=== PATIENT | male | born 1950 | race Caucasian/White ===

== ENCOUNTER 2023-06-22 09:53 | Outpatient (OUT) | payer MEDICARE, SELFPAY ==
[2023-06-22 11:32] LABS: Prostate Specific Antigen Dx 0.48 ng/mL (<=4.00)
== END 2023-06-22 09:54 | disposition home or self-care (01) ==
PROVIDERS: PCP Family Medicine; Visit Provider Urology
DX: N40.1 Benign prostatic hyperplasia with lower urinary tract symptoms (principal)
CPT/HCPCS: 36415; 84153

== ENCOUNTER 2023-10-08 15:16 | Outpatient (OUT) | payer MEDICARE, SELFPAY ==
--- NOTE | 2023-10-08 | XR_ITS ---
The [address] [address] Patient Name: KAVITA AUSTIN MRN: [id number] date: 1950 Sex: M Assigned Patient Location: [facility] Current Patient Location: Accession/Order Number: [id number] Exam Date: 10/08/2023 15:28 Report Date: 10/09/2023 01:13 At the request of: BARBIE CANSECO Procedure: XR foot LT min 3V PROCEDURE: XR foot LT min 3V HISTORY: LEFT FOOT PAIN COMPARISON: XR foot left 12/18/2022 FINDINGS: BONES:Mechanical fusion the first metatarsophalangeal joint via dorsal plate and screws. Prior fracture of proximal aspect of the plate has now shifted approximately 1 mm. Single screw within head of second metatarsal. Resection of head of second proximal phalanx. SOFT TISSUES:No visible soft tissue swelling. EFFUSION:None visible. OTHER: Negative. XR/XR foot LT min 3V IMPRESSION: 1. Minimal displacement of known surgical plate fracture. Electronically authenticated by: RAZ MATOS Date: 10/09/2023 01:13
--- OUTSIDE RECORDS SUMMARY | 2023-11-12 19:30 | XMS_ITS | CCD ---
Author Name Unknown Address [address] [place] [address] Organization [facility] Care Team Providers Care Yarn Washer Name Role Phone [facility]TH [place]AP[place] Primary Care Physician DO Miguel Astorga Attending Provider MD [place] Primary Care Provider [phone] Miguel Astorga Admitting Unavailable [place] Primary Care Unavailable Miguel Astorga Attending Unavailable Miriam Carpenter Attending Unavailable Miriam Carpenter Admitting Unavailable Naderelisa, North Primary Care Unavailable Miguel Astorga Attending Unavailable Miguel Astorga Admitting Unavailable MD Miriam Carpenter Attending Provider MODESTO ROCHE Attending Unavailable MODESTO ROCHE Admitting Unavailable BRAYDON, DR MARÍA Danielle Consulting Unavailable NADERELisa, DR NORTH Hines Primary Care Unavailable MODESTO ROCHE Consulting Unavailable SOLARES ., DR HURST Attending Unavailable SOLARES ., DR HURST Admitting Unavailable NADERER, DR NORTH Hines Primary Care Unavailable SOLARES ., DR HURST Consulting Unavailable BARBIE CANSECO Consulting Unavailable BARBIE CANSECO Attending Unavailable BARBIE CANSECO Admitting Unavailable NADERER, DR NORTH Hines Primary Care Unavailable NADERER, DR NORTH Hines Attending Unavailable NADERER, DR NORTH Hines Admitting Unavailable NADERER, DR NORTH Hines Primary Care Unavailable WEST, DR MARÍA Danielle Consulting Unavailable TAVARES, DR NORTH Hines Consulting Unavailable BARBIE CANSECO Attending Unavailable BARBIE CANSECO Admitting Unavailable NADERER, DR NORTH Hines Primary Care Unavailable MATTHIAS DE DIOS Attending Unavailable MARIA A .MATTHIAS Admitting Unavailable NADERELisa, DR NORTH Hines Primary Care Unavailable JOCELYN LOVE Consulting Unavailable MARIA A ., MATTHIAS Consulting Unavailable ASMITA CLARK Consulting Unavailable BARBIE CANSECO Attending Unavailable HIGHLANDER, BARBIE Chávez Admitting Unavailable NADERER, DR NORTH Hines Primary Care Unavailable WEST, DR MARÍA Danielle Consulting Unavailable HIGHLANDER, BARBIE Chávez Consulting Unavailable BLAKE ., LAW FAIR Consulting Unavailable MORMICHEL, LOUANN Consulting Unavailable MARC, WILMAR MULLINS Consulting Unava dav FLOOD, ROBBY Palmer Consulting Unavailable NADERER, DR NORTH Hines Primary Care Unavailable GRECHNY ., MORIS FISHER Consulting Unavailabl e REINECK, DR ESAU Mccauley Admitting Unavailabl e REINECK, DR ESAU Mccauley Attending Unavailabl e NADERER, DR NORTH Hines Consulting Unavailable NADERER, DR NORTH Hines Attending Unavailable NADERER, DR NORTH Hines Admitting Unavailable NADERER, DR NORTH Hines Primary Care Unavailable ZIEBER, DR RAZ Gonzalez Consulting Unavailable KALEY, MODESTO Attending Unavailable KALEY, MODESTO Admitting Unavailable NADERER, DR NORTH Hines Primary Care Unavailable KALEY, MODESTO Consulting Unavailable KALEY, MODESTO Admitting Unavailable NADERER, DR NORTH Hines Primary Care Unavailable KALEY, MODESTO Attending Unavailable WEST, DR MARÍA Danielle Consulting Unavailable KALEY, MODESTO Consulting Unavailable HIGHLANDER, BARBIE Chávez Attending Unavailable NADERER, DR NORTH Hines Primary Care Unavailable HIGHLANDER, BARBIE Chávez Admitting Unavailable WEST, DR MARÍA Danielle Consulting Unavailable HIGHLANDER, BARBIE Chávez Consulting Unavailable NADERER, DR NORTH Hines Primary Care Unavailable NADERER, DR NORTH Hines Consulting Unavailable NADERER, DR NORTH Hiens Attending Unavailable NADERER, DR NORTH Hines Admitting Unavailable KALEY, MODESTO Admitting Unavailable NADERER, DR NORTH Hines Primary Care Unavailable KALEY, MODESTO Attending Unavailable ZIEBER, DR RAZ Gonzalez Consulting Unavailable KALEY, MODESTO Consulting Unavailable KALEY, MODESTO Admitting Unavailable NADERER, DR NORTH Hines Primary Care Unavailable KALEY, MODESTO Attending Unavailable ZIEBER, DR RAZ Gonzalez Consulting Unavailable KALEY, MODESTO Consulting Unavailable Natali SOLARES Attending Unavailable ESEQUIEL, Natali Gonzalez Attending Unavailable BRENNAN, TIAGO Admitting Unavailable BRENNAN, TIAGO Attending Unavailable BARAZI, ANUPAM Attending Unavailable BRENNAN, TIAGO Attending Unavailable BARAZI, ANUPAM Attending Unavailable BARAZI, ANUPAM Attending Unavailable Allergies Allergy Classification Reported Allergen(s) Allergy Type Date of Onset Reaction(s) Facility (1 source) No Known Medication Allergies; Translations: [No Known Medication Allergies] Propensity to adverse reactions (disorder) [facility] Repository Medications Current Medications Medication Drug Class(es) Dates Sig (Normalized) Sig (Original) Aspirin (2 sources) Platelet Aggregation Inhibitor, Nonsteroidal Anti-inflammatory Drug Start: 10-28-2019 aspirin 325 mg, Refills(s) 0 Start Date: 10/28/19 Status: Ordered 24 hr dilTIAZem hydrochloride 180 mg extended release oral tablet (4 sources) Calcium Channel Neeta Start: 04-19-2022 take 180 mg by mouth once daily Diltiazem Hcl Active 180 MG PO Daily April 19, 2022 3:23pm Start: 10-28-2019 Diltiazem Dilt iazem Start Date: 10/28/19 Status: Ordered DilTIAZem (Eqv-Dilacor XR) 180 mg/24 hours oral capsule, extended release (1 source) Start: 06-24-2023 DilTIAZem (Eqv-Dilacor XR) 180 mg/24 hours oral capsule, extended release Refills(s) 0 Start Date: 06/24/23 Status: Ordered doxepin hydrochloride 50 mg oral capsule (5 sources) Tricyclic Antidepressant Start: 04-19-2022 take 50 mg by mouth once daily at bedtime Doxepin Active 50 MG PO Daily at bedtime April 19, 2022 3:23pm Start: 08-21-2021 doxepin 25 mg Cap Refills(s) 0 Start Date: 08/21/21 Status: Ordered [facility] (3 sources) Start: 04-19-2022 take 1 capsule by mo [facility] once daily [facility] Active 1 CAP PO Daily April 19, 2022 3:23pm Start: 04-19-2022 take 1 capsule by mouth once d aily [facility] Active 1 CAP PO Daily April 19, 2022 12:00am finasteride 5 mg oral tablet (5 sources) 5-alpha Reductase Inhibitor Start: 09-05-2022 take 1 tablet by mouth once daily finasteride 5 mg Tab 5 mg = 1 tab(s), Oral, Daily, # 90 tab(s), Refills(s) 3, Pharmacy: [facility], 189, cm, 05/07/22 14:58:00 EDT, Height/Length Dosing, 129, kg, 05/07/22 14:58:00 EDT, Weight Dosing Start Date: 09/05/22 Status: Ordered Start: 08-31-2021 End: 08-26-2022 take 5 mg by mouth once daily Finasteride Active 5 MG PO Daily April 19, 2022 12:00am potassium citrate 99 mg oral tablet (3 sources) Start: 04-19-2022 take 99 mg by mouth at bedtime Potassium Citrate Active 99 MG PO Bedtime April 19, 2022 3:23pm rOPINIRole 2 mg oral tablet (5 sources) Nonergot Dopamine Agonist Start: 04-19-2022 take 2 mg by mouth once daily at bedtime Ropinirole Active 2 MG PO Daily at bedtime April 19, 2022 3:23pm Start: 10-28-2019 ropinirole 1 m g, Oral, Refills(s) 0 Start Date: 10/28/19 Status: Ordered sildenafil 100 mg oral tablet (1 source) Phosphodiesterase 5 Inhibitor Start: 05-07-2022 take 1 tablet by mouth once daily Viagra 100 mg Tab 100 mg = 1 tab(s), Oral, Daily, Take 1 hour prior to sexual relations, # 30 tab(s), Refills(s) 2, [facility]: [facility], 189, cm, 05/07/22 14:58:00 EDT, Height/Length Dosing, 129, kg, 05/07/22 14:58:00 EDT, Weight Dosing Start Date: 05/07/22 Status: Ordered tadalafil 20 mg oral tablet (1 source) Phosphodiesterase 5 Inhibitor Start: 06-24-2023 take 1 tablet by mouth once daily Cialis 20 mg Tab 20 mg = 1 tab(s), Oral, Daily, # 39 tab(s), Refills(s) 2, Pharmacy: [id number], 189, cm, 05/07/22 14:58:00 EDT, Height/Length Dosing, 107, kg, 06/24/23 15:49:00 EDT, Weight Dosing Start Date: 06/24/23 Status: Ordered tamsulosin hydrochloride 0.4 mg oral capsule (5 sources) alpha-Adrenergic Neeta Start: 04-02-2023 take 1 capsule by mouth once daily Flomax 0.4 mg Cap 0.4 mg = 1 cap(s), Oral, Daily, # 90 cap(s), Refills(s) 3, Pharmacy: [facility], 189, cm, 05/07/22 14:58:00 EDT, Height/Length Dosing, 129, kg, 05/07/22 14:58:00 EDT, Weight Dosing Start Date: 04/02/23 Status: Ordered Start: 04-06-2022 take 0.4 mg by mouth once frank y Tamsulosin Active 0.4 MG PO Daily April 19, 2022 12:00am Problems Active Problems Problem Classification Problem Date Documented Date Episodic/Chronic Acquired foot deformities (7 sources) Hallux rigidus, left foot; Translations: [Other hammer toe(s) (acquired), left foot] Onset: 10-08-2022 Chronic Cardiac dysrhythmias (6 sources) Atrial fibrillation; Translations: [Paroxysmal atrial fibrillation] Onset: 12-10-2022 10-28-2019 Chronic Diabetes mellitus without complication (4 sources) Prediabetes; Translations: [PREDIABETES] Onset: 03-06-2023 Episodic Disorders of lipid metabolism (1 source) Hyperlipidemia, unspecified; Translations: [HYPERLIPIDEMIA UNSPECIFIED] Onset: 03-11-2023 Chronic Esophageal disorders (1 source) Gastro-esophageal reflux disease without esophagitis; Translations: [GERD WITHOUT ESOPHAGITIS] Onset: 12-10-2022 Chronic Heart valve disorders (1 source) Rheumatic disorders of both mitral and tricuspid valves; Translations: [RHEUMATIC D/O MITRAL TRICUSPID VALV] Onset: 03-17-2023 Chronic Hyperplasia of prostate (6 sources) Benign prostatic hypertrophy with outflow obstruction; Translations: [Benign prostatic hyperplasia with lower urinary tract symptoms] Onset: 05-03-2022 Chronic Inflammatory conditions of male genital organs (4 sources) Chronic prostatitis; Translations: [Chronic prostatitis] Onset: 05-07-2022 Chronic Inflammatory conditions of male genital organs (2 sources) Epididymitis 10-28-2019 Episodic Osteoarthritis (1 source) Unspecified osteoarthritis, unspecified site; Translations: [UNSPECIFIED OSTEOARTHRITIS UNS SITE] Onset: 12-10-2022 Chronic Other aftercare (1 source) Other half-way (current) drug therapy; Translations: [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 THERAPY] Onset: 03-11-2023 Episodic Other connective tissue disease (1 source) Presence of right artificial hip joint; Translations: [PRESENCE RIGHT ARTIFICIAL HIP JOINT] Onset: 12-10-2022 Chronic Other diseases of kidney and ureters (1 source) Urinary tract obstruction; Translations: [Other obstructive and reflux uropathy] Onset: 05-07-2022 Episodic Other diseases of veins and lymphatics (2 sources) Varicocele 10-28-2019 Episodic Other hereditary and degenerative nervous system conditions (1 source) Restless legs syndrome; Translations: [RESTLESS LEGS SYNDROME] Onset: 12-10-2022 Chronic Other male genital disorders (6 sources) Male erectile dysfunction, unspecified; Translations: [Erectile dysfunction] Onset: 04-27-2022 Chronic Other male genital disorders (2 sources) Impotence 10-30-2019 Chronic Other male genital disorders (2 sources) Impotence of organic origin 10-28-2019 Chronic Other male genital disorders (2 sources) Pain in testicle 10-30-2019 Episodic Other nutritional; endocrine; and metabolic disorders (1 source) Obesity, unspecified; Translations: [OBESITY UNSPECIFIED] Onset: 03-11-2023 Chronic Residual codes; unclassified (1 source) Obstructive sleep apnea (adult) (pediatric); Translations: [OBSTRUCTIVE SLEEP APNEA] Onset: 12-10-2022 Chronic Residual codes; unclassified (4 sources) Family history of malignant neoplasm of kidney; Translations: [Family history of malignant neoplasm of kidney] Onset: 05-07-2022 Episodic Residual codes; unclassified (2 sources) H/O: anticoagulant therapy 10-30-2019 Episodic Syncope (1 source) Syncope and collapse; Translations: [SYNCOPE AND COLLAPSE] Onset: 03-17-2023 Episodic Unclassified (1 source) Infection following a procedure, other surgical site, initial encounter; Translations: [Infection following a procedure, other surgical site, initial encounter] Onset: 03-18-2023 Unclassified (1 source) Z42.8 - Encounter for other plastic and reconstructive surgery following medical procedure or healed injury; Translations: [Z42.8 - Encounter for other plastic and reconstructive surgery following medical procedure or healed injury] Onset: 04-20-2022 Unclassified (1 source) Z01.812 - Encounter for preprocedural laboratory examination; Translations: [Z01.812 - Encounter for preprocedural laboratory examination] Onset: 04-19-2022 Unclassified (1 source) PERSONAL HISTORY OF COVID-19; Translations: [PERSONAL HISTORY OF COVID-19] Onset: 12-10-2022 Unclassified (4 sources) CONTACT W/AND (SUSP) EXPOS COVID-19; Translations: [CONTACT W/AND (SUSP) EXPOS COVID-19] Onset: 06-06-2022 Unclassified (2 sources) Other persistent atrial fibrillation; Translations: [Other persistent atrial fibrillation] Onset: 02-01-2023 Past or Other Problems Problem Classification Problem Date Documented Date Episodic/Chronic Complications of surgical procedures or medical care (4 sources) Pseudarthrosis after fusion or arthrodesis; Translations: [PSEUDARTHROSIS AFTER FUS/ARTHRODSIS] Onset: 12-20-2022 Episodic Conditions associated with dizziness or vertigo (6 sources) Dizziness and giddiness; Translations: [DIZZINESS AND GIDDINESS] Onset: 03-08-2023 Episodic E Codes: Cut/pierceb (1 source) Contact with workbench tool, initial encounter; Translations: [CONTACT W/WORKBENCH TOOL INIT ENC] Onset: 12-10-2022 Episodic Immunizations and screening for infectious disease (1 source) Encounter for immunization; Translations: [ENCOUNTER FOR IMMUNIZATION] Onset: 12-10-2022 Episodic Open wounds of extremities (4 sources) Laceration without foreign body of left thumb without damage to nail, initial encounter; Translations: [LAC NO FB LT THUMB NO DMG NAIL INIT] Onset: 12-06-2022 Episodic Other aftercare (1 source) [facility] (current) use of aspirin; Translations: [RETIREMENT CURRENT USE OF ASPIRIN] Onset: 12-10-2022 Episodic Other and unspecified benign neoplasm (1 source) Personal history of colonic polyps; Translations: [PERSONAL HISTORY OF COLONIC POLYPS] Onset: 12-10-2022 Episodic Other connective tissue disease (5 sources) Pain in left foot; Translations: [PAIN IN LEFT FOOT] Onset: 10-08-2022 Episodic Other connective tissue disease (4 sources) Pain in right foot; Translations: [PAIN IN RIGHT FOOT] Onset: 08-01-2022 Episodic Other connective tissue disease (1 source) Arthrodesis status; Translations: [ARTHRODESIS STATUS] Onset: 05-17-2022 Episodic Unclassified (1 source) CONTACT W/AND (SUSP) EXPOS COVID-19; Translations: [CONTACT W/AND (SUSP) EXPOS COVID-19] Onset: 06-04-2022 Results Test Name Value Interpretation Reference Range Facil ity Office Visiton 07-30-2023 Follow-up visit [id number] Hannah Manuel 1950 M Date Provider Department Center 07/30/2023 Vandana-ANUPAM [facility] Family History Problem Relation Age of Onset Other Mother Coronary artery disease Mother Other Father Family Status - Relation Status Age at Mother Father Level of Service:56474 GA OFFICE/OUTPATIENT ESTABLISHED LOW MDM 20-29 MIN Normal [facility] Lab Reportson 06-25-2023 Lab Reports [id number] D:127 Normal [facility] Ambulatory Visit Summaryon 0 06-24-2023 Ambulatory Visit Summary OSCAR MANUEL :1950 Visit Date:06/24/2023 Ambulatory Visit Instructions Your Diagnosis BPH with obstruction/lower urinary tract symptoms Chronic prostatitis Family history of kidney cancer Organic impotence Tests Performed Urnls Dip Stick Auto w/o Microscopy POC 16016 Your Care Team Attending Physician - ESEQUIEL RUSSELL, Natali Gonzalez Primary Care Physician - NORTH CHAPIN MD This Is Your Medications List finasteride (finasteride 5 mg Tab) tadalafil (Cialis 20 mg Tab) tamsulosin (Flomax 0.4 mg Cap) Contact prescribing physician if questions or concerns aspirin diltiazem (DilTIAZem (Eqv-Dilacor XR) 180 mg/24 hours oral capsule, extended release) doxepin (doxepin 25 mg Cap) ropinirole [Image Removed: STOP]Stop taking these medications sildenafil (Viagra 100 mg Tab) Procedures Performed Colonoscopy, Foot, Hip replacement, Removal of Basal Cell on Nose, Repair of inguinal hernia, Titanium Plate Left Arm, Tonsillectomy with adenoidectomy. What to do next Scheduled Follow-Up Appointments Saturday 3:00 PM EDT With: ESEQUIEL RUSSELL, Natali Gonzalez Where: [facility] Patient Educationon 06-24-20 23 Patient Education Urology Benign Prostatic Hyperplasia Benign prostatic hyperplasia (BPH) is an enlarged prostate gland that is caused by the normal aging process. The prostate may get bigger as a man gets older. The condition is not caused by cancer. The prostate is a walnut-sized gland that is involved in the production of semen. It is located in front of the rectum and below the bladder. The bladder stores urine. The urethra carries stored urine out of the body. An enlarged prostate can press on the urethra. This can make it harder to pass urine. The buildup of urine in the bladder can cause infection. Back pressure and infection may progress to bladder damage and kidney (renal) failure. What are the causes? This condition is part of the normal aging process. However, not all men develop problems from this condition. If the prostate enlarges away from the urethra, urine flow will not be blocked. If it enlarges toward the urethra and compresses it, there will be problems passing urine. What increases the risk? This condition is more likely to develop in men older than 50 years. What are the signs or symptoms? Symptoms of this condition include: ? Getting up often during the night to urinate. ? Needing to urinate frequently during the day. ? Difficulty starting urine flow. ? Decrease in size and strength of your urine stream. ? Leaking (dribbling) after urinating. ? Inability to pass urine. This needs immediate treatment. ? Inability to completely empty your bladder. ? Pain when you pass urine. This is more common if there is also an infection. ? Urinary tract infection (UTI). How is this diagnosed? This condition is diagnosed based on your medical history, a physical exam, and your symptoms. Tests will also be done, such as: ? A post-void bladder scan. This measures any amount of urine that may remain in your bladder after you finish urinating. ? A digital rectal exam. In a rectal exam, your health care provider checks your prostate by putting a lubricated, gloved finger into your rectum to feel the back of your prostate gland. This exam detects the size of your gland and any abnormal lumps or growths. ? An exam of your urine (urinalysis). ? A prostate specific antigen (PSA) screening. This is a blood test used to screen for prostate cancer. ? An ultrasound. This test uses sound waves to electronically produce a picture of your prostate gland. Your health care provider may refer you to a specialist in kidney and prostate diseases (urologist). How is this treated? Once symptoms begin, your health care provider will monitor your condition (active surveillance or watchful waiting). Treatment for this condition will depend on the severity of your condition. Treatment may include: ? Observation and yearly exams. This may be the only treatment needed if your condition and symptoms are mild. ? Medicines to relieve your symptoms, including: ? Medicines to shrink the prostate. ? Medicines to relax the muscle of the prostate. ? Surgery in severe cases. Surgery may include: ? Prostatectomy. In this procedure, the prostate tissue is removed completely through an open incision or with a laparoscope or robotics. ? Transurethral resection of the prostate (TURP). In this procedure, a tool is inserted through the opening at the tip of the penis (urethra). It is used to cut away tissue of the inner core of the prostate. The pieces are removed through the same opening of the penis. This removes the blockage. ? Transurethral incision (TUIP). In this procedure, small cuts are made in the prostate. This lessens the prostate's pressure on the urethra. ? Transurethral microwave thermotherapy (TUMT). This procedure uses microwaves to create heat. The heat destroys and removes a small amount of prostate tissue. ? Transurethral needle ablation (TUNA). This procedure uses radio frequencies to destroy and remove a small amount of prostate tissue. ? Interstitial laser coagulation (ILC). This procedure uses a laser to destroy and remove a small amount of prostate tissue. ? Transurethral electrovaporization (TUVP). This procedure uses electrodes to destroy and remove a small amount of prostate tissue. ? Prostatic urethral lift. This procedure inserts an implant to push the lobes of the prostate away from the urethra. Follow these instructions at home: ? Take [id number]-rbddsbd and prescription medicines only as told by your health care provider. ? Monitor your symptoms for any changes. Contact your health care provider with any changes. ? Avoid drinking large amounts of liquid before going to bed or out in public. ? Avoid or reduce how much caffeine or alcohol you drink. ? Give yourself time when you urinate. ? Keep all follow-up visits. This is important. Contact a health care provider if: ? You have unexplained back pain. ? Your symptoms do not get better with treatment. ? You develop side effects from the medicine (more content not included)... Normal [facility] Reminderson 06-24-2023 Reminders - From: Katheryn Fernandez To: ALEXANDRA Solares; Sent: 06/24/2023 16:41:34 EDT Show up: 05/24/2024 16:41:00 EDT Subject: PSA Reminder Message Please Remember to:_have pt get PSA (done at [facility]) prior to appt. Normal [facility] Urology Office/Clinic Noteon 06-24-2023 Urology Office/Clinic Note Chief Complaint 1yr HPI Staff 1yr PSA DX: Chronic Prostatitis, BPH, Family Hx of Kidney Cancer (father) & Organic Impotence. *Tamsulosin 0.4mg QD & Finasteride 5mg QD therapy. Viagra 100mg PRN at time of last encounter. PSA 06/22/23- 0.48 Denies pain/burning and visible blood in urine. Denies prostate infection since last encounter. OK with Viagra therapy. Has tried generic Cialis in past, thinks that worked better. Would like to try again. (Cialis 20mg PRN 10/30/19.... took until 08/21/21 when he was started on 4P injections-pt did not like injections. He did not use.) Denies all other concerns at this time. History of Present Illness Tests reviewed: reviewed UA, PSA I have reviewed the previous health record information and history for this patient from Dr. Solares. I have reviewed and verified the staff HPI to be accurate for this encounter. There have been no associated fever, chills, flank pain, or blood in the urine. Denies any urinary infections since last encounter. Review of Systems PHQ Score Initial Depression Screen Score: 0 ROS - Provider Constitutional: denies weight loss, denies hot flashes. Eyes: denies eye problems. Gastrointestinal: denies nausea, denies vomiting. Cardiovascular: denies chest pain or angina. Integumentary: no dryness Musculoskeletal: denies musculoskeletal symptoms. ENMT: denies otolaryngeal symptoms. Respiratory: no shortness of breath. Heme/Lymph: denies easy bleeding tendency, denies easy bruising tendency. Psychiatric: no confusion, no anxiety. Genitourinary: See HPI. Physical Exam General Appearance: alert, no distress, well nourished, well developed male. Genitourinary: normal scrotum, normal testes, normal urethra, normal epididymis, normal vas deferens/spermatic cord. Flank Pain: none. Bladder: nonpalpable. Prostate: normal prostate, estimated weight 40 gms, no hard nodule observed. Assessment/Plan 1. BPH with obstruction/lower urinary tract symptoms (N40.1: Benign prostatic hyperplasia with lower urinary tract symptoms) Pt is currently taking Tamsulosin 0.4mg QD and Finasteride 5mg QD. Denies any bothersome urinary complications at this time. UA today negative for blood and infection. Denies family hx of prostate ca. PSA 05/09/21 - 0.70 04/27/22 - 0.49 (Finasteride 0.98) 06/22/23 - 0.48 (Finasteride 0.96) Follow up in 1 year with PSA. 2. Chronic prostatitis (N41.1: Chronic prostatitis) Denies any recent infections. UA today negative for blood and infection. 3. Family history of kidney cancer (Z80.51: Family history of malignant neoplasm of kidney) Father 4. 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 Pt is currently wishes to take Cialis 20mg PRN. Refill sent to pharmacy. All questions/concerns were discussed. Pt to call the office if he encounters any issues prior. Pt acknowledges understanding. Follow-up With When Contact Information ESEQUIEL RUSSELL, Natali Gonzalez, URL [facility] [address], [place] [address]- [phone] Additional Instructions: 1 yr w/ PSA Patient Education Benign Prostatic Hyperplasia I, Katheryn Fernandez, personally scribed for Dr. Solares on 06/24/2023 16:39:21. . Documentation recorded by the scribe, Katheryn Fernandez, accurately reflects the services(s) I performed and decisions made by me. Authenticated by Dr. Solares on 06/24/2023 16:41:10. 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 Medications aspirin, 325 mg DilTIAZem (Eqv-Dilacor XR) 180 mg/24 hours oral capsule, extended release doxepin 25 mg Cap finasteride 5 mg Tab, 5 mg= 1 tab(s), Oral, Daily, 3 refills Flomax 0.4 mg Cap, 0.4 mg= 1 cap(s), Oral, Daily, 3 refills ropinirole, 1 mg, Oral Viagra 100 mg Tab, 100 mg= 1 tab(s), Oral, Daily, 2 refills Allergies No Known Medication Allergies Social History Alcohol - Low Risk, 10/28/2019 Tobacco Never (less than 100 in lifetime) Tobacco Use:. Never Smokeless Tobacco Use:. Household tobacco concerns: No., 06/24/2023 Family History Breast: Mother. Kidney Cancer: Father. Kidney stones: Negative: Mother, Father, Sister and Brother. Primary malignant neoplasm of female breast: Mother. Renal cancer: Father. Immunizations Vaccine Date Status Comments influenza virus vaccine, inactivated 09/02/2022 Recorded SARS-CoV-2 (COVID-19) mRNA BNT-16 (more content not included)... Normal [facility] Comment on above: Result Comment: Elec tronically Signed By: Natali SOLARES MD\.br\Date and Time Signed: 06/24/23 16:41 EDT\.br\Electronically Co-Signed By: Katheryn Fernandez\.br\Date and Time Co-Signed: 06/24/23 16:39 EDT Superficial Wound Cultureon 03-18-2023 Superficial Wound Culture ORGANISM: Methicillin Resis Staph Aureus (O:MRSA) Quantity of Growth Moderate Growth Aerobic DEXTER Charge (PCMIC38) SUSCEPTIBILITY ORGANISM: O:MRSA ANTIBIOTIC INTERPRETATION DEXTER Azithromycin R >4 Ceftaroline S <0.5 Ciprofloxacin R >2 Clindamycin R <0.25 Daptomycin S <0.5 Linezolid S 4 Oxacillin R >2 Penicillin R >2 Tetracycline S <4 Trimethoprim/Sulfamethoxazole S <0.5 Vancomycin S 1 S = SUSCEPTIBLE I = INTERMEDIATE R = RESISTANT BLANK = DATA NOT AVAILABLE, OR DRUG NOT ADVISABLE OR TESTED R* = RESISTANCE DUE TO EXTENDED SPECTRUM BETA-LACTAMASES ESBL = EXTENDED SPECTRUM BETA-LACTAMASE TFG = THYMIDINE-DEPENDENT STRAIN JULIANNA = BETA-LACTAMASE POSITIVE IB = INDUCIBLE BETA-LACTAMASE. APPEARS IN PLACE OF 'S' WITH SPECIES KNOWN TO POSSESS INDUCIBLE BETA-LACTAMASES. POTENTIALLY THEY MAY BECOME RESISTANT TO ALL B-LACTAM DRUGS. PERFORMED BY: [place] [address] PATHOLOGIST ASSISTANT ART DIRECTOR ISABELLA MCKEON M.D. [facility] Comment on above: Performed By: #### C USUP #### [address] ECHOCARDIO M/2D COMPLETEon 0 03-12-2023 ECHOCARDIO M/2D COMPLETE Patient: OSCAR PATEL Exam Date: 03/12/2023 : 1950 Gender:M Ordering : DR NORTH CHAPIN . Admission #: [id number] Family : TIAGO WILBURN MD Order #: [id number] CLICK HERE TO VIEW EXAM ECHOCARDIOGRAM REPORT PROCEDURE: CARDIO PULMONARY ECHOCARDIO M/2D COMP INDICATIONS: Dizziness with near syncope, atrial fibrillation COMPARISON: None. DESCRIPTION: COMPLETE ECHOCARDIOGRAM Real-time transthoracic echocardiography with 2D, M-mode, spectral and color flow Doppler performed. QUALITY: Technical quality was good. LEFT VENTRICLE: Normal chamber size. Proximal septal hypertrophy (sigmoid septum). Normal systolic function. LV EF: Normal left ventricular ejection fraction, (>55%). DIASTOLIC: Normal diastolic function. ATRIAL SEPTUM: LEFT ATRIUM: Moderate dilatation. RIGHT ATRIUM: Moderate dilatation. RIGHT VENTRICLE: Mild dilatation. Normal right ventricular systolic function. TRICUSPID VALVE: Normal mobility and thickness. No stenosis with mild regurgitation. No evidence of pulmonary hypertension. RVSP 28 mmHg MITRAL VALVE: Normal mobility and thickness. No evidence of mitral valve stenosis. There is no mitral annular calcification. Mild mitral regurgitation. AORTIC VALVE: Normal trileaflet appearance. Thickened aortic valve. Normal leaflet mobility. No evidence of aortic valve stenosis. No aortic regurgitation. AORTIC ROOT: Normal diameter and appearance. Aortic sinuses are dilated (4.0 cm) PULMONIC VALVE: Normal thickness and mobility. No stenosis. No regurgitation. PERICARDIUM: No evidence of pericardial effusion. IVC: Collapses with inspirations. IVC is normal in size. PLEURA: CONCLUSION: 1. Normal left ventricular systolic function. LVEF is 55 to 60%. 2. Mildly dilated right ventricle with normal systolic function. 3. Moderate biatrial dilatation. 4. Mild mitral and tricuspid regurgitation. 5. Normal diastolic function. 6. Normal right-sided pressures. 7. The aortic root is mildly dilated measuring 4.0 cm. Adult Echocardiography Procedure Report Left Ventricle LVEDD (3.7 - 5.6 cm): 4.68 cm LVESD (2.2 - 4.0 cm): 3.32 cm LVIVS thickness (0.6 - 1.2 cm): 1.69 cm LVPW thickness (0.5 - 1.0 cm): 0.99 cm e': 0.13 m/s E - e': 6.58 LVOT Max Gradient: 4.37 mm[Hg] Peak Velocity (LVOT): 1.05 m/s Mean Velocity (LVOT): 0.62 m/s LVOT Diameter 2.49 cm Left Ventricular Ejection Fraction: 55-60 % Left Atrium LA Volume Index (2D A2C): 100.46 ml, 100.46 ml Left Atrium Systolic Dimension: 5.00 cm Mitral Valve MV E to A Ratio: 1.19 Mitral Valve A-Wave Peak Velocity: 0.69 m/s Mitral Valve E-Wave Peak Velocity: 0.82 m/s Right Ventricle Aorta AO Root Diam: 3.98 cm Aortic Valve AoV Area (Peak Rikki): 4.30 cm2, 4.30 cm2 AoV Area (VTI): 5.39 cm2, 5.39 cm2 Peak Velocity(Antegrade Flow): 1.19 m/s Peak Gradient(Antegrade Flow): 5.64 mm[Hg] Mean Velocity(Antegrade Flow): 0.80 m/s Mean Gradient(Antegrade Flow): 2.97 mm[Hg] Velocity Time Integral: 23.20 cm Tricuspid Valve Peak Velocity (Regurgitant Flow): 2.52 m/s, 1.99 m/s, 2.36 m/s Peak Velocity: 0.57 m/s Pulmonic Valve Peak Velocity: 0.77 m/s, 0.76 m/s Peak Gradient: 2.35 mm[Hg], 2.29 mm[Hg] Right Atrium Right Atrium Systolic Pressure: 65.50 ml, 65.50 ml Dictated by: Dennys Solorio M.D. on 03/12/2023 at 18:38 Approved by: Dennys Solorio M.D. on 03/12/2023 at 18:41 Normal [facility] US CAROTID ART BILon -18-2 023 US CAROTID ART MOSIES EXAMINATION: US COOK TID ART MOISES HISTORY: Dizziness and giddiness COMPARISON: No relevant comparison available. TECHNIQUE: Duplex Doppler ultrasound analysis of carotid and vertebral arteries. . Bilateral carotid arterial duplex examination was performed using B-mode, color flow and spectral analysis. Carotid stenosis is reported according to validated velocity parameters, similar to NASCET criteria. FINDINGS: RIGHT CAROTID ARTERY Mild atherosclerotic plaque Subclavian: PSV: 127.9 cm/s cm/s EDV: 0.0 cm/s cm/s CCA: Prox: PSV: 177.5 cm/s cm/s EDV: 12.6 cm/s cm/s Mid: PSV: 100.0 cm/s cm/s EDV: 22.0 cm/s cm/s Distal: PSV: 80.5 cm/s cm/s EDV: 16.4 cm/s cm/s BULB: PSV: 79.2 cm/s cm/s EDV: 16.2 cm/s cm/s ICA: Prox: PSV: 69.4 cm/s cm/s EDV: 16.2 cm/s cm/s Mid: PSV: 55.5 cm/s cm/s EDV: 16.1 cm/s cm/s Distal: PSV: 51.6 cm/s cm/s EDV: 16.1 cm/s cm/s ECA: PSV: 144.7 cm/s cm/s EDV: 13.7 cm/s cm/s VERTEBRAL: PSV: 93.4 cm/s cm/s EDV: 14.4 cm/s cm/s ICA/CCA ratio: PSV: 1.0 EDV: 1.0 LEFT CAROTID ARTERY Mild atherosclerotic plaque Subclavian: PSV: 210.8 cm/s cm/s EDV: 0.0 cm/s CCA: Prox: PSV: 259.9 cm/s cm/s EDV: 34.6 cm/s Mid: PSV: 92.5 cm/s cm/s EDV: 11.7 cm/s Distal: PSV: 78.6 cm/s cm/s EDV: 17.3 cm/s BULB: PSV: 61.9 cm/s cm/s EDV: 14.5 cm/s ICA: Prox: PSV: 65.5 cm/s cm/s EDV: 16.7 cm/s Mid: PSV: 74.8 cm/s cm/s EDV: 21.4 cm/s Distal: PSV: 72.5 cm/s cm/s EDV: 28.3 cm/s ECA: PSV: 114.3 cm/s cm/s EDV: 12.1 cm/s VERTEBRAL: PSV: 36.5 cm/s cm/s EDV: 6.8 cm/s ICA/CCA ratio: PSV: 1.0 EDV: 1.2 IMPRESSION: 0-49% flow stenosis bilateral internal carotid arteries Spectral Doppler US Thresholds (Reference: Azeem EG, et al. Radiology 2000; 214:247-252) Stenosis (%) PSV (cm/sec) VICA/VCCA 0-49 <150 <2.5 50-69 150-225 2.5-4.0 >70 >225 >4.0 Electronically authenticated by: MARÍA BRYSON Date: 2023-03-12 15:01 Normal [facility] Telemedicine 03-08-2023 Telemedicine [id number] Hannah Manuel 1950 M Date Provider Department Center 03/08/2023 TIAGO MARTINEZ [facility] Family History Problem Relation Age of Onset Other Mother Coronary artery disease Mother Other Father Family Status - Relation Status Age at Mother Father Level of Service:54380 [place] PHYS/QHP TELEPHONE EVALUATION 21-30 MIN Normal [facility] CBC AUTO DIFFon 03-06-2023 BASO # 0.1 103/ul Normal 0.0-0.1 The [facility] ostal Comment on above: Performed By: #### C BC #### [facility] [address] [address] [address] Sanjuana Kasper Basophils/100 WBC (Bld) 0.9 % Normal 0.2-2.0 [facility] Comment on above: Performed By: #### C BC #### [facility] [address] [address] [address] Sanjuana Kasper EO # 0.3 103/ul Normal 0.0-0.7 [facility] Comment on above: Performed By: #### C BC #### [facility] [address] [place] [address] Dr. Sanjuana Kasper Eosinophils/100 WBC (Bld) 5.0 % Normal 0.9-7.0 [facility] Comment on above: Performed By: #### C BC #### [facility] [address] [address] [address] Sanjuana Kasper Erythrocyte distribution wid th (RBC) [Ratio] 13.5 % Normal 11.0-15.0 The [facility] Comment on above: Performed By: #### C BC #### [facility] [address] [address] [address] Sanjuana Kasper Hematocrit (Bld) [Volume fraction] 41.9 % Critically low 42.0-54.0 The [facility] Comment on above: Performed By: #### C BC #### [facility] [address] [place] [address] Dr. Sanjuana Kasper Hemoglobin (Bld) [Mass/Vol] 13.9 g/dL Critically low 14.0 -18.0 [facility] Comment on above: Performed By: #### C BC #### [facility] [address] [address] [address] Sanjuana Kasper IG # 0.02 10e3/ul Normal 0.00-0.03 [facility] Comment on above: Performed By: #### C BC #### [facility] [address] [place] [address] Dr. Sanjuana Kasper IG % 0.3 % Normal 0.0-0.5 [facility] Comment on above: Performed By: #### C BC #### [facility] [address] [place] [address] Dr. Sanjuana Kasper LYMPH # 1.4 103/ul Normal 1.2-3.8 [facility] Comment on above: Performed By: #### C BC #### [facility] [address] [place] [address] Dr. Sanjuana Kasper Lymphocytes/100 WBC (Bld) 23.8 % Normal 20.5-60.0 [facility] Comment on above: Performed By: #### C BC #### [facility] [address] [place] [address] Dr. Sanjuana Kasper MANUAL DIFF REQ NO Normal [facility] Comment on above: Performed By: #### C BC #### [facility] [address] [place] [address] Dr. Sanjuana Kasper MCH (RBC) [Entitic mass] 29.5 pg Normal 25.9-34.0 [facility] Comment on above: Performed By: #### C BC #### [facility] [address] [place] [address] Dr. Sanjuana Kasper MCHC (RBC) [Mass/Vol] 33.2 g/dL Normal 29.9-35.2 [facility] Comment on above: Performed By: #### C BC #### [facility] [address] [place] [address] Dr. Sanjuana Kasper MCV (RBC) [Entitic vol] 89.0 fL Normal 80.0-94.0 [facility] Comment on above: Performed By: #### C BC #### [facility] [address] [place] [address] Dr. Sanjuana Kasper MONO # 0.4 103/ul Normal 0.3-0.8 [facility] Comment on above: Performed By: #### C BC #### [facility] [address] [place] [address] Dr. Sanjuana Kasper Monocytes/100 WBC (Bld) 7.1 % Normal 1.7-12.0 [facility] Comment on above: Performed By: #### C BC #### [facility] [address] [place] [address] Dr. Sanjuana Kasper NEUT # 3.7 103/ul Normal 1.4-6.5 [facility]ital Comment on above: Performed By: #### C BC #### [facility] [address] [place] [address] Dr. Sanjuana Kasper Neutrophils/100 WBC (Bld) 62.9 % Normal 43.0-75.0 [facility] Comment on above: Performed By: #### C BC #### [facility] [address] [place] [address] Dr. Sanjuana Kasper Platelet mean volume (Bld) [ Entitic vol] 10.6 fL Normal 9.5-13.5 [facility] Comment on above: Performed By: #### C BC #### [facility] [address] [place] [address] Dr. Sanjuana Kasper PLT 259 103/ul Normal 150-450 [facility] Comment on above: Performed By: #### C BC #### [facility] [address] [place] [address] Dr. Sanjuana Kasper RBC 4.71 106/ul Normal 4.70-6.10 [facility] Comment on above: Performed By: #### C BC #### [facility] [address] [place] [address] Dr. Snajuana Kasper WBC 5.8 103/ul Normal 4.0-11.0 [facility] Comment on above: Performed By: #### C BC #### [facility] [address] [place] [address] Dr. Sanjuana Kasper GLYCOHEMOGLOBIN A1Con 2022 ADA RECOMMENDATION SEE BELOW Normal [facility] Comment on above: Result Comment: ADA RECOMMENDED LIMIT 4.0 - 6.0 ADA THERAPEUTIC TARGET < 7.0 ACTION SUGGESTED > 7.0 Performed By: #### A 1C #### [facility] [address] [address] [address] Sanjuana Kasper Glucose [Mass/Vol] 108 mg/dL Normal [facility] [place] Comment on above: Performed By: #### A 1C #### [facility] [address] [address] [address] Sanjuana Kasper HbA1c (Bld) [Mass fraction] 5.4 % Normal 4.5-6.2 [facility] Comment on above: Performed By: #### A 1C #### [facility] [address] [place] [address] Dr. Sanjuana Kasper LIPID PROFILEon 03-06-2023 CHOL-HDL RATIO NORM SEE BELOW Normal [facility] Comment on above: Result Comment: 3.3 - 4.4 LOW RISK 4.4 - 7.1 AVERAGE RISK 7.1 - 11.0 MODERATE RISK >11.0 HIGH RISK Performed By: #### T SH, LIPID, BMP, LIVER #### [facility] [address] [address] [address] Sanjuana Kasper Cholesterol [Mass/Vol] 192 mg/dL Normal <=200 Th [facility] Comment on above: Performed By: #### T SH, LIPID, BMP, LIVER #### [facility] [address] [place] [address] Dr. Sanjuana Kasper Cholesterol in HDL [Mass/Vol] 61 mg/dL Critically high 4 0-60 [facility] Comment on above: Performed By: #### T SH, LIPID, BMP, LIVER #### [facility] [address] [address] [address] Sanjuana Kasper Cholesterol in LDL [Mass/Vol] 122.2 mg/dL Normal [facility] Comment on above: Performed By: #### T SH, LIPID, BMP, LIVER #### [facility] [address] [address] [address] Sanjuana Kasper Cholesterol.total/Cholestero l in HDL [Mass ratio] 3.1 {ratio} Normal [facility] Comment on above: Performed By: #### T SH, LIPID, BMP, LIVER #### [facility] [address] [address] [address] Sanjuana Kasper HDL NORMAL > or = 60 mg/dl - LO W CARDIOVASCULAR RISK <40 mg/dl - HIGH CARDIOVASCULAR RISK Normal [facility] Comment on above: Performed By: #### T SH, LIPID, BMP, LIVER #### [facility] [address] [address] [address] Sanjuana Kasper LDL CALC NORMAL SEE BELOW Normal [facility] Comment on above: Result Comment: <100 mg/dl OPTIMAL 100 - 129 mg/dl NEAR OR ABOVE OPTIMAL 130 - 159 mg/dl BORDERLINE HIGH 160 - 189 mg/dl HIGH >190 mg/dl VERY HIGH Performed By: #### T SH, LIPID, BMP, LIVER #### [facility] [address] [address] [address] Sanjuana Kasper Triglyceride [Mass/Vol] 44 mg/dL Normal <=150 [facility] Comment on above: Performed By: #### T SH, LIPID, BMP, LIVER #### [facility] [address] [address] [address] Sanjuana Kasper VLDL CALC 8.8 mg/dL Normal [facility] Comment on above: Performed By: #### T SH, LIPID, BMP, LIVER #### [facility] [address] [address] [address] Sanjuana Kasper LIVER PROFILEon 03-06-2023 Albumin [Mass/Vol] 3.6 g/dL Normal 3.4-5.0 [facility] [place] Comment on above: Performed By: #### T SH, LIPID, BMP, LIVER ####[facility] [address] [address]Dr. Sanjuana Kasper Albumin/Globulin [Mass ratio] 1.0 {ratio} Normal [facility] Comment on above: Performed By: #### T SH, LIPID, BMP, LIVER ####[facility] [address] [address]Dr. Sanjuana Kasper ALP [Catalytic activity/Vol] 91 U/L Normal 46-116 [facility] Comment on above: Performed By: #### T SH, LIPID, BMP, LIVER ####[facility] [address] [address]Dr. Sanjuana Kasper ALT [Catalytic activity/Vol] 28 U/L Normal 16-63 [facility] Comment on above: Performed By: #### T SH, LIPID, BMP, LIVER ####[facility] [address] [address]Dr. Sanjuana Kasper AST [Catalytic activity/Vol] 16 U/L Normal 15-37 [facility] Comment on above: Performed By: #### T SH, LIPID, BMP, LIVER ####[facility] [address] [address]Dr. Sanjuana Kasper BILI, CONJUGATED 0.1 mg/dL Normal 0.0-0.2 [facility] Comment on above: Performed By: #### T SH, LIPID, BMP, LIVER ####[facility] [address] [address]Dr. Sanjuana Kasper Bilirubin [Mass/Vol] 0.4 mg/dL Normal 0.2-1.0 [facility] Comment on above: Performed By: #### T SH, LIPID, BMP, LIVER ####[facility] [address] [address]Dr. Sanjuana Kasper Globulin (S) [Mass/Vol] 3.6 g/dL Normal [facility] Comment on above: Performed By: #### T SH, LIPID, BMP, LIVER ####[facility] [address] [address]Dr. Sanjuana Kasper Protein [Mass/Vol] 7.2 g/dL Normal 6.4-8.2 [facility] [place] Comment on above: Performed By: #### T SH, LIPID, BMP, LIVER ####[facility] [address] [address]Dr. Sanjuana Kasper PROF CHEM 8 (BAS METB)on Anion gap [Moles/Vol] 12.2 mmol/L Normal [facility] Comment on above: Performed By: #### T SH, LIPID, BMP, LIVER ####[facility] [address] [address]Dr. Sanjuana Kasper Calcium [Mass/Vol] 9.1 mg/dL Normal 8.5-10.1 [facility] Comment on above: Performed By: #### T SH, LIPID, BMP, LIVER ####[facility] [address] [address]Dr. Carlalan Kasper Chloride [Moles/Vol] 106 mmol/L Normal 98-107 [facility] Comment on above: Performed By: #### T SH, LIPID, BMP, LIVER ####[facility] [address] [address]Dr. Sanjuana Kasper CO2 [Moles/Vol] 26.9 mmol/L Normal 21.0-32.0 The [facility] Comment on above: Performed By: #### T SH, LIPID, BMP, LIVER ####[facility] [address] [place], [place] [address]Dr. Carlalan Kasper Creatinine [Mass/Vol] 0.98 mg/dL Normal 0.70-1.30 [facility] Comment on above: Performed By: #### T SH, LIPID, BMP, LIVER ####[facility] [address] [place], [place] [address]Dr. Carlalan Kasper EGFR-AF TANZANIAN >60 Normal >=60 [facility] Comment on above: Performed By: #### T SH, LIPID, BMP, LIVER ####[facility] [address] [place], [place] [address]Dr. Carlalan Kasper EGFR-NON AF TANZANIAN >60 Normal >=60 [facility] Comment on above: Performed By: #### T SH, LIPID, BMP, LIVER ####[facility] [address] [place], [place] [address]Dr. Carlalan Kasper Glucose [Mass/Vol] 94 mg/dL Normal 74-106 [facility] Comment on above: Performed By: #### T SH, LIPID, BMP, LIVER ####[facility] [address] [place], [place] [address]Dr. Yilan Kasper Potassium [Moles/Vol] 4.1 mmol/L Normal 3.5-5.1 [facility] Comment on above: Performed By: #### T SH, LIPID, BMP, LIVER ####[facility] [address] [address]Dr. Sanjuana Kasper Sodium [Moles/Vol] 141 mmol/L Normal 136-145 [facility] [place] Comment on above: Performed By: #### T SH, LIPID, BMP, LIVER ####[facility] [address] [address]Dr. Sanjuana Kasper Urea nitrogen [Mass/Vol] 17.0 mg/dL Normal 7.0-18.0 [facility] Comment on above: Performed By: #### T SH, LIPID, BMP, LIVER ####[facility] [address] [address]Dr. Sanjuana Kasper Urea nitrogen/Creatinine [Mass ratio] 17.3 mg/mg Normal [facility] Comment on above: Performed By: #### T SH, LIPID, BMP, LIVER ####[facility] [address] [address]Dr. Sanjuana Ranjith TSHon 03-06-2023 TSH 1.951 uIU/mL Normal 0.358-3.740 [facility] Comment on above: Performed By: #### T SH, LIPID, BMP, LIVER #### [facility] [address] [place], [place] [address] Dr. Sanjuana Kasper Office Visiton 02-01-2023 Follow-up visit [id number] Hannah Manuel ingrid Hines 1950 M Date Provider Department Center 02/01/2023 Vandana-ANUPAM COOK [facility] Family History Problem Relation Age of Onset Other Mother Coronary artery disease Mother Other Father Family Status - Relation Status Age at Mother Father Level of Service:36109 [place] POSTOP FOLLOW UP VISIT RELATED TO ORIGINAL PX Reason for Visit and Comments: Wound Check [[id number]] Normal [facility] HPon 01-24-2023 [facility] Electrophysiology Consult Note Reason for visit: LOOP HPI: Oscar Manuel is a 72 y.o. year old with past medical history of paroxysmal A. fib with RVR obstructive sleep apnea here for 6-month follow-up. States he is feeling well and has denied any symptoms concerning of A. Fib and denies chest pain, shortness of breath, palpitations, lightheadedness, dizziness, fatigue. Continues to take Cardizem 180 mg and aspirin 325 mg. his [id number] is 1 for age, possibly 2 for masked hypertension masked by Cardizem which was only started for A. Fib. He does not want a blood thinner. This was discussed with him the option of a loop monitor which was offered previously. He states he is unsure what he wants to. Did discuss with him the risk of stroke from A. fib despite not having symptoms. It be difficult to assess if he went to A. fib and being asymptomatic. He had an event monitor in the past which showed PVCs with burden less than 1%. He had occasional atrial tachycardia which was nonsustained but no evidence of A. Fib. After the visit he later called and agreed to doing a loop monitor for A. fib surveillance which will be booked. Prilisa GROVES Mr. Manuel is a 71 y/o M with past medical history of atrial fibrillation that was diagnosed few years ago where he was admitted to [facility] with A. fib with rapid ventricular rate. He was started on Cardizem and converted on his own to sinus rhythm. Subsequent to that he hasn't had any significant episodes but occasionally has felt his heart rate being fast for a very short while. He is otherwise very active with no limitations. Does not endorse any chest pain or shortness of breath and recently had a foot surgery which has limited slightly. He had an Holter monitor placed recently for some palpitations which did not reveal any atrial fibrillation. He is only on aspirin and takes diltiazem which is prescribed by his PCP after initial diagnosis of A. fib. PMHx: PAF and CHERI. He denies any chest pain, SOB, KOENIG, palpitations, orthopnea, PND, lower extremity edema, dizziness/lightheadedness, syncope, issues with bleeding. ----- Holter monitor placed for 48 hours from 12/24/2021 to 12/10/2021 at [facility] was reviewed by me and shows PVC burden of less than 1% and PVC count of 6%. Occasional nonsustained atrial tachycardia few beats seen but no atrial fibrillation noted. No ventricular tachycardia noted EKG 10/17/2021 shows sinus rhythm with normal intervals Echocardiogram done at [place] on 09/06/2021 shows ejection fraction of 60% with no significant valvular issues ECHO 06/05/19 Global left ventricular systolic function is normal (Visually estimated EF 55%). No regional wall motion abnormality. Normal diastolic function. Normal right ventricular systolic function. The right ventricle is mildly enlarged. The left atrium is mildly enlarged. The right atrium is moderately enlarged. Doppler studies suggest normal right sided pressures. No significant valvular abnormalities Stress Echo Conclusions - 10/12/2016 - Assessment: no ischemia-induced wall motion abnormalities (negative stress echo test) - At rest, no wall motion abnormalities - With stress, no ischemia-induced wall motion abnormalities - At rest, normal global systolic LV-function (EF 60%) - With stress, hypercontractility of the left ventricle (EF 75%) - Assessment: normal LV function Stress ECG Conclusions - Overall interpretation: Normal ECG stress test - The Gomez Treadmill Score is + 8 - Low risk of cardiovascular event - Appropriate heart rate response - Normal resting BP - appropriate response - Stress termination reason: Dyspnea - Resting ECG: Normal - No ST depression during the stress test - Arrhythmias seen: ventricular premature beats - Functional capacity is normal (-20 - +19%) PMH: No past medical history on file. PSH: Past Surgical History: Procedure Laterality Date HERNIA REPAIR 03/25/2019 PARTIAL HIP ARTHROPLASTY 07/10/2017 TONSILLECTOMY WRIST SURGERY SH: Social Determinants of Health Tobacco Use: Low Risk Smoking Tobacco Use: Never Smokeless Tobacco Use: Never Passive Exposure: Not on file Alcohol Use: Not on file Financial Resource Strain: Not on file Food Insecurity: Not on file Transportation Needs: Not on file Physical Activity: Not on file Stress: Not on file Social Connections: Not on file Intimate Partner Violence: Not on file Depression: Not on file Housing Stability: Not on file Allergies: No Known Allergies Weight: @WEIGHT@ Visit Vitals BP 134/78 Pulse 59 Resp 18 SpO2 97% Smoking Status Never Meds: No current facility-administered medications on file prior to encounter. Current Outpatient Medications on File Prior to Encounter Medication Sig Dispense Refill aspirin 325 mg tablet in t (more content not included)... 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 TECHNIQUE: Multi-planar CT images were created without IV contrast. Dose reduction techniques were achieved by using automated exposure control and/or adjustment of mA and/or kV according to patient size and/or use of iterative reconstruction technique. FINDINGS: BONES: Mechanical fusion of the first metatarsophalangeal joint via dorsal plate and screws. Nondisplaced fracture line extending transversely through the dorsal plate through the distal screw hole of the proximal set of screw holes. SOFT TISSUES: Negative. No visible soft tissue swelling. EFFUSION: None visible. OTHER: Negative. IMPRESSION: 1. Fracture of the metallic plate securing the first metatarsophalangeal joint. Electronically authenticated by: RAZ MATOS Date: 2022-12-20 14:53 Normal [facility] Office Visiton 12-07-2022 Follow-up visit [id number] Hannah Manuel sharapedro A 1950 M Date Provider Department Center 12/07/2022 Vandana-ANUPAM COOK [facility] Family History Problem Relation Age of Onset Other Mother Coronary artery disease Mother Other Father Family Status - Relation Status Age at Mother Father Level of Service:89569 GA OFFICE/OUTPATIENT ESTABLISHED SF MDM 10-19 MIN Reason for Visit and Comments: Atrial Fibrillation [80] Normal [facility] POINT OF CARE GLUCOSEon 11-0 Glucose [Mass/Vol] 94 mg/dL Normal 74-106 [facility] Comment on above: Performed By: #### P OCGLUC #### [facility] [address] [place], [place] [address] Dr. Sanjuana Kasper XR FOOT LT 2Von 09-27-2022 XR FOOT LT 2V EXAM: XR FOOT LT 2V HISTORY: Pain COMPARISON: 08/01/2022 TECHNIQUE: 31 seconds of fluoroscopy. 9 images FINDINGS: Fluoroscopic images demonstrate fusion of the first metatarsal-phalangeal joint with a dorsal plate and screws. Likely osteotomy and placement of a single screw across the head of the second metatarsal IMPRESSION: First metatarsal-phalangeal joint fusion Electronically authenticated by: MARÍA BRYSON Date: 2022-09-27 18:28 Normal [facility] Covid-19 PCR (CVDTB)on 08-26 SARS-CoV-2 (COVID-19) RNA DAISY+probe Ql (Unsp spec) Not detected Normal NOT DETECTED [facility] Comment on above: Result Comment: This test is not yet approved or cleared by the [place] FDA. When there are no FDA-approved or cleared tests available, and other criteria are met, FDA can make tests available under an emergency access mechanism called an Emergency Use Authorization (EUA). The EUA for this test is supported by the Candor of Health and Human Service's (HHS's) declaration that circumstances exist to justify the emergency use of in vitro diagnostics for the detection and/or diagnosis of the virus that causes COVID-19. This EUA will remain in effect (meaning this test can be used) for the duration of the COVID-19 declaration justifying emergency of IVDs, unless it is terminated or revoked by FDA (after which the test may no longer be used). When diagnostic testing is negative, the possibility of a false negative should be considered in the context of a patient's recent exposures and the presence of clinical signs and symptoms consistent with SARS-CoV-2. Performed By: #### C VDTBH ####[facility] [address] [place], [place] [address]AmDr. Sanjuana Kasper PROF CHEM 8 (BAS METB)on Anion gap [Moles/Vol] 11.6 mmol/L Normal [facility] Comment on above: Performed By: #### B MP ####[facility] [address] [place] [id number]. Sanjuana Kasper Calcium [Mass/Vol] 8.6 mg/dL Normal 8.5-10.1 [facility] [place] Comment on above: Performed By: #### B MP ####[facility] [address] [place] [id number]. Sanjuana Kasper Chloride [Moles/Vol] 107 mmol/L Normal 98-107 [facility] Comment on above: Performed By: #### B MP ####[facility] [address] [place] [address]Dr. Sanjuana Kasper CO2 [Moles/Vol] 26.2 mmol/L Normal 21.0-32.0 [facility] Comment on above: Performed By: #### B MP ####[facility] [address] [place], [place] [address]Dr. Sanjuana Kasper Creatinine [Mass/Vol] 1.28 mg/dL Normal 0.70-1.30 [facility] Comment on above: Performed By: #### B MP ####[facility] [address] [place] [address]Dr. Sanjuana Kasper EGFR-AF TANZANIAN >60 Normal >=60 [facility] Comment on above: Performed By: #### B MP ####[facility] [address] [place] [address]Dr. Sanjuana Ranjith EGFR-NON AF TANZANIAN 56 mL/min/1.73m2 Critically low >=60 [facility] Comment on above: Performed By: #### B MP ####[facility] [address] [place] [address]Dr. Sanjuana Kasper Glucose [Mass/Vol] 121 mg/dL Critically high 74-106 [facility] Comment on above: Performed By: #### B MP ####[facility] [address] [place] [address]Dr. Sanjuana Kasper Potassium [Moles/Vol] 3.8 mmol/L Normal 3.5-5.1 [facility] Comment on above: Performed By: #### B MP ####[facility] [address] [place] [address]Dr. Sanjuana Kasper Sodium [Moles/Vol] 141 mmol/L Normal 136-145 [facility] [place] Comment on above: Performed By: #### B MP ####[facility] [address] [place] [address]Dr. Sanjuana Kasper Urea nitrogen [Mass/Vol] 24.0 mg/dL Critically high 7.0-18 .0 [facility] Comment on above: Performed By: #### B MP ####[facility] [address] [place], [place] [address]Dr. Sanjuana Kasper Urea nitrogen/Creatinine [Mass ratio] 18.8 mg/mg Normal [facility] Comment on above: Performed By: #### B MP ####[facility] [address] [place], [place] [address]Dr. Sanjuana Kasper PROTIMEon 09-21-2022 INR Coag (PPP) [Relative time] 1.05 {INR} Normal [facility] Comment on above: Performed By: #### P TT, PT ####[facility] [address] [place], [place] [address]Dr. Sanjuana Kasper INR GUIDELINES SEE BELOW Normal [facility] Comment on above: Result Comment: VERONICA RED INR: 2.0 - 3.0 CONDITIONS NOT LISTED BELOW 2.5 - 3.5 FOR PROSTHETIC HEART VALVE REPLACEMENT 2.5 - 3.5 RECURRENT THROMBOSIS Performed By: #### P TT, PT ####[facility] [address] [place], [place] [address]Dr. Sanjuana Kasper PT Coag (PPP) [Time] 11.3 s Normal 9.0-11.6 [facility] Comment on above: Performed By: #### P TT, PT ####[facility] [address] [place], [place] [address]Dr. Sanjuana Kasper PTTon 09-21-2022 aPTT Coag (Bld) [Time] 30.0 s Normal 22.3-36.2 [facility] Comment on above: Performed By: #### P TT, PT ####[facility] [address] [place], [place] [address]FzDr. Sanjuana Kasper XR FOOT MOISES MIN 3 VIEWSon XR FOOT MOISES MIN 3 VIEWS EXAMINATION: XR FOOT MOISES MIN 3 VIEWS HISTORY: Pain in both feet COMPARISON: No relevant comparison available. FINDINGS: RIGHT FINDINGS: BONES: Stable fusion first metatarsal-phalangeal joint. Single screw through the head of the second metatarsal. Resection head of the second proximal phalanx SOFT TISSUES: Negative. No visible soft tissue swelling. OTHER: Negative. LEFT FINDINGS: BONES: No acute fracture or dislocation. Moderate degenerative changes of the midfoot with joint space narrowing and marginal osteophyte formation SOFT TISSUES: Negative. No visible soft tissue swelling. OTHER: Negative. IMPRESSION: RIGHT CONCLUSION: Stable postsurgical changes LEFT CONCLUSION: Moderate midfoot degenerative change Electronically authenticated by: MARÍA BRYSON Date: 2022-08-01 17:51 Normal [facility] Covid-19 PCR (CVDTB)on 05-25 SARS-CoV-2 (COVID-19) RNA DAISY+probe Ql (Unsp spec) Not detected Normal NOT DETECTED [facility] Comment on above: Result Comment: This test is not yet approved or cleared by the [place] FDA. When there are no FDA-approved or cleared tests available, and other criteria are met, FDA can make tests available under an emergency access mechanism called an Emergency Use Authorization (EUA). The EUA for this test is supported by the [place] of Health and Human Service's (HHS's) declaration that circumstances exist to justify the emergency use of in vitro diagnostics for the detection and/or diagnosis of the virus that causes COVID-19. This EUA will remain in effect (meaning this test can be used) for the duration of the COVID-19 declaration justifying emergency of IVDs, unless it is terminated or revoked by FDA (after which the test may no longer be used). When diagnostic testing is negative, the possibility of a false negative should be considered in the context of a patient's recent exposures and the presence of clinical signs and symptoms consistent with SARS-CoV-2. Performed By: #### C VDTB #### [facility] [address] [place], [place] [address] Dr. Sanjuana Kasper Adam 04-20-2022 L Specimen: [id number] Received: 04/20/22 Status: LENIN Jameson Num: [id number] Spec Type: Surgical Subm Dr: Miguel Astorga DO Tissues: A Debridement-Skin/Other Than Skin (SCALP) Procedures: HE Stain, Gross/Micro L3 Patient Age/Sex Location Account Attending Physician Oscar Manuel 72/M [place] [id number] Miguel Astorga DO SPEC NUM: [id number] RECD: 04/20/22 STATUS: LENIN JAMESON NUM: [id number] DEMARCUS: 04/20/22- SUBM DR: Miguel Astorga DO ENTERED: 04/20/22 [facility] DR: SPEC TYPE: Surgical DEPT: S REC BY: [id number] ORDERED: HE Stain, Gross/Micro L3 ORDERED: HE Stain, Gross/Micro L3 Pathological Diagnosis Scalp wound, debridement: - Skin with ulcer, solar elastosis and chronic inflammation. Clinical Information Forehead wound Gross Description Received in formalin labeled with the patient's name, number and debridement of scalp wound is a unoriented slightly C-shaped skin fragment that is 3 x 2.5 cm and excised to a maximum depth of 0.7 cm. The skin fragment is predominately red and granular appearing with a thin rim of owusu unremarkable appearing skin. Muck Hauler sections are submitted in one cassette labeled A1. Type of Fixative: 10% Neutral Buffered Formalin (NORM/YJ) Microscopic Description One glass slide with H E stained material has been examined. The microscopic findings support the above pathologic diagnosis. Specimen: [id number] Received: 04/20/22 Status: LENIN Jameson Num: [id number] Spec Type: Surgical Subm Dr: Miguel Astorga DO Tissues: A Debridement-Skin/Other Than Skin (SCALP) Procedures: HE Stain, Gross/Micro L3 Patient: Oscar Manuel [id number] (Continued) Specimen: [id number] Received: 04/20/22 (Continued) Signed (signature on file) Favio Chong MD 04/24/222025 Specimen: Received: 04/20/22 Status: LENIN Jameson Num: [id number] Spec Type: Surgical Subm Dr: Miguel Astorga DO Tissues: A Debridement-Skin/Other Than Skin (SCALP) Procedures: HE Stain, Gross/Micro L3 Patient: Oscar Manuel [id number] (Continued) Specimen: Received: 04/20/22 (Continued) CPT Codes 22471 Specimen: [id number] Received: 04/20/22 Status: LENIN Jameson Num: [id number] Spec Type: Surgical Subm Dr: Miguel Astorga DO Tissues: A Debridement-Skin/Other Than Skin (SCALP) Procedures: NATALIA Mcdonald, Gross/Micro L3 Patient: Oscar Manuel [id number] (Continued) Signed (signature on file) Favio Chong MD 04/24/222025 [facility] Basic Metabolic Panelon 03-26 Calcium [Mass/Vol] 9.1 mg/dL Normal 8.2-10.2 [facility] Comment on above: Result Comment: PERF ORMED BY: [place] [address] PATHOLOGIST ASSISTANT ART DIRECTOR ISABELLA MCKEON M.D. Performed By: #### B MP, CBC #### [facility] [address] [place] [address] Chloride [Moles/Vol] 103 mmol/L Normal 95-114 [facility] Comment on above: Performed By: #### B MP, CBC #### [address] CO2 [Moles/Vol] 25.0 mmol/L Normal 22.0-30.0 [facility] Comment on above: Performed By: #### B MP, CBC #### [address] Creatinine [Mass/Vol] 1.13 mg/dL Normal 0.64-1.[address] [facility] Comment on above: Performed By: #### B MP, CBC #### [address] Estimated GFR ( Ariane > 60 [facility] Comment on above: Result Comment: GFR estimated reference range: According to KDOQI guidelines, <60 ml/min/1.73m2 is sufficient to diagnose a patient with chronic kidney disease. Performed By: #### B MP, CBC #### [address] Estimated GFR (Non- Am > 60 Normal [facility] Comment on above: Performed By: #### B MP, CBC #### [place] [address] [place] Glucose [Mass/Vol] 102 mg/dL High 70-100 [facility] Comment on above: Result Comment: [place] om Glucose Reference Range is dependent on time and content of last meal. Glucose of more than 200 mg/dL in a nonstressed, ambulatory subject supports the diagnosis of Diabetes Mellitus. ADA recommended reference range Performed By: #### B MP, CBC #### [facility] [address] Potassium [Moles/Vol] 4.2 mmol/L Normal 3.5-5.[address] [facility] Comment on above: Performed By: #### B MP, CBC #### [facility] [address] Sodium [Moles/Vol] 137 mmol/L Normal 136-146 [facility] Comment on above: Performed By: #### B MP, CBC #### [facility] [address] Urea nitrogen [Mass/Vol] 18 mg/dL Normal 9-23 [facility] Comment on above: Performed By: #### B MP, CBC #### [facility] [address] Basophils Auto (Bld) [#/Vol] Ordered By: Miguel Astorga on 04-19-2022 Basophils (Bld) [#/Vol] 0.1 10*3/uL 0.0-0.2 [facility] Basophils/100 WBC Auto (Bld) Ordered By: Miguel Astorga on 04-19-2022 Basophils/100 WBC (Bld) 0.9 % [facility] Blood hemoglobin measurement (mass/volume)Ordered By: Miguel Astorga on 04-19-2022 Hemoglobin (Bld) [Mass/Vol] 14.3 g/dL 13.0-17. 0 [facility] Blood leukocytes automated c ount (number/volume)Ordered By: Miguel Astorga on 04-19-2022 WBC (Bld) [#/Vol] 5.5 10*3/uL 4.5-11.0 [facility] COVID-19 FRMCon 04-19-2022 SARS-CoV-2 (COVID-19) RNA DAISY+probe Ql (Unsp spec) Negative Normal Negative [facility] Comment on above: Order Comment: Comme nt For surgery tomorrow Healthcare Worker?: N Result Comment: Testing for SARS-CoV-2 by RT-PCR This test was developed and its performance characteristics determined by [employer] ([employer]) and validated at the [facility]. This test has not been FDA cleared or approved. This test has been authorized by FDA under an Emergency Use Authorization (EUA). This test has been validated in accordance with the FDA's Guidance Document (Policy for Diagnostics Testing in Laboratories Certified to Perform High Complexity Testing under CLIA prior to Emergency Use Authorization for Coronavirus Disease-2019 during the Public Health Emergency) issued on February 25, 2020. This test is only authorized for the duration of time the declaration that circumstances exist justifying the authorization of the emergency use of in vitro diagnostic tests for detection of SARS-CoV-2 virus and/or diagnosis of COVID-19 infection under section 564(b)(1) of the Act, 21 U.S.C. 360bbb-3(b)(1), unless the authorization is terminated or revoked sooner. PERFORMED BY: [place] [address] PATHOLOGIST ASSISTANT ART DIRECTOR ISABELLA MCKEON M.D. Performed By: #### C OVID 19 [facility] #### [address] COVID-19 Positive/NegativeOr dered By: Miguel Astorga on 04-19-2022 SARS-CoV-2 (COVID-19) N gene DAISY+probe Ql (Resp) Negative Negative [facility] Comment on above: Testing for SARS-CoV -2 by RT-PCR This test was developed and its performance characteristics determined by [employer] and validated at the [facility]. This test has not been FDA cleared or approved. This test has been authorized by FDA under an Emergency Use Authorization (EUA). This test has been validated in accordance with the FDA's Guidance Document (Policy for Diagnostics Testing in Laboratories Certified to Perform High Complexity Testing under CLIA prior to Emergency Use Authorization for Coronavirus Disease-2019 during the Public Health Emergency) issued on February 25, 2020. This test is only authorized for the duration of time the declaration that circumstances exist justifying the authorization of the emergency use of in vitro diagnostic tests for detection of SARS-CoV-2 virus and/or diagnosis of COVID-19 infection under section 564(b)(1) of the Act, 21 U.S.C. 360bbb-3(b)(1), unless the authorization is terminated or revoked sooner. Complete Blood Count Auto Di ffon 04-19-2022 Basophils (Bld) [#/Vol] 0.1 10*3/uL Normal 0.0-0.2 [facility] Comment on above: Result Comment: PERF ORMED BY: [place] [address] PATHOLOGIST ASSISTANT ART DIRECTOR ISABELLA MCKEON M.D. Performed By: #### B MP, CBC #### [facility] [address] [place] [address] Basophils/100 WBC (Bld) 0.9 % Normal . [facility] Comment on above: Performed By: #### B MP, CBC #### [facility] [address] Eosinophils (Bld) [#/Vol] 0.2 10*3/uL Normal 0.0-0.45 [facility] Comment on above: Performed By: #### B MP, CBC #### [facility] [address] [place] [address] [place] Eosinophils/100 WBC (Bld) 3.9 % Normal . [facility] Comment on above: Performed By: #### B MP, CBC #### [facility] [address] [place] [address] Erythrocyte distribution wid th (RBC) [Ratio] 14.1 % Normal 12.0-14.8 [facility] Comment on above: Performed By: #### B MP, CBC #### [facility] [address] Hematocrit (Bld) [Volume fraction] 43.0 % Normal 38.8-50.0 [facility] Comment on above: Performed By: #### B MP, CBC #### [facility] [address] [place] [address] Hemoglobin (Bld) [Mass/Vol] 14.3 g/dL Normal 13.0-17. 0 [facility] Comment on above: Performed By: #### B MP, CBC #### [facility] [address] [place] [address] [place] Lymphocytes (Bld) [#/Vol] 1.4 10*3/uL Normal 1.00-4.8 [facility] Comment on above: Performed By: #### B MP, CBC #### [facility] [address] [place] [id number] [place] Lymphocytes/100 WBC (Bld) 25.7 % Normal . [facility] Comment on above: Performed By: #### B MP, CBC #### [facility] [address] MCH (RBC) [Entitic mass] 29.9 pg Normal 27.5-35.2 [facility] Comment on above: Performed By: #### B MP, CBC #### [facility] [address] MCV (RBC) [Entitic vol] 89.8 fL Normal 83.5-101 F [facility] Comment on above: Performed By: #### B MP, CBC #### [facility] [address] Mean Corpuscular HGB Conc 33.3 g/dL Normal 32.5-35.6 [facility] Comment on above: Performed By: #### B MP, CBC #### [facility] [address] [place] [address] [place] Monocytes (Bld) [#/Vol] 0.4 10*3/uL Normal 0.0-0.8 [facility] Comment on above: Performed By: #### B MP, CBC #### [facility] [address] [place] [id number] [place] Monocytes/100 WBC (Bld) 6.9 % Normal . F [facility] Comment on above: Performed By: #### B MP, CBC #### [facility] [address] [place] [address] [place] Neutrophils (Bld) [#/Vol] 3.5 10*3/uL Normal 1.8-7.7 [facility] Comment on above: Performed By: #### B MP, CBC #### [facility] [address] [place] [address] [place] Neutrophils/100 WBC (Bld) 62.6 % Normal . [facility] Comment on above: Performed By: #### B MP, CBC #### [facility] [address] [place] [address] [place] Nucleated RBC/100 WBC (Bld) [Ratio] 0.1 % Normal 0-0.5 [facility] Comment on above: Performed By: #### B MP, CBC #### [facility] [address] Platelet mean volume (Bld) [Entitic vol] 8.9 fL Normal 6.6-10.1 [facility] Comment on above: Performed By: #### B MP, CBC #### [facility] [address] [place] [address] [place] Platelets (Bld) [#/Vol] 260 10*3/uL Normal 150-450 [facility] Comment on above: Performed By: #### B MP, CBC #### [facility] [address] [place] [address] [place] RBC (Bld) [#/Vol] 4.79 10*6/uL Normal 3.90-5.60 [facility] Comment on above: Performed By: #### B MP, CBC #### [facility] [address] [place] [address] [place] WBC (Bld) [#/Vol] 5.5 10*3/uL Normal 4.5-11.0 [facility] Comment on above: Performed By: #### B MP, CBC #### [facility] [address] [place] [address] [place] Creatinine and Glomerular fi ltration rate.predicted panel (S/P/Bld)Ordered By: Miguel Astorga on 04-19-2022 Creatinine [Mass/Vol] 1.13 mg/dL 0.64-1.[address] [facility] ECG 12 lead ECGon 04-19-2022 ECG 12 lead ECG [facility] [place] [address] Electrocardiograph Report Signed Patient: Oscar Manuel MR#: [id number] : 1950 Acct:[id number] Age/Sex: 72 / M ADM Date: 04/19/22 Loc: PS Room: Type: [facility] Attending Dr: Miguel Astorga DO Ordering Provider: Miguel Astorga DO Date of Service: 04/19/22 ECG/ECG 12 lead ECG: OR 04/20/22 Copies to: Test Reason : Blood Pressure : / mmHG Vent. Rate : 066 BPM Atrial Rate : 066 BPM P-R Int : 136 ms QRS Dur : 094 ms QT Int : 410 ms P-R-T Axes : -57 021 042 degrees QTc Int : 429 ms Unusual P axis, possible ectopic atrial rhythm with premature atrial complexes Abnormal ECG No previous ECGs available Confirmed by SUZIE MCLEAN MD ([facility]) on 04/20/2022 3:16:43 PM Referred By: TAVARES ASTORGA Electronically Signed By:SUZIE MCLEAN MD Transcribed By: MUS Signed By Suzie Mclean MD 0 04/20/22 1516 Normal [facility] Eosinophils Auto (Bld) [#/Vo l]Ordered By: Miguel Astorga on 04-19-2022 Eosinophils (Bld) [#/Vol] 0.2 10*3/uL 0.0-0.45 [facility] Eosinophils/100 WBC Auto (Bl d)Ordered By: Miguel Astorga on 04-19-2022 Eosinophils/100 WBC (Bld) 3.9 % [facility] Erythrocyte distribution wid th Auto (RBC) [Ratio]Ordered By: Miguel Astorga on 04-19-2022 Erythrocyte distribution wid th (RBC) [Ratio] 14.1 % 12.0-14.8 [facility] Estimated glomerular filtrat ion rate (GFR) non- AmericanOrdered By: Miguel Astorga on 04-19-2022 GFR/1.73 sq M.predicted nick g non-blacks MDRD (S/P/Bld) [Vol rate/Area] > 60 mL/Min [facility] Hematocrit Auto (Bld) [Volum e fraction]Ordered By: Miguel Astorga on 04-19-2022 Hematocrit (Bld) [Volume fraction] 43.0 % 3 8.8-50.0 [facility] Laboratory - Hematology and Cell countsOrdered By: Miguel Astorga on 04-19-2022 Nucleated RBC/100 WBC (Bld) [Ratio] 0.1 % 0-0.5 [facility] Lymphocytes Auto (Bld) [#/Vo l]Ordered By: Miguel Astorga on 04-19-2022 Lymphocytes (Bld) [#/Vol] 1.4 10*3/uL 1.00-4.8 [facility] Lymphocytes/100 WBC Auto (Bl d)Ordered By: Miguel Astorga on 04-19-2022 Lymphocytes/100 WBC (Bld) 25.7 % [facility] MCH Auto (RBC) [Entitic mass ]Ordered By: Miguel Astorga on 04-19-2022 MCH (RBC) [Entitic mass] 29.9 pg 27.5-35.2 [facility] MCHC Auto (RBC) [Mass/Vol]Or dered By: Miguel Astorga on 04-19-2022 MCHC (RBC) [Mass/Vol] 33.3 g/dL 32.5-35.[address] [facility] MCV Auto (RBC) [Entitic vol] Ordered By: Miguel Astorga on 04-19-2022 MCV (RBC) [Entitic vol] 89.8 fL 83.5-101 F [facility] Monocytes Auto (Bld) [#/Vol] Ordered By: Miguel Astorga on 04-19-2022 Monocytes (Bld) [#/Vol] 0.4 10*3/uL 0.0-0.8 [facility] Monocytes/100 WBC Auto (Bld) Ordered By: Miguel Astorga on 04-19-2022 Monocytes/100 WBC (Bld) 6.9 % F [facility] Neutrophils Auto (Bld) [#/Vo l]Ordered By: Miguel Astorga on 04-19-2022 Neutrophils (Bld) [#/Vol] 3.5 10*3/uL 1.8-7.7 [facility] Neutrophils/100 WBC Auto (Bl d)Ordered By: Miguel Astorga on 04-19-2022 Neutrophils/100 WBC (Bld) 62.6 % [facility] No Panel InformationOrdered By: Miguel Astorga on 04-19-2022 Estimated GFR () > 60 mL/Min [facility] Comment on above: GFR estimated refere nce range: According to KDOQI guidelines, <60 ml/min/1.73m2 is sufficient to diagnose a patient with chronic kidney disease. Pharmacy Creatinine Clearance (Chem N/A [facility] Platelet mean volume Auto (B ld) [Entitic vol]Ordered By: Miguel Astorga on 04-19-2022 Platelet mean volume (Bld) [Entitic vol] 8.9 fL 6.6-10.1 [facility] Platelets Auto (Bld) [#/Vol] Ordered By: Miguel Astorga on 04-19-2022 Platelets (Bld) [#/Vol] 260 10*3/uL 150-450 [facility] RBC Auto (Bld) [#/Vol]Ordere d By: Miguel Astorga on 04-19-2022 RBC (Bld) [#/Vol] 4.79 10*6/uL 3.90-5.60 [facility] Serum or plasma calcium dieter urement (mass/volume)Ordered By: Miguel Astorga on 04-19-2022 Calcium [Mass/Vol] 9.1 mg/dL 8.2-10.2 [facility] Serum or plasma chloride shashank surement (moles/volume)Ordered By: Miguel Astorga on 04-19-2022 Chloride [Moles/Vol] 103 mmol/L 95-114 [facility] Serum or plasma glucose dieter urement (mass/volume)Ordered By: Miguel Astorga on 04-19-2022 Glucose [Mass/Vol] 102 mg/dL 70-100 [facility] Comment on above: ADA recommended refe rence range Random Glucose Reference Range is dependent on time and content of last meal. Glucose of more than 200 mg/dL in a nonstressed, ambulatory subject supports the diagnosis of Diabetes Mellitus. Serum or plasma potassium me asurement (moles/volume)Ordered By: Miguel Astorga on 04-19-2022 Potassium [Moles/Vol] 4.2 mmol/L 3.5-5.[address] [facility] Serum or plasma sodium measu rement (moles/volume)Ordered By: Miguel Astorga on 04-19-2022 Sodium [Moles/Vol] 137 mmol/L 136-146 [facility] Serum or plasma total carbon dioxide measurement (moles/volume)Ordered By: Miguel Astorga on 04-19-2022 CO2 [Moles/Vol] 25.0 mmol/L 22.0-30.0 [facility] Serum or plasma urea nitroge n measurement (mass/volume)Ordered By: Miguel Astorga on 04-19-2022 Urea nitrogen [Mass/Vol] 18 mg/dL 08-17 [facility] Vital Signs Date Time Vital Sign Value Performing Clinician Faci cheikh 06-24-2023 15:47-0400 Blood Pressure Location Natali SOLARES [facility] 06-24-2023 15:47-0400 Diastolic blood pressure 80 mm[Hg] Natali SOLARES [facility] 06-24-2023 15:47-0400 Heart rate 68 /min Natali SOLARES [facility] 06-24-2023 15:47-0400 Respiratory rate 16 /min Natali SOLARES [facility] 06-24-2023 15:47-0400 Systolic blood pressure 130 mm[Hg] Natali SOLARES [facility] 05-07-2022 14:57-0400 Blood Pressure Location Natali SOLARES [facility] 05-07-2022 14:57-0400 Diastolic blood pressure 81 mm[Hg] Natali SOLARES [facility] 05-07-2022 14:57-0400 Heart rate 72 /min Natali SOLARES [facility] 05-07-2022 14:57-0400 Respiratory rate 16 /min Natali SOLARES [facility] 05-07-2022 14:57-0400 Systolic blood pressure 149 mm[Hg] Natali SOLARES [facility] 04-20-2022 15:00-0400 Diastolic blood pressure 58 mm[Hg] DO Miguel Toribiocek Work Phone: [facility] 04-20-2022 15:00-0400 Heart rate 72 /min DO Miguel Malucek Work Phone: [facility] 04-20-2022 15:00-0400 Respiratory rate 16 /min DO Miguel Maluceshelby Work Phone: [facility] 04-20-2022 15:00-0400 SaO2% (BldA) [Mass fraction] 95 % DO Miguel Murcek Work Phone: [facility] 04-20-2022 15:00-0400 Systolic blood pressure 118 mm[Hg] DO Miguel Murcek Work Phone: [facility] 04-20-2022 13:09-0400 Body temperature 97.5 [degF] DO Miguel Murcek Work Phone: [facility] 04-20-2022 13:09-0400 Inhaled oxygen flow rate 6 L/min DO Miguel Murcek Work Phone: [facility] 04-20-2022 12:40-0400 Body height 187.96 cm DO Miguel Astorga Work Phone: [facility] 04-20-2022 12:40-0400 Body mass index (BMI) [Ratio] 30.9 kg/m2 DO Miguel Astorga Work Phone: [facility] 04-20-2022 12:40-0400 Body weight 109.4 kg DO Miguel Astorga Work Phone: [facility] Encounters Encounter Date Encounter Type Care Provider Facility Start: 06-29-2024 ambulatory Natali Zelaya ty: Maik Start: 07-30-2023 End: [facility]: 06-24-2023 End: 06-25-2023 ambulatory Natali SOLARES Facility:[facility] Start: 06-24-2023 End: 06-24-2023 Patient encounter procedure Natali SOLARES [facility] Start: 04-09-2023 End: 04-09-2023 ambulatory MATTHIAS SAHA . Facility:[facility] Start: 03-18-2023 End: 03-18-2023 ambulatory Miriam Carpenter Facility:[facility] Start: 03-18-2023 End: 03-18-2023 ambulatory MD Miriam Carpenter Work Phone: [facility] Work Phone: Start: 03-18-2023 End: 03-18-2023 Departed Referred MD Miriam Carpenter Work Phone: [facility] [place] Work Phone: Start: 03-12-2023 End: 03-13-[address] NORTH CHAPIN Facility:[facility] Start: [facility] Start: 03-06-2023 End: 04-13-[address] NORTH CHAPIN Facility:[facility] Start: 02-01-2023 End: 02-01-2023 ambulatory ANUPAM [facility] Start: 01-24-2023 End: 01-24-2023 ambulatory TIAGO WILBURN [facility] Start: 12-20-2022 End: 12-21-[address] RAZ MATOS Facility:[facility] Start: 12-18-2022 End: 12-19-2022 ambulatory MODESTO ROCHE Facility:[facility] Start: 12-07-2022 End: 12-07-2022 ambulatory ANUPAM [facility] Start: 12-06-2022 End: 12-06-[address] NORTH CHAPIN Facility:[facility] Start: 11-06-2022 End: 11-07-2022 ambulatory MODESTO ROCHE Facility:[facility] Start: 10-16-2022 End: 10-17-2022 ambulatory MODESTO ROCHE Facility:[facility] Start: 09-27-2022 End: 09-27-2022 ambulatory BARBIE CANSECO Facility:[facility] Start: 09-26-2022 Encounter for preprocedural cardiovascular examination [facility] Start: 09-26-2022 Encounter for preprocedural laboratory examination [facility] Start: 09-24-2022 ambulatory BARBIE CANSECO Faci lity:[facility] Start: 09-21-2022 End: 09-22-2022 ambulatory BARBIE CANSECO Facility:[facility] Start: 09-21-2022 End: 09-22-2022 Encounter for preprocedural cardiovascular examination BARBIE CANSECO Facility:[facility] Start: 08-01-2022 End: 08-02-2022 ambulatory BARBIE CANSECO Facility:[facility] Start: 06-04-2022 End: 06-05-[address] NORTH CHAPIN Facility:[facility] Start: 05-15-2022 End: 05-16-2022 ambulatory MODESTO ROCHE Facility:[facility] Start: 05-07-2022 End: 05-07-2022 Patient encounter procedure Natali SOLARES [facility] Start: 04-27-2022 End: 04-28-[address] NATALI SOLARES . Facility: Start: 04-20-2022 End: 04-20-2022 ambulatory Miguel Molinashelby Facility:[facility] Start: 04-20-2022 End: 04-20-2022 Admission to same day surgery center DO Miguel Astorga Work Phone: [facility] [place] Start: 04-19-2022 End: 04-19-2022 ambulatory North Chapin Facility:[facility] Start: 04-19-2022 End: 04-19-2022 Patient encounter procedure DO Miguel Astorga Work Phone: [facility] Procedures Date Procedure Procedure Detail Performing Clinician Start: 04-27-2022 PSA screening MODESTO ROCHE Comment on above: Performed By: #### P SAD ####[facility] [id number] [place], [place] [address]Dr. Sanjuana Kasper Start: 04-20-2022 OR Cheek Lesion Exc W/Flap Recon (Not Applicable) DO Miguel Astorga Work Phone: Colonoscopy Natali SOLARES ft (qualifier value) Natali SOLARES Prosthetic arthroplasty of the hip Natali SOLARES Removal of Basal Cell on Nose Natali SOLARES Repair of inguinal hernia Pa cielo SOLARES Titanium Plate Left Arm Cleor ugo SOLARES Tonsillectomy and adenoidectomy Natali SOLARES Plan of Treatment Date Care Activity Detail Author Start: 03-18-2023 Superficial Wound Culture Superficial Wound Culture [facility] SARS-CoV-2 (COVID-19 ) N gene [Presence] in Respiratory specimen by DAISY with probe detection [facility] Work Phone: Immunizations Immunization Date Immunization Notes Care Provider Amanda griffin 09-02-2022 influenza virus vacc ine, unspecified formulation Natali SOLARES [facility] 10-05-2021 SARS-CoV-2 (COVID-19 ) mRNA BNT-162b2 vax Natali SOLARES [facility] 08-14-2021 influenza virus vacc ine, unspecified formulation Natali SOLARES [facility] 08-14-2021 pneumococcal polysaccharide vaccine, 23 valent Natali SOLARES [facility] 03-22-2021 SARS-CoV-2 (COVID-19 ) mRNA BNT-162b2 vax Natali SOLARES [facility] Comment on above: Result Comment: erro r 03-22-2021 SARS-CoV-2 (COVID-19 ) mRNA-1273 vaccine Natali SOLARES [facility] 03-01-2021 SARS-CoV-2 (COVID-19 ) mRNA BNT-162b2 vax Natali SOLARES [facility] 02-23-2021 SARS-CoV-2 (COVID-19 ) mRNA BNT-162b2 vax Natali SOLARES [facility] Comment on above: Result Comment: erro r 08-05-2020 influenza virus vacc ine, unspecified formulation Natali SOLARES [facility] 08-05-2020 pneumococcal conjuga te vaccine, 13 valent Natali SOLARES [facility] 08-31-2019 influenza virus vacc ine, unspecified formulation [place] [facility] 07-08-2018 influenza virus vacc ine, unspecified formulation [place] [facility] 07-08-2018 zoster vaccine recombinant [place] [facility] 03-25-2018 zoster vaccine recombinant [place] [facility] 08-08-2017 influenza virus vacc ine, unspecified formulation [place] [facility] 07-26-2017 influenza virus vacc ine, unspecified formulation [place] [facility] 07-19-2016 influenza virus vacc ine, unspecified formulation [employer] [facility] 09-03-2015 influenza virus vacc ine, unspecified formulation [place] [facility] Payers Date Payer Category Payer Self-pay [id number] 1957 Private Health Insurance 101 [id number] 1950 Unknown [id number] 2..[id number] 3 1950 Unknown [id number] 2.840.1.497645.3.579.2.59 3 1950 Unknown [id number] 2.840.1.620886.3.579.2.59 3 1952 Unknown [id number] 2.16.840.1.297290.3.579.2.59 3 1952 Unknown [id number] 2.16.840.1.675578.3.579.2.59 3 1952 Unknown [id number] 2.16.840.1.113982.3.579.2.59 3 1952 Unknown [id number] 2.16.840.1.305434.3.579.2.59 3 1952 Unknown [id number] 2.16.840.1.001679.3.579.2.59 3 1952 Unknown [id number] 2.16.840.1.692266.3.579.2.59 3 1952 Unknown [id number] 2.16.840.1.686192.3.579.2.59 3 1952 Unknown [id number] 2.16.840.1.951147.3.579.2.59 3 1952 Unknown [id number] 2.16.840.1.270832.3.579.2.59 3 1952 Unknown [id number] 2.16.840.1.734608.3.579.2.59 3 1952 Unknown [id number] 2.16.840.1.356278.3.579.2.59 3 1952 Unknown [id number] 2.16.840.1.288012.3.579.2.59 3 1952 Unknown [id number] 2.16.840.1.386889.3.579.2.72 7 1950 Unknown [id number] 2.16.840.1.162705.3.579.2.72 7 Private Health Insurance [employer] Mc[employer] PFFS N on Pt [id number] Unknown [id number] Unknown [id number] 2.16.840.1.782997.3.579.2.53 1 Unknown [id number] 2.16.840.1.495929.3.579.2.53 1 Unknown [id number] 2.16.840.1.586857.3.579.2.53 1 Social History Date Type Detail Facility Start: 05-07-2022 End: 06-24-2023 Tobacco smoking status Never smoked tobacco (finding) [facility] Work Phone: Sex Assigned At Male [facility] Start: 1950 Sex Assigned At Male F [facility] Tobacco smoking status Never [facility] Goals Date Patient Goal Desired Activity /State Functional Status Date Assessment Result Facility 06-24-2023 Functional Status N/A [facility] 05-07-2022 Functional Status N/A [facility] Clinical Notes 05-07-2022 to 07-30-2023 Note Date & Type Note Facility 07-30-2023 Note Patient here for 6 m o follow up PAF and dizziness. He had labs, ECG, carotid US, and echo in February 2023. Says dizziness has subsided. He denies chest pain, SOB, and palpitations. Doing very well from cardiac standpoint. Review of Systems Cardiovascular: Positive for leg swelling. Musculoskeletal: Positive for arthritis. All other systems reviewed and are negative. [facility] 07-30-2023 Note [place] Electrophysiology Consult Note Reason for visit: Dizziness 07/30/23: Patient here for 6 month follow up Loop data review reveals some bradycardia in AM which does not sustain . He had some SVT events which he was asymptomatic for Denies CP, SOB, KOENIG 03/08/23 HPI: He underwent a LOOP monitor and on 02/11/2023 He felt lightheaded and dizzy suddently while he was in the chair. He states he has edmund noted his HR suddenly dropping to 40' and 50;s on other times and Sats in 90's. LOOP monitor check reveals tachycardia as below. Previously, he had an event monitor in the past which showed PVCs with burden less than 1%. He had occasional atrial tachycardia which was nonsustained but no evidence of A. Fib. Prior HPI: Oscar Manuel is a 73 y.o. year old with past medical history of atrial fibrillation that was diagnosed few years ago here he was admitted to [facility] with A. fib with rapid ventricular rate. He was started on Cardizem and converted on his own to sinus rhythm. Subsequent to that he hasn't had any significant episodes but occasionally has felt his heart rate being fast for a very short while. He is otherwise very active with no limitations. Does not endorse any chest pain or shortness of breath and recently had a foot surgery which has limited slightly. He had an Holter monitor placed recently for some palpitations which did not reveal any atrial fibrillation. He is only on aspirin and takes diltiazem which is prescribed by his PCP after initial diagnosis of A. fib. PMHx: PAF and CHERI. He denies any chest pain, SOB, KOENIG, palpitations, orthopnea, PND, lower extremity edema, dizziness/lightheadedness, syncope, issues with bleeding. ----- Holter monitor placed for 48 hours from 12/24/2021 to 12/10/2021 at [facility] was reviewed by me and shows PVC burden of less than 1% and PVC count of 6%. Occasional nonsustained atrial tachycardia few beats seen but no atrial fibrillation noted. No ventricular tachycardia noted EKG 10/17/2021 shows sinus rhythm with normal intervals Echocardiogram done at [place] on 09/06/2021 shows ejection fraction of 60% with no significant valvular issues ECHO 06/05/19 Global left ventricular systolic function is normal (Visually estimated EF 55%). No regional wall motion abnormality. Normal diastolic function. Normal right ventricular systolic function. The right ventricle is mildly enlarged. The left atrium is mildly enlarged. The right atrium is moderately enlarged. Doppler studies suggest normal right sided pressures. No significant valvular abnormalities Stress Echo Conclusions - 10/12/2016 - Assessment: no ischemia-induced wall motion abnormalities (negative stress echo test) - At rest, no wall motion abnormalities - With stress, no ischemia-induced wall motion abnormalities - At rest, normal global systolic LV-function (EF 60%) - With stress, hypercontractility of the left ventricle (EF 75%) - Assessment: normal LV function Stress ECG Conclusions - Overall interpretation: Normal ECG stress test - The Gomez Treadmill Score is + 8 - Low risk of cardiovascular event - Appropriate heart rate response - Normal resting BP - appropriate response - Stress termination reason: Dyspnea - Resting ECG: Normal - No ST depression during the stress test - Arrhythmias seen: ventricular premature beats - Functional capacity is normal (-20 - +19%) PMH: Past Medical History: Diagnosis Date Arrhythmia Atrial fibrillation (CMS/HCC) Right bundle branch block Sleep apnea Patient Active Problem List Diagnosis Paroxysmal atrial fibrillation (CMS/HCC) BPH (benign prostatic hyperplasia) 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 Family history of malignant neoplasm of kidney History of anticoagulant therapy Lumbosacral spondylosis without myelopathy Pain in testicle Restless leg syndrome Sleep apnea Varicocele Epididymitis Ischial bursitis of left side Primary osteoarthritis of left hip PSH: Past Surgical History: Procedure Laterality Date HERNIA REPAIR 03/25/2019 PARTIAL HIP ARTHROPLASTY 07/10/2017 TONSILLECTOMY WRIST SURGERY SH: Social Determinants of Health Tobacco Use: Low Risk (07/30/2023) Patient History Smoking Tobacco Use: Never Smokeless Tobacco Use: Never Passive Exposure: Not on file Alcohol Use: Not on file Financial Resource Strain: Not on file Food Insecurity: Not on file Transportation Needs: Not on file Physical Activity: Not on file Stress: Not on file Social Connections: Not on file Intimate Partner Violence: Not on file Depression: Not on file Housing Stability: Not on file Allergies: No Known Allergies Weight: 112kg Visit Vitals BP 135/80 (BP Location: Left arm, Patient Position: Sitting) Pulse 64 Ht 1.88 m (6' 2 ) Wt 112 kg (246 l (more content not included)... [facility] 07-31-2023 Hospital Discharge instructions Patient Education 06/24/2023 16:36:03 Benign Prostatic Hyperplasia Benign Prostatic Hyperplasia Benign prostatic hyperplasia (BPH) is an enlarged prostate gland that is caused by the normal aging process. The prostate may get bigger as a man gets older. The condition is not caused by cancer. The prostate is a walnut-sized gland that is involved in the production of semen. It is located in front of the rectum and below the bladder. The bladder stores urine. The urethra carries stored urine out of the body. An enlarged prostate can press on the urethra. This can make it harder to pass urine. The buildup of urine in the bladder can cause infection. Back pressure and infection may progress to bladder damage and kidney (renal) failure. What are the causes? This condition is part of the normal aging process. However, not all men develop problems from this condition. If the prostate enlarges away from the urethra, urine flow will not be blocked. If it enlarges toward the urethra and compresses it, there will be problems passing urine. What increases the risk? This condition is more likely to develop in men older than 50 years. What are the signs or symptoms? Symptoms of this condition include: Getting up often during the night to urinate. Needing to urinate frequently during the day. Difficulty starting urine flow. Decrease in size and strength of your urine stream. Leaking (dribbling) after urinating. Inability to pass urine. This needs immediate treatment. Inability to completely empty your bladder. Pain when you pass urine. This is more common if there is also an infection. Urinary tract infection (UTI). How is this diagnosed? This condition is diagnosed based on your medical history, a physical exam, and your symptoms. Tests will also be done, such as: A post-void bladder scan. This measures any amount of urine that may remain in your bladder after you finish urinating. A digital rectal exam. In a rectal exam, your health care provider checks your prostate by putting a lubricated, gloved finger into your rectum to feel the back of your prostate gland. This exam detects the size of your gland and any abnormal lumps or growths. An exam of your urine (urinalysis). A prostate specific antigen (PSA) screening. This is a blood test used to screen for prostate cancer. An ultrasound. This test uses sound waves to electronically produce a picture of your prostate gland. Your health care provider may refer you to a specialist in kidney and prostate diseases (urologist). How is this treated? Once symptoms begin, your health care provider will monitor your condition (active surveillance or watchful waiting). Treatment for this condition will depend on the severity of your condition. Treatment may include: Observation and yearly exams. This may be the only treatment needed if your condition and symptoms are mild. Medicines to relieve your symptoms, including: ?Medicines to shrink the prostate. ?Medicines to relax the muscle of the prostate. Surgery in severe cases. Surgery may include: ?Prostatectomy. In this procedure, the prostate tissue is removed completely through an open incision or with a laparoscope or robotics. ?Transurethral resection of the prostate (TURP). In this procedure, a tool is inserted through the opening at the tip of the penis (urethra). It is used to cut away tissue of the inner core of the prostate. The pieces are removed through the same opening of the penis. This removes the blockage. ?Transurethral incision (TUIP). In this procedure, small cuts are made in the prostate. This lessens the prostate's pressure on the urethra. ?Transurethral microwave thermotherapy (TUMT). This procedure uses microwaves to create heat. The heat destroys and removes a small amount of prostate tissue. ?Transurethral needle ablation (TUNA). This procedure uses radio frequencies to destroy and remove a small amount of prostate tissue. ?Interstitial laser coagulation (ILC). This procedure uses a laser to destroy and remove a small amount of prostate tissue. ?Transurethral electrovaporization (TUVP). This procedure uses electrodes to destroy and remove a small amount of prostate tissue. ?Prostatic urethral lift. This procedure inserts an implant to push the lobes of the prostate away from the urethra. Follow these instructions at home: Take [id number] and prescription medicines only as told by your health care provider. Monitor your symptoms for any changes. Contact your health care provider with any changes. Avoid drinking large amounts of liquid before going to bed or out in public. Avoid or reduce how much caffeine or alcohol you drink. Give yourself time when you urinate. Keep all follow-up visits. This is important. Contact a health care provider if: You have unexplained back pain. Your symptoms do not get better with treatment. You develop side effects from the medicine you are taking. Your urine becomes very dark or has a bad smell. Your lower abdomen becomes distended and you have trouble passing urine. Get help right away if: You have a fever or chills. You suddenly cannot urinate. You feel light-headed or very dizzy, or you faint. There are large amounts of blood or clots in your urine. Your urinary problems become hard to manage. You develop moderate to severe low back or flank pain. The flank is the side of your body between the ribs and the hip. These symptoms may be an emergency. Get help right away. Call 911. Do not wait to see if the symptoms will go away. Do not drive yourself to the hospital. Summary Benign prostatic hyperplasia (BPH) is an enlarged prostate that is caused by the normal aging process. It is not caused by cancer. An enlarged prostate can press on the urethra. This can make it hard to pass urine. This condition is more likely to develop in men older than 50 years. Get help right away if you suddenly cannot urinate. This information is not intended to replace advice given to you by your health care provider. Make sure you discuss any questions you have with your health care provider. Document Revised: 05/30/2022 Document Reviewed: 05/30/2022 [employer] Patient Education 2022 [employer]. Follow Up Care 05/07/2022 15:53:47 With:ESEQUIEL RUSSELL, Natali Gonzalez, URL Address: [facility] [address], [place] [id number]- [phone] When: Unknown Comments:1 yr w/ PSA [facility] 03-08-2023 Note Date of Telehealth V isit: 03/08/2023 The patient was notified that using 3rd republican telecommunication application (e.g., [employer]) is not HIPPA compliant and may carry some privacy risks. Yes The visit was conducted [id number] with the use of audio and video technology between patient and provider for a virtual visit. Verbal consent to provide and bill this service was obtained on 03/08/2023. No signature was obtained due to the COVID-19 pandemic. Patient Location: Patient Home I spent 28 minutes of total time on the day of the visit. This time was spent preparing for the visit, obtaining and reviewing any outside history/data, taking a history, performing an exam/evaluation, counseling and educating patient/family about the diagnosis and plan, performing medical decision making, referring to and communicating with other health care referrals, independently interpreting results and documenting in the EMR, and coordinating care. Please see the additional documentation in this note for specific details. [place] Electrophysiology Consult Note Reason for visit: Dizziness HPI: He underwent a LOOP monitor and on 02/11/2023 He felt lightheaded and dizzy suddently while he was in the chair. He states he has edmund noted his HR suddenly dropping to 40' and 50;s on other times and Sats in 90's. LOOP monitor check reveals tachycardia as below. Previously, he had an event monitor in the past which showed PVCs with burden less than 1%. He had occasional atrial tachycardia which was nonsustained but no evidence of A. Fib. Prior HPI: Oscar Manuel is a 72 y.o. year old with past medical history of atrial fibrillation that was diagnosed few years ago here he was admitted to [facility] with A. fib with rapid ventricular rate. He was started on Cardizem and converted on his own to sinus rhythm. Subsequent to that he hasn't had any significant episodes but occasionally has felt his heart rate being fast for a very short while. He is otherwise very active with no limitations. Does not endorse any chest pain or shortness of breath and recently had a foot surgery which has limited slightly. He had an Holter monitor placed recently for some palpitations which did not reveal any atrial fibrillation. He is only on aspirin and takes diltiazem which is prescribed by his PCP after initial diagnosis of A. fib. PMHx: PAF and CHERI. He denies any chest pain, SOB, KOENIG, palpitations, orthopnea, PND, lower extremity edema, dizziness/lightheadedness, syncope, issues with bleeding. ----- Holter monitor placed for 48 hours from 12/24/2021 to 12/10/2021 at [facility] was reviewed by me and shows PVC burden of less than 1% and PVC count of 6%. Occasional nonsustained atrial tachycardia few beats seen but no atrial fibrillation noted. No ventricular tachycardia noted EKG 10/17/2021 shows sinus rhythm with normal intervals Echocardiogram done at [facility] on 09/06/2021 shows ejection fraction of 60% with no significant valvular issues ECHO 06/05/19 Global left ventricular systolic function is normal (Visually estimated EF 55%). No regional wall motion abnormality. Normal diastolic function. Normal right ventricular systolic function. The right ventricle is mildly enlarged. The left atrium is mildly enlarged. The right atrium is moderately enlarged. Doppler studies suggest normal right sided pressures. No significant valvular abnormalities Stress Echo Conclusions - 10/12/2016 - Assessment: no ischemia-induced wall motion abnormalities (negative stress echo test) - At rest, no wall motion abnormalities - With stress, no ischemia-induced wall motion abnormalities - At rest, normal global systolic LV-function (EF 60%) - With stress, hypercontractility of the left ventricle (EF 75%) - Assessment: normal LV function Stress ECG Conclusions - Overall interpretation: Normal ECG stress test - The Gomez Treadmill Score is + 8 - Low risk of cardiovascular event - Appropriate heart rate response - Normal resting BP - appropriate response - Stress termination reason: Dyspnea - Resting ECG: Normal - No ST depression during the stress test - Arrhythmias seen: ventricular premature beats - Functional capacity is normal (-20 - +19%) PMH: Past Medical History: Diagnosis Date Arrhythmia Atrial fibrillation (CMS/HCC) Right bundle branch block Sleep apnea Patient Active Problem List Diagnosis Paroxysmal atrial fibrillation (CMS/HCC) BPH (benign prostatic hyperplasia) 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 [facility] 02-01-2023 Note Here for wound check s/p loop monitor insertion Denies aches chills fever States has been feeling well. Has had no concerns for drainage, bleeding, hematoma. Did have some bruising around the site. Upon palpation of wound, may have been a small hematoma. Patient instructed to watch for aches, chills, fever. Otherwise site appears to be healing well, no tenderness, drainage, erythema. Patient instructed to shower and not scrub site until it is fully healed. Instructed not to submerge in water until completely healed as well. Follow-up as scheduled or sooner if he has symptoms of aches, chills, fever, palpitations. [facility] 02-01-2023 Note Patient here for wou nd check s/p loop recorder insertion with Dr. Wilburn on 01/24/2023. [facility] 01-24-2023 Note LOOP IMPLANT PROCEDU RE NOTE DATE OF PROCEDURE: 01/24/2023 PERFORMING PHYSICIAN: Dr. Tiago Wilburn SCIENTIFIC ILLUSTRATOR: JOVITA INDICATIONS FOR PROCEDURE: 1. SVT/AF surveillance CONSENT: Patient LOCATION: EP lab PROCEDURAL SEDATION: None FLUOROSCOPY TIME: 0min PREPARATION: Preoperative antibiotics was administered. EBL:5cc SPECIMEN REMOVED: None PROCEDURES PERFORMED: 1. LOOP implant PROCEDURE NOTE: Patient was brought to the EP lab in the post absorptive state. A procedural pause was performed verifying the patient, the procedure. Sterile prep and drape were performed over the left precordium and anesthesia with 1% lidocaine was followed by a small incision was made in the 3rd intercostal space near the sternum on the left using the [employer] tool. The loop recorder was then injected subcutaneously and noted to have good sensing parameters. Technical details of the device as noted below. The skin was then closed with 3-0 absorbable monofilament suture and glue applied to hold the edges together. Tegaderm was applied to cover the wound. The patient appeared to tolerate the procedure well and was returned to the room in stable condition. No complications were immediately observed. Sensin.2mV. IMPRESSION: Successful placement of LOOP implant with excellent sensing parameters. COMPLICATIONS: None RECOMMENDATIONS: 1. Occlusive dressing to be changed after 7 days. 2. Do not wet the incision. Tiago Wilburn MD Cardiac Electrophysiology. [facility] 12-19-2022 Note - [id number]: 1 (a ge), possibly 2 for masked HTN, he has not trialed off cardizem -continue aspirin 325 -he called after visit and decided he would like to proceed with loop monitor implant for AF surveillance -continue cardizem 180 [facility] 12-19-2022 Note -continue with compliance for cp ap [facility] 12-18-2022 Note PROCEDURE: XR FOOT L T MIN 3 VIEWS COMPARISON: 11/06/2022 HISTORY: Pain in left foot FINDINGS: BONES:Stable fusion of the first metatarsal-phalangeal joint with a dorsal plate and screws. There is lucency identified through the proximal plate at the level of the first metatarsal head suggesting mechanical failure. Osteotomy and screw placement second metatarsal head. Resection head of the second proximal phalanx. Degenerative changes with joint space narrowing and marginal osteophyte formation most significant along the midfoot SOFT TISSUES:Negative. No visible soft tissue swelling. EFFUSION:None visible. OTHER: Negative. IMPRESSION: Fracture of the proximal fixation plate along the head of the first metatarsal Electronically authenticated by: MARÍA BRYSON Date: 2022-12-18 09:32 [facility] 12-07-2022 Note [place] Cardiology Consul t Note Reason for visit: 6-month follow-up for paroxysmal A. fib HPI: Oscar Manuel is a 72 y.o. year old with past medical history of paroxysmal A. fib with RVR obstructive sleep apnea here for 6-month follow-up. States he is feeling well and has denied any symptoms concerning of A. Fib and denies chest pain, shortness of breath, palpitations, lightheadedness, dizziness, fatigue. Continues to take Cardizem 180 mg and aspirin 325 mg. his [id number] is 1 for age, possibly 2 for masked hypertension masked by Cardizem which was only started for A. Fib. He does not start a blood thinner I did discuss with him the option of a loop monitor which was offered previously. He states he is unsure what he wants to. Did discuss with him the risk of stroke from A. fib despite not having symptoms. It be difficult to assess if he went to A. fib and being asymptomatic. He had an event monitor in the past which showed PVCs with burden less than 1%. He had occasional atrial tachycardia which was nonsustained but no evidence of A. Fib. After the visit he later called and agreed to doing a loop monitor for A. fib surveillance which will be booked. Review of Systems Constitutional: Negative for malaise/fatigue. Cardiovascular: Negative for chest pain, dyspnea on exertion, leg swelling, orthopnea and palpitations. Respiratory: Negative for shortness of breath. Neurological: Negative for dizziness, headaches, light-headedness and weakness. All other systems reviewed and are negative. --- Previous HPI per [place] FARFAN 06/27/2022: 72 yo male presents to clinic for f/u a fib with RVR. Denied chest pain, shortness of breath, orthopnea- with cpap, palpitations, lightheadedness, dizziness. Overall states he is feeling well. Previous note per Dr Wilburn Mr. Manuel is a 71 y/o M with past medical history of atrial fibrillation that was diagnosed few years ago where he was admitted to [facility] with A. fib with rapid ventricular rate. He was started on Cardizem and converted on his own to sinus rhythm. Subsequent to that he hasn't had any significant episodes but occasionally has felt his heart rate being fast for a very short while. He is otherwise very active with no limitations. Does not endorse any chest pain or shortness of breath and recently had a foot surgery which has limited slightly. He had an Holter monitor placed recently for some palpitations which did not reveal any atrial fibrillation. He is only on aspirin and takes diltiazem which is prescribed by his PCP after initial diagnosis of A. fib. PMHx: PAF and CHERI. He denies any chest pain, SOB, KOENIG, palpitations, orthopnea, PND, lower extremity edema, dizziness/lightheadedness, syncope, issues with bleeding. ----- Holter monitor placed for 48 hours from 12/24/2021 to 12/10/2021 at [facility] was reviewed by me and shows PVC burden of less than 1% and PVC count of 6%. Occasional nonsustained atrial tachycardia few beats seen but no atrial fibrillation noted. No ventricular tachycardia noted EKG 10/17/2021 shows sinus rhythm with normal intervals Echocardiogram done at [facility] on 09/06/2021 shows ejection fraction of 60% with no significant valvular issues ECHO 06/05/19 Global left ventricular systolic function is normal (Visually estimated EF 55%). No regional wall motion abnormality. Normal diastolic function. Normal right ventricular systolic function. The right ventricle is mildly enlarged. The left atrium is mildly enlarged. The right atrium is moderately enlarged. Doppler studies suggest normal right sided pressures. No significant valvular abnormalities Stress Echo Conclusions - 10/12/2016 - Assessment: no ischemia-induced wall motion abnormalities (negative stress echo test) - At rest, no wall motion abnormalities - With stress, no ischemia-induced wall motion abnormalities - At rest, normal global systolic LV-function (EF 60%) - With stress, hypercontractility of the left ventricle (EF 75%) - Assessment: normal LV function Stress ECG Conclusions - Overall interpretation: Normal ECG stress test - The Gomez Treadmill Score is + 8 - Low risk of cardiovascular event - Appropriate heart rate response - Normal resting BP - appropriate response - Stress termination reason: Dyspnea - Resting ECG: Normal - No ST depression during the stress test - Arrhythmias seen: ventricular premature beats - Functional capacity is normal (-20 - +19%) PMH: No past medical history on file. 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 [facility] 11-06-2022 Note PROCEDURE: XR FOOT L T MIN 3 VIEWS HISTORY: Pain in left foot COMPARISON: XR foot left 10/16/2022 FINDINGS: BONES:Mechanical fusion of the first metatarsophalangeal joint. Prior osteotomy and repair of head of second metatarsal. Resection of head of second proximal phalanx. No bone fracture or dislocation. SOFT TISSUES:Skin cynthia have been removed. Minimal soft tissue swelling. EFFUSION:None visible. OTHER: Negative. IMPRESSION: 1. Stable surgical changes without evidence of hardware failure or change in alignment. Electronically authenticated by: RAZ MATOS Date: 2022-11-06 15:27 [facility] 10-17-2022 Note PROCEDURE: XR FOOT L T MIN 3 VIEWS HISTORY: Pain in left foot COMPARISON: XR foot left 09/27/2022 FINDINGS: BONES:Mechanical fusion of the first metatarsophalangeal joint without is of hardware fracture or loosening. Single screw within head of second metatarsal. Resection of head of second proximal phalanx. SOFT TISSUES:Mild distal dorsal soft tissue swelling and skin cynthia. EFFUSION:None visible. OTHER: Negative. IMPRESSION: 1. Stable surgical changes without evidence of hardware failure or change in alignment. 2. Interval removal of cast material. Skin cynthia remain. Electronically authenticated by: RAZ MATOS Date: 2022-10-17 10:46 [facility] 09-27-2022 Note PROCEDURE: XR FOOT L T MIN 3 VIEWS COMPARISON: 08/01/2022 HISTORY: Pain FINDINGS: BONES:Fusion first metatarsal-phalangeal joint with a dorsal plate and multiple screws. No acute fracture, dislocation or mechanical failure. Resection head of the second proximal phalanx. Placement of a single screw head of the second metatarsal SOFT TISSUES:Dorsal soft tissue swelling and surgical skin cynthia EFFUSION:None visible. OTHER: Details obscured by a posterior splint IMPRESSION: First metatarsal-phalangeal joint fusion with postsurgical changes Electronically authenticated by: MARÍA BRYSON Date: 2022-09-27 18:29 [facility] 05-15-2022 Note PROCEDURE: XR FOOT R T MIN 3 VIEWS COMPARISON: 02/13/2022 HISTORY: Pain in right foot FINDINGS: BONES:Stable fusion the first metatarsal-phalangeal joint with a plate and multiple screws. Remote resection head of the second proximal phalanx. Remote osteotomy and fixation with a single screw head of the second metatarsal. Deformity of the fifth proximal phalanx suggests remote healed fracture. No new fracture, dislocation or mechanical failure SOFT TISSUES:Negative. No visible soft tissue swelling. EFFUSION:None visible. OTHER: Negative. IMPRESSION: Stable first metatarsal-phalangeal joint fusion Electronically authenticated by: MARÍA BRYSON Date: 2022-05-15 21:39 [facility] 05-07-2022 Hospital Discharge instructions Patient Education 05/07/2022 15:46:13 Calorie Counting for Weight Loss Calorie Counting for Weight Loss Calories are units of energy. Your body needs a certain amount of calories from food to keep you going throughout the day. When you eat more calories than your body needs, your body stores the extra calories as fat. When you eat fewer calories than your body needs, your body mayorga fat to get the energy it needs. Calorie counting means keeping track of how many calories you eat and drink each day. Calorie counting can be helpful if you need to lose weight. If you make sure to eat fewer calories than your body needs, you should lose weight. Ask your health care provider what a healthy weight is for you. For calorie counting to work, you will need to eat the right number of calories in a day in order to lose a healthy amount of weight per week. A dietitian can help you determine how many calories you need in a day and will give you suggestions on how to reach your calorie goal. A healthy amount of weight to lose per week is usually 1 2 lb (0.5 0.9 kg). This usually means that your daily calorie intake should be reduced by 500 750 calories. Eating 1,200 1,500 calories per day can help most women lose weight. Eating 1,500 1,800 calories per day can help most men lose weight. What is my plan? My goal is to have calories per day. If I have this many calories per day, I should lose around pounds per week. What do I need to know about calorie counting? In order to meet your daily calorie goal, you will need to: Find out how many calories are in each food you would like to eat. Try to do this before you eat. Decide how much of the food you plan to eat. Write down what you ate and how many calories it had. Doing this is called keeping a food log. To successfully lose weight, it is important to balance calorie counting with a healthy lifestyle that includes regular activity. Aim for 150 minutes of moderate exercise (such as walking) or 75 minutes of vigorous exercise (such as running) each week. Where do I find calorie information? The number of calories in a food can be found on a Nutrition Facts label. If a food does not have a Nutrition Facts label, try to look up the calories online or ask your dietitian for help. Remember that calories are listed per serving. If you choose to have more than one serving of a food, you will have to multiply the calories per serving by the amount of servings you plan to eat. For example, the label on a package of bread might say that a serving size is 1 slice and that there are 90 calories in a serving. If you eat 1 slice, you will have eaten 90 calories. If you eat 2 slices, you will have eaten 180 calories. How do I keep a food log? Immediately after each meal, record the following information in your food log: What you ate. Don't forget to include toppings, sauces, and other extras on the food. How much you ate. This can be measured in cups, ounces, or number of items. How many calories each food and drink had. The total number of calories in the meal. Keep your food log near you, such as in a small notebook in your pocket, or use a mobile chapis or website. Some programs will calculate calories for you and show you how many calories you have left for the day to meet your goal. What are some calorie counting tips? Use your calories on foods and drinks that will fill you up and not leave you hungry: ?Some examples of foods that fill you up are nuts and nut butters, vegetables, lean proteins, and high-fiber foods like whole grains. High-fiber foods are foods with more than 5 g fiber per serving. ?Drinks such as sodas, specialty coffee drinks, alcohol, and juices have a lot of calories, yet do not fill you up. Eat nutritious foods and avoid empty calories. Empty calories are calories you get from foods or beverages that do not have many vitamins or protein, such as candy, sweets, and soda. It is better to have a nutritious high-calorie food (such as an avocado) than a food with few nutrients (such as a bag of chips). Know how many calories are in the foods you eat most often. This will help you calculate calorie counts faster. Pay attention to calories in drinks. Low-calorie drinks include water and unsweetened drinks. Pay attention to nutrition labels for low fat or fat free foods. These foods sometimes have the same amount of calories or more calories than the full fat versions. They also often have added sugar, starch, or salt, to make up for flavor that was removed with the fat. Find a way of tracking calories that works for you. Get creative. Try different apps or programs if writing down calories does not work for you. What are some portion control tips? Know how many calories are in a serving. This will help you know how many servings of a certain food you can have. Use a measuring cup to measure serving sizes. You could also try weighing out portions on a kitchen scale. With time, you will be able to estimate serving sizes for some foods. Take some time to put servings of different foods on your favorite plates, bowls, and cups so you know what a serving looks like. Try not to eat straight from a bag or box. Doing this can lead to overeating. Put the amount you would like to eat in a cup or on a plate to make sure you are eating the right portion. Use smaller plates, glasses, and bowls to prevent overeating. Try not to multitask (for example, watch TV or use your computer) while eating. If it is time to eat, sit down at a table and enjoy your food. This will help you to know when you are full. It will also help you to be aware of what you are eating and how much you are eating. What are tips for following this plan? Reading food labels Check the calorie count compared to the serving size. The serving size may be smaller than what you are used to eating. Check the source of the calories. Make sure the food you are eating is high in vitamins and protein and low in saturated and trans fats. Shopping Read nutrition labels while you shop. This will help you make healthy decisions before you decide to purchase your food. Make a grocery list and stick to it. Cooking Try to cook your favorite foods in a healthier way. For example, try baking instead of frying. Use low-fat dairy products. Meal planning Use more fruits and vegetables. Half of your plate should be fruits and vegetables. Include lean proteins like poultry and fish. How do I count calories when eating out? Ask for smaller portion sizes. Consider sharing an entree and sides instead of getting your own entree. If you get your own entree, eat only half. Ask for a box at the beginning of your meal and put the rest of your entree in it so you are not tempted to eat it. If calories are listed on the menu, choose the lower calorie options. Choose dishes that include vegetables, fruits, whole grains, low-fat dairy products, and lean protein. Choose items that are boiled, broiled, grilled, or steamed. Stay away from items that are buttered, battered, fried, or served with cream sauce. Items labeled crispy are usually fried, unless stated otherwise. Choose water, low-fat milk, unsweetened iced tea, or other drinks without added sugar. If you want an alcoholic beverage, choose a lower calorie option such as a glass of wine or light beer. Ask for dressings, sauces, and syrups on the side. These are usually high in calories, so you should limit the amount you eat. If you want a salad, choose a garden salad and ask for grilled meats. Avoid extra toppings like lyons, cheese, or fried items. Ask for the dressing on the side, or ask for olive oil and vinegar or lemon to use as dressing. Estimate how many servings of a food you are given. For example, a serving of cooked rice is cup or about the size of half a baseball. Knowing serving sizes will help you be aware of how much food you are eating at restaurants. The list below tells you how big or small some common portion sizes are based on everyday objects: ?1 oz 4 stacked dice. ?3 oz 1 deck of cards. ?1 tsp 1 . ?1 Tbsp a ping-pong ball. ?2 Tbsp 1 ping-pong ball. ? cup baseball. ?1 cup 1 baseball. Summary Calorie counting means keeping track of how many calories you eat and drink each day. If you eat fewer calories than your body needs, you should lose weight. A healthy amount of weight to lose per week is usually 1 2 lb (0.5 0.9 kg). This usually means reducing your daily calorie intake by 500 750 calories. The number of calories in a food can be found on a Nutrition Facts label. If a food does not have a Nutrition Facts label, try to look up the calories online or ask your dietitian for help. Use your calories on foods and drinks that will fill you up, and not on foods and drinks that will leave you hungry. Use smaller plates, glasses, and bowls to prevent overeating. This information is not intended to replace advice given to you by your health care provider. Make sure you discuss any questions you have with your health care provider. Document Released: 11/11/2006 Document Revised: 07/31/2019 Document Reviewed: 10/11/2017 [employer] Patient Education 2020 [employer]. 05/07/2022 15:46:01 Benign Prostatic Hyperplasia Benign Prostatic Hyperplasia Benign prostatic hyperplasia (BPH) is an enlarged prostate gland that is caused by the normal aging process and not by cancer. The prostate is a walnut-sized gland that is involved in the production of semen. It is located in front of the rectum and below the bladder. The bladder stores urine and the urethra is the tube that carries the urine out of the body. The prostate may get bigger as a man gets older. An enlarged prostate can press on the urethra. This can make it harder to pass urine. The build-up of urine in the bladder can cause infection. Back pressure and infection may progress to bladder damage and kidney (renal) failure. What are the causes? This condition is part of a normal aging process. However, not all men develop problems from this condition. If the prostate enlarges away from the urethra, urine flow will not be blocked. If it enlarges toward the urethra and compresses it, there will be problems passing urine. What increases the risk? This condition is more likely to develop in men over the age of 50 years. What are the signs or symptoms? Symptoms of this condition include: Getting up often during the night to urinate. Needing to urinate frequently during the day. Difficulty starting urine flow. Decrease in size and strength of your urine stream. Leaking (dribbling) after urinating. Inability to pass urine. This needs immediate treatment. Inability to completely empty your bladder. Pain when you pass urine. This is more common if there is also an infection. Urinary tract infection (UTI). How is this diagnosed? This condition is diagnosed based on your medical history, a physical exam, and your symptoms. Tests will also be done, such as: A post-void bladder scan. This measures any amount of urine that may remain in your bladder after you finish urinating. A digital rectal exam. In a rectal exam, your health care provider checks your prostate by putting a lubricated, gloved finger into your rectum to feel the back of your prostate gland. This exam detects the size of your gland and any abnormal lumps or growths. An exam of your urine (urinalysis). A prostate specific antigen (PSA) screening. This is a blood test used to screen for prostate cancer. An ultrasound. This test uses sound waves to electronically produce a picture of your prostate gland. Your health care provider may refer you to a specialist in kidney and prostate diseases (urologist). How is this treated? Once symptoms begin, your health care provider will monitor your condition (active surveillance or watchful waiting). Treatment for this condition will depend on the severity of your condition. Treatment may include: Observation and yearly exams. This may be the only treatment needed if your condition and symptoms are mild. Medicines to relieve your symptoms, including: ?Medicines to shrink the prostate. ?Medicines to relax the muscle of the prostate. Surgery in severe cases. Surgery may include: ?Prostatectomy. In this procedure, the prostate tissue is removed completely through an open incision or with a laparoscope or robotics. ?Transurethral resection of the prostate (TURP). In this procedure, a tool is inserted through the opening at the tip of the penis (urethra). It is used to cut away tissue of the inner core of the prostate. The pieces are removed through the same opening of the penis. This removes the blockage. ?Transurethral incision (TUIP). In this procedure, small cuts are made in the prostate. This lessens the prostate's pressure on the urethra. ?Transurethral microwave thermotherapy (TUMT). This procedure uses microwaves to create heat. The heat destroys and removes a small amount of prostate tissue. ?Transurethral needle ablation (TUNA). This procedure uses radio frequencies to destroy and remove a small amount of prostate tissue. ?Interstitial laser coagulation (ILC). This procedure uses a laser to destroy and remove a small amount of prostate tissue. ?Transurethral electrovaporization (TUVP). This procedure uses electrodes to destroy and remove a small amount of prostate tissue. ?Prostatic urethral lift. This procedure inserts an implant to push the lobes of the prostate away from the urethra. Follow these instructions at home: Take [id number] and prescription medicines only as told by your health care provider. Monitor your symptoms for any changes. Contact your health care provider with any changes. Avoid drinking large amounts of liquid before going to bed or out in public. Avoid or reduce how much caffeine or alcohol you drink. Give yourself time when you urinate. Keep all follow-up visits as told by your health care provider. This is important. Contact a health care provider if: You have unexplained back pain. Your symptoms do not get better with treatment. You develop side effects from the medicine you are taking. Your urine becomes very dark or has a bad smell. Your lower abdomen becomes distended and you have trouble passing your urine. Get help right away if: You have a fever or chills. You suddenly cannot urinate. You feel lightheaded, or very dizzy, or you faint. There are large amounts of blood or clots in the urine. Your urinary problems become hard to manage. You develop moderate to severe low back or flank pain. The flank is the side of your body between the ribs and the hip. These symptoms may represent a serious problem that is an emergency. Do not wait to see if the symptoms will go away. Get medical help right away. Call your local emergency services (911 in the [place] Do not drive yourself to the hospital. Summary Benign prostatic hyperplasia (BPH) is an enlarged prostate that is caused by the normal aging process and not by cancer. An enlarged prostate can press on the urethra. This can make it hard to pass urine. This condition is part of a normal aging process and is more likely to develop in men over the age of 50 years. Get help right away if you suddenly cannot urinate. This information is not intended to replace advice given to you by your health care provider. Make sure you discuss any questions you have with your health care provider. Document Released: 11/11/2006 Document Revised: 10/06/2019 Document Reviewed: 12/16/2017 [employer] Patient Education 2020 [employer]. Follow Up Care 09/04/2021 16:41:31 With:Natali SOLARES MD, URL Address: [facility] [address] , [place] [address]- [phone] When:Within 1 Year(s) Comments:f/u in 1 year with PSA and NAIMA [facility] Evaluation + Plan note Future Appointments Appointment Date:05/13/2023 03:00:00 PM Scheduled Provider:Natali SOLRAES MD Location:[facility] Appointment Type:URO Office Visit Diagnostic Tests PendingPSA Total 6/13/22 [facility] Evaluation + Plan note Future Appointments Appointment Date:06/29/2024 03:00:00 PM Scheduled Provider:Natali SOLARES MD Location:[facility] Appointment Type:URO Office Visit Diagnostic Tests PendingPSA Total 06/24/23 [facility] Evaluation note No assessment inform ation available [facility] Work Phone: Hospital course Narrative No data available for this section [facility] Progress note No data available for this section [facility] Chief Complaint and Reason for Visit Chief Complaint Forehead Wound Chief Complaint Forehead Wound Forehead Wound Family History No Family History Records Found Relationship Condition Age at Onset Recorded Date/T carmelo sister Malignant neoplasm of skin Unknown Not Specified Heart disease Unknown Malignant neoplasm of breast Unknown father Malignant neoplasm of kidney Unknown Advance Directives No Advanced Directives Records Found Advance Directive Response Recorded Date/ Time Advance Directives No May 31 8:07am Summary Purpose Additional Source Comments Care Team (unrecognized sect ion and content) Team Status: Inactive Member Role Status Dates Miguel Astorga DO Attending Provider Active [place] MD Primary Care Provider Active Team Status: Active Member Role Status Dates [place] MD Primary Care Provider Active Team Status: Inactive Member Role Status Dates Miriam Carpenter MD Attending Provider Active Goals (unrecognized section and content) Goals may be documented in a n alternate section (unrecognized sect ion and content) No Status Records FoundNo Status Records FoundNo Status Records FoundNo Status Records Found INFORMATION SOURCE (unrecogn ized section and content) DATE CREATED AUTHOR 03/24/2023 [facility] DATE CREATED AUTHOR AUTHOR'S ORGANIZ ATION 04/10/2023 [facility] DATE CREATED AUTHOR AUTHOR'S ORGANIZ ATION 06/26/2023 [facility] DATE CREATED AUTHOR AUTHOR'S ORGANIZ ATION 08/12/2023 [facility] FOR RECORDS PERTAINING TO PATIENTS WHO ARE OR HAVE BEEN ENROLLED IN A CHEMICAL DEPENDENCY/SUBSTANCEABUSE PROGRAM, SOME INFORMATION MAY BE OMITTED. This clinical summary was aggregated from multiple sources. Caution should be exercised in using it in the provision of clinical care. This summary normalizes information from multiple sources, and as a consequence, information in this document may materially change the coding, format and clinical context of patient data. In addition, data may be omitted in some cases. CLINICAL DECISIONS SHOULD BE BASED ON THE PRIMARY CLINICAL RECORDS. [facility]. provides no warranty or guarantee of the accuracy or completeness of information in this document.
== END 2023-10-08 15:17 | disposition home or self-care (01) ==
LOC: RAD 15:16
PROVIDERS: PCP Family Medicine; Visit Provider Podiatrist Foot & Ankle Surgery
DX: S92.902D Unspecified fracture of left foot, subsequent encounter for fracture with routine healing (principal)
CPT/HCPCS: 73630

== ENCOUNTER 2023-10-11 14:30 | Outpatient (OUT) | payer MEDICARE, SELFPAY ==
--- NOTE | 2023-10-11 14:38 | CT_ITS ---
The [address] [address] Patient Name: KAVITA AUSTIN MRN: [id number] date: 1950 Sex: M Assigned Patient Location: CT Current Patient Location: CT Accession/Order Number: [id number] Exam Date: 10/11/2023 14:48 Report Date: 10/11/2023 15:25 At the request of: BARBIE CANSECO Procedure: CT foot LT wo con EXAMINATION: CT foot LT wo con HISTORY: Nonunion, Hardware Failure COMPARISON: 12/20/2022 TECHNIQUE: Multi-planar CT images were created without IV contrast. Dose reduction techniques were achieved by using automated exposure control and/or adjustment of mA and/or kV according to patient size and/or use of iterative reconstruction technique. FINDINGS: BONES: No acute fracture or dislocation. Moderate degenerative changes most significant in the midfoot. Dorsal fusion of the first metatarsal-phalangeal joint. No acute fracture or dislocation. Again demonstrated is a step off in the proximal dorsal plate consistent with a mechanical failure. 2 the screws protrude beyond the plantar margin of the first metatarsal and first proximal phalanx cortex. Incomplete bony bridging across the arthrodesis SOFT TISSUES: Negative. No visible soft tissue swelling. EFFUSION: None visible. OTHER: Negative. CT/CT foot LT wo con IMPRESSION: First metatarsal phalangeal joint fusion with incomplete bony bridging and stable mechanical failure of the dorsal plate Electronically authenticated by: MARÍA BRYSON Date: 10/11/2023 15:25
== END 2023-10-11 14:31 | disposition home or self-care (01) ==
LOC: CT 14:30
PROVIDERS: PCP Family Medicine; Visit Provider Podiatrist Foot & Ankle Surgery
DX: T84.89XA Other specified complication of internal orthopedic prosthetic devices, implants and grafts, initial encounter (principal); Z98.1 Arthrodesis status
CPT/HCPCS: 73700

== ENCOUNTER 2023-10-31 13:15 | Outpatient (OUT) | payer MEDICARE, SELFPAY ==
[2023-10-31 14:11] LABS: Basophils Absolute Auto 0.1 10^3/uL (0.0-0.1); Basophils Percent Auto 0.9 % (0.2-2.0); Eosinophils Absolute Auto 0.3 10^3/uL (0.0-0.7); Eosinophils Percent Auto 4.5 % (0.9-7.0); Hematocrit 43.3 % (42.0-54.0); Hemoglobin 14.2 g/dL (14.0-18.0); Immature Granulocytes Abs Auto 0.02 10^3/uL (0.00-0.03); Immature Granulocytes Pct Auto 0.3 % (0.0-0.5); Lymphocytes Absolute Auto 1.6 10^3/uL (1.2-3.8); Lymphocytes Percent Auto 23.3 % (20.5-60.0); Mean Corpuscular HGB Conc 32.8 g/dL (29.9-35.2); Mean Corpuscular Hemoglobin 29.8 pg (25.9-34.0); Mean Platelet Volume 11.1 fL (9.5-13.5); Monocytes Absolute Auto 0.4 10^3/uL (0.3-0.8); Monocytes Percent Auto 6.1 % (1.7-12.0); Neutrophils Absolute Auto 4.5 10^3/uL (1.4-6.5); Neutrophils Percent Auto 64.9 % (43.0-75.0); Platelet Count 243 10^3/uL (150-450); Red Blood Count 4.76 10^6/uL (4.70-6.10); Red Cell Distribution Width 13.2 % (11.0-15.0); White Blood Count 6.9 10^3/uL (4.0-11.0)
[2023-10-31 14:24] LABS: INR 1.04; Partial Thromboplastin Time 31.3 sec (22.3-36.2)
[2023-10-31 14:25] LABS: BUN Creatinine Ratio 17.9; Calcium 8.8 mg/dL (8.5-10.1); Carbon Dioxide 26.7 mmol/L (21.0-32.0); Chloride 106 mmol/L (98-107); Estimated GFR (African America >60 (>=60); Estimated GFR (Non-African Ame >60 (>=60); Glucose 107 mg/dL (74-106); Potassium 3.7 mmol/L (3.5-5.1); Sodium 142 mmol/L (136-145)
--- NOTE | 2023-10-31 14:30 | PM.PRESUREVA ---
History of Present Illness History of Present Illness Chief complaint: hallux rigidus left Narrative: Patient presents for preadmission testing. Please see HPI from Dr. Alcala dated 10/22/2023. Review of Systems ROS Narrative Please see ROS from Dr. Alcala dated 10/22/2023. [facility] Medical History (Updated 10/31/23 @ 14:17 by Dee Cisse NP) Degenerative disc disease Back pain ?M54.9 - Dorsalgia, unspecified (ICD-10) Obstructive sleep apnea ?G47.33 - Obstructive sleep apnea (adult) (pediatric) (ICD-10) Benign prostatic hyperplasia ?N40.0 - Benign prostatic hyperplasia without lower urinary tract symptoms (ICD-10) Abdominal hernia ?K46.9 - Unspecified abdominal hernia without obstruction or gangrene (ICD-10) Colon polyp ?K63.5 - Polyp of colon (ICD-10) Hammertoe ?M20.40 - Other hammer toe(s) (acquired), unspecified foot (ICD-10) Atrial fibrillation (10/01/16) ?I48.91 - Unspecified atrial fibrillation (ICD-10) COVID-19 ?U07.1 - COVID-19 (ICD-10) Hallux valgus ?M20.10 - Hallux valgus (acquired), unspecified foot (ICD-10) Pain due to internal orthopedic prosthetic device ?T84.84XA - Pain due to internal orthopedic prosthetic devices, implants and grafts, initial encounter (ICD-10) Pseudoarthrosis Hallux rigidus ?M20.20 - Hallux rigidus, unspecified foot (ICD-10) Status post placement of implantable loop recorder (~2022) ?Z95.818 - Presence of other cardiac implants and grafts (ICD-10) GERD (gastroesophageal reflux disease) ?K21.9 - Gastro-esophageal reflux disease without esophagitis (ICD-10) Surgical History (Updated 10/31/23 @ 14:17 by Dee Cisse NP) H/O removal of cyst ?Z98.890 - Other specified postprocedural states (ICD-10) H/O colonoscopy (~2005) ?Z98.890 - Other specified postprocedural states (ICD-10) S/P tonsillectomy and adenoidectomy ?Z90.89 - Acquired absence of other organs (ICD-10) H/O hand surgery (~2011) ?Z98.890 - Other specified postprocedural states (ICD-10) H/O wrist surgery (08/07/13) ?Z98.890 - Other specified postprocedural states (ICD-10) H/O radiofrequency ablation (RFA) of nerve of lumbar spine (~06/2016) ?Z98.890 - Other specified postprocedural states (ICD-10) H/O colonoscopy (~09/12/16) ?Z98.890 - Other specified postprocedural states (ICD-10) History of total hip replacement (~2016) ?Z96.649 - Presence of unspecified artificial hip joint (ICD-10) H/O umbilical hernia repair (~2017) ?Z98.890 - Other specified postprocedural states (ICD-10) ?Z87.19 - Personal history of other diseases of the digestive system (ICD-10) History of repair of inguinal hernia (~2017) ?Z98.890 - Other specified postprocedural states (ICD-10) ?Z87.19 - Personal history of other diseases of the digestive system (ICD-10) H/O foot surgery (10/30/21) ?Z98.890 - Other specified postprocedural states (ICD-10) H/O foot surgery (09/27/22) ?Z98.890 - Other specified postprocedural states (ICD-10) H/O colonoscopy (04/09/23) ?Z98.890 - Other specified postprocedural states (ICD-10) Family History (Updated 10/31/23 @ 13:51 by Dee Cisse NP) Other Family history of breast cancer Family history of diabetes mellitus Family history of kidney cancer Social History (Updated 10/31/23 @ 14:18 by Dee Cisse NP) Within the past year, how often did you have a drink containing alcohol: 2-4 times a month Smoking status: Never smoker Non-prescribed substance use: denies use 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 Highest level of school completed/degree received: Master's degree Meds Home Medications and Allergies Home Medications Medication Instructions Recorded Confirmed Type aspirin 325 mg capsule 325 mg PO DAILY 10/31/23 10/31/23 History cholecalciferol (vitamin D3) 125 125 mcg PO DAILY 10/31/23 10/31/23 History mcg (5,000 unit) capsule diltiazem HCl 180 mg 180 mg PO Q24H 10/31/23 10/31/23 History capsule,extended release 24 hr, controlled doxepin 50 mg capsule 50 mg PO QPM 10/31/23 10/31/23 History famotidine 20 mg tablet 20 mg PO DAILY 10/31/23 10/31/23 History finasteride 5 mg tablet 5 mg PO DAILY 10/31/23 10/31/23 History ropinirole 2 mg tablet 2 mg PO QPM 10/31/23 10/31/23 History tadalafil 20 mg tablet 20 mg PO DAILY PRN sexual activity 10/31/23 10/31/23 History tamsulosin 0.4 mg capsule 0.4 mg PO Q24H 10/31/23 10/31/23 History Allergies Allergy/AdvReac Type Severity Reaction Status Date / Time No Known Drug Allergies Allergy Verified 10/31/23 13:42 Exam Narrative Exam Narrative: Constitutional: Awake, alert, comfortable, well-appearing, nontoxic, interactive, vital signs as charted Head: Normocephalic, atraumatic Neck: Supple, normal appearance, normal range of motion, no meningeal signs, no lymphadenopathy Respiratory: No respiratory distress, breath sounds clear Cardiovascular: Regular rate and rhythm, strong and regular heart tones Psychiatric: Oriented ?3, normal affect Assessment and Plan Assessment and Plan (1) Pain due to internal orthopedic prosthetic device: (2) Pseudoarthrosis: (3) Hallux rigidus: Plan Left 1st metatarsal phalangeal joint fusion revision with excision of nonunion, bone graft as needed, removal of hardware, stress exam under fluoroscopy scheduled with Dr. Alcala 11/11/2023.
== END 2023-10-31 13:16 | disposition home or self-care (01) ==
LOC: PST 13:16
PROVIDERS: PCP Family Medicine; Visit Provider Podiatrist Foot & Ankle Surgery
DX: Z01.812 Encounter for preprocedural laboratory examination (principal); M20.21 Hallux rigidus, right foot; M96.0 Pseudarthrosis after fusion or arthrodesis
CPT/HCPCS: 80048; 85025; 85610; 85730; G0463

== ENCOUNTER 2023-11-11 09:03 | Day surgery (SDC) | payer MEDICARE, SELFPAY ==
[2023-10-31 14:00] VITALS: BP 131/73; PULSE 60; RESP 16; TEMP 36.3; O2SAT 95; BMI 31.4
[2023-11-11] VITALS (10 sets, daily range): BP systolic 130–154; BP diastolic 67–80; PULSE 59–70; RESP 12–23; TEMP 36.2; O2SAT 91–95; BMI 31.3
--- NOTE | 2023-11-11 | FL_ITS ---
[address] [address] Patient Name: KAVITA AUSTIN MRN: [id number] date: 1950 Sex: M Assigned Patient Location: [facility] Current Patient Location: Accession/Order Number: [id number] Exam Date: 11/11/2023 14:36 Report Date: 11/12/2023 08:21 At the request of: BARBIE CANSECO Procedure: FL fluoroscopy <1hr NON-READ EXAM: FL fluoroscopy <1hr NON-READ HISTORY: LEFT FOOT PAIN TECHNIQUE: FINDINGS: Please see Operative Report. Electronically authenticated by: RADIOLOGIST NO Date: 11/12/2023 08:21
[2023-11-11 09:16] LABS: Basophils Absolute Auto 0.1 10^3/uL (0.0-0.1); Basophils Percent Auto 0.9 % (0.2-2.0); Eosinophils Absolute Auto 0.4 10^3/uL (0.0-0.7); Eosinophils Percent Auto 5.5 % (0.9-7.0); Hematocrit 46.2 % (42.0-54.0); Immature Granulocytes Abs Auto 0.02 10^3/uL (0.00-0.03); Immature Granulocytes Pct Auto 0.3 % (0.0-0.5); Lymphocytes Absolute Auto 1.8 10^3/uL (1.2-3.8); Lymphocytes Percent Auto 27.7 % (20.5-60.0); Mean Corpuscular HGB Conc 32.5 g/dL (29.9-35.2); Mean Corpuscular Hemoglobin 29.8 pg (25.9-34.0); Mean Corpuscular Volume 91.8 fL (80.0-94.0); Mean Platelet Volume 10.8 fL (9.5-13.5); Monocytes Absolute Auto 0.5 10^3/uL (0.3-0.8); Monocytes Percent Auto 7.7 % (1.7-12.0); Neutrophils Absolute Auto 3.8 10^3/uL (1.4-6.5); Neutrophils Percent Auto 57.9 % (43.0-75.0); Platelet Count 258 10^3/uL (150-450); Red Blood Count 5.03 10^6/uL (4.70-6.10); Red Cell Distribution Width 13.4 % (11.0-15.0); White Blood Count 6.6 10^3/uL (4.0-11.0)
[2023-11-11 09:24] LABS: Glucometer 97 mg/dL (74-106)
[2023-11-11] MEDS: LACTATED RINGER'S SOLUTION 1,000 ML 50 ML IV ×2 (09:32→12:45)
[2023-11-11] MEDS: THROMBI-GEL SIZE 40 HEMOSTAT 1 EACH TOPICAL (12:52)
--- NOTE | 2023-11-11 14:04 | P.ORON_ITS ---
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 First metatarsal phalangeal joint fusion with excision of fibrous nonunion 2. Solen of distal tibial bone graft 3. Application of short leg splint 4. Intraoperative stress examination under intraoperative fluoroscopy *All procedures were performed on the LEFT foot INTRAOPERATIVE FINDINGS: dorsal plate was fractured proximal to the metatarsal phalangeal joint. Once the plate and interfrag screw was removed stress examination revealed motion and instability. Fibrous tissue noted within the joint without signs of infection. Bone quality is within normal limits given patient's age and gender. PROCEDURE IN DETAIL: Patient was identified in pre op and consent was reviewed. Correct side and site were identified and marked. Pre-op antibiotics were started. Patient was brought to OR suite and place on table in a supine position. General anesthesia was administered. A tourniquet was applied. Operative extremity was prepped and draped in usual sterile fashion. Formal time-out was performed and the foot/ankle were exsanguinated and tourniquet inflated. Incision created over dorsal aspect of the 1st MPJ. Bleeders coagulated. EHL protected throughout the procedure. the dorsal plate and screw construct was identified and removed with appropriate screwdriver and with the aid of osteotomes. Then a stab incision was placed over the medial aspect of the proximal phalanx and blunt dissection was performed down to bone and interfrag screw head. This 3.5 mm screw was removed with appropriate screwdriver. 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 The nonunion was excised with rongeurs, curettes and osteotomes. Then the joint was prepared for fusion by removing any nonviable tissue or bone from the proximal phalanx base and 1st metatarsal head. Then a 2.0 mm drill was used on each side of the joint. The site was irrigated. Distal Tibial Bone Graft: A 2 cm incision was created 2 cm proximal to the ankle joint and just medial to the tibialis anterior tendon. Combination sharp blunt dissection gained access to the distal tibial metaphysis and the periosteum was reflected carefully. An 8 mm bone harvester was drilled into the distal tibial metaphysis and 3 cc of cancellus autograft was obtained. Gelfoam was then packed into the harvest site and deep closure with absorbable suture was performed followed by closure with skin suture. Bone graft was mixed with 1cc of allograft (Sparc) and then packed into the fusion site. A guide wire was then used to pin the MPJ in a rectus position under fluoroscopic guidance from the medial aspect of the proximal phalanx and through the lateral cortex of the 1st metatarsal. Position was checked both on the table and under fluoroscopy. then a stab incision was placed on the lateral aspect of the great toe over the proximal phalanx. This wire was also drilled across the joint crossing the 1st screw. This wire was then taken through the skin proximally on the medial aspect of the forefoot. Fluoroscopy was used to confirm wire placement position and depth. Then 4.0 mm cannulated screws were placed accordingly over each wire. Compression was noted at the fusion site. A saw was used to contour the dorsal aspect of the 1st metatarsal and proximal phalanx to accommodate plate fixation. A 3.5 mm locking revision plate was place over the fusion site and temporarily fixed. Then photogrammetry airplane pilot holes were drilled for locking 3.5 mm screws which were measured and placed according to the manufactor's standard directions. Again position was checked under fluoroscopy as well as on the table. Temporary fixation was removed and additional screws were placed. The surgical site was irrigated with copious amounts of sterile saline. The incision was then closed in layers. The tourniquet was deflated and a prompt hyperemic response was noted. A dry sterile dressing consisting of Xeroform on the incisions followed by 4 x 4 gauze, ABDs, and Kerlix were applied. Multiple layers of cast padding were then applied to ensure all bony prominences were well-padded. A plaster posterior splint was then applied which was held in place by Delvis wraps. Capillary refill time to all digits was evaluated and had appropriate response. POSTOPERATIVE PLAN: Discharge home under family's care Post op instructions provided verbally and written prescription(s) were placed in chart NWB operative foot/ankle x1 wk Follow-up in 1 week Implants: Medline 3.5 mm 1st metatarsophalangeal joint revision fusion plate & 4.0 mm cannulated compression screws (x2) [employer] Sparc bone allograft 1cc Anesthesia: regional and General-LMA Surgeon: Alexis Alcala Rail Director: Rafi Evans Estimated blood loss (mL): 10 Condition: stable Disposition: PACU Preoperative Details Reason for procedure: patient is a 73-year-old male who underwent right 1st metatarsal phalangeal joint fusion on 10/30/21. patient was extremely happy with the outcome was having similar issues on his left foot so on 09/27/22 he underwent LEFT 1st metatarsal phalangeal joint fusion. unfortunately patient has had worsening pain and dysfunction since November 2022 at which time it was noted on x-ray that the dorsal plate had fractured. We discussed potential risks and b enefits of surgical intervention including revision however patient at the time was doing satisfactorily so he postponed surgery. however when he followed up last month he was having more pain which is affecting activities of daily living. X-rays and CT scan demonstrated nonunion. Given his symptoms patient wished to proceed with surgical intervention and he was educated all potential risks and benefits. All questions were answered to satisfaction. Cardiac clearance was obtained prior to surgery.
--- NOTE | 2023-11-11 14:26 | XR_ITS ---
The [address] [address] Patient Name: KAVITA AUSTIN MRN: [id number] date: 1950 Sex: M Assigned Patient Location: [facility] Current Patient Location: [facility] Accession/Order Number: [id number] Exam Date: 11/11/2023 15:05 Report Date: 11/12/2023 11:05 At the request of: LACEY CERRATO Procedure: XR foot LT min 3V EXAM: XR foot LT min 3V HISTORY: postop xr pacu COMPARISON: 10/08/2023 10/11/2023. TECHNIQUE: Routine views of the XR foot LT min 3V FINDINGS/ XR/XR foot LT min 3V IMPRESSION: 1. No acute fractures. Irregular transverse lucency across the base of the first metatarsal most likely artifact. 2. Unremarkable soft tissues. 3. Revision first MTP arthrodesis. Maintained alignment. No evidence for hardware complication. Electronically authenticated by: SALOME DOAN Date: 11/12/2023 11:05
[2023-11-11 14:43] LABS: Glucometer 98 mg/dL (74-106)
== END 2023-11-11 15:45 | disposition home or self-care (01) ==
PROVIDERS: Anesthesiology; PCP Family Medicine; Visit Provider Podiatrist Foot & Ankle Surgery
PROC: (CPT 20680; principal; 2023-11-11 10:15)
DX: M20.21 Hallux rigidus, right foot (principal); M96.0 Pseudarthrosis after fusion or arthrodesis; I10 Essential (primary) hypertension; Z79.01 Long term (current) use of anticoagulants; I48.91 Unspecified atrial fibrillation; T84.84XA Pain due to internal orthopedic prosthetic devices, implants and grafts, initial encounter; G47.33 Obstructive sleep apnea (adult) (pediatric); N40.0 Benign prostatic hyperplasia without lower urinary tract symptoms; Z86.010 Personal history of colon polyps; Z86.16 Personal history of COVID-19; Z95.818 Presence of other cardiac implants and grafts; Z79.82 Long term (current) use of aspirin; K21.9 Gastro-esophageal reflux disease without esophagitis; Z96.641 Presence of right artificial hip joint
CPT/HCPCS: 20680; 20900; 28322; 28750; 36415; 64445; 73630; 76000; 82948; 85025; 87070; 87205; 99999; C1713; J2704

== ENCOUNTER 2023-12-03 13:35 | Outpatient (OUT) | payer MEDICARE, SELFPAY ==
--- NOTE | 2023-12-03 | XR_ITS ---
The [address] [address] Patient Name: KAVITA AUSTIN MRN: [id number] date: 1950 Sex: M Assigned Patient Location: [facility] Current Patient Location: [facility] Accession/Order Number: [id number] Exam Date: 12/03/2023 13:00 Report Date: 12/03/2023 15:48 At the request of: BARBIE CANSECO Procedure: XR foot LT min 3V EXAM: XR foot LT min 3V HISTORY: LEFT FOOT PAIN COMPARISON: 11/11/2023 TECHNIQUE: 3 views of the left foot were obtained. FINDINGS: The circular cast has been removed. Again seen is evidence of prior surgery with fusion at the first metatarsophalangeal joint accompanied by hardware. There is some irregular narrowing of the joint space, without complete osseous fusion. A screw is again seen at the head of the second metatarsal bone. An osteotomy is seen involving the distal aspect of the proximal phalanx of the second digit. XR/XR foot LT min 3V IMPRESSION: No acute fracture or dislocation. There is been mild progression of the fusion at the first metatarsophalangeal joint. Postsurgical changes are otherwise stable, as described. Electronically authenticated by: BARBIE LONG Date: 12/03/2023 15:48
== END 2023-12-03 13:36 | disposition home or self-care (01) ==
LOC: RAD 13:35
PROVIDERS: PCP Family Medicine; Visit Provider Podiatrist Foot & Ankle Surgery
DX: M20.22 Hallux rigidus, left foot (principal)
CPT/HCPCS: 73630

== ENCOUNTER 2023-12-24 09:17 | Outpatient (OUT) | payer MEDICARE, SELFPAY ==
--- NOTE | 2023-12-24 | XR_ITS ---
The [address] [address] Patient Name: KAVITA AUSTIN MRN: [id number] date: 1950 Sex: M Assigned Patient Location: [facility] Current Patient Location: [facility] Accession/Order Number: [id number] Exam Date: 12/24/2023 09:26 Report Date: 12/24/2023 11:19 At the request of: BARBIE CANSECO Procedure: XR foot LT min 3V PROCEDURE: XR foot LT min 3V COMPARISON: 12/03/2023 HISTORY: LEFT FOOT PAIN FINDINGS: BONES:Stable dorsal fusion first metatarsal-phalangeal joint with a plate and screws. Remote osteotomy and screw placement at of the second metatarsal. Remote resection head of the second proximal phalanx. Stable degenerative change with joint space narrowing marginal osteophyte formation SOFT TISSUES:Negative. No visible soft tissue swelling. EFFUSION:None visible. OTHER: Negative. XR/XR foot LT min 3V IMPRESSION: Stable postsurgical changes Electronically authenticated by: MARÍA BRYSON Date: 12/24/2023 11:19
--- OUTSIDE RECORDS SUMMARY | 2023-12-24 09:20 | XMS_ITS | CCD ---
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 Name Role Phone [place] Primary Care Physician DO Miguel Astorga Attending Provider MD [place] Primary Care Provider Miguel Astorga Admitting Unavailable [place] Primary [...] Attending Unavailable ESEQUIEL, Natali Gonzalez Attending Unavailable BRENNANTIAGO Admitting Unavailable BRENNAN, TIAGO Attending Unavailable BARAZIANUPAM Attending Unavailable BRENNAN, TIAGO Attending Unavailable BARAZIANUPAM Attending Unavailable BRENNAN, TIAGO Attending Unavailable Allergies Allergy Classification Reported Allergen(s) Allergy Type Date of Onset Reaction(s) Facility (1 source) No Known Medication Allergies; Translations: [No Known Medication Allergies] Propensity to adverse reactions (disorder) [facility] Repository Medications Current Medications Medication Drug [...] Start: 04-19-2022 take 1 capsule by mo [facility] once daily [facility] Active 1 [...] Daily, # 90 tab(s), Refills(s) 3, Pharmacy: [facility], [...] tab(s), Refills(s) 2, Pharmacy: [facility] 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] Onset: 03-11-2023 Episodic Other [...] Onset: 12-06-2022 Episodic Other aftercare (1 source) retirement (current) use of aspirin; Translations: [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 CURRENT USE OF ASPIRIN] Onset: 12-10-2022 Episodic [...] Results Test Name Value Interpretation Reference Range Facility Office Visiton 12-03-2023 Follow-up visit [id number] Oscar Manuel 1950 M Date Provider Department Center 12/03/2023 Patrice-TIAGO WILBURN [facility] Family History Problem Relation Age of Onset Other Mother Coronary artery disease Mother Other Father Family Status - Relation Status Age at Mother Father Level of Service:51774 MD OFFICE/OUTPATIENT NEW HIGH MDM 60 MINUTES Normal [facility] Orders Onlyon 12-03-2023 Orders Only [id number] Oscar Manuel 1950 M Date Provider Department Center 12/03/2023 TRINITY DIAZ KATHARINA [facility] Family History Problem Relation Age of Onset Other Mother Coronary artery disease Mother Other Father Family Status - Relation Status Age at Mother Father Normal [facility] Office Visiton 07-30-2023 Follow-up visit [id number] Oscar Manuel 1950 M Date Provider Department Center 07/30/2023 ANUPAM ELDER KATHARINA [facility] Family History Problem Relation Age of Onset Other Mother Coronary artery disease Mother Other Father Family Status - Relation Status Age at Mother Father Level of Service:20193 MD OFFICE/OUTPATIENT ESTABLISHED LOW MDM 20-29 MIN Normal [facility] Lab Reportson 06-25-2023 Lab Reports [id number] Normal [facility] Ambulatory Visit Summaryon 0 06-24-2023 Ambulatory Visit Summary OSCAR MANUEL :1950 Visit Date:06/24/2023 Ambulatory Visit Instructions 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 Take [id number] and prescription medicines only as told by [...] the medicine (more content not included)... Normal [facility] Reminderson 06-24-2023 Reminders - From: Katheryn Fernandez To: ALEXANDRA Solares; Sent: 06/24/2023 16:41:34 EDT Show up: 05/24/2024 16:41:00 EDT Subject: PSA Reminder Message Please Remember to:_have pt get PSA (done at [facility]) prior to appt. 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 Normal [facility] Comment on above: Result Comment: Elec tronically Signed By: Natali SOLARES MD\.br\Date and Time Signed: 06/24/23 16:41 EDT\.br\Electronically Co-Signed By: Katheryn Fernandez\.br\Date and Time Co-Signed: 06/24/23 16:39 EDT Superficial Wound Cultureon 03-18-2023 Superficial Wound Culture ORGANISM: Methicillin Resis Staph Aureus (O:MRSA) Quantity of Growth Moderate Growth Aerobic DEXTER Charge (PCMIC38) --- SUSCEPTIBILITY -- ORGANISM: O:MRSA ANTIBIOTIC INTERPRETATION DEXTER Azithromycin R >4 Ceftaroline S <0.5 Ciprofloxacin R >2 Clindamycin R <0.25 Daptomycin S <0.5 Linezolid S 4 Oxacillin R >2 Penicillin R >2 Tetracycline S <4 Trimethoprim/Sulfameth oxazole S <0.5 Vancomycin S 1 S = [...] RESISTANT TO ALL B-LACTAM DRUGS. PERFORMED BY: [place] [address] PATHOLOGIST FIRE CONTROL TECHNICIAN ISABELLA MCKEON M.D. Normal [facility] Comment on above: Performed By: #### C USUP #### [address] ECHOCARDIO M/2D COMPLETEon 0 03-12-2023 ECHOCARDIO M/2D COMPLETE Patient: OSCAR MANUEL Exam Date: 03/12/2023 : 1950 Gender:M Ordering : DR [place] . Admission #: [id number] Family : TIAGO WILBURN MD Order #: [id number] CLICK HERE TO VIEW EXAM ECHOCARDIOGRAM REPORT [...] Solorio M.D. on 03/12/2023 at 18:41 Normal [facility] US CAROTID ART BILon 04-18-2 023 US CAROTID ART MOISES EXAMINATION: US CAROTID ART MOISES HISTORY: Dizziness and giddiness COMPARISON: [...] by: MARÍA BRYSON Date: 2023-03-12 15:01 Normal [facility] Telemedicineon 03-08-2023 Telemedicine [id number] Oscar Manuel 1950 Date Provider Department Center 03/08/2023 RaquelBRENNANTIAGO [facility] Family History Problem Relation Age of Onset Other Mother Coronary artery disease Mother Other Father Family Status - Relation Status Age at Mother Father Level of Service:05014 MD PHYS/QHP TELEPHONE EVALUATION 21-30 MIN Normal [facility] CBC AUTO DIFFon 03-06-2023 BASO # 0.1 103/ul Normal 0.0-0.1 [facility] Comment on above: Performed By: #### C BC #### [facility] [address] [place] [address] Dr. Sanjuana Kasper Basophils/100 WBC (Bld) 0.9 % Normal 0.2-2.0 [facility] Comment on above: Performed By: #### C BC #### [facility] [address] [place] [address] Dr. Sanjuana Kasper EO # 0.3 103/ul Normal 0.0-0.7 [facility] Comment on above: Performed By: #### C BC #### [facility] [address] [address] [address] Sanjuana Kasper Eosinophils/100 WBC (Bld) 5.0 % Normal 0.9-7.0 [facility] Comment on above: Performed By: #### C BC #### [facility] [address] [place] [address] Dr. Sanjuana Kasper Erythrocyte distribution width (RBC) [Ratio] 13.5 % Normal 11.0-15.0 [facility] Comment on above: Performed By: #### C BC #### [facility] [address] [place] [address] Dr. Sanjuana Kasper Hematocrit (Bld) [Volume fraction] 41.9 % Critically low 42.0-54.0 [facility] Comment on above: Performed By: #### C BC #### [facility] [address] [place] [address] Dr. Sanjuana Kasper Hemoglobin (Bld) [Mass/Vol] 13.9 g/dL Critically low 14.0-18.0 [facility] Comment on above: Performed By: #### C BC #### [facility] [address] [place] [address] Dr. Sanjuana Kasper IG # 0.02 10e3/ul Normal 0.00-0.03 [facility] Comment on above: Performed By: #### C BC #### [facility] [address] [place] [address] Dr. Sanjuana Kasper IG % 0.3 % Normal 0.0-0.5 [facility] Comment on above: Performed By: #### C BC #### [facility] [address] [place] [address] Dr. Sanjuana Kasper LYMPH # 1.4 103/ul Normal 1.2-3.8 [facility] Comment on above: Performed By: #### C BC #### [facility] [address] [place] [address] Dr. Sanjuana Kasper Lymphocytes/100 WBC (Bld) 23.8 % Normal 20.5-60.0 [facility] Comment on above: Performed By: #### C BC #### [facility] [address] [place] [address] Dr. Sanjuana Kasper MANUAL DIFF REQ NO Normal [facility] Comment on above: Performed By: #### C BC #### [facility] [address] [place] [address] Dr. Sanjuana Kasper MCH (RBC) [Entitic mass] 29.5 pg Normal 25.9-34.0 [facility] Comment on above: Performed By: #### C BC #### [facility] [address] [place] [address] Dr. Sanjuana Kasper MCHC (RBC) [Mass/Vol] 33.2 g/dL Normal 29.9-35.2 [facility] Comment on above: Performed By: #### C BC #### [facility] [address] [address] [address] Sanjuana Kasper MCV (RBC) [Entitic vol] 89.0 fL Normal 80.0-94.0 [facility] Comment on above: Performed By: #### C BC #### [facility] [address] [address] [address] Sanjuana Kasper MONO # 0.4 103/ul Normal 0.3-0.8 [facility] Comment on above: Performed By: #### C BC #### [facility] [address] [place] [address] Dr. Sanjuana Kasper Monocytes/100 WBC (Bld) 7.1 % Normal 1.7-12.0 [facility] Comment on above: Performed By: #### C BC #### [facility] [address] [place] [address] Dr. Sanjuana Kasper NEUT # 3.7 103/ul Normal 1.4-6.5 [facility] Comment on above: Performed By: #### C BC #### [facility] [address] [place] [address] Dr. Sanjuana Kasper Neutrophils/100 WBC (Bld) 62.9 % Normal 43.0-75.0 [facility] Comment on above: Performed By: #### C BC #### [facility] [address] [place] [address] Dr. Sanjuana Kasper Platelet mean volume (Bld) [Entitic vol] 10.6 fL Normal 9.5-13.5 [facility] Comment on above: Performed By: #### C BC #### [facility] [address] [place] [address] Dr. Sanjuana Kasper PLT 259 103/ul Normal 150-450 [facility] Comment on above: Performed By: #### C BC #### [facility] [address] [place] [address] Dr. Sanjuana Kasper RBC 4.71 106/ul Normal 4.70-6.10 [facility] Comment on above: Performed By: #### C BC #### [facility] [address] [address] [address] Sanjuana Kasper WBC 5.8 103/ul Normal 4.0-11.0 [facility] Comment on above: Performed By: #### C BC #### [facility] [address] [address] [address] Sanjuana Kasper GLYCOHEMOGLOBIN A1Con 2022 ADA RECOMMENDATION SEE BELOW Normal [facility] Comment on above: Result Comment: ADA RECOMMENDED LIMIT 4.0 - 6.0 ADA THERAPEUTIC TARGET < 7.0 ACTION SUGGESTED > 7.0 Performed By: #### A 1C #### [facility] [address] [place] [address] Dr. Sanjuana Kasper Glucose [Mass/Vol] 108 mg/dL Normal [facility] Comment on above: Performed By: #### A 1C #### [facility] [address] [place] [address] Dr. Sanjuana Kasper HbA1c (Bld) [Mass fraction] 5.4 % Normal 4.5-6.2 [facility] Comment on above: Performed By: #### A 1C #### [facility] [address] [place] [address] Dr. Sanjuana Kasper LIPID PROFILEon 03-06-2023 CHOL-HDL RATIO NORM SEE BELOW Normal [facility] Comment on above: Result Comment: 3.3 - 4.4 LOW RISK 4.4 - 7.1 AVERAGE RISK 7.1 - 11.0 MODERATE RISK >11.0 HIGH RISK Performed By: #### T SH, LIPID, BMP, LIVER #### [facility] [address] [address] [address] Sanjuana Kasper Cholesterol [Mass/Vol] 192 mg/dL Normal <=200 [facility] Comment on above: Performed By: #### T SH, LIPID, BMP, LIVER #### [facility] [address] [address] [address] Sanjuana Kasper Cholesterol in HDL [Mass/Vol] 61 mg/dL Critically high 40-60 [facility] Comment on above: Performed By: #### T SH, LIPID, BMP, LIVER #### [facility] [address] [address] [address] Sanjuana Kasper Cholesterol in LDL [Mass/Vol] 122.2 mg/dL Normal [facility] Comment on above: Performed By: #### T SH, LIPID, BMP, LIVER #### [facility] [address] [address] [address] Sanjuana Kasper Cholesterol.total/Chol esterol in HDL [Mass ratio] 3.1 {ratio} Normal [facility] Comment on above: Performed By: #### T SH, LIPID, BMP, LIVER #### [facility] [address] [address] [address] Sanjuana Kasper HDL NORMAL > or = 60 mg/dl - LO W CARDIOVASCULAR RISK <40 mg/dl - HIGH CARDIOVASCULAR RISK Normal [facility] Comment on above: Performed By: #### T SH, LIPID, BMP, LIVER #### [facility] [address] [address] [address] Sanjuana Kasper LDL CALC NORMAL SEE BELOW Normal [facility] Comment on above: Result Comment: <100 mg/dl OPTIMAL 100 - 129 mg/dl NEAR OR ABOVE OPTIMAL 130 - 159 mg/dl BORDERLINE HIGH 160 - 189 mg/dl HIGH >190 mg/dl VERY HIGH Performed By: #### T SH, LIPID, BMP, LIVER #### [facility] [address] [address] [address] Sanjuana Kasper Triglyceride [Mass/Vol] 44 mg/dL Normal <=150 [facility] Comment on above: Performed By: #### T SH, LIPID, BMP, LIVER #### [facility] [address] [address] [address] Sanjuana Kasper VLDL CALC 8.8 mg/dL Normal [facility] Comment on above: Performed By: #### T SH, LIPID, BMP, LIVER #### [facility] [address] [address] [address] Sanjuana Kasper LIVER PROFILEon 03-06-2023 Albumin [Mass/Vol] 3.6 g/dL Normal 3.4-5.0 [facility] Comment on above: Performed By: #### T SH, LIPID, BMP, LIVER ####[facility] [address] [address]Dr. Sanjuana Kasper Albumin/Globulin [Mass ratio] 1.0 {ratio} Normal [facility] Comment on above: Performed By: #### T SH, LIPID, BMP, LIVER ####[facility] [address] [address]Dr. Sanjuana Kasper ALP [Catalytic activity/Vol] 91 U/L Normal 46-116 [facility] Comment on above: Performed By: #### T SH, LIPID, BMP, LIVER ####[facility] [address] [place], [place] [address]Dr. Sanjuana Kasper ALT [Catalytic activity/Vol] 28 U/L Normal 16-63 [facility] Comment on above: Performed By: #### T SH, LIPID, BMP, LIVER ####[facility] [address] [place], [place] [address]Dr. Sanjuana Kasper AST [Catalytic activity/Vol] 16 U/L Normal 15-37 [facility] Comment on above: Performed By: #### T SH, LIPID, BMP, LIVER ####[facility] [address] [place], [place] [address]Dr. Sanjuana Kasper BILI, CONJUGATED 0.1 mg/dL Normal 0.0-0.2 [facility] Comment on above: Performed By: #### T SH, LIPID, BMP, LIVER ####[facility] [address] [place], [place] [address]Dr. Sanjuana Kasper Bilirubin [Mass/Vol] 0.4 mg/dL Normal 0.2-1.0 [facility] Comment on above: Performed By: #### T SH, LIPID, BMP, LIVER ####[facility] [address] [place], [place] [address]Dr. Sanjuana Kasper Globulin (S) [Mass/Vol] 3.6 g/dL Normal [facility] Comment on above: Performed By: #### T SH, LIPID, BMP, LIVER ####[facility] [address] [address]Dr. Sanjuana Kasper Protein [Mass/Vol] 7.2 g/dL Normal 6.4-8.2 [facility] Comment on above: Performed By: #### T SH, LIPID, BMP, LIVER ####[facility] [address] [address]Dr. Carlayazmin Kasper PROF CHEM 8 (BAS METB)on Anion gap [Moles/Vol] 12.2 mmol/L Normal [facility] Comment on above: Performed By: #### T SH, LIPID, BMP, LIVER ####[facility] [address] [address]Dr. Sanjuana Ranjith Calcium [Mass/Vol] 9.1 mg/dL Normal 8.5-10.1 [facility] Comment on above: Performed By: #### T SH, LIPID, BMP, LIVER ####[facility] [address] [address]Dr. Sanjuana Kasper Chloride [Moles/Vol] 106 mmol/L Normal 98-107 [facility] Comment on above: Performed By: #### T SH, LIPID, BMP, LIVER ####[facility] [address] [address]Dr. Sanjuana Ranjith CO2 [Moles/Vol] 26.9 mmol/L Normal 21.0-32.0 [facility] Comment on above: Performed By: #### T SH, LIPID, BMP, LIVER ####[facility] [address] [address]Dr. Sanjuana Kasper Creatinine [Mass/Vol] 0.98 mg/dL Normal 0.70-1.30 [facility] Comment on above: Performed By: #### T SH, LIPID, BMP, LIVER ####[facility] [address] [address]Dr. Sanjuana Ranjith EGFR-AF ANDORRAN >60 Normal >=60 [facility] Comment on above: Performed By: #### T SH, LIPID, BMP, LIVER ####[facility] [address] [address]Dr. Sanjuana Kasper EGFR-NON AF ANDORRAN >60 Normal >=60 [facility] Comment on above: Performed By: #### T SH, LIPID, BMP, LIVER ####[facility] [address] [id number] Sanjuana Kasper Glucose [Mass/Vol] 94 mg/dL Normal 74-106 [facility] Comment on above: Performed By: #### T SH, LIPID, BMP, LIVER ####[facility] [address] [address]Dr. Sanjuana Kasper Potassium [Moles/Vol] 4.1 mmol/L Normal 3.5-5.1 [facility] Comment on above: Performed By: #### T SH, LIPID, BMP, LIVER ####[facility] [address] [address]Dr. Sanjuana Kasper Sodium [Moles/Vol] 141 mmol/L Normal 136-145 [facility] Comment on above: Performed By: #### T SH, LIPID, BMP, LIVER ####[facility] [address] [id number] Sanjuana Kasper Urea nitrogen [Mass/Vol] 17.0 mg/dL Normal 7.0-18.0 [facility] Comment on above: Performed By: #### T SH, LIPID, BMP, LIVER ####[facility] [address] [address]Dr. Sanjuana Kasper Urea nitrogen/Creatinine [Mass ratio] 17.3 mg/mg Normal [facility] Comment on above: Performed By: #### T SH, LIPID, BMP, LIVER ####[facility] [address] [address]Dr. Sanjuana Kasper TSHon 03-06-2023 TSH 1.951 uIU/mL Normal 0.358-3.740 [facility] Comment on above: Performed By: #### T SH, LIPID, BMP, LIVER #### [facility] [address] [address] [address] Sanjuana Kasper Office Visiton 02-01-2023 Follow-up visit [id number] Oscar Manuel 1950 M Date Provider Department Center 02/01/2023 1596-ANUPAM COOK [facility] Family History Problem Relation Age of Onset Other Mother Coronary artery disease Mother Other Father Family Status - Relation Status Age at Mother Father Level of Service:08008 MD POSTOP FOLLOW UP VISIT RELATED TO ORIGINAL PX Reason for Visit and Comments: Wound Check [[id number]] Normal [facility] HPon 01-24-2023 [facility] Electrophysiology Consult Note Reason for visit: LOOP [...] 180 mg and aspirin 325 mg. his [id number] is 1 for age, possibly 2 for [...] A. fib surveillance which will be booked. Prir HPI Mr. Manuel is a 71 y/o M with past medical history of atrial fibrillation that was diagnosed few years ago where he was admitted to [facility] with A. fib with rapid ventricular rate. [...] KOENIG, palpitations, orthopnea, PND, lower extremity edema, dizziness/lightheadedn ess, syncope, issues with bleeding. ----- Holter monitor placed for 48 hours from 12/24/2021 to 12/10/2021 at [facility] was reviewed by me and shows PVC burden of less than 1% and PVC count of 6%. Occasional nonsustained atrial tachycardia few beats seen but no atrial fibrillation noted. No ventricular tachycardia noted EKG 10/17/2021 shows sinus rhythm with normal intervals Echocardiogram done at [facility] on 09/06/2021 shows ejection fraction of 60% [...] in t (more content not included)... Normal [facility] Orders Onlyon 01-24-2023 Orders Only [id number] Oscar Manuel 1950 Date Provider Department Center 01/24/2023 [facility] Family History Problem Relation Age of Onset Other Mother Coronary artery disease Mother Other Father Family Status - Relation Status Age at Mother Father Normal [facility] CT FOOT LT WO CONon 12-20-[address] FOOT LT WO CON EXAMINATION: CT [...] by: RAZ MATOS Date: 2022-12-20 14:53 Normal [facility] POINT OF CARE GLUCOSEon 11-0 Glucose [Mass/Vol] 94 mg/dL Normal 74-106 [facility] Comment on above: Performed By: #### P OCGLUC #### [facility] [address] [place], [place] [address] Dr. Sanjuana Kasper XR FOOT LT 2Von [...] by: MARÍA BRYSON Date: 2022-09-27 18:28 Normal [facility] Covid-19 PCR (CVDTB)on 08-26 SARS-CoV-2 (COVID-19) RNA DAISY+probe Ql (Unsp spec) Not detected Normal NOT DETECTED [facility] Comment on above: Result Comment: This test is not yet approved or cleared by the [place] FDA. When there are no FDA-approved or cleared tests available, and other criteria are met, FDA can make tests available under an emergency access mechanism called an Emergency Use Authorization (EUA). The EUA for this test is supported by the [place] of Health and Human Service's (HHS's) declaration [...] with SARS-CoV-2. Performed By: #### C VDTBH ####[facility] [address] [place], [place] [address]TqDr. Sanjuana Kasper PROF CHEM 8 (BAS METB)on Anion gap [Moles/Vol] 11.6 mmol/L Normal Th [facility] Comment on above: Performed By: #### B MP ####[facility] [address] [place] [address]Dr. Sanjuana Kasper Calcium [Mass/Vol] 8.6 mg/dL Normal 8.5-10.1 [facility] Comment on above: Performed By: #### B MP ####[facility] [address] [place] [address]Dr. Sanjuana Kasper Chloride [Moles/Vol] 107 mmol/L Normal 98-107 [facility] Comment on above: Performed By: #### B MP ####[facility] [address] [place] [address]Dr. Sanjuana Kasper CO2 [Moles/Vol] 26.2 mmol/L Normal 21.0-32.0 [facility] Comment on above: Performed By: #### B MP ####[facility] [address] [place], [place] [address]Dr. Sanjuana Kasper Creatinine [Mass/Vol] 1.28 mg/dL Normal 0.70-1.30 [facility] Comment on above: Performed By: #### B MP ####[facility] [address] [place], [place] [address]Dr. Sanjuana Kasper EGFR-AF ANDORRAN >60 Normal >=60 [facility] Comment on above: Performed By: #### B MP ####[facility] [address] [place] [address]Dr. Sanjuana Ranjith EGFR-NON AF ANDORRAN 56 mL/min/1.73m2 Critically low >=60 [facility] Comment on above: Performed By: #### B MP ####[facility] [address] [place] [address]Dr. Sanjuana Kasper Glucose [Mass/Vol] 121 mg/dL Critically high 74-106 [facility] Comment on above: Performed By: #### B MP ####[facility] [address] [place] [address]Dr. Carlayazmin Kasper Potassium [Moles/Vol] 3.8 mmol/L Normal 3.5-5.1 [facility] Comment on above: Performed By: #### B MP ####[facility] [address] [place] [address]Dr. Sanjuana Kasper Sodium [Moles/Vol] 141 mmol/L Normal 136-145 [facility] Comment on above: Performed By: #### B MP ####[facility] [address] [place] [address]Dr. Sanjuana Kasper Urea nitrogen [Mass/Vol] 24.0 mg/dL Critically high 7.0-18.0 [facility] Comment on above: Performed By: #### B MP ####[facility] [address] [place], [place] [address]Dr. Sanjuana Kasper Urea nitrogen/Creatinine [Mass ratio] 18.8 mg/mg Normal [facility] Comment on above: Performed By: #### B MP ####[facility] [address] [place], [place] [address]Dr. Sanjuana Kasper PROTIMEon 09-21-2022 INR Coag (PPP) [Relative time] 1.05 {INR} Normal [facility] Comment on above: Performed By: #### P TT, PT ####[facility] [address] [place], [place] [address]Dr. Sanjuana Kasper INR GUIDELINES SEE BELOW Normal [facility] Comment on above: Result Comment: VERONICA RED INR: 2.0 - 3.0 CONDITIONS NOT LISTED BELOW 2.5 - 3.5 FOR PROSTHETIC HEART VALVE REPLACEMENT 2.5 - 3.5 RECURRENT THROMBOSIS Performed By: #### P TT, PT ####[facility] [address] [place], [place] [address]Dr. Sanjuana Kasper PT Coag (PPP) [Time] 11.3 s Normal 9.0-11.6 [facility] Comment on above: Performed By: #### P TT, PT ####[facility] [address] [place], [place] [address]Dr. Sanjuana Kasper PTTon 09-21-2022 aPTT Coag (Bld) [Time] 30.0 s Normal 22.3-36.2 [facility] Comment on above: Performed By: #### P TT, PT ####[facility] [address] [place], [place] [address]DqYonatan Kasper XR FOOT MOISES MIN 3 VIEWSon [...] MARÍA BRYSON Date: 2022-08-01 17:51 Normal [facility]on 05-25 SARS-CoV-2 (COVID-19) RNA DAISY+probe Ql (Unsp spec) Not detected Normal NOT DETECTED [facility] Comment on above: Result Comment: This test is not yet approved or cleared by the [place] FDA. When there are no FDA-approved or cleared tests available, and other criteria are met, FDA can make tests available under an emergency access mechanism called an Emergency Use Authorization (EUA). The EUA for this test is supported by the [place] of Health and Human Service's (HHS's) declaration [...] SARS-CoV-2. Performed By: #### C VDTB #### [facility] [address] [id number] Sanjuana Medina 04-20-2022 L -- ---- Specimen: [id number] Received: 04/20/22 Status: LENIN Jameson Num: [id number] Spec Type: Surgical Subm Dr: Miguel Astorga DO Tissues: A Debridement-Skin/Other Than Skin (SCALP) Procedures: HE Stain, Gross/Micro L3 ---- Patient Age/Sex Location Account Attending Physician ---- Oscar Manuel 72/M [place] [id number] Miguel Astorga DO ---- SPEC NUM: [id number] RECD: 04/20/22 STATUS: LENIN RAMOS: [id number] DEMARCUS: 04/20/22- SUBM DR: Miguel Astorga DO ENTERED: 04/20/22 [facility] DR: SPEC TYPE: Surgical DEPT: S [facility] BY: [id number] ORDERED: HE Stain, Gross/Micro L3 ORDERED: HE [...] thin rim of owusu unremarkable appearing skin. Form Layer sections are submitted in one cassette labeled A1. Type of Fixative: 10% Neutral Buffered Formalin (NORM/ROHIT) Microscopic Description One glass slide with H E stained material has been examined. The microscopic findings support the above pathologic diagnosis. ---- Specimen: [id number] Received: 04/20/22 [facility] [place] Num: [id number] Spec Type: Surgical Subm Dr: Miguel Astorga DO Tissues: A Debridement-Skin/Other Than Skin (SCALP) Procedures: HE Stain, Gross/Micro L3 ---- Patient: TigistOscar A [id number] (Continued) ---- Specimen: [id number] Received: 04/20/22 (Continued) Signed (signature on file) Favio Chong MD 04/24/222025 ---- Specimen: [id number] Received: 04/20/22 Status: LENIN [place] Num: [id number] Spec Type: Surgical Subm Dr: Miguel Astorga DO Tissues: A Debridement-Skin/Other Than Skin (SCALP) Procedures: NATALIA Mcdonald, Gross/Micro L3 ---- Patient: Oscar Manuel [id number] (Continued) ---- Specimen: [id number] Received: 04/20/22 (Continued) CPT Codes 17019 ---- ---- Specimen: [id number] Received: 04/20/22 Status: LENIN Jameson Num: [id number] Spec Type: Surgical Subm Dr: Miguel Astorga DO Tissues: A Debridement-Skin/Other Than Skin (SCALP) Procedures: NATALIA Mcdonald, Gross/Micro L3 ---- Patient: Oscar Manuel [id number] (Continued) ---- Signed (signature on file) Favio Chong MD 04/24/222025 Normal [facility] Basic Metabolic Panelon 05-2 Calcium [Mass/Vol] 9.1 mg/dL Normal 8.2-10.[address] [facility] Comment on above: Result Comment: PERF ORMED BY: [place] [address] PATHOLOGIST FIRE CONTROL TECHNICIAN ISABELLA MCKEON M.D. Performed By: #### B MP, CBC #### [address] Chloride [Moles/Vol] 103 mmol/L Normal 95-114 [facility] Comment on above: Performed By: #### B MP, CBC #### [address] CO2 [Moles/Vol] 25.0 mmol/L Normal 22.0-30.0 [facility] Comment on above: Performed By: #### B MP, CBC #### [address] Creatinine [Mass/Vol] 1.13 mg/dL Normal 0.64-1.27 [facility] Comment on above: Performed By: #### B MP, CBC #### [address] Estimated GFR ( Ariane > 60 [facility] Comment on above: Result Comment: GFR estimated reference range: According to KDOQI guidelines, <60 ml/min/1.73m2 is sufficient to diagnose a patient with chronic kidney disease. Performed By: #### B MP, CBC #### [address] Estimated GFR (Non- Am > 60 [facility] Comment on above: Performed By: #### B MP, CBC #### [place] [address] [place] Glucose [Mass/Vol] 102 mg/dL High 70-[address] [facility] Comment on above: Result Comment: [place] Glucose Reference Range is dependent on time and content of last meal. Glucose of more than 200 mg/dL in a nonstressed, ambulatory subject supports the diagnosis of Diabetes Mellitus. ADA recommended reference range Performed By: #### B MP, CBC #### [facility] [address] Potassium [Moles/Vol] 4.2 mmol/L Normal 3.5-5.1 [facility] Comment on above: Performed By: #### B MP, CBC #### [facility] [address] Sodium [Moles/Vol] 137 mmol/L Normal 136-[address] [facility] Comment on above: Performed By: #### B MP, CBC #### [facility] [address] Urea nitrogen [Mass/Vol] 18 mg/dL Normal 9-23 [facility] Comment on above: Performed By: #### B MP, CBC #### [facility] [address] Basophils Auto (Bld) [#/Vol] Ordered By: Miguel Astorga on 04-19-2022 Basophils (Bld) [#/Vol] 0.1 10*3/uL 0.0-0.2 [facility] Basophils/100 WBC Auto (Bld) Ordered By: Miguel Astorga on 04-19-2022 Basophils/100 WBC (Bld) 0.9 % [facility] Blood hemoglobin measurement (mass/volume)Ordered By: Miguel Astorga on 04-19-2022 Hemoglobin (Bld) [Mass/Vol] 14.3 g/dL 13.0-17.0 [facility] Blood leukocytes automated c ount (number/volume)Ordered By: Miguel Astorga on 04-19-2022 WBC (Bld) [#/Vol] 5.5 10*3/uL 4.5-11.[address] [facility] COVID-19 FRMCon 04-19-2022 SARS-CoV-2 (COVID-19) RNA DAISY+probe Ql (Unsp spec) Negative Normal Negative [facility] Comment on above: Order Comment: Comme nt For surgery tomorrow Healthcare Worker?: N Result Comment: Testing for SARS-CoV-2 by RT-PCR This test was developed and its performance characteristics determined by [employer]) and validated at the [facility]. This test has not been FDA cleared [...] is terminated or revoked sooner. PERFORMED BY: [place] [address] PATHOLOGIST FIRE CONTROL TECHNICIAN ISABELLA MCKEON M.D. Performed By: #### C OVID 19 [facility] #### [address] COVID-19 Positive/NegativeOr dered By: Miguel Astorga on 04-19-2022 SARS-CoV-2 (COVID-19) N gene DAISY+probe Ql (Resp) Negative Negative [facility] Comment on above: Testing for SARS-CoV -2 by RT-PCR This test was developed and its performance characteristics determined by [employer]) and validated at the [facility]. This test has not been FDA cleared [...] Basophils (Bld) [#/Vol] 0.1 10*3/uL Normal 0.0-0.2 [facility] Comment on above: Result Comment: PERF ORMED BY: [place] [address] PATHOLOGIST FIRE CONTROL TECHNICIAN ISABELLA MCKEON M.D. Performed By: #### B MP, CBC #### [address] Basophils/100 WBC (Bld) 0.9 % Normal . [facility] Comment on above: Performed By: #### B MP, CBC #### [address] Eosinophils (Bld) [#/Vol] 0.2 10*3/uL Normal 0.0-0.45 [facility] Comment on above: Performed By: #### B MP, CBC #### [address] Eosinophils/100 WBC (Bld) 3.9 % Normal . [facility] Comment on above: Performed By: #### B MP, CBC #### [address] Erythrocyte distribution width (RBC) [Ratio] 14.1 % Normal 12.0-14.8 [facility] Comment on above: Performed By: #### B MP, CBC #### [address] Hematocrit (Bld) [Volume fraction] 43.0 % Normal 38.8-50.0 [facility] Comment on above: Performed By: #### B MP, CBC #### [address] Hemoglobin (Bld) [Mass/Vol] 14.3 g/dL Normal 13.0-17.0 [facility] Comment on above: Performed By: #### B MP, CBC #### [facility] [address] [place] [address] [place] Lymphocytes (Bld) [#/Vol] 1.4 10*3/uL Normal 1.00-4.8 [facility] Comment on above: Performed By: #### B MP, CBC #### [facility] [address] [place] [id number] [place] Lymphocytes/100 WBC (Bld) 25.7 % Normal . [facility] Comment on above: Performed By: #### B MP, CBC #### [facility] [address] [place] [address] [place] MCH (RBC) [Entitic mass] 29.9 pg Normal 27.5-35.2 [facility] Comment on above: Performed By: #### B MP, CBC #### [facility] [address] [place] [address] [place] MCV (RBC) [Entitic vol] 89.8 fL Normal 83.5-101 [facility] Comment on above: Performed By: #### B MP, CBC #### [facility] [address] [place] [address] [place] Mean Corpuscular HGB Conc 33.3 g/dL Normal 32.5-35.6 [facility] Comment on above: Performed By: #### B MP, CBC #### [facility] [address] [place] [address] [place] Monocytes (Bld) [#/Vol] 0.4 10*3/uL Normal 0.0-0.8 [facility] Comment on above: Performed By: #### B MP, CBC #### [facility] [address] [place] [address] [place] Monocytes/100 WBC (Bld) 6.9 % Normal . [facility] Comment on above: Performed By: #### B MP, CBC #### [facility] [address] [place] [address] [place] Neutrophils (Bld) [#/Vol] 3.5 10*3/uL Normal 1.8-7.7 [facility] Comment on above: Performed By: #### B MP, CBC #### [facility] [address] [place] [address] [place] Neutrophils/100 WBC (Bld) 62.6 % Normal . [facility] Comment on above: Performed By: #### B MP, CBC #### [facility] [address] [place] [address] [place] Nucleated RBC/100 WBC (Bld) [Ratio] 0.1 % Normal 0-0.5 [facility] Comment on above: Performed By: #### B MP, CBC #### [facility] [address] Platelet mean volume (Bld) [Entitic vol] 8.9 fL Normal 6.6-10.1 [facility] Comment on above: Performed By: #### B MP, CBC #### [facility] [address] [place] [address] [place] Platelets (Bld) [#/Vol] 260 10*3/uL Normal 150-450 [facility] Comment on above: Performed By: #### B MP, CBC #### [facility] [address] [place] [address] [place] RBC (Bld) [#/Vol] 4.79 10*6/uL Normal 3.90-5.60 [facility] Comment on above: Performed By: #### B MP, CBC #### [facility] [address] [place] [address] [place] WBC (Bld) [#/Vol] 5.5 10*3/uL Normal 4.5-11.[address] [facility] Comment on above: Performed By: #### B MP, CBC #### [place] [address] [place] Creatinine and Glomerular fi ltration rate.predicted panel (S/P/Bld)Ordered By: Miguel Astorga on 04-19-2022 Creatinine [Mass/Vol] 1.13 mg/dL 0.64-1.27 [facility] ECG 12 lead ECGon 04-19-2022 ECG 12 lead ECG [facility] [address] [place] [address] Electrocardiograph Report Signed Patient: Oscar Manuel MR#: [id number] : 1950 Acct:[id number] Age/Sex: 72 / M ADM Date: 04/19/22 Loc: PS Room: Type: [facility] Attending Dr: Miguel Astorga DO Ordering Provider: [...] ECGs available Confirmed by SUZIE MCLEAN MD ([facility]) on 04/20/2022 3:16:43 PM Referred By: TAVARES ASTORGA Electronically Signed By:SUZIE MCLEAN MD Transcribed By: MUS Signed By Suzie Mclean MD 0 04/20/22 1516 Normal [facility] Eosinophils Auto (Bld) [#/Vo l]Ordered By: Miguel Astorga on 04-19-2022 Eosinophils (Bld) [#/Vol] 0.2 10*3/uL 0.0-0.45 [facility] Eosinophils/100 WBC Auto (Bl d)Ordered By: Miguel Astorga on 04-19-2022 Eosinophils/100 WBC (Bld) 3.9 % [facility] Erythrocyte distribution wid th Auto (RBC) [Ratio]Ordered By: Miguel Astorga on 04-19-2022 Erythrocyte distribution width (RBC) [Ratio] 14.1 % 12.0-14.8 [facility] Estimated glomerular filtrat ion rate (GFR) non- AmericanOrdered By: Miguel Astorga on 04-19-2022 GFR/1.73 sq M.predicted among non-blacks MDRD (S/P/Bld) [Vol rate/Area] > 60 mL/Min [facility] Hematocrit Auto (Bld) [Volum e fraction]Ordered By: Miguel Astorga on 04-19-2022 Hematocrit (Bld) [Volume fraction] 43.0 % 38.8-50.0 [facility] Laboratory - Hematology and Cell countsOrdered By: Miguel Astorga on 04-19-2022 Nucleated RBC/100 WBC (Bld) [Ratio] 0.1 % 0-0.5 [facility] Lymphocytes Auto (Bld) [#/Vo l]Ordered By: Miguel Astorga on 04-19-2022 Lymphocytes (Bld) [#/Vol] 1.4 10*3/uL 1.00-4.8 [facility] Lymphocytes/100 WBC Auto (Bl d)Ordered By: Miguel Astorga on 04-19-2022 Lymphocytes/100 WBC (Bld) 25.7 % [facility] MCH Auto (RBC) [Entitic mass ]Ordered By: Miguel Astorga on 04-19-2022 MCH (RBC) [Entitic mass] 29.9 pg 27.5-35.2 [facility] MCHC Auto (RBC) [Mass/Vol]Or dered By: Miguel Astorga on 04-19-2022 MCHC (RBC) [Mass/Vol] 33.3 g/dL 32.5-35.6 [facility] MCV Auto (RBC) [Entitic vol] Ordered By: Miguel Astorga on 04-19-2022 MCV (RBC) [Entitic vol] 89.8 fL 83.5-101 [facility] Monocytes Auto (Bld) [#/Vol] Ordered By: Miguel Astorga on 04-19-2022 Monocytes (Bld) [#/Vol] 0.4 10*3/uL 0.0-0.8 [facility] Monocytes/100 WBC Auto (Bld) Ordered By: Miguel Astorga on 04-19-2022 Monocytes/100 WBC (Bld) 6.9 % [facility] Neutrophils Auto (Bld) [#/Vo l]Ordered By: Miguel Astorga on 04-19-2022 Neutrophils (Bld) [#/Vol] 3.5 10*3/uL 1.8-7.7 [facility] Neutrophils/100 WBC Auto (Bl d)Ordered By: Miguel Astorga on 04-19-2022 Neutrophils/100 WBC (Bld) 62.6 % [facility] No Panel InformationOrdered By: Miguel Astorga on 04-19-2022 Estimated GFR () > 60 mL/Min [facility] Comment on above: GFR estimated refere nce range: According to KDOQI guidelines, <60 ml/min/1.73m2 is sufficient to diagnose a patient with chronic kidney disease. Pharmacy Creatinine Clearance (Chem N/A [facility] Platelet mean volume Auto (B ld) [Entitic vol]Ordered By: Miguel Astorga on 04-19-2022 Platelet mean volume (Bld) [Entitic vol] 8.9 fL 6.6-10.1 [facility] Platelets Auto (Bld) [#/Vol] Ordered By: Miguel Astorga on 04-19-2022 Platelets (Bld) [#/Vol] 260 10*3/uL 150-450 [facility] RBC Auto (Bld) [#/Vol]Ordere d By: Miguel Astorga on 04-19-2022 RBC (Bld) [#/Vol] 4.79 10*6/uL 3.90-5.60 [facility] Serum or plasma calcium dieter urement (mass/volume)Ordered By: Miguel Astorga on 04-19-2022 Calcium [Mass/Vol] 9.1 mg/dL 8.2-10.[address] [facility] Serum or plasma chloride shashank surement (moles/volume)Ordered By: Miguel Astorga on 04-19-2022 Chloride [Moles/Vol] 103 mmol/L 95-114 [facility] Serum or plasma glucose dieter urement (mass/volume)Ordered By: Miguel Astorga on 04-19-2022 Glucose [Mass/Vol] 102 mg/dL 70-[address] [facility] Comment on above: ADA recommended refe rence range Random Glucose Reference Range is dependent on time and content of last meal. Glucose of more than 200 mg/dL in a nonstressed, ambulatory subject supports the diagnosis of Diabetes Mellitus. Serum or plasma potassium me asurement (moles/volume)Ordered By: Miguel Astorga on 04-19-2022 Potassium [Moles/Vol] 4.2 mmol/L 3.5-5.1 [facility] Serum or plasma sodium measu rement (moles/volume)Ordered By: Miguel Astorga on 04-19-2022 Sodium [Moles/Vol] 137 mmol/L 136-[address] [facility] Serum or plasma total carbon dioxide measurement (moles/volume)Ordered By: Miguel Astorga on 04-19-2022 CO2 [Moles/Vol] 25.0 mmol/L 22.0-30.0 [facility] Serum or plasma urea nitroge n measurement (mass/volume)Ordered By: Miguel Astorga on 04-19-2022 Urea nitrogen [Mass/Vol] 18 mg/dL 9- [facility] Vital Signs Date Time Vital Sign Value Performing Clinician Christopher salamanca 06-24-2023 15:47-0400 Blood Pressure Location Natali SOLARES [facility] 06-24-2023 15:47-0400 Diastolic blood pressure 80 mm[Hg] Natali SOLARES [facility] 06-24-2023 15:47-0400 Heart rate 68 /min Natali SOLARES [facility] 06-24-2023 15:47-0400 Respiratory rate 16 /min Natali SOLARES [facility] 06-24-2023 15:47-0400 Systolic blood pressure 130 mm[Hg] Natali SOLARES [facility] 05-07-2022 14:57-0400 Blood Pressure Location Natali SOLARES [facility] 05-07-2022 14:57-0400 Diastolic blood pressure 81 mm[Hg] Natali SOLARES [facility] 05-07-2022 14:57-0400 Heart rate 72 /min [facility] 05-07-2022 14:57-0400 Respiratory rate 16 /min [facility] 05-07-2022 14:57-0400 Systolic blood pressure 149 mm[Hg] Natali SOLARES [facility] 04-20-2022 15:00-0400 Diastolic blood pressure 58 mm[Hg] DO Miguel Murcek Work Phone: [facility] 04-20-2022 15:00-0400 Heart rate 72 /min DO Miguel Murcek Work Phone: [facility] 04-20-2022 15:00-0400 Respiratory rate 16 /min DO Miguel Murcek Work Phone: [facility] 04-20-2022 15:00-0400 SaO2% (BldA) [Mass fraction] 95 % DO Miguel Murcek Work Phone: [facility] 04-20-2022 15:00-0400 Systolic blood pressure 118 mm[Hg] DO Miguel Murcek Work Phone: [facility] 04-20-2022 13:09-0400 Body temperature 97.5 [degF] DO Miguel Murcek Work Phone: [facility] 04-20-2022 13:09-0400 Inhaled oxygen flow rate 6 L/min DO Miguel Murcek Work Phone: [facility] 04-20-2022 12:40-0400 Body height 187.96 cm DO Miguel Astorga Work Phone: [facility] 04-20-2022 12:40-0400 Body mass index (BMI) [Ratio] 30.9 kg/m2 DO Miguel Astorga Work Phone: [facility] 04-20-2022 12:40-0400 Body weight 109.4 kg DO Miguel Astorga Work Phone: [facility] Encounters Encounter Date Encounter Type Care Provider Facility Start: 06-29-2024 ambulatory Natali Hernandezi ty:[facility] Start: 12-03-2023 End: 12-03-2023 ambulatory [facility] Start: 07-30-2023 End: 07-30-2023 ambulatory ANUPAM [facility] Start: 06-24-2023 End: 06-25-2023 ambulatory Natali SOLARES Facility:[facility] Start: 06-24-2023 End: 06-24-2023 Patient encounter procedure Natali SOLARES [facility] Start: 04-09-2023 End: 04-09-2023 ambulatory MATTHIAS SAHA . Facility:[facility] Start: 03-18-2023 End: 03-18-2023 ambulatory Miriam Carpenter Facility:[facility] Start: 03-18-2023 End: 03-18-2023 ambulatory MD Miriam Carpenter Work Phone: [facility] Work Phone: Start: 03-18-2023 End: 03-18-2023 Departed Referred MD Miriam Carpenter Work Phone: [facility] [place] Work Phone: Start: 03-12-2023 End: 03-13-[address] NORTH CHAPIN Facility:[facility] Start: 03-08-2023 ambulatory [facility] Start: 03-06-2023 End: 03-07-[address] NORTH CHAPIN Facility:[facility] Start: 02-01-2023 End: 02-01-2023 ambulatory ANUPAM COOK [facility] Start: 01-24-2023 End: 01-24-2023 ambulatory TIAGO WILBURN [facility] Start: 12-20-2022 End: 12-21-[address] RAZ MATOS Facility:[facility] Start: 12-18-2022 End: 12-19-2022 ambulatory MODESTO ROCHE Facility:[facility] Start: 12-06-2022 End: 12-06-[address] NOTRH CHAPIN Facility:[facility] Start: 11-06-2022 End: 11-07-2022 ambulatory MODESTO ROCHE Facility:[facility] Start: 10-16-2022 End: 10-17-2022 ambulatory MODESTO ROCHE Facility:[facility] Start: 09-27-2022 End: 09-27-2022 ambulatory BARBIE CANSECO Facility:[facility] Start: 09-26-2022 Encounter for preprocedural cardiovascular examination [facility] Start: 09-26-2022 Encounter for preprocedural laboratory examination [facility] Start: 09-24-2022 ambulatory BARBIE CANSECO Faci [...] encounter procedure Natali SOLARES [facility] Start: 04-27-2022 End: 04-28-[address] NATALI SOLARES . Facility: Start: 04-20-2022 End: 04-20-2022 ambulatory Miguel Astorga Facility:[facility] Start: 04-20-2022 End: 04-20-2022 Admission to same day surgery center DO Miguel Astorga Work Phone: [facility] [place] Start: 04-19-2022 End: 04-19-2022 ambulatory [place] Facility:[facility] Start: 04-19-2022 End: 04-19-2022 Patient encounter procedure DO Miguel Malusophiashelby Work Phone: [facility] Procedures Date Procedure Procedure Detail Performing Clinician Start: 04-27-2022 PSA screening MODESTO ROCHE Comment on above: Performed By: #### P SAD ####[facility] [address] [place] [id number]. Sanjuana Kasper Start: 04-20-2022 OR Cheek Lesion Exc W/Flap Recon (Not Applicable) DO Miguel [place] Work Phone: Colonoscopy Natali SOLARES ft (qualifier value) Natali SOLARES Prosthetic arthropla sty of the hip Natali SOLARES Removal of Basal Agustina l on Nose Natali SOLARES Repair of inguinal hernia Pa cielo SOLARES Titanium Plate Left Arm Cleor ugo SOLARES Tonsillectomy and adenoidectomy Natali SOLARES Plan of Treatment Date Care Activity Detail Author Start: 03-18-2023 Superficial Wound Culture Superficial Wound Culture [facility] SARS-CoV-2 (COVID-19 ) N gene [Presence] in Respiratory specimen by DAISY with probe detection [facility] Work Phone: Immunizations Immunization Date Immunization Notes Care Provider Amanda griffin 09-02-2022 influenza virus vacc ine, unspecified formulation Natali SOLARES [facility] 10-05-2021 SARS-CoV-2 (COVID-19 ) mRNA BNT-162b2 vax Natali SOLARES [facility] 08-14-2021 influenza virus vacc ine, unspecified formulation Natali SOLARES [facility] 08-14-2021 pneumococcal polysaccharide vaccine, 23 valent Natali SOLARES [facility] 03-22-2021 SARS-CoV-2 (COVID-19 ) mRNA BNT-162b2 vax Natali SOLARES [facility] Comment on above: Result Comment: erro r 03-22-2021 SARS-CoV-2 (COVID-19 ) mRNA-1273 vaccine Natali SOLARES [facility] 03-01-2021 SARS-CoV-2 (COVID-19 ) mRNA BNT-162b2 vax Natali SOLARES [facility] 02-23-2021 SARS-CoV-2 (COVID-19 ) mRNA BNT-162b2 vax Natali SOLARES [facility] Comment on above: Result Comment: erro r 08-05-2020 influenza virus vacc ine, unspecified formulation Natali SOLARES [facility] 08-05-2020 pneumococcal conjuga te vaccine, 13 valent Natali SOLARES [facility] 08-31-2019 influenza virus vacc ine, unspecified formulation [employer] [facility] 07-08-2018 influenza virus vacc ine, unspecified formulation [employer] [facility] 07-08-2018 zoster vaccine recombinant [employer] [facility] 03-25-2018 zoster vaccine recombinant [employer] [facility] 08-08-2017 influenza virus vacc ine, unspecified formulation [employer] [facility] 07-26-2017 influenza virus vacc ine, unspecified formulation [employer] [facility] 07-19-2016 influenza virus vacc ine, unspecified formulation [employer] [facility] 09-03-2015 influenza virus vacc ine, unspecified formulation [employer] [facility] Payers Date Payer Category Payer Self-pay [id number] 1959 Private Health Insurance [facility] [id number] 1950 Unknown [id number] 2.16.840.1.651346.3.579.2.59 3 1950 Unknown [id number] 2.16.840.1.498537.3.579.2.59 3 1950 Unknown [id number] 2.16.840.1.482622.3.579.2.59 3 1952 Unknown [id number] 2.16.840.1.036478.3.579.2.59 3 1952 Unknown [id number] 2.16.840.1.713944.3.579.2.59 3 1952 Unknown [id number] 2.16.840.1.097362.3.579.2.59 3 1952 Unknown [id number] 2.16.840.1.784652.3.579.2.59 3 1952 Unknown [id number] 2.16.840.1.543146.3.579.2.59 3 1952 Unknown [id number] 2.16.840.1.806096.3.579.2.59 3 1952 Unknown [id number] 2.16.840.1.098840.3.579.2.59 3 1952 Unknown [id number] 2.16.840.1.623391.3.579.2.59 3 1952 Unknown [id number] 2.16.840.1.588961.3.579.2.59 3 1952 Unknown [id number] 2.16.840.1.931603.3.579.2.59 3 1952 Unknown [id number] 2.16.840.1.312705.3.579.2.59 3 1952 Unknown [id number] 2.16.840.1.720979.3.579.2.59 3 1950 Unknown [id number] 2.16.840.1.908517.3.579.2.72 7 1950 Unknown [id number] 2.16.840.1.777985.3.579.2.72 7 Private Health Insurance [employer] PFFS N on Pt [id number] Unknown [id number] Unknown [id number] 2.16.840.1.310162.3.579.2.53 1 Unknown [id number] 2.16.840.1.670825.3.579.2.53 1 Unknown [id number] 2.16.840.1.345187.3.579.2.53 1 Social History Date Type Detail Facility Start: 05-07-2022 End: 06-24-2023 Tobacco smoking status Never smoked tobacco (finding) [facility] Work Phone: Sex Assigned At Male [facility] Start: 1950 Sex Assigned At Male F [facility] Tobacco smoking status Never [facility] Goals Date Patient Goal Desired Activity /State Functional Status Date Assessment Result Facility 06-24-2023 Functional Status N/A [facility] 05-07-2022 Functional Status N/A [facility] Clinical Notes 05-07-2022 to 12-03-2023 Note Date & Type Note Facility 12-03-2023 Note Patient here for 4 m o follow up dizziness and PAF. Had labs last month. Says he recorded a few episodes of palpitations recently on his loop recorder. He denies chest pain, SOB, and lightheadedness/syncope. Had recent foot surgery so he's taking an extra aspirin daily for DVT prophylaxis per surgeon. Review of Systems Cardiovascular: Positive for palpitations. Musculoskeletal: Positive for arthritis and joint pain. All other systems reviewed and are negative. [facility] Consult Note Reason for visit: Dizziness/SVT 12/03/23 Loop data reviewed by me and shows episodes of tachycardia the last of which is noted on October 13, 2023. I also went over other events and specifically the 1 on August 16, 2023 he mentioned to me that he was markedly symptomatic. 07/30/23: Patient here for 6 month follow [...] years ago here he was admitted to [facility] with A. fib with rapid ventricular rate. [...] 48 hours from 12/24/2021 to 12/10/2021 at [facility] was reviewed by me and shows PVC burden of less than 1% and PVC count of 6%. Occasional nonsustained atrial tachycardia few beats seen but no atrial fibrillation noted. No ventricular tachycardia noted EKG 10/17/2021 shows sinus rhythm with normal intervals Echocardiogram done at [facility] on 09/06/2021 shows ejection fraction of 60% [...] Laterality Date HERNIA REPAIR 03/25/2019 PARTIAL HIP ART (more content not included)... [facility] 07-30-2023 Note Patient here for 6 m o follow up PAF and dizziness. He had labs, ECG, carotid US, and echo in February 2023. Says dizziness has subsided. He denies chest pain, SOB, and palpitations. Doing very well from cardiac standpoint. Review of Systems Cardiovascular: Positive for leg swelling. Musculoskeletal: Positive for arthritis. All other systems reviewed and are negative. [facility] 07-30-2023 Note [facility] Consult Note Reason for visit: Dizziness [...] evidence of A. Fib. Prior HPI: Oscar aMnuel is a 73 y.o. year old with past medical history of atrial fibrillation that was diagnosed few years ago here he was admitted to [facility] with A. fib with rapid ventricular rate. [...] 48 hours from 12/24/2021 to 12/10/2021 at [facility] was reviewed by me and shows PVC burden of less than 1% and PVC count of 6%. Occasional nonsustained atrial tachycardia few beats seen but no atrial fibrillation noted. No ventricular tachycardia noted EKG 10/17/2021 shows sinus rhythm with normal intervals Echocardiogram done at [facility] on 09/06/2021 shows ejection fraction of 60% [...] kg (246 l (more content not included)... [facility] 06-24-2023 Hospital Discharge instructions Patient Education 06/24/2023 16:36:03 [...] urethra. Follow these instructions at home: Take ypye-vxi-bvyfrmb and prescription medicines only as told by [...] provider. Document Revised: 05/30/2022 Document Reviewed: 05/30/2022 [employer] Patient Education 2022 [employer]. Follow Up Care 05/07/2022 15:53:47 With:ESEQUIEL RUSSELL, Natali Gonzalez, URL Address: [facility] [address] , [place] [address] [phone] When: Unknown Comments:1 yr w/ [facility] Note Date of Telehealth V isit: 03/08/2023 The patient was notified that using 3rd constitution party telecommunication application (e.g., [employer]) is not HIPPA compliant and may carry some privacy risks. Yes The visit was conducted [id number] with the use of audio and video [...] documentation in this note for specific details. [facility] Consult Note Reason for visit: Dizziness [...] years ago here he was admitted to [facility] with A. fib with rapid ventricular rate. [...] 48 hours from 12/24/2021 to 12/10/2021 at [facility] was reviewed by me and shows PVC burden of less than 1% and PVC count of 6%. Occasional nonsustained atrial tachycardia few beats seen but no atrial fibrillation noted. No ventricular tachycardia noted EKG 10/17/2021 shows sinus rhythm with normal intervals Echocardiogram done at [facility] on 09/06/2021 shows ejection fraction of 60% [...] Surgical History: Procedure Laterality Date HERNIA REPAIR 05 (more content not included)... [facility] 02-01-2023 Note Here for wound check [...] has symptoms of aches, chills, fever, palpitations. [facility] 02-01-2023 Note Patient here for wou nd check s/p loop recorder insertion with Dr. Wilburn on 01/24/2023. [facility] 01-24-2023 Note LOOP IMPLANT PROCEDU RE NOTE DATE OF PROCEDURE: 01/24/2023 PERFORMING PHYSICIAN: Dr. Tiago Wilburn STAFF THERAPIST: JOVITA INDICATIONS FOR PROCEDURE: 1. SVT/AF surveillance [...] the sternum on the left using the [employer] tool. The loop recorder was then injected [...] the incision. Tiago Wilburn MD Cardiac Electrophysiology. [facility] 12-18-2022 Note PROCEDURE: XR FOOT L [...] authenticated by: MARÍA BRYSON Date: 2022-12-18 09:32 [facility] 11-06-2022 Note PROCEDURE: XR FOOT L [...] authenticated by: RAZ MATOS Date: 2022-11-06 15:27 [facility] 10-17-2022 Note PROCEDURE: XR FOOT L [...] authenticated by: RAZ MATOS Date: 2022-10-17 10:46 [facility] 09-27-2022 Note PROCEDURE: XR FOOT L [...] authenticated by: MARÍA BRYSON Date: 2022-09-27 18:29 [facility] 05-15-2022 Note PROCEDURE: XR FOOT R [...] authenticated by: MARÍA BRYSON Date: 2022-05-15 21:39 [facility] 05-07-2022 Hospital Discharge instructions Patient Education [...] 11/11/2006 Document Revised: 07/31/2019 Document Reviewed: 10/11/2017 [employer] Patient Education 2020 [employer]. 05/07/2022 15:46:01 Benign Prostatic Hyperplasia Benign Prostatic [...] urethra. Follow these instructions at home: Take fmbt-jfe-aqzwbje and prescription medicines only as told by [...] 11/11/2006 Document Revised: 10/06/2019 Document Reviewed: 12/16/2017 [employer] Patient Education 2020 [employer]. Follow Up Care 09/04/2021 16:41:31 With:Natali SOLARES MD, URL Address: [facility] [address], [place] [address]- [phone] When:Within 1 Year(s) Comments:f/u in 1 year with PSA and NAIMA [facility] Evaluation + Plan note Future Appointments Appointment Date:05/13/2023 03:00:00 PM Scheduled Provider:Natali SOLARES MD Location:[facility] Appointment Type:URO Office Visit Diagnostic Tests PendingPSA Total 05/07/22 [facility] Evaluation + Plan note Future Appointments Appointment Date:06/29/2024 03:00:00 PM Scheduled Provider:Natali SOLARES MD Location:[facility] Appointment Type:URO Office Visit Diagnostic Tests PendingPSA Total 06/24/23 [facility] Evaluation note No assessment inform ation available [facility] Work Phone: Hospital course Narrative No data available for this section [facility] Progress note No data available for this section [facility] Chief Complaint and Reason for Visit [...] section and content) DATE CREATED AUTHOR 03/24/2023 [facility] DATE CREATED AUTHOR AUTHOR'S ORGANIZ ATION 04/10/2023 [facility] DATE CREATED AUTHOR AUTHOR'S ORGANIZ ATION 06/26/2023 [facility] DATE CREATED AUTHOR AUTHOR'S ORGANIZ ATION 12/21/2023 [facility] FOR RECORDS PERTAINING TO PATIENTS WHO [...] BE BASED ON THE PRIMARY CLINICAL RECORDS. [employer] provides no warranty or guarantee of the accuracy or completeness of information in this document.
== END 2023-12-24 09:18 | disposition home or self-care (01) ==
LOC: RAD 09:17
PROVIDERS: PCP Family Medicine; Visit Provider Podiatrist Foot & Ankle Surgery
DX: M79.672 Pain in left foot (principal)
CPT/HCPCS: 73630

== ENCOUNTER 2024-02-06 09:48 | Outpatient (OUT) | payer MEDICARE, SELFPAY ==
--- NOTE | 2024-02-06 | XR_ITS ---
The [address] [address] Patient Name: KAVITA AUSTIN MRN: [id number] date: 1950 Sex: M Assigned Patient Location: Current Patient Location: LAB Accession/Order Number: [id number] Exam Date: 02/06/2024 09:55 Report Date: 02/08/2024 08:46 At the request of: MODESTO ROCHE Procedure: XR foot LT min 3V PROCEDURE: XR foot LT min 3V HISTORY: LEFT FOOT PAIN COMPARISON: XR foot left 12/24/2023 FINDINGS: BONES:Mechanical fusion of the first metatarsophalangeal joint via dorsal plate and screws. Osteotomy and repair of second metatarsal head. Resection of head of second digit proximal phalanx. SOFT TISSUES:No visible soft tissue swelling. EFFUSION:None visible. OTHER: Negative. XR/XR foot LT min 3V IMPRESSION: 1. Stable surgical changes without evidence of hardware failure or change in alignment. 2. No acute bone abnormality. Electronically authenticated by: RAZ MATOS Date: 02/08/2024 08:46
== END 2024-02-06 09:49 | disposition home or self-care (01) ==
LOC: EC 09:48
PROVIDERS: PCP Family Medicine; Visit Provider Physician Assistant
DX: M20.21 Hallux rigidus, right foot (principal)
CPT/HCPCS: 73630

== ENCOUNTER 2024-02-06 10:24 | Outpatient (OUT) | payer MEDICARE, SELFPAY ==
--- OUTSIDE RECORDS SUMMARY | 2024-02-06 10:39 | XMS_ITS | CCD ---
Author Name Unknown Address [address] [place] [address] Organization [facility] Care Team Providers Care Grape Crusher Name Role Phone NORTH CHAPIN Primary Care Physician [phone] DO Miguel Astorga Attending Provider MD [place] Primary Care Provider [phone] Miguel Astorga Admitting Unavailable [place] Primary [...] HIGHLANDER, BARBIE Chávez Consulting Unavailable BLAKE ., LWA FAIR Consulting Unavailable MORMICHEL, LOUANN Consulting Unavailable [...] Unavailable ESEQUIEL, Natali Gonzalez Attending Unavailable BRENNAN, ROXANNE Attending Unavailable BRENNAN, ROXANNE Attending Unavailable WOODYAZElda, ANUPAM Attending Unavailable NADERER, NORTH Attending Unavailable Allergies Allergy Classification Reported Allergen(s) Allergy Type Date of Onset Reaction(s) Facility (1 source) No Known Medication Allergies; Translations: [No Known Medication Allergies] Propensity to adverse reactions (disorder) [facility] Repository Medications Current Medications Medication Drug [...] Start: 04-19-2022 take 1 capsule by mo ut once daily [facility] Active 1 CAP [...] tab(s), Refills(s) 2, [facility]: [facility], 189, cm, 05/07/22 14:58:00 EDT, Height/Length Dosing, 129, kg, 05/07/22 14:58:00 EDT, Weight Dosing Start Date: 05/07/22 Status: Ordered tadalafil 20 mg oral tablet (1 source) Phosphodiesterase 5 Inhibitor Start: 06-24-2023 take 1 tablet by mouth once daily Cialis 20 mg Tab 20 mg = 1 tab(s), Oral, Daily, # 39 tab(s), Refills(s) 2, [facility]: [id number], 189, cm, 05/07/22 14:58:00 EDT, Height/Length Dosing, 107, kg, 06/24/23 15:49:00 EDT, Weight Dosing Start Date: 06/24/23 Status: Ordered tamsulosin hydrochloride 0.4 mg oral capsule (5 sources) alpha-Adrenergic Neeta Start: 04-02-2023 take 1 capsule by mouth once daily Flomax 0.4 mg Cap 0.4 mg = 1 cap(s), Oral, Daily, # 90 cap(s), Refills(s) 3, [facility]acy: [facility], 189, cm, 05/07/22 14:58:00 EDT, [...] left foot] Onset: 10-08-2022 Chronic Cardiac dysrhythmias (4 sources) Atrial fibrillation; Translations: [Paroxysmal atrial fibrillation] [...] 12-10-2022 Chronic Other aftercare (1 source) Other prison (current) drug therapy; Translations: [OTH ASSISTED CURRENT DRUG THERAPY] Onset: 03-11-2023 Episodic Other connective tissue disease (1 source) Presence of right artificial hip joint; Translations: [PRESENCE RIGHT ARTIFICIAL HIP JOINT] Onset: 01-16-2023 Chronic Other diseases of kidney and ureters [...] [CONTACT W/AND (SUSP) EXPOS COVID-19] Onset: 06-06-2022 Past or Other Problems Problem Classification Problem [...] Onset: 12-06-2022 Episodic Other aftercare (1 source) shelter (current) use of aspirin; Translations: [ASSISTED CURRENT USE OF ASPIRIN] Onset: 12-10-2022 Episodic [...] Test Name Value Interpretation Reference Range Facility Orders Onlyon 02-04-2024 Orders Only [id number] Oscar Manuel 1950 M Date Provider Department Center 02/04/2024 Waldo-FADIA GILL [facility] Family History Problem Relation Age of Onset Other Mother Coronary artery disease Mother Other Father Family Status - Relation Status Age at Mother Father Normal [facility] Office Visiton 12-03-2023 Follow-up visit [id number] Oscar Manuel 1950 M Date Provider Department Center 12/03/2023 241-ROXANNE AMIN CARD [facility] Family History Problem Relation Age of Onset Other Mother Coronary artery disease Mother Other Father Family Status - Relation Status Age at Mother Father Level of Service:22120 ME OFFICE/OUTPATIENT NEW HIGH MDM 60 MINUTES Normal [facility] Orders Onlyon 12-03-2023 Orders Only [id number] Oscar Manuel 1950 Date Provider Department Center 12/03/2023 895-TRINITY DE [facility]E KATH[facility] [place] [facility] Family History Problem Relation Age of Onset Other Mother Coronary artery disease Mother Other Father Family Status - Relation Status Age at Mother Father Normal [facility] Office Visiton 07-30-2023 Follow-up visit [id number] Oscar Manuel 1950 Date Provider Department Center 07/30/2023 1596-ANUPAM COOK KATHARINA [place] [facility] Family History Problem Relation Age of Onset Other Mother Coronary artery disease Mother Other Father Family Status - Relation Status Age at Mother Father Level of Service:28331 ME OFFICE/OUTPATIENT ESTABLISHED LOW MDM 20-29 MIN Normal [facility] Lab Reportson 06-25-2023 Lab Reports [id number] 0CD:[id number] Normal [facility] Ambulatory Visit Summaryon 0 06-24-2023 Ambulatory Visit Summary OSCAR MNAUEL :1950 Visit Date:06/24/2023 Ambulatory Visit Instructions Your Diagnosis 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 Take ejki-rei-tkqrrxe and prescription medicines only as told by [...] the medicine (more content not included)... Normal [facility] Reminderson 06-24-2023 Reminders - From: Katheryn Fernandez To: ALEXANDRA Solares; Sent: 06/24/2023 16:41:34 EDT Show up: 05/24/2024 16:41:00 EDT Subject: PSA Reminder Message Please Remember to:_have pt get PSA (done at [facility]) prior to appt. Normal [facility] Urology Office/Clinic Noteon 06-24-2023 Urology Office/Clinic [...] URL [facility] [address], [place] [address] [phone] Additional Instructions: 1 yr w/ PSA Patient [...] Family history of kidney cancer Hx of prison use of blood thinners Impotence Organic impotence [...] mRNA BNT-16 (more content not included)... Normal [facility] Comment on above: Result Comment: Elec [...] RESISTANT TO ALL B-LACTAM DRUGS. PERFORMED BY: [place] [address] PATHOLOGIST SCREEN MAKER ISABELLA MCKEON M.D. [facility] Comment on above: Performed By: #### C USUP #### [address] ECHOCARDIO M/2D COMPLETEon 0 4-18-2023 ECHOCARDIO M/2D COMPLETE Patient: OSCAR MANUEL Exam Date: 03/12/2023 : 1950 Gender:M Ordering : DR NORTH CHAPIN . Admission #: [id number] Family : ROXANNE AMIN MD Order #: [id number] CLICK HERE TO VIEW EXAM ECHOCARDIOGRAM REPORT [...] Solorio M.D. on 03/12/2023 at 18:41 Normal [facility] US CAROTID ART BILon 18-2 023 US CAROTID ART MOISES EXAMINATION: US [...] by: MARÍA BRYSON Date: 2023-03-12 15:01 Normal [facility] Telemedicineon 03-08-2023 Telemedicine [id number] Oscar Manuel 1950 [place] Provider Department Center 03/08/2023 ROXANNE MARTINEZ [facility] Family History Problem Relation Age of Onset Other Mother Coronary artery disease Mother Other Father Family Status - Relation Status Age at Mother Father Level of Service:58607 ME PHYS/QHP TELEPHONE EVALUATION 21-30 MIN Normal [facility] CBC AUTO DIFFon 03-06-2023 BASO # 0.1 103/ul Normal 0.0-0.1 [facility] Comment on above: Performed By: #### C BC #### [facility] [address] [place] [address] Dr. Sanjuana Kasper Basophils/100 WBC (Bld) 0.9 % Normal 0.2-2.0 [facility] Comment on above: Performed By: #### C BC #### [facility] [address] [place] [address] Dr. Sanjuana Kasper EO # 0.3 103/ul Normal 0.0-0.7 [facility] Comment on above: Performed By: #### C BC #### [facility] [address] [place] [address] Dr. Sanjuana Kasper Eosinophils/100 WBC (Bld) 5.0 % Normal 0.9-7.0 [facility] Comment on above: Performed By: #### C BC #### [facility] [address] [place] [address] Dr. Sanjuana Kasper Erythrocyte distribution width (RBC) [Ratio] 13.5 % Normal 11.0-15.0 [facility] Comment on above: Performed By: #### C BC #### [facility] [address] [place] [address] Dr. Sanjuana Kasper Hematocrit (Bld) [Volume fraction] 41.9 % Critically low 42.0-54.0 [facility] Comment on above: Performed By: #### C BC #### [facility] [address] [place] [address] Dr. Sanjuana Kapser Hemoglobin (Bld) [Mass/Vol] 13.9 g/dL Critically low 14.0-18.0 [facility] Comment on above: Performed By: #### C BC #### [facility] [address] [place] [address] Dr. Sanjuana Kasper IG # 0.02 10e3/ul Normal 0.00-0.03 [facility] Comment on above: Performed By: #### C BC #### [facility] [address] [place] [address] Dr. Sanjuana Kasper IG % 0.3 % Normal 0.0-0.5 [facility] Comment on above: Performed By: #### C BC #### [facility] [address] [place] [address] Dr. Sanjuana Kasper LYMPH # 1.4 103/ul Normal 1.2-3.8 [facility] Comment on above: Performed By: #### C BC #### [facility] [address] [place] [address] Dr. Sanjuana Kasper Lymphocytes/100 WBC (Bld) 23.8 % Normal 20.5-60.0 [facility] Comment on above: Performed By: #### C BC #### [facility] [address] [place] [address] Dr. Sanjuana Kasper MANUAL DIFF REQ NO Normal [facility] Comment on above: Performed By: #### C BC #### [facility] [address] [place] [address] Dr. Sanjuana Kasper MCH (RBC) [Entitic mass] 29.5 pg Normal 25.9-34.0 [facility] Comment on above: Performed By: #### C BC #### [facility] [address] [address] [address] Sanjuana Kasper MCHC (RBC) [Mass/Vol] 33.2 g/dL Normal 29.9-35.2 [facility] Comment on above: Performed By: #### C BC #### [facility] [address] [address] [address] Sanjuana Kasper MCV (RBC) [Entitic vol] 89.0 fL Normal 80.0-94.0 [facility] Comment on above: Performed By: #### C BC #### [facility] [address] [place] [address] Dr. Sanjuana Kasper MONO # 0.4 103/ul Normal 0.3-0.8 [facility] Comment on above: Performed By: #### C BC #### [facility] [address] [place] [address] Dr. Sanjuana Kasper Monocytes/100 WBC (Bld) 7.1 % Normal 1.7-12.0 [facility] Comment on above: Performed By: #### C BC #### [facility] [address] [place] [address] Dr. Sanjuana Kasper NEUT # 3.7 103/ul Normal 1.4-6.5 [facility] Comment on above: Performed By: #### C BC #### [facility] [address] [place] [address] Dr. Sanjuana Kasper Neutrophils/100 WBC (Bld) 62.9 % Normal 43.0-75.0 [facility] Comment on above: Performed By: #### C BC #### [facility] [address] [address] [address] Sanjuana Kasper Platelet mean volume (Bld) [Entitic vol] 10.6 fL Normal 9.5-13.5 [facility] Comment on above: Performed By: #### C BC #### [facility] [address] [address] [address] Sanjuana Kasper PLT 259 103/ul Normal 150-450 [facility] Comment on above: Performed By: #### C BC #### [facility] [address] [place] [address] Dr. Sanjuana Kasper RBC 4.71 106/ul Normal 4.70-6.10 [facility] Comment on above: Performed By: #### C BC #### [facility] [address] [place] [address] Dr. Sanjuana Kasper WBC 5.8 103/ul Normal 4.0-11.0 [facility] Comment on above: Performed By: #### C BC #### [facility] [address] [place] [address] Dr. Sanjuana Kasper GLYCOHEMOGLOBIN A1Con 2022 ADA RECOMMENDATION SEE BELOW Normal [facility] Comment on above: Result Comment: ADA RECOMMENDED LIMIT 4.0 - 6.0 ADA THERAPEUTIC TARGET < 7.0 ACTION SUGGESTED > 7.0 Performed By: #### A 1C #### [facility] [address] [place] [address] Dr. Sanjuana Kasper Glucose [Mass/Vol] 108 mg/dL Normal [facility] Comment on above: Performed By: #### A 1C #### [facility] [address] [place] [address] Dr. Sanjuana Kasper HbA1c (Bld) [Mass fraction] 5.4 % Normal 4.5-6.2 [facility] Comment on above: Performed By: #### A 1C #### [facility] [address] [place] [address] Dr. Sanjuana Kasper LIPID PROFILEon 03-06-2023 CHOL-HDL RATIO NORM SEE BELOW Normal [facility] Comment on above: Result Comment: 3.3 - 4.4 LOW RISK 4.4 - 7.1 AVERAGE RISK 7.1 - 11.0 MODERATE RISK >11.0 HIGH RISK Performed By: #### T SH, LIPID, BMP, LIVER #### [facility] [address] [place] [address] Dr. Sanjuana Kasper Cholesterol [Mass/Vol] 192 mg/dL Normal <=200 [facility] Comment on above: Performed By: #### T SH, LIPID, BMP, LIVER #### [facility] [address] [address] [address] Sanjuana Kasper Cholesterol in HDL [Mass/Vol] 61 mg/dL Critically high 40-60 [facility] Comment on above: Performed By: #### T SH, LIPID, BMP, LIVER #### [facility] [address] [address] [address] Sanjuana Kasper Cholesterol in LDL [Mass/Vol] 122.2 mg/dL Normal [facility] Comment on above: Performed By: #### T SH, LIPID, BMP, LIVER #### [facility] [address] [address] [address] Sanjuana Kasper Cholesterol.total/Chol esterol in HDL [Mass ratio] 3.1 {ratio} Normal [facility] Comment on above: Performed By: #### T SH, LIPID, BMP, LIVER #### [facility] [address] [address] [address] Sanjuana Kasper HDL NORMAL > or = 60 mg/dl - LO W CARDIOVASCULAR RISK <40 mg/dl - HIGH CARDIOVASCULAR RISK Normal [facility] Comment on above: Performed By: #### T SH, LIPID, BMP, LIVER #### [facility] [address] [address] [address] Sanjuana Kasper LDL CALC NORMAL SEE BELOW Normal [facility] Comment on above: Result Comment: <100 mg/dl OPTIMAL 100 - 129 mg/dl NEAR OR ABOVE OPTIMAL 130 - 159 mg/dl BORDERLINE HIGH 160 - 189 mg/dl HIGH >190 mg/dl VERY HIGH Performed By: #### T SH, LIPID, BMP, LIVER #### [facility] [address] [place] [address] Dr. Sanjuana Kasper Triglyceride [Mass/Vol] 44 mg/dL Normal <=150 [facility] Comment on above: Performed By: #### T SH, LIPID, BMP, LIVER #### [facility] [address] [place] [address] Dr. Sanjuana Kasper VLDL CALC 8.8 mg/dL Normal [facility] Comment on above: Performed By: #### T SH, LIPID, BMP, LIVER #### [facility] [address] [place], [place] [address] Dr. Sanjuana Kasper LIVER PROFILEon 03-06-2023 Albumin [Mass/Vol] 3.6 g/dL Normal 3.4-5.[address] [facility] Comment on above: Performed By: #### T SH, LIPID, BMP, LIVER ####[facility] [address] [id number]. Sanjuana Kasper Albumin/Globulin [Mass ratio] 1.0 {ratio} Normal [facility] Comment on above: Performed By: #### T SH, LIPID, BMP, LIVER ####[facility] [address] [address]Dr. Sanjuana Kasper ALP [Catalytic activity/Vol] 91 U/L Normal 46-116 [facility] Comment on above: Performed By: #### T SH, LIPID, BMP, LIVER ####[facility] [address] [address]Dr. Sanjuana Kasper ALT [Catalytic activity/Vol] 28 U/L Normal 16-63 [facility] Comment on above: Performed By: #### T SH, LIPID, BMP, LIVER ####[facility] [address] [address]Dr. Sanjuana Kasper AST [Catalytic activity/Vol] 16 U/L Normal 15-37 [facility] Comment on above: Performed By: #### T SH, LIPID, BMP, LIVER ####[facility] [address] [id number]. Sanjuana Kasper BILI, CONJUGATED 0.1 mg/dL Normal 0.0-0.2 [facility] Comment on above: Performed By: #### T SH, LIPID, BMP, LIVER ####[facility] [address] [id number]. Sanjuana Kasper Bilirubin [Mass/Vol] 0.4 mg/dL Normal 0.2-1.0 [facility] Comment on above: Performed By: #### T SH, LIPID, BMP, LIVER ####[facility] [address] [address]Dr. Sanjuana Kasper Globulin (S) [Mass/Vol] 3.6 g/dL Normal [facility] Comment on above: Performed By: #### T SH, LIPID, BMP, LIVER ####[facility] [address] [address]Dr. Carlayazmin Kasper Protein [Mass/Vol] 7.2 g/dL Normal 6.4-8.[address] [facility] Comment on above: Performed By: #### T SH, LIPID, BMP, LIVER ####[facility] [address] [address]Dr. Carlayazmin Kasper PROF CHEM 8 (BAS METB)on Anion gap [Moles/Vol] 12.2 mmol/L Normal [facility] Comment on above: Performed By: #### T SH, LIPID, BMP, LIVER ####[facility] [address] [address]Dr. Carlayazmin Kasper Calcium [Mass/Vol] 9.1 mg/dL Normal 8.5-10.[address] [facility] Comment on above: Performed By: #### T SH, LIPID, BMP, LIVER ####[facility] [address] [address]Dr. Carlayazmin Kasper Chloride [Moles/Vol] 106 mmol/L Normal 98-107 [facility] Comment on above: Performed By: #### T SH, LIPID, BMP, LIVER ####[facility] [address] [address]Dr. Carlayazmin Kasper CO2 [Moles/Vol] 26.9 mmol/L Normal 21.0-32.0 [facility] Comment on above: Performed By: #### T SH, LIPID, BMP, LIVER ####[facility] [address] [address]Dr. Carlayazmin Kasper Creatinine [Mass/Vol] 0.98 mg/dL Normal 0.70-1.30 [facility] Comment on above: Performed By: #### T SH, LIPID, BMP, LIVER ####[facility] [address] [address]Dr. Sanjuana Kasper EGFR-AF RUSSIAN >60 Normal >=60 [facility] Comment on above: Performed By: #### T SH, LIPID, BMP, LIVER ####[facility] [address] [address]Dr. Sanjuana Kasper EGFR-NON AF RUSSIAN >60 Normal >=60 [facility] Comment on above: Performed By: #### T SH, LIPID, BMP, LIVER ####[facility] [address] [address]Dr. Sanjuana Kasper Glucose [Mass/Vol] 94 mg/dL Normal 74-[address] [facility] Comment on above: Performed By: #### T SH, LIPID, BMP, LIVER ####[facility] [address] [address]Dr. Sanjuana Kasper Potassium [Moles/Vol] 4.1 mmol/L Normal 3.5-5.1 [facility] Comment on above: Performed By: #### T SH, LIPID, BMP, LIVER ####[facility] [address] [address]Dr. Sanjuana Kasper Sodium [Moles/Vol] 141 mmol/L Normal 136-[address] [facility] Comment on above: Performed By: #### T SH, LIPID, BMP, LIVER ####[facility] [address] [address]Dr. Sanjuana Kasper Urea nitrogen [Mass/Vol] 17.0 mg/dL Normal 7.0-18.0 [facility] Comment on above: Performed By: #### T SH, LIPID, BMP, LIVER ####[facility] [address] [address]Dr. Sanjuana Kasper Urea nitrogen/Creatinine [Mass ratio] 17.3 mg/mg Normal [facility] Comment on above: Performed By: #### T SH, LIPID, BMP, LIVER ####[facility] [address] [address]Dr. Sanjuana Kasper TSHon 03-06-2023 TSH 1.951 uIU/mL Normal 0.358-3.740 [facility] Comment on above: Performed By: #### T SH, LIPID, BMP, LIVER #### [facility] [address] [place] [address] FOOT LT WO CONon 12-20-19 CT [...] by: RAZ MATOS Date: 2022-12-20 14:53 Normal [facility] POINT OF CARE GLUCOSEon 11-0 Glucose [Mass/Vol] 94 mg/dL Normal 74-[address] [facility] Comment on above: Performed By: #### P OCGLUC #### [facility] [address] [place] [address] Dr. Sanjuana Kasper XR FOOT LT 2Von [...] MARÍA BRYSON Date: 2022-09-27 18:28 Normal [facility] Cov[facility] PCR ([facility]on 08-26 SARS-CoV-2 (COVID-19) RNA DAISY+probe Ql (Unsp spec) Not detected Normal NOT DETECTED [facility] Comment on above: Result Comment: This test is not yet approved or cleared by the [place] FDA. When there are no FDA-approved or cleared tests available, and other criteria are met, FDA can make tests available under an emergency access mechanism called an Emergency Use Authorization (EUA). The EUA for this test is supported by the [place] of Health and Human Service's (HHS's) declaration [...] consistent with SARS-CoV-2. Performed By: #### C [facility] ####[facility] [address] [address]Dr. Sanjuana Kasper PROF CHEM 8 (BAS METB)on Anion gap [Moles/Vol] 11.6 mmol/L Normal [facility] Comment on above: Performed By: #### B MP ####[facility] [address] [place], [place] [address]Dr. Sanjuana Kasper Calcium [Mass/Vol] 8.6 mg/dL Normal 8.5-10.[address] [facility] Comment on above: Performed By: #### B MP ####[facility] [address] [place], [place] [address]Dr. Sanjuana Kasper Chloride [Moles/Vol] 107 mmol/L Normal 98-107 [facility] Comment on above: Performed By: #### B MP ####[facility] [address] [address]Dr. Sanjuana Kasper CO2 [Moles/Vol] 26.2 mmol/L Normal 21.0-32.0 [facility] Comment on above: Performed By: #### B MP ####[facility] [address] [place], [place] [address]Dr. Sanjuana Kasper Creatinine [Mass/Vol] 1.28 mg/dL Normal 0.70-1.30 [facility] Comment on above: Performed By: #### B MP ####[facility] [address] [address]Dr. Sanjuana Ranjith EGFR-AF RUSSIAN >60 Normal >=60 [facility] Comment on above: Performed By: #### B MP ####[facility] [address] [id number]. Carlayazmin Ranjith EGFR-NON AF RUSSIAN 56 mL/min/1.73m2 Critically low >=60 [facility] Comment on above: Performed By: #### B MP ####[facility] [address] [address]Dr. Sanjuana Kasper Glucose [Mass/Vol] 121 mg/dL Critically high 74-106 [facility] Comment on above: Performed By: #### B MP ####[facility] [address] [address]Dr. Sanjuana Kasper Potassium [Moles/Vol] 3.8 mmol/L Normal 3.5-5.1 [facility] Comment on above: Performed By: #### B MP ####[facility] [address] [place], [place] [address]Dr. Sanjuana Kasper Sodium [Moles/Vol] 141 mmol/L Normal 136-[address] [facility] Comment on above: Performed By: #### B MP ####[facility] [address] [address]Dr. Sanjuana Kasper Urea nitrogen [Mass/Vol] 24.0 mg/dL Critically high 7.0-18.0 [facility] Comment on above: Performed By: #### B MP ####[facility] [address] [address]Dr. Sanjuana Kasper Urea nitrogen/Creatinine [Mass ratio] 18.8 mg/mg Normal [facility] Comment on above: Performed By: #### B MP ####[facility] [address] [place], [place] [address]Dr. Sanjuana Kasper PROTIMEon 09-21-2022 INR Coag (PPP) [Relative time] 1.05 {INR} Normal [facility] Comment on above: Performed By: #### P TT, PT ####[facility] [address] [id number]. Sanjuana Kasper INR GUIDELINES SEE BELOW Normal [facility] Comment on above: Result Comment: VERONICA RED INR: 2.0 - 3.0 CONDITIONS NOT LISTED BELOW 2.5 - 3.5 FOR PROSTHETIC HEART VALVE REPLACEMENT 2.5 - 3.5 RECURRENT THROMBOSIS Performed By: #### P TT, PT ####[facility] [address] [address]Dr. Sanjuana Kasper PT Coag (PPP) [Time] 11.3 s Normal 9.0-11.6 [facility] Comment on above: Performed By: #### P TT, PT ####[facility] [id number] [address]Dr. Sanjuana Kasper PTTon 09-21-2022 aPTT Coag (Bld) [Time] 30.0 s Normal 22.3-36.2 [facility] Comment on above: Performed By: #### P TT, PT ####[facility] [id number] [address]Dr. Sanjuana Kasper XR FOOT MOISES MIN 3 [...] MARÍA BRYSON Date: 2022-08-01 17:51 Normal [facility] Covid-19 PCR (CVDTB)on 05-25 SARS-CoV-2 (COVID-19) RNA DAISY+probe Ql (Unsp spec) Not detected Normal NOT DETECTED [facility] Comment on above: Result Comment: This test is not yet approved or cleared by the [place] FDA. When there are no FDA-approved or cleared tests available, and other criteria are met, FDA can make tests available under an emergency access mechanism called an Emergency Use Authorization (EUA). The EUA for this test is supported by the [employer] of Health and Human Service's (HHS's) declaration [...] consistent with SARS-CoV-2. Performed By: #### C TB #### [facility] [address] [place] [address] Dr. Sanjuana Medina 04-20-2022 L -- ---- Specimen: [id number] Received: 04/20/22 Status: LENIN Jameson Num: [id number] Spec Type: Surgical Subm Dr: Miguel Astorga,DO Tissues: A Debridement-Skin/Other Than Skin (SCALP) Procedures: HE Stain, Gross/Micro L3 ---- Patient Age/Sex Location Account Attending Physician ---- TigistOscar A 72/M [place] [id number] Miguel Astorga,DO ---- SPEC NUM: [id number] RECD: 04/20/22 STATUS: LENIN JAMESON NUM: [id number] DEMARCUS: 04/20/22- SUBM DR: Miguel Astorga DO ENTERED: 04/20/22 [facility] DR: JUAN MANUEL TYPE: Surgical DEPT: S ORDERED: HE Stain, Gross/Micro L3 ORDERED: HE [...] thin rim of owusu unremarkable appearing skin. Oncology Consultant sections are submitted in one cassette labeled A1. Type of Fixative: 10% Neutral Buffered Formalin (NORM/ROHIT) Microscopic Description One glass slide with H E stained material has been examined. The microscopic findings support the above pathologic diagnosis. ---- Specimen: [id number] Received: 04/20/22 Status: LENIN Jameson Num: [id number] Spec Type: Surgical Subm Dr: Miguel Astorga DO Tissues: A Debridement-Skin/Other Than Skin (SCALP) Procedures: HE Stain, Gross/Micro L3 ---- Patient: Oscar Manuel [id number] (Continued) ---- Specimen: [id number] Received: 04/20/22 (Continued) Signed (signature on file) Favio Chong MD 04/24/222025 ---- Specimen: Received: 04/20/22 Status: LENIN Jameson Num: [id number] Spec Type: Surgical Subm Dr: Miguel Astorga DO Tissues: A Debridement-Skin/Other Than Skin (SCALP) Procedures: Cayetano Jean/Jeffery L3 ---- Patient: Oscar Manuel [id number] (Continued) ---- Specimen: [id number] Received: 04/20/22 (Continued) CPT Codes 28988 ---- ---- Specimen: [id number] Received: 04/20/22 Status: LENIN Jameson Num: [id number] Spec Type: Surgical Subm Dr: Miguel Astorga DO Tissues: A Debridement-Skin/Other Than Skin (SCALP) Procedures: Cayetano Jean/Micro L3 ---- Patient: Oscar Manuel Flora [id number] (Continued) ---- Signed (signature on file) Favio Chong MD 04/24/222025 Normal [facility] Basic Metabolic Panelon 05-2 Calcium [Mass/Vol] 9.1 mg/dL Normal 8.2-10.2 [facility] Comment on above: Result Comment: PERF ORMED BY: [place] [address] PATHOLOGIST SCREEN MAKER ISABELLA MCKEON M.D. Performed By: #### B MP, CBC #### [facility] [address] [place] [address] [place] Chloride [Moles/Vol] 103 mmol/L Normal 95-114 [facility] Comment on above: Performed By: #### B MP, CBC #### [facility] [address] [place] [address] [place] CO2 [Moles/Vol] 25.0 mmol/L Normal 22.0-30.[address] [facility] Comment on above: Performed By: #### B MP, CBC #### [facility] [address] [place] [address] [place] Creatinine [Mass/Vol] 1.13 mg/dL Normal 0.64-1.27 [facility] Comment on above: Performed By: #### B MP, CBC #### [place] [address] [place] Estimated GFR ( Ariane > 60 Normal [facility] Comment on above: Result Comment: GFR estimated reference range: According to KDOQI guidelines, <60 ml/min/1.73m2 is sufficient to diagnose a patient with chronic kidney disease. Performed By: #### B MP, CBC #### [place] [address] [place] Estimated GFR (Non- Am > 60 Normal [facility] Comment on above: Performed By: #### B MP, CBC #### [address] Glucose [Mass/Vol] 102 mg/dL High 70-100 [facility] Comment on above: Result Comment: [place] om Glucose Reference Range is dependent on time and content of last meal. Glucose of more than 200 mg/dL in a nonstressed, ambulatory subject supports the diagnosis of Diabetes Mellitus. ADA recommended reference range Performed By: #### B MP, CBC #### [address] Potassium [Moles/Vol] 4.2 mmol/L Normal 3.5-5.1 [facility] Comment on above: Performed By: #### B MP, CBC #### [place] [address] [place] Sodium [Moles/Vol] 137 mmol/L Normal 136-146 [facility] Comment on above: Performed By: #### B MP, CBC #### [address] Urea nitrogen [Mass/Vol] 18 mg/dL Normal 9-23 [facility] Comment on above: Performed By: #### B MP, CBC #### [place] [address] [place] Basophils Auto (Bld) [#/Vol] Ordered By: Miguel Astorga on 04-19-2022 Basophils (Bld) [#/Vol] 0.1 10*3/uL 0.0-0.2 [facility] Basophils/100 WBC Auto (Bld) Ordered By: Miguel Astorga on 04-19-2022 Basophils/100 WBC (Bld) 0.9 % [facility] Blood hemoglobin measurement (mass/volume)Ordered By: Miguel Astorga on 04-19-2022 Hemoglobin (Bld) [Mass/Vol] 14.3 g/dL 13.0-17.0 [facility] Blood leukocytes automated c ount (number/volume)Ordered By: Miguel Astorga on 04-19-2022 WBC (Bld) [#/Vol] 5.5 10*3/uL 4.5-11.0 [facility] SARS-CoV-2 (COVID-19) RNA DAISY+probe Ql (Unsp spec) Negative Normal Negative [facility] Comment on above: Order Comment: Comme nt For surgery tomorrow Healthcare Worker?: N Result Comment: Testing for SARS-CoV-2 by RT-PCR This test was developed and its performance characteristics determined by [employer]) and validated at the [facility]. This test has not been FDA cleared [...] is terminated or revoked sooner. PERFORMED BY: [address] [address] PATHOLOGIST SCREEN MAKER ISABELLA MCKEON M.D. Performed By: #### C OVID 19 [facility] #### [address] [place] [address] [place] COVID-19 Positive/NegativeOr dered By: Miguel Astorga on 04-19-2022 SARS-CoV-2 (COVID-19) N gene DAISY+probe Ql (Resp) Negative Negative [facility] Comment on above: Testing for SARS-CoV -2 by RT-PCR This test was developed and its performance characteristics determined by [employer] ([employer]) and validated at the [facility]. This test has not been FDA cleared [...] Basophils (Bld) [#/Vol] 0.1 10*3/uL Normal 0.0-0.2 [facility] Comment on above: Result Comment: PERF ORMED BY: [place] [address] PATHOLOGIST SCREEN MAKER ISABELLA MCKEON M.D. Performed By: #### B MP, CBC #### [facility] [address] [place] [address] Basophils/100 WBC (Bld) 0.9 % Normal . [facility] Comment on above: Performed By: #### B MP, CBC #### [facility] [address] [place] [address] Eosinophils (Bld) [#/Vol] 0.2 10*3/uL Normal 0.0-0.45 [facility] Comment on above: Performed By: #### B MP, CBC #### [facility] [address] Eosinophils/100 WBC (Bld) 3.9 % Normal . [facility] Comment on above: Performed By: #### B MP, CBC #### [facility] [address] Erythrocyte distribution width (RBC) [Ratio] 14.1 % Normal 12.0-14.8 [facility] Comment on above: Performed By: #### B MP, CBC #### [address] Hematocrit (Bld) [Volume fraction] 43.0 % Normal 38.8-50.0 [facility] Comment on above: Performed By: #### B MP, CBC #### [address] Hemoglobin (Bld) [Mass/Vol] 14.3 g/dL Normal 13.0-17.0 [facility] Comment on above: Performed By: #### B MP, CBC #### [address] Lymphocytes (Bld) [#/Vol] 1.4 10*3/uL Normal 1.00-4.8 [facility] Comment on above: Performed By: #### B MP, CBC #### [address] Lymphocytes/100 WBC (Bld) 25.7 % Normal . [facility] Comment on above: Performed By: #### B MP, CBC #### [address] MCH (RBC) [Entitic mass] 29.9 pg Normal 27.5-35.2 [facility] Comment on above: Performed By: #### B MP, CBC #### [address] MCV (RBC) [Entitic vol] 89.8 fL Normal 83.5-101 [facility] Comment on above: Performed By: #### B MP, CBC #### [address] [place] [address] [place] Mean Corpuscular HGB Conc 33.3 g/dL Normal 32.5-35.6 [facility] Comment on above: Performed By: #### B MP, CBC #### [facility] [address] [place] [address] [place] Monocytes (Bld) [#/Vol] 0.4 10*3/uL Normal 0.0-0.8 [facility] Comment on above: Performed By: #### B MP, CBC #### [place] [address] [place] Monocytes/100 WBC (Bld) 6.9 % Normal . [facility] Comment on above: Performed By: #### B MP, CBC #### [address] Neutrophils (Bld) [#/Vol] 3.5 10*3/uL Normal 1.8-7.7 [facility] Comment on above: Performed By: #### B MP, CBC #### [place] [address] [place] Neutrophils/100 WBC (Bld) 62.6 % Normal . [facility] Comment on above: Performed By: #### B MP, CBC #### [place] [address] [place] Nucleated RBC/100 WBC (Bld) [Ratio] 0.1 % Normal 0-0.5 [facility] Comment on above: Performed By: #### B MP, CBC #### [place] [address] [place] Platelet mean volume (Bld) [Entitic vol] 8.9 fL Normal 6.6-10.1 [facility] Comment on above: Performed By: #### B MP, CBC #### [place] [address] [place] Platelets (Bld) [#/Vol] 260 10*3/uL Normal 150-450 [facility] Comment on above: Performed By: #### B MP, CBC #### [address] [address] [place] RBC (Bld) [#/Vol] 4.79 10*6/uL Normal 3.90-5.60 [facility] Comment on above: Performed By: #### B MP, CBC #### [facility] [address] WBC (Bld) [#/Vol] 5.5 10*3/uL Normal 4.5-11.0 [facility] Comment on above: Performed By: #### B MP, CBC #### [facility] [address] Creatinine and Glomerular fi ltration rate.predicted panel (S/P/Bld)Ordered By: Miguel Astorga on 04-19-2022 Creatinine [Mass/Vol] 1.13 mg/dL 0.64-1.27 [facility] ECG 12 lead ECGon 04-19-2022 ECG 12 lead ECG [facility] [address] [place] [address] [place] [address] Electrocardiograph Report Signed Patient: Oscar Manuel MR#: [id number] : 1950 Acct:[id number] Age/Sex: 72 / M ADM Date: 04/19/22 Loc: Room: Type: [facility] Attending Dr: Miguel Astorga DO Ordering [...] ECGs available Confirmed by SUZIE MCLEAN MD ([id number]) on 04/20/2022 3:16:43 PM Referred By: TAVARES ASTORGA Electronically Signed By:SUZIE MCLEAN MD Transcribed By: MUS Signed By Suzie Mclean MD 0 04/20/22 1516 Normal [facility] Eosinophils Auto (Bld) [#/Vo l]Ordered By: Miguel Astorga on 04-19-2022 Eosinophils (Bld) [#/Vol] 0.2 10*3/uL 0.0-0.45 [facility] Eosinophils/100 WBC Auto (Bl d)Ordered By: Miguel Astorga on 04-19-2022 Eosinophils/100 WBC (Bld) 3.9 % [facility] Erythrocyte distribution wid th Auto (RBC) [Ratio]Ordered By: Miguel Astorga on 04-19-2022 Erythrocyte distribution width (RBC) [Ratio] 14.1 % 12.0-14.8 [facility] Estimated glomerular filtrat ion rate (GFR) non- AmericanOrdered By: Miguel Astorga on 04-19-2022 GFR/1.73 sq M.predicted among non-blacks MDRD (S/P/Bld) [Vol rate/Area] > 60 mL/Min [facility] Hematocrit Auto (Bld) [Volum e fraction]Ordered By: Miguel Astorga on 04-19-2022 Hematocrit (Bld) [Volume fraction] 43.0 % 38.8-50.0 [facility] Laboratory - Hematology and Cell countsOrdered By: Miguel Astorga on 04-19-2022 Nucleated RBC/100 WBC (Bld) [Ratio] 0.1 % 0-0.5 [facility] Lymphocytes Auto (Bld) [#/Vo l]Ordered By: Miguel Astorga on 04-19-2022 Lymphocytes (Bld) [#/Vol] 1.4 10*3/uL 1.00-4.8 [facility] Lymphocytes/100 WBC Auto (Bl d)Ordered By: Miguel Astorga on 04-19-2022 Lymphocytes/100 WBC (Bld) 25.7 % [facility] MCH Auto (RBC) [Entitic mass ]Ordered By: Miguel Astorga on 04-19-2022 MCH (RBC) [Entitic mass] 29.9 pg 27.5-35.2 [facility] MCHC Auto (RBC) [Mass/Vol]Or dered By: Miguel Astorga on 04-19-2022 MCHC (RBC) [Mass/Vol] 33.3 g/dL 32.5-35.6 [facility] MCV Auto (RBC) [Entitic vol] Ordered By: Miguel Astorga on 04-19-2022 MCV (RBC) [Entitic vol] 89.8 fL 83.5-101 [facility] Monocytes Auto (Bld) [#/Vol] Ordered By: Miguel Astorga on 04-19-2022 Monocytes (Bld) [#/Vol] 0.4 10*3/uL 0.0-0.8 [facility] Monocytes/100 WBC Auto (Bld) Ordered By: Miguel Astorga on 04-19-2022 Monocytes/100 WBC (Bld) 6.9 % [facility] Neutrophils Auto (Bld) [#/Vo l]Ordered By: Miguel Astorga on 04-19-2022 Neutrophils (Bld) [#/Vol] 3.5 10*3/uL 1.8-7.7 [facility] Neutrophils/100 WBC Auto (Bl d)Ordered By: Miguel Astorga on 04-19-2022 Neutrophils/100 WBC (Bld) 62.6 % [facility] No Panel InformationOrdered By: Miguel Astorga on 04-19-2022 Estimated GFR () > 60 mL/Min [facility] Comment on above: GFR estimated refere nce range: According to KDOQI guidelines, <60 ml/min/1.73m2 is sufficient to diagnose a patient with chronic kidney disease. Pharmacy Creatinine Clearance (Chem N/A [facility] Platelet mean volume Auto (B ld) [Entitic vol]Ordered By: Miguel Astorga on 04-19-2022 Platelet mean volume (Bld) [Entitic vol] 8.9 fL 6.6-10.1 [facility] Platelets Auto (Bld) [#/Vol] Ordered By: Miguel Astorga on 04-19-2022 Platelets (Bld) [#/Vol] 260 10*3/uL 150-450 [facility] RBC Auto (Bld) [#/Vol]Ordere d By: Miguel Astorga on 04-19-2022 RBC (Bld) [#/Vol] 4.79 10*6/uL 3.90-5.60 [facility] Serum or plasma calcium dieter urement (mass/volume)Ordered By: Miguel Astorga on 04-19-2022 Calcium [Mass/Vol] 9.1 mg/dL 8.2-10.2 [facility] Serum or plasma chloride shashank surement (moles/volume)Ordered By: Miguel Astorga on 04-19-2022 Chloride [Moles/Vol] 103 mmol/L 95-114 [facility] Serum or plasma glucose dieter urement (mass/volume)Ordered By: Miguel Astorga on 04-19-2022 Glucose [Mass/Vol] 102 mg/dL 70-100 [facility] Comment on above: ADA recommended refe rence range Random Glucose Reference Range is dependent on time and content of last meal. Glucose of more than 200 mg/dL in a nonstressed, ambulatory subject supports the diagnosis of Diabetes Mellitus. Serum or plasma potassium me asurement (moles/volume)Ordered By: Miguel Astorga on 04-19-2022 Potassium [Moles/Vol] 4.2 mmol/L 3.5-5.1 [facility] Serum or plasma sodium measu rement (moles/volume)Ordered By: Miguel Astorga on 04-19-2022 Sodium [Moles/Vol] 137 mmol/L 136-146 [facility] Serum or plasma total carbon dioxide measurement (moles/volume)Ordered By: Miguel Astorga on 04-19-2022 CO2 [Moles/Vol] 25.0 mmol/L 22.0-30.[address] [facility] Serum or plasma urea nitroge n measurement (mass/volume)Ordered By: Mgiuel Astorga on 04-19-2022 Urea nitrogen [Mass/Vol] 18 mg/dL 9-23 [facility] Vital Signs Date Time Vital Sign Value Performing Clinician Christopher salamanca 06-24-2023 15:47-0400 Blood Pressure Location Natali SOLARES [facility] 06-24-2023 15:47-0400 Diastolic blood pressure 80 mm[Hg] Natali SOLARES [facility] 06-24-2023 15:47-0400 Heart rate 68 /min Natali SOLARES [facility] 06-24-2023 15:47-0400 Respiratory rate 16 /min Natali SOLARES [facility] 06-24-2023 15:47-0400 Systolic blood pressure 130 mm[Hg] Natali SOLARES [facility] 05-07-2022 14:57-0400 Blood Pressure Location Natali SOLARES [facility] 05-07-2022 14:57-0400 Diastolic blood pressure 81 mm[Hg] Natali SOLARES [facility] 05-07-2022 14:57-0400 Heart rate 72 /min Natali SOLARES [facility] 05-07-2022 14:57-0400 Respiratory rate 16 /min Natali SOLARES [facility] 05-07-2022 14:57-0400 Systolic blood pressure 149 mm[Hg] Natali SOLARES [facility] 04-20-2022 15:00-0400 Diastolic blood pressure 58 mm[Hg] DO Miguel Murcek Work Phone: [facility] 04-20-2022 15:00-0400 Heart rate 72 /min DO Miguel Murcek Work Phone: [facility] 04-20-2022 15:00-0400 Respiratory rate 16 /min DO Miguel Toribioceshelby Work Phone: [facility] 04-20-2022 15:00-0400 SaO2% (BldA) [Mass fraction] 95 % DO Miguel Malucek Work Phone: [facility] 04-20-2022 15:00-0400 Systolic blood pressure 118 mm[Hg] DO Miguel Malucek Work Phone: [facility] 04-20-2022 13:09-0400 Body temperature 97.5 [degF] DO Miguel Toribioceshelby Work Phone: [facility] 04-20-2022 13:09-0400 Inhaled oxygen flow rate 6 L/min DO Miguel Toribioceshelby Work Phone: [facility] 04-20-2022 12:40-0400 Body height 187.96 cm DO Miguel Maluceshelby Work Phone: [facility] 04-20-2022 12:40-0400 Body mass index (BMI) [Ratio] 30.9 kg/m2 DO Miguel Toribioceshelby Work Phone: [facility] 04-20-2022 12:40-0400 Body weight 109.4 kg DO Miguel Toribioceshelby Work Phone: [facility] Encounters Encounter Date Encounter Type Care Provider Facility Start: 06-29-2024 ambulatory Natali Zelaya ty:ALEXANDRA Pleitez Start: 02-04-2024 End: 02-04-2024 ambulatory NORTH CHAPIN Not Available Start: 12-03-2023 End: 12-03-2023 ambulatory ROXANNE AMIN [facility] Start: 07-30-2023 End: [facility]: 06-24-2023 End: 06-25-2023 ambulatory Natali SOLARES Facility:ALEXANDRA Pleitez Start: 06-24-2023 End: 06-24-2023 Patient encounter procedure Natali Gonzalez SOLARES [facility] Start: 04-09-2023 End: 04-09-2023 ambulatory MATTHIAS SAHA Yonatan Facility:[facility] Start: 03-18-2023 End: 03-18-2023 ambulatory Miriam Carpenter Facility:[facility] Start: 03-18-2023 End: 03-18-2023 ambulatory MD Miriam Carpenter Work Phone: [facility] Work Phone: Start: 03-18-2023 End: 03-18-2023 Departed Referred MD Miriam Carpenter Work Phone: [facility] [place] Work Phone: Start: 03-12-2023 End: 03-13-[address] NORTH CHAPIN Facility:[facility] Start: 03-08-2023 ambulatory ROXANNE BRENNAN [facility] Start: 03-06-2023 End: 03-07-[address] NORTH CHAPIN Facility:[facility] Start: 12-20-2022 End: 12-21-[address] RAZ MATOS Facility:[facility] Start: 12-18-2022 End: 12-19-2022 ambulatory MODESTO ROCHE Facility:[facility] Start: 12-06-2022 End: 12-06-[address] NORTH CHAPIN Facility:[facility] Start: 11-06-2022 End: 11-07-2022 ambulatory MODESTO ROCHE Facility:[facility] Start: 10-16-2022 End: 10-17-2022 ambulatory MODESTO ROCHE Facility:[facility] Start: 09-27-2022 End: 09-27-2022 ambulatory BARBIE CANSECO Facility:[facility] Start: 09-26-2022 Encounter for preprocedural cardiovascular examination [facility] Start: 09-26-2022 Encounter for preprocedural laboratory examination [facility] Start: 09-24-2022 ambulatory BARBIE CANSECO [...] encounter procedure Natali SOLARES [facility] Start: 04-27-2022 End: 04-28-[address] NATALI SOLARES . Facility:[facility] Start: 04-20-2022 End: 04-20-2022 ambulatory Miguel Astorga Facility:[facility] Start: 04-20-2022 End: 04-20-2022 Admission to same day surgery center DO Miguel Astorga Work Phone: [facility] [place] Start: 04-19-2022 End: 04-19-2022 ambulatory [place] Facility:[facility] Start: 04-19-2022 End: 04-19-2022 Patient encounter procedure DO Miguel Astorga Work Phone: [facility] Procedures Date Procedure Procedure Detail Performing Clinician Start: 04-27-2022 PSA screening MODESTO ROCHE Comment on above: Performed By: #### P SAD ####[facility] [id number] [place], [place] [address]Dr. Sanjuana Kasper Start: 04-20-2022 OR Cheek Lesion Exc W/Flap Recon (Not Applicable) DO Miguel Astorga Work Phone: Colonoscopy Natali SOLARES ft (qualifier value) Natali SOLARES Prosthetic arthropla sty of the hip Natali SOLARES Removal of Basal Agustina l on Nose Natali SOLARES Repair of inguinal hernia Pa gunjanshelby SOLARES Titanium Plate Left Arm Cleor ugo SOLARES Tonsillectomy and adenoidectomy Natali SOLARES Plan of Treatment Date Care Activity Detail Author Start: 03-18-2023 Superficial Wound Culture Superficial Wound Culture [facility] SARS-CoV-2 (COVID-19 ) N gene [Presence] in Respiratory specimen by DAISY with probe detection [facility] Work Phone: Immunizations Immunization Date Immunization Notes Care Provider Amanda griffin 09-02-2022 influenza virus vacc ine, unspecified formulation Natali SOLARES [facility] 10-05-2021 SARS-CoV-2 (COVID-19 ) mRNA BNT-162b2 vax Natali SOLARES [facility] 08-14-2021 influenza virus vacc ine, unspecified formulation Natali SOLARES [facility] 08-14-2021 pneumococcal polysaccharide vaccine, 23 valent Natali SOLARES [facility] 03-22-2021 SARS-CoV-2 (COVID-19 ) mRNA BNT-162b2 vax Natali SOLARES [facility] Comment on above: Result Comment: caseyo r 03-22-2021 SARS-CoV-2 (COVID-19 ) mRNA-1273 vaccine Natali SOLARES [facility] 03-01-2021 SARS-CoV-2 (COVID-19 ) mRNA BNT-162b2 vax [employer] [facility] 02-23-2021 SARS-CoV-2 (COVID-19 ) mRNA BNT-162b2 vax Natali SOLARES [facility] Comment on above: Result Comment: erro r 08-05-2020 influenza virus vacc ine, unspecified formulation [employer] [facility] 08-05-2020 pneumococcal conjuga te vaccine, 13 valent [employer] [facility] 08-31-2019 influenza virus vacc ine, unspecified formulation [employer] [facility] 07-08-2018 influenza virus vacc ine, unspecified formulation [employer] [facility] 07-08-2018 zoster vaccine recombinant [employer] [facility] 03-25-2018 zoster vaccine recombinant [employer] [facility] 08-08-2017 influenza virus vacc ine, unspecified formulation [employer] [facility] 07-26-2017 influenza virus vacc ine, unspecified formulation [employer] [facility] 07-19-2016 influenza virus vacc ine, unspecified formulation [employer] [facility] 09-03-2015 influenza virus vacc ine, unspecified formulation [facility] Payers Date Payer Category Payer Self-pay [id number] 1959 Private Health Insurance 101 [id number] 1950 Unknown [id number] 2.16.840.1.933083.3.579.2.59 3 1952 Unknown [id number] 2.16.840.1.085012.3.579.2.59 3 1952 Unknown [id number] 2.16.840.1.616486.3.579.2.59 3 1952 Unknown [id number] 2.16.840.1.253511.3.579.2.59 3 1952 Unknown [id number] 2.16.840.1.133566.3.579.2.59 3 1952 Unknown [id number] 2.16.840.1.402358.3.579.2.59 3 1952 Unknown [id number] 2.16.840.1.546622.3.579.2.59 3 1952 Unknown [id number] 2.16.840.1.761268.3.579.2.59 3 1952 Unknown [id number] 2.16.840.1.311615.3.579.2.59 3 1952 Unknown [id number] 2.16.840.1.758726.3.579.2.59 3 1952 Unknown [id number] 2.16.840.1.919760.3.579.2.59 3 1952 Unknown [id number] 2.16.840.1.627545.3.579.2.59 3 1952 Unknown [id number] 2.16.840.1.464242.3.579.2.59 3 1952 Unknown [id number] 2.16.840.1.078284.3.579.2.59 3 1952 Unknown [id number] 2.16.840.1.771725.3.579.2.59 3 1952 Unknown [id number] 2.16.840.1.198760.3.579.2.72 7 1952 Unknown [id number] 2.16.840.1.248724.3.579.2.72 7 1952 Unknown [id number] 2.16.840.1.578380.3.579.2.12 59 Private Health Insurance [employer] Mcr PFFS N on Pt [id number] Unknown [id number] Unknown [id number] 2.16.840.1.382736.3.579.2.53 1 Unknown [id number] 2.16.840.1.334296.3.579.2.53 1 Unknown [id number] 2.16.840.1.471433.3.579.2.53 1 Social History Date Type Detail Facility Start: 05-07-2022 End: 06-24-2023 Tobacco smoking status Never smoked tobacco (finding) [facility] Work Phone: Sex Assigned At Male [facility] Start: 1950 Sex Assigned At Male [facility] Tobacco smoking status Never [facility] Goals Date Patient Goal Desired Activity /State Functional Status Date Assessment Result Facility 06-24-2023 Functional Status N/A [facility] 05-07-2022 Functional Status N/A [facility] Clinical Notes 05-07-2022 to 12-03-2023 Note Date [...] All other systems reviewed and are negative. [facility] Note Reason for visit: Dizziness/SVT [...] years ago here he was admitted to [facility] with A. fib with rapid ventricular [...] 48 hours from 12/24/2021 to 12/10/2021 at [facility] was reviewed by me and shows PVC burden of less than 1% and PVC count of 6%. Occasional nonsustained atrial tachycardia few beats seen but no atrial fibrillation noted. No ventricular tachycardia noted EKG 10/17/2021 shows sinus rhythm with normal intervals Echocardiogram done at [facility] on 09/06/2021 shows ejection fraction of 60% [...] PARTIAL HIP ART (more content not included)... [facility] 07-30-2023 Note [facility] Consult Note Reason for visit: Dizziness [...] years ago here he was admitted to [facility] with A. fib with rapid ventricular [...] 48 hours from 12/24/2021 to 12/10/2021 at [facility] was reviewed by me and shows PVC burden of less than 1% and PVC count of 6%. Occasional nonsustained atrial tachycardia few beats seen but no atrial fibrillation noted. No ventricular tachycardia noted EKG 10/17/2021 shows sinus rhythm with normal intervals Echocardiogram done at [facility] on 09/06/2021 shows ejection fraction of 60% [...] kg (246 l (more content not included)... [facility] 07-30-2023 Note Patient here for 6 m o follow up PAF and dizziness. He had labs, ECG, carotid US, and echo in February 2023. Says dizziness has subsided. He denies chest pain, SOB, and palpitations. Doing very well from cardiac standpoint. Review of Systems Cardiovascular: Positive for leg swelling. Musculoskeletal: Positive for arthritis. All other systems reviewed and are negative. [facility] 06-24-2023 Hospital Discharge instructions Patient Education [...] urethra. Follow these instructions at home: Take lkxp-mas-xuiffkz and prescription medicines only as told by [...] provider. Document Revised: 05/30/2022 Document Reviewed: 05/30/2022 [employer] Patient Education 2022 [employer]. Follow Up Care 05/07/2022 15:53:47 With:ESEQUIEL RUSSELL, Natail Gonzalez, URL Address: [facility] [address], [place] [address]- [phone] When: Unknown Comments:1 yr w/ PSA [facility] 03-08-2023 Note Date of Telehealth V isit: 03/08/2023 The patient was notified that using 3rd libertarian telecommunication application (e.g., [employer]) is not HIPPA compliant and may carry some privacy risks. Yes The visit was conducted [id number] with the use of audio and video technology Doxy[employer]me between patient and provider for a virtual [...] documentation in this note for specific details. [facility] Consult Note Reason for visit: Dizziness [...] years ago here he was admitted to [facility] with A. fib with rapid ventricular [...] 48 hours from 12/24/2021 to 12/10/2021 at [facility] was reviewed by me and shows PVC burden of less than 1% and PVC count of 6%. Occasional nonsustained atrial tachycardia few beats seen but no atrial fibrillation noted. No ventricular tachycardia noted EKG 10/17/2021 shows sinus rhythm with normal intervals Echocardiogram done at [facility] on 09/06/2021 shows ejection fraction of 60% [...] HERNIA REPAIR 05 (more content not included)... [facility] 12-18-2022 Note PROCEDURE: XR FOOT L [...] authenticated by: MARÍA BRYSON Date: 2022-12-18 09:32 [facility] 11-06-2022 Note PROCEDURE: XR FOOT L [...] authenticated by: RAZ MATOS Date: 2022-11-06 15:27 [facility] 10-17-2022 Note PROCEDURE: XR FOOT L T [...] authenticated by: RAZ MATOS Date: 2022-10-17 10:46 [facility] 09-27-2022 Note PROCEDURE: XR FOOT L T [...] authenticated by: MARÍA BRYSON Date: 2022-09-27 18:29 [facility] 05-15-2022 Note PROCEDURE: XR FOOT R T [...] authenticated by: MARÍA BRYSON Date: 2022-05-15 21:39 [facility] 05-07-2022 Hospital Discharge instructions Patient [...] 11/11/2006 Document Revised: 07/31/2019 Document Reviewed: 10/11/2017 [employer] Patient Education 2020 [employer]. 05/07/2022 15:46:01 Benign Prostatic Hyperplasia Benign Prostatic [...] urethra. Follow these instructions at home: Take mcdj-ksq-hfnktom and prescription medicines only as told by [...] 11/11/2006 Document Revised: 10/06/2019 Document Reviewed: 12/16/2017 [employer] Patient Education 2020 [employer] Follow Up Care 09/04/2021 16:41:31 With:ESEQUIEL RUSSELL, Natali Gonzalez, URL Address: [facility] [address] , [place] [address]- [phone] When:Within 1 Year(s) Comments:f/u in 1 year with PSA and NAIMA [facility] Evaluation + Plan note Future Appointments Appointment Date:05/13/2023 03:00:00 PM Scheduled Provider:Natali SOLARES MD Location:[facility] Appointment Type:URO Office Visit Diagnostic Tests PendingPSA Total 05/07/22 [facility] Evaluation + Plan note Future Appointments Appointment Date:06/29/2024 03:00:00 PM Scheduled Provider:Natali SOLARES MD Location:[facility] Appointment Type:URO Office Visit Diagnostic Tests PendingPSA Total 06/24/23 [facility] Evaluation note No assessment inform ation available [facility] Work Phone: Hospital course Narrative No data available for this section [facility] Progress note No data available for this section [facility] Chief Complaint and Reason for Visit Chief [...] Date/ Time Advance Directives No May 31 8 8:07am Summary Purpose Additional Source Comments Care [...] section and content) DATE CREATED AUTHOR 03/24/2023 [facility] DATE CREATED AUTHOR AUTHOR'S ORGANIZ ATION 04/10/2023 [facility] DATE CREATED AUTHOR AUTHOR'S ORGANIZ ATION 06/26/2023 [facility] DATE CREATED AUTHOR AUTHOR'S ORGANIZ ATION 02/05/2024 [facility] DATE CREATED AUTHOR AUTHOR'S ORGANIZ ATION 02/06/2024 [facility] EPIC FOR RECORDS PERTAINING TO PATIENTS WHO ARE [...] BE BASED ON THE PRIMARY CLINICAL RECORDS. [facility] [employer] [facility]. provides no warranty or guarantee of the accuracy or completeness of information in this document.
[2024-02-06 10:51] LABS: Basophils Percent Auto 0.8 % (0.2-2.0); Eosinophils Absolute Auto 0.3 10^3/uL (0.0-0.7); Eosinophils Percent Auto 5.2 % (0.9-7.0); Hematocrit 45.1 % (42.0-54.0); Hemoglobin 14.9 g/dL (14.0-18.0); Immature Granulocytes Abs Auto 0.01 10^3/uL (0.00-0.03); Immature Granulocytes Pct Auto 0.2 % (0.0-0.5); Lymphocytes Absolute Auto 1.4 10^3/uL (1.2-3.8); Lymphocytes Percent Auto 27.2 % (20.5-60.0); Mean Corpuscular Volume 90.7 fL (80.0-94.0); Mean Platelet Volume 11.2 fL (9.5-13.5); Monocytes Absolute Auto 0.5 10^3/uL (0.3-0.8); Monocytes Percent Auto 9.7 % (1.7-12.0); Neutrophils Percent Auto 56.9 % (43.0-75.0); Platelet Count 221 10^3/uL (150-450); Red Blood Count 4.97 10^6/uL (4.70-6.10); Red Cell Distribution Width 13.2 % (11.0-15.0); White Blood Count 5.2 10^3/uL (4.0-11.0)
[2024-02-06 11:32] LABS: Anion Gap 12.5; Calcium 8.8 mg/dL (8.5-10.1); Carbon Dioxide 25.5 mmol/L (21.0-32.0); Chloride 105 mmol/L (98-107); Estimated GFR (African America >60 (>=60); Estimated GFR (Non-African Ame >60 (>=60); Glucose 85 mg/dL (74-106); Sodium 139 mmol/L (136-145)
== END 2024-02-06 10:25 | disposition home or self-care (01) ==
LOC: LAB 10:25
PROVIDERS: PCP Family Medicine; Visit Provider Internal Medicine Cardiovascular Disease
DX: I47.10 Supraventricular tachycardia, unspecified (principal)
CPT/HCPCS: 36415; 80048; 85025

== ENCOUNTER 2024-03-03 08:32 | Outpatient (OUT) | payer MEDICARE, SELFPAY ==
--- NOTE | 2024-03-03 08:39 | MR_ITS ---
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 TECHNIQUE: Multi-planar, multi-sequence brain MRI was performed without IV contrast. FINDINGS: Brain volume: Normal. Sagittal midline structures: Normal. Ventricles: Normal. Acute ischemic changes: None. Hemorrhage: None. Masses/edema: None. Griffin-white: Negative. White matter: Normal. Vessels: Normal. Extra-axial: None. Calvarium/scalp: Negative. Skull base: Negative. Visualized sinuses/orbits: Negative. Visualized upper neck: Negative. MR/MR head/brain wo con IMPRESSION: 1. No evidence of acute ischemia or neurodegenerative disease Electronically authenticated by: ROSE OSUNA Date: 03/03/2024 13:02
== END 2024-03-03 08:33 | disposition home or self-care (01) ==
LOC: MRI 08:32
PROVIDERS: PCP Family Medicine; Visit Provider Family Medicine
DX: G45.4 Transient global amnesia (principal)
CPT/HCPCS: 70551

== ENCOUNTER 2024-03-26 12:10 | Outpatient (OUT) | payer MEDICARE, SELFPAY ==
[2024-03-26 12:33] LABS: Basophils Absolute Auto 0.1 10^3/uL (0.0-0.1); Basophils Percent Auto 0.9 % (0.2-2.0); Eosinophils Absolute Auto 0.2 10^3/uL (0.0-0.7); Eosinophils Percent Auto 3.4 % (0.9-7.0); Hematocrit 41.4 % (42.0-54.0); Hemoglobin 13.9 g/dL (14.0-18.0); Immature Granulocytes Abs Auto 0.01 10^3/uL (0.00-0.03); Immature Granulocytes Pct Auto 0.2 % (0.0-0.5); Lymphocytes Absolute Auto 1.6 10^3/uL (1.2-3.8); Lymphocytes Percent Auto 28.4 % (20.5-60.0); Mean Corpuscular HGB Conc 33.6 g/dL (29.9-35.2); Mean Corpuscular Hemoglobin 30.2 pg (25.9-34.0); Mean Corpuscular Volume 89.8 fL (80.0-94.0); Monocytes Absolute Auto 0.3 10^3/uL (0.3-0.8); Neutrophils Absolute Auto 3.4 10^3/uL (1.4-6.5); Neutrophils Percent Auto 61.1 % (43.0-75.0); Platelet Count 220 10^3/uL (150-450); Red Blood Count 4.61 10^6/uL (4.70-6.10); Red Cell Distribution Width 13.2 % (11.0-15.0); White Blood Count 5.6 10^3/uL (4.0-11.0)
[2024-03-26 12:49] LABS: Alanine Aminotransferase 25 U/L (16-63); Albumin Globulin Ratio 1.3; Albumin Level 3.8 g/dL (3.4-5.0); Alkaline Phosphatase 99 U/L (46-116); Anion Gap 10.6; Aspartate Amino Transferase 19 U/L (15-37); BUN Creatinine Ratio 17.9; Bilirubin Direct 0.1 mg/dL (0.0-0.2); Bilirubin Total 0.5 mg/dL (0.2-1.0); Calcium 9.1 mg/dL (8.5-10.1); Carbon Dioxide 27.1 mmol/L (21.0-32.0); Chloride 107 mmol/L (98-107); Chol HDL Ratio 2.9; Cholesterol 169 mg/dL (<=200); Estimated GFR (African America >60 (>=60); Estimated GFR (Non-African Ame >60 (>=60); Glucose 101 mg/dL (74-106); HDL Cholesterol 58 mg/dL (40-60); LDL Cholesterol Calculated 86.8 mg/dL; Potassium 3.7 mmol/L (3.5-5.1); Sodium 141 mmol/L (136-145); Total Protein 6.8 g/dL (6.4-8.2); Triglycerides 121 mg/dL (<=150); VLDL CHOLESTEROL 24.2 mg/dL
[2024-03-26 13:22] LABS: Estimated Average Glucose 108 mg/dL; Glycohemoglobin A1C 5.4 % (4.5-6.2)
[2024-03-26 14:09] LABS: Prostate Specific Antigen Scrn 1.02 ng/mL (<=4.00)
[2024-03-27 11:01] LABS: Thyroid Stimulating Hormone 1.878 uIU/mL (0.358-3.740)
== END 2024-03-26 12:11 | disposition home or self-care (01) ==
LOC: LAB 12:14
PROVIDERS: PCP Family Medicine; Visit Provider Family Medicine
DX: Z79.899 Other long term (current) drug therapy (principal); E78.5 Hyperlipidemia, unspecified; Z12.5 Encounter for screening for malignant neoplasm of prostate; E66.9 Obesity, unspecified; R73.03 Prediabetes
CPT/HCPCS: 36415; 80048; 80061; 80076; 83036; 84443; 85025; G0103

== ENCOUNTER 2024-05-06 13:52 | Outpatient (OUT) | payer MEDICARE, SELFPAY ==
--- NOTE | 2024-05-06 | XR_ITS ---
The [address] [address] Patient Name: KAVITA AUSTIN MRN: [id number] date: 1950 Sex: M Assigned Patient Location: Current Patient Location: Accession/Order Number: [id number] Exam Date: 05/06/2024 13:53 Report Date: 05/06/2024 15:49 At the request of: BARBIE CANSECO Procedure: XR foot LT min 3V PROCEDURE: XR foot LT min 3V COMPARISON: 02/06/2024 HISTORY: LEFT FOOT PAIN FINDINGS: BONES:Stable first metatarsal-phalangeal joint fusion with a dorsal plate and multiple screws. Remote osteotomy and screw placement at of the second metatarsal. Remote resection head of the second proximal phalanx. No acute fracture, dislocation or mechanical failure. Mild degenerative changes with marginal osteophyte from admission most significant in the midfoot SOFT TISSUES:Negative. No visible soft tissue swelling. EFFUSION:None visible. OTHER: Negative. XR/XR foot LT min 3V IMPRESSION: Stable postsurgical and degenerative changes Electronically authenticated by: MARÍA BRYSON Date: 05/06/2024 15:49
--- OUTSIDE RECORDS SUMMARY | 2024-05-06 14:10 | XMS_ITS ---
Patient Summarization (C-CDA 2.1 CCD) Created on: May 06, 2024 OSCAR MANUEL : 1950 Sex: Male Author Organization Sample organization Care Team Providers Care Silk Spotter Name Role Phone NORTH [place] Primary Care Physician DO Miguel Astorga Attending Provider MD [place] Primary Care Provider Miguel Astorga Admitting Unavailable Nadereely, North Primary Care Unavailable Miguel Astorga Attending Unavailable PetittSakina bravo Attending Unavailable Petmikel, Sakina Hines Admitting Unavailable Naderer, North Primary Care Unavailable Miguel Astorga Attending Unavailable Miguel Astorga Admitting Unavailable MD Sakina Rivas Attending Provider [phone] MODESTO ROCHE Attending Unavailable MODESTO ROCHE Admitting Unavailable WEST, DR MARÍA Danielle Consulting Unavailable NADERER, DR NORTH Hines Primary Care Unavailable MODESTO ROCHE Consulting Unavailable SOLARES ., DR HURST Attending Unavailable SOLARES ., DR HURST Admitting Unavailable NADERER, DR NORTH Hines Primary Care Unavailable SOLARES ., DR HURST Consulting Unavailable HIGHLBARBIE MONSON Consulting Unavailable HIGHLBARBIE MONSON Attending Unavailable BARBIE CANSECO Admitting Unavailable NADERER, DR NORTH Hines Primary Care Unavailable NADERER, DR NORTH Hines Attending Unavailable NADERER, DR NORTH Hines Admitting Unavailable NADERER, DR NORTH Hines Primary Care Unavailable WEST, DR MARÍA Danielle Consulting Unavailable NADERER, DR NORTH Hines Consulting Unavailable HIGHLANDER, BARBIE Chávez Attending Unavailable HIGHLERMIAS, BARBIE Chávez Admitting Unavailable NADERER, DR NORTH Hines Primary Care Unavailable MARIA A .MATTHIAS Attending Unavailable MARIA A .MATTHIAS Admitting Unavailable NADERER, DR NORTH Hines Primary Care Unavailable JOCELYN LOVE Consulting Unavailable MARIA A .MATTHIAS Consulting Unavailable ASMITA CLARK Consulting Unavailable HIGHLANDERBARBIE Attending Unavailable HIGHLBARBIE MONSON Admitting Unavailable NADERER, DR NORTH Hines Primary Care Unavailable WEST, DR MARÍA Danielle Consulting Unavailable HIGHLANDER, BARBIE Chávez Consulting Unavailable BLAKE ., LAW FAIR Consulting Unavailable MORGOS, LOUANN Consulting Unavailable MARC, WILMAR MULLINS Consulting [...] Gonzalez Consulting Unavailable KALEY, MODESTO Consulting Unavailable BRENNAN, TIAGO Referring Unavailable GRACIE, SOLEDAD Attending Unavailable BARAZI, ANUPAM Attending Unavailable BRENNAN, TIAGO Attending Unavailable BRENNAN, TIAGO Attending Unavailable BRENNAN, TIAGO Admitting Unavailable BRENNAN, TIAGO Referring Unavailable BRENNAN, TIAGO Referring Unavailable SOLARES, Natali Gonzalez Attending Unavailable SOLARES, Natali Gonzalez Attending Unavailable NADERER, NORTH Attending Unavailable PETITTI, SAKINA Hines Attending Unavailable NADERER, NORTH Attending Unavailable APLING, ANDREW Peterson Attending Unavailable APLING, ANDREW Peterson Referring Unavailable Allergies Allergy Classification Reported Allergen(s) Allergy Type Date of Onset Reaction(s) Facility (1 source) No Known Medication Allergies; Translations: [No Known Medication Allergies] Propensity to adverse reactions (disorder) [facility] Rep[facility] Encounters Encounter Date Encounter Type Care Provider Facility Start: 06-29-2024 ambulatory Natali SOLARES Facili ty:[facility] [place] Start: 03-30-2024 End: 03-31-2024 ambulatory ANDREW VERONICA Not Available Start: 03-24-2024 ambulatory [facility] Start: 03-17-2024 End: 03-17-2024 ambulatory SOLEDAD [facility] Start: 03-17-2024 End: 03-17-2024 ambulatory NORTH CHAPIN Not Available Start: 02-12-2024 ambulatory [facility] Start: 02-12-2024 End: 02-12-2024 ambulatory [facility] Start: 02-10-2024 End: 02-10-2024 ambulatory SAKINA RIVAS Not Available Start: 02-04-2024 End: 02-04-2024 ambulatory NORTH CHAPIN Not Available Start: 12-03-2023 End: 12-03-2023 ambulatory [facility] Start: 07-30-2023 End: 07-30-2023 ambulatory ANUPAM [facility] Start: 06-24-2023 End: 06-25-2023 ambulatory Natali SOLARES Facility:[facility] Start: 06-24-2023 End: 06-24-2023 Patient encounter procedure Natali SOLARES [facility] [place] Start: 04-09-2023 End: 04-09-2023 ambulatory MATTHIAS Tam Facility: Start: 03-18-2023 End: 03-18-2023 ambulatory Sakina A Petitti Facility:[facility] Start: 03-18-2023 End: 03-18-2023 ambulatory MD Sakina Rivas Work Phone: [facility] Work Phone: Start: 03-18-2023 End: 03-18-2023 Departed Referred MD Sakina Rivas Work Phone: [facility] [place] Work Phone: Start: 03-12-2023 End: 03-13-[address] NORTH CHAPIN Facility:[facility] Start: 03-06-2023 End: 03-07-[address] NORTH [...] Start: 09-26-2022 Encounter for preprocedural cardiovascular examination [facility] Start: 09-26-2022 Encounter for preprocedural laboratory examination [facility] Start: 09-24-2022 ambulatory BARBIE CANSECO Faci [...] encounter procedure Natali SOLARES [facility] Start: 04-27-2022 End: 04-28-[address] NATALI SOLARES . Facility: Start: 04-20-2022 End: 04-20-2022 ambulatory Miguel Gauri Facility:[facility] Start: 04-20-2022 End: 04-20-2022 Admission to same day surgery center DO Miguel Astorga Work Phone: [facility] [place] Start: 04-19-2022 End: 04-19-2022 ambulatory [place] Facility:[facility] Start: 04-19-2022 End: 04-19-2022 Patient encounter procedure DO Miguel Astorga Work Phone: [facility]Pre[facility]Surgical Testing Goals Date Patient Goal Desired Activity /State Immunizations Immunization Date Immunization Notes Care Provider Amanda griffin 09-02-2022 influenza virus vacc ine, unspecified formulation Natali SOLARES [facility] 10-05-2021 SARS-CoV-2 (COVID-19 ) mRNA BNT-162b2 vax Natali SOLARES [facility] 08-14-2021 influenza virus vacc ine, unspecified formulation Natali SOLARES [facility] 08-14-2021 pneumococcal polysaccharide vaccine, 23 valent Natail SOLARES [facility] 03-22-2021 SARS-CoV-2 (COVID-19 ) mRNA BNT-162b2 vax Natali SOLARES [facility] Comment on above: Result Comment: erro r 03-22-2021 SARS-CoV-2 (COVID-19 ) mRNA-1273 vaccine Natali SOLARES [facility] 03-01-2021 SARS-CoV-2 (COVID-19 ) mRNA BNT-162b2 vax Natali [employer] [facility] 02-23-2021 SARS-CoV-2 (COVID-19 ) mRNA BNT-162b2 vax Natali [employer] [facility] Comment on above: Result Comment: erro r 08-05-2020 influenza virus vacc ine, unspecified formulation [employer] [facility] 08-05-2020 pneumococcal conjuga te vaccine, [address] [employer] [facility] 08-31-2019 influenza virus vacc ine, unspecified formulation [employer] [facility] 07-08-2018 influenza virus vacc ine, unspecified formulation [employer] [facility] 07-08-2018 zoster vaccine recombinant [employer] [facility] 03-25-2018 zoster vaccine recombinant [employer] [facility] 08-08-2017 influenza virus vacc ine, unspecified formulation [employer] [facility] 07-26-2017 influenza virus vacc ine, unspecified formulation [employer] [facility] 07-19-2016 influenza virus vacc ine, unspecified formulation [employer] [facility] 09-03-2015 influenza virus vacc ine, unspecified formulation Natali SOLARES [facility] Medications Current Medications Medication Drug Class(es) Dates [...] Start: 04-19-2022 take 1 capsule by mo [facility] once daily [facility] Active 1 CAP [...] Daily, # 90 tab(s), Refills(s) 3, Pharmacy: [facility], 189, cm, 05/07/22 14:58:00 EDT, [...] tab(s), Refills(s) 2, [facility]: [facility], 189, cm, 05/07/22 14:58:00 EDT, Height/Length Dosing, 129, kg, 05/07/22 14:58:00 EDT, Weight Dosing Start Date: 05/07/22 Status: Ordered tadalafil 20 mg oral tablet (1 source) Phosphodiesterase 5 Inhibitor Start: 06-24-2023 take 1 tablet by mouth once daily Cialis 20 mg Tab 20 mg = 1 tab(s), Oral, Daily, # 39 tab(s), Refills(s) 2, [facility]acy: [id number], 189, cm, 05/07/22 14:58:00 EDT, Height/Length Dosing, [...] MG PO Daily April 19, 2022 12:00am Payers Date Payer Category Payer Self-pay [id number] 1959 Private Health Insurance [id number] 1950 Unknown [id number] 2.16.840.1.519506.3.579.2.59 3 1950 Unknown [id number] 2.16.840.1.913504.3.579.2.59 3 1950 Unknown [id number] 2.16.840.1.770815.3.579.2.59 3 1950 Unknown [id number] 2.16.840.1.000408.3.579.2.59 3 1950 Unknown [id number] 2.16.840.1.759087.3.579.2.59 3 1950 Unknown [id number] 2.16.840.1.300563.3.579.2.59 3 1950 Unknown [id number] 2.16.840.1.097225.3.579.2.59 3 1950 Unknown [id number] 2.16.840.1.294462.3.579.2.59 3 1950 Unknown [id number] 2.16.840.1.498226.3.579.2.59 3 1952 Unknown [id number] 2.16.840.1.973046.3.579.2.59 3 1950 Unknown [id number] 2.16.840.1.307247.3.579.2.59 3 1952 Unknown [id number] 2.16.840.1.752082.3.579.2.59 3 1950 Unknown [id number] 2.16.840.1.957926.3.579.2.59 3 1952 Unknown [id number] 2.16.840.1.899647.3.579.2.59 3 1952 Unknown [id number] 2.16.840.1.029249.3.579.2.59 3 1950 Unknown [id number] 2.16.840.1.868926.3.579.2.72 7 1952 Unknown [id number] 2.16.840.1.722689.3.579.2.72 7 1950 Unknown [id number] 2.16.840.1.178838.3.579.2.12 59 1952 Unknown [id number] 2.16.840.1.765927.3.579.2.12 59 1952 Unknown [id number] 2.16.840.1.497283.3.579.2.12 59 1952 Unknown [id number] 2.16.840.1.327402.3.579.2.12 59 1952 Unknown [id number] 2.16.840.1.168117.3.579.2.12 59 Private Health Insurance [employer] Mc[employer] PFFS N on Pt [id number] Unknown [id number] Unknown [id number] 2.16.840.1.072092.3.579.2.53 1 Unknown [id number] 2.16.840.1.759175.3.579.2.53 1 Unknown [id number] 2.16.840.1.528789.3.579.2.53 1 Plan of Treatment Date Care Activity Detail Author Start: 03-18-2023 Superficial Wound Culture Superficial Wound Culture [facility] SARS-CoV-2 (COVID-19 ) N gene [Presence] in Respiratory specimen by DAISY with probe detection [facility] Work Phone: Problems Active Problems Problem Classification Problem Date Documented Date Episodic/Chronic Acquired foot deformities (7 sources) Hallux rigidus, left foot; Translations: [Other hammer toe(s) (acquired), left foot] Onset: 10-08-2022 Chronic Cardiac dysrhythmias (4 sources) Atrial fibrillation; Translations: [Paroxysmal atrial fibrillation] Onset: 12-10-2022 10-28-2019 Chronic Cardiac dysrhythmias (2 sources) Palpitations; Translations: [Palpitations] Onset: 03-24-2024 Episodic Conditions associated with dizziness or vertigo (4 sources) Dizziness and giddiness; Translations: [DIZZINESS AND GIDDINESS] Onset: 03-12-2023 Episodic Diabetes mellitus without complication (4 sources) Prediabetes; [...] 12-10-2022 Chronic Other aftercare (1 source) 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; Translations: [OTH MCFP CURRENT DRUG THERAPY] Onset: 03-11-2023 Episodic Other [...] W/AND (SUSP) EXPOS COVID-19] Onset: 06-06-2022 Unclassified (1 source) Other supraventricular tachycardia; Translations: [Other supraventricular tachycardia] Onset: 03-17-2024 Unclassified (1 source) Supraventricular tachycardia, unspecified; Translations: [Supraventricular tachycardia, unspecified] Onset: 12-20-2023 Past or Other Problems Problem Classification Problem Date Documented Date Episodic/Chronic Complications of surgical procedures or medical care (4 sources) Pseudarthrosis after fusion or arthrodesis; Translations: [PSEUDARTHROSIS AFTER FUS/ARTHRODSIS] Onset: 12-20-2022 Episodic E Codes: Cut/pierceb (1 source) Contact [...] Onset: 12-06-2022 Episodic Other aftercare (1 source) group home (current) use of aspirin; Translations: [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 Sanjuana Kasper Start: 04-20-2022 OR Cheek Lesion Exc W/Flap Recon (Not Applicable) DO Miguel Astorga Work Phone: Colonoscopy Natali SOLARES ft (qualifier value) Natali SOLARES Prosthetic arthropla sty of the hip Natalitasha SOLARES Removal of Basal Agustina l on Nose Natalitasha SOLARES Repair of inguinal hernia Pa cielo SOLARES Titanium Plate Left Arm Cleor ugo ESEQUIEL Tonsillectomy and adenoidectomy Natalitasha SOLARES Results Test Name Value Interpretation Reference Range Facility Lab Reportson 03-30-2024 Lab Reports [id number] 0TIFF Normal [facility] Lab Reports [id number] 0TIFF Normal [facility] Lab Reports [id number]#1.0 0TIFF Normal [facility] Lab Reportson 03-27-2024 Lab Reports [id number] 0TIFF Normal [facility] Office Visiton 03-17-2024 Follow-up visit [id number] Oscar Manuel 1950 M Date Provider Department Center 03/17/2024 SOLEDAD TAVERAS CARD [facility] Family History Problem Relation Age of Onset Other Mother Coronary artery disease Mother Other Father Family Status - Relation Status Age at Mother Father Level of Service:99047 [place] OFFICE/OUTPATIENT ESTABLISHED LOW MDM 20 MIN Reason for Visit and Comments: Atrial Fibrillation [80] Normal [facility] HPon 02-12-2024 [facility] Electrophysiology Consult Note Reason for visit: Dizziness/SVT 02/12/24 Pt had numerous episodes and last did not register. He has come for EPS and ablation. 12/03/23 Loop data reviewed by me and [...] years ago here he was admitted to [facility] with A. fib with rapid ventricular [...] 48 hours from 12/24/2021 to 12/10/2021 at [facility] was reviewed by me and shows PVC burden of less than 1% and PVC count of 6%. Occasional nonsustained atrial tachycardia few beats seen but no atrial fibrillation noted. No ventricular tachycardia noted EKG 10/17/2021 shows sinus rhythm with normal intervals Echocardiogram done at [place] on 09/06/2021 shows ejection fraction of 60% [...] left side Primary osteoarthritis of left hip SVT (supraventricular tachycardia) PSH: Past Surgical History: Procedure Laterality Date HERNIA REPAIR 03/25/2019 PARTIAL HIP ARTHROPLASTY 07/10/2017 TONSILLECTOMY WRIST SURGERY SH: Social Determinants of Health Tobacco Use: Low Risk (07/30/2023) Patient History Smoking Tobacco Use: Never Smokeless Tobacco Use: Never Passive Exposure: Not on file Alcohol Use: Not on file Financial Resource Strain: Not on file Food Insecurity: Not on file Transpor (more content not included)... [facility] NURSNOTEon 02-12-2024 NURSNOTE RN educated pt on d/ c instructions. RN encouraged pt to voice any questions or concerns. Pt verbalizes no questions or concerns at this time. Pt was wheeled off of unit with all of belongings. [facility] Orders Onlyon 02-04-2024 Orders Only [id number] KalebOscar duarte 1950 M Date Provider Department Center 02/04/2024 Waldo-FADIA GILL [facility] Family History Problem Relation Age of Onset Other Mother Coronary artery disease Mother Other Father Family Status - Relation Status Age at Mother Father [facility] Office Visiton 12-03-2023 Follow-up visit [id number] Oscar Manuel 1950 M Date Provider Department Center 12/03/2023 241-TIAGO [facility] Family History Problem Relation Age of Onset Other Mother Coronary artery disease Mother Other Father Family Status - Relation Status Age at Mother Father Level of Service:87945 [place] OFFICE/OUTPATIENT NEW HIGH MDM 60 MINUTES Normal [facility] Orders Onlyon 12-03-2023 Orders Only [id number] Oscar Manuel 1950 M Date Provider Department Center 12/03/2023 Pamella-[facility] Family History Problem Relation Age of Onset Other Mother Coronary artery disease Mother Other Father Family Status - Relation Status Age at Mother Father Normal [facility] Office Visiton 07-30-2023 Follow-up visit [id number] Oscar Manuel 1950 M Date Provider Department Center 07/30/2023 Vandana-ANUPAM COOK [facility] Family History Problem Relation Age of Onset Other Mother Coronary artery disease Mother Other Father Family Status - Relation Status Age at Mother Father Level of Service:80715 [place] OFFICE/OUTPATIENT ESTABLISHED LOW MDM 20-29 MIN Normal [facility] Lab Reportson 06-25-2023 Lab Reports [id number] Normal [facility] Ambulatory Visit Summaryon 0 06-24-2023 Ambulatory Visit Summary OSCAR MANUEL :1950 Visit Date:06/24/2023 Ambulatory Visit Instructions Your Diagnosis 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 Take yaif-wqb-cplthbq and prescription medicines only as told by [...] the medicine (more content not included)... Normal [facility] Reminderson 06-24-2023 Reminders - From: Katheryn Fernandez To: ALEXANDRA Solares; Sent: 06/24/2023 16:41:34 EDT Show up: 05/24/2024 16:41:00 EDT Subject: PSA Reminder Message Please Remember to:_have pt get PSA (done at [facility]) prior to appt. Normal [facility] Urology Office/Clinic Noteon 06-24-2023 Urology Office/Clinic [...] Denies family hx of prostate ca. 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 Normal [facility] Comment on above: Result Comment: Elec tronically Signed By: ESEQUIEL RUSSELL, Natali Gonzalez\.randy\Date and Time Signed: 06/24/23 16:41 EDT\.br\Electronically Co-Signed [...] RESISTANT TO ALL B-LACTAM DRUGS. PERFORMED BY: [place] [id number] PATHOLOGIST BAFFLE INSTALLER ISABELLA MCKEON M.D. [facility] Comment on above: Performed By: #### C USUP #### [address] ECHOCARDIO M/2D COMPLETEon 0 03-12-2023 ECHOCARDIO M/2D COMPLETE Patient: OSCAR MANUEL Exam Date: 03/12/2023 : 1950 Gender:M Ordering : DR NORTH CHAPIN . Admission #: [id number] Family : TIAGO WILBURN MD Order #: [id number] CLICK HERE TO VIEW EXAM ECHOCARDIOGRAM REPORT [...] Solorio M.D. on 03/12/2023 at 18:41 Normal [facility] US CAROTID ART BILon 04-18-2 023 [...] MARÍA BRYSON Date: 2023-03-12 15:01 Normal [facility] CBC AUTO DIFFon 03-06-2023 BASO # 0.1 103/ul Normal 0.0-0.1 [facility] Comment on above: Performed By: #### C BC #### [facility] [address] [address] [address] Sanjuana Kasper Basophils/100 WBC (Bld) 0.9 % Normal 0.2-2.0 [facility] Comment on above: Performed By: #### C BC #### [facility] [address] [address] [address] Sanjuana Kasper EO # 0.3 103/ul Normal 0.0-0.7 [facility] Comment on above: Performed By: #### C BC #### [facility] [address] [address] [address] Sanjuana Kasper Eosinophils/100 WBC (Bld) 5.0 % Normal 0.9-7.0 [facility] Comment on above: Performed By: #### C BC #### [facility] [address] [address] [address] Sanjuana Kasper Erythrocyte distribution width (RBC) [Ratio] 13.5 % Normal 11.0-15.0 [facility] Comment on above: Performed By: #### C BC #### [facility] [address] [place] [address] Dr. Sanjuana Kasper Hematocrit (Bld) [Volume fraction] 41.9 % Critically low 42.0-54.0 [facility] Comment on above: Performed By: #### C BC #### [facility] [address] [address] [address] Sanjuana Kasper Hemoglobin (Bld) [Mass/Vol] 13.9 g/dL Critically low 14.0-18.0 [facility] Comment on above: Performed By: #### C BC #### [facility] [address] [address] [address] Sanjuana Kasper IG # 0.02 10e3/ul Normal 0.00-0.03 [facility] Comment on above: Performed By: #### C BC #### [facility] [address] [place] [address] Dr. Sanjuana Kasper IG % 0.3 % Normal 0.0-0.5 [facility] Comment on above: Performed By: #### C BC #### [facility] [address] [place] [address] Dr. Sanjuana Kasper LYMPH # 1.4 103/ul Normal 1.2-3.8 [facility] Comment on above: Performed By: #### C BC #### [facility] [address] [place] [address] Dr. Sanjuana Kasper Lymphocytes/100 WBC (Bld) 23.8 % Normal 20.5-60.0 [facility] Comment on above: Performed By: #### C BC #### [facility] [address] [place] [address] Dr. Sanjuana Kasper MANUAL DIFF REQ NO Normal [facility] Comment on above: Performed By: #### C BC #### [facility] [address] [place] [address] Dr. Sanjuana Kasper MCH (RBC) [Entitic mass] 29.5 pg Normal 25.9-34.0 [facility] Comment on above: Performed By: #### C BC #### [facility] [address] [place] [address] Dr. Snajuana Kasper MCHC (RBC) [Mass/Vol] 33.2 g/dL Normal 29.9-35.2 [facility] Comment on above: Performed By: #### C BC #### [facility] [address] [place] [address] Dr. Sanjuana Kasper MCV (RBC) [Entitic vol] 89.0 fL Normal 80.0-94.0 [facility] Comment on above: Performed By: #### C BC #### [facility] [address] [place] [address] Dr. Sanjuana Kasper MONO # 0.4 103/ul Normal 0.3-0.8 [facility] Comment on above: Performed By: #### C BC #### [facility] [address] [place] [address] Dr. Sanjuana Kasper Monocytes/100 WBC (Bld) 7.1 % Normal 1.7-12.0 [facility] Comment on above: Performed By: #### C BC #### [facility] [address] [place] [address] Dr. Sanjuana Kasper NEUT # 3.7 103/ul Normal 1.4-6.5 [facility] Comment on above: Performed By: #### C BC #### [facility] [address] [place] [address] Dr. Sanjuana Kasper Neutrophils/100 WBC (Bld) 62.9 % Normal 43.0-75.0 [facility] Comment on above: Performed By: #### C BC #### [facility] [address] [place] [address] Dr. Sanjuana Kasper Platelet mean volume (Bld) [Entitic vol] 10.6 fL Normal 9.5-13.5 [facility] Comment on above: Performed By: #### C BC #### [facility] [address] [place] [address] Dr. Sanjuana Kasper PLT 259 103/ul Normal 150-450 [facility] Comment on above: Performed By: #### C BC #### [facility] [address] [place] [address] Dr. Sanjuana Kasper RBC 4.71 106/ul Normal 4.70-6.10 [facility] Comment on above: Performed By: #### C BC #### [facility] [address] [place] [address] Dr. Sanjuana Kasper WBC 5.8 103/ul Normal 4.0-11.0 [facility] Comment on above: Performed By: #### C BC #### [facility] [address] [place] [address] Dr. Sanjuana Kasper GLYCOHEMOGLOBIN A1Con 2022 ADA RECOMMENDATION SEE BELOW Normal [facility] Comment on above: Result Comment: ADA RECOMMENDED LIMIT 4.0 - 6.0 ADA THERAPEUTIC TARGET < 7.0 ACTION SUGGESTED > 7.0 Performed By: #### A 1C #### [facility] [address] [address] [address] Sanjuana Kasper Glucose [Mass/Vol] 108 mg/dL Normal [facility] Comment on above: Performed By: #### A 1C #### [facility] [address] [address] [address] Sanjuana Kasper HbA1c (Bld) [Mass fraction] 5.4 % Normal 4.5-6.2 [facility] Comment on above: Performed By: #### A 1C #### [facility] [address] [place] [address] Dr. Sanjuana Kasper LIPID PROFILEon 03-06-2023 CHOL-HDL RATIO NORM SEE BELOW Normal [facility] Comment on above: Result Comment: 3.3 - 4.4 LOW RISK 4.4 - 7.1 AVERAGE RISK 7.1 - 11.0 MODERATE RISK >11.0 HIGH RISK Performed By: #### T SH, LIPID, BMP, LIVER #### [facility] [address] [place] [address] Dr. Sanjuana Kasper Cholesterol [Mass/Vol] 192 mg/dL Normal <=200 [facility] Comment on above: Performed By: #### T SH, LIPID, BMP, LIVER #### [facility] [address] [place] [address] Dr. Sanjuana Kasper Cholesterol in HDL [Mass/Vol] 61 mg/dL Critically high 40-60 [facility] Comment on above: Performed By: #### T SH, LIPID, BMP, LIVER #### [facility] [address] [place] [address] Dr. Sanjuana Kasper Cholesterol in LDL [Mass/Vol] 122.2 mg/dL Normal [facility] Comment on above: Performed By: #### T SH, LIPID, BMP, LIVER #### [facility] [address] [place] [address] Dr. Sanjuana Kasper Cholesterol.total/Chol esterol in HDL [Mass ratio] 3.1 {ratio} Normal [facility] Comment on above: Performed By: #### T SH, LIPID, BMP, LIVER #### [facility] [address] [place] [address] Dr. Sanjuana Kasper HDL NORMAL > or = 60 mg/dl - LO W CARDIOVASCULAR RISK <40 mg/dl - HIGH CARDIOVASCULAR RISK Normal [facility] Comment on above: Performed By: #### T SH, LIPID, BMP, LIVER #### [facility] [address] [address] [address] Sanjuana Kasper LDL CALC NORMAL SEE BELOW Normal [facility] Comment on above: Result Comment: <100 mg/dl OPTIMAL 100 - 129 mg/dl NEAR OR ABOVE OPTIMAL 130 - 159 mg/dl BORDERLINE HIGH 160 - 189 mg/dl HIGH >190 mg/dl VERY HIGH Performed By: #### T SH, LIPID, BMP, LIVER #### [facility] [address] [address] [address] Sanjuana Kasper Triglyceride [Mass/Vol] 44 mg/dL Normal <=150 [facility] Comment on above: Performed By: #### T SH, LIPID, BMP, LIVER #### [facility] [address] [address] [address] Sanjuana Kasper VLDL CALC 8.8 mg/dL Normal [facility] Comment on above: Performed By: #### T SH, LIPID, BMP, LIVER #### [facility] [address] [address] [address] Sanjuana Kasper LIVER PROFILEon 03-06-2023 Albumin [Mass/Vol] 3.6 g/dL Normal 3.4-5.0 [facility] Comment on above: Performed By: #### T SH, LIPID, BMP, LIVER ####[facility] [address] [address]Dr. Sanjuana Kasper Albumin/Globulin [Mass ratio] 1.0 {ratio} Normal [facility] Comment on above: Performed By: #### T SH, LIPID, BMP, LIVER ####[facility] [address] [id number]. Sanjuana Kasper ALP [Catalytic activity/Vol] 91 U/L Normal 46-116 [facility] Comment on above: Performed By: #### T SH, LIPID, BMP, LIVER ####[facility] [address] [address]Dr. Sanjuana Kasper ALT [Catalytic activity/Vol] 28 U/L Normal 16-63 [facility] Comment on above: Performed By: #### T SH, LIPID, BMP, LIVER ####[facility] [address] [address]Dr. Sanjuana Kasper AST [Catalytic activity/Vol] 16 U/L Normal 15-37 [facility] Comment on above: Performed By: #### T SH, LIPID, BMP, LIVER ####[facility] [address] [address]Dr. Sanjuana Kasper BILI, CONJUGATED 0.1 mg/dL Normal 0.0-0.2 [facility] Comment on above: Performed By: #### T SH, LIPID, BMP, LIVER ####[facility] [address] [address]Dr. Sanjuana Kasper Bilirubin [Mass/Vol] 0.4 mg/dL Normal 0.2-1.0 [facility] Comment on above: Performed By: #### T SH, LIPID, BMP, LIVER ####[facility] [address] [address]Dr. Sanjuana Kasper Globulin (S) [Mass/Vol] 3.6 g/dL Normal [facility] Comment on above: Performed By: #### T SH, LIPID, BMP, LIVER ####[facility] [address] [address]Dr. Sanjuana Kasper Protein [Mass/Vol] 7.2 g/dL Normal 6.4-8.2 [facility] Comment on above: Performed By: #### T SH, LIPID, BMP, LIVER ####[facility] [address] [address]Dr. Sanjuana Kasper PROF CHEM 8 (BAS METB)on Anion gap [Moles/Vol] 12.2 mmol/L Normal [facility] Comment on above: Performed By: #### T SH, LIPID, BMP, LIVER ####[facility] [address] [address]Dr. Sanjuana Kasper Calcium [Mass/Vol] 9.1 mg/dL Normal 8.5-10.1 [facility] Comment on above: Performed By: #### T SH, LIPID, BMP, LIVER ####[facility] [address] [address]Dr. Sanjuana Kasper Chloride [Moles/Vol] 106 mmol/L Normal 98-107 [facility] Comment on above: Performed By: #### T SH, LIPID, BMP, LIVER ####[facility] [address] [address]Dr. Sanjuana Kasper CO2 [Moles/Vol] 26.9 mmol/L Normal 21.0-32.0 [facility] Comment on above: Performed By: #### T SH, LIPID, BMP, LIVER ####[facility] [address] [address]Dr. Sanjuana Kasper Creatinine [Mass/Vol] 0.98 mg/dL Normal 0.70-1.30 [facility] Comment on above: Performed By: #### T SH, LIPID, BMP, LIVER ####[facility] [address] [address]Dr. Sanjuana Kasper EGFR-AF GUYANESE >60 Normal >=60 [facility] Comment on above: Performed By: #### T SH, LIPID, BMP, LIVER ####[facility] [address] [address]Dr. Sanjuana Kasper EGFR-NON AF GUYANESE >60 Normal >=60 [facility] Comment on above: Performed By: #### T SH, LIPID, BMP, LIVER ####[facility] [address] [address]Dr. Sanjuana Kasper Glucose [Mass/Vol] 94 mg/dL Normal 74-106 [facility] Comment on above: Performed By: #### T SH, LIPID, BMP, LIVER ####[facility] [address] [address]Dr. Sanjuana Kasper Potassium [Moles/Vol] 4.1 mmol/L Normal 3.5-5.1 [facility] Comment on above: Performed By: #### T SH, LIPID, BMP, LIVER ####[facility] [address] [place], [place] [address]Og. Sanjuana Kasper Sodium [Moles/Vol] 141 mmol/L Normal 136-145 [facility] Comment on above: Performed By: #### T SH, LIPID, BMP, LIVER ####[facility] [address] [place], [place] [address]Yn. Sanjuana Kasper Urea nitrogen [Mass/Vol] 17.0 mg/dL Normal 7.0-18.0 [facility] Comment on above: Performed By: #### T SH, LIPID, BMP, LIVER ####[facility] [address] [place], [place] [address]Ja. Sanjuana Kasper Urea nitrogen/Creatinine [Mass ratio] 17.3 mg/mg Normal [facility] Comment on above: Performed By: #### T SH, LIPID, BMP, LIVER ####[facility] [address] [place], [place] [address]Ug. Sanjuaan Kasper TSHon 03-06-2023 TSH 1.951 uIU/mL Normal 0.358-3.740 [facility] Comment on above: Performed By: #### T SH, LIPID, BMP, LIVER #### [facility] [address] [place], [place] [address] FOOT LT WO CONon 12-20-19 23 [...] RAZ MATOS Date: 2022-12-20 14:53 Normal [facility] POINT OF CARE GLUCOSEon 11-0 Glucose [Mass/Vol] 94 mg/dL Normal 74-106 [facility] Comment on above: Performed By: #### P OCGLUC #### [facility] [address] [place], [place] [address] Dr. Sanjuana Kasper XR FOOT LT 2Von [...] MARÍA BRYSON Date: 2022-09-27 18:28 Normal [facility] Covid-19 PCR (CVDTBH)on 08-26 SARS-CoV-2 (COVID-19) RNA DAISY+probe Ql (Unsp spec) Not detected Normal NOT DETECTED [facility] Comment on above: Result Comment: This test is not yet approved or cleared by the [place] FDA. When there are no FDA-approved or cleared tests available, and other criteria are met, FDA can make tests available under an emergency access mechanism called an Emergency Use Authorization (EUA). The EUA for this test is supported by the [place] of Health and Human Service's (HHS's) declaration [...] with SARS-CoV-2. Performed By: #### C VDTBH ####[facility] [address] [place], [place] [address]Dr. Sanjuana Kasper PROF CHEM 8 (BAS METB)on Anion gap [Moles/Vol] 11.6 mmol/L Normal [facility] Comment on above: Performed By: #### B MP ####[facility] [address] [address]Dr. Carlayazmin Ranjith Calcium [Mass/Vol] 8.6 mg/dL Normal 8.5-10.1 [facility] Comment on above: Performed By: #### B MP ####[facility] [address] [address]Dr. Sanjuana Kasper Chloride [Moles/Vol] 107 mmol/L Normal 98-107 [facility] Comment on above: Performed By: #### B MP ####[facility] [address] [place], [place] [address]Dr. Sanjuana Kasper CO2 [Moles/Vol] 26.2 mmol/L Normal 21.0-32.0 [facility] Comment on above: Performed By: #### B MP ####[facility] [address] [place], [place] [address]Dr. Sanjuana Kasper Creatinine [Mass/Vol] 1.28 mg/dL Normal 0.70-1.30 [facility] Comment on above: Performed By: #### B MP ####[facility] [address] [place], [place] [address]Dr. Sanjuana Kasper EGFR-AF GUYANESE >60 Normal >=60 [facility] Comment on above: Performed By: #### B MP ####[facility] [address] [place], [place] [address]Dr. Sanjuana Kasper EGFR-NON AF GUYANESE 56 mL/min/1.73m2 Critically low >=60 [facility] Comment on above: Performed By: #### B MP ####[facility] [address] [place], [place] [address]Dr. Sanjuana Kasper Glucose [Mass/Vol] 121 mg/dL Critically high 74-106 [facility] Comment on above: Performed By: #### B MP ####[facility] [address] [place], [place] [address]Dr. Sanjuana Kasper Potassium [Moles/Vol] 3.8 mmol/L Normal 3.5-5.1 [facility] Comment on above: Performed By: #### B MP ####[facility] [address] [place], [place] [address]Dr. Sanjuana Kasper Sodium [Moles/Vol] 141 mmol/L Normal 136-145 [facility] Comment on above: Performed By: #### B MP ####[facility] [address] [place], [place] [address]Dr. Sanjuana Kasper Urea nitrogen [Mass/Vol] 24.0 mg/dL Critically high 7.0-18.0 [facility] Comment on above: Performed By: #### B MP ####[facility] [address] [place], [place] [address]Dr. Sanjuana Kasper Urea nitrogen/Creatinine [Mass ratio] 18.8 mg/mg Normal [facility] Comment on above: Performed By: #### B MP ####[facility] [address] [place], [place] [address]Dr. Sanjuana Kasper PROTIMEon 09-21-2022 INR Coag (PPP) [Relative time] 1.05 {INR} Normal [facility] Comment on above: Performed By: #### P TT, PT ####[facility] [address] [place], [place] [address]Dr. Sanjuana Kasper INR GUIDELINES SEE BELOW Normal [place] Comment on above: Result Comment: VERONICA RED INR: 2.0 - 3.0 CONDITIONS NOT LISTED BELOW 2.5 - 3.5 FOR PROSTHETIC HEART VALVE REPLACEMENT 2.5 - 3.5 RECURRENT THROMBOSIS Performed By: #### P TT, PT ####[facility] [address] [place], [place] [address]Dr. Sanjuana Kasper PT Coag (PPP) [Time] 11.3 s Normal 9.0-11.6 [facility] Comment on above: Performed By: #### P TT, PT ####[facility] [address] [place], [place] [address]Dr. Sanjuana Kasper PTTon 09-21-2022 aPTT Coag (Bld) [Time] 30.0 s Normal 22.3-36.2 [facility] Comment on above: Performed By: #### P TT, PT ####[facility] [address] [place], [place] [address]MyYonatan Kasper XR FOOT MOISES MIN 3 VIEWSon [...] MARÍA BRYSON Date: 2022-08-01 17:51 Normal [facility] Covid-19 PCR (CVDTB)on 05-25 SARS-CoV-2 (COVID-19) RNA DAISY+probe Ql (Unsp spec) Not detected Normal NOT DETECTED [facility] Comment on above: Result Comment: This test is not yet approved or cleared by the [place] FDA. When there are no FDA-approved or cleared tests available, and other criteria are met, FDA can make tests available under an emergency access mechanism called an Emergency Use Authorization (EUA). The EUA for this test is supported by the [employer] of Health and Human Service's (HHS's) declaration [...] with SARS-CoV-2. Performed By: #### C VDTBH #### [facility] [address] [place] [address] Dr. Sanjuana Medina 04-20-2022 L -- ---- Specimen: [id number] Received: 04/20/22 Status: LENIN Gisell Num: [id number] Spec Type: Surgical Subm Dr: Miguel Astorga DO Tissues: A Debridement-Skin/Other Than Skin (SCALP) Procedures: HE Stain, Gross/Micro L3 ---- Patient Age/Sex Location Account Attending Physician ---- Oscar Manuel 72/M [place] [id number] Miguel Astorga DO ---- SPEC NUM: [id number] RECD: 04/20/22 STATUS: LENIN JAMESON NUM: [id number] DEMARCUS: 04/20/22- SUBM DR: Miguel Astorga DO ENTERED: 04/20/22 [facility] DR: SPEC TYPE: Surgical DEPT: S ORDERED: HE Stain, [...] thin rim of owusu unremarkable appearing skin. Hole Puncher Strap sections are submitted in one cassette labeled A1. Type of Fixative: 10% Neutral Buffered Formalin (NORM/ROHIT) Microscopic Description One glass slide with H E stained material has been examined. The microscopic findings support the above pathologic diagnosis. ---- Specimen: [id number] Received: 04/20/22 Status: LENIN Gisell Num: [id number] Spec Type: Surgical Subm Dr: Miguel Astorga DO Tissues: A Debridement-Skin/Other Than Skin (SCALP) Procedures: HE Stain, Gross/Micro L3 ---- Patient: Oscar Manuel [id number] (Continued) ---- Specimen: [id number] Received: 04/20/22 (Continued) Signed (signature on file) Favio Chong MD 04/24/222025 ---- Specimen: [id number] Received: 04/20/22 Status: LENIN Gisell Num: [id number] Spec Type: Surgical Subm Dr: Miguel Astorga DO Tissues: A Debridement-Skin/Other Than Skin (SCALP) Procedures: NATALIA Mcdonald, [place]/Micro L3 ---- Patient: Oscar Manuel [id number] (Continued) ---- Specimen: [id number] Received: 04/20/22 (Continued) CPT Codes 82385 ---- ---- Specimen: [id number] Received: 04/20/22 Status: LENIN Jameson Num: [id number] Spec Type: Surgical Subm Dr: Miguel Astorga DO Tissues: A Debridement-Skin/Other Than Skin (SCALP) Procedures: NATALIA Mcdonald, Gross/Micro L3 ---- Patient: Oscar Manuel [id number] (Continued) ---- Signed (signature on file) Favio Chong MD 04/24/222025 Normal [facility] Basic Metabolic Panelon 03-26 Calcium [Mass/Vol] 9.1 mg/dL Normal 8.2-10.2 [facility] Comment on above: Result Comment: PERF ORMED BY: [place] [id number] PATHOLOGIST [employer] INST[employer]ER ISABELLA MCKEON M.D. Performed By: #### B MP, CBC #### [facility] [address] Chloride [Moles/Vol] 103 mmol/L Normal 95-114 [facility] Comment on above: Performed By: #### B MP, CBC #### [address] CO2 [Moles/Vol] 25.0 mmol/L Normal 22.0-30.0 [facility] Comment on above: Performed By: #### B MP, CBC #### [address] Creatinine [Mass/Vol] 1.13 mg/dL Normal 0.64-1.27 [facility] Comment on above: Performed By: #### B MP, CBC #### [facility] [address] [place] [address] Estimated GFR ( Ariane > 60 [facility] Comment on above: Result Comment: GFR estimated reference range: According to KDOQI guidelines, <60 ml/min/1.73m2 is sufficient to diagnose a patient with chronic kidney disease. Performed By: #### B MP, CBC #### [facility] [address] [place] [address] [place] Estimated GFR (Non- Am > 60 [facility] Comment on above: Performed By: #### B MP, CBC #### [facility] [address] [place] [address] [place] Glucose [Mass/Vol] 102 mg/dL High 70-100 [facility] Comment on above: Result Comment: [place] Glucose Reference Range is dependent on time and content of last meal. Glucose of more than 200 mg/dL in a nonstressed, ambulatory subject supports the diagnosis of Diabetes Mellitus. ADA recommended reference range Performed By: #### B MP, CBC #### [facility] [address] Potassium [Moles/Vol] 4.2 mmol/L Normal 3.5-5.1 [facility] Comment on above: Performed By: #### B MP, CBC #### [facility] [address] Sodium [Moles/Vol] 137 mmol/L Normal 136-146 [facility] Comment on above: Performed By: #### B MP, CBC #### [facility] [address] Urea nitrogen [Mass/Vol] 18 mg/dL Normal 9-23 [facility] Comment on above: Performed By: #### B MP, CBC #### [facility] [address] Basophils Auto (Bld) [#/Vol] Ordered By: Miguel Astorga on 04-19-2022 Basophils (Bld) [#/Vol] 0.1 10*3/uL 0.0-0.2 [facility] Basophils/100 WBC Auto (Bld) Ordered By: Miguel Astorga on 04-19-2022 Basophils/100 WBC (Bld) 0.9 % [facility] Blood hemoglobin measurement (mass/volume)Ordered By: Miguel Astorga on 04-19-2022 Hemoglobin (Bld) [Mass/Vol] 14.3 g/dL 13.0-17.0 [facility] Blood leukocytes automated c ount (number/volume)Ordered By: Miguel Astorga on 04-19-2022 WBC (Bld) [#/Vol] 5.5 10*3/uL 4.5-11.0 [facility] COVID-19 FRMCon 04-19-2022 SARS-CoV-2 (COVID-19) RNA DAISY+probe Ql (Unsp spec) Negative Normal Negative [facility] Comment on above: Order Comment: Comme nt For surgery tomorrow Healthcare Worker?: N Result Comment: Testing for SARS-CoV-2 by RT-PCR This test was developed and its performance characteristics determined by [employer] ([place]) and validated at the [facility]. This test has not been FDA cleared [...] is terminated or revoked sooner. PERFORMED BY: [place] [id number] PATHOLOGIST [employer]FFLE INSTALLER ISABELLA MCKEON M.D. Performed By: #### C OVID 19 [facility] #### [address] COVID-19 Positive/NegativeOr dered By: Miguel Astorga on 04-19-2022 SARS-CoV-2 (COVID-19) N gene DAISY+probe Ql (Resp) Negative Negative [facility] Comment on above: Testing for SARS-CoV -2 by RT-PCR This test was developed and its performance characteristics determined by [employer] ([place]) and validated at the [facility]. This test has not been FDA cleared [...] Basophils (Bld) [#/Vol] 0.1 10*3/uL Normal 0.0-0.2 [facility] Comment on above: Result Comment: PERF ORMED BY: [place] [id number] PATHOLOGIST [employer]FFLE INSTALLER ISABELLA MCKEON M.D. Performed By: #### B MP, CBC #### [address] Basophils/100 WBC (Bld) 0.9 % Normal . [facility] Comment on above: Performed By: #### B MP, CBC #### [address] Eosinophils (Bld) [#/Vol] 0.2 10*3/uL Normal 0.0-0.45 [facility] Comment on above: Performed By: #### B MP, CBC #### [address] Eosinophils/100 WBC (Bld) 3.9 % Normal . [facility] Comment on above: Performed By: #### B MP, CBC #### [address] Erythrocyte distribution width (RBC) [Ratio] 14.1 % Normal 12.0-14.8 [facility] Comment on above: Performed By: #### B MP, CBC #### [address] Hematocrit (Bld) [Volume fraction] 43.0 % Normal 38.8-50.0 [facility] Comment on above: Performed By: #### B MP, CBC #### [address] Hemoglobin (Bld) [Mass/Vol] 14.3 g/dL Normal 13.0-17.0 [facility] Comment on above: Performed By: #### B MP, CBC #### [facility] [address] Lymphocytes (Bld) [#/Vol] 1.4 10*3/uL Normal 1.00-4.8 [facility] Comment on above: Performed By: #### B MP, CBC #### [facility] [address] Lymphocytes/100 WBC (Bld) 25.7 % Normal . [facility] Comment on above: Performed By: #### B MP, CBC #### [facility] [address] MCH (RBC) [Entitic mass] 29.9 pg Normal 27.5-35.2 [facility] Comment on above: Performed By: #### B MP, CBC #### [facility] [address] MCV (RBC) [Entitic vol] 89.8 fL Normal 83.5-101 [facility] Comment on above: Performed By: #### B MP, CBC #### [facility] [address] Mean Corpuscular HGB Conc 33.3 g/dL Normal 32.5-35.6 [facility] Comment on above: Performed By: #### B MP, CBC #### [facility] [address] [place] [address] [place] Monocytes (Bld) [#/Vol] 0.4 10*3/uL Normal 0.0-0.8 [facility] Comment on above: Performed By: #### B MP, CBC #### [facility] [address] [place] [address] [place] Monocytes/100 WBC (Bld) 6.9 % Normal . [facility] Comment on above: Performed By: #### B MP, CBC #### [facility] [address] Neutrophils (Bld) [#/Vol] 3.5 10*3/uL Normal 1.8-7.7 [facility] Comment on above: Performed By: #### B MP, CBC #### [facility] [address] [place] [address] [place] Neutrophils/100 WBC (Bld) 62.6 % Normal . [facility] Comment on above: Performed By: #### B MP, CBC #### [facility] [address] [place] [address] [place] Nucleated RBC/100 WBC (Bld) [Ratio] 0.1 % Normal 0-0.5 [facility] Comment on above: Performed By: #### B MP, CBC #### [facility] [address] Platelet mean volume (Bld) [Entitic vol] 8.9 fL Normal 6.6-10.1 [facility] Comment on above: Performed By: #### B MP, CBC #### [facility] [address] [place] [address] [place] Platelets (Bld) [#/Vol] 260 10*3/uL Normal 150-450 [facility] Comment on above: Performed By: #### B MP, CBC #### [facility] [address] [place] [address] [place] RBC (Bld) [#/Vol] 4.79 10*6/uL Normal 3.90-5.60 [facility] Comment on above: Performed By: #### B MP, CBC #### [facility] [address] [place] [address] [place] WBC (Bld) [#/Vol] 5.5 10*3/uL Normal 4.5-11.0 [facility] Comment on above: Performed By: #### B MP, CBC #### [facility] [address] [place] [address] [place] Creatinine and Glomerular fi ltration rate.predicted panel (S/P/Bld)Ordered By: Miguel Astorga on 04-19-2022 Creatinine [Mass/Vol] 1.13 mg/dL 0.64-1.27 [facility] ECG 12 lead ECGon 04-19-2022 ECG 12 lead ECG [facility] [address] Electrocardiograph Report Signed Patient: Oscar Manuel MR#: [id number] : 1950 Acct:[id number] Age/Sex: 72 / M ADM Date: 04/19/22 Loc: PS Room: Type: [facility] Attending Dr: Miguel Astorga DO [...] ECGs available Confirmed by SUZIE MCLEAN MD ([facility]) on 04/20/2022 3:16:43 PM Referred By: TAVARES ASTORGA Electronically Signed By:SUZIE MCLEAN MD Transcribed By: MUS Signed By Suzie Mclean MD 0 04/20/22 1516 Normal [facility] Eosinophils Auto (Bld) [#/Vo l]Ordered By: Miguel Astorga on 04-19-2022 Eosinophils (Bld) [#/Vol] 0.2 10*3/uL 0.0-0.45 [facility] Eosinophils/100 WBC Auto (Bl d)Ordered By: Miguel Astorga on 04-19-2022 Eosinophils/100 WBC (Bld) 3.9 % [facility] Erythrocyte distribution wid th Auto (RBC) [Ratio]Ordered By: Miguel Astorga on 04-19-2022 Erythrocyte distribution width (RBC) [Ratio] 14.1 % 12.0-14.8 [facility] Estimated glomerular filtrat ion rate (GFR) non- AmericanOrdered By: Miguel Astorga on 04-19-2022 GFR/1.73 sq M.predicted among non-blacks MDRD (S/P/Bld) [Vol rate/Area] > 60 mL/Min [facility] Hematocrit Auto (Bld) [Volum e fraction]Ordered By: Miguel Astorga on 04-19-2022 Hematocrit (Bld) [Volume fraction] 43.0 % 38.8-50.0 [facility] Laboratory - Hematology and Cell countsOrdered By: Miguel Astorga on 04-19-2022 Nucleated RBC/100 WBC (Bld) [Ratio] 0.1 % 0-0.5 [facility] Lymphocytes Auto (Bld) [#/Vo l]Ordered By: Miguel Astorga on 04-19-2022 Lymphocytes (Bld) [#/Vol] 1.4 10*3/uL 1.00-4.8 [facility] Lymphocytes/100 WBC Auto (Bl d)Ordered By: Miguel Astorga on 04-19-2022 Lymphocytes/100 WBC (Bld) 25.7 % [facility] MCH Auto (RBC) [Entitic mass ]Ordered By: Miguel Astorga on 04-19-2022 MCH (RBC) [Entitic mass] 29.9 pg 27.5-35.2 [facility] MCHC Auto (RBC) [Mass/Vol]Or dered By: Miguel Astorga on 04-19-2022 MCHC (RBC) [Mass/Vol] 33.3 g/dL 32.5-35.6 [facility] MCV Auto (RBC) [Entitic vol] Ordered By: Miguel Astorga on 04-19-2022 MCV (RBC) [Entitic vol] 89.8 fL 83.5-101 [facility] Monocytes Auto (Bld) [#/Vol] Ordered By: Miguel Astorga on 04-19-2022 Monocytes (Bld) [#/Vol] 0.4 10*3/uL 0.0-0.8 [facility] Monocytes/100 WBC Auto (Bld) Ordered By: Miguel Astorga on 04-19-2022 Monocytes/100 WBC (Bld) 6.9 % [facility] Neutrophils Auto (Bld) [#/Vo l]Ordered By: Miguel Astorga on 04-19-2022 Neutrophils (Bld) [#/Vol] 3.5 10*3/uL 1.8-7.7 [facility] Neutrophils/100 WBC Auto (Bl d)Ordered By: Miguel Astorga on 04-19-2022 Neutrophils/100 WBC (Bld) 62.6 % [facility] No Panel InformationOrdered By: Miguel Astorga on 04-19-2022 Estimated GFR () > 60 mL/Min [facility] Comment on above: GFR estimated refere nce range: According to KDOQI guidelines, <60 ml/min/1.73m2 is sufficient to diagnose a patient with chronic kidney disease. Pharmacy Creatinine Clearance (Chem N/A [facility] Platelet mean volume Auto (B ld) [Entitic vol]Ordered By: Miguel Astorga on 04-19-2022 Platelet mean volume (Bld) [Entitic vol] 8.9 fL 6.6-10.1 [facility] Platelets Auto (Bld) [#/Vol] Ordered By: Miguel Astorga on 04-19-2022 Platelets (Bld) [#/Vol] 260 10*3/uL 150-450 [facility] RBC Auto (Bld) [#/Vol]Ordere d By: Miguel Astorga on 04-19-2022 RBC (Bld) [#/Vol] 4.79 10*6/uL 3.90-5.60 [facility] Serum or plasma calcium dieter urement (mass/volume)Ordered By: Miguel Astorga on 04-19-2022 Calcium [Mass/Vol] 9.1 mg/dL 8.2-10.2 [facility] Serum or plasma chloride shashank surement (moles/volume)Ordered By: Miguel Astorga on 04-19-2022 Chloride [Moles/Vol] 103 mmol/L 95-114 [facility] Serum or plasma glucose dieter urement (mass/volume)Ordered By: Miguel Astorga on 04-19-2022 Glucose [Mass/Vol] 102 mg/dL 70-100 [facility] Comment on above: ADA recommended refe rence range Random Glucose Reference Range is dependent on time and content of last meal. Glucose of more than 200 mg/dL in a nonstressed, ambulatory subject supports the diagnosis of Diabetes Mellitus. Serum or plasma potassium me asurement (moles/volume)Ordered By: Miguel Astorga on 04-19-2022 Potassium [Moles/Vol] 4.2 mmol/L 3.5-5.1 [facility] Serum or plasma sodium measu rement (moles/volume)Ordered By: Miguel Astorga on 04-19-2022 Sodium [Moles/Vol] 137 mmol/L 136-146 [facility] Serum or plasma total carbon dioxide measurement (moles/volume)Ordered By: Miguel Astorga on 04-19-2022 CO2 [Moles/Vol] 25.0 mmol/L 22.0-30.0 [facility] Serum or plasma urea nitroge n measurement (mass/volume)Ordered By: iMguel Astorga on 04-19-2022 Urea nitrogen [Mass/Vol] 18 mg/dL 9- [facility] Social History Date Type Detail Facility Start: 05-07-2022 End: 06-24-2023 Tobacco smoking status Never smoked tobacco (finding) [facility] Work Phone: Start: 1950 Sex Assigned At Male [facility] Sex Assigned At Male [facility] Tobacco smoking status Never [facility] Vital Signs Date Time Vital Sign Value Performing Clinician Christopher salamanca 06-24-2023 15:47-0400 Blood Pressure Location Natali SOLARES [facility] 06-24-2023 15:47-0400 Diastolic blood pressure 80 mm[Hg] Natali SOLARES [facility] 06-24-2023 15:47-0400 Heart rate 68 /min Natali SOLARES [facility] 06-24-2023 15:47-0400 Respiratory rate 16 /min Natali SOLARES [facility] 06-24-2023 15:47-0400 Systolic blood pressure 130 mm[Hg] Natali SOLARES [facility] 05-07-2022 14:57-0400 Blood Pressure Location Natali SOLARES [facility] 05-07-2022 14:57-0400 Diastolic blood pressure 81 mm[Hg] Natali SOLARES [facility] 05-07-2022 14:57-0400 Heart rate 72 /min Natalitasha SOLARES [facility] 05-07-2022 14:57-0400 Respiratory rate 16 /min Natali SOLARES [facility] 05-07-2022 14:57-0400 Systolic blood pressure 149 mm[Hg] Natali SOLARES [facility] 04-20-2022 15:00-0400 Diastolic blood pressure 58 mm[Hg] DO Miguel Murcek Work Phone: [facility] 04-20-2022 15:00-0400 Heart rate 72 /min DO Miguel Murcek Work Phone: [facility] 04-20-2022 15:00-0400 Respiratory rate 16 /min DO Miguel Murcek Work Phone: [facility] 04-20-2022 15:00-0400 SaO2% (BldA) [Mass fraction] 95 % DO Miguel Murcek Work Phone: [facility] 05-27-2022 15:00-0400 Systolic blood pressure 118 mm[Hg] DO Miguel Astorga Work Phone: [facility] 04-20-2022 13:09-0400 Body temperature 97.5 [degF] DO Miguel Astorga Work Phone: [facility] 04-20-2022 13:09-0400 Inhaled oxygen flow rate 6 L/min DO Miguel Astorga Work Phone: [facility] 04-20-2022 12:40-0400 Body height 187.96 cm DO Miguel Astorga Work Phone: [facility] 04-20-2022 12:40-0400 Body mass index (BMI) [Ratio] 30.9 kg/m2 DO Miguel Astorga Work Phone: [facility] 04-20-2022 12:40-0400 Body weight 109.4 kg DO Miguel Astorga Work Phone: [facility] Functional Status Date Assessment Result Facility 06-24-2023 Functional Status N/A [facility] 05-07-2022 Functional Status N/A [facility] Clinical Notes 05-07-2022 to 03-17-2024 Note Date & Type Note Facility 03-17-2024 Note Patient here for fol low up EP study and ablation. He went into afib during procedure and was started on Xarelto. Denies chest pain, SOB, lightheadedness, and bleeding on Xarelto. Says his palpitations have subsided. Review of Systems Musculoskeletal: Positive for arthritis and joint pain. All other systems reviewed and are negative. [facility] 03-17-2024 Note Cardiovascular Medic ine [facility] SUBJECTIVE Chief Complaint Patient presents with Atrial Fibrillation Oscar Manuel is a 74 y.o. male here for follow-up after his recent EP study/ablation. HPI PMHx: AVNRT s/p ablation, a.fib s/p cardioversion 02/12/24, CHERI Patient here for follow up EP study and ablation. He went into afib during procedure and was started on Xarelto. Denies chest pain, SOB, lightheadedness, and bleeding on Xarelto. Says his palpitations have subsided. He has been doing well since his procedure. He inquired about how long he would need to continue anticoagulation. He notes he had an episode of global amnesia driving back from [place] in early January, - this was prior to his ablation. He was evaluated and was told no cause was found. Advised we continue Eliquis. Patient Active Problem List Diagnosis Paroxysmal atrial fibrillation (CMS/HCC) BPH (benign prostatic hyperplasia) 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 Family history of malignant neoplasm of kidney History of anticoagulant therapy Lumbosacral spondylosis without myelopathy Pain in testicle Restless leg syndrome Sleep apnea Varicocele Epididymitis Ischial bursitis of left side Primary osteoarthritis of left hip SVT (supraventricular tachycardia) (CMS/HCC) Past Medical History: Diagnosis Date Abnormal ECG Arrhythmia Atrial fibrillation (CMS/HCC) Right bundle branch block Sleep apnea Family History Problem Relation Name Age of Onset Other (maligant neoplastic disease) Mother Coronary artery disease Mother Other (malignant neoplastic disease) Father Social History Tobacco Use Smoking status: Never Smokeless tobacco: Never Substance Use Topics Alcohol use: Yes Comment: occasional No Known Allergies ROS Musculoskeletal: Positive for arthritis and joint pain. All other systems reviewed and are negative. OBJECTIVE Visit Vitals BP 126/74 (BP Location: Right arm, Patient Position: Sitting) Pulse 62 Ht 1.88 m (6' 2 ) Wt 112 kg (247 lb) SpO2 93% BMI 31.71 kg/m??? Smoking Status Never BSA 2.42 m??? Medications: Current Outpatient Medications: cholecalciferol (Vitamin D-3) 125 MCG (5000 UT) capsule, Take 125 mcg by mouth in the morning., Disp: , Rfl: dilTIAZem XR (Dilacor XR) 180 mg 24 hr capsule, TAKE 1 CAPSULE DAILY, Disp: 90 capsule, Rfl: 3 doxepin (SINEquan) 50 mg capsule, doxepin 50 mg capsule, Disp: , Rfl: famotidine (Pepcid) 20 mg tablet, Take 20 mg by mouth twice a day., Disp: , Rfl: ferrous sulfate 325 (65 Fe) MG tablet, Take 325 mg by mouth in the morning., Disp: , Rfl: finasteride (Proscar) 5 mg tablet, finasteride 5 mg tablet, Disp: , Rfl: rOPINIRole (Requip) 2 mg tablet, ropinirole 2 mg tablet, Disp: , Rfl: tadalafil (Cialis) 20 mg tablet, Take 20 mg by mouth., Disp: , Rfl: tamsulosin (Flomax) 0.4 mg 24 hr capsule, tamsulosin 0.4 mg capsule, Disp: , Rfl: rivaroxaban (Xarelto) 20 mg tablet, Take 1 tablet (20 mg) by mouth daily with evening meal. Take with food., Disp: 90 tablet, Rfl: 3 Physical Exam Constitutional: Appearance: Normal appearance. He is normal weight. HENT: Head: Normocephalic and atraumatic. Right Ear: External ear normal. Left Ear: External ear normal. Eyes: Extraocular Movements: Extraocular movements intact. Pupils: Pupils are equal, round, and reactive to light. Neck: Vascular: No carotid bruit. Cardiovascular: Rate and Rhythm: Normal rate and regular rhythm. Pulses: Normal pulses. Heart sounds: Normal heart sounds. Pulmonary: Effort: Pulmonary effort is normal. Breath sounds: Normal breath sounds. Abdominal: General: Bowel sounds are normal. Palpations: Abdomen is soft. Musculoskeletal: General: Normal range of motion. Cervical back: Neck supple. Right lower leg: No edema. Left lower leg: No edema. Skin: General: Skin is warm and dry. Neurological: General: No focal deficit present. Mental Status: He is alert and oriented to person, place, and time. Psychiatric: Mood and Affect: Mood normal. Behavior: Behavior normal. Thought Content: Thought content normal. Judgment: Judgment normal. Labs: Admission on 02/12/2024, Discharged on 02/12/2024 Component Date Value Ref Range Status Ventricular Rate 02/12/2024 61 BPM Final Atrial Rate 02/12/2024 61 BPM Final [place] Interval 02/12/2024 184 ms Final QRS DURATION 02/12/2024 102 ms Final QT Interval 02/12/2024 424 ms Final QTC CALCULATION(BAZETT) 02/12/2024 426 ms Final P [place] 02/12/2024 39 degrees Final R-Irvine 02/12/2024 -11 degrees Final T Wave [place] 02/12/2024 44 degrees Final Ventricular Rate 02/12/2024 55 BPM Final Atrial Rate 02/12/2024 55 BPM Final [place] Interval 02/12/2024 198 ms Final QRS DURATION 02/12/2024 104 ms Final QT Interval 02/12/2024 470 ms Final QTC CALCULATION(BAZETT) 02/12/2024 449 ms Final P [place] 02/12/2024 34 degrees Final R-Irvine (more content not included)... [facility] 02-12-2024 Note EP STUDY AND AVNRT A BLATION PROCEDURE NOTE DATE OF PROCEDURE: 02/12/2024 PERFORMING PHYSICIAN: Dr. Tiago Wilburn INDICATIONS FOR PROCEDURE: 1. SVT CONSENT: Patient LOCATION: EP Lab PROCEDURAL SEDATION: Versed and Fentanyl. Moderate sedation was administered by the sedation nurse under my supervision and noted in the anesthesia log. Intraprocedural face to face sedation time 112min. Monitoring: Cardiac telemetry, Blood pressure, continuous pulse oxymetry. FLUROSCOPY: 3.7min/ 65mGy EBL: 15cc SPECIMEN REMOVED: None PREPARATION: Preoperative antibiotics IV Ancef was administered. PROCEDURES PERFORMED: 1. Ultrasound guided vascular access for venous sheaths as documented below in procedure note. 2. Comprehensive EP study and catheter ablation for AVNRT. This includes right atrial recording and pacing, His bundle recording and right and left ventricular recording and pacing. 3. EP 3D mapping. 4. Coronary sinus recording and pacing to induce arrhythmia. 5. Induction of arrythmia with Isuprel and verification of ablation results. 6. CTI flutter ablation PROCEDURE NOTE: 88 y.o. year old with past medical history of LOOP that revealed multiple episodes of SVT. He has since come for an EP study and ablation. The risks, benefits and alternatives of the procedure were discussed with the patient and family who agreed to proceed. Please refer to my consult note for details of the discussion and of indications. Patient was brought to the EP lab in the post absorptive state. A procedural pause was performed verifying the patient, the procedure. The right and left groins were prepped and draped in the usual sterile fashion. Preoperative antibiotics IV Ancef was administered. Ultrasound was used to image the right and left femoral veins and it was noted to be patent and this was used for vessel entry as noted below. After infiltration with 1% lidocaine, 4 venous sheaths were placed in the right. 6000U Heparin bolus was given and bolus given subsequently to target ACT above 250. Details of catheters placed as follows. RFV: 6Fx2 CRD2 to His, Quad to RV, 8Fx 2 EZ steer to CS, Vizigo for Thermocool irrigated catheter. Once catheters were in position in RV, RA, CS, we decided to proceed with EP study. At baseline, AH and HV was 101ms and 41ms respectively. VEST was performed and VA conduction was noted with easily induced SVT with VEST. The tachycardia CL was 420ms with VA interval of 85ms. No evidence of retrograde accessory pathway confirmed with presence of retrograde RBBB. AEST was performed from proximal CS. AEST was performed from HRA as well as coronary sinus. AH jump was seen but no SVT induced. Isuprel was started at 5mcg/min and repeat EP study induced SVT with VA timing of 65ms. Ventricular overdrive pacing revealed a VAHV response. So at this time, I decided to pursue with ablation of slow pathway considering the diagnosis of an narrow complex tachycardia and presence of dual AV node physiology. Thermocool irrigated catheter was advanced over Vizigo sheath to target the inferior extension of the slow pathway. However patient would easily go into Afib which would organize into atrial flutter. Given this was sustained, I decided to perform CTI ablation. Catheter was placed on CTI and ablation performed from TV to the IVC aspect. Power was titrated to 40W with irrigation. During ablation, the tachycardia broke into sinus. I then noted that patient went repeatedly into Afib which would not terminate. DCCV was performed to sinus. However he would go into Afib easily. Ibutilide was given 1gm over 10min and 1mg Mg and Kcl 20Meq was given over 15-30min. I then proceeded to perform ablation of the slow pathway potential. Linear ablation was performed with 30W from TV aspect to close to CS os. DCCV was then performed and patient converted to SR. CS pacing revealed CTI block with timing of 164ms. I then decided to perform EP study and no AH jump was noted. I performed insurance lesions with presence of junctionals and sinus taking over. Repeat EP study showed no AH jump or tachycardia was noted and AERP was seen at 600/280ms. Isuprel was not restarted due to him going into Afib. EP study was performed during washout also and no tachycardia was seen. At this point, I believed we achieved the end point of successfully ablating the slow pathway. Post ablation intervals was normal. At this time, catheters were removed. Sheaths were removed and hemostasis was achieved when ACT was less than 180s after Protamine was given following a test dose. AHms 70, 65 (post) HVms 55, (post) VERPms 600/260, VA condunction+ AV Wenkebach ms 330ms AH jump ms 600/440 AVNERP ms AERP ms 600/280 POSTOPERATIVE DIAGNOSIS: 1. Status post successful ablation of slow-fast AVNRT. 2. No evidence of retrograde accessory pathway. 3. Atrial fibrillation organized into atrial flutter 4. S/p CTI flutter wit (more content not included)... 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 Use of blood products discussed with patient who. Additional Equipment Requests [facility] 12-03-2023 Note Patient here for 4 m [...] All other systems reviewed and are negative. [place] Electrophysiology Consult Note Reason for visit: Dizziness/SVT [...] years ago here he was admitted to [facility] with A. fib with rapid ventricular [...] 48 hours from 12/24/2021 to 12/10/2021 at [facility] was reviewed by me and shows PVC burden of less than 1% and PVC count of 6%. Occasional nonsustained atrial tachycardia few beats seen but no atrial fibrillation noted. No ventricular tachycardia noted EKG 10/17/2021 shows sinus rhythm with normal intervals Echocardiogram done at [facility] on 09/06/2021 shows ejection fraction of 60% [...] PARTIAL HIP ART (more content not included)... [facility] 07-30-2023 Note Patient here for 6 m o follow up PAF and dizziness. He had labs, ECG, carotid US, and echo in February 2023. Says dizziness has subsided. He denies chest pain, SOB, and palpitations. Doing very well from cardiac standpoint. Review of Systems Cardiovascular: Positive for leg swelling. Musculoskeletal: Positive for arthritis. All other systems reviewed and are negative. [facility] 07-30-2023 Note [place] Electrophysiology Consult Note [...] years ago here he was admitted to [facility] with A. fib with rapid ventricular [...] 48 hours from 12/24/2021 to 12/10/2021 at [facility] was reviewed by me and shows PVC burden of less than 1% and PVC count of 6%. Occasional nonsustained atrial tachycardia few beats seen but no atrial fibrillation noted. No ventricular tachycardia noted EKG 10/17/2021 shows sinus rhythm with normal intervals Echocardiogram done at [facility] on 09/06/2021 shows ejection fraction of 60% [...] kg (246 l (more content not included)... [facility] 06-24-2023 Hospital Discharge instructions Patient Education [...] urethra. Follow these instructions at home: Take [id number]-cvfvprb and prescription medicines only as told by [...] provider. Document Revised: 05/30/2022 Document Reviewed: 05/30/2022 [employer] Patient Education 2022 eMagin. Follow Up Care 05/07/2022 15:53:47 With:ESEQUIEL RUSSELL, Natali Gonzalez, URL Address: [facility] [address], [place] [address]- [phone] When: Unknown Comments:1 yr w/ PSA [facility] 12-18-2022 Note PROCEDURE: XR FOOT L [...] authenticated by: MARÍA BRYSON Date: 2022-12-18 09:32 [facility] 11-06-2022 Note PROCEDURE: XR FOOT L [...] authenticated by: RAZ MATOS Date: 2022-11-06 15:27 [facility] 10-17-2022 Note PROCEDURE: XR FOOT L [...] authenticated by: RAZ MATOS Date: 2022-10-17 10:46 [facility] 09-27-2022 Note PROCEDURE: XR FOOT L [...] authenticated by: MARÍA BRYSON Date: 2022-09-27 18:29 [facility] 05-15-2022 Note PROCEDURE: XR FOOT R [...] authenticated by: MARÍA BRYSON Date: 2022-05-15 21:39 [facility] 05-07-2022 Hospital Discharge instructions Patient Education [...] 11/11/2006 Document Revised: 07/31/2019 Document Reviewed: 10/11/2017 [employer] Patient Education 2020 eMagin. 05/07/2022 15:46:01 Benign Prostatic Hyperplasia Benign Prostatic [...] urethra. Follow these instructions at home: Take rxhr-hps-lyxicnv and prescription medicines only as told by [...] 11/11/2006 Document Revised: 10/06/2019 Document Reviewed: 12/16/2017 [employer] Patient Education 2020 [employer]Magin. Follow Up Care 09/04/2021 16:41:31 With:Natali SOALRES MD, URL Address: [facility] [address], [place] [address]- [phone] When:Within 1 Year(s) Comments:f/u in 1 year with PSA and [facility] Evaluation + Plan note Future Appointments Appointment Date:05/13/2023 03:00:00 PM Scheduled Provider:Natali SOLARES MD Location:[facility] Appointment Type:URO Office Visit Diagnostic Tests PendingPSA Total 05/07/22 [facility] Evaluation + Plan note Future Appointments Appointment Date:06/29/2024 03:00:00 PM Scheduled Provider:Natali SOLARES MD Location:[facility] Appointment Type:URO Office Visit Diagnostic Tests PendingPSA Total 06/24/23 [facility] Evaluation note No assessment inform ation available [facility] Work Phone: Hospital course Narrative No data available for this section [facility] Progress note No data available for this section [facility] Chief Complaint and Reason for Visit [...] Team Status: Inactive Member Role Status Dates Sakina Rivas MD Attending Provider Active Goals (unrecognized section and content) Goals may be documented in a n alternate section (unrecognized sect ion and content) No Status Records FoundNo Status Records FoundNo Status Records FoundNo Status Records FoundNo Status Records Found INFORMATION SOURCE (unrecogn ized section and content) DATE CREATED AUTHOR 03/24/2023 [facility] DATE CREATED AUTHOR AUTHOR'S ORGANIZ ATION 04/10/2023 [facility] DATE CREATED AUTHOR AUTHOR'S ORGANIZ ATION 03/25/2024 [facility] DATE CREATED AUTHOR AUTHOR'S ORGANIZ ATION 03/30/2024 [facility] DATE CREATED AUTHOR AUTHOR'S ORGANIZ ATION 04/05/2024 [facility] EPIC FOR RECORDS PERTAINING TO [...] BE BASED ON THE PRIMARY CLINICAL RECORDS. [employer] provides no warranty or guarantee of the accuracy or completeness of information in this document.
== END 2024-05-06 13:53 | disposition home or self-care (01) ==
LOC: EC 13:52
PROVIDERS: PCP Family Medicine; Visit Provider Podiatrist Foot & Ankle Surgery
DX: M20.22 Hallux rigidus, left foot (principal); Z98.890 Other specified postprocedural states
CPT/HCPCS: 73630

== ENCOUNTER 2024-12-18 12:50 | Outpatient (OUT) | payer MEDICARE, SELFPAY ==
--- NOTE | 2024-12-18 13:00 | MR_ITS ---
[address] [address] Patient Name: KAVITA AUSTIN MRN: [facility]:[id number] date: 1950 Sex: M Assigned Patient Location: MRI Current Patient Location: MRI Accession/Order Number: [id number] Exam Date: 12/18/2024 13:05 Report Date: 12/18/2024 17:01 At the request of: ANDREW Peterson APLALAN Procedure: MR knee LT wo con EXAM: MR knee LT wo con HISTORY: Internal Derangement Left Knee COMPARISON: None. TECHNIQUE: MRI images obtained with multiple sequences. MRI of the left knee without contrast. Sequences obtained by standard department protocol. FINDINGS: Anterior cruciate and posterior cruciate ligaments are intact. Medial collateral ligament and lateral supporting structures are intact. Medial meniscus is intact. Full-thickness chondral loss of the medial femoral condyle measuring 1.4 x 1.7 cm (8001/16). Complex tearing of the lateral meniscal body (8001/18). Lateral compartment articular cartilage is preserved. High-grade chondral loss of the patellar articular cartilage. Trochlear articular cartilage is preserved. Extensor mechanism is intact. Moderate popliteal cyst. Prepatellar subcutaneous soft tissue edema. No acute fractures. MR/MR knee LT wo con IMPRESSION: 1. Complex tearing of the lateral meniscal body (8001/18). 2. Full-thickness chondral loss of the medial femoral condyle measuring 1.4 x 1.7 cm (8001/16). 3. High-grade chondral loss of the patellar articular cartilage 4. Prepatellar subcutaneous soft tissue edema. 5. No acute fractures. Electronically authenticated by: AMBAR JACKSON Date: 12/18/2024 17:01
== END 2024-12-18 12:51 | disposition home or self-care (01) ==
LOC: MRI 12:50
PROVIDERS: PCP Family Medicine; Visit Provider Nurse Practitioner Family
DX: M23.92 Unspecified internal derangement of left knee (principal); S83.272A Complex tear of lateral meniscus, current injury, left knee, initial encounter; M25.462 Effusion, left knee
CPT/HCPCS: 73721

== ENCOUNTER 2025-03-08 17:59 | Emergency (ER) | payer MEDICARE, SELFPAY ==
[2025-03-08 18:09] VITALS: BP 139/74; PULSE 71; TEMP 36.9; O2SAT 96; BMI 30.3
--- NOTE | 2025-03-08 18:26 | PC.NURSE ---
Patient has laceration to left index finger while cutting vegetables pressure applied and patient arrived with home bandage saturated but bleeding now decreased. rn soaked finger in bacitracin while awaiting physician.
--- OUTSIDE RECORDS SUMMARY | 2025-03-08 18:27 | XMS_ITS | CCD ---
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 Role Phone [place] Primary Care Physician [phone] DO Miguel Astorga Attending Provider MD North [place]in Primary Care Provider [phone] Miguel Astorga Admitting Unavailable Nadereely, North Primary Care Unavailable Miguel Astorga Attending Unavailable Petittshelly, Sakina Hines Attending Unavailable Petmikel, Sakina Hines Admitting Unavailable Nadereely, North Primary Care Unavailable Miguel Astorga Attending Unavailable Miguel Astorga Admitting Unavailable MD Sakina Carpenter Attending Provider [phone] MODESTO ROCHE Attending Unavailable MODESTO ROCHE Admitting Unavailable WEST, DR MARÍA Danielle Consulting Unavailable NADERER, DR NORTH Hines Primary Care Unavailable MODESTO ROCHE Consulting Unavailable IRAHETA ., DR HURST Attending Unavailable IRAHETA ., DR HURST Admitting Unavailable NADERER, DR NORTH Hines Primary Care Unavailable IRAHETA ., DR HURST Consulting Unavailable HIGHLBARBIE MONSON Consulting Unavailable BARBIE CANSECO Attending Unavailable BARBIE CANSECO Admitting Unavailable NADERER, DR NORTH Hines Primary Care Unavailable NADERER, DR NORTH Hines Attending Unavailable NADERER, DR NORTH Hines Admitting Unavailable NADERER, DR NORTH Hines Primary Care Unavailable WEST, DR MARÍA Danielle Consulting Unavailable NADERER, DR NORTH Hines Consulting Unavailable HIGHLANDERBARBIE Attending Unavailable BARBIE CANSECO Admitting Unavailable NADERER, DR NORTH Hines Primary Care Unavailable MARIA A ., MATTHIAS Attending Unavailable TAMLYPierre ., MATTHIAS Admitting Unavailable NADERER, DR NORTH Hines Primary Care Unavailable JOCELYN LOVE Consulting Unavailable ANJALILYPierre ., MATTHIAS Consulting Unavailable ASMITA CLARK Consulting Unavailable HIGHLANDERBARBIE Attending Unavailable HIGHLBARBIE MONSON Admitting Unavailable NADERER, DR NORTH Hines Primary Care Unavailable WEST, DR MARÍA Danielle Consulting Unavailable HIGHLANDER, BARBIE Chávez Consulting Unavailable BLAKE ., LAW FAIR Consulting Unavailable MORGOS, LOUANN Consulting Unavailable MARC, UMAIR MULLINS Consulting Unava dav FLOOD, ROBBY Palmer [...] KALEY, MODESTO Attending Unavailable ZIEBER, DR RAZ Gonzaelz Consulting Unavailable KALEY, MODESTO Consulting Unavailable KALEY, MODESTO Admitting Unavailable NADERER, DR NORTH Hines Primary Care Unavailable KALEY, MODESTO Attending Unavailable ZIEBER, DR RAZ Gonzalez Consulting Unavailable KALEY, MODESTO Consulting Unavailable VERHOCECILIA WILSON Attending Unavailable NADERER, NORTH Referring Unavailable NADERER, NORTH Primary Care Unavailable CECILIA ANDERSON Attending Unavailable VERHOCECILIA WILSON Referring Unavailable NADERER, NORTH Primary Care Unavailable Natali IRAHETA Attending Unavailable Natali IRAHETA Attending Unavailable North Chapin MD Primary Care Provider North Chapin MD Unavailable North Chapin MD Primary Care Provider [phone] JR. MONTY, ENRRIQUE Sweeney Attending Unavaila BUD Mederos Attending Unavailable PETITTI, SAKINA Hines Attending Unavailable NADERERNORTH Attending Unavailable APLING, MARY LOU Peterson Attending Unavailable APLING, MARY LOU Peterson Referring Unavailable PETITTI, SAKINA Hines Attending Unavailable ROWE, YENNY Attending Unavailable VERHOFF, CECILIA Referring Unavailable MINNIE, FRANCO Attending Unavailable VERHOFF, CECILIA Referring Unavailable ROWE, YENNY Attending Unavailable VERHOFF, CECILIA Referring Unavailable MINNIE, FRANCO Attending Unavailable VERHOFF, CECILIA Referring Unavailable KELBLEY, NAOMI Attending Unavailable VERHOFF, CECILIA Referring Unavailable APLING, MARY LOU Peterson Attending Unavailable APLING, MARY LOU Peterson Referring Unavailable APLING, MARY LOU Peterson Attending Unavailable STEPARGENTINA, ENRRIQUE Sweeney Attending Unavailable TICOERENORTH Gonzalez Primary Care Unavailable STEPENRRIQUE ELAINE Admitting Unavailable STEPANIC, ENRRIQUE Sweeney Attending Unavailable NADERERNORTH Primary Care Unavailable STEPENRRIQUE ELAINE Admitting Unavailable BRENNAN, ROXANNE Referring Unavailable BRENNAN, ROXANNE Referring Unavailable GRACIESOLEDAD Attending Unavailable BRENNAN, ROXANNE Referring Unavailable BRENNAN, ROXANNE Referring Unavailable BRENNAN, ROXANNE Referring Unavailable BRENNAN, ROXANNE Referring Unavailable CYN, LOYD Referring Unavailable BRENNAN, ROXANNE Referring Unavailable BRENNAN, ROXANNE Attending Unavailable BRENNAN, ROXANNE Attending Unavailable CYN, LOYD Referring Unavailable BRENNAN, ROXANNE Referring Unavailable BRENNAN, ROXANNE Referring Unavailable CYN, LOYD Referring Unavailable BRENNAN, ROXANNE Referring Unavailable CYN, LOYD Referring Unavailable CYN, LOYD Referring Unavailable BRENNAN, ROXANNE Referring Unavailable CYN, LOYD Referring Unavailable CYN, LOYD Referring Unavailable BRENNAN, ROXANNE Referring Unavailable Allergies Allergy Classification Reported Allergen(s) Allergy Type Date of Onset Reaction(s) Facility (2 sources) No Known Medication Allergies; Translations: [No Known Medication Allergies] Propensity to adverse reactions (disorder) [facility] Repository Medications Current Medications Medication Drug Class(es) Dates Sig (Normalized) Sig (Original) 8 hr acetaminophen 650 mg extended release oral tablet (8 sources) take 1 tablet by mouth every eight hours as needed acetaminophen (Tylenol 8 Hour) 650 MG ER tablet Take 650 mg by mouth every 8 (eight) hours if needed Active acetaminophen 325 mg / HYDROcodone bitartrate 5 mg oral tablet (1 source) Opioid Agonist Start: 02-28-2025 End: 03-03-2025 take 1 tablet by mouth every six hours for pain HYDROcodone-acetami nophen ([place]) 5-325 MG tablet Indications: Internal derangement of left knee Take 1 tablet by mouth every 6 (six) hours if needed for severe pain for up to 3 days 12 tablet 02/28/2025 03/03/2025 Active Aspirin (4 sources) Platelet Aggregation Inhibitor, Nonsteroidal Anti-inflammatory Drug Start: 10-28-2019 aspirin 325 mg, Refills(s) 0 Start Date: 10/28/19 Status: Ordered take 1 tablet by mouth in the mo rning aspirin 325 mg tablet Take 1 tablet (325 mg total) by mouth in the morning. Active cholecalciferol 0.05 mg oral capsule (20 sources) Vitamin D Start: 11-03-2022 take 1 capsule by mouth in the morning RA Vitamin D-3 50 MCG (2000 UT) capsule Take 2,000 Units by mouth in the morning. 11/03/2022 Active chondroitin sulfates 400 mg / glucosamine sulfate 500 mg oral tablet (20 sources) take 1 tablet by mouth in the morning glucosamine-chondr oitin 500-400 MG tablet Take 1 tablet by mouth in the morning and 1 tablet in the evening. Active take 1 tablet by tarah th in the morning glucosamine-chondroitin 500-400 mg table t Take 1 tablet by mouth in the morning and 1 tablet before bedtime. Active ciprofloxacin 500 mg oral tablet (11 sources) Quinolone Antimicrobial Start: 10-12-2024 End: 11-11-2024 take 1 tablet by mouth every twelve hours Cipro 500 mg Tab 500 mg = 1 tab(s), Oral, q12hr, X 30 day(s), # 60 tab(s), Refills(s) 0, Pharmacy: [id number], 189, cm, 10/12/24 15:38:00 EST, Height/Length Dosing, 107, kg, 10/12/24 15:38:00 EST, Weight Dosing Start Date: 10/12/24 Stop Date: 11/11/24 Status: Ordered End: 12-24-2024 take 1 tablet by mouth every twelve hours ciprofloxacin (Cipro) 500 MG tablet Take 500 mg by mouth every 12 (twelve) hours 12/24/2024 Discontinued DAILY MULTI-VITAMIN ORAL (1 source) take 1 tablet by mouth once daily DAILY MULTI-VITAMIN ORAL Take 1 tablet by mouth daily. Active 24 hr dilTIAZem hydrochloride 240 mg extended release oral capsule (20 sources) Calcium Channel Neeta Start: dilTIAZem CD (Cartia XT) 240 MG 24 hr capsule 12/17/2024 Active Start: 04-19-2022 take 180 mg by mouth once frank y Diltiazem Hcl Active 180 MG PO Daily April 19, 2022 3:23pm Start: 10-28-2019 Diltiazem Dilt iazem Start Date: 10/28/19 Status: Ordered Start: 06-10-2018 End: 12-24-2024 Dilt-XR 180 MG 24 hr capsule 06/03/2024 Active DilTIAZem (Eqv-Dilacor XR) 180 mg/24 hours oral capsule, extended release (2 sources) Start: 06-24-2023 DilTIAZem (Eqv-Dilacor XR) 180 mg/24 hours oral capsule, extended release Refills(s) 0 Start Date: 06/24/23 Status: Ordered doxepin hydrochloride 50 mg oral capsule (20 sources) Tricyclic Antidepressant Start: 08-21-2021 doxepin 25 mg Cap Refills(s) 0 Start Date: 08/21/21 Status: Ordered Start: 08-23-2020 End: 12-26-2024 doxepin (SINEquan) 50 MG cap valdo Indications: Anxiety disorder, unspecified type TAKE 1 CAPSULE AT BEDTIME 90 capsule 3 12/07/2024 Active [facility] (3 sources) Start: 04-19-2022 take 1 capsule by [facility] once daily [facility] Active 1 CAP PO Daily April 19, 2022 3:23pm Start: 04-19-2022 take 1 capsule by mouth once d aily [facility] Active 1 CAP PO Daily April 19, 2022 12:00am famotidine 20 mg oral tablet (20 sources) Histamine-2 Receptor Antagonist take 1 tablet by mouth in the morning famotidine (Pepcid) 20 MG tablet Take 20 mg by mouth in the morning and 20 mg before bedtime. Active ferrous sulfate 325 mg oral tablet (20 sources) take 1 tablet by mouth at mealtime ferrous sulfate 325 (65 Fe) MG tablet Take 325 mg by mouth in the morning. Take with meals. Active finasteride 5 mg oral tablet (20 sources) 5-alpha Reductase Inhibitor Start: take 1 tablet by mouth in the morning finasteride (Proscar) 5 MG tablet Take 5 mg by mouth in the morning. 09/05/2022 Active Start: 06-17-2018 End: 08-26-2022 take 5 mg by mouth once daily Finasteride Active 5 MG PO Daily April 19, 2022 12:00am levoFLOXacin 750 mg oral tablet (1 source) Quinolone Antimicrobial Start: 02-22-2025 End: 03-01-2025 take 1 tablet by mouth once daily levoFLOXacin (Levaquin) 750 MG tablet Indications: Upper respiratory tract infection, unspecified type Take 1 tablet (750 mg) by mouth Daily for 7 days 7 tablet 02/22/2025 03/01/2025 Active lisinopril 5 mg oral tablet (7 sources) Angiotensin Converting Enzyme Inhibitor Start: 12-15-2024 End: 12-15-2025 lisinopril 5 MG tablet Take 5 mg by mouth 12/15/2024 12/15/2025 Active omeprazole 40 mg delayed release oral capsule (1 source) Proton Pump Inhibitor Start: 09-21-2020 take 1 capsule by mouth once daily in the morning omeprazole (PriLOSEC) 40 mg capsule take 1 capsule by mouth every morning PRIOR TO BREAKFAST 09/21/2020 Active potassium citrate 99 mg oral tablet (3 sources) Start: 04-19-2022 take 99 mg by mouth at bedtime Potassium Citrate Active 99 MG PO Bedtime April 19, 2022 3:23pm rivaroxaban 20 mg oral tablet (20 sources) Factor Xa Inhibitor Start: 10-12-2024 End: 12-24-2024 Xarelto 20 mg oral tablet 20 mg = 1 tab(s), Refills(s) 0 Start Date: 10/12/24 Status: Ordered take 1 tablet by mouth in the mo rning rivaroxaban (XARELTO) 20 mg tablet tablet Take 1 tablet (20 mg total) by mouth in the morning. Active rOPINIRole 2 mg oral tablet (20 sources) Nonergot Dopamine Agonist Start: 04-19-2022 End: 12-26-2024 rOPINIRole (Requip) 2 MG tablet Indications: Restless leg syndrome TAKE 1 TABLET AT BEDTIME 90 tablet 3 12/07/2024 Active Start: 10-28-2019 ropinirole 1 m g, Oral, Refills(s) 0 Start Date: 10/28/19 Status: Ordered sildenafil 100 mg oral tablet (1 source) Phosphodiesterase 5 Inhibitor Start: 05-07-2022 take 1 tablet by mouth once daily Viagra 100 mg Tab 100 mg = 1 tab(s), Oral, Daily, Take 1 hour prior to sexual relations, # 30 tab(s), Refills(s) 2, Pharmacy: [id number], 189, cm, 05/07/22 14:58:00 EDT, Height/Length Dosing, 129, kg, 05/07/22 14:58:00 EDT, Weight Dosing Start Date: 05/07/22 Status: Ordered tadalafil 20 mg oral tablet (2 sources) Phosphodiesterase 5 Inhibitor Start: 06-24-2023 take 1 tablet by mouth once daily Cialis 20 mg Tab 20 mg = 1 tab(s), Oral, Daily, # 39 tab(s), Refills(s) 2, Pharmacy: [facility] #[id number], 189, cm, 05/07/22 14:58:00 EDT, Height/Length Dosing, 107, kg, 06/24/23 15:49:00 EDT, Weight Dosing Start Date: 06/24/23 Status: Ordered tamsulosin hydrochloride 0.4 mg oral capsule (20 sources) alpha-Adrenergic Neeta Start: 04-06-2022 take 1 capsule by mouth once daily Flomax 0.4 mg Cap 0.4 mg = 1 cap(s), Oral, Daily, # 90 cap(s), Refills(s) 3, Pharmacy: [facility], 189, cm, 08/26/23 11:12:00 EDT, Height/Length Dosing, 107, kg, 06/24/23 15:49:00 EDT, Weight Dosing Start Date: 03/23/24 Status: Ordered take 1 capsule by [facility] every twenty-four hours in the morning tamsulosin (Flomax) 0.4 MG 24 hr capsule Take 0.4 mg by mouth in the morning. Active Completed/Discontinued Medications Medication Drug Class(es) Dates Sig (Normalized) Sig (Original) LORazepam 0.5 mg oral tablet (9 sources) Benzodiazepine Start: 5 End: 5 take 1 tablet by mouth every hour LORazepam (Ativan) 0.5 MG tablet Indications: Internal derangement of left knee Take 1 tablet (0.5 mg) by mouth See administration instructions for 1 dose take by mouth 1 hour prior to MRI 1 tablet 12/14/2024 12/24/2024 Discontinued 1 ml methylPREDNISolone acetate 40 mg/ml injection (4 sources) Corticosteroid Start: 4 End: 4 methylPREDNISolone acetate (DEPO-Medrol) injection 40 mg Start: 11-09-2024 End: 11-09-2024 40 mg, Intra-articular, Once PRN Procedure, Starting on Sat11/09/24 at 1153, For 1 dose Problems Active Problems Problem Classification Problem Date Documented Date Episodic/Chronic Acquired foot deformities (7 sources) Hallux rigidus, left foot; Translations: [Other hammer toe(s) (acquired), left foot] Onset: 10-08-2022 Chronic Anxiety disorders (20 sources) Claustrophobia; Translations: [Claustrophobia] Onset: 02-04-2024 02-04-2024 Chronic Disorders of lipid metabolism (20 sources) Hyperlipidemia, unspecified; Translations: [Dyslipidemia] Onset: 03-11-2023 02-04-2024 Chronic Esophageal disorders (20 sources) Gastro-esophageal reflux disease without esophagitis; Translations: [Gastroesophageal reflux disease without esophagitis] Onset: 12-10-2022 02-04-2024 Chronic Heart valve disorders (1 source) Rheumatic disorders of both mitral and tricuspid valves; Translations: [RHEUMATIC D/O MITRAL TRICUSPID VALV] Onset: 03-17-2023 Chronic Hyperplasia of prostate (20 sources) Benign prostatic hypertrophy with outflow obstruction; Translations: [Benign prostatic hyperplasia with lower urinary tract symptoms] Onset: 07-10-2017 Chronic Inflammatory conditions of male genital organs (6 sources) Chronic prostatitis; Translations: [Chronic prostatitis] Onset: 05-07-2022 Chronic Inflammatory conditions of male genital organs (4 sources) Epididymitis; Translations: [Epididymitis] Onset: 10-12-2024 10-28-2019 Episodic Joint disorders and dislocations; trauma-related (7 sources) Derangement of left knee; Translations: [Unspecified internal derangement of left knee] 11-30-2024 Chronic Joint disorders and dislocations; trauma-related (1 source) Other tear of lateral meniscus, current injury, left knee, initial encounter; Translations: [Other tear of lateral meniscus, current injury, left knee, initial encounter] Onset: 02-28-2025 Episodic Osteoarthritis (20 sources) Unspecified osteoarthritis, unspecified site; Translations: [Osteoarthritis of right hip joint] Onset: 04-04-2017 Resolved: 07-11-2017 02-04-2024 Chronic Other aftercare (1 source) Other superintendent container terminal (current) drug therapy; Translations: [OTH CASE BRIEFER CURRENT DRUG THERAPY] Onset: 03-11-2023 Episodic Other connective tissue disease (1 source) Presence of right artificial hip joint; Translations: [PRESENCE RIGHT ARTIFICIAL HIP JOINT] Onset: 12-10-2022 Chronic Other diseases of kidney and ureters (1 source) Urinary tract obstruction; Translations: [Other obstructive and reflux uropathy] Onset: 05-07-2022 Episodic Other diseases of veins and lymphatics (3 sources) Varicocele 10-28-2019 Episodic Other hereditary and degenerative nervous system conditions (1 source) Restless legs syndrome; Translations: [RESTLESS LEGS SYNDROME] Onset: 12-10-2022 Chronic Other hereditary and degenerative nervous system conditions (20 sources) Restless legs; Translations: [Restless legs syndrome] Onset: 07-10-2017 02-04-2024 Chronic Other male genital disorders (7 sources) Male erectile dysfunction, unspecified; Translations: [Erectile dysfunction] Onset: 04-27-2022 Chronic Other male genital disorders (3 sources) Impotence 10-30-2019 Chronic Other male genital disorders (3 sources) Impotence of organic origin 10-28-2019 Chronic Other male genital disorders (3 sources) Pain in testicle 10-30-2019 Episodic Other non-traumatic joint disorders (13 sources) Pain in left knee; Translations: [Pain in joint, lower leg] Onset: 10-07-2024 10-20-2024 Episodic Other non-traumatic joint disorders (1 source) Knee pain Onset: 10-07-2024 Episodic Other nutritional; endocrine; and metabolic disorders (1 source) Obesity, unspecified; Translations: [OBESITY UNSPECIFIED] Onset: 03-11-2023 Chronic Other nutritional; endocrine; and metabolic disorders (20 sources) Body mass index 30+ - obesity; Translations: [Obesity, unspecified] Onset: 03-17-2024 03-17-2024 Chronic Residual codes; unclassified (1 source) Obstructive sleep apnea (adult) (pediatric); Translations: [OBSTRUCTIVE SLEEP APNEA] Onset: 12-10-2022 Chronic Residual codes; unclassified (20 sources) Obstructive sleep apnea syndrome; Translations: [Obstructive sleep apnea (adult) (pediatric)] Onset: 02-04-2024 02-04-2024 Chronic Residual codes; unclassified (1 source) Sleep apnea; Translations: [Sleep apnea, unspecified] Onset: 07-10-2017 02-11-2023 Chronic Residual codes; unclassified (6 sources) Family history of malignant neoplasm of kidney; Translations: [Family history of malignant neoplasm of kidney] Onset: 05-07-2022 Episodic Residual codes; unclassified (3 sources) H/O: anticoagulant therapy 10-30-2019 Episodic Spondylosis; intervertebral disc disorders; other back problems (20 sources) Lumbar spondylosis; Translations: [Spondylosis without myelopathy or radiculopathy, lumbar region] Onset: 07-28-2020 02-04-2024 Chronic Syncope (1 source) Syncope and collapse; Translations: [...] EXPOS COVID-19] Onset: 06-06-2022 Unclassified (1 source) Left knee pain, unspecified chronicity 10-07-2024 Unclassified (1 source) Other supraventricular tachycardia; Translations: [Other supraventricular tachycardia] Onset: 03-17-2024 Unclassified (1 source) Supraventricular tachycardia, unspecified; Translations: [Supraventricular tachycardia, unspecified] Onset: 12-20-2023 Past or Other Problems Problem Classification Problem Date Documented Date Episodic/Chronic Cardiac dysrhythmias (20 sources) Atrial fibrillation; Translations: [Paroxysmal atrial fibrillation] Onset: 07-10-2017 Resolved: 12-24-2024 10-28-2019 Chronic Cardiac dysrhythmias (2 sources) Palpitations; Translations: [Palpitations] Onset: 05-13-2024 Episodic Complications of surgical procedures or medical care (4 sources) Pseudarthrosis after fusion or arthrodesis; Translations: [PSEUDARTHROSIS AFTER FUS/ARTHRODSIS] Onset: 12-20-2022 Episodic Conditions associated with dizziness or vertigo (20 sources) Dizziness and giddiness; Translations: [Postural dizziness] Onset: 03-12-2023 Resolved: 12-24-2024 Episodic Diabetes mellitus without complication (20 sources) Prediabetes; Translations: [Prediabetes] Onset: 03-06-2023 Episodic E Codes: Cut/pierceb (1 source) Contact with workbench tool, initial encounter; Translations: [CONTACT W/WORKBENCH TOOL INIT ENC] Onset: 12-10-2022 Episodic Immunizations and screening for infectious disease (1 source) Encounter for immunization; Translations: [ENCOUNTER FOR IMMUNIZATION] Onset: 12-10-2022 Episodic Neoplasms of unspecified nature or uncertain behavior (2 sources) Neoplastic disease; Translations: [Neoplasm of unspecified behavior of bone, soft tissue, and skin] 08-13-2024 Episodic Open wounds of extremities (4 sources) Laceration without foreign body of left thumb without damage to nail, initial encounter; Translations: [LAC NO FB LT THUMB NO DMG NAIL INIT] Onset: 12-06-2022 Episodic Other aftercare (1 source) superintendent container terminal (current) use of aspirin; Translations: [GROUP HOME CURRENT USE OF ASPIRIN] Onset: 12-10-2022 Episodic Other aftercare (20 sources) Long-term current use of drug therapy; Translations: [Other usp (current) drug therapy] Onset: 03-17-2024 03-17-2024 Episodic Other and unspecified benign neoplasm (1 source) Personal history of colonic polyps; Translations: [PERSONAL HISTORY OF COLONIC POLYPS] Onset: 12-10-2022 Episodic Other and unspecified benign neoplasm (2 sources) Melanocytic nevus of trunk; Translations: [Melanocytic nevi of trunk] 08-13-2024 Episodic Other and unspecified benign neoplasm (2 sources) Skin lesion; Translations: [Hemangioma of skin and subcutaneous tissue] 08-13-2024 Episodic Other connective tissue disease (5 sources) Pain in left foot; Translations: [PAIN IN LEFT FOOT] Onset: 10-08-2022 Episodic Other connective tissue disease (4 sources) Pain in right foot; Translations: [PAIN IN RIGHT FOOT] Onset: 08-01-2022 Episodic Other connective tissue disease (1 source) Arthrodesis status; Translations: [ARTHRODESIS STATUS] Onset: 05-17-2022 Episodic Other connective tissue disease (1 source) Ischial bursitis ; Translations: [Other bursitis of hip, left hip] Onset: 07-30-2023 07-30-2023 Episodic Other non-epithelial cancer of skin (2 sources) History of malignant basal cell neoplasm of skin; Translations: [Personal history of other malignant neoplasm of skin] 08-13-2024 Episodic Other screening for suspected conditions (not mental disorders or infectious disease) (20 sources) Patient encounter status; Translations: [Encounter for screening for malignant neoplasm of prostate] Onset: 03-17-2024 03-17-2024 Episodic Other skin disorders (2 sources) Seborrheic keratosis; Translations: [Other seborrheic keratosis] 08-13-2024 Episodic Other skin disorders (2 sources) Lentiginosis; Translations: [Other melanin hyperpigmentation] 08-13-2024 Episodic Other skin disorders (2 sources) Actinic keratosis; Translations: [Actinic keratosis] 08-13-2024 Episodic Residual codes; unclassified (20 sources) Insomnia; Translations: [Insomnia, unspecified] Onset: 02-04-2024 02-04-2024 Episodic Transient cerebral ischemia (20 sources) Transient global amnesia; Translations: [Transient global amnesia] Onset: 02-04-2024 Resolved: 12-24-2024 02-04-2024 Chronic Unclassified (1 source) CONTACT W/AND (SUSP) EXPOS COVID-19; Translations: [CONTACT W/AND (SUSP) EXPOS COVID-19] Onset: 06-04-2022 Unclassified (1 source) Other supraventricular tachycardia; Translations: [Other supraventricular tachycardia] Onset: 03-17-2024 Unclassified (1 source) Supraventricular tachycardia, unspecified; Translations: [Supraventricular tachycardia, unspecified] Onset: 03-17-2024 Results Test Name Value Interpretation Reference Range Facility Consent Formson 03-02-2025 Consent Forms [id number]#[id number] [facility] Outside Recordson 03-02-2025 Outside Records [id number]#[id number] [facility] Telemetry Stripson Telemetry Strips [id number]#[id number] [facility] Anesthesia Noteon 03-01-2025 Anesthesia Note Patient: OSCAR ESCOTO Age: 74 years Sex: MALE : 1950 Associated Diagnoses: None Author: Leroy Zuñiga DO Postoperative Information Post Operative Note: Post Anesthesia Care Unit. Anesthetic utilized: General. Physical Examination VSS. See nursing flowsheet for vital sign measurements. General: No acute distress. Respiratory: Respirations are non-labored. Cardiovascular: Stable hemodynamics.. Neurologic: Alert, Oriented. Review / Management Condition: Stable. Assessment Anesthetic outcome No anesthetic complications noted. Adequate pain relief. Patient either has a diagnosis of or is at risk of CHERI. Potential risks and mitigating factors were discussed with the patient who expresses understanding.. No Complaint of nausea and vomiting. Plan Transfer/ Discharge: Patient can be discharged from PACU when criteria met. Condition stable. [Electronically Signed on: 03/01/2025 12:38 EDT] Leroy Zuñiga DO [Verified on: 03/01/2025 12:38 EDT] Leroy Zuñiga DO [facility] Anesthesia Note Patient: OSCAR ESCOTO Age: 74 years Sex: MALE : 1950 Associated Diagnoses: None Author: Leroy Zuñiga DO Preoperative Information Anesthesiologist scheduled: Leroy Zuñiga DO Time of Last Intake: > 8 hours. Anesthesia history: Patient history: No prior anesthesia problems. Family history: No prior anesthesia problems. Re-evaluation prior to induction: Completed. Initial evaluation reviewed: SVT ablation 03/2024 without recurrence. Review of Systems Constitutional: No fever, No chills. Respiratory: No shortness of breath. Cardiovascular: No chest pain. Gastrointestinal: No heartburn. Neurologic: Alert and oriented X4. 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 Documented Medications Documented Cartia XT 240 mg/24 hours oral capsule, extended release: 240 mg = 1 cap(s), Oral, Daily Multivitamin: 1 tab(s), Oral, Daily, 0 Refill(s) doxepin 50 mg oral capsule: 50 mg = 1 cap(s), Oral, Once a day (at bedtime) eye promise restore: 1 cap(s), Oral, Daily, 0 Refill(s) famotidine 20 mg oral tablet: 20 mg = 1 tab(s), Oral, Daily finasteride 5 mg oral tablet: 5 mg = 1 tab(s), Oral, Daily glucosimine chondroitin: 1 tab(s), Oral, BID, 0 Refill(s) iron: 1 tab(s), Oral, Daily, 0 Refill(s) lisinopril 5 mg oral tablet: 5 mg = 1 tab(s), Oral, Daily rOPINIRole 2 mg oral tablet: 2 mg = 1 tab(s), Oral, Daily, 0 Refill(s) tamsulosin 0.4 mg oral capsule: 0.4 mg = 1 cap(s), Oral, Daily Problem list: All Problems Arrhythmia / SNOMED CT 6251023376 / Confirmed Hypertension / SNOMED CT 8750019827 / Confirmed Restless leg syndrome / SNOMED CT 27990435 / Confirmed Sleep apnea / SNOMED CT 635645406 / Confirmed, Active Problems (4) Arrhythmia Hypertension Restless leg syndrome Sleep apnea Histories Family History: Breast cancer Mother Bladder cancer Father Procedure history: Total hip replacement (314409025). Tonsillectomy and adenoidectomy ([id number]). Hernia (1767395004). Comments: 02/02/2025 13:25 EDT Cass Thao RN inguinal and umbilical Toe ([id number]). Comments: 02/02/2025 13:26 Cass Edwards RN big toes bilaterally fused Social History Electronic Cigarette/Vaping Assessment Electronic Cigarette Use: Never. Alcohol Assessment Use: Current. Beer, Wine, Liquor, 1-2 times per week Tobacco Assessment Never tobacco user Tobacco Use:. Substance Abuse Assessment Substance use: Never. . Social & Psychosocial Habits Alcohol 02/02/2025 Alcohol Use: Current Type: Beer, Liquor, Wine Frequency: 1-2 times per week Substance Use 02/02/2025 Substance use: Never Tobacco 02/02/2025 Smoking tobacco use: Never tobacco user Electronic Cigarette/Vaping 02/02/2025 Electronic Cigarette Use: Never . Physical Examination Airway: Mallampati classification: II (soft palate, fauces, uvula visible). Distance: Thyromental, Adequate. Temporomandibular joint mobility: Good. Mouth: Adequate opening, Teeth ( wnl ). Neck: Full range of motion. Respiratory: Lungs are clear to auscultation. Cardiovascular: Normal rate, Regular rhythm. Neurologic: Alert, Oriented, No focal deficits. Review / Management Results review: Lab results 02/02/2025 14:06 EDT WBC 6.9 x103/mcL RBC 4.71 x106/mcL Hgb 14.4 gm/dL Hct 42.0 % MCV 89 fL MCH 31 pg MCHC 34 gm/dL RDW 14.5 % Platelet 233 x103/mcL MPV 9.5 fL Auto Neut % 67 % Auto Lymph % 22 % Auto [place] % 7 % Auto Eos % 2.9 % Auto Baso % 0.7 % Neut Abs# 4.6 x103/mcL Lymph Abs# 1.5 x103/mcL [place] Abs# 0.5 x103/mcL Eos Abs# 0.2 x103/mcL Baso Abs# 0.0 x103/mcL Sodium Level 138.0 mmol/L Potassium Level 3.6 mmol/L Chloride Level 105 mmol/L CO2 24 mmol/L Anion Gap 12.6 mmol/L Glucose Level 103.0 mg/dL BUN 23 mg/dL Creatinine Level 1.23 mg/dL BUN/Creat Ratio 18.6 HI eGFR AA >60 mL/min/1.73m2 NA eGFR Non AA 58 mL/min/1.73m2 NA Calcium Level 9.3 mg/dL Osmolality 280 mOsm/L NA . Radiology results: ECHO, 2020 wnl. Leave Specialist: stress ekg 2016 wnl. ECG interpretation: Normal sinus rhythm. Plan [place] [employer]hesi[employer] (ASA) physical status classification: Class III. Anesthetic Preoperative Plan Anesthesia: General. . Anesthetic plan, risks, benefits, and alternatives discussed with the patient and/or family. Risks discussed. Patient verbalized understanding. Informed consent was given. Consent was signed by the patient. Anesthetic technique: General anesthesia. [Electronically Signed on: 03/01/2025 11:00 EDT] Leroy Zuñiga DO [Verified on: 03/01/2025 11:0 (more content not included)... Normal [facility] Inpatient Patient Summaryon 03-01-2025 Inpatient Patient Summary [place] [id number] Patient Discharge Instructions Name: OSCAR ESCOTO : 1950 Patient Address: [address] [place] [address] Primary Care Provider: Name: DARENNORTH Gonzalez After you are discharged if you find you have any questions, please, call [phone] ext [phone] to speak to a nurse. Discharge Diagnosis: Acute lateral meniscus tear of left knee Prescription Information: If you have been given a prescription for narcotics, seek immediate medical attention if you have any difficulty breathing or any sudden status changes such as confusion and sleepiness. If you or anyone you know is experiencing suicidal thoughts, mental health, alcohol and/or drug addiction problems; contact the [facility] 17/06 Crisis Hotline -Text 4HJDP to 037869. If you received any narcotics, sedation, or any other medication that causes drowsiness for the next 24 hours, unless otherwise directed: ? Do not drive a car. ? Do not operate machinery such as power tools, lawn mowers, drills, sewing machines, or stoves ? Avoid alcoholic beverages and drugs for allergies, nerves, or sleep ? Do not make important personal or business decisions or sign any legal documents [facility] would like to thank you for allowing us to assist you with your healthcare needs. The following includes patient education materials and information regarding your injury/illness. OSCAR ESCOTO has been given the following list of follow-up instructions, prescriptions, and patient education materials: Follow-up Instructions With: Address: When: Nneka Bhagat [address] [place] [id number] [facility] (1) 2025 10:00 AM Medications During the course of your visit, your medication list was updated with the most current information. The details of those changes are reflected below: Medications to Continue That Have Not Changed Other Medications dilTIAZem (Cartia XT 240 mg/24 hours oral capsule, extended release) 240 Milligram Oral (given by mouth) every day. doxepin (doxepin 50 mg oral capsule) 1 cap(s) Oral (given by mouth) once a day (at bedtime). famotidine (famotidine 20 mg oral tablet) 1 tab(s) Oral (given by mouth) every day. finasteride (finasteride 5 mg oral tablet) 1 tab(s) Oral (given by mouth) every day. lisinopril (lisinopril 5 mg oral tablet) 1 tab(s) Oral (given by mouth) every day. multivitamin, (Multivitamin) 1 tab(s) Oral (given by mouth) every day. rOPINIRole (rOPINIRole 2 mg oral tablet) 1 tab(s) Oral (given by mouth) every day. tamsulosin (tamsulosin 0.4 mg oral capsule) 1 cap(s) Oral (given by mouth) every day. Template Non-Formulary (eye promise restore) 1 cap(s) Oral (given by mouth) every day. Template Non-Formulary (glucosimine chondroitin) 1 tab(s) Oral (given by mouth) 2 times per day. Template Non-Formulary (iron) 1 tab(s) Oral (given by mouth) every day. It is important to always keep an active list of medications available so that you can share with other providers and manage your medications appropriately. As an additional courtesy, we are also providing you with your final active medications list that you can keep with you. dilTIAZem (Cartia XT 240 mg/24 hours oral capsule, extended release) 240 Milligram Oral (given by mouth) every day. doxepin (doxepin 50 mg oral capsule) 1 cap(s) Oral (given by mouth) once a day (at bedtime). famotidine (famotidine 20 mg oral tablet) 1 tab(s) Oral (given by mouth) every day. finasteride (finasteride 5 mg oral tablet) 1 tab(s) Oral (given by mouth) every day. lisinopril (lisinopril 5 mg oral tablet) 1 tab(s) Oral (given by mouth) every day. multivitamin, (Multivitamin) 1 tab(s) Oral (given by mouth) every day. rOPINIRole (rOPINIRole 2 mg oral tablet) 1 tab(s) Oral (given by mouth) every day. tamsulosin (tamsulosin 0.4 mg oral capsule) 1 cap(s) Oral (given by mouth) every day. Template Non-Formulary (eye promise restore) 1 cap(s) Oral (given by mouth) every day. Template Non-Formulary (glucosimine chondroitin) 1 tab(s) Oral (given by mouth) 2 times per day. Template Non-Formulary (iron) 1 tab(s) Oral (given by mouth) every day. Take only the medications listed above. Contact your doctor prior to taking any medications not on this list. Diet & Activity Patient Activity Level: As Tolerated Patient Diet: Regular Patient Activity Restrictions: Discontinue Alcohol Use, No driving, No heavy lifting, Stop Smoking Comment: Patient education materials, if any, will display below Arthroscopic Surgery Discharge Instructions 1.) Keep ice on your knee after surgery. You may use the ice bag provided to you by the hospital or one from home. The ice should be applied at least 3 times a day for 20 minute intervals. 2.) Keep your knee elevated above the level of you (more content not included)... Normal [facility] MAGR Intraoperative Recordon 03-01-2025 MAGR Intraoperative Record MAGR Intra-Op Record Summary Primary Physician: ENRRIQUE WALDROP DO Finalized Date/Time: 03/01/25 12:04:17 Pt. Name: OSCAR ESCOTO/Sex: 1950 MALE Med Rec #: [id number] Physician: ENRRIQUE WALDROP DO Financial #: [id number] Pt. Type: D Room/Bed: / Admit/Disch: 03/01/25 08:45:44 - Institution: Case Times MAGR Entry 1 Patient In Room Time 03/01/25 11:05:00 Out Room Time 03/01/25 11:57:00 Anesthesia Start Time 03/01/25 11:05:00 Stop Time 03/01/25 12:00:00 Surgery Start Time 03/01/25 11:31:00 Stop Time 03/01/25 11:49:00 Last Modified By: Rupinder Maxwell RN 03/01/25 12:03:54 Case Attendance MAGR Entry 1 Entry 2 Entry 3 Case Attendee ENRRIQUE WALDROP Christopher J DO Gump RN, Rupinder Role Performed Surgeon - Primary Anesthesiologist of Supervisory Historian Record Time In 03/01/25 11:05:00 03/01/25 11:05:00 03/01/25 11:05:00 Time Out 03/01/25 11:57:00 03/01/25 11:57:00 03/01/25 11:57:00 Procedure Arthroscopy Knee(Left) Arthroscopy Knee(Left) Arthroscopy Knee(Left) Last Modified By: Alissa LEOS, Rupinder Maxwell RN, Rupinder Maxwell RN, Rupinder 03/01/25 12:03:50 03/01/25 12:03:50 03/01/25 12:03:50 Entry 4 Entry 5 Case Attendee Felicitas Ramos CSFA HEALTH MANAGER Berny HEALTH MANAGER, Sarah GALLAGHER CSFA Role Performed Hematology Nurse Hematology Nurse Time In 03/01/25 11:05:00 03/01/25 11:05:00 Time Out 03/01/25 11:57:00 03/01/25 11:57:00 Procedure Arthroscopy Knee(Left) Arthroscopy Knee(Left) Last Modified By: Alissa LEOS, Rupinder Maxwell RN, Rupinder 03/01/25 12:03:50 03/01/25 12:03:50 General Comments: MELISSA-ARTHREX Surgical Procedures MAGR Pre-Care Text: A.20 Verifies operative procedure, surgical site, and laterality Im.150 Develops individualized plan of care Entry 1 Procedure Arthroscopy Knee Primary Procedure Yes Primary Surgeon ENRRIQUE WALDROP DO Modifiers Left Surgeon Comment LEFT KNEE ARTHROSOCPY - Start 03/01/25 11:31:00 LATERAL MENISCUS TEAR Stop 03/01/25 11:49:00 Anesthesia Type General Surgical Service Orthopedics Wound Class Clean Technique Details Closure Technique Primary Entire procedure No was performed via laparoscope or robotic assistance Last Modified By: Rupinder Maxwell RN 03/01/25 11:59:10 Post-Care Text: O.730 The patient's care is consistent with the individualized perioperative plan of care General Case Data MAGR Pre-Care Text: A.350.1 Classifies surgical wound Entry 1 Case Information OR MAGR OR 01 Case Level Level 4 Wound Class Clean Specialty Orthopedics ASA Class 3 Diagnosis Preop Diagnosis LEFT KNEE LATERAL Postop Same As Preop No MENISCUS TEAR Postop Diagnosis LEFT KNEE LATERAL MENISCUS TEAR-LATERAL MENISECETOMY, CHONDROPLASTY MEDIAL CHONDRAL Blunt or No Is the procedure No penetrating injury considered occured prior to Emergent/Urgent? the start of the procedure: Last Modified By: Rupinder Maxwell RN 03/01/25 11:40:42 Post-Care Text: O.760 Patient receives consistent and comparable care regardless of the setting Time Out MAGR Entry 1 Procedure(s) Arthroscopy Knee(Left) Time Out Checklist Verifications Team Introductions Yes Confirmed Identity, Yes Completed Procedure, Incision Site, and Consent(s) Presence of Yes Site Verification, Yes Necessary Site Marking, Site Procedural Marking Equipment, Devices, Alternative, and/or and Implants Site Marking Verified Exception in Accordance with Facility Policy Anesthesia Review Antibiotic Received Yes All Anesthesia Yes Within an Concerns Addressed Appropriate Time Interval Prior to Surgical Incision Surgeon Review Anticipated Blood Yes Expected Case Yes Loss Risk Addressed Duration Addressed Critical and Yes Non-Routine Steps to be Performed Addressed Nurse Review Equipment Yes Fire Risk Yes Checks/Concerns Assessment Addressed Completed and Interventions Performed Diagnostic and Yes Sterilization n/a Radiological Test Concerns Addressed Results Displayed are Appropriate and Labeled Other Concerns n/a Addressed Time Out Leroy Zuñiga Time Out Time 03/01/25 11:30:00 Participants DO, Alissa LEOS, Richard Bucio Regina CSFA HEALTH MANAGER, ENRRIQUE WALDROP DO, Berny HEALTH MANAGER, Sarah HEALTH MANAGER CSFA Last Modified By: Rupinder Maxwell RN 03/01/25 11:31:27 General Comments: MELISSA-ARTHREX Patient Positioning MAGR Pre-Care Text: A.280 Identifies baseline musculoskeletal status Im.40 Positions the patient Im.80 Applies safety devices Entry 1 Procedure Arthroscopy Knee(Left) Body Position Supine Left Arm Position Extended on padded arm Right Arm Position Extended on padded arm board board Left Leg Position Dangling Right Leg Position Dangling Press Points Checked Yes Outcome Met (O.80) Yes Last Modified By: Rupinder Maxwell RN 03/01/25 11:22:14 Post-Care Text: E.290 Evaluates musculoskeletal status O.80 Patient is free from signs and symptoms of injury related to positi (more content not included)... [facility] Summary Primary Physician: ENRRIQUE WALDROP DO Finalized Date/Time: 03/01/25 12:31:44 Pt. Name: OSCAR ESCOTO/Kenny: 1950 MALE Med Rec #: [id number] Physician: ENRRIQUE WALDROP DO Financial #: [id number] Pt. Type: D Room/Bed: / Admit/Disch: 03/01/25 08:45:44 - Institution: PACU Case Times MAGR Entry 1 In PACU I 03/01/25 12:00:00 Discharge from PACU 03/01/25 12:28:00 I Last Modified By: Hannah Abraham RN 03/01/25 12:31:42 Finalized By: Hannah Abraham RN Document Signatures Signed By: Hannah Abraham RN 03/01/25 12:31 [facility] MAGR Postoperative Recordon 03-01-2025 MAGR Postoperative Record MAGR Phase II Record Summary Primary Physician: ENRRIQUE WALDROP DO Finalized Date/Time: 03/01/25 13:26:19 Pt. Name: TIGIST OSCARYOUNG De La Cruz/Sex: 1950 MALE Med Rec #: [id number] Physician: ENRRIQUE WALDROP DO Financial #: [id number] Pt. Type: D Room/Bed: / Admit/Disch: 03/01/25 08:45:44 - Institution: Phase II Case Times MAGR Pre-Care Text: Patient is free from s/s of injury. Patient remains free from compromised physical state related to surgery or anesthesia. Patient comfort maintained. Patient/family verbalize understanding of discharge instructions. Entry 1 In PACU II 03/01/25 12:30:00 Discharge from PACU 03/01/25 13:19:00 II Last Modified By: Camden Jones RN 03/01/25 13:26:15 Post-Care Text: The patient remains free from s/s of injury. Patient's vital signs stable, circulation maintained, return to preop mental and physical status, opsite/dressing intact, minimal or absent nausea and vomiting, tolerates po intake. Patient verbalizes adequate pain control. Patient/family express understanding of discharge instructions. Finalized By: Camden Jones RN Document Signatures Signed By: Camden Jones RN 03/01/25 13:26 [facility] MAGR Preoperative Recordon 0 03-01-2025 MAGR Preoperative Record MAGR Pre-Op Record Summary Primary Physician: ENRRIQUE WALDROP DO Finalized Date/Time: 03/01/25 13:12:56 Pt. Name: OSCAR ESCOTO /Sex: 1950 MALE Med Rec #: [id number] Physician: ENRRIQUE WALDROP DO Financial #: [id number] Pt. Type: D Room/Bed: / Admit/Disch: 03/01/25 08:45:44 - Institution: Pre-Op Case Times MAGR Pre-Care Text: Patient will be optimally prepared for surgery. Patient is free from s/s of injury. Provide information to patient/family related to plan of care. Verify patient allergies. Confirm identity and verify consent before the operative or invasive procedure. Entry 1 Patient Arrival Time 03/01/25 08:57:00 Preop Departure 03/01/25 11:03:00 Last Modified By: Camden Jones RN 03/01/25 13:12:52 Post-Care Text: Patient is prepared mentally and physically and is ready for surgery. The patient remains free from s/s of injury. Patient/family express understanding of plan of care and participate in decisions affecting his or her perioperrative plan of care. Allergies documented appropriately. Patient identifiers and consent correct. General Comments: Pt arrives to [facility]. Pt denies SOB,cp,cough and flu like symptoms. Pt also denies pacemaker,defibrillato r. Pt does have sleep apnea. Pt is not a diabetic. Finalized By: Camden Jones RN Document Signatures Signed By: Camden Jones RN 03/01/25 13:12 Normal [facility] Patient Handouton 03-01-2025 Patient Handout Arthroscopic Surgery Discharge Instructions 1.) Keep ice on your knee after surgery. You may use the ice bag provided to you by the hospital or one from home. The ice should be applied at least 3 times a day for 20 minute intervals. 2.) Keep your knee elevated above the level of your hear. You may prop your leg up on pillows as long as the knee is higher than your heart. 3.) Move your knee. Please, do not be afraid to move the knee joint. It will be stiff and sore in the beginning, but this will slowly improve with healing time 4.) Wiggle your toes and exercise your ankle. These muscle pumps with help to take the swelling out of your knee and enhance circulation to the leg. Wiggle your toes and exercise your ankle for ten minutes every hour that you are awake. 5.) You may remove all bandages from your knee after 3 days. There may be some blood and drainage on the bandages, this is to be expected. You may clean the puncture sites with hydrogen peroxide and a cotton swab three times a day. Keep band aids over the puncture sites until scabbed over. 6.) If don't already have them, you will be issued a walker or crutches to aid in ambulation. These will allow you to move about without overloading your knee. The doctor would like you to: Add weight to your knee as tolerated with crutches Let the level of pain be your guide 7.) Do not immerse your knee under water until the puncture sites have completely healed. You may shower and pat the knee dry after you remove the bandages starting in 3 days. 8.) Keep your follow up appoinment. 9.) If you notice foul odor, excessive drainage, calf pain, shortness of breath or increased swelling or pain call the office or proceed to the nearest Hospital Emergency Room. 10.) Be kind to yourself and do your exercises. Get planety of rest. Healing takes time. 11.) If you have been supplied with a brace, keep it in place at all times. 12.) For the next 24 hours do not drink any alcoholic beverages, drive a motore vehicle, operate machinery or powertools, make important decisions or sign important papers. 13.) You may feel dizzy, lightheaded or sleepy following surgery. Make sure you have someone with you for the rest of today. Normal [facility] Progress Note - Nurserae Progress Note - Nurse Spoke with pt and informed him to be at hospital at 0845 and NPO after MN, he verbalizes understanding. [Electronically Signed on: 02/26/2025 09:54 EDT] Miranda Head RN [Verified on: 02/26/2025 09:54 EDT] Luke Headl RN [facility] Coding Summaryon 02-09-2025 Coding Summary HTMLBase 64 TirvadkzMQx5bPa+PGhlYW Q+JP6XASSaD88evDEnmW4o A5OJHKyFRzqxZHVCUFnWRf RwxdBjPM8yhJHqVXFc IC8+HZ2wKVHlBptqtXHec7 W2tHM6X98khd6yIDqyjYC0 CVRrOjTexzbgz4vzeQd1RA cuNmluOyBt UJCufU90XYG5pM70Oz01aS TmcPWwx4uspWr6FtVnNNYs UWG2kDtsSXskt8ZzUIGsG8 2reYRol6T1 TGGjyEpkzWVdAeDlpSS6wO 2cKVkgjophy2fsnxghUez5 nt06xWTht3G4sKW9X3Innc Q5QZFbtQHg SsjzjRQTfW3paqhka2idel tgQeDxEVYwSOs5KKq0ACEc xYbzCkIoTY56IGB1WMTopv CjE1BaRIWg bGrrQbA9i9R8Ov8TX9LQFk uqL4UDWQVLHIzraNU+PC90 mw60W3VuNqapGib6FDXpYD K8bSX8fA1n UCDaFTgpi9Q4oFO8A3Qpzn Hqng5nr5ecKSHgJRdhE64t yPMcm5A5APWphBE9TOXsyR eqNgTlzE86 Oyc+QVQgbCpvx9NnAjesb3 dqq6ffdTf4QrhvVNIqquBd aMprFZB0k6IqQh3yAGLrqI T9bZO0wW4e DqMqErG7OMkxT363NqUzpY SvAphoA72sC3RlwYE+PHRy Xwz4WYOayCmwCD8fU3ZaQM RpbmctbGVm nGzxBL9pGJJdwrrwDOVgjA 3aXCVlB6q1QsWvWaU5CLaq Q8RbILKtgtztTy15nO6xCt GcCuW5YSsf C6BpnnO4EODlgTOyTOtiSM F4R43wl0A4RDQzSTJhVTD2 bBY2uM4fbKeikukuoXJanE sgdmVydGlj TVbiHBqzY433HAIezQxrMc NvZGluZyBEYXRlOiAgMDMv MTgvMjAyNTwvdGQ+PHRkIH H1rSsvBVSs eTRlIHolPq7yvZljwWhtHQ 6cRHEkftbvMBKrbV5eGZHr bKXrgOrwPE4nXLYcgrvje1 85PoYeAXM1 VEXfkUJpS5NazL0qOrPpWN AoHMOiS8MdpOUiIXmzX059 INkuYmA3YTQorcDyL7EvWW FsaWduOiB0 i5Y9Gh0Wu3DqujyoU1IzeT IyOhKrJbyoJZa4M1BtSwli dHI+ZR17XQAgAJ74GHu1UQ F0lIjsITxr FOWaW5ApyR1bKhKmNSRcVO RkOyc+PHRhYmxlIHdpZHRo VOulEHNoImJjjNjoDN9aTb 9yZGVyLWNv pMtqkAFmPmRmo4brXJShGX dpFK0flHraO0KtfQW5DDCo d4o9Ms79O81tD4WzjXN+PG DkxPU9jXM9 qC5nVfHsTzY5PWwwE186Qq ZenBUrBqgzg1dkc2dwlBe8 NiS0PXUfxdFgzHmhDNM2e8 JuCl12P41p IHdpZHRoPSIxNSUiIHZhbG mfin6rmA2wKe2+PGNvbCB3 qLZ6kT5uIcRiWyZ1ATzzQ0 49InRvcCIv Jhxok1suf4fiwRy0PeEnAA PaqnOhzKwoCSV4w2SgFp42 T8PsgVryw1TeOzo4tn99zG Odz5A6fQC6 Y0MqRMSnfzxlaMYfdBxrGQ 9pHGBjvtkfFIFakH1pVONx I4o1PwVvKzF6EQfrW3Xjke F1PKSgtGXf VNZsmQGErS8yldilt0lwdr qpEpGgMENyRHh8QQn4VFLm nZnuByDcXMY2LoJ6NUO1rA JtcB0hhAvp vlgehC6aHes+FWD9kRRsuB CMDT0bSmpajRE+PHRkIHN0 vBnsGGokPEKxuY4cSXPpH9 o1HiCjBoG6 IEwzA5NisaG4ZEIcfAMfIN GqhECPqV5wqxaez3imhyir TnRvBIScSPi4PUt1NDNouG duOiBsZWZ0 LiZ3GTK7hAFvuY7zcAjlsk hclN1tIyb+QmlydGggRGF0 SBy5X8LbNio7WKBlzKfiYH 0ncGFkZGlu Mk9maLrnqPgxAK1pLSPfwp gxx368SbCtq8zmNCEyuXQw TLpxHSK6D96ka7A3DLJsZY XtPMP8sNP0 jY4kzPvhumxwoZGrxUbbhl HggHirPVvnRRxoV543SMKq zGuvBoEsMTe2Z3JzBwj0UJ ApiDhlJV4e uZEcTWyaHb2xzKdrcUluXL 4iBMUcfioyo433HjByf2ij HWTezEEoLEijZTW8X72gw4 F1XJAfFQYq CJB1bOG0sK8ofQbftmqahW VmdDsgdmVydGljYWwtYWxp B409LDZlvSrxWqVfmKe7F0 RuIjd9MGNq eIazSV7wsHYmSCofMq3piU rwqYdlYW4zVPFuimkiw813 EmXmv9pcUQTkaIHcHZnlDY K4D68zd3H7 EMRiHIYpODB0gDA5uI0ovR lnbjogbGVmdDsgdmVydGlj YUxfYXsxP679YFRguTfpFk BhdGllbnQg PPvcALl0C7SeXqsrdIW+PC 80OQAzUJ75tOFzeTPam6zf zBw7CxSnPMSpDHI3rQgvEE pzs3MzXOWz P03nzSIia6F0QRTryZvmqK PaOsYnxWA2rA3hHSsdptdd d9qbvrckTbsfn4diux43mV 02W74fYNsa ZHRoPSIzMCUiIHZhbGlnbj 2xmR9xSe9+QILvxRT9aES0 vX4kIFAgByL8TVrdV256Bq RvcCIvPjxj w0pth0buiWr3JdU7YZLiij XlsZauPJT0g3PwOk84J02u IHdpZHRoPSIyMCUiIHZhbG yxdv0dtC5p Ii8+VYDhpCD0jXB7pU7lWo ApKjK9XIygY909ZyWolIJm EoduF03fF9OwlIZ+PHRyPj v0KHHuqEqk QS8vwZKxWJqdYd3uFHW6Ki KtFuYxUZvgE4TbMRYukrpw bguvpNN2LKEyWKOzwP12Nh 9udDogMTBw mFXZuQ3kswoce5ajunqeWu MzOQNaMVj4OPv8CEFsuWkr SbLfARN3GxY8NMA4jUNpdT 1hbGlnbjog xG1jE8YcXTQfagxbEx07zE 6xEdTvHnY7ECqyMez+TUNN DFHNXZTdZPTJUB3OJMJYGJ xFTjwvdGQ+ FYObBOI7cKveENrlWKTwyL 5pDRAiB6p0JvRsRcC5MOmw T7NaCYBfjayxLa75yN0yFb FfSpV6DYhb R2FytxF7LIAczUDlEYkwAD B2B11ug3T7JYWiOWSyLDE9 ePC7sV9auWodxorfeZBgwZ sgdmVydGlj EDgkLOokC084RMWlrEidPw U0JqObTpA2PAT9V3SbPig9 ZAFiiLmhHL0agIGgVXlnQc 1yaWdodDog JW9sJWQfuenpHXTzoA6jOJ ZjzKOmlZtdCZ6aZBPwlbap b324BvYnQYT7MLGsaZUaD3 TwpN4vKmQd NZBxUCUqI4FnmFQkWXynR4 89KAdbDcB4UQWzkyTuA3Nb ZCOlgImqRvC9q9N1Ia06Co BZZWFyczwv dGQ+ZHBfHVO4cKzpNGpcLG RujI6hNBDqQ4s2GtZsJwQ6 GRohO3VeSAAbrazvUw35hH 8hShExRfV9 QTqnQ4VwebR9BJImfLVsIM hbKKD7W28em3W3BWMtXLLr LQL5xQC7hT3pqDktlekgwQ VmdDsgdmVy kZseQFbkHLxmA084BZNhfU wwVc4DCOQ3H6McHdp9HCAz eXihBP3aoYRrGWpwJe6omB fojLsvDP3k HLEizsuiEHDekK0dDPQjhW UbcFmsHZ0tKPGwvrshc717 JiTkDCE6WQIeiSKhZ7TjpU 9yOiAjMDAw TKCbZ8KdlHBjUTmfK312MC loYaZ0YFFhsxDlR9FuLDYf kQgzVjT7a8F3Xa3SQLtirR Q+ZJ59ce16 U1JeLjlwCdr1WPNmKOR1eX E3lD1wRRInXYsyj2H0pTL8 L4GjnnRpgw8yg8vqPTAvUX adH90cuZXe h5Z6ADSkbWN6VTReaRvzWf NxsL60Oci+KLCldYraj4Zx Iampi4zbc9amtEi8IlDaCN IgdmFsaWdu RIA1l6LzCn11H65jKYdtUV RxBZRcUIBeHBQdeXrhct5y oO0eVa0+SQTkmPA0sGU5zB 8aFjIkKzW5 JOfpV379HmWneUPrTofnh1 dcn0rvvMl3ZxXpOFJwlbYf jJbeDRY6g7FiNt00Q1MdaF jwb9MtRfq9 js86oSRvq3O3tKC9V2RgSI OdcryfyEAgaYueBL2wMJJn hxbvMAFsrW2dUTOjV4y2Bc BuQiY4OPjv H7QulkX3BZHtuXSuNGFfmP FRpX1zytqqc6iahhliUnTo YWKeERz5ENa7VRWoxPicMa YqQUI5DsO1 UVR2cZJxuK9shLkgjktkiK 9wOyc+CSf4q0fwtAPoDR0m mTH7IV13PC29dAKyy8R8sZ T6Z6WkFLOk sgahznwmbEA7PKHnLZChaE 16Am1frMhqYe8lTOAeWGD4 GCDhyBKdQ5EdbS5jWgKzFW KqVNCeH9Vn aWMbLVocD336XFqgNkC2CI QtalOwS0KdGNJepCztNjV9 g9B8Ih4RFN30NG34GA94zW Gpu1L5bFF5 Q7NyAUPbwiydsjxcdAY5QV JcUQBfyB20Mk9hcYzlAz8p XZDlKUC1DVDmvKYhV0OekI 9yOiAjMDAw YAEqB7WltIIxVElxE322QB tzJlT5YXTtpzKxG1PtGGKb lJufAfJ9s0K1Pf0PLn29UZ 36DE64cPLj e0R8wCZ9L0YfXKHergrqcb afjZZ6RRZhGLEweT96Lw4f bBqpMw3rVXQrIWY3BXDeyG LxV3LtwI1h PkAvTXIdRCWdF0GjkSBuXG jpC217OYdrBkR7TOIcviPo B7AwGJTofWbaAyF5r8D8Tx 0YUJjkxjb9 W0KvBqsdaNG+TU80ZEKeAU 04dZRspDPdj8mdiHk8OtWj XQUwTJS2xIxaEJmsr2RkZG PzQ50agULz c2U (more content not included)... [facility] Progress Note - Nurseon 01-23 Progress Note - Nurse Dr Ovalles reviews pt chart and no new orders were received. [Electronically Signed on: 02/04/2025 12:38 EDT] Miranda Head RN [Verified on: 02/04/2025 12:38 EDT] Miranda Head RN [facility] 36on 02-03-2025 36 Patient's says his BP is higher AFTER he takes lisinopril. They are leaving tomorrow to go to [place] for 2 weeks. I think they question the need for lisinopril if it's not helping his BP. He does not have a diagnosis of heart failure, OR hypertension. When he gets up in the AM and checks his BP, it's in the 114's. AFTER taking lisinopril his BP goes up to around 130. I told patient's if he'd like to stop lisinopril for 1-2 weeks and continue to keep track of his BP without, that was ok. [facility] 36 PER BRENNAN STAY ON 5 MG Normal [facility] .Auto Diff 1on 02-02-2025 Auto Charles Mix % 7 % Normal 1-12 [facility] Comment on above: Performed By: #### 7 [id number], [id number], [id number] ####[facility] (DEFAULT)[address] [place] [address] 07016 Baso Abs# 0.0 x10 Normal 0.0-0.2 [facility] Comment on above: Performed By: #### 7 [id number], [id number], [id number] ####[facility] (DEFAULT)[address] [place] [address] Basophils/100 WBC (Bld) 0.7 % Normal 0.2-2.0 [facility] Comment on above: Performed By: #### 7 [id number], [id number], [id number] ####[facility] (DEFAULT)[address] [place] [address] 27499 Eos Abs# 0.2 x10 Normal 0.0-0.4 [facility] Comment on above: Performed By: #### 7 [id number], [id number], [id number] ####[facility] (DEFAULT)[address] [place] [address] 37434 Eosinophils/100 WBC (Bld) 2.9 % Normal 0.9-4.0 [facility] Comment on above: Performed By: #### 7 [id number], [id number], [id number] ####[facility] (DEFAULT)[address] [place] [address] 60651 Lymph Abs# 1.5 x10 Normal 1.3-2.9 [facility] Comment on above: Performed By: #### 7 515694, [id number], [id number] ####[facility] (DEFAULT)[address] [place] [address] 36781 Lymphocytes/100 WBC (Bld) 22 % Normal 14-48 [facility] Comment on above: Performed By: #### 7 510585, [id number], [id number] ####[facility] (DEFAULT)[address] [place] [address] 33674 Charles Mix Abs# 0.5 x10 Normal 0.0-0.8 [facility] Comment on above: Performed By: #### 7 376015, [id number], [id number] ####[facility] (DEFAULT)[address] [place] [address] Neut Abs# 4.6 x10 Normal 1.5-9.2 [facility] Comment on above: Performed By: #### 7 257159, [id number], [id number] ####[facility] (DEFAULT)[address] [place] [address] Neutrophils/100 WBC (Bld) 67 % Normal 44-88 [facility] Comment on above: Performed By: #### 7 573280, [id number], [id number] ####[facility] (DEFAULT)[address] [place] [address] BMP Standardon 02-02-2025 eGFR Non AA 58 mL/min/1.73m2 Invalid Interpretation Code [facility] Comment on above: Performed By: #### 7 [id number], [id number], [id number] ####[facility] (DEFAULT)[address] [place] [address] eGFR AA >60 Invalid Interpretation Code [facility] Comment on above: Performed By: #### 7 000427, [id number], [id number] ####[facility] (DEFAULT)[address] [place] [address] 74289 Anion gap [Moles/Vol] 12.6 mmol/L Normal 5.0-19.0 [facility] Comment on above: Performed By: #### 7 309989, [id number], [id number] ####[facility] (DEFAULT)[address] [place] [address] Calcium [Mass/Vol] 9.3 mg/dL Normal 8.9-10.3 [facility] Comment on above: Performed By: #### 7 578567, [id number], [id number] ####[facility] (DEFAULT)[address] [place] [address] 14248 Chloride [Moles/Vol] 105 mmol/L Normal 101-111 [facility] Comment on above: Performed By: #### 7 532003, [id number], [id number] ####[facility] (DEFAULT)[address] [place] [address] 36092 CO2 [Moles/Vol] 24 mmol/L Normal 21-32 [facility] Comment on above: Performed By: #### 7 939538, [id number], [id number] ####[facility] (DEFAULT)[address] [place] [address] 95252 Creatinine [Mass/Vol] 1.23 mg/dL Normal 0.90-1.30 [facility] Comment on above: Performed By: #### 7 753085, [id number], [id number] ####[facility] (DEFAULT)[address] [place] [address] 94184 Glucose [Mass/Vol] 103.0 mg/dL Normal 74.0-118.0 [facility] Comment on above: Performed By: #### 7 772154, [id number], [id number] ####[facility] (DEFAULT)[address] [place] [address] 12931 Osmolality 280 mOsm/L Invalid Interpretation Code [facility] Comment on above: Performed By: #### 7 508096, [id number], [id number] ####[facility] (DEFAULT)[address] [place] [address] 36882 Potassium [Moles/Vol] 3.6 mmol/L Normal 3.6-5.1 [facility] Comment on above: Performed By: #### 7 727848, [id number], [id number] ####[facility] (DEFAULT)[address] [place] [address] 08213 Sodium [Moles/Vol] 138.0 mmol/L Normal 136.0-144.0 [facility] Comment on above: Performed By: #### 7 079249, [id number], [id number] ####[facility] (DEFAULT)[address] [place] [address] 37978 Urea nitrogen [Mass/Vol] 23 mg/dL Normal 8-26 [facility] Comment on above: Performed By: #### 7 213170, [id number], [id number] ####[facility] (DEFAULT)[address] [place] [address] Urea nitrogen/Creatinine [Mass ratio] 18.6 mg/mg High 4.6-16.2 [facility] Comment on above: Performed By: #### 7 932828, [id number], [id number] ####[facility] (DEFAULT)[address] [place] [address] CBC w/ Auto Diffon Erythrocyte distribution width (RBC) [Ratio] 14.5 % Normal 11.5-15.0 [facility] Comment on above: Performed By: #### 7 621209, [id number], [id number] ####[facility] (DEFAULT)[address] [place] [address] Hematocrit (Bld) [Volume fraction] 42.0 % Normal 34.8-51.9 [facility] Comment on above: Performed By: #### 7 287667, [id number], [id number] ####[facility] (DEFAULT)[address] [place] [address] Hemoglobin (Bld) [Mass/Vol] 14.4 g/dL Normal 11.8-17.7 [facility] Comment on above: Performed By: #### 7 314154, [id number], [id number] ####[facility] (DEFAULT)[address] [place] [address] Man Diff? Auto Invalid Interpretation Code [facility] Comment on above: Performed By: #### 7 121200, [id number], [id number] ####[facility] (DEFAULT)[address] [place] [address] 53809 MCH (RBC) [Entitic mass] 31 pg Normal 24-34 [facility] Comment on above: Performed By: #### 7 656819, [id number], [id number] ####[facility] (DEFAULT)[address] [place] [address] 68888 MCHC (RBC) [Mass/Vol] 34 g/dL Normal 26-37 [facility] Comment on above: Performed By: #### 7 571891, [id number], [id number] ####[facility] (DEFAULT)[address] [place] [address] 25393 MCV (RBC) [Entitic vol] 89 fL Normal 81-100 [facility] Comment on above: Performed By: #### 7 789634, [id number], [id number] ####[facility] (DEFAULT)[address] [place] [address] 05308 Platelet 233 x10 Normal 138-427 [facility] Comment on above: Performed By: #### 7 048612, [id number], [id number] ####[facility] (DEFAULT)[address] [place] [address] 43582 Platelet mean volume (Bld) [Entitic vol] 9.5 fL Normal 6.3-10.2 [facility] Comment on above: Performed By: #### 7 828687, [id number], [id number] ####[facility] (DEFAULT)[address] [place] [address] 16028 RBC 4.71 x10 Normal 3.70-5.30 [facility] Comment on above: Performed By: #### 7 656960, [id number], [id number] ####[facility] (DEFAULT)[address] [place] [address] 66046 WBC 6.9 x10 Normal 3.5-10.5 [facility] Comment on above: Performed By: #### 7 855929, [id number], [id number] ####[facility] (DEFAULT)[address] [place] [address] Telephoneon 02-02-2025 Telephone [id number] TigistOscar Flora 1950 M Date Provider Department Center 02/02/2025 TRINITY DIAZ Family History Problem Relation Age of Onset Other Mother Coronary artery disease Mother Other Father Family Status - Relation Status Age at Mother Father Normal [facility] 36on 12-24-2024 36 Patient called back to say his BP's are still running a little high. Sometimes around 144-148 systolic, but not often. I advised him to take another 5mg of lisinopril in the afternoon's if BP is elevated. Dr. Amin's note per [facility] says add lisinopril 5-10 . He verbalized understanding and will continue to keep an eye on his BP. Normal [facility] Telephoneon 12-11-2024 Telephone [id number] Oscar Escoto 1950 M Date Provider Department Center 12/11/2024 TRINITY DIAZ Family History Problem Relation Age of Onset Other Mother Coronary artery disease Mother Other Father Family Status - Relation Status Age at Mother Father Normal [facility] XR Knee - bilateral AP W sta ndingon 11-11-2024 Imaging Result: Standing AP shows no gross evidence of major arthritic process, overall anatomic alignment appeared to be well preserved. There was no acute bony process including but not limited to fracture and/or dislocation. Impression: no gross evidence of major arthritic process or structural damage bilateral knees [facility] XR Knee - bilateral AP W sta ndingOrdered By: Jr. Waldrop on 11-11-[address] [facility] Work Phone: Office Visiton 11-10-2024 Follow-up visit [id number] Oscar Escoto 1950 M [facility] Provider Department Center 11/10/2024 ROXANNE MARTINEZ Family History Problem Relation Age of Onset Other Mother Coronary artery disease Mother Other Father Family Status - Relation Status Age at Mother Father Level of Service:03053 [place] OFFICE/OUTPATIENT ESTABLISHED LOW MDM 20 MIN Normal [facility] No Panel Informationon 11-09 Mary Lou Diane NP 11/12/2024 9:12 AM L Inj/Asp: L knee on 11/09/2024 11:53 AM Indications: pain Details: 20 G needle, anterolateral approach Medications: 40 mg methylPREDNISolone acetate 40 MG/ML Outcome: tolerated well, no immediate complications UTILIZING ASEPTIC TECHNIQUE PT GIVEN INJECTION IN LEFT KNEE, NEUROVASC INTACT S/P INJ, TOLERATED WELL Procedure, treatment alternatives, risks and benefits explained, specific risks discussed. Consent was given by the patient. [facility] XR Knee - bilateral AP W sta ndingon 11-09-2024 Radiology Study observation (narrative) [facility] Ambulatory Visit Summaryon 1 12-12-2023 Ambulatory Visit Summary Ambulatory Visit Summary OSCAR ESCOTO :1950 Visit Date:10/12/2024 Ambulatory Visit Instructions Your Diagnosis BPH with obstruction/lower urinary tract symptoms Epididymitis Chronic prostatitis Family history of kidney cancer Organic impotence Your Care Team Attending Physician - Natali IRAHETA MD Primary Care Physician - NORTH CHAPIN MD This Is Your Medications List ciprofloxacin (Cipro 500 mg Tab) finasteride (finasteride 5 mg Tab) tadalafil (Cialis 20 mg Tab) tamsulosin (Flomax 0.4 mg Cap) Contact prescribing physician if questions or concerns aspirin diltiazem (DilTIAZem (Eqv-Dilacor XR) 180 mg/24 hours oral capsule, extended release) doxepin (doxepin 25 mg Cap) rivaroxaban (Xarelto 20 mg oral tablet) ropinirole Procedures Performed Colonoscopy, Foot, Hip replacement, Removal of Basal Cell on Nose, Repair of inguinal hernia, Titanium Plate Left Arm, Tonsillectomy with adenoidectomy. Discharge Vitals Temperature (Oral) 37 ???C Heart Rate (Peripheral) 60 Respiratory Rate 16 Blood Pressure 128/75 Height 189 cm Height 74 in Weight 107 kg Weight 235.894 lb BMI 29.95 What to do next Scheduled Follow-Up Appointments Saturday. 2024 1:15 PM EDT With: Natali IRAHETA MD Where: [facility] [address] [place] [address]- You Need to Schedule the Following Appointments Follow Up with Natali IRAHETA MD, URL When: Comments: 6 mos Where: [facility] [address], [place] [address]- [phone] Medications What How Much When Instructions New ciprofloxacin (Cipro 500 mg Tab) 1 Tablets By Mouth Every 12 hours Duration: 30 Days Pickup at [facility] 1426 Unchanged finasteride (finasteride 5 mg Tab) 1 Tablets By Mouth Every day Unchanged tadalafil (Cialis 20 mg Tab) 1 Tablets By Mouth Every day Unchanged tamsulosin (Flomax 0.4 mg Cap) 1 Capsules By Mouth Every day Unchanged aspirin 325 Milligram Contact prescribing physician if questions or concerns Unchanged diltiazem (DilTIAZem (Eqv-Dilacor XR) 180 mg/ 24 hours oral capsule, extended release) Contact prescribing physician if questions or concerns Unchanged doxepin (doxepin 25 mg Cap) Contact prescribing physician if questions or concerns Unchanged rivaroxaban (Xarelto 20 mg oral tablet) 1 Tablets Contact prescribing physician if questions or concerns Unchanged ropinirole 1 Milligram By Mouth Contact prescribing physician if questions or concerns Pharmacy Information [facility]29: [address] [place], [place] [id number] [phone] Allergies No Known Medication Allergies Problems Ongoing - Any problem that you are currently receiving treatment for. 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 Please share your experience with us by completing your survey. We appreciate your feedback and thank you for choosing us for your care. Education Materials Epididymitis Epididymitis is inflammation or swelling of the epididymis. This is caused by an infection. The epididymis is a cord-like structure that is located along the top and back part of the testicle. It collects and stores sperm from the testicle. This condition can also cause pain and swelling of the testicle and scrotum. Symptoms usually start suddenly (acute epididymitis). Sometimes epididymitis starts gradually and lasts for a while (chronic epididymitis). Chronic epididymitis may be harder to treat. What are the causes? In men ages 20???40, this condition is usually caused by a bacterial infection or a sexually transmitted infection (STI), such as gonorrhea or chlamydia. In men 40 and older, this condition is usually caused by bacteria from a urinary blockage or from abnormalities in the urinary system. These can result from: ??? Having a tube placed into the bladder (urinary catheter). ??? Having an enlarged or inflamed prostate gland. ??? Having recently had urinary tract surgery. ??? Having a problem with a backward flow of urine (retrograde). In men who have a condition that weakens the body's defense system (immune system), such as human immunodeficiency virus (HIV), this condition can be caused by: ??? Other bacteria, including tuberculosis and syphilis. ??? Viruses. ??? Fungi. Sometimes this condition occurs without infection. This may happen because of trauma or repetitive activities such as sports. What increases the risk? You are more likely to develop this condition if you have: ??? Unprotected sex with more than (more content not included)... Normal [facility] Urology Office/Clinic Noteon 10-12-2024 Urology Office/Clinic Note Urology Office/Clinic Note Chief Complaint 1yr PSA HPI Staff F/u with PSA. Last seen in office 06/24/23. Pt states he is also experiencing pain in his right testicle. Pain has been going on about a couple of months. Had this issue previously, but then it resolved. Now pain has returned. Dx: BPH with obstruction/LUTS, chronic prostatitis,family hx of kidney cancer (father) and organic impotence *finasteride 5mg, Flomax 0.4mg PSA: 05/09/21 - 0.70 04/27/22 - 0.49 06/02/23 - 0.48 03/26/24 - 1.02 Dysuria: denies Incomplete bladder emptying: denies Hematuria: denies Frequency: 3-5x per day Urgency: denies Nocturia: denies Stream: not strong, but good stream Leaking: denies Post void dripping: denies Wearing pads/ Depends: denies Urge incontinence: denies Stress incontinence: denies Incontinence without Sensory Awareness: denies Abdominal pain: denies Flank pain: denies Sexual complaints: denies History of Present Illness Tests reviewed: reviewed UA, PSA I have reviewed the previous health record information and history for this patient from Dr. Iraheta. I have reviewed and verified the staff HPI to be accurate for this encounter. Review of Systems PHQ Score Initial Depression Screen Score: 0 SCORE ROS - Provider Constitutional: denies weight loss, denies hot flashes. Eyes: denies eye problems. Gastrointestinal: denies nausea, denies vomiting. Cardiovascular: denies chest pain or angina. Integumentary: no dryness Musculoskeletal: denies musculoskeletal symptoms. ENMT: denies otolaryngeal symptoms. Respiratory: no shortness of breath. Heme/Lymph: denies easy bleeding tendency, denies easy bruising tendency. Psychiatric: no confusion, no anxiety. Genitourinary: See HPI. Physical Exam Vitals & Measurements T: 37 ???C(Oral) HR: 60(Peripheral) RR: 16 BP: 128/75 HT: 74 in HT: 189 cm WT: 107 kg WT: 235.894 lb BMI: 29.95 General Appearance: alert, no distress, well nourished, well developed male. Assessment/Plan 1. BPH with obstruction/lower urinary tract symptoms (N40.1: Benign prostatic hyperplasia with lower urinary tract symptoms) PSA 05/09/21 - 0.70 04/27/22 - 0.49 (Finasteride 0.98) 06/22/23 - 0.48 (Finasteride 0.96) 03/26/24 - 1.02 (Finasteride 2.04) No family hx of prostate ca. Taking Tamsulosin 0.4mg qd and Finasteride 5mg qd. Voiding q2-3hrs. Feels he empties. PSA has increased from prior. Discussed elevation is likely related to infection. Will continue to monitor level. -F/u in 6 mos w/ PSA -Cont Tamsulosin and Finasteride wo changes. Call for refills. 2. Epididymitis (N45.1: Epididymitis) UA today negative for blood and infection. Reports intermittent pain in his right testicle, ongoing for a few months. Not taking any pain medication for it. Takes antiinflammatories at baseline for other, unrelated pain. PE: R epididymitis. Recommended extended abx course. Advised pt to take with yogurt/probiotics daily to restore gut health. -Take Cipro 500mg bid x1 month. Rx sent to [facility]. Call if sxs do not improve after abx course. 3. Chronic prostatitis (N41.1: Chronic prostatitis) See #2. 4. Family history of kidney cancer (Z80.51: Family history of malignant neoplasm of kidney) Father. 5. 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 [1] Taking Cialis 20mg prn. Follow-up With When Contact Information ESEQUIEL RUSSELL, Natali Gonzalez, URL [facility] [address], [place] [address]- [phone] Additional Instructions: 6 mos w/ PSA Patient Education Epididymitis I, Katheryn Fernandez, personally scribed for Dr. Iraheta on 10/12/2024 16:13:25. . Documentation recorded by the scribe, Katheryn Fernandez, accurately reflects the services(s) I performed and decisions made by me. Authenticated by Dr. Iraheta on 10/12/2024 16:15:49. 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 Medications aspirin, 325 mg Cialis 20 mg Tab, 20 mg= 1 tab(s), Oral, Daily, 2 refills DilTIAZem (Eqv-Dilacor XR) 180 mg/24 hours oral capsule, extended release doxepin 25 mg Cap finasteride 5 mg Tab, 5 mg= 1 tab(s), Oral, Daily, 3 refills Flomax 0.4 mg Cap, 0.4 mg= 1 cap(s), Oral, Daily, 3 refills ropinirole, 1 mg, Oral Xarelto 20 mg oral tablet, 20 mg= 1 tab(s) Allergies No Known Medication Allergies Social History Alco (more content not included)... Normal [facility] Comment on above: Result Comment: Elec tronically Signed By: Natali IRAHETA MD\.br\Date and Time Signed: 10/12/24 16:15 EST\.br\Electronically Co-Signed By: Katheryn Fernandez.br\Date and Time Co-Signed: 10/12/24 16:14 EST XR KNEE LT 3 VWSon 4 XR KNEE LT 3 VWS XR KNEE LT 3 VWS XR KNEE LT 3 VWS Clinical history:Left knee pain, unspecified chronicity Comparison: None. Findings: Tricompartmental joint degenerative change. No joint effusion fracture or dislocation. Vascular calcifications are noted. Impression: Tricompartmental joint degenerative change. No acute process. Finalized by Ventura De Oliveira MD on 10/08/2024 1:54 PM Normal [facility] No Panel Informationon 08-13 Type of biopsy: tangential Informed consent: discussed and consent obtained Informed consent comment: The risks and benefits of the biopsy were discussed. Risks include but are not limited to bleeding, infection, scarring, pain, and nerve damage. An opportunity to ask questions prior to the procedure was permitted and all questions were answered. Patient was prepped and draped in usual sterile fashion: area cleansed with alcohol. Anesthesia: the lesion was anesthetized in a standard fashion Anesthetic: 1% lidocaine w/ epinephrine 1-100,000 buffered w/ 8.4% NaHCO3 Instrument used: DermaBlade Hemostasis achieved with: electrodesiccation Outcome: patient tolerated procedure well Outcome comment: The specimen was placed in a prelabeled formalin container to be sent for pathology Post-procedure details: sterile dressing applied and wound care instructions given Post-procedure details comment: Emphasized need to contact clinic for any signs of infection, uncontrollable bleeding, or complications. Dressing type: bandage Additional details: Photo taken Amount of lidocaine used: 1.0 cc [facility] Healthcare [facility] Healthcare Office Visiton 06-09-2024 Follow-up visit [id number] Oscar Escoto 1950 M Date Provider Department Center 06/09/2024 PatriceROXANNE AMIN [facility] Maik [facility] Family History Problem Relation Age of Onset Other Mother Coronary artery disease Mother Other Father Family Status - Relation Status Age at Mother Father Level of Service:55443 [place] OFFICE/OUTPATIENT ESTABLISHED LOW MDM 20 MIN Normal [facility] Lab Reportson 03-30-2024 Lab Reports [id number] Normal [facility] Lab Reports [id number] Normal [facility] Lab Reportson 03-29-2024 Lab Reports [id number] Normal [facility] Lab Reportson 03-27-2024 Lab Reports [id number] Normal [facility] Office Visiton 03-17-2024 Follow-up visit [id number] Oscar Escoto 1950 M Date Provider Department Center 03/17/2024 Frances-[facility] Family History Problem Relation Age of Onset Other Mother Coronary artery disease Mother Other Father Family Status - Relation Status Age at Mother Father Level of Service:62262 [place] OFFICE/OUTPATIENT ESTABLISHED LOW MDM 20 MIN Reason for Visit and Comments: Atrial Fibrillation [80] [facility] Superficial Wound Cultureon 03-18-2023 Superficial Wound Culture [...] RESISTANT TO ALL B-LACTAM DRUGS. PERFORMED BY: [place] [address] PATHOLOGIST PAINT SPECIALIST ISABELLA MCKEON M.D. [facility] Comment on above: Performed By: #### C USUP #### [address] ECHOCARDIO M/2D COMPLETEon 0 03-12-2023 ECHOCARDIO M/2D COMPLETE Patient: OSCAR ESCOTO Exam Date: 03/12/2023 : 1950 Gender:M Ordering : DR NOTRH CHAPIN . Admission #: [id number] Family : ROXANNE TREVIÑOCKO Order #: [id number] CLICK HERE TO VIEW EXAM ECHOCARDIOGRAM REPORT [...] Pressure: 65.50 ml, 65.50 ml Dictated by: Enrrique Solorio M.D. on 03/12/2023 at 18:38 Approved by: Enrrique Solorio M.D. on 03/12/2023 at 18:41 Normal [facility] US CAROTID ART BILon 04-18-2 023 [...] carotid arteries Spectral Doppler US Thresholds (Reference: Nneka EG, et al. Radiology 2000; 214:247-252) Stenosis (%) PSV (cm/sec) VICA/VCCA 0-49 <150 <2.5 50-69 150-225 2.5-4.0 >70 >225 >4.0 Electronically authenticated by: MARÍA BRYSON Date: 2023-03-12 15:01 Normal [facility] CBC AUTO DIFFon 03-06-2023 BASO # 0.1 103/ul Normal 0.0-0.1 [facility] Comment on above: Performed By: #### C BC #### [facility] Laboratory [address] [place] [address] Dr. Sanjuana Kasper Basophils/100 WBC (Bld) 0.9 % Normal 0.2-2.0 [facility] Comment on above: Performed By: #### C BC #### [facility] [address] [place] [address] Dr. Sanjuana Kasper EO # 0.3 103/ul Normal 0.0-0.7 [facility] Comment on above: Performed By: #### C BC #### [facility] [address] [place] [address] Dr. Sanjuana Kasper Eosinophils/100 WBC (Bld) 5.0 % Normal 0.9-7.0 [facility] Comment on above: Performed By: #### C BC #### [facility] [address] [place] [address] Dr. Sanjuana Kasper Erythrocyte distribution width (RBC) [Ratio] 13.5 % Normal 11.0-15.0 [facility] Comment on above: Performed By: #### C BC #### [facility] [address] [place] [address] Dr. Sanjuana Kasper Hematocrit (Bld) [Volume fraction] 41.9 % Critically low 42.0-54.0 [facility] Comment on above: Performed By: #### C BC #### [facility] [address] [place] [address] Dr. Sanjuana Kasper Hemoglobin (Bld) [Mass/Vol] 13.9 g/dL Critically low 14.0-18.0 [facility] Comment on above: Performed By: #### C BC #### [facility] [address] [place] [address] Dr. Sanjuana Kasper IG # 0.02 10e3/ul Normal 0.00-0.03 [facility] Comment on above: Performed By: #### C BC #### [facility] [address] [place] [address] Dr. Sanjuana Kasper IG % 0.3 % Normal 0.0-0.5 [facility] Comment on above: Performed By: #### C BC #### [facility] [address] [place] [address] Dr. Sanjuana Kasper LYMPH # 1.4 103/ul Normal 1.2-3.8 [facility] Comment on above: Performed By: #### C BC #### [facility] [address] [place] [address] Dr. Sanjuana Kasper Lymphocytes/100 WBC (Bld) 23.8 % Normal 20.5-60.0 [facility] Comment on above: Performed By: #### C BC #### [facility] [address] [place] [address] Dr. Sanjuana Kasper MANUAL DIFF REQ NO Normal [facility] Comment on above: Performed By: #### C BC #### [facility] [address] [place] [address] Dr. Sanjuana Kasper MCH (RBC) [Entitic mass] 29.5 pg Normal 25.9-34.0 [facility] Comment on above: Performed By: #### C BC #### [facility] [address] [place] [address] Dr. Sanjuana Kasper MCHC (RBC) [Mass/Vol] 33.2 g/dL Normal 29.9-35.2 [facility] Comment on above: Performed By: #### C BC #### [facility] [address] [address] [address] Sanjuana Kasper MCV (RBC) [Entitic vol] 89.0 fL Normal 80.0-94.0 [facility] Comment on above: Performed By: #### C BC #### [facility] [address] [place] [address] Dr. Sanjuana Kasper MONO # 0.4 103/ul Normal 0.3-0.8 [facility] Comment on above: Performed By: #### C BC #### [facility] [address] [place] [address] Dr. Sanjuana Kasper Monocytes/100 WBC (Bld) 7.1 % Normal 1.7-12.0 [facility] Comment on above: Performed By: #### C BC #### [facility] [address] [place] [address] Dr. Sanjuana Kasper NEUT # 3.7 103/ul Normal 1.4-6.5 [facility] Comment on above: Performed By: #### C BC #### [facility] [address] [place] [address] Dr. Sanjuana Kasper Neutrophils/100 WBC (Bld) 62.9 % Normal 43.0-75.0 [facility] Comment on above: Performed By: #### C BC #### [facility] [address] [place] [address] Dr. Sanjuana Kasper Platelet mean volume (Bld) [Entitic vol] 10.6 fL Normal 9.5-13.5 [facility] Comment on above: Performed By: #### C BC #### [facility] [address] [place] [address] Dr. Sanjuana Kasper PLT 259 103/ul Normal 150-450 [facility] Comment on above: Performed By: #### C BC #### [facility] [address] [place] [address] Dr. Sanjuana Kasper RBC 4.71 106/ul Normal 4.70-6.10 [facility] Comment on above: Performed By: #### C BC #### [facility] [address] [place] [address] Dr. Sanjuana Kasper WBC 5.8 103/ul Normal 4.0-11.0 [facility] Comment on above: Performed By: #### C BC #### [facility] [address] [address] [address] Sanjuana Kasper GLYCOHEMOGLOBIN A1Con 2022 ADA RECOMMENDATION SEE BELOW Normal The [facility] Comment on above: Result Comment: ADA RECOMMENDED LIMIT 4.0 - 6.0 ADA THERAPEUTIC TARGET < 7.0 ACTION SUGGESTED > 7.0 Performed By: #### A 1C #### [facility] [address] [address] [address] Sanjuana Kasper Glucose [Mass/Vol] 108 mg/dL Normal [facility] Comment on above: Performed By: #### A 1C #### [facility] [address] [place] [address] Dr. Sanjuana Kasper HbA1c (Bld) [Mass fraction] 5.4 % Normal 4.5-6.2 [facility] Comment on above: Performed By: #### A 1C #### [facility] [address] [place] [address] Dr. Sanjuana Kasper LIPID PROFILEon 03-06-2023 CHOL-HDL RATIO NORM SEE BELOW Normal [facility] Comment on above: Result Comment: 3.3 - 4.4 LOW RISK 4.4 - 7.1 AVERAGE RISK 7.1 - 11.0 MODERATE RISK >11.0 HIGH RISK Performed By: #### T SH, LIPID, BMP, LIVER #### [facility] [address] [address] [address] Sanjuana Kasper Cholesterol [Mass/Vol] 192 mg/dL Normal <=200 [facility] Comment on above: Performed By: #### T SH, LIPID, BMP, LIVER #### [facility] [address] [place] [address] Dr. Sanjuana Kasper Cholesterol in HDL [Mass/Vol] 61 mg/dL Critically high 40-60 [facility] Comment on above: Performed By: #### T SH, LIPID, BMP, LIVER #### [facility] [address] [place] [address] Dr. Sanjuana Kasper Cholesterol in LDL [Mass/Vol] 122.2 mg/dL Normal [facility] Comment on above: Performed By: #### T SH, LIPID, BMP, LIVER #### [facility] [address] [address] [address] Sanjuana Kasper Cholesterol.total/Cho lesterol in HDL [Mass ratio] 3.1 {ratio} Normal [facility] Comment on above: Performed By: #### T SH, LIPID, BMP, LIVER #### [facility] [address] [address] [address] Sanjuana Kasper HDL NORMAL > or = 60 mg/dl - LO W CARDIOVASCULAR RISK <40 mg/dl - HIGH CARDIOVASCULAR RISK Normal [facility] Comment on above: Performed By: #### T SH, LIPID, BMP, LIVER #### [facility] [address] [address] [address] Sanjuana Kasper LDL CALC NORMAL SEE BELOW Normal [facility] Comment on above: Result Comment: <100 mg/dl OPTIMAL 100 - 129 mg/dl NEAR OR ABOVE OPTIMAL 130 - 159 mg/dl BORDERLINE HIGH 160 - 189 mg/dl HIGH >190 mg/dl VERY HIGH Performed By: #### T SH, LIPID, BMP, LIVER #### [facility] [address] [address] [address] Sanjuana Kasper Triglyceride [Mass/Vol] 44 mg/dL Normal <=150 [facility] Comment on above: Performed By: #### T SH, LIPID, BMP, LIVER #### [facility] [address] [address] [address] Sanjuana Kasper VLDL CALC 8.8 mg/dL Normal [facility] Comment on above: Performed By: #### T SH, LIPID, BMP, LIVER #### [facility] [address] [address] [address] Sanjuana Kasper LIVER PROFILEon 03-06-2023 Albumin [Mass/Vol] 3.6 g/dL Normal 3.4-5.0 [facility] Comment on above: Performed By: #### T SH, LIPID, BMP, LIVER ####[facility] [address] [address]Dr. Sanjuana Kasper Albumin/Globulin [Mass ratio] 1.0 {ratio} Normal [facility] Comment on above: Performed By: #### T SH, LIPID, BMP, LIVER ####[facility] [address] [address]Dr. Sanjuana Kasepr ALP [Catalytic activity/Vol] 91 U/L Normal 46-116 [facility] Comment on above: Performed By: #### T SH, LIPID, BMP, LIVER ####[facility] [address] [address]Dr. Sanjuana Kasper ALT [Catalytic activity/Vol] 28 U/L Normal 16-63 [facility] Comment on above: Performed By: #### T SH, LIPID, BMP, LIVER ####[facility] [address] [address]Dr. Sanjuana Kasper AST [Catalytic activity/Vol] 16 U/L Normal 15-37 [facility] Comment on above: Performed By: #### T SH, LIPID, BMP, LIVER ####[facility] [address] [address]Dr. Sanjuana Kasper BILI, CONJUGATED 0.1 mg/dL Normal 0.0-0.2 [facility] Comment on above: Performed By: #### T SH, LIPID, BMP, LIVER ####[facility] [address] [address]Dr. Sanjuana Kasper Bilirubin [Mass/Vol] 0.4 mg/dL Normal 0.2-1.0 [facility] Comment on above: Performed By: #### T SH, LIPID, BMP, LIVER ####[facility] [address] [address]Dr. Sanjuana Kasper Globulin (S) [Mass/Vol] 3.6 g/dL Normal [facility] Comment on above: Performed By: #### T SH, LIPID, BMP, LIVER ####[facility] [address] [address]Dr. Sanjuana Kasper Protein [Mass/Vol] 7.2 g/dL Normal 6.4-8.2 [facility] Comment on above: Performed By: #### T SH, LIPID, BMP, LIVER ####[facility] [address] [address]Dr. Sanjuana Kasper PROF CHEM 8 (BAS METB)on Anion gap [Moles/Vol] 12.2 mmol/L Normal [facility] Comment on above: Performed By: #### T SH, LIPID, BMP, LIVER ####[facility] [address] [address]Dr. Sanjuana Kasper Calcium [Mass/Vol] 9.1 mg/dL Normal 8.5-10.1 [facility] Comment on above: Performed By: #### T SH, LIPID, BMP, LIVER ####[facility] [address] [place], [place] [address]Dr. Sanjuana Kasper Chloride [Moles/Vol] 106 mmol/L Normal 98-107 [facility] Comment on above: Performed By: #### T SH, LIPID, BMP, LIVER ####[facility] [address] [place], [place] [address]Dr. Sanjuana Kasper CO2 [Moles/Vol] 26.9 mmol/L Normal 21.0-32.0 [facility] Comment on above: Performed By: #### T SH, LIPID, BMP, LIVER ####[facility] [address] [place], [place] [address]Dr. Sanjuana Kasper Creatinine [Mass/Vol] 0.98 mg/dL Normal 0.70-1.30 [facility] Comment on above: Performed By: #### T SH, LIPID, BMP, LIVER ####[facility] [address] [address]Dr. Sanjuana Kasper EGFR-AF CITIZEN [place] >60 Normal >=60 [facility] Comment on above: Performed By: #### T SH, LIPID, BMP, LIVER ####[facility] [address] [place], [place] [address]Dr. Sanjuana Kasper EGFR-NON AF CITIZEN OF [place] >60 Normal >=60 [facility] Comment on above: Performed By: #### T SH, LIPID, BMP, LIVER ####[facility] [address] [place], [place] [address]Oz. Sanjuana Kasper Glucose [Mass/Vol] 94 mg/dL Normal 74-106 [facility] Comment on above: Performed By: #### T SH, LIPID, BMP, LIVER ####[facility] [address] [place], [place] [address]Tq. Sanjuana Kasper Potassium [Moles/Vol] 4.1 mmol/L Normal 3.5-5.1 [facility] Comment on above: Performed By: #### T SH, LIPID, BMP, LIVER ####[facility] [address] [id number]. Carlayazmin Kasper Sodium [Moles/Vol] 141 mmol/L Normal 136-145 [facility] Comment on above: Performed By: #### T SH, LIPID, BMP, LIVER ####[facility] [address] [id number]. Sanjuana Kasper Urea nitrogen [Mass/Vol] 17.0 mg/dL Normal 7.0-18.0 [facility] Comment on above: Performed By: #### T SH, LIPID, BMP, LIVER ####[facility] [address] [id number]. Sanjuana Kasper Urea nitrogen/Creatinine [Mass ratio] 17.3 mg/mg Normal [facility] Comment on above: Performed By: #### T SH, LIPID, BMP, LIVER ####[facility] [address] [id number]. Sanjuana Kasper TSHon 03-06-2023 TSH 1.951 uIU/mL Normal 0.358-3.740 [facility] Comment on above: Performed By: #### T SH, LIPID, BMP, LIVER #### [facility] [address] [place], [place] [address] FOOT LT WO [...] RAZ MATOS Date: 2022-12-20 14:53 Normal [facility] POINT OF CARE GLUCOSEon 11-0 Glucose [Mass/Vol] 94 mg/dL Normal 74-106 [facility] Comment on above: Performed By: #### P OCGLUC #### [facility] [address] [place] [address] Dr. Sanjuana Kasper XR FOOT LT 2Von [...] MARÍA BRYSON Date: 2022-09-27 18:28 Normal [facility]26 SARS-CoV-2 (COVID-19) RNA DAISY+probe Ql (Unsp spec) Not detected Normal NOT DETECTED [facility] Comment on above: Result Comment: This test is not yet approved or cleared by the [place] FDA. When there are no FDA-approved or cleared tests available, and other criteria are met, FDA can make tests available under an emergency access mechanism called an Emergency Use Authorization (EUA). The EUA for this test is supported by the Bleach Boiler Puller of Health and Human Service's (HHS's) declaration [...] with SARS-CoV-2. Performed By: #### C VDTB ####[facility] [address] [place], [place] [address]Dr. Sanjuana Kasper PROF CHEM 8 (BAS METB)on Anion gap [Moles/Vol] 11.6 mmol/L Normal [facility] Comment on above: Performed By: #### B MP ####[facility] [address] [place], [place] [address]Dr. Sanjuana Kasper Calcium [Mass/Vol] 8.6 mg/dL Normal 8.5-10.1 [facility] Comment on above: Performed By: #### B MP ####[facility] [address] [place], [place] [address]Dr. Sanjuana Kasper Chloride [Moles/Vol] 107 mmol/L Normal 98-107 [facility] Comment on above: Performed By: #### B MP ####[facility] [address] [place], [place] [address]Dr. Sanjuana Kasper CO2 [Moles/Vol] 26.2 mmol/L Normal 21.0-32.0 [facility] Comment on above: Performed By: #### B MP ####[facility] [address] [place], [place] [address]Dr. Sanjuana Kasper Creatinine [Mass/Vol] 1.28 mg/dL Normal 0.70-1.30 [facility] Comment on above: Performed By: #### B MP ####[facility] [address] [place], [place] [address]Dr. Sanjuana Kasper EGFR-AF CITIZEN OF [place] >60 Normal >=60 [facility] Comment on above: Performed By: #### B MP ####[facility] [address] [place], [place] [address]Dr. Sanjuana Kasper EGFR-NON AF CITIZEN OF [place] 56 mL/min/1.73m2 Critically low >=60 [facility] Comment on above: Performed By: #### B MP ####[facility] [address] [address]Dr. Sanjuana Kasper Glucose [Mass/Vol] 121 mg/dL Critically high 74-106 [facility] Comment on above: Performed By: #### B MP ####[facility] [address] [address]Dr. Sanjuana Kasper Potassium [Moles/Vol] 3.8 mmol/L Normal 3.5-5.1 [facility] Comment on above: Performed By: #### B MP ####[facility] [address] [address]Dr. Sanjuana Kasper Sodium [Moles/Vol] 141 mmol/L Normal 136-145 [facility] Comment on above: Performed By: #### B MP ####[facility] [address] [address]Dr. Sanjuana Kasper Urea nitrogen [Mass/Vol] 24.0 mg/dL Critically high 7.0-18.0 [facility] Comment on above: Performed By: #### B MP ####[facility] [address] [place], [place] [address]Dr. Sanjuana Kasper Urea nitrogen/Creatinine [Mass ratio] 18.8 mg/mg Normal [facility] Comment on above: Performed By: #### B MP ####[facility] [address] [address]Dr. Sanjuana Kasper PROTIMEon 09-21-2022 INR Coag (PPP) [Relative time] 1.05 {INR} Normal [facility] Comment on above: Performed By: #### P TT, PT ####[facility] [address] [place], [place] [address]Dr. Sanjuana Kasper INR GUIDELINES SEE BELOW Normal [facility] Comment on above: Result Comment: VERONICA RED INR: 2.0 - 3.0 CONDITIONS NOT LISTED BELOW 2.5 - 3.5 FOR PROSTHETIC HEART VALVE REPLACEMENT 2.5 - 3.5 RECURRENT THROMBOSIS Performed By: #### P TT, PT ####[facility] [address] [place], [place] [address]Oi. Sanjuana Kasper PT Coag (PPP) [Time] 11.3 s Normal 9.0-11.6 [facility] Comment on above: Performed By: #### P TT, PT ####[facility] [address] [place], [place] [address]Xo. Sanjuana Kasper PTTon 09-21-2022 aPTT Coag (Bld) [Time] 30.0 s Normal 22.3-36.2 [facility] Comment on above: Performed By: #### P TT, PT ####[facility] [address] [id number]. Sanjuana Kasper XR FOOT MOISES MIN 3 [...] MARÍA BRYSON Date: 2022-08-01 17:51 Normal [facility] Covid-19 PCR (CVDTBH)on 05-25 SARS-CoV-2 (COVID-19) RNA DAISY+probe Ql (Unsp spec) Not detected Normal NOT DETECTED [facility] Comment on above: Result Comment: This test is not yet approved or cleared by the [place] FDA. When there are no FDA-approved or cleared tests available, and other criteria are met, FDA can make tests available under an emergency access mechanism called an Emergency Use Authorization (EUA). The EUA for this test is supported by the Bleach Boiler Puller of Health and Human Service's (HHS's) declaration [...] SARS-CoV-2. Performed By: #### C VDTB #### [facility] [address] [place] [address] Dr. Sanjuana Medina 04-20-2022 L -- ---- Specimen: [id number] Received: 04/20/22 Status: LENIN Trejo Num: [id number] Spec Type: Surgical Subm Dr: Miguel Astorga DO Tissues: A Debridement-Skin/Other Than Skin (SCALP) Procedures: HE Stain, Gross/Micro L3 ---- Patient Age/Sex Location Account Attending Physician ---- Oscar Escoto 72/M [place] [id number] Miguel Astorga DO ---- SPEC NUM: [id number] RECD: 04/20/22 STATUS: LENIN TREJO NUM: [id number] DEMARCUS: 04/20/22- SUBM DR: Miguel Astorga DO ENTERED: 04/20/[address]: SPEC TYPE: Surgical DEPT: S ORDERED: [...] thin rim of owusu unremarkable appearing skin. Plant Safety Engineer sections are submitted in one cassette labeled A1. Type of Fixative: 10% Neutral Buffered Formalin (NORM/ROHIT) Microscopic Description One glass slide with H E stained material has been examined. The microscopic findings support the above pathologic diagnosis. ---- Specimen: [id number] Received: 04/20/22 Status: LENIN Trejo Num: [id number] Spec Type: Surgical Subm Dr: Miguel Astorga DO Tissues: A Debridement-Skin/Other Than Skin (SCALP) Procedures: HE Tamara, Cayetano/Jeffery L3 ---- Patient: Oscar Escoto [id number] (Continued) ---- Specimen: [id number] Received: 04/20/22 (Continued) Signed (signature on file) Favio Chong MD 04/24/222025 ---- Specimen: [id number] Received: 04/20/22 Status: LENIN Trejo Num: [id number] Spec Type: Surgical Subm Dr: Miguel Astorga DO Tissues: A Debridement-Skin/Other Than Skin (SCALP) Procedures: HE Stain, Gross/Micro L3 ---- Patient: TigistOscar Hines [id number] (Continued) ---- Specimen: Received: 04/20/22 (Continued) CPT Codes 40176 ---- ---- Specimen: Received: 04/20/22 Status: LENIN Trejo Num: [id number] Spec Type: Surgical Subm Dr: Miguel Astorga DO Tissues: A Debridement-Skin/Other Than Skin (SCALP) Procedures: NATALIA Stain, Gross/Micro L3 ---- Patient: Oscar Escoto [id number] (Continued) ---- Signed (signature on file) Favio Chong MD 04/24/222025 Normal [facility] Basic Metabolic Panelon 03-26 Calcium [Mass/Vol] 9.1 mg/dL Normal 8.2-10.2 [facility] Comment on above: Result Comment: PERF ORMED BY: [place] [address] PATHOLOGIST PAINT SPECIALIST ISABELLA MCKEON M.D. Performed By: #### B MP, CBC #### [facility] [address] [place] [address] Chloride [Moles/Vol] 103 mmol/L Normal 95-114 [facility] Comment on above: Performed By: #### B MP, CBC #### [facility] [address] [place] [address] CO2 [Moles/Vol] 25.0 mmol/L Normal 22.0-30.0 [facility] Comment on above: Performed By: #### B MP, CBC #### [facility] [address] [place] [address] [place] Creatinine [Mass/Vol] 1.13 mg/dL Normal 0.64-1.27 [facility] Comment on above: Performed By: #### B MP, CBC #### [facility] [address] Estimated GFR ( Ariane > 60 Normal [facility] Comment on above: Result Comment: GFR estimated reference range: According to KDOQI guidelines, <60 ml/min/1.73m2 is sufficient to diagnose a patient with chronic kidney disease. Performed By: #### B MP, CBC #### [address] Estimated GFR (Non- Am > 60 Normal [facility] Comment on above: Performed By: #### B MP, CBC #### [address] Glucose [Mass/Vol] 102 mg/dL High 70-100 [facility] Comment on above: Result Comment: [facility] Glucose Reference Range is dependent on time and content of last meal. Glucose of more than 200 mg/dL in a nonstressed, ambulatory subject supports the diagnosis of Diabetes Mellitus. ADA recommended reference range Performed By: #### B MP, CBC #### [address] Potassium [Moles/Vol] 4.2 mmol/L Normal 3.5-5.1 [facility] Comment on above: Performed By: #### B MP, CBC #### [address] Sodium [Moles/Vol] 137 mmol/L Normal 136-146 [facility] Comment on above: Performed By: #### B MP, CBC #### [address] Urea nitrogen [Mass/Vol] 18 mg/dL Normal 9-23 [facility] Comment on above: Performed By: #### B MP, CBC #### [place] [address] [place] Basophils Auto (Bld) [#/Vol] Ordered By: Miguel Astorga on 04-19-2022 Basophils (Bld) [#/Vol] 0.1 10*3/uL 0.0-0.2 [facility] Basophils/100 WBC Auto (Bld) Ordered By: Miguel Astorga on 04-19-2022 Basophils/100 WBC (Bld) 0.9 % [facility] Blood hemoglobin measurement (mass/volume)Ordered By: Miguel Astorga on 04-19-2022 Hemoglobin (Bld) [Mass/Vol] 14.3 g/dL 13.0-17.0 [facility] Blood leukocytes automated c ount (number/volume)Ordered By: Miguel Astorga on 04-19-2022 WBC (Bld) [#/Vol] 5.5 10*3/uL 4.5-11.0 [facility] COVID-19 FRon 04-19-2022 SARS-CoV-2 (COVID-19) RNA DAISY+probe Ql (Unsp spec) Negative Normal Negative [facility] Comment on above: Order Comment: Comme nt For surgery tomorrow Healthcare Worker?: N Result Comment: Testing for SARS-CoV-2 by RT-PCR This test was developed and its performance characteristics determined by [employer] and validated at the [facility]. This test has not been FDA cleared [...] is terminated or revoked sooner. PERFORMED BY: [place] [address] PATHOLOGIST PAINT SPECIALIST ISABELLA MCKEON M.D. Performed By: #### C OVID 19 [facility] #### [address] COVID-19 Positive/NegativeOr dered By: Miguel Astorga on 04-19-2022 SARS-CoV-2 (COVID-19) N gene DAISY+probe Ql (Resp) Negative Negative [facility] Comment on above: Testing for SARS-CoV -2 by RT-PCR This test was developed and its performance characteristics determined by [employer]) and validated at the [facility]. This test has not been FDA cleared [...] Basophils (Bld) [#/Vol] 0.1 10*3/uL Normal 0.0-0.2 [facility] Comment on above: Result Comment: PERF ORMED BY: [place] [address] PATHOLOGIST PAINT SPECIALIST ISABELLA MCKEON M.D. Performed By: #### B MP, CBC #### [address] Basophils/100 WBC (Bld) 0.9 % Normal . [facility] Comment on above: Performed By: #### B MP, CBC #### [place] [address] [place] Eosinophils (Bld) [#/Vol] 0.2 10*3/uL Normal 0.0-0.45 [facility] Comment on above: Performed By: #### B MP, CBC #### [address] Eosinophils/100 WBC (Bld) 3.9 % Normal . [facility] Comment on above: Performed By: #### B MP, CBC #### [address] Erythrocyte distribution width (RBC) [Ratio] 14.1 % Normal 12.0-14.8 [facility] Comment on above: Performed By: #### B MP, CBC #### [facility] [address] Hematocrit (Bld) [Volume fraction] 43.0 % Normal 38.8-50.0 [facility] Comment on above: Performed By: #### B MP, CBC #### [address] Hemoglobin (Bld) [Mass/Vol] 14.3 g/dL Normal 13.0-17.0 [facility] Comment on above: Performed By: #### B MP, CBC #### [address] Lymphocytes (Bld) [#/Vol] 1.4 10*3/uL Normal 1.00-4.8 [facility] Comment on above: Performed By: #### B MP, CBC #### [address] Lymphocytes/100 WBC (Bld) 25.7 % Normal . [facility] Comment on above: Performed By: #### B MP, CBC #### [address] MCH (RBC) [Entitic mass] 29.9 pg Normal 27.5-35.2 [facility] Comment on above: Performed By: #### B MP, CBC #### [address] MCV (RBC) [Entitic vol] 89.8 fL Normal 83.5-101 [facility] Comment on above: Performed By: #### B MP, CBC #### [address] Mean Corpuscular HGB Conc 33.3 g/dL Normal 32.5-35.6 [facility] Comment on above: Performed By: #### B MP, CBC #### [address] Monocytes (Bld) [#/Vol] 0.4 10*3/uL Normal 0.0-0.8 [facility] Comment on above: Performed By: #### B MP, CBC #### [facility] [address] [place] [address] [place] Monocytes/100 WBC (Bld) 6.9 % Normal . [facility] Comment on above: Performed By: #### B MP, CBC #### [facility] [address] [place] [address] [place] Neutrophils (Bld) [#/Vol] 3.5 10*3/uL Normal 1.8-7.7 [facility] Comment on above: Performed By: #### B MP, CBC #### [facility] [address] Neutrophils/100 WBC (Bld) 62.6 % Normal . [facility] Comment on above: Performed By: #### B MP, CBC #### [facility] [address] [place] [address] [place] Nucleated RBC/100 WBC (Bld) [Ratio] 0.1 % Normal 0-0.5 [facility] Comment on above: Performed By: #### B MP, CBC #### [facility] [address] [place] [address] [place] Platelet mean volume (Bld) [Entitic vol] 8.9 fL Normal 6.6-10.1 [facility] Comment on above: Performed By: #### B MP, CBC #### [facility] [address] [place] [address] [place] Platelets (Bld) [#/Vol] 260 10*3/uL Normal 150-450 [facility] Comment on above: Performed By: #### B MP, CBC #### [facility] [address] [place] [address] [place] RBC (Bld) [#/Vol] 4.79 10*6/uL Normal 3.90-5.60 [facility] Comment on above: Performed By: #### B MP, CBC #### [facility] [address] [place] [address] [place] WBC (Bld) [#/Vol] 5.5 10*3/uL Normal 4.5-11.0 [facility] Comment on above: Performed By: #### B MP, CBC #### [facility] [address] [place] [address] [place] Creatinine and Glomerular fi ltration rate.predicted panel (S/P/Bld)Ordered By: Miguel Astorga on 04-19-2022 Creatinine [Mass/Vol] 1.13 mg/dL 0.64-1.27 [facility] ECG 12 lead ECGon 04-19-2022 ECG 12 lead ECG [facility] [address] [place] [address] Electrocardiograph Report Signed Patient: Oscar Escoto MR#: [id number] : 1950 Acct:[id number] Age/Sex: 72 / M ADM Date: 04/19/22 Loc: Room: Type: [facility] Attending Dr: Miguel Astorga DO Ordering Provider: [...] No previous ECGs available Confirmed by SUZIE GARZA MD ([id number]) on 04/20/2022 3:16:43 PM Referred By: TAVARES ASTORGA Electronically Signed By:SUZIE GARZA MD Transcribed By: MUS Signed By Suzie Garza MD 0 04/20/22 1516 Normal [facility] Eosinophils Auto (Bld) [#/Vo l]Ordered By: Miguel Astorga on 04-19-2022 Eosinophils (Bld) [#/Vol] 0.2 10*3/uL 0.0-0.45 [facility] Eosinophils/100 WBC Auto (Bl d)Ordered By: Miguel Astorga on 04-19-2022 Eosinophils/100 WBC (Bld) 3.9 % [facility] Erythrocyte distribution wid th Auto (RBC) [Ratio]Ordered By: Miguel Astorga on 04-19-2022 Erythrocyte distribution width (RBC) [Ratio] 14.1 % 12.0-14.8 [facility] Estimated glomerular filtrat ion rate (GFR) non- AmericanOrdered By: Miguel Astorga on 04-19-2022 GFR/1.73 sq M.predicted among non-blacks MDRD (S/P/Bld) [Vol rate/Area] > 60 mL/Min [facility] Hematocrit Auto (Bld) [Volum e fraction]Ordered By: Miguel Astorga on 04-19-2022 Hematocrit (Bld) [Volume fraction] 43.0 % 38.8-50.0 [facility] Laboratory - Hematology and Cell countsOrdered By: Miguel Astorga on 04-19-2022 Nucleated RBC/100 WBC (Bld) [Ratio] 0.1 % 0-0.5 [facility] Lymphocytes Auto (Bld) [#/Vo l]Ordered By: Miguel Astorga on 04-19-2022 Lymphocytes (Bld) [#/Vol] 1.4 10*3/uL 1.00-4.8 [facility] Lymphocytes/100 WBC Auto (Bl d)Ordered By: Miguel Astorga on 04-19-2022 Lymphocytes/100 WBC (Bld) 25.7 % [facility] MCH Auto (RBC) [Entitic mass ]Ordered By: Miguel Astorga on 04-19-2022 MCH (RBC) [Entitic mass] 29.9 pg 27.5-35.2 [facility] MCHC Auto (RBC) [Mass/Vol]Or dered By: Miguel Astorga on 04-19-2022 MCHC (RBC) [Mass/Vol] 33.3 g/dL 32.5-35.6 [facility] MCV Auto (RBC) [Entitic vol] Ordered By: Miguel Astorga on 04-19-2022 MCV (RBC) [Entitic vol] 89.8 fL 83.5-101 [facility] Monocytes Auto (Bld) [#/Vol] Ordered By: Miguel Astorga on 04-19-2022 Monocytes (Bld) [#/Vol] 0.4 10*3/uL 0.0-0.8 [facility] Monocytes/100 WBC Auto (Bld) Ordered By: Miguel Astorga on 04-19-2022 Monocytes/100 WBC (Bld) 6.9 % [facility] Neutrophils Auto (Bld) [#/Vo l]Ordered By: Miguel Astorga on 04-19-2022 Neutrophils (Bld) [#/Vol] 3.5 10*3/uL 1.8-7.7 [facility] Neutrophils/100 WBC Auto (Bl d)Ordered By: Miguel Astorga on 04-19-2022 Neutrophils/100 WBC (Bld) 62.6 % [facility] No Panel InformationOrdered By: Miguel Astorga on 04-19-2022 Estimated GFR () > 60 mL/Min [facility] Comment on above: GFR estimated refere nce range: According to KDOQI guidelines, <60 ml/min/1.73m2 is sufficient to diagnose a patient with chronic kidney disease. Pharmacy Creatinine Clearance (Chem N/A [facility] Platelet mean volume Auto (B ld) [Entitic vol]Ordered By: Miguel Astorga on 04-19-2022 Platelet mean volume (Bld) [Entitic vol] 8.9 fL 6.6-10.1 [facility] Platelets Auto (Bld) [#/Vol] Ordered By: Miguel Astorga on 04-19-2022 Platelets (Bld) [#/Vol] 260 10*3/uL 150-450 [facility] RBC Auto (Bld) [#/Vol]Ordere d By: Miguel Astorga on 04-19-2022 RBC (Bld) [#/Vol] 4.79 10*6/uL 3.90-5.60 [facility] Serum or plasma calcium dieter urement (mass/volume)Ordered By: Miguel Astorga on 04-19-2022 Calcium [Mass/Vol] 9.1 mg/dL 8.2-10.2 [facility] Serum or plasma chloride shashank surement (moles/volume)Ordered By: Miguel Astorga on 04-19-2022 Chloride [Moles/Vol] 103 mmol/L 95-114 [facility] Serum or plasma glucose dieter urement (mass/volume)Ordered By: Miguel Astorga on 04-19-2022 Glucose [Mass/Vol] 102 mg/dL 70-100 [facility] Comment on above: ADA recommended refe rence range Random Glucose Reference Range is dependent on time and content of last meal. Glucose of more than 200 mg/dL in a nonstressed, ambulatory subject supports the diagnosis of Diabetes Mellitus. Serum or plasma potassium me asurement (moles/volume)Ordered By: Miguel Astorga on 04-19-2022 Potassium [Moles/Vol] 4.2 mmol/L 3.5-5.1 [facility] Serum or plasma sodium measu rement (moles/volume)Ordered By: Miguel Astorga on 04-19-2022 Sodium [Moles/Vol] 137 mmol/L 136-146 [facility] Serum or plasma total carbon dioxide measurement (moles/volume)Ordered By: Miguel Astorga on 04-19-2022 CO2 [Moles/Vol] 25.0 mmol/L 22.0-30.0 [facility] Serum or plasma urea nitroge n measurement (mass/volume)Ordered By: Miguel Astorga on 04-19-2022 Urea nitrogen [Mass/Vol] 18 mg/dL 9-23 [facility] Vital Signs Date Time Vital Sign Value Performing Clinician Facility 02-02-2025 15:24-0400 Body height 188 cm Bud SUBRAMANIAN Work Phone: [facility] 02-02-2025 15:24-0400 Body mass index (BMI) [Ratio] 31.97 kg/m2 Bud SUBRAMANIAN Work Phone: [facility] 02-02-2025 15:24-0400 Body weight 112.95 kg Bud SUBRAMANIAN Work Phone: [facility] 10-12-2024 15:33-0500 Blood Pressure Location Natali ESEQUIEL [facility] 10-12-2024 15:33-0500 Body temperature 98.6 [degF] Natali IRAHETA [facility] 10-12-2024 15:33-0500 Diastolic blood pressure 75 mm[Hg] Natali IRAHETA [facility] 10-12-2024 15:33-0500 Heart rate 60 /min Natali IRAHETA [facility] 10-12-2024 15:33-0500 Respiratory rate 16 /min Natali IRAHETA [facility] 10-12-2024 15:33-0500 Systolic blood pressure 128 mm[Hg] Natali IRAHETA [facility] 10-07-2024 13:39-0500 Body height 188 cm Cecilia Verhoff [facility]-C [facility] 10-07-2024 13:39-0500 Body mass index (BMI) [Ratio] 31.33 kg/m2 Cecilia Verhoff PA-C [facility] 10-07-2024 13:39-0500 Body weight 110.68 kg Cecilia Verhoff PA-C [facility] 10-07-2024 13:39-0500 Diastolic blood pressure 68 mm[Hg] Cecilia [facility]hoff [facility]-C [facility] 10-07-2024 13:39-0500 Heart rate 66 /min Cecilia Verhoff PA-C [facility] 10-07-2024 13:39-0500 SaO2% (BldA) [Mass fraction] 94 % Cecilia Verhoff PA-C [facility] 10-07-2024 13:39-0500 Systolic blood pressure 133 mm[Hg] Cecilia Manueltin NAVARRO Work Phone: [facility] [employer] [facility] 06-24-2023 15:47-0400 Blood Pressure Location Natali IRAHETA [facility] 06-24-2023 15:47-0400 Diastolic blood pressure 80 mm[Hg] Natali IRAHETA [facility] 06-24-2023 15:47-0400 Heart rate 68 /min Natali IRAHETA [facility] 06-24-2023 15:47-0400 Respiratory rate 16 /min Natali IRAHETA [facility] 06-24-2023 15:47-0400 Systolic blood pressure 130 mm[Hg] Natali IRAHETA [facility] 05-07-2022 14:57-0400 Blood Pressure Location Natali IRAHETA [facility] 05-07-2022 14:57-0400 Diastolic blood pressure 81 mm[Hg] Natali IRAHETA [facility] 05-07-2022 14:57-0400 Heart rate 72 /min Natali IRAHETA [facility] 05-07-2022 14:57-0400 Respiratory rate 16 /min Natali IRAHETA [facility] 05-07-2022 14:57-0400 Systolic blood pressure 149 mm[Hg] Natali IRAHETA [facility] Maik 04-20-2022 15:00-0400 Diastolic blood pressure 58 mm[Hg] DO Miguel Murcek Work Phone: [facility] 04-20-2022 15:00-0400 Heart rate 72 /min DO Miguel Murcek Work Phone: [facility] 04-20-2022 15:00-0400 Respiratory rate 16 /min DO Miguel Toribioceshelby Work Phone: [facility] 04-20-2022 15:00-0400 SaO2% (BldA) [Mass fraction] 95 % DO Miguel Malucek Work Phone: [facility] 04-20-2022 15:00-0400 Systolic blood pressure 118 mm[Hg] DO Miguel Maluceshelby Work Phone: [facility] 04-20-2022 13:09-0400 Body temperature 97.5 [degF] DO Miguel Maluceshelby Work Phone: [facility] 04-20-2022 13:09-0400 Inhaled oxygen flow rate 6 L/min DO Miguel Toribioceshelby Work Phone: [facility] 04-20-2022 12:40-0400 Body height 187.96 cm DO Miguel Toribioceshelby Work Phone: [facility] 04-20-2022 12:40-0400 Body mass index (BMI) [Ratio] 30.9 kg/m2 DO Miguel Murcek Work Phone: [facility] 04-20-2022 12:40-0400 Body weight 109.4 kg DO Miguel Maluceshelby Work Phone: [facility] Encounters Encounter Date Encounter Type Care Provider Facility Start: 04-12-2025 ambulatory Natali Zelaya ty:ALEXANDRA Pleitez Start: 03-04-[address] [facility] Start: 03-01-2025 End: 03-01-2025 ambulatory [facility] Facility:[facility] Start: 02-26-2025 End: 02-28-2025 Refill Nneka Bhagat VIBRATOR OPERATOR Work Phone: [facility] Comment on above: Internal derangement of left knee (Primary Dx) Start: 02-03-[address] [facility] Start: 02-02-2025 End: 02-02-2025 ambulatory BUD CUMMINS Not Available Start: 02-02-2025 End: 02-02-2025 Patient encounter procedure Bud Cummins PA Work Phone: [facility] Comment on above: Pre-op examination ( Primary Dx) Start: 02-02-2025 End: 02-02-2025 Preprocedural examination done Bud Cummins PA Work Phone: [facility] Work Phone: Start: 02-02-2025 End: 02-02-2025 Bamboo flowsheet Bud Cummins PA Work Phone: [facility] Start: 02-02-2025 End: 02-02-2025 Bamboo flowsheet Bud Cummins PA Work Phone: [facility] Start: 02-02-2025 End: 02-02-2025 ambulatory [facility] Facility:[facility] Start: 02-02-2025 Encounter for other preprocedural examination [facility] Start: 12-25-2024 End: 12-25-2024 Bamboo flowsheet [facility] Work Phone: [facility] Start: 12-25-2024 End: 12-25-2024 Bamboo flowsheet JrYonatan [facility] DO Work Phone: [facility] Start: 12-25-2024 End: 12-25-2024 Office outpatient visit 25 minutes [facility] DO Work Phone: [facility] Comment on above: Left knee pain, unsp ecified chronicity (Primary Dx); Internal derangement of left knee Start: 12-25-2024 End: 12-25-2024 ambulatory ENRRIQUE ZIMMERMAN Not Available Start: 12-18-[address] [facility] Start: 12-11-2024 End: 12-14-2024 Telephone encounter Mary Lou Diane VIBRATOR OPERATOR Work Phone: [facility] Comment on above: RX Start: 12-10-2024 End: 12-10-2024 Telephone encounter Mary Lou Diane VIBRATOR OPERATOR Work Phone: [facility] Comment on above: MRI Start: 12-05-2024 End: 12-07-2024 Refill [place] MD Work Phone: [facility] Comment on above: Anxiety disorder, un specified type; Restless leg syndrome Start: 11-30-2024 End: 11-30-2024 Bamboo flowsheet Mary Lou Peterson Apling VIBRATOR OPERATOR Work Phone: [facility] Start: 11-30-2024 End: 11-30-2024 Bamboo flowsheet Mary Lou Peterson Apling VIBRATOR OPERATOR Work Phone: [facility] Start: 11-30-2024 End: 11-30-2024 Office outpatient visit 15 minutes Mary Lou Deckering VIBRATOR OPERATOR Work Phone: [facility] Comment on above: Left knee pain, unsp ecified chronicity (Primary Dx); Arthritis of left knee; Internal derangement of left knee Start: 11-30-2024 End: 11-30-2024 ambulatory MARY LOU Peterson APLING Not Available Start: 11-13-[address] [facility] Start: 11-10-2024 End: 11-10-[address] [facility] Start: 11-09-2024 End: 11-09-2024 Bamboo flowsheet Mary Lou Peterson Apling VIBRATOR OPERATOR Work Phone: [facility] Start: 11-09-2024 End: 11-09-2024 Bamboo flowsheet Mary Lou Diane VIBRATOR OPERATOR Work Phone: [facility] Start: 11-09-2024 End: 11-09-2024 Office outpatient visit 25 minutes Mary Lou Diane VIBRATOR OPERATOR Work Phone: [facility] Comment on above: Left knee pain, unsp ecified chronicity (Primary Dx); Arthritis of left knee Start: 11-09-2024 End: 11-09-2024 ambulatory MARY LOU DIANE Not Available Start: 11-05-2024 End: 11-05-2024 Bamboo flowsheet Naomi Pack [employer]BUTION CLERK [facility] Start: 11-05-2024 End: 11-05-2024 Bamboo flowsheet Naomi Pack [employer] DISTRIBUTION CLERK [facility] Start: 11-05-2024 End: 11-05-2024 ambulatory Naomi Pack [employer] DISTRIBUTION CLERK [facility] Comment on above: Left knee pain, unsp ecified chronicity (Primary Dx) Start: 11-03-2024 End: 11-04-2024 ambulatory Franco Minnie [employer] DISTRIBUTION CLERK [facility] Comment on above: Left knee pain, unsp ecified chronicity (Primary Dx) Start: 11-03-2024 End: 11-03-2024 Bamboo flowsheet Franco Escobedo [employer] DISTRIBUTION CLERK [facility] Start: 11-03-2024 End: 11-03-2024 Bamboo flowsheet Franco Minnie [employer] DISTRIBUTION CLERK [facility] Start: 10-29-2024 End: 10-29-2024 Bamboo flowsheet Yenny Rowe PT [facility] Start: 10-29-2024 End: 10-29-2024 Bamboo flowsheet Yenny Rowe PT [facility] Start: 10-29-2024 End: 10-29-2024 ambulatory Yenny Rowe PT [facility] Comment on above: Left knee pain, unsp ecified chronicity (Primary Dx) Start: 10-28-[address] [facility] Start: 10-27-2024 End: 10-27-2024 ambulatory Franco Escobedo [employer] DISTRIBUTION CLERK [facility] Comment on above: Left knee pain, unsp ecified chronicity (Primary Dx) Start: 10-27-2024 End: 10-27-2024 Bamboo flowsheet Franco Escobedo [employer] DISTRIBUTION CLERK [facility] Start: 10-27-2024 End: 10-27-2024 Bamboo flowsheet Franco Escobedo [employer] DISTRIBUTION CLERK [facility] Start: 10-20-2024 End: 10-20-2024 ambulatory Yenny Rowe PT [facility] Comment on above: Left knee pain, unsp ecified chronicity (Primary Dx) Start: 10-20-2024 End: 10-20-2024 Bamboo flowsheet Yenny Rowe PT [facility] Start: 10-20-2024 End: 10-20-2024 Bamboo flowsheet Yenny Rowe PT [facility] Start: 10-14-[address] [facility] Start: 10-12-2024 End: 10-12-2024 ambulatory Natali IRAHETA Facility:[facility] Start: 10-12-2024 End: 10-12-2024 Patient encounter procedure Natali IRHAETA [facility] Start: 10-07-2024 End: 10-07-2024 ambulatory CECILIA N [facility] Start: 10-07-2024 End: 10-07-2024 Office outpatient visit 25 minutes Cecilia Anderson PA-C Work Phone: [facility] Comment on above: Left knee pain, unsp ecified chronicity (Primary Dx) Start: 10-07-2024 End: 10-07-2024 ambulatory [facility] Start: 09-07-[address] [facility] Start: 08-27-[address] [facility] Start: 08-25-[address] [facility] Start: 08-13-2024 End: 08-13-2024 Robyn Carpenter MD Work Phone: [facility] Start: 08-13-2024 End: 08-13-2024 Bamboo flowsheet Sakina Carpenter MD Work Phone: [facility] Start: 08-13-2024 End: 08-13-2024 Office outpatient visit 15 minutes Sakina Carpenter MD Work Phone: [facility] Comment on above: Seborrheic keratosis (Primary Dx); Lentigines; Melanocytic nevus of trunk; Angioma of skin; Actinic keratosis; History of basal cell carcinoma; Neoplasm of unspecified behavior of bone, soft tissue, and skin Start: 08-13-2024 End: 08-13-2024 ambulatory SAKINA CARPENTER Not Available Start: 07-24-[address] [facility] Start: 06-24-[address] [facility] Start: 06-11-[address] [facility] Start: 06-09-2024 End: 06-09-[address] [facility] Start: 05-15-[address] [facility] Start: 05-13-[address] [facility] Start: 03-30-2024 End: 03-30-2024 ambulatory MARY LOU DIANE Not Available Start: 03-24-[address] [facility] Start: 03-17-2024 End: 03-17-2024 ambulatory SOLEDAD [facility] Start: 03-17-2024 Patient encounter procedure Sakina Carpenter MD Work Phone: [facility] Start: 03-17-2024 End: 03-17-2024 ambulatory [facility] Not Available Start: 02-10-2024 End: 02-10-2024 ambulatory SAKINA CARPENTER Not Available Start: 06-24-2023 End: 06-24-2023 Patient encounter procedure Natali IRAHETA [facility] Start: 04-09-2023 End: 04-09-2023 ambulatory MATTHIAS MARIA A Yonatan Facility:[facility] Start: 03-18-2023 End: 03-18-2023 ambulatory Sakina Carpenter Facility:[facility] Start: 03-18-2023 End: 03-18-2023 ambulatory MD Sakina Carpenter Work Phone: [facility] Work Phone: Start: 03-18-2023 End: 03-18-2023 Departed Referred MD Sakina Carpenter Work Phone: [facility] Work Phone: Start: 03-12-2023 End: 03-13-2023 ambulatory [...] 09-26-2022 Encounter for preprocedural cardiovascular examination BARBIE CANSECO [facility] Start: 09-26-2022 Encounter for preprocedural laboratory examination BARBIE CANSECO [facility] Start: 09-24-2022 ambulatory BARBIE CANSECO Faci lity:[facility] Start: 09-21-2022 End: 09-22-2022 ambulatory BARBIE CANSECO Facility:[facility] Start: 09-21-2022 End: 09-22-2022 Encounter for preprocedural cardiovascular examination BARBIE CANSECO Facility:[facility] Start: 08-01-2022 End: 08-02-2022 ambulatory BARBIE CANSECO Facility:[facility] Start: 06-04-2022 End: 06-05-[address] [facility] CHAPIN Facility:[facility] Start: 05-15-2022 End: 05-16-2022 ambulatory MODESTO ROCHE Facility:[facility] Start: 05-07-2022 End: 05-07-2022 Patient encounter procedure Natali IRAHETA [facility] Start: 04-27-2022 End: 04-28-[address] NTAALI IRAHETA . Facility:[facility] Start: 04-20-2022 End: 04-20-2022 ambulatory Miguel Astorga Facility:[facility] Start: 04-20-2022 End: 04-20-2022 Admission to same day surgery center DO Miguel Astorga Work Phone: [facility] Start: 04-19-2022 End: 04-19-2022 ambulatory [place] Facility:[facility] Start: 04-19-2022 End: 04-19-2022 Patient encounter procedure DO Miguel Astorga Work Phone: [facility]-Pre-Surgical Testing Procedures Date Procedure Procedure Detail Performing Clinician Start: 11-09-2024 Arthrocentesis aspir &/inj major jt/bursa w/o us Mary Lou Diane VIBRATOR OPERATOR Work Phone: Start: 11-09-2024 Radiologic exam both knees standing anteropost Mary Lou Diane VIBRATOR OPERATOR Work Phone: Start: 08-13-2024 SKIN / NAIL BIOPSY Get Carpenter MD Work Phone: Start: 08-13-2024 CRYOTHERAPY SKIN LESION Sakina Carpenter MD Work Phone: Start: 04-09-2023 Colonoscopy Sakina watson MD Work Phone: Start: 04-27-2022 PSA screening MODESTO ROCHE Comment on above: Performed By: #### P SAD ####[facility] [address] [place], [place] [address]KwYonatan Kasper Start: 04-20-2022 OR Cheek Lesion Exc W/Flap Recon (Not Applicable) DO Miguel Astorga Work Phone: Colonoscopy Natali IRAHETA ft (qualifier value) Natali IRAHETA Prosthetic arthropla sty of the hip Natali IRAHETA Removal of Basal Agustina l on Nose Natali IRAHETA Repair of inguinal hernia Pa gunjanshelby IRAHETA Titanium Plate Left Arm Cleor ugo IRAHETA Tonsillectomy and adenoidectomy Natali IRAHETA Plan of Treatment Date Care Activity Detail Author Start: 04-09-2033 Screening for malignant neoplasm of colon [facility] Start: 12-06-2032 DTaP,Tdap and Td Vaccines (2 - Tdap) DTaP,Tdap and Td Vaccines (2 - Tdap) [facility] Start: 10-07-2025 Adult BMI Screening Adult BMI Screening [facility] Start: 10-07-2025 Tobacco Screening Tobacco Screening [facility] Start: 03-29-2025 End: 03-29-2025 Patient encounter procedure 03/29/2025 2:00 PM EDT [facility] [address] [place] [address] [place] MD [address] [place] [address] [facility]ET[facility] DARIUS Start: 03-23-2025 End: 03-23-2025 Patient encounter procedure 03/23/2025 1:00 PM EDT Office Visit [facility] [address] [place] [address] Sakina Carpenter MD [address] [place] [address] [facility] Start: 03-22-2025 End: 03-22-2025 Patient encounter procedure 03/22/2025 11:30 AM EDT Office Visit [facility] [address] [place] [address] [place] MD [address] [place] [address] [facility] Start: 03-17-2025 Medicare Annual Wellness (AWV) Medicare Annual Wellness (AWV) [facility] Start: 2025 End: 2025 Patient encounter procedure 2025 10:00 AM EDT Office Visit [facility] [address] [place] [phone] Nneka Bhagat, VIBRATOR OPERATOR [address] [place] [address] [facility] Start: 02-22-2025 End: 02-22-2025 Patient encounter procedure 02/22/2025 1:35 PM EDT Office Visit [facility] [address] [place] [address] Sakina Carpenter MD [address] [place], [place] [id number] [facility] Start: 02-11-2025 End: 02-11-2025 Patient encounter procedure 02/11/2025 1:05 PM EDT Office Visit [facility] [address] [place] [address] Sakina Carpenter MD [address] [place], [place] [phone] [facility] Start: 02-02-2025 End: 02-02-2025 Patient encounter procedure 02/02/2025 3:00 PM EDT Office Visit [facility] [address] [place] [phone] Bud Cummins, PA [address] [place] [address] [facility] Start: 12-25-2024 End: 12-25-2024 Patient encounter procedure [facility] Comment on above: Arrived Start: 12-09-2024 End: 12-09-2024 Patient encounter procedure 12/09/2024 1:30 PM EST Office Visit [facility] [address] [place] [phone] Cecilia Anderson, PAGeovannaC [address] [facility] 2nd [address] [place], [place] [id number] [facility] Start: 11-30-2024 End: 11-30-2025 MR Knee - left WO contrast MR knee left wo IV contrast Imaging Routine Internal derangement of left knee Expected: 11/30/2024 (Approximate), Expires: 11/30/2025 [facility] Work Phone: Comment on above: Expected: 11/30/2024 (Approximate), Expi res: 11/30/2025 Start: 11-30-2024 End: 11-30-2024 Patient encounter procedure [facility] Comment on above: Left knee pain, unspecified chronicity ( Primary Dx); Arthritis of left knee Start: 11-16-2024 End: 11-16-2024 ambulatory 11/16/2024 2:00 PM EST Treatment [facility] [address] [place] [address] Yenny Rowe, PT [facility] Start: 11-12-2024 End: 11-12-2024 ambulatory 11/12/2024 5:00 PM EST Treatment [facility] [address] [place] [address] Naomi Pack, CITY DISTRIBUTION CLERK [facility] Start: 11-09-2024 End: 11-09-2024 ambulatory 11/09/2024 4:00 PM EST Treatment [facility] [address] [facility] [address] [place] [address] Yenny Rowe, PT [facility] Start: 11-09-2024 End: 11-09-2024 Patient encounter procedure [facility] Comment on above: Left knee pain, unspecified chronicity ( Primary Dx); Arthritis of left knee Start: 11-05-2024 End: 11-05-2024 ambulatory [facility] Comment on above: Arrived Start: 11-03-2024 End: 11-03-2024 ambulatory [facility] Comment on above: Arrived Start: 10-29-2024 End: 10-29-2024 ambulatory [facility] Comment on above: Arrived Start: 10-27-2024 End: 10-27-2024 ambulatory [facility] Comment on above: Arrived Start: 08-13-2024 End: 08-13-2024 Patient encounter procedure 08/13/2024 9:45 AM EDT Office Visit [facility] [address] [place] [address] Sakina Carpenter MD [address] [place] [address] Arrived [facility] Comment on above: Arrived Start: 07-26-2024 COVID-19 Vaccine ( season) COVID-19 Vaccine ( season) [facility] Start: 07-26-2024 Influenza vaccination Influenza Vaccine (#1) [facility] Start: 03-18-2023 Superficial Wound Culture Superficial Wound Culture [facility] Start: 2017 Fall Risk Screening Fall Risk Screening [facility] Start: 1970 Adult BMI Follow Up Plan Adult BMI Follow Up Plan [facility] Start: 1964 Depression Screening Depression Screening [facility] Start: 1952 Screening for malignant neoplasm of colon [facility] Dermatopathology exam Dermatopat hology exam Pathology and Cytology Timed Neoplasm of unspecified behavior of bone, soft tissue, and skin Release Upon Ordering for 1 Occurrences starting 08/13/2024 [facility] Work Phone: Comment on above: Release Upon Ordering for 1 Occurrences starting 08/13/2024 SARS-CoV-2 (COVID-19 ) N gene [Presence] in Respiratory specimen by DAISY with probe detection [facility] Work Phone: End: 10-07-2025 XR Knee - left 3 Views X-ray knee left 3 views Imaging Routine Left knee pain, unspecified chronicity 1 Occurrences starting 10/07/2024 until 10/07/2025 [facility] Work Phone: Comment on above: 1 Occurrences starting 10/07/2024 until 10/07/2025 XR Knee - left 3 Views X-ray kne e left 3 views Imaging Routine Left knee pain, unspecified chronicity 10/07/2024 2:40 PM EST [facility] Immunizations Immunization Date Immunization Notes Care Provider [facility] 08-09-2024 influenza virus vacc ine, unspecified formulation Natali IRAHETA [facility] 08-22-2023 influenza virus vacc ine, unspecified formulation Sakina Carpenter MD Work Phone: [facility] 09-02-2022 influenza virus vacc ine, unspecified formulation Natali IRAHETA [facility] 10-05-2021 SARS-CoV-2 (COVID-19 ) mRNA BNT-162b2 vax Natali IRAHETA [facility] 08-14-2021 influenza virus vacc ine, unspecified formulation Natali IRAHETA [facility] 08-14-2021 pneumococcal polysaccharide vaccine, 23 valent Natali IRAHETA [facility] 03-22-2021 SARS-CoV-2 (COVID-19 ) mRNA BNT-162b2 vax Natali 9You [facility] Comment on above: Result Comment: erro r 03-22-2021 SARS-CoV-2 (COVID-19 ) mRNA-1273 vaccine Natali 9You [facility] 03-01-2021 SARS-CoV-2 (COVID-19 ) mRNA BNT-162b2 vax Natali 9You [facility] 02-23-2021 SARS-CoV-2 (COVID-19 ) mRNA BNT-162b2 vax [employer] [facility] Comment on above: Result Comment: casey r 08-05-2020 influenza virus vacc ine, unspecified formulation [employer] [facility] 08-05-2020 pneumococcal conjuga te vaccine, 13 valent [employer] [facility] 08-31-2019 influenza virus vacc ine, unspecified formulation [employer] [facility] 07-08-2018 influenza virus vacc ine, unspecified formulation [employer] [facility] 07-08-2018 zoster vaccine recombinant [employer] [facility] 03-25-2018 zoster vaccine recombinant [employer] [facility] 08-08-2017 influenza virus vacc ine, unspecified formulation Natali IRAHETA [facility] 07-26-2017 influenza virus vacc ine, unspecified formulation Natali IRAHETA [facility] 07-19-2016 influenza virus vacc ine, unspecified formulation Natali IRAHETA [facility] 09-03-2015 influenza virus vacc ine, unspecified formulation Natali IRAHETA [facility] Payers Date Payer Category Payer Medicaid AETNA MEDICARE A DVANTAGE [id number] 2022 Medicare AETNA MEDICARE A DVANTAGE AETNA MEDICARE REPLACEMENT [id number] 2022-Present [address] [place] [address] [id number] 2022 Self-pay [id number] 2021 Medicare HMO AETNA MEDICARE [id number] 1959 Private Health Insurance [id number] 1952 Unknown [id number] 2.16.840.1.725290.3.579.2. 593 1952 Unknown [id number] 2.16.840.1.095753.3.579.2. 593 1952 Unknown [id number] 2.16.840.1.483071.3.579.2. 593 1952 Unknown [id number] 2.16.840.1.670742.3.579.2. 593 1952 Unknown [id number] 2.16.840.1.429452.3.579.2. 593 1952 Unknown [id number] 2.16.840.1.072360.3.579.2. 593 1952 Unknown [id number] 2.16.840.1.045622.3.579.2. 593 1952 Unknown [id number] 2.16.840.1.267346.3.579.2. 593 1952 Unknown [id number] 2.16.840.1.895977.3.579.2. 593 1952 Unknown [id number] 2.16.840.1.150821.3.579.2. 593 1952 Unknown [id number] 2.16.840.1.443140.3.579.2. 593 1952 Unknown [id number] 2.16.840.1.712454.3.579.2. 593 1952 Unknown [id number] 2.16.840.1.349289.3.579.2. 593 1952 Unknown [id number] 2.16.840.1.099583.3.579.2. 593 1952 Unknown [id number] 2.16.840.1.209582.3.579.2. 593 1952 Unknown [id number] 2.16.840.1.653295.3.579.2. 1286 1952 Unknown [id number] 2.16.840.1.218200.3.579.2. 1286 1952 Unknown [id number] 2.16.840.1.556287.3.579.2. 727 1952 Unknown [id number] 2.16.840.1.186725.3.579.2. 727 1952 Unknown [id number] 2.16.840.1.961161.3.579.2. 1259 1952 Unknown [id number] 2.16.840.1.185821.3.579.2. 125 1952 Unknown [id number] 2.16.840.1.227993.3.579.2. 1259 1952 Unknown [id number] 2.16.840.1.164093.3.579.2. 1259 1952 Unknown [id number] 2.16.840.1.535031.3.579.2. 1259 1952 Unknown [id number] 2.16.840.1.768821.3.579.2. 1259 1952 Unknown [id number] 2.16.840.1.520697.3.579.2. 1259 1952 Unknown [id number] 2.16.840.1.915110.3.579.2. 1259 1952 Unknown [id number] 2.16.840.1.261671.3.579.2. 1258 1952 Unknown [id number] 2.16.840.1.525761.3.579.2. 9 1952 Unknown [id number] 2.16.840.1.926282.3.579.2. 1258 1952 Unknown [id number] 2.16.840.1.109224.3.579.2. 1258 1952 Unknown [id number] 2.16.840.1.586633.3.579.2. 1258 1952 Unknown [id number] 2.16.840.1.240845.3.579.2. 1258 1952 Unknown [id number] 2.16.840.1.313264.3.579.2. 1258 1952 Unknown [id number] 2.16.840.1.666359.3.579.2. 718 1952 Unknown [id number] 2.16.840.1.059218.3.579.2. 718 Private Health Insurance Aetna Mcr PFFS Non Pt [id number] Unknown [id number] Unknown [id number] 2.16.840.1.589294.3.579.2. 531 Unknown [id number] 2.16.840.1.106264.3.579.2. 531 Unknown [id number] 2.16.840.1.179719.3.579.2. 531 Social History Date Type Detail Facility Start: 05-07-2022 End: 08-12-2023 Tobacco smoking status Never smoked tobacco (finding) [facility] Work Phone: Start: 02-03-2024 End: 03-10-2024 Sex Assigned At Male [facility] Start: 1950 Sex Assigned At Male [facility] Tobacco smoking status Never [facility] Start: 01-29-2023 End: 08-12-2023 Tobacco use and exposure Smokeless tobacco non-user [facility] Start: 08-13-2024 End: 02-02-2025 Alcoholic beverage intake Ex-drinker (finding) [facility] Start: 02-03-2024 End: 03-10-2024 History of Social function [facility] Do you belong to any clubs or organizations such as zoroastrian groups, unions, fraternal or athletic groups, or school groups? Yes [facility] Are you now , , , , never or living with a partner? [facility] How often to you hav e a drink containing alcohol? 2-4 times a month [facility] How many standard dr inks containing alcohol do you have on a typical day? 1 or 2 [facility] How often do you hav e 6 or more drinks on 1 occasion? Never [facility] Do you feel stress - tense, restless, nervous, or anxious, or unable to sleep at night because your mind is troubled all the time - these days [OSQ] Not at all [facility] (I/We) worried wheth er (my/our) food would run out before (I/we) got money to buy more. Never true [facility] In the past 12 month s, was there a time when you were not able to pay the mortgage or rent on time? No [facility] Start: 08-27-2023 Alcohol Comment caffeine 1-2 cups per day [facility] Start: 1950 Sex assigned at Not on file [facility] Start: 10-07-2024 Alcoholic beverage intake Current drinker of alcohol (finding) [facility] Start: 06-30-2015 Sex Male (finding) [facility] Start: 10-11-2020 Gender identity Identifies as male gender (finding) [facility] Start: 10-11-2020 Sexual orientation Heterosexual (finding) [facility] Medical Equipment Procedure Code Equipment Code Equipment Origin al Text Equipment Identifier Dates Mesh Brd Perfix Plug Med Rpl [id number] Rpl [id number] - [id number] - [id number] Start: 09-23-2018 Mesh Brd Preshap e Hawkins 3x5 Rpl [id number] - [id number] - [id number]_[facility] Start: 09-23-2018 Comment on above: Description: 13.7 cm x 5.9 cm cut to fit defect Linr Actb 36mm F Ntrl E1 Clr - [id number] Start: 07-10-2017 Hd Fem 36mm Opt G7 Blx D Hip Rpl 650-1057 - [id number] Start: 07-10-2017 Slv Fem Opt +3mm Tpr Hip Blx D Rpl 650-1067 - [id number] Start: 07-10-2017 Stm Fem 125mm 13 3d 20 Hi Os - [id number] Start: 07-10-2017 Shell [id number] Start: 07-10-2017 Goals Date Patient Goal Desired Activity /State Personal health goal Comment on above: Formatting of this n ote might be different from the original. Evaluation of progress towards goal: Maximize work with PT at discharge to strengthen R hip Functional Status Date Assessment Result Facility 10-12-2024 Functional Status N/A [facility] 06-24-2023 Functional Status N/A [facility] 05-07-2022 Functional Status N/A [facility] Clinical Notes 05-07-2022 to 03-02-2025 Telephone Encounter - Nneka Bhagat NP - 02/26/2025 1:00 PM EDTTelephone Encounter - Nneka Bhagat NP - 02/26/2025 1:00 PM EDTMattMORIS Jeter - 02/02/2025 3:00 PM EDT Note Date & Type Note Facility 03-02-2025 Note [id number] Note [facility] Clinical Discharge Summary PERSON INFORMATION Name OSCAR ESCOTO Age 74 Years 1950 Sex MALE Language Congolese PCP [facility] Marital Status Phone Med Service Ambulatory Surgery Acct# Arrival 03/01/2025 08:45:44 Visit Reason SURGERY - LEFT KNEE ARTHROSOCPY - LATERAL MENISCUS TEAR Acuity LOS 066 02:01 Address: [address] [place] [address] Comment: PROVIDER INFORMATION VITALS INFORMATION Vital Sign Triage Latest Temp Oral Temp Temporal Temp Intravascular Temp Axillary Temp Rectal 02 Sat 98 % 95 % Respiratory Rate Peripheral Pulse Rate Apical Heart Rate Blood Pressure / 81 mmHg / 74 mmHg Comment: MEDICAL INFORMATION Allergy Info: No Known Medication Allergies Prescriptions Given: dilTIAZem (Cartia XT 240 mg/24 hours oral capsule, extended release) 240 Milligram Oral (given by mouth) every day. doxepin (doxepin 50 mg oral capsule) 1 cap(s) Oral (given by mouth) once a day (at bedtime). famotidine (famotidine 20 mg oral tablet) 1 tab(s) Oral (given by mouth) every day. finasteride (finasteride 5 mg oral tablet) 1 tab(s) Oral (given by mouth) every day. lisinopril (lisinopril 5 mg oral tablet) 1 tab(s) Oral (given by mouth) every day. multivitamin, (Multivitamin) 1 tab(s) Oral (given by mouth) every day. rOPINIRole (rOPINIRole 2 mg oral tablet) 1 tab(s) Oral (given by mouth) every day. tamsulosin (tamsulosin 0.4 mg oral capsule) 1 cap(s) Oral (given by mouth) every day. Template Non-Formulary (eye promise restore) 1 cap(s) Oral (given by mouth) every day. Template Non-Formulary (glucosimine chondroitin) 1 tab(s) Oral (given by mouth) 2 times per day. Template Non-Formulary (iron) 1 tab(s) Oral (given by mouth) every day. Medication List: Medications to Continue That Have Not Changed Other Medications dilTIAZem (Cartia XT 240 mg/24 hours oral capsule, extended release) 240 Milligram Oral (given by mouth) every day. doxepin (doxepin 50 mg oral capsule) 1 cap(s) Oral (given by mouth) once a day (at bedtime). famotidine (famotidine 20 mg oral tablet) 1 tab(s) Oral (given by mouth) every day. finasteride (finasteride 5 mg oral tablet) 1 tab(s) Oral (given by mouth) every day. lisinopril (lisinopril 5 mg oral tablet) 1 tab(s) Oral (given by mouth) every day. multivitamin, (Multivitamin) 1 tab(s) Oral (given by mouth) every day. rOPINIRole (rOPINIRole 2 mg oral tablet) 1 tab(s) Oral (given by mouth) every day. tamsulosin (tamsulosin 0.4 mg oral capsule) 1 cap(s) Oral (given by mouth) every day. Template Non-Formulary (eye promise restore) 1 cap(s) Oral (given by mouth) every day. Template Non-Formulary (glucosimine chondroitin) 1 tab(s) Oral (given by mouth) 2 times per day. Template Non-Formulary (iron) 1 tab(s) Oral (given by mouth) every day. Medications to Continue That Have Not Changed Other Medications dilTIAZem (Cartia XT 240 mg/24 hours oral capsule, extended release) 240 Milligram Oral (given by mouth) every day. doxepin (doxepin 50 mg oral capsule) 1 cap(s) Oral (given by mouth) once a day (at bedtime). famotidine (famotidine 20 mg oral tablet) 1 tab(s) Oral (given by mouth) every day. finasteride (finasteride 5 mg oral tablet) 1 tab(s) Oral (given by mouth) every day. lisinopril (lisinopril 5 mg oral tablet) 1 tab(s) Oral (given by mouth) every day. multivitamin, (Multivitamin) 1 tab(s) Oral (given by mouth) every day. rOPINIRole (rOPINIRole 2 mg oral tablet) 1 tab(s) Oral (given by mouth) every day. tamsulosin (tamsulosin 0.4 mg oral capsule) 1 cap(s) Oral (given by mouth) every day. Template Non-Formulary (eye promise restore) 1 cap(s) Oral (given by mouth) every day. Template Non-Formulary (glucosimine chondroitin) 1 tab(s) Oral (given by mouth) 2 times per day. Template Non-Formulary (iron) 1 tab(s) Oral (given by mouth) every day. Medications to Continue That Have Not Changed Other Medications dilTIAZem (Cartia XT 240 mg/24 hours oral capsule, extended release) 240 Milligram Oral (given by mouth) every day. doxepin (doxepin 50 mg oral capsule) 1 cap(s) Oral (given by mouth) once a day (at bedtime). famotidine (famotidine 20 mg oral tablet) 1 tab(s) Oral (given by mouth) every day. finasteride (finasteride 5 mg oral tablet) 1 tab(s) Oral (given by mouth) every day. lisinopril (lisinopril 5 mg oral tablet) 1 tab(s) Oral (given by mouth) every day. multivitamin, (Multivitamin) 1 tab(s) Oral (given by mouth) every day. rOPINIRole (rOPINIRole 2 mg oral tablet) 1 tab(s) Oral (given by mouth) every day. tamsulosin (tamsulosin 0.4 mg oral capsule) 1 cap(s) Oral (given by mouth) every day. Template Non-Formulary (eye promise restore) 1 cap(s) Oral (given by mouth) every day. Template Non-Formulary (glucosimine chondroitin) 1 tab(s) Oral (given by mouth) 2 times per day. Template Non-Formulary (iron) 1 tab(s) Oral (given by mouth) every day. Comme (more content not included)... [facility] 02-26-2025 Telephone encounter Note Post op pain rx. PDMP reviewed [facility] 02-26-2025 Miscellaneous Notes Post op pain rx. PDMP reviewed documented in this encounter [facility] 02-02-2025 History of Present illness Narrative Images from the original note were not included. GENERAL HISTORY AND PHYSICAL: NAME: Oscar Escoto : 1950 HISTORY OF PRESENT ILLNESS: Oscar Escoto is an 74 y.o. @ male. Here for surgery instructions H&P LT KNEE SCOPE 03/01/25 @ [facility] PAST MEDICAL HISTORY: Past Medical History: Diagnosis Date Actinic keratosis Atrial fibrillation (CMS/HCC) 09/2016 hospitalized Basal cell carcinoma 11/2014 right nose , MOHS Benign prostatic hyperplasia Cancer of skin, squamous cell Colon polyps Compound nevus with moderate atypia, right superior arm. excised (01/27/19) History of loop recorder Hoarseness CHERI (obstructive sleep apnea) RLS (restless legs syndrome) Squamous cell skin cancer PAST SURGICAL HISTORY: Past Surgical History: Procedure Laterality Date COLONOSCOPY W/ POLYPECTOMY FOOT SURGERY Left plantar fascia surgery HEEL SPUR EXCISION Right HERNIA REPAIR 2017 Dr. Watson MOUTH SURGERY front tooth implant ORIF WRIST FRACTURE Left 2012 Dr. Caldwell SKIN SURGERY 04/20/2022 reconstruction scalp wound with rotation flap TOE SURGERY Bilateral GREAT TOE FUSION TONSILLECTOMY TOTAL HIP ARTHROPLASTY Right 2016 SOCIAL HISTORY: Social History Occupational History Not on file Tobacco Use Smoking status: Never Smokeless tobacco: Never Substance and Sexual Activity Alcohol use: Not Currently Comment: caffeine 1-2 cups per day Drug use: Not on file Sexual activity: Not on file ALLERGIES: No Known Allergies MEDICATIONS: Current Outpatient Medications Medication Instructions acetaminophen (TYLENOL 8 HOUR) 650 mg, Every 8 hours PRN Dilt-XR 180 MG 24 hr capsule dilTIAZem CD (Cartia XT) 240 MG 24 hr capsule doxepin (SINEQUAN) 50 mg, Oral, Nightly famotidine (PEPCID) 20 mg, 2 times daily ferrous sulfate 325 mg, Daily with breakfast finasteride (PROSCAR) 5 mg, Daily glucosamine-chondroitin 500-400 MG tablet 1 tablet, 2 times daily lisinopril 5 mg RA Vitamin D-3 2,000 Units, Daily rOPINIRole (REQUIP) 2 mg, Oral, Nightly tamsulosin (FLOMAX) 0.4 mg, Daily REVIEW OF SYSTEMS: Review of Systems Constitutional: Negative for fatigue, fever and unexpected weight change. Eyes: Negative for redness and visual disturbance. Gastrointestinal: Negative for abdominal pain. Denies Indigestion Musculoskeletal: See note: Skin: Negative for color change and rash. Neurological: Negative for light-headedness and numbness. Vitals: Body mass index is 31.97 kg/m . PHYSICAL EXAM: Physical Exam Constitutional: General: He is not in acute distress. Appearance: Normal appearance. HENT: Head: Normocephalic and atraumatic. Right Ear: External ear normal. Left Ear: External ear normal. Nose: Nose normal. No rhinorrhea. Mouth/Throat: Mouth: Mucous membranes are moist. Pharynx: No posterior oropharyngeal erythema. Eyes: Extraocular Movements: Extraocular movements intact. Conjunctiva/sclera: Conjunctivae normal. Cardiovascular: Rate and Rhythm: Normal rate and regular rhythm. Pulses: Normal pulses. Heart sounds: No murmur heard. Comments: History of A-fib, regular today. Pulmonary: Effort: Pulmonary effort is normal. No respiratory distress. Breath sounds: Normal breath sounds. No wheezing or rhonchi. Abdominal: Palpations: Abdomen is soft. Tenderness: There is no abdominal tenderness. Musculoskeletal: Cervical back: Normal range of motion and neck supple. Lymphadenopathy: Cervical: No cervical adenopathy. Skin: General: Skin is warm and dry. Findings: No erythema or rash. Neurological: General: No focal deficit present. Mental Status: He is alert and oriented to person, place, and time. Psychiatric: Mood and Affect: Mood normal. Behavior: Behavior normal. No orders of the defined types were placed in this encounter. ASSESSMENT: ICD-10-CM 1. Pre-op examination Z01.818 PLAN: This patient presents for preadmission testing for upcoming surgery. Complete history with medical, surgery, and current allergy and medication list obtained. Consent for surgery signed and witnessed after verbal consent to perform surgery received. All questions answered and proposed surgery scheduled. KNEE SCOPE 03/01/25 @ [facility] 02/02/25 @ [address] [place] [address] PAT 02/02/25 @ [facility] Follow up for Post-Op 03/15/25 @ [address] [place] [address] NNEKA. documented in this encounter [facility] 12-25-2024 History of Present illness Narrative Images from the original note were not included. HISTORY OF PRESENT ILLNESS: EST PT Oscar Escoto is an 74 y.o. @ male. (EST PT-PREVIOUSLY SAW MARY LOU JEREMÍAS ON 11/30/24) RECHECK (L) KNEE PAIN; HERE FOR MRI RESULTS DONE ON 12/18/24 AT [facility]. XRAY B/L AP WB KNEES 11/09/24 IN [facility] XRAY (L) KNEE 10/07/24 [facility] MRI (L) KNEE 12/18/24 [facility] DEPO MEDROL INJ 11/09/24 - 50% IMPROVEMENT P.T (#5 VISITS 10/20/24- 11/05/24) [facility] KAIN PAIN MGMT 10/07/24 [facility] NO PRESNISONE/MDP PAIN IS MOSTLY MEDIAL KNEE. DESCRIBED ACHING AND STABBING. WORSE W/ WB AND MOVEMENT. DIFFICULTY GOING UP AND DOWN STAIRS. PAIN WAKES HIM AT NIGHT, PAIN IS WORSE AT NIGHT-TAKING TYL ARTHRITIS NEEDED. USING HEAT. + GIVING OUT SENSATION. + WEAKNESS- DENIES N/T- +SWELLING, WORSE THE DAY GOES ON. H/O INJURY: PT FELL IN JUNE 2024 (5 MONTHS). ALLERGIES: No Known Allergies HOME MEDICATIONS: Current Outpatient Medications Medication Instructions acetaminophen (TYLENOL 8 HOUR) 650 mg, Every 8 hours PRN Dilt-XR 180 MG 24 hr capsule dilTIAZem CD (Cartia XT) 240 MG 24 hr capsule doxepin (SINEQUAN) 50 mg, Oral, Nightly famotidine (PEPCID) 20 mg, 2 times daily ferrous sulfate 325 mg, Daily with breakfast finasteride (PROSCAR) 5 mg, Daily glucosamine-chondroitin 500-400 MG tablet 1 tablet, 2 times daily lisinopril 5 mg RA Vitamin D-3 2,000 Units, Daily rOPINIRole (REQUIP) 2 mg, Oral, Nightly tamsulosin (FLOMAX) 0.4 mg, Daily PHYSICAL EXAM: Knee Musculoskeletal Exam Gait Limp: left Inspection Left Erythema: none Effusion: mild Edema: none Ecchymosis: none Palpation Left Crepitus: patellofemoral Tenderness: present Lateral joint line: moderate Medial joint line: moderate Range of Motion Left Active extension: 0 Active flexion: 110 Passive flexion: 120 Strength Left Extension: 4/5. Flexion: 4/5. Instability Left Medial Jaden test: negative Lateral Jaden test: positive Vitals: There is no height or weight on file to calculate BMI. Tobacco Use: Low Risk (12/25/2024) Patient History Smoking Tobacco Use: Never Smokeless Tobacco Use: Never Passive Exposure: Not on file Alcohol Use: Not At Risk (02/03/2024) AUDIT-C Frequency of Alcohol Consumption: 2-4 times a month Average Number of Drinks: 1 or 2 Frequency of Binge Drinking: Never IMAGING: Procedures No orders of the defined types were placed in this encounter. ASSESSMENT: ICD-10-CM 1. Left knee pain, unspecified chronicity M25.562 2. Internal derangement of left knee M23.92 PLAN: We have discussed his symptoms, physical exam, x-rays, and MRI. We have recommended diagnostic and operative arthroscopy for lateral meniscus tear. He is in agreement with said treatment understanding the risks and benefits of multiple surgical options and nonsurgical treatments. We'll see him back to surgery. We have discussed both surgical and nonsurgical treatment options with the patient at length and the risks and benefits associated with both. The patient is requesting surgical intervention because they have not responded to outpatient treatment options including but not limited to rest ice, and home exercise program. Pain and decreased range of motion are affecting the patient's ability to sleep and activities of daily living and we have recommended surgical intervention. Questions answered in laymen terms at the bedside. The diagnosis, home exercise plan and any ongoing restrictions/ recommendations reviewed. If unable to be reached in office, I recommend evaluation at nearest Emergency Room if any symptoms worsened or new symptoms develop for requiring urgent evaluation. documented in this encounter [facility] 12-11-2024 Telephone encounter Note Patient called stating that [facility] in [place] did not receive the rx needed prior to MRI being done. Please advise. [facility] 12-11-2024 Miscellaneous Notes Patient called stating that [facility] in [place] did not receive the rx needed prior to MRI being done. Please advise. documented in this encounter [facility] 12-10-2024 Telephone encounter Note Faxed referral, MRI order, office notes and XR report to [facility]. [facility] 12-10-2024 Miscellaneous Notes Faxed referral, MRI order, office notes and XR report to [facility]. Patient called and left that he spoke with [facility]. They received authorization for his MRI. They have not received requested notes so they cannot schedule him until they receive the notes. Please advise. documented in this encounter [facility] 12-10-2024 Telephone encounter Note Patient called and left that he spoke with [facility]. They received authorization for his MRI. They have not received requested notes so they cannot schedule him until they receive the notes. Please advise. [facility] 11-30-2024 History of Present illness Narrative Images from the original note were not included. Subjective Patient ID: Oscar Escoto is a 74 y.o. male. LT knee 3 weeks s/p Depo medrol injection (11/09/24) with maybe 50% improvement The incident occurred in (Jun 2024). The injury mechanism was a fall. The quality of the pain is described as aching and stabbing. Pain scale: 1/10 sitting, 7/10 stairs. The pain is moderate. The pain has been Worsening since onset. The symptoms are aggravated by movement, weight bearing and palpation. He has tried heat, acetaminophen, rest and non-weight bearing (HEP) for the symptoms. The treatment provided mild relief. Pain is mostly medial knee. States his knee does give out and causes pain lateral knee, quick shooting pain. Taking TYL arthritis prn. Using heat. Finished PT. Sometimes wakes at HS. Difficulty going up and down stairs. Weakness. TX: Pain management 10/07/24, heat, TYL, rest, HEP, P.T. n[facility] kain, xrays LT knee 10/08/24 [facility], XR [facility] B/L WB AP 11/09/24, ice, voltaren, depo medrol injection 11/09/24 Objective Left Knee Exam Tests Jaden: Medial - positive Knee Musculoskeletal Exam Gait Limp: left Inspection Left Erythema: none Effusion: mild Edema: none Ecchymosis: none Palpation Left Crepitus: patellofemoral Tenderness: present Medial joint line: moderate Range of Motion Left Active extension: 0 Active flexion: 110 Strength Left Extension: 4/5. Flexion: 4/5. Instability Left Medial Jaden test: positive Assessment/Plan Encounter Diagnoses: ICD-10-CM 1. Left knee pain, unspecified chronicity M25.562 2. Arthritis of left knee M17.12 3. Pain of right thumb M79.644 4. Arthritis of carpometacarpal (CMC) joint of right thumb M18.11 discussion of due to failure of conservative treatment would recommend an MRI of the left knee without contrast, activities as tolerated, f/u s/p MRI to be done at [facility]. documented in this encounter [facility] 11-10-2024 Note [facility] Consult Note Reason for visit: Dizziness/SVT 11/10/24 Pt is doing well and tolerating DOAC. LOOP has been neg for any AF. 06/09/24 Patient here for 3 mo follow up PAF, AVNRT, SVT, and atrial flutter. He had routine labs w/ lipid profile in March 2024. He is doing very well. Denies chest pain, SOB, palpitations, lightheadedness/syncope, and bleeding on Xarelto. patient underwent EP study and ablation on 02/12/2024 and following that he had successful ablation of AVNRT. atrial fibrillation was also noted which organized into atrial flutter and flutter ablation was performed. there was easily inducible A-fib which was cardioverted with the help of ibutilide infusion. Since then he has done very well and no AF February 12, 2024 All episodes in EP lab. 12/03/23 Loop data reviewed by me and [...] evidence of A. Fib. Prior HPI: Oscar Escoto is a 74 y.o. year old with past medical history of atrial fibrillation that was diagnosed few years ago here he was admitted to [facility] with A. fib with rapid ventricular rate. [...] 48 hours from 12/24/2021 to 12/10/2021 at [facility] was reviewed by me and shows PVC burden of less than 1% and PVC count of 6%. Occasional nonsustained atrial tachycardia few beats seen but no atrial fibrillation noted. 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 [facility] 11-09-2024 History of Present illness Narrative Associated Order(s): L Inj/Asp: L knee Post-Procedure Diagnose(s): Arthritis of left knee Images from the original note were not included. 0Subjective Patient ID: Oscar Escoto is a 74 y.o. male. LT knee The incident occurred in (Jun 2024). The injury mechanism was a fall. The quality of the pain is described as aching and stabbing. Pain scale: 1/10 sitting, 7/10 stairs. The pain is moderate. The pain has been Worsening since onset. The symptoms are aggravated by movement, weight bearing and palpation. He has tried heat, acetaminophen, rest and non-weight bearing (HEP) for the symptoms. The treatment provided mild relief. He has been going to therapy in [facility] with improvement in strength but continues to have pain, has 3 more scheduled. Pain is pretty diffuse in knee. Can feel pain mostly anterior below patella and medial. Denies radiation. Taking TYL arthritis prn. Using ice prn. Was using voltaren, little relief. Admits swelling by end of day. Denies N/T. Admits popping/grinding. Admits giving out sensation with pivoting. Difficulty going up and down stairs. Weakness. Wakes pt at HS. Continues to play pickle ball. TX: Pain management 10/07/24, heat, TYL, rest, HEP, P.T. noms k[facility], xrays LT knee 10/08/24 [facility], XR [facility] B/L WB AP 11/09/24, ice, voltaren Objective Left Knee Exam Tests Jaden: Medial - positive Knee Musculoskeletal Exam Gait Limp: left Inspection Left Erythema: none Effusion: mild Edema: none Ecchymosis: none Inspection additional comments: +1 pitting edema in lower leg Palpation Left Crepitus: patellofemoral Tenderness: present Medial joint line: moderate Range of Motion Right Active extension: 0 Active flexion: 120 Left Active extension: 0 Active flexion: 110 Strength Left Extension: 4/5. Flexion: 4/5. Instability Left Medial Jaden test: positive L Inj/Asp: L knee on 11/09/2024 11:53 AM Indications: pain Details: 20 G needle, anterolateral approach Medications: 40 mg methylPREDNISolone acetate 40 MG/ML Outcome: tolerated well, no immediate complications UTILIZING ASEPTIC TECHNIQUE PT GIVEN INJECTION IN LEFT KNEE, NEUROVASC INTACT S/P INJ, TOLERATED WELL Procedure, treatment alternatives, risks and benefits explained, specific risks discussed. Consent was given by the patient. XR knees anteroposterior standing bilateral Imaging Result: Standing AP shows no gross evidence of major arthritic process, overall anatomic alignment appeared to be well preserved. There was no acute bony process including but not limited to fracture and/or dislocation. Impression: no gross evidence of major arthritic process or structural damage bilateral knees I reviewed the xrays of the left knee done on 10/08/24 at [facility] reveals tricompartmental arthritis, no fractures noted. I reviewed the pain management note from 10/08/24, ordered xrays and therapy. I reviewed the p.t note from physical therapy noms #5 11/05/24 strength has improved but continues to have pain. Assessment/Plan Encounter Diagnoses: ICD-10-CM 1. Left knee pain, unspecified chronicity M25.562 2. Arthritis of left knee M17.12 Discussion of options, pt notes he would like an injection, side effects of bleeding and infection discussed, would like to proceed with the injection, using aspectic technique 40 mg of depo medrol was injected into the left lateral knee, pt tolerated well, bandaid applied, may do activities as tolerated, f/u in 2 weeks. If not much improved would recommend an MRI and he understands this documented in this encounter [facility] 10-29-2024 History of Present illness Narrative Physical Therapy Treatment Visit Patient Name: Oscar Shepherd Today's Date: 10/29/2024 Encounter Diagnoses Name Primary? Left knee pain, unspecified chronicity Yes Visit number: 3 Timed Code Treatment Minutes: 39 minutes Total Treatment Time: 39 minutes Time In: 1354 Time Out: 1437 History: Pt states left knee has been bothering him for quite some time. Of recent, left knee pain is worsening. Pt states he plays pickle ball during week which is not a problem; however, stair, sit to stands, and walking greater distances are causing him pain. Pt states he wakes up with stiffness in left knee every morning. Xray showed tricompartmental joint degenerative disease. Precautions: right ELVIE, loop recorder, universal Subjective: Pt reports only min soreness following last session. States still having difficulty with stairs and sit to stands at home. Pain: 1-06/03 Objective: PT Evaluation (10/20/2024) Left KNEE AROM: 5 to 111 degrees in supine PROM: 3 to 118 degrees with pain noted at both end ranges; right knee flexion 133 degrees Joint play: limited mobility left tibial femoral joint MMT: left quad 4 to 4+/5; left hip abduction and ER 4/5 Palpation: Moderate tightness left medial and lateral collateral ligaments Special Test: Mild laxity left MCL Treatment: Education: HEP education with demonstration, Educated on Eval Findings and POC Manual Therapy: (minutes) Passive ROM, Joint mobilization, Soft Tissue Mobilization, Myofascial Release, Muscle Energy Technique, Neural Mobilization, Myofascial Cupping, Dry Needling, IASTM, and Scar mobilization as needed. Mobs to left knee at end range flexion to increase ROM and mobility. Therapeutic Exercise: (39 minutes) Strength, Endurance, Flexibility, ROM, HEP, Neural Mobilization, Power, and Core Stability as needed. Progressed ex to increase strength this date. Therapeutic Activity: Exercises to improve dynamic activities, functional tasks, functional mobility to return to prior activity level as needed. Neuromuscular re-education: Balance Training, Muscle Facilitation, Dynamic Stability, Core Stabilization, and Blood Flow Restriction Training (BFRT) as needed. Modalities: Heat, Ice, Electrical Stimulation, Ultrasound, Cervical Mechanical Traction, Lumbar Mechanical Traction, Iontophoresis, and Fluidotherapy as needed. Assessment: Pt has completed 3 PT sessions for left knee pain. Progressed exercises this date ensuring pain free. Pt able to achieve 127 degrees left knee flexion with self stretch. Will continue to progress as pt tolerates. Outcome Measure: Lower Extremity Functional Scale (LEFS): Rehab Diagnosis: left knee pain and weakness; difficulty walking Short Term Goal: To be met in 2 weeks Goal 1: Pt to be instructed in home exercise program. [employer] Goals: To be met in 10 weeks Goal 1: Pt to report independence and compliance with home program. Goal 2: Pt to achieve 130 degrees left knee flexion to assist with functional tasks such as squatting. Goal 3: Pt to be lacking no greater than 1 degree left knee extension to assist with proper gait. Goal 4: Pt to achieve 5/5 strength left knee flexion and extension to assist with functional mobility and ADL's. Goal 5: Pt to score no less than 50/80 on LEFS indicating improved QOL. Pt will benefit from skilled PT for 2x/week from 10/20/2024 to 12/29/2024 to address the above impairments. I hereby deem this POC medically necessary. Please sign below. Date: documented in this encounter [facility] 10-20-2024 History of Present illness Narrative Physical Therapy Evaluation Visit Patient Name: Oscar Shepherd Today's Date: 10/20/2024 Encounter Diagnoses Name Primary? Left knee pain, unspecified chronicity Yes Visit number: 1 Timed Code Treatment Minutes: 50 minutes Total Treatment Time: 50 minutes Time In: 1420 Time Out: 1515 History: Pt states left knee has been bothering him for quite some time. Of recent, left knee pain is worsening. Pt states he plays pickle ball during week which is not a problem; however, stair, sit to stands, and walking greater distances are causing him pain. Pt states he wakes up with stiffness in left knee every morning. Xray showed tricompartmental joint degenerative disease. Precautions: right ELVIE, loop recorder, universal Subjective: left knee, worse with activity Pain: 1-06/03 Objective: PT Evaluation (10/20/2024) Left KNEE AROM: 5 to 111 degrees in supine PROM: 3 to 118 degrees with pain noted at both end ranges; right knee flexion 133 degrees Joint play: limited mobility left tibial femoral joint MMT: left quad 4 to 4+/5; left hip abduction and ER 4/5 Palpation: Moderate tightness left medial and lateral collateral ligaments Special Test: Mild laxity left MCL Treatment: Education: HEP education with demonstration, Educated on Eval Findings and POC Manual Therapy: (13 minutes) Passive ROM, Joint mobilization, Soft Tissue Mobilization, Myofascial Release, Muscle Energy Technique, Neural Mobilization, Myofascial Cupping, Dry Needling, IASTM, and Scar mobilization as needed. Mobs to left knee at end range flexion to increase ROM and mobility. Therapeutic Exercise: (12 minutes) Strength, Endurance, Flexibility, ROM, HEP, Neural Mobilization, Power, and Core Stability as needed. Pt performed and instructed in home program this date; written instructions and pictures issued with good pt understanding. Therapeutic Activity: Exercises to improve dynamic activities, functional tasks, functional mobility to return to prior activity level as needed. Neuromuscular re-education: Balance Training, Muscle Facilitation, Dynamic Stability, Core Stabilization, and Blood Flow Restriction Training (BFRT) as needed. Modalities: Heat, Ice, Electrical Stimulation, Ultrasound, Cervical Mechanical Traction, Lumbar Mechanical Traction, Iontophoresis, and Fluidotherapy as needed. Assessment: Pt is 74 y/o male with complaints of left knee pain. Pt presents with limited ROM and mobility of left knee. Laxity noted left MCL. Limited strength left hip and knee noted. Left knee flexion improved to 125 degrees following manual therapy. Pt will benefit from further PT. Outcome Measure: Lower Extremity Functional Scale (LEFS): Rehab Diagnosis: left knee pain and weakness; difficulty walking Short Term Goal: To be met in 2 weeks Goal 1: Pt to be instructed in home exercise program. Longterm Goals: To be met in 10 weeks Goal 1: Pt to report independence and compliance with home program. Goal 2: Pt to achieve 130 degrees left knee flexion to assist with functional tasks such as squatting. Goal 3: Pt to be lacking no greater than 1 degree left knee extension to assist with proper gait. Goal 4: Pt to achieve 5/5 strength left knee flexion and extension to assist with functional mobility and ADL's. Goal 5: Pt to score no less than 50/80 on LEFS indicating improved QOL. Pt will benefit from skilled PT for 2x/week from 10/20/2024 to 12/29/2024 to address the above impairments. I hereby deem this POC medically necessary. Please sign below. Date: documented in this encounter [facility] 10-12-2024 Hospital Discharge instructions Patient Education 10/12/2024 16:12:18 Epididymitis Epididymitis Epididymitis is inflammation or swelling of the epididymis. This is caused by an infection. The epididymis is a cord-like structure that is located along the top and back part of the testicle. It collects and stores sperm from the testicle. This condition can also cause pain and swelling of the testicle and scrotum. Symptoms usually start suddenly (acute epididymitis). Sometimes epididymitis starts gradually and lasts for a while (chronic epididymitis). Chronic epididymitis may be harder to treat. What are the causes? In men ages 20 40, this condition is usually caused by a bacterial infection or a sexually transmitted infection (STI), such as gonorrhea or chlamydia. In men 40 and older, this condition is usually caused by bacteria from a urinary blockage or from abnormalities in the urinary system. These can result from: Having a tube placed into the bladder (urinary catheter). Having an enlarged or inflamed prostate gland. Having recently had urinary tract surgery. Having a problem with a backward flow of urine (retrograde). In men who have a condition that weakens the body's defense system (immune system), such as human immunodeficiency virus (HIV), this condition can be caused by: Other bacteria, including tuberculosis and syphilis. Viruses. Fungi. Sometimes this condition occurs without infection. This may happen because of trauma or repetitive activities such as sports. What increases the risk? You are more likely to develop this condition if you have: Unprotected sex with more than one partner. Anal sex. Had recent surgery. A urinary catheter. Urinary problems. A suppressed immune system. What are the signs or symptoms? This condition usually begins suddenly with chills, fever, and pain behind the scrotum and in the testicle. Other symptoms include: Swelling of the scrotum, testicle, or both. Pain when ejaculating or urinating. Pain in the back or abdomen. Nausea. Itching and discharge from the penis. A frequent need to pass urine. Redness, increased warmth, and tenderness of the scrotum. How is this diagnosed? Your health care provider can diagnose this condition based on your symptoms and medical history. Your health care provider will also do a physical exam to check your scrotum and testicle for swelling, pain, and redness. You may also have other tests, including: Testing of discharge from the penis. Testing your urine for infections, such as STIs. Ultrasound to check for blood flow and inflammation. Your health care provider may test you for other STIs, including HIV. How is this treated? Treatment for this condition depends on the cause. If your condition is caused by a bacterial infection, oral antibiotic medicine may be prescribed. If the bacterial infection has spread to your blood, you may need to receive IV antibiotics. For both bacterial and nonbacterial epididymitis, you may be treated with: Rest. Elevation of the scrotum. Pain medicines. Anti-inflammatory medicines. Surgery may be needed if: You have pus buildup in the scrotum (abscess). You have epididymitis that has not responded to other treatments. Follow these instructions at home: Medicines Take zkwz-[id number] and prescription medicines only as told by your health care provider. If you were prescribed an antibiotic medicine, take it as told by your health care provider. Do not stop taking the antibiotic even if your condition improves. Sexual activity If your epididymitis was caused by an STI, avoid sexual activity until your treatment is complete. Inform your sexual partner or partners if you test positive for an STI. They may need to be treated. Do not engage in sexual activity with your partner or partners until their treatment is completed. Managing pain and swelling If directed, raise (elevate) your scrotum and apply ice. To do this: ?Put ice in a plastic bag. ?Place a small towel or pillow between your legs. ?Rest your scrotum on the pillow or towel. ?Place another towel between your skin and the plastic bag. ?Leave the ice on for 20 minutes, 2 3 times a day. ?Remove the ice if your skin turns bright red. This is very important. If you cannot feel pain, heat, or cold, you have a greater risk of damage to the area. Keep your scrotum elevated and supported while resting. Ask your health care provider if you should wear a scrotal support, such as a jockstrap. Wear it as told by your health care provider. Try taking a sitz bath to help with discomfort. This is a warm water bath that is taken while you are sitting down. The water should come up to your hips and should cover your buttocks. Do this 3 4 times per day or as told by your health care provider. General instructions Drink enough fluid to keep your urine pale yellow. Return to your normal activities as told by your health care provider. Ask your health care provider what activities are safe for you. Keep all follow-up visits. This is important. Contact a health care provider if: You have a fever. Your pain medicine is not helping. Your pain is getting worse. Your symptoms do not improve within 3 days. Summary Epididymitis is inflammation or swelling of the epididymis. This is caused by an infection. This condition can also cause pain and swelling of the testicle and scrotum. Treatment for this condition depends on the cause. If your condition is caused by a bacterial infection, oral antibiotic medicine may be prescribed. Inform your sexual partner or partners if you test positive for an STI. They may need to be treated. Do not engage in sexual activity with your partner or partners until their treatment is completed. Contact a health care provider if your symptoms do not improve within 3 days. This information is not intended to replace advice given to you by your health care provider. Make sure you discuss any questions you have with your health care provider. Document Revised: 06/20/2022 Document Reviewed: 06/20/2022 [employer] Patient Education 2023 [employer]. Follow Up Care 06/24/2023 16:43:14 With:ESEQUIEL RUSSELL, Natali R, URL Address: [facility] [address] [place] [address]- [phone] When: Unknown Comments:6 mos [facility] Maik 10-12-2024 Note Patient Education Urology Epididymitis Epididymitis is inflammation or swelling of the epididymis. This is caused by an infection. The epididymis is a cord-like structure that is located along the top and back part of the testicle. It collects and stores sperm from the testicle. This condition can also cause pain and swelling of the testicle and scrotum. Symptoms usually start suddenly (acute epididymitis). Sometimes epididymitis starts gradually and lasts for a while (chronic epididymitis). Chronic epididymitis may be harder to treat. What are the causes? In men ages 20?40, this condition is usually caused by a bacterial infection or a sexually transmitted infection (STI), such as gonorrhea or chlamydia. In men 40 and older, this condition is usually caused by bacteria from a urinary blockage or from abnormalities in the urinary system. These can result from: ??? Having a tube placed into the bladder (urinary catheter). ??? Having an enlarged or inflamed prostate gland. ??? Having recently had urinary tract surgery. ??? Having a problem with a backward flow of urine (retrograde). In men who have a condition that weakens the body's defense system (immune system), such as human immunodeficiency virus (HIV), this condition can be caused by: ??? Other bacteria, including tuberculosis and syphilis. ??? Viruses. ??? Fungi. Sometimes this condition occurs without infection. This may happen because of trauma or repetitive activities such as sports. What increases the risk? You are more likely to develop this condition if you have: ??? Unprotected sex with more than one partner. ??? Anal sex. ??? Had recent surgery. ??? A urinary catheter. ??? Urinary problems. ??? A suppressed immune system. What are the signs or symptoms? This condition usually begins suddenly with chills, fever, and pain behind the scrotum and in the testicle. Other symptoms include: ??? Swelling of the scrotum, testicle, or both. ??? Pain when ejaculating or urinating. ??? Pain in the back or abdomen. ??? Nausea. ??? Itching and discharge from the penis. ??? A frequent need to pass urine. ??? Redness, increased warmth, and tenderness of the scrotum. How is this diagnosed? Your health care provider can diagnose this condition based on your symptoms and medical history. Your health care provider will also do a physical exam to check your scrotum and testicle for swelling, pain, and redness. You may also have other tests, including: ??? Testing of discharge from the penis. ??? Testing your urine for infections, such as STIs. ??? Ultrasound to check for blood flow and inflammation. Your health care provider may test you for other STIs, including HIV. How is this treated? Treatment for this condition depends on the cause. If your condition is caused by a bacterial infection, oral antibiotic medicine may be prescribed. If the bacterial infection has spread to your blood, you may need to receive IV antibiotics. For both bacterial and nonbacterial epididymitis, you may be treated with: ??? Rest. ??? Elevation of the scrotum. ??? Pain medicines. ??? Anti-inflammatory medicines. Surgery may be needed if: ??? You have pus buildup in the scrotum (abscess). ??? You have epididymitis that has not responded to other treatments. Follow these instructions at home: Medicines ??? Take mjnn-vgh-odaidml and prescription medicines only as told by your health care provider. ??? If you were prescribed an antibiotic medicine, take it as told by your health care provider. Do not stop taking the antibiotic even if your condition improves. Sexual activity ??? If your epididymitis was caused by an STI, avoid sexual activity until your treatment is complete. ??? Inform your sexual partner or partners if you test positive for an STI. They may need to be treated. Do not engage in sexual activity with your partner or partners until their treatment is completed. Managing pain and swelling ??? If directed, raise (elevate) your scrotum and apply ice. To do this: ? Put ice in a plastic bag. ? Place a small towel or pillow between your legs. ? Rest your scrotum on the pillow or towel. ? Place another towel between your skin and the plastic bag. ? Leave the ice on for 20 minutes, 2?3 times a day. ? Remove the ice if your skin turns bright red. This is very important. If you cannot feel pain, heat, or cold, you have a greater risk of damage to the area. ??? Keep your scrotum elevated and supported while resting. Ask your health care provider if you should wear a scrotal support, such as a jockstrap. Wear it as told by your health care provider. ??? Try taking a sitz bath to help with discomfort. This is a warm water bath that is taken while you are sitting down. The water should come up to your hips and should cover your buttocks. Do this 3?4 times per day or as told by your heal (more content not included)... [facility] 10-07-2024 History of Present illness Narrative [facility] [address] [place] [address] Patient: Oscar Escoto Sex: male : 1950 Age: 74 y.o. PCP: NORTH CHAPIN MD 10/07/2024 Oscar Escoto is here for a(n) follow up with new onset Lt Knee pain. Date of onset of pain: Jun 2024 , pain has lasted greater than 3 months. Chief Complaint Patient presents with Knee Pain HPI: Previous Right L 02/27 03/25 MBB with 100% relief for couple hours 02/08/23 Left hip with 90% relief continued. 03/12/23 Left ischial bursa injection (in office) with 75% relief reported left ischial bursa injection on 04/25/2023 with significant relief left Ischial bursa on 08/16/2023 with 80-90% relief until recently Knee Pain The incident occurred more than 1 week ago (Jun 2024). The injury mechanism was a fall. The pain is present in the left knee. The quality of the pain is described as aching and stabbing. Pain scale: 1/10 sitting, 7/10 stairs. The pain is moderate. The pain has been Worsening since onset. Pertinent negatives include no inability to bear weight, muscle weakness, numbness or tingling. He reports no foreign bodies present. The symptoms are aggravated by movement, weight bearing and palpation. He has tried heat, acetaminophen, rest and non-weight bearing (HEP) for the symptoms. The treatment provided mild relief. Hip Pain Incident onset: No incident. This is a chronic problem. The current episode started 2018. Incident location: No incident location. The problem occurs constantly while sitting. The problem has been gradually improving since onset. There was no injury mechanism. The pain is present in the left hip. The quality of the pain is described as aching. The pain is at a severity of 0/10. The patient is experiencing no pain. The pain has been Improving since onset. Pertinent negatives include no inability to bear weight, muscle weakness, numbness or tingling. He reports no foreign bodies present. The symptoms are aggravated by movement, palpation and weight bearing (riding motorcycle, prolong sitting). Treatments tried: ice and heat with moderate relief. Previous in office injections left hip with significant relief, unable to provide % relief. The treatment provided significant relief. Back Pain This is a chronic problem. The current episode started more than 1 year ago (2019). The problem occurs constantly. The problem is unchanged. The pain is present in the lumbar spine. The quality of the pain is described as aching. The pain does not radiate. The pain is at a severity of 3/10. The pain is mild. The pain is The same all the time. The symptoms are aggravated by sitting, standing, bending and lying down. Stiffness is present All day. Pertinent negatives include no bladder incontinence, bowel incontinence, chest pain, fever, leg pain, numbness, tingling or weakness. He has tried ice and heat (PT/HEP (@ 2021), heat with moderate relief; ) for the symptoms. The treatment provided significant relief. The effect of pain on patient's ADLS: Moderate Impairment. Past Medical History: Diagnosis Date Afib ([facility]) Back pain lumbar BPH (benign prostatic hyperplasia) Cancer ([facility]) multiple basal cell Chronic pain disorder Hip pain, chronic, left Inguinal hernia right Joint pain Low back pain Osteoarthritis Restless leg syndrome Sleep apnea instructed to bring CPAP to hospital Umbilical hernia Visual impairment glasses Past Surgical History: Procedure Laterality Date ADENOIDECTOMY COLONOSCOPY DENTAL SURGERY FOOT SURGERY 10/2021 right foot, 09/2022 left foot GANGLION CYST EXCISION from neck INJECTION BURSA LARGE JOINT: left hip Left 02/08/2023 Performed by Umair Decker MD at [facility] INJECTION BURSA LARGE JOINT: left ischial bursa Left 08/16/2023 Performed by Umair Decker MD at [facility] INJECTION LARGE JOINT BURSA Right 04/12/2017 Performed by Umair Decker MD at [facility] INJECTION MEDIAL BRANCH NERVE BLOCK: right [id number] Right 08/12/2020 Performed by Umair Decker MD at [facility] INSERTION LOOP RECORDER 01/24/2023 Dr Amin at [facility] JOINT REPLACEMENT right hip ORTHOPEDIC SURGERY Left 2012 wrist fixation RADIO FREQUENCY ABLATION: right [id number] Right 09/23/2020 Performed by Umair Decker MD at [facility] REPAIR HERNIA INGUINAL WITH MESH Right 09/23/2018 Performed by Ventura Watosn DO at [facility] REPAIR HERNIA UMBILICAL WITH MESH N/A 09/23/2018 Performed by Ventura Watson DO at [facility] REPLACEMENT TOTAL JOINT ANTERIOR SUPINE INTERMUSCULAR HIP Right 07/10/2017 Performed by Schuyler Ambrocio MD at [facility] TONSILLECTOMY WRIST SURGERY No Known Allergies Family History Problem Relation Age of Onset Cancer Mother Heart disease Mother Cancer Father Anesthesia problems Neg Hx Social History Socioeconomic History Marital status: Spouse name: Not on file Number of children: Not on file Years of education: Not on file Highest education level: Not on file Occupational History Not on file Tobacco Use Smoking status: Never Smokeless tobacco: Never Substance and Sexual Activity Alcohol use: Yes Comment: One drink per week Drug use: No Sexual activity: Defer Other Topics Concern Not on file Social History Narrative Not on file Social Drivers of Health Financial Resource Strain: Low Risk (02/03/2024) Received from [facility] beds at the [facility] Overall Financial Resource Strain (CARDIA) Difficulty of Paying Living Expenses: Not hard at all Food Insecurity: No Food Insecurity (10/07/2024) Hunger Screening Food Insecurity - Worry: Never True Food Insecurity - Inability: Never True Transportation Needs: No Transportation Needs (02/03/2024) Received from [facility] at [facility] PRAPARE - Transportation Lack of Transportation (Medical): No Lack of Transportation (Non-Medical): No Physical Activity: Sufficiently Active (02/03/2024) Received from [facility] at [facility] Exercise Vital Sign Days of Exercise per Week: 3 days Minutes of Exercise per Session: 60 min Stress: No Stress Concern Present (02/03/2024) Received from [facility] beds at the [facility] [place] of Occupational Health - Occupational Stress Questionnaire Feeling of Stress : Not at all Social Connections: Moderately Integrated (02/03/2024) Received from [facility] beds at the [facility] Social Connection and Isolation Panel [NHANES] Frequency of Communication with Friends and Family: Once a week Frequency of Social Gatherings with Friends and Family: Once a week Attends Sikh Services: More than 4 times per year Active Member of Clubs or Organizations: Yes Attends Club or Organization Meetings: More than 4 times per year Marital Status: Interpersonal Safety: Unknown (01/16/2024) [facility] [place] Safety & Environment Fear of Current or Ex-Partner: Not on file Emotionally Abused: Not on file Physically Abused: Not on file Sexually Abused: Not on file Physically or Sexually Abused: Not on file Housing Instability: Low Risk (02/03/2024) [facility] Housing Stability Vital Sign Unable to Pay for Housing in the Last Year: No Number of Places Lived in the Last Year: 1 Unstable Housing in the Last Year: No Review of Systems Constitutional: Negative for chills and fever. HENT: Negative. Eyes: Negative. Respiratory: Negative for cough and shortness of breath. Cardiovascular: Negative for chest pain. Gastrointestinal: Negative for bowel incontinence. Endocrine: Negative. Genitourinary: Negative. Negative for bladder incontinence. Musculoskeletal: Positive for back pain. Lt Knee, Lt Hip Skin: Negative. Allergic/Immunologic: Negative. Neurological: Negative for tingling, weakness and numbness. Hematological: Negative. Psychiatric/Behavioral: Negative. Vital Signs: BP 133/68 (BP Site: Right Arm) Pulse 66 Ht 188 cm (6' 2 ) Wt 110.7 kg (244 lb) SpO2 94% BMI 31.33 kg/m Physical Exam: GENERAL - Healthy patient that appears stated age. HEENT - Normocephalic / Atraumatic, Extraoccular movements intact, trachea midline, thyroid within normal limits. CV - pulse regular, Warm extremities with appropriate color of nailbeds. RESP - No obvious wheezing, No Shortness of Breath, No overexertion response to exam maneuvers. COORDINATION - remains intact. PSYCH - Alert and Oriented x4, Attentive and appropriate, constitutionally normal, displays normal mood and affect per situation, answered questions appropriately during examination, demonstrated appropriate attention during discussion, demonstrated appropriate cognitive reasoning and understanding of the medical condition by asking appropriate questions regarding the diagnosis and risks/benefits/alternatives of treatment modalities. No obvious deficits in memory, reasoning, or intellect. Distal Joint Exam - Lower Extremity: SKIN - No rashes or bruising in the area of the patient s pain. EXTREMITIES - Lower extremities are warm, with minimal edema and palpable pulses. Strength is 5/5 all muscle groups of the bilateral lower extremities. There is no obvious atrophy, fasciculations, or spasms. There are no notable sensory deficits in the overlying dermatomal distributions. Gait remains antalgic. Examination of the Left knee reveals tenderness to palpation over the superior, inferior, lateral, and medial aspect of the knee. Some swelling is noted without significant erythema. Pain is elicited with flexion and extension of the knee both actively and passively. Some grinding is noted with these motions. There is no notable ligamental laxity or instability and drawer test is negative. Assessment/Treatment Plan: Joao was seen today for knee pain. Diagnoses and all orders for this visit: Left knee pain, unspecified chronicity - X-ray knee left 3 views; Future - Ambulatory referral to Physical Therapy (Non-[facility]); Future OTC Voltaren gel With Regard to medication management, it is felt that the patient would benefit from the changes mentioned above. This should provide symptomatic pain relief as part of the comprehensive pain management strategy outlined. Risks, Benefits, Side effects, and possible interactions of these medications were reviewed and the medication agreement has been discussed, agreed upon, and signed. The patient understands compliance concerns and the requirement of pill counts and drug screens while taking medications prescribed by this clinic. Left Knee xray Imaging/Diagnostic Testing - It is felt that additional diagnostic testing is necessary to further evaluate the patients current pain pathology. For this reason, we will order additional imaging/diagnostic testing noted above. It is hopeful that this study will identify a significant pain generator that will be amenable to therapy. It is felt that this modality is necessary due to the severity and chronicity of symptoms and physical exam findings combined with the lack of recent imaging/diagnostic testing of the area. Physical/Aquatic Therapy - It is felt that the patient will benefit from a course of physical therapy focusing on the above mentioned diagnosis. We will recommend that the physical therapist fully evaluate and treat at their discretion considering the modalities that are most useful for the condition being treated. This may include modalities of comfort including moist heat, ultrasound, and TENS therapy. It may also utilize manual therapy and myofascial release for the myofascial component of the patient s pain. It will likely advance to modalities aimed at stabilizing and strengthing the target area while improving range of motion as well. We are also requesting that the physical therapist send notes that will keep our clinic updated to the patient s progress. Follow up 6 weeks The medications I have prescribed have been reviewed for medication interactions/contraindications and/or for upcoming procedures: continue current medication regimen without any changes. DISCUSSION: Treatment options discussed with patient and all questions answered to patient's satisfaction. Prescribed medication that requires intensive monitoring for toxicity We do not currently prescribe any controlled substance from this practice. Treatment plans discussed but not opted for at this time: Left knee injections. Patient would like to proceed with the current outlined treatment plan before moving forward with any other options. Chronic conditions not treated during this visit that affected my overall medical decision making: Anti-coagulation therapy OARRS: Reviewed. Scribe Statement: Scribed for and in the presence of CECILIA ANDERSON PA-C by Jaelyn Guevara CNA. Provider Statement: I, CECILIA ANDERSON PA-C, personally performed the services described in the documentation, as scribed by Jaelyn Guevara CNA in my presence, and it is both accurate and complete. Jaelyn Guevara CNA 10/07/24 1420 Cecilia Anderson PA-C 10/07/24 1437 documented in this encounter [facility] 08-13-2024 History of Present illness Narrative Images from the original note were not included. Skin Check Location: Patient requests a skin examination from the waist up Dermatologic history: history of Actinic Keratosis, history of Basal Cell Carcinoma - does not like Efudex cream Last visit: 6 months ago Established patient Lesions: Location: Neck, and right ear Duration: A while, figured I was coming in so I waited. Quality: Stings when perspiring Associated symptoms: Scaly spots Treatments: None All pertinent medical history, medications, and allergies were reviewed. General Exam: alert , oriented to person, place, and time , normal affect, well appearing A complete skin exam was offered, pt declined. Areas not examined despite medical recommendation: From the waist down Scalp, Examined Head, Face Examined Neck Examined Chest Examined Back Examined Abdomen Examined Right arm Examined Left arm Examined Hands Examined Digits,nails: Examined 1. Seborrheic keratosis Stuck on verrucous, owusu-brown papules and plaques. Patient was counseled regarding these benign growths. Removal is normally not necessary, but they may be removed if they are symptomatic or for cosmetic reasons. 2. Lentigines Scattered owusu macules in sun-exposed areas. The patient was informed that lentigines are benign pigmented lesions that occur on sun-exposed and sun-damaged skin. No treatment is necessary. Recommended regular use of broad spectrum sunscreen SPF 30 or higher 3. Melanocytic nevus of trunk Scattered benign appearing, regular brown to light brown melanocytic papules and macules with similar morphology Counseled regarding these benign growths. Rarely, a nevus can develop into malignant melanoma, so any changing nevi should be promptly re-evaluated. 4. Angioma of skin Trunk Scattered lopez-red papule(s). The patient was informed that angiomas are benign growths on the the skin. No treatment is necessary. 5. Actinic keratosis (20) Left Eyebrow, Left Malar Cheek, Left Nasal Sidewall, Left Parotid Area, Left Preauricular Area, Left Zygomatic Area, Mid Occipital Scalp, Mid Parietal Scalp (5), Right Anterior Neck, Right Mid [place], Right Parotid Area, Right Posterior Neck, Right Preauricular Area, Right Superior [place], Right Glynn, Right Temporal Scalp Erythematous scaly papules Patient was counseled regarding these sun-induced growths that can develop into squamous cell carcinoma if left untreated. Discussed treatment with cryotherapy. It was emphasized that any treated lesions that fail to resolve should be re-evaluated. Cryotherapy performed today; see procedure note Diagnosis: Actinic keratosis Indication: Precancerous Location: see skin exam Consent: Verbal consent was obtained and risks were discussed, including, but not limited to risks of scarring, darker or associate financial advisor pigmentary changes, recurrence, incomplete removal and infection. Method: Liquid nitrogen was used to treat the lesion(s) with two 5-10 second freeze-thaw cycles. Number of lesions treated: 20 Post-procedure instructions: Instructions were given orally and in writing. The office will be contacted if the lesion fails to resolve despite treatment, or if a side effect develops such as abnormal crusting, scabbing, redness or tenderness Cryotherapy, skin lesion - Left Eyebrow, Left Malar Cheek, Left Nasal Sidewall, Left Parotid Area, Left Preauricular Area, Left Zygomatic Area, Mid Occipital Scalp, Mid Parietal Scalp (5), Right Anterior Neck, Right Mid [place], Right Parotid Area, Right Posterior Neck, Right Preauricular Area, Right Superior [place], Right Glynn, Right Temporal Scalp 6. History of basal cell carcinoma No evidence of recurrence at BCC scar. The patient was counseled that scars from excisional sites of nonmelanoma skin cancers should be monitored closely for recurrence. The patient was instructed to contact the office for any new, changing, or symptomatic moles. The patient was also instructed to contact the office for any new lesions that develop within or around the previous surgery scar. 7. Neoplasm of unspecified behavior of bone, soft tissue, and skin Neck - Posterior Irregularly pigmented macule Lesion biopsy Type of biopsy: tangential Informed consent: discussed and consent obtained Informed consent comment: The risks and benefits of the biopsy were discussed. Risks include but are not limited to bleeding, infection, scarring, pain, and nerve damage. An opportunity to ask questions prior to the procedure was permitted and all questions were answered. Patient was prepped and draped in usual sterile fashion: area cleansed with alcohol. Anesthesia: the lesion was anesthetized in a standard fashion Anesthetic: 1% lidocaine w/ epinephrine 1-100,000 buffered w/ 8.4% NaHCO3 Instrument used: DermaBlade Hemostasis achieved with: electrodesiccation Outcome: patient tolerated procedure well Outcome comment: The specimen was placed in a prelabeled formalin container to be sent for pathology Post-procedure details: sterile dressing applied and wound care instructions given Post-procedure details comment: Emphasized need to contact clinic for any signs of infection, uncontrollable bleeding, or complications. Dressing type: bandage Additional details: Photo taken Amount of lidocaine used: 1.0 cc Specimen A - Dermatopathology exam Differential Diagnosis: lentigo vs melanoma Check Margins: No Size of lesion: 0.6 x 0.5 cm Next Visit: pending biopsy results, 6 months skin check documented in this encounter [facility] 06-09-2024 Note [facility] Consult Note Reason for visit: Dizziness/SVT Patient here for 3 mo follow up PAF, AVNRT, SVT, and atrial flutter. He had routine labs w/ lipid profile in March 2024. He is doing very well. Denies chest pain, SOB, palpitations, lightheadedness/syncope, and bleeding on Xarelto. patient underwent EP study and ablation on 02/12/2024 and following that he had successful ablation of AVNRT. atrial fibrillation was also noted which organized into atrial flutter and flutter ablation was performed. there was easily inducible A-fib which was cardioverted with the help of ibutilide infusion. Since then he has done very well and no AF February 12, 2024 All episodes in EP lab. 12/03/23 Loop data reviewed by me and [...] evidence of A. Fib. Prior HPI: Oscar Escoto is a 74 y.o. year old with past medical history of atrial fibrillation that was diagnosed few years ago here he was admitted to [facility] with A. fib with rapid ventricular rate. [...] 48 hours from 12/24/2021 to 12/10/2021 at [facility] was reviewed by me and shows PVC burden of less than 1% and PVC count of 6%. Occasional nonsustained atrial tachycardia few beats seen but no atrial fibrillation noted. 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 [facility] 03-17-2024 Note Patient here for fol low up EP study and ablation. He went into afib during procedure and was started on Xarelto. Denies chest pain, SOB, lightheadedness, and bleeding on Xarelto. Says his palpitations have subsided. Review of Systems Musculoskeletal: Positive for arthritis and joint pain. All other systems reviewed and are negative. [facility] 03-17-2024 Note Cardiovascular Medic [facility] SUBJECTIVE Chief Complaint Patient presents with Atrial Fibrillation Osacr Escoto is a 74 y.o. male here for [...] episode of global amnesia driving back from [place] in early January, - this was prior [...] Final Atrial Rate 02/12/2024 61 BPM Final NV Interval 02/12/2024 184 ms Final QRS DURATION 02/12/2024 102 ms Final QT Interval 02/12/2024 424 ms Final QTC CALCULATION(BAZETT) 02/12/2024 426 ms Final P Sully 02/12/2024 39 degrees Final R-Sully 02/12/2024 -11 degrees Final T Wave Sully 02/12/2024 44 degrees Final Ventricular Rate 02/12/2024 55 BPM Final Atrial Rate 02/12/2024 55 BPM Final NV Interval 02/12/2024 198 ms Final QRS DURATION 02/12/2024 104 ms Final QT Interval 02/12/2024 470 ms Final QTC CALCULATION(BAZETT) 02/12/2024 449 ms Final P Sully 02/12/2024 34 degrees Final R-Sully (more content not included)... [facility] 06-24-2023 Hospital Discharge instructions Patient Education [...] urethra. Follow these instructions at home: Take kvjq-gus-vbqgwja and prescription medicines only as told by [...] provider. Document Revised: 05/30/2022 Document Reviewed: 05/30/2022 [employer] Patient Education 2022 [employer]. Follow Up Care 05/07/2022 15:53:47 With:ESEQUIEL RUSSELL, Natali Gonzalez, URL Address: [facility] [address] [place] [address]- [phone] When: Unknown Comments:1 yr w/ PSA [facility] 12-18-2022 Note PROCEDURE: XR FOOT L T [...] authenticated by: MARÍA BRYSON Date: 2022-12-18 09:32 [facility] 11-06-2022 Note PROCEDURE: XR FOOT L [...] authenticated by: RAZ MATOS Date: 2022-11-06 15:27 [facility] 10-17-2022 Note PROCEDURE: XR FOOT L [...] authenticated by: RAZ MATOS Date: 2022-10-17 10:46 [facility] 09-27-2022 Note PROCEDURE: XR FOOT L [...] by: MARÍA BRYSON Date: 2022-09-27 18:29 [facility] 05-15-2022 Note PROCEDURE: XR FOOT R T [...] authenticated by: MARÍA BRYSON Date: 2022-05-15 21:39 [facility] 05-07-2022 Hospital Discharge instructions Patient Education [...] 11/11/2006 Document Revised: 07/31/2019 Document Reviewed: 10/11/2017 [employer] Patient Education 2020 [employer]. 05/07/2022 15:46:01 Benign Prostatic Hyperplasia Benign Prostatic [...] urethra. Follow these instructions at home: Take euej-qgu-gmdkqmv and prescription medicines only as told by [...] 11/11/2006 Document Revised: 10/06/2019 Document Reviewed: 12/16/2017 [employer] Patient Education 2020 [employer]. Follow Up Care 09/04/2021 16:41:31 With:Natali IRAHETA MD, URL Address: [facility] [address], [place] [address]- [phone] When:Within 1 Year(s) Comments:f/u in 1 year with PSA and NAIMA [facility] Evaluation + Plan note Future Appointments Appointment Date:05/13/2023 03:00:00 PM Scheduled Provider:Natali IRAHETA MD Location:[facility] Appointment Type:URO Office Visit Diagnostic Tests PendingPSA Total 05/07/22 [facility] Evaluation + Plan note Future Appointments Appointment Date:06/29/2024 03:00:00 PM Scheduled Provider:Natali IRAHETA MD Location:[facility] Appointment Type:URO Office Visit Diagnostic Tests PendingPSA Total 06/24/23 [facility] Evaluation + Plan note Future Appointments Appointment Date:04/12/2025 01:15:00 PM Scheduled Provider:Natali IRAHETA MD Location:[facility] Appointment Type:URO Office Visit Diagnostic Tests PendingPSA Total 10/12/24 [facility] Evaluation note No assessment inform ation available [facility] Work Phone: Evaluation note Diagnosis Transient global amnesia- Primary Claustrophobia (CMS/HCC) Other isolated or specific phobias Medicare annual wellness visit, subsequent- Primary Dyslipidemia (CMS/HCC) Other and unspecified hyperlipidemia Encounter for long-term (current) use of medications Encounter for long-term (current) use of other medications Prediabetes Other abnormal glucose Screening PSA (prostate specific antigen) Special screening for malignant neoplasm of prostate Obesity (BMI 30-39.9) Left knee pain, unspecified chronicity- Primary [facility] Diagnosis Transient global amnesia- Primary Claustrophobia (CMS/HCC) Other isolated or specific phobias Medicare annual wellness visit, subsequent- Primary Dyslipidemia (CMS/HCC) Other and unspecified hyperlipidemia Encounter for long-term (current) use of medications Encounter for long-term (current) use of other medications Prediabetes Other abnormal glucose Screening PSA (prostate specific antigen) Special screening for malignant neoplasm of prostate Obesity (BMI 30-39.9) Left knee pain, unspecified chronicity- Primary [facility]* Diagnosis Transient global amnesia- Primary Claustrophobia (CMS/HCC) Other isolated or specific phobias Medicare annual wellness visit, subsequent- Primary Dyslipidemia (CMS/HCC) Other and unspecified hyperlipidemia Encounter for long-term (current) use of medications Encounter for long-term (current) use of other medications Prediabetes Other abnormal glucose Screening PSA (prostate specific antigen) Special screening for malignant neoplasm of prostate Obesity (BMI 30-39.9) Left knee pain, unspecified chronicity- Primary [facility]* Diagnosis Transient global amnesia- Primary Claustrophobia (CMS/HCC) Other isolated or specific phobias Medicare annual wellness visit, subsequent- Primary Dyslipidemia (CMS/HCC) Other and unspecified hyperlipidemia Encounter for long-term (current) use of medications Encounter for long-term (current) use of other medications Prediabetes Other abnormal glucose Screening PSA (prostate specific antigen) Special screening for malignant neoplasm of prostate Obesity (BMI 30-39.9) Left knee pain, unspecified chronicity- Primary [facility]* Diagnosis Seborrheic keratosis- Primary Lentigines Melanocytic nevus of trunk Benign neoplasm of skin of trunk, except scrotum Angioma of skin Actinic keratosis History of basal cell carcinoma Personal history of other malignant neoplasm of skin Neoplasm of unspecified behavior of bone, soft tissue, and skin documented [facility]* Diagnosis Transient global amnesia- Primary Claustrophobia (CMS/HCC) Other isolated or specific phobias Medicare annual wellness visit, subsequent- Primary Dyslipidemia (CMS/HCC) Other and unspecified hyperlipidemia Encounter for long-term (current) use of medications Encounter for long-term (current) use of other medications Prediabetes Other abnormal glucose Screening PSA (prostate specific antigen) Special screening for malignant neoplasm of prostate Obesity (BMI 30-39.9) Left knee pain, unspecified chronicity- Primary Arthritis of left knee [facility]* Diagnosis Transient global amnesia- Primary Claustrophobia (CMS/HCC) Other isolated or specific phobias Medicare annual wellness visit, subsequent- Primary Dyslipidemia (CMS/HCC) Other and unspecified hyperlipidemia Encounter for long-term (current) use of medications Encounter for long-term (current) use of other medications Prediabetes Other abnormal glucose Screening PSA (prostate specific antigen) Special screening for malignant neoplasm of prostate Obesity (BMI 30-39.9) Left knee pain, unspecified chronicity- Primary Arthritis of left knee Internal derangement of left knee [facility]* Diagnosis Transient global amnesia- Primary Claustrophobia (CMS/HCC) Other isolated or specific phobias Medicare annual wellness visit, subsequent- Primary Dyslipidemia (CMS/HCC) Other and unspecified hyperlipidemia Encounter for long-term (current) use of medications Encounter for long-term (current) use of other medications Prediabetes Other abnormal glucose Screening PSA (prostate specific antigen) Special screening for malignant neoplasm of prostate Obesity (BMI 30-39.9) Anxiety disorder, unspecified type Restless leg syndrome Restless legs syndrome (RLS) documented in this encounter [facility]* Diagnosis Medicare annual wellness visit, subsequent- Primary Dyslipidemia (CMS/HCC) Other and unspecified hyperlipidemia Encounter for long-term (current) use of medications Encounter for long-term (current) use of other medications Prediabetes Other abnormal glucose Screening PSA (prostate specific antigen) Special screening for malignant neoplasm of prostate Obesity (BMI 30-39.9) Left knee pain, unspecified chronicity- Primary Internal derangement of left knee documented in this encounter [facility] note* Diagnosis Left knee pain, unspecified chronicity- Primary documented in this encounter [facility] Diagnosis Medicare annual wellness visit, subsequent- Primary Dyslipidemia (CMS/HCC) Other and unspecified hyperlipidemia Encounter for long-term (current) use of medications Encounter for long-term (current) use of other medications Prediabetes Other abnormal glucose Screening PSA (prostate specific antigen) Special screening for malignant neoplasm of prostate Obesity (BMI 30-39.9) Pre-op examination- Primary documented in this encounter [facility] note* Diagnosis Medicare annual wellness visit, subsequent- Primary Dyslipidemia (CMS/HCC) Other and unspecified hyperlipidemia Encounter for long-term (current) use of medications Encounter for long-term (current) use of other medications Prediabetes Other abnormal glucose Screening PSA (prostate specific antigen) Special screening for malignant neoplasm of prostate Obesity (BMI 30-39.9) Internal derangement of left knee- Primary documented in this encounter [facility] course Narrative No data available for this section [facility] InstructionsNot on filedocumented in this encounter [facility] No data available for this section [facility] reason for referral (narrative)* Clinic-Administered Medication (Routine) - Closed Specialty Diagnoses / Procedures Referred By Contac t Referred To Contact Orthopaedic Surgery Procedures L Inj/Asp: L knee Mary Lou Daine NP [address] [place] [address] Phone: tel: fax: Referral ID Status Reason Start Date Expiration Date Visits Re quested Visits Authorized [id number] Closed 11/09/2024 05/08/2025 1 1 [facility] - Outpatient (Routine) - Authorized Specialty Diagnoses / Procedures Referred By Contac t Referred To Contact Physical Therapy Diagnoses Pain in left knee Procedures NV PHYSICAL THERAPY EVALUATION LOW COMPLEX 20 MINS NV OFFICE/OUTPATIENT NEW HIGH Cecilia Sanchez MD [address] [place] [address] Phone: tel: fax: Yenny Rowe, EM Referral ID Status Reason Start Date Expiration Date V isits Requested Visits Authorized [id number] Authorized 10/20/2024 04/18/2025 99 99 [facility] HealthcareReason for visit Narrative* Rehabilitation - Outpatient (Routine) - Authorized Specialty Diagnoses / Procedures Referred By Contchristoph t Referred To Contact Physical Therapy Diagnoses Pain in left knee Procedures NV PHYSICAL THERAPY EVALUATION LOW COMPLEX 20 MINS NV OFFICE/OUTPATIENT NEW HIGH Cecilia Sanchez MD [address] [place] [address] Phone: tel: fax: Yenny Rowe, EM Referral ID Status Reason Start Date Expiration Date V isits Requested Visits Authorized [id number] Authorized 10/20/2024 11/24/2024 99 99 [facility] Healthcare Chief Complaint and Reason for Visit Chief [...] Status: Inactive Member Role Status Dates Sakina Carpneter MD Attending Provider Active 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 Relationship Specialty Start Date End Date North Chapin MD [address] [place] [address] PCP - General Family Medicine 02/04/24 North Chapin MD [address] [place] [address] PCP - [employer] 02/24/24 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 Relationship Specialty Start Date End Date North Chapin MD [address] [place] [address] PCP - General Family Medicine 02/04/24 North Chapin MD [address] [place] [address] PCP - [employer] 02/24/24 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 Relationship Specialty Start Date End Date North Chapin MD [address] [place] [address] PCP - General Family Medicine 02/04/24 North Chapin MD [address] [place] [address] PCP - [employer] 02/24/24 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 Relationship Specialty Start Date End Date North Chapin MD [address] [place] [address] PCP - General Family Medicine 02/04/24 North Chapin MD [address] [place] [address] PCP - [employer] 02/24/24 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 Relationship Specialty Start Date End Date North Chapin MD [address] [place] [address] PCP - General Family Medicine 02/04/24 North Chapin MD [address] [place] [address] PCP - [employer] 02/24/24 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 Relationship Specialty Start Date End Date North Chapin MD [address] [place] [address] PCP - General [facility] Medicine 02/04/24 North Chapin MD [address] [place] [address] PCP - [employer] 02/24/24 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 Relationship Specialty Start Date End Date North Chapin MD [address] [place] [address] PCP - [facility] 02/04/24 North Chapin MD [address] [place] [address] PCP - [employer] 02/24/24 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 Relationship Specialty Start Date End Date North Chapin MD [address] [place] [address] PCP - General Family Medicine 02/04/24 North Chapin MD [address] [place] [address] PCP - [employer] 02/24/24 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 Relationship Specialty Start Date End Date North Chapin MD [address] [place] [address] PCP - General Family Medicine 02/04/24 North Chapin MD [address] [place] [address] PCP - [employer] 02/24/24 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 Relationship Specialty Start Date End Date North Chapin MD [address] [place] [address] PCP - General Family Medicine 02/04/24 North Chapin MD [address] [place] [address] PCP - [employer] 02/24/24 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 Relationship Specialty Start Date End Date North Chapin MD [address] [place] [phone] PCP - General Family Medicine 02/04/24 North Chapin MD [address] [place] [phone] PCP - [employer] 02/24/24 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 Relationship Specialty Start Date End Date North Chapin MD [address] [place] [address] PCP - General Family Medicine 02/04/24 North Chapin MD [address] [place] [address] PCP - [employer] 02/24/24 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 Relationship Specialty Start Date End Date North Chapin MD [address] [place] [address] PCP - General Family Medicine 02/04/24 North Chapin MD [address] [place] [address] PCP - [employer] 02/24/24 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 Relationship Specialty Start Date End Date North Chapin MD [address] [place] [address] PCP - General Family Medicine 02/04/24 Nroth Chapin MD [address] [place] [address] PCP - [employer] 02/24/24 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 Relationship Specialty Start Date End Date North Chapin MD [address] [place] [address] PCP - General Family Medicine 02/04/24 North Chapin MD [address] [place] [address] PCP - [employer] 02/24/24 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 Relationship Specialty Start Date End Date North Chapin MD [address] [place] [phone] PCP - General Family Medicine 02/04/24 North Chapin MD [address] [place] [phone] PCP - t 02/24/24 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 Relationship Specialty Start Date End Date North Chapin MD [address] [place] [phone] PCP - General Family Medicine 02/04/24 North Chapin MD [address] [place] [phone] PCP - [facility] 02/24/24 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 Relationship Specialty Start Date End Date North Chapin MD [address] [place] [phone] PCP - General Family Medicine 10/07/24 Goals (unrecognized section and content) Goals may be documented in a n alternate section (unrecognized sect ion and content) No Status Records FoundNo Status Records FoundNo Status Records FoundNo Status Records FoundNo Status Records FoundNo Status Records FoundNo Status Records Found INFORMATION SOURCE (unrecogn ized section and content) DATE CREATED AUTHOR 03/24/2023 [facility] DATE CREATED AUTHOR AUTHOR'S ORGANIZ ATION 04/10/2023 [facility] DATE CREATED AUTHOR AUTHOR'S ORGANIZ ATION 10/09/2024 [facility] DATE CREATED AUTHOR AUTHOR'S ORGANIZ ATION 10/15/2024 [facility] DATE CREATED AUTHOR AUTHOR'S ORGANIZ ATION 02/08/2025 [facility] DATE CREATED AUTHOR AUTHOR'S ORGANIZ ATION 03/03/2025 [facility] DATE CREATED AUTHOR AUTHOR'S ORGANIZ ATION 03/06/2025 [facility] Reason for Visit (unrecogniz ed section and content) Reason Comments Pain Reason Comments Follow-up Reason Comments Med Refill Reason Onset Date Comments MRI 12/10/2024 Reason Onset Date Comments RX 12/11/2024 Reason Comments Follow-up Reason Comments Knee Pain Reason Comments Pre-op Exam FOR RECORDS PERTAINING TO PATIENTS WHO ARE [...] BE BASED ON THE PRIMARY CLINICAL RECORDS. [employer] [facility]. provides no warranty or guarantee of the accuracy or completeness of information in this document.
--- NOTE | 2025-03-08 19:20 | ED.WOUNDLAC1 ---
HPI - Wound/Laceration General Chief Complaint: Wound/Laceration Stated Complaint: Laceration Time Seen by Provider: 03/08/25 19:12 Source: patient Mode of arrival: ambulance History of Present Illness HPI narrative: laceration left index finger while making dinner. No FB. no numbness or weakness. Denies other injury Related Data Home Medications ?Medication ?Instructions ?Recorded ?Confirmed diltiazem HCl 180 mg 240 mg PO Q24H 10/31/23 03/08/25 capsule,extended release 24 hr, controlled doxepin 50 mg capsule 50 mg PO QPM 10/31/23 03/08/25 famotidine 20 mg tablet 20 mg PO DAILY 10/31/23 03/08/25 finasteride 5 mg tablet 5 mg PO DAILY 10/31/23 03/08/25 ropinirole 2 mg tablet 2 mg PO QPM 10/31/23 03/08/25 tamsulosin 0.4 mg capsule 0.4 mg PO Q24H 10/31/23 03/08/25 lisinopril 5 mg tablet 5 mg PO DAILY 03/08/25 03/08/25 Allergies Allergy/AdvReac Type Severity Reaction Status Date / Time No Known Drug Allergies Allergy Verified 03/08/25 18:16 Review of Systems ROS Status of ROS 10 or more systems reviewed and unremarkable except as noted in history and below [facility] Medical History (Updated 03/08/25 @ 20:01 by Soham Reyes MD) Degenerative disc disease Back pain ?M54.9 - Dorsalgia, unspecified (ICD-10) Obstructive sleep apnea ?G47.33 - Obstructive sleep apnea (adult) (pediatric) (ICD-10) Benign prostatic hyperplasia ?N40.0 - Benign prostatic hyperplasia without lower urinary tract symptoms (ICD-10) Abdominal hernia ?K46.9 - Unspecified abdominal hernia without obstruction or gangrene (ICD-10) Colon polyp ?K63.5 - Polyp of colon (ICD-10) Hammertoe ?M20.40 - Other hammer toe(s) (acquired), unspecified foot (ICD-10) Atrial fibrillation (10/01/16) ?I48.91 - Unspecified atrial fibrillation (ICD-10) COVID-19 ?U07.1 - COVID-19 (ICD-10) Hallux valgus ?M20.10 - Hallux valgus (acquired), unspecified foot (ICD-10) Pain due to internal orthopedic prosthetic device ?T84.84XA - Pain due to internal orthopedic prosthetic devices, implants and grafts, initial encounter (ICD-10) Pseudoarthrosis Hallux rigidus ?M20.20 - Hallux rigidus, unspecified foot (ICD-10) Status post placement of implantable loop recorder (~2022) ?Z95.818 - Presence of other cardiac implants and grafts (ICD-10) GERD (gastroesophageal reflux disease) ?K21.9 - Gastro-esophageal reflux disease without esophagitis (ICD-10) Surgical History (Updated 10/31/23 @ 14:17 by Dee Cisse NP) H/O removal of cyst ?Z98.890 - Other specified postprocedural states (ICD-10) H/O colonoscopy (~2005) ?Z98.890 - Other specified postprocedural states (ICD-10) S/P tonsillectomy and adenoidectomy ?Z90.89 - Acquired absence of other organs (ICD-10) H/O hand surgery (~2011) ?Z98.890 - Other specified postprocedural states (ICD-10) H/O wrist surgery (08/07/13) ?Z98.890 - Other specified postprocedural states (ICD-10) H/O radiofrequency ablation (RFA) of nerve of lumbar spine (~06/2016) ?Z98.890 - Other specified postprocedural states (ICD-10) H/O colonoscopy (~09/12/16) ?Z98.890 - Other specified postprocedural states (ICD-10) History of total hip replacement (~2016) ?Z96.649 - Presence of unspecified artificial hip joint (ICD-10) H/O umbilical hernia repair (~2017) ?Z98.890 - Other specified postprocedural states (ICD-10) ?Z87.19 - Personal history of other diseases of the digestive system (ICD-10) History of repair of inguinal hernia (~2017) ?Z98.890 - Other specified postprocedural states (ICD-10) ?Z87.19 - Personal history of other diseases of the digestive system (ICD-10) H/O foot surgery (10/30/21) ?Z98.890 - Other specified postprocedural states (ICD-10) H/O foot surgery (09/27/22) ?Z98.890 - Other specified postprocedural states (ICD-10) H/O colonoscopy (04/09/23) ?Z98.890 - Other specified postprocedural states (ICD-10) Family History (Updated 10/31/23 @ 13:51 by Dee Cisse NP) Other Family history of breast cancer Family history of diabetes mellitus Family history of kidney cancer Social History (Updated 10/31/23 @ 14:18 by Dee Cisse NP) Within the past year, how often did you have a drink containing alcohol: 2-4 times a month Smoking status: Never smoker Non-prescribed substance use: denies use 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 Highest level of school completed/degree received: Master's degree Exam Constitutional Vital Signs, click to edit/add: Last Vital Signs Temp 98.4 F 03/08/25 18:09 Pulse 71 03/08/25 18:09 Resp 16 03/08/25 18:09 BP 139/74 03/08/25 18:09 Pulse Ox 96 03/08/25 18:09 O2 Del Method Room Air 03/08/25 18:09 Common normals: no apparent distress, average body habitus, oriented x3, no limitations, healthy appearing, alert and well nourished [facility] Common normals: normocephalic and head/scalp atraumatic Respiratory Common normals: normal respiratory effort, no retractions, no use of accessory muscles and clear to auscultation bilaterally Cardio Common normals: regular rate and regular rhythm Extremity Other: lac volar fat pad left index finger Neuro Common normals: oriented x3, CN's II-XII intact bilaterally, moves all extremities, no focal motor deficits and no sensory deficits noted Psych Appearance: grossly normal Course Vital Signs Vital signs: Vital Signs Temperature 98.4 F 03/08/25 18:09 Pulse Rate 71 03/08/25 18:09 Respiratory Rate 16 03/08/25 18:09 Blood Pressure 139/74 03/08/25 18:09 Pulse Oximetry 96 03/08/25 18:09 Oxygen Delivery Method Room Air 03/08/25 18:09 Temperature 98.4 F 03/08/25 18:09 Pulse Rate 71 03/08/25 18:09 Respiratory Rate 16 03/08/25 18:09 Blood Pressure 139/74 03/08/25 18:09 Pulse Oximetry 96 03/08/25 18:09 Oxygen Delivery Method Room Air 03/08/25 18:09 MDM - Wound/Laceration MDM Narrative Medical decision making narrative: presents with minor lac left index finger. repaired without incident. Discharged to follow up with his PCP Discharge Plan Discharge Chief Complaint: Wound/Laceration Clinical Impression: Finger laceration Patient Disposition: Home, Self-Care Prescriptions / Home Meds: No Action lisinopril 5 mg tablet 5 mg PO DAILY diltiazem HCl 180 mg capsule,ext.rel 24h degradable 240 mg PO Q24H doxepin 50 mg capsule 50 mg PO QPM finasteride 5 mg tablet 5 mg PO DAILY ropinirole 2 mg tablet 2 mg PO QPM tamsulosin 0.4 mg capsule 0.4 mg PO Q24H famotidine 20 mg tablet 20 mg PO DAILY Print Language: [place] Instructions: Finger Laceration (ED) Additional Instructions: have wound rechecked in 2-3 days and stitches removed in 10 Referrals: North Gomes MD [Primary Care Provider] - 1 week Procedures ED Procedure Instructions Procedures Procedures: left index finger 1.8cm superficial lac. No obvious FB 1% lido as local. Cleaned with betadine and closed with #4 5.0 nylon stitche
[2025-03-08] MEDS: LIDOCAINE HCL 1% 100 MG/10 ML MDV INJ (20:09)
== END 2025-03-08 20:24 | disposition home or self-care (01) ==
PROVIDERS: Emergency Provider Internal Medicine; PCP Family Medicine
DX: S61.211A Laceration without foreign body of left index finger without damage to nail, initial encounter (principal); W26.0XXA Contact with knife, initial encounter; Z96.649 Presence of unspecified artificial hip joint
CPT/HCPCS: 12001; 99282

== ENCOUNTER 2025-04-03 08:29 | Outpatient (OUT) | payer MEDICARE, SELFPAY ==
--- OUTSIDE RECORDS SUMMARY | 2025-04-03 08:33 | XMS_ITS | CCD ---
Author Organization [facility] Care Team Providers Care Channel Marketing Program Manager Name Role Phone [place] Primary Care Physician [phone] DO Miguel Astorga Attending Provider [phone] MD [place] Primary Care Provider Miguel Astorga Admitting Unavailable Naderelisa, North Primary Care Unavailable Miguel Astorga Attending Unavailable Sakina Carpenter Attending Unavailable Petmikel, Sakina Hines Admitting Unavailable Naderelisa, North Primary Care Unavailable Miguel Astorga Attending Unavailable Miguel Astorga Admitting Unavailable MD Sakina Carpenter Attending Provider MODESTO ROCHE Attending Unavailable MODESTO ROCHE Admitting Unavailable WEST, DR MARÍA Danielle Consulting Unavailable NADERELisa, DR NORTH Hines Primary Care Unavailable MODESTO ROCHE Consulting Unavailable IRAHETA ., DR HURST Attending Unavailable IRAHETA ., DR HURST Admitting Unavailable NADERER, DR NORTH Hines Primary Care Unavailable IRAHETA ., DR HURST Consulting Unavailable BARBIE CANSECO [...] .MATTHIAS Consulting Unavailable ASMITA CLARK Consulting Unavailable BARBIE CANSECO Attending Unavailable BARBIE [...] Gonzalez Consulting Unavailable KALEY, MODESTO Attending Unavailable AKLEY, MODESTO Admitting Unavailable NADERER, DR NORTH Hines [...] DR MARÍA Danielle Consulting Unavailable HIGHLANDER, BARBIE Cáhvez Consulting Unavailable NADERER, DR NORTH Hines Primary [...] Gonzalez Consulting Unavailable KALEY, MODESTO Consulting Unavailable VERCECILIA HERNANDEZ Attending Unavailable NADERER, NORTH Referring Unavailable NADERER, NORTH Primary Care Unavailable CECILIA ANDERSON Attending Unavailable VERHOCECILIA WILSON Referring Unavailable NADERER, NORTH Primary Care Unavailable Natali IRAHETA Attending Unavailable Natali IRAHETA Attending Unavailable Tavares RUSSELL, North Primary Care Provider [phone] Tavares RUSSELL, North Unavailable North [place] MD Primary Care Provider [phone] ROXANNE AMIN Referring Unavailable BRENNAN, ROXANNE Referring Unavailable SOLEDAD BOWMAN Attending Unavailable BRENNAN, ROXANNE Referring Unavailable BRENNAN, [...] LOYD Referring Unavailable BRENNAN, ROXANNE Referring Unavailable JR. MONTY, ENRRIQUE Sweeney Attending Unavailivett CUMMINS, BUD Andrew Attending Unavailable PETITTI, SAKINA Hines Attending Unavailable NNEKA HERNANDEZ Attending Unavailable PETITTElda, SAKINA Hines Attending Unavailable TAVARES, NORTH Attending Unavailable ARNOL, YENNY Attending Unavailable VERHOFF, CECILIA Referring Unavailable MINNIE, FRANCO Attending Unavailable VERHOFF, CECILIA Referring Unavailable ROWE, YENNY Attending Unavailable VERHOFF, CECILIA Referring Unavailable MINNIE, FRANCO Attending Unavailable VERHOSTEVE, CECILIA Referring Unavailable NAOMI BELTRE Attending Unavailable LONNIEHOSTEVE, CECILIA Referring Unavailable APLINGMARY LOU Attending Unavailable APLING, MARY LOU Peterson Referring Unavailable APLING, MARY LOU Peterson Attending Unavailable [place] Primary Care Unavailable ENRRIQUE WALDROP Attending Unavailable ENRRIQUE WALDROP Admitting Unavailable STEPENRRIQUE ELAINE Attending Unavailable ENRRIQUE WALDROP Admitting Unavailable [place] Primary Care Unavailable Allergies Allergy Classification Reported Allergen(s) Allergy Type Date of Onset Reaction(s) Facility (2 sources) No Known Medication Allergies; Translations: [No Known Medication Allergies] Propensity to adverse reactions (disorder) [facility] Repository Medications Current Medications Medication Drug Class(es) Dates Sig (Normalized) Sig (Original) 8 hr acetaminophen 650 mg extended release oral tablet (17 sources) take 1 tablet by mouth every eight hours as needed acetaminophen (Tylenol 8 Hour) 650 MG ER tablet Take 650 mg by mouth every 8 (eight) hours if needed Active acetaminophen 325 mg / HYDROcodone bitartrate 5 mg oral tablet (1 source) Opioid Agonist Start: 02-28-2025 End: 03-03-2025 take 1 tablet by mouth every six hours for pain HYDROcodone-acetami nophen (Rincon) 5-325 MG tablet Indications: Internal derangement of [...] capsule (20 sources) Vitamin D Start: 11-03-2022 End: 03-24-2025 take 1 capsule by mouth in the morning RA Vitamin D-3 50 MCG (2000 UT) capsule Take 2,000 Units by mouth in the morning. 11/03/2022 03/24/2025 Discontinued chondroitin sulfates 400 mg / glucosamine sulfate 500 mg oral tablet (20 sources) take 1 tablet by mouth in the morning glucosamine-chondro itin 500-400 MG tablet Take 1 tablet by [...] day(s), # 60 tab(s), Refills(s) 0, Pharmacy: [id number], 189, cm, 10/12/24 15:38:00 EST, [...] Date: 10/28/19 Status: Ordered Start: 06-10-2018 End: 03-24-2025 Dilt-XR 180 MG 24 hr capsule 06/03/2024 03/24/2025 Discontinued DilTIAZem (Eqv-Dilacor XR) 180 mg/24 hours oral [...] Start: 04-19-2022 take 1 capsule by mo [facility] once daily [facility] Active 1 CAP [...] Inhibitor Start: take 1 tablet by mouth once daily finasteride (Proscar) 5 MG tablet Take 5 mg by mouth Daily 09/05/2022 Active Start: 06-17-2018 End: 08-26-2022 take [...] 03/01/2025 Active lisinopril 5 mg oral tablet (16 sources) Angiotensin Converting Enzyme Inhibitor Start: 12-15-2024 [...] relations, # 30 tab(s), Refills(s) 2, Pharmacy: [id number], 189, cm, 05/07/22 14:58:00 EDT, Height/Length Dosing, 129, kg, 05/07/22 14:58:00 EDT, Weight Dosing Start Date: 05/07/22 Status: Ordered tadalafil 20 mg oral tablet (2 sources) Phosphodiesterase 5 Inhibitor Start: 06-24-2023 take 1 tablet by mouth once daily Cialis 20 mg Tab 20 mg = 1 tab(s), Oral, Daily, # 39 tab(s), Refills(s) 2, Pharmacy: [id number], 189, cm, 05/07/22 14:58:00 EDT, Height/Length Dosing, 107, kg, 06/24/23 15:49:00 EDT, Weight Dosing Start Date: 06/24/23 Status: Ordered tamsulosin hydrochloride 0.4 mg oral capsule (20 sources) alpha-Adrenergic Neeta Start: 04-06-2022 take 1 capsule by mouth once daily Flomax 0.4 mg Cap 0.4 mg = 1 cap(s), Oral, Daily, # 90 cap(s), Refills(s) 3, Pharmacy: [facility], 189, cm, 08/26/23 11:12:00 EDT, Height/Length Dosing, 107, kg, 06/24/23 15:49:00 EDT, Weight Dosing Start Date: 03/23/24 Status: Ordered take 1 capsule by [facility] every twenty-four hours in the morning tamsulosin [...] Claustrophobia; Translations: [Claustrophobia] Onset: 02-04-2024 02-04-2024 Chronic Cardiac dysrhythmias (20 sources) Atrial fibrillation; Translations: [Paroxysmal atrial fibrillation] Onset: 07-10-2017 Resolved: 12-24-2024 10-28-2019 Chronic Diabetes mellitus without complication (20 sources) Prediabetes; Translations: [Prediabetes] Onset: 03-06-2023 Episodic Disorders of lipid metabolism (20 sources) Hyperlipidemia, [...] left knee, initial encounter] Onset: 02-28-2025 Episodic Neoplasms of unspecified nature or uncertain behavior (4 sources) Neoplastic disease; Translations: [Neoplasm of unspecified behavior of bone, soft tissue, and skin] 08-13-2024 Episodic Osteoarthritis (20 sources) Unspecified osteoarthritis, unspecified site; Translations: [Osteoarthritis of right hip joint] Onset: 04-04-2017 Resolved: 07-11-2017 02-04-2024 Chronic Other aftercare (1 source) Other alf (current) drug therapy; Translations: [OTH SKILLED NURSING CURRENT DRUG THERAPY] Onset: 03-11-2023 Episodic Other aftercare (20 sources) Long-term current use of drug therapy; Translations: [Other exterminator (current) drug therapy] Onset: 03-17-2024 03-17-2024 Episodic Other connective tissue disease (1 source) [...] sources) Pain in testicle 10-30-2019 Episodic Other non-epithelial cancer of skin (4 sources) History of malignant basal cell neoplasm of skin; Translations: [Personal history of other malignant neoplasm of skin] 08-13-2024 Episodic Other non-traumatic joint disorders (13 sources) [...] Translations: [Obesity, unspecified] Onset: 03-17-2024 03-17-2024 Chronic Other screening for suspected conditions (not mental disorders or infectious disease) (20 sources) Patient encounter status; Translations: [Encounter for screening for malignant neoplasm of prostate] Onset: 03-17-2024 03-17-2024 Episodic Other skin disorders (4 sources) Seborrheic keratosis; Translations: [Other seborrheic keratosis] 08-13-2024 Episodic Other skin disorders (4 sources) Lentiginosis; Translations: [Other melanin hyperpigmentation] 08-13-2024 Episodic Other skin disorders (4 sources) Actinic keratosis; Translations: [Actinic keratosis] 08-13-2024 Episodic Residual codes; unclassified (1 source) Obstructive sleep [...] (3 sources) H/O: anticoagulant therapy 10-30-2019 Episodic Residual codes; unclassified (2 sources) History of arthroscopy of knee joint; Translations: [Other specified postprocedural states] 2025 Episodic Spondylosis; intervertebral disc disorders; other back [...] Problem Date Documented Date Episodic/Chronic Cardiac dysrhythmias (2 sources) Palpitations; Translations: [Palpitations] Onset: 05-13-2024 Episodic Complications of surgical procedures or medical care (4 sources) Pseudarthrosis after fusion or arthrodesis; Translations: [PSEUDARTHROSIS AFTER FUS/ARTHRODSIS] Onset: 12-20-2022 Episodic Conditions associated with dizziness or vertigo (20 sources) Dizziness and giddiness; Translations: [Postural dizziness] Onset: 03-12-2023 Resolved: 12-24-2024 Episodic E Codes: Cut/pierceb (1 source) Contact with workbench tool, initial encounter; Translations: [CONTACT W/WORKBENCH TOOL INIT ENC] Onset: 12-10-2022 Episodic Immunizations and screening for infectious disease (1 source) Encounter for immunization; Translations: [ENCOUNTER FOR IMMUNIZATION] Onset: 12-10-2022 Episodic Mood disorders (2 sources) Mood disorders Onset: 03-29-2025 03-29-2025 Open wounds of extremities (4 sources) Laceration without foreign body of left thumb without damage to nail, initial encounter; Translations: [LAC NO FB LT THUMB NO DMG NAIL INIT] Onset: 12-06-2022 Episodic Other aftercare (1 source) penitentiary (current) use of aspirin; Translations: [SKILLED NURSING CURRENT USE OF ASPIRIN] Onset: 12-10-2022 Episodic [...] hip, left hip] Onset: 07-30-2023 07-30-2023 Episodic Residual codes; unclassified (20 sources) Insomnia; [...] Test Name Value Interpretation Reference Range Facility Coding Summaryon 03-30-2025 Coding Summary HTMLBase 64 IxjhrfwgGXq9vSf+PGhlYW Q+IT6TEEKaY16nfOCkeO7m G9CYVLuYXgpoGISTVXmNIt ZmviCoGM6ykBPyQQHd IC8+BJ0pSNOwTdstbEEnd8 C6wOI8B89zjb2wXIhsiUN0 MZFvOrHndoiky7ndeDa1KY cuNmluOyBt MDWiwB24EOX6hP90Fh00aQ BryKGrv9weoWq5DgDnBJUu NAV8nYrbTFkca2FrSCGlM6 4osJJnk2E0 FONcvIusbDDaBnWskXQ2kY 1dKVsycbbsa8zieazaCgs3 he73vCMxx9L7eBJ8L1Dopd L4ZAVizVAz NddqiCWRrI0tmdjgr5fpax yuGaDqANAoIIu2YUo3FQJa oRulNdQaNN97WWZ0JWJvhu LyZ4IpLZTv pSwbCdS6i4I1Vk1CK7OUTz cmR9DZVXXVRZuezNP+PC90 ps76R8UxQjlvWcz5KFKgOD P0vZK3gV1y ZCGxFQeat1E1sJP7O4Tiib Ejip2nm3zhJLRdRYyrS69q uMBdc7K5APOnsCV6MRXauF ptSnIehS36 Oyc+XLXzhDcaf9YuTjptl0 aym9opdAa3TofwJILzciMn aStfQWX7j7EaBu6dCYVcaY Q6kKO7pH3n OrEzPyT9LJawY680VjUvnG ToUlojA72oL6HsrUU+PHRy Cza1MVJvaKzkUP8qI5JgJL RpbmctbGVm hCwfIC0nVXOhprezOLQaiA 4uTIUbY2g8VvNwZsK3WMxx X0PyNQEjbaeyCg08nX8tGq ZbKkZ2VCjp Q9FalwN5HDBhzOJoNXpaGN H0U56vu1D5NSHbFJQcIVX0 fKZ6iE5yjWswrywxcZBteP sgdmVydGlj PYdfBVobZ135KDYdzXewFz NvZGluZyBEYXRlOiAgMDUv MDYvMjAyNTwvdGQ+PHRkIH H7cPugTHOx yRQfMVmpFf0akPqglChgRA 9uAOVwcznvMLOrpO2gUOPf dDRdaZhgIE2aIZWbsbcju2 82FtNlEPI7 ALRoqYSyG0UtoE2cUsBdML RaJYFeR5OnxZCmDHzjD660 ALfyYeT0UHMkzyPqH9NjDU FsaWduOiB0 q1B0Ry5Sr1NsklhgV2FcwR PnTlIlShnrHMy1B0ZtPnny dHI+HR23IUIgCT84TLd6XK M3mDtkOAko GHRmH3KyiI5hRvUsXFLpEV RkOyc+PHRhYmxlIHdpZHRo QEohFOJhCwPagZedDV9mUy 9yZGVyLWNv qVhhzQIwIfKqd4jbWGRwGA xiXY3aySkqR7PnwUK8LLDj s1u0Ez19T49bW5LzdED+PG VpvNA7wWB0 mU8lInDfQsN6LLoqC808Rc RbiPFaRawiq1ykt4etfVp6 NnX7TDBykkDtnJkoPZJ0b3 OjTu93F28r IHdpZHRoPSIxNSUiIHZhbG yuoi5gtJ6eDt2+PGNvbCB3 xPE0gW9oUrUaSmI3KDrhQ8 49InRvcCIv Rngil7fwn2velAl9JhPsCO YebnFopLqkSBN1h6FmWp18 A9WxxMuyq2ZaAhe7uf94iM Wnr9L6mPY7 H2RuALTpyfamcOBdtRwaQJ 3iSXLhiwxgDSHzgP3jAKIj Y4j2JeTcUjZ0GGtyN0Pcoj Y3NJEtvZLz NQThpZVLgV1ircbsr0cvzx feWdLeVPNvOSn9BEj3YVNm pMpoTlNrOKA6EjN2TII8hR YlpG9xaLzc jlxplK7uUlx+RII2yEFuuN ZUOP5nShjzqWY+PHRkIHN0 jEsoXIucYCXdeE3dQGXxE6 k6FwAyJpQ6 SAkkB4HccqM1HJHcySNzKP WbnZQIbB9seplhs1flqsgp YuObFYOjRUw6HZd3FNHuiH duOiBsZWZ0 MeZ2RPO4pHIpyP8voDrifi xikO4mMje+QmlydGggRGF0 JGf8L3TuNsc8XMFnrTwaLD 0ncGFkZGlu Zf4suLyntWwpLD8wPLUogh fnq669IyYpm1nnDHEdqBYh GXtuEIX5R57rq8Q6IBUmKD CwKJD3jZG5 dO8tuDhickbswIPnlBsgoz HtmLhcWNecYXuqL196WYBp dJlnQrXkALi6M0PwHdf2KA TmtAtmER5x lAHcEYqsGx0kcXiemSxmLT 2iAKGikbgue083NaSfu4mz EILkvZJlLNakOUS2R12ht7 G4VPIjGOLy CFL3fBB0dC3xyKamaboppS VmdDsgdmVydGljYWwtYWxp C197NLTeqXebCaAccVq5V6 WuFpd0NXNp hFdvQB1spUChRDdwPd9yyW fhxHkqZY4kZTMsqcxuq614 FwFns4ejKALztQUmNAkhHT C0Y02fs9R2 VBBtTEKtORH5jNM5tA0ohK lnbjogbGVmdDsgdmVydGlj SPmxZThwA668KDAgwPfaRf BhdGllbnQg FExdSSm8O2CxTihawXH+PC 49DZXmJS01kDGguRVxr4so lEk9XsNpKTDcMQR4hWakKP wtc1JuHDXo G16qrEIej9U3HTVjdZaupX NcOeAogCM8xU1cWVwmmsct n7navquwNcumu2jcru42oM 50N26jVFvd ZHRoPSIzMCUiIHZhbGlnbj 4hmM9bFb3+PXThxEI1kXX7 jQ6zBPLnOkP2CPzuP790Pw RvcCIvPjxj q0dqc8iejKm3DgM2IEAoxm LqkEpjPSE3y3ZaCb94L57e IHdpZHRoPSIyMCUiIHZhbG gasf5mmX3z Ii8+HOZxiMQ5nXW2sB2lWa PfTqG3MQgdC335JjZilXPi UzdxY92zL6AieTI+PHRyPj m2VWRheLzz CI5tnAQmIWwdEc5qKVB8Ds XeAeHvGFqzU6OvQJZaptdr jowkeKT8QZGpJLWwsT05Mg 9udDogMTBw bWDYwU0wqidvi8mhfgmiYf IbLLVqMMr7OEt2SVLdvDye XlNcIQT3RbZ3ONA3qWZblU 1hbGlnbjog mE1vP7BjSLNrnygcFe41vI 5aVyDlZvR1VEmoUta+TUNN FYSWKDXgBPTFCF7ITIBEBS xFTjwvdGQ+ VRAfYFB4mKjiXSktPNQejA 9sAQGiQ5k0LiJsXjH1EDqt G9UfTETlslvaRj68iA0nZh ObJnS7OQdg A0ApwaD5YCQmbLVgWKbgOK X5C99aj0L2SRIqXMDeKNQ7 sRW9zI3aeVymrjiyiYAibE sgdmVydGlj UFnyDSgjA906FPUztIhlMe M6XhAdRpT0JXA2U2FlOyk9 EIXmjWedFQ4jbXXpAVgmSd 1yaWdodDog CF9zBSFhulmlJPWviU0hYK MtjRZhfYilQO3nIGLowhrp q088QgMkQFE4RRVpgSJbU0 EviA5sOuPe KLNoQEKpG0YguAFlMUsyU9 97PXzxEsP0ZDTvghEtX7Te FCZznUqbLuF7h2H1Kz78Am BZZWFyczwv dGQ+OOEkHQE5nOejBEkeFR KgcW0mOXRfL3s5XjCkHlN5 DNcjI3BoPRQdcuozXn95lN 7bEkIqVeM3 UNlcE2GhyiR3NMAaaIBvHP hpNHF0K20at1G4TNXgWZKw YJB8yRP6yG7gnYcamsmvfT VmdDsgdmVy uAiiBGnpGVeaM167FPKiwF ujSt9PIIN4Z9XzNop0FAPw gBkoPV0wbBLsSRgmIx2drA mynWbmXE1d IVZxeifzCQCkyM2tIZZpuF YktZbeTA2nUDFxoqhme529 JbIwMJN6IPOdsJZsZ3YedV 9yOiAjMDAw SUXwM0TupBVzKAnyO621QC ctUuN9KKVxpvInX9OaAUYa aGseWzE6f7B4Qi6CGQfxL8 ArT2TzhHec dGQ+AH46ko72I8KiXovoTv u0TKKiBTP0sPM6kN9dNDYh FOswg9X5eZU2I6HahhDpmj 7as7gqKYWb NImnK77npTKqs0D3GQJhwA K0XFQajMkwScUsxC07Iou+ KAWlmPgxw3GaPlslm8fab4 eykEq5QqLj DVFspsDrkAxqIWX3c6HrRp 91Q70mYVdxFMQmQFRaISXs THAypKqkfz0szN3uOk8+PG WsaAT2oEG7 vT1pWhOeAnM2OGzxZ693Ng ZqkBVkItbmq3nlc2qofEe9 LtNfBHOhwjMdbTpnCVU7h3 LhTq61E6Ao gLvok3JrKwo0uu18sQOao7 B2rQU6S0AySMHsxuzepNSd vTwhYH0iRUFuwnavNZDryG 1qDFCfB8q2 CyHgTmF5HBrmE5FpcdA9NE QyrJYpVQOgaYLLeA5ffjlh r4buckauDoInGWStRNp7JC h5EEKwhXzk IuOtGKK4GqY9RPR8xMZltK 2zfLceglkpxN1xCzk+UGh5 n3kkjCMsYP2jqGZ0YP80KD 41lDSgf5N1 uVL3S3CqGMOmbbkhpyzgbP E6DYBeJBRogB93Vg8fnPve Ov8bCSQbDWR2QPEkxLTlB8 XxaI8xIlMu LDNlEUGbP4KxsIZiTMshG5 11TEtrGsT3HPAqoqZiC5Gs OKJfgQasJeJ6s6K7Xv9JUF 97QO62QX43 aIVmw2U5sUZ1G8LjXGQorv olzlhksKY2WIVtAOGtaI72 Cq2lrPayWc5uRYFxGIH0JC VpuPMkG9Ha zQ5rHnXjTWSgRWLyH9YbcF FnWHgtE322NCtxIaO8XGTg juGzW9VcVIMfoIfdHfQ7t2 U3Ut2TJv73 HY72NP91gFZhn4Q4hRT3R3 GbOSFvdeavwrsrpKT5ZZLl FTLzxG89Zv6ydQzrIw6ePS LmBVZ0NDOq sMXoS8PjbD8kXtWgONVxQW HkL6KknOQxTYbdI644MRfy SjX4SYSpqtQxH2JuDXIbrT jdTsO3a4M3 So9UCEulmst0X1FrPdovuA I+VR05ZJSrPQ22cICkjSWu p7gnhEw8PfFhYYSpNCI6aG ddYAqax9Ax ZXI (more content not included)... [facility] No Panel Informationon 03-24 Type of biopsy: tangential Informed consent: discussed [...] details: Photo taken Amount of lidocaine used: 1.5 cc [facility] [employer] Type of biopsy: tangential Informed consent: discussed [...] details: Photo taken Amount of lidocaine used: 1 cc [facility] [employer] Type of biopsy: tangential Informed consent: discussed [...] details: Photo taken Amount of lidocaine used: 3 cc [facility] Coding Summaryon 03-17-2025 Coding Summary HTMLBase 64 PbmgjimlEJl0iAw+PGhlYW Q+ZF1YTIJkW26wcPDelY0b O1UWGIaIQqgcFTJFLThOBt EqsrDtNA0jtQHuSTAs IC8+OF7rFRAtUmwktJWjy1 R8aRY1V43nsr9yJOvfuUH9 XCZuRiPtcnpxb6kbsQv7PV cuNmluOyBt DMLvqS83UFX4iD44Jo88bG GkyIAzd9uqcHm1TpVtIYGm YVI9eKqtUOrzv5VyQESfO4 2awTIvb5W6 TVUqmJhlmPZbHgOezVX8nT 7uKKttianuu8kueoadWsj9 gw32uWGjo6P5oRN7M5Zvay J7IINssDUk RoemgLLRpO3qhbwly3bmuc lgTzQjJENaEVp7FJo7ODVg kOimBnVwAS04EMA5QUNdns SdC5YzWVVd iGvpQrC2e0W3Lh3HO3VJTk grL1IFFDPQPOxgrNW+PC90 eo23P1DnOxdpIao4MAPtCZ K3lCG1aE5f BEPmDEfzi8R3tNG9V7Vhpq Bhcz4zu2cwDGGdASguZ09o cKZhv9F6IKXfoFE9NCTxaC hqKlYspN37 Oyc+RIAjvLnsk3QiSjwrv8 nov3zaeNq1FyyjHWEzscYq vCpgDDM5p3LcNw6aMSOqvT E5wNJ9jE1r DoJsLqV0BMnuP254ClNsbP BsRokzJ65nE6MjdWM+PHRy Sun1BPIviMcmOK5dE4NzAE RpbmctbGVm oVpbTE8hEFCnrhfxRLXaiX 3nEYOuH1m8WhIvGvW5WWne X9ClASJsssvsVn01aP7lFv CuPwQ2AEye L7RpfoI4SOOagHHhAYivLM C7R46oh6L7PLIoXWBsBNT2 fXA6sG4wjXztjldnyXDdrM sgdmVydGlj DEmdOSnvE526MLBqcTawSq NvZGluZyBEYXRlOiAgMDQv MjMvMjAyNTwvdGQ+PHRkIH R6iAcwLHRz lJXzDPgjKs3atFpcqZloWV 0vKRZxxyxuSPOphB6sYKXh hXKtaSssHP9bDTIoyozks2 11TwOcEVK6 PJAcsUUkH4UdfX8aCjEdTO OxAVToN4ScuAQmTXdfH535 NCybSdF6BUKcuuEtW1SeCN FsaWduOiB0 i9B5Sp1Da9OlhacqY1UwsP OpMvOaMkbzOSj6O1LpCpro dHI+KI40TYAdLJ20BSy8DB O1xZhrSUfk SFQpO7ZxeL6lXfMiOJUnYM RkOyc+PHRhYmxlIHdpZHRo QZclHZXfBxNpxGrgDU0bGt 9yZGVyLWNv tVcfkSIjFyVdx6dqCSPpSL olIO5ckWpxG8RxfDM1PNAq y0e3Vf90Q41aG2BbwUE+PG XydUL7cLK4 tF5cVdZoQhH3UPhcG837Rf QspWNpTfofk9and9fouNb3 YoC6ZQEnoxFzmFypLDT0s5 HuVd70L53s IHdpZHRoPSIxNSUiIHZhbG hbqp7iwQ9uNc9+PGNvbCB3 zZA3jC4lGiEkWcZ7KVlwP6 49InRvcCIv Zqgxr9vde0zwzJs5SgRyPR JnmaLxaMdkEOH0s1BaHj42 S9TkbTuen7FwTyo2qh67xU Umo4T0xFP2 Y5EbKBTbavfuqQJdvHrjBC 5mXDXbhvyeUWTbnX9wTGLf T3v9ThLmQfO4ZSikT7Lqgd H2RWHfsYAd NEKdjWOPsC3atotbz3gcwb rdAkGaUUJxIIa8AFi5XVNc wLviXsAbNOC1OmF3GNN1uP PijL1roBwm mqywlI6wLtm+AOH2tNAvfB WXYB9sAbhquKB+PHRkIHN0 sEdcNSpbWJPihA8kYECcL8 k3PwExUyJ4 LMknE8UhppX8NNRsnNQlQA AdcWZVsT9anmdiz5fclwzy JwMiRMZmQQy9MUe5IVBnlK duOiBsZWZ0 KmW1SRA1rGDrrH8agBohqp hfzJ3jNwv+QmlydGggRGF0 TJv8R6LlFsg0TTQsrOnoYU 0ncGFkZGlu Pn5ttHlbaSudZL9oROYzoe suk921VpFvd3mqPHUkdTKm OSitSHY1F48xw0O5AFHhCX QwGFJ8wFH1 tX7ryFfsyibrqGXvvOzbue EydDikMGbvJDwbY497TLJx lYgaPdItCSh4N6KkVqb7TV JmuAbzUA0s aWXzDXikSo2tnFwxoUcpWL 5kPXHnjkylc494HfKxv3ve YOIziOTcZEviTLL7D82qt2 O2JSPmKANo TLP4kBH4rU4ezFcjrsdshO VmdDsgdmVydGljYWwtYWxp D232XTXzdEieJbMczOe3L8 SuKpr8MDSx nZxoNG2ixNMgTMtlGw0inI abvEmgOV7tBQEtqglfx549 TgDhd4kbQVFuzLImPLutWZ Q4G38so5I4 FTCfNLBzPWC1lJV0fX1drB lnbjogbGVmdDsgdmVydGlj XVryPOkxL774QBFoiOctUx BhdGllbnQg SZdyMIo3E1BeOhbkhGK+PC 07ONNiLN63nPFjtWUyy9kw uLc9PkBgYHSyEDL5jTmkHR tnc6AnXMSc Q96roFTke5F6JLLxbFzjnL VvNdLhqZZ3iW0pHQyammjw x3wivrhqKugrh9hhwy28oW 29V14zBCzj ZHRoPSIzMCUiIHZhbGlnbj 6hqE5yAv9+LZVgmED0qRU4 kY9tPMNaCuB6TMmuM950De RvcCIvPjxj e9ogd0tkaAh1WaO5FVNbtp FtjMsoZIJ5o7GtSl31I31o IHdpZHRoPSIyMCUiIHZhbG kktk3apP6b Ii8+NMYgmMS8lKQ7hN7cWr ItQgR1PBurX499ZrOaxGQc SjrtC46qU7BheDE+PHRyPj w7ICWxkWuz BA4snNSnGRshAd7pCVU1Mt MjZuKdFIvhS0MxLMSwrigr dlawkCM7HLWsXKHeaA97Mx 9udDogMTBw yEQFsT1uqfhiw4qjpvpjBf KuBAPeBXl1CHv6KATgbPmc KsJgUSY9NhY9FVK6oLWymL 1hbGlnbjog vV7gQ7GzDLOwxjeeRi54uW 3tSsMhSxO6APxhYpe+TUNN KKOXQYNnMGVDSX9YDZFOOD xFTjwvdGQ+ UJCmRZS3xMtlHUnrINPxtO 8uYTJcA2e7EyKtZtX1KBjg P3LmKNDakruiSw15oN5hRa AzPtB7PPoh O2JhvuK8FJYmqBAzBRdgEO Z4M90ug8S7EUFsWLHpGYA1 fMY5lL5heCavxxhcwCDqbU sgdmVydGlj HIkrGOaqO427HRMqmNniRq Q6SlSdUbN4SIU2G0HvAte7 XKXvpBsaFS4exMSlTQqeHq 1yaWdodDog ZZ9dIFEbrrheUTPdpF4oDI VkjOBihFaeCS6uTIDupbgz j628PaOpDSG7YVYpiSKxC4 CwhG6yPyWs RQHvDJXzR8ZpvRRcSNvuV3 16ZAsdLjB2EHNtdjAdC9Bn SQIxgHsrMmU9s4O6Jc01Gn BZZWFyczwv dGQ+KRTcFPH6pXxyXOgzCD AfbB2dFQMiE4a1LpExGeD4 ZMqxG8AnXFUqskscMp97gD 9wQqJaXjF1 HCwyZ2FeryZ0MXLchIYwKO etWDH7U27wk8W2OEFcRJNj KTT8zXP5lC5phXveovzijZ VmdDsgdmVy kXrcHYppYRagE761OZIieE hjDu9ESVR6W6SdMuv5JQTs oDwjPB6jaOOzTDwwXy3twQ olkGzrVF6g OQRigxhlXBJcjA4xQXSawT YydDsmPT2fEQTbialvp699 OoTxHND5OLYcwWDvE5SofZ 9yOiAjMDAw IDWyI2VfsJObYIpgF166KD whZgT6XMTzwhGtQ0LtALQa rMgnNjH5y8P8Qb9EGVprJ5 QwR1WhxXve dGQ+KC15zi57T9KdXnsoYh p6JBJdPQU2kQQ7xU8lEPDe CKntw8Z3pBJ5X5HydsJhuq 6rv7scMATa XGziC02lmBXgc6M9OBSbyG Q9MSPkiTbeOpHwbQ51Yjz+ GFKidSjju4BtXzhmu2qbe5 igbYd0WtZd BVHmguJurSpwBZF7a3YlPl 64W52vXSleWTYrVWSxGZYb VXDpxOdmgd5vbV7rTd9+PG LtcAP0kKE9 lC4tPtZbSnB3SLauJ143Wl LhzIDgYtthi7evx3sgxVk4 XoIjHTKpgrWbiXaiYAK3p3 BvGd05L2Xf uGmdo4IrSyw6na55iKEnc5 E4nKT5U6EjHRBiidxjbMBb sDslSB2tIKVesjufUXZehO 7jQNRxG4g0 RwPsEfU1HJudK1RkdeA6YU DpcFUlQLFasWQWhP9otocw q6thwiqcWqSfMBFwYZd5FY g6LGKiqOvn WhZeVUT7DcC2USO9bWFakW 6kvSoucuqzkW7kXjk+UGh5 l0xikARkFK8cwNN9UG39OI 72pVCjs6D0 xXL3O4LzVVUafbzvfalzsQ N1NUVmZKZioD04Dn4dbLju Fy1pLQQaYXY5RCPdmKMsH5 EicD1jWnAc SCNfRTRkY4YxsLGbTPcfJ3 87JUukXcX5XMBobhKvP7Zn OFFoaCigZvN4j3J0Oc2IUW 80NZ81YU09 bMNhg5E5nSE1N5JbZVMztv zkdjlnrXT4TJDwQPHrpX17 Hg6mqMzfDp1dCKVyUYK5YV RhgKJjS8Up bC7pTwPfOGQyXRVqK0DiwT VqWIevV934VMhkVbO0MCOt kkJxX4VfVRZaaUdeQcZ5z8 H3Ek1JVu88 XG85MK46zWJsx7E0cKK3N3 OgJDOzmqiifeunkNM7ZWDt GQYafH99Xv6swFshLi5dSE CnITW2YJZr hKFuB9PvjU9fShBySFVbWL XgG4KruZAiGVhgA515GBfm AjI0LJVurvCjA6EmFBAekH heFhY0t2L3 Lv3NMOqwzfa2U9OeHetoaI I+EZ38MHBgQQ25yCLfrRAj y0kaaEv0UhNbQLFpSJH6jI wbITfto1Qr ZXI (more content not included)... [facility] Consent Formson 03-02-2025 Consent Forms [id number]#1.00 [facility] Outside Recordson 03-02-2025 Outside Records [id number]#1.00 [facility] Telemetry Stripson Telemetry Strips [id number]#[address].00 [facility] Anesthesia Noteon 03-01-2025 Anesthesia Note Patient: [...] on: 03/01/2025 12:38 EDT] Leroy Zuñiga DO [facility] Anesthesia Note Patient: OSCAR ESCOTO Age: 74 [...] = 50 mL, 100 mL/hr, IV Piggyback, Religious Education Director Documented Medications Documented Cartia XT 240 mg/24 [...] list: All Problems Arrhythmia / SNOMED CT 9966084511 / Confirmed Hypertension / SNOMED CT 0024327620 / Confirmed Restless leg syndrome / SNOMED CT 81929877 / Confirmed Sleep apnea / SNOMED CT 531297574 / Confirmed, Active Problems (4) Arrhythmia Hypertension Restless leg syndrome Sleep apnea Histories Family History: Breast cancer Mother Bladder cancer Father Procedure history: Total hip replacement (159990884). Tonsillectomy and adenoidectomy (121015560). Hernia (1059048562). Comments: 02/02/2025 13:25 EDT - Cass Bledsoe RN inguinal and umbilical Toe ([id number]). Comments: 02/02/2025 13:26 EDT - NavidrCass RN big toes bilaterally fused Social History [...] % Auto Lymph % 22 % Auto Bleckley % 7 % Auto Eos % 2.9 % Auto Baso % 0.7 % Neut Abs# 4.6 x103/mcL Lymph Abs# 1.5 x103/mcL Bleckley Abs# 0.5 x103/mcL Eos Abs# 0.2 x103/mcL [...] NA . Radiology results: ECHO, 2020 wnl. Shipping And Receiving: stress ekg 2015 wnl. ECG interpretation: Normal sinus rhythm. Plan [employer] [place] [employer] (ASA) physical status classification: [...] 03/01/2025 11:0 (more content not included)... Normal [facility] Inpatient Patient Summaryon 03-01-2025 [place] [address] Patient Discharge Instructions Name: OSCAR ESCOTO : 1950 Patient Address: [address] [place] [address] Primary Care Provider: Name: NORTH CHAPIN After you are discharged if you find you have any questions, please, call [phone] ext [phone] to speak to a nurse. Discharge Diagnosis: [...] alcohol and/or drug addiction problems; contact the [facility] 17/06 Crisis Hotline -Text 4HOWB di 104695. If you received any narcotics, sedation, or [...] business decisions or sign any legal documents [facility] would like to thank you for allowing us to assist you with your healthcare needs. The following includes patient education materials and information regarding your injury/illness. OSCAR ESCOTO has been given the following list of follow-up instructions, prescriptions, and patient education materials: Follow-up Instructions With: Address: When: Nneka Hernandez [address] [place] [phone] [place] [facility] 2025 10:00 AM Medications During the [...] of you (more content not included)... Normal [facility] MAGR Intraoperative Recordon 03-01-2025 MAGR Intraoperative Record MAGR Intra-Op Record Summary Primary Physician: ENRRIQUE WALDROP DO Finalized Date/Time: 03/01/25 12:04:17 Pt. Name: OSCAR ESCOTO/Sex: 1950 MALE Med Rec #: [id number] Physician: ENRRIQUE WALDROP DO Financial #: [id number] Pt. Type: D Room/Bed: / Admit/Disch: 03/01/25 08:45:44 - Institution: Case Times MAGR Entry 1 Patient In Room Time 03/01/25 11:05:00 Out Room Time 03/01/25 11:57:00 Anesthesia Start Time 03/01/25 11:05:00 Stop Time 03/01/25 12:00:00 Surgery Start Time 03/01/25 11:31:00 Stop Time 03/01/25 11:49:00 Last Modified By: Rupinder Mxawell RN 03/01/25 12:03:54 Case Attendance MAGR Entry 1 Entry 2 Entry 3 Case Attendee ENRRIQUE WALDROP Christopher J DO Gump RN, Rupinder Role Performed Surgeon - Primary Anesthesiologist of Casting Machine Service Operator Record Time In 03/01/25 11:05:00 03/01/25 11:05:00 03/01/25 11:05:00 Time Out 03/01/25 11:57:00 03/01/25 11:57:00 03/01/25 11:57:00 Procedure Arthroscopy Knee(Left) Arthroscopy Knee(Left) Arthroscopy Knee(Left) Last Modified By: Alissa LEOS, Rupinder Maxwell RN, uRpinder Mohan RN 03/01/25 12:03:50 03/01/25 12:03:50 03/01/25 12:03:50 Entry 4 Entry 5 Case Attendee Felicitas Ramos RETAIL SEASONAL SPECIALIST Berny RETAIL SEASONAL SPECIALIST, Sarah GALLAGHER CSFA Role Performed Bull Gang Worker Bull Gang Worker Time In 03/01/25 11:05:00 03/01/25 11:05:00 Time Out 03/01/25 11:57:00 03/01/25 11:57:00 Procedure Arthroscopy Knee(Left) Arthroscopy Knee(Left) Last Modified By: Rupinder Maxwell RN, RN, Leandra 03/01/25 12:03:50 03/01/25 12:03:50 General Comments: MELISSA-ARTHREX [...] Zuñiga Time Out Time 03/01/25 11:30:00 Participants , Alissa LEOS, Richard Bucio Regina CSFA RETAIL SEASONAL SPECIALIST, ENRRIQUE WALDROP DO, Berny RETAIL SEASONAL SPECIALIST, Sarah GALLAGHER CSFA Last Modified By: Rupinder Maxwell RN [...] to positi (more content not included)... [facility] Record Summary Primary Physician: ENRRIQUE WALDROP DO Finalized Date/Time: 03/01/25 12:31:44 Pt. Name: OSCAR ESCOTO/Sex: 1950 MALE Med Rec #: [id number] Physician: ENRRIQUE WALDROP DO Financial #: [id number] Pt. Type: D Room/Bed: / Admit/Disch: 03/01/25 08:45:44 - Institution: PACU Case Times MAGR Entry 1 In PACU I 03/01/25 12:00:00 Discharge from PACU 03/01/25 12:28:00 I Last Modified By: Hannah Abraham RN 03/01/25 12:31:42 Finalized By: Hannah Abraham RN Document Signatures Signed By: Hannah Abraham RN 03/01/25 12:31 [facility] MAGR Postoperative Recordon 03-01-2025 MAGR Postoperative Record MAGR Phase II Record Summary Primary Physician: ENRRIQUE WALDROP DO Finalized Date/Time: 03/01/25 13:26:19 Pt. Name: OSCAR ESCOTO/Sex: 1950 MALE Med Rec #: [id number] Physician: NERRIQUE WALDROP DO Financial #: [id number] Pt. Type: D Room/Bed: / Admit/Disch: 03/01/25 [...] Signed By: Camden Jones RN 03/01/25 13:26 [facility] MAGR Preoperative Recordon 0 03-01-2025 MAGR Preoperative Record MAGR Pre-Op Record Summary Primary Physician: ENRRIQUE WALDROP DO Finalized Date/Time: 03/01/25 13:12:56 Pt. Name: OSCAR ESCOTO/Sex: 1950 MALE Med Rec #: [id number] Physician: ENRRIQUE WALDROP DO Financial #: [id number] Pt. Type: D Room/Bed: / Admit/Disch: 03/01/25 [...] By: Camden Jones RN 03/01/25 13:12 Normal [facility] Patient Handouton 03-01-2025 Patient Handout Arthroscopic [...] with you for the rest of today. [facility] Progress Note - Nurseon Progress Note - Nurse Spoke with pt and informed him to be at hospital at 0845 and NPO after MN, he verbalizes understanding. [Electronically Signed on: 02/26/2025 09:54 EDT] Miranda Head RN [Verified on: 02/26/2025 09:54 EDT] Miranda Head RN [facility] Coding Summaryon 03-18-2025 Coding Summary HTMLBase 64 AsazdyauXCg8tXy+PGhlYW Q+UK6MBFWoU48njTRbiP1t I3NPYQiQWvdsIVSVOQfWSj UkosGfHY0kvJOrYQCm IC8+EQ1gBREyVewynSOof6 J8iUY5D45dmc2oIFjqrEB5 MZToPsFabfetv1uljYi4CI cuNmluOyBt IYFlmH05SXE0zO08Sp46yK AhyBZvg8nwtKz3MqUjBLYt HVB0qNyfHZljx9EsEEKuZ0 9hhZCec0Q1 DBDyjNcwmXOuWqRlwWO3uQ 8rRZkufkthi1cjrmyaCkt6 yj77wELjr1V9xTY8M3Eklu J6SKHxxVQa DhuhhZEXmV1yozzfk8akap siWmVySQEdYIh7BIc9LWIg qBrsEoLjNG73NZR9BIHzls LeF0PwJYUl aBrhBpP8d2U3Nl2WN1RASi pbP8FCEEMKTGzdqMX+PC90 hy23A0FgXywvUlm9DHRwWT O4cZB9lR9q YNQuJAgtf4M2lSY8M9Lmji Atyn4ee3kaRPYwMAwvB00a yGQps7R7SCMvmBQ4ADOwbE piQwSguO76 Oyc+ZIJdfQhgx9DvJxxlb5 xuq7oezUm5PrdoURToktWc aDyzJMT5a8GmAk8vRMQxvY C2gSY3pA6b JpXjHzJ7HYmwZ235CcVtpE XwGiwvA94rF6WhrST+PHRy Gbc3KERmsUtmCT3dC7PoFJ RpbmctbGVm gFdnTS1dQBMmegikHQQedC 1iKNNxW2j9WsHzYcR8ZXod G3PrKPDgdubaHp30qU3bKj YkEzE3YNva Z4GdnvL4MHYgfZGgPKlzZL Y9Q43kd5I7CSRqOWWwFMV9 kSL8jK0xuZrkrnhgcXVddZ sgdmVydGlj MOgyVDvrT492FBJebJrrCb NvZGluZyBEYXRlOiAgMDMv MTgvMjAyNTwvdGQ+PHRkIH J9jKjkBXFh zPJiXGaaTf4cvGekkBoiRZ 1zNYAhxwktYLRjdQ7tDDCj lNUzxFfbGL1nGMJdrzfnk8 99LzJwNBL8 DUEydUHkK6NdeS2lEzBqPX EvVZWqV7AezXVdPLzbP863 UOicOmF8EVByaxPfP5GnMW FsaWduOiB0 l0S4Va7Pr3JjdzvuL4ZvqV WzMkTpQjjeFAj8F5KtJsxu dHI+GZ61FJWjKY34JHe4PL U5uBagJRec XUKzQ4VnoR9qGdZgOKCdXQ RkOyc+PHRhYmxlIHdpZHRo SCaqKGHjJgUmzBgxBA7iDo 9yZGVyLWNv tQftiDYgTwOlv8tsMNRlCJ pgUT4rzIngA7UqnAT3QTEw g8l9Xb65Z13eX8UjaRN+PG EieVF8gGR7 vM9hRfPbBjS8FRmwG395Cr WxuNYyPaxuv0msm7sbwCt1 MwI9TBSkreMasGvaDXZ6g5 NsZg22R87p IHdpZHRoPSIxNSUiIHZhbG vjnr1rrT0iPz9+PGNvbCB3 bSO5vK5sKkMrQwS4ALzuI8 49InRvcCIv Cqzau5voy4togEa0NvNkRM FtcjZylYplGQC9m7IvWe98 P3KajFfst3LuYio6bx40iV Wvv2N8eAZ6 L9BwLIAbpiajiZWcmSnbOB 8uKFLdtzohOVZooU2jZROz B7v9YeSuQaA5LRswD9Gdjc V0HFTiwNEo YZYjlLNTeN8zwdkgt8vdid laQtRyNAXeQEz1ZJb6AOCn sDxyVsUhJUD9AjZ3OSE7qW DhoF9bmApu syrsbE6cPud+SCM0uIQtpX AHPT7bGavjrBW+PHRkIHN0 hNfaBBgyOJXxqZ2xYCWxY1 z0TyRtIeB7 SYeqM2NlocY9VYHpsKHlYE NnbQFLsH8uiwhqc6karzgg KrLoWJQuACm0OKd9SQBreO duOiBsZWZ0 XuT5JQM7eKQbjI9kjXmqxv eljP7hJhq+QmlydGggRGF0 PQl0Z0ItQax2TWIgoYkpMC 0ncGFkZGlu Zv1caAjujXfmWE1zVYNquc lnt083TuSde8mpPUUnaEJm VGzlKXR1T93ub5X5UNBbDB BaDNC8cXL3 rX8uoMcvbzhjdTWopQvijg QvkSpjNNjgWLnwQ739ZSPq gUkgBxBzAMo0R7HvJmd5VS YvfGqqMD3j wXGvDZfdEn5snBnajWgiLK 3oFXDdcohae996EiQpl0qc DWNazPWrWGvcAWQ9R24yn0 H8YKEaBKRp DIM8vTJ1dT3ujOsnnooabX VmdDsgdmVydGljYWwtYWxp Q126UPWawJxmDjJjzMq5D6 EuJvz4HPCa eVttEH8vgNLeAFxzJw0diW izoIxxJV0wTNIytcpvl027 DhJtc2zqXOGouJBaPZdlTU Q9T94qh7I1 DDDeXVQzFCZ7mCG6vK4atH lnbjogbGVmdDsgdmVydGlj SZabZLqfN474IHFeaBmqMk BhdGllbnQg GJabOEs7M6VoXtdlbRS+PC 96QPYoOI04dLQlmVJhj6tt vHc6VfFhUCPcJVT1tRfyXN zax4RdQOTp S44pkBXwz8Q4DJNztOwhjU MgAdQeaTA4qW8yMXjkxtcl x2bgwztyUimen2wakg82nI 94C35iMMbk ZHRoPSIzMCUiIHZhbGlnbj 3xiQ6eNg9+LUHefWM7zNU3 jM9hNXGzYuJ4IUmqH697Yk RvcCIvPjxj g8hgp5xfmFj0IlR5KZBzry PajHlrSGO6b7PiXa87E74k IHdpZHRoPSIyMCUiIHZhbG jlee4iqS5b Ii8+FXQlvCX6hHE0uE7fNn UoDkQ1ZVazJ144YsOwcMNr UywcY98wK4BhySL+PHRyPj a1TLTrmLar RS3ajWDmWIdiPn4hGAJ1Hh VcThFjWMafD7CpXDGqegnr loefaPB2HGOjUFTokP33Sr 9udDogMTBw xYEDvM2mmbguq4bsaxotYj EbEWTvOCk3JOi4NXXuqNmo WsOeLZD2KjL8LIF7dCKchJ 1hbGlnbjog rD5cM8XvJCQedeaiUi90xR 8fOwZkFuW7TSgbGia+TUNN YITTADQoRPLATQ6URSBOCI xFTjwvdGQ+ PYWpPPJ4lYctYQudLTMwwS 5pINRgN3d2DcWsRtQ6DJmd N4UzLQSelxttRh97bR5sFn DmMjM5EUyu G1PjfsL4QLThoYJlIGvoSD X7T01nf8J7WURdAATeBIA9 wAK8wR8irHqilmewbQVbtX sgdmVydGlj GNglYNwgT822VAKcfWqhGd B5OuWsOtR7LFJ1V5QsQpa4 NAZrtYrhBB6yoVZyPRpzRm 1yaWdodDog WE5yZYMsvjirKDLgbD5nDW ZhnAIspEhkYU5pCZKvnadm n639ZuHuVLP9STWwfGTrY1 UlsG2bWaEt AKQnGFToG7PzwKFhHTnbB4 86VJadHwE0OIXntcIbQ3Mz BJUyoFbbQwK1s6M8Nj20Gc BZZWFyczwv dGQ+RBGcDXR0vKdoTVsdLD FipK3kEBZfZ2f3JbCbWnO2 OBznC6BrKGWxwgipTg56kI 5eTqFbEyH7 WXmoT8BxosM3XFJfyQCmAA gvIAQ5F35sp8T1NNRwJWXy SKH5qHF9iE4fpUhurnwjiH VmdDsgdmVy qSwvWSsqXEkrZ459WAAunQ quNh8VZXF0X2LfPzs9GIIr bHyzKZ6waTHiZCysVn8otX xlgKwgTD0r JLVfrkcoRCRngM8rPXJdsF RvpAqbMH6wLEFwemmci066 ZeJpJQS3ZHWlcIWmP3HcgR 9yOiAjMDAw HKGcQ1YfpHGpQQwyW183IG azDeP2CLPpttZlD3EiRBHu mOisWmZ4k4A6Ys5DTLtftQ Q+DP10fa40 M0HtTrgzZen4TFKlNTY6pZ J6nQ7rBFYeJOpmw7K5wBA9 Q8OsoiVude5pw1diPQQwWW geZ46epCBg o5X6IRKckEO9CYBgqXxzQs RfhC08Iyy+WAGzcYnya4Ra Kyyjx2wuv6jhdDk9KwRfTT IgdmFsaWdu LWI0e0YgHz07X78kYUniAA YeHVNvLUMiGQLcdVezoc2j bR7yGd5+HPTimFY0bJI5lF 5mZfApSjL7 LLakJ021BwYstKEqVrwns4 qoj1enpMd2CaCcYXMjynUl zBdjGQT1i7NtLc94E3XhdR mqn9UbZjs3 yk57gSOin4O2nMU8W6TxZU AsardywPZcwBxgCY0lLSYd mfyuQVZigV6vUIHyP8u5Zr BbSyB1OEbm P1VbyfC3PBEtaSMeBGSynV AYwQ7bbzkhp5snarzdRaXw CJJdGEg0SNr8PVZaeAhjYp OtJRC7BdZ9 PVQ5bLYerL5mdFnvlgnnbH 9wOyc+TMp7s1wyrGIhWA7v zYG5OL14MJ03hGIso4Y5eC H2W7GuDMHw rzuvxkimfTS4RJMiRXIsyV 78Dg0blQliYz5wVMQoRRD0 AWJziHSaZ7JmiD9bHnOdDC XsRRMuX8Sz cXEbTLvdX841UAobWyD2BO HfieIzI7RnCFUzyGveYsM0 a3S6Gt0ZQS21HH18BU60dO Wxj7V4uWG1 Z9WvIQDrxfvrelgroBR8JQ FpQJSztW41Bq9cdBjwVc3p IVPvQFT4XUNsuWIyS1PvpU 9yOiAjMDAw QEUiC6SyuJTiLZhqY361AC flWzY9TTFkpmAwB5BgDFYt jJdhGgZ5u4C9Ia3YXi02VH 57PC68tXCg z3Y7qOT0E2PgPEMwtfvgaf jllEA2ILWiMPMueM20Gu0c oPhaKy1pHPUmTOM3ARYxjY LjN5TxqC7n IyWgJNOuUAGzJ9CuoLIyGA sxZ669JWhwDcS3PKIjqzPi H2FoSCZlnKfiHrI4m7E0Ak 5WAMpmbnk1 X8EjDcjnqCS+RL91ETXkAU 70nLClrIXdu7imeDk6UzHu PBFbKVP6dJzmERnbp3XuXT KpD04nhHOe c2U (more content not included)... [facility] Progress Note - Nurseon 01-23 Progress Note - Nurse Dr Ovalles reviews pt chart and no new orders were received. [Electronically Signed on: 02/04/2025 12:38 EDT] Miranda Haed RN [Verified on: 02/04/2025 12:38 EDT] Miranda Head RN [facility] 36on 02-03-2025 36 Patient's says his BP is higher AFTER he takes lisinopril. They are leaving tomorrow to go to [place] for 2 weeks. I think they question [...] of his BP without, that was ok. [facility] 36 PER BRENNAN STAY ON 5 MG [facility] .Auto Diff 02-02-2025 Auto Bleck[place] % 7 % Normal 12-06 [facility] Comment on above: Performed By: #### 7 [id number], [id number], [id number] ####[facility] (DEFAULT)[address] [place] [address] Baso Abs# 0.0 x10 Normal 0.0-0.2 [facility] Comment on above: Performed By: #### 7 [id number], [id number], [id number] ####[facility] (DEFAULT)[address] [place] [address] 20174 Basophils/100 WBC (Bld) 0.7 % Normal 0.2-2.0 [facility] Comment on above: Performed By: #### 7 [id number], [id number], [id number] ####[facility] (DEFAULT)[address] [place] [address] 15335 Eos Abs# 0.2 x10 Normal 0.0-0.4 [facility] Comment on above: Performed By: #### 7 [id number], [id number], [id number] ####[facility] (DEFAULT)[address] [place] [address] 97425 Eosinophils/100 WBC (Bld) 2.9 % Normal 0.9-4.0 [facility] Comment on above: Performed By: #### 7 [id number], [id number], [id number] ####[facility] (DEFAULT)[address] [place] [address] 26146 Lymph Abs# 1.5 x10 Normal 1.3-2.9 [facility] Comment on above: Performed By: #### 7 [id number], [id number], [id number] ####[facility] (DEFAULT)[address] [place] [address] 58551 Lymphocytes/100 WBC (Bld) 22 % Normal 14-48 [facility] Comment on above: Performed By: #### 7 [id number], [id number], [id number] ####[facility] (DEFAULT)[address] [place] [address] 47184 Bleckley Abs# 0.5 x10 Normal 0.0-0.8 [facility] Comment on above: Performed By: #### 7 [id number], [id number], [id number] ####[facility] (DEFAULT)[address] [place] [address] 11445 Neut Abs# 4.6 x10 Normal 1.5-9.2 [facility] Comment on above: Performed By: #### 7 [id number], [id number], [id number] ####[facility] (DEFAULT)[address] [place] [address] 90446 Neutrophils/100 WBC (Bld) 67 % Normal 44-88 [facility] Comment on above: Performed By: #### 7 797544, [id number], [id number] ####[facility] (DEFAULT)[address] [place] [address] 41181 BMP Standardon 02-02-2025 eGFR Non AA 58 mL/min/1.73m2 Invalid Interpretation Code [facility] Comment on above: Performed By: #### 7 [id number], [id number], [id number] ####[facility] (DEFAULT)[address] [place] [address] 04763 eGFR AA >60 Invalid Interpretation Code [facility] Comment on above: Performed By: #### 7 [id number], [id number], [id number] ####[facility] (DEFAULT)[address] [place] [address] 65463 Anion gap [Moles/Vol] 12.6 mmol/L Normal 5.0-19.0 [facility] Comment on above: Performed By: #### 7 208756, [id number], [id number] ####[facility] (DEFAULT)[address] [place] [address] 43334 Calcium [Mass/Vol] 9.3 mg/dL Normal 8.9-10.3 [facility] Comment on above: Performed By: #### 7 764488, [id number], [id number] ####[facility] (DEFAULT)[address] [place] [address] 65956 Chloride [Moles/Vol] 105 mmol/L Normal 101-111 [facility] Comment on above: Performed By: #### 7 514807, [id number], [id number] ####[facility] (DEFAULT)[address] [place] [address] 53598 CO2 [Moles/Vol] 24 mmol/L Normal 21-32 [facility] Comment on above: Performed By: #### 7 463150, [id number], [id number] ####[facility] (DEFAULT)[address] [place] [address] 17626 Creatinine [Mass/Vol] 1.23 mg/dL Normal 0.90-1.30 [facility] Comment on above: Performed By: #### 7 922755, [id number], [id number] ####[facility] (DEFAULT)[address] [place] [address] 80484 Glucose [Mass/Vol] 103.0 mg/dL Normal 74.0-118.0 [facility] Comment on above: Performed By: #### 7 046258, [id number], [id number] ####[facility] (DEFAULT)[address] [place] [address] 38259 Osmolality 280 mOsm/L Invalid Interpretation Code [facility] Comment on above: Performed By: #### 7 [id number], [id number], [id number] ####[facility] (DEFAULT)[address] [place] [address] 49231 Potassium [Moles/Vol] 3.6 mmol/L Normal 3.6-5.1 [facility] Comment on above: Performed By: #### 7 818177, [id number], [id number] ####[facility] (DEFAULT)[address] [place] [address] 60268 Sodium [Moles/Vol] 138.0 mmol/L Normal 136.0-144.0 [facility] Comment on above: Performed By: #### 7 260324, [id number], [id number] ####[facility] (DEFAULT)[address] [place] [address] 41541 Urea nitrogen [Mass/Vol] 23 mg/dL Normal 8-26 [facility] Comment on above: Performed By: #### 7 009538, [id number], [id number] ####[facility] (DEFAULT)[address] [place] [address] 71324 Urea nitrogen/Creatinine [Mass ratio] 18.6 mg/mg High 4.6-16.2 [facility] Comment on above: Performed By: #### 7 280820, [id number], [id number] ####[facility] (DEFAULT)[address] [place] [address] CBC w/ Auto Diffon Erythrocyte distribution width (RBC) [Ratio] 14.5 % Normal 11.5-15.0 [facility] Comment on above: Performed By: #### 7 249456, [id number], [id number] ####[facility] (DEFAULT)[address] [place] [address] Hematocrit (Bld) [Volume fraction] 42.0 % Normal 34.8-51.9 [facility] Comment on above: Performed By: #### 7 550359, [id number], [id number] ####[facility] (DEFAULT)[address] [place] [address] Hemoglobin (Bld) [Mass/Vol] 14.4 g/dL Normal 11.8-17.7 [facility] Comment on above: Performed By: #### 7 287261, [id number], [id number] ####[facility] (DEFAULT)[address] [place] [address] Man Diff? Auto Invalid Interpretation Code [facility] Comment on above: Performed By: #### 7 460004, [id number], [id number] ####[facility] (DEFAULT)[address] [place] [address] MCH (RBC) [Entitic mass] 31 pg Normal 24-34 [facility] Comment on above: Performed By: #### 7 184867, [id number], [id number] ####[facility] (DEFAULT)[address] [place] [address] MCHC (RBC) [Mass/Vol] 34 g/dL Normal 26-37 [facility] Comment on above: Performed By: #### 7 246626, [id number], [id number] ####[facility] (DEFAULT)[address] [place] [address] MCV (RBC) [Entitic vol] 89 fL Normal 81-100 [facility] Comment on above: Performed By: #### 7 523064, [id number], [id number] ####[facility] (DEFAULT)[address] [place] [address] Platelet 233 x10 Normal 138-427 [facility] Comment on above: Performed By: #### 7 885382, [id number], [id number] ####[facility] (DEFAULT)[address] [place] [address] Platelet mean volume (Bld) [Entitic vol] 9.5 fL Normal 6.3-10.2 [facility] Comment on above: Performed By: #### 7 441200, [id number], [id number] ####[facility] (DEFAULT)[address] [place] [address] RBC 4.71 x10 Normal 3.70-5.30 [facility] Comment on above: Performed By: #### 7 945587, [id number], [id number] ####[facility] (DEFAULT)[address] [place] [address] 86902 WBC 6.9 x10 Normal 3.5-10.5 [facility] Comment on above: Performed By: #### 7 045225, [id number], [id number] ####[facility] (DEFAULT)[address] [place] [address] Telephoneon 02-02-2025 Telephone [phone] TigistOscar 1950 M Date Provider Department Center 02/02/2025 [facility] D[facility] Family History Problem Relation Age of Onset Other Mother Coronary artery disease Mother Other Father Family Status - Relation Status Age at Mother Father Normal [facility] 36on 12-24-2024 36 Patient called back to say his BP's are still running a little high. Sometimes around 144-148 systolic, but not often. I advised him to take another 5mg of lisinopril in the afternoon's if BP is elevated. Dr. Amin's note per [facility] says add lisinopril 5-10 . He verbalized understanding and will continue to keep an eye on his BP. Normal [facility] Telephoneon 12-11-2024 Telephone [id number] TigistOscar 1950 M Date Provider Department Center 12/11/2024 TRINITY DIAZ KATHARINA [place] [facility] Family History Problem Relation Age of Onset Other Mother Coronary artery disease Mother Other Father Family Status - Relation Status Age at Mother Father Normal [facility] XR Knee - bilateral AP W sta ndingon 11-11-2024 Imaging Result: Standing AP shows no gross evidence of major arthritic process, overall anatomic alignment appeared to be well preserved. There was no acute bony process including but not limited to fracture and/or dislocation. Impression: no gross evidence of major arthritic process or structural damage bilateral knees [facility] XR Knee - bilateral AP W sta ndingOrdered By: Jr. Waldrop on 11-11-2024 [facility] Work Phone: Office Visiton 11-10-2024 Follow-up visit [id number] Oscar Escoto 1950 M Date Provider Department Center 11/10/2024 Patrice-ROXANNE AMIN KATHARINA [facility] Family History Problem Relation Age of Onset Other Mother Coronary artery disease Mother Other Father Family Status - Relation Status Age at Mother Father Level of Service:21523 [place] OFFICE/OUTPATIENT ESTABLISHED LOW MDM 20 MIN Normal [facility] No Panel Informationon 11-09 Mary Lou Diane [...] discussed. Consent was given by the patient. [facility] XR Knee - bilateral AP W sta ndingon 11-09-2024 Radiology Study observation (narrative) [facility] Ambulatory Visit Summaryon 1 12-12-2023 Ambulatory Visit [...] Natali IRAHETA MD Where: [facility] [address] [place] [address]- You Need to Schedule the Following Appointments Follow Up with Natali IRAHETA MD, URL When: Comments: 6 mos Where: [facility] [address], [place] [address]- [phone] Medications What How Much When Instructions New ciprofloxacin (Cipro 500 mg Tab) 1 Tablets By Mouth Every 12 hours Duration: 30 Days Pickup at [facility] Unchanged finasteride (finasteride 5 mg [...] physician if questions or concerns Pharmacy Information [facility]: [address] [place], [place] [id number] [phone] Allergies No Known Medication Allergies Problems Ongoing - Any problem that you are currently receiving treatment for. 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 Normal [facility] Comment on above: Result Comment: Elec tronically Signed By: Natali IRAHETA MD\.br\Date and Time Signed: 10/12/24 16:15 EST\.br\Electronically Co-Signed By: Katheryn Fernandez\.br\Date and Time Co-Signed: 10/12/24 16:14 EST XR [...] Oliveira MD on 10/08/2024 1:54 PM Normal [facility] No Panel Informationon 08-13 Type of biopsy: [...] taken Amount of lidocaine used: 1.0 cc [facility] Office Visiton 06-09-2024 Follow-up visit [id number] Oscar Escoto 1950 [facility] Provider Department Mobile 06/09/2024 ROXANNE MARTINEZ [facility] Family History Problem Relation Age of Onset Other Mother Coronary artery disease Mother Other Father Family Status - Relation Status Age at Mother Father Level of Service:49773 [place] OFFICE/OUTPATIENT ESTABLISHED LOW MDM 20 MIN Normal [facility] Lab Reportson 03-30-2024 Lab Reports [id number] 0TIFF Normal [facility] Lab Reports [id number] 0TIFF Normal [facility] Lab Reportson 03-29-2024 Lab Reports [id number] 0TIFF Normal [facility] Lab Reportson 03-27-2024 Lab Reports [id number] 0TIFF Normal [facility] Office Visiton 03-17-2024 Follow-up visit [id number] Oscar Escoto 1950 M Date Provider Department Center 03/17/2024 SOLEDAD TAVERAS [facility]INA [facility] [facility] Family History Problem Relation Age of Onset Other Mother Coronary artery disease Mother Other Father Family Status - Relation Status Age at Mother Father Level of Service:33651 [place] OFFICE/OUTPATIENT ESTABLISHED LOW MDM 20 MIN Reason for Visit and Comments: Atrial Fibrillation [80] Normal [facility] Superficial Wound Cultureon 03-18-2023 Superficial Wound Culture [...] RESISTANT TO ALL [employer] DRUGS. PERFORMED BY: [place] [address] PATHOLOGIST MEDICAL INSURANCE CLAIMS PROCESSOR ISABELLA MCKEON M.D. Normal [facility] Comment on above: Performed By: #### C USUP #### [address] ECHOCARDIO M/2D COMPLETEon 0 03-12-2023 ECHOCARDIO M/2D COMPLETE Patient: OSCAR ESCOTO Exam Date: 03/12/2023 : 1950 Gender:M Ordering : DR NORTH CHAPIN . Admission #: [id number] Family : ROXANNE AMIN MD Order #: [id number] CLICK HERE TO VIEW EXAM ECHOCARDIOGRAM REPORT [...] Solorio M.D. on 03/12/2023 at 18:41 Normal [facility] US CAROTID ART BILon 04-18-2 023 US [...] MARÍA BRYSON Date: 2023-03-12 15:01 Normal [facility] CBC AUTO DIFFon 03-06-2023 BASO # 0.1 103/ul Normal 0.0-0.1 [facility] Comment on above: Performed By: #### C BC #### [facility] [address] [place] [address] Dr. Sanjuana Kasper Basophils/100 WBC (Bld) 0.9 % Normal 0.2-2.0 [facility] Comment on above: Performed By: #### C BC #### [facility] [address] [place] [address] Dr. Sanjuana Kasper EO # 0.3 103/ul Normal 0.0-0.7 [facility] Comment on above: Performed By: #### C BC #### [facility] [address] [place] [address] Dr. Sanjuana Kasper Eosinophils/100 WBC (Bld) 5.0 % Normal 0.9-7.0 [facility] Comment on above: Performed By: #### C BC #### [facility] [address] [place] [address] Dr. Sanjuana Kasper Erythrocyte distribution width (RBC) [Ratio] 13.5 % Normal 11.0-15.0 [facility] Comment on above: Performed By: #### C BC #### [facility] [address] [place] [address] Dr. Sanjuana Kasper Hematocrit (Bld) [Volume fraction] 41.9 % Critically low 42.0-54.0 [facility] Comment on above: Performed By: #### C BC #### [facility] [address] [place] [address] Dr. Sanjuana Kasper Hemoglobin (Bld) [Mass/Vol] 13.9 g/dL Critically low 14.0-18.0 [facility] Comment on above: Performed By: #### C BC #### [facility] [address] [place] [address] Dr. Sanjuana Kasper IG # 0.02 10e3/ul Normal 0.00-0.03 [facility] Comment on above: Performed By: #### C BC #### [facility] [address] [place] [address] Dr. Sanjuana Kasper IG % 0.3 % Normal 0.0-0.5 [facility] Comment on above: Performed By: #### C BC #### [facility] [address] [place] [address] Dr. Sanjuana Kasper LYMPH # 1.4 103/ul Normal 1.2-3.8 [facility] Comment on above: Performed By: #### C BC #### [facility] [address] [place] [address] Dr. Sanjuana Kasper Lymphocytes/100 WBC (Bld) 23.8 % Normal 20.5-60.0 [facility] Comment on above: Performed By: #### C BC #### [facility] [address] [place] [address] Dr. Sanjuana Kasper MANUAL DIFF REQ NO Normal [facility] Comment on above: Performed By: #### C BC #### [facility] [address] [place] [address] Dr. Sanjuana Kasper MCH (RBC) [Entitic mass] 29.5 pg Normal 25.9-34.0 [facility] Comment on above: Performed By: #### C BC #### [facility] [address] [place] [address] Dr. Sanjuana Kasper MCHC (RBC) [Mass/Vol] 33.2 g/dL Normal 29.9-35.2 [facility] Comment on above: Performed By: #### C BC #### [facility] [address] [place] [address] Dr. Sanjuana Kasper MCV (RBC) [Entitic vol] 89.0 fL Normal 80.0-94.0 [facility] Comment on above: Performed By: #### C BC #### [facility] [address] [place] [address] Dr. Sanjuana Kasper MONO # 0.4 103/ul Normal 0.3-0.8 [facility] Comment on above: Performed By: #### C BC #### [facility] [address] [place] [address] Dr. Sanjuana Kasper Monocytes/100 WBC (Bld) 7.1 % Normal 1.7-12.0 [facility] Comment on above: Performed By: #### C BC #### [facility] [address] [place] [address] Dr. Sanjuana Kasper NEUT # 3.7 103/ul Normal 1.4-6.5 [facility] Comment on above: Performed By: #### C BC #### [facility] [address] [place] [address] Dr. Sanjuana Kasper Neutrophils/100 WBC (Bld) 62.9 % Normal 43.0-75.0 [facility] Comment on above: Performed By: #### C BC #### [facility] [address] [place] [address] Dr. Sanjuana Kasper Platelet mean volume (Bld) [Entitic vol] 10.6 fL Normal 9.5-13.5 [facility] Comment on above: Performed By: #### C BC #### [facility] [address] [place] [address] Dr. Sanjuana Kasper PLT 259 103/ul Normal 150-450 [facility] Comment on above: Performed By: #### C BC #### [facility] [address] [place] [address] Dr. Sanjuana Kasper RBC 4.71 106/ul Normal 4.70-6.10 [facility] Comment on above: Performed By: #### C BC #### [facility] [address] [place] [address] Dr. Sanjuana Kasper WBC 5.8 103/ul Normal 4.0-11.0 [facility] Comment on above: Performed By: #### C BC #### [facility] [address] [place] [address] Dr. Sanjuana Kasper GLYCOHEMOGLOBIN A1Con 2022 ADA RECOMMENDATION SEE BELOW Normal [facility] Comment on above: Result Comment: ADA RECOMMENDED LIMIT 4.0 - 6.0 ADA THERAPEUTIC TARGET < 7.0 ACTION SUGGESTED > 7.0 Performed By: #### A 1C #### [facility] [address] [place] [address] Dr. Sanjuana Kasper Glucose [Mass/Vol] 108 mg/dL Normal [facility] Comment on above: Performed By: #### A 1C #### [facility] [address] [address] [address] Sanjuana Kasper HbA1c (Bld) [Mass fraction] 5.4 % Normal 4.5-6.2 [facility] Comment on above: Performed By: #### A 1C #### [facility] [address] [place] [address] Dr. Sanjuana Kasper LIPID PROFILEon 03-06-2023 CHOL-HDL RATIO NORM SEE BELOW Normal [facility] Comment on above: Result Comment: 3.3 - 4.4 LOW RISK 4.4 - 7.1 AVERAGE RISK 7.1 - 11.0 MODERATE RISK >11.0 HIGH RISK Performed By: #### T SH, LIPID, BMP, LIVER #### [facility] [address] [place] [address] Dr. Sanjuana Kasper Cholesterol [Mass/Vol] 192 mg/dL Normal <=200 [facility] Comment on above: Performed By: #### T SH, LIPID, BMP, LIVER #### [facility] [address] [place] [address] Dr. Sanjuana Kasper Cholesterol in HDL [Mass/Vol] 61 mg/dL Critically high 40-60 [facility] Comment on above: Performed By: #### T SH, LIPID, BMP, LIVER #### [facility] [address] [place] [address] Dr. Sanjuana Kasper Cholesterol in LDL [Mass/Vol] 122.2 mg/dL Normal [facility] Comment on above: Performed By: #### T SH, LIPID, BMP, LIVER #### [facility] [address] [place] [address] Dr. Sanjuana Kasper Cholesterol.total/Cho lesterol in HDL [Mass ratio] 3.1 {ratio} Normal [facility] Comment on above: Performed By: #### T SH, LIPID, BMP, LIVER #### [facility] [address] [address] [address] Sanjuana Kasper HDL NORMAL > or = 60 mg/dl - LO W CARDIOVASCULAR RISK <40 mg/dl - HIGH CARDIOVASCULAR RISK Normal [facility] Comment on above: Performed By: #### T SH, LIPID, BMP, LIVER #### [facility] [address] [address] [address] Sanjuana Kasper LDL CALC NORMAL SEE BELOW Normal [facility] Comment on above: Result Comment: <100 mg/dl OPTIMAL 100 - 129 mg/dl NEAR OR ABOVE OPTIMAL 130 - 159 mg/dl BORDERLINE HIGH 160 - 189 mg/dl HIGH >190 mg/dl VERY HIGH Performed By: #### T SH, LIPID, BMP, LIVER #### [facility] [address] [address] [address] Sanjuana Kasper Triglyceride [Mass/Vol] 44 mg/dL Normal <=150 [facility] Comment on above: Performed By: #### T SH, LIPID, BMP, LIVER #### [facility] [address] [address] [address] Sanjuana Kasper VLDL CALC 8.8 mg/dL Normal [facility] Comment on above: Performed By: #### T SH, LIPID, BMP, LIVER #### [facility] [address] [address] [address] Sanjuana Kapser LIVER PROFILEon 03-06-2023 Albumin [Mass/Vol] 3.6 g/dL Normal 3.4-5.0 [facility] Comment on above: Performed By: #### T SH, LIPID, BMP, LIVER ####[facility] [address] [id number]. Sanjuana Kasper Albumin/Globulin [Mass ratio] 1.0 {ratio} Normal [facility] Comment on above: Performed By: #### T SH, LIPID, BMP, LIVER ####[facility] [address] [id number]. Sanjuana Kasper ALP [Catalytic activity/Vol] 91 U/L Normal 46-116 [facility] Comment on above: Performed By: #### T SH, LIPID, BMP, LIVER ####[facility] [address] [address]Dr. Carlayazmin Kasper ALT [Catalytic activity/Vol] 28 U/L Normal 16-63 [facility] Comment on above: Performed By: #### T SH, LIPID, BMP, LIVER ####[facility] [address] [address]Dr. Sanjuana Kasper AST [Catalytic activity/Vol] 16 U/L Normal 15-37 [facility] Comment on above: Performed By: #### T SH, LIPID, BMP, LIVER ####[facility] [address] [address]Dr. Sanjuana Kasper BILI, CONJUGATED 0.1 mg/dL Normal 0.0-0.2 [facility] Comment on above: Performed By: #### T SH, LIPID, BMP, LIVER ####[facility] [address] [place], [place] [address]Dr. Sanjuana Kasper Bilirubin [Mass/Vol] 0.4 mg/dL Normal 0.2-1.0 [facility] Comment on above: Performed By: #### T SH, LIPID, BMP, LIVER ####[facility] [address] [place], [place] [address]Dr. Sanjuana Kasper Globulin (S) [Mass/Vol] 3.6 g/dL Normal [facility] Comment on above: Performed By: #### T SH, LIPID, BMP, LIVER ####[facility] [address] [place], [place] [address]Dr. Sanjuana Kasper Protein [Mass/Vol] 7.2 g/dL Normal 6.4-8.2 [facility] Comment on above: Performed By: #### T SH, LIPID, BMP, LIVER ####[facility] [address] [address]Dr. Sanjuana Kasper PROF CHEM 8 (BAS METB)on Anion gap [Moles/Vol] 12.2 mmol/L Normal [facility] Comment on above: Performed By: #### T SH, LIPID, BMP, LIVER ####[facility] [address] [id number]. Sanjuana Kasper Calcium [Mass/Vol] 9.1 mg/dL Normal 8.5-10.1 [facility] Comment on above: Performed By: #### T SH, LIPID, BMP, LIVER ####[facility] [address] [address]Dr. Sanjuana Kasper Chloride [Moles/Vol] 106 mmol/L Normal 98-107 [facility] Comment on above: Performed By: #### T SH, LIPID, BMP, LIVER ####[facility] [address] [address]Dr. Sanjuana Kasper CO2 [Moles/Vol] 26.9 mmol/L Normal 21.0-32.0 [facility] Comment on above: Performed By: #### T SH, LIPID, BMP, LIVER ####[facility] [address] [place], [place] [address]Dr. Sanjuana Kasper Creatinine [Mass/Vol] 0.98 mg/dL Normal 0.70-1.30 [facility] Comment on above: Performed By: #### T SH, LIPID, BMP, LIVER ####[facility] [address] [place], [place] [address]Dr. Sanjuana Kasper EGFR-AF [place] >60 Normal >=60 [facility] Comment on above: Performed By: #### T SH, LIPID, BMP, LIVER ####[facility] [address] [address]Dr. Sanjuana Kasper EGFR-NON AF [place] >60 Normal >=60 [facility] Comment on above: Performed By: #### T SH, LIPID, BMP, LIVER ####[facility] [address] [address]Dr. Sanjuana Kasper Glucose [Mass/Vol] 94 mg/dL Normal 74-106 [facility] Comment on above: Performed By: #### T SH, LIPID, BMP, LIVER ####[facility] [address] [address]Dr. Sanjuana Kasper Potassium [Moles/Vol] 4.1 mmol/L Normal 3.5-5.1 [facility] Comment on above: Performed By: #### T SH, LIPID, BMP, LIVER ####[facility] [address] [place], [place] [address]Ot. Sanjuana Kasper Sodium [Moles/Vol] 141 mmol/L Normal 136-145 [facility] Comment on above: Performed By: #### T SH, LIPID, BMP, LIVER ####[facility] [address] [place], [place] [address]Jh. Sanjuana Kasper Urea nitrogen [Mass/Vol] 17.0 mg/dL Normal 7.0-18.0 [facility] Comment on above: Performed By: #### T SH, LIPID, BMP, LIVER ####[facility] [address] [id number]. Sanjuana Kasper Urea nitrogen/Creatinine [Mass ratio] 17.3 mg/mg Normal [facility] Comment on above: Performed By: #### T SH, LIPID, BMP, LIVER ####[facility] [address] [place], [place] [address]Qy. Sanjuana Kasper TSHon 03-06-2023 TSH 1.951 uIU/mL Normal 0.358-3.740 [facility] Comment on above: Performed By: #### T SH, LIPID, BMP, LIVER #### [facility] [address] [place], [place] [address] FOOT LT WO [...] RAZ MATOS Date: 2022-12-20 14:53 Normal [facility] POINT OF CARE GLUCOSEon 11-0 Glucose [Mass/Vol] 94 mg/dL Normal 74-106 [facility] Comment on above: Performed By: #### P OCGLUC #### [facility] [address] [address] [address] Sanjuana Kasper XR FOOT LT 2Von [...] MARÍA BRYSON Date: 2022-09-27 18:28 Normal [facility] Covid-19 PCR (CVDTB)on 08-26 SARS-CoV-2 (COVID-19) RNA DAISY+probe Ql (Unsp spec) Not detected Normal NOT DETECTED [facility] Comment on above: Result Comment: This test is not yet approved or cleared by the [place] FDA. When there are no FDA-approved or cleared tests available, and other criteria are met, FDA can make tests available under an emergency access mechanism called an Emergency Use Authorization (EUA). The EUA for this test is supported by the [place] of Health and Human Service's (HHS's) declaration [...] with SARS-CoV-2. Performed By: #### C VDTBH ####[facility] [address] [id number]. Carlayazmin Ranjith PROF CHEM 8 (BAS METB)on Anion gap [Moles/Vol] 11.6 mmol/L Normal [facility] Comment on above: Performed By: #### B MP ####[facility] [address] [address]Dr. Sanjuana Kasper Calcium [Mass/Vol] 8.6 mg/dL Normal 8.5-10.1 [facility] Comment on above: Performed By: #### B MP ####[facility] [address] [address]Dr. Sanjuana Kasper Chloride [Moles/Vol] 107 mmol/L Normal 98-107 [facility] Comment on above: Performed By: #### B MP ####[facility] [address] [place], [place] [address]Dr. Sanjuana Kasper CO2 [Moles/Vol] 26.2 mmol/L Normal 21.0-32.0 [facility] Comment on above: Performed By: #### B MP ####[facility] [address] [place], [place] [address]Dr. Sanjuana Kasper Creatinine [Mass/Vol] 1.28 mg/dL Normal 0.70-1.30 [facility] Comment on above: Performed By: #### B MP ####[facility] [address] [place], [place] [address]Dr. Sanjuana Kasper EGFR-AF [place] >60 Normal >=60 [facility] Comment on above: Performed By: #### B MP ####[facility] [address] [place], [place] [address]Dr. Sanjuana Kasper EGFR-NON AF [place] 56 mL/min/1.73m2 Critically low >=60 [facility] Comment on above: Performed By: #### B MP ####[facility] [address] [place], [place] [address]Dr. Sanjuana Kasper Glucose [Mass/Vol] 121 mg/dL Critically high 74-106 [facility] Comment on above: Performed By: #### B MP ####[facility] [address] [address]Dr. Sanjuana Kasper Potassium [Moles/Vol] 3.8 mmol/L Normal 3.5-5.1 [facility] Comment on above: Performed By: #### B MP ####[facility] [address] [address]Dr. Sanjuana Kasper Sodium [Moles/Vol] 141 mmol/L Normal 136-145 [facility] Comment on above: Performed By: #### B MP ####[facility] [address] [place], [place] [address]Dr. Sanjuana Kasper Urea nitrogen [Mass/Vol] 24.0 mg/dL Critically high 7.0-18.0 [facility] Comment on above: Performed By: #### B MP ####[facility] [address] [place], [place] [address]Dr. Sanjuana Kasper Urea nitrogen/Creatinine [Mass ratio] 18.8 mg/mg Normal [facility] Comment on above: Performed By: #### B MP ####[facility] [address] [place], [place] [address]Dr. Sanjuana Kasper PROTIMEon 09-21-2022 INR Coag (PPP) [Relative time] 1.05 {INR} Normal [facility] Comment on above: Performed By: #### P TT, PT ####[facility] [address] [place], [place] [address]Dr. Sanjuana Kasper INR GUIDELINES SEE BELOW Normal [facility] Comment on above: Result Comment: VERONICA RED INR: 2.0 - 3.0 CONDITIONS NOT LISTED BELOW 2.5 - 3.5 FOR PROSTHETIC HEART VALVE REPLACEMENT 2.5 - 3.5 RECURRENT THROMBOSIS Performed By: #### P TT, PT ####[facility] [address] [place], [place] [address]Dr. Sanjuana Kasper PT Coag (PPP) [Time] 11.3 s Normal 9.0-11.6 [facility] Comment on above: Performed By: #### P TT, PT ####[facility] [address] [place], [place] [address]Nk. Sanjuana Kasper PTTon 09-21-2022 aPTT Coag (Bld) [Time] 30.0 s Normal 22.3-36.2 [facility] Comment on above: Performed By: #### P TT, PT ####[facility] [address] [place], [place] [address]Hg. Sanjuana Kasper XR FOOT MOISES MIN 3 [...] MARÍA BRYSON Date: 2022-08-01 17:51 Normal [facility]on 05-25 SARS-CoV-2 (COVID-19) RNA DAISY+probe Ql (Unsp spec) Not detected Normal NOT DETECTED [facility] Comment on above: Result Comment: This test is not yet approved or cleared by the [place] FDA. When there are no FDA-approved or cleared tests available, and other criteria are met, FDA can make tests available under an emergency access mechanism called an Emergency Use Authorization (EUA). The EUA for this test is supported by the [place] of Health and Human Service's (HHS's) declaration [...] SARS-CoV-2. Performed By: #### C TB #### [facility] [address] [place] [address] Dr. Sanjuana Medina 04-20-2022 L -- ---- Specimen: [id number] Received: 04/20/22 Status: LENIN Trejo Num: [id number] Spec Type: Surgical Subm Dr: Miguel Astogra DO Tissues: A Debridement-Skin/Other Than Skin (SCALP) Procedures: HE Stain, Gross/Micro L3 ---- Patient Age/Sex Location Account Attending Physician ---- Oscar Escoto 72/M [place] [id number] Miguel Astorga DO ---- SPEC NUM: [id number] RECD: 04/20/22 STATUS: LENIN TREJO NUM: [id number] DEMARCUS: 04/20/22- SUBM DR: Miguel Astorga DO ENTERED: 04/20/[address] [facility] [address]: SPEC TYPE: Surgical DEPT: S ORDERED: [...] thin rim of owusu unremarkable appearing skin. Cover Machine Operator sections are submitted in one cassette labeled A1. Type of Fixative: 10% Neutral Buffered Formalin (NORM/ROHIT) Microscopic Description One glass slide with H E stained material has been examined. The microscopic findings support the above pathologic diagnosis. ---- Specimen: [id number] Received: 04/20/22 Status: LENIN Gisell Num: [id number] Spec Type: Surgical Subm Dr: Miguel Astorga DO Tissues: A Debridement-Skin/Other Than Skin (SCALP) Procedures: HE Stain, Gross/Micro L3 ---- Patient: TigistOscar Hines [id number] (Continued) ---- Specimen: [id number] Received: 04/20/22 (Continued) Signed (signature on file) Favio Chong MD 04/24/222025 ---- Specimen: [id number] Received: 04/20/22 Status: LENIN Trejo Num: [id number] Spec Type: Surgical Subm Dr: Miguel Astorga DO Tissues: A Debridement-Skin/Other Than Skin (SCALP) Procedures: HE Stain, Gross/Micro L3 ---- Patient: TigistOscar Hines [id number] (Continued) ---- Specimen: Received: 04/20/22 (Continued) CPT Codes 43490 ---- ---- Specimen: Received: 04/20/22 Status: LENIN Trejo Num: [id number] Spec Type: Surgical Subm Dr: Miguel Astorga DO Tissues: A Debridement-Skin/Other Than Skin (SCALP) Procedures: NATALIA Mcdonald, Gross/Micro L3 ---- Patient: Oscar Escoto [id number] (Continued) ---- Signed (signature on file) Favio Chong MD 04/24/222025 [facility] Basic Metabolic Panelon 03-26 Calcium [Mass/Vol] 9.1 mg/dL Normal 8.2-10.2 [facility] Comment on above: Result Comment: PERF ORMED BY: [place] [address] PATHOLOGIST MEDICAL INSURANCE CLAIMS PROCESSOR ISABELLA MCKEON M.D. Performed By: #### B MP, CBC #### [address] Chloride [Moles/Vol] 103 mmol/L Normal 95-114 [facility] [place] Comment on above: Performed By: #### B MP, CBC #### [address] CO2 [Moles/Vol] 25.0 mmol/L Normal 22.0-30.0 [facility] Comment on above: Performed By: #### B MP, CBC #### [address] Creatinine [Mass/Vol] 1.13 mg/dL Normal 0.64-1.27 [facility] Comment on above: Performed By: #### B MP, CBC #### [facility] [address] [place] [address] Estimated GFR ( Ariane > 60 [facility] Comment on above: Result Comment: GFR estimated reference range: According to KDOQI guidelines, <60 ml/min/1.73m2 is sufficient to diagnose a patient with chronic kidney disease. Performed By: #### B MP, CBC #### [place] [address] [place] Estimated GFR (Non- Am > 60 [facility] Comment on above: Performed By: #### B MP, CBC #### [place] [address] [place] Glucose [Mass/Vol] 102 mg/dL High 70-100 [facility] Comment on above: Result Comment: [place] Glucose Reference Range is dependent on time and content of last meal. Glucose of more than 200 mg/dL in a nonstressed, ambulatory subject supports the diagnosis of Diabetes Mellitus. ADA recommended reference range Performed By: #### B MP, CBC #### [facility] [address] [place] [address] [place] Potassium [Moles/Vol] 4.2 mmol/L Normal 3.5-5.1 [facility] Comment on above: Performed By: #### B MP, CBC #### [facility] [address] [place] [address] [place] Sodium [Moles/Vol] 137 mmol/L Normal 136-146 [facility] Comment on above: Performed By: #### B MP, CBC #### [facility] [address] [id number] [place] Urea nitrogen [Mass/Vol] 18 mg/dL Normal 9-23 [facility] Comment on above: Performed By: #### B MP, CBC #### [facility] [address] [id number] [place] Basophils Auto (Bld) [#/Vol] Ordered By: Miguel Astorga on 04-19-2022 Basophils (Bld) [#/Vol] 0.1 10*3/uL 0.0-0.2 [facility] Basophils/100 WBC Auto (Bld) Ordered By: Miguel Astorga on 04-19-2022 Basophils/100 WBC (Bld) 0.9 % [facility] Blood hemoglobin measurement (mass/volume)Ordered By: Miguel Astorga on 04-19-2022 Hemoglobin (Bld) [Mass/Vol] 14.3 g/dL 13.0-17.0 [facility] Blood leukocytes automated c ount (number/volume)Ordered By: Miguel Astorga on 04-19-2022 WBC (Bld) [#/Vol] 5.5 10*3/uL 4.5-11.0 [facility] COVID-19 FRMCon 04-19-2022 SARS-CoV-2 (COVID-19) RNA DAISY+probe Ql (Unsp spec) Negative Normal Negative [facility] [facility] Comment on above: Order Comment: Comme nt For surgery tomorrow Healthcare Worker?: N Result Comment: Testing for SARS-CoV-2 by RT-PCR This test was developed and its performance characteristics determined by [employer]) and validated at the [facility]. This test has not been [...] is terminated or revoked sooner. PERFORMED BY: [place] [address] PATHOLOGIST MEDICAL INSURANCE CLAIMS PROCESSOR ISABELLA MCKEON M.D. Performed By: #### C OVID 19 [facility] #### [address] COVID-19 Positive/NegativeOr dered By: Miguel Astorga on 04-19-2022 SARS-CoV-2 (COVID-19) N gene DAISY+probe Ql (Resp) Negative Negative [facility] Comment on above: Testing for SARS-CoV -2 by RT-PCR This test was developed and its performance characteristics determined by [employer] and validated at the [facility]. This test has not been [...] Basophils (Bld) [#/Vol] 0.1 10*3/uL Normal 0.0-0.2 [facility] Comment on above: Result Comment: PERF ORMED BY: [place] [address] PATHOLOGIST MEDICAL INSURANCE CLAIMS PROCESSOR ISABELLA MCKEON M.D. Performed By: #### B MP, CBC #### [address] Basophils/100 WBC (Bld) 0.9 % Normal . [facility] Comment on above: Performed By: #### B MP, CBC #### [address] Eosinophils (Bld) [#/Vol] 0.2 10*3/uL Normal 0.0-0.45 [facility] Comment on above: Performed By: #### B MP, CBC #### [address] Eosinophils/100 WBC (Bld) 3.9 % Normal . [facility] Comment on above: Performed By: #### B MP, CBC #### [address] Erythrocyte distribution width (RBC) [Ratio] 14.1 % Normal 12.0-14.8 [facility] Comment on above: Performed By: #### B MP, CBC #### [address] Hematocrit (Bld) [Volume fraction] 43.0 % Normal 38.8-50.0 [facility] Comment on above: Performed By: #### B MP, CBC #### [facility] [address] Hemoglobin (Bld) [Mass/Vol] 14.3 g/dL Normal 13.0-17.0 [facility] Comment on above: Performed By: #### B MP, CBC #### [facility] [address] Lymphocytes (Bld) [#/Vol] 1.4 10*3/uL Normal 1.00-4.8 [facility] Comment on above: Performed By: #### B MP, CBC #### [facility] [address] Lymphocytes/100 WBC (Bld) 25.7 % Normal . [facility] Comment on above: Performed By: #### B MP, CBC #### [facility] [address] MCH (RBC) [Entitic mass] 29.9 pg Normal 27.5-35.2 [facility] Comment on above: Performed By: #### B MP, CBC #### [facility] [address] MCV (RBC) [Entitic vol] 89.8 fL Normal 83.5-101 [facility] Comment on above: Performed By: #### B MP, CBC #### [facility] [address] Mean Corpuscular HGB Conc 33.3 g/dL Normal 32.5-35.6 [facility] Comment on above: Performed By: #### B MP, CBC #### [facility] [address] [place] [address] [place] Monocytes (Bld) [#/Vol] 0.4 10*3/uL Normal 0.0-0.8 [facility] Comment on above: Performed By: #### B MP, CBC #### [facility] [address] [place] [address] [place] Monocytes/100 WBC (Bld) 6.9 % Normal . [facility] Comment on above: Performed By: #### B MP, CBC #### [facility] [address] [place] [address] [place] Neutrophils (Bld) [#/Vol] 3.5 10*3/uL Normal 1.8-7.7 [facility] Comment on above: Performed By: #### B MP, CBC #### [facility] [address] [place] [address] [place] Neutrophils/100 WBC (Bld) 62.6 % Normal . [facility] Comment on above: Performed By: #### B MP, CBC #### [facility] [address] [place] [address] [place] Nucleated RBC/100 WBC (Bld) [Ratio] 0.1 % Normal 0-0.5 [facility] Comment on above: Performed By: #### B MP, CBC #### [facility] [address] Platelet mean volume (Bld) [Entitic vol] 8.9 fL Normal 6.6-10.1 [facility] Comment on above: Performed By: #### B MP, CBC #### [facility] [address] [place] [address] [place] Platelets (Bld) [#/Vol] 260 10*3/uL Normal 150-450 [facility] Comment on above: Performed By: #### B MP, CBC #### [facility] [address] [place] [address] [place] RBC (Bld) [#/Vol] 4.79 10*6/uL Normal 3.90-5.60 [facility] Comment on above: Performed By: #### B MP, CBC #### [facility] [address] [place] [address] [place] WBC (Bld) [#/Vol] 5.5 10*3/uL Normal 4.5-11.0 [facility] Comment on above: Performed By: #### B MP, CBC #### [facility] [address] [place] [address] [place] Creatinine and Glomerular fi ltration rate.predicted panel (S/P/Bld)Ordered By: Miguel Astorga on 04-19-2022 Creatinine [Mass/Vol] 1.13 mg/dL 0.64-1.27 Fir [facility] ECG 12 lead ECGon 04-19-2022 ECG 12 lead ECG [facility] Main [place] [id number] Electrocardiograph Report Signed Patient: Oscar Escoto MR#: [id number] : 1950 Acct:[id number] Age/Sex: 72 / M ADM Date: 04/19/22 Loc: Room: Type: [facility] Attending Dr: Miguel Astorga DO Ordering [...] Suzie Garza MD 0 04/20/22 1516 Normal [facility] Eosinophils Auto (Bld) [#/Vo l]Ordered By: Miguel Astorga on 04-19-2022 Eosinophils (Bld) [#/Vol] 0.2 10*3/uL 0.0-0.45 [facility] Eosinophils/100 WBC Auto (Bl d)Ordered By: Miguel Astorga on 04-19-2022 Eosinophils/100 WBC (Bld) 3.9 % [facility] Erythrocyte distribution wid th Auto (RBC) [Ratio]Ordered By: Miguel Astorga on 04-19-2022 Erythrocyte distribution width (RBC) [Ratio] 14.1 % 12.0-14.8 [facility] Estimated glomerular filtrat ion rate (GFR) non- AmericanOrdered By: Miguel Astorga on 04-19-2022 GFR/1.73 sq M.predicted among non-blacks MDRD (S/P/Bld) [Vol rate/Area] > 60 mL/Min [facility] Hematocrit Auto (Bld) [Volum e fraction]Ordered By: Miguel Astorga on 04-19-2022 Hematocrit (Bld) [Volume fraction] 43.0 % 38.8-50.0 [facility] Laboratory - Hematology and Cell countsOrdered By: Miguel Astorga on 04-19-2022 Nucleated RBC/100 WBC (Bld) [Ratio] 0.1 % 0-0.5 [facility] Lymphocytes Auto (Bld) [#/Vo l]Ordered By: Miguel Astorga on 04-19-2022 Lymphocytes (Bld) [#/Vol] 1.4 10*3/uL 1.00-4.8 [facility] Lymphocytes/100 WBC Auto (Bl d)Ordered By: Miguel Astorga on 04-19-2022 Lymphocytes/100 WBC (Bld) 25.7 % [facility] MCH Auto (RBC) [Entitic mass ]Ordered By: Miguel Astorga on 04-19-2022 MCH (RBC) [Entitic mass] 29.9 pg 27.5-35.2 [facility] MCHC Auto (RBC) [Mass/Vol]Or dered By: Miguel Astorga on 04-19-2022 MCHC (RBC) [Mass/Vol] 33.3 g/dL 32.5-35.6 [facility] MCV Auto (RBC) [Entitic vol] Ordered By: Miguel Astorga on 04-19-2022 MCV (RBC) [Entitic vol] 89.8 fL 83.5-101 [facility] Monocytes Auto (Bld) [#/Vol] Ordered By: Miguel Astorga on 04-19-2022 Monocytes (Bld) [#/Vol] 0.4 10*3/uL 0.0-0.8 [facility] Monocytes/100 WBC Auto (Bld) Ordered By: Miguel Astorga on 04-19-2022 Monocytes/100 WBC (Bld) 6.9 % [facility] Neutrophils Auto (Bld) [#/Vo l]Ordered By: Miguel Astorga on 04-19-2022 Neutrophils (Bld) [#/Vol] 3.5 10*3/uL 1.8-7.7 [facility] Neutrophils/100 WBC Auto (Bl d)Ordered By: Miguel Astorga on 04-19-2022 Neutrophils/100 WBC (Bld) 62.6 % [facility] No Panel InformationOrdered By: Miguel Astorga on 04-19-2022 Estimated GFR () > 60 mL/Min [facility] Comment on above: GFR estimated refere nce range: According to KDOQI guidelines, <60 ml/min/1.73m2 is sufficient to diagnose a patient with chronic kidney disease. Pharmacy Creatinine Clearance (Chem N/A [facility] Platelet mean volume Auto (B ld) [Entitic vol]Ordered By: Miguel Astorga on 04-19-2022 Platelet mean volume (Bld) [Entitic vol] 8.9 fL 6.6-10.1 [facility] Platelets Auto (Bld) [#/Vol] Ordered By: Miguel Astorga on 04-19-2022 Platelets (Bld) [#/Vol] 260 10*3/uL 150-450 [facility] RBC Auto (Bld) [#/Vol]Ordere d By: Miguel Atsorga on 04-19-2022 RBC (Bld) [#/Vol] 4.79 10*6/uL 3.90-5.60 [facility] Serum or plasma calcium dieter urement (mass/volume)Ordered By: Miguel Astorga on 04-19-2022 Calcium [Mass/Vol] 9.1 mg/dL 8.2-10.2 [facility] Serum or plasma chloride shashank surement (moles/volume)Ordered By: Miguel Astorga on 04-19-2022 Chloride [Moles/Vol] 103 mmol/L 95-114 [facility] Serum or plasma glucose dieter urement (mass/volume)Ordered By: Miguel Astorga on 04-19-2022 Glucose [Mass/Vol] 102 mg/dL 70-100 [facility] Comment on above: ADA recommended refe rence range Random Glucose Reference Range is dependent on time and content of last meal. Glucose of more than 200 mg/dL in a nonstressed, ambulatory subject supports the diagnosis of Diabetes Mellitus. Serum or plasma potassium me asurement (moles/volume)Ordered By: Miguel Astorga on 04-19-2022 Potassium [Moles/Vol] 4.2 mmol/L 3.5-5.1 [facility] Serum or plasma sodium measu rement (moles/volume)Ordered By: Miguel Astorga on 04-19-2022 Sodium [Moles/Vol] 137 mmol/L 136-146 [facility] Serum or plasma total carbon dioxide measurement (moles/volume)Ordered By: Miguel Astorga on 04-19-2022 CO2 [Moles/Vol] 25.0 mmol/L 22.0-30.0 [facility] Serum or plasma urea nitroge n measurement (mass/volume)Ordered By: Miguel Astorga on 04-19-2022 Urea nitrogen [Mass/Vol] 18 mg/dL 9-23 [facility] Vital Signs Date Time Vital Sign Value Performing Clinician Facility 03-29-2025 14:09040 Body height 188 cm North Chapin MD Work Phone: [facility] 03-29-2025 14:09040 Body mass index (BMI) [Ratio] 33.38 kg/m2 North Chapin MD Work Phone: [facility] 03-29-2025 14:090400 Body temperature 97.81 [degF] North Chapin MD Work Phone: [facility] 03-29-2025 14:090400 Body weight 117.94 kg North Chapin MD Work Phone: [facility] 03-29-2025 14:09-0400 Diastolic blood pressure 68 mm[Hg] North Chapin MD Work Phone: [facility] 03-29-2025 14:09-0400 Heart rate 64 /min North Chapin MD Work Phone: [facility] 03-29-2025 14:09-0400 Respiratory rate 18 /min North Chapin MD Work Phone: [facility] 03-29-2025 14:09-0400 SaO2% (BldA) [Mass fraction] 97 % North Chapin MD Work Phone: [facility] 03-29-2025 14:09-0400 Systolic blood pressure 142 mm[Hg] North Chapin MD Work Phone: [facility] 02-02-2025 15:24-0400 Body height 188 cm Bud SUBRAMANIAN Work Phone: [facility] 02-02-2025 15:24-0400 Body mass index (BMI) [Ratio] 31.97 kg/m2 Bud SUBRAMANIAN Work Phone: [facility] 02-02-2025 15:24-0400 Body weight 112.95 kg Bud SUBRAMANIAN Work Phone: [facility] 10-12-2024 15:33-0500 Blood Pressure Location Natali IRAHETA [facility] [place] 10-12-2024 15:33-0500 Body temperature 98.6 [degF] Natali IRAHETA [facility] [place] 10-12-2024 15:33-0500 Diastolic blood pressure 75 mm[Hg] Natali IRAHETA [facility] 10-12-2024 15:33-0500 Heart rate 60 /min Natali IRAHETA [facility] 10-12-2024 15:33-0500 Respiratory rate 16 /min Natali IRAHETA [facility] 10-12-2024 15:33-0500 Systolic blood pressure 128 mm[Hg] Natali IRAHETA [facility] 10-07-2024 13:39-0500 Body height 188 cm Cecilia Verhoff PA-C [facility] 10-07-2024 13:39-0500 Body mass index (BMI) [Ratio] 31.33 kg/m2 Cecilia Verhoff PA-C [facility] Phone[facility] 10-07-2024 13:39-0500 Body weight 110.68 kg Cecilia Verhoff PA-C Work Phone: [facility] [employer] [facility] 10-07-2024 13:39-0500 Diastolic blood pressure 68 mm[Hg] Cecilia Verhoff PA-C [facility] Phone[facility] 10-07-2024 13:39-0500 Heart rate 66 /min Cecilia Verhoff PA-C Work Phone: [facility] [employer] [facility] 10-07-2024 13:39-0500 SaO2% (BldA) [Mass fraction] 94 % Cecilia Verhoff PA-C Work Phone: [facility] [employer] [facility] 10-07-2024 13:39-0500 Systolic blood pressure 133 mm[Hg] Cecilia Verhoff PA-C Work Phone: [facility] 06-24-2023 15:47-0400 Blood Pressure Location Natali IRAHETA [facility] 06-24-2023 15:47-0400 Diastolic blood pressure 80 mm[Hg] Natali IRAHETA [facility] 06-24-2023 15:47-0400 Heart rate 68 /min Natali IRAHETA [facility] 06-24-2023 15:47-0400 Respiratory rate 16 /min Natali IRAHETA [facility] 06-24-2023 15:47-0400 Systolic blood pressure 130 mm[Hg] Natali IRAHETA [facility] 05-07-2022 14:57-0400 Blood Pressure Location Natali IRAHETA [facility] 05-07-2022 14:57-0400 Diastolic blood pressure 81 mm[Hg] Natali IRAHETA [facility] 05-07-2022 14:57-0400 Heart rate 72 /min Natalitasha IRAHETA [facility] 05-07-2022 14:57-0400 Respiratory rate 16 /min Natalitasha IRAHETA [facility] 05-07-2022 14:57-0400 Systolic blood pressure 149 mm[Hg] Natali IRAHETA [facility] 04-20-2022 15:00-0400 Diastolic blood pressure 58 mm[Hg] DO Miguel Murcek Work Phone: [facility] 04-20-2022 15:00-0400 Heart rate 72 /min DO Miguel Murcek Work Phone: [facility] 04-20-2022 15:00-0400 Respiratory rate 16 /min DO Miguel Murcek Work Phone: [facility] 04-20-2022 15:00-0400 SaO2% (BldA) [Mass fraction] 95 % DO Miguel Murcek Work Phone: [facility] 04-20-2022 15:00-0400 Systolic blood pressure 118 mm[Hg] DO Miguel Murcek Work Phone: [facility] 04-20-2022 13:09-0400 Body temperature 97.5 [degF] DO Miguel Astorga Work Phone: [facility] 04-20-2022 13:09-0400 Inhaled oxygen flow rate 6 L/min DO Miguel Astorag Work Phone: [facility] 04-20-2022 12:40-0400 Body height 187.96 cm DO Miguel Astorga Work Phone: [facility] 04-20-2022 12:40-0400 Body mass index (BMI) [Ratio] 30.9 kg/m2 DO Miguel Astorga Work Phone: [facility] 04-20-2022 12:40-0400 Body weight 109.4 kg DO Miguel Astorga Work Phone: [facility] Encounters Encounter Date Encounter Type Care Provider Facility Start: 04-12-2025 ambulatory Natali Zelaya ty:[facility] Start: 03-29-2025 End: 03-29-2025 Bamboo flowsheet North Chapin MD Work Phone: [facility] Start: 03-29-2025 End: 03-29-2025 Bamboo flowsheet North Chapin MD Work Phone: [facility] Start: 03-29-2025 End: 03-29-2025 Patient encounter procedure North Chapin MD Work Phone: [facility] Work Phone: Start: 03-29-2025 End: 03-29-2025 Postop follow up visit related to original px North Chapin MD Work Phone: [facility] Comment on above: Medicare annual well ness visit, subsequent (Primary Dx); Prediabetes; Dyslipidemia (CMS/HCC); Encounter for long-term (current) use of medications; Screening PSA (prostate specific antigen); Paroxysmal atrial fibrillation (CMS/HCC) Start: 03-29-2025 End: 03-29-2025 ambulatory NORTH CHAPIN Not Available Start: 03-24-2025 End: 03-24-2025 Bamboo flowsheet Sakina Carpenter MD Work Phone: [facility] Start: 03-24-2025 End: 03-24-2025 Bamboo flowsheet Sakina Carpenter MD Work Phone: [facility] Start: 03-24-2025 End: 03-24-2025 Office outpatient visit 15 minutes Sakina Carpenter MD Work Phone: [facility] Comment on above: Seborrheic keratosis (Primary Dx); Actinic keratosis; Neoplasm of unspecified behavior of bone, soft tissue, and skin; Lentigines; History of malignant neoplasm of skin Start: 03-24-2025 End: 03-24-2025 ambulatory SAKINA CARPENTER Not Available Start: 2025 End: 2025 Bamboo flowsheet Nneka Hernandez SEDIMENT REMEDIATION CONSULTANT Work Phone: [facility] Start: 2025 End: 2025 Bamboo flowsbest Hernandez SEDIMENT REMEDIATION CONSULTANT Work Phone: [facility] Start: 2025 End: 2025 Postop follow up visit related to original px Nneka Hernandez SEDIMENT REMEDIATION CONSULTANT Work Phone: [facility] Comment on above: Status post arthrosc opy of left knee (Primary Dx) Start: 2025 End: 2025 ambulatory NNEKA HERNANDEZ Not Available Start: 03-04-2025 ambulatory [facility] Start: 03-01-2025 End: 03-01-2025 ambulatory [facility] Facility:[facility] Start: 02-26-2025 End: 02-28-2025 Refill Nneka Hernandez SEDIMENT REMEDIATION CONSULTANT Work Phone: [facility] Comment on above: Internal derangement of left knee (Primary Dx) Start: 02-03-2025 ambulatory [facility] Start: 02-02-2025 End: 02-02-2025 ambulatory BUD CUMMINS Not Available Start: 02-02-2025 End: 02-02-2025 Patient encounter procedure Bud Cummins PA Work Phone: [facility] Comment on above: Pre-op examination ( Primary Dx) Start: 02-02-2025 End: 02-02-2025 Preprocedural examination done Bud Cummins PA Work Phone: [facility] Work Phone: Start: 02-02-2025 End: 02-02-2025 Bamboo flowsheet Bud Cummins PA Work Phone: [facility] Start: 02-02-2025 End: 02-02-2025 Bamboo flowsheet Bud Cummins PA Work Phone: [facility] Start: 02-02-2025 End: 02-02-2025 ambulatory NORTH CHAPIN Facility:[facility] Start: 02-02-2025 Encounter for other preprocedural examination [facility] Start: 12-25-2024 End: 12-25-2024 Robyn Waldrop DO Work Phone: [facility] Start: 12-25-2024 End: 12-25-2024 Robyn Waldrop DO Work Phone: [facility] Start: 12-25-2024 End: 12-25-2024 Office outpatient visit 25 minutes Jr. Enrrique Waldrop DO Work Phone: [facility] Comment on above: Left knee pain, unsp ecified chronicity (Primary Dx); Internal derangement of left knee Start: 12-25-2024 End: 12-25-2024 ambulatory ENRRIQUE ZIMMERMAN Not Available Start: 12-18-2024 ambulatory [facility] Start: 12-11-2024 End: 12-14-2024 Telephone encounter Mary Lou Diane NP Work Phone: [facility] Comment on above: RX Start: 12-10-2024 End: 12-10-2024 Telephone encounter Mary Lou Deckering SEDIMENT REMEDIATION CONSULTANT Work Phone: [facility] Comment on above: MRI Start: 12-05-2024 End: 12-07-2024 Refill North Chapin MD Work Phone: [facility] Comment on above: Anxiety disorder, un specified type; Restless leg syndrome Start: 11-30-2024 End: 11-30-2024 Bamboo flowsheet Mary Lou Peterson Apling SEDIMENT REMEDIATION CONSULTANT Work Phone: [facility] Start: 11-30-2024 End: 11-30-2024 Bamboo flowsheet Mary Lou Peterson Apling SEDIMENT REMEDIATION CONSULTANT Work Phone: [facility] Start: 11-30-2024 End: 11-30-2024 Office outpatient visit 15 minutes Mary Lou Diane SEDIMENT REMEDIATION CONSULTANT Work Phone: [facility] Comment on above: Left knee pain, unsp ecified chronicity (Primary Dx); Arthritis of left knee; Internal derangement of left knee Start: 11-30-2024 End: 11-30-2024 ambulatory MARY LOU DIANE Not Available Start: 11-13-2024 ambulatory [facility] Start: 11-10-2024 End: 11-10-2024 ambulatory [facility] Start: 11-09-2024 End: 11-09-2024 Bamboo flowsheet Mary Lou Deckering SEDIMENT REMEDIATION CONSULTANT Work Phone: [facility] Start: 11-09-2024 End: 11-09-2024 Bamboo flowsheet Mary Lou Peterson Apling SEDIMENT REMEDIATION CONSULTANT Work Phone: [facility] Start: 11-09-2024 End: 11-09-2024 Office outpatient visit 25 minutes Mary Lou Deckering SEDIMENT REMEDIATION CONSULTANT Work Phone: [facility] Comment on above: Left knee pain, unsp ecified chronicity (Primary Dx); Arthritis of left knee Start: 11-09-2024 End: 11-09-2024 ambulatory MARY LOU Peterson APLING Not Available Start: 11-05-2024 End: 11-05-2024 Bamboo flowsheet Naomi Beltre C ENGINEER [facility] Start: 11-05-2024 End: 11-05-2024 Bamboo flowsheet Naomi Beltre C ENGINEER [facility] Start: 11-05-2024 End: 11-05-2024 ambulatory Naomi Beltre C [facility] Comment on above: Left knee pain, unsp ecified chronicity (Primary Dx) Start: 11-03-2024 End: 11-04-2024 ambulatory Franco Minnie C [facility]INEER [facility] Comment on above: Left knee pain, unsp ecified chronicity (Primary Dx) Start: 11-03-2024 End: 11-03-2024 Bamboo flowsheet Franco Minnie C ENGINEER [facility] Start: 11-03-2024 End: 11-03-2024 Bamboo flowsheet Franco Minnie C ENGINEER [facility] Start: 10-29-2024 End: 10-29-2024 Bamboo flowsheet Yenny Rowe PT [facility] Start: 10-29-2024 End: 10-29-2024 Bamboo flowsheet Yenny Rowe PT [facility] Start: 10-29-2024 End: 10-29-2024 ambulatory Yenny Rowe PT [facility] Comment on above: Left knee pain, unsp ecified chronicity (Primary Dx) Start: 10-28-2024 ambulatory [facility] Start: 10-27-2024 End: 10-27-2024 ambulatory Franco Minnie C ENGINEER [facility] Comment on above: Left knee pain, unsp ecified chronicity (Primary Dx) Start: 10-27-2024 End: 10-27-2024 Bamboo flowsheet Franco Minnie C ENGINEER [facility] Start: 10-27-2024 End: 10-27-2024 Bamboo flowsheet Franco Minnie C ENGINEER [facility] Start: 10-20-2024 End: 10-20-2024 ambulatory Yenny Rowe PT [facility] Comment on above: Left knee pain, unsp ecified chronicity (Primary Dx) Start: 10-20-2024 End: 10-20-2024 Bamboo flowsheet Yenny Rowe PT [facility] Start: 10-20-2024 End: 10-20-2024 Bamboo flowsheet Yenny Rowe PT [facility] Start: 10-14-2024 ambulatory [facility] Start: 10-12-2024 End: 10-12-2024 ambulatory Natali IRAHETA Facility:[facility] Start: 10-12-2024 End: 10-12-2024 Patient encounter procedure Natali IRAHETA [facility] Start: 10-07-2024 End: 10-07-2024 ambulatory [facility] Start: 10-07-2024 End: 10-07-2024 Office outpatient visit 25 minutes [facility] RAMON Work Phone: [facility] Comment on above: Left knee pain, unsp ecified chronicity (Primary Dx) Start: 10-07-2024 End: 10-07-2024 ambulatory [facility] Start: 09-07-2024 ambulatory [facility] Start: 08-27-2024 ambulatory [facility] Start: 08-25-2024 ambulatory [facility] Start: 08-13-2024 End: 08-13-2024 Bamboo flowsheet Sakina Carpenter MD Work Phone: [facility] Start: 08-13-2024 End: 08-13-2024 Bamboo flowsbest Carpenter MD Work Phone: [facility] Start: 08-13-2024 End: 08-13-2024 Office outpatient visit 15 minutes Sakina Carpenter MD Work Phone: [facility] Comment on above: Seborrheic keratosis (Primary Dx); Lentigines; Melanocytic nevus of trunk; Angioma of skin; Actinic keratosis; History of basal cell carcinoma; Neoplasm of unspecified behavior of bone, soft tissue, and skin Start: 08-13-2024 End: 08-13-2024 ambulatory SAKINA CARPENTER Not Available Start: 07-24-2024 ambulatory [facility] Start: 06-24-2024 ambulatory [facility] Start: 06-11-2024 ambulatory [facility] Start: 06-09-2024 End: 06-09-2024 ambulatory [facility] Start: 05-15-2024 ambulatory [facility] Start: 05-13-2024 ambulatory [facility] Start: 03-24-2024 ambulatory [facility] Start: 03-17-2024 End: 03-17-2024 ambulatory [facility] Start: 03-17-2024 Patient encounter procedure Sakina Carpenter MD Work Phone: [facility] Start: 06-24-2023 End: 06-24-2023 Patient encounter procedure Natali IRAHETA [facility] Start: 04-09-2023 End: 04-09-2023 ambulatory MATTHIAS SAHA . Facility: Start: 03-18-2023 End: 03-18-2023 ambulatory Sakina Carpenter Facility:[facility] Start: 03-18-2023 End: 03-18-2023 ambulatory MD Sakina Carpenter Work Phone: [facility] Work Phone: Start: 03-18-2023 End: 03-18-2023 Departed Referred MD Sakina Carpenter Work Phone: [facility] [place] Work Phone: Start: 03-12-2023 End: 03-13-2023 ambulatory [...] Start: 09-26-2022 Encounter for preprocedural cardiovascular examination [facility] Kyler [facility] Start: 09-26-2022 Encounter for preprocedural laboratory examination [facility] K[facility] Start: 09-24-2022 ambulatory BARBIE CANSECO Faci [...] encounter procedure Natali IRAHETA [facility] Start: 04-27-2022 End: 06-04-[address] NATALI IRAHETA . Facility:[facility] Start: 04-20-2022 End: 04-20-2022 ambulatory Miguel Tracyshelby Facility:[facility] Start: 04-20-2022 End: 04-20-2022 Admission to same day surgery center DO Miguel Malusophiashelby Work Phone: [facility] [place] Start: 04-19-2022 End: 04-19-2022 ambulatory [place] Facility:[facility] Start: 04-19-2022 End: 04-19-2022 Patient encounter procedure DO Miguel Malusedrick Work Phone: [facility]-Pre-Surgical Testing Procedures Date Procedure Procedure Detail Performing Clinician Start: 03-24-2025 End: 03-24-2025 SKIN / NAIL BIOPSY Sakina Carpenter MD Work Phone: Start: 03-24-2025 CRYOTHERAPY SKIN LESION Sakina Carpenter MD Work Phone: Start: 11-09-2024 Arthrocentesis aspir &/inj major jt/bursa w/o us Mary Lou Diane SEDIMENT REMEDIATION CONSULTANT Work Phone: Start: 11-09-2024 Radiologic exam both knees standing anteropost Mary [place] Diane SEDIMENT REMEDIATION CONSULTANT Work Phone: Start: 08-13-2024 SKIN / NAIL BIOPSY Get Carpenter MD Work Phone: Start: 08-13-2024 CRYOTHERAPY SKIN LESION Sakina Carpenter MD Work Phone: Start: 04-09-2023 Colonoscopy Sakina watson MD Work Phone: Start: 04-27-2022 PSA screening [facility]HE Comment on above: Performed By: #### P SAD ####[place] [id number] [place] [id number] Kasper Start: 04-20-2022 OR Cheek Lesion Exc W/Flap Recon (Not Applicable) DO Miguel Astorga Work Phone: Colonoscopy Natali IRAHETA ft (qualifier value) Natali IRAHETA Prosthetic arthropla sty of the hip Natali IRAHETA Removal of Basal Agustina l on Nose Natali IRAHETA Repair of inguinal hernia Pa cielo IRAHETA Titanium Plate Left Arm Cleor ugo IRAHETA Tonsillectomy and adenoidectomy Natali IRAHETA Plan of Treatment Date Care Activity Detail Author Start: 04-09-2033 Screening for malignant neoplasm of colon [facility] Start: 12-06-2032 DTaP,Tdap and Td Vaccines (2 - Tdap) DTaP,Tdap and Td Vaccines (2 - Tdap) [facility] Start: 10-07-2025 Adult BMI Screening Adult BMI Screening [facility] Start: 10-07-2025 Tobacco Screening Tobacco Screening [facility] Start: 09-29-2025 End: 09-29-2025 Patient encounter procedure 09/29/2025 1:45 PM EST [facility] [address] [place] [address] [place] MD [address] [place] [address] [facility] Start: 09-28-2025 End: 09-28-2025 Patient encounter procedure 09/28/2025 3:05 PM EST Office Visit [facility] [address] [place] [address] Sakina Carpenter MD [address] [place] [address] [facility] Start: 04-12-2025 End: 04-12-2025 Patient encounter procedure 04/12/2025 3:15 PM EDT Office Visit [facility] [address] [place] [address] Nneka Hernandez, [employer]IM[employer] REMEDIATION CONSULTANT [address] [place] [address] [facility] Start: 03-29-2025 End: 03-29-2026 Basic metabolic 1998 panel - Serum or Plasma Basic metabolic panel Lab Routine Encounter for long-term (current) use of medications Expected: 03/29/2025 (Approximate), Expires: 03/29/2026 [facility] Comment on above: Expected: 03/29/2025 (Approximate), Expi res: 03/29/2026 Start: 03-29-2025 End: 03-29-2026 Hemoglobin A1c/Hemoglobin.total in Blood Hemoglobin A1c Lab Routine Prediabetes Expected: 03/29/2025 (Approximate), Expires: 03/29/2026 [facility] Work Phone: Comment on above: Expected: 03/29/2025 (Approximate), Expi res: 03/29/2026 Start: 03-29-2025 End: 03-29-2026 Lipid 1996 panel - Serum or Plasma Lipid panel Lab Routine Dyslipidemia (CMS/HCC) Expected: 03/29/2025 (Approximate), Expires: 03/29/2026 [facility] Comment on above: Expected: 03/29/2025 (Approximate), Expi res: 03/29/2026 Start: 03-29-2025 End: 03-29-2025 Patient encounter procedure [facility] Comment on above: Arrived Start: 03-24-2025 End: 03-24-2025 Patient encounter procedure 03/24/2025 1:00 PM EDT Office Visit [facility] [address] [place] [address] Sakina Carpenter MD [address] [place] [address] Arrived [facility] Comment on above: Arrived Start: 03-23-2025 End: 03-23-2025 Patient encounter procedure [facility] Start: 03-22-2025 End: 03-22-2025 Patient encounter procedure 03/22/2025 11:30 AM EDT Office Visit [facility] [address] [place] [address] [place] MD [address] [place] [address] [facility] Start: 03-17-2025 Medicare Annual Wellness (AWV) Medicare Annual Wellness (AWV) [facility] Start: 2025 End: 2025 Patient encounter procedure [facility] Comment on above: Arrived Start: 02-22-2025 End: 02-22-2025 Patient encounter procedure 02/22/2025 1:35 PM EDT Office Visit [facility] [address] [place] [phone] Sakina Carpenter MD [address] [place], [place] [id number] [facility] Start: 02-11-2025 End: 02-11-2025 Patient encounter procedure 02/11/2025 1:05 PM EDT Office Visit [facility] [address] [place] [phone] Sakina Carpenter MD [address] [place] [address] [facility] Start: 02-02-2025 End: 02-02-2025 Patient encounter procedure 02/02/2025 3:00 PM EDT Office Visit [facility] [address] [place] [address] Bud Cummins, PA [address] [place] [address] [facility] Start: 12-25-2024 End: 12-25-2024 Patient encounter procedure [facility] Comment on above: Arrived Start: 12-09-2024 End: 12-09-2024 Patient encounter procedure 12/09/2024 1:30 PM EST Office Visit [facility] [address] [place] [phone] Cecilia Anderson, RAMON [address] [place] [address] [facility] Start: 11-30-2024 End: 11-30-2025 [...] Treatment [facility] [address] [facility] [address] [place] [address] Yenny Rowe, PT [facility] Start: 11-12-2024 End: 11-12-2024 ambulatory 11/12/2024 5:00 PM EST Treatment [facility] [address] [facility] [address] [place] [address] Naomi Beltre, C ENGINEER [facility] Start: 11-09-2024 End: 11-09-2024 ambulatory 11/09/2024 4:00 PM EST Treatment [facility] [address] [place] [address] Yenny Rowe, PT [facility] Start: [...] DERM [address] [place] [phone] Sakina Carpenter MD [address] [place] [address] Arrived [facility] Comment on above: Arrived Start: 07-26-2024 COVID-19 Vaccine ( season) COVID-19 Vaccine ( season) [facility] Start: 07-26-2024 Influenza vaccination Influenza Vaccine (#1) [facility] Start: 03-18-2023 Superficial Wound Culture Superficial Wound Culture [facility] Start: 2017 Fall Risk Screening Fall Risk Screening [facility] Start: 1970 Adult BMI Follow Up Plan Adult BMI Follow Up Plan [facility] Start: 1964 Depression Screening Depression Screening [facility] Start: 1952 Medicare Annual Wellness (AWV) Medicare Annual Wellness (AWV) [facility] Start: 1950 Screening for malignant neoplasm of colon [facility] Dermatopathology exam Dermatopat hology exam Pathology and Cytology Timed Neoplasm of unspecified behavior of bone, soft tissue, and skin Release Upon Ordering for 1 Occurrences starting 08/13/2024 [facility] Work Phone: Comment on above: Release Upon Ordering for 1 Occurrences starting 08/13/2024 Dermatopathology exam Dermatopat hology exam Pathology and Cytology Timed Neoplasm of unspecified behavior of bone, soft tissue, and skin Release Upon Ordering for 1 Occurrences starting 03/24/2025 [facility] Work Phone: Comment on above: Release Upon Ordering for 1 Occurrences starting 03/24/2025 SARS-CoV-2 (COVID-19 ) N gene [Presence] in Respiratory specimen by DAISY with probe detection [facility] Work Phone: End: 10-07-2025 XR Knee - left 3 Views X-ray knee left 3 views Imaging Routine Left knee pain, unspecified chronicity 1 Occurrences starting 10/07/2024 until 10/07/2025 [facility] Work Phone: Comment on above: 1 Occurrences starting 10/07/2024 until 10/07/2025 XR Knee - left 3 Views X-ray kne e left 3 views Imaging Routine Left knee pain, unspecified chronicity 10/07/2024 2:40 PM EST [facility] [facility] Immunizations Immunization Date Immunization Notes Care Provider Fa [facility] 08-09-2024 influenza virus vacc ine, unspecified formulation Natali IRAHETA [facility] 08-22-2023 influenza virus vacc ine, unspecified formulation Sakina Carpenter MD Work Phone: [facility] 09-02-2022 influenza virus vacc ine, unspecified formulation Natali Volance [facility] 10-05-2021 SARS-CoV-2 (COVID-19 ) mRNA BNT-162b2 vax Natali Volance [facility] 08-14-2021 influenza virus vacc ine, unspecified formulation Natali Volance [facility] 08-14-2021 pneumococcal polysaccharide vaccine, 23 valent Natali IRAHETA [facility] 03-22-2021 SARS-CoV-2 (COVID-19 ) mRNA BNT-162b2 vax Natali Volance [facility] Comment on above: Result Comment: donna gonzalez 03-22-2021 SARS-CoV-2 (COVID-19 ) mRNA-1273 vaccine Natali IRAHETA [facility] 03-01-2021 SARS-CoV-2 (COVID-19 ) mRNA BNT-162b2 vax Natali IRAHETA [facility] 02-23-2021 SARS-CoV-2 (COVID-19 ) mRNA BNT-162b2 vax Natali IRAHETA [facility] Comment on above: Result Comment: donna gonzalez 08-05-2020 influenza virus vacc ine, unspecified formulation Natali Volance [facility] 08-05-2020 pneumococcal conjuga te vaccine, 13 valent Natali Volance [facility] 08-31-2019 influenza virus vacc ine, unspecified formulation [employer] [facility] 07-08-2018 influenza virus vacc ine, unspecified formulation Natali Volance [facility] 07-08-2018 zoster vaccine recombinant [employer] [facility] 03-25-2018 zoster vaccine recombinant [employer] [facility] 08-08-2017 influenza virus vacc ine, unspecified formulation [employer] [facility] 07-26-2017 influenza virus vacc ine, unspecified formulation Natalitasha IRAHETA [facility] 07-19-2016 influenza virus vacc ine, unspecified formulation Natali IRAHETA [facility] 09-03-2015 influenza virus vacc ine, unspecified formulation Natali IRAHETA [facility] Payers Date Payer Category Payer Medicaid AETNA MEDICARE A DVANTAGE [id number] 2022 Medicare AETNA MEDICARE A DVANTAGE AETNA MEDICARE REPLACEMENT [id number] 2022-Present [address] [place] [address] [id number] 2022 Self-pay [id number] 2021 Medicare HMO AETNA MEDICARE [id number] 1959 Private Health Insurance [id number] 1952 Unknown [id number] 2.16.840.1.745907.3.579.2. 593 1952 Unknown [id number] 2.16.840.1.237889.3.579.2. 593 1952 Unknown [id number] 2.16.840.1.911567.3.579.2. 593 1952 Unknown [id number] 2.16.840.1.675535.3.579.2. 593 1952 Unknown [id number] 2.16.840.1.751410.3.579.2. 593 1952 Unknown [id number] 2.16.840.1.688011.3.579.2. 593 1952 Unknown [id number] 2.16.840.1.976953.3.579.2. 593 1952 Unknown [id number] 2.16.840.1.530147.3.579.2. 593 1952 Unknown [id number] 2.16.840.1.046723.3.579.2. 593 1952 Unknown [id number] 2.16.840.1.694358.3.579.2. 593 1952 Unknown [id number] 2.16.840.1.498894.3.579.2. 593 1952 Unknown [id number] 2.16.840.1.055435.3.579.2. 593 1952 Unknown [id number] 2.16.840.1.090493.3.579.2. 593 1952 Unknown [id number] 2.16.840.1.770452.3.579.2. 593 1952 Unknown [id number] 2.16.840.1.258525.3.579.2. 593 1952 Unknown [id number] 2.16.840.1.398401.3.579.2. 1286 1952 Unknown [id number] 2.16.840.1.080718.3.579.2. 1286 1952 Unknown [id number] 2.16.840.1.756024.3.579.2. 727 1952 Unknown [id number] 2.16.840.1.605388.3.579.2. 727 1952 Unknown [id number] 2.16.840.1.314061.3.579.2. 125 1952 Unknown [id number] 2.16.840.1.460579.3.579.2. 125 1952 Unknown [id number] 2.16.840.1.609628.3.579.2. 125 1952 Unknown [id number] 2.16.840.1.836388.3.579.2. 125 1952 Unknown [id number] 2.16.840.1.642653.3.579.2. 1259 1952 Unknown [id number] 2.16.840.1.000706.3.579.2. 1259 1952 Unknown [id number] 2.16.840.1.834516.3.579.2. 125 1952 Unknown [id number] 2.16.840.1.535418.3.579.2. 125 1952 Unknown [id number] 2.16.840.1.114256.3.579.2. 125 1952 Unknown [id number] 2.16.840.1.948385.3.579.2. 1259 1952 Unknown [id number] 2.16.840.1.960150.3.579.2. 9 1952 Unknown [id number] 2.16.840.1.713535.3.579.2. 1259 1952 Unknown [id number] 2.16.840.1.453004.3.579.2. 1258 1952 Unknown [id number] 2.16.840.1.556221.3.579.2. 9 1952 Unknown [id number] 2.16.840.1.427906.3.579.2. 718 1952 Unknown [id number] 2.16.840.1.423754.3.579.2. 718 Private Health Insurance Aetna Mcr PFFS Non Pt [id number] Unknown [id number] Unknown [id number] 2.16.840.1.443884.3.579.2. 531 Unknown [id number] 2.16.840.1.701689.3.579.2. 531 Unknown [id number] 2.16.840.1.140226.3.579.2. 531 Social History Date Type Detail Facility Start: 05-07-2022 End: 08-12-2023 Tobacco smoking status Never smoked tobacco (finding) [facility] Work Phone: Start: 02-03-2024 End: 03-29-2025 Sex Assigned At Male [facility] Start: 1950 Sex Assigned At Male [facility] Tobacco smoking status Never [facility] Start: 01-29-2023 End: 08-12-2023 Tobacco use and exposure Smokeless tobacco non-user [facility] Start: 08-13-2024 End: 03-29-2025 Alcoholic beverage intake Ex-drinker (finding) [facility] Start: 02-03-2024 End: 03-29-2025 History of Social function [facility] Do you belong to any clubs or organizations such as yazidi groups, unions, fraternal or athletic groups, or [...] beverage intake Current drinker of alcohol (finding) [facility] Start: 06-30-2015 Sex Male (finding) [facility] Start: 10-11-2020 Gender identity Identifies as male gender (finding) [facility] Start: 10-11-2020 Sexual orientation Heterosexual (finding) [facility] Medical Equipment Procedure Code Equipment Code Equipment Origin al Text Equipment Identifier Dates Mesh Brd Perfix Plug Med Rpl 16422 Rpl [id number] - [id number] - [id number] Start: 09-23-2018 Mesh Brd Preshap e Hawkins 3x5 Rpl [id number] - [id number] Start: 09-23-2018 Comment on above: Description: 13.7 cm x 5.9 cm cut to fit defect Linr Actb 36mm F Ntrl E1 Clr - [id number] Start: 07-10-2017 Hd Fem 36mm Opt G7 Blx D Hip Rpl 650-1057 - [id number] Start: 07-10-2017 Slv Fem Opt +3mm Tpr Hip Blx D Rpl 650-1067 - [id number] Start: 07-10-2017 Stm Fem 125mm 13 3d 20 Hi Os - [id number] Start: 07-10-2017 Shell [id number] Start: 07-10-2017 Goals Date Patient Goal Desired Activity /State Personal health goal Comment on above: Formatting of this n ote might be different from the original. Evaluation of progress towards goal: Maximize work with PT at discharge to strengthen R hip Functional Status Date Assessment Result Facility 03-29-2025 Patient Health [facility] ionnaire 2 item (PHQ-2) [Reported] [facility] 10-12-2024 Functional Status N/A [facility] 06-24-2023 Functional Status N/A [facility] 05-07-2022 Functional Status N/A [facility] Clinical Notes 05-07-2022 to 03-29-2025 [place] MD - 03/29/2025 2:43 PM [place] MD - 03/29/2025 2:00 PM Jameson Carpenter MD - 03/24/2025 1:00 PM Jasbir Hernandez NP - 2025 10:00 AM EDT Note Date & Type Note Facility 03-29-2025 History of Present illness Narrative Associated Problem(s): Medicare annual wellness visit, subsequent Due for labs. Discussed proper diet and regular aerobic exercise. Need aerobic exercise 5-6 days a week for 30 minutes at a time. Smaller portions and limit total calories. Colonoscopy every 10 years. Tetanus every 10 years. Advised not to smoke. Images from the original note were not included. Subjective Patient ID: Oscar Escoto is a 75 y.o. male who presents for Medicare Annual Wellness Visit Subsequent (Wellness/Sleeping medication). Presents for medicare annual wellness visit. Patient feels well today. Weight up 12 pounds in the past year. Recent arthroscopic surgery on left knee and wasn't as active. Plans on returning to [facility] several days a week. Resumed walking dog when nice out. Tries to watch diet and eat healthy. Increased fruits and vegetables. Smaller portions and limits snacking. Tries to limit total daily calories. Due for labs. Review of Systems Constitutional: Negative for fatigue. Respiratory: Negative for cough, shortness of breath and wheezing. Cardiovascular: Negative for chest pain and palpitations. Gastrointestinal: Negative for abdominal pain, diarrhea, nausea and vomiting. Genitourinary: Negative for dysuria. Objective Physical Exam Constitutional: General: He is not in acute distress. Appearance: Normal appearance. HENT: Head: Normocephalic. Right Ear: Tympanic membrane and ear canal normal. Left Ear: Tympanic membrane and ear canal normal. Eyes: Extraocular Movements: Extraocular movements intact. Pupils: Pupils are equal, round, and reactive to light. Cardiovascular: Rate and Rhythm: Normal rate and regular rhythm. Heart sounds: No murmur heard. No friction rub. No gallop. Pulmonary: Breath sounds: Normal breath sounds. No wheezing, rhonchi or rales. Abdominal: General: Bowel sounds are normal. There is no distension. Palpations: Abdomen is soft. Tenderness: There is no abdominal tenderness. There is no guarding or rebound. Musculoskeletal: General: Normal range of motion. Left lower leg: No edema. Neurological: General: No focal deficit present. Mental Status: He is alert. Cranial Nerves: No cranial nerve deficit. Deep Tendon Reflexes: Reflexes normal. Assessment/Plan Problem List Items Addressed This Visit Dyslipidemia (CMS/[facility]) Relevant Orders Lipid panel Prediabetes Relevant Orders Hemoglobin A1c Medicare annual wellness visit, subsequent - Primary Due for labs. Discussed proper diet and regular aerobic exercise. Need aerobic exercise 5-6 days a week for 30 minutes at a time. Smaller portions and limit total calories. Colonoscopy every 10 years. Tetanus every 10 years. Advised not to smoke. Encounter for long-term (current) use of medications Relevant Orders Basic metabolic panel Screening PSA (prostate specific antigen) Other Visit Diagnoses Anxiety disorder, unspecified type documented in this encounter [facility] 03-24-2025 History of Present illness Narrative Images from the original note were not included. Skin Check Location: Patient requests a skin examination from the waist up, and left lower leg. Declines full body exam Dermatologic history: history of Actinic Keratosis, history of Basal Cell Carcinoma - does not like Efudex cream Last visit: 08/13/2024 Established patient Lesions: Location: Left calf Duration: Months Quality: Modifying factors: Non healing, recurrent Associated symptoms: Red crusted bump Treatments: None All pertinent medical history, medications, and allergies were reviewed. General Exam: alert, oriented to person, place, and time, normal affect, well appearing A complete skin exam was offered, pt declined. Areas not examined despite medical recommendation: From the waist down Scalp, Examined Head, Face Examined Neck Examined Chest Examined Back Examined Abdomen Examined Right arm Examined Left arm Examined Hands Examined Digits,nails: Examined Lower legs: Examined, kept shorts and shoes on Skin Exam 1. SEBORRHEIC KERATOSIS Generalized Stuck on verrucous, owusu-brown papules and plaques. Patient was counseled regarding these benign growths. Removal is normally not necessary, but they may be removed if they are symptomatic or for cosmetic reasons. 2. 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 Method: Liquid nitrogen was used to treat the lesion(s) with two 5-10 second freeze-thaw cycles. Number of lesions treated: 9 Post-procedure instructions: Instructions were given orally and in writing. The office will be contacted if the lesion fails to resolve despite treatment, or if a side effect develops such as abnormal crusting, scabbing, redness or tenderness Cryotherapy, skin lesion - Left Buccal Cheek, Left Evangelical, Right Buccal Cheek, Right Dorsal Hand (2), Right Posterior Mandible, Right Posterior Neck (2), Right Tragus 3. NEOPLASM OF UNSPECIFIED BEHAVIOR OF BONE, SOFT TISSUE, AND SKIN (3) Left Lower Leg - Posterior Erythematous, hyperkeratotic nodule Lesion biopsy Type of biopsy: tangential Informed [...] details: Photo taken Amount of lidocaine used: 3 cc Specimen A - Dermatopathology exam Differential Diagnosis: SCC Check Margins: No Size of lesion: 2.0 x 1.7 cm Right Forearm [place] scaly plaque Lesion biopsy Type of biopsy: tangential Informed [...] details: Photo taken Amount of lidocaine used: 1 cc Specimen B - Dermatopathology exam Differential Diagnosis: SCC vs BCC Check Margins: No Size of lesion: 2.3 x 2.0 cm Left sanders [place] papule Lesion biopsy Type of biopsy: tangential Informed [...] details: Photo taken Amount of lidocaine used: 1.5 cc Specimen C - Dermatopathology exam Differential Diagnosis: BCC vs DF Check Margins: No Size of lesion: 1.0 x 1.0 cm 4. LENTIGINES Generalized Scattered owusu macules in sun-exposed areas. The patient was informed that lentigines are benign pigmented lesions that occur on sun-exposed and sun-damaged skin. No treatment is necessary. Recommended regular use of broad spectrum sunscreen SPF 30 or higher 5. HISTORY OF MALIGNANT NEOPLASM OF SKIN Next Visit: pending biopsy results, 6 months-skin check documented in this encounter [facility] 2025 History of Present illness Narrative Images from the original note were not included. HISTORY OF PRESENT ILLNESS: POST OP PT Oscar Escoto is an 75 y.o. @ male. EST PT 1ST P/O LT KNEE SCOPE (2WKS) 03/01/25 @ [facility] - DOING WELL- NOTES SOME OCCASIONAL DISCOMFORT AT REST OR SLEEPING DEPENDING ON THE POSITION OF HIS KNEE- NO PAIN MEDS- PT IS PLEASED WITH OUTCOME- SUTURES REMOVED WITHOUT DIFFICULTY REVIEW OF SYSTEMS: General: Denies fever, fatigue or weight loss Lungs: Denies SOB Cardio: Denies chest pain GI: Denies indigestion or abdominal pain Neuro: Denies numbness or tingling, denies new onset paralysis Musculoskeletal: ( see note) PHYSICAL EXAM: Left Knee Exam Left knee exam is normal. Tenderness Left knee tenderness location: Compartments soft. Range of Motion The patient has normal left knee ROM. Extension: 0 Flexion: 120 (tightness on terminal flexion) Other Erythema: absent Scars: present (Portals well healing, sutures removed, no erythema, drainge or discharge, no dehisence) Sensation: normal Pulse: present Swelling: mild Effusion: effusion (consistent with surgery) present Comments: Operative lower extremity was noted to be neurovascularly intact. Patient was able to motor feet, toes and ankles in all anatomic planes bilaterally with 5 out of 5 strength. Operative knee's patellar tracking was optimal and quad/ham strength was 5 out of 5 to operative lower extremity. There was no varus valgus, anterior-posterior, or rotatory instability noted to the operative knee. Swelling was well controlled, patella was not ballotable and compartments were soft to the operative lower extremity. Dorsalis pedis and posterior tibial pulses were present and equal bilaterally. There was no evidence of infection or ascending lymphangitis to operative lower extremity. Sensation to light touch was intact to all dermatomes to bilateral lower extremities. Negative Homans and negative Surinder were noted bilaterally to lower extremities. Incision was healing without evidence of infection Physical Exam Results Procedures No orders of the defined types were placed in this encounter. ASSESSMENT: ICD-10-CM 1. Status post arthroscopy of left knee Z98.890 PLAN: Assessment & Plan 2 weeks s/p LT Knee Arthroscopy: Partial medial and lateral menisectomy with chondroplasty of femoral condyle and medial facet patella. I discussed surgery and reviewed surgical images. I recommend no deep squatting or pivoting with operative knee. Continue working on ROM. Follow up in 4 weeks for RCK. Questions answered in laymen terms at the bedside. The diagnosis, home exercise plan and any ongoing restrictions/ recommendations reviewed. If unable to be reached in office, I recommend evaluation at nearest Emergency Room if any symptoms worsened or new symptoms develop for requiring urgent evaluation. 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 documented in this encounter [facility] 03-08-2025 Note [id number] [facility] 03-01-2025 Note [facility] SURGERY Clinical Discharge Summary PERSON INFORMATION Name OSCAR ESCOTO Age 74 Years 1950 Sex MALE Language Citizen Of [place] PCP [place] Marital Status Phone Med Service Ambulatory Surgery Acct# Arrival 03/01/2025 08:45:44 Visit Reason SURGERY - LEFT KNEE ARTHROSOCPY - LATERAL MENISCUS TEAR Acuity LOS 066 02:01 Address: [address] [place] [address] Comment: PROVIDER INFORMATION VITALS INFORMATION Vital Sign [...] every day. Comme (more content not included)... [facility] 02-26-2025 Telephone encounter Note Post op pain rx. PDMP reviewed [facility] 02-26-2025 Miscellaneous Notes Post op pain rx. PDMP reviewed documented in this encounter [facility] 02-02-2025 History of Present illness Narrative Images from the original note were not included. GENERAL HISTORY AND PHYSICAL: NAME: Oscar Escoto : 1950 HISTORY OF PRESENT ILLNESS: Oscar Escoto is an 74 y.o. @ male. Here for surgery instructions H&P LT KNEE SCOPE 03/01/25 @ [facility] PAST MEDICAL HISTORY: Past Medical History: Diagnosis [...] TOE FUSION TONSILLECTOMY TOTAL HIP ARTHROPLASTY Right 2017 SOCIAL HISTORY: Social History Occupational History Not [...] All questions answered and proposed surgery scheduled. LT KNEE SCOPE 03/01/25 @ [facility] PAT 02/02/25 @ 3PM [facility] PAT 02/02/25 @ [facility] Follow up for Post-Op 03/15/25 @ [facility] BEN EARLY. documented in this encounter [facility] 12-25-2024 History of Present illness Narrative Images from the original note were not included. HISTORY OF PRESENT ILLNESS: EST PT Oscar Escoto is an 74 y.o. @ male. (EST PT-PREVIOUSLY SAW MARY LOU DIANE ON 11/30/24) RECHECK (L) KNEE PAIN; HERE FOR MRI RESULTS DONE ON 12/18/24 AT [facility]. XRAY B/L AP WB KNEES 11/09/24 IN [facility] XRAY (L) KNEE 10/07/24 [facility] MRI (L) KNEE 12/18/24 [facility] DEPO MEDROL INJ 11/09/24 - 50% IMPROVEMENT P.T (#5 VISITS 10/20/24- 11/05/24) [facility] KAIN PAIN MGMT 10/07/24 [facility] NO PRESNISONE/MDP [...] requiring urgent evaluation. documented in this encounter [facility] 12-11-2024 Telephone encounter Note Patient called stating that [facility] in [place] did not receive the rx needed prior to MRI being done. Please advise. [facility] 12-11-2024 Miscellaneous Notes Patient called stating that [facility] in [place] did not receive the rx needed prior to MRI being done. Please advise. documented in this encounter [facility] 12-10-2024 Telephone encounter Note Faxed referral, MRI order, office notes and XR report to [facility]. [facility] 12-10-2024 Miscellaneous Notes Faxed referral, MRI order, office notes and XR report to [facility]. Patient called and left that he spoke with [facility]. They received authorization for his MRI. They have not received requested notes so they cannot schedule him until they receive the notes. Please advise. documented in this encounter [facility] 12-10-2024 Telephone encounter Note Patient called and left vm that he spoke with [facility]. They received authorization for his MRI. They have not received requested notes so they cannot schedule him until they receive the notes. Please advise. [facility] 11-30-2024 History of Present illness Narrative Images [...] f/u s/p MRI to be done at [facility]. documented in this encounter [facility] 11-10-2024 Note [place] Electrophysiology Consult Note Reason for visit: Dizziness/SVT [...] years ago here he was admitted to [facility] with A. fib with rapid ventricular [...] 48 hours from 12/24/2021 to 12/10/2021 at [facility] was reviewed by me and shows PVC burden of less than 1% and PVC count of 6%. Occasional nonsustained atrial tachycardia few beats seen but no atrial fibrillation noted. No ventricular tachycardia noted EKG 10/17/2021 shows sinus rhythm with normal intervals Echocardiogram done at [facility] on 09/06/2021 shows ejection fraction of 60% [...] spondylosis without myel (more content not included)... [facility] 11-09-2024 History of Present illness Narrative Associated [...] He has been going to therapy in [facility] with improvement in strength but continues to [...] the left knee done on 10/08/24 at [facility] reveals tricompartmental arthritis, no fractures noted. I [...] he understands this documented in this encounter [facility] 10-29-2024 History of Present illness Narrative Physical [...] and sit to stands at home. Pain: 1-7/10 Objective: PT Evaluation (10/20/2024) Left KNEE AROM: [...] Outcome Measure: Lower Extremity Functional Scale (LEFS): 3180 Rehab Diagnosis: left knee pain and weakness; difficulty walking Short Term Goal: To be met in 2 weeks Goal 1: Pt to be instructed in home exercise program. 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 Date: documented in this encounter [facility] 10-20-2024 History of Present illness Narrative Physical [...] to be instructed in home exercise program. 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 Date: documented in this encounter [facility] 10-12-2024 Hospital Discharge instructions Patient Education 10/12/2024 [...] Follow these instructions at home: Medicines Take tctz-cfl-zijvqqk and prescription medicines only as told by [...] provider. Document Revised: 06/20/2022 Document Reviewed: 06/20/2022 [employer] Patient Education 2023 [employer] Follow Up Care 06/24/2023 16:43:14 With:ESEQUIEL RUSSELL, Natali Gonzalez, URL Address: [facility] [address] , [place] [address]- [phone] When: Unknown Comments:6 mos [facility] Maik 10-12-2024 Note Patient Education Urology Epididymitis [...] these instructions at home: Medicines ??? Take bsye-hsf-dpudsmg and prescription medicines only as told by [...] by your heal (more content not included)... [facility] 10-07-2024 History of Present illness Narrative [facility] [address] [place] [address] Patient: Oscar Escoto Sex: male : 1950 [...] Impairment. Past Medical History: Diagnosis Date Afib ([facility]) Back pain lumbar BPH (benign prostatic hyperplasia) Cancer ([facility]) multiple basal cell Chronic pain disorder Hip [...] 02/08/2023 Performed by Umair Decker MD at [facility] BURSA LARGE JOINT: left ischial bursa Left 08/16/2023 Performed by Umair Decker MD at [facility] INJECTION LARGE JOINT BURSA Right 04/12/2017 Performed by Umair Decker MD at [facility] MEDIAL BRANCH NERVE BLOCK: right [id number] 51mbb Right 08/12/2020 Performed by Umair Decker MD at [facility] INSERTION LOOP RECORDER 01/24/2023 Dr Amin at [facility] [place] JOINT REPLACEMENT right hip ORTHOPEDIC SURGERY Left 2013 wrist fixation RADIO FREQUENCY ABLATION: right [id number] Right 09/23/2020 Performed by Umair Decker MD at [facility] REPAIR HERNIA INGUINAL WITH MESH Right 09/23/2018 Performed by Ventura Watson DO at [facility] REPAIR HERNIA UMBILICAL WITH MESH N/A 09/23/2018 Performed by Ventura Watson DO at [facility] REPLACEMENT TOTAL JOINT ANTERIOR SUPINE INTERMUSCULAR HIP Right 07/10/2017 Performed by Schuyler Ambrocio MD at [facility] TONSILLECTOMY WRIST SURGERY No Known Allergies Family [...] Resource Strain: Low Risk (02/03/2024) Received from [facility] Overall Financial Resource Strain (CARDIA) Difficulty of Paying Living Expenses: Not hard at all Food Insecurity: No Food Insecurity (10/07/2024) Hunger Screening Food Insecurity - Worry: Never True Food Insecurity - Inability: Never True Transportation Needs: No Transportation Needs (02/03/2024) Received from [facility] PRAPARE - Transportation Lack of Transportation (Medical): No Lack of Transportation (Non-Medical): No Physical Activity: Sufficiently Active (02/03/2024) Received from [facility] Exercise Vital Sign Days of Exercise per Week: 3 days Minutes of Exercise per Session: 60 min Stress: No Stress Concern Present (02/03/2024) [facility] [employer] [facility] Occupational Health - Occupational Stress Questionnaire Feeling of Stress : Not at all Social Connections: Moderately Integrated (02/03/2024) Received from [facility] Social Connection and Isolation Panel [NHANES] Frequency of Communication with Friends and Family: Once a week Frequency of Social Gatherings with Friends and Family: Once a week Attends Spiritism Services: More than 4 times per year Active Member of Clubs or Organizations: Yes Attends Club or Organization Meetings: More than 4 times per year Marital Status: Interpersonal Safety: Unknown (01/16/2024) Received from [facility] [place] Safety & Environment Fear of Current or Ex-Partner: Not on file Emotionally Abused: Not on file Physically Abused: Not on file Sexually Abused: Not on file Physically or Sexually Abused: Not on file Housing Instability: Low Risk (02/03/2024) Received from [facility] Housing Stability Vital Sign Unable to Pay [...] PA-C 10/07/24 1437 documented in this encounter [facility] 08-13-2024 History of Present illness Narrative [...] Scalp (5), Right Anterior Neck, Right Mid [place], Right Parotid Area, Right Posterior Neck, Right Preauricular Area, Right Superior [place], Right Evangelical, Right Temporal Scalp Erythematous scaly papules Patient [...] limited to risks of scarring, 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 [...] Scalp (5), Right Anterior Neck, Right Mid [place], Right Parotid Area, Right Posterior Neck, Right Preauricular Area, Right Superior [place], Right Evangelical, Right Temporal Scalp 6. History of basal [...] months skin check documented in this encounter [facility] 06-09-2024 Note [facility] Electrophysiology Consult Note Reason [...] years ago here he was admitted to [facility] with A. fib with rapid ventricular [...] 48 hours from 12/24/2021 to 12/10/2021 at [facility] was reviewed by me and shows PVC burden of less than 1% and PVC count of 6%. Occasional nonsustained atrial tachycardia few beats seen but no atrial fibrillation noted. No ventricular tachycardia noted EKG 10/17/2021 shows sinus rhythm with normal intervals Echocardiogram done at [facility] on 09/06/2021 shows ejection fraction of 60% [...] apnea Varicocele Epididymitis (more content not included)... [facility] 03-17-2024 Note Patient here for fol low up EP study and ablation. He went into afib during procedure and was started on Xarelto. Denies chest pain, SOB, lightheadedness, and bleeding on Xarelto. Says his palpitations have subsided. Review of Systems Musculoskeletal: Positive for arthritis and joint pain. All other systems reviewed and are negative. [facility] 03-17-2024 Note Cardiovascular Medic [facility] SUBJECTIVE Chief Complaint Patient presents with Atrial Fibrillation Oscar Escoto is a 74 y.o. male here [...] episode of global amnesia driving back from [place] in early January, - this was prior [...] Final Atrial Rate 02/12/2024 61 BPM Final [place]Y Interval 02/12/2024 184 ms Final QRS DURATION 02/12/2024 102 ms Final QT Interval 02/12/2024 424 ms Final QTC CALCULATION(BAZETT) 02/12/2024 426 ms Final P Wyalusing 02/12/2024 39 degrees Final R-Wyalusing 02/12/2024 -11 degrees Final T Wave Wyalusing 02/12/2024 44 degrees Final Ventricular Rate 02/12/2024 55 BPM Final Atrial Rate 02/12/2024 55 BPM Final WY Interval 02/12/2024 198 ms Final QRS DURATION 02/12/2024 104 ms Final QT Interval 02/12/2024 470 ms Final QTC CALCULATION(BAZETT) 02/12/2024 449 ms Final P Wyalusing 02/12/2024 34 degrees Final R-Wyalusing (more content not included)... [facility] 06-24-2023 Hospital Discharge instructions Patient Education 06/24/2023 [...] urethra. Follow these instructions at home: Take osga-dbo-rdzwalh and prescription medicines only as told by [...] provider. Document Revised: 05/30/2022 Document Reviewed: 05/30/2022 [employer] Patient Education 2022 [employer]. Follow Up Care 05/07/2022 15:53:47 With:ESEQUIEL RUSSELL, Natali Gonzalez, URL Address: [facility] [address] , [place] [address] [phone] When: Unknown Comments:1 yr w/ PSA [facility] 12-18-2022 Note PROCEDURE: XR FOOT L [...] by: MARÍA BRYSON Date: 2022-12-18 09:32 [facility] 11-06-2022 Note PROCEDURE: XR FOOT L [...] authenticated by: RAZ MATOS Date: 2022-11-06 15:27 [facility] 10-17-2022 Note PROCEDURE: XR FOOT [...] by: RAZ MATOS Date: 2022-10-17 10:46 [facility] 09-27-2022 Note PROCEDURE: XR FOOT L [...] by: MARÍA BRYSON Date: 2022-09-27 18:29 [facility] 05-15-2022 Note PROCEDURE: XR FOOT R [...] authenticated by: MARÍA BRYSON Date: 2022-05-15 21:39 [facility] 05-07-2022 Hospital Discharge instructions Patient Education 05/07/2022 [...] 11/11/2006 Document Revised: 07/31/2019 Document Reviewed: 10/11/2017 [employer] Patient Education 2020 [employer] 05/07/2022 15:46:01 Benign Prostatic Hyperplasia Benign Prostatic [...] urethra. Follow these instructions at home: Take oogf-fye-nhlplku and prescription medicines only as told by [...] 11/11/2006 Document Revised: 10/06/2019 Document Reviewed: 12/16/2017 [employer] Patient Education 2020 [employer]. Follow Up Care 09/04/2021 16:41:31 With:ESEQUIEL RUSSELL, TEX Gonzalez Address: [facility] [address] , [place] [address]- [phone] When:Within 1 Year(s) Comments:f/u in 1 year with PSA and NAIMA [facility] Evaluation + Plan note Future Appointments Appointment Date:05/13/2023 03:00:00 PM Scheduled Provider:Natali IRAHETA MD Location:[facility] Appointment Type:URO Office Visit Diagnostic Tests PendingPSA Total 05/07/22 [facility] Evaluation + Plan note Future Appointments Appointment Date:06/29/2024 03:00:00 PM Scheduled Provider:Natali IRAHETA MD Location:[facility] Appointment Type:URO Office Visit Diagnostic Tests PendingPSA Total 06/24/23 [facility] Evaluation + Plan note Future Appointments Appointment Date:04/12/2025 01:15:00 PM Scheduled Provider:Natali IRAHETA MD Location:[facility] Appointment Type:URO Office Visit Diagnostic Tests PendingPSA Total 10/12/24 [facility] Evaluation note No assessment inform ation available [facility] Work Phone: Evaluation note Diagnosis Transient [...] legs syndrome (RLS) [facility] Diagnosis Medicare annual wellness visit, [...] in [facility]* Diagnosis Left knee pain, unspecified chronicity- Primary [facility] Diagnosis Medicare annual wellness visit, subsequent- Primary Dyslipidemia (CMS/HCC) Other and unspecified hyperlipidemia Encounter for long-term (current) use of medications Encounter for long-term (current) use of other medications Prediabetes Other abnormal glucose Screening PSA (prostate specific antigen) Special screening for malignant neoplasm of prostate Obesity (BMI 30-39.9) Pre-op examination- Primary [facility] Diagnosis Medicare annual wellness visit, subsequent- Primary Dyslipidemia (CMS/HCC) Other and unspecified hyperlipidemia Encounter for long-term (current) use of medications Encounter for long-term (current) use of other medications Prediabetes Other abnormal glucose Screening PSA (prostate specific antigen) Special screening for malignant neoplasm of prostate Obesity (BMI 30-39.9) Internal derangement of left knee- Primary [facility] Diagnosis Medicare annual wellness visit, subsequent- Primary Dyslipidemia (CMS/HCC) Other and unspecified hyperlipidemia Encounter for long-term (current) use of medications Encounter for long-term (current) use of other medications Prediabetes Other abnormal glucose Screening PSA (prostate specific antigen) Special screening for malignant neoplasm of prostate Obesity (BMI 30-39.9) Status post arthroscopy of left knee- Primary Other postprocedural status documented in this encounter [facility]* Diagnosis Medicare annual wellness visit, subsequent- Primary Dyslipidemia (CMS/HCC) Other and unspecified hyperlipidemia Encounter for long-term (current) use of medications Encounter for long-term (current) use of other medications Prediabetes Other abnormal glucose Screening PSA (prostate specific antigen) Special screening for malignant neoplasm of prostate Obesity (BMI 30-39.9) Seborrheic keratosis- Primary Actinic keratosis Neoplasm of unspecified behavior of bone, soft tissue, and skin Lentigines History of malignant neoplasm of skin Personal history of other malignant neoplasm of skin documented in this encounter [facility]* Diagnosis Medicare annual wellness visit, subsequent- Primary Dyslipidemia (CMS/HCC) Other and unspecified hyperlipidemia Encounter for long-term (current) use of medications Encounter for long-term (current) use of other medications Prediabetes Other abnormal glucose Screening PSA (prostate specific antigen) Special screening for malignant neoplasm of prostate Obesity (BMI 30-39.9) Medicare annual wellness visit, subsequent- Primary Prediabetes Other abnormal glucose Dyslipidemia (CMS/HCC) Other and unspecified hyperlipidemia Encounter for long-term (current) use of medications Encounter for long-term (current) use of other medications Screening PSA (prostate specific antigen) Special screening for malignant neoplasm of prostate Paroxysmal atrial fibrillation (CMS/HCC) Atrial fibrillation documented in this encounter [facility] Narrative No data available for this section [facility] InstructionsNot on filedocumented in this encounter [facility] [employer] note No data available for this section [facility] reason for referral (narrative)* Clinic-Administered Medication (Routine) - Closed Specialty Diagnoses / Procedures Referred By Contac t Referred To Contact Orthopaedic Surgery Procedures L Inj/Asp: L knee Mary Lou Diane, NAHEED [address] [address] Phone: tel: fax: Referral ID Status Reason Start Date Expiration Date Visits Re quested Visits Authorized [id number] Closed 11/09/2024 05/08/2025 1 1 [facility]* Rehabilitation - Outpatient (Routine) - Authorized Specialty Diagnoses / Procedures Referred By Contchristoph t Referred To Contact Physical Therapy Diagnoses Pain in left knee Procedures [place] PHYSICAL THERAPY EVALUATION LOW COMPLEX 20 MINS [place] OFFICE/OUTPATIENT NEW HIGH Cecilia Sanchez MD [address] [place] [address] Phone: tel: fax: Yenny Rowe PT Referral ID Status Reason Start Date Expiration Date V isits Requested Visits Authorized [id number] Authorized 10/20/2024 04/18/2025 99 99 [facility] HealthcareReason for visit Narrative* Rehabilitation - Outpatient (Routine) - Authorized Specialty Diagnoses / Procedures Referred By Contchristoph t Referred To Contact Physical Therapy Diagnoses Pain in left knee Procedures [place] PHYSICAL THERAPY EVALUATION LOW COMPLEX 20 MINS [place] OFFICE/OUTPATIENT NEW HIGH Cecilia Sanchez MD [address] [place] [address] Phone: tel: fax: Yenny Rowe, EM Referral ID Status Reason Start Date Expiration Date V isits Requested Visits Authorized [id number] Authorized 10/20/2024 11/24/2024 99 99 [facility] Chief Complaint and Reason for Visit [...] Status: Inactive Member Role Status Dates Sakina Carpenter MD Attending Provider Active Channel Marketing Program Manager Relationship Specialty Start Date End Date North Chapin MD [address] [place] [address] PCP - General Family Medicine 02/04/24 North Chapin MD [address] [place] [address] PCP - [employer] 02/24/24 Channel Marketing Program Manager Relationship Specialty Start Date End Date North Chapin MD [address] [place] [address] PCP - General Family Medicine 02/04/24 North Chapin MD [address] [place] [address] PCP - [employer] 02/24/24 Channel Marketing Program Manager Relationship Specialty Start Date End Date North Chapin MD [address] [place] [address] PCP - General Family Medicine 02/04/24 North Chapin MD [address] [place] [address] PCP - [employer] 02/24/24 Channel Marketing Program Manager Relationship Specialty Start Date End Date North Chapin MD [address] [place] [address] PCP - General Family Medicine 02/04/24 North Chapin MD [address] [place] [address] PCP - [employer] 02/24/24 Channel Marketing Program Manager Relationship Specialty Start Date End Date North Chapin MD [address] [place] [address] PCP - General Family Medicine 02/04/24 North Chapin MD [address] [place] [address] PCP - [employer] 02/24/24 Channel Marketing Program Manager Relationship Specialty Start Date End Date North Chapin MD [address] [place] [address] PCP - General Family Medicine 02/04/24 North Chapin MD [address] [place] [address] PCP - [employer] 02/24/24 Channel Marketing Program Manager Relationship Specialty Start Date End Date North Chapin MD [address] [place] [address] PCP - General Family Medicine 02/04/24 North Chapin MD [address] [place] [address] PCP - [employer] 02/24/24 Channel Marketing Program Manager Relationship Specialty Start Date End Date North Chapin MD [address] [place] [address] PCP - General Family Medicine 02/04/24 North Chapin MD [address] [place] [address] PCP - [employer] 02/24/24 Channel Marketing Program Manager Relationship Specialty Start Date End Date North Chapin MD [address] [place] [address] PCP - General Family Medicine 02/04/24 North Chapin MD [address] [place] [address] PCP - [employer] 02/24/24 Channel Marketing Program Manager Relationship Specialty Start Date End Date North Chapin MD [address] [place] [address] PCP - General Family Medicine 02/04/24 North Chapin MD [address] [place] [address] PCP - [employer] 02/24/24 Channel Marketing Program Manager Relationship Specialty Start Date End Date North Chapin MD [address] [place] [address] PCP - General Family Medicine 02/04/24 North Chapin MD [address] [place] [address] PCP - [employer] 02/24/24 Channel Marketing Program Manager Relationship Specialty Start Date End Date North Chapin MD [address] [place] [address] PCP - General Family Medicine 02/04/24 North Chapin MD [address] [place] [address] PCP - [employer] 02/24/24 Channel Marketing Program Manager Relationship Specialty Start Date End Date North Chapin MD [address] [place] [address] PCP - [facility] 02/04/24 North Chapin MD [address] [place] [address] PCP - [employer] 02/24/24 Channel Marketing Program Manager Relationship Specialty Start Date End Date North Chapin MD [address] [place] [address] PCP - General Family [facility] 02/04/24 North Chapin MD [address] [place] [address] PCP - [employer] 02/24/24 Channel Marketing Program Manager Relationship Specialty Start Date End Date North Chapin MD [address] [place] [address] PCP - [facility] 02/04/24 North Chapin MD [address] [place] [address] PCP - [employer] 02/24/24 Channel Marketing Program Manager Relationship Specialty Start Date End Date North Chapin MD [address] [place] [address] PCP - General Family Medicine 02/04/24 North Chapin MD [address] [place] [address] PCP - [employer] 02/24/24 Channel Marketing Program Manager Relationship Specialty Start Date End Date North Chapin MD [address] [place] [address] PCP - General Family Medicine 02/04/24 North Chapin MD [address] [place] [address] PCP - [employer] 02/24/24 Channel Marketing Program Manager Relationship Specialty Start Date End Date North Chapin MD [address] [place] [address] PCP - General Family Medicine 10/07/24 Channel Marketing Program Manager Relationship Specialty Start Date End Date North Chapin MD [address] [place] [address] PCP - General Family Medicine 02/04/24 North Chapin MD [address] [place] [address] PCP - [employer] 02/24/24 Channel Marketing Program Manager Relationship Specialty Start Date End Date North Chapin MD [address] [place] [address] PCP - General Family Medicine 02/04/24 North Chapin MD [address] [place] [address] PCP - [employer] 02/24/24 Channel Marketing Program Manager Relationship Specialty Start Date End Date North Chapin MD [address] [place] [address] PCP - General Family Medicine 02/04/24 North Chapin MD [address] [place] [address] PCP - [employer] 02/24/24 Goals (unrecognized section and content) Goals may be documented in a n alternate section (unrecognized sect ion and content) No Status Records FoundNo Status Records FoundNo Status Records FoundNo Status Records FoundNo Status Records FoundNo Status Records FoundNo Status Records Found INFORMATION SOURCE (unrecogn ized section and content) DATE CREATED AUTHOR 03/24/2023 [facility] DATE CREATED AUTHOR AUTHOR'S ORGANIZ ATION 04/10/2023 [facility] DATE CREATED AUTHOR AUTHOR'S ORGANIZ ATION 10/09/2024 [facility] DATE CREATED AUTHOR AUTHOR'S ORGANIZ ATION 10/15/2024 [facility] DATE CREATED AUTHOR AUTHOR'S ORGANIZ ATION 03/06/2025 [facility] DATE CREATED AUTHOR AUTHOR'S ORGANIZ ATION 04/01/2025 [facility] EPIC DATE CREATED AUTHOR AUTHOR'S ORGANIZ ATION 04/02/2025 [facility] Reason for Visit (unrecogniz ed section and content) Reason Comments Pain Reason Comments Follow-up Reason Comments Med Refill Reason Onset Date Comments MRI 12/10/2024 Reason Onset Date Comments RX 12/11/2024 Reason Comments Follow-up Reason Comments Knee Pain Reason Comments Pre-op Exam Reason Comments Pain Reason Comments Medicare Annual Wellness Visit Subsequen t WellnessSleeping medication FOR RECORDS PERTAINING TO PATIENTS WHO ARE [...] BE BASED ON THE PRIMARY CLINICAL RECORDS. [facility]. provides no warranty or guarantee of the accuracy or completeness of information in this document.
[2025-04-03 09:48] LABS: Prostate Specific Antigen Dx 0.39 ng/mL (<=4.00)
== END 2025-04-03 08:30 | disposition home or self-care (01) ==
PROVIDERS: PCP Family Medicine; Visit Provider Urology
DX: N40.1 Benign prostatic hyperplasia with lower urinary tract symptoms (principal)
CPT/HCPCS: 36415; 84153

== ENCOUNTER 2025-04-03 08:31 | Outpatient (OUT) | payer MEDICARE, SELFPAY ==
--- OUTSIDE RECORDS SUMMARY | 2025-04-03 08:34 | XMS_ITS | CCD ---
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 Name Role Phone [place] Primary Care Physician [phone] DO Miguel Astorga Attending Provider [phone] MD [place] Primary Care Provider Miguel [...] Unavailable Tavares RUSSELL, North Primary Care Provider Tavares RUSSELL, North Unavailable [place] MD Primary Care Provider [phone] ROXANNE AMIN Referring Unavailable BRENNAN, ROXANNE Referring Unavailable SOLEDAD BOWMAN Attending Unavailable BRENNAN, ROXANNE Referring Unavailable BRENNAN, ROXANNE Referring Unavailable BRENNAN, ROXANNE Referring Unavailable BRNENAN, ROXANNE Referring Unavailable CYN, LOYD Referring Unavailable [...] every six hours for pain HYDROcodone-acetami nophen ([place]) 5-325 MG tablet Indications: Internal derangement of [...] day(s), # 60 tab(s), Refills(s) 0, Pharmacy: [id number], 189, cm, 10/12/24 15:38:00 [...] End: 12-26-2024 doxepin (SINEquan) 50 MG cap valod Indications: Anxiety disorder, unspecified type TAKE 1 CAPSULE AT BEDTIME 90 capsule 3 12/07/2024 Active [facility] (3 sources) Start: 04-19-2022 take 1 capsule by mo [facility] once daily [facility] Active 1 CAP [...] relations, # 30 tab(s), Refills(s) 2, Pharmacy: [id number], 189, cm, 05/07/22 14:58:00 EDT, Height/Length Dosing, 129, kg, 05/07/22 14:58:00 EDT, Weight Dosing Start Date: 05/07/22 Status: Ordered tadalafil 20 mg oral tablet (2 sources) Phosphodiesterase 5 Inhibitor Start: 06-24-2023 take 1 tablet by mouth once daily Cialis 20 mg Tab 20 mg = 1 tab(s), Oral, Daily, # 39 tab(s), Refills(s) 2, Pharmacy: [id number], 189, cm, 05/07/22 14:58:00 EDT, Height/Length Dosing, 107, kg, 06/24/23 15:49:00 EDT, Weight Dosing Start Date: 06/24/23 Status: Ordered tamsulosin hydrochloride 0.4 mg oral capsule (20 sources) alpha-Adrenergic Neeta Start: 04-06-2022 take 1 capsule by mouth once daily Flomax 0.4 mg Cap 0.4 mg = 1 cap(s), Oral, Daily, # 90 cap(s), Refills(s) 3, Pharmacy: [facility], 189, cm, 08/26/23 11:12:00 EDT, Height/Length Dosing, 107, kg, 06/24/23 15:49:00 EDT, Weight Dosing Start Date: 03/23/24 Status: Ordered take 1 capsule by 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) drug therapy] Onset: 03-17-2024 03-17-2024 Episodic [...] Onset: 12-06-2022 Episodic Other aftercare (1 source) correction (current) use of aspirin; Translations: [SNF CURRENT USE OF ASPIRIN] Onset: 12-10-2022 Episodic [...] Coding Summaryon 03-30-2025 Coding Summary HTMLBase 64 KraatuhgUQs4vUe+PGhlYW Q+DN0KTTBhR23ntSQefR6z R1EOOUqBLoeoSQCTLFvLBs XxgyExRN5daZUgWMBu IC8+BL0iYJFfIbakgKEye5 M1vUN8E59xba5hIRmnnAC9 ONUwMuCndbfio0kxdTb7QX cuNmluOyBt RBTzlI75UEZ0bX32No36nW PybVFsk7zcuFy3ZtTbOQOy CEN1eOadZHmja8KwSNNmM1 9weQQji3O2 JUOpgNniyHVfXkNokMG1zM 0rJHvolwscw3xwniutZzd0 tt73yURkl8R8iAB9P7Fbfm K9AHNtyWNu KaffzYJEzV0tsafxi1uevl pmMjViUMYuXKi5QOf5GREf lFsrRhUrWE61DYD4LFTtmz IiV5DcHYVi eLbyJeZ3l8F9Wz1VO0KWMn wiU5QNXKAWLTumsIU+PC90 tx34F4ImPywcAcn4UBVaBK W8nAY4zC7c LYFsIWzie3N1aRN0M5Pipe Iqbo8be5uhIDOnUHbnN34d qSUxl3H2EFVzlIN9EUWuwV xmJqQcyS29 Oyc+KGCyuPofv4EbAbjag5 aqq8xmwFm7AtazRGVnczIp iQwbVQF8r1BaSk3iKLGidA X2rVD1xA6e WxGiLyU3PMjuA669HxVkjA HnFaqtU54kP5OocIS+PHRy Jzy8XNNalPokMY1eK0UcHS RpbmctbGVm oMlmUZ4jTXOplfpxBJUruO 8xFBZlY8p9DqExCcY4VQke U1BgOVAmioddXd25dV0lBa HlKeO7FLmi B8XslfU6MCVzsJEiEAelWG A2Z26uz3N3XORnAQTvYPV5 tSN1oB6luDqbvrpvbMRdcQ sgdmVydGlj OEdkNYynN748QDUuoNjyUd NvZGluZyBEYXRlOiAgMDUv MDYvMjAyNTwvdGQ+PHRkIH R3mAbaONDc bQUcVHsuLw4kkUxlbTuxUA 3hHTXjquxsYIVvrD0jIFUz nFVuyDfdGK8cKKDuvkmwo1 26UmOcLYZ7 JJLheZQeV8InlR7sHgHcMO PqDBWuQ7BilKIzIWzzU909 DFshUrC9WMLkivZiA3OeFV FsaWduOiB0 c4F4Ou9Vm1ZwumohA8NauY BvDtSlDlcbHCh9O5PcHgar dHI+RY81FRRwBR84QZr3JK G9rLhlRWra HAIcI1InhJ4zLdYuGQVcTI RkOyc+PHRhYmxlIHdpZHRo KUgyZHFkTzItjPpkOH8vUf 9yZGVyLWNv fKbyuYMeRxDkk7ykOQTgYK ksSY5dwYrtA2LkeQN3ICYg c0j6Fk42O90zZ7UuqGC+PG EkaLB6aEC0 uQ6vZnGwQbN3CKdsX290Cb FpoWPqKsubi5ntp0mprGx6 BdB0KWYwtbBnxDcqILO7c0 CsSc23I14h IHdpZHRoPSIxNSUiIHZhbG zeno1pqG5zVd8+PGNvbCB3 aHF3kH0nOkIjMzH9OXzaQ9 49InRvcCIv Veptp1jsf7nfvGh8FrJaYB TawkPcjDzrHDL4q1SiQj68 I2PdbQxti0ZiYle6eb64bH Wlf6T7bXE6 V2IlXJNbqnndeYAdkBwuMH 2zHLQgfqysFXKfiN5wWEHr F1v5TtLoAyJ5ZCgdJ3Yurp V3ASJwfAFp QHBvoDPLjU4osrgxc0wwge hhUkQqROHrCJf5ASa4EETs tZhiRmCoAVV5NzK1KBS5zD DgxR9jdCfj tmfjwL1aGzl+RLK1pKBegP DQAE8hGxiheMU+PHRkIHN0 nXtmYDjzQGNnkT8lKIVpH4 f0FfAaGxQ7 GJwoI0QwhkS6FCQeyXCiKF IjwNHQvJ3sbgdka6nsawri FwFvHMFwHTv5ZRm4DSLslW duOiBsZWZ0 HhA9DYW8cYGddV3oiWrnkg ockH9aNvt+QmlydGggRGF0 BYz1Y1SpGeb4ZLEeeFbzDT 0ncGFkZGlu Pz2gmPpjbThjTZ7fXEClfb ghh067QzOvk3sbTPFtvCMu FAxmDNM1Z23ne5Y5MYJiRX DwNXK1jYH1 tF8udDyamvgwvGMmwNoric FpaQvgSZdvSTcwI535EEKn gNjxAyGzSMg2H6JfBmm8YW IyuShrNV5n lHEwOUvzUz2tmKspgZdzAN 1dIDFcexqho002AyNss7se OYVrgMAuPKegDLB7W56vy5 A1TBCgDPDa SII6kGZ1oX4zvBeijsnraH VmdDsgdmVydGljYWwtYWxp B565CXBrkMooIvQpdVu0H5 ZnUle7CFRy rYzmTR1yjOXaOBpmQx6gdF thsLqfFW3lNZTdbrrqc942 WaRzl1hyFUZbeMTuJTkxTH B7E45rf9R5 JJZxEERjYIK2iAR0eE1vrN lnbjogbGVmdDsgdmVydGlj LTofPPoqL985PYLfxWjxMe BhdGllbnQg LTryTMy1L0VhIprmyWS+PC 14FBJcZQ05rSJihUDkz5kx kHi0HuZqFXFzVBJ3kAhaMN sjz9ViSYZp I20akSVnx6H6MGUihSthoI PfTbExyIX1jI8vUSsetcru m3poyxgyEhiau2qcgi52qD 62Q08mFLcx ZHRoPSIzMCUiIHZhbGlnbj 9svW3uWr6+KZOjtIG2oQF4 jA3hEZGgIhX8QGxtD239Ix RvcCIvPjxj t7bjb0mryPw1HdF9MKDklh HecMniOLR9h8IsLn24L63m IHdpZHRoPSIyMCUiIHZhbG ntqf3cdC9w Ii8+CKBnwPD9fCQ1lI9rZx BnDzV2VGjcC861TcQcuFUn ZnjtW90pS7PquDF+PHRyPj r5ROHyeOaa EW8hmJNnRSgtJn1xQAJ7Qo CvPaXbXMlcY2OoKLRxtamg biirqRT7ZGAdTJNfhZ65Rr 9udDogMTBw pIIVlY7ssxipa4weojpjHn GlJXGySWv5WPs5HPQozLyz PgGvBAN9LxG9RSQ6jHOjnV 1hbGlnbjog mN1lD7EjELTysuviNp53kX 4vCjPzBkX4FLijLkt+TUNN YKNJVNEtDKTTFA0DOWGHAY xFTjwvdGQ+ MYGeBCP5hXxmFHfrHFBmzU 2vQIVzC1l1LbYoZmV3YOto Z0RgAGAhsdfnXx05yR9sGv ZuAxT9DHxa C1CtnrB9BNDsnPJwAPptFL O0H93ug7Z5KCOsLBZvECL5 bXW7dG5inKvweblltGGufH sgdmVydGlj UVhmOWdmB401DNJnrXlaUv O4LgAlGeM8XLX8L6IxEqy1 QXEeeQruZC1pjYTpORrjLv 1yaWdodDog VO6rEEOzvjxrWBDemC4xIX KjkWGrbGseHR7qGFFyobzq w346MgZnQOZ5LQAjmBFnX6 LbrI7sBdIw PUPcUUDfU6XuuZJwFWogN3 79FCbuGbQ9QVMfggFdV4En ZVGddNifDfI4i9P0Bs59Qz BZZWFyczwv dGQ+IVNrMLV2wZehXQamOE ZsyH8zIRPgA9k2QjVzErJ2 BSruT3NwPMLzukvqXh22uB 1dYgHkByR2 BQoyE8LipjQ5EZDuuRAeFP abFKH2A03rw5F4XUHhVALs XBI0jPH7tX9noUohzgwcvG VmdDsgdmVy uTdfYHfoFCbqD674KYUcfY ezCb0ZBLE5V8TxQpa9QJGx jPpeZU3woYDuOGdxQq8ohK gycQnkTL4u STUmbenjVGSrdB3yFBOioU WjySohMQ4uCXJnkjbir549 AdTsRQJ3IMGzxBYsC0BgrW 9yOiAjMDAw FWOwW7XjyPVnVSsoB697MM vbEeK5MPSfkkNsG0UfSZSv yDvwYsT6a2G5Iw7OJNryY9 EjN0GeePwh dGQ+TT77si11S8IyTckuAd u3WALgMIS3uKN1xD1bJZRr WHcup2B0vKC2I5QzuwNdwf 5hy4pjFNIt ZAjhZ30ymMEum8D3VDNtjR U4ZXPbwCntAiHktP70Oxb+ FOUpuNclq0MeZdmdd8lar3 eoxCd9RtBx CIMwdpWpsFgyMIM2j7GzWr 36A49jZOxmUBZlAEVhWMHz JKThfItord4xeI4mLz3+PG WgdON7pYB0 wU5eTrNtOtP6VVblW341Zv EutBQoVleat7lsr4qsePx6 JuPvFPJzbyZbtKokVJJ9u4 OiDc89M8Wk rOkcc7FsZgq6pt97uOFfz7 A4aHS4S9UuRTGziccjxTYb xWuhYX8eYSTzvdosFUXaqQ 3gSLXxH7n3 VpArIrD8JMvbU5WmgmG0OP OjkATeQWJugIGWhE7xaaqw x9isieocRmCcRMYgKKg0GS x6QRQniWtk IrMoXPA6HqD7WSK0fVUfcZ 6cyAgxuhiyjS9fLha+UGh5 u7fvaJXrWN9ctTW3OJ85NG 08sYGkk9G6 xHH9K7OpCUSbhobaffihvD Y3OLUgCAPmhA79Wb2eiPqv Oq6wUCNiIWC3PUSchSBlT1 AobK9eDsMb UTYuBZCvF9EvvPFfULpmS8 89IUybOnV2SUSlxuRzG4Qj YNKcjGghFiI5l9K3Qa6XDK 96CV96VE07 ySNym6O7mVY8C6AoBUOeya gsxxbnnJQ0RTQkCSUipR58 Wm1udTozMn6uZNAxEHD4RM UwaHTvG6Wn jS9bOyUfSMEsRXGrW1CxqP LvYEvbD813RVvmPdT6NXPv lwLqH1KpWOSlrUbtIqE3g9 D6Vt3ASb72 QW57VY84hGMmp4K0yNZ6M9 IxEZMerdsbyoqvmUF1QCSd ZOGatP86Te1yhTpuEz2kBX JlEPC1OSCx yTGmF7CfeO6tHsEsACYpSW UrB4PmkEBnPLjgE764QLzl CuT6AHQbizTlI7FlNLYnrR tjGjA4o1K6 Df4CLTvhtqz7C6IfGdkovC I+XR07UNXcZS80bQJuaTYa k9uypWl2VrRhTSEiRTX4eI wmNGvfz5Ag ZXI (more content not included)... [facility] No Panel Informationon 03-24 Type of biopsy: [...] taken Amount of lidocaine used: 1.5 cc [facility] [employer] Type of biopsy: tangential Informed consent: discussed [...] taken Amount of lidocaine used: 1 cc [facility] [employer] Type of biopsy: tangential Informed consent: discussed [...] taken Amount of lidocaine used: 3 cc [facility] Coding Summaryon 03-17-2025 Coding Summary HTMLBase 64 NnncrcljCPa2aFc+PGhlYW Q+HL4KYPIjJ39ivSPpmY2e Z5DCZGcZIjwvCTXDBBxPZw QxkxNfWN9ozAKoFKQz IC8+JO7eLHYnRwgzqSIhf0 R9eOM4O44mnf6eSIjveZT2 PWXvAmNbndzrb0amzGa4US cuNmluOyBt OEHjeS82OPN1bD66Co39oW HlsDNdr3ijeYw0KyYkMCKi KTV5tDnjPMdcq0DyVSSoZ7 4vlVFdn7W6 QMAxmWjhlHXmMhApsUM2wQ 6wZMizsafop2jrmlksMjx9 xn37cPOtx1L7yBB7E7Bdlb X8XUTmhCRq BgyioNCIcW2wbzzwj4qxow bnSqGwWUYtGEi0DKi8TDOk lFceZeVjNR61NRC1YFFdey WtF7LqFXMb rEbkTyJ2z6N3Bp4IO3FVQm xwY3IMQDYWPRyvdWQ+PC90 vw45T3ZaMxoiGwd2LUAzBU U6oCR7jD3z VDWlCCrxl7T5uEG7L3Bxlc Jwwl8hf7zpZUGiISsfL06y tOYqm3X6IHOygPM3PXRbjP ueDfCkpA25 Oyc+VADmqMcsj0EjZacwv9 jvx0hrkXh7SpnzQFZfwbRn dScjFQT1q0VeYe0cGODktZ G0kCJ5iG2p KdYgRwY0PMumN836EyTqkA TbDiqfL61tD8SddNF+PHRy Ygq1ZWLdyHyzLC8kK2StDA RpbmctbGVm fSuvJA0xSJLprvlwEDRjoR 9eTMJlL5p7BlVbZzN9ISen Y4PjQAHfehbsXj07qH8yCn DwTcZ1ZQzc A0KzafA7MKBcgAHgPVmrFT N6O94fg0N0GSRrZUSyJHO8 sIC6gX6bvFmqghxriTDgxF sgdmVydGlj KItaQTebU480PSGugGxaHy NvZGluZyBEYXRlOiAgMDQv MjMvMjAyNTwvdGQ+PHRkIH N5vZsbKNNo qAFtCXeaTs1fnFplwKzuZQ 5sHVKyyhwnKVCnuV1tYDVb xZPruZvuMD2rPAMrzmklm7 61MaOpPZF3 ZVLxdKByD3DniC3xIeMpTD RuPNAoV2JmgJFvXLuvH184 HLpcTfT2OXAgkdOuB2UjBI FsaWduOiB0 a1J0Uf4Xd3NjkxnxE9OkmF LnEcXlDogsUSc1V0KpQedr dHI+LA33QMVhMY56RVo7GD H9oVnfTIbq OUZvG1UumU3kDrVfFPStDU RkOyc+PHRhYmxlIHdpZHRo HZuxVYUvTvQfaXnzKB3tZj 9yZGVyLWNv xOzwyEGaQaZyu1mxVUZoJT wpKH4pfCqaR5RskNM5TUAh i9k2Da37B40cW1EkyVD+PG YewGC1vIQ8 dZ9eJgLiAqI2BLlpC750Ly TxeLZcLyclq7rif1yyxZn9 QuM5TMHrwxNvzMgdGOM5g5 XqHy97Z81q IHdpZHRoPSIxNSUiIHZhbG futc8ztZ6zYs2+PGNvbCB3 mAU6xR4jJhNpSwL5MLtyE5 49InRvcCIv Zgfim3anc8aifIv5CtOwQI XxliJorPrjJKW0s9BnNs10 P8YqaPpza1UrXsa3yk12zW Dkq7A1sHY2 W1UaXKEnfwupaMAmqVmaYZ 5kIGEtcrwcRJPmqQ0kSZWb D0g5RvScLiV3IAivA0Hidt V1PIRccTFb RTMmjIJRrP2ogpbdf6velp lbZjUuWIIlLQh8OOx2XTWm yZycAbRtQSM5JzV7PDC4xT FakD9sxEih rpvvcA9tMmq+JLM7cFXcmJ WGPG6pWknwrXP+PHRkIHN0 rPrvRGcqQAXhuG8tEJUuG5 a2WiVyOcQ6 LOhyC8ByrcQ2PUTsmFHuBE IhpODCkP3svhbjb4fftcfw ZhRyFEGhZFg7IEh5RMJnjP duOiBsZWZ0 GhD3LYN6nEIeuG4sfFuavc qjkZ4dWjr+QmlydGggRGF0 VMb3L2VdSxp5STIanHguRA 0ncGFkZGlu Uj6wpYvyeLlaDE3bRNPbrv hac000IcRrm1mtNGNybFOi GDafZTB3B16mf8I0RHUpHD GnHGR4bWZ9 cJ2srMsyaqbgzZOoxAxsmf AbaYbgXTgzJPznM517KLCs mXxtCbXpFZk9U4UmNci2WH MsrJxrGF0g nGXfIGevCk9llOpmpEggRB 3aKEWzxznra181CnVmm4yb LTPlqHPlNLurMFC7E82iw8 Q2RSPrEBVm HQP7hSS3vT3ocVpaubbvhW VmdDsgdmVydGljYWwtYWxp O124TLCnoVyaZnQlvRo5U8 OaFgj0TXXe dFweIW6yuUHyOWloJh8tyT xxkAhvNJ1vIADscolel975 WoCva3anXJGjyZZcKFisCW T8S71ny6F3 ZDGkXIDdJQM8sMA8mG4hfK lnbjogbGVmdDsgdmVydGlj OTkwYRfuS004LDVofPqjDk BhdGllbnQg RAcnMMy9Y9FaWwqcxWM+PC 30KZCfYM61tJLsdWUrq6po pUj5LcObOSPsOBB6bZwbRN oif7GxHVYz C75txLPus7E6BAKnlLknaS QvFwPknBS3eC1cAOpnsqgr o0yogoggNpumf3tpbf91dL 07C57oFSsb ZHRoPSIzMCUiIHZhbGlnbj 1ftL5gSi3+AMYocII6lCE3 xU5rJUFaPhF0MJdjR424Um RvcCIvPjxj f8baz1lnyUn8ZdT4WPWktw AiyUmiHUW1l3WjBm78Y81p IHdpZHRoPSIyMCUiIHZhbG kiwt2cyL8y Ii8+ULNoqNV4cQI2hA7cQf FeRvS6NOriN217PjVnrXLv MulwO45cB8UevBX+PHRyPj f6CBCxeCzv FD4fvPVqJJhcKv5uJSO5Ca EtFwEmAPoyJ8XhAHWnwqls vzyvdNR6WGFkFTMumZ56Cr 9udDogMTBw hRIQyR8syccym8updahzYm VaLUFyLFx8NTz2GOXgsBik VoPcZKN4VnV8ETN4hHEnnJ 1hbGlnbjog bR9rT4IwRKIcpvjgEo77sI 2kLkXoTxW3LNweBnz+TUNN XOIFPLHqMFEFQK7NRFZRRJ xFTjwvdGQ+ YRWbGBA5xEnjOWjyZEMkfK 9zVWWyE6u0OiEoVkD9UPyy U9RsYBTcnqtsBn14pG5yWb SxWgL8KAdr H8RdkmT7VROwvCJqHMvePX A4C99nf7S6YZQmBSIoDYD7 mDS4zJ6myWwcttlxhCBocU sgdmVydGlj NZlrALxiJ193GJIasChlTi E6UtHsQpA4BOI2I9DjUyo0 DAItqXtmVJ1ieWSiCGvbCr 1yaWdodDog QW9hCCTwsattNFIfkM4aGE WtzCFqjJezSA9nCMSwspry r294FlKcNKD9TNNgeWKuK7 HdnL1hLpZd NMIuVNGcE4CiwDEfHBxpS7 56FCjdNyO2OVSbkhAqL1Hd TWVdoAsiMnL4a5B3Bs07Vf BZZWFyczwv dGQ+MNSrUCC3mHgoLKztSH VorC0wQGSsB9k3LmXcUeC6 FGnoY5LjWNWxsikmQg62qG 1rVxPwTwO1 IBdjF4YbmfH4TMPksPGoIR iyFKL4X25cl4A2PTGdZGRz CLI5wCU0wM5hfAepenrhfI VmdDsgdmVy bBvoNDwnSBreT856EYYisL klFr5DUWW2C8FgVmo2BDWr zBloJL1rwRLdGFbuPn7rmG rtjHdhTQ8g JVNrqmjbDEJvnL1zCYBdpY NnrMwbWN1bGFOhkqbqr292 UuVoXEE0YJHroTFgR9TsmO 9yOiAjMDAw WFMjZ8UmsWCfHKhaD677AT uyKrV9IUXbjyMbP7BfTZXd cHzmJxP0l7Q8Cm1BXVhqF1 FaQ9WrwOph dGQ+LA45vt87N9IxZpguIf t9TYKhPSE8fPV0lQ8dWRBd HZhgc5O5hBT5O3RsbsLyjl 6qz2ugFOVh XJjcY28ofQFla0D1MDNubE Z1YPXrrAkcWqBbbA50Gwy+ QEKinWuej0QyKzcsr6oia8 ddyVp9IuJi LVLztqHdzDxjZIC9x6YfOi 79E57bTQweGROiMCJiQQOc RESyeNpmvi5mmD4uBv0+PG EdsJJ1xPP7 lZ9sIsUbNmD3HEmpQ812En QswWMvZdmvj0vzy9eanSj1 JjNeQILxlhCzxVctNHH9z8 TsZq25Q8Tu bBttd3SwPwj8uw56iSSfy5 Z1xRE5Z3MwGEHgihcxbCNz iJeyBO0qFHInkaibKSYgbI 3cHTDsK5f4 KsYeSdC8IAbdJ1QuimV4QH NcdJRyUXVheNEAtQ5ertco h7vduquhZnWrIXCaWHj4CY m7YSGjnPzl CvDdLQT5DzR5PII9pUIhmE 0keRsiwrchxX9rCqd+UGh5 f3yhbCTcTY8hpDH1CB96ZD 13nGSoz6A3 kSQ3O3UnTAYochzlazvpuJ M4BXXfTRBriG99Ks5mmVtw Of8wVTCrNLW7ZIKcoWBkL9 ZbuY9oUaRf ZZVvBMXfB8RvtMRmGRqtV8 61ZShzHkA4MVLoaqDyO3In ZJXthEduOxY5m3X5Cr7OCI 55GP18HK03 bHNbj8F3fHI9G1ZiDAVlcu hyubawtOQ1YMGsYQEbyY28 Ds4qgLjfRk8mKHYoFBC7NW DgxBAjZ8Fn iC0tRfPoRNEuYGPgV6AbmZ DpOQhgD042PAocErT0UZNz avInT1WqAPSazYwkCpK0c3 U6Fw0JPz40 JY29SE92nSZqd7R9iPG7Q7 IsVDUhqzdhulidiPE9GHLa EOEugH33Vt5ulBzfWg8gFT EhYLY6LYWl tHTpS5JfnT5sJqYhWJCaDC XrR7QuqQYeBNvbV379LFua OzV9XUXpahUcA5MwLRYdmU jfFrJ0v4G8 Vt1WSUnwhdi9Y7YkJuxweF I+JC49EJFfPA57yCShjPUk k1pysRv5TxZlFHJpOGV5fV kbUBplq8Aw ZXI (more content not included)... [facility] Consent Formson 03-02-2025 Consent Forms [id number]#1.00 [facility] Outside Recordson 03-02-2025 Outside Records [id number]#[address]00 [facility] Telemetry Stripson Telemetry Strips [id number] [id number]#[address].00 [facility] Anesthesia Noteon 03-01-2025 Anesthesia Note Patient: [...] on: 03/01/2025 12:38 EDT] Leroy Zuñiga DO [facility] Anesthesia Note Patient: OSCAR ESCOTO Age: [...] = 50 mL, 100 mL/hr, IV Piggyback, Manager Women Documented Medications Documented Cartia XT 240 mg/24 [...] list: All Problems Arrhythmia / SNOMED CT 6629908903 / Confirmed Hypertension / SNOMED CT 1137146338 / Confirmed Restless leg syndrome / SNOMED CT 59486406 / Confirmed Sleep apnea / SNOMED CT 777901077 / Confirmed, Active Problems (4) Arrhythmia Hypertension Restless leg syndrome Sleep apnea Histories Family History: Breast cancer Mother Bladder cancer Father Procedure history: Total hip replacement (979611544). Tonsillectomy and adenoidectomy (747029211). Hernia (6754637113). Comments: 02/02/2025 13:25 EDT - Cass Bledsoe RN inguinal and umbilical Toe ([id number]). Comments: 02/02/2025 13:26 EDT - NavidrCass RN [...] % Auto Lymph % 22 % Auto [place] % 7 % Auto Eos % 2.9 % Auto Baso % 0.7 % Neut Abs# 4.6 x103/mcL Lymph Abs# 1.5 x103/mcL [place] Abs# 0.5 x103/mcL Eos Abs# 0.2 x103/mcL [...] NA . Radiology results: ECHO, 2020 wnl. Maintenance [place]: stress ekg 2015 wnl. ECG interpretation: Normal sinus rhythm. Plan [place] [employer] (ASA) physical status classification: [...] 03/01/2025 11:0 (more content not included)... Normal [facility] Inpatient Patient Summaryon 03-01-2025 [place] [address] Patient Discharge Instructions Name: OSCAR ESCOTO : 1950 Patient Address: [address] [place] [address] Primary Care Provider: Name: NORTH CHAPIN After you are discharged if you find you have any questions, please, call [phone] ext [phone] to speak to a nurse. Discharge Diagnosis: [...] alcohol and/or drug addiction problems; contact the [facility] 17/06 Crisis Hotline -Text 4HQNB nx [phone]. If you received any narcotics, sedation, or [...] business decisions or sign any legal documents [facility] would like to thank you for allowing us to assist you with your healthcare needs. The following includes patient education materials and information regarding your injury/illness. OSCAR ESCOTO has been given the following list of follow-up instructions, prescriptions, and patient education materials: Follow-up Instructions With: Address: When: Nneka Hernandez [address] [place] [id number] [facility] (1) 2025 10:00 AM Medications [...] of you (more content not included)... Normal [facility] MAGR Intraoperative Recordon 03-01-2025 MAGR Intraoperative Record MAGR Intra-Op Record Summary Primary Physician: ENRRIQUE WALDROP DO Finalized Date/Time: 03/01/25 12:04:17 Pt. Name: OSCAR ESCOTO/Sex: 1950 MALE Med Rec #: [id number] Physician: ENRRIQUE WALDROP DO Financial #: [id number] Pt. Type: D Room/Bed: / Admit/Disch: 03/01/25 [...] Role Performed Surgeon - Primary Anesthesiologist of Excavator Operator Record Time In 03/01/25 11:05:00 03/01/25 11:05:00 03/01/25 11:05:00 Time Out 03/01/25 11:57:00 03/01/25 11:57:00 03/01/25 11:57:00 Procedure Arthroscopy Knee(Left) Arthroscopy Knee(Left) Arthroscopy Knee(Left) Last Modified By: Alissa LEOS, Rupinder Maxwell RN, Rupinder Mohan RN 03/01/25 12:03:50 03/01/25 12:03:50 03/01/25 12:03:50 Entry 4 Entry 5 Case Attendee Felicitas Ramos SPREADING MACHINE OPERATOR Berny SPREADING MACHINE OPERATOR, Sarah GALLAGHER CSFA Role Performed Cutter Machine Tender Cutter Machine Tender Time In 03/01/25 11:05:00 03/01/25 11:05:00 Time [...] , Alissa LEOS, Richard Bucio Regina CSFA SPREADING MACHINE OPERATOR, ENRRIQUE WALDROP DO, Berny SPREADING MACHINE OPERATOR, Sarah GALLAGHER CSFA Last Modified By: Rupinder [...] to positi (more content not included)... [facility] Summary Primary Physician: ENRRIQUE WALDROP DO Finalized Date/Time: 03/01/25 12:31:44 Pt. Name: OSCAR ESCOTO/Sex: 1950 MALE Med Rec #: [id number] Physician: ENRRIQUE WALDROP DO Financial #: [id number] Pt. Type: D Room/Bed: / Admit/Disch: 03/01/25 08:45:44 - Institution: PACU Case Times MAGR Entry 1 In PACU I 03/01/25 12:00:00 Discharge from PACU 03/01/25 12:28:00 I Last Modified By: Hannah Abraham RN 03/01/25 12:31:42 Finalized By: Hannah Abraham RN Document Signatures Signed By: Hannah Abraham RN 03/01/25 12:31 [facility] MAGR Postoperative Recordon 03-01-2025 MAGR Postoperative Record MAGR Phase II Record Summary Primary Physician: ENRRIQUE WALDROP DO Finalized Date/Time: 03/01/25 13:26:19 Pt. Name: OSCAR ESCOTO/Sex: 1950 MALE Med Rec #: [id number] Physician: ENRRIQUE WALDROP DO Financial #: [id number] Pt. Type: D Room/Bed: / Admit/Disch: 03/01/25 [...] understanding of discharge instructions. Finalized By: Camden oJnes RN Document Signatures Signed By: Camden Jones RN 03/01/25 13:26 [facility] MAGR Preoperative Recordon 0 03-01-2025 MAGR Preoperative Record MAGR Pre-Op Record Summary Primary Physician: ENRRIQUE WALDROP DO Finalized Date/Time: 03/01/25 13:12:56 Pt. Name: OSCAR ESCOTO/Sex: 1950 MALE Med Rec #: [id number] Physician: ENRRIQUE WALDROP DO Financial #: [id number] Pt. Type: D Room/Bed: / Admit/Disch: 03/01/25 [...] By: Camden Jones RN 03/01/25 13:12 Normal [facility] Patient Handouton 03-01-2025 Patient Handout Arthroscopic [...] with you for the rest of today. [facility] Progress Note - Nurseon Progress Note - Nurse Spoke with pt and informed him to be at hospital at 0845 and NPO after MN, he verbalizes understanding. [Electronically Signed on: 02/26/2025 09:54 EDT] Miranda Head RN [Verified on: 02/26/2025 09:54 EDT] Miranda Head RN [facility] Coding Summaryon 03-18-2025 Coding Summary HTMLBase 64 TwbeblpuUTb6aCn+PGhlYW Q+BP1YHRSnA44avBBkaE6p C5CMQZyHRfldGARBZVuFDi CxeaFxDX0teQTjEZDa IC8+QL6tTEXjEsdvtOVki9 L7qMS0I07txx3gXNkthGB7 MDHbWwGdachtf7mfzBx8TY cuNmluOyBt WPEstA79NEL8xD73Ca33xZ UnyMGsb6bhmSe3KmWnBRBk HHV3gKldKMwrh4WmUMSbT9 4zlXSgh4Z4 JAAykSzdbIAcKjLxqGS1tX 6aJTdwtbraa3xlkciqIny8 sc02dHRoi4H4oMO8V7Zvod X6JPSsvAEz ChnbtSREgX7btlelx1gjkv viGlBlMLAmBNp2YCv3RZWy nUzyFzFoYF44PWM9LYXkli RiV5LhUNHe fCqyAaZ3b3A5Zl9EJ9UPMa adE7CMECIYMAiryZA+PC90 du93D3YtYdsaCkz5WLVbPF V5jAM9lG1d WBOlBDqlf1S5pVM4E3Ouyr Vsjl1ac3inNREzXOahY06a gMOhz4P1BTBosBZ2NUKceW xwZdZuvY90 Oyc+SHRhaDgvw5OuHehst8 neq9pokGn2HoimLJPvpjNs cKdeYPZ3w4YkUc9hLZJodO O2kPE8pO9r AuClElW7GJjvK076BzHjuE UsBusbQ33pA6PkxLT+PHRy Fno4EPYrqQliVP8rS7TzIH RpbmctbGVm zDsgBJ6rNUIifyfqPIZuqF 5rRKIiG4g8VkJsAoN2RRby D7ZaLPZzyshrPu25iB1wKl TmMgL5UYyc D7DlfwI6RMPncVIiXYmbXJ U8T36pv4J9BSEiORGeNLX7 lVT7gB8bgBvopsmppYVyjI sgdmVydGlj EBvtGOsmU652FPTrcAduUb NvZGluZyBEYXRlOiAgMDMv MTgvMjAyNTwvdGQ+PHRkIH H3wFgkWBUc vOBsCOcwUg5yoCgboQjlBO 8kAMAtjyauMXAhpR7jXBUl wHTeeGhxLE6uEELysoabo7 26JfSgVTB6 EXXheDJgJ7NmbS4yYgJuFK SrZQBrL5TvcQUpVVwdA182 XMoyKzZ7RXOorgIyA4FlLZ FsaWduOiB0 o8H1Br7Kn9FznvgtD1FihE ZqEtCfShccTMi6H1HgNnic dHI+BT48FPNeLO69AXt7CG U1nPoyFVui KZOmC5UppL3gMcKpFQQeXN RkOyc+PHRhYmxlIHdpZHRo LTvdMAAoWrHjoFmzHO0fPy 9yZGVyLWNv vCzmpJEfGzFpl5jdHZLpUK heVN2afZgmN8MqwUR1TIDj z2k4Ui89N97cR8ZxzOQ+PG CmqOQ3rXM7 gJ4tErGxRnA5CQafX597Kp NjtGPdPlvzk3tgi5fnaCk7 HmL4TAGlfzAldJcmCCB5s0 LrPz74O46y IHdpZHRoPSIxNSUiIHZhbG khhn4vbF6vPx3+PGNvbCB3 wPI0rV3yMnIpZcC1NLulP3 49InRvcCIv Zhxkc5yss5lmiNs7NzVtFT IuyrUjwGtmVMH5x9DiCx44 Y0TtdLmyp2CkAmc3wq32zO Mda4E8kPJ9 N8MvPUQdnwqtzKCzoPcbBI 7bOXAyqqlmUYNmrI8lKCFi I0a1HpCsIcT2JZfcI0Btzn W7VYNfgAUl KOMmtQCPkQ6xvnsrf5dfsr eyLhOaEAKjMMa0YCr6CKLa gIicQgAtSVA3KvG2JHF4fP WxzA8nmSnx mukqtY6dRme+MSM8dPAbyT YOHW9jJvjwdMS+PHRkIHN0 xDgiJSewMXVamM3qDTLrG6 g9FkMkRtV4 DVkaU7LgxzH7JXPdjTEtHZ DaaGIBsQ1swmnls8ldqaso EgTyILInXPn6CJb1VINqcZ duOiBsZWZ0 AvJ2MWV0uNCtxI2vaXdrld ejvR9cRzh+QmlydGggRGF0 SBy0X4ZzWae6SEQqkEdiRK 0ncGFkZGlu Ti9nkVlvvAqpVV6oATIeyq ieg420UwIiu5wbYFXrlZPr KXvxCTN2H01wd4S4NUGkGO ShPKQ7lJP1 rW8jpGikyerduKXcwTznlj RhzLwkXXqqSQfqD444KUMi wVnnPcSuSMz0B9XcYoh1BG QteFaoEA3o vSHoOYbvAl3ldKmpsIbsBB 9nVXAomkrcq486TcXzt7ry SLJzqLRmABzqSRB4B06uj7 T6BEZjMDAg OFK5bXG1bL5yvDcvrmhogK VmdDsgdmVydGljYWwtYWxp V920AKOsiTfcZnKplIo9J1 HfXgz7NESc tIxoDN4nxBTjZKzaHf8qlE gpwDloKF0hVOXhgstpx806 NbUys1tyLJEjvFHpTBhgGR G6C52iu7Q6 OKVcUCDzTCT6aWH2wR9kqU lnbjogbGVmdDsgdmVydGlj BBceEGifA113TORbrFfeQb BhdGllbnQg PVilLFh1S3JyEkagaIE+PC 61LUAoGJ25hDUieTNpp5np aCq7YwHwMXYcEFF0qBgeME rxz3UdXAMq P17jtYOwz1G5AEWohKsbkF QpDcTmxFZ3hB5wZWxruuvm w4aoudijGpewq9dyrg59zI 26W31mDJrd ZHRoPSIzMCUiIHZhbGlnbj 6oeD3pJc0+IGCsqNQ2gUA7 vP6qXFTyEpH6XSxfA444Su RvcCIvPjxj r9uyr2zlfLl0NtP5DCGcqt AfqKsyUGE3v2UgKh47U61j IHdpZHRoPSIyMCUiIHZhbG cyyn2vyZ6n Ii8+QGCztYK3cHT1iJ6oTw TmFoA7PKooV757IcEuaNMd BcvoM17xK7ZujZR+PHRyPj c4XYMtbHez DH2sxUOnSPwyVx4lRWS1Cm XeAuVzNRcnQ7GdZDKcztoz sgxbcLY4WDBlGMDcyX53Pv 9udDogMTBw jXUKkJ0mxbvzp1mturanCs HxXXXtZUt4ATv3MIAxaTge XcChAXM2NbP2XLX2xOPvmK 1hbGlnbjog sE6lY7PhZTIqexpkOj76kE 2dUiAnBwY9PVvvJzm+TUNN FJOPKXAsIPXIBS4ADTJLCQ xFTjwvdGQ+ DRVeKNE0nUqtBTooPECjvE 3dLIOqC8w7JcEbVoV0UGjv D6OfXDFexsgaZd43dC8cPu EeIrW4CJto J7YakxU0EFCkyOMmSNlaWA U8V27rr2H2NJOoDMFzRXQ9 lSY6wO6jyRuexlangJKolJ sgdmVydGlj ELwgUCjzF503YOPmhYqbEw Z5HaNpKsD4MBQ3O2CxFse7 ISQuaDseVU7jkEOhXBdcDm 1yaWdodDog DC7iSYPifsuxBCLruC7jXA QagUIiqFshGH9gIYZyxldd o152GnMkYGO2DGIreLJqZ2 XbkW3eJwJz CLUrPAHiM8IplEWcLVziC2 92RLxqFgE0OVXrilSqF5Mq JEYugFdtEcR0x4B8Yt62Bk BZZWFyczwv dGQ+QOFlFYH2oSmqKPlrGK SlkN7pIHOdK4e5OdVgJhL5 EAloC2ArEVJvcszgKp78lE 1cNpEsXjH1 JFqeC2ZpzrR3VVCbrOYsYV cjLPM2Z66ae9Z9YBMhHKOg YKA8sXH4bB5nwPnnvdhqzS VmdDsgdmVy oQtxZOsfYAdrH734HEQdnJ irRf7ABQD8J2BeIbp0LAOg gGnoTW9eeNQtXFgrZr3twW pckYlsFY7g HZZibvvuMYHapP7fENNxjL KnsUlxXU9tQLYcjnvzq497 QiYrTHD7JEBkzZEvR0ZyeT 9yOiAjMDAw SPHxV8WptDGvVLetR127DN buQbA9TOYhxpDwO6LrWQWa aUhaBpO3i2Z4Hn2KLFjmnO Q+HS56xk61 F1FrJrlvDil3VIIdQQK9dA M5xL3dBJYyHZysn8A2oWB6 O6XwpsYsel5ai7zfIKEqVK wgI17zyFQi i5B2FYGprDA4AYEabWygJs QkjE90Uxh+EIBhpItmz4Rz Rjkpr3wfn7qcoVs5TcHdAC IgdmFsaWdu OIQ3p8FiDm52V18yABhmHZ MvNGOhTDIzWVDxbTguoa0p zF8eOx5+ZMWcaOT7eSE7gK 7fVdUbXrX5 NTpmL195GuDsjXBzLxfxj9 jfg2mlrPd3EaLuZXMhjgMr kMisMQL2g0WkSa16U7FsrH pwr9ItBqx2 oc67lFKao6N0gAY7H3QhSX BemmvkwBYhnAkzUA1iYYFk cvvhYORxpT3sPTZmR7i4Rn ZoMgJ0VTpp V9CpgtQ7TSClvGUyYXLaoQ CHnE0eqsjcv7vhswjlEiMr ABHoQKg9AAu1UERimYkrIn UvTZS6MpO5 IMV0rFNzoI6atImfjtqyuB 9wOyc+VAo0f6izqIMdGF4j xXM6EK91AQ62zNSzb6U0dD R7Y4TgYZZu ghowsvryqGM0QGAyMWZmoV 72Pt4kxLdaQk7cSRVbGTD2 YMJcdEEiH9OeqA5wIeZnNY BzBCMbP8Vi mMEtAXscW391VAihFzR2PE BiovIqQ5UdIDXyqHzoZnR5 h5A5Op6RUJ29OJ29FF15yT Drv8K4sXX7 S8CqSQKbaknlfdcrnAQ9BK GjUEYwdL33Ls9pvZhdMw1l LWApXOX6GFWhhQFfI6LlhY 9yOiAjMDAw SIXlT2JjuWPxNDpyM821TV pwQkP3CKCtzhStI4KtINLv dTzgPoZ0k9I8Cc2WNw86XG 53SX63sXYs h1N2pHE1N6HaDKIwmlkagg riiJE3KZJrODJtrO24Tk7c nYvtDb7jVYEtWVS1GFYbxK MeA3KhpH1d PuKnOBLnGCBuE5MxdZAuVU ruJ992IXrcXyU5YRTnkhAs R5XwMAWalAoxHpC3c9I1Ok 7OANcttky4 N0YdSzjqzEW+BO03IOIwFC 79xGXxgAMwf2zprGn7HsTg LGUdGQR6hHrrPYtzj2PcIP XjH46zrWXo c2U (more content not included)... [facility] Progress Note - Nurseon 01-23 Progress Note - Nurse Dr Ovalles reviews pt chart and no new orders were received. [Electronically Signed on: 02/04/2025 12:38 EDT] Miranda Head RN [Verified on: 02/04/2025 12:38 EDT] Miranda Head RN [facility] 36on 02-03-2025 36 Patient's says his BP is higher AFTER he takes lisinopril. They are leaving tomorrow to go to [place] for 2 weeks. I think they question [...] of his BP without, that was ok. [facility] 36 PER BRENNAN STAY ON 5 MG [facility] .Auto Diff 02-02-2025 Auto [place] % 7 % Normal 12-06 [facility] Comment on above: Performed By: #### 7 [id number], [id number], [id number] ####[facility] (DEFAULT)[address] [place] [address] Baso Abs# 0.0 x10 Normal 0.0-0.2 [facility] Comment on above: Performed By: #### 7 058574, [id number], [id number] ####[facility] (DEFAULT)[address] [place] [address] 90903 Basophils/100 WBC (Bld) 0.7 % Normal 0.2-2.0 [facility] Comment on above: Performed By: #### 7 839060, [id number], [id number] ####[facility] (DEFAULT)[address] [place] [address] 27296 Eos Abs# 0.2 x10 Normal 0.0-0.4 [facility] Comment on above: Performed By: #### 7 966564, [id number], [id number] ####[facility] (DEFAULT)[address] [place] [address] 22493 Eosinophils/100 WBC (Bld) 2.9 % Normal 0.9-4.0 [facility] Comment on above: Performed By: #### 7 771959, [id number], [id number] ####[facility] (DEFAULT)[address] [place] [address] 80142 Lymph Abs# 1.5 x10 Normal 1.3-2.9 [facility] Comment on above: Performed By: #### 7 602460, [id number], [id number] ####[facility] (DEFAULT)[address] [place] [address] 41710 Lymphocytes/100 WBC (Bld) 22 % Normal 14-48 [facility] Comment on above: Performed By: #### 7 019260, [id number], [id number] ####[facility] (DEFAULT)[address] [place] [address] 60176 [place] Abs# 0.5 x10 Normal 0.0-0.8 [facility] Comment on above: Performed By: #### 7 136298, [id number], [id number] ####[facility] (DEFAULT)[address] [place] [address] 23588 Neut Abs# 4.6 x10 Normal 1.5-9.2 [facility] Comment on above: Performed By: #### 7 113526, [id number], [id number] ####[facility] (DEFAULT)[address] [place] [address] 14130 Neutrophils/100 WBC (Bld) 67 % Normal 44-88 [facility] Comment on above: Performed By: #### 7 613396, [id number], [id number] ####[facility] (DEFAULT)[address] [place] [address] 40279 BMP Standardon 02-02-2025 eGFR Non AA 58 mL/min/1.73m2 Invalid Interpretation Code [facility] Comment on above: Performed By: #### 7 507545, [id number], [id number] ####[facility] (DEFAULT)[address] [place] [address] 87306 eGFR AA >60 Invalid Interpretation Code [facility] Comment on above: Performed By: #### 7 987566, [id number], [id number] ####[facility] (DEFAULT)[address] [place] [address] 97276 Anion gap [Moles/Vol] 12.6 mmol/L Normal 5.0-19.0 [facility] Comment on above: Performed By: #### 7 390003, [id number], [id number] ####[facility] (DEFAULT)[address] [place] [address] 89393 Calcium [Mass/Vol] 9.3 mg/dL Normal 8.9-10.3 [facility] Comment on above: Performed By: #### 7 082306, [id number], [id number] ####[facility] (DEFAULT)[address] [place] [address] 86206 Chloride [Moles/Vol] 105 mmol/L Normal 101-111 [facility] Comment on above: Performed By: #### 7 232019, [id number], [id number] ####[facility] (DEFAULT)[address] [place] [address] 46836 CO2 [Moles/Vol] 24 mmol/L Normal 21-32 [facility] Comment on above: Performed By: #### 7 766724, [id number], [id number] ####[facility] (DEFAULT)[address] [place] [address] 18868 Creatinine [Mass/Vol] 1.23 mg/dL Normal 0.90-1.30 [facility] Comment on above: Performed By: #### 7 635457, 73533915, [id number] ####[facility] (DEFAULT)[address] [place] [address] 40563 Glucose [Mass/Vol] 103.0 mg/dL Normal 74.0-118.0 [facility] Comment on above: Performed By: #### 7 359348, [id number], [id number] ####[facility] (DEFAULT)[address] [place] [address] 37147 Osmolality 280 mOsm/L Invalid Interpretation Code [facility] Comment on above: Performed By: #### 7 768547, [id number], [id number] ####[facility] (DEFAULT)[address] [place] [address] 86379 Potassium [Moles/Vol] 3.6 mmol/L Normal 3.6-5.1 [facility] Comment on above: Performed By: #### 7 990970, 70694346, [id number] ####[facility] (DEFAULT)[address] [place] [address] 57786 Sodium [Moles/Vol] 138.0 mmol/L Normal 136.0-144.0 [facility] Comment on above: Performed By: #### 7 025660, [id number], [id number] ####[facility] (DEFAULT)[address] [place] [address] 14162 Urea nitrogen [Mass/Vol] 23 mg/dL Normal 8-26 [facility] Comment on above: Performed By: #### 7 702147, 88693673, [id number] ####[facility] (DEFAULT)[address] [place] [address] 16277 Urea nitrogen/Creatinine [Mass ratio] 18.6 mg/mg High 4.6-16.2 [facility] Comment on above: Performed By: #### 7 206900, [id number], [id number] ####[facility] (DEFAULT)[address] [place] [address] CBC w/ Auto Diffon Erythrocyte distribution width (RBC) [Ratio] 14.5 % Normal 11.5-15.0 [facility] Comment on above: Performed By: #### 7 880917, 00978129, [id number] ####[facility] (DEFAULT)[address] [place] [address] Hematocrit (Bld) [Volume fraction] 42.0 % Normal 34.8-51.9 [facility] Comment on above: Performed By: #### 7 916400, 95060164, [id number] ####[facility] (DEFAULT)[address] [place] [address] Hemoglobin (Bld) [Mass/Vol] 14.4 g/dL Normal 11.8-17.7 [facility] Comment on above: Performed By: #### 7 524716, [id number], [id number] ####[facility] (DEFAULT)[address] [place] [address] Man Diff? Auto Invalid Interpretation Code [facility] Comment on above: Performed By: #### 7 937134, [id number], [id number] ####[facility] (DEFAULT)[address] [place] [address] MCH (RBC) [Entitic mass] 31 pg Normal 24-34 [facility] Comment on above: Performed By: #### 7 500653, 64543761, [id number] ####[facility] (DEFAULT)[address] [place] [address] MCHC (RBC) [Mass/Vol] 34 g/dL Normal 26-37 [facility] Comment on above: Performed By: #### 7 293773, 16417947, [id number] ####[facility] (DEFAULT)[address] [place] [address] MCV (RBC) [Entitic vol] 89 fL Normal 81-100 [facility] Comment on above: Performed By: #### 7 673104, 14132666, [id number] ####[facility] (DEFAULT)[address] [place] [address] Platelet 233 x10 Normal 138-427 [facility] Comment on above: Performed By: #### 7 432873, [id number], [id number] ####[facility] (DEFAULT)[address] [place] [address] Platelet mean volume (Bld) [Entitic vol] 9.5 fL Normal 6.3-10.2 [facility] Comment on above: Performed By: #### 7 247710, 85639769, [id number] ####[facility] (DEFAULT)[address] [place] [address] RBC 4.71 x10 Normal 3.70-5.30 [facility] Comment on above: Performed By: #### 7 572912, [id number], [id number] ####[facility] (DEFAULT)[address] [place] [address] 91266 WBC 6.9 x10 Normal 3.5-10.5 [facility] Comment on above: Performed By: #### 7 165963, 66322228, [id number] ####[facility] (DEFAULT)[address] [place] [address] Telephoneon 02-02-2025 Telephone [id number] TigistOscar 1950 M Date Provider Department Center 02/02/2025 TRINITY DIAZ CARD [facility] Family History Problem Relation Age of Onset Other Mother Coronary artery disease Mother Other Father Family Status - Relation Status Age at Mother Father Normal [facility] 36on 12-24-2024 36 Patient called back [...] keep an eye on his BP. Normal [facility] Telephoneon 12-11-2024 Telephone [id number] TigistOscar 1950 M Date Provider Department Center 12/11/2024 TRINITY DIAZ KATHARINA [place] [facility] Family History Problem Relation Age of Onset Other Mother Coronary artery disease Mother Other Father Family Status - Relation Status Age at Mother Father Normal [facility] XR Knee - bilateral AP W sta ndingon 11-11-2024 Imaging Result: Standing AP shows no gross evidence of major arthritic process, overall anatomic alignment appeared to be well preserved. There was no acute bony process including but not limited to fracture and/or dislocation. Impression: no gross evidence of major arthritic process or structural damage bilateral knees [facility] XR Knee - bilateral AP W sta ndingOrdered By: Jr. Waldrop on 11-11-2024 [facility] Work Phone: Office Visiton 11-10-2024 Follow-up visit [id number] Oscar Escoto 1950 M Date Provider Department Center 11/10/2024 Patrice-ROXANNE AMIN KATHARINA Wu Family History Problem Relation Age of Onset Other Mother Coronary artery disease Mother Other Father Family Status - Relation Status Age at Mother Father Level of Service:90541 NM OFFICE/OUTPATIENT ESTABLISHED LOW MDM 20 MIN Normal [facility] No Panel Informationon 11-09 Mary Lou [...] discussed. Consent was given by the patient. [facility] XR Knee - bilateral AP W sta ndingon 11-09-2024 Radiology Study observation (narrative) [facility] Ambulatory Visit Summaryon 1 12-12-2023 Ambulatory Visit [...] Natali IRAHETA MD Where: [facility] [address] [place] [address]- You Need to Schedule the Following Appointments Follow Up with Natali IRAHETA MD, URL When: Comments: 6 mos Where: [facility] [address], [place] [address]- [phone] Medications What How Much When Instructions New ciprofloxacin (Cipro 500 mg Tab) 1 Tablets By Mouth Every 12 hours Duration: 30 Days Pickup at [facility] 1426 Unchanged finasteride (finasteride 5 [...] physician if questions or concerns Pharmacy Information [facility] 1429: [address] [place], [place] [id number] [phone] Allergies No Known Medication Allergies Problems Ongoing - Any problem that you are currently receiving treatment for. 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 Normal [facility] [...] Oliveira MD on 10/08/2024 1:54 PM Normal [facility] No Panel Informationon 08-13 Type of biopsy: [...] taken Amount of lidocaine used: 1.0 cc [facility] Office Visiton 06-09-2024 Follow-up visit [id number] Oscar Escoto 1950 [facility] Provider Department [place] 06/09/2024 ROXANNE MARTINEZ [facility] Family History Problem Relation Age of Onset Other Mother Coronary artery disease Mother Other Father Family Status - Relation Status Age at Mother Father Level of Service:59768 NM OFFICE/OUTPATIENT ESTABLISHED LOW MDM 20 MIN Normal [facility] Lab Reportson 03-30-2024 Lab Reports [id number]#1.0 0TIFF Normal [facility] Lab Reports [id number]#1.0 0TIFF Normal [facility] Lab Reportson 03-29-2024 Lab Reports [id number]#1.0 0TIFF Normal [facility] Lab Reportson 03-27-2024 Lab Reports [id number]#1.0 0TIFF Normal [facility] Office Visiton 03-17-2024 Follow-up visit [id number] Oscar Escoto 1950 M Date Provider Department Center 03/17/2024 SOLEDAD TAVERAS KATHARINA [place] [facility] Family History Problem Relation Age of Onset Other Mother Coronary artery disease Mother Other Father Family Status - Relation Status Age at Mother Father Level of Service:55568 NM OFFICE/OUTPATIENT ESTABLISHED LOW MDM 20 MIN Reason for Visit and Comments: Atrial Fibrillation [80] Normal [facility] Superficial Wound Cultureon 03-18-2023 Superficial Wound [...] RESISTANT TO ALL B-LACTAM DRUGS. PERFORMED BY: [place] [id number] PATHOLOGIST MANAGER SOCIAL RESPONSIBILITY ISABELLA MCKEON M.D. Normal [facility] Comment on above: Performed By: #### C USUP #### [address] ECHOCARDIO M/2D COMPLETEon 0 03-12-2023 ECHOCARDIO M/2D COMPLETE Patient: OSCAR ESCOTO Exam Date: 03/12/2023 : 1950 Gender:M Ordering : DR NORTH CHAPIN . Admission #: [id number] Family : ROXANNE AMIN MD Order #: [id number] CLICK HERE TO VIEW EXAM ECHOCARDIOGRAM REPORT [...] Solorio M.D. on 03/12/2023 at 18:41 Normal [facility] US CAROTID ART BILon 04-18-2 023 [...] MARÍA BRYSON Date: 2023-03-12 15:01 Normal [facility] CBC AUTO DIFFon 03-06-2023 BASO # 0.1 103/ul Normal 0.0-0.1 [facility] Comment on above: Performed By: #### C BC #### [facility] [address] [place] [address] Dr. Sanjuana Kasper Basophils/100 WBC (Bld) 0.9 % Normal 0.2-2.0 [facility] Comment on above: Performed By: #### C BC #### [facility] [address] [place] [address] Dr. Sanjuana Kasper EO # 0.3 103/ul Normal 0.0-0.7 [facility] Comment on above: Performed By: #### C BC #### [facility] [address] [place] [address] Dr. Sanjuana Kasper Eosinophils/100 WBC (Bld) 5.0 % Normal 0.9-7.0 [facility] Comment on above: Performed By: #### C BC #### [facility] [address] [place] [address] Dr. Sanjuana Kasper Erythrocyte distribution width (RBC) [Ratio] 13.5 % Normal 11.0-15.0 [facility] Comment on above: Performed By: #### C BC #### [facility] [address] [place] [address] Dr. Sanjuana Kasper Hematocrit (Bld) [Volume fraction] 41.9 % Critically low 42.0-54.0 [facility] Comment on above: Performed By: #### C BC #### [facility] [address] [place] [address] Dr. Sanjuana Kasper Hemoglobin (Bld) [Mass/Vol] 13.9 g/dL Critically low 14.0-18.0 [facility] Comment on above: Performed By: #### C BC #### [facility] [address] [place] [address] Dr. Snajuana Kasper IG # 0.02 10e3/ul Normal 0.00-0.03 [facility] Comment on above: Performed By: #### C BC #### [facility] [address] [place] [address] Dr. Sanjuana Kasper IG % 0.3 % Normal 0.0-0.5 [facility] Comment on above: Performed By: #### C BC #### [facility] [address] [place] [address] Dr. Sanjuana Kasper LYMPH # 1.4 103/ul Normal 1.2-3.8 [facility] Comment on above: Performed By: #### C BC #### [facility] [address] [place] [address] Dr. Sanjuana Kasper Lymphocytes/100 WBC (Bld) 23.8 % Normal 20.5-60.0 [facility] Comment on above: Performed By: #### C BC #### [facility] [address] [place] [address] Dr. Sanjuana Kasper MANUAL DIFF REQ NO Normal [facility] Comment on above: Performed By: #### C BC #### [facility] [address] [place] [address] Dr. Sanjuana Kasper MCH (RBC) [Entitic mass] 29.5 pg Normal 25.9-34.0 [facility] Comment on above: Performed By: #### C BC #### [facility] [address] [place] [address] Dr. Sanjuana Kasper MCHC (RBC) [Mass/Vol] 33.2 g/dL Normal 29.9-35.2 [facility] Comment on above: Performed By: #### C BC #### [facility] [address] [place] [address] Dr. Sanjuana Kasper MCV (RBC) [Entitic vol] 89.0 fL Normal 80.0-94.0 [facility] Comment on above: Performed By: #### C BC #### [facility] [address] [place] [address] Dr. Sanjuana Kasper MONO # 0.4 103/ul Normal 0.3-0.8 [facility] Comment on above: Performed By: #### C BC #### [facility] [address] [place] [address] Dr. Sanjuana Kasper Monocytes/100 WBC (Bld) 7.1 % Normal 1.7-12.0 [facility] Comment on above: Performed By: #### C BC #### [facility] [address] [place] [address] Dr. Sanjuana Kasper NEUT # 3.7 103/ul Normal 1.4-6.5 [facility] Comment on above: Performed By: #### C BC #### [facility] [address] [place] [address] Dr. Sanjuana Kasper Neutrophils/100 WBC (Bld) 62.9 % Normal 43.0-75.0 [facility] Comment on above: Performed By: #### C BC #### [facility] [address] [place] [address] Dr. Sanjuana Kasper Platelet mean volume (Bld) [Entitic vol] 10.6 fL Normal 9.5-13.5 [facility] Comment on above: Performed By: #### C BC #### [facility] [address] [place] [address] Dr. Sanjuana Kasper PLT 259 103/ul Normal 150-450 [facility] Comment on above: Performed By: #### C BC #### [facility] [address] [place] [address] Dr. Sanjuana Kasper RBC 4.71 106/ul Normal 4.70-6.10 [facility] Comment on above: Performed By: #### C BC #### [facility] [address] [place] [address] Dr. Sanjuana Kasper WBC 5.8 103/ul Normal 4.0-11.0 [facility] Comment on above: Performed By: #### C BC #### [facility] [address] [place] [address] Dr. Sanjuana Kasper GLYCOHEMOGLOBIN A1Con 2022 ADA RECOMMENDATION SEE BELOW Normal [facility] Comment on above: Result Comment: ADA RECOMMENDED LIMIT 4.0 - 6.0 ADA THERAPEUTIC TARGET < 7.0 ACTION SUGGESTED > 7.0 Performed By: #### A 1C #### [facility] [address] [place] [address] Dr. Sanjuana Kasper Glucose [Mass/Vol] 108 mg/dL Normal [facility] Comment on above: Performed By: #### A 1C #### [facility] [address] [address] [address] Sanjuana Kasper HbA1c (Bld) [Mass fraction] 5.4 % Normal 4.5-6.2 [facility] Comment on above: Performed By: #### A 1C #### [facility] [address] [place] [address] Dr. Sanjuana Kasper LIPID PROFILEon 03-06-2023 CHOL-HDL RATIO NORM SEE BELOW Normal [facility] Comment on above: Result Comment: 3.3 - 4.4 LOW RISK 4.4 - 7.1 AVERAGE RISK 7.1 - 11.0 MODERATE RISK >11.0 HIGH RISK Performed By: #### T SH, LIPID, BMP, LIVER #### [facility] [address] [place] [address] Dr. Sanjuana Kasper Cholesterol [Mass/Vol] 192 mg/dL Normal <=200 [facility] Comment on above: Performed By: #### T SH, LIPID, BMP, LIVER #### [facility] [address] [place] [address] Dr. Sanjuana Kasper Cholesterol in HDL [Mass/Vol] 61 mg/dL Critically high 40-60 [facility] Comment on above: Performed By: #### T SH, LIPID, BMP, LIVER #### [facility] [address] [place] [address] Dr. Sanjuana Kasper Cholesterol in LDL [Mass/Vol] 122.2 mg/dL Normal [facility] Comment on above: Performed By: #### T SH, LIPID, BMP, LIVER #### [facility] [address] [place] [address] Dr. Sanjuana Kasper Cholesterol.total/Cho lesterol in HDL [Mass ratio] 3.1 {ratio} Normal [facility] Comment on above: Performed By: #### T SH, LIPID, BMP, LIVER #### [facility] [address] [address] [address] Sanjuana Kasper HDL NORMAL > or = 60 mg/dl - LO W CARDIOVASCULAR RISK <40 mg/dl - HIGH CARDIOVASCULAR RISK Normal [facility] Comment on above: Performed By: #### T SH, LIPID, BMP, LIVER #### [facility] [address] [address] [address] Sanjuana Kasper LDL CALC NORMAL SEE BELOW Normal [facility] Comment on above: Result Comment: <100 mg/dl OPTIMAL 100 - 129 mg/dl NEAR OR ABOVE OPTIMAL 130 - 159 mg/dl BORDERLINE HIGH 160 - 189 mg/dl HIGH >190 mg/dl VERY HIGH Performed By: #### T SH, LIPID, BMP, LIVER #### [facility] [address] [address] [address] Sanjuana Kasper Triglyceride [Mass/Vol] 44 mg/dL Normal <=150 [facility] Comment on above: Performed By: #### T SH, LIPID, BMP, LIVER #### [facility] [address] [address] [address] Sanjuana Kasper VLDL CALC 8.8 mg/dL Normal [facility] Comment on above: Performed By: #### T SH, LIPID, BMP, LIVER #### [facility] [address] [address] [address] Sanjuana Kasper LIVER PROFILEon 03-06-2023 Albumin [Mass/Vol] 3.6 g/dL Normal 3.4-5.0 [facility] Comment on above: Performed By: #### T SH, LIPID, BMP, LIVER ####[facility] [address] [place] [id number]. Sanjuana Kasper Albumin/Globulin [Mass ratio] 1.0 {ratio} Normal [facility] Comment on above: Performed By: #### T SH, LIPID, BMP, LIVER ####[facility] Pdsbgs[address]rf[address] [place] [id number]. Sanjuana Kasper ALP [Catalytic activity/Vol] 91 U/L Normal 46-116 [facility] Comment on above: Performed By: #### T SH, LIPID, BMP, LIVER ####[facility] [address] [place] [address]Dr. Carlayazmin Kasper ALT [Catalytic activity/Vol] 28 U/L Normal 16-63 [facility] Comment on above: Performed By: #### T SH, LIPID, BMP, LIVER ####[facility] [address] [place] [address]Dr. Sanjuana Kasper AST [Catalytic activity/Vol] 16 U/L Normal 15-37 [facility] Comment on above: Performed By: #### T SH, LIPID, BMP, LIVER ####[facility] [address] [place] [address]Dr. Sanjuana Kasper BILI, CONJUGATED 0.1 mg/dL Normal 0.0-0.[address] [facility] Comment on above: Performed By: #### T SH, LIPID, BMP, LIVER ####[facility] [address] [place], [place] [address]Dr. Sanjuana Kasper Bilirubin [Mass/Vol] 0.4 mg/dL Normal 0.2-1.0 [facility] Comment on above: Performed By: #### T SH, LIPID, BMP, LIVER ####[facility] [address] [place], [place] [address]Dr. Sanjuana Kasper Globulin (S) [Mass/Vol] 3.6 g/dL Normal [facility] Comment on above: Performed By: #### T SH, LIPID, BMP, LIVER ####[facility] [address] [place], [place] [address]Dr. Sanjuana Kasper Protein [Mass/Vol] 7.2 g/dL Normal 6.4-8.2 [facility] Comment on above: Performed By: #### T SH, LIPID, BMP, LIVER ####[facility] [address] [place] [address]Dr. Sanjuana Kasper PROF CHEM 8 (BAS METB)on Anion gap [Moles/Vol] 12.2 mmol/L Normal [facility] Comment on above: Performed By: #### T SH, LIPID, BMP, LIVER ####[facility] [address] [place] [id number]. Sanjuana Kasper Calcium [Mass/Vol] 9.1 mg/dL Normal 8.5-10.1 [facility] Comment on above: Performed By: #### T SH, LIPID, BMP, LIVER ####[facility] [address] [place] [address]Dr. Sanjuana Kasper Chloride [Moles/Vol] 106 mmol/L Normal 98-107 [facility] Comment on above: Performed By: #### T SH, LIPID, BMP, LIVER ####[facility] Tr[address]reywe[address] [place] [address]Dr. Sanjuana Kasper CO2 [Moles/Vol] 26.9 mmol/L Normal 21.0-32.0 [facility] Comment on above: Performed By: #### T SH, LIPID, BMP, LIVER ####[facility] [address] [place], [place] [address]Dr. Sanjuana Kasper Creatinine [Mass/Vol] 0.98 mg/dL Normal 0.70-1.30 [facility] Comment on above: Performed By: #### T SH, LIPID, BMP, LIVER ####[facility] [address] [place], [place] [address]Dr. Sanjuana Kasper EGFR-AF LIBERIAN >60 Normal >=60 [facility] Comment on above: Performed By: #### T SH, LIPID, BMP, LIVER ####[facility] [address] [place] [address]Dr. Sanjuana Kasper EGFR-NON AF LIBERIAN >60 Normal >=60 [facility] Comment on above: Performed By: #### T SH, LIPID, BMP, LIVER ####[facility] [address] [place] [address]Dr. Sanjuana Kasper Glucose [Mass/Vol] 94 mg/dL Normal 74-106 [facility] Comment on above: Performed By: #### T SH, LIPID, BMP, LIVER ####[facility] [address] [place] [address]Dr. Sanjuana Kasper Potassium [Moles/Vol] 4.1 mmol/L Normal 3.5-5.1 [facility] Comment on above: Performed By: #### T SH, LIPID, BMP, LIVER ####[facility] [address] [place], [place] [address]Hf. Sanjuana Kasper Sodium [Moles/Vol] 141 mmol/L Normal 136-145 [facility] Comment on above: Performed By: #### T SH, LIPID, BMP, LIVER ####[facility] [address] [place], [place] [address]Qa. Sanjuana Kasper Urea nitrogen [Mass/Vol] 17.0 mg/dL Normal 7.0-18.0 [facility] Comment on above: Performed By: #### T SH, LIPID, BMP, LIVER ####[facility] [address]xc[address] [place] [phone]. Sanjuana Kasper Urea nitrogen/Creatinine [Mass ratio] 17.3 mg/mg Normal [facility] Comment on above: Performed By: #### T SH, LIPID, BMP, LIVER ####[facility] [address] [place], [place] [address]Wa. Sanjuana Kasper TSHon 03-06-2023 TSH 1.951 uIU/mL Normal 0.358-3.[address] [facility] Comment on above: Performed By: #### T SH, LIPID, BMP, LIVER #### [facility] [address] [place], [place] [address] FOOT LT WO [...] RAZ MATOS Date: 2022-12-20 14:53 Normal [facility] POINT OF CARE GLUCOSEon 11-0 Glucose [Mass/Vol] 94 mg/dL Normal 74-106 [facility] Comment on above: Performed By: #### P OCGLUC #### [facility] [address] [place] [address] [address] Sanjuana Kasper XR FOOT LT 2Von [...] MARÍA BRYSON Date: 2022-09-27 18:28 Normal [facility] Covid-19 PCR (CVDTB)on 08-26 SARS-CoV-2 (COVID-19) RNA DAISY+probe Ql (Unsp spec) Not detected Normal NOT DETECTED [facility] Comment on above: Result Comment: This test is not yet approved or cleared by the [place] FDA. When there are no FDA-approved or cleared tests available, and other criteria are met, FDA can make tests available under an emergency access mechanism called an Emergency Use Authorization (EUA). The EUA for this test is supported by the [place] of Health and Human Service's (HHS's) declaration [...] with SARS-CoV-2. Performed By: #### C VDTBH ####[facility] [address] [place] [id number]. Carlayazmin Ranjith PROF CHEM 8 (BAS METB)on Anion gap [Moles/Vol] 11.6 mmol/L Normal [facility] Comment on above: Performed By: #### B MP ####[facility] [address] [place] [address]Dr. Sanjuana Kasper Calcium [Mass/Vol] 8.6 mg/dL Normal 8.5-10.1 [facility] Comment on above: Performed By: #### B MP ####[facility] [address] [place] [address]Dr. Sanjuana Kasper Chloride [Moles/Vol] 107 mmol/L Normal 98-107 [facility] Comment on above: Performed By: #### B MP ####[facility] [address] [place], [place] [address]Dr. Sanjuana Kasper CO2 [Moles/Vol] 26.2 mmol/L Normal 21.0-32.[address] [facility] Comment on above: Performed By: #### B MP ####[facility] [address] [place], [place] [address]Dr. Sanjuana Kasper Creatinine [Mass/Vol] 1.28 mg/dL Normal 0.70-1.30 [facility] Comment on above: Performed By: #### B MP ####[facility] [address] [place], [place] [address]Dr. Sanjuana Kasper EGFR-AF LIBERIAN >60 Normal >=[address] [facility] Comment on above: Performed By: #### B MP ####[facility] [address] [place], [place] [address]Dr. Sanjuana Kasper EGFR-NON AF LIBERIAN 56 mL/min/1.73m2 Critically low >=60 [facility] Comment on above: Performed By: #### B MP ####[facility] [address] [place], [place] [address]Dr. Sanjuana Kasper Glucose [Mass/Vol] 121 mg/dL Critically high 74-106 [facility] Comment on above: Performed By: #### B MP ####[facility] [address] [place] [address]Dr. Sanjuana Kasper Potassium [Moles/Vol] 3.8 mmol/L Normal 3.5-5.1 [facility] Comment on above: Performed By: #### B MP ####[facility] [address] [place] [address]Dr. Sanjuana Kasper Sodium [Moles/Vol] 141 mmol/L Normal 136-145 [facility] Comment on above: Performed By: #### B MP ####[facility] [address] [place], [place] [address]Dr. Sanjuana Kasper Urea nitrogen [Mass/Vol] 24.0 mg/dL Critically high 7.0-18.0 [facility] Comment on above: Performed By: #### B MP ####[facility] [address] [place], [place] [address]Dr. Sanjuana Kasper Urea nitrogen/Creatinine [Mass ratio] 18.8 mg/mg Normal [facility] Comment on above: Performed By: #### B MP ####[facility] [address] [place], [place] [address]Dr. Sanjuana Kasper PROTIMEon 09-21-2022 INR Coag (PPP) [Relative time] 1.05 {INR} Normal [facility] Comment on above: Performed By: #### P TT, PT ####[facility] [address] [place], [place] [address]Dr. Sanjuana Kasper INR GUIDELINES SEE BELOW Normal [facility] Comment on above: Result Comment: VERONICA RED INR: 2.0 - 3.0 CONDITIONS NOT LISTED BELOW 2.5 - 3.5 FOR PROSTHETIC HEART VALVE REPLACEMENT 2.5 - 3.5 RECURRENT THROMBOSIS Performed By: #### P TT, PT ####[facility] [address] [place], [place] [address]Dr. Sanjuana Kasper PT Coag (PPP) [Time] 11.3 s Normal 9.0-11.6 [facility] Comment on above: Performed By: #### P TT, PT ####[facility] [address] [place], [place] [address]Hd. Sanjuana Kasper PTTon 09-21-2022 aPTT Coag (Bld) [Time] 30.0 s Normal 22.3-36.2 [facility] Comment on above: Performed By: #### P TT, PT ####[facility] [address] [place], [place] [address]Io. Sanjuana Kasper XR FOOT MOISES MIN 3 [...] MARÍA BRYSON Date: 2022-08-01 17:51 Normal [facility]25 SARS-CoV-2 (COVID-19) RNA DAISY+probe Ql (Unsp spec) Not detected Normal NOT DETECTED [facility] Comment on above: Result Comment: This test is not yet approved or cleared by the [place] FDA. When there are no FDA-approved or cleared tests available, and other criteria are met, FDA can make tests available under an emergency access mechanism called an Emergency Use Authorization (EUA). The EUA for this test is supported by the [employer] of Health and Human Service's (HHS's) [...] SARS-CoV-2. Performed By: #### C TB #### [facility] [address] [place] [address] Dr. Sanjuana Medina 04-20-2022 L -- ---- Specimen: [id number] Received: 04/20/22 Status: LENIN Trejo Num: [id number] Spec Type: Surgical Subm Dr: Miguel Astorga DO Tissues: A Debridement-Skin/Other Than Skin (SCALP) Procedures: HE Stain, Gross/Micro L3 ---- Patient Age/Sex Location Account Attending Physician ---- Oscar Escoto 72/M [place] [id number] Miguel Astorga DO ---- SPEC NUM: [id number] RECD: 04/20/22 STATUS: LENIN TREJO NUM: [id number] DEMARCUS: 04/20/22- SUBM DR: Miguel Astorga DO ENTERED: 04/20/[address] [facility] [address]: SPEC TYPE: Surgical DEPT: S ORDERED: [...] thin rim of owusu unremarkable appearing skin. Corporate Accounting Manager sections are submitted in one cassette labeled A1. Type of Fixative: 10% Neutral Buffered Formalin (NORM/ROHIT) Microscopic Description One glass slide with H E stained material has been examined. The microscopic findings support the above pathologic diagnosis. ---- Specimen: [id number] Received: 04/20/22 Status: LENIN Gisell Num: [id number] Spec Type: Surgical Subm Dr: Miguel Astorga DO Tissues: A Debridement-Skin/Other Than Skin (SCALP) Procedures: HE Stain, Gross/Micro L3 ---- Patient: TigistOscar Hines [id number] (Continued) ---- Specimen: [id number] Received: 04/20/22 (Continued) Signed (signature on file) Favio Chong MD 04/24/222025 ---- Specimen: [id number] Received: 04/20/22 Status: LENIN Trejo Num: [id number] Spec Type: Surgical Subm Dr: Miguel Astorga DO Tissues: A Debridement-Skin/Other Than Skin (SCALP) Procedures: HE Stain, Gross/Micro L3 ---- Patient: TigistOscar Hines [id number] (Continued) ---- Specimen: Received: 04/20/22 (Continued) CPT Codes 35498 ---- ---- Specimen: Received: 04/20/22 Status: LENIN Trejo Num: [id number] Spec Type: Surgical Subm Dr: Miguel Astorga DO Tissues: A Debridement-Skin/Other Than Skin (SCALP) Procedures: NATALIA Mcdonald, Gross/Micro L3 ---- Patient: Oscar Escoto [id number] (Continued) ---- Signed (signature on file) Favio Chong MD 04/24/222025 [facility] Basic Metabolic Panelon 03-26 Calcium [Mass/Vol] 9.1 mg/dL Normal 8.2-10.2 [facility] Comment on above: Result Comment: PERF ORMED BY: [place] [id number] PATHOLOGIST MANAGER SOCIAL RESPONSIBILITY ISABELLA MCKEON M.D. Performed By: #### B MP, CBC #### [address] Chloride [Moles/Vol] 103 mmol/L Normal 95-114 [facility] Comment on above: Performed By: #### B MP, CBC #### [address] CO2 [Moles/Vol] 25.0 mmol/L Normal 22.0-30.0 [facility] Comment on above: Performed By: #### B MP, CBC #### [address] Creatinine [Mass/Vol] 1.13 mg/dL Normal 0.64-1.27 [facility] Comment on above: Performed By: #### B MP, CBC #### [facility] [address] [place] [address] Estimated GFR ( Ariane > 60 [facility] Comment on above: Result Comment: GFR estimated reference range: According to KDOQI guidelines, <60 ml/min/1.73m2 is sufficient to diagnose a patient with chronic kidney disease. Performed By: #### B MP, CBC #### [place] [address] [place] Estimated GFR (Non- Am > 60 [facility] Comment on above: Performed By: #### B MP, CBC #### [place] [address] [place] Glucose [Mass/Vol] 102 mg/dL High 70-100 [facility] Comment on above: Result Comment: [place] Glucose Reference Range is dependent on time and content of last meal. Glucose of more than 200 mg/dL in a nonstressed, ambulatory subject supports the diagnosis of Diabetes Mellitus. ADA recommended reference range Performed By: #### B MP, CBC #### [facility] [address] [place] [address] [place] Potassium [Moles/Vol] 4.2 mmol/L Normal 3.5-5.1 [facility] Comment on above: Performed By: #### B MP, CBC #### [facility] [address] [place] [address] [place] Sodium [Moles/Vol] 137 mmol/L Normal 136-146 [facility] Comment on above: Performed By: #### B MP, CBC #### [facility] [address] [place] [id number] [place] Urea nitrogen [Mass/Vol] 18 mg/dL Normal 9-23 [facility] Comment on above: Performed By: #### B MP, CBC #### [facility] [address] [place] [id number] [place] Basophils Auto (Bld) [#/Vol] Ordered By: Miguel Astorga on 04-19-2022 Basophils (Bld) [#/Vol] 0.1 10*3/uL 0.0-0.2 [facility] Basophils/100 WBC Auto (Bld) Ordered By: Miguel Astorga on 04-19-2022 Basophils/100 WBC (Bld) 0.9 % [facility] Blood hemoglobin measurement (mass/volume)Ordered By: Miguel Astorga on 04-19-2022 Hemoglobin (Bld) [Mass/Vol] 14.3 g/dL 13.0-17.0 [facility] Blood leukocytes automated c ount (number/volume)Ordered By: Miguel Astorga on 04-19-2022 WBC (Bld) [#/Vol] 5.5 10*3/uL 4.5-11.0 [facility] COVID-19 FRMCon 04-19-2022 SARS-CoV-2 (COVID-19) RNA DAISY+probe Ql (Unsp spec) Negative Normal Negative [facility] Comment on above: Order Comment: Comme nt For surgery tomorrow Healthcare Worker?: N Result Comment: Testing for SARS-CoV-2 by RT-PCR This test was developed and its performance characteristics determined by [employer] ([employer]) and validated at the [facility]. This test has not been FDA cleared [...] is terminated or revoked sooner. PERFORMED BY: [place] [id number] PATHOLOGIST MANAGER SOCIAL RESPONSIBILITY ISABELLA MCKEON M.D. Performed By: #### C OVID 19 [facility] #### [address] COVID-19 Positive/NegativeOr dered By: Miguel Astorga on 04-19-2022 SARS-CoV-2 (COVID-19) N gene DAISY+probe Ql (Resp) Negative Negative [facility] Comment on above: Testing for SARS-CoV -2 by RT-PCR This test was developed and its performance characteristics determined by [employer] ([employer]) and validated at the [facility]. This test has not been FDA cleared [...] [#/Vol] 0.1 10*3/uL Normal 0.0-0.2 [facility] Comment on above: Result Comment: PERF ORMED BY: [place] [id number] PATHOLOGIST MANAGER SOCIAL RESPONSIBILITY ISABELLA MCKEON M.D. Performed By: #### B MP, CBC #### [address] Basophils/100 WBC (Bld) 0.9 % Normal . [facility] Comment on above: Performed By: #### B MP, CBC #### [address] Eosinophils (Bld) [#/Vol] 0.2 10*3/uL Normal 0.0-0.45 [facility] Comment on above: Performed By: #### B MP, CBC #### [address] Eosinophils/100 WBC (Bld) 3.9 % Normal . [facility] Comment on above: Performed By: #### B MP, CBC #### [address] Erythrocyte distribution width (RBC) [Ratio] 14.1 % Normal 12.0-14.8 [facility] Comment on above: Performed By: #### B MP, CBC #### [address] Hematocrit (Bld) [Volume fraction] 43.0 % Normal 38.8-50.0 [facility] Comment on above: Performed By: #### B MP, CBC #### [facility] [address] Hemoglobin (Bld) [Mass/Vol] 14.3 g/dL Normal 13.0-17.0 [facility] Comment on above: Performed By: #### B MP, CBC #### [facility] [address] Lymphocytes (Bld) [#/Vol] 1.4 10*3/uL Normal 1.00-4.8 [facility] Comment on above: Performed By: #### B MP, CBC #### [facility] [address] Lymphocytes/100 WBC (Bld) 25.7 % Normal . [facility] Comment on above: Performed By: #### B MP, CBC #### [facility] [address] MCH (RBC) [Entitic mass] 29.9 pg Normal 27.5-35.2 [facility] Comment on above: Performed By: #### B MP, CBC #### [facility] [address] MCV (RBC) [Entitic vol] 89.8 fL Normal 83.5-101 [facility] Comment on above: Performed By: #### B MP, CBC #### [facility] [address] Mean Corpuscular HGB Conc 33.3 g/dL Normal 32.5-35.6 [facility] Comment on above: Performed By: #### B MP, CBC #### [facility] [address] [place] [address] [place] Monocytes (Bld) [#/Vol] 0.4 10*3/uL Normal 0.0-0.8 [facility] Comment on above: Performed By: #### B MP, CBC #### [facility] [address] [place] [address] [place] Monocytes/100 WBC (Bld) 6.9 % Normal . [facility] Comment on above: Performed By: #### B MP, CBC #### [facility] [address] [place] [address] [place] Neutrophils (Bld) [#/Vol] 3.5 10*3/uL Normal 1.8-7.7 [facility] Comment on above: Performed By: #### B MP, CBC #### [facility] [address] [place] [address] [place] Neutrophils/100 WBC (Bld) 62.6 % Normal . [facility] Comment on above: Performed By: #### B MP, CBC #### [facility] [address] [place] [address] [place] Nucleated RBC/100 WBC (Bld) [Ratio] 0.1 % Normal 0-0.5 [facility] Comment on above: Performed By: #### B MP, CBC #### [facility] [address] Platelet mean volume (Bld) [Entitic vol] 8.9 fL Normal 6.6-10.1 [facility] Comment on above: Performed By: #### B MP, CBC #### [facility] [address] [place] [address] [place] Platelets (Bld) [#/Vol] 260 10*3/uL Normal 150-450 [facility] Comment on above: Performed By: #### B MP, CBC #### [facility] [address] [place] [address] [place] RBC (Bld) [#/Vol] 4.79 10*6/uL Normal 3.90-5.60 [facility] Comment on above: Performed By: #### B MP, CBC #### [facility] [address] [place] [address] [place] WBC (Bld) [#/Vol] 5.5 10*3/uL Normal 4.5-11.0 [facility] Comment on above: Performed By: #### B MP, CBC #### [facility] [address] [place] [address] [place] Creatinine and Glomerular fi ltration rate.predicted panel (S/P/Bld)Ordered By: Miguel Astorga on 04-19-2022 Creatinine [Mass/Vol] 1.13 mg/dL 0.64-1.27 [facility] ECG 12 lead ECGon 04-19-2022 ECG 12 lead ECG [facility] Main [place] [id number] Electrocardiograph Report Signed Patient: Oscar Escoto MR#: [id number] : 1950 Acct:[id number] Age/Sex: 72 / M ADM Date: 04/19/22 Loc: Room: Type: [facility] Attending Dr: Miguel Astorga DO Ordering Provider: [...] Suzie Garza MD 0 04/20/22 1516 Normal [facility] Eosinophils Auto (Bld) [#/Vo l]Ordered By: Miguel Astorga on 04-19-2022 Eosinophils (Bld) [#/Vol] 0.2 10*3/uL 0.0-0.45 [facility] Eosinophils/100 WBC Auto (Bl d)Ordered By: Miguel Astorga on 04-19-2022 Eosinophils/100 WBC (Bld) 3.9 % [facility] Erythrocyte distribution wid th Auto (RBC) [Ratio]Ordered By: Miguel Astorga on 04-19-2022 Erythrocyte distribution width (RBC) [Ratio] 14.1 % 12.0-14.8 [facility] Estimated glomerular filtrat ion rate (GFR) non- AmericanOrdered By: Miguel Astorga on 04-19-2022 GFR/1.73 sq M.predicted among non-blacks MDRD (S/P/Bld) [Vol rate/Area] > 60 mL/Min [facility] Hematocrit Auto (Bld) [Volum e fraction]Ordered By: Miguel Astorga on 04-19-2022 Hematocrit (Bld) [Volume fraction] 43.0 % 38.8-50.0 [facility] Laboratory - Hematology and Cell countsOrdered By: Miguel Astorga on 04-19-2022 Nucleated RBC/100 WBC (Bld) [Ratio] 0.1 % 0-0.5 [facility] Lymphocytes Auto (Bld) [#/Vo l]Ordered By: Miguel Astorga on 04-19-2022 Lymphocytes (Bld) [#/Vol] 1.4 10*3/uL 1.00-4.8 [facility] Lymphocytes/100 WBC Auto (Bl d)Ordered By: Miguel Astorga on 04-19-2022 Lymphocytes/100 WBC (Bld) 25.7 % [facility] MCH Auto (RBC) [Entitic mass ]Ordered By: Miguel Astorga on 04-19-2022 MCH (RBC) [Entitic mass] 29.9 pg 27.5-35.2 [facility] MCHC Auto (RBC) [Mass/Vol]Or dered By: Miguel Astorga on 04-19-2022 MCHC (RBC) [Mass/Vol] 33.3 g/dL 32.5-35.6 [facility] MCV Auto (RBC) [Entitic vol] Ordered By: Miguel Astorga on 04-19-2022 MCV (RBC) [Entitic vol] 89.8 fL 83.5-101 [facility] Monocytes Auto (Bld) [#/Vol] Ordered By: Miguel Astorga on 04-19-2022 Monocytes (Bld) [#/Vol] 0.4 10*3/uL 0.0-0.8 [facility] Monocytes/100 WBC Auto (Bld) Ordered By: Miguel Astorga on 04-19-2022 Monocytes/100 WBC (Bld) 6.9 % [facility] [facility] [place] Neutrophils Auto (Bld) [#/Vo l]Ordered By: Miguel Astorga on 04-19-2022 Neutrophils (Bld) [#/Vol] 3.5 10*3/uL 1.8-7.7 [facility] [place] Neutrophils/100 WBC Auto (Bl d)Ordered By: Miguel Astorga on 04-19-2022 Neutrophils/100 WBC (Bld) 62.6 % [facility] No Panel InformationOrdered By: Miguel Astorga on 04-19-2022 Estimated GFR () > 60 mL/Min [facility] Comment on above: GFR estimated refere nce range: According to KDOQI guidelines, <60 ml/min/1.73m2 is sufficient to diagnose a patient with chronic kidney disease. Pharmacy Creatinine Clearance (Chem N/A [facility] Platelet mean volume Auto (B ld) [Entitic vol]Ordered By: Miguel Astorga on 04-19-2022 Platelet mean volume (Bld) [Entitic vol] 8.9 fL 6.6-10.1 [facility] Platelets Auto (Bld) [#/Vol] Ordered By: Miguel Astorga on 04-19-2022 Platelets (Bld) [#/Vol] 260 10*3/uL 150-450 [facility] RBC Auto (Bld) [#/Vol]Ordere d By: Miguel Astorga on 04-19-2022 RBC (Bld) [#/Vol] 4.79 10*6/uL 3.90-5.60 [facility] Serum or plasma calcium dieter urement (mass/volume)Ordered By: Miguel Astorga on 04-19-2022 Calcium [Mass/Vol] 9.1 mg/dL 8.2-10.2 [facility] Serum or plasma chloride shashank surement (moles/volume)Ordered By: Miguel Astorga on 04-19-2022 Chloride [Moles/Vol] 103 mmol/L 95-114 [facility] Serum or plasma glucose dieter urement (mass/volume)Ordered By: Miguel Astorga on 04-19-2022 Glucose [Mass/Vol] 102 mg/dL 70-100 [facility] Comment on above: ADA recommended refe rence range Random Glucose Reference Range is dependent on time and content of last meal. Glucose of more than 200 mg/dL in a nonstressed, ambulatory subject supports the diagnosis of Diabetes Mellitus. Serum or plasma potassium me asurement (moles/volume)Ordered By: Miguel Astorga on 04-19-2022 Potassium [Moles/Vol] 4.2 mmol/L 3.5-5.1 [facility] Serum or plasma sodium measu rement (moles/volume)Ordered By: Miguel Astorga on 04-19-2022 Sodium [Moles/Vol] 137 mmol/L 136-146 [facility] Serum or plasma total carbon dioxide measurement (moles/volume)Ordered By: Miguel Astorga on 04-19-2022 CO2 [Moles/Vol] 25.0 mmol/L 22.0-30.0 [facility] Serum or plasma urea nitroge n measurement (mass/volume)Ordered By: Miguel Astorga on 04-19-2022 Urea nitrogen [Mass/Vol] 18 mg/dL 9-23 [facility] Vital Signs Date Time Vital Sign Value Performing Clinician Facility 03-29-2025 14:09040 Body height 188 cm North Chapin MD Work Phone: [facility] 03-29-2025 14:09040 Body mass index (BMI) [Ratio] 33.38 kg/m2 North Chapin MD Work Phone: [facility] 03-29-2025 14:090400 Body temperature 97.81 [degF] North Chapin MD Work Phone: [facility] 03-29-2025 14:090400 Body weight 117.94 kg North Chapin MD Work Phone: [facility] 03-29-2025 14:09-0400 Diastolic blood pressure 68 mm[Hg] North Chapin MD Work Phone: [facility] 03-29-2025 14:09-0400 Heart rate 64 /min North Chapin MD Work Phone: [facility] 03-29-2025 14:09-0400 Respiratory rate 18 /min North Chapin MD Work Phone: [facility] 03-29-2025 14:09-0400 SaO2% (BldA) [Mass fraction] 97 % North Chapin MD Work Phone: [facility] 03-29-2025 14:09-0400 Systolic blood pressure 142 mm[Hg] North Chapin MD Work Phone: [facility] 02-02-2025 15:24-0400 Body height 188 cm Bud SUBRAMANIAN Work Phone: [facility] 02-02-2025 15:24-0400 Body mass index (BMI) [Ratio] 31.97 kg/m2 Bud SUBRAMANIAN Work Phone: [facility] 02-02-2025 15:24-0400 Body weight 112.95 kg Bud SUBRAMANIAN Work Phone: [facility] 10-12-2024 15:33-0500 Blood Pressure Location Natali IRAHETA [facility] 10-12-2024 15:33-0500 Body temperature 98.6 [degF] Natali IRAHETA [facility] 10-12-2024 15:33-0500 Diastolic blood pressure 75 mm[Hg] Natali IRAHETA [facility] 10-12-2024 15:33-0500 Heart rate 60 /min Natali IRAHETA [facility] 10-12-2024 15:33-0500 Respiratory rate 16 /min Natali IRAHETA [facility] 10-12-2024 15:33-0500 Systolic blood pressure 128 mm[Hg] Natali IRAHETA [facility] 10-07-2024 13:39-0500 Body height 188 cm Cecilia Verhoff PA-C [facility] 10-07-2024 13:39-0500 Body mass index (BMI) [Ratio] 31.33 kg/m2 Cecilia Verhoff PA-C [facility] 10-07-2024 13:39-0500 Body weight 110.68 kg Cecilia Verhoff PA-C Work Phone: [facility] [employer] [facility] 10-07-2024 13:39-0500 Diastolic blood pressure 68 mm[Hg] Cecilia Verhoff PA-C [facility] 10-07-2024 13:39-0500 Heart rate 66 /min Cecilia Verhoff PA-C Work Phone: [facility] [employer] [facility] 10-07-2024 13:39-0500 SaO2% (BldA) [Mass fraction] 94 % Cecilia Verhoff PA-C Work Phone: [facility] [employer] [facility] 10-07-2024 13:39-0500 Systolic blood pressure 133 mm[Hg] Cecilia Verhoff PA-C Work Phone: [facility] 06-24-2023 15:47-0400 Blood Pressure Location Natali IRAHETA [facility] 06-24-2023 15:47-0400 Diastolic blood pressure 80 mm[Hg] Natali IRAHETA [facility] 06-24-2023 15:47-0400 Heart rate 68 /min Natali IRAHETA [facility] 06-24-2023 15:47-0400 Respiratory rate 16 /min Natali IRAHETA [facility] 06-24-2023 15:47-0400 Systolic blood pressure 130 mm[Hg] Natali IRAHETA [facility] 05-07-2022 14:57-0400 Blood Pressure Location Natali IRAHETA [facility] 05-07-2022 14:57-0400 Diastolic blood pressure 81 mm[Hg] Natali RIAHETA [facility] 05-07-2022 14:57-0400 Heart rate 72 /min Natalitasha IRAHETA [facility] 05-07-2022 14:57-0400 Respiratory rate 16 /min Natalitasha IRAHETA [facility] 05-07-2022 14:57-0400 Systolic blood pressure 149 mm[Hg] Natali IRAHETA [facility] 04-20-2022 15:00-0400 Diastolic blood pressure 58 mm[Hg] DO Miguel Murcek Work Phone: [facility] 04-20-2022 15:00-0400 Heart rate 72 /min DO Miguel Murcek Work Phone: [facility] 04-20-2022 15:00-0400 Respiratory rate 16 /min DO Miguel Murcek Work Phone: [facility] [place] 04-20-2022 15:00-0400 SaO2% (BldA) [Mass fraction] 95 % DO Miguel Murcek Work Phone: [facility] 04-20-2022 15:00-0400 Systolic blood pressure 118 mm[Hg] DO Miguel Murcek Work Phone: [facility] 04-20-2022 13:09-0400 Body temperature 97.5 [degF] DO Miguel Astorga Work Phone: [facility] 04-20-2022 13:09-0400 Inhaled oxygen flow rate 6 L/min DO Miguel Astorga Work Phone: [facility] 04-20-2022 12:40-0400 Body height 187.96 cm DO Miguel Astorga Work Phone: [facility] 04-20-2022 12:40-0400 Body mass index (BMI) [Ratio] 30.9 kg/m2 DO Miguel Astorga Work Phone: [facility] 04-20-2022 12:40-0400 Body weight 109.4 kg DO Miguel Astorga Work Phone: [facility] Encounters Encounter Date Encounter Type Care Provider Facility Start: 04-12-2025 ambulatory Natali Zelaya ty:[facility] Start: 03-29-2025 End: 03-29-2025 Bamboo flowsheet North Chapin MD Work Phone: [facility] Start: 03-29-2025 End: 03-29-2025 Bamboo flowsheet North Chapin MD Work Phone: [facility] Start: 03-29-2025 End: 03-29-2025 Patient encounter procedure North Chapin MD Work Phone: [facility] Work Phone: Start: 03-29-2025 End: 03-29-2025 Postop follow up visit related to original px North Chapin MD Work Phone: [facility] Comment on above: Medicare [...] Bamboo flowsheet Sakina Carpenter MD Work Phone: [facility] Start: 03-24-2025 End: 03-24-2025 Office outpatient visit 15 minutes Sakina Carpenter MD Work Phone: [facility] Comment on above: Seborrheic keratosis (Primary Dx); Actinic keratosis; Neoplasm of unspecified behavior of bone, soft tissue, and skin; Lentigines; History of malignant neoplasm of skin Start: 03-24-2025 End: 03-24-2025 ambulatory SAKINA CARPENTER Not Available Start: 2025 End: 2025 Bamboo flowsheet Nneka Hernandez VACUUM FURNACE OPERATOR Work Phone: [facility] Start: 2025 End: 2025 Bamboo flowsbest Hernandez VACUUM FURNACE OPERATOR Work Phone: [facility] Start: 2025 End: 2025 Postop follow up visit related to original px Nneka Hernandez VACUUM FURNACE OPERATOR Work Phone: [facility] Comment on above: Status post arthrosc opy of left knee (Primary Dx) Start: 2025 End: 2025 ambulatory NNEKA HERNANDEZ Not Available Start: 03-04-2025 ambulatory [facility] Start: 03-01-2025 End: 03-01-2025 ambulatory [facility] Facility:[facility] Start: 02-26-2025 End: 02-28-2025 Refill Nneka Hernandez VACUUM FURNACE OPERATOR Work Phone: [facility] Comment on above: Internal derangement of left knee (Primary Dx) Start: 02-03-2025 ambulatory [facility] Start: 02-02-2025 End: 02-02-2025 ambulatory BUD CUMMINS Not Available Start: 02-02-2025 End: 02-02-2025 Patient encounter procedure Bud Cummins PA Work Phone: [facility] Comment on above: Pre-op examination ( Primary Dx) Start: 02-02-2025 End: 02-02-2025 Preprocedural examination done Bud Cummins PA Work Phone: [facility] Work Phone: Start: 02-02-2025 End: 02-02-2025 Bamboo flowsheet Bud Cummins PA Work Phone: [facility] Start: 02-02-2025 End: 02-02-2025 Bamboo flowsheet Bud Cummins PA Work Phone: [facility] Start: 02-02-2025 End: 02-02-2025 ambulatory NORTH CHAPIN Facility:[facility] Start: 02-02-2025 Encounter for other preprocedural examination [facility] Start: 12-25-2024 End: 12-25-2024 Robyn Waldrop [...] ENRRIQUE ZIMMERMAN Not Available Start: 12-18-2024 ambulatory [facility] Start: 12-11-2024 End: 12-14-2024 Telephone encounter Mary Lou Diane NP Work Phone: [facility] Comment on above: RX Start: 12-10-2024 End: 12-10-2024 Telephone encounter Mary Lou Deckering VACUUM FURNACE OPERATOR Work Phone: [facility] Comment on above: MRI Start: 12-05-2024 End: 12-07-2024 Refill North Chapin MD Work Phone: [facility] Comment on above: Anxiety disorder, un specified type; Restless leg syndrome Start: 11-30-2024 End: 11-30-2024 Bamboo flowsheet Mary Lou Peterson Apling VACUUM FURNACE OPERATOR Work Phone: [facility] Start: 11-30-2024 End: 11-30-2024 Bamboo flowsheet Mary Lou Peterson Apling VACUUM FURNACE OPERATOR Work Phone: [facility] Start: 11-30-2024 End: 11-30-2024 Office outpatient visit 15 minutes Mary Lou Diane VACUUM FURNACE OPERATOR Work Phone: [facility] Comment on above: Left knee pain, unsp ecified chronicity (Primary Dx); Arthritis of left knee; Internal derangement of left knee Start: 11-30-2024 End: 11-30-2024 ambulatory MARY LOU DIANE Not Available Start: 11-13-2024 ambulatory [facility] Start: 11-10-2024 End: 11-10-2024 ambulatory [facility] Start: 11-09-2024 End: 11-09-2024 Bamboo flowsheet Mary Lou Deckering VACUUM FURNACE OPERATOR Work Phone: [facility] Start: 11-09-2024 End: 11-09-2024 Bamboo flowsheet Mary Lou Peterson Apling VACUUM FURNACE OPERATOR Work Phone: [facility] Start: 11-09-2024 End: 11-09-2024 Office outpatient visit 25 minutes Mary Lou Deckering VACUUM FURNACE OPERATOR Work Phone: [facility] Comment on above: Left knee pain, unsp ecified chronicity (Primary Dx); Arthritis of left knee Start: 11-09-2024 End: 11-09-2024 ambulatory MARY LOU Peterson APLING Not Available Start: 11-05-2024 End: 11-05-2024 Bamboo flowsheet Naomi Beltre CYBER INTEL PLANNER [facility] Start: 11-05-2024 End: 11-05-2024 Bamboo flowsheet Naomi Beltre CYBER INTEL PLANNER [facility] Start: 11-05-2024 End: 11-05-2024 ambulatory Naomi Beltre CYBER INTEL PLANNER [facility] Comment on above: Left knee pain, unsp ecified chronicity (Primary Dx) Start: 11-03-2024 End: 11-04-2024 ambulatory Franco Minnie CYBER INTEL PLANNER [facility] Comment on above: Left knee pain, unsp ecified chronicity (Primary Dx) Start: 11-03-2024 End: 11-03-2024 Bamboo flowsheet Franco Minnie CYBER INTEL PLANNER [facility] Start: 11-03-2024 End: 11-03-2024 Bamboo flowsheet Franco Minnie CYBER INTEL PLANNER [facility] Start: 10-29-2024 End: 10-29-2024 Bamboo flowsheet Yenny Rowe PT [facility] Start: 10-29-2024 End: 10-29-2024 Bamboo flowsheet Yenny Rowe PT [facility] Start: 10-29-2024 End: 10-29-2024 ambulatory Yenny Rowe PT [facility] Comment on above: Left knee pain, unsp ecified chronicity (Primary Dx) Start: 10-28-2024 ambulatory [facility] Start: 10-27-2024 End: 10-27-2024 ambulatory Franco Minnie CYBER INTEL PLANNER [facility] Comment on above: Left knee pain, unsp ecified chronicity (Primary Dx) Start: 10-27-2024 End: 10-27-2024 Bamboo flowsheet Franco Minnie CYBER INTEL PLANNER [facility] Start: 10-27-2024 End: 10-27-2024 Bamboo flowsheet Franco Minnie CYBER INTEL PLANNER [facility] Start: 10-20-2024 End: 10-20-2024 ambulatory Yenny Rowe PT [facility] Comment on above: Left knee pain, unsp ecified chronicity (Primary Dx) Start: 10-20-2024 End: 10-20-2024 Bamboo flowsheet Yenny Rowe PT [facility] Start: 10-20-2024 End: 10-20-2024 Bamboo flowsheet Yenny Rowe PT [facility] Start: 10-14-2024 ambulatory [facility] Start: 10-12-2024 End: 10-12-2024 ambulatory Natali IRAHETA Facility:[facility] Start: 10-12-2024 End: 10-12-2024 Patient encounter procedure Natali IRAHETA [facility] Start: 10-07-2024 End: 10-07-2024 ambulatory [facility] Start: 10-07-2024 End: 10-07-2024 Office outpatient visit 25 minutes [facility] RAMON Work Phone: [facility] Comment on above: Left knee pain, unsp ecified chronicity (Primary Dx) Start: 10-07-2024 End: 10-07-2024 ambulatory [facility] Start: 09-07-2024 ambulatory [facility] Start: 08-27-2024 ambulatory [facility] Start: 08-25-2024 ambulatory [facility] Start: 08-13-2024 End: 08-13-2024 Bamboo flowsheet Sakina [...] SAKINA CARPENTER Not Available Start: 07-24-2024 ambulatory [facility] Start: 06-24-2024 ambulatory [facility] Start: 06-11-2024 ambulatory [facility] Start: 06-09-2024 End: 06-09-2024 ambulatory [facility] Start: 05-15-2024 ambulatory [facility] Start: 05-13-2024 ambulatory [facility] Start: 03-24-2024 ambulatory [facility] Start: 03-17-2024 End: 03-17-2024 ambulatory [facility] Start: 03-17-2024 Patient encounter procedure Sakina Carpenter MD Work Phone: [facility] Start: 06-24-2023 End: 06-24-2023 Patient encounter procedure Natali IRAHETA [facility] Start: 04-09-2023 End: 04-09-2023 ambulatory MATTHIAS SAHA . Facility: Start: 03-18-2023 End: 03-18-2023 ambulatory Sakina Carpenter Facility:[facility] Start: 03-18-2023 End: 03-18-2023 ambulatory MD Sakina Carpenter Work Phone: [facility] Work Phone: Start: 03-18-2023 End: 03-18-2023 Departed Referred MD Sakina Carpenter Work Phone: [facility] [place] Work Phone: Start: 03-12-2023 End: 03-13-2023 ambulatory [...] Start: 09-26-2022 Encounter for preprocedural cardiovascular examination [facility] Start: 09-26-2022 Encounter for preprocedural laboratory examination [facility] Kyler [facility] Start: 09-24-2022 ambulatory BARBIE CANSECO Faci lity:[facility] [...] encounter procedure Natali IRAHETA [facility] Start: 04-27-2022 End: 06-04-[address] NATALI IRAHETA . Facility:[facility] Start: 04-20-2022 End: 04-20-2022 ambulatory Miguel Tracyshelby Facility:[facility] Start: 04-20-2022 End: 04-20-2022 Admission to same day surgery center DO Miguel Malusophiashelby Work Phone: [facility] [place] Start: 04-19-2022 End: 04-19-2022 ambulatory North Chapin Facility:[facility] Start: 04-19-2022 End: 04-19-2022 Patient encounter procedure DO Miguel Malusedrick Work Phone: [facility] Procedures Date Procedure Procedure Detail Performing Clinician Start: 03-24-2025 End: 03-24-2025 SKIN / NAIL BIOPSY Sakina Carpenter MD Work Phone: Start: 03-24-2025 CRYOTHERAPY SKIN LESION Sakina Carpenter MD Work Phone: Start: 11-09-2024 Arthrocentesis aspir &/inj major jt/bursa w/o us Mary Lou Diane VACUUM FURNACE OPERATOR Work Phone: Start: 11-09-2024 Radiologic exam both knees standing anteropost Mary Lou Diane VACUUM FURNACE OPERATOR Work Phone: Start: 08-13-2024 SKIN / NAIL BIOPSY Get Carpenter MD Work Phone: Start: 08-13-2024 CRYOTHERAPY SKIN LESION Sakina Carpenter MD Work Phone: Start: 04-09-2023 Colonoscopy Sakina watson MD Work Phone: Start: 04-27-2022 PSA screening [facility] Comment on above: Performed By: #### P SAD ####[place] [id number] [place] [id number] Kasper Start: 04-20-2022 OR Cheek Lesion Exc [...] 04-09-2033 Screening for malignant neoplasm of colon [facility] Start: 12-06-2032 DTaP,Tdap and Td Vaccines (2 - Tdap) DTaP,Tdap and Td Vaccines (2 - Tdap) [facility] Start: 10-07-2025 Adult BMI Screening Adult BMI Screening [facility] Start: 10-07-2025 Tobacco Screening Tobacco Screening [facility] Start: 09-29-2025 End: 09-29-2025 Patient encounter procedure 09/29/2025 1:45 PM EST [facility] [address] [place] [address] North Chapin MD [address] [place] [address] [facility] Start: 09-28-2025 End: 09-28-2025 Patient encounter procedure 09/28/2025 3:05 PM EST Office Visit [facility] [address] [place] [address] Sakina Carpenter MD [address] [place] [address] [facility] Start: 04-12-2025 End: 04-12-2025 Patient encounter procedure 04/12/2025 3:15 PM EDT Office Visit [facility] [address] [place] [address] Nneka Hernandez, VACUUM FURNACE OPERATOR [address] [place] [address] [facility] Start: 03-29-2025 End: 03-29-2026 Basic metabolic 1998 panel - Serum or Plasma Basic metabolic panel Lab Routine Encounter for long-term (current) use of medications Expected: 03/29/2025 (Approximate), Expires: 03/29/2026 [facility] Comment on above: Expected: 03/29/2025 (Approximate), Expi res: 03/29/2026 Start: 03-29-2025 End: 03-29-2026 Hemoglobin A1c/Hemoglobin.total in Blood Hemoglobin A1c Lab Routine Prediabetes Expected: 03/29/2025 (Approximate), Expires: 03/29/2026 [facility] Work Phone: Comment on above: Expected: 03/29/2025 (Approximate), Expi res: 03/29/2026 Start: 03-29-2025 End: 03-29-2026 Lipid 1996 panel - Serum or Plasma Lipid panel Lab Routine Dyslipidemia (CMS/HCC) Expected: 03/29/2025 (Approximate), Expires: 03/29/2026 [facility] Comment on above: Expected: 03/29/2025 (Approximate), Expi res: 03/29/2026 Start: 03-29-2025 End: 03-29-2025 Patient encounter procedure [facility] Comment on above: Arrived Start: 03-24-2025 End: 03-24-2025 Patient encounter procedure 03/24/2025 1:00 PM EDT Office Visit [facility] [address] [place] [address] Sakina Carpenter MD [address] [place] [address] Arrived [facility] Comment on above: Arrived Start: 03-23-2025 End: 03-23-2025 Patient encounter procedure [facility] Start: 03-22-2025 End: 03-22-2025 Patient encounter procedure 03/22/2025 11:30 AM EDT Office Visit [facility] [address] [place] [address] North Chapin MD [address] [place] [address] [facility] Start: 03-17-2025 Medicare Annual Wellness (AWV) Medicare Annual Wellness (AWV) [facility] Start: 2025 End: 2025 Patient encounter procedure [facility] Comment on above: Arrived Start: 02-22-2025 End: 02-22-2025 Patient encounter procedure 02/22/2025 1:35 PM EDT Office Visit [facility] [address] [place] [phone] Sakina Carpenter MD [address] [place], [place] [id number] [facility] Start: 02-11-2025 End: 02-11-2025 Patient encounter procedure 02/11/2025 1:05 PM EDT Office Visit [facility] [address] [place] [phone] Sakina Carpenter MD [address] [place] [address] [facility] Start: 02-02-2025 End: 02-02-2025 Patient encounter procedure 02/02/2025 3:00 PM EDT Office Visit [facility] [address] [place] [address] Bud Cummins, PA [address] [place] [address] [facility] Start: 12-25-2024 End: 12-25-2024 Patient encounter procedure [facility] Comment on above: Arrived Start: 12-09-2024 End: 12-09-2024 Patient encounter procedure 12/09/2024 1:30 PM EST Office Visit [facility] [address] [place] [phone] Cecilia Anderson, RAMON [address] [place] [address] [facility] Start: 11-30-2024 End: [...] Treatment [facility] [address] [facility] [address] [place] [address] Yenny Rowe, PT [facility] Start: 11-12-2024 End: 11-12-2024 ambulatory 11/12/2024 5:00 PM EST Treatment [facility] [address] [facility] [address] [place] [address] Naomi Beltre, CYBER INTEL PLANNER [facility] Start: 11-09-2024 End: 11-09-2024 ambulatory 11/09/2024 4:00 PM EST Treatment [facility] [address] [place] [address] Yenny Rowe, PT [facility] Start: [...] DERM [address] [place] [phone] Sakina Carpenter MD [address] [place] [address] Arrived [facility] Comment on above: Arrived Start: 07-26-2024 COVID-19 Vaccine ( season) COVID-19 Vaccine ( season) [facility] Start: 07-26-2024 Influenza vaccination Influenza Vaccine (#1) [facility] Start: 03-18-2023 Superficial Wound Culture Superficial Wound Culture [facility] Start: 2017 Fall Risk Screening Fall Risk Screening [facility] Start: 1970 Adult BMI Follow Up Plan Adult BMI Follow Up Plan [facility] Start: 1962 Depression Screening Depression Screening [facility] Start: 1950 Medicare Annual Wellness (AWV) Medicare Annual Wellness (AWV) [facility] Start: 1950 Screening for malignant neoplasm of colon [facility] Dermatopathology exam Dermatopat hology exam Pathology and Cytology Timed Neoplasm of unspecified behavior of bone, soft tissue, and skin Release Upon Ordering for 1 Occurrences starting 08/13/2024 [facility] Work Phone: Comment on above: Release Upon Ordering for 1 Occurrences starting 08/13/2024 Dermatopathology exam Dermatopat hology exam Pathology and Cytology Timed Neoplasm of unspecified behavior of bone, soft tissue, and skin Release Upon Ordering for 1 Occurrences starting 03/24/2025 [facility] Work Phone: Comment on above: Release Upon Ordering for 1 Occurrences starting 03/24/2025 SARS-CoV-2 (COVID-19 ) N gene [Presence] in Respiratory specimen by DAISY with probe detection [facility] Work Phone: End: 10-07-2025 XR Knee - left 3 Views X-ray knee left 3 views Imaging Routine Left knee pain, unspecified chronicity 1 Occurrences starting 10/07/2024 until 10/07/2025 [facility] Work Phone: Comment on above: 1 Occurrences starting 10/07/2024 until 10/07/2025 XR Knee - left 3 Views X-ray kne e left 3 views Imaging Routine Left knee pain, unspecified chronicity 10/07/2024 2:40 PM EST [facility] Immunizations Immunization Date Immunization Notes Care Provider [facility] 08-09-2024 influenza virus vacc ine, unspecified formulation Natali IRAHETA [facility] 08-22-2023 influenza virus vacc ine, unspecified formulation Sakina Carpenter MD Work Phone: [facility] 09-02-2022 influenza virus vacc ine, unspecified formulation Natali MynewMD [facility] 10-05-2021 SARS-CoV-2 (COVID-19 ) mRNA BNT-162b2 vax Natali MynewMD [facility] 08-14-2021 influenza virus vacc ine, unspecified formulation Natali MynewMD [facility] 08-14-2021 pneumococcal polysaccharide vaccine, 23 valent Natali IRAHETA [facility] 03-22-2021 SARS-CoV-2 (COVID-19 ) mRNA BNT-162b2 vax Natali MynewMD [facility] Comment on above: Result Comment: donna gonzalez 03-22-2021 SARS-CoV-2 (COVID-19 ) mRNA-1273 vaccine Natali IRAHETA [facility] 03-01-2021 SARS-CoV-2 (COVID-19 ) mRNA BNT-162b2 vax Natali IRAHETA [facility] 02-23-2021 SARS-CoV-2 (COVID-19 ) mRNA BNT-162b2 vax Natali IRAHETA [facility] Comment on above: Result Comment: donna gonzalez 08-05-2020 influenza virus vacc ine, unspecified formulation Natali MynewMD [facility] 08-05-2020 pneumococcal conjuga te vaccine, 13 valent Natali MynewMD [facility] 08-31-2019 influenza virus vacc ine, unspecified formulation Busap [facility] 07-08-2018 influenza virus vacc ine, unspecified formulation Natali MynewMD [facility] 07-08-2018 zoster vaccine recombinant Busap [facility] 03-25-2018 zoster vaccine recombinant Busap [facility] 08-08-2017 influenza virus vacc ine, unspecified formulation Busap [facility] 07-26-2017 influenza virus vacc ine, unspecified formulation Natalitasha IRAHETA [facility] 07-19-2016 influenza virus vacc ine, unspecified formulation Natali IRAHETA [facility] 09-03-2015 influenza virus vacc ine, unspecified formulation Natali IRAHETA [facility] Payers Date Payer Category Payer Medicaid AETNA MEDICARE A DVANTAGE [id number] 2022 Medicare AETNA MEDICARE A DVANTAGE AETNA MEDICARE REPLACEMENT [id number] 2022-Present [address] [place] [address] [id number] 2022 Self-pay [id number] 2021 Medicare HMO AETNA MEDICARE [id number] 1959 Private Health Insurance [id number] 1952 Unknown [id number] 2.16.840.1.778932.3.579.2. 593 1952 Unknown [id number] 2.16.840.1.481937.3.579.2. 593 1952 Unknown [id number] 2.16.840.1.069964.3.579.2. 593 1952 Unknown [id number] 2.16.840.1.520502.3.579.2. 593 1952 Unknown [id number] 2.16.840.1.226922.3.579.2. 593 1952 Unknown [id number] 2.16.840.1.457135.3.579.2. 593 1952 Unknown [id number] 2.16.840.1.321613.3.579.2. 593 1952 Unknown [id number] 2.16.840.1.090043.3.579.2. 593 1952 Unknown [id number] 2.16.840.1.112156.3.579.2. 593 1952 Unknown [id number] 2.16.840.1.678070.3.579.2. 593 1952 Unknown [id number] 2.16.840.1.419280.3.579.2. 593 1952 Unknown [id number] 2.16.840.1.879057.3.579.2. 593 1952 Unknown [id number] 2.16.840.1.088630.3.579.2. 593 1952 Unknown [id number] 2.16.840.1.040929.3.579.2. 593 1952 Unknown [id number] 2.16.840.1.188909.3.579.2. 593 1952 Unknown [id number] 2.16.840.1.131331.3.579.2. 1286 1952 Unknown [id number] 2.16.840.1.392231.3.579.2. 1286 1952 Unknown [id number] 2.16.840.1.993585.3.579.2. 727 1952 Unknown [id number] 2.16.840.1.459207.3.579.2. 727 1952 Unknown [id number] 2.16.840.1.164274.3.579.2. 125 1952 Unknown [id number] 2.16.840.1.297812.3.579.2. 125 1952 Unknown [id number] 2.16.840.1.220065.3.579.2. 125 1952 Unknown [id number] 2.16.840.1.952861.3.579.2. 125 1952 Unknown [id number] 2.16.840.1.655240.3.579.2. 1259 1952 Unknown [id number] 2.16.840.1.873883.3.579.2. 1259 1952 Unknown [id number] 2.16.840.1.779948.3.579.2. 125 1952 Unknown [id number] 2.16.840.1.689116.3.579.2. 125 1952 Unknown [id number] 2.16.840.1.902692.3.579.2. 125 1952 Unknown [id number] 2.16.840.1.953183.3.579.2. 1259 1952 Unknown [id number] 2.16.840.1.671038.3.579.2. 9 1952 Unknown [id number] 2.16.840.1.276542.3.579.2. 1259 1952 Unknown [id number] 2.16.840.1.990550.3.579.2. 1258 1952 Unknown [id number] 2.16.840.1.555180.3.579.2. 9 1952 Unknown [id number] 2.16.840.1.656169.3.579.2. 718 1952 Unknown [id number] 2.16.840.1.795466.3.579.2. 718 Private Health Insurance Aetna Mcr PFFS Non Pt [id number] Unknown [id number] Unknown [id number] 2.16.840.1.690237.3.579.2. 531 Unknown [id number] 2.16.840.1.839670.3.579.2. 531 Unknown [id number] 2.16.840.1.223829.3.579.2. 531 Social History Date Type Detail Facility Start: 05-07-2022 End: 08-12-2023 Tobacco smoking status Never smoked tobacco (finding) [facility] Work Phone: Start: 02-03-2024 End: 03-29-2025 Sex Assigned At Male [facility] Start: 1950 Sex Assigned At Male [facility] Tobacco smoking status Never [facility] Start: 01-29-2023 End: 08-12-2023 Tobacco use and exposure Smokeless tobacco non-user [facility] Start: 08-13-2024 End: 03-29-2025 Alcoholic beverage intake Ex-drinker (finding) [facility] Start: 02-03-2024 End: 03-29-2025 History of Social function [facility] Do you belong to any clubs or organizations such as yarsani groups, unions, fraternal or athletic groups, or [...] beverage intake Current drinker of alcohol (finding) [facility] Start: 06-30-2015 Sex Male (finding) [facility] Start: 10-11-2020 Gender identity Identifies as male gender (finding) [facility] Start: 10-11-2020 Sexual orientation Heterosexual (finding) [facility] Medical Equipment Procedure Code Equipment Code Equipment Origin al Text Equipment Identifier Dates Mesh Brd Perfix Plug Med Rpl 17176 Rpl [id number] - [id number] - [id number] Start: 09-23-2018 Mesh Brd Preshap e Hawkins 3x5 Rpl [id number] - [id number] - [id number] Start: 09-23-2018 Comment on above: Description: 13.7 cm x 5.9 cm cut to fit defect Linr Actb 36mm F Ntrl E1 Clr - [id number] Start: 07-10-2017 Hd Fem 36mm Opt G7 Blx D Hip Rpl 650-1057 - [id number] Start: 07-10-2017 Slv Fem Opt +3mm Tpr Hip Blx D Rpl 650-1067 - [id number] Start: 07-10-2017 Stm Fem 125mm 13 3d 20 Hi Os - [id number] Start: 07-10-2017 Shell [id number] Start: 07-10-2017 Goals Date Patient Goal Desired Activity /State Personal health goal Comment on above: Formatting of this n ote might be different from the original. Evaluation of progress towards goal: Maximize work with PT at discharge to strengthen R hip Functional Status Date Assessment Result Facility 03-29-2025 Patient Health Quest ionnaire 2 item (PHQ-2) [Reported] [facility] 10-12-2024 Functional Status N/A [facility] 06-24-2023 Functional Status N/A [facility] 05-07-2022 Functional Status N/A [facility] Clinical Notes 05-07-2022 to 03-29-2025 [place] [...] wasn't as active. Plans on returning to [facility] several days a week. Resumed walking [...] Problem List Items Addressed This Visit Dyslipidemia (CMS/[facility]) Relevant Orders Lipid panel Prediabetes Relevant Orders [...] disorder, unspecified type documented in this encounter [facility] 03-24-2025 History of Present illness Narrative Images [...] ACTINIC KERATOSIS (9) Left Buccal Cheek, Left Yazdanism, Right Buccal Cheek, Right Dorsal Hand (2), [...] limited to risks of scarring, darker or branch assistant pigmentary changes, recurrence, incomplete removal and infection. [...] skin lesion - Left Buccal Cheek, Left Yazdanism, Right Buccal Cheek, Right Dorsal Hand (2), [...] lesion: 2.0 x 1.7 cm Right Forearm [place] scaly plaque Lesion biopsy Type of biopsy: [...] lesion: 2.3 x 2.0 cm Left sanders [place] papule Lesion biopsy Type of biopsy: tangential [...] 6 months-skin check documented in this encounter [facility] 2025 History of Present illness Narrative Images [...] develop for requiring urgent evaluation. Nneka Hernandez [employer] documented in this encounter [facility] 03-08-2025 Note [id number] [facility] 03-01-2025 Note [facility] SURGERY Clinical Discharge Summary PERSON INFORMATION Name OSCAR ESCOTO Age 74 Years 1950 Sex MALE Language Uruguayan PCP [place] Marital Status Phone Med Service Ambulatory Surgery Acct# Arrival 03/01/2025 08:45:44 Visit Reason SURGERY - LEFT KNEE ARTHROSOCPY - LATERAL MENISCUS TEAR Acuity LOS 066 02:01 Address: [address] [place] [address] Comment: PROVIDER INFORMATION VITALS INFORMATION Vital Sign [...] every day. Comme (more content not included)... [facility] 02-26-2025 Telephone encounter Note Post op pain rx. PDMP reviewed [facility] 02-26-2025 Miscellaneous Notes Post op pain rx. PDMP reviewed documented in this encounter [facility] 02-02-2025 History of Present illness Narrative Images from the original note were not included. GENERAL HISTORY AND PHYSICAL: NAME: Oscar Escoto : 1950 HISTORY OF PRESENT ILLNESS: Oscar Escoto is an 74 y.o. @ male. Here for surgery instructions H&P LT KNEE SCOPE 03/01/25 @ [facility] PAST MEDICAL HISTORY: Past Medical History: [...] 03/01/25 @ [facility] PAT 02/02/25 @ 3PM [facility] PAT 02/02/25 @ [facility] Follow up for Post-Op 03/15/25 @ [facility]. documented in this encounter [facility] 12-25-2024 History of Present illness Narrative Images from the original note were not included. HISTORY OF PRESENT ILLNESS: EST PT Oscar Escoto is an 74 y.o. @ male. (EST PT-PREVIOUSLY SAW [facility] DIANE ON 11/30/24) RECHECK (L) KNEE PAIN; HERE FOR MRI RESULTS DONE ON 12/18/24 AT [facility]. XRAY B/L AP WB KNEES 11/09/24 IN [facility] XRAY (L) KNEE 10/07/24 [facility] MRI (L) KNEE 12/18/24 [facility] DEPO MEDROL INJ 11/09/24 - 50% IMPROVEMENT P.T (#5 VISITS 10/20/24- 11/05/24) [facility] KAIN PAIN MGMT 10/07/24 [facility] [...] requiring urgent evaluation. documented in this encounter [facility] 12-11-2024 Telephone encounter Note Patient called stating that [facility] in [place] did not receive the rx needed prior to MRI being done. Please advise. [facility] 12-11-2024 Miscellaneous Notes Patient called stating that [facility] in [place] did not receive the rx needed prior to MRI being done. Please advise. documented in this encounter [facility] 12-10-2024 Telephone encounter Note Faxed referral, MRI order, office notes and XR report to [facility]. [facility] 12-10-2024 Miscellaneous Notes Faxed referral, MRI order, office notes and XR report to [facility]. Patient called and left that he spoke with [facility]. They received authorization for his MRI. They have not received requested notes so they cannot schedule him until they receive the notes. Please advise. documented in this encounter [facility] 12-10-2024 Telephone encounter Note Patient called and left vm that he spoke with [facility]. They received authorization for his MRI. They have not received requested notes so they cannot schedule him until they receive the notes. Please advise. [facility] 11-30-2024 History of Present illness Narrative Images [...] f/u s/p MRI to be done at [facility]. documented in this encounter [facility] 11-10-2024 Note [place] Electrophysiology Consult Note Reason for visit: Dizziness/SVT [...] years ago here he was admitted to [facility] with A. fib with rapid ventricular [...] 48 hours from 12/24/2021 to 12/10/2021 at [facility] was reviewed by me and shows PVC burden of less than 1% and PVC count of 6%. Occasional nonsustained atrial tachycardia few beats seen but no atrial fibrillation noted. No ventricular tachycardia noted EKG 10/17/2021 shows sinus rhythm with normal intervals Echocardiogram done at [facility] on 09/06/2021 shows ejection fraction of 60% [...] spondylosis without myel (more content not included)... [facility] 11-09-2024 History of Present illness Narrative [...] He has been going to therapy in [facility] with improvement in strength but continues to [...] the left knee done on 10/08/24 at [facility] reveals tricompartmental arthritis, no fractures noted. [...] he understands this documented in this encounter [facility] 10-29-2024 History of Present illness Narrative Physical [...] to be instructed in home exercise program. [employer] Goals: To be met in 10 [...] sign below. Date: documented in this encounter [facility] 10-20-2024 History of Present illness Narrative Physical [...] to be instructed in home exercise program. [employer] Goals: To be met in 10 [...] sign below. Date: documented in this encounter [facility] 10-12-2024 Hospital Discharge instructions Patient Education 10/12/2024 [...] Follow these instructions at home: Medicines Take nkus-wam-tcjkzeu and prescription medicines only as told by [...] provider. Document Revised: 06/20/2022 Document Reviewed: 06/20/2022 [employer] Patient Education 2023 [employer] Follow Up Care 06/24/2023 16:43:14 With:ESEQUIEL RUSSELL, Natali Gonzalez, URL Address: [facility] [address] , [place] [address]- [phone] When: Unknown Comments:6 mos [facility] Maik 10-12-2024 Note Patient Education Urology [...] these instructions at home: Medicines ??? Take uvwc-jjp-qjjmovs and prescription medicines only as told by [...] by your heal (more content not included)... [facility] 10-07-2024 History of Present illness Narrative [facility] [address] [place] [address] Patient: Oscar Escoto Sex: male : 1950 [...] Impairment. Past Medical History: Diagnosis Date Afib ([facility]) Back pain lumbar BPH (benign prostatic hyperplasia) Cancer ([facility]) multiple basal cell Chronic pain disorder Hip [...] 02/08/2023 Performed by Umair Decker MD at [facility] INJE[facility] BURSA LARGE JOINT: left ischial bursa Left 08/16/2023 Performed by Umair Decker MD at [facility] INJECTION LARGE JOINT BURSA Right 04/12/2017 Performed by Umair Decker MD at [facility] MEDIAL BRANCH NERVE BLOCK: right [id number] [id number] Right 08/12/2020 Performed by Umair Decker MD at [facility] INSERTION LOOP RECORDER 01/24/2023 Dr Amin at [facility] JOINT REPLACEMENT right hip ORTHOPEDIC SURGERY Left 2013 wrist fixation RADIO FREQUENCY ABLATION: right [id number] Right 09/23/2020 Performed by Umair Decker MD at [facility] REPAIR HERNIA INGUINAL WITH MESH Right 09/23/2018 Performed by Ventura Watson DO at [facility] REPAIR HERNIA UMBILICAL WITH MESH N/A 09/23/2018 Performed by Ventura Watson DO at [facility] REPLACEMENT TOTAL JOINT ANTERIOR SUPINE INTERMUSCULAR HIP Right 07/10/2017 Performed by Schuyler Ambrocio MD at [facility] TONSILLECTOMY WRIST SURGERY No Known Allergies [...] Resource Strain: Low Risk (02/03/2024) Received from [facility] Overall Financial Resource Strain (CARDIA) Difficulty of Paying Living Expenses: Not hard at all Food Insecurity: No Food Insecurity (10/07/2024) Hunger Screening Food Insecurity - Worry: Never True Food Insecurity - Inability: Never True Transportation Needs: No Transportation Needs (02/03/2024) Received from [facility] PRAPARE - Transportation Lack of Transportation (Medical): No Lack of Transportation (Non-Medical): No Physical Activity: Sufficiently Active (02/03/2024) Received from [facility] Exercise Vital Sign Days of Exercise per Week: 3 days Minutes of Exercise per Session: 60 min Stress: No Stress Concern Present (02/03/2024) [facility] [place] of Occupational Health - Occupational Stress Questionnaire Feeling of Stress : Not at all Social Connections: Moderately Integrated (02/03/2024) Received from [facility] Social Connection and Isolation Panel [NHANES] Frequency of Communication with Friends and Family: Once a week Frequency of Social Gatherings with Friends and Family: Once a week Attends Advent Services: More than 4 times per year Active Member of Clubs or Organizations: Yes Attends Club or Organization Meetings: More than 4 times per year Marital Status: Interpersonal Safety: Unknown (01/16/2024) [facility] Fear of Current or Ex-Partner: Not on file Emotionally Abused: Not on file Physically Abused: Not on file Sexually Abused: Not on file Physically or Sexually Abused: Not on file Housing Instability: Low Risk (02/03/2024) Received from [facility] Housing Stability Vital Sign Unable to Pay [...] PA-C 10/07/24 1437 documented in this encounter [facility] 08-13-2024 History of Present illness Narrative Images [...] Scalp (5), Right Anterior Neck, Right [place], Right Parotid Area, Right Posterior Neck, Right Preauricular Area, Right [place], Right Yazdanism, Right Temporal Scalp Erythematous scaly papules Patient [...] limited to risks of scarring, darker or branch assistant pigmentary changes, recurrence, incomplete removal and infection. [...] Scalp (5), Right Anterior Neck, Right [place], Right Parotid Area, Right Posterior Neck, Right Preauricular Area, Right [place], Right Yazdanism, Right Temporal Scalp 6. History of basal [...] months skin check documented in this encounter [facility] 06-09-2024 Note [facility] Electrophysiology Consult Note Reason [...] years ago here he was admitted to [facility] with A. fib with rapid ventricular [...] 48 hours from 12/24/2021 to 12/10/2021 at [facility] was reviewed by me and shows PVC burden of less than 1% and PVC count of 6%. Occasional nonsustained atrial tachycardia few beats seen but no atrial fibrillation noted. No ventricular tachycardia noted EKG 10/17/2021 shows sinus rhythm with normal intervals Echocardiogram done at [facility] on 09/06/2021 shows ejection fraction of 60% [...] apnea Varicocele Epididymitis (more content not included)... [facility] 03-17-2024 Note Patient here for fol low up EP study and ablation. He went into afib during procedure and was started on Xarelto. Denies chest pain, SOB, lightheadedness, and bleeding on Xarelto. Says his palpitations have subsided. Review of Systems Musculoskeletal: Positive for arthritis and joint pain. All other systems reviewed and are negative. [facility] 03-17-2024 Note Cardiovascular Medic [facility] SUBJECTIVE Chief Complaint Patient [...] episode of global amnesia driving back from [place] in early January, - this was prior [...] Final Atrial Rate 02/12/2024 61 BPM Final NM Interval 02/12/2024 184 ms Final QRS DURATION 02/12/2024 102 ms Final QT Interval 02/12/2024 424 ms Final QTC CALCULATION(BAZETT) 02/12/2024 426 ms Final P [place] 02/12/2024 39 degrees Final R-[place] 02/12/2024 -11 degrees Final T Wave [place] 02/12/2024 44 degrees Final Ventricular Rate 02/12/2024 55 BPM Final Atrial Rate 02/12/2024 55 BPM Final NM Interval 02/12/2024 198 ms Final QRS DURATION 02/12/2024 104 ms Final QT Interval 02/12/2024 470 ms Final QTC CALCULATION(BAZETT) 02/12/2024 449 ms Final P [place] 02/12/2024 34 degrees Final R-[place] (more content not included)... [facility] 06-24-2023 Hospital Discharge instructions Patient [...] urethra. Follow these instructions at home: Take ijko-klw-orulorm and prescription medicines only as told by [...] provider. Document Revised: 05/30/2022 Document Reviewed: 05/30/2022 [employer] Patient Education 2022 [employer]. Follow Up Care 05/07/2022 15:53:47 With:ESEQUIEL RUSSELL, Natali Gonzalez, URL Address: [facility] [address] , [place] [address] [phone] When: Unknown Comments:3 yr w/ PSA [facility] 12-18-2022 Note PROCEDURE: XR FOOT L T [...] by: MARÍA BRYSON Date: 2022-12-18 09:32 [facility] 11-06-2022 Note PROCEDURE: XR FOOT L [...] authenticated by: RAZ MATOS Date: 2022-11-06 15:27 [facility] 10-17-2022 Note PROCEDURE: XR FOOT L [...] by: RAZ MATOS Date: 2022-10-17 10:46 [facility] 09-27-2022 Note PROCEDURE: XR FOOT L [...] by: MARÍA BRYSON Date: 2022-09-27 18:29 [facility] 05-15-2022 Note PROCEDURE: XR FOOT R [...] authenticated by: MARÍA BRYSON Date: 2022-05-15 21:39 [facility] 05-07-2022 Hospital Discharge instructions Patient Education [...] for grilled meats. Avoid extra toppings like ylons, cheese, or fried items. Ask for the [...] 11/11/2006 Document Revised: 07/31/2019 Document Reviewed: 10/11/2017 [employer] Patient Education 2020 [email or web address] 05/07/2022 15:46:01 Benign Prostatic Hyperplasia Benign Prostatic [...] urethra. Follow these instructions at home: Take qiyk-bwk-wfycflu and prescription medicines only as told by [...] 11/11/2006 Document Revised: 10/06/2019 Document Reviewed: 12/16/2017 [employer] Patient Education 2020 [employer]. Follow Up Care 09/04/2021 16:41:31 With:ESEQUIEL RUSSELL, TEX Gonzalez Address: [facility] [address] , [place] [address] [phone] When:Within 1 Year(s) Comments:f/u in 1 year with PSA and [facility]IM[facility] [facility] Evaluation + Plan note Future Appointments Appointment Date:05/13/2023 03:00:00 PM Scheduled Provider:Natali IRAHETA MD Location:[facility] Appointment Type:URO Office Visit Diagnostic Tests PendingPSA Total 05/07/22 [facility] Evaluation + Plan note Future Appointments Appointment Date:06/29/2024 03:00:00 PM Scheduled Provider:Natali IRAHETA MD Location:[facility] Appointment Type:URO Office Visit Diagnostic Tests PendingPSA Total 06/24/23 [facility] Evaluation + Plan note Future Appointments Appointment Date:04/12/2025 01:15:00 PM Scheduled Provider:Natali IRAHETA MD Location:[facility] Appointment Type:URO Office Visit Diagnostic Tests PendingPSA Total 10/12/24 [facility] Evaluation note No assessment inform ation available [facility] Work Phone: Evaluation note Diagnosis Transient global [...] unspecified chronicity- Primary documented in this encounter [facility] SystemEvaluation note* Diagnosis Medicare annual wellness visit, [...] Other postprocedural status documented in this encounter [facility] HealthcareEvaluation note* Diagnosis Medicare annual [...] neoplasm of skin documented in this encounter [facility] HealthcareEvaluation note* Diagnosis Medicare annual [...] (CMS/HCC) Atrial fibrillation documented in this encounter [facility] HealthcareHospital course Narrative No data available for this section [facility] InstructionsNot on filedocumented in this encounter [facility] [employer] SystemProgress note No data available for this section [facility] reason for referral (narrative)* Clinic-Administered Medication (Routine) - Closed Specialty Diagnoses / Procedures Referred By Contac t Referred To Contact Orthopaedic Surgery Procedures L Inj/Asp: L knee Mary Lou Diane, NAHEED [address] [address] Phone: tel: fax: Referral ID Status Reason Start Date Expiration Date Visits Re quested Visits Authorized [id number] Closed 11/09/2024 05/08/2025 1 1 [facility] HealthcareReason for visit Narrative* Rehabilitation - Outpatient (Routine) - Authorized Specialty Diagnoses / Procedures Referred By Contchristoph t Referred To Contact Physical Therapy Diagnoses Pain in left knee Procedures NM PHYSICAL THERAPY EVALUATION LOW COMPLEX 20 MINS NM OFFICE/OUTPATIENT NEW HIGH Cecilia Sanchez MD [address] [place] [address] Phone: tel: fax: Yenny Rowe PT Referral ID Status Reason Start Date Expiration Date V isits Requested Visits Authorized [id number] Authorized 10/20/2024 04/18/2025 99 99 [facility] HealthcareReason for visit Narrative* Rehabilitation - Outpatient (Routine) - Authorized Specialty Diagnoses / Procedures Referred By Contchristoph t Referred To Contact Physical Therapy Diagnoses Pain in left knee Procedures NM PHYSICAL THERAPY EVALUATION LOW COMPLEX 20 MINS NM OFFICE/OUTPATIENT NEW HIGH Cecilia Sanchez MD [address] [place] [address] Phone: tel: fax: Yenny Rowe, [place] Referral ID Status Reason Start Date Expiration Date V isits Requested Visits Authorized [id number] Authorized 10/20/2024 11/24/2024 99 99 [facility] Healthcare Chief Complaint and Reason for [...] Dates Sakina Carpenter MD Attending Provider Active General Lithographic Worker Relationship Specialty Start Date End Date North Chapin MD [address] [place] [address] PCP - General Family Medicine 02/04/24 North Chapin MD [address] [place] [address] PCP - [employer] 02/24/24 General Lithographic Worker Relationship Specialty Start Date End Date North Chapin MD [address] [place] [address] PCP - General Family Medicine 02/04/24 North Chapin MD [address] [place] [address] PCP - [employer] 02/24/24 General Lithographic Worker Relationship Specialty Start Date End Date North Chapin MD [address] [place] [address] PCP - General Family Medicine 02/04/24 North Chapin MD [address] [place] [address] PCP - [employer] 02/24/24 General Lithographic Worker Relationship Specialty Start Date End Date North Chapin MD [address] [place] [address] PCP - General Family Medicine 02/04/24 North Chapin MD [address] [place] [address] PCP - [employer] 02/24/24 General Lithographic Worker Relationship Specialty Start Date End Date North Chapin MD [address] [place] [address] PCP - General Family Medicine 02/04/24 North Chapin MD [address] [place] [address] PCP - [employer] 02/24/24 General Lithographic Worker Relationship Specialty Start Date End Date North Chapin MD [address] [place] [address] PCP - General Family Medicine 02/04/24 North Chapin MD [address] [place] [address] PCP - [employer] 02/24/24 General Lithographic Worker Relationship Specialty Start Date End Date North Chapin MD [address] [place] [address] PCP - General Family Medicine 02/04/24 North Chapin MD [address] [place] [address] PCP - [employer] 02/24/24 General Lithographic Worker Relationship Specialty Start Date End Date North Chapin MD [address] [place] [address] PCP - General Family Medicine 02/04/24 North Chapin MD [address] [place] [address] PCP - [employer] 02/24/24 General Lithographic Worker Relationship Specialty Start Date End Date North Chapin MD [address] [place] [address] PCP - General Family Medicine 02/04/24 North Chapin MD [address] [place] [address] PCP - [employer] 02/24/24 General Lithographic Worker Relationship Specialty Start Date End Date North Chapin MD [address] [place] [address] PCP - General Family Medicine 02/04/24 North Chapin MD [address] [place] [address] PCP - [employer] 02/24/24 General Lithographic Worker Relationship Specialty Start Date End Date North Chapin MD [address] [place] [address] PCP - General Family Medicine 02/04/24 North Chapin MD [address] [place] [address] PCP - [employer] 02/24/24 General Lithographic Worker Relationship Specialty Start Date End Date North Chapin MD [address] [place] [address] PCP - General Family Medicine 02/04/24 North Chapin MD [address] [place] [address] PCP - [employer] 02/24/24 General Lithographic Worker Relationship Specialty Start Date End Date North Chapin MD [address] [place] [address] PCP - [facility] 02/04/24 North Chapin MD [address] [place] [address] PCP - [employer] 02/24/24 General Lithographic Worker Relationship Specialty Start Date End Date North Chapin MD [address] [place] [address] PCP - General Family [facility] 02/04/24 North Chapin MD [address] [place] [address] PCP - [employer] 02/24/24 General Lithographic Worker Relationship Specialty Start Date End Date North Chapin MD [address] [place] [address] PCP - [facility] 02/04/24 North Chapin MD [address] [place] [address] PCP - [employer] 02/24/24 General Lithographic Worker Relationship Specialty Start Date End Date North Chapin MD [address] [place] [address] PCP - General Family Medicine 02/04/24 North Chapin MD [address] [place] [address] PCP - [employer] 02/24/24 General Lithographic Worker Relationship Specialty Start Date End Date North Chapin MD [address] [place] [address] PCP - General Family Medicine 02/04/24 North Chapin MD [address] [place] [address] PCP - [employer] 02/24/24 General Lithographic Worker Relationship Specialty Start Date End Date North Chapin MD [address] [place] [address] PCP - General Family Medicine 10/07/24 General Lithographic Worker Relationship Specialty Start Date End Date North Chapin MD [address] [place] [address] PCP - General Family Medicine 02/04/24 North Chapin MD [address] [place] [address] PCP - [employer] 02/24/24 General Lithographic Worker Relationship Specialty Start Date End Date North Chapin MD [address] [place] [address] PCP - General Family Medicine 02/04/24 North Chapin MD [address] [place] [address] PCP - [employer] 02/24/24 General Lithographic Worker Relationship Specialty Start Date End Date North Chapin MD [address] [place] [address] PCP - General Family Medicine 02/04/24 North Chapin MD [address] [place] [address] PCP - [employer] 02/24/24 Goals (unrecognized section and content) Goals may be documented in a n alternate section (unrecognized sect ion and content) No Status Records FoundNo Status Records FoundNo Status Records FoundNo Status Records FoundNo Status Records FoundNo Status Records FoundNo Status Records Found INFORMATION SOURCE (unrecogn ized section and content) DATE CREATED AUTHOR 03/24/2023 [facility] DATE CREATED AUTHOR AUTHOR'S ORGANIZ ATION 04/10/2023 [facility] DATE CREATED AUTHOR AUTHOR'S ORGANIZ ATION 10/09/2024 [facility] DATE CREATED AUTHOR AUTHOR'S ORGANIZ ATION 10/15/2024 [facility] DATE CREATED AUTHOR AUTHOR'S ORGANIZ ATION 03/06/2025 [facility] DATE CREATED AUTHOR AUTHOR'S ORGANIZ ATION 04/01/2025 [facility] EPIC DATE CREATED AUTHOR AUTHOR'S ORGANIZ ATION 04/02/2025 [facility] Reason for Visit (unrecogniz ed [...] BE BASED ON THE PRIMARY CLINICAL RECORDS. [facility] [employer] [facility]. provides no warranty or guarantee of the accuracy or completeness of information in this document.
[2025-04-03 09:02] LABS: Estimated Average Glucose 114 mg/dL; Glycohemoglobin A1C 5.6 % (4.5-6.2)
[2025-04-03 09:23] LABS: Anion Gap 13.5; BUN Creatinine Ratio 16.4; Calcium 9.1 mg/dL (8.5-10.1); Carbon Dioxide 26.6 mmol/L (21.0-32.0); Chloride 103 mmol/L (98-107); Chol HDL Ratio 2.9; Cholesterol 183 mg/dL (<=200); Estimated GFR (African America >60 (>=60 mL/min/1.73m^2); Estimated GFR (Non-African Ame >60 (>=60 mL/min/1.73m^2); Glucose 85 mg/dL (74-106); HDL Cholesterol 63 mg/dL (40-60); Potassium 4.1 mmol/L (3.5-5.1); Sodium 139 mmol/L (136-145); Triglycerides 43 mg/dL (<=150); VLDL CHOLESTEROL 8.6 mg/dL
== END 2025-04-03 08:32 | disposition home or self-care (01) ==
LOC: LAB 08:32
PROVIDERS: PCP Family Medicine; Visit Provider Family Medicine
DX: R73.03 Prediabetes (principal); Z79.899 Other long term (current) drug therapy; E78.5 Hyperlipidemia, unspecified; N40.1 Benign prostatic hyperplasia with lower urinary tract symptoms
CPT/HCPCS: 36415; 80048; 80061; 83036; 84153

== ENCOUNTER 2025-07-02 13:44 | Outpatient (OUT) | payer MEDICARE, SELFPAY ==
--- NOTE | 2025-07-02 | US_ITS ---
The [address] [address] Patient Name: KAVITA AUSTIN MRN: [id number] date: 1950 Sex: M Assigned Patient Location: [place] Current Patient Location: Accession/Order Number: [id number] Exam Date: 07/02/2025 14:51 Report Date: 07/02/2025 14:53 At the request of: JENNIFER CHAPIN MD Procedure: US scrotum Scrotal ultrasound Reason for exam: Right testicular pain for 6 months. Comparison: none Technique: Grayscale, color Doppler and spectral Doppler images of the scrotal contents were obtained. Findings: Right testicle measures 4.8 x 2.4 x 3.5 cm. No evidence of testicular mass or microlithiasis. Normal arterial and venous Doppler waveforms. 4 mm epididymal cyst.. Small hydrocele. Right-sided varicocele. Left testicle measures 4.8 x 2.3 x 3.3 cm. No evidence of significant mass or microlithiasis. Normal arterial and venous Doppler waveforms. Epididymal cyst measuring 8 mm. Small hydrocele. Left-sided varicocele. US/US scrotum Impression: No evidence of testicular mass, torsion, orchitis or epididymitis. Bilateral varicoceles. Small bilateral hydroceles. Impression dictated by: Tariq Lozada Jr., D.O. 07/02/2025 2:53 PM Dictation Location: [place] [address] Electronically authenticated by: [id number] Y Date: 07/02/2025 14:53
== END 2025-07-02 13:45 | disposition home or self-care (01) ==
LOC: US 13:44
PROVIDERS: PCP Family Medicine; Visit Provider Family Medicine
DX: R10.31 Right lower quadrant pain (principal); I86.1 Scrotal varices; N43.2 Other hydrocele; Z87.438 Personal history of other diseases of male genital organs
CPT/HCPCS: 76870

== ENCOUNTER 2025-07-24 10:24 | Outpatient (OUT) | payer MEDICARE, SELFPAY ==
--- OUTSIDE RECORDS SUMMARY | 2025-07-24 10:27 | XMS_ITS | CCD ---
Author Organization [facility] Care Team Providers Care Facility Security Officer Name Role Phone NORTH CHAPIN Primary Care Physician [phone] DO Miguel Astorga Attending Provider MD North Chapin Primary Care Provider Miguel Astorga Admitting Unavailable Nadkhoi, North Primary Care Unavailable Miguel Astorga Attending Unavailable Sakina Carpenter Attending Unavailable Pauline, Sakina Hines Admitting Unavailable Naderelisa, North Primary [...] Gonzalez Consulting Unavailable KALEY, MODESTO Consulting Unavailable CECILIA ANDERSON Attending Unavailable NADERENORTH Gonzalez Referring Unavailable NADERER, NORTH Primary Care Unavailable CECILIA ANDERSON Attending Unavailable VERHOCECILIA WILSON Referring Unavailable NADERELisa, NORTH Primary Care Unavailable Tavares RUSSELL, North Primary Care Provider [phone] North Chapin MD Unavailable North Chapin MD Primary Care Provider NORTH CHAPIN Primary Care Unavailable ENRRIQUE WALDROP Attending Unavailable STEPARGENTINA, ENRRIQUE Sweeney Admitting Unavailable STEPENRRIQUE ELAINE Attending Unavailable STEPARGENTINA, ENRRIQUE Sweeney Admitting Unavailable NADERERNORTH Primary Care Unavailable Natali IRAHETA Attending Unavailable ESEQUIEL, Natali Gonzalez Attending Unavailable Natali IRAHETA Attending Unavailable JR. MONTY, ENRRIQUE Sweeney Attending UnavailBUD Gonzalez Attending Unavailable HERNANDEZ, NNEKA Yeung Attending Unavailable PETITTI, SAKINA Hines Attending Unavailable NADERER, NORTH Attending Unavailable HERNANDEZ, NNEKA Yeung Attending Unavailable PETITTI, SAKINA Hines Attending Unavailable PETITTI, SAKINA A Attending Unavailable NADERER, NORTH Attending Unavailable PETITTI, SAKINA A Attending Unavailable ROWE, YENNY Attending Unavailable VERHOFF, CECILIA Referring Unavailable MINNIE, FRANCO Attending Unavailable VERHOFF, CECILIA Referring Unavailable ROWE, YENNY Attending Unavailable VERHOFF, CECILIA Referring Unavailable MINNIE, FRANCO Attending Unavailable VERHOFF, CECILIA Referring Unavailable KELBLEY, NAOMI Attending Unavailable VERHOFF, CECILIA Referring Unavailable APLING, MARY LOU Peterson Attending Unavailable APLING, MARY LOU Peterson Referring Unavailable APLING, MARY LOU Peterson Attending Unavailable RosereNorth gonzalez MD Primary Care Provider [phone] KAVYA GERMAIN Attending Unavailable NADERER, NORTH Referring Unavailable NADERER, NORTH Primary Care Unavailable NADERER, NORTH Referring Unavailable NADERER, NORTH Primary Care Unavailable BRENNANROXANNE Benavides Attending Unavailable BRENNAN, ROXANNE Referring Unavailable BRENNAN, ROXANNE Referring Unavailable BRENNAN, ROXANNE Referring Unavailable BRENNAN, ROXANNE Referring Unavailable BRENNAN, ROXANNE Referring Unavailable BRENNAN, ROXANNE Referring Unavailable CYN, LOYD Referring Unavailable BRENNAN, ROXANNE Referring Unavailable BRENNAN, ROXANNE Referring Unavailable CYN, LOYD Referring Unavailable CYN, LOYD Referring Unavailable BRENNAN, ROXANNE Referring Unavailable BRENNAN, ROXANNE Referring Unavailable BRENNAN, ROXANNE Referring Unavailable SHERWINWALKER Attending Unavailable Allergies Allergy Classification Reported Allergen(s) Allergy Type Date of Onset Reaction(s) Facility (2 sources) No Known Medication Allergies; Translations: [No Known Medication Allergies] Propensity to adverse reactions to drug (disorder) [facility] Repository Medications Current Medications Medication Drug Class(es) Dates Sig (Normalized) Sig (Original) 8 hr acetaminophen 650 mg extended release oral tablet (20 sources) take 1 tablet by mouth every eight hours as needed for pain acetaminophen (TYLENOL ARTHRITIS) 650 mg 8 hr tablet Take 1 tablet (650 mg total) by mouth every 8 (eight) hours as needed for pain. Active acetaminophen 325 mg / HYDROcodone bitartrate 5 mg oral tablet (1 source) Opioid Agonist Start: 02-28-2025 End: 03-03-2025 take 1 tablet by mouth every six hours for pain HYDROcodone-acetami nophen ([place]) 5-325 MG tablet Indications: Internal derangement of left knee Take 1 tablet by mouth every 6 (six) hours if needed for severe pain for up to 3 days 12 tablet 02/28/2025 03/03/2025 Active Aspirin (5 sources) Platelet Aggregation Inhibitor, Nonsteroidal Anti-inflammatory Drug Start: 10-28-2019 aspirin 325 mg, Refills(s) 0 Start Date: 10/28/19 Status: Ordered End: 07-10-2025 take 1 tablet by mouth in the morning aspirin 325 mg tablet Take 1 tablet (325 mg total) by mouth in the morning. 07/10/2025 Discontinued cholecalciferol 0.05 mg oral capsule (20 sources) Vitamin D Start: 11-03-2022 End: 03-24-2025 take 1 capsule by mouth in the morning RA Vitamin D-3 50 MCG (1999 UT) capsule Take 2,000 Units by mouth in the morning. 11/03/2022 03/24/2025 Discontinued chondroitin sulfates 400 mg / glucosamine hydrochloride 500 mg oral tablet (20 sources) take 1 tablet by mouth in the morning glucosamine-chondro itin 500-400 mg tablet Take 1 tablet by mouth in the morning and 1 tablet before bedtime. Active take 1 tablet by tarah th in the morning glucosamine-chondroitin 500-400 MG table t Take 1 tablet by mouth in the morning and 1 tablet in the evening. Active ciprofloxacin 500 mg oral tablet (11 sources) Quinolone Antimicrobial Start: 10-12-2024 End: 11-11-2024 take 1 tablet by mouth every twelve hours Cipro 500 mg Tab 500 mg = 1 tab(s), Oral, q12hr, X 30 day(s), # 60 tab(s), Refills(s) 0, Pharmacy: [id number], 189, cm, 10/12/24 15:38:00 EST, Height/Length Dosing, 107, kg, 10/12/24 15:38:00 EST, Weight Dosing Start Date: 10/12/24 Stop Date: 11/11/24 Status: Ordered End: 12-24-2024 take 1 tablet by mouth every twelve hours ciprofloxacin (Cipro) 500 MG tablet Take 500 mg by mouth every 12 (twelve) hours 12/24/2024 Discontinued DAILY MULTI-VITAMIN ORAL (2 sources) take 1 tablet by tarah th once daily in the morning DAILY MULTI-VITAMIN ORAL Take 1 tablet by mouth in the morning. Active take 1 tablet by mouth once frank y DAILY MULTI-VITAMIN ORAL Take 1 tablet by mouth daily. Active 24 hr dilTIAZem hydrochloride 240 mg extended release oral capsule (20 sources) Calcium Channel Neeta Start: 12-17-2024 dilTIAZem CD (Cartia XT) 240 MG 24 hr capsule 12/17/2024 Active Start: 04-19-2022 take 180 mg by mouth once frank y Diltiazem Hcl Active 180 MG PO Daily April 19, 2022 3:23pm Start: 10-28-2019 Diltiazem Dilt iazem Start Date: 10/28/19 Status: Ordered Start: 06-10-2018 End: 03-24-2025 take 1 capsule by mouth every twenty-four hours in the morning DILT-XR 180 mg 24 hr capsule Take 1 capsule (180 mg total) by mouth in the morning. 06/10/2018 Active DilTIAZem (Eqv-Dilacor XR) 180 mg/24 hours oral capsule, extended release (2 sources) Start: 06-24-2023 DilTIAZem (Eqv-Dilacor XR) 180 mg/24 hours oral capsule, extended release Refills(s) 0 Start Date: 06/24/23 Status: Ordered doxepin hydrochloride 50 mg oral capsule (20 sources) Tricyclic Antidepressant Start: 08-21-2021 doxepin 25 mg Cap Refills(s) 0 Start Date: 08/21/21 Status: Ordered Start: 08-23-2020 End: 12-26-2024 take 1 capsule by mouth once daily doxepin (SINEquan) 50 mg capsule Take 1 capsule (50 mg total) by mouth nightly. 08/23/2020 Active [facility] (3 sources) Start: 04-19-2022 take 1 capsule by mo uth once daily [facility] Active 1 CAP PO Daily April 19, 2022 3:23pm Start: 04-19-2022 take 1 capsule by mouth once d aily [facility] Active 1 CAP PO Daily April 19, 2022 12:00am famotidine 20 mg oral tablet (20 sources) Histamine-2 Receptor Antagonist take 1 tablet by mouth in the morning, then take 1 tablet by mouth at bedtime famotidine (PEPCID) 20 mg tablet Take 1 tablet (20 mg total) by mouth in the morning and 1 tablet (20 mg total) before bedtime. Active ferrous sulfate 325 mg oral tablet (20 sources) take 1 tablet by mouth in the morning ferrous sulfate 325 (65 FE) MG tablet Take 1 tablet (325 mg total) by mouth in the morning. Active finasteride 5 mg oral tablet (20 sources) 5-alpha Reductase Inhibitor Start: 06-17-20 End: 08-26-20 take 1 tablet by mouth once daily finasteride (Proscar) 5 MG tablet Take 5 mg by mouth Daily 09/05/2022 Active levoFLOXacin 750 mg oral tablet (1 source) Quinolone Antimicrobial Start: 02-23-20 End: 03-01-20 take 1 tablet by mouth once daily levoFLOXacin (Levaquin) 750 MG tablet Indications: Upper respiratory tract infection, unspecified type Take 1 tablet (750 mg) by mouth Daily for 7 days 7 tablet 02/22/2025 03/01/2025 Active lisinopril 10 mg oral tablet (20 sources) Angiotensin Converting Enzyme Inhibitor Start: 04-21-20 take 1 tablet by mouth once daily lisinopril 10 MG tablet Take 10 mg by mouth Daily as directed 04/21/2025 Active Start: 12-15-2024 End: 12-15-2025 lisinopril 5 MG tablet Take 5 mg by mouth 12/15/2024 06/30/2025 Discontinued potassium citrate 99 mg oral tablet (3 sources) Start: 04-19-2022 take 99 mg by mouth at bedtime Potassium Citrate Active 99 MG PO Bedtime April 19, 2022 3:23pm rivaroxaban 20 mg oral tablet (20 sources) Factor Xa Inhibitor Start: 04-21-2025 End: 04-21-2026 rivaroxaban (Xarelto) 20 MG tablet Take 20 mg by mouth 04/21/2025 04/21/2026 Active Start: 10-12-2024 End: 12-24-2024 Xarelto 20 mg oral tablet 20 mg = 1 tab(s), Refills(s) 0 Start Date: 10/12/24 Status: Ordered rOPINIRole 2 mg oral tablet (20 sources) [...] 30 tab(s), Refills(s) 2, [facility]: [id number], 189, cm, 05/07/22 14:58:00 EDT, Height/Length Dosing, 129, kg, 05/07/22 14:58:00 EDT, Weight Dosing Start Date: 05/07/22 Status: Ordered tadalafil 20 mg oral tablet (2 sources) Phosphodiesterase 5 Inhibitor Start: 06-24-2023 take 1 tablet by mouth once daily Cialis 20 mg Tab 20 mg = 1 tab(s), Oral, Daily, # 39 tab(s), Refills(s) 2, [facility]acy: [id number], 189, cm, 05/07/22 14:58:00 EDT, Height/Length Dosing, 107, kg, 06/24/23 15:49:00 EDT, Weight Dosing Start Date: 06/24/23 Status: Ordered tamsulosin hydrochloride 0.4 mg oral capsule (20 sources) alpha-Adrenergic Neeta Start: 04-06-2022 take 1 capsule by mouth once daily Flomax 0.4 mg Cap 0.4 mg = 1 cap(s), Oral, Daily, # 90 cap(s), Refills(s) 3, Pharmacy: [facility], 189, cm, 08/26/23 11:12:00 EDT, Height/Length Dosing, 107, kg, 06/24/23 15:49:00 EDT, Weight Dosing Start Date: 03/23/24 Status: Ordered take 1 capsule by [facility] every twenty-four hours in the morning tamsulosin (Flomax) 0.4 MG 24 hr capsule Take 0.4 mg by mouth in the morning. Active Completed/Discontinued Medications Medication Drug Class(es) Dates Sig (Normalized) Sig (Original) LORazepam 0.5 mg oral tablet (9 sources) Benzodiazepine Start: 5 End: take 1 tablet by mouth every hour LORazepam (Ativan) 0.5 MG tablet Indications: Internal derangement of left knee Take 1 tablet (0.5 mg) by mouth See administration instructions for 1 dose take by mouth 1 hour prior to MRI 1 tablet 12/14/2024 12/24/2024 Discontinued 1 ml methylPREDNISolone acetate 40 mg/ml injection (4 sources) Corticosteroid Start: 4 End: methylPREDNISolone acetate (DEPO-Medrol) injection 40 mg Start: 11-09-2024 End: 11-09-2024 40 mg, Intra-articular, Once PRN Procedure, Starting on 11/09/24 at 1153, For 1 dose omeprazole 40 mg delayed release oral capsule (2 sources) Proton Pump Inhibitor Start: 09-21-2020 End: 07-14-2025 take 1 capsule by mouth once daily in the morning omeprazole (PriLOSEC) 40 mg capsule take 1 capsule by mouth every morning PRIOR TO BREAKFAST 09/21/2020 07/14/2025 Discontinued (Therapy completed) Problems Active Problems Problem Classification Problem Date Documented Date Episodic/Chronic Abdominal hernia (1 source) Hernia of abdominal cavity Onset: 07-14-2025 Episodic Abdominal pain (5 sources) Right inguinal pain; Translations: [Right lower quadrant pain] Onset: 06-30-2025 06-30-2025 Episodic Acquired foot deformities (7 sources) Hallux rigidus, left foot; Translations: [Other hammer toe(s) (acquired), left foot] Onset: 10-08-2022 Chronic Anxiety disorders (20 sources) Claustrophobia; Translations: [Claustrophobia] Onset: 02-04-2024 02-04-2024 Chronic Cardiac dysrhythmias (20 sources) Atrial fibrillation; Translations: [Paroxysmal atrial fibrillation] Onset: 07-10-2017 Resolved: 12-24-2024 10-28-2019 Chronic Disorders of lipid metabolism (20 sources) Hyperlipidemia, unspecified; Translations: [Dyslipidemia] Onset: 03-11-2023 02-04-2024 Chronic Esophageal disorders (20 sources) Gastro-esophageal reflux disease without esophagitis; Translations: [Gastroesophageal reflux disease without esophagitis] Onset: 12-10-2022 02-04-2024 Chronic Essential hypertension (2 sources) Essential (primary) hypertension; Translations: [Essential (primary) hypertension] Onset: 04-21-2025 Chronic Heart valve disorders (1 source) Rheumatic disorders of both mitral and tricuspid valves; Translations: [RHEUMATIC D/O MITRAL TRICUSPID VALV] Onset: 03-17-2023 Chronic Hyperplasia of prostate (20 sources) Benign prostatic hypertrophy with outflow obstruction; Translations: [Benign prostatic hyperplasia with lower urinary tract symptoms] Onset: 07-10-2017 Chronic Inflammatory conditions of male genital organs (8 sources) Chronic prostatitis; Translations: [Chronic prostatitis] Onset: 05-07-2022 Chronic Inflammatory conditions of male genital organs (7 sources) Epididymitis; Translations: [Epididymitis] Onset: 10-12-2024 10-28-2019 [...] 02-04-2024 Chronic Other aftercare (1 source) Other [place] (current) drug therapy; Translations: [OTH RESIDENTIAL CURRENT DRUG THERAPY] Onset: 03-11-2023 Episodic Other circulatory disease (2 sources) Presence of other cardiac implants and grafts; Translations: [Presence of other cardiac implants and grafts] Onset: 04-21-2025 Chronic Other circulatory disease (2 sources) Personal history of other diseases of the circulatory system; Translations: [Personal history of other diseases of the circulatory system] Onset: 04-21-2025 Episodic Other connective tissue disease (1 source) Presence of right artificial hip joint; Translations: [PRESENCE RIGHT ARTIFICIAL HIP JOINT] Onset: 12-10-2022 Chronic Other diseases of kidney and ureters (1 source) Urinary tract obstruction; Translations: [Other obstructive and reflux uropathy] Onset: 05-07-2022 Episodic Other diseases of veins and lymphatics (4 sources) Varicocele 10-28-2019 Episodic Other hereditary and degenerative nervous system conditions (1 source) Restless legs syndrome; Translations: [RESTLESS LEGS SYNDROME] Onset: 12-10-2022 Chronic Other hereditary and degenerative nervous system conditions (20 sources) Restless legs; Translations: [Restless legs syndrome] Onset: 07-10-2017 02-04-2024 Chronic Other male genital disorders (8 sources) Male erectile dysfunction, unspecified; Translations: [Erectile dysfunction] Onset: 04-27-2022 Chronic Other male genital disorders (4 sources) Impotence 10-30-2019 Chronic Other male genital disorders (4 sources) Impotence of organic origin 10-28-2019 Chronic Other male genital disorders (4 sources) Pain in testicle 10-30-2019 Episodic Other male genital disorders (5 sources) H/O: male genital disorder; Translations: [Personal history of other diseases of male genital organs] Onset: 06-30-2025 06-30-2025 Episodic Other non-epithelial cancer of skin (8 sources) History of malignant basal cell neoplasm [...] [Obesity, unspecified] Onset: 03-17-2024 03-17-2024 Chronic Other skin disorders (4 sources) Seborrheic keratosis; [...] Onset: 02-04-2024 02-04-2024 Chronic Residual codes; unclassified (2 sources) Sleep apnea; Translations: [Sleep apnea, unspecified] Onset: 07-10-2017 02-11-2023 Chronic Residual codes; unclassified (8 sources) Family history of malignant neoplasm of kidney; Translations: [Family history of malignant neoplasm of kidney] Onset: 05-07-2022 Episodic Residual codes; unclassified (4 sources) H/O: anticoagulant therapy 10-30-2019 Episodic Residual codes; unclassified (4 sources) History of arthroscopy of knee joint; Translations: [Other specified postprocedural states] 2025 Episodic Residual codes; unclassified (1 source) Pain, unspecified; Translations: [Pain, unspecified] Onset: 07-15-2025 Episodic Residual codes; unclassified (2 sources) Other specified postprocedural states; Translations: [Other specified postprocedural states] Onset: 04-21-2025 Episodic Spondylosis; intervertebral disc disorders; other back [...] pain, unspecified chronicity 10-07-2024 Unclassified (1 source) Supraventricular tachycardia, unspecified; Translations: [Supraventricular tachycardia, unspecified] Onset: 12-20-2023 Past or Other Problems Problem Classification Problem Date Documented Date Episodic/Chronic Cardiac dysrhythmias (2 sources) Palpitations; Translations: [Palpitations] Onset: 12-18-2024 Episodic Complications of surgical procedures or medical [...] FOR IMMUNIZATION] Onset: 12-10-2022 Episodic Mood disorders (14 sources) Mood disorders Onset: 03-29-2025 03-29-2025 Open wounds of extremities (4 sources) Laceration without foreign body of left thumb without damage to nail, initial encounter; Translations: [LAC NO FB LT THUMB NO DMG NAIL INIT] Onset: 12-06-2022 Episodic Other aftercare (1 source) intermediate (current) use of aspirin; Translations: [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 CURRENT USE OF ASPIRIN] Onset: 12-10-2022 Episodic Other aftercare (20 sources) Long-term current use of drug therapy; Translations: [Other roasterman (current) drug therapy] Onset: 03-17-2024 03-17-2024 Episodic [...] Onset: 05-17-2022 Episodic Other connective tissue disease (2 sources) Ischial bursitis ; Translations: [Other bursitis of hip, left hip] Onset: 07-30-2023 07-30-2023 Episodic Other screening for suspected conditions (not mental disorders or infectious disease) (20 sources) Patient encounter status; Translations: [Encounter for screening for malignant neoplasm of prostate] Onset: 03-17-2024 03-17-2024 Episodic Residual codes; unclassified (20 sources) Insomnia; Translations: [Insomnia, unspecified] Onset: 02-04-2024 02-04-2024 Episodic Transient cerebral ischemia (20 sources) Transient global amnesia; Translations: [Transient global amnesia] Onset: 02-04-2024 Resolved: 12-24-2024 02-04-2024 Chronic Unclassified (1 source) CONTACT W/AND (SUSP) EXPOS COVID-19; Translations: [CONTACT W/AND (SUSP) EXPOS COVID-19] Onset: 06-04-2022 Unclassified (1 source) Supraventricular tachycardia, unspecified; Translations: [Supraventricular tachycardia, unspecified] Onset: 04-21-2025 Results Test Name Value Interpretation Reference Range Facility Orders Onlyon 07-12-2025 Orders Only [id number] Oscar Escoto 1950 M Date Provider Department Center 07/12/2025 Orquidea-PERRI HEARN Kamran [facility] C[facility] Family History Problem Relation Age of Onset Other Mother Coronary artery disease Mother Other Father Family Status - Relation Status Age at Mother Father Normal [facility] [place] [address] Ultrasound Report Signed Patient: OSCAR ESCOTO MR#: [id number] : 1950 Acct:[id number] Age/Sex: 75 / M ADM Date: 07/02/25 Loc: US Attending Dr: North Chapin M.D. Ordering Physician: North Chapin M.D. Date of Service: 07/02/25 Procedure(s): US scrotum Accession Number(s): [id number] cc: North Chapin M.D. [address] [address] Patient Name: OSCAR ESCOTO MRN: [id number] date: 1950 Sex: M Assigned Patient Location: US Current Patient Location: US Accession/Order Number: [id number] Exam Date: 07/02/2025 14:51 Report Date: 07/02/2025 14:53 At the request of: NORTH CHAPIN MD Procedure: US scrotum Scrotal ultrasound Reason for exam: Right testicular pain for 6 months. Comparison: none Technique: Grayscale, color Doppler and spectral Doppler images of the scrotal contents were obtained. Findings: Right testicle measures 4.8 x 2.4 x 3.5 cm. No evidence of testicular mass or microlithiasis. Normal arterial and venous Doppler waveforms. 4 mm epididymal cyst.. Small hydrocele. Right-sided varicocele. Left testicle measures 4.8 x 2.3 x 3.3 cm. No evidence of significant mass or microlithiasis. Normal arterial and venous Doppler waveforms. Epididymal cyst measuring 8 mm. Small hydrocele. Left-sided varicocele. US/US scrotum Impression: No evidence of testicular mass, torsion, orchitis or epididymitis. Bilateral varicoceles. Small bilateral hydroceles. Impression dictated by: Tariq Lozada Jr., D.O. 07/02/2025 2:53 PM Dictation Location: [place] [address] Electronically authenticated by: [id number] Y Date: 07/02/2025 14:53 Dictated By: Tariq Lozada M.D. Signed By: 07/02/25 1455 DD/ 1453 TD/TT: Development Coordinator: [facility] Radiology, Radiologist, - 07/02/2025 [place] [address] Ultrasound Report Signed Patient: OSCAR ESCOTO MR#: [id number] : 1950 Acct:[id number] Age/Sex: 75 / M ADM Date: 07/02/25 Loc: US Attending Dr: North Chapin M.D. Ordering Physician: North Chapin M.D. Date of Service: 07/02/25 Procedure(s): US scrotum Accession Number(s): [id number] cc: North Chapin M.D. [place] [id number] Patient Name: OSCAR ESCOTO MRN: [facility]:[id number] date: 1950 Sex: M Assigned Patient Location: US Current Patient Location: US Accession/Order Number: [id number] Exam Date: 07/02/2025 14:51 Report Date: 07/02/2025 14:53 At the request of: NORTH CHAPIN MD Procedure: US scrotum Scrotal ultrasound Reason for exam: Right testicular pain for 6 months. Comparison: none Technique: Grayscale, color Doppler and spectral Doppler images of the scrotal contents were obtained. Findings: Right testicle measures 4.8 x 2.4 x 3.5 cm. No evidence of testicular mass or microlithiasis. Normal arterial and venous Doppler waveforms. 4 mm epididymal cyst.. Small hydrocele. Right-sided varicocele. Left testicle measures 4.8 x 2.3 x 3.3 cm. No evidence of significant mass or microlithiasis. Normal arterial and venous Doppler waveforms. Epididymal cyst measuring 8 mm. Small hydrocele. Left-sided varicocele. US/US scrotum Impression: No evidence of testicular mass, torsion, orchitis or epididymitis. Bilateral varicoceles. Small bilateral hydroceles. Impression dictated by: Tariq Lozada Jr., D.O. 07/02/2025 2:53 PM Dictation Location: [place] [address] Electronically authenticated by: [id number] Y Date: 07/02/2025 14:53 Dictated By: Tariq Lozada M.D. Signed By: 07/02/25 1455 DD/ 1453 TD/TT: Development Coordinator: [facility] Radiology Study observation (narrative) [facility] US Scrotum and testicleOrder ed By: Radiologist Radiology on 07-02-2025 [facility] Work Phone: Destr of lesionon 05-12-2025 Complexity: simple Destruction method: electrodesiccation and curettage Informed consent: discussed and consent obtained Informed consent comment: The risks of the procedure were discussed, including, but not limited to risks of scarring, darker or almond pan finisher pigmentary changes, recurrence, infection, and incomplete removal Timeout: patient name, date of , surgical site, and procedure verified Timeout comment: Patient and provider identified site. Site was marked. Photo was taken and shown to patient, patient verified this is the correct site. Procedure prep: Patient was prepped and draped in usual sterile fashion Prep type: Chlorhexidine Anesthesia: the lesion was anesthetized in a standard fashion Anesthetic: 1% lidocaine w/ epinephrine 1-100,000 buffered w/ 8.4% NaHCO3 Curettage performed in three different directions: Yes Electrodesiccation performed over the curetted area: Yes Curettage cycles: 3 Lesion length (cm): 1 Lesion width (cm): 1 Margin per side (cm): 0 Final wound size (cm): 1 Hemostasis achieved with: electrodesiccation Outcome: patient tolerated procedure well with no complications Post-procedure details: wound care instructions given Post-procedure details comment: Post-procedure instructions were given verbally and in writing. The office will be contacted if the lesion fails to resolve despite treatment, or if a side effect develops such as abnormal crusting, scabbing, reddness, discharge, or tenderness. Additional details: Amount of lidocaine used: 2.0 cc Previous accession number: [id number] [facility] Tagg[employer] Complexity: simple Destruction method: electrodesiccation and curettage Informed consent: discussed and consent obtained Informed consent comment: The risks of the procedure were discussed, including, but not limited to risks of scarring, darker or almond pan finisher pigmentary changes, recurrence, infection, and incomplete removal Timeout: patient name, date of , surgical site, and procedure verified Timeout comment: Patient and provider identified site. Site was marked. Photo was taken and shown to patient, patient verified this is the correct site. Procedure prep: Patient was prepped and draped in usual sterile fashion Prep type: Chlorhexidine Anesthesia: the lesion was anesthetized in a standard fashion Anesthetic: 1% lidocaine w/ epinephrine 1-100,000 buffered w/ 8.4% NaHCO3 Curettage performed in three different directions: Yes Electrodesiccation performed over the curetted area: Yes Curettage cycles: 3 Lesion length (cm): 2.3 Lesion width (cm): 2 Margin per side (cm): 0 Final wound size (cm): 2.3 Hemostasis achieved with: electrodesiccation Outcome: patient tolerated procedure well with no complications Post-procedure details: wound care instructions given Post-procedure details comment: Post-procedure instructions were given verbally and in writing. The office will be contacted if the lesion fails to resolve despite treatment, or if a side effect develops such as abnormal crusting, scabbing, reddness, discharge, or tenderness. Additional details: Amount of lidocaine used: 2.0 cc Previous accession number: [id number] [facility] No Panel Informationon 04-30 Lesion length (cm): 2 Lesion width (cm): 1.7 Margin per side (cm): 0.2 Total excision diameter (cm): 2.4 Informed consent: discussed and consent obtained Informed consent comment: Risks and possible complications were discussed as noted on the consent form. The consent form was signed prior to the procedure. Timeout: patient name, date of , surgical site, and procedure verified Timeout comment: Patient and provider identified site. Site was marked. Photo was taken and shown to patient, patient verified this is the correct site. Procedure prep: Patient was prepped and draped in usual sterile fashion Prep type: Chlorhexidine Anesthesia: the lesion was anesthetized in a standard fashion Anesthesia comment: The local anesthetic was injected to create a field block at the site of the procedure. Anesthetic: 1% lidocaine w/ epinephrine 1-100,000 buffered w/ 8.4% NaHCO3 Instrument used comment: Dermablade Hemostasis achieved with: aluminum chloride and electrodesiccation Outcome: patient tolerated procedure well with no complications Post-procedure details: sterile dressing applied Dressing type: bandage Additional details: Amount of lidocaine used: 4.0 ml [facility] No Panel InformationOrdered By: Naomi Hernandez on 04-30-2025 [facility] Healthcare Office Visiton 04-21-2025 Follow-up visit [id number] Oscar Escoto 1950 [facility] Provider Department Center 04/21/2025 [id number], ADAM KATHARINA Wu Family History Problem Relation Age of Onset Other Mother Coronary artery disease Mother Other Father Family Status - Relation Status Age at Mother Father Level of Service:27204 [place] OFFICE/OUTPATIENT ESTABLISHED MOD MDM 30 MIN Normal [facility] Orders Onlyon 04-15-2025 Orders Only [id number] Oscar Escoto 1950 [facility] Provider Department Center 04/15/2025 [id number], HISTORICAL KATHARINA Wu Family History Problem Relation Age of Onset Other Mother Coronary artery disease Mother Other Father Family Status - Relation Status Age at Mother Father Normal [facility] Ambulatory Visit Summaryon 0 04-05-2025 Ambulatory Visit Summary Ambulatory Visit Summary OSCAR ESCOTO :1950 Visit Date:04/05/2025 Ambulatory Visit Instructions Your Diagnosis BPH with obstruction/lower urinary tract symptoms Epididymitis Chronic prostatitis Family history of kidney cancer Organic impotence Your Care Team Attending Physician - Natali IRAHETA MD Primary Care Physician - NORTH CHAPIN MD This Is Your Medications List doxycycline (doxycycline hyclate 100 mg Tab) Contact prescribing physician if questions or concerns diltiazem (DilTIAZem (Eqv-Cardizem CD) 240 mg/24 hours oral capsule, extended release) doxepin (doxepin 50 mg Cap) finasteride (finasteride 5 mg Tab) lisinopril (lisinopril 5 mg Tab) ropinirole (ropinirole 2 mg Tab) tamsulosin (tamsulosin 0.4 mg Cap) Procedures Performed Arthroscopy of knee (03/01/2025), Colonoscopy, Foot, Hip replacement, Removal of Basal Cell on Nose, Repair of inguinal hernia, Titanium Plate Left Arm, Tonsillectomy with adenoidectomy. Discharge Vitals Temperature (Temporal Artery) 37 ???C Heart Rate (Peripheral) 66 Respiratory Rate 19 Blood Pressure 128/68 Height 189 cm Height 74 in Weight 115.3 kg Weight 254.193 lb BMI 32.28 What to do next You Need to Schedule the Following Appointments Follow Up with ESEQUIEL RUSSELL, Natali Gonzalez, [place] When: Comments: sched orchiectomy in September Where: [facility] [address] , [place] [phone] Medications What How Much When Why Instructions New doxycycline (doxycycline hyclate 100 mg Tab) 1 Tablets By Mouth 2 times a day Epididymitis Chronic prostatitis Duration: 14 Days Pickup at [facility] Unchanged diltiazem (DilTIAZem (Eqv-Cardizem CD) 240 mg/ 24 hours oral capsule, extended release) 1 Capsules Contact prescribing physician if questions or concerns Unchanged doxepin (doxepin 50 mg Cap) 1 Capsules Contact prescribing physician if questions or concerns Unchanged finasteride (finasteride 5 mg Tab) 1 Tablets Contact prescribing physician if questions or concerns Unchanged lisinopril (lisinopril 5 mg Tab) 1 Tablets Contact prescribing physician if questions or concerns Unchanged ropinirole (ropinirole 2 mg Tab) 1 Tablets Contact prescribing physician if questions or concerns Unchanged tamsulosin (tamsulosin 0.4 mg Cap) 1 Capsules Contact prescribing physician if questions or concerns Pharmacy Information [facility]: [address] [place], [place] [id number] [phone] Allergies No Known Medication Allergies Problems Ongoing - Any problem that you are currently receiving treatment for. 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 Epididymitis Family history of kidney cancer Hx of roasterman use of blood thinners Impotence Organic impotence Pain in right testicle Varicocele Patient Survey You may receive a survey via text or e-mail asking about your office visit. Please share your experience with us by completing your survey. We appreciate your feedback and thank you for choosing us for your care. Education Materials Orchiectomy An orchiectomy is the removal of one or both testicles. It is most often done to treat cancer of the testicles. Less commonly, it may be done in men with prostate cancer, or to prevent cancer in men whose testicles did not develop normally. An orchiectomy may also be needed when an injury to a testicle cannot be repaired. The testicles can be replaced with artificial testicles (prostheses). Tell a health care provider about: ??? Any allergies you have. ??? All medicines you are taking, including vitamins, herbs, eye drops, creams, and wtzx-lqt-weohlmd medicines. ??? Any problems you or family members have had with anesthetic medicines. ??? Any bleeding disorders you have. ??? Any surgeries you have had. ??? Any medical conditions you have. What are the risks? Generally, this is a safe procedure. However, problems may occur, including: ??? Infection. ??? Bleeding inside the sac that holds the testicles (scrotum). This is called a scrotal hematoma. ??? Pain. ??? Damage to nearby organs or structures, such as the nerves. ??? Discharge from the surgical site. ??? Allergic reactions to medicines. ??? Inability to produce sperm (infertility), if both testicles are removed. ??? Hot flashes, if both testicles are removed. What happens before the procedure? When to stop eating and drinking ??? Follow instructions from your health care provider about what you may eat and drink before your procedure. These may include: ? 8 hours before your procedure ? Stop eating most foods. Do not eat meat, fried foods, or fatty foods. ? Eat only light foods, such as toast or crackers. ? All liquids are okay except energy drinks and alcohol. ? 6 hours before yo (more content not included)... Normal [facility] Urology Office/Clinic Noteon 04-05-2025 Urology Office/Clinic Note Urology Office/Clinic Note Chief Complaint 6 month f/u with PSA HPI Staff 6 month f/u with PSA Dx: BPH with urinary obstruction/LUTS, epididymitis, chronic prostatitis, family hx of kidney cancer and organic impotence PSA done 04/03/25 - 0.39 Cialis 20mg PRN, Tamsulosin qd and Finasteride 5mg qd Denies urinary complaints but states that he is having right sided scrotal pain that returned about a month ago. Denies any swelling to the area. At last OV he was treated for epididymitis with 1 month of Cipro. He stated that he was doing really well and then the pain started again. History of Present Illness Tests reviewed: reviewed UA, PSA I have reviewed the previous health record information and history for this patient from Dr. Iraheta. I have reviewed and verified the staff HPI to be accurate for this encounter. Review of Systems ROS - Provider Constitutional: denies weight loss, [...] Physical Exam Vitals & Measurements T: 37 ???C(Temporal Artery) HR: 66(Peripheral) RR: 19 BP: 128/68 HT: 189 cm HT: 74 in WT: 115.3 kg WT: 254.193 lb BMI: 32.28 General Appearance: alert, no distress, well nourished, well developed male. Assessment/Plan 1. BPH with obstruction/lower urinary tract symptoms (N40.1: Benign prostatic hyperplasia with lower urinary tract symptoms) PSA 05/09/21 - 0.70 04/27/22 - 0.49 (Finasteride 0.98) 06/22/23 - 0.48 (Finasteride 0.96) 03/26/24 - 1.02 (Finasteride 2.04) 04/03/25 - 0.39 (Finasteride 0.78) No family hx of prostate ca. IPSS 5. Taking Tamsulosin 0.4mg qd and Finasteride 5mg qd. Not voicing any urinary habit complaints. PSA has decreased from prior. Will cont to monitor. 2. Epididymitis (N45.1: Epididymitis) Ongoing since last year. Tx'd w/ Cipro 500mg bid x1 month at prior OV. Sxs seemed to resolved after abx course. Notices R epididymal pain after physical activity. Discussed possible need to orchiectomy given chronic pain/discomfort. Pt denies concerns for fertility. Discussed risks/benefits/procedu ral details of orchiectomy. Pt does not wish to proceed with the procedure at this time given busy schedule. Recommended another abx course for now. -Take doxycycline 100mg bid x2 wks. Rx sent to [facility]. Avoid sun exposure. Take with probiotics/yogurt daily. -Consider R orchiectomy in September. Risks and Benefits were discussed with the patient. These include bleeding, infection, pain, and need for additional procedures. Pre-op consent reviewed with and obtained from patient. Order General anesthesia. 3. Chronic prostatitis (N41.1: Chronic prostatitis) See [...] [facility] [address], [place] [phone] Additional Instructions: sched orchiectomy in September Patient Education Orchiectomy I, Katheryn Fernandez, personally scribed for Dr. Iraheta on 04/05/2025 13:20:08. . Documentation recorded by the scribe, Katheryn Fernandez, accurately reflects the services(s) I performed and decisions made by me. Authenticated by Dr. Iraheta on 04/05/2025 13:21:22. Problem List/Past Medical History Ongoing 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 Epididymitis Family history of kidney cancer Hx of roasterman use of blood thinners Impotence Organic impotence Pain in right testicle Varicocele Historical No qualifying data Procedure/Surgical History Arthroscopy of knee (03/01/2025), Colonoscopy, Foot, Hip replacement, Removal of Basal Cell on Nose, Repair of inguinal hernia, Titanium Plate Left Arm, Tonsillectomy with adenoidectomy. Medications DilTIAZem (Eqv-Cardizem CD) 240 mg/24 hours oral capsule, extended release, 240 mg= 1 cap(s) doxepin 50 mg Cap, 50 mg= 1 cap(s) finasteride 5 mg Tab, 5 mg= 1 tab(s) lisinopril 5 mg Tab, 5 mg= 1 tab(s) ropinirole 2 mg Tab, 2 mg= 1 tab(s) tamsulosin 0.4 mg Cap, 0.4 mg= 1 cap(s) Allergies No Known Medication Allergies Social History Alcohol - Low Risk, 10/28/2019 Never., 10/12/2024 Substance Abuse Never., 10/07/2024 Tobacco Never (less than 100 in lifetime) Tobacco Use:. Never Smokeless Tobacco (more content not included)... Normal [facility] Comment on above: Result Comment: Elec tronically Signed By: Natali IRAHETA MD\.br\Date and Time Signed: 04/05/25 13:21 EDT\.br\Electronically Co-Signed By: Katheryn Fernandez.br\Date and Time Co-Signed: 04/05/25 13:20 EDT MLR HEMOGLOBIN A1Con 025 Glucose [Mass/Vol] 114 mg/dL [facility] Healthcare HbA1c (Bld) [Mass fraction] 5.6 % 4.5 - 6.2 % [facility] Comment on above: ADA RECOMMENDED LIMI T 4.0 - 6.0 ADA THERAPEUTIC TARGET < 7.0 ACTION SUGGESTED > 7.0 [facility] Coding Summaryon 03-30-2025 Coding Summary HTMLBase 64 WmfzumfsDAu8mFx+PGhlYW Q+AK0TATVyK42joRDvwW6f J4UGNDrPHpxcUTOYISxBMe JtbpGeQU5tpLKfPENa IC8+PK9cPOYpEogztCNin6 E1vEJ7B23qoo2fCHxsuWQ3 TVVnUxKueirep9lofWd9PR cuNmluOyBt SXJhbQ51JYH0rT16Lf71bR BdyTHgi0fthMc2IcLaWOXo OQH8jHofOSpjr4TmGCQdA0 4gjWGng5E6 IIRshGaakIWnLkKtyLY5xD 2oBOnijvrps7swssjxWyf2 kd95nEYts4T6pRZ5V8Nazx R5DIJiiQCx UdpokJVCsP8acoaxv4ajqf yhEqKfVKPuAVl4OUi7HHXe uEoeGxLlER65TKV1SAZzvp WrK6RmOROq eGokQpY9l2M2Ay7FE3HFGy jtL3WQTWARQNmapCX+PC90 ic27P3KxDfkvDyz3GNIiEV H6yYU5hT3l VWPzUJurb7Z9qVQ4D4Bhxd Syxx1ay2mvNDVvDXhfK33s oPVtd3K3PJPxnCU3WMSevA teZsMqbQ55 Oyc+IFQfxUato9HtHgvhc4 sbc0sakFt8ZjyfFYNxbaGp uVfeHMZ8s3VeQm8uUBAkaC L8uGR9rX4b YqGpBhB8JYvbJ654NrQkfR UwPahbP54xX2TsrRB+PHRy Rfl7UDFehDotMI5nE4MfVN RpbmctbGVm aVunNU1oJWYbwybsOFOxbL 8hWHBvE7q4EjBvRqI0GAum W8QiZOJugxksRp22kW8qXj QtRhV0DGbp I9PicbA2EBLxyWRkVEerLP J7P54io5D1UDXaRBNfXNZ9 uBN9zG7xoTjfdkdjdYSpcC sgdmVydGlj BEqrBZafD757EAWiaMnjUn NvZGluZyBEYXRlOiAgMDUv MDYvMjAyNTwvdGQ+PHRkIH F6lKnhQCBc iLTcVCzgBv5mePytpPjpCE 6kXOCltabmDVCrnW1yMPFi tFCcnGauHG0wPSBpyxjrx9 83UrRpYVL4 GWGbjHLwG4NtfW9eOsLkPF LcTYFyB7VcaXTjLXqqJ721 NYbsKuG0SMJbcdAdD2XfSU FsaWduOiB0 t4O7Bp8Lt0BqfwdiX6IyzS MqFtReZzyyADa6Q1FbHzgo dHI+HK59DWIkUS00KMq0SB L2yVywPVlc EFUoH2HpfQ4cXpYwMCDaDO RkOyc+PHRhYmxlIHdpZHRo WFznUOWeVjDybLhvVH7gDo 9yZGVyLWNv pKnywKHnZuMws6czKBPvPI soGW4psZfuG0RrjWR1KPWw o8z5Vh27T21wD7UisVY+PG ZpvUU0gZD0 sM4qPcRuLdC8NSomV387Qn NfdFLsFwiax1hxd5lneQa7 CaL5AAJgjaOrnZbvNXA1u8 ZeOf81U50r IHdpZHRoPSIxNSUiIHZhbG xdmi9lbI0uMw4+PGNvbCB3 mUP1tK4sHiEkRgG1ZYprK6 49InRvcCIv Xfyco9axm8jqeXa3XaZnGG YvnxSrcOfjPEQ4n4OzJc34 F5QjtRvdl2BjEkr2rs73nP Jxw9D7iGI3 Q2CqGMJhtmuctJRsrXqdLG 0qJIUfqfryBOZryZ2mLAWl V3h0SmIeCuO8AVvxM9Cznk O1HZSuyQOc OWBrjRGVtR0ljfihf3cjgd ozVzTmGTWsAOb3NHg7RLXr qYznFhBkRLY8JbS4RFC1vI AwnF8spHvv ptopzS0mTfr+LKX9aUSsnN GHWE9oQfmdbGO+PHRkIHN0 gQiuECcrOXNntD1lJICkM3 h1QfAlUlN2 HMnaE0VaolS7WASuuBCwZW CuxRFKdD9vmabbl0pvtkeg XqOoHLZpHNm6XZd9OXLkmV duOiBsZWZ0 NxG1RXR7pUEoiX4mpHsywp wgkV1uRnw+QmlydGggRGF0 LGr9N4IvOyv8LLMtdUfsNB 0ncGFkZGlu Yf9rlLpmiAezSH9qRHBduu xft998KgCfa5rkYOEohTVw OLzjWRE7Q96xf7S6ZFYtEI NgIDW2fGV1 qP1ugQzetbxrdSTlgQlyub UazLtaQFpyGWheX430EYYn sJzkJaNkGQm9H3HtIbk0LZ RsgCxjHB4j eBCbVSmbWf9btNsucSqkHM 1cDLYxrxluq670ClWde2bj FSOkeWKpOGqtZBA3K05tg9 Q9KTIhPOGo XKT0wHI6gC5woOvljojeeS VmdDsgdmVydGljYWwtYWxp M291EBEtqJdrVbMoxZw5L3 CuPfj0DSFc qZrgGV7paTFyPCnyIn8ntX yysUliIF8eFXWlrdbkc845 LpNjz8djDLZvfWWdESyjOE E5M26mg0C2 GOFhOBHrHQA4oSP1bL3noS lnbjogbGVmdDsgdmVydGlj OYqxZAhqP411HXMbbXloCd BhdGllbnQg DRmvRCu2R6SzJmhufMI+PC 32JJGjFY35uKHpoYIyd1hv jNd8EaGlTWAtVTG9jGyfVO ozy4ZvCBSm A59wfAXoa1M5FCAbzWybsV RjBqPmjSK9qT2mMLgpnguh f1llxhmzKyqto2xaej72vM 56D00mZOdx ZHRoPSIzMCUiIHZhbGlnbj 8cjR4sFw0+EGHreLU7sZR5 wA8oGGGdReY8YKziM898Bi RvcCIvPjxj b0xcx8gzvEn0RtO9CVFogi LzvSzeXAP6p2TjNe56A10d IHdpZHRoPSIyMCUiIHZhbG oclg5tcO0j Ii8+XSGnmVF1bKN1tP0bZv TxZtI3UWawQ801YsLjeSUv HxakV86fT6KjcDR+PHRyPj w0VWIcdYoc MJ3mtENaUPqzUg3rFOT2Ir PcVsGmGEwjK3KeSOQierps rswhmYO1TBFzVPPodG94Np 9udDogMTBw qNAXkV4kvzwfs9ptmirxWb ZuZQSzOMv1LFk5HCWylSno ZhBkFZP2VrP6PRT6wCSpyB 1hbGlnbjog mD2kM6TnISRbawntFb96rG 3jBjLzNbW4IBwlWmr+TUNN ZJJYZOTyFSIKZW2CGWABMU xFTjwvdGQ+ VMOdWNY7yIinWUeqWNIbdO 1tUICfJ7p5LjFxDvW1HIod R1BcEJDvcawrGw87hB0wMp OrSmE9OMqo J6LblmO2PJOemPRbCLurPK K8R63cm8U7MJZhACStGHU7 dAX4lK8hyAqizfztfUHunA sgdmVydGlj FYjbWEaqU071PBOgsJeyLn F3StNjLdZ6DJY5D3EsNcj9 YOYftAmdKL6mbWStLQnjMq 1yaWdodDog OQ4mHHDquribTYJtrA5gJC QngSMjxHshES3iSEQewxfr l378LjVdJDZ7SMBlcKQiK4 WjsY3fGkXa LJFmUTQsA5TelGHdXAkxR3 87SYxwKgZ0ASKyouHfB1Me IYTbgIjtJpF2b9O0Lt31Dn BZZWFyczwv dGQ+ZPVsYHF6jFeaIGtlZJ IbtL5qMPQaI6h0VyAvWkA2 GRanS7PjNCOmhikaJw53qK 4jCwWnNvY5 LBfeJ4UpkcL1WNOxjQQtFT hyGNV6K97zc9H3XKBkPLZo POM9vOY8yM2kkTemlkkatC VmdDsgdmVy tUriPOnlWLiuU114EPAfbK seFh4QBTE6O4MkHpk7QPEs jDcmZQ6xhZAzMHquUf5hvN qijGrjST6a SIWwgsysGJSmeW1jIGPyfG BgsSygTC7rTOLsrdpnq815 NwLgPIQ1BJImlFRiC9QoxP 9yOiAjMDAw CGKlG4DgqBVgJCjoG949OF joTlH0WXYhtxPfR2JhIFIg aYrjWnO9t7J3Zg5TFPkhG3 DjT9VlmOkr dGQ+OV03ij90J5ObAduhYp o9EJQyHKD8vWE5nX7mCHSy XEcon5Q9uBE0W3YazsOngb 8dt7djMOGu XWldJ47rmBNil2Z9KMIgsL R2PTKxxPymNyNslU08Ffi+ TKTedCdky5BrOwiyl7jck9 kcyEc5YnUk VNOtpzJctTnnAEB3b1IuHn 17X76kUGpfOUZoQPLeGCNn KGZyjNpait8ddW8eWy5+PG UiiMS3yDJ6 pD8aUkMoAlW7JCghZ628Di LbeVKcQaubf0wdc4jzuEp7 RrLoCTPooyRtlSqmEJL7o4 GtIr07B2Az zSadu8YlXni4jk82mYMrp4 G1dTQ8G5YhEQGgejwdzLTk gBftHD0zAJMlvdlaKGItyF 4rBWLaV6b4 NhQgObQ9ADogO8EmddB0GY MjxWKeTBFoqRRReJ0pitmy k0sjvtvhZkScBKBcSLe9IZ b3XTFblVpr JrQkZTO7EtT1GQV9sYJtbR 6xlXbbbbnuqK8nTmu+UGh5 k2mczZIoLY1tiFF3FX58PZ 18tPBwb8Y0 uJG2B3OfMJJjvykvxnhkbD J6QGEaKNIwrV75Jk0qzNhq Zw9sCDVwKRX1VFWmlOYaC1 QviB8tYlOw VQCqYBJzE2CgfWVvNKkjE0 75IBkwSzM9AXYkdpOfE6Vo SJHqeVwqXiR9s6R4Ss4IKI 65YN21YC80 aJAio5J6yZL4J4HqKIZffh ilogrdfEJ1LTKqJEEggM98 Th0mlBfvUv8dMMRtJHY8YH WibVSzA9Mi bW1lSbBmFRQcPZTvC6AhmP NcCIuuJ164JKymIgS8FTJw thZtW0FcTXKwoTziFmB4j0 P7Di4HQd63 HV21YA08cKLer7G1fVO6J7 XhPTOihihhjowsfHW5KVZt QTRjjZ82Tm4bgIryFp3iPJ IiODM3VBUt sJUwS8GrtL7fTrUySPOyWR GkQ3XwnXIdATnhV454QWfq CdN5XLHqejKgY8NmANYjyH fiKqP7i7D7 Gw3EHBllsyt8U5HuPbrgtI I+LL38FNSjQL55bZOklGXh u0fjtGm4ExOlVZOmOPR0zF dwYDgjy6Un ZXI (more content not included)... [facility] No Panel Informationon 03-24 Type of [...] taken Amount of lidocaine used: 1.5 cc [facility] Type of biopsy: tangential Informed consent: discussed [...] taken Amount of lidocaine used: 1 cc [facility] Type of biopsy: tangential Informed consent: discussed [...] Coding Summaryon 03-17-2025 Coding Summary HTMLBase 64 UrtlsrguPZd8dSy+PGhlYW Q+VG9LOPPxY87njAPfkJ0t E8ICOXyWDdfsXCUMWFeNRe XnwaYxQL5vqQBcGNNk IC8+NU2mPFJfGipujZZck2 B9iMH9V07fdg7gFScoxYX5 ZNZvGqJholivq7yubCt5ES cuNmluOyBt TSTvuE23PWR6mF45Sg60rX GweZLal1tqoOv1CvZgJHFl HIV9lPulSKgip3OiGFFdJ9 2ftHLgw5Z5 PRQgdDwguCZmLsAypMN5bR 4gYDtkkjjuh9melrbeEeb0 xc97pOKlv2F0tPL0V1Hsac Y2GASmzRSl EarvwNABvW6qwupdv4hmtf ryKwEwCECyRUd1FBh3GOSl kNenMoYaFW01FGX7SODdlo BbS0SyRIDn rTepRcB3w4Q2Ln7DV7WFCc wrL8GADGBEKAoxzZC+PC90 iw52Q6ZjMfztHic3WYSdRE L2eWU5nQ5b CQJbBXymz0W0mHM4J3Miry Hxgi6er7ioDZDqOEkwG77e iIKaz4B8ZOLksWU0QCVkvQ tjBeGdlG20 Oyc+BBMrrTpyu0LaDtcci5 cmq9lgoPr0CenaGSMphzMy rEcyIFJ5w8CzMr7eFETiwB V8nVK2cA6e RsZbWoM0SMwiO807BdPxtC SyQvseD74lT1CltZI+PHRy Sbg9XNSgcUwrEJ2dB2OsTO RpbmctbGVm oVwhPX8sDVZpmigzLSFkjC 7tEJNqM8h5QxNnVqR0AOss D9KgAURmtbarVt05lD5hMh XsYeP7BWdk E6JsedY3AEWraVSlNDxhUY Q7U16ue5O1DOJhQYRwIKK8 kSE8vF2ivIbedihocECthI sgdmVydGlj RMcfIYewF090AJSxiLjxGx NvZGluZyBEYXRlOiAgMDQv MjMvMjAyNTwvdGQ+PHRkIH U6uNyyUGCb lXKhJRwcOt6lcLiygPmtRK 2nNCFhfiuvODJbeY2nNNUh iJVtyYlnXV4vUCEwffboz5 62EhNrLQJ9 SRTuhHPpA1JcrO0vNnEfSS CyASGmG8MbfKGpOYugN903 PSxjNaU7BNNujwStN7PwNG FsaWduOiB0 n7M4Ld8Md9LxdbfkT7FwhA KwTnZtNlfhHTk4Y3CoLllw dHI+FQ15DESjEX47WBc2QV Z1wZxyVDtc WAQvV9RddW6pSkOiZWMiMV RkOyc+PHRhYmxlIHdpZHRo VAxyJRZpIyIrmGdoVC5hVj 9yZGVyLWNv ySryfEShHdJca4rjYLSfWF uxAN3fzWkgT2SknCI0HMLd k0j3Tc13C24kV4DwaIG+PG AdyQW5iSB4 aK6tOiNlNfP5JHxyW407Il IoeTStWqlkz4bft0gfmFs6 ZuD0EBQkzgEnlBfaJIH8g2 TkXr66K07a IHdpZHRoPSIxNSUiIHZhbG jgnz9arJ2sWu6+PGNvbCB3 gSQ3uL8aBfQyQsL2AXneX9 49InRvcCIv Fbnex4fnn8iqcYi4CqLeEY KpteHmqWcdHMJ6v5GgWm21 G9DfsQxns4InMgw1py77sG Xhg1L4oLY6 L7KpEEJeqwhriTNhqNmmUM 4rHENndurvEECeiF8pAEHn G4t4EzPqGlD6QRrmR4Kigu H2SFPiiBIc VHMkhRKLoW7kgvbyb2aoqz bzGkLoJNHtSGg9YMq0GLIq fArrWjDgRRI8OeM9ARG0tQ VehC6tgZkk eqptrJ0uYxx+IFU6fISbsO ZILT8iMvdtqVQ+PHRkIHN0 dPctINznOOCtvQ4fEMZsE7 v4WyJwRfX5 JQnvB9TnahD8PYRgjQEiTF SevEGHyT4tgqydn7jjuncg XzLzYZRaNGz5YMq1SJAmjS duOiBsZWZ0 XuL1RUY5xODauS4pjDkagf ezyX2kSwu+QmlydGggRGF0 SBg1Z6IfSgc2JALwdQipDO 0ncGFkZGlu Hc7okYeihIlxSY5jAHSxts stp718PrXsp5rnOVQgqCFn TRxfMMJ2W64eb4G8SYYoVA YvHIG8gWM7 hJ9nvRqosinlnTFtkXytqg AgzBdsOFdkFOrfW718NJUe oSvtSyNrSFy9S2OjGmu1IT VsoJlmXW6f uNUhYMzbCk1uiAhleFsvOH 5eFSYgcjxom925DiJuc7hf CKPeeVFwMKcxEXW4L11ck5 O6FFIfKXXz SSS8bKZ3aE9dfZeubxhonX VmdDsgdmVydGljYWwtYWxp O975CXDquZhrMlRktOa7Y5 PnFik6BRWo mDwsGM9afRTjQZcrRj2gyX chxViyJG5xCDRrpxpzc838 SmDkt4yzSMKejJLjKUcwKX E0L03ts3M2 UOPlINLnYYP2pQA6yH7oeA lnbjogbGVmdDsgdmVydGlj IBglVThfI592BOZxdYkeDj BhdGllbnQg XMtrUKx1S8IyUvvsgWF+PC 57XMSgQV96jYOxnSTwc6eg cCg8UmBaBHSvKYL0jHmxIK mdt4BrAEMz A46mxWAhe0M4MVQxoAfopR WyZcEegJD7aK9nUAqewasf x3ejvtodWtoul6fcdg92sF 04T36vXAnz ZHRoPSIzMCUiIHZhbGlnbj 6zlY0qEn9+GPVngDN9bMU7 aQ2vHASnNzP9AWneO695Di RvcCIvPjxj f1bpr0nwvGo7KkR5IGQxmy GxuYngUMJ6e7OtYs94V30i IHdpZHRoPSIyMCUiIHZhbG btvq1lxB6v Ii8+SXRqoZQ2kOU6lA5jFb BiOeU8HIicC030BxSwpMIo QheiM58pY0NulGN+PHRyPj n0MOLnsRgg BX6mzLQtTKzzDb2pTAX1Bf AdZsUgPPfkB2WlXJGjygkk dxucqXT8GQAeMUFmbL24Km 9udDogMTBw sJWAzH9kckwar9ntkuyyVc QkMHKaNUl6TDq4BPSznJkb OhDuIDO8RcV7PQM5kNMhvO 1hbGlnbjog pQ4yA4XjOROgxlzcJb29vQ 1eRiWgVrY9ZEwtIho+TUNN SFUPUBPtLDTAHF2COSKXZG xFTjwvdGQ+ CIYcSEH8uYrbBBbaJYFsbZ 2yXEXgG5v9WzJqDaD8DTvp R8XpJPVubkgtBp62zX8rVs CtKlR3GJmp O5XcunW0GKUdnITrFXowXZ K7C27oc7W1DFYxSRCjZER1 tQA0fH7wnPiyimsneJZqrB sgdmVydGlj JZsoGIblT121JYGbpEhiMg C5ZhUbJrR0VGF4E9UeGvs4 JCQlkVqdYT8qvAIxQKypLw 1yaWdodDog YP4mJZJxgzdiZTXvdB5tSF TfsUJmnQujNE3nWZZrarru v615MrJeMAR0USGejJQnA4 ZzsA8qVoNi IXNdEWJvO7SljLDaLOcfR9 20SZqqSxU2DKAmowBgF3Jx LTQziWkoEtE6w3P3Rl67Ug BZZWFyczwv dGQ+POLaZDC0xXcqDOomBJ WixX6xOUFhJ6s8UyPzWlT7 UPbkY1QeZCUlsiskCm80xG 7tAfPvJwI5 AVusK9OrlzE2VXAwkVTlDV qpPZF9T86qb0P9RJRxRLJb GLP7fPO1aM0zuIfbexpkeA VmdDsgdmVy jSdgZUhjIIkyG644MXRxqZ ryBd7NDPD2L9KnAuj7AJXy tMqaWS6bvEYaSDizMt6liY evaBbjHR6g QANvijpzDVPmjV2nPDLhzI SpoIjcAG4lJCNettnex854 FhTiBXO7HAXunVOsA6OteL 9yOiAjMDAw QBAeL6TmoOGgBEajY643PF gpEkS5SRAnloKcF5VcNOUi sJwbQbV8y2A7Dw1CAIsfH3 AoN9CzjNcc dGQ+YA10ee34Z8ZtYsqqDd o6IUIxIWX6iCE7pQ2vMPMf XKcmq0Q7iUJ0J4KpmaRkyt 7rp3lyQKMh TEmgL30jxYWvn8S1YLLtaZ J4KZBybVteDnIjyT90Abf+ DWDfgOdfp5FvWqqbv4xbk3 agzJy2MbKp CFToqcVoaVsbUKM6v9PuSn 19G63bDWagDHYzZKAjZJZc IMFwmMybga5cpL8jTj6+PG YezBL5oSG4 aM3vXgAdQkD7DNphJ404Up OeqYIkQwkfa3yah4jfuJy4 AvVpOWIgdhZdbFsmZCK8y0 KbAy51L4Ar uVuab8WcAor1hd77xQMzy8 P5wWI3F5KvUWXoeyxpwAKt wItoRT3vAWUzdockBFGryL 3mFKDlK0w6 KbItMfD2CSadZ0WdznV5SV QufBUxAYJhtJIHlI7ahunk u4kgoiggJvNhCIVbWXd6QL c2CJBwzEet KzZgOKO8WqA8PWV5fSVwsC 9elXpaqsofpL0jEia+UGh5 n2jfaPTgJL2ydBU0PS09AZ 91wDHre5U0 yIA2V5YgOZNztvwopqaaiW X9QCLoKUZxeH32Vo0edGzq Tz1dFQWxONK5MDBqrXMhS8 BpcE9uEmJc YPWaNIKgY7OgsCNcNKmmY0 03KJgjXxO1DLFohnAbW9Rf JROyrKbyIcB0g7T4Gt8CND 58QD45OK13 aDQnu7F1nGJ0O0HcQSHsvw zmnwqsmRU3HHNqFBBejM13 Ar9szYofOs6eUDNiVOL0CI GbwMIgM3Xw dI1lTtTwLZMyYPSqL2NqnA KmCKnbT121PMbhWyW5USFl gtQzU6KdACAhuGfiZcV4t7 N3Qh5JDu85 SX91KF60tIJqh4U7sAO0D8 MiCSVwqqosauzurIJ1BNFd YJJlmP43Gt2vrJkwSk8zHU MuDCN2LJSo hYStD6JfgN4sQwMaLZFdLT GbL2SkkFTiSQjfG150IBrr JcB6LEItxhZoL4RhXSQbkU beOvD9e4G0 Ct3QXLuwuav3S2OpDacliT I+ZN85NHUbQP71sLXbaYJo w8jpxBn0EqLnRFEuUGY5rT qpTJikf7Yo ZXI (more content not included)... [facility] Consent Formson 03-02-2025 Consent Forms [id number]#1.00 [facility] Outside Recordson 03-02-2025 Outside Records [id number]#1.00 [facility] Telemetry Stripson Telemetry Strips [id number]#1.00 [facility] Anesthesia Noteon 03-01-2025 Anesthesia Note Patient: [...] on: 03/01/2025 12:38 EDT] Leroy Zuñiga DO [facility] Anesthesia Note Patient: OSCAR ESCOTO Age: [...] = 50 mL, 100 mL/hr, 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 Tonsillectomy and adenoidectomy (837394044). Hernia (4259152356). Comments: 02/02/2025 13:25 Cass Edwards RN inguinal and umbilical Toe ([id number]). Comments: 02/02/2025 13:26 Cass Edwards RN big [...] % Auto Lymph % 22 % Auto [place] % 7 % Auto Eos % 2.9 % Auto Baso % 0.7 % Neut Abs# 4.6 x103/mcL Lymph Abs# 1.5 x103/mcL [place] Abs# 0.5 x103/mcL Eos Abs# 0.2 x103/mcL [...] NA . Radiology results: ECHO, 2020 wnl. Motor Route Carrier: stress ekg 2016 wnl. ECG interpretation: Normal sinus rhythm. Plan [place] [employer] (ASA) physical status classification: [...] 03/01/2025 11:0 (more content not included)... Normal [facility] Inpatient Patient Summaryon 03-01-2025 [place] [address] Patient Discharge Instructions Name: OSCAR ESCOTO : 1950 Patient Address: [address] [place] [address] Primary Care Provider: Name: NORTH CHAPIN After you are discharged if you find you have any questions, please, call [phone] ext [phone] to speak to a nurse. Discharge Diagnosis: [...] alcohol and/or drug addiction problems; contact the [facility] 17/06 Crisis Hotline -Text 4HCWL ra [phone]. If you received any narcotics, sedation, or [...] business decisions or sign any legal documents [facility] would like to thank you for allowing us to assist you with your healthcare needs. The following includes patient education materials and information regarding your injury/illness. OSCAR ESCOTO has been given the following list of follow-up instructions, prescriptions, and patient education materials: Follow-up Instructions With: Address: When: [place] [address] [facility] (1) 2025 10:00 AM Medications During the [...] of you (more content not included)... Normal [facility] MAGR Intraoperative Recordon 03-01-2025 MAGR Intraoperative Record MAGR Intra-Op Record Summary Primary Physician: ENRRIQUE WALDROP DO Finalized Date/Time: 03/01/25 12:04:17 Pt. Name: OSCAR ESCOTO/Sex: 1950 MALE Med Rec #: [id number] Physician: ENRRIQUE WALDROP DO Financial #: [id number] Pt. Type: D Room/Bed: / Admit/Disch: 03/01/25 08:45:44 - Institution: Case Times MAGR Entry 1 Patient In Room Time 03/01/25 11:05:00 Out Room Time 03/01/25 11:57:00 Anesthesia Start Time 03/01/25 11:05:00 Stop Time 03/01/25 12:00:00 Surgery Start Time 03/01/25 11:31:00 Stop Time 03/01/25 11:49:00 Last Modified By: Alissa RN, Rupinder 03/01/25 12:03:54 Case Attendance MAGR Entry 1 Entry 2 Entry 3 Case Attendee ENRRIQUE WALDROP Christopher J DO Gump RN, Rupinder Role Performed Surgeon - Primary Anesthesiologist of Hha Record Time In 03/01/25 11:05:00 03/01/25 11:05:00 03/01/25 11:05:00 Time Out 03/01/25 11:57:00 03/01/25 11:57:00 03/01/25 11:57:00 Procedure Arthroscopy Knee(Left) Arthroscopy Knee(Left) Arthroscopy Knee(Left) Last Modified By: Alissa RN, Rupinder Maxwell RN, Rupinder Maxwell RN, Rupinder 03/01/25 12:03:50 03/01/25 12:03:50 03/01/25 12:03:50 Entry 4 Entry 5 Case Attendee Felicitas Ramos CABLE ASSEMBLER Berny CABLE ASSEMBLER, Sarah CABLE ASSEMBLER CSFA Role Performed Enrollment Services Vice President Enrollment Services Vice President Time In 03/01/25 11:05:00 03/01/25 11:05:00 Time Out 03/01/25 11:57:00 03/01/25 11:57:00 Procedure Arthroscopy Knee(Left) Arthroscopy Knee(Left) Last Modified By: Alissa RN, Rupinder Maxwell RN, Rupinder 03/01/25 12:03:50 [...] Zuñiga Time Out Time 03/01/25 11:30:00 Participants Alissa MACHADO RN, Richard Bucio Regina CSFA CABLE ASSEMBLER, ENRRIQUE WALDROP DO, Wilkins CST, Sarah GALLAGHER CSFA Last Modified By: Rupinder [...] related to positi (more content not included)... [facility] MAGR PACU Recordon MAGR PACU Record MAGR PACU Record Summary Primary Physician: ENRRIQUE WALDROP DO Finalized Date/Time: 03/01/25 12:31:44 Pt. Name: OSCAR ESCOTO/Sex: 1950 MALE Med Rec #: [id number] Physician: ENRRIQUE WALDROP DO Financial #: [id number] Pt. Type: D Room/Bed: / Admit/Disch: 03/01/25 08:45:44 - Institution: PACU Case Times MAGR Entry 1 In PACU I 03/01/25 12:00:00 Discharge from PACU 03/01/25 12:28:00 I Last Modified By: Hannah Abraham RN 03/01/25 12:31:42 Finalized By: Hannah Abraham RN Document Signatures Signed By: Hannah Abraham RN 03/01/25 [facility]31 [facility] MAGR Postoperative Record MAGR Phase II Record Summary Primary Physician: ENRRIQUE WALDROP DO Finalized Date/Time: 03/01/25 13:26:19 Pt. Name: OSCAR ESCOTO/Sex: 1950 MALE Med Rec #: [id number] Physician: ENRRIQUE WALDROP DO Financial #: [id number] Pt. Type: D Room/Bed: / Admit/Disch: 03/01/25 [...] Signed By: Camden Jones RN 03/01/25 13:26 [facility] Preoperative Recordon 0 03-01-2025 [facility] Preoperative Record [facility] Pre-Op Record Summary Primary Physician: ENRRIQUE WALDROP DO Finalized Date/Time: 03/01/25 13:12:56 Pt. Name: TIGISTOSCAR /Sex: 1950 MALE Med Rec #: [id number] Physician: ENRRIQUE WALDROP DO Financial #: [id number] Pt. Type: D Room/Bed: / Admit/Disch: 03/01/25 [...] By: Camden Jones RN 03/01/25 13:12 Normal [facility] Patient Handouton 03-01-2025 Patient Handout Arthroscopic [...] with you for the rest of today. [facility] Progress Note - Nurseon -0 Progress Note - Nurse Spoke with pt and informed him to be at hospital at 0845 and NPO after MN, he verbalizes understanding. [Electronically Signed on: 02/26/2025 09:54 EDT] Miranda Head RN [Verified on: 02/26/2025 09:54 EDT] Miranda Head RN [facility] Coding Summaryon 02-09-2025 Coding Summary HTMLBase 64 YtlphrsfGOk4nEl+PGhlYW Q+SA8MYQSxF92xnJUfqN5q W8EXVLnMHlbkKLKYOEaYEb NarwVxVH9jpLHvBDOt IC8+YP6bQVYdCxwkmMJgy7 I1kOM7E47dlo1kVKvdsIR7 VYQqLxBtbjzve1pjoIq6JW cuNmluOyBt HEXxnR30XOR6zP70Lr93kJ RzhMMhz2wpxEf9PxUhEWQp YMQ1sXybYKkyj0YwCLTaB7 2mqINpu5N2 HKIwmKrxmZXcXbKaeDL5mP 3iEJnxrdcfe8xulqkbWde5 ih32iKBnm2T0cNN4G4Dowl Z1BOIixYYx LwdcxTJLkW4crqhhg2avcv heTrSoALGqYVk3VAr1BHZx jMzeWvHwRV84RIW7ENRgyk AkF7JqYYSy rBnyAqF8o7K2Sl8GM4WJBh vnG1MVFRAQSOcwqYR+PC90 bk69Y6LcTbavJue8YMWbSP U5bGX6qB1x JBFnTIwwr9J9iDP1T2Vouf Osjz0gw3edAJGpDVorW07o fQHxp6G6EVXjlKE2DGNimD ygCkTdbZ48 Oyc+DMTysEgcl4ZaMsiaz0 hzq4exiTp2ZzdzAWPvzwGe kGxfFJQ1v0HrGd9qCXDhyE Y7pDO2qE1d IfDlBjX8FLvmN045BxSfcD UmAbswM29aN6XiaOJ+PHRy Gwh1ZZWckWhfUB0fM0VaIS RpbmctbGVm aDdfBQ7tNQCunpenVDSzqQ 6jFDVeW4t7OcHiXpU0IMvw G0QgTANxgoieGp90dM9sJy QqKlU8OTth V2JfkkN4EYInsXWaXGzyYW J7M37pq6H4MDWaCVPfMRN3 gTV6fB9dwXndtalqqXZmiD sgdmVydGlj SFmgSRzoN103LMLnqMffOz NvZGluZyBEYXRlOiAgMDMv MTgvMjAyNTwvdGQ+PHRkIH V9jXojMFRa zSPvFFunQt7paWhycYhrZM 1fNLDrmtniRSMjkM7uDLDd fZVllFzoSC9sTZUpolkov2 69VdGfOEZ9 NHCwqGXzX1CpjC4sTwBkOB ZhQLQoN1JnqNIeFTwyV619 DJkdHuV3VWOmhcBdE3BsJJ FsaWduOiB0 d6G9Uj1Aq5QoweylH2HwtS TxCdHkBccnESi1B2NrZotl dHI+LW65NXXgBN17JEw5UZ W8lYpfFSlk ZVLoM1LlgY4oVjEzLWHhPO RkOyc+PHRhYmxlIHdpZHRo BFezYZEtZbSrbTyaMM9oKl 9yZGVyLWNv iNupfYGtFhNqs2naVBAnWV quWW2blLqdM8RetZD4ZBAf x9f2Fq45Z89jR5OdrSX+PG NgzNU8iOA6 tQ9qVlCjWzD2BTmxA064Tc VwxEHiKwwfb3zls1hdzUn3 GgY7KLOzkpDutXuaHIB0p6 JoOd42C53v IHdpZHRoPSIxNSUiIHZhbG wexz0miX2iNn7+PGNvbCB3 wOJ4pT9zJoLuZcW1OScdT0 49InRvcCIv Lkzbo7cnt1xjeDt5YzOsCT TghvUszKapMTC8m3DePg46 A0WihPwne6VbQet5iv33gN Eoz9J6yGX8 M4LzOLMrvvujbTPfmYltKM 7cHLIjcpyiHAMasW5hBLIq J0q6JvOfAuT0ZIknZ9Ocwc N7WADvnTQm VZUrtQRPdJ9hmmppf0lfwa cjOuDjDFDvDOr8AJu6IUHl wZjuUmNzKEJ6LtH3NYC3mW PkiY3gpRrm hnufjM1sMfo+BJN9mPGjaI VVBV6eXgfmbYC+PHRkIHN0 wNbaFKqzZNBduG1sUUVeW4 r3LqNfBpB7 ACkgL4HojfF7EPUjzARxBG ZsyOWFsW6ycvrzb8qnrwjl SgUmEWZgJYe6VSf3GSQjuI duOiBsZWZ0 VtA0JIG0yFAkdR6hrWxqjn xugF1eUdj+QmlydGggRGF0 FUy3G1WhGfz1NETlaCcgVJ 0ncGFkZGlu Kf6meEvmwSglFE1yDKNjdd mpb676GeQcq6nnUOZoqMSu PDlzXOW4U67ve1M8IQRdYZ OqVOL9qSC7 bE9xuDlauetdgFXrtDndnr HtmVcdZTyuBGyvX664PBSt nYkoNnNxPJb3J2HbVfg4AM XmqIuvSX6f jPXmKIicVd3qcPrvmLgpHB 2wIWSrsnkpf832PaYqn4zl AZIjpOUiDFgyXER4J39kt5 Q0BESdZBMl CZE8kUR8dY6vyOlbaxkrgU VmdDsgdmVydGljYWwtYWxp G793SUKsiNzdCgKlcTr7D6 IuDge7KQRa aCyeKJ3cuACqWXcdIh0tlL mhwAomCO6qYAZsajjdm141 LpIok5trEGHfzAQeFAriGU K9V92ig2Q6 HSGxZHHuMWN6kXV3rF1fmR lnbjogbGVmdDsgdmVydGlj VOzuKLglO950PGRlhNyzNy BhdGllbnQg NGqiSXz9Z6TnRkhskQA+PC 13RBQmPA56fRBbeGAjm6hh iKw8KnYsLNFwIWK5uHajDT ust6QmEKAg K36jpMYzu0X4XKXydXywbF RdLgPcbNY7mW2fZQffzhjn y4hyhqynYguch9elsf44zK 18Q12uAAab ZHRoPSIzMCUiIHZhbGlnbj 3zwU6aUn8+EOQnpQQ2mSS8 jX9qFFPrQbQ3EKewQ650Uc RvcCIvPjxj e4kmw8rnlJv9UsN5DFBthy HzeFvoUCV2a4BiHu70B41d IHdpZHRoPSIyMCUiIHZhbG zkjg6aeT8m Ii8+GECmwFH2gTP2zD6tYf EmKpL1YScmZ718JfZiyOLx AvdyP77zX3AbxBM+PHRyPj q2JAStlPyu XS0nlAMhQCtxRv1hAMX9Fp EaIvBbIZxkK3YkFMLgbnnh kmrgpJU8IYTqPEEqpW52Yk 9udDogMTBw bXDLvJ7knxtps6faztweLs SyVRFmFJw6IEj4KUTpvIda KlVbJMT2RkZ2KSN1rTRdtN 1hbGlnbjog eO3cV1ErPEFfttohFz00pH 0tSaLiPdT7BZacRpt+TUNN JOUHPKMhRRAPUV8TDMEDWU xFTjwvdGQ+ SYSyRMQ6oPkxEVrxKYLrqF 1mEMBkJ6u6JiPwCzO9HCnb R5EdVCExuvajYe01uQ1aNx WpKoL7MOvv J7BaoeU5PAKkbEMeJSaeWC J5F31gh1Q4XNOjSKClYPF2 xSW0iK2zuCfpjwqreBFgyG sgdmVydGlj QNxcBPcjO172YLEjyRgwCo Z7EdXcOeT5UJW5H4VlTre8 ORBrtAqwSX6zfDYdPEmyMp 1yaWdodDog VE9mKFWnnibzNYWebX1hLU DyzWXfvFjmQB1zUNDzyywx r893QcXhXAV8PYMjiZNuX2 CknO4fTvPv DVYrORPqD9EpfUMuZEbwI7 49TEebAwN0DRBusfQzQ3Kx UHUwsQqrRxD6u1E2Bs69Nj BZZWFyczwv dGQ+XSXbJWR3wLywLApuIY PpuB6dLKIfG4x3TyPtPyL7 WYzxN5GbDHFdnzmoSo73hE 5zVoBmKuP1 MPmjT0FpsaL3IAIsqKPuEA knWZZ2F21lx6Q9BSBtQLIk PRA2lGW8iI8ovQdbqlepnH VmdDsgdmVy pRnrIKeyVIqwU141RVYmbH cxAs4ZOAL9U1EeMkl6HMAu fMqyDR9uvTFrFGovOw9lfA ixzIweBX9u FVCizgmvFNMjrN6sFBEkzB IqcXdaUN6qSKOlubwod611 CmVxQRW1EEXqvJSeV9ShjA 9yOiAjMDAw JOStC2IpfSNaCMkzK938ML coRwY7DAMlfvWgP7NuNULg bYziPpK0p9T5Uv0ABQhnwM Q+ST01gv66 D4IsPyfuPvm5LIPiGGO0jK V5iK8zFEFlKDees9K7cLJ2 T0FadgHkyk5le2zfGDQsMV ueN39lxZLr k1K0NFDpxSM7XVPcpUdxKi HbaA39Xih+KTMdtRuem5Iz Zdniv1bnm8nvcHa3GwTxVE IgdmFsaWdu GJM5i2CeRo41L05tHIksUP QuHEXbAFYdHGCabYgbvj5v nO5iRm0+VTCzsDM1uNP4tD 2wFoJdWjI9 VVasN963IsSyrRAaXsmsw0 lyk6fykQc0CcKaHOQicwAz lVunZHO1d1ZrQz00T5ThfE ren9ZiWwb5 rq15lHEpo0D3vPV6C1KpHO EmqcxrfMTodDdiCX8eAZVz ojrnRTSvhC5pRGTeD6b1Rr QxYkP0UUlz R1HqpqL0ULNcpERnZKCyvU NApH0qfnevv0gkwhnkDvCs RZRsEFu6PQm1KBVqqIbgOo BzBCU3CqB5 XKL5xOBzoV3zsOqhyzfrtM 9wOyc+DLi1n1iiaPNbWZ2p jEZ2GG65KC41hZWxx2F8lR G1C0CpFAUn ccvbsgodlYR7EKUcEHXnaL 05Gk4qxIdzNs9iTFLgKAL9 JDGuoGLcJ6AiiH0oHqDzUO OxROToX5Wc aNFkRXfxM416UZqrWpW0IF BzyyIhK9ArMKPeyWvfGyP2 n2Q5Tc5ETO82PS83SC62eK Poh6K0wEP4 V9SqOFZbxgalaufprGD2MQ AiDLQhpE87Pj4xdYkbTj9i YYUqBEE1CEZueBNyD3YppF 9yOiAjMDAw PWHgA2JomOJtZEotY258EW ykEwE7WPIgipLeP4UhSYIx nLnpEsI2i2X9Vo1EAs60WI 95LJ73cEZq s8U9gNA1N3TgDKEovqbigb rcaBB8OLFqPUPxqY38Fw8s oWgzKd3sQZFlMDW6YTWwtR BfC3XhvH6j RcCbCCSuROXkZ5BppZXeRM xxJ414TPmtYyX1YHWlvzFw C3BoCNMzeDvdIeG6z2O9Zq 9KDZcybbs2 K5HwDjqrzVL+WJ58GYZkUU 96aHWeoTQcx5xbuOk3DdGv YNUcXKT4nUbyXPyzx8XcLL EbR95vsTJc c2U (more content not included)... [facility] Progress Note - Nurseon - Progress Note - Nurse Dr Ovalles reviews pt chart and no new orders were received. [Electronically Signed on: 02/04/2025 12:38 EDT] Miranda Head RN [Verified on: 02/04/2025 12:38 EDT] Miranda Head RN [facility] 36on 02-03-2025 36 Patient's says his BP is higher AFTER he takes lisinopril. They are leaving tomorrow to go to [place] for 2 weeks. I think they question [...] of his BP without, that was ok. [facility] 36 PER [place]ENNAN STAY ON [address] [facility] .Auto Diff on 02-02-2025 Auto [place] % 7 % Normal -12 [facility] Comment on above: Performed By: #### 7 [id number], [id number], [id number] ####[facility] (DEFAULT)[address] [place] [address] 89947 Baso Abs# 0.0 x10 Normal 0.0-0.2 [facility] Comment on above: Performed By: #### 7 [id number], [id number], [id number] ####[facility] (DEFAULT)[address] [place] [address] 29849 Basophils/100 WBC (Bld) 0.7 % Normal 0.2-2.0 [facility] Comment on above: Performed By: #### 7 [id number], [id number], [id number] ####[facility] (DEFAULT)[address] [place] [address] 26966 Eos Abs# 0.2 x10 Normal 0.0-0.4 [facility] Comment on above: Performed By: #### 7 [id number], [id number], [id number] ####[facility] (DEFAULT)[address] [place] [address] 18431 Eosinophils/100 WBC (Bld) 2.9 % Normal 0.9-4.0 [facility] Comment on above: Performed By: #### 7 874477, [id number], [id number] ####[facility] (DEFAULT)[address] [place] [address] 84789 Lymph Abs# 1.5 x10 Normal 1.3-2.9 [facility] Comment on above: Performed By: #### 7 411760, [id number], [id number] ####[facility] (DEFAULT)[address] [place] [address] 07769 Lymphocytes/100 WBC (Bld) 22 % Normal 14-48 [facility] Comment on above: Performed By: #### 7 743017, [id number], [id number] ####[facility] (DEFAULT)[address] [place] [address] [place] Abs# 0.5 x10 Normal 0.0-0.8 [facility] Comment on above: Performed By: #### 7 794524, [id number], [id number] ####[facility] (DEFAULT)[address] [place] [address] Neut Abs# 4.6 x10 Normal 1.5-9.2 [facility] Comment on above: Performed By: #### 7 250718, [id number], [id number] ####[facility] (DEFAULT)[address] [place] [address] 78104 Neutrophils/100 WBC (Bld) 67 % Normal 44-88 [facility] Comment on above: Performed By: #### 7 255001, [id number], [id number] ####[facility] (DEFAULT)[address] [place] [address] 11527 BMP Standardon 02-02-2025 eGFR Non AA 58 mL/min/1.73m2 Invalid Interpretation Code [facility] Comment on above: Performed By: #### 7 498936, [id number], [id number] ####[facility] (DEFAULT)[address] [place] [address] eGFR AA >60 Invalid Interpretation Code [facility] Comment on above: Performed By: #### 7 594399, [id number], [id number] ####[facility] (DEFAULT)[address] [place] [address] 29907 Anion gap [Moles/Vol] 12.6 mmol/L Normal 5.0-19.0 [facility] Comment on above: Performed By: #### 7 038490, [id number], [id number] ####[facility] (DEFAULT)[address] [place] [address] 67608 Calcium [Mass/Vol] 9.3 mg/dL Normal 8.9-10.3 [facility] Comment on above: Performed By: #### 7 028298, [id number], [id number] ####[facility] (DEFAULT)[address] [place] [address] 68536 Chloride [Moles/Vol] 105 mmol/L Normal 101-111 [facility] Comment on above: Performed By: #### 7 663637, [id number], [id number] ####[facility] (DEFAULT)[address] [place] [address] 81394 CO2 [Moles/Vol] 24 mmol/L Normal 21-32 [facility] Comment on above: Performed By: #### 7 786162, [id number], [id number] ####[facility] (DEFAULT)[address] [place] [address] 23967 Creatinine [Mass/Vol] 1.23 mg/dL Normal 0.90-1.30 [facility] Comment on above: Performed By: #### 7 292424, [id number], [id number] ####[facility] (DEFAULT)[address] [place] [address] 10747 Glucose [Mass/Vol] 103.0 mg/dL Normal 74.0-118.0 [facility] Comment on above: Performed By: #### 7 352715, [id number], [id number] ####[facility] (DEFAULT)[address] [place] [address] 21599 Osmolality 280 mOsm/L Invalid Interpretation Code [facility] Comment on above: Performed By: #### 7 658601, [id number], [id number] ####[facility] (DEFAULT)[address] [place] [address] 23941 Potassium [Moles/Vol] 3.6 mmol/L Normal 3.6-5.1 [facility] Comment on above: Performed By: #### 7 047033, 53880285, [id number] ####[facility] (DEFAULT)[address] [place] [address] 88601 Sodium [Moles/Vol] 138.0 mmol/L Normal 136.0-144.0 [facility] Comment on above: Performed By: #### 7 460607, 71462562, [id number] ####[facility] (DEFAULT)[address] [place] [address] 73856 Urea nitrogen [Mass/Vol] 23 mg/dL Normal 8-26 [facility] Comment on above: Performed By: #### 7 075470, 02657543, [id number] ####[facility] (DEFAULT)[address] [place] [address] 48451 Urea nitrogen/Creatinine [Mass ratio] 18.6 mg/mg High 4.6-16.2 [facility] Comment on above: Performed By: #### 7 695872, 33585796, [id number] ####[facility] (DEFAULT)[address] [place] [address] 00895 CBC w/ Auto Diffon Erythrocyte distribution width (RBC) [Ratio] 14.5 % Normal 11.5-15.0 [facility] Comment on above: Performed By: #### 7 450420, 77227106, [id number] ####[facility] (DEFAULT)[address] [place] [address] 73675 Hematocrit (Bld) [Volume fraction] 42.0 % Normal 34.8-51.9 [facility] Comment on above: Performed By: #### 7 455237, 62640613, [id number] ####[facility] (DEFAULT)[address] [place] [address] 42297 Hemoglobin (Bld) [Mass/Vol] 14.4 g/dL Normal 11.8-17.7 [facility] Comment on above: Performed By: #### 7 960507, [id number], [id number] ####[facility] (DEFAULT)[address] [place] [address] 04971 Man Diff? Auto Invalid Interpretation Code [facility] Comment on above: Performed By: #### 7 318736, [id number], [id number] ####[facility] (DEFAULT)[address] [place] [address] 23272 MCH (RBC) [Entitic mass] 31 pg Normal 24-34 [facility] Comment on above: Performed By: #### 7 016550, [id number], [id number] ####[facility] (DEFAULT)[address] [place] [address] 68325 MCHC (RBC) [Mass/Vol] 34 g/dL Normal 26-37 [facility] Comment on above: Performed By: #### 7 688761, [id number], [id number] ####[facility] (DEFAULT)[address] [place] [address] 81829 MCV (RBC) [Entitic vol] 89 fL Normal 81-100 [facility] Comment on above: Performed By: #### 7 187101, [id number], [id number] ####[facility] (DEFAULT)[address] [place] [address] 40489 Platelet 233 x10 Normal 138-427 [facility] Comment on above: Performed By: #### 7 [id number], [id number], [id number] ####[facility] (DEFAULT)[address] [place] [address] 96177 Platelet mean volume (Bld) [Entitic vol] 9.5 fL Normal 6.3-10.2 [facility] Comment on above: Performed By: #### 7 [id number], [id number], [id number] ####[facility] (DEFAULT)[address] [place] [address] 99498 RBC 4.71 x10 Normal 3.70-5.30 [facility] Comment on above: Performed By: #### 7 [id number], [id number], [id number] ####[facility] (DEFAULT)[address] [place] [address] 62139 WBC 6.9 x10 Normal 3.5-10.5 [facility] Comment on above: Performed By: #### 7 [id number], [id number], [id number] ####[facility] (DEFAULT)[address] [place] [address] Telephoneon 02-02-2025 Telephone [phone] Oscar Escoto 1950 M [facility] Provider Department Center 02/02/2025 TRINITY DIAZ Family History Problem Relation Age of Onset Other Mother Coronary artery disease Mother Other Father Family Status - Relation Status Age at Mother Father Normal [facility] 36on 12-24-2024 38 Patient called back to say his BP's are still running a little high. Sometimes around 144-148 systolic, but not often. I advised him to take another 5mg of lisinopril in the afternoon's if BP is elevated. Dr. Amin's note per [facility] says add lisinopril 5-10 . He verbalized understanding and will continue to keep an eye on his BP. Normal [facility] Telephoneon 12-11-2024 Telephone [phone] Oscar Escoto 1950 [facility] Provider Department Center 12/11/2024 TRINITY DIAZ Family History Problem Relation Age of Onset Other Mother Coronary artery disease Mother Other Father Family Status - Relation Status Age at Mother Father Normal [facility] XR Knee - bilateral AP W sta ndingon 11-11-2024 Imaging Result: Standing AP shows no gross evidence of major arthritic process, overall anatomic alignment appeared to be well preserved. There was no acute bony process including but not limited to fracture and/or dislocation. Impression: no gross evidence of major arthritic process or structural damage bilateral knees [facility] XR Knee - bilateral AP W sta ndingOrdered By: Jr. Waldrop on 11-11-2024 [facility] Work Phone: Office Visiton 11-10-2024 Follow-up visit [id number] Oscar Escoto 1950 [facility] Provider Department Center 11/10/2024 ROXANNE MARTINEZ Family History Problem Relation Age of Onset Other Mother Coronary artery disease Mother Other Father Family Status - Relation Status Age at Mother Father Level of Service:90930 [place] OFFICE/OUTPATIENT ESTABLISHED LOW MDM 20 MIN Normal [facility] No Panel Informationon 11-09 Mary Lou Diane [...] was given by the patient. [facility] XR Knee - bilateral AP W sta ndingon 11-09-2024 Radiology Study observation (narrative) [facility] Ambulatory Visit Summaryon 1 12-12-2023 Ambulatory Visit [...] Natali IRAHETA MD Where: [facility] [place] [address] [place] [address]- You Need to Schedule the Following Appointments Follow Up with Natali IRAHETA MD, URL When: Comments: 6 mos Where: [facility] [address], [place] [address]- [phone] Medications What How Much When Instructions New ciprofloxacin (Cipro 500 mg Tab) 1 Tablets By Mouth Every 12 hours Duration: 30 Days Pickup at [facility] Unchanged finasteride (finasteride 5 mg Tab) 1 [...] physician if questions or concerns Pharmacy Information [facility]: [address] [place], [place] [id number] [phone] Allergies No Known Medication Allergies Problems Ongoing - Any problem that you are currently receiving treatment for. 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 Normal [facility] Urology Office/Clinic Noteon 10-12-2024 Urology Office/Clinic Note [...] [facility] [address], [place] [address] [id number] Additional Instructions: 6 mos w/ PSA Patient [...] Family history of kidney cancer Hx of [place] use of blood thinners Impotence Organic impotence [...] History Alco (more content not included)... Normal [facility] Comment on above: Result Comment: Elec tronically [...] degenerative change. No acute process. Finalized by Kavya De Oliveira MD on 10/08/2024 1:54 PM Normal [facility] No Panel Informationon 08-13 Type of biopsy: [...] taken Amount of lidocaine used: 1.0 cc [facility] Superficial Wound Cultureon 03-18-2023 Superficial [...] RESISTANT TO ALL B-LACTAM DRUGS. PERFORMED BY: [place] [address] [employer] ISABELLA MCKEON M.D. [facility] Comment on above: Performed By: #### C USUP #### [address] ECHOCARDIO M/2D COMPLETEon 0 03-12-2023 ECHOCARDIO M/2D COMPLETE Patient: OSCAR ESCOTO Exam Date: 03/12/2023 : 1950 Gender:M Ordering : DR NORTH CHAPIN . Admission #: [id number] Family : ROXANNE AMIN MD Order #: [id number] CLICK HERE TO VIEW EXAM ECHOCARDIOGRAM REPORT [...] Solorio M.D. on 03/12/2023 at 18:41 Normal [facility] US CAROTID ART BILon 04-18-2 023 [...] MARÍA BRYSON Date: 2023-03-12 15:01 Normal [facility] CBC AUTO DIFFon 03-06-2023 BASO # 0.1 103/ul Normal 0.0-0.1 [facility] Comment on above: Performed By: #### C BC #### [facility] [address] [place] [address] Dr. Sanjuana Kasper Basophils/100 WBC (Bld) 0.9 % Normal 0.2-2.0 [facility] Comment on above: Performed By: #### C BC #### [facility] [address] [place] [address] Dr. Sanjuana Kasper EO # 0.3 103/ul Normal 0.0-0.7 [facility] Comment on above: Performed By: #### C BC #### [facility] [address] [place] [address] Dr. Sanjuana Kasper Eosinophils/100 WBC (Bld) 5.0 % Normal 0.9-7.0 [facility] Comment on above: Performed By: #### C BC #### [facility] [address] [place] [address] Dr. Sanjuana Kasper Erythrocyte distribution width (RBC) [Ratio] 13.5 % Normal 11.0-15.0 [facility] Comment on above: Performed By: #### C BC #### [facility] [address] [place] [address] Dr. Sanjuana Kasper Hematocrit (Bld) [Volume fraction] 41.9 % Critically low 42.0-54.0 [facility] Comment on above: Performed By: #### C BC #### [facility] [address] [place] [address] Dr. Sanjuana Kasper Hemoglobin (Bld) [Mass/Vol] 13.9 g/dL Critically low 14.0-18.0 [facility] Comment on above: Performed By: #### C BC #### [facility] [address] [place] [address] Dr. Sanjuana Kasper IG # 0.02 10e3/ul Normal 0.00-0.03 [facility] Comment on above: Performed By: #### C BC #### [facility] [address] [place] [address] Dr. Sanjuana Kasper IG % 0.3 % Normal 0.0-0.5 [facility] Comment on above: Performed By: #### C BC #### [facility] [address] [place] [address] Dr. Sanjuana Kasper LYMPH # 1.4 103/ul Normal 1.2-3.8 [facility] Comment on above: Performed By: #### C BC #### [facility] [address] [place] [address] Dr. Sanjuana Kasper Lymphocytes/100 WBC (Bld) 23.8 % Normal 20.5-60.0 [facility] Comment on above: Performed By: #### C BC #### [facility] [address] [place] [address] Dr. Sanjuana Kasper MANUAL DIFF REQ NO Normal [facility] Comment on above: Performed By: #### C BC #### [facility] [address] [place] [address] Dr. Sanjuana Kasper MCH (RBC) [Entitic mass] 29.5 pg Normal 25.9-34.0 [facility] Comment on above: Performed By: #### C BC #### [facility] [address] [place] [address] Dr. Sanjuana Kasper MCHC (RBC) [Mass/Vol] 33.2 g/dL Normal 29.9-35.2 [facility] Comment on above: Performed By: #### C BC #### [facility] [address] [place] [address] Dr. Sanjuana Kasper MCV (RBC) [Entitic vol] 89.0 fL Normal 80.0-94.0 [facility] Comment on above: Performed By: #### C BC #### [facility] [address] [place] [address] Dr. Sanjuana Kasper MONO # 0.4 103/ul Normal 0.3-0.8 [facility] Comment on above: Performed By: #### C BC #### [facility] [address] [place] [address] Dr. Sanjuana Kasper Monocytes/100 WBC (Bld) 7.1 % Normal 1.7-12.0 [facility] Comment on above: Performed By: #### C BC #### [facility] [address] [place] [address] Dr. Sanjuana Kasper NEUT # 3.7 103/ul Normal 1.4-6.5 [facility] Comment on above: Performed By: #### C BC #### [facility] [address] [place] [address] Dr. Sanjuana Kasper Neutrophils/100 WBC (Bld) 62.9 % Normal 43.0-75.0 [facility] Comment on above: Performed By: #### C BC #### [facility] [address] [place] [address] Dr. Sanjuana Kasper Platelet mean volume (Bld) [Entitic vol] 10.6 fL Normal 9.5-13.5 [facility] Comment on above: Performed By: #### C BC #### [facility] [address] [place] [address] Dr. Sanjuana Kasper PLT 259 103/ul Normal 150-450 [facility] Comment on above: Performed By: #### C BC #### [facility] [address] [place] [address] Dr. Sanjuana Kasper RBC 4.71 106/ul Normal 4.70-6.10 [facility] Comment on above: Performed By: #### C BC #### [facility] [address] [place] [address] Dr. Sanjuana Kasper WBC 5.8 103/ul Normal 4.0-11.0 [facility] Comment on above: Performed By: #### C BC #### [facility] [address] [place] [address] Dr. Sanjuana Kasper GLYCOHEMOGLOBIN A1Con 2022 ADA RECOMMENDATION SEE BELOW Normal [facility] Comment on above: Result Comment: ADA RECOMMENDED LIMIT 4.0 - 6.0 ADA THERAPEUTIC TARGET < 7.0 ACTION SUGGESTED > 7.0 Performed By: #### A 1C #### [facility] [address] [place] [address] Dr. Sanjuana Kasper Glucose [Mass/Vol] 108 mg/dL Normal [facility] Comment on above: Performed By: #### A 1C #### [facility] [address] [place] [address] Dr. Sanjuana Kasper HbA1c (Bld) [Mass fraction] 5.4 % Normal 4.5-6.2 [facility] Comment on above: Performed By: #### A 1C #### [facility] [address] [address] [address] Sanjuana Kasper LIPID PROFILEon 03-06-2023 CHOL-HDL RATIO NORM SEE BELOW Normal [facility] Comment on above: Result Comment: 3.3 - 4.4 LOW RISK 4.4 - 7.1 AVERAGE RISK 7.1 - 11.0 MODERATE RISK >11.0 HIGH RISK Performed By: #### T SH, LIPID, BMP, LIVER #### [facility] [address] [address] [address] Sanjuana Kasper Cholesterol [Mass/Vol] 192 mg/dL Normal <=200 [facility] Comment on above: Performed By: #### T SH, LIPID, BMP, LIVER #### [facility] [address] [address] [address] Sanjuana Kasper Cholesterol in HDL [Mass/Vol] 61 mg/dL Critically high 40-60 [facility] Comment on above: Performed By: #### T SH, LIPID, BMP, LIVER #### [facility] [address] [address] [address] Sanjuana Kasper Cholesterol in LDL [Mass/Vol] 122.2 mg/dL Normal [facility] Comment on above: Performed By: #### T SH, LIPID, BMP, LIVER #### [facility] [address] [address] [address] Sanjuana Kasper Cholesterol.total/Cho lesterol in HDL [Mass ratio] 3.1 {ratio} Normal [facility] Comment on above: Performed By: #### T SH, LIPID, BMP, LIVER #### [facility] [address] [address] [address] Sanjuana Kasper HDL NORMAL > or = 60 mg/dl - LO W CARDIOVASCULAR RISK <40 mg/dl - HIGH CARDIOVASCULAR RISK Normal [facility] Comment on above: Performed By: #### T SH, LIPID, BMP, LIVER #### [facility] [address] [place] [address] Dr. Sanjuana Kasper LDL CALC NORMAL SEE BELOW Normal [facility] Comment on above: Result Comment: <100 mg/dl OPTIMAL 100 - 129 mg/dl NEAR OR ABOVE OPTIMAL 130 - 159 mg/dl BORDERLINE HIGH 160 - 189 mg/dl HIGH >190 mg/dl VERY HIGH Performed By: #### T SH, LIPID, BMP, LIVER #### [facility] [address] [address] [address] Sanjuana Kasper Triglyceride [Mass/Vol] 44 mg/dL Normal <=150 [facility] Comment on above: Performed By: #### T SH, LIPID, BMP, LIVER #### [facility] [address] [address] [address] Sanjuana Kasper VLDL CALC 8.8 mg/dL Normal [facility] Comment on above: Performed By: #### T SH, LIPID, BMP, LIVER #### [facility] [address] [address] [address] Sanjuana Kasper LIVER PROFILEon 03-06-2023 Albumin [Mass/Vol] 3.6 g/dL Normal 3.4-5.0 [facility] Comment on above: Performed By: #### T SH, LIPID, BMP, LIVER ####[facility] [address] [address]Dr. Sanjuana Kasper Albumin/Globulin [Mass ratio] 1.0 {ratio} Normal [facility] Comment on above: Performed By: #### T SH, LIPID, BMP, LIVER ####[facility] [address] [address]Dr. Sanjuana Kasper ALP [Catalytic activity/Vol] 91 U/L Normal 46-116 [facility] Comment on above: Performed By: #### T SH, LIPID, BMP, LIVER ####[facility] [address] [id number] Kasper ALT [Catalytic activity/Vol] 28 U/L Normal 16-63 [facility] Comment on above: Performed By: #### T SH, LIPID, BMP, LIVER ####[facility] [address] [id number] Kasper AST [Catalytic activity/Vol] 16 U/L Normal 15-37 [facility] Comment on above: Performed By: #### T SH, LIPID, BMP, LIVER ####[facility] [address] [address]Dr. Sanjuana Ranjith BILI, CONJUGATED 0.1 mg/dL Normal 0.0-0.2 [facility] Comment on above: Performed By: #### T SH, LIPID, BMP, LIVER ####[facility] [address] [address]Dr. Carlayazmin Kasper Bilirubin [Mass/Vol] 0.4 mg/dL Normal 0.2-1.0 [facility] Comment on above: Performed By: #### T SH, LIPID, BMP, LIVER ####[facility] [address] [address]Dr. Sanjuana Kasper Globulin (S) [Mass/Vol] 3.6 g/dL Normal [facility] Comment on above: Performed By: #### T SH, LIPID, BMP, LIVER ####[facility] [address] [address]Dr. Sanjuana Kasper Protein [Mass/Vol] 7.2 g/dL Normal 6.4-8.2 [facility] Comment on above: Performed By: #### T SH, LIPID, BMP, LIVER ####[facility] [address] [address]Dr. Sanjuana Kasper PROF CHEM 8 (BAS METB)on Anion gap [Moles/Vol] 12.2 mmol/L Normal [facility] Comment on above: Performed By: #### T SH, LIPID, BMP, LIVER ####[facility] [address] [address]Dr. Sanjuana Kasper Calcium [Mass/Vol] 9.1 mg/dL Normal 8.5-10.1 [facility] Comment on above: Performed By: #### T SH, LIPID, BMP, LIVER ####[facility] [address] [address]Dr. Sanjuana Kasper Chloride [Moles/Vol] 106 mmol/L Normal 98-107 [facility] Comment on above: Performed By: #### T SH, LIPID, BMP, LIVER ####[facility] [address] [address]Dr. Sanjuana Kasper CO2 [Moles/Vol] 26.9 mmol/L Normal 21.0-32.0 [facility] Comment on above: Performed By: #### T SH, LIPID, BMP, LIVER ####[facility] [address] [address]Dr. Sanjuana Kasper Creatinine [Mass/Vol] 0.98 mg/dL Normal 0.70-1.30 [facility] Comment on above: Performed By: #### T SH, LIPID, BMP, LIVER ####[facility] [address] [address]Dr. Sanjuana Kasper EGFR-AF CYMRAES >60 Normal >=60 [facility] Comment on above: Performed By: #### T SH, LIPID, BMP, LIVER ####[facility] [address] [place], [place] [address]Dr. Sanjuana Kasper EGFR-NON AF CYMRAES >60 Normal >=60 [facility] Comment on above: Performed By: #### T SH, LIPID, BMP, LIVER ####[facility] [address] [place], [place] [address]Dr. Sanjuana Kasper Glucose [Mass/Vol] 94 mg/dL Normal 74-106 [facility] Comment on above: Performed By: #### T SH, LIPID, BMP, LIVER ####[facility] [address] [address]Dr. Sanjuana Kasper Potassium [Moles/Vol] 4.1 mmol/L Normal 3.5-5.1 [facility] Comment on above: Performed By: #### T SH, LIPID, BMP, LIVER ####[facility] [address] [address]Dr. Sanjuana Kasper Sodium [Moles/Vol] 141 mmol/L Normal 136-145 [facility] Comment on above: Performed By: #### T SH, LIPID, BMP, LIVER ####[facility] [address] [place], [place] [address]Md. Sanjuana Kasper Urea nitrogen [Mass/Vol] 17.0 mg/dL Normal 7.0-18.0 [facility] Comment on above: Performed By: #### T SH, LIPID, BMP, LIVER ####[facility] [address] [place], [place] [address]Wq. Sanjuana Kasper Urea nitrogen/Creatinine [Mass ratio] 17.3 mg/mg Normal [facility] Comment on above: Performed By: #### T SH, LIPID, BMP, LIVER ####[facility] [address] [place], [place] [address]Ow. Sanjuana Kasper TSHon 03-06-2023 TSH 1.951 uIU/mL Normal 0.358-3.740 [facility] Comment on above: Performed By: #### T SH, LIPID, BMP, LIVER #### [facility] [address] [address] [address] FOOT LT WO [...] RAZ MATOS Date: 2022-12-20 14:53 Normal [facility] POINT OF CARE GLUCOSEon 11-0 Glucose [Mass/Vol] 94 mg/dL Normal 74-106 [facility] Comment on above: Performed By: #### P OCGLUC #### [facility] [address] [address] [address] Sanjuana Kasper XR FOOT LT 2Von [...] MARÍA BRYSON Date: 2022-09-27 18:28 Normal [facility] Covid-19 PCR (CVDTBH)on 08-26 SARS-CoV-2 (COVID-19) RNA DAISY+probe Ql (Unsp spec) Not detected Normal NOT DETECTED [facility] Comment on above: Result Comment: This test is not yet approved or cleared by the [place] FDA. When there are no FDA-approved or cleared tests available, and other criteria are met, FDA can make tests available under an emergency access mechanism called an Emergency Use Authorization (EUA). The EUA for this test is supported by the Composite Engineer of Health and Human Service's (HHS's) declaration [...] with SARS-CoV-2. Performed By: #### C VDTBH ####[facility] [address] [place], [place] [address]UsYonatan Kasper PROF CHEM 8 (BAS METB)on Anion gap [Moles/Vol] 11.6 mmol/L Normal [facility] Comment on above: Performed By: #### B MP ####[facility] [address] [place], [place] [address]YrYonatan Kasper Calcium [Mass/Vol] 8.6 mg/dL Normal 8.5-10.1 [facility] Comment on above: Performed By: #### B MP ####[facility] [address] [address]Dr. Sanjuana Kasper Chloride [Moles/Vol] 107 mmol/L Normal 98-107 [facility] Comment on above: Performed By: #### B MP ####[facility] [address] [address]Dr. Sanjuana Kasper CO2 [Moles/Vol] 26.2 mmol/L Normal 21.0-32.0 [facility] Comment on above: Performed By: #### B MP ####[facility] [address] [address]Dr. Sanjuana Kasper Creatinine [Mass/Vol] 1.28 mg/dL Normal 0.70-1.30 [facility] Comment on above: Performed By: #### B MP ####[facility] [address] [place], [place] [address]Dr. Sanjuana Kasper EGFR-AF CYMRAES >60 Normal >=60 [facility] Comment on above: Performed By: #### B MP ####[facility] [address] [place], [place] [address]Dr. Sanjuana Kasper EGFR-NON AF CYMRAES 56 mL/min/1.73m2 Critically low >=60 [facility] Comment on above: Performed By: #### B MP ####[facility] [address] [address]Dr. Sanjuana Kasper Glucose [Mass/Vol] 121 mg/dL Critically high 74-106 [facility] Comment on above: Performed By: #### B MP ####[facility] [address] [id number]. Sanjuana Kasper Potassium [Moles/Vol] 3.8 mmol/L Normal 3.5-5.1 [facility] Comment on above: Performed By: #### B MP ####[facility] [address] [address]Dr. Sanjuana Kasper Sodium [Moles/Vol] 141 mmol/L Normal 136-145 [facility] [place] [facility] Comment on above: Performed By: #### B MP ####[facility] [address] [address]Dr. Sanjuana Kasper Urea nitrogen [Mass/Vol] 24.0 mg/dL Critically high 7.0-18.0 [facility] Comment on above: Performed By: #### B MP ####[facility] [address] [place], [place] [address]Dr. Sanjuana Kasper Urea nitrogen/Creatinine [Mass ratio] 18.8 mg/mg Normal [facility] Comment on above: Performed By: #### B MP ####[facility] [address] [place], [place] [address]Dr. Sanjuana Kasper PROTIMEon 09-21-2022 INR Coag (PPP) [Relative time] 1.05 {INR} Normal [facility] Comment on above: Performed By: #### P TT, PT ####[facility] [address] [place], [place] [address]Dr. Sanjuana Kasper INR GUIDELINES SEE BELOW Normal [facility] Comment on above: Result Comment: VERONICA RED INR: 2.0 - 3.0 CONDITIONS NOT LISTED BELOW 2.5 - 3.5 FOR PROSTHETIC HEART VALVE REPLACEMENT 2.5 - 3.5 RECURRENT THROMBOSIS Performed By: #### P TT, PT ####[facility] [address] [place], [place] [address]Dr. Sanjuana Kasper PT Coag (PPP) [Time] 11.3 s Normal 9.0-11.6 [facility] Comment on above: Performed By: #### P TT, PT ####[facility] [address] [place], [place] [address]Dr. Sanjuana Kasper PTTon 09-21-2022 aPTT Coag (Bld) [Time] 30.0 s Normal 22.3-36.2 [facility] Comment on above: Performed By: #### P TT, PT ####[facility] [address] [place], [place] [address]Dr. Sanjuana Ksaper XR FOOT MOISES MIN 3 VIEWSon XR [...] MARÍA BRYSON Date: 2022-08-01 17:51 Normal [facility] Covid-19 PCR ([facility])on 05-25 SARS-CoV-2 (COVID-19) RNA DAISY+probe Ql (Unsp spec) Not detected Normal NOT DETECTED [facility] Comment on above: Result Comment: This test is not yet approved or cleared by the [place] FDA. When there are no FDA-approved or cleared tests available, and other criteria are met, FDA can make tests available under an emergency access mechanism called an Emergency Use Authorization (EUA). The EUA for this test is supported by the Composite Engineer of Health and Human Service's (HHS's) declaration [...] consistent with SARS-CoV-2. Performed By: #### [facility] #### [facility] [address] [place] [address] Dr. Sanjuana Medina 04-20-2022 L -- ---- Specimen: [id number] Received: 04/20/22 Status: LENIN Maya Num: [id number] Spec Type: Surgical Subm Dr: Miguel Astorga DO Tissues: A Debridement-Skin/Other Than Skin (SCALP) Procedures: HE Stain, Gross/Micro L3 ---- Patient Age/Sex Location Account Attending Physician ---- Oscar Escoto 72/M [place] [id number] Miguel Astorga DO ---- SPEC NUM: [id number] RECD: 04/20/22 STATUS: LENIN MAYA NUM: [id number] DEMARCUS: 04/20/22- SUBM DR: Miguel Astorga DO ENTERED: 04/20/22 ALEC GRANDE: SPEC TYPE: Surgical DEPT: S ORDERED: HE [...] thin rim of owusu unremarkable appearing skin. [employer] sections are submitted in one cassette labeled A1. Type of Fixative: 10% Neutral Buffered Formalin (NORM/ROHIT) Microscopic Description One glass slide with H E stained material has been examined. The microscopic findings support the above pathologic diagnosis. ---- Specimen: [id number] Received: 04/20/22 Status: LENIN Starkeyraghav Num: [id number] Spec Type: Surgical Subm Dr: Miguel Astorga DO Tissues: A Debridement-Skin/Other Than Skin (SCALP) Procedures: HE Stain, Gross/Micro L3 ---- Patient: TigistOscar [id number] (Continued) ---- Specimen: Received: 04/20/22 (Continued) Signed (signature on file) Favio Chong MD 04/24/222025 ---- Specimen: Received: 04/20/22 Status: LENIN Starkeyraghav Num: [id number] Spec Type: Surgical Subm Dr: Miguel Astorga DO Tissues: A Debridement-Skin/Other Than Skin (SCALP) Procedures: HE Stain, Gross/Micro L3 ---- Patient: Oscar Escoto [id number] (Continued) ---- Specimen: Received: 04/20/22 (Continued) CPT Codes 31388 ---- ---- Specimen: [id number] Received: 04/20/22 Status: LENIN Maya Num: [id number] Spec Type: Surgical Subm Dr: Miguel Astorga DO Tissues: A Debridement-Skin/Other Than Skin (SCALP) Procedures: HE Stain, Gross/Micro L3 ---- Patient: Oscar Escoto [id number] (Continued) ---- Signed (signature on file) Favio Chong MD 04/24/222025 [facility] Basic Metabolic Panelon 03-26 Calcium [Mass/Vol] 9.1 mg/dL Normal 8.2-10.2 [facility] Comment on above: Result Comment: PERF ORMED BY: [place] [address] PATHOLOGIST AIRCRAFT INSTRUMENT ENGINEER ISABELLA MCKEON M.D. Performed By: #### B MP, CBC #### [address] Chloride [Moles/Vol] 103 mmol/L Normal 95-114 [facility] Comment on above: Performed By: #### B MP, CBC #### [address] CO2 [Moles/Vol] 25.0 mmol/L Normal 22.0-30.0 [facility] Comment on above: Performed By: #### B MP, CBC #### [address] Creatinine [Mass/Vol] 1.13 mg/dL Normal 0.64-1.27 [facility] Comment on above: Performed By: #### B MP, CBC #### [address] Estimated GFR ( Ariane > 60 [facility] Comment on above: Result Comment: GFR estimated reference range: According to KDOQI guidelines, <60 ml/min/1.73m2 is sufficient to diagnose a patient with chronic kidney disease. Performed By: #### B MP, CBC #### [address] Estimated GFR (Non- Am > 60 [facility] Comment on above: Performed By: #### B MP, CBC #### [address] Glucose [Mass/Vol] 102 mg/dL High 70-100 [facility] Comment on above: Result Comment: Rosalia Glucose Reference Range is dependent on time and content of last meal. Glucose of more than 200 mg/dL in a nonstressed, ambulatory subject supports the diagnosis of Diabetes Mellitus. ADA recommended reference range Performed By: #### B MP, CBC #### [address] Potassium [Moles/Vol] 4.2 mmol/L Normal 3.5-5.1 [facility] Comment on above: Performed By: #### B MP, CBC #### [facility] [address] Sodium [Moles/Vol] 137 mmol/L Normal 136-146 [facility] Comment on above: Performed By: #### B MP, CBC #### [facility] [address] Urea nitrogen [Mass/Vol] 18 mg/dL Normal 9-[address] [facility] Comment on above: Performed By: #### B MP, CBC #### [facility] [address] Basophils Auto (Bld) [#/Vol] Ordered By: Miguel Astorga on 04-19-2022 Basophils (Bld) [#/Vol] 0.1 10*3/uL 0.0-0.[address] [facility] Basophils/100 WBC Auto (Bld) Ordered By: Miguel Astorga on 04-19-2022 Basophils/100 WBC (Bld) 0.9 % [facility] Blood hemoglobin measurement (mass/volume)Ordered By: Miguel Astorga on 04-19-2022 Hemoglobin (Bld) [Mass/Vol] 14.3 g/dL 13.0-17.[address] [facility] Blood leukocytes automated c ount (number/volume)Ordered By: Miguel Astorga on 04-19-2022 WBC (Bld) [#/Vol] 5.5 10*3/uL 4.5-11.0 [facility] COVID-19 FRMCon 04-19-2022 SARS-CoV-2 (COVID-19) RNA DAISY+probe Ql (Unsp spec) Negative Normal Negative [facility] Comment on above: Order Comment: Comme nt For surgery tomorrow Healthcare Worker?: N Result Comment: Testing for SARS-CoV-2 by RT-PCR This test was developed and its performance characteristics determined by [employer] ([employer]) and validated at the [facility]. This test has not been [...] is terminated or revoked sooner. PERFORMED BY: [place] [address] PATHOLOGIST AIRCRAFT INSTRUMENT ENGINEER ISABELLA MCKEON M.D. Performed By: #### C OVID 19 [facility] [place] [facility] #### [address] COVID-19 Positive/NegativeOr dered By: Miguel Astorga on 04-19-2022 SARS-CoV-2 (COVID-19) N gene DAISY+probe Ql (Resp) Negative Negative [facility] Comment on above: Testing for SARS-CoV -2 by RT-PCR This test was developed and its performance characteristics determined by [employer] ([employer]) and validated at the [facility]. This test has not been [...] [#/Vol] 0.1 10*3/uL Normal 0.0-0.[address] [facility] Comment on above: Result Comment: PERF ORMED BY: [place] [address] PATHOLOGIST AIRCRAFT INSTRUMENT ENGINEER ISABELLA MCKEON M.D. Performed By: #### B MP, CBC #### [address] Basophils/100 WBC (Bld) 0.9 % Normal . [facility] Comment on above: Performed By: #### B MP, CBC #### [place] [address] [place] Eosinophils (Bld) [#/Vol] 0.2 10*3/uL Normal 0.0-0.[address] [facility] Comment on above: Performed By: #### B MP, CBC #### [address] Eosinophils/100 WBC (Bld) 3.9 % Normal . [facility] Comment on above: Performed By: #### B MP, CBC #### [address] Erythrocyte distribution width (RBC) [Ratio] 14.1 % Normal 12.0-14.[address] [facility] Comment on above: Performed By: #### B MP, CBC #### [address] Hematocrit (Bld) [Volume fraction] 43.0 % Normal 38.8-50.[address] [facility] Comment on above: Performed By: #### B MP, CBC #### [place] [address] [place] Hemoglobin (Bld) [Mass/Vol] 14.3 g/dL Normal 13.0-17.[address] [facility] Comment on above: Performed By: #### B MP, CBC #### [address] Lymphocytes (Bld) [#/Vol] 1.4 10*3/uL Normal 1.00-4.[address] [facility] Comment on above: Performed By: #### B MP, CBC #### [facility] [address] [place] [address] [place] Lymphocytes/100 WBC (Bld) 25.7 % Normal . [facility] Comment on above: Performed By: #### B MP, CBC #### [facility] [address] MCH (RBC) [Entitic mass] 29.9 pg Normal 27.5-35.[address] [facility] Comment on above: Performed By: #### B MP, CBC #### [facility] [address] MCV (RBC) [Entitic vol] 89.8 fL Normal 83.5-[address] [facility] Comment on above: Performed By: #### B MP, CBC #### [address] Mean Corpuscular HGB Conc 33.3 g/dL Normal 32.5-35.[address] [facility] Comment on above: Performed By: #### B MP, CBC #### [facility] [address] [place] [address] [place] Monocytes (Bld) [#/Vol] 0.4 10*3/uL Normal 0.0-0.[address] [facility] Comment on above: Performed By: #### B MP, CBC #### [place] [address] [place] Monocytes/100 WBC (Bld) 6.9 % Normal . [facility] Comment on above: Performed By: #### B MP, CBC #### [facility] [address] [place] [address] [place] Neutrophils (Bld) [#/Vol] 3.5 10*3/uL Normal 1.8-7.[address] [facility] Comment on above: Performed By: #### B MP, CBC #### [facility] [address] Neutrophils/100 WBC (Bld) 62.6 % Normal . [facility] Comment on above: Performed By: #### B MP, CBC #### [facility] [address] Nucleated RBC/100 WBC (Bld) [Ratio] 0.1 % Normal 0-0.[address] [facility] Comment on above: Performed By: #### B MP, CBC #### [facility] [address] Platelet mean volume (Bld) [Entitic vol] 8.9 fL Normal 6.6-10.[address] [facility] Comment on above: Performed By: #### B MP, CBC #### [facility] [address] Platelets (Bld) [#/Vol] 260 10*3/uL Normal 150-[address] [facility] Comment on above: Performed By: #### B MP, CBC #### [address] RBC (Bld) [#/Vol] 4.79 10*6/uL Normal 3.90-5.60 [facility] Comment on above: Performed By: #### B MP, CBC #### [facility] [address] WBC (Bld) [#/Vol] 5.5 10*3/uL Normal 4.5-11.0 [facility] Comment on above: Performed By: #### B MP, CBC #### [address] Creatinine and Glomerular fi ltration rate.predicted panel (S/P/Bld)Ordered By: Miguel Astorga on 04-19-2022 Creatinine [Mass/Vol] 1.13 mg/dL 0.64-1.27 [facility] ECG 12 lead ECGon 04-19-2022 ECG 12 lead ECG [facility] [place] [address] [place] [address] Electrocardiograph Report Signed Patient: Oscar Escoto MR#: [id number] : 1950 Acct:[id number] Age/Sex: 72 / M ADM Date: 04/19/22 Loc: PS Room: Type: DEP CLI Attending Dr: Miguel Astorga DO Ordering Provider: [...] Suzie Garza MD 0 04/20/[address] [facility] Eosinophils Auto (Bld) [#/Vo l]Ordered By: Miguel Astorga on 04-19-2022 Eosinophils (Bld) [#/Vol] 0.2 10*3/uL 0.0-0.[address] [facility] Eosinophils/100 WBC Auto (Bl d)Ordered By: Miguel Astorga on 04-19-2022 Eosinophils/100 WBC (Bld) 3.9 % [facility] Erythrocyte distribution wid th Auto (RBC) [Ratio]Ordered By: Miguel Astorga on 04-19-2022 Erythrocyte distribution width (RBC) [Ratio] 14.1 % 12.0-14.[address] [facility] Estimated glomerular filtrat ion rate (GFR) non- AmericanOrdered By: Miguel Astorga on 04-19-2022 GFR/1.73 sq M.predicted among non-blacks MDRD (S/P/Bld) [Vol rate/Area] > 60 mL/Min [facility] Hematocrit Auto (Bld) [Volum e fraction]Ordered By: Miguel Astorga on 04-19-2022 Hematocrit (Bld) [Volume fraction] 43.0 % 38.8-50.[address] [facility] Laboratory - Hematology and Cell countsOrdered By: Miguel Astorga on 04-19-2022 Nucleated RBC/100 WBC (Bld) [Ratio] 0.1 % 0-0.[address] [facility] Lymphocytes Auto (Bld) [#/Vo l]Ordered By: Miguel Astorga on 04-19-2022 Lymphocytes (Bld) [#/Vol] 1.4 10*3/uL 1.00-4.[address] [facility] Lymphocytes/100 WBC Auto (Bl d)Ordered By: Miguel Astorga on 04-19-2022 Lymphocytes/100 WBC (Bld) 25.7 % [facility] MCH Auto (RBC) [Entitic mass ]Ordered By: Miguel Astorga on 04-19-2022 MCH (RBC) [Entitic mass] 29.9 pg 27.5-35.[address] [facility] MCHC Auto (RBC) [Mass/Vol]Or dered By: Miguel Astorga on 04-19-2022 MCHC (RBC) [Mass/Vol] 33.3 g/dL 32.5-35.6 [facility] MCV Auto (RBC) [Entitic vol] Ordered By: Miguel Astorga on 04-19-2022 MCV (RBC) [Entitic vol] 89.8 fL 83.5-[address] [facility] Monocytes Auto (Bld) [#/Vol] Ordered By: Miguel Astorga on 04-19-2022 Monocytes (Bld) [#/Vol] 0.4 10*3/uL 0.0-0.[address] [facility] Monocytes/100 WBC Auto (Bld) Ordered By: Miguel Astorga on 04-19-2022 Monocytes/100 WBC (Bld) 6.9 % [facility] Neutrophils Auto (Bld) [#/Vo l]Ordered By: Miguel Astorga on 04-19-2022 Neutrophils (Bld) [#/Vol] 3.5 10*3/uL 1.8-7.[address] [facility] Neutrophils/100 WBC Auto (Bl d)Ordered By: Miguel Astorga on 04-19-2022 Neutrophils/100 WBC (Bld) 62.6 % [facility] No Panel InformationOrdered By: Miguel Astorga on 04-19-2022 Estimated GFR () > 60 mL/Min [facility] Comment on above: GFR estimated refere nce range: According to KDOQI guidelines, <60 ml/min/1.73m2 is sufficient to diagnose a patient with chronic kidney disease. Pharmacy Creatinine Clearance (Chem N/A [facility] Platelet mean volume Auto (B ld) [Entitic vol]Ordered By: Miguel Astorga on 04-19-2022 Platelet mean volume (Bld) [Entitic vol] 8.9 fL 6.6-10.[address] [facility] Platelets Auto (Bld) [#/Vol] Ordered By: Miguel Astorga on 04-19-2022 Platelets (Bld) [#/Vol] 260 10*3/uL 150-[address] [facility] RBC Auto (Bld) [#/Vol]Ordere d By: Miguel Astorga on 04-19-2022 RBC (Bld) [#/Vol] 4.79 10*6/uL 3.90-5.60 [facility] Serum or plasma calcium dieter urement (mass/volume)Ordered By: Miguel Astorga on 04-19-2022 Calcium [Mass/Vol] 9.1 mg/dL 8.2-10.2 [facility] Serum or plasma chloride shashank surement (moles/volume)Ordered By: Miguel Astorga on 04-19-2022 Chloride [Moles/Vol] 103 mmol/L 95-114 [facility] Serum or plasma glucose dieter urement (mass/volume)Ordered By: Miguel Astorga on 04-19-2022 Glucose [Mass/Vol] 102 mg/dL 70-100 [facility] Comment on above: ADA recommended refe rence range Random Glucose Reference Range is dependent on time and content of last meal. Glucose of more than 200 mg/dL in a nonstressed, ambulatory subject supports the diagnosis of Diabetes Mellitus. Serum or plasma potassium me asurement (moles/volume)Ordered By: Miguel Astorga on 04-19-2022 Potassium [Moles/Vol] 4.2 mmol/L 3.5-5.1 [facility] Serum or plasma sodium measu rement (moles/volume)Ordered By: Miguel Astorga on 04-19-2022 Sodium [Moles/Vol] 137 mmol/L 136-146 [facility] Serum or plasma total carbon dioxide measurement (moles/volume)Ordered By: Miguel Astorga on 04-19-2022 CO2 [Moles/Vol] 25.0 mmol/L 22.0-30.0 [facility] Serum or plasma urea nitroge n measurement (mass/volume)Ordered By: Miguel Astorga on 04-19-2022 Urea nitrogen [Mass/Vol] 18 mg/dL 9- [facility] Vital Signs Date Time Vital Sign Value Performing Clinician Facility 07-14-2025 10:16-0400 Body height 188 cm Kavya Germain DO Work Phone: [facility] 07-14-2025 10:16-0400 Body mass index (BMI) [Ratio] 31.33 kg/m2 Kavya Germain DO Work Phone: [facility] 07-14-2025 10:16-0400 Body weight 110.68 kg Kavya Germain DO Work Phone: [facility] 06-30-2025 07:57-0400 Body height 188 cm North Chapin MD Work Phone: [facility] 06-30-2025 07:57-0400 Body mass index (BMI) [Ratio] 31.97 kg/m2 oNrth Chapin MD Work Phone: [facility] 06-30-2025 07:57-0400 Body temperature 97.5 [degF] North Chapin MD Work Phone: [facility] 06-30-2025 07:57-0400 Body weight 112.95 kg North Chapin MD Work Phone: [facility] 06-30-2025 07:57-0400 Diastolic blood pressure 62 mm[Hg] North Chapin MD Work Phone: [facility] 06-30-2025 07:57-0400 Heart rate 68 /min North Chapin MD Work Phone: [facility] 06-30-2025 07:57-0400 Respiratory rate 20 /min North Chapin MD Work Phone: [facility] 06-30-2025 07:57-0400 SaO2% (BldA) [Mass fraction] 95 % North Chapin MD Work Phone: [facility] 06-30-2025 07:57-0400 Systolic blood pressure 148 mm[Hg] North Chapin MD Work Phone: [facility] 04-05-2025 12:41-0400 Blood Pressure Location Natali IRAHETA [facility] 04-05-2025 12:41-0400 Body temperature 98.6 [degF] Natali IRAHETA [facility] 04-05-2025 12:41-0400 Diastolic blood pressure 68 mm[Hg] Natali IRAHETA [facility] 04-05-2025 12:41-0400 Heart rate 66 /min Natalitasha IRAHETA [facility] 04-05-2025 12:41-0400 Respiratory rate 19 /min Natali IRAHETA [facility] 04-05-2025 12:41-0400 Systolic blood pressure 128 mm[Hg] Natali IRAHETA [facility] 03-29-2025 14:09-0400 Body height 188 cm North Chapin MD Work Phone: [facility] 03-29-2025 14:09-0400 Body mass index (BMI) [Ratio] 33.38 kg/m2 North Chapin MD Work Phone: [facility] 03-29-2025 14:09-0400 Body temperature 97.81 [degF] North Chapin MD Work Phone: [facility] 03-29-2025 14:09-0400 Body weight 117.94 kg North Chapin MD Work Phone: [facility] 03-29-2025 14:09-0400 Diastolic blood pressure 68 mm[Hg] North Chapin MD Work Phone: [facility] 03-29-2025 14:09-0400 Heart rate 64 /min North Chapin MD Work Phone: [facility] 03-29-2025 14:09-0400 Respiratory rate 18 /min North Chapin MD Work Phone: [facility] 03-29-2025 14:09-0400 SaO2% (BldA) [Mass fraction] 97 % North Chapin MD Work Phone: [facility] 03-29-2025 14:09-0400 Systolic blood pressure 142 mm[Hg] North Chapin MD Work Phone: [facility] 02-02-2025 15:24-0400 Body height 188 cm Bud SUBRAMANIAN Work Phone: [facility] 02-02-2025 15:24-0400 Body mass index (BMI) [Ratio] 31.97 kg/m2 Bud SUBRAMANIAN Work Phone: [facility] 02-02-2025 15:24-0400 Body weight 112.95 kg Bud SUBRAMANIAN Work Phone: [facility] 10-12-2024 15:33-0500 Blood Pressure Location Natali IRAHETA [facility] 10-12-2024 15:33-0500 Body temperature 98.6 [degF] Natali IRAHETA [facility] 10-12-2024 15:33-0500 Diastolic blood pressure 75 mm[Hg] Natali IRAHETA [facility] 10-12-2024 15:33-0500 Heart rate 60 /min Natali IRAHETA [facility] 10-12-2024 15:33-0500 Respiratory rate 16 /min Natali IRAHETA [facility] 10-12-2024 15:33-0500 Systolic blood pressure 128 mm[Hg] Natali IRAHETA [facility] 10-07-2024 13:39-0500 Body height 188 cm Cecilia Verhoff PA-C Work Phone: [facility] [employer] [facility] 10-07-2024 13:39-0500 Body mass index (BMI) [Ratio] 31.33 kg/m2 Cecilia Verhoff PA-C Work Phone: [facility] [employer] [facility] 10-07-2024 13:39-0500 Body weight 110.68 kg Cecilia Verhoff PA-C Work Phone: [facility] [facility] 10-07-2024 13:39-0500 Diastolic blood pressure 68 mm[Hg] Cecilia Verhoff PA-C Work Phone: [facility] [employer] [facility] 10-07-2024 13:39-0500 Heart rate 66 /min Cecilia Verhoff PA-C Work Phone: [facility] [employer] [facility] 10-07-2024 13:39-0500 SaO2% (BldA) [Mass fraction] 94 % Cecilia Verhoff PA-C Work Phone: [facility] 10-07-2024 13:39-0500 Systolic blood pressure 133 mm[Hg] Cecilia Verhoff PA-C Work Phone: [facility] [employer] [facility] 06-24-2023 15:47-0400 Blood Pressure Location Natali IRAHETA [facility] 06-24-2023 15:47-0400 Diastolic blood pressure 80 mm[Hg] Natali IRAHETA [facility] 06-24-2023 15:47-0400 Heart rate 68 /min Natali IRAHETA [facility] 06-24-2023 15:47-0400 Respiratory rate 16 /min Natali IRAHETA [facility] 06-24-2023 15:47-0400 Systolic blood pressure 130 mm[Hg] Natali IRAHETA [facility] 05-07-2022 14:57-0400 Blood Pressure Location Natali IRAHETA [facility] 05-07-2022 14:57-0400 Diastolic blood pressure 81 mm[Hg] Natali IRAHETA [facility] 05-07-2022 14:57-0400 Heart rate 72 /min Natali IRAHETA [facility] 05-07-2022 14:57-0400 Respiratory rate 16 /min Natali IRAHETA [facility] 05-07-2022 14:57-0400 Systolic blood pressure 149 mm[Hg] Natali IRAHETA [facility] 04-20-2022 15:00-0400 Diastolic blood pressure 58 mm[Hg] DO Miguel Astorga Work Phone: [facility] 04-20-2022 15:00-0400 Heart rate 72 /min DO Miguel Toribioceshelby Work Phone: [facility] 04-20-2022 15:00-0400 Respiratory rate 16 /min DO Miguel Toribioceshelby Work Phone: [facility] 04-20-2022 15:00-0400 SaO2% (BldA) [Mass fraction] 95 % DO Miguel Toribioceshelby Work Phone: [facility] 04-20-2022 15:00-0400 Systolic blood pressure 118 mm[Hg] DO Miguel Toribioceshelby Work Phone: [facility] 04-20-2022 13:09-0400 Body temperature 97.5 [degF] DO Miguel Toribioceshelby Work Phone: [facility] 04-20-2022 13:09-0400 Inhaled oxygen flow rate 6 L/min DO Miguel Astorga Work Phone: [facility] 04-20-2022 12:40-0400 Body height 187.96 cm DO Miguel Astorga Work Phone: [facility] 04-20-2022 12:40-0400 Body mass index (BMI) [Ratio] 30.9 kg/m2 DO Miguel Astorga Work Phone: [facility] 04-20-2022 12:40-0400 Body weight 109.4 kg DO Miguel Astorga Work Phone: [facility] Encounters Encounter Date Encounter Type Care Provider Facility Start: 10-25-2025 ambulatory Natali Zelaya ty:[facility] Start: 07-15-2025 ambulatory [facility] Start: 07-15-2025 ambulatory [facility] Start: 07-14-2025 End: 07-14-2025 Office outpatient new 20 minutes Kavya Germain DO Work Phone: [facility] Comment on above: Chronic epididymitis (Primary Dx) Start: 07-14-2025 End: 07-14-2025 [facility] Start: 07-02-2025 End: 07-02-2025 Clinisync Result Encounter North Chapin MD Work Phone: [facility] External Department Unsolicited Start: 07-02-2025 End: 07-02-2025 Clinisync Result Encounter North Chapin MD Work Phone: [facility] External Department Unsolicited Start: 06-30-2025 End: 06-30-2025 Bamboo flowsheet North Chapin MD Work Phone: [facility] Start: 06-30-2025 End: 06-30-2025 Bamboo flowsheet North Chapin MD Work Phone: [facility] Start: 06-30-2025 End: 06-30-2025 ambulatory NORTH CHAPIN Not Available Start: 06-30-2025 End: 06-30-2025 Office outpatient visit 15 minutes North Chapin MD Work Phone: [facility] Comment on above: Inguinal pain, right (Primary Dx); H/O epididymitis Start: 06-23-2025 ambulatory LOYD ADDISON [facility] Start: 05-17-2025 ambulatory ROXANNE [facility] Start: 05-12-2025 End: 05-12-2025 Patient encounter procedure Sakina Carpenter MD Work Phone: [facility] Comment on above: Basal cell carcinoma (BCC) of right forearm (Primary Dx); Basal cell carcinoma of skin of left lower limb, including hip Start: 05-12-2025 End: 05-12-2025 ambulatory SAKINA CARPENTER Not Available Start: 04-30-2025 End: 04-30-2025 Damianboo flowsbest Carpenter MD Work Phone: [facility] Start: 04-30-2025 End: 04-30-2025 Bamboo flowsbest Carpenter MD Work Phone: [facility] Start: 04-30-2025 End: 04-30-2025 Patient encounter procedure Sakina Carpenter MD Work Phone: [facility] Comment on above: Basal cell carcinoma of skin of left lower limb, including hip (Primary Dx) Start: 04-30-2025 End: 04-30-2025 ambulatory SAKINA CARPENTER Not Available Start: 04-21-2025 End: 04-21-2025 ambulatory WALKER SHERWIN [facility] Start: 04-12-2025 End: 04-12-2025 Postop follow up visit related to original px Nneka Hernandez STAFF TRAINER Work Phone: [facility] Comment on above: Status post arthrosc opy of left knee (Primary Dx) Start: 04-12-2025 End: 04-12-2025 ambulatory NNEKA HERNANDEZ Not Available Start: 04-12-2025 End: 04-12-2025 Bamboo flowsheet Nneka Hernandez NP Work Phone: [facility] Start: 04-12-2025 End: 04-12-2025 Bamboo flowsheet Nneka Hernandez STAFF TRAINER Work Phone: [facility] Start: 04-12-2025 [facility] Start: 04-05-2025 End: 04-05-2025 ambulatory Natali IRAHETA Facility:[facility] Start: 04-05-2025 End: 04-05-2025 Patient encounter procedure Natali IRAHETA [facility] Start: 04-03-2025 End: 04-03-2025 Clinisync Result Encounter North Chapin MD Work Phone: [facility] External Department Unsolicited Start: 04-03-2025 End: 04-03-2025 Clinisync Result Encounter North Chapin MD Work Phone: [facility] External Department Unsolicited Start: 03-29-2025 End: 03-29-2025 Bamboo flowsheet North Chapin MD Work Phone: [facility] Start: 03-29-2025 End: 03-29-2025 Bamboo flowsheet North Chapin MD Work Phone: [facility] Start: 03-29-2025 End: 03-29-2025 Patient encounter procedure North Chapin MD Work Phone: [facility] Healthcare Work Phone: Start: 03-29-2025 End: 03-29-2025 Postop follow up visit related to original px North Chapin MD Work Phone: [facility] Comment on above: Medicare annual well ness visit, subsequent (Primary Dx); Prediabetes; Dyslipidemia ([facility]/HCC); Encounter for long-term (current) use of medications; Screening PSA (prostate specific antigen); Paroxysmal atrial fibrillation ([facility]/HCC) Start: 03-29-2025 End: 03-29-2025 ambulatory NORTH CHAPIN Not Available Start: 03-24-2025 End: 03-24-2025 Bamboo flowsheet Sakina Carpenter MD Work Phone: [facility] Start: 03-24-2025 End: 03-24-2025 Bamboo flowsheet Sakina Carpenter MD Work Phone: [facility] Start: 03-24-2025 End: 03-24-2025 Office outpatient visit 15 minutes Sakina Carpenter MD Work Phone: [facility] Comment on above: Seborrheic keratosis (Primary Dx); Actinic keratosis; Neoplasm of unspecified behavior of bone, soft tissue, and skin; Lentigines; History of malignant neoplasm of skin Start: 03-24-2025 End: 03-24-2025 ambulatory SAKINA CARPENTER Not Available Start: 2025 End: 2025 Bamboo flowsheet Nneka Hernandez NP Work Phone: [facility] Start: 2025 End: 2025 Bamboo flowsheet Nneka Hernandez STAFF TRAINER Work Phone: [facility] Start: 2025 End: 2025 Postop follow up visit related to original px Nneka Hernandez STAFF TRAINER Work Phone: [facility] Comment on above: Status post arthrosc opy of left knee (Primary Dx) Start: 2025 End: 2025 ambulatory NNEKA HERNANDEZ Not Available Start: 03-04-2025 ambulatory [facility] Start: 03-01-2025 End: 03-01-2025 ambulatory [facility] Facility:[facility] Start: 02-26-2025 End: 02-28-2025 Refill Nneka Hernandez STAFF TRAINER Work Phone: [facility] Comment on above: Internal derangement of left knee (Primary Dx) Start: 02-03-2025 ambulatory [facility] Start: 02-02-2025 End: 02-02-2025 ambulatory BUD CUMMINS Not Available Start: 02-02-2025 End: 02-02-2025 Patient encounter procedure Bud SUBRAMANIAN Work Phone: [facility] Comment on above: Pre-op examination ( Primary Dx) Start: 02-02-2025 End: 02-02-2025 Preprocedural examination done Bud SUBRAMANIAN Work Phone: [facility] Healthcare Work Phone: Start: 02-02-2025 End: 02-02-2025 Bamboo flowsheet Bud SUBRAMANIAN Work Phone: [facility] Start: 02-02-2025 End: 02-02-2025 Bamboo flowsheet Bud Cummins PA Work Phone: [facility] Start: 02-02-2025 End: 02-02-2025 ambulatory NORTH CHAPIN Facility:[facility] Start: 02-02-2025 Encounter for other preprocedural examination [facility] Start: 12-25-2024 End: 12-25-2024 Bamboo flowsheet JrYonatan Waldrop DO Work Phone: [facility] Start: 12-25-2024 End: 12-25-2024 Bamboo flowsheet JrYonatan Waldrop DO Work Phone: [facility] Start: 12-25-2024 End: 12-25-2024 Office outpatient visit 25 minutes JrYonatan Sweeney [facility] DO Work Phone: [facility] Comment on above: Left knee pain, unsp ecified chronicity (Primary Dx); Internal derangement of left knee Start: 12-25-2024 End: 12-25-2024 ambulatory ENRRIQUE ZIMMERMAN Not Available Start: 12-18-2024 ambulatory [facility] Start: 12-11-2024 End: 12-14-2024 Telephone encounter Mary Lou Diane STAFF TRAINER Work Phone: [facility] Comment on above: RX Start: 12-10-2024 End: 12-10-2024 Telephone encounter Mary Lou Diane STAFF TRAINER Work Phone: [facility] Comment on above: MRI Start: 12-05-2024 End: 12-07-2024 Refill North Chapin MD Work Phone: [facility] Comment on above: Anxiety disorder, un specified type; Restless leg syndrome Start: 11-30-2024 End: 11-30-2024 Bamboo flowsheet Mary Lou Deckering STAFF TRAINER Work Phone: [facility] Start: 11-30-2024 End: 11-30-2024 Bamboo flowsheet Mary Lou Peterson Apling STAFF TRAINER Work Phone: [facility] Start: 11-30-2024 End: 11-30-2024 Office outpatient visit 15 minutes Mary Lou Diane STAFF TRAINER Work Phone: [facility] Comment on above: Left knee pain, unsp ecified chronicity (Primary Dx); Arthritis of left knee; Internal derangement of left knee Start: 11-30-2024 End: 11-30-2024 ambulatory MARY LOU Peterson APLALAN Not Available Start: 11-13-2024 ambulatory [facility] Start: 11-10-2024 End: 11-10-2024 ambulatory [facility] Start: 11-09-2024 End: 11-09-2024 Bamboo flowsheet Mary Lou Diane STAFF TRAINER Work Phone: [facility] Start: 11-09-2024 End: 11-09-2024 Bamboo flowsheet Mary Lou Peterson Aplalan STAFF TRAINER Work Phone: [facility] Start: 11-09-2024 End: 11-09-2024 Office outpatient visit 25 minutes Mary Lou Peterson Jeronimoalan STAFF TRAINER Work Phone: [facility] Comment on above: Left knee pain, unsp ecified chronicity (Primary Dx); Arthritis of left knee Start: 11-09-2024 End: 11-09-2024 ambulatory MARY LOU Peterson APLING Not Available Start: 11-05-2024 End: 11-05-2024 Bamboo flowsheet Naomi Pack DIPPER OPERATOR [facility] Start: 11-05-2024 End: 11-05-2024 Bamboo flowsheet Naomi Daltony DIPPER OPERATOR [facility] Start: 11-05-2024 End: 11-05-2024 ambulatory Naomi Pack DIPPER OPERATOR [facility] Comment on above: Left knee pain, unsp ecified chronicity (Primary Dx) Start: 11-03-2024 End: 11-04-2024 ambulatory Franco Escobedo DIPPER OPERATOR [facility] Comment on above: Left knee pain, unsp ecified chronicity (Primary Dx) Start: 11-03-2024 End: 11-03-2024 Bamboo flowsheet Franco Minnie DIPPER OPERATOR [facility] Start: 11-03-2024 End: 11-03-2024 Bamboo flowsheet Franco Minnie DIPPER OPERATOR [facility] Start: 10-29-2024 End: 10-29-2024 Bamboo flowsheet Yenny Rowe PT [facility] Start: 10-29-2024 End: 10-29-2024 Bamboo flowsheet Yenny Rowe PT [facility] Start: 10-29-2024 End: 10-29-2024 ambulatory Yenny Rowe PT [facility] Comment on above: Left knee pain, unsp ecified chronicity (Primary Dx) Start: 10-28-2024 ambulatory [facility] Start: 10-27-2024 End: 10-27-2024 ambulatory Franco Escobedo DIPPER OPERATOR [facility] Comment on above: Left knee pain, unsp ecified chronicity (Primary Dx) Start: 10-27-2024 End: 10-27-2024 Bamboo flowsheet Franco Escobedo DIPPER OPERATOR [facility] Start: 10-27-2024 End: 10-27-2024 Bamboo flowsheet Franco Escobedo DIPPER OPERATOR [facility] Start: 10-20-2024 End: 10-20-2024 ambulatory Yenny Rowe PT [facility] Comment on above: Left knee pain, unsp ecified chronicity (Primary Dx) Start: 10-20-2024 End: 10-20-2024 Bamboo flowsheet Yenny Rowe PT [facility] Start: 10-20-2024 End: 10-20-2024 Bamboo flowsheet Yenny Rowe PT [facility] Start: 10-14-2024 ambulatory [facility] Start: 10-12-2024 End: 10-12-2024 ambulatory Natali IRAHETA Facility:[facility] Start: 10-12-2024 End: 10-12-2024 Patient encounter procedure Natali IRAHETA [facility] Start: 10-07-2024 End: 10-07-2024 ambulatory CECILIA ANDERSON [facility] Start: 10-07-2024 End: 10-07-2024 Office outpatient visit 25 minutes Cecilia Anderson PA-C Work Phone: [facility] Comment on above: Left knee pain, unsp ecified chronicity (Primary Dx) Start: 10-07-2024 End: 10-07-2024 ambulatory CECILIA Pierre ANDERSON [facility] Start: 09-07-2024 ambulatory [facility] Start: 08-27-2024 ambulatory [facility] Start: 08-25-2024 ambulatory [facility] Start: 08-13-2024 End: 08-13-2024 Bamshahana Carpenter MD Work Phone: [facility] Start: 08-13-2024 End: 08-13[facility] Work Phone: [facility] Start: 08-13-2024 End: 08-13-2024 Office outpatient visit 15 minutes Sakina Carpenter MD Work Phone: [facility] Comment on above: Seborrheic keratosis (Primary Dx); Lentigines; Melanocytic nevus of trunk; Angioma of skin; Actinic keratosis; History of basal cell carcinoma; Neoplasm of unspecified behavior of bone, soft tissue, and skin Start: 08-13-2024 End: 08-13-2024 ambulatory SAKINA CARPENTER Not Available Start: 07-24-2024 ambulatory [facility] Start: 03-17-2024 Patient encounter procedure Sakina Carpenter MD Work Phone: [facility] Start: 06-24-2023 End: 06-24-2023 Patient encounter procedure Natali IRAHETA [facility] Start: 04-09-2023 End: 04-09-2023 ambulatory MATTHIAS SAHA . Facility: Start: 03-18-2023 End: 03-18-2023 ambulatory Sakina Carpenter Facility:[facility] Start: 03-18-2023 End: 03-18-2023 ambulatory MD Sakina Carpenter Work Phone: [facility] Work Phone: Start: 03-18-2023 End: 03-18-2023 Departed Referred MD Sakina Carpenter Work Phone: [facility] [place] Work Phone: Start: 03-12-2023 End: 03-13-[address] NORTH CHAPIN Facility:[facility] Start: 03-06-2023 End: 03-07-[address] NORTH CHAPIN Facility:[facility] Start: 12-20-2022 End: 12-21-[address] RAZ MATOS Facility:[facility] Start: 12-18-2022 End: 12-19-2022 ambulatory MODESTO ROCHE Facility:[facility] Start: 12-06-2022 End: 12-06-[address] NORHT CHAPIN Facility:[facility] Start: 11-06-2022 End: 11-07-2022 ambulatory MODESTO ROCHE Facility:[facility] Start: 10-16-2022 End: 10-17-2022 ambulatory MODESTOARTURO ROCHE Facility:[facility] Start: 09-27-2022 End: 09-27-2022 ambulatory BARBIE CANSECO Facility:[facility] Start: 09-26-2022 Encounter for preprocedural cardiovascular examination BARBIE CANSECO [facility] Start: 09-26-2022 Encounter for preprocedural laboratory examination [facility] Kyler CANSECO [facility] Start: 09-24-2022 ambulatory BARBIE CANSECO Faci [...] encounter procedure Natali IRAHETA [facility] Start: 04-27-2022 End: 04-28-[address] NATALI IRAHETA . Facility: Start: 04-20-2022 End: 04-20-2022 ambulatory Miguel Astorga Facility:[facility] Start: 04-20-2022 End: 04-20-2022 Admission to same day surgery center DO Miguel Astorga Work Phone: [facility] [place] Start: 04-19-2022 End: 04-19-2022 ambulatory [place] Chapin Facility:[facility] Start: 04-19-2022 End: 04-19-2022 Patient encounter procedure DO Miguel Astorga Work Phone: [facility] Procedures Date Procedure Procedure Detail Performing Clinician Start: 07-02-2025 Us scrotum & contents M ezequiel Chapin MD Work Phone: Start: 05-12-2025 End: 05-12-2025 DESTRUCTION OF LESION Sakina Carpenter MD Work Phone: Start: 04-30-2025 SKIN EXCISION Sakina barragan MD Work Phone: Start: 04-03-2025 MLR HEMOGLOBIN A1C [place] Chapin MD Work Phone: Start: 03-24-2025 End: 03-24-2025 SKIN / NAIL BIOPSY Sakina Carpenter MD Work Phone: Start: 03-24-2025 CRYOTHERAPY SKIN LESION Sakina Carpenter MD Work Phone: Start: 03-01-2025 Arthroscopy of knee Cleo IRAHETA Start: 11-09-2024 Arthrocentesis aspir &/inj major jt/bursa w/o us Mary Lou Diane NP Work Phone: Start: 11-09-2024 Radiologic exam both knees standing anteropost Mary Lou Diane NP Work Phone: Start: 08-13-2024 SKIN / NAIL BIOPSY Get Carpenter MD Work Phone: Start: 08-13-2024 CRYOTHERAPY SKIN LESION Sakina Carpenter MD Work Phone: Start: 04-09-2023 Colonoscopy Sakina watson MD Work Phone: Start: 04-27-2022 PSA screening MODESTO KALEY Comment on above: Performed By: #### P SAD ####[facility] [id number] [place] [address]DrYonatan Kasper Start: 04-20-2022 OR Cheek Lesion Exc W/Flap Recon (Not Applicable) DO Miguel Astorga Work Phone: Colonoscopy Natalitasha IRAHETA ft (qualifier value) Natalitasha IRAHETA Prosthetic arthropla sty of the hip Natali IRAHETA Removal of Basal Agustina l on Nose Natali IRAHETA Repair of inguinal hernia Pa cielo IRAHETA Titanium Plate Left Arm Cleor ugo IRAHETA Tonsillectomy and adenoidectomy Natalitasha IRAHETA Plan of Treatment Date Care Activity Detail Author Start: 04-09-2033 Screening for malignant neoplasm of colon [facility] Start: 12-06-2032 DTaP,Tdap and Td Vaccines (2 - Tdap) DTaP,Tdap and Td Vaccines (2 - Tdap) [facility] Start: 07-14-2026 Adult BMI Screening Adult BMI Screening [facility] Start: 07-14-2026 Tobacco Screening Tobacco Screening [facility] Start: 03-29-2026 Medicare Annual Wellness (AWV) Medicare Annual Wellness (AWV) [facility] Start: 10-07-2025 Adult BMI Screening Adult BMI Screening [facility] Start: 10-07-2025 Tobacco Screening Tobacco Screening [facility] Start: 09-29-2025 End: 09-29-2025 Patient encounter procedure 09/29/2025 1:45 PM EST Office Visit [facility] [address] [place] [address] North Chapin MD [address] [place] [address] [facility] Start: 09-28-2025 End: 09-28-2025 Patient encounter procedure [facility] Start: 07-26-2025 Influenza vaccination [facility] Start: 06-30-2025 End: 06-30-2026 US Scrotum and testicle US scrotum Imaging Routine Inguinal pain, right H/O epididymitis Expected: 06/30/2025, Expires: 06/30/2026 [facility] Work Phone: Comment on above: Expected: 06/30/2025, Expires: Start: 05-12-2025 End: 05-12-2025 Patient encounter procedure 05/12/2025 1:20 PM EDT Procedure Visit [facility] [address] [place] [address] Sakina Carpenter MD [address] [place] [address] [facility] Start: 04-30-2025 End: 04-30-2025 Patient encounter procedure 04/30/2025 10:20 AM EDT Office Visit [facility] [address] [place] [address] Sakina Carpenter MD [address] [place] [address] Arrived [facility] Comment on above: Arrived Start: 04-28-2025 End: 04-28-2025 Patient encounter procedure 04/28/2025 4:00 PM EDT Office Visit [facility] [address] [place] [address] Sakina Carpenter MD [address] [place] [address] [facility] Start: 04-12-2025 End: 04-12-2025 Patient encounter procedure [facility] Comment on above: Arrived Start: 03-29-2025 End: 03-29-2026 Basic metabolic 1998 panel - Serum or Plasma Basic metabolic panel Lab Routine Encounter for long-term (current) use of medications Expected: 03/29/2025 (Approximate), Expires: 03/29/2026 [facility] Comment on above: Expected: 03/29/2025 (Approximate), Expi res: 03/29/2026 Start: 03-29-2025 End: 03-29-2026 Hemoglobin A1c/Hemoglobin.total in Blood Hemoglobin A1c Lab Routine Prediabetes Expected: 03/29/2025 (Approximate), Expires: 03/29/2026 [facility] Work Phone: Comment on above: Expected: 03/29/2025 (Approximate), Expi res: 03/29/2026 Start: 03-29-2025 End: 03-29-2026 Lipid 1996 panel - Serum or Plasma Lipid panel Lab Routine Dyslipidemia ([facility]) Expected: 03/29/2025 (Approximate), Expires: 03/29/2026 [facility] Comment on above: Expected: 03/29/2025 (Approximate), Expi res: 03/29/2026 Start: 03-29-2025 End: 03-29-2025 Patient encounter procedure [facility] Comment on above: Arrived Start: 03-24-2025 End: 03-24-2025 Patient encounter procedure 03/24/2025 1:00 PM EDT Office Visit [facility] [address] [place] [address] Sakina Carpenter MD [address] [place] [address] Arrived [facility] Comment on above: Arrived Start: 03-23-2025 End: 03-23-2025 Patient encounter procedure [facility] Start: 03-22-2025 End: 03-22-2025 Patient encounter procedure 03/22/2025 11:30 AM EDT Office Visit [facility] [address] [place] [address] North Chapin MD [address] [place] [address] [facility] Start: 03-17-2025 Medicare Annual Wellness (AWV) Medicare Annual Wellness (AWV) [facility] Start: 2025 End: 2025 Patient encounter procedure [facility] Comment on above: Arrived Start: 02-22-2025 End: 02-22-2025 Patient encounter procedure 02/22/2025 1:35 PM EDT Office Visit [facility] [address] [place] [phone] Sakina Carpenter MD [address] [place] [address] [facility] Start: 02-11-2025 End: 02-11-2025 Patient encounter procedure 02/11/2025 1:05 PM EDT Office Visit [facility] [address] [place] [address] Sakina Carpenter MD [address] [place], [place] [id number] [facility] Start: 02-02-2025 End: 02-02-2025 Patient encounter procedure 02/02/2025 3:00 PM EDT Office Visit [facility] [address] [place] [id number] Bud Cummins, MORIS [address] [facility] [address] [place] [address] [facility] Start: 12-25-2024 End: 12-25-2024 Patient encounter procedure [facility] Comment on above: Arrived Start: 12-09-2024 End: 12-09-2024 Patient encounter procedure 12/09/2024 1:30 PM EST Office Visit [facility] [address] [place] [id number] Cecilia Anderson PA-C [address] [place] [address] [facility] Start: 11-30-2024 [...] Treatment [facility] [address] [facility] [address] [place] [address] Yenny Rowe, PT [facility] Start: 11-12-2024 End: 11-12-2024 ambulatory 11/12/2024 5:00 PM EST Treatment [facility] [address] [place] [address] Naomi Pack, DIPPER OPERATOR [facility] Start: 11-09-2024 End: 11-09-2024 ambulatory 11/09/2024 4:00 PM EST Treatment [facility] [address] [place] [address] Yenny Rowe, PT [facility] Start: [...] DERM [address] [place] [address] Sakina Carpenter MD [address] [place] [address] Arrived [facility] Comment on above: Arrived Start: 07-26-2024 COVID-19 Vaccine ( season) COVID-19 Vaccine ( season) [facility] Start: 07-26-2024 COVID-19 Vaccine ( season) COVID-19 Vaccine ( season) [facility] Start: 07-26-2024 Influenza vaccination Influenza Vaccine (#1) [facility] Start: 03-18-2023 Superficial Wound Culture Superficial Wound Culture [facility] Start: 2017 Fall Risk Screening Fall Risk Screening [facility] Start: 1970 Adult BMI Follow Up Plan Adult BMI Follow Up Plan [facility] Start: 1964 Depression Screening Depression Screening [facility] Start: 1952 Medicare Annual Wellness (AWV) Medicare Annual Wellness (AWV) [facility] Start: 1952 Screening for malignant neoplasm of colon [facility] Dermatopathology exam Dermatopat hology exam Pathology and Cytology Timed Neoplasm of unspecified behavior of bone, soft tissue, and skin Release Upon Ordering for 1 Occurrences starting 08/13/2024 [employer] Work Phone: Comment on above: Release Upon Ordering for 1 Occurrences starting 08/13/2024 Dermatopathology exam Dermatopat hology exam Pathology and Cytology Timed Neoplasm of unspecified behavior of bone, soft tissue, and skin Release Upon Ordering for 1 Occurrences starting 03/24/2025 [employer] Work Phone: Comment on above: Release Upon Ordering for 1 Occurrences starting 03/24/2025 Dermatopathology exam Dermatopat hology exam Pathology and Cytology Timed Basal cell carcinoma of skin of left lower limb, including hip Release Upon Ordering for 1 Occurrences starting 04/30/2025 [employer] Work Phone: Comment on above: Release Upon Ordering for 1 Occurrences starting 04/30/2025 SARS-CoV-2 (COVID-19 ) N gene [Presence] in Respiratory specimen by DAISY with probe detection [facility] Work Phone: End: 10-07-2025 XR Knee - left 3 Views X-ray knee left 3 views Imaging Routine Left knee pain, unspecified chronicity 1 Occurrences starting 10/07/2024 until 10/07/2025 [employer] Work Phone: Comment on above: 1 Occurrences starting 10/07/2024 until 10/07/2025 XR Knee - left 3 Views X-ray kne e left 3 views Imaging Routine Left knee pain, unspecified chronicity 10/07/2024 2:40 PM EST [employer] [facility] Immunizations Immunization Date Immunization Notes Care Provider Fa elias 08-09-2024 influenza virus vacc ine, unspecified formulation Natali IRAHETA [facility] 08-22-2023 influenza virus vacc ine, unspecified formulation Sakina Carpenter MD Work Phone: [facility] 09-02-2022 influenza virus vacc ine, unspecified formulation Natali IRAHETA [facility] 10-05-2021 SARS-CoV-2 (COVID-19 ) mRNA BNT-162b2 vax Natali IRAHETA [facility] 08-14-2021 influenza virus vacc ine, unspecified formulation Natali IRAHETA [facility] 08-14-2021 pneumococcal polysaccharide vaccine, 23 valent Natali IRAHETA [facility] 03-22-2021 SARS-CoV-2 (COVID-19 ) mRNA BNT-162b2 vax Natali IRAHETA [facility] Comment on above: Result Comment: erro r 03-22-2021 SARS-CoV-2 (COVID-19 ) mRNA-1273 vaccine Natali IRAHETA [facility] 03-01-2021 SARS-CoV-2 (COVID-19 ) mRNA BNT-162b2 vax Natali IRAHETA [facility] 02-23-2021 SARS-CoV-2 (COVID-19 ) mRNA BNT-162b2 vax Natali IRAHETA [facility] Comment on above: Result Comment: erro r 08-05-2020 influenza virus vacc ine, unspecified formulation Natali IRAHETA [facility] 08-05-2020 pneumococcal conjuga te vaccine, 13 valent Natali IRAHETA [facility] 08-31-2019 influenza virus vacc ine, unspecified formulation Natali IRAHETA [facility] 07-08-2018 influenza virus vacc ine, unspecified formulation Natali IRAHETA [facility] 07-08-2018 zoster vaccine recombinant Natali IRAHETA [facility] 03-25-2018 zoster vaccine recombinant Natalitasha IRAHETA [facility] 08-08-2017 influenza virus vacc ine, unspecified formulation Natali IRAHETA [facility] 07-26-2017 influenza virus vacc ine, unspecified formulation Natali IRAHETA [facility] 07-19-2016 influenza virus vacc ine, unspecified formulation Natali IRAHETA [facility] 09-03-2015 influenza virus vacc ine, unspecified formulation Natali IRAHETA [facility] Payers Date Payer Category Payer Medicaid [employer]NA MEDICARE A DVANTAGE [id number] 2022 Medicare AETNA MEDICARE A DVANTAGE AETNA MEDICARE REPLACEMENT [id number] 2022-Present [address] [place] [address] [id number] 2022 Self-pay [id number] 2021 Medicare HMO [employer] MEDICARE ember [id number] 2019 Private Health Insurance [id number] 2017 Private Health Insurance [id number] 2015 Unknown [id number] Private Health Insurance [id number] 1952 Unknown [id number] 2.840.1.650057.3.579.2. 593 1952 Unknown [id number] 2.16.840.1.477526.3.579.2. 593 1952 Unknown [id number] 2.16.840.1.658149.3.579.2. 593 1952 Unknown [id number] 2.16.840.1.181313.3.579.2. 593 1952 Unknown [id number] 2.16.840.1.969628.3.579.2. 593 1952 Unknown [id number] 2.16.840.1.936131.3.579.2. 593 1952 Unknown [id number] 2.16.840.1.154820.3.579.2. 593 1952 Unknown [id number] 2.16.840.1.775623.3.579.2. 593 1952 Unknown [id number] 2.16.840.1.600966.3.579.2. 593 1952 Unknown [id number] 2.16.840.1.493976.3.579.2. 593 1952 Unknown [id number] 2.16.840.1.868558.3.579.2. 593 1952 Unknown [id number] 2.16.840.1.803218.3.579.2. 593 1952 Unknown [id number] 2.16.840.1.186241.3.579.2. 593 1952 Unknown [id number] 2.16.840.1.992186.3.579.2. 593 1952 Unknown [id number] 2.16.840.1.357259.3.579.2. 593 1952 Unknown [id number] 2.16.840.1.770596.3.579.2. 1286 1952 Unknown [id number] 2.16.840.1.981078.3.579.2. 1286 1952 Unknown [id number] 2.16.840.1.745574.3.579.2. 718 1952 Unknown [id number] 2.16.840.1.309216.3.579.2. 718 1952 Unknown [id number] 2.16.840.1.914348.3.579.2. 727 1952 Unknown [id number] 2.16.840.1.987361.3.579.2. 727 1952 Unknown [id number] 2.16.840.1.073515.3.579.2. 727 1952 Unknown [id number] 2.16.840.1.710700.3.579.2. 1258 1952 Unknown [id number] 2.16.840.1.407258.3.579.2. 1258 1952 Unknown [id number] 2.16.840.1.945666.3.579.2. 1258 1952 Unknown [id number] 2.16.840.1.017891.3.579.2. 1258 1952 Unknown [id number] 2.16.840.1.409234.3.579.2. 1258 1952 Unknown [id number] 2.16.840.1.553492.3.579.2. 1258 1952 Unknown [id number] 2.16.840.1.562520.3.579.2. 1258 1952 Unknown [id number] 2.16.840.1.665104.3.579.2. 1258 1952 Unknown [id number] 2.16.840.1.870081.3.579.2. 1258 1952 Unknown [id number] 2.16.840.1.571371.3.579.2. 1258 1952 Unknown [id number] 2.16.840.1.969775.3.579.2. 1258 1952 Unknown [id number] 2.16.840.1.191878.3.579.2. 1258 1952 Unknown [id number] 2.16.840.1.558453.3.579.2. 1258 1952 Unknown [id number] 2.16.840.1.728116.3.579.2. 1258 1952 Unknown [id number] 2.16.840.1.829475.3.579.2. 1259 1952 Unknown [id number] 2.16.840.1.133183.3.579.2. 1259 1952 Unknown [id number] 2.16.840.1.844304.3.579.2. 1259 1952 Unknown [id number] 2.16.840.1.947168.3.579.2. 1259 1952 Unknown [id number] 2.16.840.1.670613.3.579.2. 1286 1952 Unknown [id number] 2.16.840.1.644369.3.579.2. 1286 Unknown [id number] Unknown [id number] 2.16.840.1.667089.3.579.2. 531 Unknown [id number] 2.16.840.1.324649.3.579.2. 531 Unknown [id number] 2.16.840.1.733312.3.579.2. 531 Social History Date Type Detail Facility Start: 05-07-2022 End: 01-29-2023 Tobacco smoking status Never smoked tobacco (finding) [facility] Work Phone: Start: 01-05-2021 End: 02-03-2024 Sex Assigned At Male [facility] Start: 1950 Sex Assigned At Male [facility] Tobacco smoking status Never [facility] Start: 01-29-2023 End: 08-12-2023 Tobacco use and exposure Smokeless tobacco non-user [facility] Start: 08-13-2024 End: 06-30-2025 Alcoholic beverage intake [facility] (finding) [facility] Start: 01-05-2021 End: 02-03-2024 History of Social function [facility] Do you belong to any clubs or organizations such as rastafarian groups, unions, fraternal or athletic groups, or [...] Not on file [facility] Start: 10-07-2024 End: 07-14-2025 Alcoholic beverage intake Current drinker of alcohol (finding) [facility] Start: 06-30-2015 End: 06-05-2019 Sex Male (finding) [facility] Start: 10-11-2020 Gender identity Identifies as male gender (finding) [facility] Start: 10-11-2020 Sexual orientation Heterosexual (finding) [facility] Sexual Orientation [facility] Medical Equipment Procedure Code Equipment Code Equipment Origin al Text Equipment Identifier Dates Mesh Brd Perfix Plug Med Rpl 82552 Rpl [id number] - [id number] - [id number] Start: 09-23-2018 Mesh Brd Preshap e Hawkins 3x5 Rpl [id number] - [id number] Start: 09-23-2018 Comment on above: Description: 13.7 cm x 5.9 cm cut to fit defect Linr Actb 36mm F Ntrl E1 Clr - [id number] Start: 07-10-2017 Hd Fem 36mm Opt G7 Blx D Hip Rpl 650-1057 - [id number] Start: 07-10-2017 Slv Fem Opt +3mm Tpr Hip Blx D Rpl 650-1067 - [id number] Start: 07-10-2017 Stm Fem 125mm 13 3d 20 Hi Os - [id number] Start: 07-10-2017 Shell [id number] Start: 07-10-2017 Goals Date Patient Goal Desired Activity /State Personal health goal Comment on above: Formatting of this n ote might be different from the original. Evaluation of progress towards goal: Maximize work with PT at discharge to strengthen R hip Functional Status Date Assessment Result Facility 04-05-2025 Functional Status N/A [facility] 03-29-2025 Patient Health Quest ionnaire 2 item (PHQ-2) [Reported] [facility] 10-12-2024 Functional Status N/A [facility] 06-24-2023 Functional Status N/A [facility] 05-07-2022 Functional Status N/A [facility] Clinical Notes 05-07-2022 to 07-14-2025 Kavya Germain DO - 07/14/2025 10:15 AM Sharon Chapin MD - 06/30/2025 8:37 AM Sharon Chapin MD - 06/30/2025 7:45 AM Jameson Carpenter MD - 05/12/2025 1:20 PM EDT Note Date & Type Note Facility 07-14-2025 History of Present illness Narrative Images from the original note were not included. [facility] [address] [facility] [facility] [id number] CONSULT NOTE CHIEF COMPLAINT Chief Complaint Patient presents with Hernia RECURRENT RIGHT SIDE INGUINAL HERNIA, REFERRED BY DR TAVARES Altman Tigist is a 75 y.o. male who presents with pain in his right testicle. He has been treated on several occasions over the last several years greater than 2-3 years for chronic epididymitis by Dr. Iraheta. His urologist Dr. Iraheta wants to remove his right testicle due to the recurrent symptoms. The pain comes and goes. He had a previous right inguinal hernia repair with mesh performed by me in 2018 and has had no problems since that time. Denies any bulges in the right groin. He did not have not an ultrasound performed at [facility] on 07/02/2025 which demonstrated no evidence of testicular mass torsion orchitis or epididymitis. There were bilateral varicoceles and small bilateral hydroceles. 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 He also plays pickleball 3 times a week in [place]. He wears an athletic supporter which helps with his discomfort. He does not wear it all the time. He wanted another opinion. MEDICATION Current Outpatient Medications: acetaminophen (TYLENOL ARTHRITIS) 650 mg 8 hr tablet, Take 1 tablet (650 mg total) by mouth every 8 (eight) hours as needed for pain., Disp: , Rfl: DAILY MULTI-VITAMIN ORAL, Take 1 tablet by mouth in the morning., Disp: , Rfl: DILT-XR 180 mg 24 hr capsule, Take 1 capsule (180 mg total) by mouth in the morning., Disp: , Rfl: doxepin (SINEquan) 50 mg capsule, Take 1 capsule (50 mg total) by mouth nightly., Disp: , Rfl: famotidine (PEPCID) 20 mg tablet, Take 1 tablet (20 mg total) by mouth in the morning and 1 tablet (20 mg total) before bedtime., Disp: , Rfl: ferrous sulfate 325 (65 FE) MG tablet, Take 1 tablet (325 mg total) by mouth in the morning., Disp: , Rfl: finasteride (PROSCAR) 5 mg tablet, , Disp: , Rfl: glucosamine-chondroitin 500-400 mg tablet, Take 1 tablet by mouth in the morning and 1 tablet before bedtime., Disp: , Rfl: lisinopriL (PRINIVIL,ZESTRIL) 10 mg tablet, Take 1 tablet (10 mg total) by mouth in the morning., Disp: , Rfl: rivaroxaban (XARELTO) 20 mg tablet tablet, Take 1 tablet (20 mg total) by mouth in the morning., Disp: , Rfl: rOPINIRole (REQUIP) 2 mg tablet, Take 1 tablet (2 mg total) by mouth nightly., Disp: , Rfl: tamsulosin (FLOMAX) 0.4 mg capsule,extended release 24hr, Take 1 capsule (0.4 mg total) by mouth nightly., Disp: , Rfl: ALLERGY No Known Allergies MEDICAL HISTORY Past Medical History: Diagnosis Date Afib (CMS-HCC) Back pain lumbar BPH (benign prostatic hyperplasia) Cancer (CMS-HCC) multiple basal cell Chronic pain disorder Hip pain, chronic, left Inguinal hernia right Joint pain Low back pain Osteoarthritis Restless leg syndrome Sleep apnea instructed to bring CPAP to hospital Umbilical hernia Varicella 8 years old Visual impairment glasses SURGICAL HISTORY Past Surgical History: Procedure Laterality Date ADENOIDECTOMY COLONOSCOPY DENTAL SURGERY FOOT SURGERY 10/2021 right foot, 09/2022 left foot FRACTURE SURGERY 2012 broken lft wrist GANGLION CYST EXCISION from neck INGUINAL HERNIA REPAIR INJECTION BURSA LARGE JOINT: left hip Left 02/08/2023 Performed by Umair Decker MD at [facility] INJECTION BURSA LARGE JOINT: left ischial bursa Left 08/16/2023 Performed by Umair Decker MD at [facility] INJECTION LARGE JOINT BURSA Right 04/12/2017 Performed by Umair Decker MD at [facility] INJECTION MEDIAL BRANCH NERVE BLOCK: right [id number] Right 08/12/2020 Performed by Umair Decker MD at [facility] INSERTION LOOP RECORDER 01/24/2023 Dr Amin at [facility] JOINT REPLACEMENT right hip ORTHOPEDIC SURGERY Left 2012 wrist fixation RADIO FREQUENCY ABLATION: right [id number] Right 09/23/2020 Performed by Umair Decker MD at [facility] REPAIR HERNIA INGUINAL WITH MESH Right 09/23/2018 Performed by Kavya Germain DO at [facility] REPAIR HERNIA UMBILICAL WITH MESH N/A 09/23/2018 Performed by Kavya Germain DO at [facility] REPLACEMENT TOTAL JOINT ANTERIOR SUPINE INTERMUSCULAR HIP Right 07/10/2017 Performed by Schuyler Ambrocio MD at [facility] SKIN BIOPSY several, see owner spa director yearly TONSILLECTOMY UMBILICAL HERNIA REPAIR 2017 brought it to the attention of PCP VASECTOMY 30 years ago WRIST SURGERY SOCIAL HISTORY Social History Socioeconomic History Marital status: Spouse name: Not on file Number of children: Not on file Years of education: Not on file Highest education level: Not on file Occupational History Not on file Tobacco Use Smoking status: Never Smokeless tobacco: Never Vaping Use Vaping status: Never Used Substance and Sexual Activity Alcohol use: Yes Comment: One drink per week Drug use: No Sexual activity: Defer Other Topics Concern Not on file Social History Narrative Not on file Social Drivers of Health Financial Resource Strain: Low Risk (02/03/2024) Received from [facility] Overall Financial Resource Strain (CARDIA) Difficulty of Paying Living Expenses: Not hard at all Food Insecurity: No Food Insecurity (10/07/2024) Hunger Screening Food Insecurity - Worry: Never True Food Insecurity - Inability: Never True Transportation Needs: No Transportation Needs (02/03/2024) Received from [facility] PRAPARE - Transportation Lack of Transportation (Medical): No Lack of Transportation (Non-Medical): No Physical Activity: Sufficiently Active (02/03/2024) Received from [facility] Exercise Vital Sign Days of Exercise per Week: 3 days Minutes of Exercise per Session: 60 min Stress: No Stress Concern Present (02/03/2024) Received from [facility] [place] of Occupational Health - Occupational Stress Questionnaire Feeling of Stress : Not at all Social Connections: Moderately Integrated (02/03/2024) Received from [facility] Social Connection and Isolation Panel [NHANES] Frequency of Communication with Friends and Family: Once a week Frequency of Social Gatherings with Friends and Family: Once a week Attends Rastafari Services: More than 4 times per year Active Member of Clubs or Organizations: Yes Attends Club or Organization Meetings: More than 4 times per year Marital Status: Interpersonal Safety: Unknown (01/16/2024) Received from [facility] Safety [facility] Environment Fear of Current or Ex-Partner: Not on file Emotionally Abused: Not on file Physically Abused: Not on file Sexually Abused: Not on file Physically or Sexually Abused: Not on file Housing Instability: Low Risk (02/03/2024) Received from [facility] Housing Stability Vital Sign Unable to Pay for Housing in the Last Year: No Number of Places Lived in the Last Year: 1 Unstable Housing in the Last Year: No FAMILY HISTORY Family History Problem Relation Age of Onset Cancer Mother Heart disease Mother Arthritis Mother Asthma Mother Breast cancer Mother Cancer Father Anesthesia problems Neg Hx REVIEW OF SYSTEMS: Constitutional: Denies fevers, denies recent illnesses. Rest review of 10 systems negative except as above. PHYSICAL EXAM Constitutional: He is oriented to person, place, and time. Vital signs are normal. He appears well-developed and well-nourished. Abdomen soft nontender with no groin hernias noted. Incision in the right groin clean dry and intact without evidence of recurrence. : Testicles descended bilaterally with the right 1 slightly larger than the left 1 and slight tenderness to the epididymis on the right side on palpation. Musculoskeletal: Normal range of motion. Lymphadenopathy: Right: No inguinal and no supraclavicular adenopathy present. Left: No inguinal and no supraclavicular adenopathy present. Neurological: He is alert and oriented to person, place, and time. Skin: Skin is warm, dry and intact. Psychiatric: He has a normal mood and affect. His speech is normal and behavior is normal. Cognition and memory are normal. IMPRESSION Chronic epididymitis ASSESSMENT & PLAN I discussed with the patient that orchiectomy was in order for chronic epididymitis especially over a 2-3 year which has not resolved with multiple treatment regimens. I did recommend trying to wear the athletic supporter 24 hours a day in the meantime. He wishes to wait until September for surgery due to his busy life. He has no evidence of a recurrent right inguinal hernia. Proceed with scheduled surgery for orchiectomy by Dr. Iraheta as recommended in September. He may follow up with me p.r.n.. Evaluation included: Preparing to see the patient (e.g., review of tests) Obtaining and/or reviewing separately obtained history Performing a medically appropriate examination and/or evaluation Counseling and educating the patient/family/caregiver Referring and communicating with other health healthcare corporate account director - Kavya Germain DO 07/14/25 10:35 AM This note was created with the assistance of a speech recognition program. While intending to generate a timely document that accurately reflects the content of the visit, no guarantee can be provided that every grammatical or spelling mistake has been or will be identified or corrected. Thank you for your understanding. documented in this encounter [facility] 06-30-2025 History of Present illness Narrative Associated Problem(s): Inguinal pain, right Pain for months and recurrent epididymitis. Concerned of hernia and check US. If normal but still discomfort recommend exam by general surgeon to assess for hernia. Images from the original note were not included. Subjective Patient ID: Oscar Escoto is a 75 y.o. male who presents for Follow-up (Possible hernia). C/o right inguinal pain for several months to years. History of recurrent epididymitis and several flares. Following with urology and discussed right orchectomy to help relieve pain. Continues to have pain in groin and worse with activity. Notice if active such as playing pickleball or if does a lot of lifting very sore and uncomfortable next day. History of right inguinal hernia repair in 2017 and concerned of recurrent hernia. No bulging in inguinal region but discomfort. Scheduled for orchectomy in September but wants to make sure not another cause of pain. Started wearing an athletic support during activity and seems to help with discomfort. Review of Systems Constitutional: Negative for fatigue. [...] tenderness. There is no guarding or rebound. Genitourinary: Comments: Mild tenderness in right inguinal canal, no mass or hernia palpable on exam. Musculoskeletal: Left lower leg: No edema. Neurological: Mental Status: He is alert. Assessment/Plan Problem List Items Addressed This Visit Inguinal pain, right - Primary Pain for months and recurrent epididymitis. Concerned of hernia and check US. If normal but still discomfort recommend exam by general surgeon to assess for hernia. Relevant Orders US scrotum H/O epididymitis Relevant Orders US scrotum documented in this encounter [facility] 05-12-2025 History of Present illness Narrative Images from the original note were not included. Subjective Oscar Escoto is a 75 y.o. male who presents for the following: Follow-up. Location: right forearm Date of biopsy: 03/24/2025 Diagnosis: Superficial basal cell carcinoma Location: left sanders Date of biopsy: 03/24/2025 Diagnosis: Nodular basal cell carcinoma All pertinent medical history, medications, and allergies were reviewed. General Exam: alert, oriented to person, place, and time, normal affect, well appearing Unaccompanied A focused exam completed based on patient reported problems, see below: Skin Exam 1. BASAL CELL CARCINOMA (BCC) OF RIGHT FOREARM Right Forearm Erythematous macule at biopsy site Destr of lesion Complexity: simple Destruction method: electrodesiccation and curettage Informed consent: discussed and consent obtained Informed consent comment: The risks of the procedure were discussed, including, but not limited to risks of scarring, darker or almond pan finisher pigmentary changes, recurrence, infection, and incomplete removal Timeout: patient name, date of , surgical site, and procedure verified Timeout comment: Patient and provider identified site. Site was marked. Photo was taken and shown to patient, patient verified this is the correct site. Procedure prep: Patient was prepped and draped in usual sterile fashion Prep type: Chlorhexidine Anesthesia: the lesion was anesthetized in a standard fashion Anesthetic: 1% lidocaine w/ epinephrine 1-100,000 buffered w/ 8.4% NaHCO3 Curettage performed in three different directions: Yes Electrodesiccation performed over the curetted area: Yes Curettage cycles: 3 Lesion length (cm): 2.3 Lesion width (cm): 2 Margin per side (cm): 0 Final wound size (cm): 2.3 Hemostasis achieved with: electrodesiccation Outcome: patient tolerated procedure well with no complications Post-procedure details: wound care instructions given Post-procedure details comment: Post-procedure instructions were given verbally and in writing. The office will be contacted if the lesion fails to resolve despite treatment, or if a side effect develops such as abnormal crusting, scabbing, reddness, discharge, or tenderness. Additional details: Amount of lidocaine used: 2.0 cc Previous accession number: [id number] Patient instructed to notify office of any signs of recurrence prior to next scheduled visit. 2. BASAL CELL CARCINOMA OF SKIN OF LEFT LOWER LIMB, INCLUDING HIP left sanders Erythematous macule at biopsied site. Destr of lesion Complexity: simple Destruction method: electrodesiccation and curettage Informed consent: discussed and consent obtained Informed consent comment: The risks of the procedure were discussed, including, but not limited to risks of scarring, darker or almond pan finisher pigmentary changes, recurrence, infection, and incomplete removal Timeout: patient name, date of , surgical site, and procedure verified Timeout comment: Patient and provider identified site. Site was marked. Photo was taken and shown to patient, patient verified this is the correct site. Procedure prep: Patient was prepped and draped in usual sterile fashion Prep type: Chlorhexidine Anesthesia: the lesion was anesthetized in a standard fashion Anesthetic: 1% lidocaine w/ epinephrine 1-100,000 buffered w/ 8.4% NaHCO3 Curettage performed in three different directions: Yes Electrodesiccation performed over the curetted area: Yes Curettage cycles: 3 Lesion length (cm): 1 Lesion width (cm): 1 Margin per side (cm): 0 Final wound size (cm): 1 Hemostasis achieved with: electrodesiccation Outcome: patient tolerated procedure well with no complications Post-procedure details: wound care instructions given Post-procedure details comment: Post-procedure instructions were given verbally and in writing. The office will be contacted if the lesion fails to resolve despite treatment, or if a side effect develops such as abnormal crusting, scabbing, reddness, discharge, or tenderness. Additional details: Amount of lidocaine used: 2.0 cc Previous accession number: [id number] Patient instructed to notify office of any signs of recurrence prior to next scheduled visit. Next Visit: as scheduled documented in this encounter [facility] 04-30-2025 History of Present illness Narrative Images from the original note were not included. Saucerization Excision Diagnosis: BCC Location: Left lower leg posterior Procedure performed: Shave biopsy Date of procedure: 03/24/25 All pertinent medical history, medications, and allergies were reviewed. General Exam: alert, oriented to person, place, and time, normal affect, well appearing Unaccompanied A focused exam completed based on patient reported problems, see below: Skin Exam 1. BASAL CELL CARCINOMA OF SKIN OF LEFT LOWER LIMB, INCLUDING HIP Left Lower Leg - Posterior Erythematous macule at biopsy site. Skin excision Lesion length (cm): 2 Lesion width (cm): 1.7 Margin per side (cm): 0.2 Total excision diameter (cm): 2.4 Informed consent: discussed and consent obtained Informed consent comment: Risks and possible complications were discussed as noted on the consent form. The consent form was signed prior to the procedure. Timeout: patient name, date of , surgical site, and procedure verified Timeout comment: Patient and provider identified site. Site was marked. Photo was taken and shown to patient, patient verified this is the correct site. Procedure prep: Patient was prepped and draped in usual sterile fashion Prep type: Chlorhexidine Anesthesia: the lesion was anesthetized in a standard fashion Anesthesia comment: The local anesthetic was injected to create a field block at the site of the procedure. Anesthetic: 1% lidocaine w/ epinephrine 1-100,000 buffered w/ 8.4% NaHCO3 Instrument used comment: Dermablade Hemostasis achieved with: aluminum chloride and electrodesiccation Outcome: patient tolerated procedure well with no complications Post-procedure details: sterile dressing applied Dressing type: bandage Additional details: Amount of lidocaine used: 4.0 ml Specimen A - Dermatopathology exam Diagnosis: BCC Check Margins: Yes Previous accession number: [id number] Next Visit: Has follow up scheduled documented in this encounter [facility] 04-21-2025 Note SUBJECTIVE Reason for Visit: Oscar Escoto is a 75 y.o. year old male patient being seen for 6-month follow-up visit. HPI: Oscar Escoto is a 75 y.o. year old male with significant medical history of atrial fibrillation that was diagnosed few years ago here he was admitted to [facility] with A. fib with rapid [...] PCP after initial diagnosis of A. fib. 04/21/2025 office visit: Patient seen evaluated in the office today, accompanied by his . He reports doing well overall. He denies chest pain, shortness of breath, palpitations, lightheadedness or dizziness, or lower extremity edema. Pulses are very regular on manual pulse palpation. His most recent remote device check revealed A-fib burden 2% per loop recorder, episodes noted March 17 and ranging from 1 to [address] will place him back on Xarelto. 11/10/2024 office visit (Dr. Amin): Pt is doing well and tolerating DOAC. [...] has done very well and no AF 07/30/23: Patient here for 6 month follow [...] LOOP monitor check reveals tachycardia as below. Past Medical History: Diagnosis Date Abnormal ECG Arrhythmia Atrial fibrillation (CMS/HCC) Right bundle branch block Sleep apnea Past Surgical History: Procedure Laterality Date HERNIA REPAIR 03/25/2019 PARTIAL HIP ARTHROPLASTY 07/10/2017 TONSILLECTOMY WRIST SURGERY Patient Active Problem List Diagnosis Paroxysmal atrial fibrillation (CMS/HCC) BPH (benign prostatic hyperplasia) 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 Family history of malignant neoplasm of kidney History of anticoagulant therapy Lumbosacral spondylosis without myelopathy Pain in testicle Restless leg syndrome Sleep apnea Varicocele Epididymitis Ischial bursitis of left side Primary osteoarthritis of left hip SVT (supraventricular tachycardia) Claustrophobia Dyslipidemia Gastroesophageal reflux disease without esophagitis Insomnia, unspecified Medicare annual wellness visit, subsequent Obesity (BMI 30-39.9) Postural dizziness with near syncope Prediabetes Spondylosis of lumbar region without myelopathy or radiculopathy Transient global amnesia Encounter for long-term (current) use of medications Arrhythmia History of colonic polyps Hypertension Pain due to internal orthopedic prosthetic devices, implants and grafts, initial encounter Pain in left foot Pseudarthrosis after fusion or arthrodesis family history includes Coronary artery disease in his mother; maligant neoplastic disease in his mother; malignant neoplastic disease in his father. Social History Tobacco Use Smoking status: Never Smokeless tobacco: Never Substance Use Topics Alcohol use: Yes Comment: occasional OBJECTIVE Visit Vitals Smoking Status Never Physical Exam Constitutional: General Appearance: well-developed, appears stated age. Level of Distress: no acute distress. Neck: Jugular Veins: normal jugular venous pressure. Lungs: Auscultation: no rales or rhonchi and normal breath sounds. Cardiovascular: Rate And Rhythm: regular Heart Sounds: normal S1 and s2; Systolic Murmur: not heard. Diastolic Murmur: not heard. Extremities: no edema Peripheral Pulses: Pulses: full and equal in all extremities except if noted. Abdomen: Inspection and Palpation: non distended or tender and soft. Musculoskeletal: Inspection: no join (more content not included)... [facility] 04-12-2025 History of Present illness Narrative Images from the original note were not included. HISTORY OF PRESENT ILLNESS: POST OP PT Oscar Escoto is an 75 y.o. @ male. EST PT S/P LT KNEE SCOPE (6WKS) 03/01/25 @ [facility] - DOING WELL- OCCASIONAL TWINGE OF PAIN MEDIAL KNEE- PT WAS ABLE TO PLAY PICKLE BALL THIS MORNING- DENIES INSTABILITY- DENIES SWELLING- GOOD ROM- NO PAIN MEDS REVIEW OF SYSTEMS: General: Denies fever, fatigue [...] 0 Flexion: 120 (tightness on terminal flexion) Tests Varus: negative Valgus: negative Other Erythema: absent Scars: present (Portal scars well healed) Sensation: normal Pulse: present Swelling: mild Effusion: no effusion present Comments: Operative lower extremity was noted [...] left knee Z98.890 PLAN: Assessment & Plan Patient is doing well with little pain and full ROM. He states he is back to normal activity with no issues. He will call if symptoms worsen but may do activity as tolerated. Questions answered in laymen terms at the bedside. The diagnosis, home exercise plan and any ongoing restrictions/ recommendations reviewed. If unable to be reached in office, I recommend evaluation at nearest Emergency Room if any symptoms worsened or new symptoms develop for requiring urgent evaluation. documented in this encounter [facility] 04-05-2025 Hospital Discharge instructions Patient Education 04/05/2025 13:16:02 Orchiectomy Orchiectomy An orchiectomy is the removal of one or both testicles. It is most often done to treat cancer of the testicles. Less commonly, it may be done in men with prostate cancer, or to prevent cancer in men whose testicles did not develop normally. An orchiectomy may also be needed when an injury to a testicle cannot be repaired. The testicles can be replaced with artificial testicles (prostheses). Tell a health care provider about: Any allergies you have. All medicines you are taking, including vitamins, herbs, eye drops, creams, and nmbb-ytu-fkxdzpb medicines. Any problems you or family members have had with anesthetic medicines. Any bleeding disorders you have. Any surgeries you have had. Any medical conditions you have. What are the risks? Generally, this is a safe procedure. However, problems may occur, including: Infection. Bleeding inside the sac that holds the testicles (scrotum). This is called a scrotal hematoma. Pain. Damage to nearby organs or structures, such as the nerves. Discharge from the surgical site. Allergic reactions to medicines. Inability to produce sperm (infertility), if both testicles are removed. Hot flashes, if both testicles are removed. What happens before the procedure? When to stop eating and drinking Follow instructions from your health care provider about what you may eat and drink before your procedure. These may include: ?8 hours before your procedure ?Stop eating most foods. Do not eat meat, fried foods, or fatty foods. ?Eat only light foods, such as toast or crackers. ?All liquids are okay except energy drinks and alcohol. ?6 hours before your procedure ?Stop eating. ?Drink only clear liquids, such as water, clear fruit juice, black coffee, plain tea, and sports drinks. ?Do not drink energy drinks or alcohol. ?2 hours before the procedure ?Stop drinking all liquids. ?You may be allowed to take medicines with small sips of water. Medicines Ask your health care provider about: Changing or stopping your regular medicines. This is especially important if you are taking diabetes medicines or blood thinners. Taking medicines such as aspirin and ibuprofen. These medicines can thin your blood. Do not take these medicines unless your health care provider tells you to take them. Taking woaf-tcr-lpbbxib medicines, vitamins, herbs, and supplements. General instructions You may need to collect your sperm in a sperm bank because this procedure can affect your ability to produce sperm (fertility). Ask your health care provider if this is necessary. Do not use any products that contain nicotine or tobacco for at least 4 weeks before the procedure. These products include cigarettes, chewing tobacco, and vaping devices, such as e-cigarettes. If you need help quitting, ask your health care provider. Plan to have someone take you home from the hospital or clinic. Surgery safety Ask your health care provider: ?How your surgery site will be marked. ?What steps will be taken to help prevent infection. These steps may include: ?Removing hair at the surgery site. ?Washing skin with a germ-killing soap. ?Taking antibiotic medicine. What happens during the procedure? An IV will be inserted into one of your veins. You will be given one or more of the following: ?A medicine to help you relax (sedative). ?A medicine to numb the area (local anesthetic). ?A medicine to make you fall asleep (general anesthetic). This procedure may involve removal of one or both testicles. The steps for the procedure will depend on the reason for the procedure. ?If your procedure is for treatment of testicular cancer: ?An incision will be made in the groin. ?The testicle and the spermatic cord will be removed through the groin incision. ?A prosthetic filled with saline may be inserted to fill the space in the scrotum where the testicle was removed. ?If your procedure is for treatment of prostate cancer: ?An incision will be made in the scrotum. ?The testicle will be removed through the incision in the scrotum. ?A prosthetic filled with saline may be inserted to fill the space in the scrotum where the testicle was removed. ?After the removal, the incision will be closed with stitches (sutures), skin glue, or adhesive strips. ?A sterile bandage (dressing) will be applied to the incision site. The procedure may vary among health care providers and hospitals. What happens after the procedure? Your blood pressure, heart rate, breathing rate, and blood oxygen level will be monitored until you leave the hospital or clinic. You will be allowed to go home once you are awake, stable, taking fluids well, and have no other problems. You may have scrotal support. If the scrotal support irritates your incision site, you may remove the support. You will have a sterile dressing. You will be instructed when to remove the dressing and when you can shower. If you were given a sedative during the procedure, it can affect you for several hours. Do not drive or operate machinery until your health care provider says that it is safe. Summary Orchiectomy is a surgical procedure to remove one or both testicles. It is most often done to treat cancer of the testicles. Tell your health care provider about any other medical conditions that you have and the medicines that you take to treat those conditions. Follow instructions from your health care provider about what to eat and drink before the procedure. One or both testicles will be removed. A prosthesis filled with saline may be inserted to fill the space in the scrotum where the testicle was removed. You will be monitored closely after the procedure. Plan to have someone take you home from the hospital or clinic. This information is not intended to replace advice given to you by your health care provider. Make sure you discuss any questions you have with your health care provider. Document Revised: 05/11/2022 Document Reviewed: 05/11/2022 [employer] Patient Education 2023 [employer]. Follow Up Care 10/12/2024 16:19:37 With:ESEQUIEL RUSSELL, Natali Gonzalez, URL Address: [facility] [address] , [place] [address]- [phone] When: Unknown Comments:sched orchiectomy in September [facility] [place] 04-05-2025 Note Patient Education Oncology Orchiectomy An orchiectomy is the removal of one or both testicles. It is most often done to treat cancer of the testicles. Less commonly, it may be done in men with prostate cancer, or to prevent cancer in men whose testicles did not develop normally. An orchiectomy may also be needed when an injury to a testicle cannot be repaired. The testicles can be replaced with artificial testicles (prostheses). Tell a health care provider about: ??? Any allergies you have. ??? All medicines you are taking, including vitamins, herbs, eye drops, creams, and lxbn-cjs-ssmctwm medicines. ??? Any problems you or family members have had with anesthetic medicines. ??? Any bleeding disorders you have. ??? Any surgeries you have had. ??? Any medical conditions you have. What are the risks? Generally, this is a safe procedure. However, problems may occur, including: ??? Infection. ??? Bleeding inside the sac that holds the testicles (scrotum). This is called a scrotal hematoma. ??? Pain. ??? Damage to nearby organs or structures, such as the nerves. ??? Discharge from the surgical site. ??? Allergic reactions to medicines. ??? Inability to produce sperm (infertility), if both testicles are removed. ??? Hot flashes, if both testicles are removed. What happens before the procedure? When to stop eating and drinking ??? Follow instructions from your health care provider about what you may eat and drink before your procedure. These may include: ? 8 hours before your procedure ? Stop eating most foods. Do not eat meat, fried foods, or fatty foods. ? Eat only light foods, such as toast or crackers. ? All liquids are okay except energy drinks and alcohol. ? 6 hours before your procedure ? Stop eating. ? Drink only clear liquids, such as water, clear fruit juice, black coffee, plain tea, and sports drinks. ? Do not drink energy drinks or alcohol. ? 2 hours before the procedure ? Stop drinking all liquids. ? You may be allowed to take medicines with small sips of water. Medicines Ask your health care provider about: ??? Changing or stopping your regular medicines. This is especially important if you are taking diabetes medicines or blood thinners. ??? Taking medicines such as aspirin and ibuprofen. These medicines can thin your blood. Do not take these medicines unless your health care provider tells you to take them. ??? Taking izsn-tyy-knggajf medicines, vitamins, herbs, and supplements. General instructions ??? You may need to collect your sperm in a sperm bank because this procedure can affect your ability to produce sperm (fertility). Ask your health care provider if this is necessary. ??? Do not use any products that contain nicotine or tobacco for at least 4 weeks before the procedure. These products include cigarettes, chewing tobacco, and vaping devices, such as e-cigarettes. If you need help quitting, ask your health care provider. ??? Plan to have someone take you home from the hospital or clinic. Surgery safety ??? Ask your health care provider: ? How your surgery site will be marked. ? What steps will be taken to help prevent infection. These steps may include: ? Removing hair at the surgery site. ? Washing skin with a germ-killing soap. ? Taking antibiotic medicine. What happens during the procedure? An IV will be inserted into one of your veins. ??? You will be given one or more of the following: ? A medicine to help you relax (sedative). ? A medicine to numb the area (local anesthetic). ? A medicine to make you fall asleep (general anesthetic). ??? This procedure may involve removal of one or both testicles. The steps for the procedure will depend on the reason for the procedure. ? If your procedure is for treatment of testicular cancer: ? An incision will be made in the groin. ? The testicle and the spermatic cord will be removed through the groin incision. ? A prosthetic filled with saline may be inserted to fill the space in the scrotum where the testicle was removed. ? If your procedure is for treatment of prostate cancer: ? An incision will be made in the scrotum. ? The testicle will be removed through the incision in the scrotum. ? A prosthetic filled with saline may be inserted to fill the space in the scrotum where the testicle was removed. ? After the removal, the incision will be closed with stitches (sutures), skin glue, or adhesive strips. ? A sterile bandage (dressing) will be applied to the incision site. The procedure may vary among health care providers and hospitals. What happens after the procedure? Your blood pressure, heart rate, breathing rate, and blood oxygen level will be monitored until you leave the hospital or clinic. ??? You will be allowed to go home once you are awake, stable, taking fluids well, and have no other problems. ??? You may have (more content not included)... [facility] 03-29-2025 History of Present illness Narrative Associated [...] wasn't as active. Plans on returning to [facility] several days a week. Resumed walking dog [...] Problem List Items Addressed This Visit Dyslipidemia (CMS/HCC) Relevant Orders Lipid panel Prediabetes Relevant Orders [...] disorder, unspecified type documented in this encounter [facility] 03-24-2025 History of Present illness Narrative Images [...] ACTINIC KERATOSIS (9) Left Buccal Cheek, Left Jehovah'S Witness, Right Buccal Cheek, Right Dorsal Hand (2), [...] limited to risks of scarring, darker or almond pan finisher pigmentary changes, recurrence, incomplete removal and infection. [...] skin lesion - Left Buccal Cheek, Left Jehovah'S Witness, Right Buccal Cheek, Right Dorsal Hand (2), [...] lesion: 2.0 x 1.7 cm Right Forearm [place] scaly plaque Lesion biopsy Type of biopsy: [...] lesion: 2.3 x 2.0 cm Left sanders [place] papule Lesion biopsy Type of biopsy: tangential [...] 6 months-skin check documented in this encounter [facility] 2025 History of Present illness Narrative Images from the original note were not included. HISTORY OF PRESENT ILLNESS: POST OP PT Oscar Escoto is an 75 y.o. @ male. EST PT 1ST P/O LT KNEE SCOPE (2WKS) 03/01/25 @ [facility] - DOING WELL- NOTES SOME OCCASIONAL DISCOMFORT [...] develop for requiring urgent evaluation. Nneka Hernandez CLAY PUDDLER-COAL GASIFICATION TECHNICIAN documented in this encounter [facility] 03-08-2025 Note [id number] [facility] 03-01-2025 Note [facility] SURGERY Clinical Discharge Summary PERSON INFORMATION Name OSCAR ESCOTO Age 74 Years 1950 Sex MALE Language Upper Sorbian PCP [facility] Marital Status Phone Med Service Ambulatory Surgery N [id number] Acct# Arrival 03/01/2025 08:45:44 Visit Reason SURGERY - LEFT KNEE ARTHROSOCPY - LATERAL MENISCUS TEAR Acuity LOS 066 02:01 Address: [address] [place] [address] Comment: PROVIDER INFORMATION VITALS INFORMATION Vital Sign [...] every day. Comme (more content not included)... [facility] 02-26-2025 Telephone encounter Note Post op pain rx. PDMP reviewed [facility] 02-26-2025 Miscellaneous Notes Post op pain rx. PDMP reviewed documented in this encounter [facility] 02-02-2025 History of Present illness Narrative Images from the original note were not included. GENERAL HISTORY AND PHYSICAL: NAME: Oscar Escoto : 1950 HISTORY OF PRESENT ILLNESS: Oscar Escoto is an 74 y.o. @ male. Here for surgery instructions H&P LT KNEE SCOPE 03/01/25 @ [facility] PAST MEDICAL HISTORY: Past Medical History: Diagnosis [...] SPUR EXCISION Right HERNIA REPAIR 2017 Dr. Germain MOUTH SURGERY front tooth implant ORIF WRIST [...] proposed surgery scheduled. KNEE SCOPE 03/01/25 @ [facility] 02/02/25 @ [address] [place] [address] 02/02/25 @ [facility] Follow up for Post-Op 03/15/25 @ [address] [place] [address]. documented in this encounter [facility] 12-25-2024 History of Present illness Narrative Images from the original note were not included. HISTORY OF PRESENT ILLNESS: EST PT Oscar Escoto is an 74 y.o. @ male. (EST PT-PREVIOUSLY SAW [facility] ON 11/30/24) RECHECK (L) KNEE PAIN; HERE FOR MRI RESULTS DONE ON 12/18/24 AT [facility]. XRAY B/L AP WB KNEES 11/09/24 IN [facility] XRAY (L) KNEE 10/07/24 [facility] MRI (L) KNEE 12/18/24 [facility] DEPO MEDROL INJ 11/09/24 - 50% IMPROVEMENT P.T (#5 VISITS 10/20/24- 11/05/24) NOM KAIN PAIN MGMT 10/07/24 [facility] NO PRESNISONE/MDP [...] requiring urgent evaluation. documented in this encounter [facility] 12-11-2024 Telephone encounter Note Patient called stating that [facility] in [place] did not receive the rx needed prior to MRI being done. Please advise. [facility] 12-11-2024 Miscellaneous Notes Patient called stating that [facility] in [place] did not receive the rx needed prior to MRI being done. Please advise. documented in this encounter [facility] 12-10-2024 Telephone encounter Note Faxed referral, MRI order, office notes and XR report to [facility]. [facility] 12-10-2024 Miscellaneous Notes Faxed referral, MRI order, office notes and XR report to [facility]. Patient called and left that he spoke with [facility]. They received authorization for his MRI. They have not received requested notes so they cannot schedule him until they receive the notes. Please advise. documented in this encounter [facility] 12-10-2024 Telephone encounter Note Patient called and left vm that he spoke with [facility]. They received authorization for his MRI. They have not received requested notes so they cannot schedule him until they receive the notes. Please advise. [facility] 11-30-2024 History of Present illness Narrative Images [...] f/u s/p MRI to be done at [facility]. documented in this encounter [facility] 11-10-2024 Note [facility] Consult Note Reason [...] years ago here he was admitted to [facility] with A. fib with rapid [...] 48 hours from 12/24/2021 to 12/10/2021 at [facility] was reviewed by me and shows PVC burden of less than 1% and PVC count of 6%. Occasional nonsustained atrial tachycardia few beats seen but no atrial fibrillation noted. No ventricular tachycardia noted EKG 10/17/2021 shows sinus rhythm with normal intervals Echocardiogram done at [place] on 09/06/2021 shows ejection fraction of 60% [...] spondylosis without myel (more content not included)... [facility] 11-[facility] History of Present illness Narrative Associated [...] been going to therapy in [facility] with improvement in strength but continues [...] Wakes pt at HS. Continues to play [employer] ball. [place]: Pain management 10/07/24, heat, TYL, [...] the left knee done on 10/08/24 at [facility] reveals tricompartmental arthritis, no fractures noted. [...] he understands this documented in this encounter [facility] 10-29-2024 History of Present illness Narrative Physical [...] to be instructed in home exercise program. Records Management Specialist Goals: To be met in 10 weeks [...] sign below. Date: documented in this encounter [facility] 10-20-2024 History of Present illness Narrative Physical [...] to be instructed in home exercise program. Records Management Specialist Goals: To be met in 10 weeks [...] sign below. Date: documented in this encounter [facility] 10-12-2024 Hospital Discharge instructions Patient Education 10/12/2024 [...] Follow these instructions at home: Medicines Take wdya-muf-rpjygss and prescription medicines only as told by [...] provider. Document Revised: 06/20/2022 Document Reviewed: 06/20/2022 [employer] Patient Education 2023 Devtap. Follow Up Care 06/24/2023 16:43:14 With:ESEQUIEL RUSSELL, Natali Gonzalez, URL Address: [facility] [address], [place] [address] [phone] When: Unknown Comments:6 mos [facility]24 Note Patient Education Urology Epididymitis Epididymitis [...] these instructions at home: Medicines ??? Take azlr-osv-rgeqhjn and prescription medicines only as told by [...] by your heal (more content not included)... [facility] 10-07-2024 History of Present illness Narrative [facility] [address] [place] [address] Patient: Oscar Escoto Sex: male : 1950 Age: 74 y.o. PCP: [facility] MD 10/07/2024 Oscra Escoto is here for a(n) follow up [...] Impairment. Past Medical History: Diagnosis Date Afib ([facility]) Back pain lumbar BPH (benign prostatic hyperplasia) Cancer ([facility]) multiple basal cell Chronic pain disorder Hip [...] 02/08/2023 Performed by Umair Decker MD at [facility] INJECTION BURSA LARGE JOINT: left ischial bursa Left 08/16/2023 Performed by Umair Decker MD at [facility] LARGE JOINT BURSA Right 04/12/2017 Performed by Umair Decker MD at [facility] MEDIAL BRANCH NERVE BLOCK: right [id number] 51mbb Right 08/12/2020 Performed by Umair Decker MD at [facility] INSERTION LOOP RECORDER 01/24/2023 Dr Amin at [facility] JOINT REPLACEMENT right hip ORTHOPEDIC SURGERY Left 2012 wrist fixation RADIO FREQUENCY ABLATION: right [id number] Right 09/23/2020 Performed by Umair Decker MD at [facility] REPAIR HERNIA INGUINAL WITH MESH Right 09/23/2018 Performed by Kavya Germain DO at [facility] REPAIR HERNIA UMBILICAL WITH MESH N/A 09/23/2018 Performed by Kavya Germain DO at [facility] REPLACEMENT TOTAL JOINT ANTERIOR SUPINE INTERMUSCULAR HIP Right 07/10/2017 Performed by Schuyler Ambrocio MD at [facility] TONSILLECTOMY WRIST SURGERY No Known Allergies Family [...] Resource Strain: Low Risk (02/03/2024) Received from [facility], [facility] Overall Financial Resource Strain (CARDIA) Difficulty of Paying Living Expenses: Not hard at all Food Insecurity: No Food Insecurity (10/07/2024) Hunger Screening Food Insecurity - Worry: Never True Food Insecurity - Inability: Never True Transportation Needs: No Transportation Needs (02/03/2024) Received from [facility] PRAPARE - Transportation Lack of Transportation (Medical): No Lack of Transportation (Non-Medical): No Physical Activity: Sufficiently Active (02/03/2024) Received from [facility] Exercise Vital Sign Days of Exercise per Week: 3 days Minutes of Exercise per Session: 60 min Stress: No Stress Concern Present (02/03/2024) Received from [facility] [place] of Occupational Health - Occupational Stress Questionnaire Feeling of Stress : Not at all Social Connections: Moderately Integrated (02/03/2024) Received from [facility] Social Connection and Isolation Panel [NHANES] Frequency of Communication with Friends and Family: Once a week Frequency of Social Gatherings with Friends and Family: Once a week Attends Rastafari Services: More than 4 times per year Active Member of Clubs or Organizations: Yes Attends Club or Organization Meetings: More than 4 times per year Marital Status: Interpersonal Safety: Unknown (01/16/2024) [facility] [place] Safety & Environment Fear of Current or Ex-Partner: Not on file Emotionally Abused: Not on file Physically Abused: Not on file Sexually Abused: Not on file Physically or Sexually Abused: Not on file Housing Instability: Low Risk (02/03/2024) Received from [facility] Housing Stability Vital Sign Unable to Pay [...] PA-C by Jaelyn Guevara CNA. Provider Statement: ICECILIA PA-C, personally performed the services described in the documentation, as scribed by Jaelyn Guevara CNA in my presence, and it is both accurate and complete. Jaelyn Guevara CNA 10/07/24 1420 Cecilia Anderson PA-C 10/07/24 [id number] documented in this encounter [facility] 08-13-2024 History of Present illness Narrative Images [...] Scalp (5), Right Anterior Neck, Right [place], Right Parotid Area, Right Posterior Neck, Right Preauricular Area, Right [place], Right Jehovah'S Witness, Right Temporal Scalp Erythematous scaly papules Patient [...] limited to risks of scarring, darker or almond pan finisher pigmentary changes, recurrence, incomplete removal and infection. [...] Scalp (5), Right Anterior Neck, Right [place], Right Parotid Area, Right Posterior Neck, Right Preauricular Area, Right [place], Right [employer], Right Temporal Scalp 6. History of basal [...] months skin check documented in this encounter [facility] 06-24-2023 Hospital Discharge instructions Patient Education [...] urethra. Follow these instructions at home: Take dgpd-ghl-ykplunc and prescription medicines only as told by [...] provider. Document Revised: 05/30/2022 Document Reviewed: 05/30/2022 [employer] Patient Education 2022 [employer]. Follow Up Care 05/07/2022 15:53:47 With:ESEQUIEL RUSSELL, Natali Gonzalez, URL Address: [facility] [address], [place] [address]- [phone] When: Unknown Comments:1 yr w/ PSA [facility] 12-18-2022 Note PROCEDURE: XR FOOT L [...] authenticated by: MARÍA BRYSON Date: 2022-12-18 09:32 [facility] 11-06-2022 Note PROCEDURE: XR FOOT L [...] authenticated by: RAZ MATOS Date: 2022-11-06 15:27 [facility] 10-17-2022 Note PROCEDURE: XR FOOT L [...] authenticated by: RAZ MATOS Date: 2022-10-17 10:46 [facility] 09-27-2022 Note PROCEDURE: XR FOOT L [...] authenticated by: MARÍA BRYSON Date: 2022-09-27 18:29 [facility] 05-15-2022 Note PROCEDURE: XR FOOT R [...] authenticated by: MARÍA BRYSON Date: 2022-05-15 21:39 [facility] 05-07-2022 Hospital Discharge instructions Patient Education [...] 11/11/2006 Document Revised: 07/31/2019 Document Reviewed: 10/11/2017 [employer] Patient Education 2020 [employer]. 05/07/2022 15:46:01 Benign Prostatic Hyperplasia Benign Prostatic [...] urethra. Follow these instructions at home: Take tauh-rom-xnqzzcc and prescription medicines only as told by [...] 11/11/2006 Document Revised: 10/06/2019 Document Reviewed: 12/16/2017 [employer] Patient Education 2020 [employer]. Follow Up Care 09/04/2021 16:41:31 With:Natali IRAHETA MD, URL Address: [facility] [address], [place] [address]- [phone] When:Within 1 Year(s) Comments:f/u in 1 year with PSA and NAIMA [facility] Evaluation + Plan note Future Appointments Appointment Date:05/13/2023 03:00:00 PM Scheduled Provider:Natali IRAHETA MD Location:[facility] Appointment Type:URO Office Visit Diagnostic Tests PendingPSA Total 05/07/22 [facility] Evaluation + Plan note Future Appointments Appointment Date:06/29/2024 03:00:00 PM Scheduled Provider:Natali IRAHETA MD Location:[facility] Appointment Type:URO Office Visit Diagnostic Tests PendingPSA Total 06/24/23 [facility] Evaluation + Plan note Future Appointments Appointment Date:04/12/2025 01:15:00 PM Scheduled Provider:Natali IRAHETA MD Location:[facility] Appointment Type:URO Office Visit Diagnostic Tests PendingPSA Total 10/12/24 [facility] Evaluation + Plan note Future Appointments Appointment Date:10/25/2025 10:15:00 AM Scheduled Provider:Natali IRAHETA MD Location:[facility] Appointment Type:URO [facility] No assessment inform ation available [facility] Work Phone: Evaluation note Diagnosis [...] unspecified chronicity- Primary [facility] Medicare annual wellness [...] Other postprocedural status [facility] [...] neoplasm of skin [facility] [...] (CMS/HCC) Atrial fibrillation documented [facility] [...] prostate Paroxysmal atrial fibrillation (CMS/HCC) Atrial fibrillation Status post arthroscopy of left knee- Primary Other postprocedural status documented in [facility] [...] prostate Paroxysmal atrial fibrillation (CMS/HCC) Atrial fibrillation Basal cell carcinoma of skin of left lower limb, including hip- Primary documented in this encounter [facility]* Diagnosis Medicare annual wellness visit, subsequent- Primary Dyslipidemia Other and unspecified hyperlipidemia Encounter for long-term (current) use of medications Encounter for long-term (current) use of other medications Prediabetes Other abnormal glucose Screening PSA (prostate specific antigen) Special screening for malignant neoplasm of prostate Obesity (BMI 30-39.9) Medicare annual wellness visit, subsequent- Primary Prediabetes Other abnormal glucose Dyslipidemia Other and unspecified hyperlipidemia Encounter for long-term (current) use of medications Encounter for long-term (current) use of other medications Screening PSA (prostate specific antigen) Special screening for malignant neoplasm of prostate Paroxysmal atrial fibrillation (HCC) Atrial fibrillation Basal cell carcinoma (BCC) of right forearm- Primary Basal cell carcinoma of skin of left lower limb, including hip documented in this encounter [facility] HealthcareEvaluation note* Diagnosis Medicare annual wellness visit, subsequent- Primary Dyslipidemia Other and unspecified hyperlipidemia Encounter for long-term (current) use of medications Encounter for long-term (current) use of other medications Prediabetes Other abnormal glucose Screening PSA (prostate specific antigen) Special screening for malignant neoplasm of prostate Obesity (BMI 30-39.9) Medicare annual wellness visit, subsequent- Primary Prediabetes Other abnormal glucose Dyslipidemia Other and unspecified hyperlipidemia Encounter for long-term (current) use of medications Encounter for long-term (current) use of other medications Screening PSA (prostate specific antigen) Special screening for malignant neoplasm of prostate Paroxysmal atrial fibrillation (HCC) Atrial fibrillation Inguinal pain, right- Primary H/O epididymitis documented in this encounter [facility] HealthcareEvaluation note* Diagnosis Chronic epididymitis- Primary [facility] Narrative No data available for this section [facility] InstructionsNot on filedocumented in this encounter [facility] filedocumented in this encounter [facility] note No data available for this section [facility] reason for referral (narrative)* Clinic-Administered Medication (Routine) - Closed Specialty Diagnoses / Procedures Referred By Contac t Referred To Contact Orthopaedic Surgery Procedures L Inj/Asp: L knee Mary Lou Diane, NAHEED [address] [place] [address] Phone: tel: fax: Referral ID Status Reason Start Date Expiration Date Visits Re quested Visits Authorized [id number] Closed 11/09/2024 05/08/2025 1 1 [facility] - Outpatient (Routine) - Authorized Specialty Diagnoses / Procedures Referred By Contac t Referred To Contact Physical Therapy Diagnoses Pain in left knee Procedures [place] PHYSICAL THERAPY EVALUATION LOW COMPLEX 20 MINS [place] OFFICE/OUTPATIENT NEW HIGH Cecilia Sanchez MD [address] [place] [address] Phone: tel: fax: Yenny Rowe PT Referral ID Status Reason Start Date Expiration Date V isits Requested Visits Authorized [id number] Authorized 10/20/2024 04/18/2025 99 99 [facility] HealthcareReason for visit Narrative* Rehabilitation - Outpatient (Routine) - Authorized Specialty Diagnoses / Procedures Referred By Contac t Referred To Contact Physical Therapy Diagnoses Pain in left knee Procedures [place] PHYSICAL THERAPY EVALUATION LOW COMPLEX 20 MINS [place] OFFICE/OUTPATIENT NEW HIGH Cecilia Sanchez MD [address] [place] [address] Phone: tel: fax: Yenny Rowe PT Referral ID Status Reason Start Date Expiration Date V isits Requested Visits Authorized [id number] Authorized 10/20/2024 11/24/[address] [facility] Healthcare Chief Complaint and Reason for [...] Dates Sakina Carpenter MD Attending Provider Active Facility Security Officer Relationship Specialty Start Date End Date North Chapin MD [address] [place] [address] PCP - General Family Medicine 02/04/24 North Chapin MD [address] [place] [address] PCP - [employer] 02/24/24 Facility Security Officer Relationship Specialty Start Date End Date North Chapin MD [address] [place] [address] PCP - General Family Medicine 02/04/24 North Chapin MD [address] [place] [address] PCP - [employer] 02/24/24 Facility Security Officer Relationship Specialty Start Date End Date North Chapin MD [address] [place] [address] PCP - General Family Medicine 02/04/24 North Chapin MD [address] [place] [address] PCP - [employer] 02/24/24 Facility Security Officer Relationship Specialty Start Date End Date North Chapin MD [address] [place] [address] PCP - General Family Medicine 02/04/24 North Chapin MD [address] [place] [address] PCP - [employer] 02/24/24 Facility Security Officer Relationship Specialty Start Date End Date North Chapin MD [address] [place] [address] PCP - General Family Medicine 02/04/24 North Chapin MD [address] [place] [address] PCP - [employer] 02/24/24 Facility Security Officer Relationship Specialty Start Date End Date North Chapin MD [address] [place] [address] PCP - General Family Medicine 02/04/24 North Chapin MD [address] [place] [address] PCP - [employer] 02/24/24 Facility Security Officer Relationship Specialty Start Date End Date North Chapin MD [address] [place] [address] PCP - General Family Medicine 02/04/24 North Chapin MD [address] [place] [address] PCP - [employer] 02/24/24 Facility Security Officer Relationship Specialty Start Date End Date North Chapin MD [address] [place] [address] PCP - General Family Medicine 02/04/24 North Chapin MD [address] [place] [address] PCP - [employer] 02/24/24 Facility Security Officer Relationship Specialty Start Date End Date North Chapin MD [address] [place] [address] PCP - General Family Medicine 02/04/24 North Chapin MD [address] [place] [address] PCP - [employer] 02/24/24 Facility Security Officer Relationship Specialty Start Date End Date North Chapin MD [address] [place] [address] PCP - General Family Medicine 02/04/24 North Chapin MD [address] [place] [address] PCP - [employer] 02/24/24 Facility Security Officer Relationship Specialty Start Date End Date North Chapin MD [address] [place] [address] PCP - General Family Medicine 02/04/24 North Chapin MD [address] [place] [address] PCP - [employer] 02/24/24 Facility Security Officer Relationship Specialty Start Date End Date North Chapin MD [address] [place] [address] PCP - General Family Medicine 02/04/24 North Chapin MD [address] [place] [address] PCP - [employer] 02/24/24 Facility Security Officer Relationship Specialty Start Date End Date North Chapin MD [address] [place] [address] PCP - General Family Medicine 02/04/24 North Chapin MD [address] [place] [address] PCP - [employer] 02/24/24 Facility Security Officer Relationship Specialty Start Date End Date North Chapin MD [address] [place] [address] PCP - General Family Medicine 02/04/24 North Chapin MD [address] [place] [address] PCP - [employer] 02/24/24 Facility Security Officer Relationship Specialty Start Date End Date North Chapin MD [address] [place] [address] PCP - General Family Medicine 02/04/24 North Chapin MD [address] [place] [address] PCP - [employer] 02/24/24 Facility Security Officer Relationship Specialty Start Date End Date North Chapin MD [address] [place] [address] PCP - General Family Medicine 02/04/24 North Chapin MD [address] [place] [address] PCP - [employer] 02/24/24 Facility Security Officer Relationship Specialty Start Date End Date North Chapin MD [address] [place] [address] PCP - General Family Medicine 02/04/24 North Chapin MD [address] [place] [address] PCP - [employer] 02/24/24 Facility Security Officer Relationship Specialty Start Date End Date North Chapin MD [address] [place] [address] PCP - General Family Medicine 10/07/24 Facility Security Officer Relationship Specialty Start Date End Date North Chapin MD [address] [place] [address] PCP - General Family Medicine 02/04/24 North Chapin MD [address] [place] [address] PCP - [employer] 02/24/24 Facility Security Officer Relationship Specialty Start Date End Date North Chapin MD [address] [place] [address] PCP - [facility] 02/04/24 North Chapin MD [address] [place] [address] PCP [facility] 02/24/24 Facility Security Officer Relationship Specialty Start Date End Date North Chapin MD [address] [place] [address] [facility] 02/04/24 North Chapin MD [address] [place] [address] PCP [facility] 02/24/24 Facility Security Officer Relationship Specialty Start Date End Date North Chapin MD [address] [place] [address] PCP [facility] 02/04/24 North Chapin MD [address] [place] [address] [facility] 02/24/24 Facility Security Officer Relationship Specialty Start Date End Date North Chapin MD PCP [facility] 10/07/24 Goals (unrecognized section and content) Goals may be documented in a n alternate section (unrecognized sect ion and content) No Status Records FoundNo Status Records FoundNo Status Records FoundNo Status Records FoundNo Status Records FoundNo Status Records FoundNo Status Records FoundNo Status Records Found INFORMATION SOURCE (unrecogn ized section and content) DATE CREATED AUTHOR 03/24/2023 [facility] DATE CREATED AUTHOR AUTHOR'S ORGANIZ ATION 04/10/2023 [facility] DATE CREATED AUTHOR AUTHOR'S ORGANIZ ATION 10/09/2024 [facility] DATE CREATED AUTHOR AUTHOR'S ORGANIZ ATION 04/02/2025 [facility] DATE CREATED AUTHOR AUTHOR'S ORGANIZ ATION 04/06/2025 [facility] DATE CREATED AUTHOR AUTHOR'S ORGANIZ ATION 07/02/2025 [facility] DATE CREATED AUTHOR AUTHOR'S ORGANIZ ATION 07/16/2025 [facility] DATE CREATED AUTHOR AUTHOR'S ORGANIZ ATION 07/17/2025 [facility] Reason for Visit (unrecogniz ed section and content) Reason Comments Pain Reason Comments Follow-up Reason Comments Med Refill Reason Onset Date Comments MRI 12/10/2024 Reason Onset Date Comments RX 12/11/2024 Reason Comments Follow-up Reason Comments Knee Pain Reason Comments Pre-op Exam Reason Comments Pain Reason Comments Medicare Annual Wellness Visit Subsequ t WellnessSleeping medication Reason Comments Saucerization excision Reason Comments Follow-up Possible hernia Reason Comments Hernia RECURRENT RIGHT SIDE INGUINAL HERNIA, REFERRED BY DR CHAPIN Specialty Diagnoses / Procedures Referred By Kaitlynn yeung Referred To Contact General Surgery Diagnoses Inguinal pain, right History of inguinal hernia Procedures [place] OFFICE OUTPATIENT VISIT 60-74 MINS HIGH MDM [id number] (SNOMED CT) - AMB REFERRAL TO GENERAL SURGERY North Chapin MD [address] [place] [address] Phone: tel: fax: Kavya Germain DO [facility] [place] [address] Phone: tel: fax: Referral ID Status Reason Start Date Expiration Date Visits Re quested Visits Authorized [id number] Closed 07/06/2025 01/02/2026 1 1 FOR RECORDS PERTAINING TO PATIENTS WHO ARE [...] ON THE PRIMARY CLINICAL RECORDS. [facility]. provides no warranty or guarantee of the accuracy or completeness of information in this document.
[2025-07-24 11:20] LABS: Anion Gap 13.2; Blood Urea Nitrogen 16.0 mg/dL (7.0-18.0); Calcium 9.0 mg/dL (8.5-10.1); Carbon Dioxide 27.7 mmol/L (21.0-32.0); Chloride 107 mmol/L (98-107); Estimated GFR (African America >60 (>=60 mL/min/1.73m^2); Estimated GFR (Non-African Ame >60 (>=60 mL/min/1.73m^2); Glucose 98 mg/dL (74-106); Potassium 3.9 mmol/L (3.5-5.1); Sodium 144 mmol/L (136-145)
== END 2025-07-24 10:25 | disposition home or self-care (01) ==
LOC: LAB 10:25
PROVIDERS: PCP Family Medicine
DX: I10 Essential (primary) hypertension (principal)
CPT/HCPCS: 36415; 80048

== ENCOUNTER 2025-08-03 09:18 | Outpatient (OUT) | payer MEDICARE, SELFPAY ==
--- OUTSIDE RECORDS SUMMARY | 2025-07-27 14:15 | XMS_ITS | Encounter Summary ---
Author Organization [facility] Address [address] [place] [address] Care Team Providers Care Whiting Can Worker Name Role Phone North Gomes MD Primary Care Provider [phone] Encounter Details Date Type Department Care Team (Late st Contact Info) Description 07/27/2025 2:15 PM EDT Office Visit [facility] [address] [place] [address] Tiago Wilburn MD [address] [place] [phone] Abnormal EKG (Primary Dx); Pre-op evaluation Social History Tobacco Use Types Packs/Day Years Used Date Smoking Tobacco: Never Smokeless Tobacco: Never Alcohol Use Standard Drinks/Week Comments Yes 0 (1 standard drink = 0.6 oz pur e alcohol) occasional [place] Safety & Environment Answer Date Rec orded Fear of Current or Ex-Partner Not on file Emotionally Abused Not on file 01/16/2024 Physically Abused Not on file 01/16/2024 Sexually Abused Not on file 01/16/2024 Physically or Sexually Abused Not on file Comments Unknown Sex and Gender Information Value Date Recorded Sex Assigned at Choose not to disclose 10:59 PM EDT Legal Sex Male 11:50 PM EDT Gender Identity Choose not to disclose 10:59 PM EDT Sexual Orientation Choose not to disclose 2024 10:59 PM EDT documented as of this encounter Last Filed Vital Signs Vital Sign Reading Time Taken Comments Blood Pressure 106/66 07/27/2025 2:24 PM EDT Pulse 69 07/27/2025 2:24 PM EDT Temperature - - Respiratory Rate - - Oxygen Saturation 93% 07/27/2025 2:24 PM EDT Inhaled Oxygen Concentration - - Weight 114 kg (251 lb) 07/27/2025 2:24 PM EDT Height 188 cm (6' 2 ) 07/27/2025 2:24 PM EDT Body Mass Index 32.23 07/27/2025 2:24 PM EDT documented in this encounter Progress Notes * Tiago Wilburn MD - 07/27/2025 2:15 PM EDT Images from the original note were not included. [place] Electrophysiology Consult Note Reason for visit: Dizziness/SVT 07/27/25 Patient is here today for A-Fib management per Mike Bangura CNP. Patient states he feels pretty good. Patient denies chest pain, palpitations/racing heart, dizziness/lightheaded, SOB, KOENIG. Patient states complaints at this. Review of his loop data shows that he had episodes of A-fib that occurred in January 2025 as well as in February and then again in June 28 and July 27. He scheduled to have orchiectomy for chronic epididymitis and has not had any recent stress test done Review of Systems Constitutional: Negative. 11/10/24 Pt is doing well and tolerating [...] Fib. Prior HPI: Oscar Manuel is a 75 y.o. year old with past medical history of atrial fibrillationthat was diagnosed few years ago here he was admitted to [facility] with A. fib with rapid ventricular rate. He was started on Cardizem and converted on his own to sinus rhythm. Subsequent to that he hasn't had any significant episodes but occasionally has felt his heart rate being fast for a very short while. He is otherwise very active with no limitations. Does not endorse any chest painor shortness of breath and recently had a foot surgery which has limited slightly. He had an Holtermonitor placed recently for some palpitations which did [...] 48 hours from 12/24/2021 to 12/10/2021 at [facility] was reviewed byme and shows PVC burden of less than 1% and PVC count of 6%. Occasional nonsustained atrial tachycardia few beats seen but no atrial fibrillation noted. No ventricular tachycardia noted EKG 10/17/2021 shows sinus rhythm with normal intervals Echocardiogram done at [facility] on 09/06/2021 shows ejection fraction of 60% [...] left foot Pseudarthrosis after fusion or arthrodesis PSH: Past Surgical History: Procedure Laterality Date HERNIA REPAIR 03/25/2019 PARTIAL HIP ARTHROPLASTY 07/10/2017 TONSILLECTOMY WRIST SURGERY SH: Social Drivers of Health Tobacco Use: Low Risk (07/27/2025) Patient History Smoking Tobacco Use: Never Smokeless Tobacco Use: Never Passive Exposure: Not on file Alcohol Use: Not At Risk (02/03/2024) Received from [facility] AUDIT-C Frequency of Alcohol Consumption: 2-4 times a month Average Number of Drinks: 1 or 2 Frequency of Binge Drinking: Never Financial Resource Strain: Low Risk (02/03/2024) Received from [facility] Overall Financial Resource Strain (CARDIA) Difficulty of Paying Living Expenses: Not hard at all Food Insecurity: No Food Insecurity (10/07/2024) Received from [facility] Hunger Screening Within the past 12 months we worried whether our food would run out before we got money to buy more.: Never True Within the past 12 months the food we bought just didn't last and we didn't have money to get more.: Never True Transportation Needs: No Transportation Needs (02/03/2024) Received from [facility] PRAPARE - Transportation Lack of Transportation (Medical): No Lack of Transportation (Non-Medical): No Physical Activity: Sufficiently Active (02/03/2024) Received from [facility] Exercise Vital Sign Days of Exercise per Week: 3 days Minutes of Exercise per Session: 60 min Stress: No Stress Concern Present (02/03/2024) Received from [facility] [place] of Occupational Health - Occupational Stress Questionnaire Feeling of Stress : Not at all Social Connections: Moderately Integrated (02/03/2024) Received from [facility] Social Connection and Isolation Panel [NHANES] Frequency of Communication with Friends and Family: Once a week Frequency of Social Gatherings with Friends and Family: Once a week Attends Latter Day Services: More than 4 times per year Active Member of Clubs or Organizations: Yes Attends Club or Organization Meetings: More than 4 times per year Marital Status: Intimate Partner Violence: Unknown (01/16/2024) [place] Safety & Environment Fear of Current or Ex-Partner: Not on file Emotionally Abused: Not on file Physically Abused: Not on file Sexually Abused: Not on file Physically or Sexually Abused: Not on file Depression: Not at risk (03/29/2025) Received from [facility] PHQ-2 Patient Health Questionnaire-2 Score: 0 Housing Stability: Low Risk (02/03/2024) Received from [facility] Housing Stability Vital Sign Unable to Pay for Housing in the Last Year: No Number of Places Lived in the Last Year: 1 Unstable Housing in the Last Year: No Utilities: Not on file Health Literacy: Not on file Allergies: No Known Allergies Weight: 114kg Visit Vitals BP 95/55 (BP Location: Right arm, Patient Position: Sitting) Pulse 62 Ht 1.88 m (6' 2 ) Wt 114 kg (251 lb) SpO2 94% BMI 32.23 kg/m?? Smoking Status Never BSA 2.44 m?? Meds: Current Outpatient Medications on File Prior to Visit Medication Sig Dispense Refill dilTIAZem CD (Cardizem CD) 240 mg 24 hr capsule Take 1 capsule (240 mg) by mouth once daily as directed. 90 capsule 3 doxepin (SINEquan) 50 mg capsule doxepin 50 mg capsule famotidine (Pepcid) 20 mg tablet Take 20 mg by mouth twice a day. ferrous sulfate 325 (65 Fe) MG tablet Take 325 mg by mouth in the morning. finasteride (Proscar) 5 mg tablet finasteride 5 mg tablet lisinopril 10 mg tablet Take 1 tablet (10 mg) by mouth once daily as directed. 90 tablet 3 rivaroxaban (Xarelto) 20 mg tablet Take 1 tablet (20 mg) by mouth daily with evening meal. Take with food. 90 tablet 3 rOPINIRole (Requip) 2 mg tablet ropinirole 2 mg tablet tamsulosin (Flomax) 0.4 mg 24 hr capsule tamsulosin 0.4 mg capsule cholecalciferol (Vitamin D-3) 125 MCG (5000 UT) capsule Take 125 mcg by mouth in the morning. (Patient not taking: Reported on 07/27/2025) No current facility-administered medications on file prior to visit. Review of Systems Musculoskeletal: Positive for arthritis, back pain and joint pain. Physical Exam: Constitutional General Appearance: well-nourished, well-developed, appears stated age Level of Distress: comfortable Psychiatric Mental Status: alert, normal affect Orientation: oriented to time, place, and person Insight: good judgement Eyes Lids and Conjunctivae: non-injected, no xanthelasma ENMT Ears: no lesions on external ear Nose: no lesions on external nose Oropharynx: no cyanosis, no pallor Neck Neck: supple, trachea midline Carotid Arteries: bilateral normal upstroke, no bruits Jugular Veins: normal jugular venous pressure Thyroid: not enlarged Lungs Respiratory Effort: unlabored Chest Exam: normal curvature, no thoracic deformity Auscultation: clear, no wheezing, no rales, no rhonchi Cardiovascular Rate And Rhythm: regular Heart Sounds: normal S1, normal s2, no gallop Systolic Murmur: not heard Diastolic Murmur: not heard Extremities: no cyanosis, no edema, no peripheral signs of emboli Peripheral Pulses Radial Pulse: normal Abdomen Inspection and Palpation: soft, non distended, no bruit, non tender Musculoskeletal Inspection: no joint swelling Neurologic Gait: normal gait Skin Inspection and Palpation: warm and dry Nails: no clubbing Labs: @LABRESULTS@ No results found for: CHOLESTEROL TOTAL , HDL , LDL CALC , LDL DIRECT , TRIGLYCERIDES , TSH , T3 TOTAL , T4 TOTAL , THYROID PEROXIDASE AB , BNP EKG: EKG this visit is SR. In media tab. Echo: 05/2019 Conclusions Global left ventricular systolic function is normal (Visually estimated EF 55%). No regional wall motion abnormality. Normal diastolic function. Normal right ventricular systolic function. The right ventricle is mildly enlarged. The left atrium is mildly enlarged. The right atrium is moderately enlarged. Doppler studies suggest normal right sided pressures. No significant valvular abnormalities Stress test: Stress Echo Conclusions - 10/12/2016 - Assessment: [...] Functional capacity is normal (-20 - +19%) Coronary angiogram: @CATH@ Diagnostic Imaging: No images are attached to the encounter. Assessment and Plan: Early persistent atrial fibrillation (CMS/HCC) - [id number]: 1 (age), Ct OAC Loop reveals multiple episodes of atrial fibrillation. Will plan on A-fib ablation at the earliest.Until then he will be placed on antiarrhythmic drug and will proceed with a stress test to rule outCAD suspect he can be started on flecainide. 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 Sleep apnea -continue with compliance for cpap. patient has lost weight 1?? Medical Necessity Diagnosis: Atrial Fibrillation persistent Symptoms: Document palpitations, Failed Therapy: Pt prefers not to be on AAD Comorbidities:ypertension, 2?? Pre-Procedural Evaluation Diagnostics: 12-lead ECG documenting AF episodes Ambulatory monitoring Loop data TTE 2019 Labs/Imaging: CBC, BMP, INR (if on warfarin) TSH if clinically indicated Recent renal function Risk Assessment: CHADS? or HUDSON?DS?-VASc score2 HAS-BLED score1 Prior Ablation: AVNRT/Flutter ablation Tiago Wilburn MD Cardiac Electrophysiology [facility] documented in this encounter Plan of Treatment Scheduled Orders Name Type Priority Associated Diagnoses Orde r Schedule Treadmill Stress Myocardial Perfusion Imaging Cardiac Services Routine Abnormal EKG Pre-op evaluation Expected: 07/27/2025 (Approximate), Expires: 07/27/2027 documented as of this encounter Visit Diagnoses Diagnosis Abnormal EKG- Primary Nonspecific abnormal electrocardiogram (ECG) (EKG) Pre-op evaluation documented in this encounter Care Teams Whiting Can Worker Relationship Specialty Start Date End Date North Gomes MD [address] [place] [address] PCP - General 1/11/23 documented as of this encounter
--- NOTE | 2025-08-03 | NM_ITS ---
Patient Name: KAVITA AUSTIN MR#: [id number] : 1950 Exam Date: 08/03/2025 Ordering Doctor: ROXANNE AMIN RADIOLOGY REPORT PROCEDURE: NM ALEX PERF SPECT REST STR COMPARISON: None. INDICATIONS: ABNORMAL EKG, PRE-OP EVALUATION TECHNIQUE: Exam Description: Stress/Rest two day protocol gated SPECT Rest Imagin.9 mCi Tc-99m Cardiolite IV on 08/03/2025 Stress Imaging 31.1 mCi Tc-99m Cardiolite IV on 08/03/2025 Exercise Protocol: 0.4 mg Lexiscan given IV Heart Rate (bpm): Rest: 51 Max: 126 PMHR: 85 Blood Pressure: Rest: 108/66 Max: 162/70 Exercise Time: Minutes: 8 Seconds: 32 Stage Reached: Stage: 3 Mets 10.1 Symptoms: Rest and peak stress ECG findings were pending, and the exercise portion of the study was pending per attending physician [facility]. For more details, please see separate cardiac stress test report. FINDINGS: QUALITY OF STUDY: Good PERFUSION DEFECT: LOCATION: N/A SIZE: N/A SEVERITY: N/A TYPE: N/A WALL MOTION: Normal wall motion LV SIZE: 125 mL. TID / TCD: 0.9 LVEF: Calculated EF 71%. SUMMARY: Myocardial perfusion imaging study is normal CONCLUSION: 1. Myocardial perfusion is normal with soft tissue attenuation 2. Global left ventricular systolic function is normal; EF 71% 3. No significant transient ischemic dilatation Dictated by: Brayan Mcmahon M.D. on 08/03/2025 at 14:49 Approved by: Brayan Mcmahon M.D. on 08/03/2025 at 14:50
--- OUTSIDE RECORDS SUMMARY | 2025-08-03 09:24 | XMS_ITS | Encounter Summary ---
Author Organization [facility] Address [address] [place] [address] Care Team Providers Care Gas Adjuster Name Role Phone North Gomes MD Primary Care Provider [phone] North Gomes MD Unavailable Encounter Details Date Type Department Care Team (Latest Contact Info) Description 03/29/2025 Results Follow-Up [facility] [address] [place] [address] Miriam Carpenter MD [address] [facility] [address] [place] [address] Dermatopathology exam Social History Tobacco Use Types Packs/Day Years Used Date Smoking Tobacco: Never Smokeless Tobacco: Never Alcohol Use Standard Drinks/Week Comments Not Currently 0 (1 standard drink = 0.6 oz pur e alcohol) caffeine 1-2 cups per day Social Connection and Isolat ion Panel [NHANES] Answer Date Recorded In a typical week, how many times do you talk on the phone with family, friends, or neighbors? Once a week 02/03/2024 How often do you get togethe r with friends or relatives? Once a week 02/03/2024 How often do you attend chur ch or anabaptism services? More than 4 times per year 02/03/2024 Do you belong to any clubs o r organizations such as hindu groups, unions, fraternal or athletic groups, or school groups? Yes 02/03/2024 How often do you attend meet ings of the clubs or organizations you belong to? More than 4 times per year 02/03/2024 Are you , , di vorced, , never , or living with a partner? 02/03/2024 AUDIT-C Answer Date Recorded Q1: How often do you have a drink containing alc ohol? 2-4 times a month 02/03/2024 Q2: How many drinks containi ng alcohol do you have on a typical day when you are drinking? 1 or 2 02/03/2024 Q3: How often do you have si x or more drinks on one occasion? Never 02/03/2024 Overall Financial Resource Strain (CARDIA) Answe r Date Recorded How hard is it for you to pa y for the very basics like food, housing, medical care, and heating? Not hard at all 02/03/2024 PHQ-2 Answer Date Recorded Patient Health Questionnaire-2 Score 0 03/29/2025 [facility] - Occupational Stress Questionnaire Answer Date Recorded Do you feel stress - tense, restless, nervous, or anxious, or unable to sleep at night because your mind is troubled all the time - these days? Not at all 02/03/2024 Exercise Vital Sign Answer Date Recorde d On average, how many days pe r week do you engage in moderate to strenuous exercise (like a brisk walk)? 3 days 02/03/2024 On average, how many minutes do you engage in exercise at this level? 60 min 02/03/2024 Hunger Vital Sign Answer Date Recorded Within the past 12 months, y ou worried that your food would run out before you got the money to buy more. Never true 02/03/20 24 Within the past 12 months, t he food you bought just didn't last and you didn't have money to get more. Never true 02/03/2024 PRAPARE - Transportation Answer Date Re corded In the past 12 months, has l ack of transportation kept you from medical appointments or from getting medications? No 01/23 In the past 12 months, has l ack of transportation kept you from meetings, work, or from getting things needed for daily living? No 02/03/2024 Housing Stability Vital Sign Answer Julio e Recorded In the last 12 months, was t here a time when you were not able to pay the mortgage or rent on time? No 02/03/2024 In the last 12 months, how many places have you lived? 1 02/03/2024 In the last 12 months, was t here a time when you did not have a steady place to sleep or slept in a fdc (including now)? No 02/03/2024 Sex and Gender Information Value Date Recorded Sex Assigned at Not on file Legal Sex Male 7:14 PM EDT Gender Identity Not on file Sexual Orientation Not on file documented as of this encounter Functional Status * Over the past 2 weeks, how often have you been bothered by any of the following problems? Question Answer Date of Assessment Author Little interest or pleasure in doing things Not at all 03/29/2025 2:00 PM Abiola Walker MA Feeling down, depressed, or hopeless Not at all 03/29/2025 2:00 PM SANTIAGOT Abiola Cummins MA Patient Health Questionnaire -2 Score 0 03/29/2025 2:00 PM SANTIAGOT Abiola Cummins MA * Question Answer Date of Assessment Author Trouble falling or staying asleep, or sleeping too much Several days 03/29/2025 2:00 PM Patel Walker MA Feeling tired or having telma le energy Several days 03/29/2025 2:00 PM Abiola Walker MA Poor appetite or overeating Several days 03/29/2025 2: 00 PM Abiola Walker MA Feeling bad about yourself - or that you are a failure or have let yourself or your family down Not at all 03/29/2025 2:00 PM Abiola Walker MA Trouble concentrating on things, such as reading the newspaper or watching television Not at all 03/29/2025 2:00 PM Abiola Walker MA Moving or speaking so slowly that other people could have noticed? Or the opposite - being so fidgety or restless that you have been moving around a lot more than usual. Not at all 03/29/2025 2:00 PM Abiola Walker MA Thoughts that you would be better off or hurting yourself in some way Not at all 03/29/2025 2:00 PM Abiola Walker M A Patient Health Questionnaire -9 Score 3 03/29/2025 2:00 PM EDT Abiola Cummins MA documented as of this encounter Plan of Treatment Upcoming Encounters Date Type Department Care Team (Late st Contact Info) Description 09/28/2025 3:05 PM EST Office Visit [facility] [address] [place] [address] Miriam Carpenter MD [address] [place] [address] documented as of this encounter Visit Diagnoses Not on filedocumented in this encounter Additional Health Concerns Assessment Noted Time PHQ-9 Depression Total Score: 3 03/29/20 25 2:00 PM EDT documented as of this encounter Care Teams Gas Adjuster Relationship Specialty Start Date End Date North Gomes MD PCP - General Family Medicine 02/04/24 North Gomes MD [address] [place] [address] PCP - Aetghislaine 02/24/24 documented as of this encounter
--- OUTSIDE RECORDS SUMMARY | 2025-08-03 09:24 | XMS_ITS | Encounter Summary ---
Author Organization [facility] Address [address] [facility] [place] [address] Care Team Providers Care Guard Chief Name Role Phone North Gomes MD Primary Care Provider [phone] North Gomes MD Unavailable Reason for Referral * Consultation (Routine) - Closed Specialty Diagnoses / Procedures Referred By Kaitlynn yeung Referred To Contact General Surgery Diagnoses Inguinal pain, right History of inguinal hernia Procedures DE OFFICE/OUTPATIENT [facility] 60 MINUTES North Gomes MD Phone: tel: fax: Ventura Watson DO [address] [place] [id number] Phone: tel: fax: Referral ID Status Reason Start Date Expiration Date V isits Requested Visits Authorized [id number] Closed Specialty Services Required 07/06/2025 01/02/2026 1 1 Encounter Details Date Type Department Care Team (Late st Contact Info) Description 07/05/2025 Results Follow-Up [facility] [address] [place] [address] North Gomes MD [address] [place] [address] US scrotum Social History Tobacco Use Types Packs/Day Years [...] 02/03/2024 How often do you attend chur or shinto services? More than 4 times per year 02/03/2024 Do you belong to any clubs o r organizations such as spiritism groups, unions, fraternal or athletic groups, or [...] Recorded Patient Health Questionnaire-2 Score 0 03/29/2025 [facility] Occupat ional Health - Occupational Stress [...] place to sleep or slept in a [place] (including now)? No 02/03/2024 Sex and Gender Information Value Date Recorded Sex Assigned at Not on file Legal Sex Male 7:14 PM EDT Gender Identity Not on file Sexual Orientation Not on file documented as of this encounter Miscellaneous Notes * Telephone Encounter - North Gomes MD - 07/06/2025 4:47 PM EDT Referral in chart. documented in this encounter Plan of Treatment Upcoming Encounters Date Type Department Care Team (Late st Contact Info) Description 09/28/2025 3:05 PM EST Office Visit [facility] [address] [place] [address] Miriam Carpenter MD [address] [place] [address] Scheduled Referrals Name Type Priority Associated Diagnoses Order Schedule Ambulatory referral to General Surgery Outpatient Referral Routine Inguinal pain, right History of inguinal hernia Expected: 07/06/2025 (Approximate), Expires: 01/06/2026 documented as of this encounter Visit Diagnoses Diagnosis Inguinal pain, right- Primary History of inguinal hernia documented in this encounter Additional Health Concerns Assessment Noted Time PHQ-9 Depression Total Score: 3 03/29/20 25 2:00 PM EDT documented as of this encounter Care Teams Guard Chief Relationship Specialty Start Date End Date North Gomes MD PCP - General Family Medicine 02/04/24 North Gomes MD [address] [place] [address] PCP - Aetghislaine 02/24/24 documented as of this encounter
--- OUTSIDE RECORDS SUMMARY | 2025-08-03 09:24 | XMS_ITS | Encounter Summary ---
Author Organization [facility] Address [address] [facility] [address] [address] Care Team Providers Care Stringer Machine Tender Name Role Phone North Gomes MD Primary Care Provider [phone] North Gomes MD Unavailable Encounter Details Date Type Department Care Team (Late st Contact Info) Description 2025 Abstract [facility] [address] [place] [address] North Gomes MD [address] [place] [address] Social History Tobacco Use Types Packs/Day Years [...] often do you attend chur ch or synagogue services? More than 4 times per year [...] and heating? Not hard at all 02/03/2024 [facility] of Occupat ional Health - Occupational Stress [...] place to sleep or slept in a nursing home (including now)? No 02/03/2024 Sex and Gender Information Value Date Recorded Sex Assigned at Not on file Legal Sex Male 7:14 PM EDT Gender Identity Not on file Sexual Orientation Not on file documented as of this encounter Plan of Treatment Upcoming Encounters Date Type Department Care Team (Late st Contact Info) Description 09/28/2025 3:05 PM EST [facility] Visit [facility] [address] [place] [address] Miriam Carpenter MD [address] [place] [address] documented as of this encounter Visit Diagnoses Not on filedocumented in this encounter Care Teams Stringer Machine Tender Relationship Specialty Start Date End Date North Gomes MD PCP - General Family Medicine 02/04/24 North Gomes MD [address] [place] [address] PCP - [employer] 02/24/24 documented as of this encounter
--- OUTSIDE RECORDS SUMMARY | 2025-08-03 09:24 | XMS_ITS | Encounter Summary ---
Author Organization [facility] Address [address] [facility] [place] [address] Care Team Providers Care Customer Professional Name Role Phone North Gomes MD Primary Care Provider [phone] North Gomes MD Unavailable Encounter Details Date Type Department Care Team (Late st Contact Info) Description 04/05/2025 Results Follow-Up [facility] [address] [place] [address] North Gomes MD [address] [place] [address] MLR HEMOGLOBIN A1C, ALL BASIC METABOLIC PANEL, ALL LIPID PROFILE (FASTING) Social History Tobacco Use Types Packs/Day Years [...] week 02/03/2024 How often do you attend [facility] or sikhism services? More than 4 times per year 02/03/2024 Do you belong to any clubs o r organizations such as jew groups, unions, fraternal or athletic groups, or [...] Recorded Patient Health Questionnaire-2 Score 0 03/29/2025 [facility] - Occupational Stress Questionnaire Answer Date Recorded [...] place to sleep or slept in a halfway (including now)? No 02/03/2024 Sex and Gender Information Value Date Recorded Sex Assigned at Not on file Legal Sex Male 7:14 PM EDT Gender Identity Not on file Sexual Orientation Not on file documented as of this encounter Plan of Treatment Upcoming Encounters Date Type Department Care Team (Late st Contact Info) Description 09/28/2025 3:05 PM EST Office Visit [facility] [address] [place] [address] Miriam Carpenter MD [address] [place] [address] documented as of this encounter Visit Diagnoses Not on filedocumented in this encounter Additional Health Concerns Assessment Noted Time PHQ-9 Depression Total Score: 3 03/29/20 25 2:00 PM EDT documented as of this encounter Care Teams Customer Professional Relationship Specialty Start Date End Date North Gomes MD PCP - General Family Medicine 02/04/24 North Gomes MD [address] [place] [address] PCP - [employer] 02/24/24 documented as of this encounter
--- OUTSIDE RECORDS SUMMARY | 2025-08-03 09:24 | XMS_ITS | Clinical Summary ---
Author Organization [facility] Address [address] [place] [address] Phone Care Team Providers Care Automotive Machinist Name Role Phone Unavailable Primary Care Provider Unavailabl e Social History Tobacco Use Types Packs/Day Years Used Date Smoking Tobacco: Never Assessed Sex and Gender Information Value Date Recorded Sex Assigned at Not on file Legal Sex Male 1:10 PM EST Gender Identity Not on file Sexual Orientation Not on file Plan of Treatment Not on file
--- OUTSIDE RECORDS SUMMARY | 2025-08-03 09:24 | XMS_ITS | Encounter Summary ---
Author Organization [facility] Address [address] [facility] [place] [address] Care Team Providers Care Wardrobe Mistress Name Role Phone North Gomes MD Primary Care Provider [phone] North Gomes MD Unavailable Encounter Details Date Type Department Care Team (Late st Contact Info) Description 07/06/2025 Orders Only [facility] [address] [place] [address] North Gomes MD [address] [place] [address] Social History Tobacco Use Types Packs/Day Years [...] often do you attend chur ch or church services? More than 4 times per year 02/03/2024 Do you belong to any clubs o r organizations such as mormon groups, unions, fraternal or athletic groups, or [...] Recorded Patient Health Questionnaire-2 Score 0 03/29/2025 [facility] - Occupational [...] place to sleep or slept in a detention (including now)? No 02/03/2024 Sex and Gender [...] Dermatology [address] [place] [address] Miriam Carpenter MD [address] [place] [address] documented as of this encounter Visit Diagnoses Not on filedocumented in this encounter Additional Health Concerns Assessment Noted Time PHQ-9 Depression Total Score: 3 03/29/20 25 2:00 PM EDT documented as of this encounter Care Teams Wardrobe Mistress Relationship Specialty Start Date End Date North Gomes MD PCP - General Family Medicine 02/04/24 North Gomes MD [address] [place] [address] PCP - [employer] 02/24/24 documented as of this encounter
--- OUTSIDE RECORDS SUMMARY | 2025-08-03 09:24 | XMS_ITS | Clinical Summary ---
Author Organization [facility] Address [address] [facility] [place] [address] Care Team Providers Care General Expeditor Name Role Phone North Chapin MD Primary Care Provider [phone] North Chapin MD Unavailable Allergies No known active allergies Medications famotidine (Pepcid) 20 MG tablet Take 20 mg by mouth in the morning and 20 mg before bedtime. Active finasteride (Proscar) 5 MG tablet Take 5 mg by mouth Daily 2 Active glucosamine-jose droitin 500-400 MG tablet Take 1 tablet by mouth in the morning and 1 tablet in the evening. Active tamsulosin (Flomax) 0.4 MG 24 hr capsule Take 0.4 mg by mouth Daily Active ferrous sulfate 325 (65 Fe) MG tablet Take 325 mg by mouth in the morning. Take with meals. Active doxepin (SINEquan) 50 MG capsuleIndicatio ns:Anxiety disorder, unspecified type TAKE 1 CAPSULE AT BEDTIME 90 capsule 3 5 Active rOPINIRole (Requip) 2 MG tabletIndication s:Restless leg syndrome TAKE 1 TABLET AT BEDTIME 90 tablet 3 5 Active dilTIAZem CD (Cartia XT) 240 MG 24 hr capsule 5 Active acetaminophen (Tylenol 8 Hour) 650 MG ER tablet Take 650 mg by mouth every 8 (eight) hours if needed Active rivaroxaban (Xarelto) 20 MG tablet Take 20 mg by mouth 5 04/21/20 26 Active lisinopril 10 MG tablet Take 10 mg by mouth Daily as directed Active Active Problems Problem Noted Date Diagnosed Date Inguinal pain, right 06/30/2025 Assessment & Plan (06/30/2025 8:37 AM EDT): Pain for months and recurrent epididymitis. Concerned of hernia and check US. If normal but still discomfort recommend exam by general surgeon to assess for hernia. H/O epididymitis 06/30/2025 Medicare annual wellness visit, subsequent 03/17 Assessment & Plan (03/29/2025 2:43 PM EDT): Due for labs. Discussed proper diet and regular aerobic exercise. Need aerobic exercise 5-6 days a week for 30 minutes at a time. Smaller portions and limit total calories. Colonoscopy every 10 years. Tetanus every 10 years. Advised not to smoke. Assessment & Plan (03/17/2024 2:51 PM EDT): Due for labs. Discussed proper diet and regular aerobic exercise. Need aerobic exercise 5-6 days a week for 30 minutes at a time. Smaller portions and limit total calories. Colonoscopy every 10 years. Tetanus every 10 years. Advised not to smoke. Discussed daily Aspirin therapy. Encounter for long-term (current) use of medicat ions 03/17/2024 Screening PSA (prostate specific antigen) 2023 Obesity (BMI 30-39.9) 03/17/2024 BPH without urinary obstruction 02/04/2024 Dyslipidemia 02/04/2024 Gastroesophageal reflux disease without esophagi tis 02/04/2024 Insomnia, unspecified 02/04/2024 Obstructive sleep apnea 02/04/2024 Prediabetes 02/04/2024 Primary osteoarthritis of right hip 02/04/2024 Restless legs 02/04/2024 Spondylosis of lumbar region without myelopathy or radiculopathy 02/04/2024 Claustrophobia 02/04/2024 Resolved Problems Problem Noted Date Diagnosed Date Resolved Date Postural dizziness with near syncope 02/04/2024 12/24/2024 SVT (supraventricular tachycardia) 02/04/2024 12/24/2024 Transient global amnesia 02/04/2024 Assessment & Plan (02/04/2024 4:10 PM EDT): Recent episode and resolved. 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 Check MRI to assess for CVA. If CVA will need to start statin and refer to neurology. Continue aspirin. Encounters Date Type Department Care Team Description 07/06/2025 Orders Only [facility] [address] [place] [address] North Chapin MD 07/05/2025 Results Follow-Up [facility] [address] [place] [address] North Chapin MD US scrotum 07/02/2025 Clinisync Result Encounter [facility] External Department Unsolicited North Chapin MD 06/30/2025 7:45 AM EDT Office Visit [facility] [address] [place] [address] North Chapin MD Inguinal pain, right (Primary Dx); H/O epididymitis 06/30/2025 Bamboo flowsheet [facility] [address] [place] [address] North Chapin MD 05/12/2025 1:20 PM EDT Procedure Visit [facility] [address] [place] [address] Miriam Carpenter MD Basal cell carcinoma (BCC) of right forearm (Primary Dx); Basal cell carcinoma of skin of left lower limb, including hip 05/12/2025 Travel 05/05/2025 Results Follow-Up [facility] [address] [place] [address] Miriam Carpenter MD Dermatopathology exam from Last 3 Months Family History Medical History Relation Name Comments Kidney cancer Father Breast cancer Mother Heart disease Mother Skin cancer Sister Melanoma Neg Hx Relation Name Status Comments Father Mother Sister Social History Tobacco Use Types Packs/Day Years Used Date Smoking Tobacco: Never Smokeless Tobacco: Never Tobacco Cessation:Counseling Given: Not Answered Alcohol Use Standard Drinks/Week Comments Not Currently [...] often do you attend chur ch or evangelical services? More than 4 times per year 02/03/2024 Do you belong to any clubs o r organizations such as roman catholic groups, unions, fraternal or athletic groups, or [...] Recorded Patient Health Questionnaire-2 Score 0 03/29/2025 [facility] - [...] place to sleep or slept in a mcc (including now)? No 02/03/2024 Sex and Gender Information Value Date Recorded Sex Assigned at Not on file Legal Sex Male 7:14 PM EDT Gender Identity Not on file Sexual Orientation Not on file Last Filed Vital Signs Vital Sign Reading Time Taken Comments Blood Pressure 148/62 06/30/2025 7:57 AM EDT Pulse 68 06/30/2025 7:57 AM EDT Temperature 36.4 C (97.5 F) 06/30/2025 7:57 AM EDT Respiratory Rate 20 06/30/2025 7:57 AM EDT Oxygen Saturation 95% 06/30/2025 7:57 AM EDT Inhaled Oxygen Concentration - - Weight 113 kg (249 lb) 06/30/2025 7:57 AM EDT Height 188 cm (6' 2 ) 06/30/2025 7:57 AM EDT Body Mass Index 31.97 06/30/2025 7:57 AM EDT Plan of Treatment Upcoming Encounters Date Type Department Care Team (Late st Contact Info) Description 09/28/2025 3:05 PM EST Office Visit [facility] [address] [place] [address] Miriam Carpenter MD [address] [place] [address] Health Maintenance Due Date Last Done Comments CT Colonography 1950 FIT-DNA 1950 FIT 1950 FOBT 1950 Sigmoidoscopy 1950 Influenza Vaccine (#1) 2025 4, 08/22/2023, 09/02/2022, Additional history exists Medicare Annual Wellness (AWV) 03/29/2026 03/29/2025 Colonoscopy 04/09/2033 04/09/2023, 04/09/2023 Colorectal Cancer Screening 04/09/2033 Pneumococcal Vaccine: 65+ Years Completed 1, 08/05/2020 Procedures Procedure Name Priority Date/Time Associated Diagnosis Comments US SCROTUM 07/02/2025 2:53 PM EDT DESTRUCTION OF LESION Routine 05/12/2025 1:03 PM EDT Basal cell carcinoma of skin of left lower limb, including hip DESTRUCTION OF LESION Routine 05/12/2025 1:02 PM EDT Basal cell carcinoma (BCC) of right forearm from Last 3 Months Results * US scrotum (07/02/2025 2:53 PM EDT) Anatomical Region Laterality Modality Body Ultrasound 07/02/2025 2:53 PM EDT Narrative 07/02/2025 2:55 PM EDT The [address] [address] Ultrasound Report Signed Patient: KAVITA AUSTIN MR#: [id number] : 1950 Acct:[id number] Age/Sex: 75 / M ADM Date: 07/02/25 Loc: US Attending Dr: North Chapin M.D. Ordering Physician: North Chapin M.D. Date of Service: 07/02/25 Procedure(s): US scrotum Accession Number(s): [id number] cc: North Chapin M.D. The [place] [id number] Patient Name: KAVITA AUSTIN MRN: [id number] date: 1950 Sex: M Assigned Patient Location: US Current Patient Location: US Accession/Order Number: [id number] Exam Date: 07/02/2025 14:51 Report Date: 07/02/2025 [...] Jr., D.O. 07/02/2025 2:53 PM Dictation Location: [place] [address] Electronically authenticated by: [id number] Y Date: 07/02/2025 14:53 Dictated By: Tariq Lozada M.D. Signed By: 07/02/25 1455 DD/ 145 TD/TT: Auto Machinist: Procedure Note Radiology, Radiologist, MD - 07/02/[address] [address] Ultrasound Report Signed Patient: KAVITA AUSTIN AMR#: [id number] : 1950cct:[id number] Age/Sex: 75 / MADM Date: 07/02/25 Loc: US Attending Dr: North Chapin M.D. Ordering Physician: North Chapin M.D. Date of Service: 07/02/25 Procedure(s): US scrotum Accession Number(s): [id number] cc: North Chapin M.D. [place] [address] Patient Name: KAVITA AUSTIN MRN: [facility]:[id number] date: 1950 Sex: M Assigned Patient Location: US Current Patient Location: US Accession/Order Number: [id number] Exam Date: 07/02/2025 14:51 Report Date: 07/02/2025 14:53 At the request of: NORTH CHAPIN MD Procedure: US scrotum Scrotal ultrasound Reason for exam: Right testicular pain for 6 months. Comparison: none Technique: Grayscale, color Doppler and spectral Doppler images of thescrotal contents were obtained. Findings: Right testicle measures 4.8 x 2.4 x 3.5 cm. No evidence of testicularmass or microlithiasis. Normal arterial and venous Doppler waveforms. 4 mm epididymal cyst.. Small hydrocele. Right-sided varicocele. Left testicle measures 4.8 x 2.3 x 3.3 cm. No evidence of significantmass or microlithiasis. Normal arterial and venous Doppler waveforms. Epididymal cyst measuring 8 mm. Small hydrocele. Left-sided varicocele. US/US scrotum Impression: No evidence of testicular mass, torsion, orchitis or epididymitis. Bilateral varicoceles. Small bilateral hydroceles. Impression dictated by: Tariq Lozada Jr., D.O. 07/02/2025 2:53 PM Dictation Location: [place] [address] Electronically authenticated by: [id number] Y Date: 4:53 Dictated By: Tariq Lozada M.D. Signed By:07/02/25 1455 DD/ 1453 TD/TT: Auto Machinist: North Chapin MD IMG US PROCEDURES Final Result * Destr of lesion (05/12/2025 1:03 PM EDT) Narrative Jatinder BATSHEVA Bermudez - 05/12/2025 1:03 PM EDT Complexity: simple Destruction method: electrodesiccation and curettage Informed consent: discussed and consent obtained Informed consent comment: The risks of the procedure were discussed, including, but not limited to risks of scarring, darker or meter and service line inspector pigmentary changes, recurrence, infection, and incomplete removal [...] lidocaine used: 2.0 cc Previous accession number: [id number] Miriam Carpenter MD DERM PROCEDURE ORDERABLES [facility] al Result * Destr of lesion (05/12/2025 1:02 PM EDT) Narrative Lara Tobias LPN - 05/12/2025 1:02 PM EDT Complexity: simple Destruction method: electrodesiccation and curettage Informed consent: discussed and consent obtained Informed consent comment: The risks of the procedure were discussed, including, but not limited to risks of scarring, darker or meter and service line inspector pigmentary changes, recurrence, infection, and incomplete removal [...] lidocaine used: 2.0 cc Previous accession number: [id number] us Miriam Carpenter MD DERM PROCEDURE ORDERABLES Fin al Result from Last 3 Months Insurance [employer] MEDICARE ADVANTAGE Care Teams General Expeditor Relationship Specialty Start Date End Date North Chapin MD PCP - General Family Medicine 02/04/24 North Chapin MD [address] [place] [address] [facility] - Aetghislaine 02/24/24
--- OUTSIDE RECORDS SUMMARY | 2025-08-03 09:25 | XMS_ITS | Clinical Summary ---
Author Organization [facility] Address [id number] [address] [place] [address] Care Team Providers Care Industrial Custodian Name Role Phone North Gomes MD Primary Care Provider [phone] Allergies No known active allergies Medications glucosamine-ch ondroitin 500-400 mg tablet Take 1 tablet by mouth in the morning and 1 tablet before bedtime. Active tamsulosin (FLOMAX) 0.4 mg capsule,extend ed release 24hr Take 1 capsule (0.4 mg total) by mouth nightly. Active rOPINIRole (REQUIP) 2 mg tablet Take 1 tablet (2 mg total) by mouth nightly. Active DAILY MULTI-VITAMIN ORAL Take 1 tablet by mouth in the morning. Active finasteride (PROSCAR) 5 mg tablet 06/17/20 18 Active DILT-XR 180 mg 24 hr capsule Take 1 capsule (180 mg total) by mouth in the morning. 06/10/20 18 Active doxepin (SINEquan) 50 mg capsule Take 1 capsule (50 mg total) by mouth nightly. 08/23/20 20 Active famotidine (PEPCID) 20 mg tablet Take 1 tablet (20 mg total) by mouth in the morning and 1 tablet (20 mg total) before bedtime. Active rivaroxaban (XARELTO) 20 mg tablet tablet Take 1 tablet (20 mg total) by mouth in the morning. Active acetaminophen (TYLENOL ARTHRITIS) 650 mg 8 hr tablet Take 1 tablet (650 mg total) by mouth every 8 (eight) hours as needed for pain. Active ferrous sulfate 325 (65 FE) MG tablet Take 1 tablet (325 mg total) by mouth in the morning. Active lisinopriL (PRINIVIL,ZEST RIL) 10 mg tablet Take 1 tablet (10 mg total) by mouth in the morning. Active aspirin 325 mg tablet Take 1 tablet (325 mg total) by mouth in the morning. 025 Discontinued omeprazole (PriLOSEC) 40 mg capsule take 1 capsule by mouth every morning PRIOR TO BREAKFAST 09/21/20 025 Discontinued(Th erapy completed) Active Problems Problem Noted Date Diagnosed Date Ischial bursitis of left side 07/30/2023 Primary osteoarthritis of left hip 01/29/2023 Overview (01/29/2023): Added automatically from request for surgery [id number] Lumbosacral spondylosis without myelopathy 07/28 Overview (07/28/2020): Added automatically from request for surgery [id number] Afib 07/10/2017 BPH (benign prostatic hyperplasia) 07/10/2017 Restless leg syndrome 07/10/2017 Sleep apnea 07/10/2017 Overview (07/10/2017): instructed to bring CPAP to hospital Degenerative joint disease of pelvic region 03/25 Resolved Problems Problem Noted Date Diagnosed Date Resolved Date Primary osteoarthritis of right hip 04/23/2017 07/11/2017 Encounters Date Type Department Care Team Description 07/14/2025 10:15 AM EDT Office Visit [facility] [address] [place] [address] Ventura Watson DO Chronic epididymitis (Primary Dx) 07/14/2025 Travel 07/02/2025 1:50 PM EDT Ancillary Procedure [facility] [employer] [address] [place] [address] Pain from Last 3 Months Family History Medical History Relation Name Comments Cancer Father Arthritis Mother Shanell Asthma Mother Shanell Breast cancer Mother Shanell Cancer Mother Shanell Heart disease Mother Shanell Anesthesia problems Neg Hx Relation Name Status Comments Father Mother Shanell Alive Social History Tobacco Use Types Packs/Day Years Used Date Smoking Tobacco: Never Smokeless Tobacco: Never Tobacco Cessation:Counseling Given: Not Answered Alcohol Use Standard Drinks/Week Comments Yes 0 (1 standard drink = 0.6 oz pur e alcohol) One drink per week Childcare Answer Date Recorded Childcare Unknown 05/06/2019 Employment Answer Date Recorded Employment Unknown 05/06/2019 Hunger Screening Answer Date Recorded Within the past 12 months we worried whether our food would run out before we got money to buy more. Never True 10/07/2024 Within the past 12 months th e food we bought just didn't last and we didn't have money to get more. Never True 10/07/2024 Purpose - Life Answer Date Recorded Purpose and direction in life Unknown Sex and Gender Information Value Date Recorded Sex Assigned at Male 10/11/2020 1:17 PM EST Legal Sex Male 11:47 AM EDT Gender Identity Male 10/11/2020 1:17 PM EST Sexual Orientation Straight 10/11/2020 1: 17 PM EST Last Filed Vital Signs Vital Sign Reading Time Taken Comments Blood Pressure 133/68 10/07/2024 1:39 PM EST Pulse 66 10/07/2024 1:39 PM EST Temperature 35.8 C (96.4 F) 08/16/2023 8:18 AM EDT Respiratory Rate 20 08/27/2023 9:01 AM EDT Oxygen Saturation 94% 10/07/2024 1:39 PM EST Inhaled Oxygen Concentration - - Weight 110.7 kg (244 lb) 07/14/2025 10:16 AM EDT Height 188 cm (6' 2 ) 07/14/2025 10:16 AM EDT Body Mass Index 31.33 07/14/2025 10:16 AM EDT Plan of Treatment Health Maintenance Due Date Last Done Comments Colonoscopy 1950 Depression Screening 1964 Adult BMI Follow Up Plan 1970 Fall Risk Screening 2017 COVID-19 Vaccine (2023- 5 season) 2024 10/05/2021, 03/22/2021, 03/01/2021 Influenza Vaccine 07/26/2025 08/09/2024, , 09/02/2022, Additional history exists Adult BMI Screening 07/14/2026 07/14/2025 Tobacco Screening 07/14/2026 07/14/2025 DTaP,Tdap and Td Vaccines (2 - Tdap) 12/06/2032 12/06/2022 Zoster (Shingles) Vaccine Completed 07/08/2018, 11/2017 Goals Goal Patient Goal Type Associated Problems Recent Progress Patient-Stated? Author Improve mobility General Yes Poly Burgos, RN Note: Evaluation of progress towards goal: Maximize work with PT at discharge to strengthen R hip Medical Devices Implanted Type Area Technical Marketing Consultant Device Identifier Shelf Expiration Date Model / Serial / Lot Mesh Brd Perfix Plug Med Rpl 72043 Rpl [id number] - [id number] - [id number] Implanted:Qt y: 1 on 09/23/2018 by Ventura Watson DO at [facility] Mesh N/A: Groin DAVOL 12/24/2019 [id number] / [id number] / [id number] Mesh Brd Preshape Hawkins 3x5 Rpl [id number] - [id number] - [id number] Implanted:Qt y: 1 on 09/23/2018 by Ventura Watson DO at [facility] Mesh N/A: Umbilical DAVOL 03/24/2021 [id number] / [id number] / [id number] Description:13.7 cm x 5.9 cm cut to fit defect Linr Actb 36mm F Ntrl E1 Clr - [id number] Implanted:Qt y: 1 on 07/10/2017 by Schuyler Ambrocio MD at [facility] Orthopedic Implant Right: Hip Biomet 04/27/2022 [id number] / / [id number] Hd Fem 36mm Opt G7 Blx D Hip Rpl 650-5103 - [id number] Implanted:Qt y: 1 on 07/10/2017 by Schuyler Ambrocio MD at [facility] Orthopedic Implant Right: Hip Biomet 12/20/2026 [id number] / / [id number] Slv Fem Opt +3mm Tpr Hip Blx D Rpl 650-5646 - [id number] Implanted:Qt y: 1 on 07/10/2017 by Schuyler Ambrocio MD at [facility] Orthopedic Implant Right: Hip Biomet 05/02/2027 [id number] / / [id number] Stm Fem 125mm 133d 20 Hi Os - [id number] Implanted:Qt y: 1 on 07/10/2017 by Schuyler Ambrocio MD at [facility] Orthopedic Implant Right: Hip Biomet 12/03/2026 [id number] / / [id number] Loop Recorder Shell Implanted:Qt y: 1 on 07/10/2017 by Schuyler Ambrocio MD at [facility] Right: Hip 01/02/2027 [id number] / / [id number] Explanted Type Area Technical Marketing Consultant Device Identifier Shelf Expiration Date Model / Serial / Lot [facility] Fem 119mm 133d 17 Hi Os - [id number] Implanted:Qty : 1 Explanted:Qty : 1 on 07/10/2017 at [facility] Orthopedic Implant Right: Hip Biomet 08/16/2026 [id number] / / [id number] Procedures Procedure Name Priority Date/Time Associated Diagnosis Comments US SCROTUM Routine 07/02/2025 1:50 PM EDT Pain from Last 3 Months Results * Ultrasound scrotum (07/02/2025 1:50 PM EDT) us Scanning Provider External IMG US ORDERABLES Fin al Result from Last 3 Months Insurance [employer] MEDICARE Care Teams Industrial Custodian Relationship Specialty Start Date End Date North Gomes MD PCP - General Family Medicine 10/07/24
--- OUTSIDE RECORDS SUMMARY | 2025-08-03 09:25 | XMS_ITS | Encounter Summary ---
Author Organization [facility] Address [address] [place] [address] Care Team Providers Care Hairspring Inspector Name Role Phone North Gomes MD Primary Care Provider [phone] Encounter Details Date Type Department Care Team (Late st Contact Info) Description 03/20/2025 Orders Only [facility] Cardiology Clinic [address] [place] [address] Tiago Wilburn MD [address] [place] [address] Social History Tobacco Use Types Packs/Day Years [...] PM EDT documented as of this encounter Plan of Treatment Not on file documented as of this encounter Procedures Procedure Name Priority Date/Time Associated Diagnosis Comments CARDIAC DEVICE CHECK - REMOTE ALERT - LOOP RECORDER (ILR) Routine 03/20/2025 12:00 AM EDT documented in this encounter Results * Cardiac device check - Remote alert loop recorder (ILR) (03/20/2025 12:00 AM EDT) Anatomical Region Laterality Modality Other 03/20/2025 Tiago Wilburn MD CV IMPLANTABLE CARDIAC DEVICE MT OCEDURES Final Result documented in this encounter Visit Diagnoses Not on filedocumented in this encounter Care Teams Hairspring Inspector Relationship Specialty Start Date End Date North Gomes MD [address] [place] [address] PCP - General 12/05/22 documented as of this encounter
--- OUTSIDE RECORDS SUMMARY | 2025-08-03 09:25 | XMS_ITS | Encounter Summary ---
Author Organization [facility] Address [address] [place] [address] Care Team Providers Care Roof Bolter Helper Name Role Phone North Gomes MD Primary Care Provider [phone] North Gomes MD Primary Care Provider [phone] North Gomes MD Unavailable Encounter Details Date Type Department Care Team (Late st Contact Info) Description 11/12/2023 Clinisync Result Encounter [facility] External Department Unsolicited Provider, Generic External Data Social History Tobacco Use Types Packs/Day Years Used Date Smoking Tobacco: Never Smokeless Tobacco: Never Alcohol Use Standard Drinks/Week Comments Not Currently 0 (1 standard drink = 0.6 oz pur e alcohol) caffeine 1-2 cups per day Sex and Gender Information Value Date Recorded Sex Assigned at Not on file Legal Sex Male 7:14 PM EDT Gender Identity Not on file Sexual Orientation Not on file documented as of this encounter Plan of Treatment Upcoming Encounters Date Type Department Care Team (Late st Contact Info) Description 09/28/2025 3:05 PM EST Office Visit [facility] [address] [facility] [address] [place] [address] Miriam Carpenter MD [address] [facility] [address] [place] [address] documented as of this encounter Procedures Procedure Name Priority Date/Time Associated Diagnosis Comments XR FOOT LT MIN 3V 11/12/2023 11: 05 AM EST documented in this encounter Results * XR FOOT LT MIN 3V (11/12/2023 11:05 AM EST) Anatomical Region Laterality Modality Other 11/12/2023 11:0 5 AM EST Narrative 11/12/2023 11:08 [place] [address] XRay Report Signed Patient: KAVITA AUSTIN MR#: [id number] : 1950 Acct:[id number] Age/Sex: 73 / M ADM Date: 11/11/23 Loc: SURGOUT Attending Dr: Alexis Alcala D.P.M. Ordering Physician: Rafi Evans D.P.M. Date of Service: 11/11/23 Procedure(s): XR foot LT min 3V Accession Number(s): [id number] cc: Rafi Evans D.P.M.; North Gomes M.D. The [place] [address] Patient Name: KAVITA AUSTIN MRN: [id number] date: 1950 Sex: M Assigned Patient Location: [facility] Current Patient Location: [facility] Accession/Order Number: [id number] Exam Date: 11/11/2023 15:05 Report Date: 11/12/2023 11:05 At the request of: ARFI EVANS Procedure: XR foot LT min 3V EXAM: XR foot LT min 3V HISTORY: postop xr pacu COMPARISON: 10/08/2023 10/11/2023. TECHNIQUE: Routine views of the XR foot LT min 3V FINDINGS/ XR/XR foot LT min 3V IMPRESSION: 1. No acute fractures. Irregular transverse lucency across the base of the first metatarsal most likely artifact. 2. Unremarkable soft tissues. 3. Revision first MTP arthrodesis. Maintained alignment. No evidence for hardware complication. Electronically authenticated by: SALOME ESPINOSA Date: 11/12/2023 11:05 Dictated By: Salome Espinosa Signed By: 11/12/23 1108 DD/ 04 TD/TT: Loan Workout Officer: Procedure Note Radiology, Radiologist, MD - 11/12/2023 The [place] [id number] XRay Report Signed Patient: KAVITA AUSTIN AMR#: [id number] : 1950cct:[id number] Age/Sex: 73 / MADM Date: 11/11/23 Loc: SURGOUT Attending Dr: Alexis Alcala D.P.M. Ordering Physician: Rafi Evans D.P.M. Date of Service: 11/11/23 Procedure(s): XR foot LT min 3V Accession Number(s): [id number] cc: Rafi Evans D.P.M.; North Gomes M.D. The [address] [address] Patient Name: KAVITA AUSTIN MRN: [facility]:[id number] date: 1950 Sex: M Assigned Patient Location: [facility] Current Patient Location: [facility] Accession/Order Number: [id number] Exam Date: 11/11/2023 15:05 Report Date: 11/12/2023 11:05 At the request of: RAFI EVANS Procedure: XR foot LT min 3V EXAM: XR foot LT min 3V HISTORY: postop xr pacu COMPARISON: 10/08/2023 10/11/2023. TECHNIQUE: Routine views of the XR foot LT min 3V FINDINGS/ XR/XR foot LT min 3V IMPRESSION: 1. No acute fractures. Irregular transverse lucency across the base of the first metatarsal most likely artifact. 2. Unremarkable soft tissues. 3. Revision first MTP arthrodesis. Maintained alignment. No evidence for hardware complication. Electronically authenticated by: SALOME ESPINOSA Date: 11/12/2023 11:05 Dictated By: Salome Espinosa Signed By:11/12/231107 DD/ 04 TD/TT: Loan Workout Officer: us Generic External Data Provider [facility] Final Result documented in this encounter Visit Diagnoses Not on filedocumented in this encounter Care Teams Roof Bolter Helper Relationship Specialty Start Date End Date North Gomes MD PCP - General Family Medicine 08/25/23 02/03/24 North Gomes MD PCP - General Family Medicine 02/04/24 North Gomes MD [address] [place] [address] PCP - [employer] 02/24/24 documented as of this encounter
--- OUTSIDE RECORDS SUMMARY | 2025-08-03 09:25 | XMS_ITS | Encounter Summary ---
Author Organization [facility] Address [address] [place] [address] Care Team Providers Care Lab Clerk Name Role Phone North Gomes MD Primary Care Provider [phone] Reason for Visit * Reason Comments Med Change Request Encounter Details Date Type Department Care Team (Late st Contact Info) Description 03/05/2024 Refill [facility] [address] [place] [address] Tiago Wilburn MD [address] [place] [address] SVT (supraventricular tachycardia) Social History Tobacco Use Types Packs/Day Years [...] on file documented as of this encounter Visit Diagnoses Diagnosis SVT (supraventricular tachycardia) Other specified cardiac dysrhythmias documented in this encounter Care Teams Lab Clerk Relationship Specialty Start Date End Date North Gomes MD [address] [place] [address] PCP - General 12/05/22 documented as of this encounter
--- OUTSIDE RECORDS SUMMARY | 2025-08-03 09:25 | XMS_ITS | Encounter Summary ---
Author Organization [facility] Address [address] [place] [address] Care Team Providers Care Varnish Supervisor Name Role Phone North Gomes MD Primary Care Provider [phone] North Gomes MD Primary Care Provider [phone] North Gomes MD Unavailable Encounter Details Date [...] Office Visit [facility] [address] [facility] [address] [place] [address] Miriam Carpenter MD [address] [facility] [address] [place] [address] documented as of this encounter Procedures Procedure Name Priority Date/Time Associated Diagnosis Comments FLUOROSCOPY UP TO 1 HOUR 11/12/2023 8:21 AM EST documented in this encounter Results * FLUOROSCOPY UP TO 1 HOUR (11/12/2023 8:21 AM EST) Anatomical Region Laterality Modality Radiographic Giulia ging 11/12/2023 8:21 AM EST Narrative 11/12/2023 8:24 [place] [address] Fluoroscopy Report Signed Patient: KAVITA AUSTIN MR#: [id number] : 1950 Acct:[id number] Age/Sex: 73 / M ADM Date: 11/11/23 Loc: SURGOUT Attending Dr: Barbie Alcala D.P.M. Ordering Physician: Barbie Alcala D.P.M. Date of Service: 11/11/23 Procedure(s): FL fluoroscopy <1hr NON-READ Accession Number(s): [id number] cc: Barbie Alcala D.P.M.; North Gomes M.D. The [place] [address] Patient Name: KAVITA AUSTIN MRN: [id number] date: 1950 Sex: M Assigned Patient Location: [facility] Current Patient Location: Accession/Order Number: [id number] Exam Date: 11/11/2023 14:36 Report Date: 11/12/2023 08:21 At the request of: BARBIE ALCALA Procedure: FL fluoroscopy <1hr NON-READ EXAM: FL fluoroscopy <1hr NON-READ HISTORY: LEFT FOOT PAIN TECHNIQUE: FINDINGS: Please see Operative Report. Electronically authenticated by: LUIS PEREZ Date: 11/12/2023 08:21 Dictated By: Luis Perez Signed By: 11/12/23823 DD/ 0 TD/TT: Edge Inker Heels: Procedure Note Radiology, MD Luis - 11/12/2023 The [place] [id number] Fluoroscopy Report Signed Patient: KAVITA AUSTIN AMR#: [id number] : 1950cct:[id number] Age/Sex: 73 / MADM Date: 11/11/23 Loc: SURGOUT Attending Dr: Barbie Alcala D.P.M. Ordering Physician: Barbie Alcala D.P.M. Date of Service: 11/11/23 Procedure(s): FL fluoroscopy <1hr NON-READ Accession Number(s): [id number] cc: Barbie Alcala D.P.M.; North Gomes M.D. [place] [id number] Patient Name: KAVITA AUSTIN MRN: [id number] date: 1950 Sex: M Assigned Patient [facility] Current Patient Location: Accession/Order Number: [id number] Exam Date: 11/11/2023 14:36 Report Date: 11/12/2023 08:21 At the request of: BARBIE ALCALA Procedure: FL fluoroscopy <1hr NON-READ EXAM: FL fluoroscopy <1hr NON-READ HISTORY: LEFT FOOT PAIN TECHNIQUE: FINDINGS: Please see Operative Report. Electronically authenticated by: RADIOLOGIST ANA Date: 11/12/2023 08:21 Dictated By: AnaRadiologist Signed By:11/12/23823 DD/ 0 TD/TT: Edge Inker Heels: us Generic External Data Provider IMG XR PROCEDURES Final Result documented in this encounter Visit Diagnoses Not on filedocumented in this encounter Care Teams Varnish Supervisor Relationship Specialty Start Date End Date North Gomes MD PCP - General Family Medicine 08/25/23 02/03/24 North Gomes MD PCP - General Family Medicine 02/04/24 North Gomes MD [address] [place] [address] PCP - [employer] 02/24/24 documented as of this encounter
--- OUTSIDE RECORDS SUMMARY | 2025-08-03 09:25 | XMS_ITS | Encounter Summary ---
Author Organization [facility] Address [address] [facility] [place] [address] Care Team Providers Care Oracle Soa Consultant Name Role Phone North Gomes MD Primary Care Provider [phone] North Gomes MD Unavailable Encounter Details Date Type Department Care Team (Late st Contact Info) Description 02/08/2024 Clinisync Result Encounter [facility] External Department Unsolicited [...] often do you attend chur ch or zoroastrianism services? More than 4 times per year 02/03/2024 Do you belong to any clubs o r organizations such as advent groups, unions, fraternal or athletic groups, or [...] and heating? Not hard at all 02/03/2024 [facility] of Occupat ional Health - Occupational Stress [...] place to sleep or slept in a half-way (including now)? No 02/03/2024 Sex and Gender [...] Dermatology [address] [place] [address] Miriam Carpenter MD [address] [place] [address] documented as of this encounter Procedures Procedure Name Priority Date/Time Associated Diagnosis Comments XR FOOT LT MIN 3V 02/08/2024 8:4 6 AM EDT documented in this encounter Results * XR FOOT LT MIN 3V (02/08/2024 8:46 AM EDT) Anatomical Region Laterality Modality Other 02/08/2024 8:46 AM EDT Narrative 02/08/2024 8:49 AM EDT [address] [address] XRay Report Signed Patient: KAVITA AUSTIN MR#: [id number] : 1950 Acct:[id number] Age/Sex: 73 / M ADM Date: 02/06/24 Loc: EC Attending Dr: Modesto Roche Ordering Physician: Modesto Roche Date of Service: 02/06/24 Procedure(s): XR foot LT min 3V Accession Number(s): [id number] cc: Modesto Roche; North Gomes M.D. The [address] [address] Patient Name: KAVITA AUSTIN MRN: [id number] date: 1950 Sex: M Assigned Patient Location: EC Current Patient Location: LAB Accession/Order Number: [id number] Exam Date: 02/06/2024 09:55 Report Date: 02/08/2024 08:46 At the request of: MODESTO ROCHE Procedure: XR foot LT min 3V PROCEDURE: XR foot LT min 3V HISTORY: LEFT FOOT PAIN COMPARISON: XR foot left 12/24/2023 FINDINGS: BONES:Mechanical fusion of the first metatarsophalangeal joint via dorsal plate and screws. Osteotomy and repair of second metatarsal head. Resection of head of second digit proximal phalanx. SOFT TISSUES:No visible soft tissue swelling. EFFUSION:None visible. OTHER: Negative. XR/XR foot LT min 3V IMPRESSION: 1. Stable surgical changes without evidence of hardware failure or change in alignment. 2. No acute bone abnormality. Electronically authenticated by: LEONARD TOLEDO Date: 02/08/2024 08:46 Dictated By: Leonard Toledo M.D. Signed By: 02/08/2449 DD/ TD/TT: Airport Tower Controller: Procedure Note Radiology, Radiologist, - 02/08/2024 [place] [address] XRay Report Signed Patient: KAVITA AUSTIN AMR#: [id number] : 1950cct:[id number] Age/Sex: 73 / MADM Date: 02/06/24 Loc: EC Attending Dr: Modesto Roche Ordering Physician: Modesto Roche Date of Service: 02/06/24 Procedure(s): XR foot LT min 3V Accession Number(s): [id number] cc: Modesto Roche; North Gomes M.D. The [place] [id number] Patient Name: KAVITA AUSTIN MRN: [id number] date: 1950 Sex: M Assigned Patient Location: Current Patient Location: LAB Accession/Order Number: [id number] Exam Date: 02/06/2024 09:55 Report Date: 02/08/2024 08:46 At the request of: MODESTO ROCHE Procedure: XR foot LT min 3V PROCEDURE: XR foot LT min 3V HISTORY: LEFT FOOT PAIN COMPARISON: XR foot left 12/24/2023 FINDINGS: BONES:Mechanical fusion of the first metatarsophalangeal joint via dorsal plate and screws. Osteotomy and repair of second metatarsal head. Resection ofhead of second digit proximal phalanx. SOFT TISSUES:No visible soft tissue swelling. EFFUSION:None visible. OTHER: Negative. XR/XR foot LT min 3V IMPRESSION: 1. Stable surgical changes without evidence of hardware failure or changein alignment. 2. No acute bone abnormality. Electronically authenticated by: LEONARD TOLEDO Date: 02/08/2024 08:46 Dictated By: Leonard Toledo M.D. Signed By:02/08/2449 DD/ TD/TT: Airport Tower Controller: us Generic External Data Provider [facility] Final Result documented in this encounter Visit Diagnoses Not on filedocumented in this encounter Care Teams Oracle Soa Consultant Relationship Specialty Start Date End Date North Gomes MD PCP - General Family Medicine 02/04/24 North Gomes MD [address] [place] [address] PCP - [employer] 02/24/24 documented as of this encounter
--- OUTSIDE RECORDS SUMMARY | 2025-08-03 09:25 | XMS_ITS | Encounter Summary ---
Author Organization [facility] Address [address] [place] [address] Care Team Providers Care Team Physician Name Role Phone North Gomes MD Primary Care Provider [phone] Encounter Details Date Type Department Care Team (Late st Contact Info) Description 06/02/2025 Orders Only [facility] Cardiology Clinic [address] [place] [address] Carmencita Tse MD [address] [place] [address] Social History Tobacco Use Types [...] Diagnosis Comments CARDIAC DEVICE CHECK - REMOTE - LOOP RECORDER (ILR) Routine 06/02/2025 12:00 AM EDT documented in this encounter Results * Cardiac device check - Remote loop recorder (ILR) (06/02/2025 12:00 AM EDT) Anatomical Region Laterality Modality Other 06/02/2025 Carmencita Tse MD CV IMPLANTABLE CARDIAC DEVICE PROCEDURES Final Result documented in this encounter Visit Diagnoses Not on filedocumented in this encounter Care Teams Team Physician Relationship Specialty Start Date End Date North Gomes MD [address] [place] [address] PCP - General 12/05/22 documented as of this encounter
--- OUTSIDE RECORDS SUMMARY | 2025-08-03 09:25 | XMS_ITS | Encounter Summary ---
Author Organization [facility] Address [address] [facility] [place] [address] Care Team Providers Care Textiles Printer Name Role Phone Jennifer Chapin MD Primary Care Provider [phone] Jennifer Chapin MD Unavailable Encounter Details Date Type Department Care Team (Late st Contact Info) Description 03/03/2024 Clinisync Result Encounter [facility] External Department Unsolicited Jennifer Chapin MD [address] [place] [address] Social History Tobacco Use Types Packs/Day Years [...] often do you attend chur ch or caodaism services? More than 4 times per year 02/03/2024 Do you belong to any clubs o r organizations such as restorationism groups, unions, fraternal or athletic groups, or [...] and heating? Not hard at all 02/03/2024 [facility] of Occupat ional Health - Occupational Stress [...] place to sleep or slept in a prison (including now)? No 02/03/2024 Sex and Gender [...] Dermatology [address] [place] [address] Miriam Carpenter MD [address] [place] [address] documented as of this encounter Procedures Procedure Name Priority Date/Time Associated Diagnosis Comments MR HEAD/BRAIN WO CON 03/03/2024 1:02 PM EDT documented in this encounter Results * MR HEAD/BRAIN WO CON (03/03/2024 1:02 PM EDT) Anatomical Region Laterality Modality Other 03/03/2024 1:02 PM EDT Narrative 03/03/2024 1:05 PM EDT [address] [address] Magnetic Resonance Report Signed Patient: KAVITA AUSTIN MR#: [id number] : 1950 Acct:[id number] Age/Sex: 73 / M ADM Date: 03/03/24 Loc: MRI Attending Dr: Jennifer Chapin M.D. Ordering Physician: Jennifer Chapin M.D. Date of Service: 03/03/24 Procedure(s): MR head/brain wo con Accession Number(s): [id number] cc: Jennifer Chapin M.D. 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 TECHNIQUE: Multi-planar, multi-sequence brain MRI was performed without IV contrast. FINDINGS: Brain volume: Normal. Sagittal midline structures: Normal. Ventricles: Normal. Acute ischemic changes: None. Hemorrhage: None. Masses/edema: None. Griffin-white: Negative. White matter: Normal. Vessels: Normal. Extra-axial: None. Calvarium/scalp: Negative. Skull base: Negative. Visualized sinuses/orbits: Negative. Visualized upper neck: Negative. MR/MR head/brain wo con IMPRESSION: 1. No evidence of acute ischemia or neurodegenerative disease Electronically authenticated by: TARIQ NOYOLA Date: 03/03/2024 13:02 Dictated By: Tariq Noyola M.D. Signed By: 03/03/24 1305 DD/ 1302 TD/TT: Dot Net Developer: Procedure Note Radiology, Radiologist, MD - 03/03/2024 [place] [address] Magnetic Resonance Report Signed Patient: KAVITA AUSTIN AMR#: [id number] : 1950cct:[id number] Age/Sex: 73 / MADM Date: 03/03/24 Loc: MRI Attending Dr: Jennifer Chapin M.D. Ordering Physician: Jennifer Chapin M.D. Date of Service: 03/03/24 Procedure(s): MR head/brain wo con Accession Number(s): [id number] cc: Jennifer Chapin M.D. 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 TECHNIQUE: Multi-planar, multi-sequence brain MRI was performed without IV contrast. FINDINGS: Brain volume: Normal. Sagittal midline structures: Normal. Ventricles: Normal. Acute ischemic changes: None. Hemorrhage: None. Masses/edema: None. Griffin-white: Negative. White matter: Normal. Vessels: Normal. Extra-axial: None. Calvarium/scalp: Negative. Skull base: Negative. Visualized sinuses/orbits: Negative. Visualized upper neck: Negative. MR/MR head/brain wo con IMPRESSION: 1. No evidence of acute ischemia or neurodegenerative disease Electronically authenticated by: TARIQ NOYOLA Date: 03/03/2024 13:02 Dictated By: Tariq Noyloa M.D. Signed By:03/03/24 1305 DD/ 1302 TD/TT: Dot Net Developer: Jennifer Chapin MD [facility] Final Result documented in this encounter Visit Diagnoses Not on filedocumented in this encounter Care Teams Textiles Printer Relationship Specialty Start Date End Date Jennifer Chapin MD PCP - General Family Medicine 02/04/24 Jennifer Chapin MD [address] [place] [address] PCP - [employer] 02/24/24 documented as of this encounter
--- OUTSIDE RECORDS SUMMARY | 2025-08-03 09:25 | XMS_ITS | Clinical Summary ---
Author Organization [facility] Address [address] [place], [place] [address] Care Team Providers Care Atm Manager Name Role Phone Unavailable Primary Care Provider Unavailabl e Social History Tobacco Use Types Packs/Day Years Used Date Smoking Tobacco: Never Assessed Sex and Gender Information Value Date Recorded Sex Assigned at Not on file Legal Sex Male 9:48 AM EST Gender Identity Not on file Sexual Orientation Not on file Plan of Treatment Not on file [facility]
--- OUTSIDE RECORDS SUMMARY | 2025-08-03 09:25 | XMS_ITS | Encounter Summary ---
Author Organization [facility] Address [address] [place] [address] Care Team Providers Care Director Cost Name Role Phone North Gomes MD Primary Care Provider [phone] Encounter Details Date Type Department Care Team (Late st Contact Info) Description 05/01/2025 Orders Only [facility] Cardiology Clinic [address] [place] [address] Tiago iWlburn MD [address] [place] [address] Social History Tobacco Use Types [...] - REMOTE - LOOP RECORDER (ILR) Routine 05/01/2025 12:00 AM EDT documented in this encounter Results * Cardiac device check - Remote loop recorder (ILR) (05/01/2025 12:00 AM EDT) Anatomical Region Laterality Modality Other 05/01/2025 us Tiago Wilburn MD CV IMPLANTABLE CARDIAC DEVICE DE OCEDURES Final Result documented in this encounter Visit Diagnoses Not on filedocumented in this encounter Care Teams Director Cost Relationship Specialty Start Date End Date North Gomes MD [address] [place] [address] PCP - General 12/05/22 documented as of this encounter
--- OUTSIDE RECORDS SUMMARY | 2025-08-03 09:25 | XMS_ITS | Encounter Summary ---
Author Organization [facility] Address [address] [place] [address] Care Team Providers Care Automatic Thread Winder Name Role Phone North Gomes MD Primary Care Provider [phone] North Gomes MD Primary Care Provider [phone] North Gomes MD Unavailable Encounter Details Date Type Department Care Team (Late st Contact Info) Description 12/24/2023 Clinisync Result Encounter [facility] External Department Unsolicited [...] Office Visit [facility] [address] [facility] [address] [place] [address] Miriam Carpenter MD [address] [facility] [address] [place] [address] documented as of this encounter Procedures Procedure Name Priority Date/Time Associated Diagnosis Comments XR FOOT LT MIN 3V 12/24/2023 11: 19 AM EST documented in this encounter Results * XR FOOT LT MIN 3V (12/24/2023 11:19 AM EST) Anatomical Region Laterality Modality Other 12/24/2023 11:1 9 AM EST Narrative 12/24/2023 11:22 AM [place] [address] XRay Report Signed Patient: KAVITA AUSTIN MR#: [id number] : 1950 Acct:[id number] Age/Sex: 73 / M ADM Date: 12/24/23 Loc: RAD Attending Dr: Barbie Alcala D.P.M. Ordering Physician: Barbie Alcala D.P.M. Date of Service: 12/24/23 Procedure(s): XR foot LT min 3V Accession Number(s): [id number] cc: Barbie Alcala D.P.M.; North Gomes M.D. [place] [address] Patient Name: KAVITA AUSTIN MRN: [id number] date: 1950 Sex: M Assigned Patient Location: [facility] Current Patient Location: [facility] Accession/Order Number: [id number] Exam Date: 12/24/2023 09:26 Report Date: 12/24/2023 11:19 At the request of: BARBIE ALCALA Procedure: XR foot LT min 3V PROCEDURE: XR foot LT min 3V COMPARISON: 12/03/2023 HISTORY: LEFT FOOT PAIN FINDINGS: BONES:Stable dorsal fusion first metatarsal-phalangeal joint with a plate and screws. Remote osteotomy and screw placement at of the second metatarsal. Remote resection head of the second proximal phalanx. Stable degenerative change with joint space narrowing marginal osteophyte formation SOFT TISSUES:Negative. No visible soft tissue swelling. EFFUSION:None visible. OTHER: Negative. XR/XR foot LT min 3V IMPRESSION: Stable postsurgical changes Electronically authenticated by: MARÍA BRYSON Date: 12/24/2023 11:19 Dictated By: María Bryson M.D. Signed By: 12/24/23 1122 DD/DT: [id number] TD/TT: Marina Dry Dock Manager: Procedure Note Radiology, Radiologist, - 01/29/2024 The [place] [id number] XRay Report Signed Patient: KAVITA AUSTIN AMR#: [id number] : 1950cct:[id number] Age/Sex: 73 / MADM Date: 12/24/23 Loc: RAD Attending Dr: Barbie Alcala D.P.M. Ordering Physician: Barbie Alcala D.P.M. Date of Service: 12/24/23 Procedure(s): XR foot LT min 3V Accession Number(s): [id number] cc: Barbie Alcala D.P.M.; North Gomes M.D. The [place] [id number] Patient Name: KAVITA AUSTIN MRN: [id number] date: 1950 Sex: M Assigned Patient Location: [facility] Current Patient Location: [facility] Accession/Order Number: [id number] Exam Date: 12/24/2023 09:26 Report Date: 12/24/2023 11:19 At the request of: BARBIE ALCALA Procedure: XR foot LT min 3V PROCEDURE: XR foot LT min 3V COMPARISON: 12/03/2023 HISTORY: LEFT FOOT PAIN FINDINGS: BONES:Stable dorsal fusion first metatarsal-phalangeal joint with a plateand screws. Remote osteotomy and screw placement at of the second metatarsal. Remote resection head of the second proximal phalanx. Stable degenerative change with joint space narrowing marginal osteophyte formation SOFT TISSUES:Negative. No visible soft tissue swelling. EFFUSION:None visible. OTHER: Negative. XR/XR foot LT min 3V IMPRESSION: Stable postsurgical changes Electronically authenticated by: MARÍA BRYSON Date: 12/24/2023 11:19 Dictated By: María Bryson M.D. Signed By:12/24/23 1122 DD/ 18 TD/TT: Marina Dry Dock Manager: Generic External Data Provider [facility] Final Result documented in this encounter Visit Diagnoses Not on filedocumented in this encounter Care Teams Automatic Thread Winder Relationship Specialty Start Date End Date North Gomes MD PCP - General Family Medicine 08/25/23 02/03/24 North Gomes MD PCP - General Family Medicine 02/04/24 North Gomes MD [address] [place] [address] PCP - Aetghislaine 02/24/24 documented as of this encounter
--- OUTSIDE RECORDS SUMMARY | 2025-08-03 09:25 | XMS_ITS | Encounter Summary ---
Author Organization [facility] Address [address] [place] [address] Care Team Providers Care Dictating Machine Transcriber Name Role Phone North Gomes MD Primary Care Provider [phone] Encounter Details Date Type Department Care Team (Late st Contact Info) Description 07/27/2025 Orders Only [facility] [address] [place] [address] Tiago Wilburn MD [address] [place] [address] Social History Tobacco Use Types [...] - REMOTE - LOOP RECORDER (ILR) Routine 07/27/2025 12:00 AM EDT documented in this encounter Results * Cardiac device check - Remote loop recorder (ILR) (07/27/2025 12:00 AM EDT) Anatomical Region Laterality Modality Other 07/27/2025 us Tiago Wilburn MD CV IMPLANTABLE CARDIAC DEVICE FL OCEDURES Final Result documented in this encounter Visit Diagnoses Not on filedocumented in this encounter Care Teams Dictating Machine Transcriber Relationship Specialty Start Date End Date North Gomes MD [address] [place] [address] PCP - General 12/05/22 documented as of this encounter
--- OUTSIDE RECORDS SUMMARY | 2025-08-03 09:25 | XMS_ITS | Encounter Summary ---
Author Organization [facility] Address [address] [facility] [place] [address] Care Team Providers Care Toby Maker Name Role Phone North Gomes MD Primary Care Provider [phone] North Gomes MD Unavailable Encounter Details Date Type Department Care Team (Late st Contact Info) Description 05/06/2024 Clinisync Result Encounter [facility] External Department Unsolicited [...] any clubs o r organizations such as yarsani groups, unions, fraternal [...] and heating? Not hard at all 02/03/2024 [facility] ional [facility] - Occupational Stress [...] place to sleep or slept in a senior care (including now)? No 02/03/2024 Sex and Gender Information Value Date Recorded Sex Assigned at Not on file Legal Sex Male 7:14 PM EDT Gender Identity Not on file Sexual Orientation Not on file documented as of this encounter Plan of Treatment Upcoming Encounters Date Type Department Care Team (Late st Contact Info) Description 09/28/2025 3:05 PM EST Office Visit [facility] [address] [place] [phone] Miriam Carpenter MD [address] [place] [address] documented as of this encounter Procedures Procedure Name Priority Date/Time Associated Diagnosis Comments XR FOOT LT MIN 3V 05/06/2024 3:4 9 PM EDT documented in this encounter Results * XR FOOT LT MIN 3V (05/06/2024 3:49 PM EDT) Anatomical Region Laterality Modality Other 05/06/2024 3:49 PM EDT Narrative 05/06/2024 3:52 PM EDT The [address] [address] XRay Report Signed Patient: KAVITA AUSTIN MR#: [id number] : 1950 Acct:[id number] Age/Sex: 74 / M ADM Date: 05/06/24 Loc: EC Attending Dr: Barbie Alcala D.P.M. Ordering Physician: Barbie Alcala D.P.M. Date of Service: 05/06/24 Procedure(s): XR foot LT min 3V Accession Number(s): [id number] cc: Barbie Alcala D.P.M.; North Gomes M.D. The [address] [address] Patient Name: KAVITA AUSTIN MRN: [id number] date: 1950 Sex: M Assigned Patient Location: EC Current Patient Location: EC Accession/Order Number: [id number] Exam Date: 05/06/2024 13:53 Report Date: 05/06/2024 15:49 At the request of: BARBIE ALCALA Procedure: XR foot LT min 3V PROCEDURE: XR foot LT min 3V COMPARISON: 02/06/2024 HISTORY: LEFT FOOT PAIN FINDINGS: BONES:Stable first metatarsal-phalangeal joint fusion with a dorsal plate and multiple screws. Remote osteotomy and screw placement at of the second metatarsal. Remote resection head of the second proximal phalanx. No acute fracture, dislocation or mechanical failure. Mild degenerative changes with marginal osteophyte from admission most significant in the midfoot SOFT TISSUES:Negative. No visible soft tissue swelling. EFFUSION:None visible. OTHER: Negative. XR/XR foot LT min 3V IMPRESSION: Stable postsurgical and degenerative changes Electronically authenticated by: MARÍA BRYSON Date: 05/06/2024 15:49 Dictated By: María Bryson M.D. Signed By: 05/06/24 1552 DD/ 1549 TD/TT: Desktop Operator: Procedure Note Radiology, Radiologist, MD - 05/06/2024 [place] [address] XRay Report Signed Patient: KAVITA AUSTIN AMR#: [id number] : 1950cct:[id number] Age/Sex: 74 / MADM Date: 05/06/24 Loc: EC Attending Dr: Barbie Alcala D.P.M. Ordering Physician: Barbie Alcala D.P.M. Date of Service: 05/06/24 Procedure(s): XR foot LT min 3V Accession Number(s): [id number] cc: Barbie Alcala D.P.M.; North Gomes M.D. The [place] [address] Patient Name: KAVITA AUSTIN MRN: [id number] date: 1950 Sex: M Assigned Patient Location: EC Current Patient Location: Accession/Order Number: [id number] Exam Date: 05/06/2024 13:53 Report Date: 05/06/2024 15:49 At the request of: BARBIE ALCALA Procedure: XR foot LT min 3V PROCEDURE: XR foot LT min 3V COMPARISON: 02/06/2024 HISTORY: LEFT FOOT PAIN FINDINGS: BONES:Stable first metatarsal-phalangeal joint fusion with a dorsal plateand multiple screws. Remote osteotomy and screw placement at of the second metatarsal. Remote resection head of the second proximal phalanx. No acute fracture, dislocation or mechanical failure. Mild degenerative changeswith marginal osteophyte from admission most significant in the midfoot SOFT TISSUES:Negative. No visible soft tissue swelling. EFFUSION:None visible. OTHER: Negative. XR/XR foot LT min 3V IMPRESSION: Stable postsurgical and degenerative changes Electronically authenticated by: MARÍA BRYSON Date: 05/06/2024 15:49 Dictated By: María Bryson M.D. Signed By:05/06/24 1552 DD/ 1549 TD/TT: Desktop Operator: us Generic External Data Provider [facility] Final Result documented in this encounter Visit Diagnoses Not on filedocumented in this encounter Care Teams Toby Maker Relationship Specialty Start Date End Date North Gomes MD PCP - General Family Medicine 02/04/24 North Gomes MD [address] [place] [address] PCP - [employer] 02/24/24 documented as of this encounter
--- OUTSIDE RECORDS SUMMARY | 2025-08-03 09:25 | XMS_ITS | Encounter Summary ---
Author Organization [facility] Address [address] [place] [address] Care Team Providers Care Tipple Greaser Name Role Phone North Gomes MD Primary Care Provider [phone] North Gomes MD Primary Care Provider [phone] North Gomes MD Unavailable Encounter Details Date Type Department Care Team (Late st Contact Info) Description 08/12/2023 Abstract [facility] [address] [facility] [address] [place] [address] Miriam Carpenter MD [address] [facility] [address] [place] [address] Social History Tobacco Use Types Packs/Day Years [...] Office Visit [facility] [address] [facility] [address] [facility] [address] [facility] [address] [place] [address] Miriam Carpenter MD [address] [facility] [address] [place] [address] documented as of this encounter Visit Diagnoses Not on filedocumented in this encounter Care Teams Tipple Greaser Relationship Specialty Start Date End Date North Gomes MD PCP - General Family Medicine 08/25/23 02/03/24 North Gomes MD PCP - General Family Medicine 02/04/24 North Gomes MD [address] [place] [address] PCP - Aetghislaine 02/24/24 documented as of this encounter
--- OUTSIDE RECORDS SUMMARY | 2025-08-03 09:25 | XMS_ITS | Encounter Summary ---
Author Organization [facility] Address [address] [place] [address] Care Team Providers Care Transplanter Orchid Name Role Phone North Gomes MD Primary Care Provider [phone] North Gomes MD Primary Care Provider [phone] North Gomes MD Unavailable Encounter Details Date Type Department Care Team (Late st Contact Info) Description 12/03/2023 Clinisync Result Encounter [facility] External Department Unsolicited [...] Office Visit [facility] [address] [facility] [address] [place] [address] Miriam Carpenter MD [address] [facility] [address] [place] [address] documented as of this encounter Procedures Procedure Name Priority Date/Time Associated Diagnosis Comments XR FOOT LT MIN 3V 12/03/2023 3:4 8 PM EST documented in this encounter Results * XR FOOT LT MIN 3V (12/03/2023 3:48 PM EST) Anatomical Region Laterality Modality Other 12/03/2023 3:4 8 PM EST Narrative 12/03/2023 3:51 [place] [address] XRay Report Signed Patient: KAVITA AUSTIN MR#: [id number] : 1950 Acct:[id number] Age/Sex: 73 / M ADM Date: 12/03/23 Loc: RAD Attending Dr: Barbie Alcala D.P.M. Ordering Physician: Barbie Alcala D.P.M. Date of Service: 12/03/23 Procedure(s): XR foot LT min 3V Accession Number(s): [id number] cc: Barbie Alcala D.P.M.; North Gomes M.D. [place] [address] Patient Name: KAVITA AUSTIN MRN: [id number] date: 1950 Sex: M Assigned Patient Location: [facility] Current Patient Location: [facility] Accession/Order Number: [id number] Exam Date: 12/03/2023 13:00 Report Date: 12/03/2023 15:48 At the request of: BARBIE ALCALA Procedure: XR foot LT min 3V EXAM: XR foot LT min 3V HISTORY: LEFT FOOT PAIN COMPARISON: 11/11/2023 TECHNIQUE: 3 views of the left foot were obtained. FINDINGS: The circular cast has been removed. Again seen is evidence of prior surgery with fusion at the first metatarsophalangeal joint accompanied by hardware. There is some irregular narrowing of the joint space, without complete osseous fusion. A screw is again seen at the head of the second metatarsal bone. An osteotomy is seen involving the distal aspect of the proximal phalanx of the second digit. XR/XR foot LT min 3V IMPRESSION: No acute fracture or dislocation. There is been mild progression of the fusion at the first metatarsophalangeal joint. Postsurgical changes are otherwise stable, as described. Electronically authenticated by: BARBIE HICKEY Date: 12/03/2023 15:48 Dictated By: Barbie Hickey M.D. Signed By: 12/03/23 1551 DD/ 1548 TD/TT: Other Sales Support Worker: Procedure Note Radiology, Radiologist, - 01/29/2024 [place] [address] XRay Report Signed Patient: KAVITA AUSTIN AMR#: [id number] : 1950cct:[id number] Age/Sex: 73 / MADM Date: 12/03/23 Loc: RAD Attending Dr: Babrie Alcala D.P.M. Ordering Physician: Barbie Alcala D.P.M. Date of Service: 12/03/23 Procedure(s): XR foot LT min 3V Accession Number(s): [id number] cc: Barbie Alcala D.P.M.; North Gomes M.D. The [place] [address] Patient Name: KAVITA AUSTIN MRN: [id number] date: 1950 Sex: M Assigned Patient Location: [facility] Current Patient Location: [facility] Accession/Order Number: [id number] Exam Date: 12/03/2023 13:00 Report Date: 12/03/2023 15:48 At the request of: BARBIE ALCALA Procedure: XR foot LT min 3V EXAM: XR foot LT min 3V HISTORY: LEFT FOOT PAIN COMPARISON: 11/11/2023 TECHNIQUE: 3 views of the left foot were obtained. FINDINGS: The circular cast has been removed. Again seen is evidence ofprior surgery with fusion at the first metatarsophalangeal joint accompanied by hardware. There is some irregular narrowing of the joint space, without complete osseous fusion. A screw is again seen at the head of the second metatarsal bone. An osteotomy is seen involving the distal aspect of the proximal phalanx of the second digit. XR/XR foot LT min 3V IMPRESSION: No acute fracture or dislocation. There is been mild progression of thefusion at the first metatarsophalangeal joint. Postsurgical changes are otherwise stable, as described. Electronically authenticated by: BARBIE HICKEY Date: 12/03/2023 15:48 Dictated By: Barbie Hickey M.D. Signed By:12/03/23 1551 DD/ 1548 TD/TT: Other Sales Support Worker: us Generic External Data Provider [facility] Final Result documented in this encounter Visit Diagnoses Not on filedocumented in this encounter Care Teams Transplanter Orchid Relationship Specialty Start Date End Date North Gomes MD PCP - General Family Medicine 08/25/23 02/03/24 North Gomes MD PCP - General Family Medicine 02/04/24 North Gomes MD [address] [place] [address] PCP - [employer] 02/24/24 documented as of this encounter
--- OUTSIDE RECORDS SUMMARY | 2025-08-03 09:25 | XMS_ITS | Encounter Summary ---
Author Organization [facility] Address [address] [facility] [place] [address] Care Team Providers Care Principal Secretary Name Role Phone North Gomes MD Primary Care Provider [phone] North Gomes MD Unavailable Encounter Details Date Type Department Care Team (Late st Contact Info) Description 12/18/2024 Clinisync Result Encounter [facility] External Department Unsolicited [...] often do you attend chur ch or sabianist services? More than 4 times per year 02/03/2024 Do you belong to any clubs o r organizations such as restorationist groups, unions, fraternal or athletic groups, or [...] and heating? Not hard at all 02/03/2024 [facility] Occupat ional Health - [...] place to sleep or slept in a correction (including now)? No 02/03/2024 Sex and Gender [...] Dermatology [address] [place] [address] Miriam Carpenter MD [address] [place] [address] documented as of this encounter Procedures Procedure Name Priority Date/Time Associated Diagnosis Comments MR KNEE LT WO CON 12/18/2024 5:0 1 PM EST documented in this encounter Results * MR KNEE LT WO CON (12/18/2024 5:01 PM EST) Anatomical Region Laterality Modality Other 12/18/2024 5:01 PM EST Narrative 12/18/2024 5:03 [place] [address] Magnetic Resonance Report Signed Patient: KAVITA AUSTIN MR#: [id number] : 1950 Acct:[id number] Age/Sex: 74 / M ADM Date: 12/18/24 Loc: MRI Attending Dr: ANDREW VERONICA BLACKSMITH APPRENTICE Ordering Physician: ANDREW VERONICA NP Date of Service: 12/18/24 Procedure(s): knee LT wo con Accession Number(s): [id number] cc: ANDREW VERONICA BLACKSMITH APPRENTICE; North Gomes M.D. The [address] [address] Patient Name: KAVITA AUSTIN MRN: [id number] date: 1950 Sex: M Assigned Patient Location: MRI Current Patient Location: MRI Accession/Order Number: [id number] Exam Date: 12/18/2024 13:05 Report Date: 12/18/2024 17:01 At the request of: ANDREW B APLING Procedure: MR knee LT wo con EXAM: MR knee LT wo con HISTORY: Internal Derangement Left Knee COMPARISON: None. TECHNIQUE: MRI images obtained with multiple sequences. MRI of the left knee without contrast. Sequences obtained by standard department protocol. FINDINGS: Anterior cruciate and posterior cruciate ligaments are intact. Medial collateral ligament and lateral supporting structures are intact. Medial meniscus is intact. Full-thickness chondral loss of the medial femoral condyle measuring 1.4 x 1.7 cm (8001/16). Complex tearing of the lateral meniscal body (8001/18). Lateral compartment articular cartilage is preserved. High-grade chondral loss of the patellar articular cartilage. Trochlear articular cartilage is preserved. Extensor mechanism is intact. Moderate popliteal cyst. Prepatellar subcutaneous soft tissue edema. No acute fractures. MR/MR knee LT wo con IMPRESSION: 1. Complex tearing of the lateral meniscal body (8001/18). 2. Full-thickness chondral loss of the medial femoral condyle measuring 1.4 x 1.7 cm (8001/16). 3. High-grade chondral loss of the patellar articular cartilage 4. Prepatellar subcutaneous soft tissue edema. 5. No acute fractures. Electronically authenticated by: BRADLEY HASSAN Date: 12/18/2024 17:01 Dictated By: Bradley Hassan M.D. Signed By: 12/18/241702 DD/ 00 TD/TT: Concrete Products Dispatcher: Procedure Note Radiology, Radiologist, MD - 12/18/2024 [place] [address] Magnetic Resonance Report Signed Patient: KAVITA AUSTIN [facility]#: [id number] : 1950cct:[id number] Age/Sex: 74 / MADM Date: 12/18/24 Loc: MRI Attending Dr: ANDREW VERONICA NP Ordering Physician: ANDREW VERONICA NP Date of Service: 12/18/24 Procedure(s): MR knee LT wo con Accession Number(s): [id number] cc: ANDREW VERONICA BLACKSMITH APPRENTICE; North Gomes M.D. The [place] [id number] Patient Name: KAVITA AUSTIN MRN: [id number] date: 1950 Sex: M Assigned Patient Location: MRI Current Patient Location: MRI Accession/Order Number: [id number] Exam Date: 12/18/2024 13:05 Report Date: 12/18/2024 17:01 At the request of: ANDREW Peterson APLALAN Procedure: MR knee LT wo con EXAM: MR knee LT wo con HISTORY: Internal Derangement Left Knee COMPARISON: None. TECHNIQUE: MRI images obtained with multiple sequences. MRI of the leftknee without contrast. Sequences obtained by standard department protocol. FINDINGS: Anterior cruciate and posterior cruciate ligaments are intact. Medial collateral ligament and lateral supporting structures are intact. Medial meniscus is intact. Full-thickness chondral loss of the medialfemoral condyle measuring 1.4 x 1.7 cm (8001/16). Complex tearing of the lateral meniscal body (8001/18). Lateralcompartment articular cartilage is preserved. High-grade chondral loss of the patellar articular cartilage. Trochlear articular cartilage is preserved. Extensor mechanism is intact. Moderate popliteal cyst. Prepatellar subcutaneous soft tissue edema. No acute fractures. MR/MR knee LT wo con IMPRESSION: 1. Complex tearing of the lateral meniscal body (8001/18). 2. Full-thickness chondral loss of the medial femoral condyle measuring1.4 x 1.7 cm (8001/16). 3. High-grade chondral loss of the patellar articular cartilage 4. Prepatellar subcutaneous soft tissue edema. 5. No acute fractures. Electronically authenticated by: BRADLEY HASSAN Date: 12/18/2024 17:01 Dictated By: Bradley Hassan M.D. Signed By:12/18/241702 DD/ 00 TD/TT: Concrete Products Dispatcher: Generic External Data Provider [facility] Final Result documented in this encounter Visit Diagnoses Not on filedocumented in this encounter Care Teams Principal Secretary Relationship Specialty Start Date End Date North Gomes MD PCP - General Family Medicine 02/04/24 North Gomes MD [address] [place] [address] PCP - Aetghislaine 02/24/24 documented as of this encounter
--- OUTSIDE RECORDS SUMMARY | 2025-08-03 09:25 | XMS_ITS | Clinical Summary ---
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 3 Active famotidine (Pepcid) 20 mg tablet Take 20 mg by mouth twice a day. Active ferrous sulfate 325 (65 Fe) MG tablet Take 325 mg by mouth in the morning. Active dilTIAZem CD (Cardizem CD) 240 mg 24 hr capsuleIndicatio ns:Essential hypertension Take 1 capsule (240 mg) by mouth once daily as directed. 90 capsule 3 5 01/29/20 26 Active lisinopril 10 mg tabletIndication s:Essential hypertension Take 1 tablet (10 mg) by mouth once daily as directed. 90 tablet 3 5 04/21/20 26 Active rivaroxaban (Xarelto) 20 mg tabletIndication s:Paroxysmal atrial fibrillation (CMS/HCC),SVT (supraventricula r tachycardia) Take 1 tablet (20 mg) by mouth daily with evening meal. Take with food. 90 tablet 3 5 04/21/20 26 Active Active Problems Problem Noted Date Diagnosed Date Arrhythmia 04/21/2025 History of colonic polyps 04/21/2025 Hypertension 04/21/2025 Pain due to internal orthope dic prosthetic devices, implants and grafts, initial encounter 04/21/2025 Pain in left foot 04/21/2025 Pseudarthrosis after fusion or arthrodesis 04/21 Medicare annual wellness visit, subsequent 03/17 Overview (06/09/2024): Last Assessment & Plan: Due for labs. Discussed proper diet and regular aerobic exercise. Need aerobic exercise 5-6 days a week for 30 minutes at a time. Smaller portions and limit total calories. Colonoscopy every 10 years. Tetanus every 10 years. Advised not to smoke. Discussed daily Aspirin therapy. Obesity (BMI 30-39.9) 03/17/2024 Encounter for long-term (current) use of medicat ions 03/17/2024 Claustrophobia 02/04/2024 Dyslipidemia 02/04/2024 Gastroesophageal reflux disease without esophagi tis 02/04/2024 Insomnia, unspecified 02/04/2024 Postural dizziness with near syncope 02/04/2024 Prediabetes 02/04/2024 Spondylosis of lumbar region without myelopathy or radiculopathy 02/04/2024 Transient global amnesia 02/04/2024 Overview (06/09/2024): Last Assessment & Plan: Recent episode and resolved. 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 Check MRI to assess for CVA. If CVA will need to start statin and refer to neurology. Continue aspirin. SVT (supraventricular tachycardia) 12/03/2023 Epididymitis 07/30/2023 07/30/2023 Ischial bursitis of left side 07/30/2023 Primary osteoarthritis of left hip 01/29/2023 07/30/2023 Overview (07/30/2023): Added automatically from request for surgery [id number] Chronic prostatitis 12/05/2022 Family history of malignant neoplasm of kidney 0 12/05/2022 History of anticoagulant therapy 12/05/2022 Pain in testicle 12/05/2022 Varicocele 12/05/2022 Lumbosacral spondylosis without myelopathy 07/28 Overview (12/05/2022): Added automatically from request for surgery [id number] Paroxysmal atrial fibrillation 07/10/2017 Assessment & Plan (12/19/2022 3:57 PM EST): - [id number]: 1 (age), possibly 2 for masked HTN, he has not trialed off cardizem -continue aspirin 325 -he called after visit and decided he would like to proceed with loop monitor implant for AF surveillance -continue cardizem 180 BPH (benign prostatic hyperplasia) 07/10/2017 Restless leg syndrome 07/10/2017 Degenerative joint disease of pelvic region 03/25 Sleep apnea 10/09/2016 Overview (12/05/2022): instructed to bring CPAP to hospital Assessment & Plan (12/19/2022 3:56 PM EST): -continue with compliance for cpap Encounters Date Type Department Care Team Description 08/02/2025 12:40 PM EDT Ancillary Procedure [facility] [address] [place] [id number] Awareness of heartbeats 07/27/2025 2:15 PM EDT Office Visit [place] [address] [place] [address] Tiago Wilburn MD Abnormal EKG (Primary Dx); Pre-op evaluation 07/27/2025 Orders Only [facility] [address] [place] [phone] Tiago Wilburn MD 07/27/2025 Orders Only [facility] [address] [place] [phone] ProviderIsh MD 07/12/2025 Orders Only [facility] [address] [place] [address] Carmencita Tse MD 07/02/2025 3:55 PM EDT Ancillary Procedure [facility] [address] [place] [address] Awareness of heartbeats 06/02/2025 Orders Only [facility] [address] [phone] Carmencita Tse MD 06/01/2025 3:10 AM EDT Ancillary Procedure [facility] [address] [place] [phone] Awareness of heartbeats 05/04/2025 6:20 PM EDT Ancillary Procedure [facility] [address] [place] [phone] Awareness of heartbeats from Last 3 Months Immunizations Immunization Administration Dates Next Due Influenza, Seasonal, Quadriv alent, Adjuvanted 09/02/2022,08/14/2021 Influenza, injectable, quadr ivalent, preservative free 08/05/2020,07/08/2018,08/08/2017,07/19,09/03/2015 Influenza, seasonal, injectable 07/26/2017 Influenza, trivalent, adjuvanted 08/31/2019 Moderna SARS-CoV-2 Vaccination 03/22/2021 Pneumococcal Conjugate PCV 13 08/05/2020 Pneumococcal Polysaccharide PPV23 08/14/2021 Zoster, Recombinant 07/08/2018,03/25/2018 Family History Medical History Relation Name Comments malignant neoplastic disease Father Coronary artery disease Mother maligant neoplastic disease Mother Relation Name Status Comments Father Mother Social History Tobacco Use Types Packs/Day Years [...] not to disclose 2024 10:59 PM EDT Last Filed Vital Signs Vital Sign Reading Time Taken Comments Blood Pressure 106/66 07/27/2025 2:24 PM EDT Pulse 69 07/27/2025 2:24 PM EDT Temperature - - Respiratory Rate 15 02/12/2024 6:10 PM EDT Oxygen Saturation 93% 07/27/2025 2:24 PM EDT Inhaled Oxygen Concentration - - Weight 114 kg (251 lb) 07/27/2025 2:24 PM EDT Height 188 cm (6' 2 ) 07/27/2025 2:24 PM EDT Body Mass Index 32.23 07/27/2025 2:24 PM EDT Plan of Treatment Health Maintenance Due Date Last Done Comments CT Colonography 1952 Colonoscopy 1952 Colorectal Cancer Screening 1952 FIT-DNA 1952 FIT 1952 FOBT 1950 Medicare Annual Wellness (AWV) 1950 Sigmoidoscopy 1952 Depression Screening 1964 Adult Tetanus 1974 Mammogram 1992 Fall Risk Screening 2017 COVID-19 Vaccine ( season) 2025 10/05/2021, 03/22/2021, 03/22/2021, Additional history exists Influenza Vaccine (#1) 2025 , 08/22/2023, 09/02/2022, Additional history exists Diabetes: Hemoglobin A1C 04/03/2026 04/03/2025 Zoster Vaccines Completed 07/08/2018, 03/25/2018 Pneumococcal Vaccine: 50+ Years Completed 08/14/2021, 08/05/2020 HIB Vaccines Aged Out No longer eligi ble based on patient's age to complete this topic HPV Vaccines Aged Out No longer eligi ble based on patient's age to complete this topic IPV Vaccines Aged Out No longer eligi ble based on patient's age to complete this topic Meningococcal B Vaccine Aged Out No l onger eligible based on patient's age to complete this topic Meningococcal Vaccine Aged Out No alcides mckayla eligible based on patient's age to complete this topic Rotavirus Vaccines Aged Out No longer eligible based on patient's age to complete this topic Medical Devices Implanted Type Area Adult Psychiatrist Device Identifier Shelf Expiration Date Model / Serial / Lot Monitor,Ardena c,Mobile,Luxdx - [id number] - [id number] Implanted:Qty: 1 on 01/24/2023 by Tiago Wilburn MD at [facility] Implantable Loop Recorder [employer] [id number] / [id number] / Procedures Procedure Name Priority Date/Time Associated Diagnosis Comments CARDIAC DEVICE CHECK CHECK - REMOTE Routine 08/02/2025 9:20 AM EDT Awareness of heartbeats BASIC METABOLIC PANEL Routine 07/27/2025 8:30 AM EDT CARDIAC DEVICE CHECK - REMOTE - LOOP RECORDER (ILR) Routine 07/27/2025 12:00 AM EDT CARDIAC DEVICE CHECK CHECK - REMOTE Routine 07/15/2025 9:08 AM EDT Awareness of heartbeats CARDIAC DEVICE CHECK - REMOTE - LOOP RECORDER (ILR) Routine 07/12/2025 12:00 AM EDT CARDIAC DEVICE CHECK CHECK - REMOTE Routine 06/23/2025 5:49 PM EDT Awareness of heartbeats CARDIAC DEVICE CHECK - REMOTE - LOOP RECORDER (ILR) Routine 06/02/2025 12:00 AM EDT CARDIAC DEVICE CHECK CHECK - REMOTE Routine 05/17/2025 12:48 PM EDT Awareness of heartbeats HEMOGLOBIN A1C Routine 04/03/2025 4:56 PM EDT from Last 3 Months or Most Recently Relevant to Health Maintenance Results * CARDIAC DEVICE CHECK - REMOTE - LOOP RECORDER (ILR) (08/02/2025 9:20 AM EDT) Only the most recent of4 resultswithin the time period is included. Tiago Wilburn MD CV IMPLANTABLE CARDIAC DEVICE CA OCEDURES Final Result CPACS * Basic metabolic panel (07/27/2025 8:30 AM EDT) Blood Venous blood specimen / Unknown Historical Provider LAB BLOOD ORDERABLES Halie l Result * Cardiac device check - Remote loop recorder (ILR) (07/27/2025 12:00 AM EDT) Only the most recent of3 resultswithin the time period is included. Anatomical Region Laterality Modality Other 07/27/2025 Tiago Wilburn MD CV IMPLANTABLE CARDIAC DEVICE CA OCEDURES Final Result * Hemoglobin A1c (04/03/2025 4:56 PM EDT) Blood Venous blood specimen / Unknown Result [facility] Historical Provider LAB BLOOD ORDERABLES Halie l Result from Last 3 Months or Most Recently Relevant to Health Maintenance Insurance [employer] MED[employer]ARE [employer]VANTAGE Care Teams Buffer Operator Relationship Specialty Start Date End Date North Gomes MD [address] [place] [address] PCP - General 12/05/22
--- OUTSIDE RECORDS SUMMARY | 2025-08-03 09:26 | XMS_ITS | CCD ---
Author Organization [facility] Care Team Providers Care Radio Producer Name Role Phone NORTH CHAP[place] Primary Care Physician DO Miguel Astorga Attending Provider [phone] MD North Chapin Primary Care Provider Miguel [...] Consulting Unavailable KALEY, MODESTO Consulting Unavailable CECILIA ANEDRSON Attending Unavailable NADERENORTH Gonzalez Referring Unavailable NADERER, NORTH Primary Care Unavailable CECILIA ANDERSON Attending Unavailable VERHOCECILIA WILSON Referring Unavailable NADERELisa, NORTH Primary Care Unavailable North Chapin MD Primary Care Provider [phone] North Chapin MD Unavailable North Chapin MD Primary Care Provider NORTH CHAPIN Primary Care Unavailable ENRRIQUE WALDROP Attending Unavailable STEPARGENTINA, ENRRIQUE Sweeney Admitting Unavailable STEPARGENTINA, ENRRIQUE Sweeney Attending Unavailable STEPARGENTINA, ENRRIQUE Sweeney Admitting Unavailable [...] Unavailable APLING, MARY LOU Peterson Attending Unavailable Naderer North RUSSELL Primary Care Provider [phone] KAVYA GERMAIN Attending Unavailable NADERER, NORTH Referring Unavailable NADERER, NORTH Primary Care Unavailable NADERER, NORTH Referring Unavailable NADERER, NORTH Primary Care Unavailable BRENNAN, ROXANNE Referring Unavailable BRENNAN, ROXANNE Referring Unavailable CYN, LOYD Referring Unavailable BRENNAN, ROXANNE Referring Unavailable BRENNAN, ROXANNE Referring Unavailable CYN, LOYD Referring Unavailable CYN, LOYD Referring Unavailable BRENNAN, ROXANNE Referring Unavailable BRENNAN, ROXANNE Referring Unavailable BRENNAN, ROXANNE Referring Unavailable SHERWINMIKE Attending Unavailable BRENNAN, ROXANNE Attending Unavailable BRENNAN, ROXANNE Attending Unavailable BRENNAN, ROXANNE Referring Unavailable BRENNAN, ROXANNE Referring Unavailable BRENNAN, ROXANNE Referring Unavailable BRENNAN, ROXANNE Referring Unavailable Allergies Allergy Classification Reported Allergen(s) Allergy Type Date of Onset Reaction(s) Facility (2 sources) No Known Medication Allergies; Translations: [No Known Medication Allergies] Propensity to adverse reactions to drug (disorder) [facility] Medications Current Medications Medication Drug Class(es) [...] every six hours for pain HYDROcodone-acetami nophen (Baxter) 5-325 MG tablet Indications: Internal derangement of [...] day(s), # 60 tab(s), Refills(s) 0, Pharmacy: [facility], 189, cm, 10/12/24 [...] 30 tab(s), Refills(s) 2, [facility]: [facility], 189, cm, 05/07/22 14:58:00 EDT, Height/Length Dosing, 129, kg, 05/07/22 14:58:00 EDT, Weight Dosing Start Date: 05/07/22 Status: Ordered tadalafil 20 mg oral tablet (2 sources) Phosphodiesterase 5 Inhibitor Start: 06-24-2023 take 1 tablet by mouth once daily Cialis 20 mg Tab 20 mg = 1 tab(s), Oral, Daily, # 39 tab(s), Refills(s) 2, [facility]acy: [id number], 189, cm, 05/07/22 14:58:00 EDT, Height/Length Dosing, 107, kg, 06/24/23 15:49:00 EDT, Weight Dosing Start Date: 06/24/23 Status: Ordered tamsulosin hydrochloride 0.4 mg oral capsule (20 sources) alpha-Adrenergic Neeta Start: 04-06-2022 take 1 capsule by mouth once daily Flomax 0.4 mg Cap 0.4 mg = 1 cap(s), Oral, Daily, # 90 cap(s), Refills(s) 3, Pharmacy: [facility], 189, cm, 08/26/23 11:12:00 EDT, Height/Length Dosing, 107, kg, 06/24/23 15:49:00 EDT, Weight Dosing Start Date: 03/23/24 Status: Ordered take 1 capsule by [facility] every twenty-four hours in the morning tamsulosin [...] 02-04-2024 Chronic Other aftercare (1 source) Other half-way (current) drug therapy; Translations: [[employer]ER CURRENT DRUG THERAPY] Onset: 03-11-2023 Episodic Other circulatory disease (2 sources) Presence of other cardiac implants and grafts; Translations: [Presence of other cardiac implants and grafts] Onset: 04-21-2025 Chronic Other connective tissue disease (1 source) Presence [...] unspecified; Translations: [Pain, unspecified] Onset: 07-15-2025 Episodic Spondylosis; intervertebral disc disorders; other back [...] dysrhythmias (2 sources) Palpitations; Translations: [Palpitations] Onset: 04-12-2025 Episodic Complications of surgical procedures or medical [...] Onset: 12-06-2022 Episodic Other aftercare (1 source) 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; Translations: [USP CURRENT USE OF ASPIRIN] Onset: 12-10-2022 Episodic Other aftercare (20 sources) Long-term current use of drug therapy; Translations: [Other half-way (current) drug therapy] Onset: 03-17-2024 03-17-2024 Episodic [...] skin and subcutaneous tissue] 08-13-2024 Episodic Other circulatory disease (2 sources) Personal history of other diseases of the circulatory system; Translations: [Personal history of other diseases of the circulatory system] Onset: 04-21-2025 Episodic Other connective tissue disease (5 sources) [...] Translations: [Insomnia, unspecified] Onset: 02-04-2024 02-04-2024 Episodic Residual codes; unclassified (2 sources) Other specified postprocedural states; Translations: [Other specified postprocedural states] Onset: 04-21-2025 Episodic Transient cerebral ischemia (20 sources) Transient global amnesia; Translations: [Transient global amnesia] Onset: 02-04-2024 Resolved: 12-24-2024 02-04-2024 Chronic Unclassified (1 source) CONTACT W/AND (SUSP) EXPOS COVID-19; Translations: [CONTACT W/AND (SUSP) EXPOS COVID-19] Onset: 06-04-2022 Unclassified (1 source) Supraventricular tachycardia, unspecified; Translations: [Supraventricular tachycardia, unspecified] Onset: 04-21-2025 Results Test Name Value Interpretation Reference Range Facility Office Visiton 07-27-2025 Follow-up visit [id number] Oscar Escoto 1950 M Date Provider Department Center 07/27/2025 ROXANNE MARTINEZ CARD [facility] Family History Problem Relation Age of Onset Other Mother Coronary artery disease Mother Other Father Family Status - Relation Status Age at Mother Father Level of Service:98383 [place] OFFICE/OUTPATIENT ESTABLISHED LOW MDM 20 MIN Normal [facility] Orders Onlyon 07-27-2025 Orders Only [id number] Oscar Escoto 1950 M Date Provider Department Center 07/27/2025 [id number], [facility] CARD [facility] Family History Problem Relation Age of Onset Other Mother Coronary artery disease Mother Other Father Family Status - Relation Status Age at Mother Father Normal [facility] Orders Only [id number] Oscar Escoto 1950 M Date Provider Department Center 07/27/2025 ROXANNE MARTINEZ C CARD [facility] Family History Problem Relation Age of Onset Other Mother Coronary artery disease Mother Other Father Family Status - Relation Status Age at Mother Father Normal [facility] Orders Onlyon 07-12-2025 Orders Only [id number] Oscar Escoto 1950 M Date Provider Department Center 07/12/2025 Orquidea-PERRI HEARN HVC CARD [facility] Family History Problem Relation Age of Onset Other Mother Coronary artery disease Mother Other Father Family Status - Relation Status Age at Mother Father Normal [facility] US Scrotum and testicleon [facility] [address] [place] [address] Ultrasound Report Signed Patient: OSCAR ESCOTO MR#: [id number] : 1950 Acct:[id number] Age/Sex: 75 / M ADM Date: 07/02/25 Loc: US Attending Dr: North Chapin M.D. Ordering Physician: North Chapin M.D. Date of Service: 07/02/25 Procedure(s): US scrotum Accession Number(s): [id number] cc: North Chapin M.D. [place] [address] Patient Name: OSCAR ESCOTO MRN: [facility]:[id number] date: 1950 Sex: M Assigned Patient Location: US Current Patient Location: US Accession/Order Number: [id number] Exam Date: 07/02/2025 14:51 Report Date: 07/02/2025 [...] Jr., D.O. 07/02/2025 2:53 PM Dictation Location: [place] [address] Electronically authenticated by: [id number] Y Date: 07/02/2025 14:53 Dictated By: Tariq Lozada M.D. Signed By: 07/02/25 1455 DD/ 145 TD/TT: Structures Engineer: [facility] Radiology, Radiologist, - 07/02/[address] [address] Ultrasound Report Signed Patient: OSCAR ESCOTO MR#: [id number] : 1950 Acct:[id number] Age/Sex: 75 / M ADM Date: 07/02/25 Loc: US Attending Dr: North Chapin M.D. Ordering Physician: North Chapin M.D. Date of Service: 07/02/25 Procedure(s): US scrotum Accession Number(s): [id number] cc: North Chapin M.D. The [address] [address] Patient Name: OSCAR ESCOTO MRN: [facility]:[id number] date: 1950 Sex: M Assigned Patient Location: US Current Patient Location: US Accession/Order Number: [id number] Exam Date: 07/02/2025 14:51 Report Date: 07/02/2025 [...] Jr., D.O. 07/02/2025 2:53 PM Dictation Location: [place] [address] Electronically authenticated by: [id number] Y Date: 07/02/2025 14:53 Dictated By: Tariq Lozada M.D. Signed By: 07/02/25 1455 DD/ 1453 TD/TT: Structures Engineer: [facility] Radiology Study observation (narrative) [facility] US Scrotum and testicleOrder ed By: Radiologist Radiology on 07-02-2025 [facility] Work Phone: Destr of lesionon 05-12-2025 Complexity: simple Destruction method: electrodesiccation and curettage Informed consent: discussed and consent obtained Informed consent comment: The risks of the procedure were discussed, including, but not limited to risks of scarring, darker or medical records director pigmentary changes, recurrence, infection, and incomplete removal [...] lidocaine used: 2.0 cc Previous accession number: [id number] [facility] Complexity: simple Destruction method: electrodesiccation and curettage Informed consent: discussed and consent obtained Informed consent comment: The risks of the procedure were discussed, including, but not limited to risks of scarring, darker or medical records director pigmentary changes, recurrence, infection, and incomplete removal [...] lidocaine used: 2.0 cc Previous accession number: [id number] [facility] [employer] [facility] [employer] No Panel Informationon 04-30 Lesion length (cm): [...] details: Amount of lidocaine used: 4.0 ml [facility] No Panel InformationOrdered By: Naomi Hernandez on 04-30-2025 [facility] Healthcare Office Visiton 04-21-2025 Follow-up visit [id number] Oscar Escoto 1950 M Date Provider Department Center 04/21/2025 [id number], ADAM KATHARINA Wu Family History Problem Relation Age of Onset Other Mother Coronary artery disease Mother Other Father Family Status - Relation Status Age at Mother Father Level of Service:17468 [place] OFFICE/OUTPATIENT ESTABLISHED MOD MDM 30 MIN Normal [facility] Orders Onlyon 04-15-2025 Orders Only [id number] Oscar Escoto 1950 M Date Provider Department Center 04/15/2025 [id number], HISTORICAL BUD Wu Family History Problem Relation Age of Onset Other Mother Coronary artery disease Mother Other Father Family Status - Relation Status Age at Mother Father Normal [facility] Ambulatory Visit Summaryon 0 04-05-2025 Ambulatory Visit Summary Ambulatory Visit Summary OSCAR ESCOTO :1950 Visit Date:04/05/2025 Ambulatory Visit Instructions Your Diagnosis BPH with obstruction/lower urinary tract symptoms Epididymitis Chronic prostatitis Family history of kidney cancer Organic impotence Your Care Team Attending Physician - ESEQUIEL [...] Following Appointments Follow Up with ESEQUIEL RUSSELL, TEX Gonzalez When: Comments: sched orchiectomy in September Where: [facility] [address], [place] [address]- [phone] Medications What How Much When Why Instructions New doxycycline (doxycycline hyclate 100 mg Tab) 1 Tablets By Mouth 2 times a day Epididymitis Chronic prostatitis Duration: 14 Days Pickup at [facility] Unchanged diltiazem (DilTIAZem (Eqv-Cardizem CD) 240 mg/ [...] physician if questions or concerns Pharmacy Information [facility]: [address] [place], [place] [id number] [phone] Allergies No Known Medication Allergies Problems Ongoing - Any problem that you are currently receiving treatment for. 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 Epididymitis Family history of kidney cancer Hx of half-way use of blood thinners Impotence Organic impotence [...] including vitamins, herbs, eye drops, creams, and fbdq-fby-jbulupd medicines. ??? Any problems you or family [...] before yo (more content not included)... Normal [facility] Urology Office/Clinic Noteon 04-05-2025 Urology Office/Clinic Note [...] 100mg bid x2 wks. Rx sent to [facility]. Avoid sun exposure. Take with probiotics/yogurt daily. [...] [facility] [address], [place] [address] [phone] Additional Instructions: sched orchiectomy in September Patient [...] Family history of kidney cancer Hx of half-way use of blood thinners Impotence Organic impotence [...] Smokeless Tobacco (more content not included)... Normal [facility] Comment on above: Result Comment: Elec tronically Signed By: Natali IRAHETA MD\.br\Date and Time Signed: 04/05/25 13:21 EDT\.br\Electronically Co-Signed By: Katheryn Fernandez\.br\Date and Time Co-Signed: 04/05/25 13:20 EDT [facility] HEMOGLOBIN A1Con 025 Glucose [Mass/Vol] 114 mg/dL [facility] HbA1c (Bld) [Mass fraction] 5.6 % 4.5 - 6.2 % [facility] Comment on above: ADA RECOMMENDED LIMI T 4.0 - 6.0 ADA THERAPEUTIC TARGET < 7.0 ACTION SUGGESTED > 7.0 [facility] Coding Summaryon 03-30-2025 Coding Summary HTMLBase 64 QvghxhzgLPm3mZe+PGhlYW Q+ZV5DHJLbR30ipFNykW8d Q0LRDXoTYkfcMNMUGWqQFo HjyiHbSC1wcIUbMMMq IC8+PK2oQIEaHccyrAQhp4 B9cPO9D47tdo7uABbosIC6 CCRpYgMtotfwu0dzkRz7PT cuNmluOyBt EXGdsG12RYP2uY37Pb30pH QyaTNnp6ssbNq8QrXjFQNm FXN5tOtzCWhri9ApENLuH3 9qdGSje3A7 YFGbfYxxoALaCuTuiMV5rC 9xEJqwoqfiz1puzfwvDwy8 ks18iFJzt3U7zNS0M3Nzuc O9DSIeqGWq RfbeeKLToL1lmjqoo0dwoy xdWpYvKOQkKSz4JIa6IFZw hLovJhIrIE78KUE0FGYxma BtW2NfWPDs xUouFwP7k2C4Yw4CT6WDMg qkT8CQBSRQQHlfvVO+PC90 xc64P6DyRatoInk4BUCaUX J2pMJ3bS6y EXIwAXown1Y7hCI5C8Vikw Ssta9rm5qjVBUgDFtuY44d nQLhx3T4TYGiaTC5HSZonE bqDnYdwJ13 Oyc+JBAxmFeel7SfQknkm2 lrh7ujuAc1LsrjOHMfdwWs iFoqRLQ9y5WlHf3sZMUexT R3fPY2gS1c OgSnPaY4MEveB250HfSmpG CpGtibI78hD8IurGQ+PHRy Sut5MLZbjEmdXB1aZ1MkGQ RpbmctbGVm gLrnIA9mBNBtdncfFMEcrR 7yDKMyC0p1LePgYiJ7QAmx C1SdHUCyypvjLo75dH6qNu IoGuI7XSch W8JendO8DGIegIVxSTycSD E6A41zr4B3MUMiGHIuJRG9 dES6yT8fgIqiatbzlQLvvE sgdmVydGlj GOueRZsjJ032PCOzyBlkRb NvZGluZyBEYXRlOiAgMDUv MDYvMjAyNTwvdGQ+PHRkIH X0wFkbQTMx nDMxSKtaCp7mwQidwOjaOY 9bMFOhisozTEZpzX4aSCEa oVGwrNmjKF6bWNWpvmspj3 06KxCiEAI4 DKEcqSFbL6JrzP5cOcYjEU BcRUBhD6FrzFGlQIyfV076 XGwuVcH6LJXataJgM8ZfZL FsaWduOiB0 a8U0Vr7Fy4TnnelnA9CcvL GxScIrOpbqEKs0W0CgZmdt dHI+LR83RURaFF41EUo1XU G7rZtgNYof XUCsD1PcoN3hAkFnLREkZT RkOyc+PHRhYmxlIHdpZHRo UPuiTJYyZwKolIcxXG6xHl 9yZGVyLWNv aUocbTVtBzBfy3bfAUUvHF ivPU1cbWjbU7ZisZH7OBTm s2f6Io71R61xJ9QnsTM+PG JnoRT7nRR8 wQ6oLaVtUcE9HVllN298Bw YstXBiZhlza7yct0dbnFb4 YjM2LFKoljPbtUeoDTL1m4 UtPc78U66h IHdpZHRoPSIxNSUiIHZhbG ckbt2fjV1tKi4+PGNvbCB3 dHO8nR8nMpJnFbA4ROysD2 49InRvcCIv Bljxn3cxj5vshDw8GsRlYN UssxXgdHmaESL9n4KyNn52 D0NquLtqw1WwQyl0im11oX Dxw2N1mKY1 B3WbNXGtvdiykWLsnDfcQJ 1oDEJbmbkmBADsgU6tWZEo B6r6FdHsScD0VHliV2Omtu H2ZHGxtERn HWUnnGAKdY3vvxjqq9ozgr afGrOgCPQrUSf6DIz6ETMn iJyeCeCoTHQ4HlQ2NTG9iJ KrrV6iwHmh phpqaG1aFey+KIF0aFWvnJ KPHC7dVsnkgGE+PHRkIHN0 eDsuWPdkEOSmkS4jUNHvK7 b2JdUtOxD5 WYeyQ2QbrvC7CFJojUTvEH IirGJZwA9tdyjef0ylfsen WxEiLAVhYJr7SIn2NPBwrY duOiBsZWZ0 GsB8KMO5mJFzxS5evEvnnu xixB5dDiy+QmlydGggRGF0 GYy8K0DmZlo3OPPscEqmLA 0ncGFkZGlu Af2hpQvpyEoxAO7iNOBqku plt013AwHfm8frCEQdyNGa ZXefBRC8Y39bd5X7UMGeUZ MaGNH0vLR9 qY5zsNnucywazIHnjMtgbw SbjWabCHvdDBcfV043EBIg pCuhFfJhAHl0P8AyNuj2SM WpcCgmJM5x vVMtMEnbVt9grOahpEtqTB 8fBVQfszgpw899ZgIkd6hp XSUkoXVxMWgzJPH6N48ne9 N9PFGiXVBz EOD8wRA6nL6hxJhfjabjkQ VmdDsgdmVydGljYWwtYWxp T115XMVmvAmxKoNzfLa9J1 FkFsz1ZWFp lJuoOF5gyXIaKGizNe5rhO soaEdaEZ4eFZXkfqrhi144 DkGbv1ieUOBkhJAbMAfyIF L9W82ok7N0 TCQgKAXjADG3mBZ3vR4toF lnbjogbGVmdDsgdmVydGlj ZBthBMunH707IPHvkEekId BhdGllbnQg WYuuQRu4V9HhFufbeEK+PC 14JOBuSM72fSHwiWQym7uu tBk8GbArUBYlVTK6kQroJJ ixs7CcFLQz N33hlYFxy4A7KPVukGcsxW KeYjPobRU4uZ3mWNvlwmbk p1cqvphkNvfcz5mzxi23oL 65E93gYRzr ZHRoPSIzMCUiIHZhbGlnbj 6bpN8yZl1+TCGznWZ5sHJ9 kQ3hSLQhAvX5RIlhO454Nl RvcCIvPjxj b1tbg6byxCj1NxM4IPWiaa WfsSmlOBQ2k9ZeYl54E68c IHdpZHRoPSIyMCUiIHZhbG dfmg9rfG7k Ii8+LPEtoUF4mAM4eU4uGl FxSaT9AFtvQ826IzHcfHSn RingG35iX7MjfVF+PHRyPj m2ZLHejJsj TA6lpOXxLQovUa0aRQY8Sd RhCtOiZFydH1SoJRFqorgl oeparVM2ZSRqHWMieH15Va 9udDogMTBw lOWGgD1rqibtg1uyzomhZf NeQLGwLYi0FWv1JGOxiTih JoXcSSF7DfA9MWG9hSTxuO 1hbGlnbjog eN4zH8DlIUFolzyzJx90kU 5fRqNlIdR6TXfxFvj+TUNN DWHWKREcPEILFB5LNMXFKA xFTjwvdGQ+ IDVlKKJ3uGonEFwvMJTqdO 2dCRMqL8w9LxUqSmQ5UCpw B8GkWDSuqflgNf24hN6gYz GkDtZ9WZix L8VcmmS9IWCesRAwUFdtPN Y1O42uo9J6RBGlHKXvSGL6 vEY0iJ8igCnpqewybBAyzZ sgdmVydGlj SUuxONbyB910OSHnxMmvKm M9QrNxQlX7DNE8E2PmNfn2 OMRpkJmqWV8fqYLwMGsvOk 1yaWdodDog HZ7eKHQpajslQVYtvS1uSC UmmAEdkTdpJL2qOLVjlshr w057WdCaIYL5XXKvyWHhE3 LgrQ6aQkCl GNFuTNLxI9BhnODbARfjQ2 89RHpkUeD3VZWqxbTaC5Sd JCCvqUnuMfL7a5P3Jn26Bq BZZWFyczwv dGQ+LLHnDNU9aXkxESyfFM HiiX8lMJUbH2r3ZsFcSzM3 HPoeV3SuAJWszkhdNq69hR 2jEbOdDuE1 RWpyB2NerrA4PAWllHNnUU liMFH7B66pf0Z1VTAtTFNh ESD7zLS0bO4thQyscriixX VmdDsgdmVy tDyhIXvhUCsnK815SKFgfM rqHt1KMCV4H2ZeKyh2YIKd wBteVN9trFHiSDdpUm4eaY yudCmmSQ0e UFVtiixrDEZpgB6xTBRirD EsjWekMG5qZMIkyadbx014 IjXeEDM9VRCqgZHfE6MzuE 9yOiAjMDAw DWEkJ2YaeNEkSNvmS073HQ jzLlY3ATTpbmBlC5KkKKXd zNwhYhD4j7L8Ey5SSYuhV9 WwW5IseRok dGQ+EG09vj74L9NzCktiNd a3JICzFAV6wTT2lW9yAVZe KUsoh4F7aMO4I8SqulNnoo 9pg5deTNLp ULslM92ggWZne8D5AFOccK K9FZZnyEhtDwHszQ06Oda+ LQMplIhnu9NfSifey5cos9 tdqBq5FhMh XEIomwPeoOjfJIO7d3NnDh 11S23fXMhxUPIpRYPiFZTk HYSwbKvlwg4zrM6rDb4+PG VuzVH7cIP5 jA8sMxKeEyB7KCrhG505Gb GfvRYrTgish5azc0iuzLt2 XtSrQHJfzgRunRttFHN9e3 KcBg41S6Ea jWcvd1LfEqf8iu48eKKqu9 L8zEC9U4FnXYOlstrprWGx cBhdOB3lOVBllerpYMHxlF 7xTOUhV9b3 HoJwMjD1CUlbN5AfcjB3FG GslDFbSITahSPWsY9roedy w1nyqpruEgKmUWReDBn6AU i3RKMffHiq VrDySXQ6OzL5YAV6nSIvbB 1zlCjmaybuoA1kUns+UGh5 h8iswVEsJT4xaTX9PK18WN 86uNKsd6S8 vRG0X4CfVVPacuypkaqqrK N7SCJyLELzoD99Ce4ggEbf Bu8cDKVqZYL9EEEtoZRbR1 MohF4wYmYs DLLhTBVsJ2WltIKiHPfmW7 86FQkkCeC8BGYrsuXuI3Qq ILLwpKbyUpK3z6Y6Zy1FCF 58LV42AX90 yOJun5H2vZO3C8CrRNObly gemchscEG8XYIuJSRqjH19 Dc1muRwuKi0ySYPuBCZ8AG OojXSuC2Dg qE2mCjCiZBTjGIIeN1YeyJ MgBMufL276MCjyRyK6RWEc odPhH1FeOUOsgJpzQcZ4d7 C8Wj3YQy69 XN19CO15fBUpd6T4vMZ4X1 GjPCMkwhnpggnfxBT7OOXq NVJnmU62Pq3baPlzAy0mLV UpQPV7YWIt lFNbJ2WrwT6mGxMrGVXuJY SiR4NguDIeRMlvJ434DCqz TwC8PTGmtfXxE8ByUKGsbY icJcA7r1C7 Ga0WPHclpms4X4DoAamhpK I+YE93OTGtXR48jVUkyALv z6hpmYa3BwJzZIMcRER6eA oeQDhxv9Gi ZXI (more content not included)... [facility] Panel Informationon 03-24 Type of biopsy: tangential [...] taken Amount of lidocaine used: 1.5 cc [facility] [employer] [facility] [employer] Type of biopsy: tangential Informed consent: discussed [...] taken Amount of lidocaine used: 1 cc [facility] [employer] [facility] [employer] Type of biopsy: tangential Informed consent: discussed [...] taken Amount of lidocaine used: 3 cc [facility] [employer] [facility] Coding Summaryon 03-17-2025 Coding Summary HTMLBase 64 YjjkqfzhVDn9zAe+PGhlYW Q+DL9PMMOiM93txMCepK7z D7CPTGhOUnubSBWEJWdENy VwgkApZP6pkXOxJOVy IC8+KH6ySTVnJjpqdJBnl8 G7dMY0K62sqe6hJUuboPJ4 OZIgSmGyyxjlw6ycqCb3HV cuNmluOyBt GFZntZ38AOQ4tK85Cm84zK QbySNtt8dghFs0AzSdHBTs ZEN2fFrnFZwgb9WzFNIoK1 1rgCFjz8L2 PFXchGmcqHDsAmCoyQE0dW 1dXHrfsrwqs5hamyrkExu7 ni52xMNvu0J6vKW4D8Uywa V2QOMfeUGd UdfwvTYYiB4gzhduh4ghla lmEfUsZMSoNSr0KSx1HXMc fOooIzAuOY93LRD9BDUmxr VeN9IiZIVg jXoeNsK8o8B8Ki7SJ0SBLv wbU7JQZXCMXLjqfTT+PC90 ds96S8ZdCmopPhv6SVKqSB N9jOV7bH1a COBzXOpki6W2rJG5H7Opxy Uqhg8ec5ovYDBuZFnaD13a gFGvi0Z3DSWywBA5UAUvfI nyWeYjfB40 Oyc+NPRtnNgcm4HeFdkob1 sjo8zatWc1EeozRDFqxbDs cLjgGOV4c7GoMx9eNGEyvA C8jHT8iJ9d CqYqAjV3SLdiT493BqQiyH CbQkfuZ75kQ4GenOH+PHRy Zuu8GAOpjCqrSX2oT5LqZC RpbmctbGVm gKpaBI9fBJLsyagaVVFdjL 0vBCGmL8l7YoTfWqD6MCzb I7VhWIDwjrkrNh49hY4pIe WjTiF1VJde R7BlupE1TSLpzLDvBPgfCA C9V49vz9P2JJFoUJVqOST3 nNH0vP7gzKxcbmsanKLcdU sgdmVydGlj SHvxNJppG692BUXfxOhfEa NvZGluZyBEYXRlOiAgMDQv MjMvMjAyNTwvdGQ+PHRkIH D8qBnwPWNt uKDcJAbnGy8utTrhgEnvNL 2fDJJjnnpsGVLzgY2wBSGg mHFssXeaPN5rWHVswtdsm8 80LhYkMAK0 XTUmbOWzL2QotA3oZoKyLG ShAKUwL6OnwMMcNBhcL171 YInpCtM0XINtduGxV4ElAD FsaWduOiB0 g4V3Ro9Il4SdivvvZ7ScdK EkTsTcXbvwBUa7O5QzGbcf dHI+BC09GRTbGG85KNe3HH C5hYliEXix BMKbF4OjtT4uOrOpLSRlMX RkOyc+PHRhYmxlIHdpZHRo PTygAXHgCwGolUntLK8qEl 9yZGVyLWNv jNripJMmFtHjz4crAQXuDB xiSW0aeOvwV3HkeZR7YDCw l5c9Ea65Z00hD0PnqHK+PG VoeAN8wBP9 yM2dPxPzUbD7THyqP752Tx AxwJJdYbrws9wko9irwKf7 AmA1IGZjwsSujSqxPTP1i0 XaDi51K50j IHdpZHRoPSIxNSUiIHZhbG felj1okF2qYv4+PGNvbCB3 lVW0lV6iWwDdRgK9MXueG6 49InRvcCIv Opxzs6zxo4jsyIh9ZyQtBA QqruYypFxgOJE1o0VcWa81 X0OwwPwfv7SgNvp6im43tB Lsk3V8bOH0 N4TvNZXrjboyiEFkiXowNR 0gOHIhgiuhICMmnM8jBMTn X9a8DgSiBgO6NVkrE5Gvjk Q5XRGbbOIb AFRprLMPmF2dxligm1uwks tbWhKfXPMqZDo2OQq5ZIKe wBkrLxOkVKE8BxR1DNY5yL QcjS2tqOzw pqfneZ9kAgf+LLU2hDKxjJ PORD3pDuaijFS+PHRkIHN0 wQaxPOvtJLFxsP6tVQQiS1 c6EhAyHdQ7 GFewU4QouiN8YFPdyBYwSK GsyMRRnQ3natsrz5xmpfnc UfKaWNTvPWh3NXp2HYWumN duOiBsZWZ0 RlV9JCL0hAOvcE6egZrmsn vphG9pIpv+QmlydGggRGF0 UDt7V8DtQwu0GGWbxTxwSQ 0ncGFkZGlu Lg4euUkztFpzTJ1wSHCelk ccy248AkAui6veJOBzpFGn YPijQFK0I75og2M2MVJuNI ObRVZ4vJW5 tB0mxBswaunsvBAydCtgtg ZgfOiyJBfhAXigG463EFHa oZngGeIyQYb7F2NzKdt1MI ZaiQiyYM4a dXMtFBtjHo5nnTnmcGddLT 1zROXnhzuld775AuTpe4pm PPBjxUAhARexJPO1F09ge9 A9NSGlDIGd SWW3gPB4mH0zmYffndldtD VmdDsgdmVydGljYWwtYWxp T633VQXriUdwKnDyaRy2N3 DvSzm4BAMo hQwfEF0xtVRjJReiLx7uwH iocGbeJO6jUNQswwtyr144 SpKkm0ebIIBggPTwVIedYF F5N82qq0M1 OCDlHLUvHLD8bBN9sR3leE lnbjogbGVmdDsgdmVydGlj NMcsHGppU428HDQuvWzgHg BhdGllbnQg OKseBNq4W2BgUpfmpXY+PC 87FDSeEV27zGNfzFSds6vw wCg4QoCoKPRwZRV3xHiaUS gro8NuYNUf E92mfFJbl7D3VAGklCgieV ZfUjCzcLE8cU7mVCoklitw b9plwvsjJwvyj3ipmj89qI 17H34nIPmn ZHRoPSIzMCUiIHZhbGlnbj 3izK3qMv8+VCZeqRT8iCY9 yI9oKBXlBvT9MMesV651Da RvcCIvPjxj k6lzy8hoyHs0FmQ5TNOfvw QxtQmvLXO8r8LmUm52G01f IHdpZHRoPSIyMCUiIHZhbG celi5ajJ0c Ii8+NAAqqHU7pST2xW7qBr KrUbS1KVtgQ098IqUudRRh QophZ08pJ2UnsJA+PHRyPj o2PWClbPob BE5ajVKjTCoqMc9jZJA0Iu ZcKtObAVszI8XuBNKiqedk lgbunUK0EYCxVKStrH67Gn 9udDogMTBw tUNJbE5xbiiqy3xxhseeIi XlFPWuRGk7OTj3TCNrlSkt BpXpOEV5BgR2TUO8ePKxcF 1hbGlnbjog tX9uA9GvDVVsdojcOr34uO 7jIvJeHlS1CHypWlz+TUNN ULHJVDDiJLSQFD0AQQKJWD xFTjwvdGQ+ NNJmDJJ9dOfbUSdgLWBpiH 7bKDZmF2p4FoVkLeX0CGkh P5MuOYQglabfIn24mF4dGi XlRhQ3LFiw D0SvccG3KVYxsSQrVVdiVY C8X20tb9C0AFAaGSJnRBA8 yZF5kP5kpOuvthyzoJFpnG sgdmVydGlj ECkxFYhqC598JGZypGfuCi D9YdSiFnF0XLE2I7BeAgx2 VEPdwUhmNR9ygVQpIIaeTi 1yaWdodDog SF9zOMFlaefkPHCuzJ9xJY RseODpvUwbOJ4eVWTnlvid h421AsYfTJP3OMYeqOOqK6 CioH0lUnVm MXFcPCKzR1VozJXrMMmtP0 53TBhlZhO6TPMgquMsN8Mu AJEkbLjdJgS1t5J3Na34Fk BZZWFyczwv dGQ+ZVIyIKB6tBzmEQhmRI PtcS2aCTSzS8k4TmDkHaW8 FRfzA9NgBLFuwgawXr96rD 2rBiBeIqF1 VPslY3AqeqL3GFCcjLUiML hgHGQ7L43ks2D9CBAjNNYs CUO1vCF0lN7szKritkthzV VmdDsgdmVy kWeuVHyxMPuqI950UBXrnT duLs4QOHG4D5ZrAtp3IYTx eFvyLE2uyUQvSQfpFv0gxS sysTksAE6l CEUwjdjfDRKyaL8aAKTyyN YlqWviVW1rRCXrsdmvd391 QvYsVHR0FTHamWShD5NtrV 9yOiAjMDAw GPEyT5QnwMTwCRbfB590SX gsZwM1ZJGyobWrT8HhQAWn qMhcKlX2s2B5Ce5ASRxaS2 HrH9MgoDlo dGQ+XY09tw34L6SkLawzVu k6BENbIYN0zJV2xZ6dPNOy GYqnr9S9gWM1G8NdewCftv 7xx9ihKHYy XTnsG64meXJsf1X0DMIbqQ F9UDBwzSoiVcDzyO09Kxf+ KLZcxXjzo2NzMkcdc8ezy1 hvnBw3TcVy AIThruVveBrrHNN9k8KbHf 27U02kTEisIZMyURUnVPZk OTPgrChzsc1pmX0fCw1+PG BerSC6kJL3 sS0xUcMkMpV3APatS247Lk IrzNWpHeivt5cks3aktYk9 EvEtXZOjdmFxxHeyNRZ6y1 MuDy97E3Lm lUprt4FnNpk9dx62xYIeq5 N0uKN2L7SpMMJigixnzFSm qJulQD1bOTPdrgowBDFovZ 9rJMToQ4w4 TjYaBvE3TDyfK5QbvbG2WQ JrfPNzEGCjpDNQaJ6nyxaj e0zmshzkWsQaWWIhLFw9XE v7LZRwzEcz VxXsNGT3RfK4DXU9iLDmyO 7cgQwywpyoiM6fMir+UGh5 f1ajlECdIF6zqIF4RG10XW 08pREwn0E0 gPE1D5PbFJUoglqftbrenD U6BWRcCHQjuO06Ul8weLuk Ud3iJLRwLTI7LPAalTJnV7 CqzK2nDbBk CFWfTWGnY7LyrEGrKFqlT7 22GVbpJoY1IKLflgMbK8Bl RGKtgTxkCkB6b9Z2Mt4YKG 69VD53AT72 fKWke8I9uMS2G8NqFNRgjb bhalzrnDA9AAGpLUEptK85 Um4ssXpmXi7qTLDsPZZ5HZ JvvFDeA0Cr oX6oXaUmFJCaHFHtP3YwsF VtKZixU953HTnlOjG1PTMd kjYgA0OkKSXnaKfnKiO7h7 I4Xd6KYt72 PG06WB20kBYzv6X4oNU6S3 TjNQYzxvzkqegyzZB7EXHa KOLlbY05Zc9qqJwhZj5jNH OzZEV3AMUk kEPzU9VjdP1dErPcARNqOP JmJ1HftBSkLLhzW470XOuj IsN8OTTtrzTcE1GiSFTerS dyRvD5f0A9 Ue0OLYdiznq0X6VvWuqfsP I+LC27TLChUD97pOUnlFDp e5pcxXf9CaIkYPLhEXR1gD hyAQusw1Cb ZXI (more content not included)... [facility] Consent Formson 03-02-2025 Consent Forms [id number]#1.00 [facility] Outside Recordson 03-02-2025 Outside Records [id number]#1.00 [facility] Telemetry Stripson Telemetry Strips [id number]#1.00 [facility] Anesthesia Noteon 03-01-2025 Anesthesia Note Patient: [...] on: 03/01/2025 12:38 EDT] Leroy Zuñiga DO [facility] Anesthesia Note Patient: OSCAR ESCOTO Age: [...] = 50 mL, 100 mL/hr, IV Piggyback, Lehr Loader Documented Medications Documented Cartia XT 240 mg/24 [...] list: All Problems Arrhythmia / SNOMED CT 5150375439 / Confirmed Hypertension / SNOMED CT 7129565490 / Confirmed Restless leg syndrome / SNOMED CT 93334611 / Confirmed Sleep apnea / SNOMED CT 219362006 / Confirmed, Active Problems (4) Arrhythmia Hypertension Restless leg syndrome Sleep apnea Histories Family History: Breast cancer Mother Bladder cancer Father Procedure history: Total hip replacement (026763461). Tonsillectomy and adenoidectomy (048061557). Hernia (2118935335). Comments: 02/02/2025 13:25 EDT - Cass Bledsoe RN inguinal and umbilical Toe ([id number]). Comments: 02/02/2025 13:26 EDT - Cass Bledsoe RN big toes bilaterally fused Social History [...] % Auto Lymph % 22 % Auto [place] % 7 % Auto Eos % 2.9 % Auto Baso % 0.7 % Neut Abs# 4.6 x103/mcL Lymph Abs# 1.5 x103/mcL [place] Abs# 0.5 x103/mcL Eos Abs# 0.2 x103/mcL [...] NA . Radiology results: ECHO, 2020 wnl. Automation Test Developer: stress ekg 2015 wnl. ECG interpretation: Normal sinus rhythm. Plan [employer] Anesthesiologists (ASA) physical status classification: [...] 03/01/2025 11:0 (more content not included)... Normal [facility] Inpatient Patient Summaryon 03-01-2025 Inpatient Patient Summary [place] [id number] Patient Discharge Instructions Name: OSCAR ESCOTO : 1950 Patient Address: [address] [place] [address] Primary Care Provider: Name: NORTH CHAPIN After you are discharged if you find you have any questions, please, call [phone] ext [phone] to speak to a nurse. [...] alcohol and/or drug addiction problems; contact the [facility] 17/06 Crisis Hotline -Text 4HPPF to 576056. If you received any narcotics, sedation, or [...] business decisions or sign any legal documents [facility] would like to thank you for allowing us to assist you with your healthcare needs. The following includes patient education materials and information regarding your injury/illness. OSCAR ESCOTO has been given the following list of follow-up instructions, prescriptions, and patient education materials: Follow-up Instructions With: Address: When: Nneka Hernandez [address] [place] [phone] Business (1) 2025 10:00 AM Medications During the [...] of you (more content not included)... Normal [facility] MAGR Intraoperative Recordon 03-01-2025 MAGR Intraoperative Record MAGR Intra-Op Record Summary Primary Physician: ENRRIQUE WALDROP DO Finalized Date/Time: 03/01/25 12:04:17 Pt. Name: KALEB OSCARYOUNG ALTMAN /Sex: 1950 MALE Med Rec #: [id number] Physician: ENRRIQUE WALDROP DO Financial #: [id number] Pt. Type: D Room/Bed: / Admit/Disch: 03/01/25 [...] ENRRIQUE WALDROP Christopher J DO Gump RN, Leandra Role Performed Surgeon - Primary Anesthesiologist of Political Cartoonist Record Time In 03/01/25 11:05:00 03/01/25 11:05:00 03/01/25 11:05:00 Time Out 03/01/25 11:57:00 03/01/25 11:57:00 03/01/25 11:57:00 Procedure Arthroscopy Knee(Left) Arthroscopy Knee(Left) Arthroscopy Knee(Left) Last Modified By: Alissa RN, Rupinder Maxwell RN, Rupinder Mohan RN 03/01/25 12:03:50 03/01/25 12:03:50 03/01/25 12:03:50 Entry 4 Entry 5 Case Attendee Felicitas RamosA SOLAR CONSULTANT Berny SOLAR CONSULTANT, Sarah SOLAR CONSULTANT CSFA Role Performed Rotary Surface Grinder Rotary Surface Grinder Time In 03/01/25 11:05:00 03/01/25 11:05:00 Time [...] , Alissa LEOS, Richard Bucio Regina CSFA SOLAR CONSULTANT, ENRRIQUE WALDROP DO, Berny SOLAR CONSULTANT, Sarah GALLAGHER CSFA Last Modified By: Rupinder [...] to positi (more content not included)... [facility] PACU Record [facility] Record Summary Primary Physician: ENRRIQUE WALDROP DO Finalized Date/Time: 03/01/25 12:31:44 Pt. Name: OSCAR ESCOTO/Sex: 1950 MALE Med Rec #: [id number] Physician: ENRRIQUE WALDROP DO Financial #: [id number] Pt. Type: D Room/Bed: / Admit/Disch: 03/01/25 08:45:44 - Institution: PACU Case Times MAGR Entry 1 In PACU I 03/01/25 12:00:00 Discharge from PACU 03/01/25 12:28:00 I Last Modified By: Hannah Abraham RN 03/01/25 12:31:42 Finalized By: Hannah Abraham RN Document Signatures Signed By: Hannah Abraham RN 03/01/25 12:31 [facility] MAGR Postoperative Recordon 03-01-2025 MAGR Postoperative Record MAGR Phase II Record Summary Primary Physician: ENRRIQUE WALDROP DO Finalized Date/Time: 03/01/25 13:26:19 Pt. Name: OSCAR ESCOTO/Sex: 1950 MALE Med Rec #: [id number] Physician: ENRRIQUE WALDROP DO Financial #: [id number] Pt. Type: D Room/Bed: / Admit/Disch: 03/01/25 [...] Signed By: Camden Jones RN 03/01/25 13:26 [facility] MAGR Preoperative Recordon 0 03-01-2025 MAGR Preoperative Record MAGR Pre-Op Record Summary Primary Physician: ENRRIQUE WALDROP DO Finalized Date/Time: 03/01/25 13:12:56 Pt. Name: OSCAR ESCOTO /Sex: 1950 MALE Med Rec #: [id number] Physician: ENRRIQUE WALDROP DO Financial #: [id number] Pt. Type: D Room/Bed: / Admit/Disch: 03/01/25 [...] By: Camden Jones RN 03/01/25 13:12 Normal [facility] Patient Handouton 03-01-2025 Patient Handout Arthroscopic Surgery [...] you for the rest of today. Normal [facility] Progress Note - Nurseon Progress Note - Nurse Spoke with pt and informed him to be at hospital at 0845 and NPO after MN, he verbalizes understanding. [Electronically Signed on: 02/26/2025 09:54 EDT] Miranda Head RN [Verified on: 02/26/2025 09:54 EDT] Tamaub, Sidsel [facility] Coding Summaryon 02-09-2025 Coding Summary HTMLBase 64 DxwlngvqFXj1aSc+PGhlYW Q+VK2CLTOuB88bcHKyyJ6a E5AIWDqBBxmsGFOMZVqFOq CyucGdME4mcVQqHCIp IC8+AR2xLWTaVteldSBrz0 P9vGK6L36zuf8yHEqtjYR1 JEDsBmCttaenb2ceaIe1KJ cuNmluOyBt PYYotJ25OZT2iJ48My87gV ZijNDeb9nwnJw9KlHvXLNx FQZ7hCgkJSgwo4GpSIBxH3 2pqBPhw2F2 DLVmgDhbfNGbNkVhmMJ6uV 2kJCcvpnewq0qpxccpYkg7 nc00gTMsz4K6uNV5D9Ygti V5MWAgeLKw HdakrFPWlN2qveqqu4zfsb nvPdBcXLLrAIj1SBr0QIBu tJefMjWyWQ60NFU2BITdup NcQ0VmCIEi fCjqFjC5c6H4Zv0SU8CIDt icY1WRBLCOHVscmJK+PC90 xm24G8KeXavqSmj6CVHwJQ Y9kNM2yU6x PAFcRRtcm5K7lSB2V1Hzry Epzc6hj9icJXCbPKrsR39u aZOwe7R7TPMpgUR7FGUiaK uhIrEibD15 Oyc+MYDgxNclw2FlRupvz1 bwr2prcCc2MyutCBVpqiPo zKxiAXV9p2GlJt9gPOMihR H1rHR6pH0j FoZiQyB4GPcvT183OxKnsG DoVkuiC05yI5TpaWV+PHRy Tns6XBFekZbwOE8vR5BqED RpbmctbGVm pBxgHE0gPIBmoqcvIPGwkH 6pABQuG2t3YzOyOyG0XGcf K8ReWAXxtltjAj11sW8gPl VuGeW6KXxt U4HjdvV9XAZauCUaIPfmEH H5A43xk1F8LRUnHRLkLVK4 rSX6lO8szHxkmfhicFQjjP sgdmVydGlj XPqcGNxfY220WVAhhMboRv NvZGluZyBEYXRlOiAgMDMv MTgvMjAyNTwvdGQ+PHRkIH L9wLdoCSEq oEMeECfeDu9mvImxeWdbKU 5cMCZnsjmiELUriS0eBPJb jIMbaZstVI6cUHSgglcux1 02RrKjPAE8 JEQysCNuK7BdlS2fAzGiFN CmFAKjQ6BusAWbYEccF635 PDdmPxH4TSJkuhExO7DhFM FsaWduOiB0 q8U4Lz3Hw7MtctnoW8MleW SlDcNxWtspYFf6S7BjHxot dHI+OC06RAShXE60ISq0RU L8qOxgPHty LHBzW0ZadJ7rBnWvMSXhNA RkOyc+PHRhYmxlIHdpZHRo TSyyXBSfVmTxgGiwKK9nYv 9yZGVyLWNv eGavaAXdIqWmx4dqVXUwQY brNK4ijWtzB9BpqJX5FQAq s9e8Wq52W36dR0UwmKL+PG OdfDT9vMP2 oI8eGjCxAsH2FPksG216Tw MmbOIjWdtnj9hgk0pjxOy9 SoG8DIPjxwYqyVfhDNP7x2 JyWa76D26q IHdpZHRoPSIxNSUiIHZhbG nkvl7ryR1rOp5+PGNvbCB3 iZO1jZ5oUaAsEtO7GAdlU1 49InRvcCIv Njsiv0oit0nxpHl7GcFzRZ RrgtMjmKidKQF2y5VvCc57 L6MbfNztq5NyRvk0bv99aO Zcy6D9sBC9 G7RgLTYmeknidWCkoAmcBJ 3dDGRwqqenUNHsaK7gXQVt B9k6NoQdBvY4KCxvM5Gjrr Q6UBJwpYKj XPEhrDKJxC3rpisgi7pcpx efLbXoHCUzJVf5DHz1YILu nConNaGwNYN1YoC4PBJ8hP OpvB3tiEko qmvdsZ0mHor+ISI2mQOmoQ FYHC8yRcxtkJU+PHRkIHN0 gSwzLBufNPRtkV8hYLJgM4 x7VkArHdH2 FYrwH1UkecJ2PKTcjPKaKJ WvaRVJkG1jemxxe6ijccqx OiBkDWIfVSe9RWn6HFKmeO duOiBsZWZ0 RfF1KIE0nNRvdI7lcLckys wfcF4mZzm+QmlydGggRGF0 MWl8M2KcNoc8RSHecAvvTY 0ncGFkZGlu Uw5gfXluaEseGR8uLFDwlh gjx599AjKty5fkGHUkpZQg AWcfOFM8L02yd3F3QFLuBS XvVKK4nYG6 wJ0tqZulkeoypMQonNsihf KstScxVArjCIesV928MIPr jSifScNzNJi4C3QbXhr4UE HfwMdrNT9a pLZjZIbwTu9lyKexjAbtSC 4jMMLornszu189VoAdc6vw EXFyfTWkIDllXHK3Y08bp8 M8AFJwNIOd SLV3rYU6nL3kwJzmapgvpN VmdDsgdmVydGljYWwtYWxp F145CCWqfOieZaJayEp6F0 IeWuj7QQQa gCivSV1rvVTxWKuhOw6ztD ghfStwPO7pYTRlwerem086 XdZxc5pgHHRvqNZhOFkkVO S0C19eh1V7 VEVyQXCsNJV4sIK2kG7tcF lnbjogbGVmdDsgdmVydGlj SZctFQihU971NZKaaMhgHp BhdGllbnQg BTjsBZh9B2HmTpgivQM+PC 95HNWbXX15mDTdyFYsg3sw nRk3VfHzWSJeEXZ4iKmiHX gdw3KkEENn M96qzWFzc6E2HRUdhRoswT BaPpEftNE9tD4jDHvljrtd l9ttfumuCdccm9bjsw43iA 05E16iYBfz ZHRoPSIzMCUiIHZhbGlnbj 0pvO9uPa0+BMMbiAI4qAZ8 zC3yLWOeOzQ3KNiyJ446Sw RvcCIvPjxj t8isv2hquDz7ZjZ0IXTfnv RdhAiqCJK0s2HiEw82E78n IHdpZHRoPSIyMCUiIHZhbG asma0uhR3e Ii8+AUFptNP8sYE8rQ7jNw KvGnG1RQkgG176RuHlsIRd TfxdK72tD3AihOL+PHRyPj p9HKLjwEic RY2nmKWsFXmrVi0kQCX1Ca MzGnEyUSsxP6KwXQQarffk njehdUB5GLByIBKsqI00Ao 9udDogMTBw tQAQcT8zchpar1olsdqqOg SpJAWpAXu3UAe9SBDfhEen MbFwVTN6EpO1HZR7iCGkeS 1hbGlnbjog xG9eZ8MjMRFwbrfxBh42uM 0aKqCsGuX8RAwqUzx+TUNN YNCEKKHsVURRHU4YWCSVIK xFTjwvdGQ+ PJKsWPT9vNqqYImhOPMhzR 0oFUUxK1q1YhBmHiF6LNzs Y7KiCRTfuifhYb73mB5vGo CnNrD7YFac H3ErtlL0GQZuwTWmRYdzAP R5R62pe7H5BZGrJNQtMFR6 oIM9vL9ckMjdrukqoXIoyN sgdmVydGlj GCseHPboW599FIDxaEzvXm S4NcMxLgV2OGB3E3WeKvz3 HTCmlNasZW5jkWXfOSxySu 1yaWdodDog AL7kNCEdhkzdHNGbwV6mAJ LvmBPyfOqvQE6eIYWoaxmh y116SdHtXNX2UTVtsVGxK1 YavE1oCrOy VEAdECAxV8NbaRLsERoiE7 20IFmyBeT4XLZgjjQgN3Aq RDCxdVogQkJ3o9P4Xd20Gw BZZWFyczwv dGQ+SSTbDAE0nIfcSJqhGZ KsbA3uLTGtO1y4PjQxEgN6 HEvjY3PzYQOdgmamNj22pN 4bSeOdDlN3 ZVijO4TzodK8KLLncRRvSE sqUFQ6U56ic8S9LHOqTRAc PGY6mGH3hP0biMatknfjkI VmdDsgdmVy kZnoVMtqKAmdP148FNJgwJ twUw7KTKB1I5VjIwi5LPUc iIbnWG9ajCDzXKhiNf5qvU qrtMnjDQ2o PSYnynooBCPruW3oDOIufJ XhdXkoAA0nIXEnhmvuq588 HjExXBP4VIRnzVDiZ1KkrM 9yOiAjMDAw LTDbG7CvyPTxJBduW166RY rnAtA3ZVUjpsHaB1YuFCMg iJeeQyZ3g6U4Ml8SVImmwG Q+VJ73im10 N3UeHmojGqy8VYJbYCV2wZ L9lR9aHXKfAPsho0O6vUR2 P5LrvfHpdh8xj6abILHoRW quN03fmXWn b0L4QXTmpZA8OLFdhCilKa QlkR82Pub+TKKevNaek7Ao Lfune9jyc8aigVb9StDwOH IgdmFsaWdu RIE8q0GcCy00M86oLUzbWV OgIMSbFIYrGIDykRhrdt2d fR3xAu1+WDBaoBL1xLX1sZ 3pSoXvEeH3 DUlfN985DnSmpMJfApxqw7 oxt5ioeIh1BqRnJJItahIk xFbaIGQ5u1BrBx82D3DhvK rkw2FsQuv7 ly36mOFws0O2tHG7H8EbYH LzrtbhpWJxkZjvGH4qTTDf igycCQOprQ4pXAWcU6f1Hh PfXfP3QUxf T9RxtdF8VAPyoQXeSVEucS RTkD0rkxemp4hbehyzLhMy RNWbOMi9AYy6KVSijTusGa RsFKF1KkB0 QJK7lXVcnF1tjNrrwmykjE 9wOyc+MXt8d2owmMVyVF5c bTG5PX79VI18vDOrl0B4iI X7L8OeWDPb ysycpezatIX8TKWcZWIxpR 30Xx4mxBifEi8dXLIvECZ9 SNVlqAHfQ3AvpO1iEfQqWJ QlTVEqG5Ej vHYcHSjdM626TRjyDnQ5VB XyqsKvS0AjWOOzqGgdImB0 t0W5Gw6IJC44PM67DR12cW Xdu8E6xJT2 R7WlRORhdtptdzdnxRA1VR PtSLLxhD74Ob5tqAxcBb6w YYJuXJW7HJXnhTVhA0SaaZ 9yOiAjMDAw XWXxR1JntYVwWNnpV492JP pzGlG5WHXkljKmK6JoUIZe eOeuJsB8f9H6Ag8ZRy36OJ 31LY86yAWx j4X8iKK9I8OaHRVfgumccn qijAR9VRAxPLKrgU01Vv7l yCqvEw7nBWZyMRU3OAEpbT IdG9KhfK9z DzLoYPEySFZoM6XzzDXxVF owQ095CLwmBcX5KEDogiTr M2KcHMYycCvsWxI0o9V9Iz 9DETaqfum8 D4IyZipbaED+SW29HLKbWF 68zDMzuJXrm4odqYe3DmHr BAWbAJN7uUedFVswg1SjJB YlU19kcSAl c2U (more content not included)... [facility] Progress Note - Nurserae 01-23 Progress Note - Nurse Dr Ovalles reviews pt chart and no new orders were received. [Electronically Signed on: 02/04/2025 12:38 EDT] Miranda Head RN [Verified on: 02/04/2025 12:38 EDT] Miranda Head RN [facility] 3602-03-2025 36 Patient's says his BP is higher AFTER he takes lisinopril. They are leaving tomorrow to go to [place] for 2 weeks. I think they question [...] of his BP without, that was ok. [facility] 36 PER BRENNAN STAY ON 5 MG [facility] .Auto Diff 02-02-2025 Auto [place] % 7 % Normal 12-06 [facility] Comment on above: Performed By: #### 7 [id number], [id number], [id number] ####[facility] (DEFAULT)[address] [place] [address] 55949 Baso Abs# 0.0 x10 Normal 0.0-0.2 [facility] Comment on above: Performed By: #### 7 021251, [id number], [id number] ####[facility] (DEFAULT)[address] [place] [address] 84926 Basophils/100 WBC (Bld) 0.7 % Normal 0.2-2.0 [facility] Comment on above: Performed By: #### 7 356116, [id number], [id number] ####[facility] (DEFAULT)[address] [place] [address] 59786 Eos Abs# 0.2 x10 Normal 0.0-0.4 [facility] Comment on above: Performed By: #### 7 266053, [id number], [id number] ####[facility] (DEFAULT)[address] [place] [address] 54086 Eosinophils/100 WBC (Bld) 2.9 % Normal 0.9-4.0 [facility] Comment on above: Performed By: #### 7 336977, [id number], [id number] ####[facility] (DEFAULT)[address] [place] [address] 06476 Lymph Abs# 1.5 x10 Normal 1.3-2.9 [facility] Comment on above: Performed By: #### 7 684169, [id number], [id number] ####[facility] (DEFAULT)[address] [place] [address] 02373 Lymphocytes/100 WBC (Bld) 22 % Normal 14-48 [facility] Comment on above: Performed By: #### 7 080974, [id number], [id number] ####[facility] (DEFAULT)[address] [place] [address] 13128 [place] Abs# 0.5 x10 Normal 0.0-0.8 [facility] Comment on above: Performed By: #### 7 459555, [id number], [id number] ####[facility] (DEFAULT)[address] [place] [address] 06193 Neut Abs# 4.6 x10 Normal 1.5-9.2 [facility] Comment on above: Performed By: #### 7 311304, [id number], [id number] ####[facility] (DEFAULT)[address] [place] [address] 00396 Neutrophils/100 WBC (Bld) 67 % Normal 44-88 [facility] Comment on above: Performed By: #### 7 452513, 45279420, [id number] ####[facility] (DEFAULT)[address] [place] [address] 99613 BMP Standardon 02-02-2025 eGFR Non AA 58 mL/min/1.73m2 Invalid Interpretation Code [facility] Comment on above: Performed By: #### 7 909148, [id number], [id number] ####[facility] (DEFAULT)[address] [place] [address] 91517 eGFR AA >60 Invalid Interpretation Code [facility] Comment on above: Performed By: #### 7 301425, [id number], [id number] ####[facility] (DEFAULT)[address] [place] [address] 18082 Anion gap [Moles/Vol] 12.6 mmol/L Normal 5.0-19.0 [facility] Comment on above: Performed By: #### 7 875988, [id number], [id number] ####[facility] (DEFAULT)[address] [place] [address] 36794 Calcium [Mass/Vol] 9.3 mg/dL Normal 8.9-10.[address] [facility] Comment on above: Performed By: #### 7 717607, [id number], [id number] ####[facility] (DEFAULT)[address] [place] [address] 08354 Chloride [Moles/Vol] 105 mmol/L Normal 101-111 [facility] Comment on above: Performed By: #### 7 687804, 87125010, [id number] ####[facility] (DEFAULT)[address] [place] [address] CO2 [Moles/Vol] 24 mmol/L Normal 21-32 [facility] Comment on above: Performed By: #### 7 550633, 43804917, [id number] ####[facility] (DEFAULT)[address] [place] [address] 52057 Creatinine [Mass/Vol] 1.23 mg/dL Normal 0.90-1.30 [facility] Comment on above: Performed By: #### 7 980225, 18094666, [id number] ####[facility] (DEFAULT)[address] [place] [address] 93545 Glucose [Mass/Vol] 103.0 mg/dL Normal 74.0-118.0 [facility] Comment on above: Performed By: #### 7 259875, 10392428, [id number] ####[facility] (DEFAULT)[address] [place] [address] 75563 Osmolality 280 mOsm/L Invalid Interpretation Code [facility] Comment on above: Performed By: #### 7 576368, 17007629, [id number] ####[facility] (DEFAULT)[address] [place] [address] 84002 Potassium [Moles/Vol] 3.6 mmol/L Normal 3.6-5.1 [facility] Comment on above: Performed By: #### 7 769955, 36569814, [id number] ####[facility] (DEFAULT)[address] [place] [address] 35184 Sodium [Moles/Vol] 138.0 mmol/L Normal 136.0-144.0 [facility] Comment on above: Performed By: #### 7 952036, 25765020, [id number] ####[facility] (DEFAULT)[address] [place] [address] 01394 Urea nitrogen [Mass/Vol] 23 mg/dL Normal 8-26 [facility] Comment on above: Performed By: #### 7 807500, 17499064, [id number] ####[facility] (DEFAULT)[address] [place] [address] 74459 Urea nitrogen/Creatinine [Mass ratio] 18.6 mg/mg High 4.6-16.2 [facility] Comment on above: Performed By: #### 7 248964, [id number], [id number] ####[facility] (DEFAULT)[address] [place] [address] CBC w/ Auto Diffon Erythrocyte distribution width (RBC) [Ratio] 14.5 % Normal 11.5-15.0 [facility] Comment on above: Performed By: #### 7 042767, [id number], [id number] ####[facility] (DEFAULT)[address] [place] [address] Hematocrit (Bld) [Volume fraction] 42.0 % Normal 34.8-51.9 [facility] Comment on above: Performed By: #### 7 273822, 91471701, [id number] ####[facility] (DEFAULT)[address] [place] [address] Hemoglobin (Bld) [Mass/Vol] 14.4 g/dL Normal 11.8-17.7 [facility] Comment on above: Performed By: #### 7 071354, 85420388, [id number] ####[facility] (DEFAULT)[address] [place] [address] Man Diff? Auto Invalid Interpretation Code [facility] Comment on above: Performed By: #### 7 193569, 07948375, [id number] ####[facility] (DEFAULT)[address] [place] [address] MCH (RBC) [Entitic mass] 31 pg Normal 24-34 [facility] Comment on above: Performed By: #### 7 785421, 95733712, [id number] ####[facility] (DEFAULT)[address] [place] [address] 78031 MCHC (RBC) [Mass/Vol] 34 g/dL Normal 26-37 [facility] Comment on above: Performed By: #### 7 [id number], [id number], [id number] ####[facility] (DEFAULT)[address] [place] [address] MCV (RBC) [Entitic vol] 89 fL Normal 81-100 [facility] Comment on above: Performed By: #### 7 [id number], [id number], [id number] ####[facility] (DEFAULT)[address] [place] [address] Platelet 233 x10 Normal 138-427 [facility] Comment on above: Performed By: #### 7 [id number], [id number], [id number] ####[facility] (DEFAULT)[address] [place] [address] 26597 Platelet mean volume (Bld) [Entitic vol] 9.5 fL Normal 6.3-10.2 [facility] Comment on above: Performed By: #### 7 [id number], [id number], [id number] ####[facility] (DEFAULT)[address] [place] [address] 06668 RBC 4.71 x10 Normal 3.70-5.30 [facility] Comment on above: Performed By: #### 7 [id number], [id number], [id number] ####[facility] (DEFAULT)[address] [place] [address]121 WBC 6.9 x10 Normal 3.5-10.5 [facility] Comment on above: Performed By: #### 7 [id number], [id number], [id number] ####[facility] (DEFAULT)[address] [place] [address] Telephoneon 02-02-2025 Telephone [id number] KalebOscar 1950 M Date Provider Department Center 02/02/2025 [facility] DIA[facility] Family History Problem Relation Age of Onset Other Mother Coronary artery disease Mother Other Father Family Status - Relation Status Age at Mother Father Normal [facility] 36on 12-24-2024 38 Patient called [...] keep an eye on his BP. Normal [facility] Telephoneon 12-11-2024 Telephone [id number] Kaleb,Oscar Hines 1950 M Date Provider Department Center 12/11/2024 TRINITY DIAZ KATHARINA Wu Family History Problem Relation Age of Onset Other Mother Coronary artery disease Mother Other Father Family Status - Relation Status Age at Mother Father Normal [facility] XR Knee - bilateral AP W sta ndingon 11-11-2024 Imaging Result: Standing AP shows no gross evidence of major arthritic process, overall anatomic alignment appeared to be well preserved. There was no acute bony process including but not limited to fracture and/or dislocation. Impression: no gross evidence of major arthritic process or structural damage bilateral knees [facility] XR Knee - bilateral AP W sta ndingOrdered By: Jr. Waldrop on 11-11-2024 [facility] Healthcare Work Phone: Office Visiton 11-10-2024 Follow-up visit [id number] Oscar Escoto 1950 M Date Provider Department Center 11/10/2024 ROXANNE MARTINEZ KATHARINA Wu Family History Problem Relation Age of Onset Other Mother Coronary artery disease Mother Other Father Family Status - Relation Status Age at Mother Father Level of Service:[address]76 [place] OFFICE/OUTPATIENT ESTABLISHED LOW MDM 20 MIN Normal [facility] No Panel Informationon 11-09 Mary [...] discussed. Consent was given by the patient. [facility] XR Knee - bilateral AP W sta ndingon 11-09-2024 Radiology Study observation (narrative) [facility] Ambulatory Visit Summaryon 1 12-12-2023 Ambulatory [...] Natali IRAHETA MD Where: [facility] [address] [place] [address]- You Need to Schedule the Following Appointments Follow Up with Natali IRAHETA MD, URL When: Comments: 6 mos Where: [facility] [address], [place] [address]- [phone] Medications What How Much When Instructions New ciprofloxacin (Cipro 500 mg Tab) 1 Tablets By Mouth Every 12 hours Duration: 30 Days Pickup at [facility] Unchanged finasteride (finasteride 5 mg Tab) 1 [...] physician if questions or concerns Pharmacy Information [facility]: [address] [place], [place] [id number] [phone] Allergies No Known Medication Allergies Problems Ongoing - Any problem that you are currently receiving treatment for. 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 Epididymitis Family history of kidney cancer Hx of half-way use of blood thinners Impotence Organic impotence [...] than (more content not included)... Normal [facility] Urology Office/Clinic Noteon 10-12-2024 Urology Office/Clinic [...] Natali Gonzalez, URL [facility] [address] , [place] [address]- [phone] Additional Instructions: 6 mos w/ PSA Patient Education Epididymitis I, Katheryn Fernandez, personally scribed for Dr. Iraheta on 10/12/2024 16:13:25. . Documentation recorded by the Katheryn del cid, accurately reflects the services(s) I performed and decisions made by me. Authenticated by Dr. Iraheta on 10/12/2024 16:15:49. Problem List/Past Medical History Ongoing 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 Epididymitis Family history of kidney cancer Hx of half-way use of blood thinners Impotence Organic impotence [...] History Alco (more content not included)... Normal [facility] Comment on above: Result Comment: Elec tronically [...] PM Normal [facility] No Panel Informationon 08-13 Type of biopsy: [...] taken Amount of lidocaine used: 1.0 cc [facility] Superficial Wound Cultureon 03-18-2023 Superficial Wound [...] RESISTANT TO ALL B-LACTAM DRUGS. PERFORMED BY: [place] [id number] PATHOLOGIST DATABASE REPORTING CONSULTANT ISABELLA MCKEON M.D. Normal [facility] Comment on above: Performed By: #### C USUP #### [place] [id number] [facility] ECHOCARDIO M/2D COMPLETEon 0 03-12-2023 ECHOCARDIO M/2D COMPLETE Patient: OSCAR ESCOTO Exam Date: 03/12/2023 : 1950 Gender:M Ordering : DR NORTH CHAPIN . Admission #: [id number] Family : ROXANNE AMIN MD Order #: [id number] CLICK HERE TO VIEW EXAM ECHOCARDIOGRAM REPORT [...] Solorio M.D. on 03/12/2023 at 18:41 Normal [facility] US CAROTID ART [...] MARÍA BRYSON Date: 2023-03-12 15:01 Normal [facility] CBC AUTO DIFFon 03-06-2023 BASO # 0.1 103/ul Normal 0.0-0.1 [facility] Comment on above: Performed By: #### C BC #### [facility] [address] [place] [address] Dr. Sanjuana Kasper Basophils/100 WBC (Bld) 0.9 % Normal 0.2-2.0 [facility] Comment on above: Performed By: #### C BC #### [facility] [address] [place] [address] Dr. Sanjuana Kasper EO # 0.3 103/ul Normal 0.0-0.7 [facility] Comment on above: Performed By: #### C BC #### [facility] [address] [place] [address] Dr. Sanjuana Kasper Eosinophils/100 WBC (Bld) 5.0 % Normal 0.9-7.0 [facility] Comment on above: Performed By: #### C BC #### [facility] [address] [place] [address] Dr. Sanjuana Kasper Erythrocyte distribution width (RBC) [Ratio] 13.5 % Normal 11.0-15.0 [facility] Comment on above: Performed By: #### C BC #### [facility] [address] [place] [address] Dr. Sanjuana Kasper Hematocrit (Bld) [Volume fraction] 41.9 % Critically low 42.0-54.0 [facility] Comment on above: Performed By: #### C BC #### [facility] [address] [place] [address] Dr. Sanjuana Kasper Hemoglobin (Bld) [Mass/Vol] 13.9 g/dL Critically low 14.0-18.0 [facility] Comment on above: Performed By: #### C BC #### [facility] [address] [place] [address] Dr. Sanjuana Kasper IG # 0.02 10e3/ul Normal 0.00-0.03 [facility] Comment on above: Performed By: #### C BC #### [facility] [address] [place] [address] Dr. Sanjuana Kasper IG % 0.3 % Normal 0.0-0.5 [facility] Comment on above: Performed By: #### C BC #### [facility] [address] [place] [address] Dr. Sanjuana Kasper LYMPH # 1.4 103/ul Normal 1.2-3.8 [facility] Comment on above: Performed By: #### C BC #### [facility] [address] [place] [address] Dr. Sanjuana Kasper Lymphocytes/100 WBC (Bld) 23.8 % Normal 20.5-60.0 [facility] Comment on above: Performed By: #### C BC #### [facility] [address] [place] [address] Dr. Sanjuana Kasper MANUAL DIFF REQ NO Normal [facility] Comment on above: Performed By: #### C BC #### [facility] [address] [place] [address] Dr. Sanjuana Kasper MCH (RBC) [Entitic mass] 29.5 pg Normal 25.9-34.0 [facility] Comment on above: Performed By: #### C BC #### [facility] [address] [address] [address] Sanjuana Kasper MCHC (RBC) [Mass/Vol] 33.2 g/dL Normal 29.9-35.2 [facility] Comment on above: Performed By: #### C BC #### [facility] [address] [address] [address] Sanjuana Kasper MCV (RBC) [Entitic vol] 89.0 fL Normal 80.0-94.0 [facility] Comment on above: Performed By: #### C BC #### [facility] [address] [address] [address] Sanjuana Kasper MONO # 0.4 103/ul Normal 0.3-0.8 [facility] Comment on above: Performed By: #### C BC #### [facility] [address] [place] [address] Dr. Sanjuana Kasper Monocytes/100 WBC (Bld) 7.1 % Normal 1.7-12.0 [facility] Comment on above: Performed By: #### C BC #### [facility] [address] [place] [address] Dr. Sanjuana Kasper NEUT # 3.7 103/ul Normal 1.4-6.5 [facility] Comment on above: Performed By: #### C BC #### [facility] [address] [place] [address] Dr. Sanjuana Kasper Neutrophils/100 WBC (Bld) 62.9 % Normal 43.0-75.0 [facility] Comment on above: Performed By: #### C BC #### [facility] [address] [place] [address] Dr. Sanjuana Kasper Platelet mean volume (Bld) [Entitic vol] 10.6 fL Normal 9.5-13.5 [facility] Comment on above: Performed By: #### C BC #### [facility] [address] [place] [address] Dr. Sanjuana Kasper PLT 259 103/ul Normal 150-450 [facility] Comment on above: Performed By: #### C BC #### [facility] [address] [address] [address] Sanjuana Kasper RBC 4.71 106/ul Normal 4.70-6.10 [facility] Comment on above: Performed By: #### C BC #### [facility] [address] [place] [address] Dr. Sanjuana Kasper WBC 5.8 103/ul Normal 4.0-11.0 [facility] Comment on above: Performed By: #### C BC #### [facility] [address] [place] [address] Dr. Sanjuana Kasper GLYCOHEMOGLOBIN A1Con 2022 ADA RECOMMENDATION SEE BELOW Normal [facility] Comment on above: Result Comment: ADA RECOMMENDED LIMIT 4.0 - 6.0 ADA THERAPEUTIC TARGET < 7.0 ACTION SUGGESTED > 7.0 Performed By: #### A 1C #### [facility] [address] [place] [address] Dr. Sanjuana Kasper Glucose [Mass/Vol] 108 mg/dL Normal [facility] Comment on above: Performed By: #### A 1C #### [facility] [address] [place] [address] Dr. Sanjuana Kasper HbA1c (Bld) [Mass fraction] 5.4 % Normal 4.5-6.2 [facility] Comment on above: Performed By: #### A 1C #### [facility] [address] [place] [address] Dr. Sanjuana Kasper LIPID PROFILEon 03-06-2023 CHOL-HDL RATIO NORM SEE BELOW Normal [facility] Comment on above: Result Comment: 3.3 - 4.4 LOW RISK 4.4 - 7.1 AVERAGE RISK 7.1 - 11.0 MODERATE RISK >11.0 HIGH RISK Performed By: #### T SH, LIPID, BMP, LIVER #### [facility] [address] [place] [address] Dr. Sanjuana Kasper Cholesterol [Mass/Vol] 192 mg/dL Normal <=200 [facility] Comment on above: Performed By: #### T SH, LIPID, BMP, LIVER #### [facility] [address] [place] [address] Dr. Sanjuana Kasper Cholesterol in HDL [Mass/Vol] 61 mg/dL Critically high 40-60 [facility] Comment on above: Performed By: #### T SH, LIPID, BMP, LIVER #### [facility] [address] [address] [address] Sanjuana Kasper Cholesterol in LDL [Mass/Vol] 122.2 mg/dL Normal [facility] Comment on above: Performed By: #### T SH, LIPID, BMP, LIVER #### [facility] [address] [address] [address] Sanjuana Kasper Cholesterol.total/Cho lesterol in HDL [Mass ratio] 3.1 {ratio} Normal [facility] Comment on above: Performed By: #### T SH, LIPID, BMP, LIVER #### [facility] [address] [address] [address] Sanjuana Kasper HDL NORMAL > or = 60 mg/dl - LO W CARDIOVASCULAR RISK <40 mg/dl - HIGH CARDIOVASCULAR RISK Normal [facility] Comment on above: Performed By: #### T SH, LIPID, BMP, LIVER #### [facility] [address] [address] [address] Sanjuana Kasper LDL CALC NORMAL SEE BELOW Normal [facility] Comment on above: Result Comment: <100 mg/dl OPTIMAL 100 - 129 mg/dl NEAR OR ABOVE OPTIMAL 130 - 159 mg/dl BORDERLINE HIGH 160 - 189 mg/dl HIGH >190 mg/dl VERY HIGH Performed By: #### T SH, LIPID, BMP, LIVER #### [facility] [address] [address] [address] Sanjuana Kasper Triglyceride [Mass/Vol] 44 mg/dL Normal <=150 [facility] Comment on above: Performed By: #### T SH, LIPID, BMP, LIVER #### [facility] [address] [address] [address] Sanjuana Kasper VLDL CALC 8.8 mg/dL Normal [facility] Comment on above: Performed By: #### T SH, LIPID, BMP, LIVER #### [facility] [address] [address] [address] Sanjuana Kasper LIVER PROFILEon 03-06-2023 Albumin [Mass/Vol] 3.6 g/dL Normal 3.4-5.0 [facility] Comment on above: Performed By: #### T SH, LIPID, BMP, LIVER ####[facility] [address] [place] [address]Dr. Sanjuana Kasper Albumin/Globulin [Mass ratio] 1.0 {ratio} Normal [facility] Comment on above: Performed By: #### T SH, LIPID, BMP, LIVER ####[facility] [address] [place] [address]Dr. Sanjuana Kasper ALP [Catalytic activity/Vol] 91 U/L Normal 46-116 [facility] Comment on above: Performed By: #### T SH, LIPID, BMP, LIVER ####[facility] [address] [place] [address]Dr. Sanjuana Kasper ALT [Catalytic activity/Vol] 28 U/L Normal 16-63 [facility] Comment on above: Performed By: #### T SH, LIPID, BMP, LIVER ####[facility] [address] [place], [place] [address]Dr. Sanjuana Kasper AST [Catalytic activity/Vol] 16 U/L Normal 15-37 [facility] Comment on above: Performed By: #### T SH, LIPID, BMP, LIVER ####[facility] [address] [place] [address]Dr. Sanjuana Kasper BILI, CONJUGATED 0.1 mg/dL Normal 0.0-0.2 [facility] Comment on above: Performed By: #### T SH, LIPID, BMP, LIVER ####[facility] [address] [place] [address]Dr. Sanjuana Kasper Bilirubin [Mass/Vol] 0.4 mg/dL Normal 0.2-1.0 [facility] Comment on above: Performed By: #### T SH, LIPID, BMP, LIVER ####[facility] [address] [place] [address]Dr. Sanjuana Kasper Globulin (S) [Mass/Vol] 3.6 g/dL Normal [facility] Comment on above: Performed By: #### T SH, LIPID, BMP, LIVER ####[facility] [address] [place] [address]Dr. Sanjuana Kasper Protein [Mass/Vol] 7.2 g/dL Normal 6.4-8.2 [facility] Comment on above: Performed By: #### T SH, LIPID, BMP, LIVER ####[facility] [address] [place] [address]Dr. Sanjuana Kasper PROF CHEM 8 (BAS METB)on Anion gap [Moles/Vol] 12.2 mmol/L Normal [place] Comment on above: Performed By: #### T SH, LIPID, BMP, LIVER ####[facility] [address] [place], [place] [address]Dr. Sanjuana Kasper Calcium [Mass/Vol] 9.1 mg/dL Normal 8.5-10.1 [facility] Comment on above: Performed By: #### T SH, LIPID, BMP, LIVER ####[facility] [address] [place] [address]Dr. Sanjuana Kasper Chloride [Moles/Vol] 106 mmol/L Normal 98-107 [facility] Comment on above: Performed By: #### T SH, LIPID, BMP, LIVER ####[facility] [address] [place] [address]Dr. Sanjuana Kasper CO2 [Moles/Vol] 26.9 mmol/L Normal 21.0-32.0 [facility] Comment on above: Performed By: #### T SH, LIPID, BMP, LIVER ####[facility] [address] [place] [address]Dr. Sanjuana Kasper Creatinine [Mass/Vol] 0.98 mg/dL Normal 0.70-1.30 [facility] Comment on above: Performed By: #### T SH, LIPID, BMP, LIVER ####[facility] [address] [place] [address]Dr. Sanjuana Kasper EGFR-AF [place]CAIR[place] ISLANDER >60 Normal >=60 [facility] Comment on above: Performed By: #### T SH, LIPID, BMP, LIVER ####[facility] [address] [place] [id number]. Sanjuana Kasper EGFR-NON AF [place] ISLANDER >60 Normal >=60 [facility] Comment on above: Performed By: #### T SH, LIPID, BMP, LIVER ####[facility] [address] [place], [place] [address]Qa. Sanjuana Kasper Glucose [Mass/Vol] 94 mg/dL Normal 74-106 [facility] Comment on above: Performed By: #### T SH, LIPID, BMP, LIVER ####[facility] [address] [place] [phone]. Sanjuana Kasper Potassium [Moles/Vol] 4.1 mmol/L Normal 3.5-5.1 [facility] Comment on above: Performed By: #### T SH, LIPID, BMP, LIVER ####[facility] [address] [place] [phone]. Sanjuana Kasper Sodium [Moles/Vol] 141 mmol/L Normal 136-145 [facility] Comment on above: Performed By: #### T SH, LIPID, BMP, LIVER ####[facility] [address] [place] [phone]. Sanjuana Kasper Urea nitrogen [Mass/Vol] 17.0 mg/dL Normal 7.0-18.0 [facility] Comment on above: Performed By: #### T SH, LIPID, BMP, LIVER ####[facility] [address] [place] [phone]. Sanjuana Kasper Urea nitrogen/Creatinine [Mass ratio] 17.3 mg/mg Normal [facility] Comment on above: Performed By: #### T SH, LIPID, BMP, LIVER ####[facility] [address] [place] [id number] Kasper TSHon 03-06-2023 TSH 1.951 uIU/mL Normal 0.358-3.740 [facility] Comment on above: Performed By: #### T SH, LIPID, BMP, LIVER #### [facility] [address] [address] [address] FOOT LT WO [...] RAZ MATOS Date: 2022-12-20 14:53 Normal [facility] POINT OF CARE GLUCOSEon 11-0 Glucose [Mass/Vol] 94 mg/dL Normal 74-106 [facility] Comment on above: Performed By: #### P OCGLUC #### [facility] [address] [place] [address] Dr. Sanjuana Kasper XR FOOT LT 2Von [...] MARÍA BRYSON Date: 2022-09-27 18:28 Normal [facility] Covid-19 PCR (CVDTBH)on 08-26 SARS-CoV-2 (COVID-19) RNA DAISY+probe Ql (Unsp spec) Not detected Normal NOT DETECTED [facility] Comment on above: Result Comment: This test is not yet approved or cleared by the [place] FDA. When there are no FDA-approved or cleared tests available, and other criteria are met, FDA can make tests available under an emergency access mechanism called an Emergency Use Authorization (EUA). The EUA for this test is supported by the [place] of Health and Human Service's (HHS's) declaration [...] with SARS-CoV-2. Performed By: #### C VDTB ####[facility] [address] [place], [place] [address]Dr. Sanjuana Kasper PROF CHEM 8 (BAS METB)on Anion gap [Moles/Vol] 11.6 mmol/L Normal [place] Comment on above: Performed By: #### B MP ####[facility] [address] [place], [place] [address]Dr. Sanjuana Kasper Calcium [Mass/Vol] 8.6 mg/dL Normal 8.5-10.1 [facility] Comment on above: Performed By: #### B MP ####[facility] [address] [place], [place] [address]Dr. Sanjuana Kasper Chloride [Moles/Vol] 107 mmol/L Normal 98-107 [facility] Comment on above: Performed By: #### B MP ####[facility] [address] [place], [place] [address]Dr. Sanjuana Kasper CO2 [Moles/Vol] 26.2 mmol/L Normal 21.0-32.0 [facility] Comment on above: Performed By: #### B MP ####[facility] [address] [place], [place] [address]Dr. Sanjuana Kasper Creatinine [Mass/Vol] 1.28 mg/dL Normal 0.70-1.30 [facility] Comment on above: Performed By: #### B MP ####[facility] [address] [place] [id number]. Sanjuana Kasper EGFR-AF [place]ER >60 Normal >=60 [facility] Comment on above: Performed By: #### B MP ####[facility] [address] [place] [address]Dr. Sanjuana Kasper EGFR-NON AF [place]ER 56 mL/min/1.73m2 Critically low >=60 [facility] Comment on above: Performed By: #### B MP ####[facility] [address] [place] [address]Dr. Sanjuana Kasper Glucose [Mass/Vol] 121 mg/dL Critically high 74-106 [facility] Comment on above: Performed By: #### B MP ####[facility] [address] [place], [place] [address]Dr. Sanjuana Kasper Potassium [Moles/Vol] 3.8 mmol/L Normal 3.5-5.1 [facility] Comment on above: Performed By: #### B MP ####[facility] [address] [place], [place] [address]Dr. Sanjuana Kasper Sodium [Moles/Vol] 141 mmol/L Normal 136-145 [facility] Comment on above: Performed By: #### B MP ####[facility] [address] [place], [place] [address]Dr. Sanjuana Kasper Urea nitrogen [Mass/Vol] 24.0 mg/dL Critically high 7.0-18.0 [facility] Comment on above: Performed By: #### B MP ####[facility] [address] [place], [place] [address]Dr. Sanjuana Kasper Urea nitrogen/Creatinine [Mass ratio] 18.8 mg/mg Normal [facility] Comment on above: Performed By: #### B MP ####[facility] [address] [place], [place] [address]Dr. Sanjuana Kasper PROTIMEon 09-21-2022 INR Coag (PPP) [Relative time] 1.05 {INR} Normal [facility] Comment on above: Performed By: #### P TT, PT ####[facility] [address] [place] [address]Dr. Sanjuana Kasper INR GUIDELINES SEE BELOW Normal [facility] Comment on above: Result Comment: VERONICA RED INR: 2.0 - 3.0 CONDITIONS NOT LISTED BELOW 2.5 - 3.5 FOR PROSTHETIC HEART VALVE REPLACEMENT 2.5 - 3.5 RECURRENT THROMBOSIS Performed By: #### P TT, PT ####[facility] [address] [place] [address]Dr. Sanjuana Kasper PT Coag (PPP) [Time] 11.3 s Normal 9.0-11.6 [facility] Comment on above: Performed By: #### P TT, PT ####[facility] [address] [place] [address]Dr. Sanjuana Kasper PTTon 09-21-2022 aPTT Coag (Bld) [Time] 30.0 s Normal 22.3-36.2 [facility] Comment on above: Performed By: #### P TT, PT ####[facility] [address] [place], [place] [address]Dr. Sanjuana Kasper XR FOOT MOISES MIN 3 [...] MARÍA BRYSON Date: 2022-08-01 17:51 Normal [facility] Covid-19 PCR (CVDTB)on 05-25 SARS-CoV-2 (COVID-19) RNA DAISY+probe Ql (Unsp spec) Not detected Normal NOT DETECTED [facility] Comment on above: Result Comment: This test is not yet approved or cleared by the [place] FDA. When there are no FDA-approved or cleared tests available, and other criteria are met, FDA can make tests available under an emergency access mechanism called an Emergency Use Authorization (EUA). The EUA for this test is supported by the [place] of Health and Human Service's (HHS's) declaration [...] SARS-CoV-2. Performed By: #### C VDTB #### [facility] [address] [place] [address] Dr. Sanjuana Medina 04-20-2022 L -- ---- Specimen: [id number] Received: 04/20/22 Status: LENIN Jameson Num: [id number] Spec Type: Surgical Subm Dr: Miguel Astorga,DO Tissues: A Debridement-Skin/Other Than Skin (SCALP) Procedures: HE Stain, Gross/Micro L3 ---- Patient Age/Sex Location Account Attending Physician ---- Oscar Escoto 72/M [place] [id number] Miguel Astorga DO ---- SPEC NUM: [id number] RECD: 04/20/22 STATUS: LENIN MAYA NUM: [id number] DEMARCUS: 04/20/22- SUBM DR: Miguel Astorga DO ENTERED: 04/20/22 [facility] DR: JUAN MANUEL TYPE: Surgical DEPT: S [...] thin rim of owusu unremarkable appearing skin. Human Factors Engineer sections are submitted in one cassette labeled A1. Type of Fixative: 10% Neutral Buffered Formalin (NORM/ROHIT) Microscopic Description One glass slide with H E stained material has been examined. The microscopic findings support the above pathologic diagnosis. ---- Specimen: Received: 04/20/22 Status: SENTHILRoyal Jameson Num: [id number] Spec Type: Surgical Subm Dr: Miguel Astorga DO Tissues: A Debridement-Skin/Other Than Skin (SCALP) Procedures: HE Stain, Gross/Micro L3 ---- Patient: Oscar Escoto [id number] (Continued) ---- Specimen: Received: 04/20/22 (Continued) Signed (signature on file) Favio Chong MD 04/24/222025 ---- Specimen: Received: 04/20/22 Status: LENIN Jameson Num: [id number] Spec Type: Surgical Subm Dr: Miguel Astorga DO Tissues: A Debridement-Skin/Other Than Skin (SCALP) Procedures: HE Stain, Gross/Micro L3 ---- Patient: Oscar Escoto [id number] (Continued) ---- Specimen: [id number] Received: 04/20/22 (Continued) CPT Codes 32949 ---- ---- Specimen: [id number] Received: 04/20/22 Status: LENIN Jameson Num: [id number] Spec Type: Surgical Subm Dr: Miguel Astorga DO Tissues: A Debridement-Skin/Other Than Skin (SCALP) Procedures: HE Tamara, Gross/Micro L3 ---- Patient: Oscar Escoto [id number] (Continued) ---- Signed (signature on file) Favio Chong MD 04/24/222025 Normal [facility] Basic Metabolic Panelon 05 Calcium [Mass/Vol] 9.1 mg/dL Normal 8.2-10.2 [facility] Comment on above: Result Comment: PERF ORMED BY: [place] [address] PATHOLOGIST DATABASE REPORTING CONSULTANT ISABELLA MCKEON M.D. Performed By: #### B MP, CBC #### [facility] [address] [place] [address] [place] Chloride [Moles/Vol] 103 mmol/L Normal 95-114 [facility] Comment on above: Performed By: #### B MP, CBC #### [facility] [address] [place] [address] [place] CO2 [Moles/Vol] 25.0 mmol/L Normal 22.0-30.0 [facility] Comment on above: Performed By: #### B MP, CBC #### [facility] [address] [place] [address] [place] Creatinine [Mass/Vol] 1.13 mg/dL Normal 0.64-1.27 [facility] Comment on above: Performed By: #### B MP, CBC #### [facility] [address] [place] [address] [place] Estimated GFR ( Ariane > 60 Normal [facility] Comment on above: Result Comment: GFR estimated reference range: According to KDOQI guidelines, <60 ml/min/1.73m2 is sufficient to diagnose a patient with chronic kidney disease. Performed By: #### B MP, CBC #### [address] Estimated GFR (Non- Am > 60 Normal [facility] Comment on above: Performed By: #### B MP, CBC #### [address] Glucose [Mass/Vol] 102 mg/dL High 70-100 [facility] Comment on above: Result Comment: [place] om Glucose Reference Range is dependent on time and content of last meal. Glucose of more than 200 mg/dL in a nonstressed, ambulatory subject supports the diagnosis of Diabetes Mellitus. ADA recommended reference range Performed By: #### B MP, CBC #### [address] Potassium [Moles/Vol] 4.2 mmol/L Normal 3.5-5.1 [facility] Comment on above: Performed By: #### B MP, CBC #### [address] Sodium [Moles/Vol] 137 mmol/L Normal 136-146 [facility] Comment on above: Performed By: #### B MP, CBC #### [address] Urea nitrogen [Mass/Vol] 18 mg/dL Normal 9-23 [facility] Comment on above: Performed By: #### B MP, CBC #### [place] [address] [place] Basophils Auto (Bld) [#/Vol] Ordered By: Miguel Astorga on 04-19-2022 Basophils (Bld) [#/Vol] 0.1 10*3/uL 0.0-0.2 [facility] [facility] Basophils/100 WBC Auto (Bld) Ordered By: Miguel Astorga on 04-19-2022 Basophils/100 WBC (Bld) 0.9 % [facility] Blood hemoglobin measurement (mass/volume)Ordered By: Miguel Astorga on 04-19-2022 Hemoglobin (Bld) [Mass/Vol] 14.3 g/dL 13.0-17.0 [facility] Blood leukocytes automated c ount (number/volume)Ordered By: Miguel Astorga on 04-19-2022 WBC (Bld) [#/Vol] 5.5 10*3/uL 4.5-11.0 [facility] COVID-19 [facility] [place] SARS-CoV-2 (COVID-19) RNA DAISY+probe Ql (Unsp spec) Negative Normal Negative [facility] Comment on above: Order Comment: Comme nt For surgery tomorrow Healthcare Worker?: N Result Comment: Testing for SARS-CoV-2 by RT-PCR This test was developed and its performance characteristics determined by [employer] ([facility] and validated at the [facility]. This test has not been [...] is terminated or revoked sooner. PERFORMED BY: [address] [place] [address] PATHOLOGIST DATABASE REPORTING CONSULTANT ISABELLA MCKEON M.D. Performed By: #### C OVID 19 [facility] [place] #### [address] COVID-19 Positive/NegativeOr dered By: Miguel Astorga on 04-19-2022 SARS-CoV-2 (COVID-19) N gene DAISY+probe Ql (Resp) Negative Negative [facility] Comment on above: Testing for SARS-CoV -2 by RT-PCR This test was developed and its performance characteristics determined by [employer] ([facility] and validated at the [facility]. This test has not been [...] [#/Vol] 0.1 10*3/uL Normal 0.0-0.2 [facility] Comment on above: Result Comment: PERF ORMED BY: [place] [address] PATHOLOGIST DATABASE REPORTING CONSULTANT ISABELLA MCKEON M.D. Performed By: #### B MP, CBC #### [address] Basophils/100 WBC (Bld) 0.9 % Normal . [facility] Comment on above: Performed By: #### B MP, CBC #### [facility] [address] [place] [address] Eosinophils (Bld) [#/Vol] 0.2 10*3/uL Normal 0.0-0.45 [facility] Comment on above: Performed By: #### B MP, CBC #### [place] [address] [place] Eosinophils/100 WBC (Bld) 3.9 % Normal . [facility] Comment on above: Performed By: #### B MP, CBC #### [address] Erythrocyte distribution width (RBC) [Ratio] 14.1 % Normal 12.0-14.8 [facility] Comment on above: Performed By: #### B MP, CBC #### [address] Hematocrit (Bld) [Volume fraction] 43.0 % Normal 38.8-50.0 [facility] Comment on above: Performed By: #### B MP, CBC #### [address] Hemoglobin (Bld) [Mass/Vol] 14.3 g/dL Normal 13.0-17.0 [facility] Comment on above: Performed By: #### B MP, CBC #### [address] Lymphocytes (Bld) [#/Vol] 1.4 10*3/uL Normal 1.00-4.8 [facility] Comment on above: Performed By: #### B MP, CBC #### [address] Lymphocytes/100 WBC (Bld) 25.7 % Normal . [facility] Comment on above: Performed By: #### B MP, CBC #### [address] MCH (RBC) [Entitic mass] 29.9 pg Normal 27.5-35.2 [facility] Comment on above: Performed By: #### B MP, CBC #### [address] MCV (RBC) [Entitic vol] 89.8 fL Normal 83.5-101 [facility] Comment on above: Performed By: #### B MP, CBC #### [address] Mean Corpuscular HGB Conc 33.3 g/dL Normal 32.5-35.6 [facility] Comment on above: Performed By: #### B MP, CBC #### [facility] [address] [place] [address] [place] Monocytes (Bld) [#/Vol] 0.4 10*3/uL Normal 0.0-0.8 [facility] Comment on above: Performed By: #### B MP, CBC #### [facility] [address] [place] [address] [place] Monocytes/100 WBC (Bld) 6.9 % Normal . [facility] Comment on above: Performed By: #### B MP, CBC #### [facility] [address] Neutrophils (Bld) [#/Vol] 3.5 10*3/uL Normal 1.8-7.7 [facility] Comment on above: Performed By: #### B MP, CBC #### [place] [address] [place] Neutrophils/100 WBC (Bld) 62.6 % Normal . [facility] Comment on above: Performed By: #### B MP, CBC #### [facility] [address] [place] [address] [place] Nucleated RBC/100 WBC (Bld) [Ratio] 0.1 % Normal 0-0.5 [facility] Comment on above: Performed By: #### B MP, CBC #### [facility] [address] [place] [address] [place] Platelet mean volume (Bld) [Entitic vol] 8.9 fL Normal 6.6-10.1 [facility] Comment on above: Performed By: #### B MP, CBC #### [facility] [address] [place] [address] [place] Platelets (Bld) [#/Vol] 260 10*3/uL Normal 150-450 [facility] Comment on above: Performed By: #### B MP, CBC #### [facility] [address] [place] [address] [place] RBC (Bld) [#/Vol] 4.79 10*6/uL Normal 3.90-5.60 [facility] Comment on above: Performed By: #### B MP, CBC #### [facility] [address] WBC (Bld) [#/Vol] 5.5 10*3/uL Normal 4.5-11.0 [facility] Comment on above: Performed By: #### B MP, CBC #### [facility] [address] Creatinine and Glomerular fi ltration rate.predicted panel (S/P/Bld)Ordered By: Miguel Astorga on 04-19-2022 Creatinine [Mass/Vol] 1.13 mg/dL 0.64-1.27 [facility] ECG 12 lead ECGon 04-19-2022 ECG 12 lead ECG [facility] [place] [address] [place] [address] Electrocardiograph Report Signed Patient: Oscar Escoto MR#: [id number] : 1950 Acct:[id number] Age/Sex: 72 / M ADM Date: 04/19/22 Loc: Room: Type: [facility] Attending Dr: Miguel Astorga DO Ordering Provider: [...] Suzie Garza MD 0 04/20/22 1516 Normal [facility] Eosinophils Auto (Bld) [#/Vo l]Ordered By: Miguel Astorga on 04-19-2022 Eosinophils (Bld) [#/Vol] 0.2 10*3/uL 0.0-0.45 [facility] Eosinophils/100 WBC Auto (Bl d)Ordered By: Miguel Astorga on 04-19-2022 Eosinophils/100 WBC (Bld) 3.9 % [facility] Erythrocyte distribution wid th Auto (RBC) [Ratio]Ordered By: Miguel Astorga on 04-19-2022 Erythrocyte distribution width (RBC) [Ratio] 14.1 % 12.0-14.8 [facility] Estimated glomerular filtrat ion rate (GFR) non- AmericanOrdered By: Miguel Astorga on 04-19-2022 GFR/1.73 sq M.predicted among non-blacks MDRD (S/P/Bld) [Vol rate/Area] > 60 mL/Min [facility] Hematocrit Auto (Bld) [Volum e fraction]Ordered By: Miguel Astorga on 04-19-2022 Hematocrit (Bld) [Volume fraction] 43.0 % 38.8-50.0 [facility] Laboratory - Hematology and Cell countsOrdered By: Miguel Astorga on 04-19-2022 Nucleated RBC/100 WBC (Bld) [Ratio] 0.1 % 0-0.5 [facility] Lymphocytes Auto (Bld) [#/Vo l]Ordered By: Miguel Astorga on 04-19-2022 Lymphocytes (Bld) [#/Vol] 1.4 10*3/uL 1.00-4.8 [facility] Lymphocytes/100 WBC Auto (Bl d)Ordered By: Miguel Astorga on 04-19-2022 Lymphocytes/100 WBC (Bld) 25.7 % [facility] MCH Auto (RBC) [Entitic mass ]Ordered By: Miguel Astorga on 04-19-2022 MCH (RBC) [Entitic mass] 29.9 pg 27.5-35.2 [facility] MCHC Auto (RBC) [Mass/Vol]Or dered By: Miguel Astorga on 04-19-2022 MCHC (RBC) [Mass/Vol] 33.3 g/dL 32.5-35.6 [facility] MCV Auto (RBC) [Entitic vol] Ordered By: Miguel Astorga on 04-19-2022 MCV (RBC) [Entitic vol] 89.8 fL 83.5-101 [facility] Monocytes Auto (Bld) [#/Vol] Ordered By: Miguel Astorga on 04-19-2022 Monocytes (Bld) [#/Vol] 0.4 10*3/uL 0.0-0.8 [facility] Monocytes/100 WBC Auto (Bld) Ordered By: Miguel Astorga on 04-19-2022 Monocytes/100 WBC (Bld) 6.9 % [facility] Neutrophils Auto (Bld) [#/Vo l]Ordered By: Miguel Astorga on 04-19-2022 Neutrophils (Bld) [#/Vol] 3.5 10*3/uL 1.8-7.7 [facility] Neutrophils/100 WBC Auto (Bl d)Ordered By: Miguel Astorga on 04-19-2022 Neutrophils/100 WBC (Bld) 62.6 % [facility] No Panel InformationOrdered By: Miguel Astorga on 04-19-2022 Estimated GFR () > 60 mL/Min [facility] Comment on above: GFR estimated refere nce range: According to KDOQI guidelines, <60 ml/min/1.73m2 is sufficient to diagnose a patient with chronic kidney disease. Pharmacy Creatinine Clearance (Chem N/A [facility] Platelet mean volume Auto (B ld) [Entitic vol]Ordered By: Miguel Astorga on 04-19-2022 Platelet mean volume (Bld) [Entitic vol] 8.9 fL 6.6-10.1 [facility] Platelets Auto (Bld) [#/Vol] Ordered By: Miguel Astorga on 04-19-2022 Platelets (Bld) [#/Vol] 260 10*3/uL 150-450 [facility] RBC Auto (Bld) [#/Vol]Ordere d By: Miguel Astorga on 04-19-2022 RBC (Bld) [#/Vol] 4.79 10*6/uL 3.90-5.60 [facility] Serum or plasma calcium dieter urement (mass/volume)Ordered By: Miguel Astorga on 04-19-2022 Calcium [Mass/Vol] 9.1 mg/dL 8.2-10.2 [facility] Serum or plasma chloride shashank surement (moles/volume)Ordered By: Miguel Astorga on 04-19-2022 Chloride [Moles/Vol] 103 mmol/L 95-114 [facility] Serum or plasma glucose dieter urement (mass/volume)Ordered By: Miguel Astorga on 04-19-2022 Glucose [Mass/Vol] 102 mg/dL 70-100 [facility] Comment on above: ADA recommended refe rence range Random Glucose Reference Range is dependent on time and content of last meal. Glucose of more than 200 mg/dL in a nonstressed, ambulatory subject supports the diagnosis of Diabetes Mellitus. Serum or plasma potassium me asurement (moles/volume)Ordered By: Miguel Astorga on 04-19-2022 Potassium [Moles/Vol] 4.2 mmol/L 3.5-5.1 [facility] Serum or plasma sodium measu rement (moles/volume)Ordered By: Miguel Astorga on 04-19-2022 Sodium [Moles/Vol] 137 mmol/L 136-146 [facility] Serum or plasma total carbon dioxide measurement (moles/volume)Ordered By: Miguel Astorga on 04-19-2022 CO2 [Moles/Vol] 25.0 mmol/L 22.0-30.0 [facility] Serum or plasma urea nitroge n measurement (mass/volume)Ordered By: Miguel Astorga on 04-19-2022 Urea nitrogen [Mass/Vol] 18 mg/dL 9-23 [facility] Vital Signs Date Time Vital Sign Value Performing Clinician Facility 07-14-2025 10: Body height 188 cm Kavya Germain DO Work Phone: [facility] 07-14-2025 10:[id number] Body mass index (BMI) [Ratio] 31.33 kg/m2 Kavya Germain DO Work Phone: [facility] [place] [facility] 07-14-2025 10:16-0400 Body weight 110.68 kg Kavya Germain Work Phone: [facility] 06-30-2025 07:57-0400 Body height 188 cm North Chapin MD Work Phone: [facility] 06-30-2025 07:57-0400 Body mass index (BMI) [Ratio] 31.97 kg/m2 North Chapin MD Work Phone: [facility] 06-30-2025 07:57-0400 Body temperature 97.5 [degF] North Chapin MD Work Phone: [facility] 06-30-2025 07:57-0400 Body weight 112.95 kg North Chapin MD Work Phone: [facility] 06-30-2025 07:57-0400 Diastolic blood pressure 62 mm[Hg] North Chapin MD Work Phone: [facility] 06-30-2025 07:57-0400 Heart rate 68 /min North Chapin MD Work Phone: [facility] 06-30-2025 07:57-0400 Respiratory rate 20 /min North Chapin MD Work Phone: [facility] 06-30-2025 07:57-0400 SaO2% (BldA) [Mass fraction] 95 % North Chapin MD Work Phone: [facility] 06-30-2025 07:57-0400 Systolic blood pressure 148 mm[Hg] North Chapin MD Work Phone: [facility] 04-05-2025 12:41-0400 Blood Pressure Location Natali IRAHETA [facility] 04-05-2025 12:41-0400 Body temperature 98.6 [degF] Natali IRAHETA [facility] 04-05-2025 12:41-0400 Diastolic blood pressure 68 mm[Hg] Natali IRAHETA [facility] 04-05-2025 12:41-0400 Heart rate 66 /min Natali IRAHETA [facility] 04-05-2025 12:41-0400 Respiratory rate 19 /min Natali IRAHETA [facility] 04-05-2025 12:41-0400 Systolic blood pressure 128 mm[Hg] Natali IRAHETA [facility] 03-29-2025 14:09-0400 Body height 188 cm North Chapin MD Work Phone: [facility] 03-29-2025 14:09-0400 Body mass index (BMI) [Ratio] 33.38 kg/m2 North Chapin MD Work Phone: [facility] 03-29-2025 14:09-0400 Body temperature 97.81 [degF] North Chapin MD Work Phone: [facility] 03-29-2025 14:09-0400 Body weight 117.94 kg North Chapin MD Work Phone: [facility] 03-29-2025 14:09-0400 Diastolic blood pressure 68 mm[Hg] North Chapin MD Work Phone: [facility] 03-29-2025 14:09-0400 Heart rate 64 /min North Chapin MD Work Phone: [facility] 03-29-2025 14:09-0400 Respiratory rate 18 /min North Chapin MD Work Phone: [facility] 03-29-2025 14:09-0400 SaO2% (BldA) [Mass fraction] 97 % North Chapin MD Work Phone: [facility] 03-29-2025 14:09-0400 Systolic blood pressure 142 mm[Hg] North Chapin MD Work Phone: [facility] 02-02-2025 15:24-0400 Body height 188 cm Bud SUBRAMANIAN Work Phone: [facility] 02-02-2025 15:24-0400 Body mass index (BMI) [Ratio] 31.97 kg/m2 Bud SUBRAMANIAN Work Phone: [facility] 02-02-2025 15:24-0400 Body weight 112.95 kg Bud SUBRAMANIAN Work Phone: [facility] 10-12-2024 15:33-0500 Blood Pressure Location Natalitasha IRAHETA [facility] 10-12-2024 15:33-0500 Body temperature 98.6 [degF] Natali IRAHETA [facility] 10-12-2024 15:33-0500 Diastolic blood pressure 75 mm[Hg] Natali IRAHETA [facility] 10-12-2024 15:33-0500 Heart rate 60 /min Natali IRAHETA [facility] 10-12-2024 15:33-0500 Respiratory rate 16 /min Natali IRAHETA [facility] 10-12-2024 15:33-0500 Systolic blood pressure 128 mm[Hg] Natali IRAHETA [facility] 10-07-2024 13:39-0500 Body height 188 cm Cecilia Anderson PA-C Work Phone: [facility] 10-07-2024 13:39-0500 Body mass index (BMI) [Ratio] 31.33 kg/m2 Cecilia Anderson PA-C Work Phone: [facility] 10-07-2024 13:39-0500 Body weight 110.68 kg Cecilia Verhoff PA-C Work Phone: [facility] [place] [facility] 10-07-2024 13:39-0500 Diastolic blood pressure 68 mm[Hg] Cecilia Verhoff PA-C Work Phone: [facility] [place] [facility] 10-07-2024 13:39-0500 Heart rate 66 /min Cecilia Verhoff PA-C Work Phone: [facility] 10-07-2024 13:39-0500 SaO2% (BldA) [Mass fraction] 94 % Cecilia Verhoff PA-C Work Phone: [facility] 10-07-2024 13:39-0500 Systolic blood pressure 133 mm[Hg] Cecilia Verhoff PA-C Work Phone: [facility] 06-24-2023 15:47-0400 Blood Pressure Location Natali IRAHETA [facility] 06-24-2023 15:47-0400 Diastolic blood pressure 80 mm[Hg] Natali IRAHETA [facility] 06-24-2023 15:47-0400 Heart rate 68 /min Natali IRAHETA [facility] 06-24-2023 15:47-0400 Respiratory rate 16 /min Natali IRAHETA [facility] 06-24-2023 15:47-0400 Systolic blood pressure 130 mm[Hg] Natali IRAHETA [facility] 05-07-2022 14:57-0400 Blood Pressure Location Natali IRAHETA [facility] 05-07-2022 14:57-0400 Diastolic blood pressure 81 mm[Hg] [facility] 05-07-2022 14:57-0400 Heart rate 72 /min Natalitasha [facility] 05-07-2022 14:57-0400 Respiratory rate 16 /min Natali IRAHETA [facility] 05-07-2022 14:57-0400 Systolic blood pressure 149 mm[Hg] [facility] 04-20-2022 15:00-0400 Diastolic blood pressure 58 mm[Hg] DO Miguel Murcek Work Phone: [facility] 04-20-2022 15:00-0400 Heart rate 72 /min DO Miguel Murcek Work Phone: [facility] 04-20-2022 15:00-0400 Respiratory rate 16 /min DO Miguel Malucek Work Phone: [facility] 04-20-2022 15:00-0400 SaO2% (BldA) [Mass fraction] 95 % DO Miguel Murcek Work Phone: [facility] 04-20-2022 15:00-0400 Systolic blood pressure 118 mm[Hg] DO Miguel Murcek Work Phone: [facility] 04-20-2022 13:09-0400 Body temperature 97.5 [degF] DO Miguel Murcek Work Phone: [facility] 04-20-2022 13:09-0400 Inhaled oxygen flow rate 6 L/min DO Miguel Murcek Work Phone: [facility] 04-20-2022 12:40-0400 Body height 187.96 cm DO Miguel Astorga Work Phone: [facility] 04-20-2022 12:40-0400 Body mass index (BMI) [Ratio] 30.9 kg/m2 DO Miguel Astorga Work Phone: [facility] 04-20-2022 12:40-0400 Body weight 109.4 kg DO Miguel Astorga Work Phone: [facility] Encounters Encounter Date Encounter Type Care Provider Facility Start: 10-25-2025 ambulatory Natali Zelaya ty:ALEXANDRA Pleitez Start: 08-02-2025 ambulatory [facility] Start: 07-27-2025 End: 07-27-2025 ambulatory [facility] Start: 07-27-2025 End: 07-27-2025 Encounter for other preprocedural examination [facility] Start: 07-15-2025 ambulatory [facility] Start: 07-15-2025 ambulatory [facility] Start: 07-14-2025 End: 07-14-2025 Office outpatient new 20 minutes Kavya Germain DO Work Phone: [facility] Comment on above: Chronic epididymitis (Primary Dx) Start: 07-14-2025 End: 07-14-2025 ambulatory [facility] Start: 07-02-2025 End: 07-02-2025 Clinisync [...] Dx); H/O epididymitis Start: 06-23-2025 ambulatory [facility] Start: 05-17-2025 ambulatory ROXANNE [facility] Start: 05-12-2025 End: 05-12-2025 Patient encounter procedure Sakina Carpenter MD Work Phone: [facility] Comment on above: Basal cell carcinoma (BCC) of right forearm (Primary Dx); Basal cell carcinoma of skin of left lower limb, including hip Start: 05-12-2025 End: 05-12-2025 ambulatory SAKINA A PETITTI Not Available Start: 04-30-2025 End: 04-30-2025 Robyn Carpenter MD Work Phone: [facility] Start: 04-30-2025 End: 04-30-2025 Robyn Carpenter MD Work Phone: [facility] Start: 04-30-2025 End: 04-30-2025 Patient encounter procedure Sakina Carpenter MD Work Phone: [facility] Comment on above: Basal cell carcinoma of skin of left lower limb, including hip (Primary Dx) Start: 04-30-2025 End: 04-30-2025 ambulatory SAKINA A PETITTI Not Available Start: 04-21-2025 End: 04-21-2025 ambulatory MIKE COURTNEY [facility] Start: 04-12-2025 End: 04-12-2025 Postop follow up visit related to original px Nneka T Hernandez [employer]CH[employer]ICIAN Work Phone: [facility] Comment on above: Status post arthrosc opy of left knee (Primary Dx) Start: 04-12-2025 End: 04-12-2025 ambulatory NNEKA HERNANDEZ Not Available Start: 04-12-2025 End: 04-12-2025 Bamboo flowsheet Nneka Hernandez [employer]BI[employer] HOME TECHNICIAN Work Phone: [facility] Start: 04-12-2025 End: 04-12-2025 Bamboo flowsheet Nneka Hernandez MOBILE HOME TECHNICIAN Work Phone: [facility] Start: 04-12-2025 ambulatory ROXANNE BRENNAN [facility] Start: 04-05-2025 End: 04-05-2025 ambulatory Natali IRAHETA Facility:[facility] Start: 04-05-2025 End: 04-05-2025 Patient encounter procedure Natali IRAHETA [facility] Start: 04-03-2025 End: 04-03-2025 Clinisync Result Encounter North Chapin MD Work Phone: [facility] Unsolicited Start: 04-03-2025 End: 04-03-2025 Clinisync Result Encounter North Chapin MD Work Phone: [facility] Unsolicited Start: 03-29-2025 End: 03-29-2025 Bamboo flowsheet North Chapin MD Work Phone: [facility] Start: 03-29-2025 End: 03-29-2025 Bamboo flowsheet North Chapin MD Work Phone: [facility] Start: 03-29-2025 End: 03-29-2025 Patient encounter procedure North Chapin MD Work Phone: [facility] Work Phone: Start: 03-29-2025 End: 03-29-2025 Postop follow up visit related to original px North Chapin MD Work Phone: [facility] Comment on above: Medicare annual well ness visit, subsequent (Primary Dx); Prediabetes; Dyslipidemia (CMS/HCC); Encounter for long-term (current) use of medications; Screening PSA (prostate specific antigen); Paroxysmal atrial fibrillation (CMS/HCC) Start: 03-29-2025 End: 03-29-2025 ambulatory [facility] Not Available Start: 03-24-2025 End: 03-24-2025 Bamboo flowsheet Sakina Carpenter MD Work Phone: [facility] Start: 03-24-2025 End: 03-24-2025 Bamboo flowsheet Sakina Carpenter MD Work Phone: [facility] Start: 03-24-2025 End: 03-24-2025 Office outpatient visit 15 minutes Sakina Carpenter MD Work Phone: [facility] Comment on above: Seborrheic keratosis (Primary Dx); Actinic keratosis; Neoplasm of unspecified behavior of bone, soft tissue, and skin; Lentigines; History of malignant neoplasm of skin Start: 03-24-2025 End: 03-24-2025 ambulatory SAKINA CARPENTER Not Available Start: 2025 End: 2025 Bamboo flowsheet Nneka Hernandez NP Work Phone: [facility] Start: 2025 End: 2025 Bamboo flowsheet Nneka Hernandez MOBILE HOME TECHNICIAN Work Phone: [facility] Start: 2025 End: 2025 Postop follow up visit related to original px Nneka Hernandez MOBILE HOME TECHNICIAN Work Phone: [facility] Comment on above: Status post arthrosc opy of left knee (Primary Dx) Start: 2025 End: 2025 ambulatory NNEKA HERNANDEZ Not Available Start: 03-04-2025 ambulatory [facility] Start: 03-01-2025 End: 03-01-2025 ambulatory ENRRIQUE WALDROP Facility:[facility] Start: 02-26-2025 End: 02-28-2025 Refill Nneka Hernandez NP Work Phone: [facility] Comment on above: Internal derangement of left knee (Primary Dx) Start: 02-03-2025 ambulatory ROXANNE [facility] Start: 02-02-2025 End: 02-02-2025 ambulatory BUD CUMMINS Not Available Start: 02-02-2025 End: 02-02-2025 Patient encounter procedure Bud Cummins PA Work Phone: [facility] Comment on above: Pre-op examination ( Primary Dx) Start: 02-02-2025 End: 02-02-2025 Preprocedural examination done Bud SUBRAMANIAN Work Phone: [facility] Work Phone: Start: 02-02-2025 End: 02-02-2025 Bamboo flowsheet Bud SUBRAMANIAN Work Phone: [facility] Start: 02-02-2025 End: 02-02-2025 Bamboo flowsheet Bud Cummins PA Work Phone: [facility] Start: 02-02-2025 End: 02-02-2025 ambulatory NORTH CHAPIN Facility:[facility] Start: 02-02-2025 Encounter for other preprocedural examination [facility] Start: 12-25-2024 End: 12-25-2024 Bamboo flowsbest Waldrpo DO Work Phone: [facility] Start: 12-25-2024 End: 12-25-2024 Bamboo flowsbest [facility] DO Work Phone: [facility] Start: 12-25-2024 End: 12-25-2024 Office outpatient visit 25 minutes Jr. Enrrique Waldrop DO Work Phone: [facility] Comment on above: Left knee pain, unsp ecified chronicity (Primary Dx); Internal derangement of left knee Start: 12-25-2024 End: 12-25-2024 ambulatory ENRRIQUE ZIMMERMAN Not Available Start: 12-18-2024 ambulatory [facility] Start: 12-11-2024 End: 12-14-2024 Telephone encounter Mary Lou Diane MOBILE HOME TECHNICIAN Work Phone: [facility] Comment on above: RX Start: 12-10-2024 End: 12-10-2024 Telephone encounter Mary Lou Deckering MOBILE HOME TECHNICIAN Work Phone: [facility] Comment on above: MRI Start: 12-05-2024 End: 12-07-2024 Refill [place] MD Work Phone: [facility] Comment on above: Anxiety disorder, un specified type; Restless leg syndrome Start: 11-30-2024 End: 11-30-2024 Bamboo flowsheet Mary Lou Peterson Apling MOBILE HOME TECHNICIAN Work Phone: [facility] Start: 11-30-2024 End: 11-30-2024 Bamboo flowsheet Mary Lou Kritsen Apling MOBILE HOME TECHNICIAN Work Phone: [facility] Start: 11-30-2024 End: 11-30-2024 Office outpatient visit 15 minutes Mary Lou Deckering MOBILE HOME TECHNICIAN Work Phone: [facility] Comment on above: Left knee pain, unsp ecified chronicity (Primary Dx); Arthritis of left knee; Internal derangement of left knee Start: 11-30-2024 End: 11-30-2024 ambulatory MARY LOU Kristen APLING Not Available Start: 11-13-2024 ambulatory [facility] Start: 11-10-2024 End: 11-10-2024 ambulatory [facility] Start: 11-09-2024 End: 11-09-2024 Bamboo flowsheet Mary Lou Peterson Apling MOBILE HOME TECHNICIAN Work Phone: [facility] Start: 11-09-2024 End: 11-09-2024 Bamboo flowsheet Mary Lou Peterson Roxi MOBILE HOME TECHNICIAN Work Phone: [facility] Start: 11-09-2024 End: 11-09-2024 Office outpatient visit 25 minutes Mary Lou Peterson Roxi MOBILE HOME TECHNICIAN Work Phone: [facility] Comment on above: Left knee pain, unsp ecified chronicity (Primary Dx); Arthritis of left knee Start: 11-09-2024 End: 11-09-2024 ambulatory MARY LOU Peterson WHITLEYALAN Not Available Start: 11-05-2024 End: 11-05-2024 Bamboo flowsheet Naomi Pack FIELD OPERATIONS FARM MANAGER [facility] Start: 11-05-2024 End: 11-05-2024 Bamboo flowsheet Naomi Pack FIELD OPERATIONS FARM MANAGER [facility] Start: 11-05-2024 End: 11-05-2024 ambulatory Naomi Pack FIELD OPERATIONS FARM MANAGER [facility] Comment on above: Left knee pain, unsp ecified chronicity (Primary Dx) Start: 11-03-2024 End: 11-04-2024 ambulatory Franco Minnie FIELD OPERATIONS FARM MANAGER [facility] Comment on above: Left knee pain, unsp ecified chronicity (Primary Dx) Start: 11-03-2024 End: 11-03-2024 Bamboo flowsheet Franco Minnie FIELD OPERATIONS FARM MANAGER [facility] Start: 11-03-2024 End: 11-03-2024 Bamboo flowsheet Franco Minnie FIELD OPERATIONS FARM MANAGER [facility] Start: 10-29-2024 End: 10-29-2024 Bamboo flowsheet Yenny Rowe PT [facility] Start: 10-29-2024 End: 10-29-2024 Bamboo flowsheet Yenny Rowe PT [facility] Start: 10-29-2024 End: 10-29-2024 ambulatory Yenny Rowe PT [facility] Comment on above: Left knee pain, unsp ecified chronicity (Primary Dx) Start: 10-28-2024 ambulatory [facility] Start: 10-27-2024 End: 10-27-2024 ambulatory Franco Escobedo FIELD OPERATIONS FARM MANAGER [facility] Comment on above: Left knee pain, unsp ecified chronicity (Primary Dx) Start: 10-27-2024 End: 10-27-2024 Bamboo flowsheet Franco Escobedo FIELD OPERATIONS FARM MANAGER [facility] Start: 10-27-2024 End: 10-27-2024 Bamboo flowsheet Franco Escobedo FIELD OPERATIONS FARM MANAGER [facility] Start: 10-20-2024 End: 10-20-2024 ambulatory Yenny Rowe PT [facility] Comment on above: Left knee pain, unsp ecified chronicity (Primary Dx) Start: 10-20-2024 End: 10-20-2024 Bamboo flowsheet Yenny Rowe PT [facility] Start: 10-20-2024 End: 10-20-2024 Bamboo flowsheet Yennyconnie Rowe PT [facility] Start: 10-14-2024 ambulatory [facility] Start: 10-12-2024 End: 10-12-2024 ambulatory Natali IRAHETA Facility:[facility] Start: 10-12-2024 End: 10-12-2024 Patient encounter procedure Natali IRAHETA [facility] Start: 10-07-2024 End: 10-07-[address] [facility] Pierre [facility] Start: 10-07-2024 End: 10-07-2024 Office outpatient visit 25 minutes Cecilia Anderson PA-C Work Phone: [facility] Comment on above: Left knee pain, unsp ecified chronicity (Primary Dx) Start: 10-07-2024 End: 10-07-[address] [facility] Start: 09-07-2024 ambulatory [facility] Start: 08-27-2024 ambulatory [facility] Start: 08-25-2024 ambulatory [facility] Start: 08-13-2024 End: 08-13-2024 Bamboo flowsheet Sakina Carpenter MD Work Phone: [facility] Start: 08-13-2024 End: 08-13-2024 Bamboo flowsheet Sakina Carpenter MD Work Phone: [facility] Start: 08-13-2024 End: 08-13-2024 Office outpatient visit 15 minutes Sakina Carpenter MD Work Phone: [facility] Comment on above: Seborrheic keratosis (Primary Dx); Lentigines; Melanocytic nevus of trunk; Angioma of skin; Actinic keratosis; History of basal cell carcinoma; Neoplasm of unspecified behavior of bone, soft tissue, and skin Start: 08-13-2024 End: 08-13-2024 ambulatory SAKINA CARPENTER Not Available Start: 03-17-2024 Patient encounter procedure Sakina Carpenter MD Work Phone: [facility] Start: 06-24-2023 End: 06-24-2023 Patient encounter procedure Natali IRAHETA [facility] Start: 04-09-2023 End: 04-09-2023 ambulatory MATTHIAS SAHA . Facility:[facility] Start: 03-18-2023 End: 03-18-2023 ambulatory Sakina Carpenter Facility:[facility] Start: 03-18-2023 End: 03-18-2023 ambulatory MD Sakina Carpenter Work Phone: [facility] Work Phone: Start: 03-18-2023 End: 03-18-2023 Departed Referred MD Sakina Carpenter Work Phone: [facility] [place] Work Phone: Start: 03-12-2023 End: 03-13-2023 ambulatory [...] Start: 09-26-2022 Encounter for preprocedural cardiovascular examination [facility] Kyler [facility] Start: 09-26-2022 Encounter for preprocedural laboratory examination [facility] Start: 09-24-2022 ambulatory BARBIE CANSECO Faci lity:[facility]1 Start: 09-21-2022 End: 09-22-2022 ambulatory BARBIE Chávez [facility] Facility:[facility] Start: 09-21-2022 End: 09-22-2022 Encounter for preprocedural cardiovascular examination BARBIE Chávez [facility] Facility:[facility] Start: 08-01-2022 End: 08-02-2022 ambulatory BARBIE Kyler [facility] Start: 06-04-2022 End: 06-05-[address] NORTH CHAPIN Facility:[facility] Start: 05-15-2022 End: 05-16-2022 ambulatory MOEDSTO ROCHE Facility:[facility] Start: 05-07-2022 End: 05-07-2022 Patient encounter procedure Natali IRAHETA [facility] Start: 04-27-2022 End: 04-28-[address] NATALI IRAHETA . Facility:[facility] Start: 04-20-2022 End: 04-20-2022 ambulatory Miguel Astorga Facility:[facility] Start: 04-20-2022 End: 04-20-2022 Admission to same day surgery center DO Miguel Astorga Work Phone: [facility] [place] Start: 04-19-2022 End: 04-19-2022 ambulatory [place] Facility:[facility] Start: 04-19-2022 End: 04-19-2022 Patient encounter procedure DO Miguel Astorga Work Phone: [facility] Procedures Date Procedure Procedure Detail [...] Work Phone: Start: 03-01-2025 Arthroscopy of knee Pat tasha IRAHETA Start: 11-09-2024 Arthrocentesis aspir &/inj major jt/bursa w/o us Mary Lou Diane MOBILE HOME TECHNICIAN Work Phone: Start: 11-09-2024 Radiologic exam both knees standing anteropost Mary Lou Diane MOBILE HOME TECHNICIAN Work Phone: Start: 08-13-2024 SKIN / NAIL BIOPSY Get Carpenter MD Work Phone: Start: 08-13-2024 CRYOTHERAPY SKIN LESION Sakina Carpenter MD Work Phone: Start: 04-09-2023 Colonoscopy Sakina watson MD Work Phone: Start: 04-27-2022 PSA screening MODESTO ROCHE Comment on above: Performed By: #### P SAD ####[place] [id number] Kasper Start: 04-20-2022 OR Cheek Lesion Exc [...] 04-09-2033 Screening for malignant neoplasm of colon [facility] Start: 12-06-2032 DTaP,Tdap and Td Vaccines (2 - Tdap) DTaP,Tdap and Td Vaccines (2 - Tdap) [facility] Start: 07-14-2026 Adult BMI Screening Adult BMI Screening [facility] Start: 07-14-2026 Tobacco Screening Tobacco Screening [facility] Start: 03-29-2026 Medicare Annual Wellness (AWV) Medicare Annual Wellness (AWV) [facility] Start: 10-07-2025 Adult BMI Screening Adult BMI Screening [facility] Start: 10-07-2025 Tobacco Screening Tobacco Screening [facility] Start: 09-29-2025 End: 09-29-2025 Patient encounter procedure 09/29/2025 1:45 PM EST Office Visit [facility] [address] [place] [phone] [place] MD [address] [place] [address] [facility] Start: 09-28-2025 End: 09-28-2025 Patient encounter procedure [facility] Start: 07-26-2025 Influenza vaccination [facility] Start: 06-30-2025 End: 06-30-2026 US Scrotum and testicle US scrotum Imaging Routine Inguinal pain, right H/O epididymitis Expected: 06/30/2025, Expires: 06/30/2026 [facility] Work Phone: Comment on above: Expected: 06/30/2025, Expires: Start: 05-12-2025 End: 05-12-2025 Patient encounter procedure 05/12/2025 1:20 PM EDT Procedure Visit [facility] [address] [place] [phone] Sakina Carpenter MD [address] [place] [address] [facility] Start: 04-30-2025 End: 04-30-2025 Patient encounter procedure 04/30/2025 10:20 AM EDT Office Visit [facility] [address] [place] [address] Sakina Carpenter MD [address] [place] [address] Arrived [facility] Comment on above: Arrived Start: 04-28-2025 End: 04-28-2025 Patient encounter procedure 04/28/2025 4:00 PM EDT Office Visit [facility] [address] [place] [phone] Sakina Carpenter MD [address] [place] [address] [facility] Start: 04-12-2025 End: 04-12-2025 [facility] Comment on above: Arrived Start: 03-29-2025 End: 03-29-2026 Basic metabolic 1998 panel - Serum or Plasma Basic metabolic panel Lab Routine Encounter for long-term (current) use of medications Expected: 03/29/2025 (Approximate), Expires: 03/29/2026 [facility] [...] Dyslipidemia (CMS/HCC) Expected: 03/29/2025 (Approximate), Expires: 03/29/2026 [facility] Comment on above: Expected: 03/29/2025 (Approximate), Expi res: 03/29/2026 Start: 03-29-2025 End: 03-29-2025 Patient encounter procedure [facility] Comment on above: Arrived Start: 03-24-2025 End: 03-24-2025 Patient encounter procedure 03/24/2025 1:00 PM EDT Office Visit [facility] [address] [place] [phone] Sakina Carpenter MD [address] [place] [address] Arrived [facility] Comment on above: Arrived Start: 03-23-2025 End: 03-23-2025 Patient encounter procedure [facility] Start: 03-22-2025 End: 03-22-2025 Patient encounter procedure 03/22/2025 11:30 AM EDT Office Visit [facility] [address] [place] [phone] [place] MD [address] [place] [phone] [facility] Start: 03-17-2025 Medicare Annual Wellness (AWV) Medicare Annual Wellness (AWV) [facility] Start: 2025 End: 2025 Patient encounter procedure [facility] Comment on above: Arrived Start: 02-22-2025 End: 02-22-2025 Patient encounter procedure 02/22/2025 1:35 PM EDT Office Visit [facility] [address] [place] [phone] Sakina Carpenter MD [address] [place], [place] [id number] [facility] Start: 02-11-2025 End: 02-11-2025 Patient encounter procedure 02/11/2025 1:05 PM EDT Office Visit [facility] [address] [place] [address] Sakina Carpenter MD [address] [place], [place] [phone] [facility] Start: 02-02-2025 End: 02-02-2025 Patient encounter procedure 02/02/2025 3:00 PM EDT Office Visit [facility] [address] [place] [phone] Bud Cummins PA [address] [facility] [address] [place] [address] [facility] Start: 12-25-2024 End: 12-25-2024 Patient encounter procedure [facility] Comment on above: Arrived Start: 12-09-2024 End: 12-09-2024 Patient encounter procedure 12/09/2024 1:30 PM EST Office Visit [facility] [address] [place] [phone] Cecilia Anderson PA-C [address] [place] [address] [facility] Start: 11-30-2024 [...] PT [address] [place] [address] Yenny Rowe, PT [facility] Start: 11-12-2024 End: 11-12-2024 ambulatory 11/12/2024 5:00 PM EST Treatment [facility] [address] [place] [address] Naomi Pack, FIELD OPERATIONS FARM MANAGER [facility] Start: 11-09-2024 End: 11-09-2024 ambulatory 11/09/2024 4:00 PM EST Treatment [facility] [address] [place] [address] Yenny Rowe, PT [facility] Start: [...] 08/13/2024 9:45 AM EDT Office Visit [facility] [address] [place] [address] Sakina Carpenter MD [address] [place] [address] Arrived [facility] Comment on above: Arrived Start: 07-26-2024 COVID-19 Vaccine ( season) COVID-19 Vaccine () [facility] Start: 07-26-2024 COVID-19 Vaccine () COVID-19 Vaccine () [facility] Start: 07-26-2024 Influenza vaccination Influenza Vaccine (#1) [facility] Start: 03-18-2023 Superficial Wound Culture Superficial Wound Culture [facility] Start: 2017 Fall Risk Screening Fall Risk Screening [facility] Start: 1970 Adult BMI Follow Up Plan Adult BMI Follow Up Plan [facility] Start: 1964 Depression Screening Depression Screening [facility] Start: 1952 Medicare Annual Wellness (AWV) Medicare Annual Wellness (AWV) [facility] Start: 1950 Screening for malignant neoplasm of colon [facility] Dermatopathology exam Dermatopat hology exam Pathology and Cytology Timed Neoplasm of unspecified behavior of bone, soft tissue, and skin Release Upon Ordering for 1 Occurrences starting 08/13/2024 [facility] Work Phone: Comment on above: Release Upon Ordering for 1 Occurrences starting 08/13/2024 Dermatopathology exam Dermatopat hology exam Pathology and Cytology Timed Neoplasm of unspecified behavior of bone, soft tissue, and skin Release Upon Ordering for 1 Occurrences starting 03/24/2025 [facility] Work Phone: Comment on above: Release Upon Ordering for 1 Occurrences starting 03/24/2025 Dermatopathology exam Dermatopat hology exam Pathology and Cytology Timed Basal cell carcinoma of skin of left lower limb, including hip Release Upon Ordering for 1 Occurrences starting 04/30/2025 [facility] Work Phone: Comment on above: Release Upon Ordering for 1 Occurrences starting 04/30/2025 SARS-CoV-2 (COVID-19 ) N gene [Presence] in Respiratory specimen by DAISY with probe detection [facility] Work Phone: End: 10-07-2025 XR Knee [...] pain, unspecified chronicity 10/07/2024 2:40 PM EST [employer] Immunizations Immunization Date Immunization Notes Care Provider Amanda griffin 08-09-2024 influenza virus vacc ine, unspecified formulation Natali IRAHETA [facility] 08-22-2023 influenza virus vacc ine, unspecified formulation Sakina Carpenter MD Work Phone: [facility] 09-02-2022 influenza virus vacc ine, unspecified formulation Natali [employer] [facility] 10-05-2021 SARS-CoV-2 (COVID-19 ) mRNA BNT-162b2 vax Natali IRAHETA [facility] 08-14-2021 influenza virus vacc ine, unspecified formulation Natali IRAHETA [facility] 08-14-2021 pneumococcal polysaccharide vaccine, 23 valent Natali IRAHETA [facility] 03-22-2021 SARS-CoV-2 (COVID-19 ) mRNA BNT-162b2 vax Natali IRAHETA [facility] Comment on above: Result Comment: donna r 03-22-2021 SARS-CoV-2 (COVID-19 ) mRNA-1273 vaccine Natali IRAHETA [facility] 03-01-2021 SARS-CoV-2 (COVID-19 ) mRNA BNT-162b2 vax Natali IRAHETA [facility] 02-23-2021 SARS-CoV-2 (COVID-19 ) mRNA BNT-162b2 vax Natali IRAHETA [facility] Comment on above: Result Comment: donna gonzalez 08-05-2020 influenza virus vacc ine, unspecified formulation [employer] [facility] 08-05-2020 pneumococcal conjuga te vaccine, 13 valent Natali [employer] [facility] 08-31-2019 influenza virus vacc ine, unspecified formulation [employer] [facility] 07-08-2018 influenza virus vacc ine, unspecified formulation [employer] [facility] 07-08-2018 zoster vaccine recombinant [employer] [facility] 03-25-2018 zoster vaccine recombinant [employer] [facility] 08-08-2017 influenza virus vacc ine, unspecified formulation [employer] [facility] 07-26-2017 influenza virus vacc ine, unspecified formulation Natali IRAHETA [facility] 07-19-2016 influenza virus vacc ine, unspecified formulation Natali IRAHETA [facility] 09-03-2015 influenza virus vacc ine, unspecified formulation Natali IRAHETA [facility] Payers Date Payer Category Payer Medicaid [employer]NA MEDICARE A DVANTAGE [id number] 2022 Medicare AETNA MEDICARE A DVANTAGE AETNA MEDICARE REPLACEMENT [id number] 2022-Present [address] [place] [address] [id number] 2022 Self-pay [id number] 2021 Medicare HMO [employer] MEDICARE [id number] 2019 Private Health Insurance [id number] 2017 Private Health Insurance [id number] 2015 Unknown [id number] Private Health Insurance [id number] 1952 Unknown [id number] 2.16.840.1.167302.3.579.2. 593 1952 Unknown [id number] 2.16.840.1.082144.3.579.2. 593 1952 Unknown [id number] 2.16.840.1.894962.3.579.2. 593 1952 Unknown [id number] 2.16.840.1.743125.3.579.2. 593 1952 Unknown [id number] 2.16.840.1.687365.3.579.2. 593 1952 Unknown [id number] 2.16.840.1.935745.3.579.2. 593 1952 Unknown [id number] 2.16.840.1.333047.3.579.2. 593 1952 Unknown [id number] 2.16.840.1.158546.3.579.2. 593 1952 Unknown [id number] 2.16.840.1.277008.3.579.2. 593 1952 Unknown [id number] 2.16.840.1.080143.3.579.2. 593 1952 Unknown [id number] 2.16.840.1.416588.3.579.2. 593 1952 Unknown [id number] 2.16.840.1.862846.3.579.2. 593 1952 Unknown [id number] 2.16.840.1.903103.3.579.2. 593 1952 Unknown [id number] 2.16.840.1.898630.3.579.2. 593 1952 Unknown [id number] 2.16.840.1.325922.3.579.2. 593 1952 Unknown [id number] 2.16.840.1.401058.3.579.2. 1286 1952 Unknown [id number] 2..840.1.251644.3.579.2. 1286 1952 Unknown [id number] 2.840.1.583897.3.579.2. 718 1952 Unknown [id number] 2..840.1.465421.3.579.2. 718 1952 Unknown [id number] 2.16.840.1.284280.3.579.2. 727 1952 Unknown [id number] 2.840.1.257942.3.579.2. 727 1952 Unknown [id number] 2.840.1.388750.3.579.2. 727 1952 Unknown [id number] 2.16.840.1.451056.3.579.2. 1259 1952 Unknown [id number] 2.16.840.1.909018.3.579.2. 1259 1952 Unknown [id number] 2.16.840.1.352746.3.579.2. 1259 1952 Unknown [id number] 2.16.840.1.416057.3.579.2. 1259 1952 Unknown [id number] 2.16.840.1.371268.3.579.2. 125 1952 Unknown [id number] 2.16.840.1.763777.3.579.2. 1258 1952 Unknown [id number] 2.16.840.1.522243.3.579.2. 1258 1952 Unknown [id number] 2.16.840.1.737970.3.579.2. 1258 1952 Unknown [id number] 2.16.840.1.748680.3.579.2. 1258 1952 Unknown [id number] 2.16.840.1.903805.3.579.2. 1258 1952 Unknown [id number] 2.16.840.1.212507.3.579.2. 1258 1952 Unknown [id number] 2.16.840.1.017251.3.579.2. 1258 1952 Unknown [id number] 2.16.840.1.603732.3.579.2. 1258 1952 Unknown [id number] 2.16.840.1.031829.3.579.2. 1258 1952 Unknown [id number] 2.16.840.1.276510.3.579.2. 1258 1952 Unknown [id number] 2.16.840.1.099407.3.579.2. 1258 1952 Unknown [id number] 2.16.840.1.030805.3.579.2. 1258 1952 Unknown [id number] 2.16.840.1.838719.3.579.2. 1258 1952 Unknown [id number] 2.16.840.1.903829.3.579.2. 1286 1952 Unknown [id number] 2.16.840.1.037386.3.579.2. 1286 Unknown [id number] Unknown [id number] 2.16.840.1.431486.3.579.2. 531 Unknown [id number] 2.16.840.1.451454.3.579.2. 531 Unknown [id number] 2.16.840.1.891621.3.579.2. 531 Social History Date Type Detail Facility Start: 05-07-2022 End: 01-29-2023 Tobacco smoking status Never smoked tobacco (finding) [facility] Work Phone: Start: 01-05-2021 End: 02-03-2024 Sex Assigned At Male [facility] Start: 1950 Sex Assigned At Male [facility] Tobacco smoking status Never [facility] Start: 01-29-2023 End: 08-12-2023 Tobacco use and exposure Smokeless tobacco non-user [facility] Start: 08-13-2024 End: 06-30-2025 Alcoholic beverage intake Ex-drinker (finding) [facility] Start: 01-05-2021 End: 02-03-2024 History of Social function [facility] Do you belong to any clubs or organizations such as islam groups, unions, fraternal or athletic groups, or [...] Not at all [facility] (I/We) worried sally er (my/our) food would run out before (I/we) got money to buy more. Never true [facility] In the past 12 month s, was there a time when you were not able to pay the mortgage or rent on time? No [facility] Start: 08-27-2023 Alcohol Comment caffeine 1-2 cups per day [facility] Start: 1950 Sex assigned at Not on file [facility] Start: 10-07-2024 End: 07-14-2025 Alcoholic beverage intake Current drinker of alcohol (finding) [facility] Start: 06-30-2015 End: 06-05-2019 Sex Male (finding) [facility] Start: 10-11-2020 Gender identity Identifies as male gender (finding) [facility] Start: 10-11-2020 Sexual orientation Heterosexual (finding) [facility] Sexual Orientation [facility] Medical Equipment Procedure Code Equipment Code Equipment Origin al Text Equipment Identifier Dates Mesh Brd Perfix Plug Med Rpl [id number] Rpl [id number] - [id number] - [id number][facility] Start: 09-23-2018 Mesh Brd Preshap e Hawkins 3x5 Rpl [id number] - [id number] - [id number][facility] Start: 09-23-2018 Comment on above: Description: 13.7 cm x 5.9 cm cut to fit defect Linr Actb 36mm F Ntrl E1 Clr - [id number][facility] Start: 07-10-2017 Hd Fem 36mm Opt G7 Blx D Hip Rpl [id number] - [id number] Start: 07-10-2017 Slv Fem Opt +3mm Tpr Hip Blx D Rpl [id number] - [id number] 62663[facility] Start: 07-10-2017 Stm Fem 125mm 13 3d 20 Hi Os - [id number] Start: 07-10-2017 Shell 62657[facility] Start: 07-10-2017 Goals Date Patient Goal Desired Activity /State Personal health goal Comment on above: Formatting of this n ote might be different from the original. Evaluation of progress towards goal: Maximize work with PT at discharge to strengthen R hip Functional Status Date Assessment Result Facility 04-05-2025 Functional Status N/A [facility] 03-29-2025 Patient Health Quest ionnaire 2 item (PHQ-2) [Reported] [facility] 10-12-2024 Functional Status N/A [facility] 06-24-2023 Functional Status N/A [facility] 05-07-2022 Functional Status N/A [facility] Clinical Notes 05-07-2022 to 07-27-2025 Kavya Germain DO - 07/14/2025 10:15 AM Sharon Chapin MD - 06/30/2025 8:37 AM Sharon Chapin MD - 06/30/2025 7:45 AM Jameson Carpenter MD - 05/12/2025 1:20 PM EDT Note Date & Type Note Facility 07-27-2025 Note [facility] Consult Note Reason for visit: Dizziness/SVT 07/27/25 Patient is here today for A-Fib management per Mike Courtney CNP. Patient states he feels pretty good. [...] Fib. Prior HPI: Oscar Escoto is a 75 y.o. year old with past medical history of atrial fibrillation that was diagnosed few years ago here he was admitted to [facility] with A. fib with rapid ventricular [...] 48 hours from 12/24/2021 to 12/10/2021 at [facility] was reviewed by me and shows PVC burden of less than 1% and PVC count of 6%. Occasional nonsustained atrial tachycardia few beats seen but no atrial fibrillation noted. No ventricular tachycardia noted EKG 10/17/2021 shows sinus rhythm with normal intervals Echocardiogram done at [place] on 09/06/2021 shows ejection fraction of 60% [...] ST depression during the stress test - Arrhyth (more content not included)... [facility] 07-14-2025 History of Present illness Narrative Images from the original note were not included. [facility] [id number] CONSULT NOTE CHIEF COMPLAINT Chief Complaint Patient presents with Hernia RECURRENT RIGHT SIDE INGUINAL HERNIA, REFERRED BY DR TAVARES Altman Kaleb is a 75 y.o. male who presents [...] not have not an ultrasound performed at [facility] on 07/02/2025 which demonstrated no evidence of testicular mass torsion orchitis or epididymitis. There were bilateral varicoceles and small bilateral hydroceles. 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 boxes and bags [...] 02/08/2023 Performed by Umair Decker MD at [facility] INJECTION BURSA LARGE JOINT: left ischial bursa Left 08/16/2023 Performed by Umair Decker MD at [facility] INJECTION LARGE JOINT BURSA Right 04/12/2017 Performed by Umair Decker MD at [facility] INJECTION MEDIAL BRANCH NERVE BLOCK: right [id number] 51mbb Right 08/12/2020 Performed by Umair Decker MD at [facility] INSERTION LOOP RECORDER 01/24/2023 Dr Amin at [facility] JOINT REPLACEMENT right hip ORTHOPEDIC SURGERY Left 2012 wrist fixation RADIO FREQUENCY ABLATION: right [id number] Right 09/23/2020 Performed by Umair Decker MD at [facility] REPAIR HERNIA INGUINAL WITH MESH Right 09/23/2018 Performed by Kavya Germain DO at [facility] REPAIR HERNIA UMBILICAL WITH MESH N/A 09/23/2018 Performed by Kavya Germain DO at [facility] REPLACEMENT TOTAL JOINT ANTERIOR SUPINE INTERMUSCULAR HIP Right 07/10/2017 Performed by Schuyler Ambrocio MD at [facility] SKIN BIOPSY several, see child nutrition assistant yearly TONSILLECTOMY UMBILICAL HERNIA REPAIR 2017 brought [...] Strain: Low Risk (02/03/2024) Received from [facility] Overall Financial Resource Strain (CARDIA) Difficulty of Paying Living Expenses: Not hard at all Food Insecurity: No Food Insecurity (10/07/2024) Hunger Screening Food Insecurity - Worry: Never True Food Insecurity - Inability: Never True Transportation Needs: No Transportation Needs (02/03/2024) Received from [facility] PRAPARE - Transportation Lack of Transportation (Medical): No Lack of Transportation (Non-Medical): No Physical Activity: Sufficiently Active (02/03/2024) Received from [facility] Exercise Vital Sign Days of Exercise per Week: 3 days Minutes of Exercise per Session: 60 min Stress: No Stress Concern Present (02/03/2024) Received from [facility] [employer] - Occupational Stress Questionnaire Feeling of Stress : Not at all Social Connections: Moderately Integrated (02/03/2024) Received from [facility] Social Connection and Isolation Panel [NHANES] Frequency of Communication with Friends and Family: Once a week Frequency of Social Gatherings with Friends and Family: Once a week Attends Alevism Services: More than 4 times per year Active Member of Clubs or Organizations: Yes Attends Club or Organization Meetings: More than 4 times per year Marital Status: Interpersonal Safety: Unknown (01/16/2024) Received from [facility] [place] Safety & Environment Fear of Current or Ex-Partner: Not on file Emotionally Abused: Not on file Physically Abused: Not on file Sexually Abused: Not on file Physically or Sexually Abused: Not on file Housing Instability: Low Risk (02/03/2024) Received from [facility] Housing Stability Vital Sign Unable to [...] patient/family/caregiver Referring and communicating with other health director of managed care - Kavya Germain DO 07/14/25 10:35 AM This note was created with the assistance of a speech recognition program. While intending to generate a timely document that accurately reflects the content of the visit, no guarantee can be provided that every grammatical or spelling mistake has been or will be identified or corrected. Thank you for your understanding. documented in this encounter [email or web address] [email or web address] 06-30-2025 History of Present illness Narrative Associated [...] Orders US scrotum documented in this encounter [facility] 05-12-2025 History of Present illness Narrative [...] limited to risks of scarring, darker or medical records director pigmentary changes, recurrence, infection, and incomplete removal [...] lidocaine used: 2.0 cc Previous accession number: [id number] Patient instructed to notify office of any [...] limited to risks of scarring, darker or medical records director pigmentary changes, recurrence, infection, and incomplete removal [...] lidocaine used: 2.0 cc Previous accession number: [id number] Patient instructed to notify office of any signs of recurrence prior to next scheduled visit. Next Visit: as scheduled documented in this encounter [facility] 04-30-2025 History of Present illness Narrative [...] BCC Check Margins: Yes Previous accession number: [id number] Next Visit: Has follow up scheduled documented in this encounter [facility] 04-21-2025 Note SUBJECTIVE Reason for Visit: Oscar Escoto is a 75 y.o. year old male patient being seen for 6-month follow-up visit. HPI: Oscar Escoto is a 75 y.o. year old male with significant medical history of atrial fibrillation that was diagnosed few years ago here he was admitted to [facility] with A. fib with rapid ventricular [...] Inspection: no join (more content not included)... [facility] 04-12-2025 History of Present illness Narrative Images [...] requiring urgent evaluation. documented in this encounter [facility] 04-05-2025 Hospital Discharge instructions Patient Education [...] including vitamins, herbs, eye drops, creams, and bwiu-til-vaavqmr medicines. Any problems you or family members [...] provider tells you to take them. Taking uxdg-pqo-avhfryq medicines, vitamins, herbs, and supplements. General instructions [...] provider. Document Revised: 05/11/2022 Document Reviewed: 05/11/2022 Foruforever Patient Education 2023 [employer]. Follow Up Care 10/12/2024 16:19:37 With:ESEQUIEL RUSSELL, Natali Gonzalez, URL Address: [facility] [address], [place] [address]- [phone] When: Unknown Comments:sched orchiectomy in September [facility] [place] 04-05-2025 Note Patient Education Oncology Orchiectomy An [...] including vitamins, herbs, eye drops, creams, and gjcw-lpm-vdbazhx medicines. ??? Any problems you or family [...] tells you to take them. ??? Taking geni-cax-ikzihwy medicines, vitamins, herbs, and supplements. General instructions [...] You may have (more content not included)... [facility] 03-29-2025 History of Present illness Narrative Associated [...] wasn't as active. Plans on returning to [facility] several days a week. Resumed walking [...] disorder, unspecified type documented in this encounter [facility] 03-24-2025 History of Present illness Narrative [...] ACTINIC KERATOSIS (9) Left Buccal Cheek, Left Confucianism, Right Buccal Cheek, Right Dorsal Hand (2), [...] limited to risks of scarring, darker or medical records director pigmentary changes, recurrence, incomplete removal and infection. [...] skin lesion - Left Buccal Cheek, Left Confucianism, Right Buccal Cheek, Right Dorsal Hand (2), [...] lesion: 2.0 x 1.7 cm Right Forearm Irving scaly plaque Lesion biopsy Type of biopsy: [...] lesion: 2.3 x 2.0 cm Left sanders Irving papule Lesion biopsy Type of biopsy: tangential [...] 6 months-skin check documented in this encounter [facility] 2025 History of Present illness Narrative [...] develop for requiring urgent evaluation. 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 documented in this encounter [facility] 03-08-2025 Note [id number] [facility] 03-01-2025 Note [facility] SURGERY Clinical Discharge Summary PERSON INFORMATION Name OSCAR ESCOTO Age 74 Years 1950 Sex MALE Language Paraguayan PCP [place] Marital Status Phone Med Service Ambulatory Surgery N [id number] Acct# Arrival 03/01/2025 08:45:44 Visit Reason SURGERY - LEFT KNEE ARTHROSOCPY - LATERAL MENISCUS TEAR [facility] 066 02:01 Address: [address] [place] [address] Comment: PROVIDER INFORMATION VITALS INFORMATION Vital Sign [...] every day. Comme (more content not included)... [facility] 02-26-2025 Telephone encounter Note Post op pain rx. PDMP reviewed [facility] 02-26-2025 Miscellaneous Notes Post op pain rx. PDMP reviewed documented in this encounter [facility] 02-02-2025 History of Present illness Narrative [...] surgery scheduled. KNEE SCOPE 03/01/[address] [facility] 02/02/25 @ [address] [place] [address] 02/02/25 @ [facility] Follow up for Post-Op 03/15/25 @ [address] [place] [address]. documented in this encounter [facility] 12-25-2024 History of Present illness Narrative Images from the original note were not included. HISTORY OF PRESENT ILLNESS: EST PT Oscar Escoto is an 74 y.o. @ male. (EST PT-PREVIOUSLY SAW MARY LOU DIANE ON 11/30/24) RECHECK (L) KNEE PAIN; HERE FOR MRI RESULTS DONE ON 12/18/24 AT [facility]. XRAY B/L AP WB KNEES 11/09/24 IN [facility] XRAY (L) KNEE 10/07/24 [facility] MRI (L) KNEE 12/18/24 [facility] DEPO MEDROL INJ 11/09/24 - 50% IMPROVEMENT [...] requiring urgent evaluation. documented in this encounter [facility] 12-11-2024 Telephone encounter Note Patient called stating that [facility] in [place] did not receive the rx needed prior to MRI being done. Please advise. [facility] 12-11-2024 Miscellaneous Notes Patient called stating that [facility] in [place] did not receive the rx needed prior to MRI being done. Please advise. documented in this encounter [facility] 12-10-2024 Telephone encounter Note Faxed referral, MRI order, office notes and XR report to [facility]. [facility] 12-10-2024 Miscellaneous Notes Faxed referral, MRI order, office notes and XR report to [facility]. Patient called and left that he spoke with [facility]. They received authorization for his MRI. They have not received requested notes so they cannot schedule him until they receive the notes. Please advise. documented in this encounter [facility] 12-10-2024 Telephone encounter Note Patient called and left that he spoke with [facility]. They received authorization for his MRI. They have not received requested notes so they cannot schedule him until they receive the notes. Please advise. [facility] 11-30-2024 History of Present illness Narrative [...] f/u s/p MRI to be done at [facility]. documented in this encounter [facility] 11-10-2024 Note [facility] Note [...] years ago here he was admitted to [facility] with A. fib with rapid ventricular [...] 48 hours from 12/24/2021 to 12/10/2021 at [facility] was reviewed by me and shows PVC burden of less than 1% and PVC count of 6%. Occasional nonsustained atrial tachycardia few beats seen but no atrial fibrillation noted. No ventricular tachycardia noted EKG 10/17/2021 shows sinus rhythm with normal intervals Echocardiogram done at [place] on 09/06/2021 shows ejection fraction of 60% [...] spondylosis without myel (more content not included)... [facility] 11-09-2024 History of Present illness [...] been going to therapy in [facility] with improvement in strength but continues [...] Wakes pt at HS. 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 [place]: Pain management 10/07/24, heat, TYL, [...] the left knee done on 10/08/24 at [facility] reveals tricompartmental arthritis, no fractures noted. I [...] he understands this documented in this encounter [facility] 10-29-2024 History of Present illness Narrative [...] and sit to stands at home. Pain: 1-710 Objective: PT Evaluation (10/20/2024) Left KNEE AROM: [...] to be instructed in home exercise program. Quality Rep Goals: To be met in 10 weeks [...] sign below. Date: documented in this encounter [facility] 10-20-2024 History of Present illness Narrative [...] Outcome Measure: Lower Extremity Functional Scale (LEFS): 31/80 Rehab Diagnosis: left knee pain and weakness; difficulty walking Short Term Goal: To be met in 2 weeks Goal 1: Pt to be instructed in home exercise program. Quality Rep Goals: To be met in 10 weeks [...] sign below. Date: documented in this encounter [facility] 10-12-2024 Hospital Discharge instructions Patient Education [...] Follow these instructions at home: Medicines Take wgua-hmv-fqntsog and prescription medicines only as told by [...] provider. Document Revised: 06/20/2022 Document Reviewed: 06/20/2022 Foruforever Patient Education 2023 [employer]. Follow Up Care 06/24/2023 16:43:14 With:ESEQUIEL RUSSELL, Natali Gonzalez, URL Address: [facility] [address], [place] [address] [phone] When: Unknown Comments:6 mos [facility] 10-12-2024 Note Patient Education Urology Epididymitis Epididymitis [...] these instructions at home: Medicines ??? Take rkrr-uop-ygatdhk and prescription medicines only as told by [...] by your heal (more content not included)... [facility] 10-07-2024 History of Present illness Narrative [facility] [address] [place] [address] Patient: Oscar Escoto Sex: male : 1950 [...] Impairment. Past Medical History: Diagnosis Date Afib ([facility]) Back pain lumbar BPH (benign prostatic hyperplasia) Cancer ([facility]) multiple basal cell Chronic pain disorder [...] 02/08/2023 Performed by Umair Decker MD at [facility] INJECTION BURSA LARGE JOINT: left ischial bursa Left 08/16/2023 Performed by Umair Decker MD at [facility] LARGE JOINT BURSA Right 04/12/2017 Performed by Umair Decker MD at [facility] MEDIAL BRANCH NERVE BLOCK: right L34 45 51mbb Right 08/12/2020 Performed by Umair Decker MD at [facility] INSERTION LOOP RECORDER 01/24/2023 Dr Amin at [facility] JOINT REPLACEMENT right hip ORTHOPEDIC SURGERY Left 2013 wrist fixation RADIO FREQUENCY ABLATION: right [id number] Right 09/23/2020 Performed by Umair Decker MD at [facility] REPAIR HERNIA INGUINAL WITH MESH Right 09/23/2018 Performed by Kavya Germain DO at [facility] REPAIR HERNIA UMBILICAL WITH MESH N/A 09/23/2018 Performed by Kavya Germain DO at [facility] REPLACEMENT TOTAL JOINT ANTERIOR SUPINE INTERMUSCULAR HIP Right 07/10/2017 Performed by Schuyler Ambrocio MD at [facility] TONSILLECTOMY WRIST SURGERY No Known Allergies Family [...] Strain: Low Risk (02/03/2024) Received from [facility], [facility] Overall Financial Resource Strain (CARDIA) Difficulty of Paying Living Expenses: Not hard at all Food Insecurity: No Food Insecurity (10/07/2024) Hunger Screening Food Insecurity - Worry: Never True Food Insecurity - Inability: Never True Transportation Needs: No Transportation Needs (02/03/2024) Received from [facility] PRAPARE - Transportation Lack of Transportation (Medical): No Lack of Transportation (Non-Medical): No Physical Activity: Sufficiently Active (02/03/2024) Received from [facility] Exercise Vital Sign Days of Exercise per Week: 3 days Minutes of Exercise per Session: 60 min Stress: No Stress Concern Present (02/03/2024) Received from [facility] [employer] - Occupational Stress Questionnaire Feeling of Stress : Not at all Social Connections: Moderately Integrated (02/03/2024) Received from [facility] Social Connection and Isolation Panel [NHANES] Frequency of Communication with Friends and Family: Once a week Frequency of Social Gatherings with Friends and Family: Once a week Attends Alevism Services: More than 4 times per year Active Member of Clubs or Organizations: Yes Attends Club or Organization Meetings: More than 4 times per year Marital Status: Interpersonal Safety: Unknown (01/16/2024) Received from [facility] [place] Safety & Environment Fear of Current or Ex-Partner: Not on file Emotionally Abused: Not on file Physically Abused: Not on file Sexually Abused: Not on file Physically or Sexually Abused: Not on file Housing Instability: Low Risk (02/03/2024) Received from [facility] Housing Stability Vital Sign Unable to Pay [...] CNA 10/07/24 1420 Cecilia Anderson PA-C 10/07/24 [id number] documented in this encounter [facility] 08-13-2024 History of Present illness Narrative Images [...] Scalp (5), Right Anterior Neck, Right Mid Malone, Right Parotid Area, Right Posterior Neck, Right Preauricular Area, Right Superior Malone, Right Confucianism, Right Temporal Scalp Erythematous scaly papules Patient [...] limited to risks of scarring, darker or medical records director pigmentary changes, recurrence, incomplete removal and infection. [...] Scalp (5), Right Anterior Neck, Right Mid Malone, Right Parotid Area, Right Posterior Neck, Right Preauricular Area, Right Superior Malone, Right Confucianism, Right Temporal Scalp 6. History of basal [...] months skin check documented in this encounter [facility] 06-24-2023 Hospital Discharge instructions Patient Education [...] urethra. Follow these instructions at home: Take lxns-ldd-apsdhed and prescription medicines only as told by [...] provider. Document Revised: 05/30/2022 Document Reviewed: 05/30/2022 Foruforever Patient Education 2022 [employer]. Follow Up Care 05/07/2022 15:53:47 With:ESEQUIEL RUSSELL, Natali Gonzalez, URL Address: [facility] [address] , [place] [address]- [phone] When: Unknown Comments:1 yr w/ PSA [facility] 12-18-2022 Note PROCEDURE: XR FOOT L [...] authenticated by: MARÍA BRYSON Date: 2022-12-18 09:32 [facility] 11-06-2022 Note PROCEDURE: XR FOOT L T [...] authenticated by: RAZ MATOS Date: 2022-11-06 15:27 [facility] 10-17-2022 Note PROCEDURE: XR FOOT L T [...] authenticated by: RAZ MATOS Date: 2022-10-17 10:46 [facility] 09-27-2022 Note PROCEDURE: XR FOOT L T [...] fusion with postsurgical changes Electronically authenticated by: MRAÍA BRYSON Date: 2022-09-27 18:29 [facility] 05-15-2022 Note PROCEDURE: XR FOOT R T [...] by: MARÍA BRYSON Date: 2022-05-15 21:39 [facility] 05-07-2022 Hospital Discharge instructions Patient Education [...] 11/11/2006 Document Revised: 07/31/2019 Document Reviewed: 10/11/2017 Foruforever Patient Education 2020 [employer]. 05/07/2022 15:46:01 Benign Prostatic Hyperplasia Benign Prostatic [...] urethra. Follow these instructions at home: Take wgwl-iny-wiaxhck and prescription medicines only as told by [...] 11/11/2006 Document Revised: 10/06/2019 Document Reviewed: 12/16/2017 Foruforever Patient Education 2020 [employer]el[employer]. Follow Up Care 09/04/2021 16:41:31 With:Natali IRAHETA MD, URL Address: [facility] [address], [place] [address] [phone] When:Within 1 Year(s) Comments:f/u in 1 year with PSA and [facility] Evaluation + Plan note Future Appointments Appointment Date:05/13/2023 03:00:00 PM Scheduled Provider:Natali IRAHETA MD Location:[facility] Appointment Type:URO Office Visit Diagnostic Tests PendingPSA Total 05/07/22 [facility] Evaluation + Plan note Future Appointments Appointment Date:06/29/2024 03:00:00 PM Scheduled Provider:Natali IRAHETA MD Location:[facility] Appointment Type:URO Office Visit Diagnostic Tests PendingPSA Total 06/24/23 [facility] Evaluation + Plan note Future Appointments Appointment Date:04/12/2025 01:15:00 PM Scheduled Provider:[facility] Office Visit Diagnostic Tests PendingPSA Total 10/12/24 [facility] Evaluation + Plan note Future Appointments Appointment Date:10/25/2025 10:15:00 AM Scheduled Provider:Natali IRAHETA MD Location:[facility] Appointment Type:URO Office Visit [facility] [facility] Evaluation note No assessment inform ation available [facility] Work Phone: Evaluation note Diagnosis Transient [...] unspecified chronicity- Primary documented in this encounter [facility]* Diagnosis Medicare annual wellness visit, [...] including hip- Primary documented in this encounter [facility] HealthcareEvaluation note* Diagnosis Medicare annual wellness visit, [...] limb, including hip documented in this encounter [facility] HealthcareEvaluation note* Diagnosis Medicare annual wellness visit, [...] Primary H/O epididymitis documented in this encounter [facility] HealthcareEvaluation note* Diagnosis Chronic epididymitis- Primary [facility] Narrative No data available for this section [facility] InstructionsNot on filedocumented in this encounter [facility] System[facility]ructionsNot on filedocumented in this encounter [facility] No data available for this section [facility] reason for referral (narrative)* Clinic-Administered Medication (Routine) - Closed Specialty Diagnoses / Procedures Referred By Contac t Referred To Contact Orthopaedic Surgery Procedures L Inj/Asp: L knee Mary Lou Diane, NAHEED [address] [place] [address] Phone: tel: fax: Referral ID Status Reason Start Date Expiration Date Visits Re quested Visits Authorized [id number] Closed 11/09/2024 05/08/2025 1 1 [facility] N[facility]* Rehabilitation - Outpatient (Routine) - Authorized Specialty Diagnoses / Procedures Referred By Contac t Referred To Contact Physical Therapy Diagnoses Pain in left knee Procedures [place] PHYSICAL THERAPY EVALUATION LOW COMPLEX 20 MINS [place] OFFICE/OUTPATIENT NEW HIGH Cecilia Sanchez MD [address] [place] [address] Phone: tel: fax: Yenny Rowe PT Referral ID Status Reason Start Date Expiration Date V isits Requested Visits Authorized [id number] Authorized 10/20/2024 04/18/2025 99 99 [facility] HealthcareReason for visit Narrative* Rehabilitation - Outpatient (Routine) - Authorized Specialty Diagnoses / Procedures Referred By Contac t Referred To Contact Physical Therapy Diagnoses Pain in left knee Procedures [place] PHYSICAL THERAPY EVALUATION LOW COMPLEX 20 MINS [place] OFFICE/OUTPATIENT NEW HIGH Cecilia Sanchez MD [address] [place] [address] Phone: tel: fax: Yenny Rowe PT Referral ID Status Reason Start Date Expiration Date V isits Requested Visits Authorized [id number] Authorized 10/20/2024 11/24/2024 99 99 [facility] Chief Complaint and Reason for [...] Dates Sakina Carpenter MD Attending Provider Active Radio Producer Relationship Specialty Start Date End Date North Chapin MD [address] [place] [phone] PCP - General Family Medicine 02/04/24 North Chapin MD [address] [place] [address] PCP - [employer] 02/24/24 Radio Producer Relationship Specialty Start Date End Date North Chapin MD [address] [place] [address] PCP - General Family Medicine 02/04/24 North Chapin MD [address] [place] [address] PCP - [employer] 02/24/24 Radio Producer Relationship Specialty Start Date End Date North Chapin MD [address] [place] [address] PCP - General Family Medicine 02/04/24 North Chapin MD [address] [place] [address] PCP - [employer] 02/24/24 Radio Producer Relationship Specialty Start Date End Date North Chapin MD [address] [place] [address] PCP - General Family Medicine 02/04/24 North Chapin MD [address] [place] [address] PCP - [employer] 02/24/24 Radio Producer Relationship Specialty Start Date End Date North Chapin MD [address] [place] [address] PCP - General Family Medicine 02/04/24 North Chapin MD [address] [place] [address] PCP - [employer] 02/24/24 Radio Producer Relationship Specialty Start Date End Date North Chapin MD [address] [place] [address] PCP - General Family Medicine 02/04/24 North Chapin MD [address] [place] [address] PCP - [employer] 02/24/24 Radio Producer Relationship Specialty Start Date End Date North Chapin MD [address] [place] [address] PCP - General Family Medicine 02/04/24 North Chapin MD [address] [place] [address] PCP - [employer] 02/24/24 Radio Producer Relationship Specialty Start Date End Date North Chapin MD [address] [place] [address] PCP - General Family Medicine 02/04/24 North Chapin MD [address] [place] [address] PCP - [employer] 02/24/24 Radio Producer Relationship Specialty Start Date End Date North Chapin MD [address] [place] [address] PCP - General Family Medicine 02/04/24 North Chapin MD [address] [place] [address] PCP - [employer] 02/24/24 Radio Producer Relationship Specialty Start Date End Date North Chapin MD [address] [place] [address] PCP - General Family Medicine 02/04/24 North Chapin MD [address] [place] [address] PCP - [employer] 02/24/24 Radio Producer Relationship Specialty Start Date End Date North Chapin MD [address] [place] [address] PCP - General Family Medicine 02/04/24 North Chapin MD [address] [place] [address] PCP - [employer] 02/24/24 Radio Producer Relationship Specialty Start Date End Date North Chapin MD [address] [place] [address] PCP - General Family Medicine 02/04/24 North Chapin MD [address] [place] [address] PCP - [employer] 02/24/24 Radio Producer Relationship Specialty Start Date End Date North Chapin MD [address] [place] [address] PCP - General Family Medicine 02/04/24 North Chapin MD [address] [place] [address] PCP - [employer] 02/24/24 Radio Producer Relationship Specialty Start Date End Date North Chapin MD [address] [place] [address] PCP - General Family Medicine 02/04/24 North Chapin MD [address] [place] [address] PCP - [employer] 02/24/24 Radio Producer Relationship Specialty Start Date End Date North Chapin MD [address] [place] [address] PCP - General Family Medicine 02/04/24 North Chapin MD [address] [place] [address] PCP - [employer] 02/24/24 Radio Producer Relationship Specialty Start Date End Date North Chapin MD [address] [place] [address] PCP - General Family Medicine 02/04/24 North Chapin MD [address] [place] [address] PCP - [employer] 02/24/24 Radio Producer Relationship Specialty Start Date End Date North Chapin MD [address] [place] [address] PCP - General Family Medicine 02/04/24 North Chapin MD [address] [place] [address] PCP - [employer] 02/24/24 Radio Producer Relationship Specialty Start Date End Date North Chapin MD [address] [place] [address] PCP - General Family Medicine 10/07/24 Radio Producer Relationship Specialty Start Date End Date North Chapin MD [address] [place] [address] PCP - General Family Medicine 02/04/24 North Chapin MD [address] [place] [address] PCP - [employer] 02/24/24 Radio Producer Relationship Specialty Start Date End Date North Chapin MD [address] [place] [address] PCP - [facility] 02/04/24 North Chapin MD [address] [place] [address] PCP [facility] 02/24/24 Radio Producer Relationship Specialty Start Date End Date North Chapin MD [address] [place] [address] PCP [facility] 02/04/24 North Chapin MD [address] [place] [address] PCP [facility] 02/24/24 Radio Producer Relationship Specialty Start Date End Date North Chapin MD [address] [place] [address] PCP [facility] 02/04/24 North Chapin MD [address] [place] [address] [facility] 02/24/24 Radio Producer Relationship Specialty Start Date End Date North Chapin MD PCP [facility] Medicine 10/07/24 Goals (unrecognized section and content) Goals may be documented in a n alternate section (unrecognized sect ion and content) No Status Records FoundNo Status Records FoundNo Status Records FoundNo Status Records FoundNo Status Records FoundNo Status Records FoundNo Status Records FoundNo Status Records Found INFORMATION SOURCE (unrecogn ized section and content) DATE CREATED AUTHOR 03/24/2023 [facility] DATE CREATED AUTHOR AUTHOR'S ORGANIZ ATION 04/10/2023 [facility] DATE CREATED AUTHOR AUTHOR'S ORGANIZ ATION 10/09/2024 [facility] DATE CREATED AUTHOR AUTHOR'S ORGANIZ ATION 04/02/2025 [facility] DATE CREATED AUTHOR AUTHOR'S ORGANIZ ATION 04/06/2025 [facility] DATE CREATED AUTHOR AUTHOR'S ORGANIZ ATION 07/02/2025 [facility] DATE CREATED AUTHOR AUTHOR'S ORGANIZ ATION 07/16/2025 [facility] DATE CREATED AUTHOR AUTHOR'S ORGANIZ ATION 08/03/2025 [facility] Reason for Visit (unrecogniz ed section and [...] pain, right History of inguinal hernia Procedures [place] OFFICE OUTPATIENT VISIT 60-74 MINS HIGH MDM [id number] (SNOMED CT) - AMB REFERRAL TO GENERAL SURGERY North Chapin MD [address] [place] [address] Phone: tel: fax: Kavya Germain, [address] [place] [phone] Phone: tel: fax: Referral ID Status Reason Start Date Expiration Date Visits Re quested Visits Authorized [id number] Closed 07/06/2025 01/02/2026 1 1 FOR RECORDS [...] ON THE PRIMARY CLINICAL RECORDS. [facility] [employer] [facility]. provides no warranty or guarantee of the accuracy or completeness of information in this document.
--- NOTE | 2025-08-03 11:16 | PC.NURSE ---
Nursing Note Cardiac Stress Test Reviewed: Medication, allergies and patient history reviewed. Stress Test: [x ] Patient tolerated stress test well. [ ] Patient unable to tolerate walking on treadmill. Switched to Lexiscan stress test. [x ] No chest pain noted per patient [ ] Chest pain that resolved prior to leaving stress lab. [ ] No dyspnea noted. [x ] Dyspnea that resolved prior to leaving stress lab. [x ] Patient left stress lab asymptomatic and hemodynamically stable. [ ] Patient taken to the Emergency Room due to non-resolving symptoms following stress test. [ x] Patient achieved target heart rate. [ ] Patient unable to achieve target heart rate. [ ] Aminophylline administered as reversal agent to Lexiscan (Regadenoson). [ ] Nitro administered. Nursing Comments:Pt had Cardiolite test done. No chest pain and minimal SOB noted. Pt ambulated to cafeteria for breakfast prior to second set of images.
--- NOTE | 2025-08-03 13:47 | PM.STRESS ---
Stress Test Stress Test Allergies Allergy/AdvReac Type Severity Reaction Status Date / Time No Known Drug Allergies Allergy Verified 03/08/25 18:16 Requesting physician: Tiago Wilburn Procedure: Treadmill exercise cardiolyte stress test General Information: Reason for Stress Test: [Pre-procedure; ablation, abnormal ECG] Cardiac History and Risk Factors: [HTN, AF] Resting 12 - Lead Electrocardiogram: Sinus bradycardia Otherwise normal ECG Stress Test: Protocol: [Treadmill; Vance Protocol. The patient exercised for 8:32 minutes, reaching stage 3 of the Vance Protocol and achieving 10.10 METs. The test was terminated due to achievement of target heart rate and fatigue. Resting HR was 51 bpm with a peak HR of 126 bpm which is 85% of MPHR. Resting BP is 108/66 with a maximum of 162/70] Exercise Capacity: [Functional capacity: high] Blood Pressure Response: [Appropriate] Rhythm: [Sinus with PVCs and couplets] ST - Response: [No significant ST T wave changes; non specific upsloping ST depressions] Patient Response: [No chest pain] Interpretation: 1. No ischemic ST-T wave changes on treadmill stress test. 2. Premature ventricular complexes and couplets seen. 3. Appropriate BP and HR response to exercise. 4. Gomez Treadmill Score +8.3. Estimated 1-Year Mortality: 0.3-0.9 %. Risk Category: Low Risk. Angiography: Usually not indicated. 5. Nuclear images to be read, interpreted and reported seperately.
== END 2025-08-03 09:19 | disposition home or self-care (01) ==
LOC: NM 09:18
PROVIDERS: PCP Family Medicine; Visit Provider Internal Medicine Cardiovascular Disease
DX: Z01.818 Encounter for other preprocedural examination (principal); R94.31 Abnormal electrocardiogram [ECG] [EKG]
CPT/HCPCS: 78452; 93017; A9500

== ENCOUNTER 2025-09-06 17:16 | Emergency (ER) | payer MEDICARE, SELFPAY ==
[2025-09-06 17:22] VITALS: BP 124/48; PULSE 74; TEMP 37.6; O2SAT 97; BMI 31.5
--- OUTSIDE RECORDS SUMMARY | 2025-09-06 17:27 | XMS_ITS | CCD ---
Author Organization [facility] Care Team Providers Care Manager Music Name Role Phone NORTH CHAPIN Primary Care Physician [phone] DO Miguel Astorga Attending Provider [phone] MD North Chapin Primary Care Provider Miguel [...] Unavailable Tavares RUSSELL, North Primary Care Provider North Chapin MD Unavailable North Chapin MD Primary Care Provider NORTH CHAPIN Primary Care Unavailable ENRRIQUE WALDROP Attending Unavailable STEPANIC, ENRRIQUE Sweeney Admitting Unavailable STEPANIC, ENRRIQUE Sweeney Attending Unavailable STEPARGENTINA, ENRRIQUE Sweeney Admitting Unavailable NADERER, NORTH Hines Primary Care Unavailable JR. MONTY, ENRRIQUE Sweeney Attending UnavailBUD Gonzalez Attending Unavailable HERNANDEZ, NNEKA Paige Attending Unavailable PETITTI, SAKINA Hines Attending Unavailable NADERER, NORTH Attending Unavailable HERNANDEZ, NNEKA Paige Attending Unavailable PETITTI, SAKINA A Attending Unavailable PETITTI, SAKINA A Attending Unavailable [...] APLING, MARY LOU Peterson Attending Unavailable Naderer , North Primary Care Provider KAVYA GERMAIN Attending Unavailable NADERER, NORTH Referring [...] ROXANNE Referring Unavailable BRENNAN, ROXANNE Referring Unavailable IRAHETANatali Attending Unavailable ESEQUIEL, Natali Gonzalez Attending Unavailable Natali IRAHETA Attending Unavailable Natali IRAHETA Attending Unavailable AMERICA AMBROCIO Referring Unavailable NADERER, NORTH Primary Care Unavailable AMERICA AMBROCIO Attending Unavailable NADERER, NORTH Referring Unavailable NADERER, NORTH Primary Care Unavailable Allergies Allergy Classification Reported Allergen(s) Allergy Type Date of Onset Reaction(s) Facility (2 sources) No Known Medication Allergies; Translations: [No Known Medication Allergies] Propensity to adverse reactions to drug (disorder) [facility] Repository Medications Current Medications Medication Drug [...] every six hours for pain HYDROcodone-acetami nophen ([place]) 5-325 MG tablet Indications: Internal derangement of [...] day(s), # 60 tab(s), Refills(s) 0, Pharmacy: [facility], 189, cm, 10/12/24 15:38:00 EST, Height/Length Dosing, 107, kg, 10/12/24 15:38:00 EST, Weight Dosing Start Date: 10/12/24 Stop Date: 11/11/24 Status: Ordered End: 12-24-2024 take 1 tablet by mouth every twelve hours ciprofloxacin (Cipro) 500 MG tablet Take 500 mg by mouth every 12 (twelve) hours 12/24/2024 Discontinued DAILY MULTI-VITAMIN ORAL (4 sources) take 1 tablet by tarah th [...] Date: 10/28/19 Status: Ordered Start: 06-10-2018 End: 09-01-2025 take 1 capsule by mouth every twenty-four hours in the morning DILT-XR 180 mg 24 hr capsule Take 1 capsule (180 mg total) by mouth in the morning. 06/10/2018 09/01/2025 Discontinued DilTIAZem (Eqv-Dilacor XR) 180 mg/24 hours oral capsule, extended release (2 sources) Start: 06-24-2023 DilTIAZem (Eqv-Dilacor XR) 180 mg/24 hours oral capsule, extended release Refills(s) 0 Start Date: 06/24/23 Status: Ordered dilTIAZem HCL in NaCl,iso-osm 100 mg/100 mL (1 mg/mL) solution (1 source) dilTIAZem HCL in NaCl,iso-osm 100 mg/100 mL (1 mg/mL) solution dilTIAZem HCl Active doxepin hydrochloride 50 mg oral capsule (20 [...] (20 sources) 5-alpha Reductase Inhibitor Start: 06-17-20 18 End: 08-26-20 finasteride (PROSCAR) 5 mg tablet 06/17/2018 Active flecainide acetate 100 mg oral tablet (1 source) Antiarrhythmic take 1 tablet by mouth in the morning, then take 1 tablet by mouth at bedtime flecainide (TAMBOCOR) 100 mg tablet Take 1 tablet (100 mg total) by mouth in the morning and 1 tablet (100 mg total) before bedtime. Active levoFLOXacin 750 mg oral tablet (1 [...] relations, # 30 tab(s), Refills(s) 2, Pharmacy: [address], 189, cm, 05/07/22 14:58:00 EDT, Height/Length Dosing, 129, kg, 05/07/22 14:58:00 EDT, Weight Dosing Start Date: 05/07/22 Status: Ordered tadalafil 20 mg oral tablet (2 sources) Phosphodiesterase 5 Inhibitor Start: 06-24-2023 take 1 tablet by mouth once daily Cialis 20 mg Tab 20 mg = 1 tab(s), Oral, Daily, # 39 tab(s), Refills(s) 2, Pharmacy: [facility][id number], 189, cm, 05/07/22 14:58:00 EDT, Height/Length Dosing, 107, kg, 06/24/23 15:49:00 EDT, Weight Dosing Start Date: 06/24/23 Status: Ordered tamsulosin hydrochloride 0.4 mg oral capsule (20 sources) alpha-Adrenergic Neeta Start: 04-06-2022 take 1 capsule by mouth once daily Flomax 0.4 mg Cap 0.4 mg = 1 cap(s), Oral, Daily, # 90 cap(s), Refills(s) 3, Pharmacy: [facility], 189, cm, 08/26/23 11:12:00 EDT, Height/Length Dosing, 107, kg, 06/24/23 15:49:00 EDT, Weight Dosing Start Date: 03/23/24 Status: Ordered take 1 capsule by [facility] every twenty-four hours in the morning [...] 02-04-2024 Chronic Other aftercare (1 source) Other fci (current) drug therapy; Translations: [OTH 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 CURRENT DRUG THERAPY] Onset: 03-11-2023 Episodic Other circulatory disease (2 sources) Presence of other cardiac implants and grafts; Translations: [Presence of other cardiac implants and grafts] Onset: 04-21-2025 Chronic Other connective tissue disease (2 sources) Presence of right artificial hip joint; Translations: [PRESENCE RIGHT ARTIFICIAL HIP JOINT] Onset: 12-10-2022 Chronic Other connective tissue disease (2 sources) History of total hip arthroplasty; Translations: [Presence of right artificial hip joint] Onset: 09-01-2025 09-01-2025 Chronic Other diseases of kidney and ureters [...] source) Knee pain Onset: 10-07-2024 Episodic Other non-traumatic joint disorders (1 source) Hip pain; Translations: [Pain in left hip] 08-16-2025 Episodic Other non-traumatic joint disorders (1 source) Pain in left hip; Translations: [Pain in left hip] Onset: 09-01-2025 Episodic Other nutritional; endocrine; and metabolic disorders [...] Onset: 02-04-2024 02-04-2024 Chronic Residual codes; unclassified (4 sources) Sleep apnea; Translations: [Sleep apnea, unspecified] [...] unspecified] Onset: 07-15-2025 Episodic Residual codes; unclassified (1 source) Pain Onset: 09-01-2025 Episodic Spondylosis; intervertebral disc disorders; other back [...] source) intermediate (current) use of aspirin; Translations: [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 CURRENT USE OF ASPIRIN] Onset: 12-10-2022 Episodic Other aftercare (20 sources) Long-term current use of drug therapy; Translations: [Other fci (current) drug therapy] Onset: 03-17-2024 03-17-2024 Episodic [...] Onset: 05-17-2022 Episodic Other connective tissue disease (4 sources) Ischial bursitis ; Translations: [Other bursitis [...] Test Name Value Interpretation Reference Range Facility XR HIP LT 2-3 VIEWS W OR WO PELVISon 09-01-2025 XR HIP LT 2-3 VIEWS W OR WO PELVIS XR HIP LT 2-3 VIEWS W OR WO PELVIS XR HIP LT 2-3 VIEWS W OR WO PELVIS Left hip pain Findings: There is grossly no fracture or destructive lesion. Impression: * No acute findings. Severe arthritis left hip bone on bone which appear slightly worse than June 21, 2022 * Right hip prosthesis shows no acute findings within limitations of frontal view only. * Consider MRI if you suspect occult process. Finalized by Eddie Meeks MD on 09/01/2025 1:27 PM [facility] 36on 08-05-2025 36 S/p stress test resu lt from 08/03/2025. Dr. Amin is starting patient on flecainide 100mg bid. Patient informed of normal stress test and will start flecainide. RX sent. [facility] Orders Onlyon 08-03-2025 Orders Only [id number] Oscar Escoto 1950 M Date Provider Department Center 08/03/2025 [id number], HISTORICAL CARD [facility] Family History Problem Relation Age of Onset Other Mother Coronary artery disease Mother Other Father Family Status - Relation Status Age at Mother Father [facility] Office Visiton 07-27-2025 Follow-up visit [id number] Oscar Escoto 1950 M Date Provider Department Center 07/27/2025 ROXANNE MARTINEZ CARD [facility] Family History Problem Relation Age of Onset Other Mother Coronary artery disease Mother Other Father Family Status - Relation Status Age at Mother Father Level of Service:72746 [place] OFFICE/OUTPATIENT ESTABLISHED LOW MDM 20 MIN [facility] Orders Onlyon 07-27-2025 Orders Only [id number] Oscar Escoto 1950 M Date Provider Department Center 07/27/2025 ROXANNE MARTINEZ HVC CARD [facility] Family History Problem Relation Age of Onset Other Mother Coronary artery disease Mother Other Father Family Status - Relation Status Age at Mother Father Normal [facility] Orders Only [id number] Oscar Escoto 1950 M Date Provider Department Center 07/27/2025 [id number], HISTORICAL CARD [facility] Family History Problem Relation Age of Onset Other Mother Coronary artery disease Mother Other Father Family Status - Relation Status Age at Mother Father [facility] Orders Onlyon 07-12-2025 Orders Only [id number] Oscar Escoto 1950 M Date Provider Department Center 07/12/2025 PERRI CAMPO HVC CARD [facility] Family History Problem Relation Age of Onset Other Mother Coronary artery disease Mother Other Father Family Status - Relation Status Age at Mother Father Normal [facility] US Scrotum and testicleon [address] [address] Ultrasound Report Signed Patient: OSCAR ESCOTO MR#: [id number] : 1950 Acct:[id number] Age/Sex: 75 / M ADM Date: 07/02/25 Loc: US Attending Dr: North Chapin M.D. Ordering Physician: North Chapin M.D. Date of Service: 07/02/25 Procedure(s): US scrotum Accession Number(s): [id number] cc: North Chapin M.D. [place] [address] Patient Name: OSCAR ESCOTO MRN: [id number] date: 1950 Sex: M Assigned Patient Location: US Current Patient Location: US Accession/Order Number: [id number] Exam Date: 07/02/2025 14:51 Report Date: 07/02/2025 [...] hydroceles. Impression dictated by: Tariq Lozada Jr., DYonatanOYonatan 07/02/2025 2:53 PM Dictation Location: [place] [address] Electronically authenticated by: [id number] Y Date: 07/02/2025 14:53 Dictated By: Tariq Lozada M.D. Signed By: 07/02/25 1455 DD/ 1453 TD/TT: Director Global Development: [facility] Radiology, Radiologist, MD - 07/02/2025 [place] [address] Ultrasound Report Signed Patient: OSCAR ESCOTO MR#: [id number] : 1950 Acct:[id number] Age/Sex: 75 / M ADM Date: 07/02/25 Loc: US Attending Dr: North Chapin M.D. Ordering Physician: North Chapin M.D. Date of Service: 07/02/25 Procedure(s): US scrotum Accession Number(s): [id number] cc: North Chapin M.D. [place] [address] Patient Name: OSCAR ESCOTO MRN: [facility]:[id number] date: 1950 Sex: M Assigned Patient Location: Current Patient Location: Accession/Order Number: [id number] Exam Date: 07/02/2025 14:51 Report Date: 07/02/2025 14:53 At the request of: NORTH CHAPNI MD Procedure: US scrotum Scrotal ultrasound Reason [...] Jr., D.O. 07/02/2025 2:53 PM Dictation Location: [place] [address] Electronically authenticated by: [id number] Y Date: 07/02/2025 14:53 Dictated By: Tariq Lozada M.D. Signed By: 07/02/255 DD/ 52 TD/TT: Director Global Development: [facility] Radiology Study observation (narrative) [facility] US Scrotum and testicleOrder ed By: Radiologist Radiology on 07-02-2025 [facility] Work Phone: Destr of lesionon 05-12-2025 Complexity: simple Destruction method: electrodesiccation and curettage Informed consent: discussed and consent obtained Informed consent comment: The risks of the procedure were discussed, including, but not limited to risks of scarring, darker or ems driver pigmentary changes, recurrence, infection, and incomplete removal [...] lidocaine used: 2.0 cc Previous accession number: [id number] [facility] Complexity: simple Destruction method: electrodesiccation and curettage Informed consent: discussed and consent obtained Informed consent comment: The risks of the procedure were discussed, including, but not limited to risks of scarring, darker or ems driver pigmentary changes, recurrence, infection, and incomplete removal [...] lidocaine used: 2.0 cc Previous accession number: [id number] [facility] No Panel Informationon 04-30 Lesion length (cm): [...] details: Amount of lidocaine used: 4.0 ml [facility] No Panel InformationOrdered By: Naomi Hernandez on 04-30-2025 [facility] Healthcare Office Visiton 04-21-2025 Follow-up visit [id number] Oscar Escoto 1950 M [facility] Provider Department Center 04/21/2025 [id number], ADAM KATHARINA [facility] Family History Problem Relation Age of Onset Other Mother Coronary artery disease Mother Other Father Family Status - Relation Status Age at Mother Father Level of Service:39483 [place] OFFICE/OUTPATIENT ESTABLISHED MOD MDM 30 MIN Normal [facility] Orders Onlyon 04-15-2025 Orders Only [id number] Oscar Escoto 1950 [facility] Provider Department Center 04/15/2025 [id number], HISTORICAL KATHARINA [facility] Family History Problem Relation Age of Onset Other Mother Coronary artery disease Mother Other Father Family Status - Relation Status Age at Mother Father Normal [facility] Ambulatory Visit Summaryon 0 04-05-2025 Ambulatory Visit Summary Ambulatory Visit Summary GEOVANNA OSCAR Hines :1950 Visit Date:04/05/2025 Ambulatory Visit Instructions Your [...] [facility] [address], [place] [address] [id number] Medications What How Much When Why Instructions New doxycycline (doxycycline hyclate 100 mg Tab) 1 Tablets By Mouth 2 times a day Epididymitis Chronic prostatitis Duration: 14 Days Pickup at [facility] Unchanged diltiazem (DilTIAZem (Eqv-Cardizem CD) [...] physician if questions or concerns Pharmacy Information [facility]: [address] [place], [place] [id number] [phone] Allergies No Known Medication Allergies Problems Ongoing - Any problem that you are currently receiving treatment for. 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 Epididymitis Family history of kidney cancer Hx of fci use of blood thinners Impotence Organic impotence [...] including vitamins, herbs, eye drops, creams, and mqxq-adu-mjcyrzq medicines. ??? Any problems you or family [...] yo (more content not included)... Normal [facility] Urology Office/Clinic Noteon 04-05-2025 Urology Office/Clinic Note [...] 100mg bid x2 wks. Rx sent to [facility]. Avoid sun exposure. Take with probiotics/yogurt daily. [...] [facility] [address], [place] [phone] Additional Instructions: sched orchiectomy in September Patient Education Orchiectomy I, Katheryn Fernandez, personally scribed for Dr. Iraheta on 04/05/2025 13:20:08. . Documentation recorded by the scribeKatheryn, accurately reflects the services(s) I performed and decisions made by me. Authenticated by Dr. Iraheta on 04/05/2025 13:21:22. 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 Normal [facility] Comment on above: Result Comment: Elec tronically Signed By: Natali IRAHETA MD\.br\Date and Time Signed: 04/05/25 13:21 EDT\.br\Electronically Co-Signed By: Katheryn Fernandez\.br\Date and Time Co-Signed: 04/05/25 13:20 EDT MLR HEMOGLOBIN A1Con 025 Glucose [Mass/Vol] 114 mg/dL [facility] Healthcare HbA1c (Bld) [Mass fraction] 5.6 % 4.5 - 6.2 % [facility] Comment on above: ADA RECOMMENDED LIMI T 4.0 - 6.0 ADA THERAPEUTIC TARGET < 7.0 ACTION SUGGESTED > 7.0 [facility] Coding Summaryon 03-30-2025 Coding Summary HTMLBase 64 ZgiqzqqgOPz6vFc+PGhlYW Q+EH9ZWFMnN18ruWPwzQ9y A9RCHEiJYrllPBXMHExLTp MqjjPtVI1ssIVpQTQx IC8+RF5mKGJkZzadoKAjz1 B5ePG5D60nrq6xLSdexKX2 EJFiAtXajjxve6fwxVl8SO cuNmluOyBt LKCzjH04ANX3tJ97Kt39sA LpnYMbf6ekaTc7XeFaUBYw LXU8uTkbNHpyr6WtCRXfT4 8oqIKzq7E1 IEUygMrysSKuJwNmoOR0dK 8qEYmvxaszf5rbceezSsa5 dk23eDBgt2M3lLP2J2Lzvt F6XEZtmMQx HzxxtCPTeP6uiqvkd5sfyi wvFiNwJEFmCBh8ELa6OEZi mUdbJbCtVV93RWC1OHLnsp XtW2PzXQOp vFcbJvR1g8N8Do4BG4YNNy nyL1PAJWUNEPuzwHR+PC90 pb56R7IsQypnMnr8EXUhNM K4fTR0wW3q SKPsENgme6L9aRE7B3Zlkm Bfog3od9ryIIUuRFkkN09b wWFes3J1ZWYmpUB2AAGktK ydXmOmsF64 Oyc+CVYtsAuxd1VvVkxxj0 uif0cxsLv1QjjfPPVdvhDo pZqcMOD0q2EjCa4fPTPaaA C6eAN7gQ2t BrPmJxC7VCinC684GpYuxY DdSzodC99lV0LdvJX+PHRy Bph4ZLMreHpsCG3hZ0MfZN RpbmctbGVm nXfnNF3kKEHlvhzfKRFjbQ 7bNSJxZ9m8TwAzGyA8TKpc E3IhCIQwdbvjXg85uI7pLz UpVfC4FAeo S7EmsgU4TYKpyRSxWOlxCM R8R14mx2R5JFCxGHHuCYY8 qWI0yO7grBioouahkBEpvC sgdmVydGlj ZTfuRVpmI398NAXpmUfjMn NvZGluZyBEYXRlOiAgMDUv MDYvMjAyNTwvdGQ+PHRkIH C7dWonOPJq hCAlLCpyRg0gzXcnxHlqCD 4bQLCwjuddGLTlgW1rYTQs tNZjxSuqSY1mSSZejcxsb4 16CkHtKHI9 OWTqmPLvX2HcmT9wMeGcBF TnCUIhV6UcoFCiRHzyN739 XKokVaM0HTGcskYiO6EwNE FsaWduOiB0 l8J3Dp0Jt1EhotlwM0DwyO AzJhFlYxkiGIa4U7XrCmgw dHI+IW31TVMwPZ15YCk5EO N6cAjjJNnb ODKcH0BpeP8rTaFxHQOxDX RkOyc+PHRhYmxlIHdpZHRo XQquCTLiTgFuwTbeLF2sLv 9yZGVyLWNv jMzzrRMdPlEue0xpECHdRS mbNJ8ynKliO9JevBV1ZBNf n1x7Xv11X17uD2AiqNA+PG XytDO3yNO2 vI9jOqRkGpN1UGciL514Jf GqpJPeHtbhm4iep5ynwOb7 EvL0QSIcidNbmEueVUS6g5 XoDe10I35y IHdpZHRoPSIxNSUiIHZhbG ggmr0fpO9pBh4+PGNvbCB3 qEE0hN4mYiCbUrE4AUavI8 49InRvcCIv Lqruu7kvt9fazFh0VlNsLC QhhwSwlSlnYEN8d8EhPb63 R2YrzJgfz1DrDdg8km24bZ Pnf5L1kOC3 W2BkXHDuqrmghHNuiKynLL 2vTHQfpdmzRJPbdP1wVBAt Y5k5QmAtAyK7PJycI1Mhzn A6YXMyiNQr FZPpjABQqH8pkqsfo6rpjl yoJmGkDUDbAZc4OYq4FWEs oPmuEzHfYUI1CrR2ASZ6iS CyaT6erJfs njpmaH5aKmi+RAK4gSZpfD JEMJ7gNazhuIA+PHRkIHN0 vEarYKmhRWPpfU3gTTOrJ5 w7WfZlSwJ7 KRxyE2TlwqJ8DANxhNDfGC SbxIMXzW5fplqoh9jlesqb SaZlUGRwZSo9IVf6EIYovU duOiBsZWZ0 VaA0RNP7gSRitC0jeJnrbg umqU4kGxd+QmlydGggRGF0 KBk0K6XhXoy4JIZctNleDS 0ncGFkZGlu Bn5ygVzlpHriRY5xGIAull fdx767MfOte8wdTXQtgYBd PYrwJQH8H77gv8J5QARyLO LwSXU3jVM3 xA4egTmlgdnidIUpxAvzqu AszKraREkgBZxrU971JDMf pFzhPaNzUUs1V6ChQnp7IV BoeMysTN5v oLIaQKakWe5isBsqdTagWQ 4rWCPzulnnq664PgXng0fy EPLovAMqRSypCHZ5I49di6 J3JMPrWBKt UBK1tOD0fZ5doFzgrpjonO VmdDsgdmVydGljYWwtYWxp S360MMLvgYufKxUoyCa5L4 WhBhy9DADv jKyrJY8zsVLqKEatMc8mcC btgXgeEV1gQNIlgatcb542 CaIkx6kjTJFsgDRmRCsbGR U4C39ug7K5 ONErIGOtKNA6dOW1tY9umN lnbjogbGVmdDsgdmVydGlj GMxoJSnrY456OXSgkAyfEu BhdGllbnQg NBwqRWj4K7HnGedmsHF+PC 30YLAhCJ63vVXpeIDzc3ss nZr9KnBvVKXeQXB6zXtlGM frx7UeVGUu W99twOOzw3X8MUPgbZvnvL HeRfNyjSS5pI8aMUivfjsq p6zkpsglQgfig8cjwl89uK 58Q55rIWzq ZHRoPSIzMCUiIHZhbGlnbj 1qnA1xMs6+EQMwcNQ4yAW1 tU4iWPGmVeU3UDqlX965Xj RvcCIvPjxj u3iry4kyhNf0NzQ1NHPxml MqaJceMHI1r5CaSa83Z54c IHdpZHRoPSIyMCUiIHZhbG hfid4dzI3f Ii8+ZXCpeMX8xYA8iW5cSh EjMfB8TVvuK772KtRsdLEm TvjoE24jG5WlmWR+PHRyPj g0ANEobYut ZO8hkLXvOWmzZi9hUIP5Fv TuZrGmOFgzV3JcEBTniudl spxuoYC2SIDqGQVakX39Uc 9udDogMTBw qOCDoJ3gfihtt3tegcdgWn IzGDIwOKq0YXv1MCZryLwy QoKrWPJ9EbS7AQN9jDMsxT 1hbGlnbjog yC3jE9WzUJFhazplPs90gW 1tFqGbAkJ3RMhuIuv+TUNN VBTSJTTwEBIAIH7CPAJWSL xFTjwvdGQ+ IJWkYIO1hWrjSYaoQGBomX 4bXQFyM7k6HaHxVbT0WBzb G3AmAQWsqwtaKk54yC1nVi GaEbQ5HIws H6VxznH4VHGqoQUqJShlFG H9W46an8F5MKPiVHXrXBP6 uAW9jP1dvZdrhlehvROfbH sgdmVydGlj STfjUQyxA684MVJrhRpqKf K7SxKaMzQ0KXV2G3MlSlv2 FMDnaPerVX4vlYTpORlvEk 1yaWdodDog LB2uMKFwlvzuZWPwuD7dEW NmiMAlcDhzZP9oSCDfaqzm b425YqVbRDQ1LWHloNDaI0 OlkJ5qQhUs NNIoGNMyB0ZwtTGeHSimD1 76KWpgAwU0SVYivgWhI9Hc OVHkqGhgWwK4x7D8Pw04Qj BZZWFyczwv dGQ+XVJdFMO6yVjcUOfjYJ UdwY9rQZXtD6e4DgFjXvD6 YPwmB1FfLEHccpyvKr97mQ 3zKhTzLtT8 PHsdA2VyuiE0NWQgoKBgYN pkFVO2J76vx4E9RAGyXAWl FZJ8rIJ8rB3jcOrvcisigM VmdDsgdmVy eBeaLGbpPHlnN379MCTquQ wpPl1TLEE2Y8XsEoh6JIFe wJncFH5ekINpVRypCr2jcO pauCecWN2p KQQmtzypFFJenI7wKSTwmK BnhPbfSN2uRUOlpzgfi337 ScQuIHF7AXAydDHaA6MyrL 9yOiAjMDAw WKBzA5SqoHIjESmaX924DU cmLnI3AURhnkXtP1NlJLMy nTssRcL2i9O6Po7HZNydG4 QoF9DznXcs dGQ+XF85ia71D3FcOglqFf o3QOKyMGL6xYX7hC3kHWEd YLinm5B0pNL2D5FeosMwui 4gh6ykOHQh OAoqK79ezYIip2G0UFShbB B0CFNngIrzNpKlqK43Esc+ YELfgIsjh9BrSouig0cbk8 bquPm0BhOi FRWafdBzxTcwTZA9h1LoWi 02B52tFAoxCUUaREOwVMPn IVFpaSgoqc8rgW1bEc2+PG KqeXU1sEX4 zT7bCjQsRaS2DGhzW840Ir UssEKrNviit0kqq1osePs0 SqZtXXJgznOulSlbRDM9v2 ItOr61J0Yb qEikd2ShPbx5dp56eDHcj8 H8nGH1K9ZbSTGrvlvkyENu rEkpBO5yMYFcvxyzDIRlmG 6tSZWyY6b9 AaXqGuN5VJkfQ8HtiwS7RQ BhfGEjARLwiRNCqK2dryyf j8lneqdoZnYmJCReTRz4JO e7WZWxaTdl TnYiWGJ2HwQ0OCI6lDVqtU 6oxPkvhblnuY9yLyn+UGh5 o4sqwJKwGE8cnKZ4OW62HR 62nICxv0F8 mHA8I9CuVFJcnrqsfmxwyA C3FQKoQRLllA30Ge2uuVrj Tx6vOOWzKQN0LZNmjSIvZ3 XwwE6fRoNd RECqAAZaG3NmqOUqELkfI1 03LLslItK9TUDctbKuW3Ko BEXwqLbkOqW9g6E6Ug3FZP 48ZK75LU70 hGKjf3M9zNW2O4UbVRHson egcdefvKW9HWEmNFXahB21 Kt9wjWxaAu1eRZToJNX4AX LcrZFmJ2Vm aL7uSbRnBJUeGJWuR1JgeL KhTRuyI206HNbkXbB4XZQi laKyO1WwIBIbcJgvEfI9y5 I6Si0IYt44 EL92LA45jXPmw2X6gBT3X0 SwVUZolucdmboaoKS6QMTk WPEsyV78Se6bgMsaYi0fBI BnSIT1CKPb gGAuM6ShhN8iZtSgBZSmFK ZvP2KaxKZyXDazW222ILji MbC9QDBlbyWkH6HzGFXqlA oiMoR4p7W6 Dq6JJUmikyd0O4KzJilfaG I+MB91FOEyIP91jNWriZNq u8oorYq8KjYqNZCqWQG2dQ csZQahz3Ie ZXI (more content not included)... [facility] No Panel Informationon 03-24 Type of biopsy: [...] taken Amount of lidocaine used: 1.5 cc [employer] Type of biopsy: tangential Informed consent: discussed [...] taken Amount of lidocaine used: 1 cc [facility] [employer] [facility] [employer] Type of biopsy: tangential Informed consent: discussed [...] taken Amount of lidocaine used: 3 cc [facility] named [facility] Coding Summaryon 03-17-2025 Coding Summary HTMLBase 64 HbuzjbxlTKq0nQx+PGhlYW Q+XB2ZNHZpP15diHLwoU0f G7PIFRkXIayyQGVOCFzREp PyzsTqMI9daYKqXRIc IC8+PJ5xDPXpTzctdJGvj9 F6tQC9X00lna9cYHqhuEX8 JCVaMwTmlksdc3tjgSr7SA cuNmluOyBt PEThzV04BRY4rU75Yj36iG VpoOYfz4dakHz8MhImBFFu MVY4uEgxPZncg4WxCWYoC4 4nwOVto5Z9 GQLzqLopkDVnWpSsdHA9lE 4bRTyqhlfie6ftwjssKuk0 uy99iSRzn3E2tHG0N0Aiie G7DNNwcMXy OygczRILhR2uljyms0dhvf epEfGiGRFxHDh8WYl1JZYe kIsxGyDiTI20EUX5CEVhsn DtR8RjVHTo oFohUqB7j6Q2Kn3XV6UWRl skK7SPSLWEHPfgrNT+PC90 mp25G6KuDstbHua8CREwYK F3jPJ5xL3l QEMzGLgbc8K7hTS1G2Rptq Geso1wa1eiKAQvXOgsX37b gLVqg6J1CFSaxNZ9PCZhyU jmZhOvmL16 Oyc+CHGtmMwxi7KuYhigw2 sya5szvSb4GavoDRJaygEy yVogUIF1d5SeHc9iDHDwaR R7wKL9pA0f BuLyDfX1CCmpD748JrDwvG SvTenaB09jW7HzfXV+PHRy Utx8TISqgMtvGC8rY8UoJU RpbmctbGVm uCreIV0wTDPkqhpbIGFghV 8fSHMwQ7d5GzElHvW6WTsl E5MuHNVozuwmOi21nK0lAs YiLsN0YWkv W6PekaK2XZXivTQoFNxcZE I5V88fb9N9XZRlAWVmEOE6 jNH9sW5obWmiiedrdFDzaK sgdmVydGlj LRzsMPapP263KZJwvVhsPe NvZGluZyBEYXRlOiAgMDQv MjMvMjAyNTwvdGQ+PHRkIH I6rDemKDKm mEVwFSeuKw2soFlxyLhcPW 1rOPFuuubjTVSbiY6eYSZh vBGkbMwbGK2jNLEsnpjop9 80EtRaYKV2 CRDidEXuL4ZgnW8rPwQvAB QyFJGtB3UflKAaQDbnE108 MUetSeA2VHZwliXlQ5ClSO FsaWduOiB0 r2L2Xw5Iu5WspfoeF7JvlP EoLtQmDgyaMDe3U1LhKgad dHI+VD19UIJdNT74QRe8TU B5rNzkRNru PMXlC7LxzI9xBkGyKXWwKA RkOyc+PHRhYmxlIHdpZHRo NDmoHTSxSuRptJbkTO1cYn 9yZGVyLWNv gUgovFJzCtMrx3foHRMwQW viBH3loNlpW5QahGI0JKBh e9e8Uk27X25sO5WajHQ+PG UwwHI7wSR9 mT6dGmZyAdG1RKylC136Um BuoUDqUqmvd4lun5djcXi6 LjP1WCQwtzYzrMxbYBV9x7 KsAs71H21k IHdpZHRoPSIxNSUiIHZhbG uwyc9jmG8sDm4+PGNvbCB3 nPN8iL1rClJbFeS4KUqpY2 49InRvcCIv Yrqgg2ibe0wbxLk4JmAsPN WwqfCfjZohNHI6r6UkYd22 X0MrfRngy6RqAcw0uz31oU Xbn4I4zZI3 R9ItZKXukbqhtYQmqWwbVA 2kGQKttgorZTXauD4hABJh W2c6ZjMmCtY8WPkjV5Ezsq A0ECUbtSEb DPFymMNZvC3hxcobn7pmhe rlBsHiJJXkJUl6AGg9LGUz kRdlTfEgHRA3YsE3RLD5iL CniU9zsBlz zhyvmR7dPto+JAP8nGStqJ CMWK5jHvyzlBZ+PHRkIHN0 dOgvRDlhUFWtwN5aNLOgO0 r6XyPrTxN8 TMixW2BjtoM8LKViiJTxFV DqgTHVtV8odsank2fryiin MkMqIIRyBFq8NBj3IQEnbW duOiBsZWZ0 ErB1PLO9jMBruT5hkFoows gxiW5hRow+QmlydGggRGF0 MDu6H3EqEzz0LTJzwPxuDB 0ncGFkZGlu Og5afEivaBklBC9dZXGjff kpu784YgBam1nnZHWivOKz MJvlEUE2P79ql8K0XAVdSM ElQPV4vRH7 jM7qeOpnbnzfoLLyzEsoqf DtcLehXLkyFKtoW834WDVa nQnkPiRuDFm0U8KlAar8LR TquDegRD7k gHXeBBuzQp3jzBoeuTqmSP 1nWNXmzpdey003ZbUfp1vj IPPcnJSjSGetCGK4G61wa4 Y4YYQqMFGd LQJ0kWX3aR2kgKlmocdvdJ VmdDsgdmVydGljYWwtYWxp G195UBMhoNunMuBabQo9E3 RwGzx2GXQk uDxzWL0rwJJdYPmyHj6ieB sunNmrGF6uMWZujoaco209 MhNix0pnJSQwqXRvTDsdAU L0V09dt2G2 ZKSnYJYkAGT3wRP7lG8fdN lnbjogbGVmdDsgdmVydGlj FBkgZGzrO837GRCwwKmnAf BhdGllbnQg RIinUMb9S6TtRebfoXD+PC 71FPGrIX21zCGlwIHdb1ou kJx0JpKySHJmRMN8uZtbMA wdd4IkMGAr G81lzKBzg8N0DONpfYbomE RoVmOogOO6oN3yTPtywurz p2scwldrJgehk6mcqu18bD 98N93kVMbq ZHRoPSIzMCUiIHZhbGlnbj 2hoN4gQe0+GIXtsQU6gKY0 gD4iYUSnEnE0XSwoY957Yd RvcCIvPjxj x5kzc3hheJs6DqF6DABjco OnqHqaXQC9u3KqMv37H64r IHdpZHRoPSIyMCUiIHZhbG uokt8huR4h Ii8+SFBtzGY7uPP6fZ9sXy FrJkC4YUflZ963GkIusPBi SknaI33bH2TetTU+PHRyPj m1QLPjtArt VF3vjCDkCTfqMe7tKBQ7Jj QcFlRjCCgxH7PrKTXjvkkz qfukzHM5MYFvZMDzbX38Jl 9udDogMTBw fHRXpD3pkebgv1ytnmxpTv DoKTEbHHo0ICe4GAMgkOii JzWwUPO8YhH4FPO5nPQqqM 1hbGlnbjog sN7sD1RjPRGcgmslEp82lJ 9uCoHbHhR4DEdsTcn+TUNN XNMPHYHhVRLAHO3NBKEVAT xFTjwvdGQ+ DHOqBOF6zPbuJGcuWCCnaD 9zMWRbF5l5RxPaVrX5ZVmz P2YjNMRoxoacWg36eZ3aRw SsVoZ3JNtw F8GiiiL6ACQajDKtPCnmFB H7H34yc7A9XMYbJBAxXVN3 nNP5lH5ptYqifvfolLFpxY sgdmVydGlj RUqjJPzoC409VVLliObwEj Z1HrBoSdW9MIK0W8WxZfx2 OENxcSiuWB3daCIsSLpsTb 1yaWdodDog IC6rQWBticakXLRoxX8rQY PskUKutVycXX1zSCWsfczl f462QvGwTDT9MQVcfAOaY3 JjrC2qUaYj VRTeEFAsT8ObuSAbPIdtJ3 76ICgnNbB6JIIeokPaV7Iq AMJhdRvdZdJ4k9Y4Qz84Wa BZZWFyczwv dGQ+MXUfBII5wTqwMGguMJ EprN7aARHpF4q4VsUrFiM2 FJtfA3WnIFNevvogAa54tF 7uKzVaQdU1 ACvjS3GcqxZ1AKHefAUsEW mvQML1E37qd8O2GTCoWXHu TUT7eNH3vP7uoPomftvthU VmdDsgdmVy lJcoMGjiRFaiS755OZOkpZ zvCo0IZGS3V4ZvAqu5JZQm bWomNV6tgQKmFDdnSo1nqL mfiHbpOW8l HNLgjrqtKYCglF1tTACjgI HqvEdkVS1aOPJbhrtrd263 XsQaJVY1UTFrbZPuM6LzxM 9yOiAjMDAw ZXErD0BunVVrCXjuZ283MV rnHwT6ZPEjelEgC9ChMLHc pXfqQmA0d8L5Lw4LRJcnZ7 PgM5CmuVkh dGQ+VF25sl70G7GwEzfzNi z6LZPfKHG5eGT7fH7aHUJw SMbzn6F3vKD5A8AqvwNfgl 5vr0phNBPt UBgqK71cdLZgo7V3KXJboK L0WZWndKkvViTuaO97Pml+ UTXlnLunf6MqFurpa0ipf1 naaMu3UmPw YAFtfxBhgUasHHM2z9IfLp 59C79zBZppDMUfMNQoRBUl CIRuhVmslw8rbW0gKa1+PG KgxQY9mHG5 yD8jKeQkJlL5LUnjS721Xc JnnYMzQwzwp3for2vjdWi2 KwCqQLTkwcUdqBdoEBO7i9 AgMb35R2Wa aGgdh5OvNrz9cz48nCOaz2 Q9eCC8W5GzCLTqlljrhRMe aVzfNU1rZLIygekoFQLsfC 4qNIFfG5y9 GzJbLzB4MYdqP5VlamG4BV OzzQDsOAWzmMEQiJ7amqpz t2xopzbzTmYsTXTgDMd1UE h4LGRbaFiz BkHrCFA0XkV7GRG7pSJhnN 5uhQylyipkmW2hVux+UGh5 q1ldjSPnUU1umVJ8KE13JG 56xTRla2R9 bHE7X7EvUZHhfkriudfvoC S4DLPmHKDlkM22Fo0gxMju Xu0pWOMiMJD6RYUyeZQiE8 SjnF2gSfXo YNLuMXOkX8TjlMUkACekX7 24RPprVoP0PQFjdoHrN2Bg BDHwvKdkRdQ7h3P8Xo3MAY 28SQ93CL13 iLEey4J3cXW4Y3ZhTNTjud vjoewgkDG5IWBcTBThkM77 Tn7ctFyzRs8eGZRiHYR2NE QhzZTnJ0Dv hT2eCkYmCZXqSVQbJ3AjwV HlEOadZ280AHpvVuG0JBEz tjNoL4OqWETawLasPfR8c0 Z9Hf7JNl29 ME20EU34zRJne8W9xBQ8G8 NcZBVanuvamcsyiKQ5HNWv OOMqaX16Cr1whQjdWs3iCA LwLCB4XPDc cBHuQ4AlkF2uPnHoHGEwHA DmU7MjqAMqOCucJ375NDek QgL2DRLeumBsN0LkDOXbhD lkGvB4a5M6 Ht2KKYwaziq6S5GoHibzkA I+MF87YDBlXW39yVAglQEi m1bbqFp5VrUcNQGvSOB6aT joKGdlp3Vt ZXI (more content not included)... [facility] Consent Formson 03-02-2025 Consent Forms [id number]#1.00 [facility] Outside Recordson 03-02-2025 Outside Records [id number]#1.00 [facility] Telemetry Stripson Telemetry Strips [id number]#1.00 [facility] Anesthesia Noteon 03-01-2025 Anesthesia Note Patient: OSCAR [...] on: 03/01/2025 12:38 EDT] Leroy Zuñiga DO [facility] Anesthesia Note Patient: OSCAR ESCOTO Age: 74 [...] = 50 mL, 100 mL/hr, IV Piggyback, Piece Jobber Documented Medications Documented Cartia XT 240 mg/24 [...] list: All Problems Arrhythmia / SNOMED CT 2155102911 / Confirmed Hypertension / SNOMED CT 2456116780 / Confirmed Restless leg syndrome / SNOMED CT 38529565 / Confirmed Sleep apnea / SNOMED CT 548360275 / Confirmed, Active Problems (4) Arrhythmia Hypertension Restless leg syndrome Sleep apnea Histories Family History: Breast cancer Mother Bladder cancer Father Procedure history: Total hip replacement (420923710). Tonsillectomy and adenoidectomy (916778215). Hernia (6474973238). Comments: 02/02/2025 13:25 Cass Edwards RN inguinal and umbilical Toe ([id number]). Comments: 02/02/2025 13:26 Cass Edwards RN big [...] % Auto Lymph % 22 % Auto Brule % 7 % Auto Eos % 2.9 % Auto Baso % 0.7 % Neut Abs# 4.6 x103/mcL Lymph Abs# 1.5 x103/mcL Brule Abs# 0.5 x103/mcL Eos Abs# 0.2 x103/mcL [...] NA . Radiology results: ECHO, 2020 wnl. Nurseryperson: stress ekg 2016 wnl. ECG interpretation: Normal sinus rhythm. Plan [place] [employer]esthesi[employer] (ASA) physical status classification: [...] 03/01/2025 11:0 (more content not included)... Normal [facility] Inpatient Patient Summaryon 03-01-2025 Inpatient Patient Summary [address] [id number] Patient Discharge Instructions Name: OSCAR ESCOTO : 1950 Patient Address: [address] [place] [address] Primary Care Provider: Name: NORTH CHAPIN After you are discharged if you find you have any questions, please, call [phone] ext [phone] to speak to a nurse. Discharge Diagnosis: [...] alcohol and/or drug addiction problems; contact the [facility] 17/06 Crisis Hotline -text 4HKOA lx [id number]. If you received any narcotics, sedation, or [...] business decisions or sign any legal documents [facility] would like to thank you for allowing us to assist you with your healthcare needs. The following includes patient education materials and information regarding your injury/illness. OSCAR ESCOTO has been given the following list of follow-up instructions, prescriptions, and patient education materials: Follow-up Instructions With: Address: When: Nneka Hernandez [address] [place] [phone] Business (1) 2025 10:00 AM Medications [...] of you (more content not included)... Normal [facility] MAGR Intraoperative Recordon 03-01-2025 MAGR Intraoperative Record MAGR Intra-Op Record Summary Primary Physician: ENRRIQUE WALDROP DO Finalized Date/Time: 03/01/25 12:04:17 Pt. Name: OSCAR ESCOTO/Sex: 1950 MALE Med Rec #: [id number] Physician: ENRRIQUE WALDROP DO Financial #: [id number] Pt. Type: D Room/Bed: / Admit/Disch: 03/01/25 [...] Role Performed Surgeon - Primary Anesthesiologist of Marine Engineering Consultant Record Time In 03/01/25 11:05:00 03/01/25 11:05:00 03/01/25 11:05:00 Time Out 03/01/25 11:57:00 03/01/25 11:57:00 03/01/25 11:57:00 Procedure Arthroscopy Knee(Left) Arthroscopy Knee(Left) Arthroscopy Knee(Left) Last Modified By: Alissa LEOS, Rupinder Maxwell RN, Rupinder Mohan RN 03/01/25 12:03:50 03/01/25 12:03:50 03/01/25 12:03:50 Entry 4 Entry 5 Case Attendee Felicitas Ramos MAINSPRING FORMER Berny MAINSPRING FORMER, Sarah GALLAGHER CSFA Role Performed Ecd Ecd Time In 03/01/25 11:05:00 03/01/25 11:05:00 Time [...] Alissa MACHADO RN, Richard Bucio Regina CSFA MAINSPRING FORMER, ENRRIQUE WALDROP DO, Berny MAINSPRING FORMER, Sarah GALLAGHER CSFA Last Modified By: Rupinder [...] to positi (more content not included)... [facility] PACU Record [facility] PACU Record Summary Primary Physician: ENRRIQUE WALDROP DO Finalized Date/Time: 03/01/25 12:31:44 Pt. Name: BLAIRE ESCOTOYOUNG Zeng./Sex: 1950 MALE Med Rec #: [id number] Physician: ENRRIQUE WALDROP DO Financial #: [id number] Pt. Type: D Room/Bed: / Admit/Disch: 03/01/25 08:45:44 - Institution: PACU Case Times MAGR Entry 1 In PACU I 03/01/25 12:00:00 Discharge from PACU 03/01/25 12:28:00 I Last Modified By: Hannah Abraham RN 03/01/25 12:31:42 Finalized By: Hannah Abraham RN Document Signatures Signed By: Hannah Abraham RN 03/01/25 12:31 [facility] MAGR Postoperative Recordon 03-01-2025 MAGR Postoperative Record MAGR Phase II Record Summary Primary Physician: ENRRIQUE WALDROP DO Finalized Date/Time: 03/01/25 13:26:19 Pt. Name: OSCAR ESCOTO AGAPITO De La Cruz/Sex: 1950 MALE Med Rec #: [id number] Physician: ENRRIQUE WALDROP DO Financial #: [id number] Pt. Type: D Room/Bed: / Admit/Disch: 03/01/25 [...] Camden Jones RN 03/01/25 13:26 [facility] MAGR Preoperative Recordon 0 03-01-2025 MAGR Preoperative Record MAGR Pre-Op Record Summary Primary Physician: ENRRIQUE WALDROP DO Finalized Date/Time: 03/01/25 13:12:56 Pt. Name: OSCAR ESCOTO /Sex: 1950 MALE Med Rec #: [id number] Physician: ENRRIQUE WALDROP DO Financial #: [id number] Pt. Type: D Room/Bed: / Admit/Disch: 03/01/25 [...] Signed By: Camden Jones RN 03/01/25 13:12 [facility] Patient Handouton 03-01-2025 Patient Handout Arthroscopic Surgery [...] drive a motore vehicle, operate machinery or powerPublicate, make important decisions or sign important papers. 13.) You may feel dizzy, lightheaded or sleepy following surgery. Make sure you have someone with you for the rest of today. [facility] Progress Note - Nurserae Progress Note - Nurse Spoke with pt and informed him to be at hospital at 0845 and NPO after MN, he verbalizes understanding. [Electronically Signed on: 02/26/2025 09:54 EDT] Adilene, Sidsel RN [Verified on: 02/26/2025 09:54 EDT] Halib, Sidsel RN [facility] Coding Summaryon 02-09-2025 Coding Summary HTMLBase 64 QldvamztCVr2mMq+PGhlYW Q+ZY2OYQHaZ65nfAMsmB7e Y8USEHrFEmtsVAMUVWlWDi BgnvWaDX0khEZbJNMl IC8+PV4iQQNoAkgkzRTub3 E4dIH6I46bii2dLRfzfLV9 YZFiApKkhdwkl9mrhKd8YW cuNmluOyBt AFFhgJ65CSF1uM40Tt26pP WndAYaa1zqsHx0SqJgOTNe EXH8wFraEEzjz9ThXQNxG5 8kwNFjf2C9 GVCusMbkvIQsFbVoeOM5gI 1uMTnokeboi3abptkqJba0 od60bTRzt5L1rQK6U3Zjbb T9HZNvjYDa ThwinESKzO2yetqpb9uels wvFyTrRXAiOXf8OSx9FRIq xMdaCaNbMS93IWW3KHKthc HoE5NiGWOr uQinSmP6n9H2Vk9BF3RUGr zvU6TWWFOPKUlkdHK+PC90 vx63V6YsIjmcSyb6IPIiHO N4rPJ1rJ4n QEZyWSphv5C5mFQ1S4Exfk Pydf9dm1ppYDTgBFhiK88g ySJsb3V2QTOtsLM3APXwxU clKzRbhU39 Oyc+GFPyfWidq7DtGfrgg1 lol5uwuXz4SfdiRFJfiaUd xZbeIVT5r1CyRj2lHUEtyA L6lPN9jV7n NfNyCtY2DGkgV754OmJsvN KnHkzsQ29tK5MjoBG+PHRy Kxw3FAFozBrtNO5iF4OlNN RpbmctbGVm nLmvJF1yGSKlgsylFWQzzJ 4mFQCdY0p1IgWyPxF8ZGcj B4UgMLYngylkVy89tK8jQi CuUfV5JPbx Q2XoynM6TZHukGBhDHixWD E5T35vu7L8OISuSEZmGLH2 zXG7kX5gaJpwbhrwbPZyhP sgdmVydGlj BQnpJWqjG161MOWlvYiqGu NvZGluZyBEYXRlOiAgMDMv MTgvMjAyNTwvdGQ+PHRkIH F0kDodZRQj rVRmTOpdUd2qdOcaeLbaWO 3sQRCwtqhfMLLdxP5qGEJt cNElfYgsTC2dQOUocbxro9 92MyStUXK4 EUCqhTFqU4AqeH5uAfJrOX NrNMVrI4JzcHFwUSoqL398 FPtmDbS0RVBcqoZoU0XnFR FsaWduOiB0 b7H7Lu5Fj7WjneyoH5XccY SuGsPdOttcKMp1M5KwAolf dHI+TN57HPOgQT19PXy4BW W5xAivLGfl SMMaP7BnvB7cAqDrKYAcSI RkOyc+PHRhYmxlIHdpZHRo GSlnLXOoAlEodUniTQ8eZe 9yZGVyLWNv wOfeaRVwXrIxc0cmWEMbKJ bmMS4mlHheP0BqmXP0LOZt v2a7Ai19Q80mD5ZneEE+PG MfiJL1iNG8 sZ1dKtYqLgG2LLzwJ702Ji VpbQBaRmvna8fiz2ohiDv2 UzN1XIQrltNaeHzgYJX1u2 GrAd12L21e IHdpZHRoPSIxNSUiIHZhbG ncdw6diJ7rJz0+PGNvbCB3 sOC0xK1dWkWcYtI0ADsiI3 49InRvcCIv Xxlbf3pbe1pslSi2ChWwYA BcanIfjRdhRTX6z2OoCa96 C9MnkUxiy1DgCvy5hh42wL Uzs8W9wAV9 W9OeDGKlswuswLRxlDzmAZ 0oXCYwqbcoMDZooF9lNKYi C4x2NsZjClV0ZPntK0Eipq Z9CUQhbDXu VYPezYJWiQ0rutnpu8rkyd jxQqMkKKVhQPm9GBg5OXVx bGeyJgSeYMT7VyU3DZK0iN MfmA1gqBfd tbtdsD5qQfi+IBP9qVZveV RXRV5kPemazDU+PHRkIHN0 yXdeMMhcTLQiwH1zVSBmO6 q2ClWsLbT5 DYgjT7EbxdS9VIYqyPYuVL PnzDGZqL8bxhxmj0hdulgz AnDlTZLwAWz4UNr1ULWgsN duOiBsZWZ0 IpX1SLY4pWQotO8nbWkhae oyaF7nCyg+QmlydGggRGF0 MZe2W0OsEqq2DRVmuHwmFG 0ncGFkZGlu Tq3qgEsobXpiNR5tUEKftv ynz486WoPjh6mqQGRemTLt JFwsZLP0W05lq1D4RSHqRZ OxYSE9sRZ4 xA6ecNwolnthbNPkaWdmpc NriRsvTUeoZAsjB979PWXl rMmpSuNsSCh1C8BbFsf2RA IwsNcvZP7k rENpEPwvAb1huUfdhMkkEN 2aAXTdmasdt970AmSvr0qv PZNufRRyMLdwJAI5B32ej7 K3EPPfRZXw IHS2zIG2wA7waMqfwnrbfI VmdDsgdmVydGljYWwtYWxp B286XTEjbPiyAzLndQi1J8 EbScj3JZVb oWzrHN0usZKfLEylRo3uvC atnWzvRC4mXXFwythix530 ChYlo4rtTXEehCJgABxhXP E0M91hn7N5 HONgZURqQQS7sVQ2eI9arB lnbjogbGVmdDsgdmVydGlj XSvpCVogL467YAKanZasVq BhdGllbnQg VDzwYJp3S5MdVqkjiJT+PC 94LHCrVA86pKYztBXjt3kd oPi3OwTyTYClQBV0tGuiEV akm4UmJZGy Y02gdXFuq0E3EYSvrPiwwU QiDdJmnZA5rT4yTPpjouvx r2faliaoGnowd4xfqz03eZ 39H35oWYax ZHRoPSIzMCUiIHZhbGlnbj 6yuR4qUt6+KORimGJ3sXN4 yC5jRKEnOgU5LPdeN798Lm RvcCIvPjxj e4wnz8lbaZc2QwU6HVQikn WqwNswNIQ4r2NoHc58O32r IHdpZHRoPSIyMCUiIHZhbG ltry4agK1g Ii8+WVDbbJO6lYU0mO4vGu ZlQwW9JMetB650QyGfhFGh LaifP31xC0YndSW+PHRyPj h7UJPptBlm QD7dcXIyVPzbPw3hWYD8Vt MxRqBdZRdaJ8BqTSSksjxq vpqgvBM1HXSlDPTrmO36Yr 9udDogMTBw qGLTjP3kohnis6ueqktuSm WiMQYxLLh7ZIm4FDAklGzo TnBpMNW0BzL3BTI4tAObtS 1hbGlnbjog cL6fH3HjPAKidkbyAf79lD 4nYnSeOxO8MZxtJfb+TUNN BKJUFDJdDATHEN8GHJWMMU xFTjwvdGQ+ ZFYtOAN4mTfnEKvxOHDvuX 8iKVVwR3x7BaVrSiB2KRou L2HqXPPtwedyXv02dB4xQo GsYhV2KEik E4ZrraV4KJJkwUTjSMwyDY D3F35rj0M6UDNhZYDjTTP1 lSO4bV2rnGtyeiapnXCqnJ sgdmVydGlj JSfoVVefL327RVWctZjgJu F8EnMfWdN3NYN2G4PgUne4 OJThzNotYM2stIFoYVzzIq 1yaWdodDog TU5pJYMktjgnJSBfkZ8cNB MxkUXimBouYQ0aOZXcxnrx y157BfVcSDX1LQZsjDPaT5 ZeaB8vUxQw UHXjFRVjH6IooALoHUdvD0 92GQiqBmA3PBEljjSbS3Bi YMYsuRobXtS3a2U5Ci01Jl BZZWFyczwv dGQ+QFPnOFJ0rLgdPPpiCX FozI9tQYXsI1r6FgYnCtS6 UUytF6RbTDFjfudtLu87fT 5yYsWlYgZ7 NZekN3WjvzQ0MXLiaLFeOP gdHCC2W14hk8S0UPMiLYHa SVM8fRF7oS0tvAdfqszdoO VmdDsgdmVy bDreANmjPMmjH464OTEluT bkPl4LZJG6O7VvUus7TEQd lXcnSR7ffUXdVUdgKv2suW lpiHhoDE0p KKJepuajUKSkqB2vGIZwnX IywTeeEE6dYJGddxnna941 LfLoUBD4SIWmuCIhF0RnbG 9yOiAjMDAw VAUoG2NmwRGcLJrtZ139GG vcQdK9GREcqvRsB3JgQDBz rQnsSlE2c3Q5Sb3BULfzvX Q+RQ03oi57 Z0RbBgksQca4RZYcFWK0nP A3jC6qZEUtUGvmh9U5qZM7 Y7ZsecCplg2nn2xyABPaYY mcC78upHTo u5B0AMWzdJZ8FZVsnXtyVc LsoF91Ngm+KHPywOrnt5Wq Hlpfl4ozk2zdaWb4TpLxLV IgdmFsaWdu YYQ3q2TmEv62H91nDNlzPR ZsAVCrRUHjOGFhdZrwen9z wG0cPu8+FYTmhAT2mAO0vI 5iZwNdFlH7 QZxhL666DkIgsRJxNcgym3 rjm5vmuOn5TsLiHFVjmxYy eYjsIPX8d3TpOh01O1FnwQ wuh6NbAqy9 uj87sUQvk7L3eKA9P6MyNF HpdeogaRCybMrfOU0cGTDk nwnvADLrjJ4aSFMhQ9i1Qf VoRiQ0TOuv V9FjsjX6KMNjcZEwRGBvxI FWmI0notwig3xuqjioFfUl ZTGoPFp2KWf7DNRyjKpwRl WdHNZ4TfB6 BWS2eCWwsZ5zvUmbclrljU 9wOyc+HHe4r8pqhSRyZX8c bUI0VG87NB72cTQrm0L6hR I9N2FiOBOx ikepngwtsYJ8UTKxEHCqlB 07Vd1nuJmaSk6rYUNkTXF0 NLBfaKCyS0InwJ1qQoRbUM JwIUUfY1Mc hGLaAKxhJ522XPgoZjS0BT IqbkZcN7RkBCTybCaxYfL3 z7U6Ga9JUY38CT29MS16cF Kam0P8gRG8 P2RoBDRcwroprmglfIC9UC EtMBYllU47Xb3wiKdpNk2f DEYcGKP6NVRfiEZeP2BajT 9yOiAjMDAw QQFnE5MliOUsWJegD685HY llGhG0DMGmudJmX2ZjTNQx wNdcXmZ0x5O9Qi6SLd18CL 92UA84iUQo k7B1vST6R7IlXPAmgzismz xixER5QVBtETQmvP14Pl5z bTjyBm6aXAGmWRH6ZGJzjB JgH0RkpP2b YrQjOBUvIOSxX1TwmIBlAL mnP392BSukBoT9HIVhkiDp J2XyRDZkbJjsSwO6c8Z9Si 7XOCbytab0 X9GuLnaytLH+HC88QSWcPA 61rPQpkMPvb5fvzWk2ToRx SXMuGUQ0pDmwJDgco7HqTE QqH31onUXb c2U (more content not included)... [facility] Progress Note - Nurserae 01-23 Progress Note - Nurse Dr Ovalles reviews pt chart and no new orders were received. [Electronically Signed on: 02/04/2025 12:38 EDT] Miranda Head RN [Verified on: 02/04/2025 12:38 EDT] Miranda Head RN [facility] 36on 02-03-2025 36 Patient's says his BP is higher AFTER he takes lisinopril. They are leaving tomorrow to go to [place] for 2 weeks. I think they question [...] of his BP without, that was ok. Normal [facility] 36 PER BRENNAN STAY ON 5 MG Normal [facility] .Auto Diff 1on 02-02-2025 Auto Brule % 7 % Normal 1-12 [facility] Comment on above: Performed By: #### 7 [id number], [id number], [id number] ####[facility] (DEFAULT)[address] [place] [address] Baso Abs# 0.0 x10 Normal 0.0-0.2 [facility] Comment on above: Performed By: #### 7 [id number], [id number] ####[facility] (DEFAULT)[address] [place] [address] 81163 Basophils/100 WBC (Bld) 0.7 % Normal 0.2-2.0 [facility] Comment on above: Performed By: #### 7 [id number], [id number], [id number] ####[facility] (DEFAULT)[address] [place] [address]1202 Eos Abs# 0.2 x10 Normal 0.0-0.4 [facility] Comment on above: Performed By: #### 7 [id number], [id number], [id number] ####[facility] (DEFAULT)[address] [place] [address] 38818 Eosinophils/100 WBC (Bld) 2.9 % Normal 0.9-4.0 [facility] Comment on above: Performed By: #### 7 [id number], [id number], [id number] ####[facility] (DEFAULT)[address] [place] [address] 53398 Lymph Abs# 1.5 x10 Normal 1.3-2.9 [facility] Comment on above: Performed By: #### 7 [id number], [id number], [id number] ####[facility] (DEFAULT)[address] [place] [address] 94918 Lymphocytes/100 WBC (Bld) 22 % Normal 14-48 [facility] Comment on above: Performed By: #### 7 [id number], [id number], [id number] ####[facility] (DEFAULT)[address] [place] [address] Brule Abs# 0.5 x10 Normal 0.0-0.8 [facility] Comment on above: Performed By: #### 7 [id number], [id number], [id number] ####[facility] (DEFAULT)[address] [place] [address] Neut Abs# 4.6 x10 Normal 1.5-9.2 [facility] Comment on above: Performed By: #### 7 [id number], [id number], [id number] ####[facility] (DEFAULT)[address] [place] [address] Neutrophils/100 WBC (Bld) 67 % Normal 44-88 [facility] Comment on above: Performed By: #### 7 [id number], [id number], [id number] ####[facility] (DEFAULT)[address] [place] [address] BMP Standardon 02-02-2025 eGFR Non AA 58 mL/min/1.73m2 Invalid Interpretation Code [facility] Comment on above: Performed By: #### 7 [id number], [id number], [id number] ####[facility] (DEFAULT)[address] [place] [address] eGFR AA >60 Invalid Interpretation Code [facility] Comment on above: Performed By: #### 7 [id number], [id number], [id number] ####[facility] (DEFAULT)[address] [place] [address] Anion gap [Moles/Vol] 12.6 mmol/L Normal 5.0-19.0 [facility] Comment on above: Performed By: #### 7 [id number], [id number], [id number] ####[facility] (DEFAULT)[address] [place] [address] Calcium [Mass/Vol] 9.3 mg/dL Normal 8.9-10.3 [facility] Comment on above: Performed By: #### 7 [id number], [id number], [id number] ####[facility] (DEFAULT)[address] [place] [address] Chloride [Moles/Vol] 105 mmol/L Normal 101-111 [facility] Comment on above: Performed By: #### 7 [id number], [id number], [id number] ####[facility] (DEFAULT)[address] [place] [address] CO2 [Moles/Vol] 24 mmol/L Normal 21-32 [facility] Comment on above: Performed By: #### 7 [id number], [id number], [id number] ####[facility] (DEFAULT)[address] [place] [address]20 Creatinine [Mass/Vol] 1.23 mg/dL Normal 0.90-1.30 [facility] Comment on above: Performed By: #### 7 [id number], [id number], [id number] ####[facility] (DEFAULT)[address] [place] [address] 92566 Glucose [Mass/Vol] 103.0 mg/dL Normal 74.0-118.0 [facility] Comment on above: Performed By: #### 7 [id number], [id number], [id number] ####[facility] (DEFAULT)[address] [place] [address]123 Osmolality 280 mOsm/L Invalid Interpretation Code [facility] Comment on above: Performed By: #### 7 [id number], [id number], [id number] ####[facility] (DEFAULT)[address] [place] [address]394 Potassium [Moles/Vol] 3.6 mmol/L Normal 3.6-5.1 [facility] Comment on above: Performed By: #### 7 [id number], [id number], [id number] ####[facility] (DEFAULT)[address] [place] [address] Sodium [Moles/Vol] 138.0 mmol/L Normal 136.0-144.0 [facility] Comment on above: Performed By: #### 7 [id number], [id number], [id number] ####[facility] (DEFAULT)[address] [place] [address]130 Urea nitrogen [Mass/Vol] 23 mg/dL Normal 8-26 [facility] Comment on above: Performed By: #### 7 [id number], [id number], [id number] ####[facility] (DEFAULT)[address] [place] [address] Urea nitrogen/Creatinine [Mass ratio] 18.6 mg/mg High 4.6-16.2 [facility] Comment on above: Performed By: #### 7 [id number], [id number], [id number] ####[facility] (DEFAULT)[address] [place] [address] CBC w/ Auto Diffon Erythrocyte distribution width (RBC) [Ratio] 14.5 % Normal 11.5-15.0 [facility] Comment on above: Performed By: #### 7 [id number], [id number], [id number] ####[facility] (DEFAULT)[address] [place] [address] Hematocrit (Bld) [Volume fraction] 42.0 % Normal 34.8-51.9 [facility] Comment on above: Performed By: #### 7 123683, [id number], [id number] ####[facility] (DEFAULT)[address] [place] [address] Hemoglobin (Bld) [Mass/Vol] 14.4 g/dL Normal 11.8-17.7 [facility] Comment on above: Performed By: #### 7 707136, [id number], [id number] ####[facility] (DEFAULT)[address] [place] [address] Man Diff? Auto Invalid Interpretation Code [facility] Comment on above: Performed By: #### 7 [id number], [id number], [id number] ####[facility] (DEFAULT)[address] [place] [address] MCH (RBC) [Entitic mass] 31 pg Normal 24-34 [facility] Comment on above: Performed By: #### 7 [id number], [id number], [id number] ####[facility] (DEFAULT)[address] [place] [address] MCHC (RBC) [Mass/Vol] 34 g/dL Normal 26-37 [facility] Comment on above: Performed By: #### 7 579841, [id number], [id number] ####[facility] (DEFAULT)[address] [place] [address] 88275 MCV (RBC) [Entitic vol] 89 fL Normal 81-100 [facility] Comment on above: Performed By: #### 7 527944, [id number], [id number] ####[facility] (DEFAULT)[address] [place] [address] 632[address] Platelet 233 x10 Normal 138-427 [facility] Comment on above: Performed By: #### 7 [id number], [id number], [id number] ####[facility] (DEFAULT)[address] [place] [address] 12953 Platelet mean volume (Bld) [Entitic vol] 9.5 fL Normal 6.3-10.2 [facility] Comment on above: Performed By: #### 7 [id number], [id number], [id number] ####[facility] (DEFAULT)[address] [place] [address] 57523 RBC 4.71 x10 Normal 3.70-5.30 [facility] Comment on above: Performed By: #### 7 077494, [id number], [id number] ####[facility] (DEFAULT)[address] [place] [address] 92662 WBC 6.9 x10 Normal 3.5-10.5 [facility] Comment on above: Performed By: #### 7 969387, [id number], [id number] ####[facility] (DEFAULT)[address] [place] [address] 15673 Telephoneon 02-02-2025 Telephone [id number] Oscar Escoto 1950 M Date Provider Department Center 02/02/2025 [facility] Family History Problem Relation Age of Onset Other Mother Coronary artery disease Mother Other Father Family Status - Relation Status Age at Mother Father Normal [facility] 36on 12-24-2024 38 Patient called [...] keep an eye on his BP. Normal [facility] Telephoneon 12-11-2024 Telephone [phone] Oscar Escoto 1950 M [facility] Provider Department Center 12/11/2024 TRINITY DIAZ KATHARINA Wu Family History Problem Relation Age of Onset Other Mother Coronary artery disease Mother Other Father Family Status - Relation Status Age at Mother Father Normal [facility] XR Knee - bilateral AP W sta ndingon 11-11-2024 Imaging Result: Standing AP shows no gross evidence of major arthritic process, overall anatomic alignment appeared to be well preserved. There was no acute bony process including but not limited to fracture and/or dislocation. Impression: no gross evidence of major arthritic process or structural damage bilateral knees [facility] XR Knee - bilateral AP W sta ndingOrdered By: Jr. Waldrop on 11-11-2024 [facility] Work Phone: Office Visiton 11-10-2024 Follow-up visit [id number] Oscar Escoto 1950 M Date Provider Department Center 11/10/2024 Patrice-ROXANNE AMIN Family History Problem Relation Age of Onset Other Mother Coronary artery disease Mother Other Father Family Status - Relation Status Age at Mother Father Level of Service:30780 [place] OFFICE/OUTPATIENT ESTABLISHED LOW MDM 20 MIN Normal [facility] No Panel Informationon 11-09 Mary [...] discussed. Consent was given by the patient. [facility] XR Knee - bilateral AP W sta ndingon 11-09-2024 Radiology Study observation (narrative) [facility] Ambulatory Visit Summaryon 1 12-12-2023 Ambulatory [...] Natali IRAHETA MD Where: [facility] [address] [place] [address]- You Need to Schedule the Following Appointments Follow Up with Natali IRAHETA MD, URL When: Comments: 6 mos Where: [facility] [address], [place] [address]- [phone] Medications What How Much When Instructions New ciprofloxacin (Cipro 500 mg Tab) 1 Tablets By Mouth Every 12 hours Duration: 30 Days Pickup at [facility] Unchanged finasteride (finasteride 5 mg [...] physician if questions or concerns Pharmacy Information [facility]: [address] [place], [place] [id number] [phone] Allergies No Known Medication Allergies Problems Ongoing - Any problem that you are currently receiving treatment for. 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 Normal [facility] Office/Clinic Noteon 10-12-2024 Urology Office/Clinic [...] 20mg prn. 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 Normal [facility] Comment on above: Result Comment: Elec [...] De Oliveira MD on 10/08/2024 1:54 PM [facility] No Panel Informationon 08-13 Type of biopsy: [...] taken Amount of lidocaine used: 1.0 cc Formerly named [facility] Superficial Wound Cultureon 03-18-2023 Superficial Wound [...] RESISTANT TO ALL B-LACTAM DRUGS. PERFORMED BY: [place] [address] PATHOLOGIST ELECTRICAL INSTRUMENT MAKER ISABELLA MCKEON M.D. Normal [facility] Comment on above: Performed By: #### C USUP #### [address] ECHOCARDIO M/2D COMPLETEon 0 03-12-2023 ECHOCARDIO M/2D COMPLETE Patient: OSCAR ESCOTO Exam Date: 03/12/2023 : 1950 Gender:M Ordering : DR NORTH CHAPIN . Admission #: [id number] Family : ROXANNE AMIN MD Order #: [id number] CLICK HERE TO VIEW EXAM ECHOCARDIOGRAM REPORT [...] Solorio M.D. on 03/12/2023 at 18:41 Normal [facility] US CAROTID ART BILon 03-12-2 023 US CAROTID ART MOISES EXAMINATION: US [...] MARÍA BRYSON Date: 2023-03-12 15:01 Normal [facility] CBC AUTO DIFFon 03-06-2023 BASO # 0.1 103/ul Normal 0.0-0.1 [facility] Comment on above: Performed By: #### C BC #### [facility] [address] [place] [address] Dr. Sanjuana Kasper Basophils/100 WBC (Bld) 0.9 % Normal 0.2-2.0 [facility] Comment on above: Performed By: #### C BC #### [facility] [address] [place] [address] Dr. Sanjuana Kasper EO # 0.3 103/ul Normal 0.0-0.7 [facility] Comment on above: Performed By: #### C BC #### [facility] [address] [place] [address] Dr. Sanjuana Kasper Eosinophils/100 WBC (Bld) 5.0 % Normal 0.9-7.0 [facility] Comment on above: Performed By: #### C BC #### [facility] [address] [place] [address] Dr. Sanjuana Kasper Erythrocyte distribution width (RBC) [Ratio] 13.5 % Normal 11.0-15.0 [facility] Comment on above: Performed By: #### C BC #### [facility] [address] [place] [address] Dr. Sanjuana Kasper Hematocrit (Bld) [Volume fraction] 41.9 % Critically low 42.0-54.0 [facility] Comment on above: Performed By: #### C BC #### [facility] [address] [place] [address] Dr. Sanjuana Kasper Hemoglobin (Bld) [Mass/Vol] 13.9 g/dL Critically low 14.0-18.0 [facility] Comment on above: Performed By: #### C BC #### [facility] [address] [place] [address] Dr. Sanjuana Kasper IG # 0.02 10e3/ul Normal 0.00-0.03 [facility] Comment on above: Performed By: #### C BC #### [facility] [address] [place] [address] Dr. Sanjuana Kasper IG % 0.3 % Normal 0.0-0.5 [facility] Comment on above: Performed By: #### C BC #### [facility] [address] [place] [address] Dr. Sanjuana Kasper LYMPH # 1.4 103/ul Normal 1.2-3.8 [facility] Comment on above: Performed By: #### C BC #### [facility] [address] [place] [address] Dr. Sanjuana Kasper Lymphocytes/100 WBC (Bld) 23.8 % Normal 20.5-60.0 [facility] Comment on above: Performed By: #### C BC #### [facility] [address] [place] [address] Dr. Sanjuana Kasper MANUAL DIFF REQ NO Normal [facility] Comment on above: Performed By: #### C BC #### [facility] [address] [address] [address] Sanjuana Kasper MCH (RBC) [Entitic mass] 29.5 pg Normal 25.9-34.0 [facility] Comment on above: Performed By: #### C BC #### [facility] [address] [address] [address] Sanjuana Kasper MCHC (RBC) [Mass/Vol] 33.2 g/dL Normal 29.9-35.2 [facility] Comment on above: Performed By: #### C BC #### [facility] [address] [place] [address] Dr. Sanjuana Kasper MCV (RBC) [Entitic vol] 89.0 fL Normal 80.0-94.0 [facility] Comment on above: Performed By: #### C BC #### [facility] [address] [place] [address] Dr. Sanjuana Kasper MONO # 0.4 103/ul Normal 0.3-0.8 [facility] Comment on above: Performed By: #### C BC #### [facility] [address] [place] [address] Dr. Sanjuana Kasper Monocytes/100 WBC (Bld) 7.1 % Normal 1.7-12.0 [facility] Comment on above: Performed By: #### C BC #### [facility] [address] [place] [address] Dr. Sanjuana Kasper NEUT # 3.7 103/ul Normal 1.4-6.5 [facility] Comment on above: Performed By: #### C BC #### [facility] [address] [place] [address] Dr. Sanjuana Kasper Neutrophils/100 WBC (Bld) 62.9 % Normal 43.0-75.0 [facility] Comment on above: Performed By: #### C BC #### [facility] [address] [place] [address] Dr. Sanjuana Kasper Platelet mean volume (Bld) [Entitic vol] 10.6 fL Normal 9.5-13.5 [facility] Comment on above: Performed By: #### C BC #### [facility] [address] [address] [address] Sanjuana Kasper PLT 259 103/ul Normal 150-450 [facility] Comment on above: Performed By: #### C BC #### [facility] [address] [place] [address] Dr. Sanjuana Kasper RBC 4.71 106/ul Normal 4.70-6.10 [facility] Comment on above: Performed By: #### C BC #### [facility] [address] [address] [address] Sanjuana Kasper WBC 5.8 103/ul Normal 4.0-11.0 [facility] Comment on above: Performed By: #### C BC #### [facility] [address] [place] [address] Dr. Sanjuana Kasper GLYCOHEMOGLOBIN A1Con 2022 ADA RECOMMENDATION SEE BELOW Normal [facility] Comment on above: Result Comment: ADA RECOMMENDED LIMIT 4.0 - 6.0 ADA THERAPEUTIC TARGET < 7.0 ACTION SUGGESTED > 7.0 Performed By: #### A 1C #### [facility] [address] [place] [address] Dr. Sanjuana Kasper Glucose [Mass/Vol] 108 mg/dL Normal [facility] Comment on above: Performed By: #### A 1C #### [facility] [address] [place] [address] Dr. Sanjuana Kasper HbA1c (Bld) [Mass fraction] 5.4 % Normal 4.5-6.2 [facility] Comment on above: Performed By: #### A 1C #### [facility] [address] [place] [address] Dr. Sanjuana Kasper LIPID PROFILEon 03-06-2023 CHOL-HDL RATIO NORM SEE BELOW Normal [facility] Comment on above: Result Comment: 3.3 - 4.4 LOW RISK 4.4 - 7.1 AVERAGE RISK 7.1 - 11.0 MODERATE RISK >11.0 HIGH RISK Performed By: #### T SH, LIPID, BMP, LIVER #### [facility] [address] [address] [address] Sanjuana Kasper Cholesterol [Mass/Vol] 192 mg/dL Normal <=200 [facility] Comment on above: Performed By: #### T SH, LIPID, BMP, LIVER #### [facility] [address] [address] [address] Sanjuana Kasper Cholesterol in HDL [Mass/Vol] 61 mg/dL Critically high 40-60 [facility] Comment on above: Performed By: #### T SH, LIPID, BMP, LIVER #### [facility] [address] [address] [address] Sanjuana Kasper Cholesterol in LDL [Mass/Vol] 122.2 mg/dL Normal [facility] Comment on above: Performed By: #### T SH, LIPID, BMP, LIVER #### [facility] [address] [address] [address] Sanjuana Kasper Cholesterol.total/Cho lesterol in HDL [Mass ratio] 3.1 {ratio} Normal [facility] Comment on above: Performed By: #### T SH, LIPID, BMP, LIVER #### [facility] [address] [address] [address] Sanjuana Kasper HDL NORMAL > or = 60 mg/dl - LO W CARDIOVASCULAR RISK <40 mg/dl - HIGH CARDIOVASCULAR RISK Normal [facility] Comment on above: Performed By: #### T SH, LIPID, BMP, LIVER #### [facility] [address] [address] [address] Sanjuana Kasper LDL CALC NORMAL SEE BELOW Normal [facility] Comment on above: Result Comment: <100 mg/dl OPTIMAL 100 - 129 mg/dl NEAR OR ABOVE OPTIMAL 130 - 159 mg/dl BORDERLINE HIGH 160 - 189 mg/dl HIGH >190 mg/dl VERY HIGH Performed By: #### T SH, LIPID, BMP, LIVER #### [facility] [address] [address] [address] Sanjuana Kasper Triglyceride [Mass/Vol] 44 mg/dL Normal <=150 [facility] Comment on above: Performed By: #### T SH, LIPID, BMP, LIVER #### [facility] [address] [address] [address] Sanjuana Kasper VLDL CALC 8.8 mg/dL Normal [facility] Comment on above: Performed By: #### T SH, LIPID, BMP, LIVER #### [facility] [address] [address] [address] Sanjuana Kasper LIVER PROFILEon 03-06-2023 Albumin [Mass/Vol] 3.6 g/dL Normal 3.4-5.0 [facility] Comment on above: Performed By: #### T SH, LIPID, BMP, LIVER ####[facility] [address] [address]Dr. Sanjuana Kasper Albumin/Globulin [Mass ratio] 1.0 {ratio} Normal [facility] Comment on above: Performed By: #### T SH, LIPID, BMP, LIVER ####[facility] [address] [address]Dr. Sanjuana Kasper ALP [Catalytic activity/Vol] 91 U/L Normal 46-116 [facility] Comment on above: Performed By: #### T SH, LIPID, BMP, LIVER ####[facility] [address] [address]Dr. Sanjuana Kasper ALT [Catalytic activity/Vol] 28 U/L Normal 16-63 [facility] Comment on above: Performed By: #### T SH, LIPID, BMP, LIVER ####[facility] [address] [id number]. Sanjuana Kasper AST [Catalytic activity/Vol] 16 U/L Normal 15-37 [facility] Comment on above: Performed By: #### T SH, LIPID, BMP, LIVER ####[facility] [address] [address]Dr. Sanjuana Kasper BILI, CONJUGATED 0.1 mg/dL Normal 0.0-0.2 [facility] Comment on above: Performed By: #### T SH, LIPID, BMP, LIVER ####[facility] [address] [address]DrYonatan Kasper Bilirubin [Mass/Vol] 0.4 mg/dL Normal 0.2-1.0 [facility] Comment on above: Performed By: #### T SH, LIPID, BMP, LIVER ####[facility] [address] [address]Dr. Sanjuana Kasper Globulin (S) [Mass/Vol] 3.6 g/dL Normal [facility] Comment on above: Performed By: #### T SH, LIPID, BMP, LIVER ####[facility] [address] [address]Dr. Sanjuana Kasper Protein [Mass/Vol] 7.2 g/dL Normal 6.4-8.2 [facility] Comment on above: Performed By: #### T SH, LIPID, BMP, LIVER ####[facility] [address] [place], [place] [address]Dr. Sanjuana Kasper PROF CHEM 8 (BAS METB)on Anion gap [Moles/Vol] 12.2 mmol/L Normal [facility] Comment on above: Performed By: #### T SH, LIPID, BMP, LIVER ####[facility] [address] [place], [place] [address]Dr. Sanjuana Kasper Calcium [Mass/Vol] 9.1 mg/dL Normal 8.5-10.1 [facility] Comment on above: Performed By: #### T SH, LIPID, BMP, LIVER ####[facility] [address] [place], [place] [address]Dr. Sanjuana Kasper Chloride [Moles/Vol] 106 mmol/L Normal 98-107 [facility] Comment on above: Performed By: #### T SH, LIPID, BMP, LIVER ####[facility] [address] [address]Dr. Sanjuana Kasper CO2 [Moles/Vol] 26.9 mmol/L Normal 21.0-32.0 [facility] Comment on above: Performed By: #### T SH, LIPID, BMP, LIVER ####[facility] [address] [address]Dr. Sanjuana Kasper Creatinine [Mass/Vol] 0.98 mg/dL Normal 0.70-1.30 [facility] Comment on above: Performed By: #### T SH, LIPID, BMP, LIVER ####[facility] [address] [address]Dr. Carlalan Kasper EGFR-AF [place] >60 Normal >=60 [facility] Comment on above: Performed By: #### T SH, LIPID, BMP, LIVER ####[facility] [address] [address]Dr. Carlalan Kasper EGFR-NON AF [place] >60 Normal >=60 [facility] Comment on above: Performed By: #### T SH, LIPID, BMP, LIVER ####[facility] [address] [address]Dr. Sanjuana Kasper Glucose [Mass/Vol] 94 mg/dL Normal 74-106 [facility] Comment on above: Performed By: #### T SH, LIPID, BMP, LIVER ####[facility] [address] [address]Dr. Sanjuana Kasper Potassium [Moles/Vol] 4.1 mmol/L Normal 3.5-5.1 [facility] Comment on above: Performed By: #### T SH, LIPID, BMP, LIVER ####[facility] [address] [place], [place] [address]Dr. Sanjuana Kasper Sodium [Moles/Vol] 141 mmol/L Normal 136-145 [facility] Comment on above: Performed By: #### T SH, LIPID, BMP, LIVER ####[facility] [address] [address]Dr. Sanjuana Kasper Urea nitrogen [Mass/Vol] 17.0 mg/dL Normal 7.0-18.0 [facility] Comment on above: Performed By: #### T SH, LIPID, BMP, LIVER ####[facility] [address] [address]Dr. Sanjuana Kasper Urea nitrogen/Creatinine [Mass ratio] 17.3 mg/mg Normal [facility] Comment on above: Performed By: #### T SH, LIPID, BMP, LIVER ####[facility] [address] [address]Dr. Sanjuana Kasper TSHon 03-06-2023 TSH 1.951 uIU/mL Normal 0.358-3.740 [facility] Comment on above: Performed By: #### T SH, LIPID, BMP, LIVER #### [facility] [address] [place], [place] [id number] Dr. Sanjuana Kasper CT FOOT LT WO [...] RAZ MATOS Date: 2022-12-20 14:53 Normal [facility] POINT OF CARE GLUCOSEon 11-0 Glucose [Mass/Vol] 94 mg/dL Normal 74-106 [facility] Comment on above: Performed By: #### P OCGLUC #### [facility] [address] [place] [address] Dr. Sanjuana Kasper XR FOOT LT 2Von [...] MARÍA BRYSON Date: 2022-09-27 18:28 Normal [facility]26 SARS-CoV-2 (COVID-19) RNA DAISY+probe Ql (Unsp spec) Not detected Normal NOT DETECTED [facility] Comment on above: Result Comment: This test is not yet approved or cleared by the [place] FDA. When there are no FDA-approved or cleared tests available, and other criteria are met, FDA can make tests available under an emergency access mechanism called an Emergency Use Authorization (EUA). The EUA for this test is supported by the [place] of Health and Human Service's (HHS's) declaration [...] with SARS-CoV-2. Performed By: #### C VDTB ####[facility] [address] [place], [place] [address]Dr. Sanjuana Kasper PROF CHEM 8 (BAS METB)on Anion gap [Moles/Vol] 11.6 mmol/L Normal [facility] Comment on above: Performed By: #### B MP ####[facility] [address] [place], [place] [address]Dr. Sanjuana Kasper Calcium [Mass/Vol] 8.6 mg/dL Normal 8.5-10.1 [facility] Comment on above: Performed By: #### B MP ####[facility] [address] [address]Dr. Sanjuana Kasper Chloride [Moles/Vol] 107 mmol/L Normal 98-107 [facility] Comment on above: Performed By: #### B MP ####[facility] [address] [place], [place] [address]Dr. Sanjuana Kasper CO2 [Moles/Vol] 26.2 mmol/L Normal 21.0-32.0 [facility] Comment on above: Performed By: #### B MP ####[facility] [address] [address]Dr. Sanjuana Kasper Creatinine [Mass/Vol] 1.28 mg/dL Normal 0.70-1.30 [facility] Comment on above: Performed By: #### B MP ####[facility] [address] [address]Dr. Sanjuana Kasper EGFR-AF [place] >60 Normal >=60 [facility] Comment on above: Performed By: #### B MP ####[facility] [address] [address]Dr. Sanjuana Kasper EGFR-NON AF [place] 56 mL/min/1.73m2 Critically low >=60 [facility] Comment on above: Performed By: #### B MP ####[facility] [address] [address]Dr. Sanjuana Kasper Glucose [Mass/Vol] 121 mg/dL Critically high 74-106 [facility] Comment on above: Performed By: #### B MP ####[facility] [address] [address]Dr. Sanjuana Kasper Potassium [Moles/Vol] 3.8 mmol/L Normal 3.5-5.1 [facility] Comment on above: Performed By: #### B MP ####[facility] [address] [address]Dr. Carlayazmin Ranjith Sodium [Moles/Vol] 141 mmol/L Normal 136-145 [facility] Comment on above: Performed By: #### B MP ####[facility] [address] [address]Dr. Sanjuana Kasper Urea nitrogen [Mass/Vol] 24.0 mg/dL Critically high 7.0-18.0 [facility] Comment on above: Performed By: #### B MP ####[facility] [address] [address]Dr. Carlayazmin Ranjith Urea nitrogen/Creatinine [Mass ratio] 18.8 mg/mg Normal [facility] Comment on above: Performed By: #### B MP ####[facility] [address] [address]Dr. Sanjuana Kasper PROTIMEon 09-21-2022 INR Coag (PPP) [Relative time] 1.05 {INR} Normal [facility] Comment on above: Performed By: #### P TT, PT ####[facility] [address] [address]Dr. Sanjuana Kasper INR GUIDELINES SEE BELOW Normal [facility] Comment on above: Result Comment: VERONICA RED INR: 2.0 - 3.0 CONDITIONS NOT LISTED BELOW 2.5 - 3.5 FOR PROSTHETIC HEART VALVE REPLACEMENT 2.5 - 3.5 RECURRENT THROMBOSIS Performed By: #### P TT, PT ####[facility] [address] [place], [place] [address]Dr. Sanjuana Kasper PT Coag (PPP) [Time] 11.3 s Normal 9.0-11.6 [facility] Comment on above: Performed By: #### P TT, PT ####[facility] [address] [place], [place] [address]Dr. Sanjuana Kasper PTTon 09-21-2022 aPTT Coag (Bld) [Time] 30.0 s Normal 22.3-36.2 [facility] Comment on above: Performed By: #### P TT, PT ####[facility] [address] [place], [place] [address]Dr. Sanjuana Kasper XR FOOT MOISES MIN 3 [...] MARÍA BRYSON Date: 2022-08-01 17:51 Normal [facility] Covid-19 PCR (CVDTB)on 05-25 SARS-CoV-2 (COVID-19) RNA DAISY+probe Ql (Unsp spec) Not detected Normal NOT DETECTED [facility] Comment on above: Result Comment: This test is not yet approved or cleared by the [place] FDA. When there are no FDA-approved or cleared tests available, and other criteria are met, FDA can make tests available under an emergency access mechanism called an Emergency Use Authorization (EUA). The EUA for this test is supported by the [place] of Health and Human Service's (HHS's) declaration [...] consistent with SARS-CoV-2. Performed By: #### C [facility] #### [facility] [address] [place] [address] Dr. Sanjuana Medina 04-20-2022 L -- ---- Specimen: [id number] Received: 04/20/22 Status: LENIN Trejo Num: [id number] Spec Type: Surgical Subm Dr: Miguel Astorga DO Tissues: A Debridement-Skin/Other Than Skin (SCALP) Procedures: HE Stain, Gross/Micro L3 ---- Patient Age/Sex Location Account Attending Physician ---- Oscar Escoto 72/M CT [id number] Miguel Astorga DO ---- SPEC NUM: [id number] RECD: 04/20/22 STATUS: LENIN TREJO NUM: [id number] DEMARCUS: 04/20/22- DR: Miguel Astorga DO ENTERED: 04/20/[address] [facility] [address]: JUAN MANUEL TYPE: Surgical DEPT: [...] thin rim of owusu unremarkable appearing skin. Applications Support Lead sections are submitted in one cassette labeled A1. Type of Fixative: 10% Neutral Buffered Formalin (NORM/ROHIT) Microscopic Description One glass slide with H E stained material has been examined. The microscopic findings support the above pathologic diagnosis. ---- Specimen: [id number] Received: 04/20/22 Status: LENIN Trejo Num: [id number] Spec Type: Surgical Subm Dr: Miguel Astorga DO Tissues: A Debridement-Skin/Other Than Skin (SCALP) Procedures: HE Stain, Gross/Micro L3 ---- Patient: Oscar Escoto [id number] (Continued) ---- Specimen: [id number] Received: 04/20/22 (Continued) Signed (signature on file) Favio Chong MD 04/24/222025 ---- Specimen: Received: 04/20/22 Status: LENIN Trejo Num: [id number] Spec Type: Surgical Subm Dr: Miguel Astorga DO Tissues: A Debridement-Skin/Other Than Skin (SCALP) Procedures: HE Stain, Gross/Micro L3 ---- Patient: Oscar Escoto [id number] (Continued) ---- Specimen: Received: 04/20/22 (Continued) CPT Codes 92950 ---- ---- Specimen: Received: 04/20/22 Status: LENIN Trejo Num: [id number] Spec Type: Surgical Subm Dr: Miguel Astorga DO Tissues: A Debridement-Skin/Other Than Skin (SCALP) Procedures: HE Stain, Gross/Micro L3 ---- Patient: Oscar Escoto [id number] (Continued) ---- Signed (signature on file) Favio Chong MD 04/24/222025 Normal [facility] Basic Metabolic Panelon 05-2 Calcium [Mass/Vol] 9.1 mg/dL Normal 8.2-10.2 [facility] Comment on above: Result Comment: PERF ORMED BY: [facility] [address] [facility] [place] [address] PATHOLOGIST ELECTRICAL INSTRUMENT MAKER ISABELLA MCKEON M.D. Performed By: #### B MP, CBC #### [facility] [address] [place] [address] [place] Chloride [Moles/Vol] 103 mmol/L Normal 95-114 [facility] Comment on above: Performed By: #### B MP, CBC #### [facility] [address] [place] [address] [place] CO2 [Moles/Vol] 25.0 mmol/L Normal 22.0-30.[address] [facility] Comment on above: Performed By: #### B MP, CBC #### [facility] [address] [place] [address] [place] Creatinine [Mass/Vol] 1.13 mg/dL Normal 0.64-1.27 [facility] Comment on above: Performed By: #### B MP, CBC #### [facility] [address] [place] [address] [place] Estimated GFR ( Ariane > 60 Normal [facility] Comment on above: Result Comment: GFR estimated reference range: According to KDOQI guidelines, <60 ml/min/1.73m2 is sufficient to diagnose a patient with chronic kidney disease. Performed By: #### B MP, CBC #### [facility] [address] Estimated GFR (Non- Am > 60 Normal [facility] Comment on above: Performed By: #### B MP, CBC #### [facility] [address] [place] [address] [place] Glucose [Mass/Vol] 102 mg/dL High 70-100 [facility] Comment on above: Result Comment: [place] om Glucose Reference Range is dependent on time and content of last meal. Glucose of more than 200 mg/dL in a nonstressed, ambulatory subject supports the diagnosis of Diabetes Mellitus. ADA recommended reference range Performed By: #### B MP, CBC #### [facility] [address] [place] [id number] [place] Potassium [Moles/Vol] 4.2 mmol/L Normal 3.5-5.1 [facility] Comment on above: Performed By: #### B MP, CBC #### [facility] [address] [place] [id number] [place] Sodium [Moles/Vol] 137 mmol/L Normal 136-146 [facility] Comment on above: Performed By: #### B MP, CBC #### [facility] [address] [place] [id number] [place] Urea nitrogen [Mass/Vol] 18 mg/dL Normal 9-23 [facility] Comment on above: Performed By: #### B MP, CBC #### [facility] [address] [place] [address] [facility] Basophils Auto (Bld) [#/Vol] Ordered By: Miguel Astorga on 04-19-2022 Basophils (Bld) [#/Vol] 0.1 10*3/uL 0.0-0.2 [facility] Basophils/100 WBC Auto (Bld) Ordered By: Miguel Astorga on 04-19-2022 Basophils/100 WBC (Bld) 0.9 % [facility] Blood hemoglobin measurement (mass/volume)Ordered By: Miguel Astorga on 04-19-2022 Hemoglobin (Bld) [Mass/Vol] 14.3 g/dL 13.0-17.0 [facility] Blood leukocytes automated c ount (number/volume)Ordered By: Miguel Astorga on 04-19-2022 WBC (Bld) [#/Vol] 5.5 10*3/uL 4.5-11.0 [facility] COVID-19 FRMCon 04-19-2022 SARS-CoV-2 (COVID-19) RNA DAISY+probe Ql (Unsp spec) Negative Normal Negative [facility] Comment on above: Order Comment: Comme nt For surgery tomorrow Healthcare Worker?: N Result Comment: Testing for SARS-CoV-2 by RT-PCR This test was developed and its performance characteristics determined by [employer] ([employer]) and validated at the [facility]. This test has not been FDA cleared [...] is terminated or revoked sooner. PERFORMED BY: [place] [address] PATHOLOGIST ELECTRICAL INSTRUMENT MAKER ISABELLA MCKEON M.D. Performed By: #### C OVID 19 [facility] #### [address] COVID-19 Positive/NegativeOr dered By: Miguel Astorga on 04-19-2022 SARS-CoV-2 (COVID-19) N gene DAISY+probe Ql (Resp) Negative Negative [facility] Comment on above: Testing for SARS-CoV -2 by RT-PCR This test was developed and its performance characteristics determined by [employer] ([employer]) and validated at the [facility]. This test has not been FDA cleared [...] Basophils (Bld) [#/Vol] 0.1 10*3/uL Normal 0.0-0.2 [facility] Comment on above: Result Comment: PERF ORMED BY: [facility] [address] [place] [address] PATHOLOGIST ELECTRICAL INSTRUMENT MAKER ISABELLA MCKEON M.D. Performed By: #### B MP, CBC #### [address] Basophils/100 WBC (Bld) 0.9 % Normal . [facility] Comment on above: Performed By: #### B MP, CBC #### [facility] [address] [place] [address] [place] Eosinophils (Bld) [#/Vol] 0.2 10*3/uL Normal 0.0-0.45 [facility] Comment on above: Performed By: #### B MP, CBC #### [facility] [address] Eosinophils/100 WBC (Bld) 3.9 % Normal . [facility] Comment on above: Performed By: #### B MP, CBC #### [address] Erythrocyte distribution width (RBC) [Ratio] 14.1 % Normal 12.0-14.8 [facility] Comment on above: Performed By: #### B MP, CBC #### [address] Hematocrit (Bld) [Volume fraction] 43.0 % Normal 38.8-50.0 [facility] Comment on above: Performed By: #### B MP, CBC #### [address] Hemoglobin (Bld) [Mass/Vol] 14.3 g/dL Normal 13.0-17.0 [facility] Comment on above: Performed By: #### B MP, CBC #### [address] Lymphocytes (Bld) [#/Vol] 1.4 10*3/uL Normal 1.00-4.8 [facility] Comment on above: Performed By: #### B MP, CBC #### [place] [address] [place] Lymphocytes/100 WBC (Bld) 25.7 % Normal . [facility] Comment on above: Performed By: #### B MP, CBC #### [address] MCH (RBC) [Entitic mass] 29.9 pg Normal 27.5-35.2 [facility] Comment on above: Performed By: #### B MP, CBC #### [address] [place] [address] [place] MCV (RBC) [Entitic vol] 89.8 fL Normal 83.5-101 [facility] Comment on above: Performed By: #### B MP, CBC #### [facility] [address] Mean Corpuscular HGB Conc 33.3 g/dL Normal 32.5-35.6 [facility] Comment on above: Performed By: #### B MP, CBC #### [facility] [address] Monocytes (Bld) [#/Vol] 0.4 10*3/uL Normal 0.0-0.8 [facility] Comment on above: Performed By: #### B MP, CBC #### [address] Monocytes/100 WBC (Bld) 6.9 % Normal . [facility] Comment on above: Performed By: #### B MP, CBC #### [address] Neutrophils (Bld) [#/Vol] 3.5 10*3/uL Normal 1.8-7.7 [facility] Comment on above: Performed By: #### B MP, CBC #### [address] Neutrophils/100 WBC (Bld) 62.6 % Normal . [facility] Comment on above: Performed By: #### B MP, CBC #### [place] [address] [place] Nucleated RBC/100 WBC (Bld) [Ratio] 0.1 % Normal 0-0.5 [facility] Comment on above: Performed By: #### B MP, CBC #### [address] Platelet mean volume (Bld) [Entitic vol] 8.9 fL Normal 6.6-10.1 [facility] Comment on above: Performed By: #### B MP, CBC #### [place] [id number] [place] Platelets (Bld) [#/Vol] 260 10*3/uL Normal 150-450 [facility] Comment on above: Performed By: #### B MP, CBC #### [facility] [address] RBC (Bld) [#/Vol] 4.79 10*6/uL Normal 3.90-5.60 [facility] Comment on above: Performed By: #### B MP, CBC #### [facility] [address] WBC (Bld) [#/Vol] 5.5 10*3/uL Normal 4.5-11.0 [facility] Comment on above: Performed By: #### B MP, CBC #### [address] Creatinine and Glomerular fi ltration rate.predicted panel (S/P/Bld)Ordered By: Miguel Astorga on 04-19-2022 Creatinine [Mass/Vol] 1.13 mg/dL 0.64-1.27 [facility] ECG 12 lead ECGon 04-19-2022 ECG 12 lead ECG [facility] Main [place] [address] [place] [address] Electrocardiograph Report Signed Patient: Oscar Escoto MR#: [id number] : 1950 Acct:[id number] Age/Sex: 72 / M ADM Date: 04/19/22 Loc: Room: Type: [facility] Attending Dr: Miguel Astorga DO Ordering [...] Suzie Garza MD 0 04/20/22 1516 Normal [facility] Eosinophils Auto (Bld) [#/Vo l]Ordered By: Miguel Astorga on 04-19-2022 Eosinophils (Bld) [#/Vol] 0.2 10*3/uL 0.0-0.45 [facility] Eosinophils/100 WBC Auto (Bl d)Ordered By: Miguel Astorga on 04-19-2022 Eosinophils/100 WBC (Bld) 3.9 % [facility] Erythrocyte distribution wid th Auto (RBC) [Ratio]Ordered By: Miguel Astorga on 04-19-2022 Erythrocyte distribution width (RBC) [Ratio] 14.1 % 12.0-14.8 [facility] Estimated glomerular filtrat ion rate (GFR) non- AmericanOrdered By: Miguel Astorga on 04-19-2022 GFR/1.73 sq M.predicted among non-blacks MDRD (S/P/Bld) [Vol rate/Area] > 60 mL/Min [facility] Hematocrit Auto (Bld) [Volum e fraction]Ordered By: Miguel Astorga on 04-19-2022 Hematocrit (Bld) [Volume fraction] 43.0 % 38.8-50.0 [facility] Laboratory - Hematology and Cell countsOrdered By: Miguel Astorga on 04-19-2022 Nucleated RBC/100 WBC (Bld) [Ratio] 0.1 % 0-0.5 [facility] Lymphocytes Auto (Bld) [#/Vo l]Ordered By: Miguel Astorga on 04-19-2022 Lymphocytes (Bld) [#/Vol] 1.4 10*3/uL 1.00-4.8 [facility] Lymphocytes/100 WBC Auto (Bl d)Ordered By: Miguel Astorga on 04-19-2022 Lymphocytes/100 WBC (Bld) 25.7 % [facility] MCH Auto (RBC) [Entitic mass ]Ordered By: Miguel Astorga on 04-19-2022 MCH (RBC) [Entitic mass] 29.9 pg 27.5-35.2 [facility] MCHC Auto (RBC) [Mass/Vol]Or dered By: Miguel Asotrga on 04-19-2022 MCHC (RBC) [Mass/Vol] 33.3 g/dL 32.5-35.6 [facility] MCV Auto (RBC) [Entitic vol] Ordered By: Miguel Astorga on 04-19-2022 MCV (RBC) [Entitic vol] 89.8 fL 83.5-101 [facility] Monocytes Auto (Bld) [#/Vol] Ordered By: Miguel Astorga on 04-19-2022 Monocytes (Bld) [#/Vol] 0.4 10*3/uL 0.0-0.8 [facility] Monocytes/100 WBC Auto (Bld) Ordered By: Miguel Astorga on 04-19-2022 Monocytes/100 WBC (Bld) 6.9 % [facility] Neutrophils Auto (Bld) [#/Vo l]Ordered By: Miguel Astorga on 04-19-2022 Neutrophils (Bld) [#/Vol] 3.5 10*3/uL 1.8-7.7 [facility] Neutrophils/100 WBC Auto (Bl d)Ordered By: Miguel Astorga on 04-19-2022 Neutrophils/100 WBC (Bld) 62.6 % [facility] No Panel InformationOrdered By: Miguel Astorga on 04-19-2022 Estimated GFR () > 60 mL/Min [facility] Comment on above: GFR estimated refere nce range: According to KDOQI guidelines, <60 ml/min/1.73m2 is sufficient to diagnose a patient with chronic kidney disease. Pharmacy Creatinine Clearance (Chem N/A [facility] Platelet mean volume Auto (B ld) [Entitic vol]Ordered By: Miguel Astorga on 04-19-2022 Platelet mean volume (Bld) [Entitic vol] 8.9 fL 6.6-10.1 [facility] Platelets Auto (Bld) [#/Vol] Ordered By: Miguel Astorga on 04-19-2022 Platelets (Bld) [#/Vol] 260 10*3/uL 150-450 [facility] RBC Auto (Bld) [#/Vol]Ordere d By: Miguel Astorga on 04-19-2022 RBC (Bld) [#/Vol] 4.79 10*6/uL 3.90-5.60 [facility] Serum or plasma calcium dieter urement (mass/volume)Ordered By: Miguel Astorga on 04-19-2022 Calcium [Mass/Vol] 9.1 mg/dL 8.2-10.2 [facility] Serum or plasma chloride shashank surement (moles/volume)Ordered By: Miguel Astorga on 04-19-2022 Chloride [Moles/Vol] 103 mmol/L 95-114 [facility] Serum or plasma glucose dieter urement (mass/volume)Ordered By: Miguel Astorga on 04-19-2022 Glucose [Mass/Vol] 102 mg/dL 70-100 [facility] Comment on above: ADA recommended refe rence range Random Glucose Reference Range is dependent on time and content of last meal. Glucose of more than 200 mg/dL in a nonstressed, ambulatory subject supports the diagnosis of Diabetes Mellitus. Serum or plasma potassium me asurement (moles/volume)Ordered By: Miguel Astorga on 04-19-2022 Potassium [Moles/Vol] 4.2 mmol/L 3.5-5.1 [facility] Serum or plasma sodium measu rement (moles/volume)Ordered By: Miguel Astorga on 04-19-2022 Sodium [Moles/Vol] 137 mmol/L 136-146 [facility] Serum or plasma total carbon dioxide measurement (moles/volume)Ordered By: Miguel Astorga on 04-19-2022 CO2 [Moles/Vol] 25.0 mmol/L 22.0-30.[address] [facility] Serum or plasma urea nitroge n measurement (mass/volume)Ordered By: Miguel Astorga on 04-19-2022 Urea nitrogen [Mass/Vol] 18 mg/dL 9-23 [facility] Vital Signs Date Time Vital Sign Value Performing Clinician Facility 09-01-2025 09:43-0400 Body height 188 cm America Ambrocio MD Work Phone: [facility] 09-01-2025 09:43-0400 Body mass index (BMI) [Ratio] 32.12 kg/m2 America Ambrocio MD Work Phone: [facility] 09-01-2025 09:43-0400 Body weight 113.49 kg America Ambrocio MD Work Phone: [facility] 07-14-2025 10:16-0400 Body height 188 cm Kavya Germain DO Work Phone: [facility] 07-14-2025 10:16-0400 Body mass index (BMI) [Ratio] 31.33 kg/m2 Kavya Germain DO Work Phone: [facility] 07-14-2025 10:16-0400 Body weight 110.68 kg Kavya Germain DO Work Phone: [facility] 06-30-2025 07:57-0400 Body height 188 cm North Chapin MD Work Phone: [facility] 06-30-2025 07:57-0400 Body mass index (BMI) [Ratio] 31.97 kg/m2 North Chapin MD Work Phone: [facility] 06-30-2025 07:57-0400 Body temperature 97.5 [degF] North Chapin MD Work Phone: [facility] 06-30-2025 07:57-0400 Body weight 112.95 kg North Chapin MD Work Phone: [facility] 06-30-2025 07:57-0400 Diastolic blood pressure 62 mm[Hg] North Chapin MD Work Phone: [facility] 06-30-2025 07:57-0400 Heart rate 68 /min North Chapin MD Work Phone: [facility] 06-30-2025 07:57-0400 Respiratory rate 20 /min North Chapin MD Work Phone: [facility] 06-30-2025 07:57-0400 SaO2% (BldA) [Mass fraction] 95 % North Chapin MD Work Phone: [facility] 06-30-2025 07:57-0400 Systolic blood pressure 148 mm[Hg] North Chapin MD Work Phone: [facility] 04-05-2025 12:41-0400 Blood Pressure Location Natali IRAHETA [facility] 04-05-2025 12:41-0400 Body temperature 98.6 [degF] Natali IRAHETA [facility] 04-05-2025 12:41-0400 Diastolic blood pressure 68 mm[Hg] Natali IRAHETA [facility] 04-05-2025 12:41-0400 Heart rate 66 /min Natali IRAHETA [facility] 04-05-2025 12:41-0400 Respiratory rate 19 /min Natali IRAHETA [facility] 04-05-2025 12:41-0400 Systolic blood pressure 128 mm[Hg] Natali IRAHETA [facility] 03-29-2025 14:09-0400 Body height 188 cm North Chapin MD Work Phone: [facility] 03-29-2025 14:09-0400 Body mass index (BMI) [Ratio] 33.38 kg/m2 North Chapin MD Work Phone: [facility] 03-29-2025 14:09-0400 Body temperature 97.81 [degF] North Chapin MD Work Phone: [facility] 03-29-2025 14:09-0400 Body weight 117.94 kg North Chapin MD Work Phone: [facility] 03-29-2025 14:09-0400 Diastolic blood pressure 68 mm[Hg] North Chapin MD Work Phone: [facility] 03-29-2025 14:09-0400 Heart rate 64 /min North Chapin MD Work Phone: [facility] 03-29-2025 14:09-0400 Respiratory rate 18 /min North Chapin MD Work Phone: [facility] 03-29-2025 14:09-0400 SaO2% (BldA) [Mass fraction] 97 % North Chapin MD Work Phone: [facility] 03-29-2025 14:09-0400 Systolic blood pressure 142 mm[Hg] North Chapin MD Work Phone: [facility] 02-02-2025 15:24-0400 Body height 188 cm Bud SUBRAMANIAN Work Phone: [facility] 02-02-2025 15:24-0400 Body mass index (BMI) [Ratio] 31.97 kg/m2 Bud SUBRAMANIAN Work Phone: [facility] 02-02-2025 15:24-0400 Body weight 112.95 kg Bud SUBRAMANIAN Work Phone: [facility] 10-12-2024 15:33-0500 Blood Pressure Location Natali IRAHETA [facility] 10-12-2024 15:33-0500 Body temperature 98.6 [degF] Natali IRAHETA [facility] 10-12-2024 15:33-0500 Diastolic blood pressure 75 mm[Hg] Natali IRAHETA [facility] 10-12-2024 15:33-0500 Heart rate 60 /min Natali IRAHETA [facility] 10-12-2024 15:33-0500 Respiratory rate 16 /min Natali IRAHETA [facility] 10-12-2024 15:33-0500 Systolic blood pressure 128 mm[Hg] Natali IRAHETA [facility] 10-07-2024 13:39-0500 Body height 188 cm Cecilia Verhoff PA-C Work Phone: [facility] [employer] [facility] 10-07-2024 13:39-0500 Body mass index (BMI) [Ratio] 31.33 kg/m2 Cecilia Verhoff PA-C Work Phone: [facility] [employer] [facility] 10-07-2024 13:39-0500 Body weight 110.68 kg Cecilia Verhoff PA-C Work Phone: [facility] [employer] [facility] 10-07-2024 13:39-0500 Diastolic blood pressure 68 mm[Hg] Cecilia Verhoff PA-C [facility] 10-07-2024 13:39-0500 Heart rate 66 /min Cecilia Verhoff [facility]-C [facility] 10-07-2024 13:39-0500 SaO2% (BldA) [Mass fraction] 94 % Cecilia Verhoff PA-C Work Phone: [facility] [employer] [facility] 10-07-2024 13:39-0500 Systolic blood pressure 133 mm[Hg] Cecilia Verhoff PA-C [facility] Phone[facility] 06-24-2023 15:47-0400 Blood Pressure Location Natali IRAHETA [facility] 06-24-2023 15:47-0400 Diastolic blood pressure 80 mm[Hg] Natali IRAHETA [facility] 06-24-2023 15:47-0400 Heart rate 68 /min Natali IRAHETA [facility] 06-24-2023 15:47-0400 Respiratory rate 16 /min Natali IRAHETA [facility] 06-24-2023 15:47-0400 Systolic blood pressure 130 mm[Hg] Natali IRAHETA [facility] 05-07-2022 14:57-0400 Blood Pressure Location Natali IRAHETA [facility] 05-07-2022 14:57-0400 Diastolic blood pressure 81 mm[Hg] Natali IRAHETA [facility] 05-07-2022 14:57-0400 Heart rate 72 /min Natali IRAHETA [facility] 05-07-2022 14:57-0400 Respiratory rate 16 /min Natali IRAHETA [facility] 05-07-2022 14:57-0400 Systolic blood pressure 149 mm[Hg] Natali IRAHETA [facility] 04-20-2022 15:00-0400 Diastolic blood pressure 58 mm[Hg] DO Miguel Murcek Work Phone: [facility] 04-20-2022 15:00-0400 Heart rate 72 /min DO Miguel Murcek Work Phone: [facility] 04-20-2022 15:00-0400 Respiratory rate 16 /min DO Miguel Astorga Work Phone: [facility] 04-20-2022 15:00-0400 SaO2% (BldA) [Mass fraction] 95 % DO Miguel Astorga Work Phone: [facility] 04-20-2022 15:00-0400 Systolic blood pressure 118 mm[Hg] DO iMguel Astorga Work Phone: [facility] 04-20-2022 13:09-0400 Body temperature 97.5 [degF] DO Miguel Astorga Work Phone: [facility] 04-20-2022 13:09-0400 Inhaled oxygen flow rate 6 L/min DO Miguel Astorga Work Phone: [facility] 04-20-2022 12:40-0400 Body height 187.96 cm DO Miguel Astorga Work Phone: [facility] 04-20-2022 12:40-0400 Body mass index (BMI) [Ratio] 30.9 kg/m2 DO Miguel Astorga Work Phone: [facility] 04-20-2022 12:40-0400 Body weight 109.4 kg DO Miguel Astorga Work Phone: [facility] Encounters Encounter Date Encounter Type Care Provider Facility Start: 10-25-2025 ambulatory Natali Zelaya ty:[facility] Start: 09-30-2025 ambulatory Natali Hernandezi ty:[id number] Start: 09-01-2025 End: 09-01-2025 Office outpatient new 30 minutes America Ambrocio MD Work Phone: [facility] Comment on above: Primary osteoarthrit is of left hip (Primary Dx); Status post total hip replacement, right Start: 09-01-2025 End: 09-01-2025 ambulatory AMERICA AMBROCIO [facility] Start: 08-16-2025 End: 08-16-2025 Orders Only Jennifer Gasca [facility] Comment on above: Left hip pain (Prima ry Dx) Start: 08-02-2025 ambulatory [facility] Start: 07-27-2025 End: 07-27-2025 ambulatory [facility] Start: 07-27-2025 End: 07-27-2025 Encounter for other preprocedural examination [facility] Start: 07-15-2025 ambulatory [facility] Start: 07-15-2025 ambulatory [facility] Start: 07-14-2025 End: 07-14-2025 Office outpatient new 20 minutes Kavya Germain DO Work Phone: [facility] Comment on above: Chronic epididymitis (Primary Dx) Start: 07-14-2025 End: 07-14-[facility] Start: 07-02-2025 End: 07-02-2025 Clinisync [...] H/O epididymitis Start: 06-23-2025 ambulatory LOYD ADDISON [facility] Start: 05-17-2025 ambulatory ROXANNE BRENNAN [facility] Start: 05-12-2025 End: 05-12-2025 Patient encounter procedure Sakina Carpenter MD Work Phone: [facility] Comment on above: Basal cell carcinoma (BCC) of right forearm (Primary Dx); Basal cell carcinoma of skin of left lower limb, including hip Start: 05-12-2025 End: 05-12-2025 ambulatory SAKINA A PETITTI Not Available Start: 04-30-2025 End: 04-30-2025 Bamboo flowsbest Carpenter MD Work Phone: [facility] Start: 04-30-2025 End: 04-30-2025 Bamboo flowsbest Carpenter MD Work Phone: [facility] Start: 04-30-2025 End: 04-30-2025 Patient encounter procedure Sakina Carpenter MD Work Phone: [facility] Comment on above: Basal cell carcinoma of skin of left lower limb, including hip (Primary Dx) Start: 04-30-2025 End: 04-30-2025 ambulatory SAKINA A PETITTI Not Available Start: 04-21-2025 End: 04-21-2025 ambulatory MIKE SHERWIN [facility] Start: 04-12-2025 End: 04-12-2025 Postop follow up visit related to original px Nneka Hernandez PROPULSION GENERATOR REPAIRER Work Phone: [facility] Comment on above: Status post arthrosc opy of left knee (Primary Dx) Start: 04-12-2025 End: 04-12-2025 ambulatory NNEKA HERNANDEZ Not Available Start: 04-12-2025 End: 04-12-2025 Bamboo flowsheet Nneka Hernandez PROPULSION GENERATOR REPAIRER Work Phone: [facility] Start: 04-12-2025 End: 04-12-2025 Bamboo flowsbest Hernandez PROPULSION GENERATOR REPAIRER Work Phone: [facility] Start: 04-12-2025 ambulatory ROXANNE AMIN [facility] Start: 04-05-2025 End: 04-05-2025 ambulatory Natali IRAHETA Facility:[facility] Start: 04-05-2025 End: 04-05-2025 Patient encounter procedure Natali IRAHETA [facility] Start: 04-03-2025 End: 04-03-2025 Clinisync Result [...] original px North Chapin MD Work Phone: [facility] Comment on above: Medicare annual well [...] [facility] DERM Start: 03-24-2025 End: 03-24-2025 Office outpatient visit 15 minutes Sakina Carpenter MD Work Phone: [facility] DER[facility] Comment on above: Seborrheic keratosis (Primary Dx); Actinic keratosis; Neoplasm of unspecified behavior of bone, soft tissue, and skin; Lentigines; History of malignant neoplasm of skin Start: 03-24-2025 End: 03-24-2025 ambulatory SAKINA CARPENTER Not Available Start: 2025 End: 2025 Bamboo flowsheet Nneka Hernandez PROPULSION GENERATOR REPAIRER Work Phone: [facility] Start: 2025 End: 2025 Bamboo flowsheet Nneka Hernandez PROPULSION GENERATOR REPAIRER Work Phone: [facility] Start: 2025 End: 2025 Postop follow up visit related to original px Nneka Hernandez PROPULSION GENERATOR REPAIRER Work Phone: [facility] Comment on above: Status post arthrosc opy of left knee (Primary Dx) Start: 2025 End: 2025 ambulatory NNEKA HERNANDEZ Not Available Start: 03-04-2025 ambulatory [facility] Start: 03-01-2025 End: 03-01-2025 ambulatory [facility] Facility:[facility] Start: 02-26-2025 End: 02-28-2025 Refill Nneka Hernandez PROPULSION GENERATOR REPAIRER Work Phone: [facility] Comment on above: Internal derangement of left knee (Primary Dx) Start: 02-03-2025 ambulatory [facility] Start: 02-02-2025 End: 02-02-2025 ambulatory BUD CUMMINS Not Available Start: 02-02-2025 End: 02-02-2025 Patient encounter procedure Bud SUBRAMANIAN Work Phone: [facility] Comment on above: Pre-op examination ( Primary Dx) Start: 02-02-2025 End: 02-02-2025 Preprocedural examination done Bud SUBRAMANIAN Work Phone: [facility] Work Phone: Start: 02-02-2025 End: 02-02-2025 Bamboo flowsheet Bud Cummins PA Work Phone: [facility] Start: 02-02-2025 End: 02-02-2025 Bamboo flowsheet Bud Cummins PA Work Phone: [facility] Start: 02-02-2025 End: 02-02-2025 ambulatory [place] Facility:[facility] Start: 02-02-2025 Encounter for other preprocedural examination ENRRIQUE WALDROP [facility] Start: 12-25-2024 End: 12-25-2024 Bambogregorio flowsheet Jr. Enrrique Waldrop DO Work Phone: [facility] Start: 12-25-2024 End: 12-25-[address] [address] JrYonatan Waldrop DO Work Phone: [facility] Start: 12-25-2024 End: 12-25-2024 Office outpatient visit 25 minutes Jr. Enrrique Waldrop DO Work Phone: [facility] Comment on above: Left knee pain, unsp ecified chronicity (Primary Dx); Internal derangement of left knee Start: 12-25-2024 End: 12-25-2024 ambulatory ENRRIQUE ZIMMERMAN Not Available Start: 12-18-2024 ambulatory [facility] Start: 12-11-2024 End: 12-14-2024 Telephone encounter Mary Lou Diane NP Work Phone: [facility] Comment on above: RX Start: 12-10-2024 End: 12-10-2024 Telephone encounter Mary Lou B Apling PROPULSION GENERATOR REPAIRER Work Phone: [facility] Comment on above: MRI Start: 12-05-2024 End: 12-07-2024 Rose Chapin MD Work Phone: [facility] Comment on above: Anxiety disorder, un specified type; Restless leg syndrome Start: 11-30-2024 End: 11-30-2024 Bamboo flowsheet Mary Lou Peterson Jeronimoing PROPULSION GENERATOR REPAIRER Work Phone: [facility] Start: 11-30-2024 End: 11-30-2024 Bamboo flowsheet Mary Lou Peterson Apling PROPULSION GENERATOR REPAIRER Work Phone: [facility] Start: 11-30-2024 End: 11-30-2024 Office outpatient visit 15 minutes Mary Lou Diane PROPULSION GENERATOR REPAIRER Work Phone: [facility] Comment on above: Left knee pain, unsp ecified chronicity (Primary Dx); Arthritis of left knee; Internal derangement of left knee Start: 11-30-2024 End: 11-30-2024 ambulatory MARY LOU Peterson APLING Not Available Start: 11-13-2024 ambulatory [facility] Start: 11-10-2024 End: 11-10-2024 ambulatory [facility] Start: 11-09-2024 End: 11-09-2024 Bamboo flowsheet Mary Lou Deckering PROPULSION GENERATOR REPAIRER Work Phone: [facility] Start: 11-09-2024 End: 11-09-2024 Bamboo flowsheet Mary Lou Peterson Apling PROPULSION GENERATOR REPAIRER Work Phone: [facility] Start: 11-09-2024 End: 11-09-2024 Office outpatient visit 25 minutes Mary Lou Deckering PROPULSION GENERATOR REPAIRER Work Phone: [facility] Comment on above: Left knee pain, unsp ecified chronicity (Primary Dx); Arthritis of left knee Start: 11-09-2024 End: 11-09-2024 ambulatory MARY LOU Peterson APLING Not Available Start: 11-05-2024 End: 11-05-2024 Bamboo flowsheet Naomi Pack COMMERCIAL ENERGY RATER [facility] Start: 11-05-2024 End: 11-05-2024 Bamboo flowsheet Naomi Pack COMMERCIAL ENERGY RATER [facility] Start: 11-05-2024 End: 11-05-2024 ambulatory Naomi Pack COMMERCIAL ENERGY RATER [facility] Comment on above: Left knee pain, unsp ecified chronicity (Primary Dx) Start: 11-03-2024 End: 11-04-2024 ambulatory Franco Escobedo COMMERCIAL ENERGY RATER [facility] Comment on above: Left knee pain, unsp ecified chronicity (Primary Dx) Start: 11-03-2024 End: 11-03-2024 Bamboo flowsheet Franco Escobedo COMMERCIAL ENERGY RATER [facility] Start: 11-03-2024 End: 11-03-2024 Bamboo flowsheet Franco Escobedo COMMERCIAL ENERGY RATER [facility] Start: 10-29-2024 End: 10-29-2024 Bamboo flowsheet Yenny Rowe PT [facility] Start: 10-29-2024 End: 10-29-2024 Bamboo flowsheet Yenny Rowe PT [facility] Start: 10-29-2024 End: 10-29-2024 ambulatory Yenny Rowe PT [facility] Comment on above: Left knee pain, unsp ecified chronicity (Primary Dx) Start: 10-28-2024 ambulatory [facility] Start: 10-27-2024 End: 10-27-2024 ambulatory Franco Escobedo COMMERCIAL ENERGY RATER [facility] Comment on above: Left knee pain, unsp ecified chronicity (Primary Dx) Start: 10-27-2024 End: 10-27-2024 Bamboo flowsheet Franco Escobedo COMMERCIAL ENERGY RATER [facility] Start: 10-27-2024 End: 10-27-2024 Bamboo flowsheet Franco Escobedo COMMERCIAL ENERGY RATER [facility] Start: 10-20-2024 End: 10-20-2024 ambulatory Yenny Rowe PT [facility] Comment on above: Left knee pain, unsp ecified chronicity (Primary Dx) Start: 10-20-2024 End: 10-20-2024 Bamboo flowsheet Yenny Rowe PT [facility] Start: 10-20-2024 End: 10-20-2024 Bamboo flowsheet Yenny Rowe PT [facility] Start: 10-14-2024 ambulatory ROXANNE [facility] Start: 10-12-2024 End: 10-12-2024 ambulatory Natali IRAHETA Facility:[facility] Start: 10-12-2024 End: 10-12-2024 Patient encounter procedure Natali Gonzalez IRAHETA [facility] Start: 10-07-2024 End: 10-07-2024 ambulatory [facility] Start: 10-07-2024 End: 10-07-2024 Office outpatient visit [facility] Work Phone: [facility] Comment on above: Left knee pain, unsp ecified chronicity (Primary Dx) Start: 10-07-2024 End: 10-07-2024 ambulatory [facility] Start: 09-07-2024 ambulatory [facility] Start: 08-27-[address] [facility] Start: 08-25-[address] [facility] Start: 08-13-2024 End: 08-13-2024 Bamboo flowsbest Carpenter [...] encounter procedure Sakina Carpenter MD Work Phone: [facility] Start: 06-24-2023 End: 06-24-2023 Patient encounter procedure Natali IRAHETA [facility] Start: 04-09-2023 End: 04-09-2023 ambulatory MATTHIAS Tam Facility:[facility] Start: 03-18-2023 End: 03-18-2023 ambulatory Sakina Carpenter Facility:[facility] Start: 03-18-2023 End: 03-18-2023 ambulatory MD Sakina Carpenter Work Phone: [facility] Work Phone: Start: 03-18-2023 End: 03-18-2023 Departed Referred MD Sakina Carpenter Work Phone: [facility] [place] Work Phone: Start: 03-12-2023 End: 03-13-2023 ambulatory [...] Encounter for preprocedural cardiovascular examination BARBIE CANSECO [facility] Start: 09-26-2022 Encounter for preprocedural laboratory examination [facility] Start: 09-24-2022 ambulatory BARBIE CANSECO Faci [...] encounter procedure Natali IRAHETA [facility] Start: 04-27-2022 End: 04-28-[address] NATALI IRAHETA . Facility:[facility] Start: 04-20-2022 End: 04-20-2022 ambulatory Miguel Astorga Facility:[facility] Start: 04-20-2022 End: 04-20-2022 Admission to same day surgery center DO Miguel Astorga Work Phone: [facility] [place] Start: 04-19-2022 End: 04-19-2022 ambulatory [place] Facility:[facility] Start: 04-19-2022 End: 04-19-2022 Patient encounter procedure DO Miguel Astorga Work Phone: [facility]Surgical Testing Procedures Date Procedure Procedure [...] Phone: Start: 03-01-2025 Arthroscopy of knee Cleo cordova IRAHETA Start: 11-09-2024 Arthrocentesis aspir &/inj major jt/bursa w/o us Mary Lou Diane PROPULSION GENERATOR REPAIRER Work Phone: Start: 11-09-2024 Radiologic exam both knees standing anteropost Mary Lou Diane PROPULSION GENERATOR REPAIRER Work Phone: Start: 08-13-2024 SKIN / NAIL BIOPSY Get Carpenter MD Work Phone: Start: 08-13-2024 CRYOTHERAPY SKIN LESION Sakina Carpenter MD Work Phone: Start: 04-09-2023 Colonoscopy Sakina watson MD Work Phone: Start: 04-27-2022 PSA screening MODSETO ROCHE Comment on above: Performed By: #### P SAD ####[place] [address]DrYonatan Kasper Start: 04-20-2022 OR Cheek Lesion Exc W/Flap Recon (Not Applicable) DO Miguel Astorga Work Phone: Colonoscopy Natalitasha IRAHETA ft (qualifier value) Natalitasha IRAHETA Prosthetic arthropla sty of the hip Natali IRAHETA Removal of Basal Agustina l on Nose Natali IRAHETA Repair of inguinal hernia Moris IRAHETA Titanium Plate Left Arm Yfn IRAHETA Tonsillectomy and adenoidectomy Natali IRAHETA Plan of Treatment Date Care Activity Detail Author Start: 04-09-2033 Screening for malignant neoplasm of colon [facility] Start: 12-06-2032 DTaP,Tdap and Td Vaccines (2 - Tdap) DTaP,Tdap and Td Vaccines (2 - Tdap) [facility] Start: 09-01-2026 Adult BMI Screening Adult BMI Screening [facility] Start: 07-14-2026 Adult BMI Screening Adult BMI Screening [facility] Start: 07-14-2026 Tobacco Screening Tobacco Screening [facility] Start: 03-29-2026 Medicare Annual Wellness (AWV) Medicare Annual Wellness (AWV) [facility] Start: 12-06-2025 End: 12-06-2025 Patient encounter procedure 12/06/2025 9:00 AM EST Office Visit [facility] [address] [place] [address] America Ambrocio MD [address] [place] [address], [address] [place] [address] [facility] Start: 10-07-2025 Adult BMI Screening Adult BMI Screening [facility] Start: 10-07-2025 Tobacco Screening Tobacco Screening [facility] Start: 09-29-2025 End: 09-29-2025 Patient encounter procedure 09/29/2025 1:45 PM EST Office Visit [facility] [address] [place] [phone] [place] MD [address] [place] [phone] [facility] Start: 09-28-2025 End: 09-28-2025 Patient encounter procedure [facility] Start: 09-23-2025 End: 09-23-2025 Patient encounter procedure 09/23/2025 2:45 PM EDT Procedure visit [facility] [address] [place] [phone] Tavares Eng PA [address] [place] [address] [facility] Start: 09-01-2025 End: 09-01-2025 Patient encounter procedure 09/01/2025 10:00 AM EDT Office Visit [facility] [address] [place] [phone] America Ambrocio MD [address], [address] [place] [address] [facility] Start: 08-16-2025 End: 08-16-2026 XR Pelvis and Hip - left 2 Views X-ray hip left 2-3 views with or without pelvis Imaging Routine Left hip pain Expected: 08/16/2025, Expires: 08/16/2026 [facility] Work Phone: Comment on above: Expected: 08/16/2025, Expires: Start: 07-26-2025 COVID-19 Vaccine ( season) COVID-19 Vaccine ( season) [facility] Start: 07-26-2025 Influenza vaccination [facility] Start: 06-30-2025 End: 06-30-2026 US Scrotum and testicle US scrotum Imaging Routine Inguinal pain, right H/O epididymitis Expected: 06/30/2025, Expires: 06/30/2026 [facility] Work Phone: Comment on above: Expected: 06/30/2025, Expires: Start: 05-12-2025 End: 05-12-2025 Patient encounter procedure 05/12/2025 1:20 PM EDT Procedure Visit [facility] [address] [place] [phone] Sakina Carpenter MD [address] [place] [address] [facility] Start: 04-30-2025 End: 04-30-2025 Patient encounter procedure 04/30/2025 10:20 AM EDT Office Visit [facility] [address] [place] [phone] Sakina Carpenter MD [address] [place] [address] Arrived [facility] Comment on above: Arrived Start: 04-28-2025 End: 04-28-2025 Patient encounter procedure 04/28/2025 4:00 PM EDT Office Visit [facility] [address] [place] [phone] Sakina Carpenter MD [address] [place] [address] [facility] Start: 04-12-2025 End: 04-12-2025 Patient encounter procedure [facility] Comment on above: Arrived Start: 03-29-2025 End: 03-29-2026 Basic metabolic 1998 panel - Serum or Plasma Basic metabolic panel Lab Routine Encounter for long-term (current) use of medications Expected: 03/29/2025 (Approximate), Expires: 03/29/2026 [facility] Comment on above: Expected: 03/29/2025 (Approximate), Expi res: 03/29/2026 Start: 03-29-2025 End: 03-29-2026 Hemoglobin A1c/Hemoglobin.total in Blood Hemoglobin A1c Lab Routine Prediabetes Expected: 03/29/2025 (Approximate), Expires: 03/29/2026 [facility] Work Phone: Comment on above: Expected: 03/29/2025 (Approximate), Expi res: 03/29/2026 Start: 03-29-2025 End: 03-29-2026 Lipid 1996 panel - Serum or Plasma Lipid panel Lab Routine Dyslipidemia ([facility]) Expected: 03/29/2025 (Approximate), Expires: 03/29/2026 [facility] [...] MD [address] [place], [place] [phone] Arrived [facility] Comment on above: Arrived Start: 03-23-2025 End: 03-23-2025 Patient encounter procedure [facility] Start: 03-22-2025 End: 03-22-2025 Patient encounter procedure 03/22/2025 11:30 AM EDT Office Visit [facility] [address] [place] [address] [place] MD [address] [place] [address] [facility] Start: 03-17-2025 Medicare Annual Wellness (AWV) Medicare Annual Wellness (AWV) [facility] Start: 2025 End: 2025 Patient encounter procedure [facility] Comment on above: Arrived Start: 02-22-2025 End: 02-22-2025 Patient encounter procedure 02/22/2025 1:35 PM EDT Office Visit [facility] [address] [place] [phone] Sakina Carpenter MD [address] [place] [address] [facility] Start: 02-11-2025 End: 02-11-2025 Patient encounter procedure 02/11/2025 1:05 PM EDT Office Visit [facility] [address] [place] [address] Sakina Carpenter MD [address] [place] [address] [facility] Start: 02-02-2025 End: 02-02-2025 Patient encounter procedure 02/02/2025 3:00 PM EDT Office Visit [facility] [address] [place] [phone] Bud Cummins PA [address] [place] [address] [facility] Start: 12-25-2024 End: 12-25-2024 Patient encounter procedure [facility] Comment on above: Arrived Start: 12-09-2024 End: 12-09-2024 Patient encounter procedure 12/09/2024 1:30 PM EST Office Visit [facility] [address] [place] [phone] Cecilia Anderson, PAGeovannaC [address] [place], [place] [phone] [facility] Start: 11-30-2024 End: 11-30-2025 MR Knee - left WO contrast MR knee left wo IV contrast Imaging Routine Internal derangement of left knee Expected: 11/30/2024 (Approximate), Expires: 11/30/2025 [facility] Work Phone: Comment on above: Expected: 11/30/2024 (Approximate), Expi res: 11/30/2025 Start: 11-30-2024 End: 11-30-2024 Patient encounter procedure [facility] Comment on above: Left knee pain, unspecified chronicity ( Primary Dx); Arthritis of left knee Start: 11-16-2024 End: 11-16-2024 ambulatory 11/16/2024 2:00 PM EST Treatment [facility] [address] [facility] [address] [place] [address] Yenny Rowe, PT [facility] Start: 11-12-2024 End: 11-12-2024 ambulatory 11/12/2024 5:00 PM EST Treatment [facility] [address] [facility] [address] [place] [address] KrystleNaomi shen, COMMERCIAL ENERGY RATER [facility] Start: 11-09-2024 End: 11-09-2024 ambulatory 11/09/2024 4:00 PM EST Treatment [facility] [address] [facility] [address] [place] [address] Yenny Rowe, PT [facility] Start: [...] [address] [place] [address] Sakina Carpenter MD [address] [place] [address] Arrived [facility] Comment on above: Arrived Start: 07-26-2024 COVID-19 Vaccine (4 - 2024-25 season) COVID-19 Vaccine ( season) [facility] Start: 07-26-2024 COVID-19 Vaccine ( season) COVID-19 Vaccine ( season) [facility] Start: 07-26-2024 Influenza vaccination Influenza Vaccine (#1) [facility] Start: 03-18-2023 Superficial Wound Culture Superficial Wound Culture [facility] Start: 2017 Fall Risk Screening Fall Risk Screening [facility] Start: 1970 Adult BMI Follow Up Plan Adult BMI Follow Up Plan [facility] Start: 1964 Depression Screening Depression Screening [facility] Start: 1952 Medicare Annual Wellness (AWV) Medicare Annual Wellness (AWV) [facility] Start: 1952 Screening for malignant neoplasm of colon [facility] Dermatopathology exam Dermatopat hology exam Pathology and Cytology Timed Neoplasm of unspecified behavior of bone, soft tissue, and skin Release Upon Ordering for 1 Occurrences starting 08/13/2024 [facility] [employer] Work Phone: Comment on above: Release Upon Ordering for 1 Occurrences starting 08/13/2024 Dermatopathology exam Dermatopat hology exam Pathology and Cytology Timed Neoplasm of unspecified behavior of bone, soft tissue, and skin Release Upon Ordering for 1 Occurrences starting 03/24/2025 [facility] Work Phone: Comment on above: Release Upon Ordering for 1 Occurrences starting 03/24/2025 Dermatopathology exam Dermatopat hology exam Pathology and Cytology Timed Basal cell carcinoma of skin of left lower limb, including hip Release Upon Ordering for 1 Occurrences starting 04/30/2025 [facility] [employer] Work Phone: Comment on above: Release Upon Ordering for 1 Occurrences starting 04/30/2025 SARS-CoV-2 (COVID-19 ) N gene [Presence] in Respiratory specimen by DAISY with probe detection [facility] Work Phone: End: 10-07-2025 XR Knee - left 3 Views X-ray knee left 3 views Imaging Routine Left knee pain, unspecified chronicity 1 Occurrences starting 10/07/2024 until 10/07/2025 [facility] Work Phone: Comment on above: 1 Occurrences starting 10/07/2024 until 10/07/2025 XR Knee - left 3 Views X-ray kne e left 3 views Imaging Routine Left knee pain, unspecified chronicity 10/07/2024 2:40 PM EST [facility] Immunizations Immunization Date Immunization Notes Care Provider [facility] 08-09-2024 influenza virus vacc ine, unspecified formulation Natali IRAHETA [facility] 08-22-2023 influenza virus vacc ine, unspecified formulation Sakina Carpenter MD Work Phone: [facility] 09-02-2022 influenza virus vacc ine, unspecified formulation Natali IRAHETA [facility] 10-05-2021 SARS-CoV-2 (COVID-19 ) mRNA BNT-162b2 vax Natali IRAHETA [facility] 08-14-2021 influenza virus vacc ine, unspecified formulation Natali IRAHETA [facility] 08-14-2021 pneumococcal polysaccharide vaccine, 23 valent Natali IRAHETA [facility] 03-22-2021 SARS-CoV-2 (COVID-19 ) mRNA BNT-162b2 vax Natali IRAHETA [facility] Comment on above: Result Comment: erro r 03-22-2021 SARS-CoV-2 (COVID-19 ) mRNA-1273 vaccine Natali IRAHETA [facility] 03-01-2021 SARS-CoV-2 (COVID-19 ) mRNA BNT-162b2 vax Natali IRAHETA [facility] 02-23-2021 SARS-CoV-2 (COVID-19 ) mRNA BNT-162b2 vax [employer] [facility] Comment on above: Result Comment: erro r 08-05-2020 influenza virus vacc ine, unspecified formulation [employer] [facility] 08-05-2020 pneumococcal conjuga te vaccine, 13 valent [employer] [facility] 08-31-2019 influenza virus vacc ine, unspecified formulation [employer] [facility] 07-08-2018 influenza virus vacc ine, unspecified formulation [employer] [facility] 07-08-2018 zoster vaccine recombinant [employer] [facility] 03-25-2018 zoster vaccine recombinant [employer] [facility] 08-08-2017 influenza virus vacc ine, unspecified formulation [employer] [facility] 07-26-2017 influenza virus vacc ine, unspecified formulation [employer] [facility] 07-19-2016 influenza virus vacc ine, unspecified formulation [employer] [facility] 09-03-2015 influenza virus vacc ine, unspecified formulation [employer] [facility] Payers Date Payer Category Payer Medicaid [employer] MEDICARE A DVANTAGE [id number] 2022 Medicare AETNA MEDICARE A DVANTAGE AETNA MEDICARE REPLACEMENT [id number] 2022-Present [id number] [place] [phone] [id number] 2022 Self-pay [id number] 2021 Medicare HMO [employer] MEDICARE [id number] 2019 Private Health Insurance [id number] 2017 Private Health Insurance [id number] 2015 Unknown [id number] 1959 Private Health Insurance [id number] 1952 Unknown [id number]. 593 1952 Unknown [id number] [id number]. 593 1952 Unknown [id number] [id number]. 593 1952 Unknown [id number] [id number]. 593 1952 Unknown [id number] [id number]. 593 1952 Unknown [id number] [id number]. 593 1952 Unknown [id number] [id number]. 593 1952 Unknown [id number] [id number]. 593 1952 Unknown [id number] [id number]. 593 1950 Unknown [id number] 2.16.840.1.915093.3.579.2. 593 1950 Unknown [id number] 2.16.840.1.441245.3.579.2. 593 1950 Unknown [id number] 2.16.840.1.778298.3.579.2. 593 1950 Unknown [id number] 2.16.840.1.982495.3.579.2. 593 1950 Unknown [id number] 2.16.840.1.853874.3.579.2. 593 1950 Unknown [id number] 2.16.840.1.413673.3.579.2. 593 1950 Unknown [id number] 2.16.840.1.859066.3.579.2. 1286 1950 Unknown [id number] 2.16.840.1.994988.3.579.2. 1286 1952 Unknown [id number] 2.16.840.1.383883.3.579.2. 718 1952 Unknown [id number] 2.16.840.1.238238.3.579.2. 718 1952 Unknown [id number] 2.16.840.1.479190.3.579.2. 1259 1952 Unknown [id number] 2.16.840.1.618215.3.579.2. 125 1952 Unknown [id number] 2.16.840.1.533312.3.579.2. 125 1952 Unknown [id number] 2.16.840.1.952529.3.579.2. 1259 1952 Unknown [id number] 2.16.840.1.473574.3.579.2. 125 1952 Unknown [id number] 2.16.840.1.966481.3.579.2. 1259 1952 Unknown [id number] 2.16.840.1.982874.3.579.2. 125 1952 Unknown [id number] 2.16.840.1.325240.3.579.2. 1259 1952 Unknown [id number] 2.16.840.1.634116.3.579.2. 125 1952 Unknown [id number] 2.16.840.1.141523.3.579.2. 1259 1952 Unknown [id number] 2.16.840.1.325469.3.579.2. 125 1952 Unknown [id number] 2.16.840.1.255224.3.579.2. 1259 1952 Unknown [id number] 2.16.840.1.050046.3.579.2. 125 1952 Unknown [id number] 2.16.840.1.385142.3.579.2. 125 1952 Unknown [id number] 2.16.840.1.858316.3.579.2. 125 1952 Unknown [id number] 2.16.840.1.889674.3.579.2. 125 1952 Unknown [id number] 2.16.840.1.103124.3.579.2. 1258 1952 Unknown [id number] 2.16.840.1.066631.3.579.2. 1258 1952 Unknown [id number] 2.16.840.1.991781.3.579.2. 1286 1952 Unknown [id number] 2.16.840.1.936842.3.579.2. 1286 1952 Unknown [id number] 2.16.840.1.164620.3.579.2. 727 1952 Unknown [id number] 2.16.840.1.168696.3.579.2. 727 1952 Unknown [id number] 2.16.840.1.909152.3.579.2. 72 1952 Unknown [id number] 2.16.840.1.178619.3.579.2. 1286 1952 Unknown [id number] 2.16.840.1.660787.3.579.2. 1286 Unknown [id number] Unknown [id number] 2.16.840.1.489705.3.579.2. 531 Unknown [id number] 2.16.840.1.748975.3.579.2. 531 Unknown [id number] 2.16.840.1.214809.3.579.2. 531 Social History Date Type Detail Facility Start: 05-07-2022 End: 01-29-2023 Tobacco smoking status Never smoked tobacco (finding) [facility] Work Phone: Start: 01-05-2021 End: 02-03-2024 Sex Assigned At Male [facility] Start: 1950 Sex Assigned At Male [facility] Tobacco smoking status Never [facility] Start: 01-29-2023 End: 08-12-2023 Tobacco use and exposure Smokeless tobacco non-user [facility] Start: 08-13-2024 End: 06-30-2025 Alcoholic beverage intake Ex-drinker (finding) [facility] Start: 01-05-2021 End: 02-03-2024 History of Social function [facility] Do you belong to any clubs or organizations such as episcopal groups, unions, fraternal or athletic groups, or [...] Alcohol Comment caffeine 1-2 cups per day [facility] Start: 1950 Sex assigned at Not on file [facility] Start: 10-07-2024 End: 09-01-2025 Alcoholic beverage intake Current drinker of alcohol (finding) [facility] Start: 06-30-2015 End: 06-05-2019 Sex Male (finding) [facility] Start: 10-11-2020 Gender identity Identifies as male gender (finding) [facility] Start: 10-11-2020 Sexual orientation Heterosexual (finding) [facility] Sexual Orientation [facility] Medical Equipment Procedure Code Equipment Code Equipment Origin al Text Equipment Identifier Dates Mesh Brd Perfix Plug Med Rpl [id number] Rpl [id number] - [id number] - [id number] Start: 09-23-2018 Mesh Brd Preshap e Hawkins 3x5 Rpl [id number] - [id number] - [id number]_[facility] Start: 09-23-2018 Comment on above: Description: 13.7 cm x 5.9 cm cut to fit defect Linr Actb 36mm F Ntrl E1 Clr - [id number]_[facility] Start: 07-10-2017 Hd Fem 36mm Opt G7 Blx D Hip Rpl [id number] - [id number] Start: 07-10-2017 Slv Fem Opt +3mm Tpr Hip Blx D Rpl 650-1067 - [id number] Start: 07-10-2017 Stm Fem 125mm 13 3d 20 Hi Os - [id number] Start: 07-10-2017 Shell [id number]_[facility] Start: 07-10-2017 Goals Date Patient Goal Desired Activity /State Personal health goal Comment on above: Formatting of this n ote might be different from the original. Evaluation of progress towards goal: Maximize work with PT at discharge to strengthen R hip Functional Status Date Assessment Result Facility 04-05-2025 Functional Status N/A [facility] 03-29-2025 Patient Health Quest ionnaire 2 item (PHQ-2) [Reported] [facility] 10-12-2024 Functional Status N/A [facility] 06-24-2023 Functional Status N/A [facility] 05-07-2022 Functional Status N/A [facility] Clinical Notes 05-07-2022 to 09-01-2025 America Ambrocio MD - 09/01/2025 10:00 AM Sebas Germain DO - 07/14/2025 10:15 AM Sharon Chapin MD - 06/30/2025 8:37 AM Sharon Chapin MD - 06/30/2025 7:45 AM EDT Note Date & Type Note Facility 09-01-2025 History of Present illness Narrative Subjective Patient ID: Oscar Escoto is a 75 y.o. male. Chief Complaint: LT hip pain HPI The patient presents new to the clinic. reports that the pain has been ongoing for about a year states that the pain is located in LT hip. notes pain with stairs, walking and all daily activities. His sleeping is affected by his pain. Injury history- none Past treatment has included rest, restricted activity other complaints at this time- Patient has A-fib. He is to have an ablation near the end of the year. RT THR 8 years ago Social History Occupational History Not on file Tobacco Use Smoking status: Never Smokeless tobacco: Never Vaping Use Vaping status: Never Used Substance and Sexual Activity Alcohol use: Yes Comment: One drink per week Drug use: No Sexual activity: Defer Past Medical History: Diagnosis Date Afib ([facility]) Back pain lumbar BPH (benign prostatic hyperplasia) Cancer ([facility]) multiple basal cell Chronic pain disorder Hip pain, chronic, left Inguinal hernia right Joint pain Low back pain Osteoarthritis Restless leg syndrome Sleep apnea instructed to bring CPAP to hospital Umbilical hernia Varicella 8 years old Visual impairment glasses There were no vitals filed for this visit. Review of Systems Constitutional: Positive for activity change. Negative for fever. HENT: Negative for dental problem and sore throat. Respiratory: Negative for cough, chest tightness, shortness of breath and wheezing. Cardiovascular: Negative for chest pain, palpitations and leg swelling. Gastrointestinal: Negative for abdominal pain, constipation, diarrhea, nausea and vomiting. Genitourinary: Negative for difficulty urinating, frequency, hematuria and urgency. Skin: Negative for rash. Allergic/Immunologic: Negative for environmental allergies and food allergies. Neurological: Negative for dizziness, seizures, syncope, speech difficulty, light-headedness and headaches. Hematological: Does not bruise/bleed easily. Psychiatric/Behavioral: Negative for behavioral problems and sleep disturbance. The patient is not nervous/anxious. Objective Right Hip Exam Tenderness The patient is experiencing no tenderness. Range of Motion Abduction: 40 Extension: 0 Flexion: 90 External rotation: 40 Internal rotation: 20 Muscle Strength The patient has normal right hip strength. Left Hip Exam Tenderness The patient is experiencing no tenderness. Range of Motion Abduction: 50 Extension: 0 Flexion: 80 External rotation: 50 Left hip internal rotation: -10. Muscle Strength The patient has normal left hip strength. Physical Exam Vitals and nursing note reviewed. Constitutional: Appearance: He is well-developed. HENT: Head: Normocephalic and atraumatic. Right Ear: External ear normal. Left Ear: External ear normal. Nose: Nose normal. Eyes: Conjunctiva/sclera: Conjunctivae normal. Cardiovascular: Rate and Rhythm: Normal rate and regular rhythm. Pulses: Intact distal pulses. Pulmonary: Effort: Pulmonary effort is normal. Musculoskeletal: Cervical back: Normal range of motion and neck supple. Skin: General: Skin is warm and dry. Neurological: Mental Status: He is alert and oriented to person, place, and time. Psychiatric: Behavior: Behavior normal. Thought Content: Thought content normal. Judgment: Judgment normal. Assessment 1. Primary osteoarthritis of left hip 2. Status post total hip replacement, right Plan Primary problem addressed: Osteoarthritis right hip with mild to moderate exacerbation or progression of disease Secondary problems addressed as complicating factors to treatment of primary problem: heart disease. Pt has A-fib. Data reviewed: previous X-rays Tests ordered: X-rays show moderate to severe arthritis of the left hip with near complete loss of the joint space superior laterally marginal osteophytes. Right total hip is well aligned no lucencies wear or lysis Discussion of treatment options(conservative management of disease vs. surgery): minor surgery(joint aspiration/injection) Level of Morbidity & Mortality with treatment choice: Moderate-minor surgery(joint aspiration/injection) with risk discussion RTO for injection with [facility]. RTO [address] Cristóbal Escobar Statement: Scribed for and in the presence of America Ambrocio MD by Milagros Rondon. Provider Statement: I, America Ambrocio MD personally performed the services described in the documentation, as scribed by Milagros Rondon in my presence, and it is both accurate and complete. nehemias Triplett 09/01/25 10:10 AM America Ambrocio MD 09/01/25 [id number] documented in this encounter [facility] [employer] 07-27-2025 Note [facility] Consult Note Reason [...] no evidence of A. Fib. Prior HPI: Osacr Escoto is a 75 y.o. year old with past medical history of atrial fibrillation that was diagnosed few years ago here he was admitted to [facility] with A. fib with rapid [...] 48 hours from 12/24/2021 to 12/10/2021 at [facility] was reviewed by me and shows PVC burden of less than 1% and PVC count of 6%. Occasional nonsustained atrial tachycardia few beats seen but no atrial fibrillation noted. No ventricular tachycardia noted EKG 10/17/2021 shows sinus rhythm with normal intervals Echocardiogram done at [place] on 09/06/2021 shows ejection fraction of 60% [...] test - Arrhyth (more content not included)... [facility] 07-14-2025 History of Present illness Narrative Images from the original note were not included. [facility] [address] [id number] CONSULT NOTE CHIEF COMPLAINT Chief Complaint Patient presents with Hernia RECURRENT RIGHT SIDE INGUINAL HERNIA, REFERRED BY DR TAVARES Moore Agapito Escoto is a 75 y.o. male who [...] not have not an ultrasound performed at [facility] on 07/02/2025 which demonstrated no evidence of testicular mass torsion orchitis or epididymitis. There were bilateral varicoceles and small bilateral hydroceles. 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 He also plays pickleball 3 times a week in [employer] He wears an athletic supporter which helps [...] right foot, 09/2022 left foot FRACTURE SURGERY 2013 broken lft wrist GANGLION CYST EXCISION from neck INGUINAL HERNIA REPAIR INJECTION BURSA LARGE JOINT: left hip Left 02/08/2023 Performed by Umair Decker MD at [facility] INJECTION BURSA LARGE JOINT: left ischial bursa Left 08/16/2023 Performed by Umair Decker MD at [facility] INJECTION LARGE JOINT BURSA Right 04/12/2017 Performed by Umair Decker MD at [facility] INJECTION MEDIAL BRANCH NERVE BLOCK: right [id number] Right 08/12/2020 Performed by Umair Decker MD at [facility] INSERTION LOOP RECORDER 01/24/2023 Dr Amin at [facility] JOINT REPLACEMENT right hip ORTHOPEDIC SURGERY Left 2012 wrist fixation RADIO FREQUENCY ABLATION: right [id number] Right 09/23/2020 Performed by Umair Decker MD at [facility] REPAIR HERNIA INGUINAL WITH MESH Right 09/23/2018 Performed by Kavya Germain DO at [facility] REPAIR HERNIA UMBILICAL WITH MESH N/A 09/23/2018 Performed by Kavya Germain DO at [facility] REPLACEMENT TOTAL JOINT ANTERIOR SUPINE INTERMUSCULAR HIP Right 07/10/2017 Performed by America Ambrocio MD at [facility] SKIN BIOPSY several, see warp tier yearly TONSILLECTOMY UMBILICAL HERNIA REPAIR 2017 brought [...] Resource Strain: Low Risk (02/03/2024) Received from [facility] Overall Financial Resource Strain (CARDIA) Difficulty of Paying Living Expenses: Not hard at all Food Insecurity: No Food Insecurity (10/07/2024) Hunger Screening Food Insecurity - Worry: Never True Food Insecurity - Inability: Never True Transportation Needs: No Transportation Needs (02/03/2024) Received from [facility] PRAPARE - Transportation Lack of Transportation (Medical): No Lack of Transportation (Non-Medical): No Physical Activity: Sufficiently Active (02/03/2024) Received from [facility] Exercise Vital Sign Days of Exercise per Week: 3 days Minutes of Exercise per Session: 60 min Stress: No Stress Concern Present (02/03/2024) Received from [facility] [place] [place] [facility] [employer] - Occupational Stress Questionnaire Feeling of Stress : Not at all Social Connections: Moderately Integrated (02/03/2024) Received from [facility] Social Connection and Isolation Panel [NHANES] Frequency of Communication with Friends and Family: Once a week Frequency of Social Gatherings with Friends and Family: Once a week Attends Religion Services: More than 4 times per year Active Member of Clubs or Organizations: Yes Attends Club or Organization Meetings: More than 4 times per year Marital Status: Interpersonal Safety: Unknown (01/16/2024) Received from [facility] [place] Safety & Environment Fear of Current or Ex-Partner: Not on file Emotionally Abused: Not on file Physically Abused: Not on file Sexually Abused: Not on file Physically or Sexually Abused: Not on file Housing Instability: Low Risk (02/03/2024) Received from [facility] Housing Stability Vital Sign Unable to [...] Referring and communicating with other health healthcare consulting manager - Kavya Germain DO 07/14/25 10:35 AM This note was created with the assistance of a speech recognition program. While intending to generate a timely document that accurately reflects the content of the visit, no guarantee can be provided that every grammatical or spelling mistake has been or will be identified or corrected. Thank you for your understanding. [facility] History of Present illness Narrative Associated [...] History of right inguinal hernia repair in 2018 and concerned of recurrent hernia. No bulging [...] Orders US scrotum documented in this encounter [facility] 05-12-2025 History of Present illness Narrative [...] limited to risks of scarring, darker or ems driver pigmentary changes, recurrence, infection, and incomplete removal [...] lidocaine used: 2.0 cc Previous accession number: [id number] Patient instructed to notify office of any [...] limited to risks of scarring, darker or ems driver pigmentary changes, recurrence, infection, and incomplete removal [...] lidocaine used: 2.0 cc Previous accession number: [id number] Patient instructed to notify office of any signs of recurrence prior to next scheduled visit. Next Visit: as scheduled documented in this encounter [facility] 04-30-2025 History of Present illness Narrative [...] BCC Check Margins: Yes Previous accession number: [id number] Next Visit: Has follow up scheduled documented in this encounter [facility] 04-21-2025 Note SUBJECTIVE Reason for Visit: Oscar Escoto is a 75 y.o. year old male patient being seen for 6-month follow-up visit. HPI: Oscar Escoto is a 75 y.o. year old male with significant medical history of atrial fibrillation that was diagnosed few years ago here he was admitted to [facility] with A. fib with rapid [...] Inspection: no join (more content not included)... [facility] 04-12-2025 History of Present illness Narrative Images [...] requiring urgent evaluation. documented in this encounter [facility] 04-05-2025 Hospital Discharge instructions Patient Education [...] including vitamins, herbs, eye drops, creams, and cpch-kht-wqpitij medicines. Any problems you or family members [...] provider tells you to take them. Taking ucck-mqr-kdoboyi medicines, vitamins, herbs, and supplements. General instructions [...] provider. Document Revised: 05/11/2022 Document Reviewed: 05/11/2022 [employer] Patient Education 2023 [employer]. Follow Up Care 10/12/2024 16:19:37 With:ESEQUIEL RUSSELL, Natali Gonzalez, URL Address: [facility] [address] [place] [address]- [phone] When: Unknown Comments:sched orchiectomy in September [facility] 04-05-2025 Note Patient Education Oncology Orchiectomy An [...] including vitamins, herbs, eye drops, creams, and gqwn-yxg-ehtueht medicines. ??? Any problems you or family [...] tells you to take them. ??? Taking rfer-ziq-bfrigcg medicines, vitamins, herbs, and supplements. General instructions [...] You may have (more content not included)... [facility] 03-29-2025 History of Present illness Narrative Associated [...] wasn't as active. Plans on returning to [facility] several days a week. Resumed walking [...] disorder, unspecified type documented in this encounter [facility] 03-24-2025 History of Present illness Narrative [...] limited to risks of scarring, darker or ems driver pigmentary changes, recurrence, incomplete removal and infection. [...] lesion: 2.0 x 1.7 cm Right Forearm Jovista scaly plaque Lesion biopsy Type of biopsy: [...] lesion: 2.3 x 2.0 cm Left sanders Jovista papule Lesion biopsy Type of biopsy: tangential [...] 6 months-skin check documented in this encounter [facility] 2025 History of Present illness Narrative [...] develop for requiring urgent evaluation. 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 SURGERY Clinical Discharge Summary PERSON INFORMATION Name OSCAR ESCOTO Age 74 Years 1950 Sex MALE Language Marshallese PCP [place] Marital Status Phone Med Service Ambulatory Surgery Acct# Arrival 03/01/2025 08:45:44 Visit Reason SURGERY - LEFT KNEE ARTHROSOCPY - LATERAL MENISCUS TEAR Acuity LOS 066 02:01 Address: [address] [place] [address] Comment: PROVIDER INFORMATION VITALS INFORMATION Vital Sign [...] every day. Comme (more content not included)... [facility] 02-26-2025 Telephone encounter Note Post op pain rx. PDMP reviewed [facility] 02-26-2025 Miscellaneous Notes Post op pain rx. PDMP reviewed documented in this encounter [facility] 02-02-2025 History of Present illness Narrative Images from the original note were not included. GENERAL HISTORY AND PHYSICAL: NAME: Oscar Escoto : 1950 HISTORY OF PRESENT ILLNESS: Oscar Escoto is an 74 y.o. @ male. Here for surgery instructions H&P LT KNEE SCOPE 03/01/25 @ [facility] PAST MEDICAL HISTORY: Past Medical History: [...] surgery HEEL SPUR EXCISION Right HERNIA REPAIR 2018 Dr. Germain MOUTH SURGERY front tooth implant [...] surgery scheduled. KNEE SCOPE 03/01/25 @ [facility] 02/02/25 @ [address] [place] [address] 02/02/25 @ [facility] Follow up for Post-Op 03/15/25 @ [address] [place] [address]. documented in this encounter [facility] 12-25-2024 History of Present illness Narrative Images from the original note were not included. HISTORY OF PRESENT ILLNESS: EST PT Oscar Escoto is an 74 y.o. @ male. (EST PT-PREVIOUSLY SAW MARY LOU DIANE ON 11/30/24) RECHECK (L) KNEE PAIN; HERE FOR MRI RESULTS DONE ON 12/18/24 AT [facility]. XRAY B/L AP WB KNEES 11/09/24 IN [facility] XRAY (L) KNEE 10/07/24 [facility] MRI (L) KNEE 12/18/24 [facility] DEPO MEDROL INJ 11/09/24 - 50% IMPROVEMENT P.T (#5 VISITS 10/20/24- 11/05/24[facility] 10/07/24 [facility] NO PRESNISONE/MDP PAIN [...] requiring urgent evaluation. documented in this encounter [facility] 12-11-2024 Telephone encounter Note Patient called stating that [facility] in [place] did not receive the rx needed prior to MRI being done. Please advise. [facility] 12-11-2024 Miscellaneous Notes Patient called stating that [facility] in [place] did not receive the rx needed prior to MRI being done. Please advise. documented in this encounter [facility] 12-10-2024 Telephone encounter Note Faxed referral, MRI order, office notes and XR report to [facility]. [facility] 12-10-2024 Miscellaneous Notes Faxed referral, MRI order, office notes and XR report to [facility]. Patient called and left vm that he spoke with [facility]. They received authorization for his MRI. They have not received requested notes so they cannot schedule him until they receive the notes. Please advise. documented in this encounter [facility] 12-10-2024 Telephone encounter Note Patient called and left vm that he spoke with [facility]. They received authorization for his MRI. They have not received requested notes so they cannot schedule him until they receive the notes. Please advise. [facility] 11-30-2024 History of Present illness Narrative [...] 10/07/24, heat, TYL, rest, HEP, P.T. [facility] gabrielle, xrays LT knee 10/08/24 [facility], XR [facility] [...] f/u s/p MRI to be done at [facility]. documented in this encounter [facility] 11-10-2024 Note [facility] Consult Note [...] years ago here he was admitted to [facility] with A. fib with rapid [...] 48 hours from 12/24/2021 to 12/10/2021 at [facility] was reviewed by me and shows PVC burden of less than 1% and PVC count of 6%. Occasional nonsustained atrial tachycardia few beats seen but no atrial fibrillation noted. No ventricular tachycardia noted EKG 10/17/2021 shows sinus rhythm with normal intervals Echocardiogram done at [place] on 09/06/2021 shows ejection fraction of 60% [...] spondylosis without myel (more content not included)... [facility] 11-09-2024 History of Present illness [...] going to therapy in [facility] with improvement in strength but continues to [...] 10/07/24, heat, TYL, rest, HEP, P.T. noms gabrielle, xrays LT knee 10/08/24 [facility], XR [facility] B/L WB AP 11/09/24, ice, peter Objective Left Knee Exam Tests Jaden: Medial [...] the left knee done on 10/08/24 at [facility] reveals tricompartmental arthritis, no fractures noted. [...] he understands this documented in this encounter [facility] [facility] 10[facility] History of Present illness Narrative [...] and sit to stands at home. Pain: 1-10 Objective: PT Evaluation (10/20/2024) Left KNEE AROM: [...] to be instructed in home exercise program. 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 Date: documented in this encounter [facility] 10-20-2024 History of Present illness Narrative [...] sign below. Date: documented in this encounter [facility] 10-12-2024 Hospital Discharge instructions Patient Education [...] Follow these instructions at home: Medicines Take gtvn-hap-dlrkcfh and prescription medicines only as told by [...] provider. Document Revised: 06/20/2022 Document Reviewed: 06/20/2022 [employer] Patient Education 2023 [employer]. Follow Up Care 06/24/2023 16:43:14 With:ESEQUIEL RUSSELL, Natali R, URL Address: [facility] [address] [place] [address] [phone] When: Unknown Comments:6 mos [facility] [place] 10-12-2024 Note Patient Education Urology Epididymitis [...] these instructions at home: Medicines ??? Take exon-ahp-wipfmyp and prescription medicines only as told by [...] by your heal (more content not included)... [facility] 10-07-2024 History of Present illness Narrative [facility] [address] [place] [address] Patient: Oscar Escoto Sex: male : 1950 [...] Impairment. Past Medical History: Diagnosis Date Afib ([facility]) Back pain lumbar BPH (benign prostatic hyperplasia) Cancer ([facility]) multiple basal cell Chronic pain disorder [...] 02/08/2023 Performed by Umair Decker MD at [facility] INJECTION BURSA LARGE JOINT: left ischial bursa Left 08/16/2023 Performed by Umair Decker MD at [facility] INJECTION LARGE JOINT BURSA Right 04/12/2017 Performed by Umair Decker MD at [facility] INJECTION MEDIAL BRANCH NERVE BLOCK: right [id number] 51mbb Right 08/12/2020 Performed by Umair Decker MD at [facility] INSERTION LOOP RECORDER 01/24/2023 Dr Amin at [facility] JOINT REPLACEMENT right hip ORTHOPEDIC SURGERY Left 2012 wrist fixation RADIO FREQUENCY ABLATION: right [id number] Right 09/23/2020 Performed by Umair Decker MD at [facility] REPAIR HERNIA INGUINAL WITH MESH Right 09/23/2018 Performed by Kavya Germain DO at [facility] REPAIR HERNIA UMBILICAL WITH MESH N/A 09/23/2018 Performed by Kavya Germain DO at [facility] REPLACEMENT TOTAL JOINT ANTERIOR SUPINE INTERMUSCULAR HIP Right 07/10/2017 Performed by America Ambrocio MD at [facility] & [...] Resource Strain: Low Risk (02/03/2024) Received from [facility] Overall Financial Resource Strain (CARDIA) Difficulty of Paying Living Expenses: Not hard at all Food Insecurity: No Food Insecurity (10/07/2024) Hunger Screening Food Insecurity - Worry: Never True Food Insecurity - Inability: Never True Transportation Needs: No Transportation Needs (02/03/2024) Received from [facility] PRAPARE - Transportation Lack of Transportation (Medical): No Lack of Transportation (Non-Medical): No Physical Activity: Sufficiently Active (02/03/2024) Received from [facility] Exercise Vital Sign Days of Exercise per Week: 3 days Minutes of Exercise per Session: 60 min Stress: No Stress Concern Present (02/03/2024) Received from [facility] [place] [place] [employer] - Occupational Stress Questionnaire Feeling of Stress : Not at all Social Connections: Moderately Integrated (02/03/2024) Received from [facility] Social Connection and Isolation Panel [NHANES] Frequency of Communication with Friends and Family: Once a week Frequency of Social Gatherings with Friends and Family: Once a week Attends Religion Services: More than 4 times per year Active Member of Clubs or Organizations: Yes Attends Club or Organization Meetings: More than 4 times per year Marital Status: Interpersonal Safety: Unknown (01/16/2024) Received from [facility] [place] Safety & Environment Fear of Current or Ex-Partner: Not on file Emotionally Abused: Not on file Physically Abused: Not on file Sexually Abused: Not on file Physically or Sexually Abused: Not on file Housing Instability: Low Risk (02/03/2024) Received from [facility] Housing Stability Vital Sign Unable [...] and drawer test is negative. Assessment/Treatment Plan: Blaire was seen today for knee pain. Diagnoses [...] PA-C 10/07/24 1437 documented in this encounter [facility] 08-13-2024 History of Present illness Narrative Images [...] Scalp (5), Right Anterior Neck, Right Mid [place], Right Parotid Area, Right Posterior Neck, Right Preauricular Area, Right Superior [place], Right Evangelical, Right Temporal Scalp Erythematous scaly [...] limited to risks of scarring, darker or ems driver pigmentary changes, recurrence, incomplete removal and infection. [...] Scalp (5), Right Anterior Neck, Right Mid [place], Right Parotid Area, Right Posterior Neck, Right Preauricular Area, Right Superior [place], Right Evangelical, Right Temporal Scalp 6. History [...] months skin check documented in this encounter [facility] 06-24-2023 Hospital Discharge instructions Patient [...] urethra. Follow these instructions at home: Take bjkm-osm-zfsbgmx and prescription medicines only as told by [...] provider. Document Revised: 05/30/2022 Document Reviewed: 05/30/2022 [employer] Patient Education 2022 [employer]. Follow Up Care 05/07/2022 15:53:47 With:ESEQUIEL RUSSELL, Natali Gonzalez, URL Address: [facility] [address] [place] [address] [phone] When: Unknown Comments:1 yr w/ PSA [facility] 12-18-2022 Note PROCEDURE: XR FOOT L [...] by: MARÍA BRYSON Date: 2022-12-18 09:32 [facility] 11-06-2022 Note PROCEDURE: XR FOOT [...] by: RAZ MATOS Date: 2022-11-06 15:27 [facility] 10-17-2022 Note PROCEDURE: XR FOOT L [...] by: RAZ MATOS Date: 2022-10-17 10:46 [facility] 09-27-2022 Note PROCEDURE: XR FOOT [...] authenticated by: MARÍA BRYSON Date: 2022-09-27 18:29 [facility] 05-15-2022 Note PROCEDURE: XR FOOT R [...] authenticated by: MARÍA BRYSON Date: 2022-05-15 21:39 [facility] 05-07-2022 Hospital Discharge instructions Patient Education [...] 11/11/2006 Document Revised: 07/31/2019 Document Reviewed: 10/11/2017 [employer] Patient Education 2020 [employer]. 05/07/2022 15:46:01 Benign Prostatic Hyperplasia Benign Prostatic [...] urethra. Follow these instructions at home: Take pcqf-tyl-aeyfdwu and prescription medicines only as told by [...] 11/11/2006 Document Revised: 10/06/2019 Document Reviewed: 12/16/2017 [employer] Patient Education 2020 [employer]. Follow Up Care 09/04/2021 16:41:31 With:Natali IRAHETA MD, URL Address: [facility] [address] [place] [address]- [phone] When:Within 1 Year(s) Comments:f/u in 1 year with PSA and NAIMA [facility] Evaluation + Plan note Future Appointments Appointment Date:05/13/2023 03:00:00 PM Scheduled Provider:Natali IRAHETA MD Location:[facility] Appointment Type:URO Office Visit Diagnostic Tests PendingPSA Total 05/07/22 [facility] Evaluation + Plan note Future Appointments Appointment Date:06/29/2024 03:00:00 PM Scheduled Provider:[facility]O Office Visit Diagnostic Tests PendingPSA Total 06/24/23 [facility] Evaluation + Plan note Future Appointments Appointment Date:04/12/2025 01:15:00 PM Scheduled Provider:Natali IRAHETA MD Location:[facility] Appointment Type:URO Office Visit Diagnostic Tests PendingPSA Total 10/12/24 [facility] Evaluation + Plan note Future Appointments Appointment Date:10/25/2025 10:15:00 AM Scheduled Provider:Natali IRAHETA MD Location:[facility] Appointment Type:URO Office Visit [facility] Evaluation note Diagnosis [...] unspecified chronicity- Primary [facility] Medicare annual wellness [...] including hip- Primary [facility] [...] limb, including hip documented in this encounter [facility]* Diagnosis Medicare annual wellness [...] Primary H/O epididymitis documented in this encounter [facility] Healthcare[facility] note* Diagnosis Chronic epididymitis- Primary [facility] Diagnosis Left hip pain- Primary Pain in joint, pelvic region and thigh [facility] Diagnosis Primary osteoarthritis of left hip- Primary Status post total hip replacement, right [facility] Narrative No data available for this section [facility] InstructionsNot on filedocumented in this encounter [facility] on filedocumented in this encounter [facility] filedocumented in this encounter [facility] filedocumented in this encounter [facility] No data available for this section [facility] reason for referral (narrative)* Clinic-Administered Medication (Routine) - Closed Specialty Diagnoses / Procedures Referred By Contac t Referred To Contact Orthopaedic Surgery Procedures L Inj/Asp: L knee Mary Lou Diane, NAHEED [address] [address] Phone: tel: fax: Referral ID Status Reason Start Date Expiration Date Visits Re quested Visits Authorized [id number] Closed 11/09/2024 05/08/2025 1 1 [facility] - Outpatient (Routine) - Authorized Specialty Diagnoses / Procedures Referred By Contac t Referred To Contact Physical Therapy Diagnoses Pain in left knee Procedures [place] PHYSICAL THERAPY EVALUATION LOW COMPLEX 20 MINS [place] OFFICE/OUTPATIENT NEW HIGH Cecilia Sanchez MD [address] [place] [address] Phone: tel: fax: Yenny Rowe PT Referral ID Status Reason Start Date Expiration Date V isits Requested Visits Authorized [id number] Authorized 10/20/2024 04/18/2025 99 99 [facility] HealthcareReason for visit Narrative* Rehabilitation - Outpatient (Routine) - Authorized Specialty Diagnoses / Procedures Referred By Contac t Referred To Contact Physical Therapy Diagnoses Pain in left knee Procedures [place] PHYSICAL THERAPY EVALUATION LOW COMPLEX 20 MINS [place] OFFICE/OUTPATIENT NEW HIGH Cecilia Sanchez MD [address] [place] [address] Phone: tel: fax: Yenny Rowe PT Referral ID Status Reason Start Date Expiration Date V isits Requested Visits Authorized [id number] Authorized 10/20/2024 11/24/2024 99 99 [facility] Healthcare Chief Complaint and Reason for [...] Dates Sakina Carpenter MD Attending Provider Active Manager Music Relationship Specialty Start Date End Date North Chapin MD [address] [place] [address] PCP - General Family Medicine 02/04/24 North Chapin MD [address] [place] [address] PCP - [employer] 02/24/24 Manager Music Relationship Specialty Start Date End Date North Chapin MD [address] [place] [address] PCP - General Family Medicine 02/04/24 North Chapin MD [address] [place] [address] PCP - [employer] 02/24/24 Manager Music Relationship Specialty Start Date End Date North Chapin MD [address] [place] [address] PCP - General Family Medicine 02/04/24 North Chapin MD [address] [place] [address] PCP - [employer] 02/24/24 Manager Music Relationship Specialty Start Date End Date Norht Chapin MD [address] [place] [address] PCP - General Family Medicine 02/04/24 North Chapin MD [address] [place] [address] PCP - [employer] 02/24/24 Manager Music Relationship Specialty Start Date End Date North Chapin MD [address] [place] [address] PCP - General Family Medicine 02/04/24 North Chapin MD [address] [place] [address] PCP - [employer] 02/24/24 Manager Music Relationship Specialty Start Date End Date North Chapin MD [address] [place] [address] PCP - General Family Medicine 02/04/24 North Chapin MD [address] [place] [address] PCP - [employer] 02/24/24 Manager Music Relationship Specialty Start Date End Date North Chapin MD [address] [place] [address] PCP - General Family Medicine 02/04/24 North Chapin MD [address] [place] [address] PCP - [employer] 02/24/24 Manager Music Relationship Specialty Start Date End Date North Chaipn MD [address] [place] [address] PCP - General Family Medicine 02/04/24 North Chapin MD [address] [place] [address] PCP - [employer] 02/24/24 Manager Music Relationship Specialty Start Date End Date North Chapin MD [address] [place] [address] PCP - General Family Medicine 02/04/24 North Chapin MD [address] [place] [address] PCP - [employer] 02/24/24 Manager Music Relationship Specialty Start Date End Date North Chapin MD [address] [place] [address] PCP - General Family Medicine 02/04/24 North Chapin MD [address] [place] [address] PCP - [employer] 02/24/24 Manager Music Relationship Specialty Start Date End Date North Chapin MD [address] [place] [address] PCP - General Family Medicine 02/04/24 North Chapin MD [address] [place] [address] PCP - [employer] 02/24/24 Manager Music Relationship Specialty Start Date End Date North Chapin MD [address] [place] [address] PCP - General Family Medicine 02/04/24 North Chapin MD [address] [place] [address] PCP - [employer] 02/24/24 Manager Music Relationship Specialty Start Date End Date North Chapin MD [address] [place] [address] PCP - General Family Medicine 02/04/24 North Chapin MD [address] [place] [address] PCP - [employer] 02/24/24 Manager Music Relationship Specialty Start Date End Date North Chapin MD [address] [place] [address] PCP - General Family Medicine 02/04/24 North Chapin MD [address] [place] [address] PCP - [employer] 02/24/24 Manager Music Relationship Specialty Start Date End Date North Chapin MD [address] [place] [address] PCP - General Family Medicine 02/04/24 North Chapin MD [address] [place] [address] PCP - [employer] 02/24/24 Manager Music Relationship Specialty Start Date End Date North Chapin MD [address] [place] [address] PCP - General Family Medicine 02/04/24 North Chapin MD [address] [place] [address] PCP - [employer] 02/24/24 Manager Music Relationship Specialty Start Date End Date North Chapin MD [address] [place] [address] PCP - General Family Medicine 02/04/24 North Chapin MD [address] [place] [address] PCP - [employer] 02/24/24 Manager Music Relationship Specialty Start Date End Date North Chapin MD [address] [place] [address] PCP - General Family Medicine 10/07/24 Manager Music Relationship Specialty Start Date End Date North Chapin MD [address] [place] [address] PCP - General Family Medicine 02/04/24 North Chapin MD [address] [place] [address] PCP - [employer] 02/24/24 Manager Music Relationship Specialty Start Date End Date North Chapin MD [address] [place] [address] PCP - General Family Medicine 02/04/24 North Chapin MD [address] [place] [address] PCP - [employer] 02/24/24 Manager Music Relationship Specialty Start Date End Date North Chapin MD [address] [place] [address] PCP - General Family Medicine 02/04/24 North Chapin MD [address] [place] [address] PCP - [employer] 02/24/24 Manager Music Relationship Specialty Start Date End Date North Chapin MD [address] [place] [address] PCP - General Family Medicine 02/04/24 North Chapin MD [address] [place] [address] PCP - [employer] 02/24/24 Manager Music Relationship Specialty Start Date End Date North Chapin MD PCP - General Family Medicine 10/07/24 Manager Music Relationship Specialty Start Date End Date North Chapin MD PCP - General Family Medicine 10/07/24 Manager Music Relationship Specialty Start Date End Date North Chapin MD PCP - General Family Medicine 10/07/24 Goals [...] section and content) DATE CREATED AUTHOR 03/24/2023 [facility] DATE CREATED AUTHOR AUTHOR'S ORGANIZ ATION 04/10/2023 [facility] DATE CREATED AUTHOR AUTHOR'S ORGANIZ ATION 10/09/2024 [facility] DATE CREATED AUTHOR AUTHOR'S ORGANIZ ATION 04/02/2025 [facility] DATE CREATED AUTHOR AUTHOR'S ORGANIZ ATION 07/02/2025 [facility] DATE CREATED AUTHOR AUTHOR'S ORGANIZ ATION 07/16/2025 [facility] DATE CREATED AUTHOR AUTHOR'S ORGANIZ ATION 08/08/2025 [facility] DATE CREATED AUTHOR AUTHOR'S ORGANIZ ATION 08/17/2025 [facility] DATE CREATED AUTHOR AUTHOR'S ORGANIZ ATION 09/03/2025 [facility] Reason for Visit (unrecogniz ed section and content) Reason Comments Pain Reason Comments Follow-up Reason Comments Med Refill Reason Onset Date Comments MRI 12/10/2024 Reason Onset Date Comments RX 12/11/2024 Reason Comments Follow-up Reason Comments Knee Pain Reason Comments Pre-op Exam Reason Comments Pain Reason Comments Medicare Annual Wellness Visit Subsequen t WellnessSleeping medication Reason Comments Saucerization excision Reason Comments Follow-up Possible hernia Reason Comments Hernia RECURRENT RIGHT SIDE INGUINAL HERNIA, REFERRED BY DR CHAPIN Specialty Diagnoses / Procedures Referred By Kaitlynn t Referred To Contact General Surgery Diagnoses Inguinal pain, right History of inguinal hernia Procedures [place] OFFICE OUTPATIENT VISIT 60-74 MINS HIGH [facility] [id number] (SNOMED CT) - AMB REFERRAL TO GENERAL SURGERY North Chapin MD [address] [place] [address] Phone: tel: fax: Kavya Germain, [address] [place] [address] Phone: tel: fax: Referral ID Status Reason Start Date Expiration Date Visits Re quested Visits Authorized [id number] Closed 07/06/2025 01/02/2026 1 1 Reason Comments 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 [employer] [facility]. provides no warranty or guarantee of the accuracy or completeness of information in this document.
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
[2025-09-06] MEDS: LIDOCAINE HCL 1% 100 MG/10 ML MDV INJ (17:48)
[2025-09-06] MEDS: CEPHALEXIN 500 MG CAPSULE PO (18:50)
--- NOTE | 2025-09-06 18:51 | PC.NURSE ---
knee immobilizer applied to left knee, pt tolerated well
== END 2025-09-06 18:51 | disposition home or self-care (01) ==
PROVIDERS: Emergency Provider Emergency Medicine; PCP Family Medicine
DX: S81.012A Laceration without foreign body, left knee, initial encounter (principal); W54.8XXA Other contact with dog, initial encounter
CPT/HCPCS: 99283

== ENCOUNTER 2025-09-20 12:46 | Outpatient (OUT) | payer MEDICARE, SELFPAY ==
--- OUTSIDE RECORDS SUMMARY | 2025-09-17 20:30 | XMS_ITS | Continuity of Care Document ---
Author Organization [facility] Address [address] [place] [address] Phone Care Team Providers Care Manager Advertising Name Role Phone North Gomes MD Primary Care Provider Isamar Dominguez APRN Attending Provider Care Teams Visit Care Team Team Status: Inactive Member Role/Relationship Status Dates North Gomes MD Primary Care Provider Active S tart: September 17, 2025 End: September 17, 2025Briseida Dos Santostending ProviderActiveStart: September 17, 2025 End: September 17, 2025 Patient Care Team Team Status: Inactive Member Role/Relationship Status Dates Isamar Dominguez APRN Attending Provider Active Start: September 17, 2025 End: September 17, 2025 Chief Complaint and Reason for Visit Chief Complaint Admit Date Wound posterior left knee September 17, 2025 2:36pm Reason for Visit Admit Date Encounter for wound care September 17 2:36pm Reason for Referral Type Reason(s) Provider Provider Contact Information P rovider Address Start Date Cellulitis of left knee Delayed wound zhekatlP94.116 - Cellulitis of left lower limb,T14.8XXD - Other injury of unspecified body region, subsequent encounterDetermined by PatientOct2024 Allergies, Adverse Reactions, Alerts Allergen Type Severity Reaction Last Updated Verified Status No Known Allergies Allergy Unknown September 17, 2025 2:41pmYesActive Social History Smoking Status Status Start Date End Date Date of Observa tion Never smoked tobacco (finding) April 20, 2022 12:40pm Observation Status Observation Response Date of Response Legal Sex Male (finding) Sex Assigned At BirthMaleAprde 1949 Family History Relationship Condition Age at Onset Recorded Date/T carmelo sister Malignant neoplasm of skin Unknown motherHeart diseaseUnknownMalignant neoplasm of breastUnknownfatherMalignant neoplasm of kidneyUnknown Problems Active Problems Problem Diagnosis/Recorded Date Onset Date Stat us Delayed wound healing September 17, 2025 3:13pm Unknow n Active Cellulitis of knee, left September 17, 2025 3:13pm Unk nown Active Medications Medication Status Dose Units Route Directions Qty Days Refills S tart Date Stop Date End Date Reason(s) Instructions Adherence Doxepin 50 mg capsule Active 50 MG PO Daily at b edtime April 19, 2022 12:00amUnknownTamsulosin 0.4 mg capsuleActive0.4MGPODailyMay 2021 12:00amBPHUnknownRopinirole 2 mg oooljdLukfmw5CWOAHmjhf at bedtimeMay 2021 12:00amRLSUnknownDiltiazem Hcl 180 mg capsule,ext.rel 24h degradable Bylkeb325ZTAMChjupSwr 2021 12:00amA-fibUnknownFinasteride 5 mg tablet Pnyjaz5RLAZIaicsOos 2021 12:00amBPHUnknownPotassium Citrate 99 mg Capsule Dpqmgi20FXMAJarimnwOul 2021 12:00amUnknownEye Promise 1 nsuXfttav1OERPZ DailyMay 2021 12:00ameye healthUnknownDiltiazem Hcl 240 mg capsule,extended release 24hrActiveMGPOOctober 2024 12:00amUnknown Lisinopril 10 mg tabletActiveMGPOOctober 2024 12:00amUnknownFlecainide 100 mg tabletActiveMGPOOctober 2024 12:00amUnknownRivaroxaban (Xarelto) 20 mg tabletActiveMGPOOctober 2024 12:00amUnknownClindamycin Hcl 300 mg capsule ActiveMGPOOctober 2024 12:00amUnknown Procedures Procedure Date Performed Status Aerobic Culture September 17, 2025 active Anaerobic Culture September 17, 2025 active Gram Stain September 17, 2025 active Vital Signs Vital Reading Result Reference Range Collection Date/Time Height 74 [in_i] September 17, 2025 2:71nsArgwkx229.74 [facility] 2:52pmBody Jjwrdkjyrlh25.5 [degF]97.6-99.0Formerly [facility] 2024 2:52pmHeart Rate56 /kfo88-994 September 17, 2025 2:52pmRespiratory rate18 /ren38-80Aehfcmc 2024 2:52pm Oxygen saturation by Pulse utbavpjd00 %95-100[facility] 2024 2:52pmBP Tmfpklkt443 mm[Hg]100-140[facility] 2024 2:52pmBP Sxtqhxarv18 mm[Hg]60-100 September 17, 2025 2:52pmBMI (Body Mass Index)33.0 kg/a4Itptnzm 2024 2:52pm Advance Directives Advance Directive Response Recorded Date/ Time Advance Directives No May 31 8:07am Insurance Providers Guarantor Oscar Hines [facility] Address [address] [place] [id number] Info.Home Phone: Coverage Status Update:2025 Payer Group Member ID Coverage Type Subscriber Relationship to Subscriber Effective Date Expiration Date MMO MMO Id: [id number] [facility] PFFS Retired Id: [id number] A [facility] Id: [id number] [address] [place] [phone] Home Phone: Email: [email or web address] [facility] PFFS Non Pt [id number] A [facility] Id: [id number] [address] [place] [phone] Home Phone: Email: [email or web address] Encounters Encounter Location(s) Arrival/Admit Date Discharge/Departure Date Discharge/Departure Disposition Provider(s) Departed Physician/ Provider Office Visit -[facility] [place] September 17, 2025 2:36pm September 17, 2025 3:33pm Discharged to home care or self care (routine discharge) Isamar avery APRN Departed Referred -[facility] September 17, 2025 7:10pm September 17, 2025 7:11pm Discharged to home care or self care (routine discharge) Isamar avery APRN Recent Diagnosis Onset Date Admit Date Encounter for wound care Unknown September 17, 2025 2:36pm Assessments Diagnosis Onset Date Resolution Status Admit Date Encounter for wound care noneactiveOctober 2024 2:36pm Plan of Treatment Author Isamar Dominguez [facility]Auth[facility] 20[facility] 5:01pm75 year old male here for referral consult to wound care. Pt injured posterior left knee on dog's spiked collar 09/06 and was seen in ER for 9 stitches and Keflex. states he developed some seeping and smelly odor from the wound while on vacation in [place] and went to ER for assessment and suture removal. was instructed to pack the wound and keep it covered, pt was then placed on clindamycin. Pt and are concerned that the area is not closing or healing well and pt is scheduled to have testicle removed d/t chronic epididymitis and he is concerned this wound could affect his surgical schedule. After removing the dressing, an area of packing was found to be embedded in wound. I used multiple attempts to soak the wound dressing off with sterile water to avoid causing further skin trauma. The area was measured and I obtained a culture of some of the gavin secretion coming from the wound. Based on the 's pictures from the wound over time, I do not believe that the infection is worse today than a few days ago and the wound and surrounding tissue are healing and not showing signs of infection. No change to atb, continue to take as prescribed. I did instruct the that I do not believe packing is necessary, no tunnelling is observed. Wound care referral made and has copy of referral. Area covered by adaptic dressing and Coban. I gave several adaptic dressings to use for home dressing change. F/u with wound care and pcp for further evaluation and treatment. Future Tests Future scheduled test information is unavailable Pending Tests Test Name Ordered Date Scheduled Date Aerobic Culture September 17, 2025 7:10pm Anaerobic CultureOctober 2024 7:10pmGram StainOctober 2024 7:10pm Future Visits Future appointment information is unavailable Future Procedures Procedure Name Ordered Date Scheduled Date Wound Culture (Deep) September 17, 2025 7:07pm O ctober 2024 7:10pm Future Medications Future medication information is unavailable Patient Instructions Patient instructions are unavailable
--- OUTSIDE RECORDS SUMMARY | 2025-09-20 12:49 | XMS_ITS | Clinical Summary ---
Author Organization [facility] Address [address] [place] [address] Phone Care Team Providers Care Diet Aide Name Role Phone Unavailable Primary Care Provider Unavailabl e Social History Tobacco UseTypesPacks/DayYears UsedDateSmoking Tobacco: Never AssessedSex and Gender InformationValueDate RecordedSex Assigned at BirthNot on fileLegal Sex Male10/19/2022 1:10 PM ESTGender IdentityNot on fileSexual OrientationNot on file Plan of Treatment Not on file
--- OUTSIDE RECORDS SUMMARY | 2025-09-20 12:51 | XMS_ITS | Encounter Summary ---
Author Organization [facility] Address [address] [place] [address] Care Team Providers Care Inspector Metal Can Name Role Phone North Gomes MD Primary Care Provider [phone] Encounter Details DateTypeDepartmentCare Team (Latest Contact Info)Udfpmdvjprf85/09/2025Orders Only [facility] [address] [place] [address] Carmencita Tse MD [address] [place] [address] Social History Tobacco UseTypesPacks/DayYears UsedDateSmoking Tobacco: NeverSmokeless Tobacco: NeverAlcohol UseStandard Drinks/WeekCommentsYes0 (1 standard drink = 0.6 oz pure alcohol)occasionalUT Safety & EnvironmentAnswerDate RecordedFear of Current or Ex-PartnerNot on file01/16/2024Emotionally AbusedNot on file01/16/2024hysically AbusedNot on file01/16/2024Sexually AbusedNot on file01/16/2024hysically or Sexually AbusedNot on file01/16/2024CommentsUnknownSex and Gender InformationValueDate RecordedSex Assigned at BirthChoose not to disclose 06/23/2025 10:59 PM EDTLegal AggVavx2705/23/2022 11:50 PM EDTGender IdentityChoose not to llporsjy43/30/2025 10:59 PM EDTSexual OrientationChoose not to disclose 06/23/2025 10:59 PM EDTdocumented as of this encounter Plan of Treatment DateTypeDepartmentCare Team (Latest Contact Info)Ujyjgabbeio53/02/2025 2:00 PM ESTOffice Visit [facility] [address] [place] [address] Tiago Wilburn MD [address] [place] [phone] documented as of this encounter Procedures Procedure NamePriorityDate/TimeAssociated DiagnosisCommentsCARDIAC DEVICE CHECK - REMOTE - LOOP RECORDER (ILR)Kzzohcn6709/02/2025 12:00 AM EDTdocumented in this encounter Results * Cardiac device check - Remote loop recorder (ILR) (09/02/2025 12:00 AM EDT) Anatomical RegionLateralityModalityOtherSpecimen (Source)Anatomical Location / LateralityCollection Method / VolumeCollection TimeReceived Time09/02/2025 Narrative Authorizing ProviderResult TypeResult StatusSabay Tse MDC IMPLANTABLE CARDIAC DEVICE PROCEDURESFinal Result documented in this encounter Visit Diagnoses Not on filedocumented in this encounter Care Teams Team MemberRelationshipSpecialtyStart DateEnd Date North Gomes MD [address] [place] [address] PCP - General12/05/22documented as of this encounter
--- OUTSIDE RECORDS SUMMARY | 2025-09-20 12:51 | XMS_ITS | Clinical Summary ---
Author Organization [facility] Address [address] [place] [address] Care Team Providers Care Fruit [employer] Agent Name Role Phone Unavailable Primary Care Provider Unavailabl e Social History Tobacco UseTypesPacks/DayYears UsedDateSmoking Tobacco: Never AssessedSex and Gender InformationValueDate RecordedSex Assigned at BirthNot on fileLegal Sex Male10/26/2012 9:48 AM ESTGender IdentityNot on fileSexual OrientationNot on file Plan of Treatment Not on file Insurance
--- OUTSIDE RECORDS SUMMARY | 2025-09-20 12:51 | XMS_ITS | Patient Health Record ---
Author Organization [facility] in [place] Address [address] [place] [address] Care Team Providers Care Promotions Assistant Sales Marketing Name Role Phone North Gomes MD Primary Care Provider Unavailab le Allergies No Known Allergies Reason For Referral No Information Medications Medication SIG (Take, Route, Frequency, Duration) Notes Start Date End Date Status Alendronate Sodium 70 MG Oral; Duration: 84 Days ActivedilTIAZem HClActiveFinasteride 5 MG1 tablet Orally Once a dayActiveDoxepin HCl 50 MG1 capsule Orally Once a dayActiveTamsulosin HCl 0.4 MG1 tablet Orally Once a dayActiverOPINIRole HCl 2 MG1 capsule Orally Once a dayActiveVitamin D3 125 MCG (5000 UT)1 capsule Orally Once a day; Duration: 90 days10/10/2023ctive Xarelto 20 MG1 tablet with food Orally Once a dayActive Social History Tobacco Use: Social History Observation Description Date Details (start date - stop date) Never Smoker NA - NA Tobacco Use/Smoking Question Answer Notes Patient is a nonsmoker Problems Problem Type SNOMED Code ICD Code Onset Dates Problem Status W/U Status Risk Notes Problem Acquired hallux rigidus (8266717) Hallux rigidus, right foot (M20.21) ActiveconfirmedProblemAcquired hallux rigidus (6756308)Hallux rigidus, left foot (M20.22)ActiveconfirmedProblemPseudarthrosis after fusion or arthrodesis (741968212)Pseudarthrosis after fusion or arthrodesis (M96.0)Activeconfirmed ProblemPain associated with internal prosthetic device (disorder) (556960718) Pain due to internal orthopedic prosthetic devices, implants and grafts, initial encounter (T84.84XA)ActiveconfirmedProblemHistory of polyp of colon (situation) (974697739)History of colon polyps (Z86.010)ActiveconfirmedProblemPain in left foot (239916855306256)Left foot pain (M79.672)Activeconfirmed Plan Of Treatment No Information Insurance Providers Payer Name Payer Address Payer Phone Subscriber Number Group Number Insured Name Patient Relationship to Insured Coverage Start Date Coverage End Date [employer] MED[employer]ARE [address] [place], [place] [id number] Marianela Manuelelf - patient is the insured Medical (General) History Medical History History ICD Code Change in bowel habit R19.4 Benign prostatic hyperplasia without uri nary obstruction N40.0 Other hammer toe(s) (acquired), unspecif ied foot M20.40 Hernia, umbilical K42.9 Acid reflux K21.9 Atrial fibrillation I48.91 joint replacement Surgical History Surgery Date(Month/Year) 1st mpj, correction of hammer toes, tend on lengthening left 09/27/22 adenoidectomy tonsillectomytotal hip replacement rightinguinal herina repair aznhy0sl MPJ fusion, hammertoes zfcdj7378dkub 1st MPJ fusion with excision of fibrous okrkjexk23/18/2023Hospitalization History Reason Date(Month/Year) hip replacement 2017 atrial fib 2016
--- OUTSIDE RECORDS SUMMARY | 2025-09-20 12:52 | XMS_ITS | Clinical Summary ---
Author Organization [facility] Address [address] [place] [address] Care Team Providers Care Genetics Nurse Name Role Phone North Gomes MD Primary Care Provider [phone] Allergies No known active allergies Medications MedicationSigDispense QuantityRefillsLast FilledStart DateEnd DateStatus doxepin (SINEquan) 50 mg capsule doxepin 50 mg capsuleActive finasteride (Proscar) 5 mg tablet finasteride 5 mg cjnhpd8306/17/2018Active rOPINIRole (Requip) 2 mg tablet ropinirole 2 mg tabletActive tamsulosin (Flomax) 0.4 mg 24 hr capsule tamsulosin 0.4 mg ymycjun2704/06/2022ctive cholecalciferol (Vitamin D-3) 125 MCG (5000 UT) capsule Take 125 mcg by mouth in the morning.11/07/2023ctive famotidine (Pepcid) 20 mg tablet Take 20 mg by mouth twice a day.Active ferrous sulfate 325 (65 Fe) MG tablet Take 325 mg by mouth in the morning.Active dilTIAZem CD (Cardizem CD) 240 mg 24 hr capsule Indications:Essential hypertensionTake 1 capsule (240 mg) by mouth once daily as directed. 90 capsule /ctive lisinopril 10 mg tablet Indications:Essential hypertensionTake 1 tablet (10 mg) by mouth once daily as directed. 90 tablet //ctive rivaroxaban (Xarelto) 20 mg tablet Indications:Paroxysmal atrial fibrillation (CMS/HCC),SVT (supraventricular tachycardia)Take 1 tablet (20 mg) by mouth daily with evening meal. Take with food. 90 tablet 505/6Active flecainide (Tambocor) 100 mg tablet Indications:Paroxysmal atrial fibrillation (CMS/HCC)Take 1 tablet (100 mg) by mouth two times daily. 60 tablet 5Active Active Problems ProblemNoted DateDiagnosed RcjkVkkreatzcx17/28/2025History of colonic polyps 04/21/20252542Twgitcqmbtnz64/28/2025Pain due to internal orthopedic prosthetic devices, implants and grafts, initial kuxjttbgh13/28/2025Pain in left foot 04/21/2025Pseudarthrosis after fusion or dtpaobmvoam26/28/2025Medicare annual wellness visit, bliwdpdutc09/23/2024 Overview (06/09/2024): Last Assessment & Plan: Due for labs. Discussed proper diet and regular aerobic exercise. Need aerobic exercise 5-6 days a week for 30 minutes at a time. Smaller portions and limit total calories. Colonoscopy every 10 years. Tetanus every 10 years. Advised not to smoke. Discussed daily Aspirin therapy. Obesity (BMI 30-39.9)03/17/2024Encounter for long-term (current) use of /23/8877Srayadevclfcgx31/12/1691Jbqoqgvzxksf04/12/2024 Gastroesophageal reflux disease without qxdswmwkyet20/12/2024Insomnia, rbmdwoywgxf34/12/2024ostural dizziness with near lxodvbt0202/04/2024rediabetes 02/04/2024Spondylosis of lumbar region without myelopathy or radiculopathy 02/04/2024Transient global rrtxwov6002/04/2024 Overview (06/09/2024): Last Assessment & Plan: Recent episode and resolved. 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 Check MRI to assess for CVA. If CVA will need to start statin and refer to neurology. Continue aspirin. SVT (supraventricular tachycardia)12/03/20237107Nopnvaqjhzkw98 Ischial bursitis of left side/rimary osteoarthritis of left hip/03/2023 Overview (07/30/2023): Added automatically from request for surgery [id number] Chronic tsxwdhkyyrx81/11/2023Family history of malignant neoplasm of kidney 12/05/2022History of anticoagulant mdjfiji8812/05/2022ain in vyajokxt47/11/2023 Fqgnunhxuw78/11/2023Lumbosacral spondylosis without zndpeluqjj45/03/2020 Overview (12/05/2022): Added automatically from request for surgery [id number] Paroxysmal atrial owuuobvlzzhk74/16/2017 Assessment & Plan (12/19/2022 3:57 PM EST): - YAE2IX0-NQYk: 1 (age), possibly 2 for masked HTN, he has not trialed off cardizem -continue aspirin 325 -he called after visit and decided he would like to proceed with loop monitor implant for AF surveillance -continue cardizem 180 BPH (benign prostatic hyperplasia)07/10/2017Restless leg gsygfymy24/16/2017 Degenerative joint disease of pelvic mcwock4404/04/2017Sleep apnea10/09/2016 Overview (12/05/2022): instructed to bring CPAP to hospital Assessment & Plan (12/19/2022 3:56 PM EST): -continue with compliance for cpap Encounters DateTypeDepartmentCare RdidFsldzrolars46/09/2025 9:35 AM EDTAncillary Procedure [facility] [address] [place] [phone] Awareness of gnrggjaasc29/09/2025Orders Only [facility] [address] [place] [phone] Carmencita Tse MD 08/06/2025Refill [facility] [address] [place] [facility] [place] [address] Gaye Pizano MA Paroxysmal atrial fibrillation (CMS/HCC)08/05/2025Telephone [facility] [address] [place] [facility] [address] Sveta Paris MA 08/03/2025Orders Only [facility] [address] [place] [address] ProviderIsh MD 08/02/2025 12:40 PM EDTAncillary Procedure [facility] [address] [place] [phone] Awareness of ehnpenbbbw00/02/2025 2:15 PM EDTOffice Visit [facility] [address] [place] [address] Tiago Wilburn MD Abnormal EKG (Primary Dx); Pre-op ewzvxzfghg35/02/2025Orders Only [facility] [address] [place] [phone] Tiago Wilburn MD 07/27/2025Orders Only [facility] [address] [place] [address] Provider, MD Ish 07/12/2025Orders Only [facility] [address] [place] [phone] Carmencita Tse MD 07/02/2025 3:55 PM EDTAncillary Procedure [facility] [address] [place] [phone] Awareness of heartbeatsfrom Last 3 Months Immunizations ImmunizationAdministration DatesNext DueInfluenza, Seasonal, Quadrivalent, Bcfoddfexb90/09/2022,08/14/2021Influenza, injectable, quadrivalent, preservative free08/05/2020,07/08/2018,08/08/2017,07/19/2016,09/03/2015Influenza, seasonal, pfvvnzihsa18/01/2017Influenza, trivalent, yexyyrhnyo35/07/2019Moderna SARS-CoV-2 Slnzncqygqg38/28/2021Pneumococcal Conjugate PCV 13008/05/2020Pneumococcal Polysaccharide TNZ314008/14/2021Zoster, Xunupljtpds33/14/2018,03/25/2018 Family History Medical HistoryRelationNameCommentsmalignant neoplastic diseaseFatherCoronary artery diseaseMothermaligant neoplastic diseaseMotherRelationNameStatusComments FatherDeceasedMotherDeceased Social History Tobacco UseTypesPacks/DayYears UsedDateSmoking Tobacco: NeverSmokeless Tobacco: Never Tobacco Cessation:Counseling Given: Not Answered Alcohol UseStandard Drinks/WeekCommentsYes0 (1 standard drink = 0.6 oz pure alcohol)occasionalUT Safety & EnvironmentAnswerDate RecordedFear of Current or Ex-PartnerNot on file01/16/2024Emotionally AbusedNot on file01/16/2024hysically AbusedNot on file01/16/2024Sexually AbusedNot on file01/16/2024hysically or Sexually AbusedNot on file01/16/2024CommentsUnknownSex and Gender InformationValueDate RecordedSex Assigned at BirthChoose not to disclose 06/23/2025 10:59 PM EDTLegal GqiMecu7105/23/2022 11:50 PM EDTGender IdentityChoose not to jlkwuojm53/30/2025 10:59 PM EDTSexual OrientationChoose not to disclose 06/23/2025 10:59 PM EDT Last Filed Vital Signs Vital SignReadingTime TakenCommentsBlood Dlzuvqco342/6609 2:24 PM EDT Fbcrd600907/27/2025 2:24 PM EDTTemperature--Respiratory Vghc1048 6:10 PM EDTOxygen Ifvuzbxuqi92%07/27/2025 2:24 PM EDTInhaled Oxygen Concentration-- Bvnwwy366 kg (251 lb)07/27/2025 2:24 PM XFTHnwefe823 cm (6' 2 )07/27/2025 2:24 PM EDTBody Mass Index32.23007/27/2025 2:24 PM EDT Plan of Treatment DateTypeDepartmentCare Team (Latest Contact Info)Cobjhdumowx03/02/2025 2:00 PM ESTOffice Visit [facility] [address] [place] [address] Tiago Wilburn MD [address] [place] [address] Health MaintenanceDue DateLast DoneCommentsCT Ecdfnolxjzlf1952Colonoscopy 2Colorectal Cancer Jwiplvtuh1952FIT-DNA1952FIT1950 FOBT1952Medicare Annual Wellness (AWV)03/15/19529288Plvtbkswaymri1952 Depression Nzatnrxrz95/21/1964Adult Umkgbya6303/15/19741846Ucznvyvhd25/21/1992Fall Risk Zwxdagwnm43/21/2017COVID-19 Vaccine ( season)2025 10/05/2021, 03/22/2021, 03/22/2021, Additional history existsDiabetes: Hemoglobin A1C605/08/2025Zoster BtnegcckBhfgwcmjz72/14/2018, 03/25/2018 Pneumococcal Vaccine: 50+ YojrhLghsqdzhd57/20/2021, 08/05/2020Influenza Vaccine Suebfrcnk26/03/2025, 08/09/2024, 08/22/2023, Additional history existsHIB VaccinesAged OutNo longer eligible based on patient's age to complete this topic HPV VaccinesAged OutNo longer eligible based on patient's age to complete this topicIPV VaccinesAged OutNo longer eligible based on patient's age to complete this topicMeningococcal B VaccineAged OutNo longer eligible based on patient's age to complete this topicMeningococcal VaccineAged OutNo longer eligible based on patient's age to complete this topicRotavirus VaccinesAged OutNo longer eligible based on patient's age to complete this topic Medical Devices ImplantedTypeAreaManufacturerDevice IdentifierShelf Expiration DateModel / Serial / LotMonitor,Cardiac,Mobile,Luxdx - [id number] - [id number] Implanted:Qty: 1 on 01/24/2023 by [facility]burn [facility]Implant[facility] Loop RecorderBoston [id number] / [id number] / Procedures Procedure NamePriorityDate/TimeAssociated DiagnosisCommentsCARDIAC DEVICE CHECK CHECK - ZBWILFLempfje99/14/2025 1:39 PM EDT Awareness of heartbeats CARDIAC DEVICE CHECK - REMOTE - LOOP RECORDER (ILR)Ewykfmt9709/02/2025 12:00 AM EDTTREADMILL STRESS MYOCARDIAL PERFUSION LXSZHUIGwhudpu41/09/2025 3:16 PM EDT CARDIAC DEVICE CHECK CHECK - JEOMYMVuybyew02/08/2025 9:20 AM EDT Awareness of heartbeats BASIC METABOLIC CPEWXCfmtqnb38/02/2025 8:30 AM EDTCARDIAC DEVICE CHECK - REMOTE - LOOP RECORDER (ILR)Afptvga4507/27/2025 12:00 AM EDTCARDIAC DEVICE CHECK CHECK - TLOGHAXfruucp71/21/2025 9:08 AM EDT Awareness of heartbeats CARDIAC DEVICE CHECK - REMOTE - LOOP RECORDER (ILR)Mnepaif8407/12/2025 12:00 AM EDTCARDIAC DEVICE CHECK CHECK - PALXDNCbqhtrh74/30/2025 5:49 PM EDT Awareness of heartbeats HEMOGLOBIN G1XBuxklhp66/10/2025 4:56 PM EDTfrom Last 3 Months or Most Recently Relevant to Health Maintenance Results * CARDIAC DEVICE CHECK - REMOTE - LOOP RECORDER (ILR) (09/07/2025 1:39 PM EDT) Only the most recent of4 resultswithin the time period is included. Specimen (Source)Anatomical Location / LateralityCollection Method / Volume Collection TimeReceived Time Narrative Authorizing ProviderResult TypeResult StatusBlair Michael [facility] IMPLANTABLE CARDIAC DEVICE PROCEDURESFinal ResultPerforming OrganizationAddressCity/State/ZIP Code Phone Number CPACS * Cardiac device check - Remote loop recorder (ILR) (09/02/2025 12:00 AM EDT) Only the most recent of3 resultswithin the time period is included. Anatomical RegionLateralityModalityOtherSpecimen (Source)Anatomical Location / LateralityCollection Method / VolumeCollection TimeReceived Time09/02/2025 Narrative Authorizing ProviderResult TypeResult StatusCarmencita Tse [facility] IMPLANTABLE CARDIAC DEVICE PROCEDURESFinal Result * Treadmill Stress Myocardial Perfusion Imaging (08/03/2025 3:16 PM EDT) Anatomical RegionLateralityModalityOther Narrative Authorizing ProviderResult TypeResult StatusHistorical Provider [facility] STRESS PROCEDURESFinal Result * Basic metabolic panel (07/27/2025 8:30 AM EDT)Specimen (Source)Anatomical Location / LateralityCollection Method / VolumeCollection TimeReceived Time BloodVenous blood specimen / Unknown Narrative Authorizing ProviderResult TypeResult StatusHistorical Provider LAB BLOOD ORDERABLESFinal Result * Hemoglobin A1c (04/03/2025 4:56 PM EDT)Specimen (Source)Anatomical Location / LateralityCollection Method / VolumeCollection TimeReceived TimeBloodVenous blood specimen / Unknown Narrative Authorizing ProviderResult TypeResult StatusHistorical Provider LAB BLOOD ORDERABLESFinal Result from Last 3 Months or Most Recently Relevant to Health Maintenance Insurance Care Teams Team MemberRelationshipSpecialtyStart DateEnd Date North Gomes MD [address] [place] [address] [facility] - General12/05/22
--- OUTSIDE RECORDS SUMMARY | 2025-09-20 12:52 | XMS_ITS | Clinical Summary ---
Author Organization wise[employer] tem Address [id number] [address] [place] [address] Care Team Providers Care Artificial Leather Calender Operator Name Role Phone North Gomes MD Primary Care Provider [phone] Allergies No known active allergies Medications MedicationSigDispense QuantityRefillsLast FilledStart DateEnd DateStatus glucosamine-chondroitin 500-400 mg tablet Take 1 tablet by mouth in the morning and 1 tablet before bedtime.Active tamsulosin (FLOMAX) 0.4 mg capsule,extended release 24hr Take 1 capsule (0.4 mg total) by mouth nightly.Active rOPINIRole (REQUIP) 2 mg tablet Take 1 tablet (2 mg total) by mouth nightly.Active DAILY MULTI-VITAMIN ORAL Take 1 tablet by mouth in the morning.Active finasteride (PROSCAR) 5 mg tablet 06/17/2018Active doxepin (SINEquan) 50 mg capsule Take 1 capsule (50 mg total) by mouth nightly.08/23/2020Active famotidine (PEPCID) 20 mg tablet Take 1 tablet (20 mg total) by mouth in the morning and 1 tablet (20 mg total) before bedtime.Active rivaroxaban (XARELTO) 20 mg tablet tablet Take 1 tablet (20 mg total) by mouth in the morning.Active acetaminophen (TYLENOL ARTHRITIS) 650 mg 8 hr tablet Take 1 tablet (650 mg total) by mouth every 8 (eight) hours as needed for pain. Active ferrous sulfate 325 (65 FE) MG tablet Take 1 tablet (325 mg total) by mouth in the morning.Active lisinopriL (PRINIVIL,ZESTRIL) 10 mg tablet Take 1 tablet (10 mg total) by mouth in the morning.Active dilTIAZem HCL in NaCl,iso-osm 100 mg/100 mL (1 mg/mL) solution dilTIAZem HClActive flecainide (TAMBOCOR) 100 mg tablet Take 1 tablet (100 mg total) by mouth in the morning and 1 tablet (100 mg total) before bedtime.Active DILT-XR 180 mg 24 hr capsule Take 1 capsule (180 mg total) by mouth in the morning. Discontinued Active Problems ProblemNoted DateDiagnosed DateStatus post total hip replacement, right 09/01/2025Ischial bursitis of left side07/30/2023rimary osteoarthritis of left hip01/29/2023 Overview (01/29/2023): Added automatically from request for surgery [id number] Lumbosacral spondylosis without wmvodhnhou15/03/2020 Overview (07/28/2020): Added automatically from request for surgery [id number] Afib07/10/2017BPH (benign prostatic hyperplasia)07/10/2017Restless leg syndrome 07/10/2017Sleep apnea07/10/2017 Overview (07/10/2017): instructed to bring CPAP to hospital Degenerative joint disease of pelvic jwducu9904/04/2017 Resolved Problems ProblemNoted DateDiagnosed DateResolved DatePrimary osteoarthritis of right hip Encounters DateTypeDepartmentCare QumkJepxzhhcqou99/08/2025 10:00 AM EDTOffice Visit [facility] [address] [place] [address] Schuyler Ambrocio MD Primary osteoarthritis of left hip (Primary Dx); Status post total hip replacement, right09/01/2025 9:41 AM EDT - 09/01/2025 11:59 PM EDTHospital Encounter [facility] [address] [place] [phone] Left hip pain Discharge Disposition: Home08/30/20255524Zkbbph12/22/2025Orders Only [facility] [address] [place] [address] Jennifer Gacsa CMA Left hip pain (Primary Dx)07/14/2025 10:15 AM EDTOffice Visit [facility] [address] [place] [address] Ventura Watson DO Chronic epididymitis (Primary Dx)07/14/20252455Ykjegv98/08/2025 1:50 PM EDTAncillary Procedure [facility] [address] [place] [address] Painfrom Last 3 Months Family History Medical HistoryRelationNameCommentsCancerFatherArthritisMotherRuthAsthmaMother RuthBreast cancerMotherRuthCancerMotherRuthHeart diseaseMotherRuthAnesthesia problemsNeg HxRelationNameStatusCommentsFatherDeceasedMotherRuthAlive Social History Tobacco UseTypesPacks/DayYears UsedDateSmoking Tobacco: NeverSmokeless Tobacco: Never Tobacco Cessation:Counseling Given: Not Answered Alcohol UseStandard Drinks/WeekCommentsYes0 (1 standard drink = 0.6 oz pure alcohol)One drink per weekChildcareAnswerDate DqypnqvxFhgxtdmhoTuynhct11/12/2019 EmploymentAnswerDate EazcppbzQpkejkkrcsWfpjvxz78/12/2019Hunger ScreeningAnswer Date RecordedWithin the past 12 months we worried whether our food would run out before we got money to buy more.Never True10/07/2024Within the past 12 months the food we bought just didn't last and we didn't have money to get more.Never True10/07/2024urpose - LifeAnswerDate RecordedPurpose and direction in life Lbcaygh3601/05/2021ex and Gender InformationValueDate RecordedSex Assigned at DffsrYxiw89/17/2020 1:17 PM ESTLegal PpcHrfv5806/30/2015 11:47 AM EDTGender CkaepkxhBhjn90/17/2020 1:17 PM ESTSexual DatectsxdamDqknkros71/17/2020 1:17 PM EST Last Filed Vital Signs Vital SignReadingTime TakenCommentsBlood Vecdqwlw409/6810/07/2024 1:39 PM EST Ltmby524510/07/2024 1:39 PM SXTLdylsqenvax88.8 ??C (96.4 ??F)08/16/2023 8:18 AM EDTRespiratory Kxph5118 9:01 AM EDTOxygen Bawawxwecs79%10/07/2024 1:39 PM ESTInhaled Oxygen Concentration--Lqfapr438.5 kg (250 lb 3.2 oz)09/01/2025 9:43 AM YNZEdgglr415 cm (6' 2 )09/01/2025 9:43 AM EDTBody Mass Index32.12 09/01/2025 9:43 AM EDT Plan of Treatment DateTypeDepartmentCare Team (Latest Contact Info)Uuetdpylgod82/28/2025 8:40 AM EDTOffice Visit [facility] [address] [place] [phone] Adri Núñez, EROSION CONTROL COORDINATOR-STRAP BUCKLER MACHINE [address] [place] [address] 09/23/2025 2:45 PM EDTProcedure visit [facility] [address] [place] [address] Tavares Eng PA [address] [facility] [place] [address] 12/06/2025 9:00 AM ESTOffice Visit [facility] [address] [place] [address] Schuyler Ambrocio MD [address] [facility] [place] [address] Health MaintenanceDue DateLast TycoLctkvsnlEwbzdjqjzqj1950Depression Cueruistx11/21/1964Adult BMI Follow Up Plan1970Fall Risk Screening 2017COVID-19 Vaccine ( season), 03/22/2021, 03/01/2021dult BMI Wngkeksnb82Tobacco Oqjgitvst97/08/2026 09/01/2025DTaP,Tdap and Td Vaccines (2 - Tdap)Zoster (Shingles) BzveaakLrkeactzf55/14/2018, 03/25/2018Influenza VaccineCompleted 08/27/2025, 08/09/2024, 08/22/2023, Additional history exists Goals GoalPatient Goal TypeAssociated ProblemsRecent ProgressPatient-Stated?Author Improve mobility Poly Gray, RN Note: Evaluation of progress towards goal: Maximize work with PT at discharge to strengthen R hip Medical Devices ImplantedTypeAreaManufacturerDevice IdentifierShelf Expiration DateModel / Serial / LotMesh Brd Perfix Plug Med Rpl 42092 Rpl [id number] - [id number] - [id number] Implanted:Qty: 1 on 09/23/2018 by Ventura Watson DO at [facility]/A: KimlqXJXWH53/30/[id number] / [id number] / [id number] Brd Preshape Hawkins 3x5 Rpl [id number] - [id number] - [id number] Implanted:Qty: 1 on 09/23/2018 by Ventura Watson DO at [facility]/A: HjgfypduwMMFCH73/30/[id number] / [id number] / [id number]:13.7 cm x 5.9 cm cut to fit defectLinr Actb 36mm F Ntrl E1 Clr - [id number] Implanted:Qty: 1 on 07/10/2017 by Schuyler [facility]rocio MD at [facility] ImplantRight: HipBiomet [id number] / / [id number] Fem 36mm Opt G7 Blx D Hip Rpl 650-2579 - [id number] Implanted:Qty: 1 on 07/10/2017 by Schuyler Ambrocio MD at [facility] ImplantRight: HipBiomet [id number] / / [id number] Fem Opt +3mm Tpr Hip Blx D Rpl 650-8107 - [id number] Implanted:Qty: 1 on 07/10/2017 by Schuyler Ambrocio MD at [facility] ImplantRight: HipBiomet [id number] / / [id number] Fem 125mm 133d 20 Hi Os - [id number] Implanted:Qty: 1 on 07/10/2017 by Schuyler Ambrocio MD at [facility] ImplantRight: HipBiomet [id number] / / [id number] RecorderShell Implanted:Qty: 1 on 07/10/2017 by [facility] [id number] / / [id number]fryzGwizwy IdentifierShelf Expiration DateModel / Serial / LotStm Fem 119mm 133d 17 Hi Os - [id number] Implanted:Qty: 1 Explanted:Qty: 1 on 07/10/2017 at [facility] ImplantRight: UdmQxlwuq76/22/[id number] / / [id number] Procedures Procedure NamePriorityDate/TimeAssociated DiagnosisCommentsXR HIP LT 2-3 VIEWS W OR WO COFJNTTzmyhys13/08/2025 9:50 AM EDT Left hip pain US XWRHHCUEqtjagc41/08/2025 1:50 PM EDT Pain from Last 3 Months Results * X-ray hip left 2-3 views with or without pelvis (09/01/2025 9:50 AM EDT) Anatomical RegionLateralityModalityLower Extremities, MSK, HipLeftComputed RadiographySpecimen (Source)Anatomical Location / LateralityCollection Method / VolumeCollection TimeReceived Time09/01/2025 1:26 PM EDT Narrative 09/01/2025 1:27 PM EDT XR HIP LT 2-3 VIEWS W OR WO PELVIS Left hip pain Findings: There is grossly no fracture or destructive lesion. Impression: * ??No acute findings. Severe arthritis left hip bone on bone which appear slightly worse than 2021 * ??Right hip prosthesis shows no acute findings within limitations of frontal view only. * ??Consider MRI if you suspect occult process. Finalized by Eddie Meeks MD on 09/01/2025 1:27 PM Procedure Note Eddie Meeks MD - 09/01/2025 XR HIP LT 2-3 VIEWS W OR WO PELVIS Left hip pain Findings: There is grossly no fracture or destructive lesion. Impression: * No acute findings. Severe arthritis left hip bone on bone which appearslightly worse than June 21, 2022 * Right hip prosthesis shows no acute findings within limitations offrontal view only. * Consider MRI if you suspect occult process. Finalized by Eddie Meeks MD on 09/01/2025 1:27 PM Authorizing ProviderResult TypeResult StatusSchuyler Ambrocio MDIMG DIAGNOSTIC IMAGING ORDERABLESFinal Result * Ultrasound scrotum (07/02/2025 1:50 PM EDT)Specimen (Source)Anatomical Location / LateralityCollection Method / VolumeCollection TimeReceived Time Narrative Authorizing ProviderResult TypeResult StatusScanning Provider ExternalIMG US ORDERABLESFinal Result from Last 3 Months Insurance * Guarantor: Oscar ManuelAccount TypeRelation to PatientDate of PhoneBilling TxuunrkOslvrxAlnp1950 [address] [place] [address] Care Teams Team MemberRelationshipSpecialtyStart DateEnd Date [place] Gomes MD PCP - GeneralFamily Vyeebvbm62/13/24
--- OUTSIDE RECORDS SUMMARY | 2025-09-20 12:52 | XMS_ITS | Clinical Summary ---
Author Organization [facility] Address [address] [facility] [place] [address] Care Team Providers Care Occupational Hygienist Name Role Phone Jennifer Chapin MD Primary Care Provider [phone] Jennifer Chapin MD Unavailable Allergies No known active allergies Medications MedicationSigDispense QuantityRefillsLast FilledStart DateEnd DateStatus famotidine (Pepcid) 20 MG tablet Take 20 mg by mouth in the morning and 20 mg before bedtime.Active finasteride (Proscar) 5 MG tablet Take 5 mg by mouth Daily09/05/2022ctive glucosamine-chondroitin 500-400 MG tablet Take 1 tablet by mouth in the morning and 1 tablet in the evening.Active tamsulosin (Flomax) 0.4 MG 24 hr capsule Take 0.4 mg by mouth DailyActive ferrous sulfate 325 (65 Fe) MG tablet Take 325 mg by mouth in the morning. Take with meals.Active doxepin (SINEquan) 50 MG capsule Indications:Anxiety disorder, unspecified typeTAKE 1 CAPSULE AT BEDTIME 90 capsule 5Active rOPINIRole (Requip) 2 MG tablet Indications:Restless leg syndromeTAKE 1 TABLET AT BEDTIME 90 tablet 5Active dilTIAZem CD (Cartia XT) 240 MG 24 hr capsule 5Active acetaminophen (Tylenol 8 Hour) 650 MG ER tablet Take 650 mg by mouth every 8 (eight) hours if neededActive rivaroxaban (Xarelto) 20 MG tablet Take 20 mg by mouth/ctive lisinopril 10 MG tablet Take 10 mg by mouth Daily as /28/2025Active Active Problems ProblemNoted DateDiagnosed DateInguinal pain, right06/30/2025 Assessment & Plan (06/30/2025 8:37 AM EDT): Pain for months and recurrent epididymitis. Concerned of hernia and check US. If normal but still discomfort recommend exam by general surgeon to assess for hernia. H/O aujydswxxsaq91/06/2025Medicare annual wellness visit, orbjrxakou74/23/2024 Assessment & Plan (03/29/2025 2:43 PM EDT): [...] therapy. Encounter for long-term (current) use of olbrdckonkb87/23/2024Screening PSA (prostate specific antigen)03/17/2024Obesity (BMI 30-39.9)03/17/2024PH without urinary ccptofgqmxz22/12/9382Vmxvszkfghiz52/12/2024Gastroesophageal reflux disease without xqqvkgegxmc63/12/2024Insomnia, gknzixgzxgh20/12/2024Obstructive sleep apnea02/04/20240188Pqwlhpkohaf11/12/2024rimary osteoarthritis of right hip 02/04/2024estless legs02/04/2024Spondylosis of lumbar region without myelopathy or duhlzjemfcmam58/12/8929Ujjsaeledzisuf54/12/2024 Resolved Problems ProblemNoted DateDiagnosed DateResolved DatePostural dizziness with near syncope SVT (supraventricular tachycardia)03/12/180530/ Transient global pawanrl95 Assessment & Plan (02/04/2024 4:10 PM EDT): Recent episode and resolved. 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 Check MRI to assess for CVA. If CVA will need to start statin and refer to neurology. Continue aspirin. Encounters DateTypeDepartmentCare SoihOxjrsfukslr72/12/2025Orders Only [facility] [address] [place] [address] Jennifer Chapin MD 07/05/2025Results Follow-Up [facility] [address] [place] [address] Jennifer Chapin MD [place] rdpgxin6707/02/2025linisync Result Encounter [facility] External Department Unsolicited Jennifer Chapin MD 06/30/2025 7:45 AM EDTOffice Visit [facility] [address] [place] [address] Jennifer Chapin MD Inguinal pain, right (Primary Dx); H/O yojfesbmyshh65/06/2025amboo flowsheet [facility] [address] [place] [address] Jennifer Chapin MD from Last 3 Months Family History Medical HistoryRelationNameCommentsKidney cancerFatherBreast cancerMotherHeart diseaseMotherSkin cancerSisterMelanomaNeg HxRelationNameStatusCommentsFather DeceasedMotherDeceasedSister Social History Tobacco UseTypesPacks/DayYears UsedDateSmoking Tobacco: NeverSmokeless Tobacco: Never Tobacco Cessation:Counseling Given: Not Answered Alcohol UseStandard Drinks/WeekCommentsNot Currently0 (1 standard drink = 0.6 oz pure alcohol)caffeine 1-2 cups per daySocial Connection and Isolation Panel AnswerDate RecordedIn a typical week, how many times do you talk on the phone with family, friends, or neighbors?Once a week03/11/2024How often do you get together with friends or relatives?Once a week02/03/2024How often do you attend confucianism or cheondoism services?More than 4 times per year02/03/2024o you belong to any clubs or organizations such as confucianism groups, unions, fraternal or athletic groups, or school groups?Yes02/03/2024How often do you attend meetings of the clubs or organizations you belong to?More than 4 times per year02/03/2024 Are you , , , , never , or living with a partner?Dwylcff6802/03/2024UDIT-CAnswerDate RecordedQ1: How often do you have a drink containing alcohol?2-4 times a month02/03/2024Q2: How many drinks containing alcohol do you have on a typical day when you are drinking?1 or 2 02/03/2024Q3: How often do you have six or more drinks on one occasion?Never 02/03/2024Overall Financial Resource Strain (CARDIA)AnswerDate RecordedHow hard is it for you to pay for the very basics like food, housing, medical care, and heating?Not hard at all02/03/2024HQ-2AnswerDate RecordedPatient Health Questionnaire-2 Xizrn226[facility] [place] [facility] Occup[facility] - Occupational Stress QuestionnaireAnswerDate RecordedDo you feel stress - tense, restless, nervous, or anxious, or unable to sleep at night because yourmind is troubled all the time - these days?Not at all02/03/2024Exercise Vital SignAnswer Date RecordedOn average, how many days per week do you engage in moderate to strenuous exercise (like a brisk walk)?3 days02/03/2024On average, how many minutes do you engage in exercise at this level?60 min02/03/2024Hunger Vital SignAnswerDate RecordedWithin the past 12 months, you worried that your food would run out before you got the money to buymore.Never true02/03/2024Within the past 12 months, the food you bought just didn't last and you didn't have money to get more.Never true02/03/2024RAPARE - TransportationAnswerDate RecordedIn the past 12 months, has lack of transportation kept you from medical appointments or from getting medications?No02/03/2024In the past 12 months, has lack of transportation kept you from meetings, work, or from getting things needed for daily living?No02/03/2024Housing Stability Vital SignAnswerDate RecordedIn the last 12 months, was there a time when you were not able to pay the mortgage or rent on time?No02/03/2024In the last 12 months, how many places have you lived?In the last 12 months, was there a time when you did not have a steady place to sleep or slept in [facility] (including now)?No 02/03/2024Sex and Gender InformationValueDate RecordedSex Assigned at BirthNot on fileLegal NnuNatw3802/06/2023 7:14 PM EDTGender IdentityNot on fileSexual OrientationNot on file Last Filed Vital Signs Vital SignReadingTime TakenCommentsBlood Svvchrua223/6208 7:57 AM EDT Fgxyb864906/30/2025 7:57 AM KUTUayrycesrlg67.4 ??C (97.5 ??F)06/30/2025 7:57 AM EDTRespiratory Bkep135306/30/2025 7:57 AM EDTOxygen Oeclyzqscd10%06/30/2025 7:57 AM EDTInhaled Oxygen Concentration--Whwuwf469 kg (249 lb)06/30/2025 7:57 AM EDT Wmbpgz859 cm (6' 2 )06/30/2025 7:57 AM EDTBody Mass Index31.9706/30/2025 7:57 AM EDT Plan of Treatment DateTypeDepartmentCare Team (Latest Contact Info)Dhjomfygfis12/04/2025 3:05 PM ESTOffice Visit [facility] [facility] [address] [place] [address] Miriam Carpenter MD [address] [place] [address] Health MaintenanceDue DateLast DoneCommentsCT Odwmkcrhchar1952FIT-DNA 1950FIT1950FOBT03/15/19524954Mqhqjrqhpbrua1952Influenza Vaccine (#1)509/, 08/22/2023, 09/02/2022, Additional history exists Medicare Annual Wellness (AWV)605/0451Wdpgefmlfze55/16/2033 04/09/2023, 3Colorectal Cancer Rsuxbxpkz89/16/2033Pneumococcal Vaccine: 65+ SrsnnKcthazawa88/20/2021, 08/05/2020 Procedures Procedure NamePriorityDate/TimeAssociated DiagnosisCommentsUS TVXKQFN4207/02/2025 2:53 PM EDT from Last 3 Months Results * US scrotum (07/02/2025 2:53 PM EDT)Anatomical RegionLateralityModalityBody UltrasoundSpecimen (Source)Anatomical Location / LateralityCollection Method / VolumeCollection TimeReceived Time07/02/2025 2:53 PM EDT Narrative 07/02/2025 2:55 PM EDT [facility] ?[address] ? [place] [address] ? Ultrasound Report ? Signed ? Patient: KAVITA AUSTIN ?MR#: [id number] ?? : 1950 ?Acct:[id number] ?? Age/Sex: 75 / M ?ADM Date: 07/02/25 ?? Loc: US ? Attending Dr: Jennifer Chapin M.D. ? Ordering Physician: Jennifer Chapin M.D. ?? Date of Service: 07/02/25 ?? Procedure(s): US scrotum ?? Accession Number(s): [id number] ? cc: Jennifer Chapin M.D. ? [facility] ? [address] ? [place] [address] ? Patient Name: ?? KAVITA AUSTIN ? MRN: [id number] ? date: 1950 ?Sex: M ?? Assigned Patient Location: US ?? Current Patient Location: US ?? Accession/Order Number: [id number] ?? Exam Date: 07/02/2025 ??14:51 ?Report Date: 07/02/2025 ??14:53 ? At the request of: ?? JENNIFER ??TAVARES ? Procedure: ??US scrotum ? Scrotal ultrasound ? Reason for exam: Right testicular pain for 6 months. ? Comparison: none ? Technique: Grayscale, color Doppler and spectral Doppler images of the scrotal ?? contents were obtained. ? Findings: ? Right testicle measures 4.8 x 2.4 x 3.5 cm. ??No evidence of testicular mass or ?? microlithiasis. ??Normal arterial and venous Doppler waveforms. ??4 mm ?? epididymal cyst.. ??Small hydrocele. ??Right-sided varicocele. ? Left testicle measures 4.8 x 2.3 x 3.3 cm. ??No evidence of significant mass or ?? microlithiasis. ??Normal arterial and venous Doppler waveforms. ??Epididymal ?? cyst measuring 8 mm. ??Small hydrocele. ??Left-sided varicocele. ? US/US scrotum ?? Impression: ? No evidence of testicular mass, torsion, orchitis or epididymitis. ? Bilateral varicoceles. ? Small bilateral hydroceles. ? Impression dictated by: Tariq Lozada Jr., D.O. ??07/02/2025 2:53 PM ? Dictation Location: [facility] ? Electronically authenticated by: [id number] ??Y ?? Date: 07/02/2025 ??14:53 ? Dictated By: ?Tariq Lozada M.D. ? Signed By: ?07/02/25 1455 ? DD/ 1453 ? TD/TT: ? Pcb Designer: Procedure Note Radiology, Radiologist, - 07/02/2025 [place] [address] Ultrasound Report Signed Patient: KAVITA AUSTIN AMR#: [id number] : 1950cct:[id number] Age/Sex: 75 / MADM Date: 07/02/25 Loc: US Attending Dr: Jennifer Chapin M.D. Ordering Physician: Jennifer Chapin M.D. Date of Service: 07/02/25 Procedure(s): scrot Accession Number(s): [id number] cc: Jennifer Chapin M.D. [address] [id number] Patient Name: KAVITA AUSTIN MRN: [id number] date: 1950 Sex: M Assigned Patient Location: US Current Patient Location: Accession/Order Number: [id number] Exam Date: 07/02/2025 14:51 Report Date: 07/02/2025 14:53 At the request of: JENNIFER CHAPIN MD Procedure: US scrotum Scrotal ultrasound [...] Jr., D.O. 07/02/2025 2:53 PM Dictation Location: [place] [address] Electronically authenticated by: [id number] Y Date: 4:53 Dictated By: Tariq Lozada M.D. Signed By:07/02/25 1455 DD/ 1453 TD/TT: Pcb Designer: Authorizing ProviderResult TypeResult StatusJennifer Chapin MDCHOCTAW NATION [facility] [place] [facility] PROCEDURES Final Result from Last 3 Months Insurance Care Teams Team MemberRelationshipSpecialtyStart DateEnd Date Jennifer Chapin MD [facility] - [facility]02/04/24 Jennifer Chapin MD [address] [place] [address] PCP - Aet02/24/24
--- OUTSIDE RECORDS SUMMARY | 2025-09-20 13:04 | XMS_ITS | CCD ---
Author Organization [facility] Care Team Providers Care Door Clamp Operator Name Role Phone [place] Primary Care Physician [phone] DO Miguel Astorga Attending Provider [phone] MD [place] Primary Care Provider MD Sakina Carpenter Attending Provider [phone] MODESTO ROCHE Attending Unavailable MODESTO ROCHE Admitting [...] NADERER, DR NORTH Hines Primary Care Unavailable NADERELisa, DR NORTH Hines Attending Unavailable NADERER, DR NORTH Hines Admitting Unavailable NADERER, DR NORTH Hines Primary Care Unavailable BRAYDON, DR MARÍA Danielle Consulting Unavailable NADERER, DR NORTH Hines Consulting Unavailable ASHANTIANDERBARBIE Attending Unavailable ASHANTIANDER, BARBIE Chávez Admitting Unavailable NADERER, DR NORTH Hines Primary Care Unavailable TAMDELLA ., MATTHIAS Attending Unavailable TAMLYPierre .MATTHIAS Admitting Unavailable NADERER, DR NORTH Hines Primary Care Unavailable JOCELYN LOVE Consulting Unavailable MATTHIAS DE DIOS Consulting Unavailable ASMITA CLARK Consulting Unavailable HIGHLANDER, BARBIE Chávez Attending Unavailable AJITH, BARBIE Chávez Admitting Unavailable NADERER, DR NORTH Hines Primary Care Unavailable WHITESBURG, DR MARÍA Danielle Consulting Unavailable BARBIE CANSECO Consulting Unavailable BLAKE LAW Tam Consulting Unavailable LOUANN ALVAREZ Consulting Unavailable UMAIR TRAN Consulting Unava ROBBY Wolff Consulting Unavailable NADERER, DR NORTH Hines Primary Care Unavailable KIP TamMORIS Consulting Unavailabl e REINECK, DR ESAU Mccauley [...] MODESTO Consulting Unavailable VERHOCECILIA WILSON Attending Unavailable NADERELisa, NORTH Referring Unavailable NADERER, NORTH Primary Care Unavailable VERCECILIA HERNANDEZ Attending Unavailable VERHOCECILIA WILSON Referring Unavailable NADERER, NORTH Primary Care Unavailable North Chapin MD Primary Care Provider [place] MD Unavailable North Chapin MD Primary Care Provider NORTH CHAPIN Primary Care Unavailable ENRRIQUE WALDROP Attending Unavailable STEPENRRIQUE ELAINE Admitting Unavailable STEPENRRIUQE ELAINE Attending Unavailable ENRRIQUE WALDROP Admitting Unavailable NADERER, NORTH Hines Primary Care Unavailable JR. WALDROP GEORGE C Attending UnavailBUD Gonzalez Attending Unavailable NNEKA HERNANDEZ Attending Unavailable PETITTI, SAKINA Hines Attending Unavailable [...] Unavailable Naderer North RUSSELL Primary Care Provider KAVYA GERMAIN Attending Unavailable NADERER, NORTH Referring Unavailable NADERER, NORTH Primary Care Unavailable NADERER, NORTH Referring Unavailable NADERER, NORTH Primary Care Unavailable ESEQUIEL, Natali Gonzalez Attending Unavailable IRAHETA, Natali Gonzalez Attending Unavailable ESEQUIEL, Natali Gonzalez Attending Unavailable IRAHETA, Natali Gonzalez Attending Unavailable BEER, AMERICA Andrew Referring Unavailable NADERER, NORTH Primary Care Unavailable BEER, AMERICA Andrew Attending Unavailable NADERER, NORTH Referring Unavailable NADERER, NORTH Primary Care Unavailable CYN, LOYD Referring Unavailable BRENNAN, ROXANNE Referring Unavailable BRENNAN, ROXANNE Referring Unavailable BRENNAN, ROXANNE Referring Unavailable SHERWIN, MIKE Attending Unavailable BRENNAN, ROXANNE Attending Unavailable BRENNAN, ROXANNE Attending Unavailable BRENNAN, ROXANNE Referring Unavailable BRENNAN, ROXANNE Referring Unavailable BRENNAN, ROXANNE Referring Unavailable BRENNAN, ROXANNE Referring Unavailable BRENNAN, ROXANNE Referring Unavailable CYN, LOYD Referring Unavailable BRENNAN, ROXANNE Referring Unavailable BRENNAN, ROXANNE Referring Unavailable Naderer North RUSSELL Primary Care Provider Isamar Dominguez APRN Attending Provider Isamar Dominguez Attending Unavailabl e Isamar Dominguez Admitting Unavailabl e Allergies Allergy ClassificationReported Allergen(s)Allergy TypeDate of OnsetReaction(s) Facility (2 sources)No Known Medication Allergies; Translations: [No Known Medication Allergies]Propensity to adverse reactions to drug (disorder)[facility] Medications Current Medications MedicationDrug Class(es)DatesSig (Normalized)Sig (Original)8 hr acetaminophen 650 mg extended release oral tablet (20 sources)take 1 tablet by mouth every eight hours as needed for pain acetaminophen (TYLENOL ARTHRITIS) 650 mg 8 hr tablet Take 1 tablet (650 mg total) by mouth every 8 (eight) hours as needed for pain. Activeacetaminophen 325 mg / HYDROcodone bitartrate 5 mg oral tablet (1 source)Opioid AgonistStart: 02-28-2025 End: 64-45-8885bmjv 1 tablet by mouth every six hours for painHYDROcodone- acetaminophen (Byron) 5-325 MG tablet Indications: Internal derangement of left knee Take 1 tablet by mouth every 6 (six) hours if needed for severe pain for up to 3 days 12 tablet 02/28/2025 03/03/2025 ActiveAspirin (5 sources)Platelet Aggregation Inhibitor, Nonsteroidal Anti-inflammatory Drug Start: 08-54-1793aaqbjur 325 mg, Refills(s) 0 Start Date: 10/28/19 Status: Ordered End: 38-11-2443jvli 1 tablet by mouth in the morningaspirin 325 mg tablet Take 1 tablet (325 mg total) by mouth in the morning. 07/10/2025 Discontinued cholecalciferol 0.05 mg oral capsule (20 sources)Vitamin DStart: 11-03-2022 End: 26-25-7150gygi 1 capsule by mouth in the morningRA Vitamin D-3 50 MCG (2000 UT) capsule Take 2,000 Units by mouth in the morning. 11/03/2022 03/24/2025 Discontinuedchondroitin sulfates 400 mg / glucosamine hydrochloride 500 mg oral tablet (20 sources)take 1 tablet by mouth in the morningglucosamine-chondroitin 500-400 mg tablet Take 1 tablet by mouth in the morning and 1 tablet beforebedtime. Activetake 1 tablet by mouth in the morningglucosamine-chondroitin 500-400 MG tablet Take 1 tablet by mouth in the morning and 1 tablet in theevening. Active ciprofloxacin 500 mg oral tablet (11 sources)Quinolone AntimicrobialStart: 10-12-2024 End: 01-04-7236wdiq 1 tablet by mouth every twelve hoursCipro 500 mg Tab 500 mg = 1 tab(s), Oral, q12hr, X 30 day(s), # 60 tab(s), Refills(s) 0, Pharmacy: [id number], 189, cm, 10/12/24 15:38:00 EST, Height/Length Dosing, 107, kg, 10/12/24 15:38:00 EST, Weight Dosing Start Date: 10/12/24 Stop Date: 11/11/24 Status: Ordered End: 68-40-7733emso 1 tablet by mouth every twelve hoursciprofloxacin (Cipro) 500 MG tablet Take 500 mg by mouth every 12 (twelve) hours 12/24/2024 Disconti nuedclindamycin 300 mg oral capsule (2 sources)Lincosamide AntibacterialStart: 22-84-3026BOONM MULTI-VITAMIN ORAL (4 sources)take 1 tablet by mouth once daily in the morningDAILY MULTI-VITAMIN ORAL Take 1 tablet by mouth in the morning. Activetake 1 tablet by mouth once dailyDAILY MULTI-VITAMIN ORAL Take 1 tablet by mouth daily. Tonvvw89 hr dilTIAZem hydrochloride 240 mg extended release oral capsule (20 sources)Calcium Channel BlockerStart: 07-93-8838szrq 1 capsule by mouth every twenty-four hoursStart: 39-19-0059lzvTKBLxl CD (Cartia XT) 240 MG 24 hr capsule 12/17/2024 ActiveStart: 28-95-5060fdgt 1 capsule by mouth once daily Start: 83-38-5696irqq 180 mg by mouth once dailyDiltiazem Hcl Active 180 MG PO Daily April 19, 2022 3:23pmStart: 69-87-0785Lqryqlfhh Diltiazem Start Date: 10/28/19 Status: OrderedStart: 06-10-2018 End: 50-95-6394kias 1 capsule by mouth every twenty-four hours in the morning DILT-XR 180 mg 24 hr capsule Take 1 capsule (180 mg total) by mouth in the morning. 06/10/2018 09/01/2025 DiscontinuedDilTIAZem (Eqv-Dilacor XR) 180 mg/24 hours oral capsule, extended release (2 sources)Start: 04-27-4763CkdZLBCyt (Eqv-Dilacor XR) 180 mg/24 hours oral capsule, extended release Refills(s) 0 Start Date: 7/31/23 Status: Ordered dilTIAZem HCL in NaCl,iso-osm 100 mg/100 mL (1 mg/mL) solution (1 source)dilTIAZem HCL in NaCl,iso-osm 100 mg/100 mL (1 mg/mL) solution dilTIAZem HCl Activedoxepin hydrochloride 50 mg oral capsule (20 sources)Tricyclic AntidepressantStart: 75-00-6963qeietmw 25 mg Cap Refills(s) 0 Start Date: 08/21/21 Status: OrderedStart: 08-23-2020 End: 72-79-8832svgv 1 capsule by mouth once daily at bedtimeEye Promise (3 sources)Start: 79-33-5889lopo 1 capsule by mouth once dailyEye Promise Active 1 CAP PO Daily April 19, 2022 3:23pmStart: 42-98-9167zods 1 capsule by mouth once dailyEye Promise Active 1 CAP PO Daily April 19, 2022 12:00amEye Promise 1 cap (2 sources)Start: 36-63-5855edhb 1 capsule by mouth once dailyStart: 04-19-2022 take 1 capsule by mouth once dailyEye Promise 1 cap Active 1 CAP PO Daily April 19, 2022 12:00am eye health Complies with drug therapyfamotidine 20 mg oral tablet (20 sources)Histamine-2 Receptor Antagonisttake 1 tablet by mouth in the morning, then take 1 tablet by mouth at bedtimefamotidine (PEPCID) 20 mg tablet Take 1 tablet (20 mg total) by mouth in the morning and 1 tablet (20 mg total) before bedtime. Activeferrous sulfate 325 mg oral tablet (20 sources)take 1 tablet by mouth in the morningferrous sulfate 325 (65 FE) MG tablet Take 1 tablet (325 mg total) by mouth in the morning. Activefinasteride 5 mg oral tablet (20 sources)5-alpha Reductase InhibitorStart: 06-17-2018 End: 19-77-0111jozk 1 tablet by mouth once dailyflecainide acetate 100 mg oral tablet (3 sources)AntiarrhythmicStart: 70-41-1997gkyo 1 tablet by mouth in the morning, then take 1 tablet by mouth at bedtimeflecainide (TAMBOCOR) 100 mg tablet Take 1 tablet (100 mg total) by mouth in the morning and 1 tablet (100 mg total) before bedtime. ActivelevoFLOXacin 750 mg oral tablet (1 source)Quinolone AntimicrobialStart: 02-22-2025 End: 63-54-3614gqid 1 tablet by mouth once dailylevoFLOXacin (Levaquin) 750 MG tablet Indications: Upper respiratory tract infection, unspecified type Take 1 tablet (750 mg) by mouth Daily for 7 days 7 tablet 02/22/2025 03/01/2025 Active lisinopril 10 mg oral tablet (20 sources)Angiotensin Converting Enzyme InhibitorStart: 95-57-0432Tuoga: 87-59-5599knwz 1 tablet by mouth once dailylisinopril 10 MG tablet Take 10 mg by mouth Daily as directed 04/21/2025 ActiveStart: 12-15-2024 End: 00-67-5306lnnrttvsck 5 MG tablet Take 5 mg by mouth 12/15/2024 06/30/2025 Discontinuedpotassium citrate 99 mg oral tablet (5 sources)Start: 61-45-4826qsji 1 capsule by mouth at bedtimerivaroxaban 20 mg oral tablet (20 sources)Factor Xa InhibitorStart: 04-21-2025 End: 96-09-6641Mmrrp: 10-12-2024 End: 06-60-7619Rcapfye 20 mg oral tablet 20 mg = 1 tab(s), Refills(s) 0 Start Date: 10/12/24 Status: OrderedrOPINIRole 2 mg oral tablet (20 sources)Nonergot Dopamine AgonistStart: 04-19-2022 End: 98-86-3117dqur 1 tablet by mouth once daily at bedtimeStart: 10-28-2019 ropinirole 1 mg, Oral, Refills(s) 0 Start Date: 10/28/19 Status: Ordered sildenafil 100 mg oral tablet (1 source)Phosphodiesterase 5 InhibitorStart: 22-90-5114siuf 1 tablet by mouth once dailyViagra 100 mg Tab 100 mg = 1 tab(s), Oral, Daily, Take 1 hour prior to sexual relations, # 30 tab(s), Refills(s) 2, Pharmacy: [address], 189, cm, 05/07/22 14:58:00 EDT, Height/Length Dosing, 129, kg, 05/07/22 14:58:00 EDT, Weight Dosing Start Date: 05/07/22 Status: Orderedtadalafil 20 mg oral tablet (2 sources)Phosphodiesterase 5 InhibitorStart: 41-40-1727anjv 1 tablet by mouth once dailyCialis 20 mg Tab 20 mg = 1 tab(s), Oral, Daily, # 39 tab(s), Refills(s) 2, Pharmacy: [id number], 189, cm, 05/07/22 14:58:00 EDT, Height/Length Dosing, 107, kg, 06/24/23 15:49:00 EDT, Weight Dosing Start Date: 06/24/23 Status: Orderedtamsulosin hydrochloride 0.4 mg oral capsule (20 sources)alpha-Adrenergic BlockerStart: 60-40-2987eawz 1 capsule by mouth once dailytake 1 capsule by mouth every twenty-four hours in the morning tamsulosin (Flomax) 0.4 MG 24 hr capsule Take 0.4 mg by mouth in the morning. Active Completed/Discontinued Medications MedicationDrug Class(es)DatesSig (Normalized)Sig (Original)LORazepam 0.5 mg oral tablet (9 sources)BenzodiazepineStart: 11-30-2024 End: 04-08-1424frky 1 tablet by mouth every hourLORazepam (Ativan) 0.5 MG tablet Indications: Internal derangement of left knee Take 1 tablet (0.5 mg) by mouth See administration instructions for 1 dose take by mouth 1 hour prior to MRI 1 tablet 12/14/2024 12/24/2024 Discontinued1 ml methylPREDNISolone acetate 40 mg/ml injection (4 sources)CorticosteroidStart: 11-09-2024 End: 45-94-4152clqgfgKQNWDKHgensl acetate (DEPO-Medrol) injection 40 mgStart: 11-09-2024 End: 84-75-021593 mg, Intra-articular, Once PRN Procedure, Starting on 11/09/24 at 1153, For 1 doseomeprazole 40 mg delayed release oral capsule (2 sources)Proton Pump InhibitorStart: 09-21-2020 End: 83-32-8382smcn 1 capsule by mouth once daily in the morningomeprazole (PriLOSEC) 40 mg capsule take 1 capsule by mouth every morning PRIOR TO BREAKFAST 09/21/2020 07/14/2025 Discontinued (Therapy completed) Problems Active Problems Problem ClassificationProblemDateDocumented DateEpisodic/ChronicAbdominal hernia (1 source)Hernia of abdominal cavityOnset: 82-02-7368RhpvroauAyrijajgg pain (5 sources)Right inguinal pain; Translations: [Right lower quadrant pain]Onset: 941983-54-8202PatamxeuThxtuhce foot deformities (7 sources)Hallux rigidus, left foot; Translations: [Other hammer toe(s) (acquired), left foot]Onset: 83-02-9530EkmtkukYeziumm disorders (20 sources)Claustrophobia; Translations: [Claustrophobia]Onset: 02-04-2024 21-47-1864BajgcmxVkaqdwd dysrhythmias (20 sources)Atrial fibrillation; Translations: [Paroxysmal atrial fibrillation] Onset: 07-10-2017 Resolved: 440584-09-1744AonytimNfkbmbs dysrhythmias (2 sources)Palpitations; Translations: [Palpitations]Onset: 14-44-8863Eicctkux Disorders of lipid metabolism (20 sources)Hyperlipidemia, unspecified; Translations: [Dyslipidemia]Onset: 760067-97-7345XdujnqfLqqkaulmdi disorders (20 sources)Gastro-esophageal reflux disease without esophagitis; Translations: [Gastroesophageal reflux disease without esophagitis]Onset: 370297-89-6832 ChronicEssential hypertension (2 sources)Essential (primary) hypertension; Translations: [Essential (primary) hypertension]Onset: 77-46-4536AkugrxaOaaem valve disorders (1 source)Rheumatic disorders of both mitral and tricuspid valves; Translations: [RHEUMATIC D/O MITRAL TRICUSPID VALV]Onset: 08-06-7975GfvhwoyMdvrjcaaftp of prostate (20 sources)Benign prostatic hypertrophy with outflow obstruction; Translations: [Benign prostatic hyperplasia with lower urinary tract symptoms]Onset: 86-48-9725AcrywkxJjzhvbwrpagt conditions of male genital organs (8 sources)Chronic prostatitis; Translations: [Chronic prostatitis]Onset: 83-10-5973GcmkjrqYdoprvcmlhuw conditions of male genital organs (7 sources)Epididymitis; Translations: [Epididymitis]Onset: EpisodicJoint disorders and dislocations; trauma-related (7 sources)Derangement of left knee; Translations: [Unspecified internal derangement of left knee]96-97-5444FsjxhmpUhpva disorders and dislocations; trauma-related (1 source)Other tear of lateral meniscus, current injury, left knee, initial encounter; Translations: [Other tear of lateral meniscus, current injury, left knee, initial encounter]Onset: 20-48-0773GyfwfmgwXmxdahnko of unspecified nature or uncertain behavior (4 sources)Neoplastic disease; Translations: [Neoplasm of unspecified behavior of bone, soft tissue, and skin]37-68-4945OvdkpejjFjwsqwnmpbtwwa (20 sources)Unspecified osteoarthritis, unspecified site; Translations: [Osteoarthritis of right hip joint]Onset: 04-04-2017 Resolved: 633332-77-8405NijahrkIabqg aftercare (1 source)Other halfway (current) drug therapy; Translations: [OTH PRISON CURRENT DRUG THERAPY]Onset: 91-10-4857NztriuzfYwmaj circulatory disease (2 sources)Presence of other cardiac implants and grafts; Translations: [Presence of other cardiac implants and grafts]Onset: 69-92-5461ZdzvjsoTifdv connective tissue disease (2 sources)Presence of right artificial hip joint; Translations: [PRESENCE RIGHT ARTIFICIAL HIP JOINT]Onset: 50-68-7054MdrhemqFfbuj connective tissue disease (2 sources)History of total hip arthroplasty; Translations: [Presence of right artificial hip joint]Onset: 493859-65-2531RqiqxruWvqxx diseases of kidney and ureters (1 source)Urinary tract obstruction; Translations: [Other obstructive and reflux uropathy]Onset: 75-84-5161WgraxjctQsgby diseases of veins and lymphatics (4 sources)Mqnotrjnve88-65-4465YrvzwafdNxjxx hereditary and degenerative nervous system conditions (1 source)Restless legs syndrome; Translations: [RESTLESS LEGS SYNDROME]Onset: 73-50-8861HgiyzvkMnphu hereditary and degenerative nervous system conditions (20 sources)Restless legs; Translations: [Restless legs syndrome]Onset: 456303-42-5456IbsuonbVhufe injuries and conditions due to external causes (2 sources)Delayed healing of wound; Translations: [Other injury of unspecified body region, subsequent encounter]11-93-2524UingctymZxhbp injuries and conditions due to external causes (1 source)Other injury of unspecified body region, initial encounter; Translations: [Other injury of unspecified body region, initial encounter]Onset: 39-14-3420RklpnhgxHcowf male genital disorders (8 sources)Male erectile dysfunction, unspecified; Translations: [Erectile dysfunction]Onset: 50-38-0050WjmpdmuAfwin male genital disorders (4 sources)Xeozhlyuw65-34-9762NnmatarRxoyo male genital disorders (4 sources)Impotence of organic ziooep06-06-2909KsbdvzgPvcww male genital disorders (4 sources)Pain in -90-8491AcghrzkwMpavj male genital disorders (5 sources)H/O: male genital disorder; Translations: [Personal history of other diseases of male genital organs]Onset: 581406-81-3244ArnfugdlLfbjy non- epithelial cancer of skin (8 sources)History of malignant basal cell neoplasm of skin; Translations: [Personal history of other malignant neoplasm of skin]17-65-1587BarftfacTusfm non-traumatic joint disorders (13 sources)Pain in left knee; Translations: [Pain in joint, lower leg]Onset: 896207-22-3659KovhhdewLdpbr non-traumatic joint disorders (1 source)Knee painOnset: 00-48-4450FxprmptyJfnvg non-traumatic joint disorders (1 source)Hip pain; Translations: [Pain in left hip]65-64-5194TzpowpcwDltyh non- traumatic joint disorders (1 source)Pain in left hip; Translations: [Pain in left hip]Onset: 09-01-2025 EpisodicOther nutritional; endocrine; and metabolic disorders (1 source)Obesity, unspecified; Translations: [OBESITY UNSPECIFIED]Onset: 82-81-2024BsvsaojFnsvc nutritional; endocrine; and metabolic disorders (20 sources)Body mass index 30+ - obesity; Translations: [Obesity, unspecified] Onset: 762730-58-4032IctehpwJoivv screening for suspected conditions (not mental disorders or infectious disease) (20 sources)Patient encounter status; Translations: [Encounter for screening for malignant neoplasm of prostate]Onset: 35-73-320660345899-91-8690EgbzbeitMxhsi skin disorders (4 sources)Seborrheic keratosis; Translations: [Other seborrheic keratosis] 31-04-6901HlrhbkqoDnblh skin disorders (4 sources)Lentiginosis; Translations: [Other melanin hyperpigmentation] 52-78-7429DvknlpcfWrfcx skin disorders (4 sources)Actinic keratosis; Translations: [Actinic keratosis]08-13-2024 EpisodicResidual codes; unclassified (1 source)Obstructive sleep apnea (adult) (pediatric); Translations: [OBSTRUCTIVE SLEEP APNEA]Onset: 18-58-5064JsdoqazIhbcusto codes; unclassified (20 sources)Obstructive sleep apnea syndrome; Translations: [Obstructive sleep apnea (adult) (pediatric)]Onset: 131099-80-1435MlnlzypOvyymtbt codes; unclassified (4 sources)Sleep apnea; Translations: [Sleep apnea, unspecified]Onset: 469713-80-1375KellxkxHkmwfxzy codes; unclassified (8 sources)Family history of malignant neoplasm of kidney; Translations: [Family history of malignant neoplasmof kidney]Onset: 52-42-0262KupkjlsgZgiixivj codes; unclassified (4 sources)H/O: anticoagulant uhdfatk37-04-9980DxfofpemFpoekmdk codes; unclassified (4 sources)History of arthroscopy of knee joint; Translations: [Other specified postprocedural states]65-16-7013JifllekoCqrayoyu codes; unclassified (1 source)Pain, unspecified; Translations: [Pain, unspecified]Onset: 07-15-2025 EpisodicResidual codes; unclassified (1 source)PainOnset: 05-37-6860PxogyeraSkog and subcutaneous tissue infections (5 sources)Cellulitis of left knee; Translations: [Cellulitis of left lower limb]Onset: 86-27-0224NfkglnwzJcahqnjwkrs; intervertebral disc disorders; other back problems (20 sources)Lumbar spondylosis; Translations: [Spondylosis without myelopathy or radiculopathy, lumbar region]Onset: 383105-17-9499TnmzsekXlfjkae (1 source)Syncope and collapse; Translations: [SYNCOPE AND COLLAPSE]Onset: 80-70-2245HgxutcyxGsjhftawrolg (1 source)PERSONAL HISTORY OF COVID-19; Translations: [PERSONAL HISTORY OF COVID-19]Onset: 21-01-4034Tfkjmhvieacg (4 sources)CONTACT W/AND (SUSP) EXPOS COVID-19; Translations: [CONTACT W/AND (SUSP) EXPOS COVID-19]Onset: 96-40-9741Sxmorqacfeng (1 source)Left knee pain, unspecified psepdbqoxn58-76-6004Clussknmfzdy (1 source)Supraventricular tachycardia, unspecified; Translations: [Supraventricular tachycardia, unspecified]Onset: 62-67-4722Xkmhyhylxyxd (2 sources)Delayed healing of woundUnclassified (2 sources)L03.116 - Cellulitis of left lower limb,T14.8XXD - Other injury of unspecified body region, subsequent encounter Past or Other Problems Problem ClassificationProblemDateDocumented DateEpisodic/ChronicComplications of surgical procedures or medical care (4 sources)Pseudarthrosis after fusion or arthrodesis; Translations: [PSEUDARTHROSIS AFTER FUS/ARTHRODSIS]Onset: 33-07-6463AdfpjqexAslflrejow associated with dizziness or vertigo (20 sources)Dizziness and giddiness; Translations: [Postural dizziness]Onset: 03-12-2023 Resolved: 92-81-0900TzqovmnsRjbsjrve mellitus without complication (20 sources)Prediabetes; Translations: [Prediabetes]Onset: 27-99-4180SkcrjydjU Codes: Cut/pierceb (1 source)Contact with workbench tool, initial encounter; Translations: [CONTACT W/WORKBENCH TOOL INIT ENC]Onset: 72-66-1614CirhacchFkaxzgrqyijcc and screening for infectious disease (1 source)Encounter for immunization; Translations: [ENCOUNTER FOR IMMUNIZATION] Onset: 46-70-3744MruwvuojFwqb disorders (14 sources)Mood disordersOnset: 984232-35-7177Oqyn wounds of extremities (4 sources)Laceration without foreign body of left thumb without damage to nail, initial encounter; Translations: [LAC NO FB LT THUMB NO DMG NAIL INIT]Onset: 39-66-2480DolmpcuzPgrtw aftercare (1 source)longterm (current) use of aspirin; Translations: [LEASE ANALYST CURRENT USE OF ASPIRIN]Onset: 59-26-5124SrdtavmsVibzz aftercare (20 sources)Long-term current use of drug therapy; Translations: [Other halfway (current) drug therapy]Onset: 282461-34-8402MpwqwomlMruaq and unspecified benign neoplasm (1 source)Personal history of colonic polyps; Translations: [PERSONAL HISTORY OF COLONIC POLYPS]Onset: 03-44-2392NwdkraakIgcvf and unspecified benign neoplasm (2 sources)Melanocytic nevus of trunk; Translations: [Melanocytic nevi of trunk] 88-05-6994RjvdemaoObaye and unspecified benign neoplasm (2 sources)Skin lesion; Translations: [Hemangioma of skin and subcutaneous tissue]76-47-7547MgttygwyXyezg circulatory disease (2 sources)Personal history of other diseases of the circulatory system; Translations: [Personal history of other diseases of the circulatory system] Onset: 46-70-1561MunwfefdOesrf connective tissue disease (5 sources)Pain in left foot; Translations: [PAIN IN LEFT FOOT]Onset: 10-08-2022 EpisodicOther connective tissue disease (4 sources)Pain in right foot; Translations: [PAIN IN RIGHT FOOT]Onset: 74-91-0467DvexoqcoRomhw connective tissue disease (1 source)Arthrodesis status; Translations: [ARTHRODESIS STATUS]Onset: 99-22-4933NnifuuzdCmqof connective tissue disease (4 sources)Ischial bursitis ; Translations: [Other bursitis of hip, left hip] Onset: 596377-65-8008AwtcxoqsCkgknign codes; unclassified (20 sources)Insomnia; Translations: [Insomnia, unspecified]Onset: 02-04-2024 43-69-3750GoxuincuZwnpdfsy codes; unclassified (2 sources)Other specified postprocedural states; Translations: [Other specified postprocedural states]Onset: 10-06-8988VwogzpwwRncvjyqkz cerebral ischemia (20 sources)Transient global amnesia; Translations: [Transient global amnesia] Onset: 02-04-2024 Resolved: 121465-79-0556OchqqxoPtjrmgddvskb (1 source)CONTACT W/AND (SUSP) EXPOS COVID-19; Translations: [CONTACT W/AND (SUSP) EXPOS COVID-19]Onset: 75-28-8772Jevimshhppad (1 source)Supraventricular tachycardia, unspecified; Translations: [Supraventricular tachycardia, unspecified]Onset: 04-21-2025 Results Test NameValueInterpretationReference RangeFacilityAerobic Cultureon 09-17-2025 Aerobic CultureResult Tab Codes Light Normal Skin Monisha 2 Days No Anaerobes Isolated 2 Days Gram Stain Result Rare Epithelial Cells No Bacteria Seen No White Blood Cells Seen PERFORMED BY: [facility] [address] [place] [address] PATHOLOGIST BRAND AMBASSADOR ANASTASIA MIRELES M.D.NormalHca Florida Kendall Hospital Physician GroupComment on above: Performed By: #### AERC #### [facility] [address] [place] [id number] USAOrders Onlyon 59-71-6010Xtjefb [id number] Oscar Escoto 1950 M Date Provider Department Center 09/02/2025 [facility]-PERRI [facility] CARD NM HeartVAS Family History Problem Relation Age of Onset Other Mother Coronary artery disease Mother Other Father Family Status - Relation Status Age at Mother Father DeceasedNormalUniversity of Texas Health Huguley Hospital Fort Worth SouthXR HIP LT 2-3 VIEWS W OR WO PELVISon 38-91-4149BW HIP LT 2-3 VIEWS W OR WO PELVISXR HIP LT 2-3 VIEWS W OR WO [...] by Eddie Meeks MD on 09/01/2025 1:27 PMNormalProMedica Grand [facility] 36on 27-39-990825K/p stress test result from 08/03/2025. Dr. Amin is starting patient on flecainide 100mg bid. Patient informed of normal stress test and will start flecainide. RX sent.[facility] SpringfieldOrders Onlyon 76-27-0238Gtbfsh [id number] Oscar Escoto 1950 M Date Provider Department Center 08/03/2025 [id number], HISTORICAL CARD [facility] Family History Problem Relation Age of Onset Other Mother Coronary artery disease Mother Other Father Family Status - Relation Status Age at Mother Father DeceasedCarolinaEast Medical CenterniKettering Health – Soin Medical CenterOffice Visiton 59-46-6411Nvkesb-up [id number] Oscar Escoto 1950 M Date Provider Department Center 07/27/2025 ROXANNE MARTINEZ CARD [facility] Family History Problem Relation Age of Onset Other Mother Coronary artery disease Mother Other Father Family Status - Relation Status Age at Mother Father Level of Service:62611 [place] OFFICE/OUTPATIENT ESTABLISHED LOW MDM [facility] HospitalOrders Onlyon 51-23-7657Xmmfgc [id number] Oscar Escoto 1950 M Date Provider Department Center 07/27/2025 [id number], HISTORICAL CARD Maik Hos Family History Problem Relation Age of Onset Other Mother Coronary artery disease Mother Other Father Family Status - Relation Status Age at Mother Father DeceasedNoProtestant Deaconess HospitalOrders [id number] Oscar Escoto 1950 M Date Provider Department Center 07/27/2025 ROXANNE MARTINEZ [facility] CARD NM HeartVAS Family History Problem Relation Age of Onset Other Mother Coronary artery disease Mother Other Father Family Status - Relation Status Age at Mother Father DeceasedKettering Health SpringfieldOrders Onlyon 07-12-2025 Orders [id number] Oscar Escoto 1950 M Date Provider Department Center 07/12/2025 PERRI [facility] CARD NM HeartVAS Family History Problem Relation Age of Onset Other Mother Coronary artery disease Mother Other Father Family Status - Relation Status Age at Mother Father DeceasedNoProtestant Deaconess HospitalUS Scrotum and testicle on 89-03-5935[address] [address] Ultrasound Report Signed Patient: OSCAR ESCOTO MR#: [id number] : 1950 Acct:[id number] Age/Sex: 75 / M ADM Date: 07/02/25 Loc: US Attending Dr: North Chapin M.D. Ordering Physician: North Chapin M.D. Date of Service: 07/02/25 Procedure(s): US scrotum Accession Number(s): [id number] cc: North Chapin M.D. [address] [id number] Patient Name: OSCAR ESCOTO MRN: [id number] date: 1950 Sex: M Assigned Patient Location: US Current Patient Location: US Accession/Order Number: [id number] Exam Date: 07/02/2025 14:51 Report Date: 07/02/2025 [...] Jr., D.O. 07/02/2025 2:53 PM Dictation Location: [place] [address] Electronically authenticated by: [id number] Y Date: 07/02/2025 14:53 Dictated By: Tariq Lozada M.D. Signed By: 07/02/25 1455 DD/ 1453 TD/TT: Supervisor Sheet Manufacturing:PATIENCEadiologac, Radiologist, - 07/02/2025 [place] [address] Ultrasound Report Signed Patient: OSCAR ESCOTO MR#: [id number] : 1950 Acct:[id number] Age/Sex: 75 / M ADM Date: 07/02/25 Loc: US Attending Dr: North Chapin M.D. Ordering Physician: North Chapin M.D. Date of Service: 07/02/25 Procedure(s): US scrotum Accession Number(s): [id number] cc: North Chapin M.D. [place] [address] Patient Name: OSCAR ESCOTO MRN: [facility]:[id number] date: 1950 Sex: M Assigned Patient Location: US Current Patient Location: US Accession/Order Number: [id number] Exam Date: 07/02/2025 14:51 Report Date: 07/02/2025 [...] varicoceles. Small bilateral hydroceles. Impression dictated by: Tairq Lozada Jr., D.OYonatan 07/02/2025 2:53 PM Dictation Location: [place] [address] Electronically authenticated by: [id number] Y Date: 07/02/2025 14:53 Dictated By: Tariq Lozada M.D. Signed By: 07/02/25 1455 DD/ 1453 TD/TT: Supervisor Sheet Manufacturing: TATE [facility] Ahuja Medical CenterRadiology Study observation (narrative)TATE [facility] Ahuja Medical CenterUS Scrotum and testicleOrdered By: Radiologist Radiology on 19-92-5458BVYO [employer] Work Phone: Destr of lesionon 77-35-6972Wkhmgizmxl: simple Destruction method: electrodesiccation and curettage Informed consent: discussed and consent obtained Informed consent comment: The risks of the procedure were discussed, including, but not limited to risks of scarring, darker or pull tab dealer pigmentary changes, recurrence, infection, and incomplete removal [...] lidocaine used: 2.0 cc Previous accession number: [id number] Regional Medical CenterComplexity: simple Destruction method: electrodesiccation and curettage Informed consent: discussed and consent obtained Informed consent comment: The risks of the procedure were discussed, including, but not limited to risks of scarring, darker or pull tab dealer pigmentary changes, recurrence, infection, and incomplete removal [...] lidocaine used: 2.0 cc Previous accession number: [id number] Medical Center-Washington County Informationon 77-55-6884Jzxnww length (cm): 2 Lesion width (cm): 1.7 [...] Additional details: Amount of lidocaine used: 4.0 mlNOMS HealthcareNo Panel InformationOrdered By: Naomi Hernandez on 18-27-6184QVEU HealthcareOffice Visiton 20-71-5289Fovemf-up [id number] Oscar Escoto 1950 M Date Provider Department Center 04/21/2025 [id number] COURTNEY Family History Problem Relation Age of Onset Other Mother Coronary artery disease Mother Other Father Family Status - Relation Status Age at Mother Father Level of Service:58263 [place] OFFICE/OUTPATIENT ESTABLISHED MOD MDM [facility] HospitalOrders Onlyon 02-90-0994Yzpkse [id number] Oscar Escoto 1950 M Date Provider Department Center 04/15/2025 [id number], LIS Wu Family History Problem Relation Age of Onset Other Mother Coronary artery disease Mother Other Father Family Status - Relation Status Age at Mother FatherNormalUniKettering Health – Soin Medical CenterAmbulatory Visit Summaryon 81-40-3539Vclqfcoukf Visit SummaryAmbulatory Visit Summary OSCAR ESCOTO :1950 Visit Date:04/05/2025 [...] Where: [facility] [address], [place] [address] [phone] Medications What How Much When Why Instructions New doxycycline (doxycycline hyclate 100 mg Tab) 1 Tablets By Mouth 2 times a day Epididymitis Chronic prostatitis Duration: 14 Days Pickup at [facility] Unchanged diltiazem (DilTIAZem (Eqv-Cardizem CD) 240 mg/ 24 hours oral capsule, extended release) 1Capsules Contact prescribing physician if questions or concerns [...] physician if questions or concerns Pharmacy Information [facility] 1429: [address] [place], [place] [id number] [phone] Allergies No Known Medication Allergies Problems Ongoing - Any problem that you are currently receiving treatment for. 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 Epididymitis Family history of kidney cancer Hx of halfway use of blood thinners Impotence Organic impotence [...] including vitamins, herbs, eye drops, creams, and nxuk-lga-eeptvyc medicines. ??? Any problems you or family [...] 6 hours before yo (more content not included)...[facility] CampusUrology Office/Clinic Noteon 61-62-3767Pqwpahq Office/Clinic NoteUrology Office/Clinic Note Chief Complaint 6 month f/u with PSA HPI Staff 6 month f/u with PSA Dx: BPH with urinary obstruction/LUTS, epididymitis, chronic prostatitis, family hx of kidney cancer and organic impotence PSA done 04/03/25 - 0.39 Cialis 20mg PRN, Tamsulosin qd and Finasteride 5mg qd Denies urinary complaints but states that he is having right sided scrotal pain that returned abouta month ago. Denies any swelling to the [...] at prior OV. Sxs seemed to resolved afterabx course. Notices R epididymal pain after physical activity. Discussed possible need to orchiectomy given chronic pain/discomfort. Pt denies concerns for fertility. Discussed risks/benefits/procedural details of orchiectomy. 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 Never Smokeless Tobacco (more content not included)...[facility] CampusComment on above:Result Comment: Electronically Signed By: Natali IRAHETA MD\.br\Date and Time Signed: 04/05/25 13:21 EDT\.br\Electronically Co-Signed By: Katheryn Fernandez\.br\Date and Time Co-Signed: 04/05/25 13:20 EDTMLR HEMOGLOBIN A1Con 04-03-2025 Glucose [Mass/Vol]114 mg/dLNOCA ExefwgakjsLwZ3v (Bld) [Mass fraction]5.6 %4.5 - 6.2 %NOMS HealthcareComment on above:ADA RECOMMENDED LIMIT 4.0 - 6.0 ADA THERAPEUTIC TARGET < 7.0 ACTION SUGGESTED > 7.0 CLINISYNCNOMS HealthcareCoding Summaryon 64-49-4168Vsoias SummaryHTMLBase 64 FsqjobxuLPu2wUy+PGhlYWQ+WT3ZDGCoB69xzULsjC1uV3ZKHDqBEcesEJOCRDtLLcPqifYqST9uzUPt ZXJu [file] ZXI (more content not included)...[facility] CampusNo Panel Informationon 66-78-5251Gixb of biopsy: tangential Informed consent: discussed and [...] Photo taken Amount of lidocaine used: 1.5 American Healthcare SystemsType of biopsy: tangential Informed consent: discussed and [...] Photo taken Amount of lidocaine used: 1 American Healthcare SystemsType of biopsy: tangential Informed consent: discussed and [...] Photo taken Amount of lidocaine used: 3 [facility] Coding Summaryon 21-28-3165Ubadun SummaryMLBase 64 ZwfdotrrLTa7hZa+PGhlYWQ+XD9FCKPbO52aaEWsjT9fX8QDUYcTUyndKICJUGhHMbDhlfLnEF8aoWCd ZXJu [file] ZXI (more content not included)...[facility] CampusConsent Formson 76-02-3293Rmdttta [id number]#1.00[facility] Medical CenterOutside Recordson 28-66-4217Zgxeniu Records [id number]#1.00[facility] Telemetry Stripson 86-75-3966Ninzorqbr Strips [id number]#1.00[facility] Anesthesia Noteon 00-46-6997Lpawmybapv NotePatient: OSCAR ESCOTO Age: 74 years Sex: MALE [...] of CHERI. Potential risks and mitigating factors werediscussed with the patient who expresses understanding.. No Complaint of nausea and vomiting. Plan Transfer/ Discharge: Patient can be discharged from PACU when criteria met. Condition stable. 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 Tonsillectomy and adenoidectomy (258603223). Hernia (5730254280). Comments: 02/02/2025 13:25 Cass Edwards RN inguinal and umbilical Toe (77840386). Comments: 02/02/2025 13:26 Cass Edwards RN big [...] % Auto Lymph % 22 % Auto [place] % 7 % Auto Eos % 2.9 % Auto Baso % 0.7 % Neut Abs# 4.6 x103/mcL Lymph Abs# 1.5 x103/mcL [place] Abs# 0.5 x103/mcL Eos Abs# 0.2 x103/mcL [...] NA . Radiology results: ECHO, 2020 wnl. Health Diagnostics Teacher: stress ekg 2016 wnl. ECG interpretation: Normal sinus rhythm. Plan [place] [employer] Anesthesiologists (ASA) physical status classification: Class III. Anesthetic Preoperative Plan Anesthesia: General. . Anesthetic plan, risks, benefits, and alternatives discussed with the patient and/or family. Risks discussed. Patient verbalized understanding. Informed consent was given. Consent was signed by thepatient. Anesthetic technique: General anesthesia. [Electronically Signed on: 03/01/2025 11:00 EDT] Leroy Zuñiga DO [Verified on: 03/01/2025 11:0 (more content not included)...[facility] CampusInpatient Patient Summaryon 03-01-2025 Inpatient Patient [address] [id number] Patient Discharge Instructions Name: OSCAR ESCOTO : 1950 Patient Address: [address] [place] [address] Primary Care Provider: Name: NORTH CHAPIN After you are discharged if you find you have any questions, please, call [phone] ext [phone] to speak to a nurse. Discharge Diagnosis: Acute lateral meniscus tear of left knee Prescription Information: If you have been given a prescription for narcotics, seek immediate medical attention if you have any difficulty breathing or any sudden status changes such as confusion andsleepiness. If you or anyone you know is experiencing suicidal thoughts, mental health, alcohol and/or drug addiction problems; contact the Mental Health & Recovery [facility] 17/06 Crisis Hotline -Text 4HOPE to 865174. If you received any narcotics, sedation, or [...] business decisions or sign any legal documents [facility] would like to thank you for allowing us to assist you with your healthcare needs.The following includes patient education materials and information regarding your injury/illness. OSCAR ESCOTO has been given the following list of follow-up instructions, prescriptions, and patient education materials: Follow-up Instructions With: Address: When: Nneka Hernandez [address] [place] [phone] Business (1) 2025 10:00 AM Medications [...] ice bag provided to you by [facility] from home. The ice should be applied at least 3 times a day for 20 minute intervals. 2.) Keep your knee elevated above the level of you (more content not included)...[facility] Intraoperative Recordon 27-51-4603CUSV Intraoperative RecordHONORHE[facility] Intra-Op Record Summary Primary Physician: ENRRIQUE WALDROP DO Finalized Date/Time: 03/01/25 12:04:17 Pt. Name: OSCAR ESCOTO/Sex: 1950 MALE Med Rec #: [id number] Physician: ENRRIQUE WALDROP DO Financial #: [id number] Pt. Type: D Room/Bed: / Admit/Disch: 03/01/25 [...] Role Performed Surgeon - Primary Anesthesiologist of Analytics Director Record Time In 03/01/25 11:05:00 03/01/25 11:05:00 03/01/25 11:05:00 Time Out 03/01/25 11:57:00 03/01/25 11:57:00 03/01/25 11:57:00 Procedure Arthroscopy Knee(Left) Arthroscopy Knee(Left) Arthroscopy Knee(Left) Last Modified By: Alissa RN, Rupinder Maxwell RN, Rupinder Maxwell RN, Rupinder 03/01/25 12:03:50 03/01/25 12:03:50 03/01/25 12:03:50 Entry 4 Entry 5 Case Attendee Felicitas Ramos DISPATCH COORDINATOR Berny DISPATCH COORDINATOR, Sarah GALLAGHER CSFA Role Performed Physician Assistant Physician Assistant Time In 03/01/25 11:05:00 03/01/25 11:05:00 Time [...] Alissa MACHADO RN, Richard Bucio Regina CSFA DISPATCH COORDINATOR, ENRRIQUE WALDROP DO, Berny DISPATCH COORDINATOR, Sarah GALLAGHER CSFA Last Modified By: Rupinder [...] injury related to positi (more content not included)...[facility] PACU Recordon 62-04-3242XUBZ PACU RecordMA PACU Record Summary Primary Physician: ENRRIQUE WALDROP DO Finalized Date/Time: 03/01/25 12:31:44 Pt. Name: BLAIRE ESCOTOYOUNG De La Cruz/Sex: 1950 MALE Med Rec #: [id number] Physician: ENRRIQUE WALDROP DO Financial #: [id number] Pt. Type: D Room/Bed: / Admit/Disch: 03/01/25 08:45:44 - Institution: PACU Case Times MAGR Entry 1 In PACU I 03/01/25 12:00:00 Discharge from PACU 03/01/25 12:28:00 I Last Modified By: Hannah Abraham RN 03/01/25 12:31:42 Finalized By: Hannah Abraham RN Document Signatures Signed By: Hannah Abraham RN 03/01/25 12:31[facility] Postoperative Recordon 15-94-3792ISID Postoperative RecordMAGR Phase II Record Summary Primary Physician: ENRRIQUE WALDROP DO Finalized Date/Time: 03/01/25 13:26:19 Pt. Name: BLAIRE ESCOTOYOUNG De La Cruz/Sex: 1950 MALE Med Rec #: [id number] Physician: ENRRIQUE WALDROP DO Financial #: [id number] Pt. Type: D Room/Bed: / Admit/Disch: 03/01/25 08:45:44 - Institution: Phase II Case Times MAGR Pre-Care Text: Patient is free from s/s of injury. Patient remains free from compromised physical state related tosurgery or anesthesia. Patient comfort maintained. Patient/family verbalize [...] Signatures Signed By: Camden Jones RN 03/01/25 13:26[facility] CampusMAGR Preoperative Recordon 95-17-5775DVNX Preoperative RecordMAGR Pre-Op Record Summary Primary Physician: ENRRIQUE WALDROP DO Finalized Date/Time: 03/01/25 13:12:56 Pt. Name: OSCAR ESCOTO /Sex: 1950 MALE Med Rec #: [id number] Physician: ENRRIQUE WALDROP DO Financial #: [id number] Pt. Type: D Room/Bed: / Admit/Disch: 03/01/25 [...] ready for surgery. The patient remains free froms/s of injury. Patient/family express understanding of plan of care and participate in decisions affectinghis or her perioperrative plan of care. Allergies documented appropriately. Patient identifiers and consent correct. General Comments: Pt arrives to PSW. Pt denies SOB,cp,cough and flu like symptoms. Pt also denies pacemaker,defibrillator. Pt does have sleep apnea. Pt is not a diabetic. Finalized By: Camden Jones RN Document Signatures Signed By: Camden Jones RN 03/01/25 13:12[facility] CampusPatient Handouton 06-67-5614Fqhhxng HandoutArthroscopic Surgery Discharge Instructions 1.) Keep ice on your knee after surgery. You may use the ice bag provided to you by the hospital orone from home. The ice should be applied [...] your toes and exercise your ankle for tenminutes every hour that you are awake. 5.) [...] walker or crutches to aid in ambulation. Thesewill allow you to move about without overloading [...] someone with you for the rest of today.[facility] CampusProgress Note - Nurseon 59-46-6969Ubrwvhnw Note - NurseSpoke with pt and informed him to be at hospital at 0845 and NPO after MN, he verbalizes understanding. [Electronically Signed on: 02/26/2025 09:54 EDT] Adilene, Sidsel RN [Verified on: 02/26/2025 09:54 EDT] Tamaub, Sidsel RNNormalMercer County Community Hospital HospitalCoding Summaryon 57-34-2093Wjvchr SummaryHTMLBase 64 EztnutoaFBv8mIh+PGhlYWQ+XN9JIWPnF19wbMImfB2dH2YOHVzJWmhhCHAACUcYMtVmesTvLK5aiAFg ZXJu [file] c2U (more content not included)...[facility] CampusProgress Note - Nurseon 09-88-5258Pimnzpoc Note - NurseDr Fullam reviews pt chart and no new orders were received. [Electronically Signed on: 02/04/2025 12:38 EDT] Miranda Head RN [Verified on: 02/04/2025 12:38 EDT] Miranda Head RNNoRegional Medical Center36on 65-66-844726Kxpezuk's says his BP is higher AFTER he [...] track of his BP without, that was ok.NormalWexner Medical Center36PER BRENNAN STAY ON 5 MGNormalUniKettering Health – Soin Medical Center.Auto Diff 1on 81-35-7289Hzbd [place] %7 %Normal1-12[facility]uder HospitalComment on above: Performed By: #### [id number], [id number], [id number] ####[facility] (DEFAULT)[address] [place] [address] 158[address]Smzb Abs#0.0 f07Qlrsoe4.0-0.2 [facility] HospitalComment on above:Performed By: #### [id number], [id number], [id number] ####[facility] (DEFAULT)[address] [place] [address] 53132Krwrovjoy/100 WBC (Bld)0.7 %Normal0.2-2.0[facility] HospitalComment on above: Performed By: #### [id number], [id number], [id number] ####[facility] (DEFAULT)[address] [place] [address] 69882Mcu Abs#0.2 b96Glyxuq0.0-0.4 [facility] HospitalComment on above:Performed By: #### [id number], [id number], [id number] ####[facility] (DEFAULT)[address] [place] [address] 77643Atookfzbhhu/100 WBC (Bld)2.9 %Normal0.9-4.0[facility] HospitalComment on above:Performed By: #### [id number], [id number], [id number] ####[facility] (DEFAULT)[address] [place] [address] 61915Htfrh Abs#1.5 f66Nnsfom8.3-2.9 [facility] HospitalComment on above:Performed By: #### [id number], [id number], [id number] ####[facility] (DEFAULT)[address] [place] [address] 11775Cnpdwhfmubh/100 WBC (Bld)22 %Kipwkn81-97Okxkicmg HospitalComment on above: Performed By: #### [id number], [id number], [id number] ####[facility] (DEFAULT)[address] [place] [address] 05491Msbu Abs#0.5 l89Dlzstw7.0-0.8 [facility] HospitalComment on above:Performed By: #### [id number], [id number], [id number] ####[facility] (DEFAULT)[address] [place] [address] 44664Udrd Abs#4.6 p48Ccevit5.5-9.2[facility] HospitalComment on above:Performed By: #### [id number], [id number], [id number] ####[facility] (DEFAULT)[address] [place] [address] 13657Eqriajzdgzr/100 WBC (Bld)67 %Fxzmsa45-12Akoptcbb HospitalComment on above:Performed By: #### 6763289, [id number], [id number] ####[facility] (DEFAULT)[address] [place] [address] 96696MVH Standardon 25-89-6010mQTZ Non AA58 mL/min/1.68n5Mblugzr Interpretation Code [facility] HospitalComment on above:Performed By: #### [id number], [id number], [id number] ####[facility] (DEFAULT)[address] [place] [address] 70910eCTM AA>60Invalid Interpretation CodeMercer County Community Hospital HospitalComment on above: Performed By: #### [id number], [id number], [id number] ####[facility] (DEFAULT)[address] [place] [address] 47639Eobbp gap [Moles/Vol]12.6 mmol/L Normal5.0-19.0[facility] HospitalComment on above:Performed By: #### [id number], [id number], [id number] ####[facility] (DEFAULT)[address] [place] [address] 69716Cmuhitu [Mass/Vol]9.3 mg/dLNormal8.9-10.3MSelect Medical Specialty Hospital [facility] Comment on above:Performed By: #### [id number], [id number], [id number] ####[facility] (DEFAULT)[address] [place] [address] 78981Megqowni [Moles/Vol]105 mmol/MHlcmdx146-414Evpkopno HospitalComment on above:Performed By: #### 4003356, 12802761, [id number] ####[facility] (DEFAULT)[address] [place] [address] 73156WX1 [Moles/Vol]24 mmol/WMdzgsf64-67Hkymyozm Hospital Comment on above:Performed By: #### [id number], [id number], [id number] ####[facility] (DEFAULT)[address] [place] [address] 08615Nctindrukp [Mass/Vol] 1.23 mg/dLNormal0.90-1.30[facility] HospitalComment on above:Performed By: #### [id number], [id number], [id number] ####[facility] (DEFAULT)[address] [place] [address] 79436Acgzggb [Mass/Vol]103.0 mg/jXZtqjay28.0-118.0 [facility] Samaritan HospitalComment on above:Performed By: #### [id number], [id number], [id number] ####[facility] (DEFAULT)[address] [place] [address] 68753Aebukwuzfx934 mOsm/LInvalid Interpretation CodeTrihealth Good Samaritan HospitalComment on above:Performed By: #### [id number], [id number], [id number] ####[facility] (DEFAULT)[address] [place] [address] 97852Gcovutqxk [Moles/Vol]3.6 mmol/L Normal3.6-5.1[facility] HospitalComment on above:Performed By: #### [id number], [id number], [id number] ####[facility] (DEFAULT)[address] [place] [address] 80030Apjosq [Moles/Vol]138.0 mmol/IVtzbcn867.0-144.0[facility] HospitalComment on above:Performed By: #### [id number], [id number], [id number] ####[facility] (DEFAULT)[address] [place] [address] 45865Xvwj nitrogen [Mass/Vol]23 mg/dLNormal8-26[facility] HospitalComment on above:Performed By: #### [id number], [id number], [id number] ####[facility] (DEFAULT)[address] [place] [address] 23868Qjgt nitrogen/Creatinine [Mass ratio]18.6 mg/mgHigh4.6-16.2[facility] HospitalComment on above:Performed By: #### [id number], [id number], [id number] ####[facility] (DEFAULT)[address] [place] [address] 59084FHD w/ Auto Diffon 60-02-1405Srfarlbnsgr distribution width (RBC) [Ratio]14.5 %Qtazbb01.5-15.0[facility] HospitalComment on above:Performed By: #### [id number], [id number], [id number] ####[facility] (DEFAULT)[address] [place] [address] 83447Pgmsokdbrr (Bld) [Volume fraction]42.0 %Normal 34.8-51.9[facility] HospitalComment on above:Performed By: #### [id number], [id number], [id number] ####[facility] (DEFAULT)[address] [place] [address] 88991Bzjfbtswvm (Bld) [Mass/Vol]14.4 g/qGJzreii89.8-17.7[facility] HospitalComment on above:Performed By: #### [id number], [id number], [id number] ####[facility] (DEFAULT)[address] [place] [address] 90306Qap Diff?AutoInvalid Interpretation CodeMercer County Community Hospital HospitalComment on above:Performed By: #### [id number], [id number], [id number] ####[facility] (DEFAULT)[address] [place] [address] 70148PFN (RBC) [Entitic mass]31 pqBvskll02-06[facility] Comment on above:Performed By: #### [id number], [id number], [id number] ####[facility] (DEFAULT)[address] [place] [address] 52037MQUK (RBC) [Mass/Vol]34 g/dFJzwrww53-73Joytifap HospitalComment on above:Performed By: #### [id number], [id number], [id number] ####[facility] (DEFAULT)[address] [place] [address] 38152YXT (RBC) [Entitic vol]89 mSPhczlr72-619Zqwabnnd Hospital Comment on above:Performed By: #### [id number], [id number], [id number] ####[facility] (DEFAULT)[address] [place] [address] 30009Pjijpbyv067 n47Mduhnx 138-427[facility] HospitalComment on above:Performed By: #### [id number], [id number], [id number] ####[facility] (DEFAULT)[address] [place] [address] 20932Uuaauqzb mean volume (Bld) [Entitic vol]9.5 fLNormal6.3-10.2[facility] HospitalComment on above:Performed By: #### [id number], [id number], [id number] ####[facility] (DEFAULT)[address] [place] [address] 86173KLD0.71 y92Xkqzej5.70-5.30[facility] HospitalComment on above:Performed By: #### [id number], [id number], [id number] ####[facility] (DEFAULT)[address] [place] [address] 99943NQG4.9 g98Jydmof8.5-10.5[facility] HospitalComment on above: Performed By: #### [id number], [id number], [id number] ####[facility] (DEFAULT)[address] [place], [place] [address]Dclgznidprw 51-85-1022Pahrsdxik [id number] Oscar Escoto 1950 M Date Provider Department Center 02/02/2025 TRIN[facility] DIAZ Family History Problem Relation Age of Onset Other Mother Coronary artery disease Mother Other Father Family Status - Relation Status Age at Mother FatherNormalUniKettering Health – Soin Medical Center36on [id number] called back to say his BP's are still running a little high. Sometimes around 144-148 systolic, but not often. I advised him to take another 5mg of lisinopril in the afternoon's if BP is elevated. Dr. Amin's note per [facility] says add lisinopril 5-10 . He verbalized understanding and will continue to keep an eye on his BP.NormalUnCleveland Clinic Hillcrest HospitalTelephoneon 12-11-2024 [id number] Oscar Escoto 1950 M Date Provider Department Center 12/11/2024 TRINITY DIAZ Family History Problem Relation Age of Onset Other Mother Coronary artery disease Mother Other Father Family Status - Relation Status Age at Mother FatherNocurtisalUMercy Health Anderson HospitalXR Knee - bilateral AP W standing on 52-70-7785Zdehsui Result: Standing AP shows no gross evidence of major arthritic process, overall anatomic alignment appeared to be well preserved. There was no acute bony process including but not limited to fracture and/or dislocation. Impression: no gross evidence of major arthritic process or structural damage bilateral knees [facility] HealthcareXR Knee - bilateral AP W standingOrdered By: Jr. Waldrop on 05-62-4095ZF[facility] Work Phone: Office Visiton [id number]-up [id number] Oscar Escoto 1950 M Date Provider Department Center 11/10/2024 ROXANNE MARTINEZ Family History Problem Relation Age of Onset Other Mother Coronary artery disease Mother Other Father Family Status - Relation Status Age at Mother Father Level of Service:09017 [place] OFFICE/OUTPATIENT ESTABLISHED LOW MDM 20 [facility] HospitalNo Panel Informationon 22-86-6518KnkjqMary Lou Diane NP 11/12/2024 9:12 AM L [...] discussed. Consent was given by the patient. [facility]XR [facility] - bilateral AP W standingon 11-09-2024 Radiology Study observation (narrative)[facility] DivisionAmbulatory Visit Summaryon 48-73-9403Fhwykrgnpe Visit SummaryAmbulatory Visit Summary OSCAR ESCOTO Flora :1950 Visit Date:10/12/2024 Ambulatory Visit Instructions Your [...] Natali IRAHETA MD Where: [facility] [address] [place] [address]- You Need to Schedule the Following Appointments Follow Up with Natali IRAHETA MD, URL When: Comments: 6 mos Where: [facility] [address], [place] [address] [phone] Medications What How Much When Instructions New ciprofloxacin (Cipro 500 mg Tab) 1 Tablets By Mouth Every 12 hours Duration: 30 Days Pickup at [facility] Unchanged finasteride (finasteride [...] physician if questions or concerns Pharmacy Information [facility]: [address] [place], [place] [id number] [phone] Allergies No Known Medication Allergies Problems Ongoing - Any problem that you are currently receiving treatment for. 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 Symptoms usually startsuddenly (acute epididymitis). Sometimes epididymitis starts gradually and [...] sex with more than (more content not included)...[facility] CampusU[facility] Office/Clinic Noteon 68-01-5162Ckfzoni Office/Clinic Note Urology Office/Clinic Note Chief Complaint [...] Reports intermittent pain in his right testicle, ongoingfor a few months. Not taking any pain [...] [facility] [address], [place] [address] [phone] Additional Instructions: 6 mos w/ PSA Patient Education Epididymitis I, Katheryn Fernandez, personally scribed for Dr. Iraheta on 10/12/2024 16:13:25. . Documentation recorded by the scribeKatheryn, accurately reflects the services(s) I performed and decisions made by me. Authenticated by Dr. Iraheta on 10/12/2024 16:15:49. 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 Findings: Tricompartmental joint degenerative change. No joint effusion fracture or dislocation. Vascular calcifications are noted. Impression: Tricompartmental joint degenerative change. No acute process. Finalized by Kavya De Oliveira MD on 10/08/2024 1:54 [facility] Panel Informationon 46-25-5861Sxct of biopsy: tangential Informed consent: discussed and [...] Photo taken Amount of lidocaine used: 1.0 [facility] ECHOCARDIO M/2D COMPLETEon 02-17-6560EGHFFPKQYW M/2D COMPLETEPatient: OSCAR ESCOTO Exam Date: 03/12/2023 : 1950 Gender:M Ordering : DR NORTH CHAPIN . Admission #: [id number] Family : ROXANNE AMIN MD Order #: [id number] CLICK HERE TO VIEW EXAM ECHOCARDIOGRAM REPORT [...] on 03/12/2023 at 18:38 Approved by: Enrrique Sloorio M.D. on 03/12/2023 at 18:41[facility] CAROTID ART BILon 14-98-0871HM CAROTID ART BILEXAMINATION: US CAROTID ART MOISES HISTORY: Dizziness and [...] Electronically authenticated by: MARÍA BRYSON Date: 2023-03-12 15:01NormalThMetroHealth [facility] AUTO DIFFon 22-04-4099WVDA #0.1 103/ulNormal0.0-0.1The [facility] HospitalComment on above:Performed By: #### CBC #### [facility] [address] [place] [address] Dr. Sanjuana KasperBasophils/100 WBC (Bld)0.9 %Normal0.2-2.0[facility] Comment on above:Performed By: #### CBC #### [facility] [address] [place] [address] Dr. Sanjuana Hughes #0.3 103/ulNormal0.0-0.7The [facility] HospitalComment on above: Performed By: #### CBC #### [facility] [address] [place] [address] Dr. Sanjuana Chambersosinophils/100 WBC (Bld)5.0 %Normal0.9-7.0[facility] Comment on above:Performed By: #### CBC #### [facility] [address] [place] [address] Dr. Sanjuana Chambersrythrocyte distribution width (RBC) [Ratio]13.5 %Ucekcl30.0-15.0 [facility] HospitalComment on above:Performed By: #### CBC #### [facility] [address] [place] [address] Dr. Sanjuana KasperHematocrit (Bld) [Volume fraction]41.9 %Critically low42.0-54.0 The [facility] HospitalComment on above:Performed By: #### CBC #### [facility] [address] [place] [address] Dr. Sanjuana KasperHemoglobin (Bld) [Mass/Vol]13.9 g/dLCritically low14.0-18.0The [facility] Hospitalment on above:Performed By: #### CBC #### [facility] [address] [place] [address] Dr. Sanjuana Zavaleta #0.02 10e3/ulNormal0.00-0.03The [facility] HospitalComment on above:Performed By: #### CBC #### [facility] [address] [place] [address] Dr. Sanjuana Zavaleta %0.3 %Normal0.0-0.5The [facility] HospitalComment on above: Performed By: #### CBC #### [facility] [address] [place] [address] Dr. Sanjuana Reeder #1.4 103/ulNormal1.2-3.8The [facility] HospitalComment on above:Performed By: #### CBC #### [facility] [address] [place] [address] Dr. Sanjuana Raineyhocytes/100 WBC (Bld)23.8 %Jitana93.5-60.0The [facility] HospitalComment on above:Performed By: #### CBC #### [facility] [address] [place] [address] Dr. Sanjuana WhitakerUAL DIFF REQNONormalThe [facility] HospitalComment on above: Performed By: #### CBC #### [facility] [address] [place] [address] Dr. Sanjuana Osei (RBC) [Entitic mass]29.5 ykNkttqw79.9-34.0The [facility] HospitalComment on above:Performed By: #### CBC #### [facility] [address] [place] [address] Dr. Sanjuana Osei (RBC) [Mass/Vol]33.2 g/wULxlqmr29.9-35.2The [facility] HospitalComment on above:Performed By: #### CBC #### [facility] [address] [address] [address] Sanjuana OseiV (RBC) [Entitic vol]89.0 pFUmzwpi42.0-94.0The [facility] HospitalComment on above:Performed By: #### CBC #### [facility] [address] [place] [address] Dr. Sanjuana Ballesteros #0.4 103/ulNormal0.3-0.8The [facility] HospitalComment on above:Performed By: #### CBC #### [facility] [address] [place] [address] Dr. Sanjuana Avilaocytes/100 WBC (Bld)7.1 %Normal1.7-12.0[facility] Comment on above:Performed By: #### CBC #### [facility] [address] [place] [address] Dr. Sanjuana Hudson #3.7 103/ulNormal1.4-6.5The [facility] HospitalComment on above:Performed By: #### CBC #### [facility] [address] [place] [address] Dr. Sanjuana Garciautrophils/100 WBC (Bld)62.9 %Ysfocl35.0-75.0The [facility] HospitalComment on above:Performed By: #### CBC #### [facility] [address] [place] [address] Dr. Sanjuana Zamanlet mean volume (Bld) [Entitic vol]10.6 fLNormal9.5-13.5The [facility] HospitalComment on above:Performed By: #### CBC #### [facility] [address] [place] [address] Dr. Sanjuana KasperPLT259 103/jwJfraqi197-282Ivh [facility] HospitalComment on above: Performed By: #### CBC #### [facility] [address] [place] [address] Dr. Sanjuana KasperRBC4.71 106/ulNormal4.70-6.10The [facility] HospitalComment on above:Performed By: #### CBC #### [facility] [address] [address] [address] Sanjuana KasperWBC5.8 103/ulNormal4.0-11.0The [facility] on above: Performed By: #### CBC #### [facility] [address] [address] [address] Sanjunaa KasperGLYCOHEMOGLOBIN A1Con 86-18-8897KDM RECOMMENDATIONSEE BELOWSouthern Ohio Medical CenterComment on above:Result Comment: ADA RECOMMENDED LIMIT 4.0 - 6.0 ADA THERAPEUTIC TARGET < 7.0 ACTION SUGGESTED > 7.0Performed By: #### A1C #### [facility] [address] [place] [address] Dr. Sanjuana KasperGlucose [Mass/Vol]108 mg/dLNormJoint Township District Memorial HospitalComment on above:Performed By: #### A1C #### [facility] [address] [place] [address] Dr. Sanjuana KasperHbA1c (Bld) [Mass fraction]5.4 %Normal4.5-6.2The [facility] HospitalComment on above:Performed By: #### A1C #### [facility] [address] [place] [address] Dr. Sanjuana KasperLIPID PROFILEon 48-26-6358WZZA-HDL RATIO NORMSEE [facility] HospitalComjohn d. [facility] on above:Result Comment: 3.3 - 4.4 LOW RISK 4.4 - 7.1 AVERAGE RISK 7.1 - 11.0 MODERATE RISK >11.0 HIGH RISKPerformed By: #### TSH, LIPID, BMP, LIVER #### [facility] [address] [place] [address] Dr. Sanjuana KasperCholesterol [Mass/Vol]192 mg/dLNormal<=200[facility] Comment on above:Performed By: #### TSH, LIPID, BMP, LIVER #### [facility] [address] [place] [address] Dr. Sanjuana KasperCholesterol in HDL [Mass/Vol]61 mg/dLCritically crit06-54Azm [facility] HospitalComment on above:Performed By: #### TSH, LIPID, BMP, LIVER #### [facility] [address] [address] [address] Sanjuana Joséesterol in LDL [Mass/Vol]122.2 mg/dLOhioHealth Grove City Methodist [facility] on above:Performed By: #### TSH, LIPID, BMP, LIVER #### [facility] [address] [address] [address] Sanjuana Díaz.total/Cholesterol in HDL [Mass ratio]3.1 {ratio} NormalCorey HospitalComjohn d. dingell veterans affairs medical center on above:Performed By: #### TSH, LIPID, BMP, LIVER #### [facility] [address] [place] [address] Dr. Sanjuana Guzman NORMAL> or = 60 mg/dl - LOW CARDIOVASCULAR RISK <40 mg/dl - HIGH CARDIOVASCULAR RISKNoParkwood HospitalComment on above:Performed By: #### TSH, LIPID, BMP, LIVER #### [facility] [address] [place] [address] Dr. Sanjuana Lizarraga CALC NORMALSEE BELOWNoParkwood HospitalComment on above:Result Comment: <100 mg/dl OPTIMAL 100 - 129 mg/dl NEAR OR ABOVE OPTIMAL 130 - 159 mg/dl BORDERLINE HIGH 160 - 189 mg/dl HIGH >190 mg/dl VERY HIGH Performed By: #### TSH, LIPID, BMP, LIVER #### [facility] [address] [address] [address] Sanjuana KasperTriglyceride [Mass/Vol]44 mg/dLNormal<=150[facility] Comment on above:Performed By: #### TSH, LIPID, BMP, LIVER #### [facility] [address] [address] [address] Sanjuana JaraLDL CALC8.8 mg/dLNoParkwood HospitalComjohn d. dingell veterans affairs medical center on above: Performed By: #### TSH, LIPID, BMP, LIVER #### [facility] [address] [address] [address] Sanjuana Nevarez PROFILEon 80-15-9986Qqccflr [Mass/Vol]3.6 g/dLNormal3.4-5.0 The [facility] HospitalComment on above:Performed By: #### TSH, LIPID, BMP, LIVER ####[facility] [address] [address]Dr. Yilan ChangAlbumin/Globulin [Mass ratio]1.0 {ratio}NormalCorey Hospital Comment on above:Performed By: #### TSH, LIPID, BMP, LIVER ####[facility] [address] [address]Dr. Yilan ChangALP [Catalytic activity/Vol]91 U/PUqwgtz33-466Utl [facility] HospitalComment on above:Performed By: #### TSH, LIPID, BMP, LIVER ####[facility] [address] [place], [place] [address]Dr. Yilan ChangALT [Catalytic activity/Vol]28 U/L Roscfl15-21Ogn [facility] HospitalComment on above:Performed By: #### TSH, LIPID, BMP, LIVER ####[facility] [address] [place], [place] [address]Dr. Yilan ChangAST [Catalytic activity/Vol]16 U/HAyvnlj98-00Ang [facility] HospitalComment on above:Performed By: #### TSH, LIPID, BMP, LIVER ####[facility] [address] [address]Dr. Yilan ChangBILI, CONJUGATED0.1 mg/dLNormal0.0-0.2The [facility] HospitalComment on above:Performed By: #### TSH, LIPID, BMP, LIVER ####[facility] [address] [place], [place] [address]Dr. Yilan ChangBilirubin [Mass/Vol]0.4 mg/dLNormal 0.2-1.0The [facility] HospitalComment on above:Performed By: #### TSH, LIPID, BMP, LIVER ####[facility] [address] [address]Dr. Yilan ChangGlobulin (S) [Mass/Vol]3.6 g/dLNormalThe [facility] Comment on above:Performed By: #### TSH, LIPID, BMP, LIVER ####[facility] [address] [address]Dr. Yilan ChangProtein [Mass/Vol]7.2 g/dLNormal6.4-8.2The [facility] HospitalComment on above:Performed By: #### TSH, LIPID, BMP, LIVER ####[facility] [address] [address]Dr. Yilan ChangPROF CHEM 8 (BAS METB)on 03-06-2023 Anion gap [Moles/Vol]12.2 mmol/LNormalThe [facility] HospitalComment on above: Performed By: #### TSH, LIPID, BMP, LIVER ####[facility] [address] [place], [place] [address]Dr. Yilan ChangCalcium [Mass/Vol]9.1 mg/dL Normal8.5-10.1The [facility] Hospitalment on above:Performed By: #### TSH, LIPID, BMP, LIVER ####[facility] [address] [place], [place] [address]Dr. Yilan ChangChloride [Moles/Vol]106 mmol/LSjuczc56-900Aoh [facility] HospitalComment on above:Performed By: #### TSH, LIPID, BMP, LIVER ####[facility] [address] [place], [place] [address]Dr. Yilan ChangCO2 [Moles/Vol]26.9 mmol/JNbuyjo38.0-32.0The [facility] HospitalComment on above: Performed By: #### TSH, LIPID, BMP, LIVER ####[facility] [address] [place], [place] [address]Dr. Yilan ChangCreatinine [Mass/Vol]0.98 mg/dLNormal0.70-1.30The [facility] Hospitalment on above:Performed By: #### TSH, LIPID, BMP, LIVER ####[facility] [address] [address]Dr. Yilan ChangEGFR-AF BHUTANESE>60Normal>=60The [facility] HospitalComment on above:Performed By: #### TSH, LIPID, BMP, LIVER ####[facility] [address] [address]Dr. Yilan ChangEGFR-NON AF BHUTANESE>60Normal>=60The [facility] on above:Performed By: #### TSH, LIPID, BMP, LIVER ####[facility] [address] [address]Dr. Yilan ChangGlucose [Mass/Vol]94 mg/pFYzsaiz98-461Cuq [facility] HospitalComjohn d. [facility] on above:Performed By: #### TSH, LIPID, BMP, LIVER ####[facility] [address] [address]Dr. Yilan ChangPotassium [Moles/Vol]4.1 mmol/LNormal 3.5-5.1The [facility] HospitalComjohn d. [facility]ell [facility] on above:Performed By: #### TSH, LIPID, BMP, LIVER ####[facility] [address] [address]Dr. Yilan ChangSodium [Moles/Vol]141 mmol/KNjelyk173-751Bkh [facility] Hospitalment on above:Performed By: #### TSH, LIPID, BMP, LIVER ####[facility] [address] [address]Dr. Yilan ChangUrea nitrogen [Mass/Vol]17.0 mg/dLNormal7.0-18.0The [facility] on above:Performed By: #### TSH, LIPID, BMP, LIVER ####[facility] [address] [address]Dr. Yilan ChangUrea nitrogen/Creatinine [Mass ratio]17.3 mg/mgNormalThe [facility] HospitalComjohn d. [facility] on above:Performed By: #### TSH, LIPID, BMP, LIVER ####[facility] [address] [address]Dr. Yilan ChangTSHon 38-00-2199XZS9.951 uIU/mLNormal0.358-3.740The [facility] on above: Performed By: #### TSH, LIPID, BMP, LIVER #### [facility] [address] [place] [address] [address] [address] Sanjuana KasperCT FOOT LT WO CONon 21-60-1364TQ FOOT LT WO CONEXAMINATION: CT FOOT LT WO CON HISTORY: Non-union [...] Electronically authenticated by: RAZ MATOS Date: 2022-12-20 14:53NoParkwood HospitalPOINT OF CARE GLUCOSEon 57-86-1613Nrdxscz [Mass/Vol]94 mg/dL Lfdbdq44-734NtlCorey HospitalComment on above:Performed By: #### POCGLUC #### [facility] [address] [place] [address] Dr. Sanjuana KasperXR FOOT LT 2Von 74-12-0679YH FOOT LT 2VEXAM: XR FOOT LT 2V HISTORY: Pain COMPARISON: 08/01/2022 TECHNIQUE: 31 seconds of fluoroscopy. 9 images FINDINGS: Fluoroscopic images demonstrate fusion of the first metatarsal-phalangeal joint with a dorsal plate and screws. Likely osteotomy and placement of a single screw across the head of the second metatarsal IMPRESSION: First metatarsal-phalangeal joint fusion Electronically authenticated by: MARÍA BRYSON Date: 2022-09-27 18:28NoParkwood HospitalCovid-19 PCR (CVDTBH)on 29-10-7178FFRT-CoV-2 (COVID-19) RNA DAISY+probe Ql (Unsp spec)Not detectedNormalNOT DETECTEDThe [facility] Comment on above:Result Comment: This test is not yet approved or cleared by the [place] FDA. When there are no FDA-approved or cleared tests available, and other criteria are met, FDA can make tests available under an emergency access mechanism called an Emergency Use Authorization (EUA). The EUA for this test is supported by the Food And Beverage Attendant of Health and Human Service's (HHS's) declaration that circumstances exist to justify the emergency use of in vitro diagnostics for the detection and/or diagnosis of the virus that causes COVID- 19. This EUA will remain in effect (meaning [...] of clinical signs and symptoms consistent with SARS-CoV-2.Performed By: #### CVDTBH ####[facility] [address] [place], [place] [address]Dr. Yilan ChangPROF CHEM 8 (BAS METB)on 65-68-7126Rrntb gap [Moles/Vol]11.6 mmol/LNormalThe [facility] HospitalComment on above:Performed By: #### BMP ####[facility] Myhmr[address] [place], [place] [address]Dr.Yilan ChangCalcium [Mass/Vol]8.6 mg/dLNormal8.5-10.1The [facility] County HospitalComment on above:Performed By: #### BMP ####[facility] Vqokrqznza[address] [place], [place] [address]Dr.Yilan ChangChloride [Moles/Vol]107 mmol/BZnqcfz85-465Naq [facility] HospitalComment on above:Performed By: #### BMP ####[facility] Bsagmrmlyl[address] [place], [place] [address]Dr.Yilan ChangCO2 [Moles/Vol] 26.2 mmol/CAwnxlz97.0-32.0The [facility] HospitalComment on above:Performed By: #### BMP ####[facility] Xurfpqbsvc[address] [place], [place] [address]Dr.Yilan ChangCreatinine [Mass/Vol]1.28 mg/dLNormal0.70-1.30The [facility] HospitalComment on above:Performed By: #### BMP ####[facility] [address] [place] [address]Dr.Yilan ChangEGFR-AF BHUTANESE>60Normal>=60The [facility] HospitalComjohn d. [facility] on above:Performed By: #### BMP ####[facility] [address] [place] [address]Dr. Yilan ChangEGFR-NON AF NQPPNYBH05 mL/min/1.58b4Abcwsszceh low>=60The [facility] HospitalComment on above:Performed By: #### BMP ####[facility] Hntifegktq[address] [place], [place] [address]Dr.Sanjuana ChangGlucose [Mass/Vol]121 mg/dLCritically lhkh23-213Uno [facility] HospitalComjohn [facility] on above: Performed By: #### BMP ####[facility] Myjntvysfg[address] [place], [place] [address]Dr.Sanjuana ChangPotassium [Moles/Vol]3.8 mmol/LNormal 3.5-5.1The [facility] HospitalComment on above:Performed By: #### BMP ####[facility] Rshcdrpuzc[address] [place], [place] [address]Dr.Sanjuana Kasper Sodium [Moles/Vol]141 mmol/LYvhlwx173-904Syh [facility] on above: Performed By: #### BMP ####[facility] Kubsaptqmm[address] [place], [place] [address]Dr.Yilan ChangUrea nitrogen [Mass/Vol]24.0 mg/dL Critically high7.0-18.0The [facility] HospitalComjohn [facility] on above:Performed By: #### BMP ####[facility] Lwweumfybo[address] [place], [place] [address]Dr. Yilan ChangUrea nitrogen/Creatinine [Mass ratio]18.8 mg/mgNormalThe [facility] HospitalComjohn [facility]. [facility] on above:Performed By: #### BMP ####[facility] Vknxrsveuo[address] [place], [place] [address]Dr.Sanjuana ChangPROTIMEon 11-39-6817BLU Coag (PPP) [Relative time]1.05 {INR}NormalCorey Hospital Comment on above:Performed By: #### PTT, PT ####[facility] [address] [place] [address]Dr. Sanjuana AlphonsoR GUIDELINESSEE BELOWNormal Corey HospitalComment on above:Result Comment: DESIRED INR: 2.0 - 3.0 CONDITIONS NOT LISTED BELOW 2.5 - 3.5 FOR PROSTHETIC HEART VALVE REPLACEMENT 2.5 - 3.5 RECURRENT THROMBOSISPerformed By: #### PTT, PT ####[facility] [address] [place] [address]Dr. Carlayazmin KasperPT Coag (PPP) [Time]11.3 sNormal9.0-11.6The [facility] HospitalComment on above:Performed By: #### PTT, PT ####[facility] Fgfhvrlwgv[address] [place], [place] [address]Dr. Sanjuana KasperPTTon 63-37-3085tDEC Coag (Bld) [Time]30.0 mRawghv35.3-36.2 Core[facility] HospitalComment on above:Performed By: #### PTT, PT ####[facility] Upnefgtgii[address] [place], [place] [address]Dr. Carlayazmin KasperXR FOOT MOISES MIN 3 VIEWSon 10-20-1342KX FOOT MOISES MIN 3 VIEWSEXAMINATION: XR FOOT MOISES MIN 3 VIEWS HISTORY: [...] Electronically authenticated by: MARÍA BRYSON Date: 2022-08-01 17:51NormalThe [facility] HospitalCovid-19 PCR (CVDTB)on 23-09-9866FBXW-CoV-2 (COVID-19) RNA DAISY+probe Ql (Unsp spec)Not detectedNormalNOT DETECTEDThe [facility] Comment on above:Result Comment: This test is not yet approved or cleared by the [place] FDA. When there are no FDA-approved or cleared tests available, and other criteria are met, FDA can make tests available under an emergency access mechanism called an Emergency Use Authorization (EUA). The EUA for this test is supported by the Food And Beverage Attendant of Health and Human Service's (HHS's) declaration that circumstances exist to justify the emergency use of in vitro diagnostics for the detection and/or diagnosis of the virus that causes COVID- 19. This EUA will remain in effect (meaning [...] of clinical signs and symptoms consistent with SARS-CoV-2.Performed By: #### CVDTB #### [facility] [address] [place] [address] Dr. Sanjuana KasperBasophils Auto (Bld) [#/Vol]Ordered By: Miguel Astorga on 64-17-6132Tfuoyxykg (Bld) [#/Vol]0.1 10*3/uL0.0-0.2FKettering Health Behavioral Medical CenterBasophils/100 WBC Auto (Bld)Ordered By: Miguel Astorga on 04-19-2022 Basophils/100 WBC (Bld)0.9 %[facility] HospitalBlood hemoglobin measurement (mass/volume)Ordered By: Miguel Astorga on 00-15-3226Szpdkomoea (Bld) [Mass/Vol]14.3 g/dL13.0-17.0[facility] HospitalBlood leukocytes automated count (number/volume)Ordered By: Miguel Astorga on 18-70-3230EUE (Bld) [#/Vol]5.5 10*3/uL4.5-11.0[facility] COVID-19 Positive/NegativeOrdered By: Miguel Astorga on 80-24-7305WGSF-CoV-2 (COVID-19) N gene DAISY+probe Ql (Resp)NegativeNegativeMercy Health St. Elizabeth Youngstown HospitalComment on above:Testing for SARS-CoV-2 by RT-PCR This test was developed and its performance characteristics determined by [employer] ([employer]) and validated at the [facility]. This test has not been FDA [...] of time the declaration that circumstances exist ju stifying the authorization of the emergency use of in vitro diagnostic tests for detection of SARS-CoV-2 virus and/or diagnosis of COVID-19 infection under section 564(b)(1) of the Act, 21 U.S.C. 360bbb-3(b)(1), unless the authorization is terminated or revoked sooner.Creatinine and Glomerular filtration rate.predicted panel (S/P/Bld)Ordered By: Miguel Astorga on 04-19-2022 Creatinine [Mass/Vol]1.13 mg/dL0.64-1.27[facility] Eosinophils Auto (Bld) [#/Vol]Ordered By: Miguel Astorga on 04-19-2022 Eosinophils (Bld) [#/Vol]0.2 10*3/uL0.0-0.45[facility] Eosinophils/100 WBC Auto (Bld)Ordered By: Miguel Astorga on 04-19-2022 Eosinophils/100 WBC (Bld)3.9 %[facility] HospitalErythrocyte distribution width Auto (RBC) [Ratio]Ordered By: Miguel Astorga on 04-19-2022 Erythrocyte distribution width (RBC) [Ratio]14.1 %12.0-14.8[facility] HospitalEstimated glomerular filtration rate (GFR) non- Ordered By: Miguel Astorga on 23-37-4423EJQ/1.73 sq M.predicted among non- blacks MDRD (S/P/Bld) [Vol rate/Area]> 60 mL/MinMercy Health St. Elizabeth Youngstown HospitalHematocrit Auto (Bld) [Volume fraction]Ordered By: Miguel Astorga on 96-55-5243Pxplhzsppy (Bld) [Volume fraction]43.0 %38.8-50.0[facility] HospitalLaboratory - Hematology and Cell countsOrdered By: Miguel Astorga on 71-31-3959Oukpwphar RBC/100 WBC (Bld) [Ratio]0.1 %0-0.5FKettering Health Behavioral Medical CenterLymphocytes Auto (Bld) [#/Vol]Ordered By: Miguel Astorga on 46-06-4745Gfcsvgbbtuu (Bld) [#/Vol]1.4 10*3/uL1.00-4.8[facility] HospitalLymphocytes/100 WBC Auto (Bld)Ordered By: Miguel Astorga on 04-19-2022 Lymphocytes/100 WBC (Bld)25.7 %[facility] Auto (RBC) [Entitic mass]Ordered By: Miguel Astorga on 70-22-0069OXN (RBC) [Entitic mass] 29.9 pg27.5-35.2FKettering Health Behavioral Medical CenterMCHC Auto (RBC) [Mass/Vol] Ordered By: Miguel Astorga on 45-85-5920ISDB (RBC) [Mass/Vol]33.3 g/dL32.5-35.[address] [facility] HospitalMCV Auto (RBC) [Entitic vol]Ordered By: Miguel Astorga on 93-59-1860KZZ (RBC) [Entitic vol]89.8 fL83.5-101[facility] HospitalMonocytes Auto (Bld) [#/Vol]Ordered By: Miguel Astorga on 40-92-9960Rqgzisgyf (Bld) [#/Vol]0.4 10*3/uL0.0-0.8[facility] HospitalMonocytes/100 WBC Auto (Bld)Ordered By: Miguel Astorga on 04-19-2022 Monocytes/100 WBC (Bld)6.9 %[facility] HospitalNeutrophils Auto (Bld) [#/Vol]Ordered By: Miguel Astorga on 62-71-2467Btcnpdilpfn (Bld) [#/Vol] 3.5 10*3/uL1.8-7.7FKettering Health Behavioral Medical CenterNeutrophils/100 WBC Auto (Bld)Ordered By: Miguel Astorga on 29-91-7457Cubmjzvhqzd/100 WBC (Bld)62.6 % [facility] HospitalNo Panel InformationOrdered By: Miguel Astorga on 19-08-5984Buhcuyfqi GFR ()> 60 mL/MinMercy Health St. Elizabeth Youngstown HospitalComment on above:GFR estimated reference range: According to KDOQI guidelines, <60 ml/min/1.73m2 is sufficient todiagnose a patient with chronic kidney disease.Pharmacy Creatinine Clearance (ChemN/[facility] Children's HospitalPlatelet mean volume Auto (Bld) [Entitic vol]Ordered By: Miguel Astorga on 40-42-9842Hkhyteji mean volume (Bld) [Entitic vol]8.9 fL6.6-10.1FKettering Health Behavioral Medical CenterPlatelets Auto (Bld) [#/Vol]Ordered By: Miguel Astorga on 12-75-1386Ffienjkhi (Bld) [#/Vol]260 10*3/tB072-062OqbqiujgkMercy Health St. Elizabeth Youngstown HospitalRBC Auto (Bld) [#/Vol]Ordered By: Miguel Astorga on 55-87-7019JYF (Bld) [#/Vol]4.79 10*6/uL3.90-5.60Wood County Hospitalerum or plasma calcium measurement (mass/volume)Ordered By: Miguel Astorga on 04-19-2022 Calcium [Mass/Vol]9.1 mg/dL8.2-10.2FLima City Hospitalerum or plasma chloride measurement (moles/volume)Ordered By: Miguel Astorga on 60-19-1514Wcjzyacm [Moles/Vol]103 mmol/N23-015OdprepiiaMercy Health St. [facility] Hospital Serum or plasma glucose measurement (mass/volume)Ordered By: Miguel Astorga on 03-76-0283Znmomvd [Mass/Vol]102 mg/nG43-850OnwvlhdasMercy Health St. [facility] Hospital Comment on above:ADA recommended reference range Random Glucose Reference Range is dependent on time and content of last meal. Glucose of more than 200 mg/dL in a nonstressed, ambulatory subject supports the diagnosis of Diabetes Mellitus.Serum or plasma potassium measurement (moles/volume)Ordered By: Miguel Astorga on 25-90-5750Addtsprna [Moles/Vol]4.2 mmol/L3.5-5.1FLima City Hospitalerum or plasma sodium measurement (moles/volume)Ordered By: Miguel Astorga on 39-58-5432Rvipcx [Moles/Vol]137 mmol/U601-708HomokqfcwWood County Hospitalerum or plasma total carbon dioxide measurement (moles/volume)Ordered By: Miguel Astorga on 00-00-7622OP6 [Moles/Vol]25.0 mmol/L22.0-30.0Wood County Hospitalerum or plasma urea nitrogen measurement (mass/volume)Ordered By: Miguel Astorga on 04-19-2022 Urea nitrogen [Mass/Vol]18 mg/dL9-23[facility] Vital Signs Date TimeVital SignValuePerforming VdgwgvlguPfdrgkek91-58-1966 14:52-0400Body gxvoiv489.96 cmNorth Chapin MD Work Phone: [phone]10-24-2025 14:52-0400 Body mass index (BMI) [Ratio]33 kg/m2North Chapin MD Work Phone: [phone] [address]10-24-2025 14:52-0400 Body ulvqiqofkcy49.5 [degF]North Chapin MD Work Phone: [phone]10-24-2025 14:52-0400 Body .74 kgNorth Chapin MD Work Phone: [phone] [address]10-24-2025 14:52-0400 Diastolic blood xmjwxfdi84 mm[Hg]North Chapin MD Work Phone: [phone] [address]10-24-2025 14:52-0400 Heart rate56 /minNorth Chapin MD Work Phone: [phone] [address]10-24-2025 14:52-0400 Respiratory rate18 /minNancyc Tavares RUSSELL Work Phone: [phone]-[facility]10-24-2025 14:52-0400 SaO2% (BldA) [Mass fraction]96 %North Chapin MD Work Phone: [facility]10-24-2025 14:52-0400 Systolic blood yvplikmy274 mm[Hg]North Chapin MD Work Phone: [facility]10-08-2025 09:43-0400 Body zxbeme017 cmAmerica Ambrocio MD Work Phone: [facility]10-08-2025 09:43-0400Body mass index (BMI) [Ratio]32.12 kg/m2America Ambrocio MD Work Phone: [facility]10-08-2025 09:43-0400Body lyeutf122.49 kgAmerica Ambrocio MD Work Phone: [facility]08-20-2025 10:16-0400Body cmMichael Nikunjs DO Work Phone: [facility]08-20-2025 10:16-0400Body mass index (BMI) [Ratio]31.33 kg/i0Ottiefk Grillis DO Work Phone: [facility]08-20-2025 10:16-0400Body dbtyiq036.68 kgMichael Grillis DO Work Phone: [facility]08-06-2025 07:57-0400Body lskemf363 cmNorth Chapin MD Work Phone: [facility] DivisionFvtonvvckl15-45-8049 07:57-0400Body mass index (BMI) [Ratio]31.97 kg/m2North Chapin MD Work Phone: [facility] DivisionLvephihezy45-64-6036 07:57-0400Body temperature 97.5 [degF]North Chapin MD Work Phone: [facility] DivisionRcbvmlcidf40-85-1201 07:57-0400Body .95 kgNorth Chapin MD Work Phone: [facility] DivisionTonukjdwwc15-36-2766 07:57-0400Diastolic blood mm[Hg]North Chapin MD Work Phone: [facility] DivisionPbcxfkgvug05-74-1982 07:57-0400Heart rate68 /min North Chapin MD Work Phone: [facility] DivisionXnhmnwuvnk68-09-9037 07:57-0400Respiratory rate20 /minNorth Chapin MD Work Phone: [facility] DivisionLiyaafxuyq91-18-8310 07:57-5618SuB6% (BldA) [Mass fraction]95 %North Chapin MD Work Phone: [facility] DivisionAfzqjreupk18-72-3272 07:57-0400Systolic blood mm[Hg]North Chapin MD Work Phone: [facility] DivisionCyzcljawmo88-61-5329 12:41-0400Blood Pressure LocationPagood samaritan hospitalshelby IRAHETA [facility]05-12-2025 12:41-0400Body stsdjugsndt39.6 [degF]Natali IRAHETA [facility]05-12-2025 12:41-0400Diastolic blood vqehlvhi93 mm[Hg]Natali IRAHETA [facility] [place] [address]-12-2025 12:41-0400Heart rate66 /minPatrick OR Productivity [facility] [place] [address]-12-2025 12:41-0400Respiratory rate19 /minPatrick IRAHETA [facility] [place] [address]-12-2025 12:41-0400Systolic blood ekpqnalo838 mm[Hg]Natali IRAHETA [facility]05-05-2025 14:09-0400Body jfailg357 cmNorth Chapin MD Work Phone: [facility] DivisionXwlmxsikrw33-62-9820 14:09-0400Body mass index (BMI) [Ratio]33.38 kg/m2North Chapin MD Work Phone: [facility] DivisionZyktswsdxt21-09-9912 14:09-0400Body temperature 97.81 [degF]North Chapin MD Work Phone: [facility] DivisionBrczcecppq22-99-6229 14:09-0400Body wgiabj625.94 kgNorth Chapin MD Work Phone: [facility] DivisionNufnatzomj10-27-1270 14:09-0400Diastolic blood mm[Hg]North Chapin MD Work Phone: [facility] DivisionWqgfavqhqf94-06-6767 14:09-0400Heart rate64 /min North Chapin MD Work Phone: [facility] DivisionWpcutlvnob45-71-9804 14:09-0400Respiratory rate18 /minNorth Chapin MD Work Phone: [facility] DivisionKuvinxxybb93-36-5345 14:09-5094HpJ7% (BldA) [Mass fraction]97 %North Chapin MD Work Phone: [facility] DivisionAfmadfhxmd13-58-9897 14:09-0400Systolic blood xxmfikms298 mm[Hg]North Chapin MD Work Phone: [facility] DivisionUefmlxyluf34-20-4576 15:24-0400Body cm Bud SUBRAMANIAN Work Phone: noCox MonettNavlompsmf13-33-2005 15:24-0400Body mass index (BMI) [Ratio]31.97 kg/z1MjuikqxBud SUBRAMANIAN Work Phone: [facility] DivisionAsbxcdxchh53-68-3002 15:24-0400Body naieug257.95 kgMattbreanna SUBRAMANIAN Work Phone: [facility] DivisionAbuvtitmsq38-27-4688 15:33-0500Blood Pressure LocationPatricshelby IRAHETA [facility]11-18-2024 15:33-0500Body mjqbpitzdbe75.6 [degF]Natalitasha IRAHETA [facility]11-18-2024 15:33-0500Diastolic blood ukawdpmb70 mm[Hg]Natali IRAHETA [facility]11-18-2024 15:33-0500Heart rate60 /minPatrick IRAHETA [facility]11-18-2024 15:33-0500Respiratory rate16 /minPatrick IRAHETA [facility]11-18-2024 15:33-0500Systolic blood ehirshcl395 mm[Hg]Natalitasha IRAHETA [facility]11-13-2024 13:39-0500Body eyquel539 cmCecilia Anderson PA-C Work Phone: [facility]11-13-2024 13:39-0500Body mass index (BMI) [Ratio]31.33 kg/d7LuekgCecilia Jacksonhoff PA-C Work Phone: [facility] CenterPosterbee Zqiwmj37-76-4536 13:39-0500Body xlqpmi571.68 kgMeromie Anderson PA-C Work Phone: [facility]11-13-2024 13:39-0500Diastolic blood mm[Hg]Cecilia Anderson PA-C Work Phone: [facility] [employer] Yebkvd43-38-1620 13:39-0500Heart rate 66 /minMegan Verhoff PA-C Work Phone: [facility] [employer] Unygha15-12-8486 13:39-9401QaV3% (BldA) [Mass fraction]94 %Cecilia Verhoff PA-C Work Phone: [facility] [employer] Uvfzol27-86-9869 13:39-0500Systolic blood gdbrxlol312 mm[Hg]Cecilia Verhoff PA-C Work Phone: [facility] [employer] Tvwidx44-40-5859 15:47-0400Blood Pressure LocationPatrick IRAHETA [facility]07-31-2023 15:47-0400Diastolic blood recqkuey48 mm[Hg]Natali IRAHETA [facility]07-31-2023 15:47-0400Heart rate68 /minPatrick IRAHETA [facility]07-31-2023 15:47-0400Respiratory rate16 /minPatrick IRAHETA [facility]07-31-2023 15:47-0400Systolic blood mm[Hg]Natali IRAHETA [facility]06-13-2022 14:57-0400Blood Pressure LocationPatrick IRAHETA [facility] 06-13-2022 14:57-0400Diastolic blood qazelrgs20 mm[Hg] Natali IRAHETA [facility] 06-13-2022 14:57-0400Heart rate72 /minPacielo IRAHETA [facility] 06-13-2022 14:57-0400Respiratory rate16 /minPacielo IRAHETA [facility] 06-13-2022 14:57-0400Systolic blood ypawcdlf129 mm[Hg] Natali IRAHETA [facility] 05-27-2022 15:00-0400Diastolic blood fvuewlek60 mm[Hg] DO Miguel Astorga Work Phone: [phone] [address]05-27-2022 15:00-0400 Heart rate72 /Deborah Astorga Work Phone: [phone] [place], [place] [address]05-27-2022 15:00-0400 Respiratory rate16 /Deborah Astorga Work Phone: [phone] [place], [place] [address]05-27-2022 15:00-0400 SaO2% (BldA) [Mass fraction]95 %DO Miguel Astorga Work Phone: [phone] [place], [place] [address]05-27-2022 15:00-0400 Systolic blood jcuhwrrh855 mm[Hg]DO Miguel Astorga Work Phone: [phone] [place], [place] [address]05-27-2022 13:09-0400 Body vskilxvvowi25.5 [degF]DO Miguel Toribioceshelby Work Phone: [phone] [place], [place] [address]05-27-2022 13:09-0400 Inhaled oxygen flow rate6 L/Deborah Astorga Work Phone: [phone] [place], [place] [address]05-27-2022 12:40-0400 Body eyikvh990.96 cmDO Miguel Astorga Work Phone: [facility]05-27-2022 12:40-0400 Body mass index (BMI) [Ratio]30.9 kg/m2DO Miguel Astorga Work Phone: [facility]05-27-2022 12:40-0400 Body eezdoq314.4 kgDO Miguel Astorga Work Phone: [facility] Encounters Encounter DateEncounter TypeCare ProviderFacilityStart: 69-48-4559xtfqkkdhru Natali IRAHETAFacility:EU BellevueStart: 30-95-4167dtqarkgyhlIszvkld R WATERS Facility:CD:[id number]: 09-17-2025 End: 65-91-1702iqvpktsijkZrsp Naderer MD Work Phone: [facility]Start: 09-17-2025 End: 92-70-8530Cppqkdfc ReferredIsamar Dominguez [facility] Work Phone: Start: 09-17-2025 End: 91-72-0594gqrrkdhfirDznw Naderer MD Work Phone: -[facility] ClydeStart: 09-17-2025 End: 39-61-5352Nssgepo encounter procedureIsamar Dominguez [facility] Work Phone: Start: 09-11-6255hgsqdnamugHHIIV GRUBBUniversity [facility]CA [facility] Healthcare Westtart: 09-01-2025 End: 19-45-3111Bdcwqu outpatient new 30 minutesAmerica Ambrocio MD Work Phone: ProMedimohit Ambrocio OrthopaedicsComment on above:Primary osteoarthritis of left hip (Primary Dx); Status post total hip replacement, rightStart: 09-01-2025 End: 56-14-7470flexzjnfkyZETN J BEERProMetroHealth Parma Medical Centertart: 08-16-2025 End: 30-32-3537Qzsfhw Nae Gasca CMAProMedica Physicians [facility] OrthopaedicsComment on above:Left hip pain (Primary Dx)Start: 08-02-2025 ambulatoryPAWilson Healthtart: 07-27-2025 End: 39-08-1705nunazqgzdbWKOPUniversity Hospitals Beachwood Medical Centertart: 07-27-2025 End: 20-05-9378Dktycntky for other preprocedural examinationGrand Lake Joint Township District Memorial Hospitaltart: 36-29-0143pasqlguwhnESKTStrong [facility] Ambulatory PPGStart: 21-36-4685kuncgacuqqKFHPMorrow County Hospitaltart: 07-14-2025 End: 34-80-3312Dstidv outpatient new 20 minutesC[facility] DO Work Phone: [facility] General SurgeryComment on above: Chronic epididymitis (Primary Dx)Start: 07-14-2025 End: 19-01-9436kpzqmwciabWLUQQAEEastern State Hospital Ambulatory PPG Start: 07-02-2025 End: 16-85-2384Xjxguctwx Result EncounterNorth Chapin MD Work Phone: noms External Department UnsolicitedStart: 07-02-2025 End: 30-76-4392Sxphjgfwd Result EncounterNorth Chapin MD Work Phone: noms External Department UnsolicitedStart: 06-30-2025 End: 79-17-9789Pdaahb Brody Chapin MD Work Phone: noms CWM FMStart: 06-30-2025 End: 84-11-5139Mnggus Brody Chapin MD Work Phone: noms CWM FMStart: 06-30-2025 End: 35-42-9494tcngslohbuQDEC NADERERNot AvailableStart: 06-30-2025 End: 15-15-3725Puqapo outpatient visit 15 minutesNorth Chapin MD Work Phone: noms CWM FMComment on above:Inguinal pain, right (Primary Dx); H/O epididymitisStart: 01-34-6578lkzgonodslHUOTO GRUBBUniOhioHealth Shelby Hospitaltart: 87-15-6857vhnjxekgwfVKFV [facility] Hospitaltart: 05-12-2025 End: 13-08-8851Mvohsme encounter procedureEmily Flora Carpenter MD Work Phone: noms SWS DERMComment on above:Basal cell carcinoma (BCC) of right forearm (Primary Dx); Basal cell carcinoma of skin of left lower limb, including hipStart: 05-12-2025 End: 56-98-5843qkjhgbbnjvPJTOM A PETITTINot AvailableStart: 04-30-2025 End: 37-43-1814Ueqqpw flowsheetSakina Carpenter MD Work Phone: noms SWS DERMStart: 04-30-2025 End: 49-48-1286Qqiiapnamrata Carpenter MD Work Phone: noms SWS DERMStart: 04-30-2025 End: 61-04-2035Vhuriqp encounter procedureEmily Flora Carpenter MD Work Phone: noms SWS DERMComment on above:Basal cell carcinoma of skin of left lower limb, including hip (Primary Dx)Start: 04-30-2025 End: 89-99-8076bkfifevpzoABXWB A PETITTINot AvailableStart: 04-21-2025 End: 15-46-9462cwwjrayycbWMDWWVUMedicine Harrison Community Hospital CenterStart: 04-12-2025 End: 55-43-3453Rmfwkp follow up visit related to original Donna Hernandez NP Work Phone: NOMS FB ORTHOPAEDICSComment on above:Status post arthroscopy of left knee (Primary Dx)Start: 04-12-2025 End: 93-98-3527zbwerzsizfLLKWU T OLSENNot AvailableStart: 04-12-2025 End: 53-16-1750Tslfqa Jacob Hernandez NP Work Phone: NOM[facility] FB ORTHOPAEDICSStart: 04-12-2025 End: 49-36-1440Dmkszr flowsheetNneka Hernandez NP Work Phone: noms FB ORTHOPAEDICSStart: 77-20-7754bmjijmmjvrZXPO [facility] Hospitaltart: 04-05-2025 End: 98-65-8756mufglbmgtpVefnyjn Lisa ESEQUIELFacility:EU BellevueStart: 04-05-2025 End: 07-68-3339Cvrtgvd encounter procedurePacielo IRAHETA [facility] [place] start: 04-03-2025 End: 86-05-4809Dftivqwew Result EncounterNorth Chapin MD Work Phone: noms External Department UnsolicitedStart: 04-03-2025 End: 41-13-4667Oxmmtxegb Result EncounterNorth Chapin MD Work Phone: noms External Department UnsolicitedStart: 03-29-2025 End: 32-76-2434Nirnzs flowsTania Chapin MD Work Phone: noms CWM FMStart: 03-29-2025 End: 14-99-7265Lkjllq flowsTania Chapin MD Work Phone: noms CWM FMStart: 03-29-2025 End: 47-66-6830Qsjlbug encounter procedureNorth Chapin MD Work Phone: [facility] Work Phone: Start: 03-29-2025 End: 36-64-6847Vgddel follow up visit related to original Mehul Chapin MD Work Phone: noms CWM FMComment on above:Medicare annual wellness visit, subsequent (Primary Dx); Prediabetes; Dyslipidemia (CMS/HCC); Encounter for long-term (current) use of medications; Screening PSA (prostate specific antigen); Paroxysmal atrial fibrillation (CMS/HCC)Start: 03-29-2025 End: 60-21-8640gfcgjblageXTDZ NADERERNot AvailableStart: 03-24-2025 End: 54-97-7841Fxsexj Chelsea Carpenter MD Work Phone: noms SWS DERMStart: 03-24-2025 End: 81-89-0595Bdxvye Chelsea Carpenter MD Work Phone: noms SWS DERMStart: 03-24-2025 End: 75-54-6100Pdcjke outpatient visit 15 minutesEmrichard Carpenter MD Work Phone: noms SWS DERMComment on above:Seborrheic keratosis (Primary Dx); Actinic keratosis; Neoplasm of unspecified behavior of bone, soft tissue, and skin; Lentigines; History of malignant neoplasm of skinStart: 03-24-2025 End: 50-52-2356vpvstpmhbaFMWBS A PETITTINot AvailableStart: 2025 End: 91-75-6254Gtmvnn flowsRaphael Hernandez NUCLEAR WEAPONS SPECIALIST Work Phone: noms FB ORTHOPAEDICSStart: 2025 End: 70-83-8077Cdmewt Jacob Hernandez NUCLEAR WEAPONS SPECIALIST Work Phone: NOPB FB ORTHOPAEDICSStart: 2025 End: 40-14-1405Hzosgz follow up visit related to original Donna Hernandez NP Work Phone: noms FB ORTHOPAEDICSComment on above:Status post arthroscopy of left knee (Primary Dx)Start: 2025 End: 30-64-6036hsacijjdvvFHTHF T OLSENNot AvailableStart: 33-23-3394aijfmrmrdr PAUL [facility]: 03-01-2025 End: 56-97-4818ysrtfjgonsBFXBPA C STEPANICFacility:[facility] Hospitaltart: 02-26-2025 End: 74-60-3952LrczoiYtxla T Olsen NUCLEAR WEAPONS SPECIALIST Work Phone: NOXR FB ORTHOPAEDICSComment on above:Internal derangement of left knee (Primary Dx)Start: 81-68-3123nnyxxfkqvkGFOP [facility] Springfieldtart: 02-02-2025 End: 40-16-7183hcnykbsyarYUZVBZI J MEYERNot AvailableStart: 02-02-2025 End: 89-52-2504Ffzwevu encounter procedureMajimmy SUBRAMANIAN Work Phone: noms FB ORTHOPAEDICSComment on above:Pre-op examination (Primary Dx)Start: 02-02-2025 End: 01-10-5270Yxanrazaecfeh examination doneMajimmy SUBRAMANIAN Work Phone: [facility] Work Phone: Start: 02-02-2025 End: 29-22-9245Ygxhme flowsheetBud SUBRAMANIAN Work Phone: noms FB ORTHOPAEDICSStart: 02-02-2025 End: 34-42-8670Fugizu flowsheetBud SUBRAMANIAN Work Phone: noms FB ORTHOPAEDICSStart: 02-02-2025 End: 56-87-9480pbgscfkhbcTBHC A NADERERFacility:Annika HospitalStart: 07-12-8994Zcpptfjah for other preprocedural examinationGEORSARAH WALDROPMercer County Community Hospital HospitalStart: 12-25-2024 End: 70-02-1100Swwxtx flowsheetJr. Enrrique Sweeney Stepanic DO Work Phone: NOAM ORTHOStart: 12-25-2024 End: 72-94-5211Eafcmc flowsheetJr. Enrrique Sweeney Stepanic DO Work Phone: noms ORTHOStart: 12-25-2024 End: 50-42-6893Zotbkl outpatient visit 25 minutesJr. Enrrique Sweeney Stepanic DO Work Phone: noms PCF ORTHOComment on above:Left knee pain, unspecified chronicity (Primary Dx); Internal derangement of left kneeStart: 12-25-2024 End: 55-89-7310nmkhfcclaeOMENRRIQUE TamNot AvailableStart: 12-18-2024 ambulatoryLALOYDA [facility]tart: 12-11-2024 End: 73-33-4624Alrffpzbj encounterMaria B Apling NUCLEAR WEAPONS SPECIALIST Work Phone: NOOA FB ORTHOPAEDICSComment on above:RXStart: 12-10-2024 End: 85-19-0188Doiywjaxn encounterMaria B Apling NUCLEAR WEAPONS SPECIALIST Work Phone: NOMS SWS ORTHOComment on above:MRIStart: 12-05-2024 End: 56-62-9793HmuodiJgsi Naderer MD Work Phone: NOLD CWM FMComment on above:Anxiety disorder, unspecified type; Restless leg syndromeStart: 11-30-2024 End: 52-92-4935Mgwyxc flowsheetMaria B Apling NUCLEAR WEAPONS SPECIALIST Work Phone: NOSS CI ORTHOPAEDICSStart: 11-30-2024 End: 79-16-8022Ubzfgp flowsheetMaria B Apling NUCLEAR WEAPONS SPECIALIST Work Phone: NOLA CI ORTHOPAEDICSStart: 11-30-2024 End: 64-95-5050Lmekcr outpatient visit 15 minutesMaria B Apling NUCLEAR WEAPONS SPECIALIST Work Phone: noms CI ORTHOPAEDICSComment on above:Left knee pain, unspecified chronicity (Primary Dx); Arthritis of left knee; Internal derangement of left kneeStart: 11-30-2024 End: 14-90-3328xzqmkrhewaOUATT B APLINGNot AvailableStart: 99-29-1518qkrwsmwimu ROXANNE [facility]art: 11-10-2024 End: 72-91-7674acxnwjnbdpQIVW [facility]tart: 11-09-2024 End: 59-49-3760Ngovbl flowsheetMaria B Apling NUCLEAR WEAPONS SPECIALIST Work Phone: NOLV CI ORTHOPAEDICSStart: 11-09-2024 End: 87-14-8647Qfxqqe flowsheetMaria B Apling NUCLEAR WEAPONS SPECIALIST Work Phone: noms CI ORTHOPAEDICSStart: 11-09-2024 End: 50-13-3246Otipvm outpatient visit 25 minutesNancyelisa Peterson Roxi NUCLEAR WEAPONS SPECIALIST Work Phone: noms CI ORTHOPAEDICSComment on above:Left knee pain, unspecified chronicity (Primary Dx); Arthritis of left kneeStart: 11-09-2024 End: 18-66-4010uwhlaninttFSVWU B APLINGNot AvailableStart: 11-05-2024 End: 34-89-2528Ciohed flowsheetNaomi Pack PTANOMS CI PTStart: 11-05-2024 End: 36-01-6793Omoick flowsheetNaomi Pack PTANOMS CI PTStart: 11-05-2024 End: 89-90-2021qkuofwdprgSdjnaee Kelbley PTANOMS CI PTComment on above:Left knee pain, unspecified chronicity (Primary Dx)Start: 11-03-2024 End: 34-34-7360mskjrgcluoXnbpkng Lawrence PTANOMS CI PTComment on above:Left knee pain, unspecified chronicity (Primary Dx)Start: 11-03-2024 End: 13-19-9169Hshqab flowsJosep Escobedo PTANOMS CI PTStart: 11-03-2024 End: 02-53-1326Nlmlli Evie Escobedo PTANOMS CI PTStart: 10-29-2024 End: 16-18-6501Wognxm flowsheetSammantha Rowe PTNOMS CI PTStart: 10-29-2024 End: 73-69-8129Pmumay flowsheetSammantha Rowe PTNOMS CI PTStart: 10-29-2024 End: 27-84-1839auuudpkbltLjzxtryrm Rowe PTNOMS CI PTComment on above:Left knee pain, unspecified chronicity (Primary Dx)Start: 32-48-3718uctlbsblcqFMAQ [facility]tart: 10-27-2024 End: 13-41-9545jtgtjwplnvItcgndi Lawrence PTANOMS CI PTComment on above:Left knee pain, unspecified chronicity (Primary Dx)Start: 10-27-2024 End: 56-99-7428Qfzyac flowsheetFranco Escobedo PTANO CI PTStart: 10-27-2024 End: 21-84-6261Ekoljj flowsJosep Escobedo PTANO CI PTStart: 10-20-2024 End: 43-91-6492flnrwkhkpwGxdgmllnx Schneider PTNOMS CI PTComment on above:Left knee pain, unspecified chronicity (Primary Dx)Start: 10-20-2024 End: 63-93-1947Cfoppw flowsheetSsallie Rowe PTNOMS CI PTStart: 10-20-2024 End: 14-46-1629Vhsizl flowsheetSsallie Rowe PTNOMS CI PTStart: 10-14-2024 ambulatoryBucyrus Community Hospitaltart: 10-12-2024 End: 09-52-9042gcmzbbqiseUkixkhy R WATERSFacility:EU BellevueStart: 10-12-2024 End: 61-52-9123Kesnjuu encounter procedureNatali IRAHETA [facility] [place] start: 10-07-2024 End: 23-85-1549xixocumopgWAWKK N [facility] Southtart: 10-07-2024 End: 87-38-1933Qtbqvl outpatient visit 25 minutesCecilia Anderson PA-C Work Phone: [facility] Pain Management ClinicComment on above:Left knee pain, unspecified chronicity (Primary Dx)Start: 10-07-2024 End: 73-54-2150eoqoknvqmvMUVVO N [facility] HOSPITALSTEVEUniversity Hospitals Ahuja Medical Centertart: 08-13-2024 End: 79-45-4996Jcrgeh Chelsea Carpenter MD Work Phone: noMS SWS DERMStart: 08-13-2024 End: 29-16-6465Toebtqnamrata Carpenter MD Work Phone: noRES[facility] DERMStart: 08-13-2024 End: 90-82-8395Ktejzh outpatient visit 15 minutesEmrichard Carpenter MD Work Phone: noms [facility] DERMComment on above:Seborrheic keratosis (Primary Dx); Lentigines; Melanocytic nevus of trunk; Angioma of skin; Actinic keratosis; History of basal cell carcinoma; Neoplasm of unspecified behavior of bone, soft tissue, and skinStart: 08-13-2024 End: 98-20-8391aolqwfbgwpVFMNP A PETITTINot AvailableStart: 66-65-1867Cdktibx encounter procedureEmrichard Carpenter MD Work Phone: noCA HealthcareStart: 06-24-2023 End: 28-14-9452Ovbuqdp encounter procedurePacielo IRAHETA [facility] [place] start: 04-09-2023 End: 50-51-1585cqzpjfyjgiYZXD MARIA A .Facility:I7Jczym: 03-18-2023 End: 16-55-9741xyhxwotsdgHB Sakina Carpenter Work Phone: [facility] Work Phone: Start: 03-18-2023 End: 00-60-2984Lxzxksrv ReferredMD Sakina Carpenter Work Phone: [facility] [place] Work Phone: Start: 03-12-2023 End: 83-53-4513rtntlrxqitKB NORTH Hines NADERERFacility:R1Qeemc: 03-06-2023 End: 58-02-6378uzkxqlpplxYB NORTH Hines NADERERFacility:C9Jlxep: 12-20-2022 End: 55-28-8476uprutswqdkXV RAZ MATOSFacility:T8Njvvj: 12-18-2022 End: 37-91-6548cmrhkxjjpeJVTZGBJS CULLENFacility:S7Uxjgu: 12-06-2022 End: 99-24-9152snilgdljkgSP NORTH A NADERERFacility:J3Uqtxh: 11-06-2022 End: 12-12-6305yulmofimzjWSVUEVHL CULLENFacility:P5Izsbj: 10-16-2022 End: 66-74-7447qozfkeprgvJUTOLSUN CULLENFacility:T1Rieoc: 09-27-2022 End: 73-02-8706lzbyhvkonpKPJCY D [facility] HOSPITALFacility:L4Igxzd: 85-28-9290Oigstdpio for preprocedural cardiovascular examinationPETER [facility] HospitalStart: 67-35-5849Zfiatfpyg for preprocedural laboratory examinationPETER [facility] Hospitaltart: 08-41-0257gwmudxtmqvMPTPA D HIGHLANDER Facility:W0Tdahn: 09-21-2022 End: 02-02-1522dsxkafnmczCFDTM [facility]ENTERFacility:N4Nzbgu: 09-21-2022 End: 12-76-5169Jthziiboh for preprocedural cardiovascular examinationPETER [facility] CENTERFacility:Q0Vwuvu: 08-01-2022 End: 62-02-1245ilaysszjyaMCKNM D [facility] HOSPITALFacility:N3Wfqul: 06-04-2022 End: 66-91-7338dzufxxqvraTV NORTH A NADERERFacility:J9Kvubr: 05-15-2022 End: 27-22-8366esnaphtgmkVDJOSJMS CULLENFacility:B1Zsvyj: 05-07-2022 End: 23-84-6766Oorfpkd encounter procedureNatali IRAHETA [facility] [place] start: 04-27-2022 End: 72-77-6013ynunxxwykqGY PATRICK WATERS .Facility:S4Zfscl: 04-20-2022 End: 29-37-3394Xoiqgaijy to same day surgery centerDO Miguel Astorga Work Phone: [facility]Sur[facility] CampusStart: 04-19-2022 End: 12-90-8944Keaclny encounter procedureDO Miguel Astorga Work Phone: [facility]-Pre-[facility] Procedures DateProcedureProcedure DetailPerforming ClinicianStart: 99-09-0811Ft scrotum & contentsNorth Chapin MD Work Phone: Start: 05-12-2025 End: 79-49-2106RQGFOOOEMXS OF LESIONEmily Flora Carpenter MD Work Phone: Start: 42-47-7310CBAS EXCISIONEmily Flora Carpenter MD Work Phone: Start: 13-79-3156AJU HEMOGLOBIN Z6KSaidNorth Chapin MD Work Phone: Start: 03-24-2025 End: 84-45-1966LVCZ / NAIL BIOPSYEmily Flora Carpenter MD Work Phone: Start: 81-81-3625SOIDRXQWIWX SKIN LESIONEmily Flora Carpenter MD Work Phone: Start: 19-87-4872Qjigwwpgqxa of kneePatrick IRAHETA Start: 66-95-4917Rpccfvsmwqjcha aspir&/inj major jt/bursa w/o usMaria B Apling NUCLEAR WEAPONS SPECIALIST Work Phone: Start: 85-22-9069Kgerwqauno exam both knees standing anteropostMaria B Apling NUCLEAR WEAPONS SPECIALIST Work Phone: Start: 65-93-6254JYPO / NAIL BIOPSYEmily Flora Carpenter MD Work Phone: Start: 89-02-0111IATFRRKCISN SKIN LESIONEmily Flora Carpenter MD Work Phone: Start: 56-21-2729DssxzjivzkyCqnwe Petitti MD Work Phone: Start: 89-76-1738MIA screeningKIMBERLY CULLENComment on above:Performed By: #### PSAD ####[place] [address]DrYonatan KasperStart: 75-30-2492QQ Cheek Lesion Exc W/Flap Recon (Not Applicable)DO Miguel Astorga Work Phone: colonoscopyPagood samaritan hospitalk IRAHETA ft (qualifier value)Natali IRAHETA Prosthetic arthroplasty of the hipPatrick IRAHETA Removal of Basal Cell on NosePatrick IRAHETA Repair of inguinal herniaPatrick IRAHETA Titanium Plate Left ArmPatrick IRAHETA Tonsillectomy and adenoidectomyPagood samaritan hospitalk IRAHETA Plan of Treatment DateCare ActivityDetailAuthorStart: 96-54-9542Kskartpxm for malignant neoplasm of colonNOMS HealthcareStart: 35-96-3906WMgB,Tdap and Td Vaccines (2 - Tdap) DTaP,Tdap and Td Vaccines (2 - Tdap)[facility] SystemStart: 09-01-2026 Adult BMI ScreeningAdult BMI ScreeningProWilson Healthca Health SystemStart: 07-14-2026 Adult BMI ScreeningAdult BMI ScreeningProWilson Healthca Health SystemStart: 07-14-2026 Tobacco ScreeningTobacco ScreeningProWilson Healthca Health SystemStart: 03-29-2026 Medicare Annual Wellness (AWV)Medicare Annual Wellness (AWV)[facility] Start: 12-06-2025 End: 09-60-2538Fzqcvpt encounter hobhpyvjf17/12/2026 9:00 AM EST Office Visit [facility] [address] [facility] [address] [place] [address] America Ambrocio MD [address] [facility] [place], [place] [phone] (Work) [facility] OrthopaedicsStart: 54-70-8706Uipop BMI ScreeningAdult BMI ScreeningProMedica Health SystemStart: 49-37-1869Avsusso ScreeningTobacco ScreeningProWilson Healthca [facility] SystemStart: 09-29-2025 End: 92-91-9024Vphedwy encounter yevojmnwr85/05/2025 1:45 PM EST Office Visit NOMChris [facility] [address] [place] [address] North Chapin MD [address] [place] [address] NOMS CWM FMStart: 09-28-2025 End: 27-10-7223Iasfett encounter procedureNOMS SWS DERMStart: 09-23-2025 End: 78-41-3579Miksbcw encounter /30/2025 2:45 PM EDT Procedure visit [facility] [address] [place] [address] Tavares Eng PA [address] [facility] [place], [place] [phone] [facility] OrthopaedicsStart: 66-34-7347AldngcludWood County Hospitaltart: 09-17-2025 Aerobic CultureAerobic CultureWood County Hospitaltart: 09-17-2025 Anaerobic CultureAnaerobic CultureWood County Hospitaltart: 37-15-7512Ujiajsumcwa observation [Identifier] in Unspecified specimen by Gram stainWood County Hospitaltart: 09-01-2025 End: 29-42-8252Cwjnjmj encounter utfjvswff30/08/2025 10:00 AM EDT Office Visit [facility] [address] [place] [address] America Ambrocio MD [address] [facility] [place], [place] [phone] [facility] OrthopaedicsStart: 08-16-2025 End: 69-10-1105FE Pelvis and Hip - left 2 ViewsX-ray hip left 2-3 views with or without pelvis Imaging Routine Left hip pain Expected: 08/16/2025,Expires: 08/16/2026[facility] Work Phone: Comment on above:Expected: 08/16/2025, Expires: 08/16/2026Start: 32-99-3936JOLWI-19 Vaccine ( season)COVID-19 Vaccine ()[facility] Huntersvilletart: 65-29-9144Netjdkpbq vaccinationDELTA COMMUNITY [facility]ICAL [facility]ENTER HealthcareStart: 06-30-2025 End: 27-95-5498RP Scrotum and testicleUS scrotum Imaging Routine Inguinal pain, right H/O epididymitis Expected: 06/30/2025, Expires: 06/30/2026[facility] Work Phone: Comment on above:Expected: 06/30/2025, Expires: 06/30/2026Start: 05-12-2025 End: 29-17-7504Hueoyrx encounter zmwejspqp09/18/2025 1:20 PM EDT Procedure Visit [facility] [address] [place] [address] Sakina Carpenter MD [address] [place] [address] [facility] DERMStart: 04-30-2025 End: 49-78-9116Fpiyjbj encounter vmhwkawzc45/06/2025 10:20 AM EDT Office Visit [facility] [address] [place] [address] Sakina Carpenter MD [address] [place] [address] [facility]rivedMED[facility] CENTER BARBOUR DERMComment on above:ArrivedStart: 04-28-2025 End: 90-13-7449Yqrtxjo encounter aoezsurcv21/04/2025 4:00 PM EDT Office Visit [facility] [address] [place] [address] Sakina Carpenter MD [address] [place] [address] NOMS SWS DERMStart: 04-12-2025 End: 43-51-1528Hubwtri encounter procedureNOMS FB ORTHOPAEDICSComment on above: ArrivedStart: 03-29-2025 End: 70-67-4868Kkkyd metabolic 1998 panel - Serum or PlasmaBasic metabolic panel Lab Routine Encounter for long-term (current) use of medications Expected: 03/2025 (Approximate), Expires: 03/29/2026NOMS HealthcareComment on above: Expected: 03/29/2025 (Approximate), Expires: 03/29/2026Start: 03-29-2025 End: 72-17-1561Ihdgqhucyl A1c/Hemoglobin.total in BloodHemoglobin A1c Lab Routine Prediabetes Expected: 03/29/2025 (Approximate), Expires: 03/29/2026[facility] Work Phone: Comment on above:Expected: 03/29/2025 (Approximate), Expires: 03/29/2026Start: 03-29-2025 End: 40-48-0543Wuhro 1996 panel - Serum or PlasmaLipid panel Lab Routine Dyslipidemia ([facility]/HCC) Expected: 03/29/2025 (Approximate), Expires: 03/29/2026 NOMS HealthcareComment on above:Expected: 03/29/2025 (Approximate), Expires: 03/29/2026Start: 03-29-2025 End: 95-90-2925Iowkucw encounter procedureNOMS CWM FMComment on above:Arrived Start: 03-24-2025 End: 92-63-8169Zmvaueo encounter fwxlopeht26/30/2025 1:00 PM EDT Office Visit [facility] [address] [place] [address] Sakina Carpenter MD [address] [place], [place] [phone] ArrivedNOMS SWS DERMComment on above:ArrivedStart: 03-23-2025 End: 80-37-0909Btjyjns encounter procedureNOMS SWS DERMStart: 03-22-2025 End: 99-46-3562Fpyidsp encounter tfgybniyr37/28/2025 11:30 AM EDT Office Visit [facility] [address] [place] [address] [place]in MD [address] [place] [address] NOMS CWM FMStart: 04-23-2025Medicare Annual Wellness (AWV)Medicare Annual Wellness (AWV)[facility]S HealthcareStart: 2025 End: 11-92-8989Hvckfyc encounter procedureNOMS FB ORTHOPAEDICSComment on above: ArrivedStart: 02-22-2025 End: 56-56-7165Byqmxhs encounter bpivuxxgx84/31/2025 1:35 PM EDT Office Visit [facility] [address] [place] [address] Sakina Carpenter MD [address] [place], [place] [phone] NOMS SWS DERMStart: 02-11-2025 End: 09-26-5328Ckghixv encounter pawbwuyen89/20/2025 1:05 PM EDT Office Visit [facility] [address] [place] [address] Sakina Carpenter MD [address] [place] [address] NOMS SWS DERMStart: 02-02-2025 End: 96-81-9709Buhmtxo encounter tifvcpwnm65/11/2025 3:00 PM EDT Office Visit [facility] [address] [place] [address] Bud Cummins PA [address] [place] [address] NOMS FB ORTHOPAEDICSStart: 12-25-2024 End: 82-84-5254Izrinuc encounter procedureNOMS PCF ORTHOComment on above:Arrived Start: 12-09-2024 End: 57-13-1122Khqeucg encounter ivgsfiawn08/15/2025 1:30 PM EST Office Visit [facility] [address] [place] [phone] Cecilia Anderson PA-C [address] [place] [address] [facility] ClinicStart: 11-30-2024 End: 79-93-1461EQ Knee - left WO contrastMR knee left wo IV contrast Imaging Routine Internal derangement of left knee Expected: 11/30/2024 (Approximate), Expires: 11/30/2025[facility] Work Phone: Comment on above:Expected: 11/30/2024 (Approximate), Expires: 11/30/2025Start: 11-30-2024 End: 65-83-3192Eiipupy encounter procedureNOMS CI ORTHOPAEDICSComment on above: Left knee pain, unspecified chronicity (Primary Dx); Arthritis of left kneeStart: 11-16-2024 End: 29-79-6735sitovvjouv37/23/2024 2:00 PM EST Treatment [facility] [address] [place] [address] Yenny Rowe, PTNOMS CI PTStart: 11-12-2024 End: 99-75-4989unrajslgtx74/19/2024 5:00 PM EST Treatment [facility] [address] [place] [address] Naomi Pack, SHELLFISH SORTER NOMS CI PTStart: 11-09-2024 End: 76-16-2847seeuvesifp00/16/2024 4:00 PM EST Treatment [facility] [address] [place] [address] Yenny Rowe, PTNOMS CI PTStart: 11-09-2024 End: 43-12-3132Bhwaymj encounter procedureNOMS CI ORTHOPAEDICSComment on above: Left knee pain, unspecified chronicity (Primary Dx); Arthritis of left kneeStart: 11-05-2024 End: 01-96-2391ebozyxbaazHWTG CI PTComment on above:ArrivedStart: 11-03-2024 End: 32-01-5495ydmieyyntcSESK CI PTComment on above:ArrivedStart: 10-29-2024 End: 21-79-4713iknjojdlkvHIWH CI PTComment on above:ArrivedStart: 10-27-2024 End: 42-85-7667gxohyvauqiBARE CI PTComment on above:ArrivedStart: 08-13-2024 End: 98-03-7147Itraftz encounter fcccuujve71/19/2024 9:45 AM EDT Office Visit NOMChris [facility] [address] [place] [address] Sakina Carpenter MD [address] [place] [address] ArrivedNOMS SWS DERMComment on above:ArrivedStart: 46-54-1420COORD-19 Vaccine ( season)COVID-19 Vaccine ( season)[facility] SystemStart: 80-69-6185LBKDL-19 Vaccine ( season)COVID-19 Vaccine ( season)[facility] SystemStart: 72-67-5409Zwpeecsge vaccinationInfluenza Vaccine (#1)[facility] HealthcareStart: 64-21-5395Gtgndytkslx Wound CultureSuperficial Wound CultureWood County Hospitaltart: 99-85-4775Ocxd Risk ScreeningFall Risk ScreeningProWilson Healthca [facility] SystemStart: 67-45-0424Qsckj BMI Follow Up PlanAdult BMI Follow Up Plan ProMPerham Health Hospital SystemStart: 29-80-8438Kfjgfytucv ScreeningDepression Screening ProMLafene Health Centertart: 1952Medicare Annual Wellness (AWV)Medicare Annual Wellness (AWV)[facility]OMS HealthcareStart: 01-61-1960Mobqqkghg for malignant neoplasm of colonNOMS HealthcareBacteria identified in Unspecified specimen by Aerobe cultureMercy Health St. Elizabeth Youngstown HospitalBacteria identified in Unspecified specimen by Anaerobe cultureMercy Health St. [facility] Dermatopathology examDermatopathology exam Pathology and Cytology Timed Neoplasm of unspecified behavior of bone, soft tissue, and skin Release Upon Ordering for 1 Occurrences starting 08/13/2024[facility] Healthcare Work Phone: comment on above:Release Upon Ordering for 1 Occurrences starting 08/13/2024ermatopathology examDermatopathology exam Pathology and Cytology Timed Neoplasm of unspecified behavior of bone, soft ti ssue, and skin Release Upon Ordering for 1 Occurrences starting 03/24/2025[facility] Healthcare Work Phone: comment on above:Release Upon Ordering for 1 Occurrences starting 03/24/2025Dermatopathology examDermatopathology exam Pathology and Cytology Timed Basal cell carcinoma of skin of left lower limb, including hip Release Upon Ordering for 1 Occurrences starting 04/30/2025[facility] Healthcare Work Phone: comlqpr on above:Release Upon Ordering for 1 Occurrences starting 04/30/20254573QQLY-DeT-2 (COVID-19) N gene [Presence] in Respiratory specimen by DAISY with probe detectionWhite Hospital Work Phone: End: 74-33-0791BR Knee - left 3 ViewsX-ray knee left 3 views Imaging Routine Left knee pain, unspecified chronicity 1 Occurrences starting 10/07/2024 until 10/07/2025[employer] Work Phone: Comment on above:1 Occurrences starting 10/07/2024 until 10/07/2025XR Knee - left 3 ViewsX-ray knee left 3 views Imaging Routine Left knee pain, unspecified chronicity 10/07/2024 2:40 PM [facility] Immunizations Immunization DateImmunizationNotesCare [id number] virus vaccine, unspecified formulationP[facility] [facility] [place] [facility] [place]09-28-2023influenza virus vaccine, unspecified formulationSakina Carpenter MD Work Phone: [facility] [place]10-09-2022influenza virus vaccine, unspecified formulationMsCastleOS [facility] [place]11-11-2021SARS-CoV-2 (COVID-19) mRNA BNT-162b2 vaxSemadic [facility] [place]09-20-2021influenza virus vaccine, unspecified formulationSemadic [facility] [place]09-20-2021pneumococcal polysaccharide vaccine, 23 valentSemadic [facility] [place]04-28-2021SARS-CoV-2 (COVID-19) mRNA BNT-162b2 [employer] [facility] [facility] comment on above:Result Comment: [id number] SARS-CoV-2 (COVID-19) mRNA-1273 vaccineSemadic [facility] [id number]-LpH-8 (COVID-19) mRNA BNT-162b2 vax Antali OR Productivity [facility]04-01-2021SARS-CoV-2 (COVID-19) mRNA BNT-162b2 vaxSemadic [facility] comment on above:Result Comment: [id number] influenza virus vaccine, unspecified formulationPaCastleOS [facility]09-11-2020pneumococcal conjugate vaccine, 13 valentPaCastleOS [facility]10-07-2019influenza virus vaccine, unspecified formulationPaCastleOS [facility]08-14-2018influenza virus vaccine, unspecified formulationPaCastleOS [facility]08-14-2018zoster vaccine recombinantSemadic [facility]05-01-2018zoster vaccine recombinantSemadic [facility]09-14-2017influenza virus vaccine, unspecified formulationPaCastleOS [facility]09-01-2017influenza virus vaccine, unspecified formulationPaCastleOS [facility]08-25-2016influenza virus vaccine, unspecified formulationPaCastleOS [facility]10-10-2015influenza virus vaccine, unspecified formulationPaCastleOS [facility] Payers DatePayer CategoryPayerPolicy [id number] 2023MedicaidAETNA MEDICARE ADVANTAGE [id number] 2023MedicareAETNA MEDICARE ADVANTAGE AETNA MEDICARE REPLACEMENT [id number] 2022- [address] [place] [id number] Medicare HMOAETNA MEDICARE [id number] 59-86-2022Mjdzcyf Health [id number] Private Health YaecolgcsNZOD114R [id number] [id number] Health [id number] [id number] 2.16.840.1.638800.3.579.2.23230-25-9714Lyerhds5338584 2.16.840.1.052351.3.579.2.35637-40-8523Rsgjzwe2605758 2.16.840.1.327893.3.579.2.97571-82-7638Bcacnsr2331548 2.16.840.1.954908.3.579.2.40087-24-0082Xvrxsih2795063 2.16.840.1.717627.3.579.2.86949-55-9172Vatsjiv0226170 2.16.840.1.236736.3.579.2.42782-29-2706Iugdnam0005819 2.16.840.1.298705.3.579.2.98642-12-5870Xyixtun5238849 2.16840.1.595823.3.579.2.14098-44-5517Bzzagzx6770274 2.16.840.1.795233.3.579.2.53616-54-3355Liizrwm8843987 2.16.840.1.525354.3.579.2.67634-41-0377Xaaneat1097863 2.16.840.1.315247.3.579.2.42278-57-6900Zaelzud2454856 2.16.840.1.546105.3.579.2.55259-10-4518Jenbswv8444808 2.16.840.1.261228.3.579.2.24374-27-6498Edzxvgj4982226 2.16.840.1.973892.3.579.2.71629-01-8849Uuffygu3070093 2.16.840.1.942159.3.579.2.65933-98-8671Qbyhvnx97732686 2.16.840.1.778818.3.579.2.198651-47-0390Idmtnog30452047 2.840.1.976071.3.579.2.569311-14-9267Bguzbmx91829564 2.840.1.330212.3.579.2.73377-73-1985Ovodktu51118673 2.840.1.852254.3.579.2.23982-06-0902Pqcfofq87010658 2.0.1.466312.3.579.2.516770-64-6363Zfcvqxw31139848 2.0.1.616880.3.579.2.009775-69-0970Uhmhnam72264627 2.0.1.980010.3.579.2.651068-70-0680Abryrni0610263 2.840.1.161493.3.579.2.167015-79-1355Dnzlkcu9584216 2.0.1.598038.3.579.2.234537-56-1915Lpfiykl4219905 2..1.055519.3.579.2.072418-55-0992Tuiujnb8043195 2.0.1.693414.3.579.2.945578-96-3518Eyshbwi6566660 2.0.1.836188.3.579.2.881090-76-8496Xaglglw9424329 2.840.1.064797.3.579.2.852320-36-4617Zgffflk6606014 2.840.1.599780.3.579.2.798735-33-5575Qbvaics0130414 2.16.840.1.440939.3.579.2.498361-71-8629Rqhanvr1202465 2.840.1.258414.3.579.2.661182-93-7376Cpbgbqy6370305 2.840.1.803640.3.579.2.328049-02-4586Pcidwdu2649118 2.0.1.726961.3.579.2.813016-80-5352Tqbvujt5444241 2.0.1.605343.3.579.2.460811-11-4349Qgloiuj2954632 2.0.1.571832.3.579.2.547068-49-2690Wxrvhiw0459362 2.0.1.206763.3.579.2.104981-58-7599Obeobza0976743 2.840.1.581271.3.579.2.019127-31-9723Jgtqhcj466121871 2.0.1.100612.3.579.2.562742-46-3779Nobqfzi758628621 2.840.1.937998.3.579.2.841154-74-1379Orregci13891340 2.0.1.461306.3.579.2.16188-84-9925Ejvnccr35601875 2.840.1.361565.3.579.2.87327-42-2436Awmgucq91683921 2.840.1.774471.3.579.2.64687-53-4219Ryuymkm986671330 2.840.1.109986.3.579.2.647648-31-6953Hmwcoym659983852 2.840.1.367026.3.579.2.7701Elfmkfn806927180221 40049u00-5zz8-694q-6761-d5yuj2d39229Ossetrg33586580 2.16.840.1.724448.3.579.2.531 Social History DateTypeDetailFacilityStart: 04-20-2022 End: 44-53-8990Ykttjri smoking statusNever smoked tobacco (finding)[facility] Work Phone: Start: 01-05-2021 End: 65-20-0906Smx Assigned At [facility] start: 11-25-2296Ayu [facility] TownshipTobacco smoking statusNeverExecutive Urology of Centervilletart: 01-29-2023 End: 86-34-5477Adjllqk use and exposureSmokeless tobacco non-userNOMS Healthcare Start: 08-13-2024 End: 70-83-9747Ievagczdr beverage intakeEx-drinker (finding)[facility] Start: 01-05-2021 End: 95-59-2582Ieicgiq of Social functionNOMS HealthcareDo you belong to any clubs or organizations such as samaritan groups, unions, fraternal or athletic fabien ups, or school groups?YesNOMS HealthcareAre you now , , , , never or living with a partner?MarriedNOMS HealthcareHow often to you have a drink containing alcohol?2-4 times a monthNOMS HealthcareHow many standard drinks containing alcohol do you have on a typical day?1 or 2NOMS HealthcareHow often do you have 6 or more drinks on 1 occasion?NeverNOMS HealthcareDo you feel stress - tense, restless, nervous, or anxious, or unable to sleep at night because yourmind is troubled all the time - these days [OSQ] Not at allNOMS Healthcare(I/We) worried whether (my/our) food would run out before (I/we) got money to buy more.Never trueNOMS HealthcareIn the past 12 months, was there a time when you were not able to pay the mortgage or rent on time?NoNOMS HealthcareStart: 38-56-6878Aujouzq Commentcaffeine 1-2 cups per day N[facility] HealthcareStart: 05-08-8404Vfs assigned at birthNot on fileNOCA Healthcare Start: 10-07-2024 End: 49-93-2958Kqnwblpdw beverage intakeCurrent drinker of alcohol (finding) [facility] [employer] SystemStart: 06-30-2015 End: 29-90-4794IdcJlex (finding)[facility] HospitalUeeeU.com SystemStart: 48-55-0315Zhfmhd identityIdentifies as male gender (finding)[facility] HospitalmadKasttart: 78-70-3797Zwgdix orientationHeterosexual (finding)ProMst. vincent's st. [email or web address].com SystemSexual OrientationExecutive [facility]rology of [facility] Medical Equipment Procedure CodeEquipment CodeEquipment Original TextEquipment IdentifierDatesMesh Brd Perfix Plug Med Rpl 73612 Rpl 374227 - [id number] - [id number]: 57-05-3805Ghut Brd Preshape Hawkins 3x5 Rpl 389201 - [id number] - [id number] Start: 72-95-9164Vxmxtth on above:Description: 13.7 cm x 5.9 cm cut to fit defectLinr Actb 36mm F Ntrl E1 Clr - [id number]: 71-63-9007Oo Fem 36mm Opt G7 Blx D Hip Rpl 650-1057 - [id number]: 24-40-8258Fef Fem Opt +3mm Tpr Hip Blx D Rpl 650-1067 - [id number]_cnjQrdnr: 50-39-7529Kgy Fem 125mm 133d 20 Hi Os - [id number]: [id number]_ykzThapo: 07-10-2017 Goals DatePatient GoalDesired Activity/StatePersonal health goalComment on above: Evaluation of progress towards goal: Maximize work with PT at discharge to strengthen R hip Functional Status CzdhTgxbeomvaaCslviyHfqszlaz42-77-9185Akusozzkqy StatusN/AExec[facility]rology of [facility] [place]05-05-2025Patient Health Questionnaire 2 item (PHQ-2) [Reported][facility] DivisionFanenytgnr88-28-6791Syfaiisxjp StatusN/AExec[facility]07-31-2023Functional StatusN/A [facility]06-13-2022Functional StatusN/AExec[facility] Clinical Notes 05-07-2022 to 09-17-2025 Note Date & YfxwYjjtWmxeflzx64-42-2552 Evaluation note* Diagnosis Onset Date Resolution Status Admit Date Encounter for wound care noneactiveOctober 2024 2:36pm [facility] Work Phone: 1(338) 691-379410-24-2025 Hospital Discharge instructionsAmbulatory Orders* Referral to Wound Care Time Frame: 09/17/25, Location: None Selected [facility] Work Phone: 1(969) 249-758710-08-2025 History of Present illness Narrative* America Ambrocio MD - 09/01/2025 10:00 AM EDT Subjective Patient ID: Oscar Escoto is a [...] Defer Past Medical History: Diagnosis Date Afib (CMS-HCC) Back pain lumbar BPH (benign prostatic hyperplasia) 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 Provider Statement: IAmerica MD personally performed the services described in the documentation, as scribed by Milagros Rondon in my presence, and it is both accurate and complete. nehemias Triplett 09/01/25 10:10 AM America Ambrocio MD 09/01/25 1014 documented in this encounterSelect [facility]-2025 NoteUT Electrophysiology Consult Note Reason for visit: Dizziness/SVT [...] years ago here he was admitted to [facility] with A. fib with rapid ventricular [...] 48 hours from 12/24/2021 to 12/10/2021 at [facility] was reviewed by me and shows PVC burden of less than 1% and PVC count of 6%. Occasional nonsustained atrial tachycardia few beats seen but no atrial fibrillation noted. No ventricular tachycardia noted EKG 10/17/2021 shows sinus rhythm with normal intervals Echocardiogram done at [place] on 09/06/2021 shows ejection fraction of 60% [...] stress test - Arrhyth (more content not included)...[facility] 07-14-2025 History of Present illness Narrative* Kavya Germain DO - 07/14/2025 10:15 AM EDT Images from the original note were not included. [facility] [address] [facility] [address] CONSULT NOTE CHIEF COMPLAINT Chief Complaint Patient presents with Hernia RECURRENT RIGHT SIDE INGUINAL HERNIA, REFERRED BY DR TAVARES Levin Kaleb is a 75 y.o. male who [...] not have not an ultrasound performed at [facility] on 07/02/2025 which demonstrated no evidence of testicular mass torsion orchitis or epididymitis. There were bilateral varicoceles andsmall bilateral hydroceles. 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 He also plays pickleball 3 times a week in [place]. He wears an athletic supporter which helps with his discomfort. He does not wear it all the time. He wanted another opinion. MEDICATION Current Outpatient Medications: acetaminophen (TYLENOL ARTHRITIS) 650 mg 8 hr tablet, Take 1 tablet (650 mg total) by mouth every 8(eight) hours as needed for pain., Disp: , [...] mg total) by mouth in the morning., Disp:, Rfl: finasteride (PROSCAR) 5 mg tablet, , [...] 02/08/2023 Performed by Umair Decker MD at [facility] INJECTION BURSA LARGE JOINT: left ischial bursa Left 08/16/2023 Performed by Umair Decker MD at [facility] INJECTION LARGE JOINT BURSA Right 04/12/2017 Performed by Umair Decker MD at [facility] INJECTION MEDIAL BRANCH NERVE BLOCK: right [id number] 45 51mbb Right 08/12/2020 Performed by Umair Decker MD at [facility] INSERTION LOOP RECORDER 01/24/2023 Dr Amin at [facility] JOINT REPLACEMENT right hip ORTHOPEDIC SURGERY Left 2012 wrist fixation RADIO FREQUENCY ABLATION: right [id number] Right 09/23/2020 Performed by Umair Decker MD at [facility] REPAIR HERNIA INGUINAL WITH MESH Right 09/23/2018 Performed by Kavya Germain DO at [facility] REPAIR HERNIA UMBILICAL WITH MESH N/A 09/23/2018 Performed by Kavya Germain DO at [facility] TOTAL JOINT ANTERIOR SUPINE INTERMUSCULAR HIP Right 07/10/2017 Performed by America Ambrocio MD at [facility] SKIN BIOPSY several, see sas programmer analyst yearly TONSILLECTOMY UMBILICAL HERNIA REPAIR 2017 brought [...] Resource Strain: Low Risk (02/03/2024) [facility] from [facility] Overall Financial Resource Strain (CARDIA) Difficulty of Paying Living Expenses: Not hard at all Food Insecurity: No Food Insecurity (10/07/2024) Hunger Screening Food Insecurity - Worry: Never True Food Insecurity - Inability: Never True Transportation Needs: No Transportation Needs (02/03/2024) Received from [facility] PRAPARE - Transportation Lack of Transportation (Medical): No Lack of Transportation (Non-Medical): No Physical Activity: Sufficiently Active (02/03/2024) Received from [facility] Exercise Vital Sign Days of Exercise per Week: 3 days Minutes of Exercise per Session: 60 min Stress: No Stress Concern Present (02/03/2024) Received from [facility] [place] of Occupational Health - Occupational Stress Questionnaire Feeling of Stress : Not at all Social Connections: Moderately Integrated (02/03/2024) Received from [facility] Social Connection and Isolation Panel [NHANES] Frequency of Communication with Friends and Family: Once a week Frequency of Social Gatherings with Friends and Family: Once a week Attends Muslim Services: More than 4 times per year Active Member of Clubs or Organizations: Yes Attends Club or Organization Meetings: More than 4 times per year Marital Status: Interpersonal Safety: Unknown (01/16/2024) Received from [facility] [place] Safety & Environment Fear of Current or Ex-Partner: Not on file Emotionally Abused: Not on file Physically Abused: Not on file Sexually Abused: Not on file Physically or Sexually Abused: Not on file Housing Instability: Low Risk (02/03/2024) Received from [facility] Housing Stability Vital Sign Unable to Pay [...] was in order for chronic epididymitis especially overa 2-3 year which has not resolved with [...] patient/family/caregiver Referring and communicating with other health women's health care nurse practitioner - Kavya Germain DO 07/14/25 10:35 AM This note was created with the assistance of a speech recognition program. While intending to generate a timely document that accurately reflects the content of the visit, no guarantee can be provided that every grammatical or spelling mistake has been or will be identified or corrected. Thank you for your understanding. documented in this encounterSelect Medical [facility]ty [facility]08-06-2025 History of Present illness Narrative* North Chapin MD - 06/30/2025 8:37 AM EDTAssociated Problem(s): Inguinal pain, right Pain for months and recurrent epididymitis. Concerned of hernia and check US. If normal but still discomfort recommend exam by general surgeon to assess for hernia. * North Chapin MD - 06/30/2025 7:45 AM EDT Images from the original note were [...] Relevant Orders US scrotum documented in this encounterHCA Midwest [id number] History of Present illness Narrative* Sakina Carpenter MD - 05/12/2025 1:20 PM EDT Images from the original note [...] limited to risks of scarring, darker or pull tab dealer pigmentary changes, recurrence, infection, and incomplete removal [...] instructions were given verbally and in writing. Theoffice will be contacted if the lesion fails to resolve despite treatment, or if a side effect develops such as abnormal crusting, scabbing, reddness, discharge, or tenderness. Additional details: Amount of lidocaine used: 2.0 cc Previous accession number: [id number] Patient instructed to notify office of any [...] limited to risks of scarring, darker or pull tab dealer pigmentary changes, recurrence, infection, and incomplete removal [...] instructions were given verbally and in writing. Theoffice will be contacted if the lesion fails to resolve despite treatment, or if a side effect develops such as abnormal crusting, scabbing, reddness, discharge, or tenderness. Additional details: Amount of lidocaine used: 2.0 cc Previous accession number: [id number] Patient instructed to notify office of any signs of recurrence prior to next scheduled visit. Next Visit: as scheduled documented in this encounterHCA Midwest [id number] History of Present illness Narrative* Sakina Carpenter MD - 04/30/2025 10:20 AM EDT Images from the original note were [...] BCC Check Margins: Yes Previous accession number: [id number] Next Visit: Has follow up scheduled documented in this encounterHCA Midwest [id number] NoteSUBJECTIVE Reason for Visit: Oscar Escoto is a 75 y.o. year old male patient being seen for 6-month follow-up visit. HPI: Oscar Escoto is a 75 y.o. year old male with significant medical history of atrial fibrillation that was diagnosed few years ago here he was admitted to [facility] with A. fib with rapid ventricular [...] Musculoskeletal: Inspection: no join (more content not included)...[facility]05-19-2025 History of Present illness Narrative* Nneka Hernandez NP - 04/12/2025 3:15 PM EDT Images from the original note [...] ballotable and compartments were soft to the operativelower extremity. Dorsalis pedis and posterior tibial pulses were present and equal bilaterally. There was no evidence of infection or ascending lymphangitis to operative lower extremity. Sensation tolight touch was intact to all dermatomes to [...] for requiring urgent evaluation. documented in this encounterHCA Midwest DivisionOrpzvfwcrc54-43-0526 Hospital Discharge instructions Patient Education 04/05/2025 13:16:02 [...] including vitamins, herbs, eye drops, creams, and wzhc-xew-zhibgdl medicines. Any problems you or family members [...] provider tells you to take them. Taking ybfg-tki-zmfhnrs medicines, vitamins, herbs, and supplements. General instructions You may need to collect your sperm in a sperm bank because this procedure can affect your ability to produce sperm (fertility). Ask your health care provider if this is necessary. Do not use any products that contain nicotine or tobacco for at least 4 weeks before the procedure.These products include cigarettes, chewing tobacco, and vaping [...] blood oxygen level will be monitored until youleave the hospital or clinic. You will be [...] testicles. It is most often done to treatcancer of the testicles. Tell your health care [...] provider. Document Revised: 05/11/2022 Document Reviewed: 05/11/2022 [employer] Patient Education 2023 [employer]. Follow Up Care 10/12/2024 16:19:37 With:ESEQUIEL RUSSELL, Natali Gonzalez, URL Address: [facility] [address] [place] [address]- [phone] When: Unknown Comments:sched orchiectomy in September [facility] 05-12-2025 NotePatient Education Oncology Orchiectomy An orchiectomy is the [...] including vitamins, herbs, eye drops, creams, and jgwz-fyp-mmwfinz medicines. ??? Any problems you or family [...] what you may eat and drink before yourprocedure. These may include: ? 8 hours before [...] tells you to take them. ??? Taking fsqs-tmx-bowrqdq medicines, vitamins, herbs, and supplements. General instructions [...] and blood oxygen level will be monitored untilyou leave the hospital or clinic. ??? You will be allowed to go home once you are awake, stable, taking fluids well, and have no other problems. ??? You may have (more content not included)...[facility] 03-29-2025 History of Present illness Narrative* North Chapin MD - 03/29/2025 2:43 PM EDTAssociated Problem(s): Medicare annual wellness visit, subsequent Due for labs. Discussed proper diet and regular aerobic exercise. Need aerobic exercise 5-6 days a week for 30 minutes at a time. Smaller portions and limit total calories. Colonoscopy every 10 years. Tetanus every 10 years. Advised not to smoke. * North Chapin MD - 03/29/2025 2:00 PM EDT Images from the original note were not included. Subjective Patient ID: Oscar Escoto is a 75 y.o. male who presents for Medicare Annual Wellness Visit Subsequent (Wellness/Sleeping medication). Presents for medicare annual wellness visit. Patient feels well today. Weight up 12 pounds in the past year. Recent arthroscopic surgery on left knee and wasn't as active. Plans on returning to [facility] several days a week. Resumed walking dog when nice out. Tries to watch diet and eat healthy. Increased fruits and vegetables. Smaller portions and limits snacking. Tries to limit total daily calories.Due for labs. Review of Systems Constitutional: Negative [...] Problem List Items Addressed This Visit Dyslipidemia ([facility]/HCC) Relevant Orders Lipid panel Prediabetes Relevant Orders [...] Anxiety disorder, unspecified type documented in this encounterHCA Midwest DivisionJocchxauuw03-19-0588 History of Present illness Narrative* Sakina Carpenter MD - 03/24/2025 1:00 PM EDT Images from the original note were not included. Skin Check Location: Patient requests a skin examination from the waist up, and left lower leg. Declines full body exam Dermatologic history: history of Actinic Keratosis, history of Basal Cell Carcinoma - does not likeEfudex cream Last visit: 08/13/2024 Established patient Lesions: [...] ACTINIC KERATOSIS (9) Left Buccal Cheek, Left Scientology, Right Buccal Cheek, Right Dorsal Hand (2), Right Posterior Mandible, Right Posterior Neck (2), Right Tragus Erythematous scaly papules Patient was counseled regarding these sun-induced growths that can develop into squamous cell carcinoma if left untreated. Discussed treatment with cryotherapy. It was emphasized that any treated lesions that fail to resolve should be re- evaluated. Cryotherapy performed today; see procedure note Diagnosis: Actinic keratosis Indication: Precancerous Location: see skin exam Consent: Verbal consent was obtained and risks were discussed, including, but not limited to risks of scarring, darker or pull tab dealer pigmentary changes, recurrence, incomplete removal and infection. [...] skin lesion - Left Buccal Cheek, Left Scientology, Right Buccal Cheek, Right Dorsal Hand (2), [...] lesion: 2.0 x 1.7 cm Right Forearm Abie scaly plaque Lesion biopsy Type of biopsy: [...] lesion: 2.3 x 2.0 cm Left sanders Abie papule Lesion biopsy Type of biopsy: tangential [...] benign pigmented lesions that occur on sun-exposed andsun-damaged skin. No treatment is necessary. Recommended regular use of broad spectrum sunscreen SPF 30 or higher 5. HISTORY OF MALIGNANT NEOPLASM OF SKIN Next Visit: pending biopsy results, 6 months-skin check documented in this encounterHCA Midwest [id number] History of Present illness Narrative* Nneka Hernandez NP - 2025 10:00 AM EDT Images from the original note were [...] ballotable and compartments were soft to the operativelower extremity. Dorsalis pedis and posterior tibial pulses were present and equal bilaterally. There was no evidence of infection or ascending lymphangitis to operative lower extremity. Sensation tolight touch was intact to all dermatomes to [...] develop for requiring urgent evaluation. Nneka Hernandez DIESEL INSPECTOR-PLATING TANK OPERATOR APPRENTICE documented in this encounterHCA Midwest [id number] Note [id number]#1.00OTGTToledo Hospital04-07-2025 [facility] Clinical Discharge Summary PERSON INFORMATION Name OSCAR ESCOTO Age 74 Years 1950 Sex MALE Language Romanian PCP [facility] Marital Status Phone Med Service Ambulatory Surgery Acct# Arrival 03/01/2025 08:45:44 Visit Reason SURGERY - LEFT KNEE ARTHROSOCPY - LATERAL MENISCUS TEAR [facility] LOS 066 02:01 Address: [address] [place] [address] Comment: PROVIDER INFORMATION VITALS INFORMATION Vital Sign [...] mouth) every day. Comme (more content not included)...[id number] Telephone encounter Note* Telephone Encounter - Nneka Hernandez NP - 02/26/2025 1:00 PM EDT Post op pain rx. PDMP reviewed [id number] Miscellaneous Notes* Telephone Encounter - Nneka Hernandez NP - 02/26/2025 1:00 PM EDT Post op pain rx. PDMP reviewed documented in this encounterHCA Midwest [id number] History of Present illness Narrative* MORIS Muniz - 02/02/2025 3:00 PM EDT Images from the original note [...] testing for upcoming surgery. Complete history with medical,surgery, and current allergy and medication list obtained. Consent for surgery signed and witnessedafter verbal consent to perform surgery received. All questions answered and proposed surgery scheduled. LT KNEE SCOPE 03/01/25 @ [facility] Follow up for Post-Op 03/15/25 @ [facility] BEN EARLY. documented in this encounterHCA Midwest [id number] History of Present illness Narrative* Jr. Enrrique Waldrop, DO - 12/25/2024 9:30 AM EST Images from the original note were not included. HISTORY OF PRESENT ILLNESS: EST PT Oscar Escoto is an 74 y.o. @ male. (EST PT-PREVIOUSLY SAW MARY LOU ROXI ON 11/30/24) RECHECK (L) KNEE PAIN; HERE FOR MRI RESULTS DONE ON 12/18/[address] [facility]. XRAY B/L AP WB KNEES 11/09/24 IN [facility] XRAY (L) KNEE 10/07/24 [facility] MRI (L) KNEE 12/18/24 [facility] DEPO MEDROL INJ 11/09/24 - 50% IMPROVEMENT [...] options and nonsurgical treatments. We'll see him backto surgery. We have discussed both surgical and nonsurgical treatment options with the patient at length and the risks and benefits associated with both. The patient is requesting surgical intervention because they have not responded to outpatient treatment options including but not limited to rest ice, and home exercise program. Pain and decreased range of motion are affecting the patient's ability to sleepand activities of daily living and we have recommended surgical intervention. Questions answered in laymen terms at the bedside. The diagnosis, home exercise plan and any ongoing restrictions/ recommendations reviewed. If unable to be reached in office, I recommend evaluation at nearest Emergency Room if any symptoms worsened or new symptoms develop for requiring urgent evaluation. documented in this encounterNOMS [id number] Telephone encounter Note* Telephone Encounter - Elaina Damon - 12/11/2024 11:22 AM EST Patient called stating that [facility] in [place] did not receive the rx needed prior to MRI being done. Please advise. [place] [id number] Miscellaneous Notes* Telephone Encounter - Elaina Damon - 12/11/2024 11:22 AM EST Patient called stating that [facility] in [place] did not receive the rx needed prior to MRI being done. Please advise. documented in this [facility]01-16-2025 Telephone encounter Note* Telephone Encounter - HARSHIL Goldberg - 12/10/2024 1:21 PM EST Faxed referral, MRI order, office notes and XR report to [facility]. [place] [id number] Miscellaneous Notes* Telephone Encounter - HARSHIL Goldberg - 12/10/2024 1:21 PM EST Faxed referral, MRI order, office notes and XR report to [facility]. * Telephone Encounter - Elaina Damon - 12/10/2024 11:33 AM EST Patient called and left vm that he spoke with [facility]. They received authorization for his MRI. They have not received requested notes so they cannot schedule him until they receive the notes. Please advise. documented in this [address]16-2025 Telephone encounter Note* Telephone Encounter - Elaina Marisol - 12/10/2024 11:33 AM EST Patient called and left that he spoke with [facility]. They received authorization for his MRI. They have not received requested notes so they cannot schedule him until they receive the notes. Please advise. [facility]OMCass [facility] [id number] History of Present illness Narrative* Mary Lou Diane NP - 11/30/2024 11:45 AM EST Images from the original note were not [...] f/u s/p MRI to be done at [facility]. documented in this encounterHCA Midwest [id number] NoteUT Electrophysiology Consult Note Reason for visit: Dizziness/SVT [...] years ago here he was admitted to [facility] with A. fib with rapid ventricular [...] 48 hours from 12/24/2021 to 12/10/2021 at [facility] was reviewed by me and shows PVC burden of less than 1% and PVC count of 6%. Occasional nonsustained atrial tachycardia few beats seen but no atrial fibrillation noted. No ventricular tachycardia noted EKG 10/17/2021 shows sinus rhythm with normal intervals Echocardiogram done at [place] on 09/06/2021 shows ejection fraction of 60% [...] Lumbosacral spondylosis without myel (more content not included)...[facility]12-16-2024 History of Present illness Narrative* Mary Lou Diane NP - 11/09/2024 11:30 AM ESTAssociated Order(s): L Inj/Asp: L knee Post-Procedure Diagnose(s): Arthritis of left knee Images from the original note were not included. 0Subjective Patient ID: Oscar Ecsoto is a 74 y.o. male. LT knee [...] He has been going to therapy in [facility] with improvement in strength but continues to have pain,has 3 more scheduled. Pain is pretty diffuse in knee. Can feel pain mostly anterior below patella and medial. Denies radiation. Taking TYL arthritis prn. Using ice prn. Was using voltaren, little relief. Admits swelling by end of day. Denies N/T. Admits popping/grinding. Admits giving out sensation with pivoting. Difficulty going up and down stairs. Weakness. Wakes pt at HS. Continues to play [employer] ball. [place]: Pain management 10/07/24, heat, TYL, rest, HEP, P.T. noms kain, [facility] B/L WB AP 11/09/24, ice, [...] of major arthritic process, overall anatomic alignment appearedto be well preserved. There was no acute bony process including but not limited to fracture and/or dislocation. Impression: no gross evidence of major arthritic process or structural damage bilateralknees I reviewed the xrays of the left knee done on 10/08/24 at [facility] reveals tricompartmental arthritis, no fractures [...] and he understands this documented in this encounterHCA Midwest [id number] History of Present illness Narrative* Yenny Rowe, PT - 10/29/2024 2:00 PM EST Physical Therapy Treatment Visit Patient Name: Oscar [...] which is not a problem; however, stair, sitto stands, and walking greater distances are causing him pain. Pt states he wakes up with stiffnessin left knee every morning. Xray showed tricompartmental [...] minutes) Strength, Endurance, Flexibility, ROM, HEP, Neural Mobilization,Power, and Core Stability as needed. Progressed ex [...] to be instructed in home exercise program. Care Home Goals: To be met in 10 weeks [...] Please sign below. Date: documented in this encounterHCA Midwest [id number] History of Present illness Narrative* Yenny Rowe, PT - 10/20/2024 2:30 PM EST Physical Therapy Evaluation Visit Patient Name: Oscar [...] which is not a problem; however, stair, sitto stands, and walking greater distances are causing him pain. Pt states he wakes up with stiffnessin left knee every morning. Xray showed tricompartmental [...] minutes) Strength, Endurance, Flexibility, ROM, HEP, Neural Mobilization,Power, and Core Stability as needed. Pt performed and instructed in home program this date; writteninstructions and pictures issued with good pt understanding. [...] to be instructed in home exercise program. Care Home Goals: To be met in 10 weeks [...] Please sign below. Date: documented in this encounterHCA Midwest DivisionZwpkrnyhjx06-08-0736 Hospital Discharge instructions Patient Education 10/12/2024 16:12:18 [...] of the testicle and scrotum. Symptoms usually startsuddenly (acute epididymitis). Sometimes epididymitis starts gradually and [...] Follow these instructions at home: Medicines Take narw-tsg-befstyv and prescription medicines only as told by your health care provider. If you were prescribed an antibiotic medicine, take it as told by your health care provider. Do notstop taking the antibiotic even if your condition [...] Ask your health care provider if you shouldwear a scrotal support, such as a jockstrap. [...] provider. Document Revised: 06/20/2022 Document Reviewed: 06/20/2022 [employer] Patient Education 2023 OrSense. Follow Up Care 06/24/2023 16:43:14 With:ESEQUIEL RUSSELL, Natali Gonzalez, URL Address: [facility] [address], [place] [address]- [phone] When: Unknown Comments:6 mos [facility] [place] 11-18-2024 NotePatient Education Urology Epididymitis Epididymitis is inflammation or swelling of the epididymis. This is caused by an infection. The epididymis is a cord-like structure that is located along the top and back part of the testicle. It collects and stores sperm from the testicle. This condition can also cause pain and swelling of the testicle and scrotum. Symptoms usually startsuddenly (acute epididymitis). Sometimes epididymitis starts gradually and [...] these instructions at home: Medicines ??? Take fopf-ajj-vqzxwmr and prescription medicines only as told by your health care provider. ??? If you were prescribed an antibiotic medicine, take it as told by your health care provider. Donot stop taking the antibiotic even if your [...] told by your heal (more content not included)...[facility]11-13-2024 History of Present illness Narrative* Cecilia Anderson PA-C - 10/07/2024 1:30 PM EST [facility] [address] [place] [address] Patient: Oscar Escoto Sex: male : 1950 [...] injury mechanism was a fall. The pain ispresent in the left knee. The quality of [...] He has tried heat, acetaminophen, rest and non- weight bearing (HEP) for the symptoms. The treatment [...] Improving since onset. Pertinent negatives include no inabilityto bear weight, muscle weakness, numbness or tingling. [...] numbness, tingling or weakness. He has tried iceand heat (PT/HEP (@ 2021), heat with moderate relief; ) for the symptoms. The treatment provided significant relief. The effect of pain on patient's ADLS: Moderate Impairment. Past Medical History: Diagnosis Date Afib ([facility]) Back pain lumbar BPH (benign prostatic hyperplasia) Cancer ([facility]) multiple basal cell Chronic pain disorder [...] 02/08/2023 Performed by Umair Decker MD at [facility] INJECTION BURSA LARGE JOINT: left ischial bursa Left 08/16/2023 Performed by Umair Decker MD at [facility] INJECTION LARGE JOINT BURSA Right 04/12/2017 Performed by Umair Decker MD at [facility] INJECTION MEDIAL BRANCH NERVE BLOCK: right [id number] 51mbb Right 08/12/2020 Performed by Umair Decker MD at [facility] INSERTION LOOP RECORDER 01/24/2023 Dr Amin at [facility] JOINT REPLACEMENT right hip ORTHOPEDIC SURGERY Left 2012 wrist fixation RADIO FREQUENCY ABLATION: right [id number] Right 09/23/2020 Performed by Umair Decker MD at [facility] REPAIR HERNIA INGUINAL WITH MESH Right 09/23/2018 Performed by Kavya Germain DO at [facility] REPAIR HERNIA UMBILICAL WITH MESH N/A 09/23/2018 Performed by Kavya Germain DO at [facility] REPLACEMENT TOTAL JOINT ANTERIOR SUPINE INTERMUSCULAR HIP Right 07/10/2017 Performed by America Ambrocio MD at [facility] TONSILLECTOMY WRIST SURGERY No Known Allergies [...] Low Risk (02/03/2024) Received from [facility] Overall Financial Resource Strain (CARDIA) Difficulty of Paying Living Expenses: Not hard at all Food Insecurity: No Food Insecurity (10/07/2024) Hunger Screening Food Insecurity - Worry: Never True Food Insecurity - Inability: Never True Transportation Needs: No Transportation Needs (02/03/2024) Received from [facility] PRAPARE - Transportation Lack of Transportation (Medical): No Lack of Transportation (Non-Medical): No Physical Activity: Sufficiently Active (02/03/2024) Received from [facility] Exercise Vital Sign Days of Exercise per Week: 3 days Minutes of Exercise per Session: 60 min Stress: No Stress Concern Present (02/03/2024) Received from [facility] [employer] [place] [employer] - Occupational Stress Questionnaire Feeling of Stress : Not at all Social Connections: Moderately Integrated (02/03/2024) Received from [facility] Social Connection and Isolation Panel [NHANES] Frequency of Communication with Friends and Family: Once a week Frequency of Social Gatherings with Friends and Family: Once a week Attends Muslim Services: More than 4 times per year Active Member of Clubs or Organizations: Yes Attends Club or Organization Meetings: More than 4 times per year Marital Status: Interpersonal Safety: Unknown (01/16/2024) Re[facility] [place] Safety & Environment Fear of Current or Ex-Partner: Not on file Emotionally Abused: Not on file Physically Abused: Not on file Sexually Abused: Not on file Physically or Sexually Abused: Not on file Housing Instability: Low Risk (02/03/2024) Received from [facility] Housing Stability Vital Sign Unable [...] during discussion, demonstrated appropriate cognitive reasoning and understandingof the medical condition by asking appropriate questions [...] is noted without significant erythema. Pain is elicitedwith flexion and extension of the knee both [...] Side effects, and possible interactions of these medicationswere reviewed and the medication agreement has been discussed, agreed upon, and signed. The patientunderstands compliance concerns and the requirement of pill counts and drug screens while taking medications prescribed by this clinic. Left Knee xray Imaging/Diagnostic Testing - It is felt that additional diagnostic testing is necessary to further evaluate the patients currentpain pathology. For this reason, we will order [...] for the condition being treated. This may i nclude modalities of comfort including moist heat, ultrasound, [...] monitoring for toxicity We do not currently prescribeany controlled substance from this practice. Treatment plans discussed but not opted for at this time: Left knee injections. Patient would like to proceed with the current outlined treatment plan beforemoving forward with any other options. Chronic conditions not treated during this visit that affected my overall medical decision making: Anti-coagulation therapy OARRS: Reviewed. Scribe Statement: Scribed for and in the presence of CECILIA ANDERSON PA-C by Jaelyn Guevara CNA. Provider Statement: CECILIA Schroeder PA-C, personally performed the services described in the documentation, as scribed by Jaelyn Guevara CNA in my presence, and it is both accurate and complete. Jaelyn Guevara CNA 10/07/24 1420 Cecilia Anderson PA-C 10/07/24 1437 documented in this [facility] History of Present illness Narrative* Sakina Carpenter MD - 08/13/2024 9:45 AM EDT Images from the original note were not included. Skin Check Location: Patient requests a skin examination from the waist up Dermatologic history: history of Actinic Keratosis, history of Basal Cell Carcinoma - does not likeEfudex cream Last visit: 6 months ago Established [...] benign pigmented lesions that occur on sun-exposed andsun-damaged skin. No treatment is necessary. Recommended regular [...] Scalp (5), Right Anterior Neck, Right Mid Geraldine,Right Parotid Area, Right Posterior Neck, Right Preauricular Area, Right Superior Geraldine, Right Scientology, Right Temporal Scalp Erythematous scaly papules Patient was counseled regarding these sun-induced growths that can develop into squamous cell carcinoma if left untreated. Discussed treatment with cryotherapy. It was emphasized that any treated lesions that fail to resolve should be re- evaluated. Cryotherapy performed today; see procedure note Diagnosis: Actinic keratosis Indication: Precancerous Location: see skin exam Consent: Verbal consent was obtained and risks were discussed, including, but not limited to risks of scarring, darker or pull tab dealer pigmentary changes, recurrence, incomplete removal and infection. [...] Scalp (5), Right Anterior Neck, Right Mid Geraldine, Right Parotid Area, Right Posterior Neck, Right Preauricular Area, RightSuperior Geraldine, Right Scientology, Right Temporal Scalp 6. History of basal [...] 6 months skin check documented in this encounterHCA Midwest [id number] Hospital Discharge instructions Patient Education 06/24/2023 16:36:03 Benign Prostatic Hyperplasia Benign Prostatic Hyperplasia Benign prostatic hyperplasia (BPH) is an enlarged prostate gland that is caused by the normal agingprocess. The prostate may get bigger as a man gets older. The condition is not caused by cancer. The prostate is a walnut-sized gland that is involved in the production of semen. It is located in front of the rectum and below the bladder. The bladder stores urine. The urethra carries stored urine ou t of the body. An enlarged prostate can press on the urethra. This can make it harder to pass urine. The buildup of urine in the bladder can cause infection. Back pressure and infection may progress to bladder damage and kidney (renal) failure. What are the causes? This condition is part of the normal aging process. However, not all men develop problems from thiscondition. If the prostate enlarges away from the [...] urethra. Follow these instructions at home: Take ggun-kmt-jpvdwsz and prescription medicines only as told by [...] provider. Document Revised: 05/30/2022 Document Reviewed: 05/30/2022 [employer] Patient Education 2022 OrSense. Follow Up Care 05/07/2022 15:53:47 With:ESEQUIEL RUSSELL, Natali Gonzalez, URL Address: [facility] [address], [place] [address] [phone] When: Unknown Comments:1 yr w/ PSA [facility] 01-24-2023 NotePROCEDURE: XR FOOT LT MIN 3 VIEWS COMPARISON: 11/06/2022 HISTORY: Pain [...] Electronically authenticated by: MARÍA BRYSON Date: 2022-12-18 09:32[facility]12-13-2022 NotePROCEDURE: XR FOOT LT MIN 3 VIEWS HISTORY: Pain in left [...] Electronically authenticated by: RAZ MATOS Date: 2022-11-06 15:27[facility]11-23-2022 NotePROCEDURE: XR FOOT LT MIN 3 VIEWS HISTORY: Pain in left [...] Electronically authenticated by: RAZ MATOS Date: 2022-10-17 10:46[id number] NotePROCEDURE: XR FOOT LT MIN 3 VIEWS COMPARISON: 08/01/2022 HISTORY: Pain [...] Electronically authenticated by: MARÍA BRYSON Date: 2022-09-27 18:29[facility]Lcmlznlk63-99-8216 NotePROCEDURE: XR FOOT RT MIN 3 VIEWS COMPARISON: 02/13/2022 HISTORY: Pain [...] authenticated by: MARÍA BRYSON Date: 2022-05-15 21:39 [facility]izkiiuw03-79-8676 Hospital Discharge instructions Patient Education 05/07/2022 15:46:13 [...] sure to eat fewer calories than your bodyneeds, you should lose weight. Ask your health care provider what a healthy weight is for you. For calorie counting to work, you will need to eat the right number of calories in a day in order to lose a healthy amount of weight per week. A dietitian can help you determine how many calories youneed in a day and will give you suggestions on how to reach your calorie goal. A healthy amount of weight to lose per week is usually 1 2 lb (0.5 0.9 kg). This usually means thatyour daily calorie intake should be reduced by [...] label. If a food does not have aNutrition Facts label, try to look up the calories online or ask your dietitian for help. Remember that calories are listed per serving. If you choose to have more than one serving of a food, you will have to multiply the calories per serving by the amount of servings you plan to eat. Forexample, the label on a package of bread [...] you how many calories you have left forthe day to meet your goal. What are [...] fat free foods. These foods sometimes have thesame amount of calories or more calories than the full fat versions. They also often have added sugar, starch, or salt, to make up for flavor that was removed with the fat. Find a way of tracking calories that works for you. Get creative. Try different apps or programs ifwriting down calories does not work for you. What are some portion control tips? Know how many calories are in a serving. This will help you know how many servings of a certain food you can have. Use a measuring cup to measure serving sizes. You could also try weighing out portions on a kitchenscale. With time, you will be able to [...] serving size may be smaller than what youare used to eating. Check the source of the calories. Make sure the food you are eating is high in vitamins and proteinand low in saturated and trans fats. Shopping [...] steamed. Stay away from items that are buttered,battered, fried, or served with cream sauce. Items [...] a serving of cooked rice is cup orabout the size of half a baseball. Knowing serving sizes will help you be aware of how much food you are eating at restaurants. The list below tells you how big or small some common portion sizes arebased on everyday objects: ?1 oz 4 stacked [...] label. If a food does not have aNutrition Facts label, try to look up the [...] 11/11/2006 Document Revised: 07/31/2019 Document Reviewed: 10/11/2017 Elsevier Patient Education 2020 OrSense. 05/07/2022 15:46:01 Benign Prostatic Hyperplasia Benign Prostatic Hyperplasia Benign prostatic hyperplasia (BPH) is an enlarged prostate gland that is caused by the normal agingprocess and not by cancer. The prostate is [...] urethra. Follow these instructions at home: Take pxyh-phs-afjtuvg and prescription medicines only as told by [...] 11/11/2006 Document Revised: 10/06/2019 Document Reviewed: 12/16/2017 [employer] Patient Education 2020 OrSense. Follow Up Care 09/04/2021 16:41:31 With:ESEQUIEL RUSSELL, Natali Gonzalez, URL Address: [facility] [address], [place] [address] [phone] When:Within 1 Year(s) Comments:f/u in 1 year with PSA and NAIMA [facility] evaluation + Plan note Future Appointments Appointment Date:05/13/2023 03:00:00 PM Scheduled Provider:Natali IRAHETA MD Location:[facility] Appointment Type:URO Office Visit Diagnostic Tests Pending * PSA Total 05/07/22 [facility] evaluation + Plan note Future Appointments Appointment Date:06/29/2024 03:00:00 PM Scheduled Provider:Natali IRAHETA MD Location:[facility] Appointment Type:URO Office Visit Diagnostic Tests Pending * PSA Total 06/24/23 [facility] evalovsceh + Plan note Future Appointments Appointment Date:04/12/2025 01:15:00 PM Scheduled Provider[facility] Office Visit Diagnostic Tests Pending * PSA Total 10/12/24 [facility] evaluation + Plan note Future Appointments Appointment Date:10/25/2025 10:15:00 AM Scheduled Provider:Natali IRAHETA MD Location:[facility] Appointment Type:URO Office Visit [facility] evaluation noteNo assessment information available [facility] Work Phone: Evaluation note* Diagnosis Transient global amnesia- Primary Claustrophobia [...] unspecified chronicity- Primary documented in this [facility] Medicare annual wellness [...] Other postprocedural status documented in this encounter [facility] HealthcareEvaluation note* Diagnosis Medicare annual wellness [...] including hip- Primary documented in this encounter [facility] HealthcareEvaluation note* Diagnosis Medicare annual wellness [...] limb, including hip documented in this encounter [facility] HealthcareEvaluation note* Diagnosis Medicare annual wellness [...] Primary H/O epididymitis documented in this encounter [facility] HealthcareEvaluation note* Diagnosis Chronic epididymitis- Primary documented [...] available for this section [facility] InstructionsNot on filedocumented in this encounter [facility] filedocumented in this [facility]ructionsNot on filedocumented in this encounter [facility]InstructionsNot on filedocumented in this encounter [facility] note No data available for this section [facility] reason for referral (narrative)* Clinic-Administered Medication (Routine) - ClosedSpecialtyDiagnoses / ProceduresReferred By ContactReferred To ContactOrthopaedic Surgery Procedures L Inj/Asp: L knee Mary Lou Diane NP [address] [address] Phone: tel: fax: Referral IDStatusReasonStart DateExpiration DateVisits RequestedVisits [id number]/ [facility] for visit Narrative* Rehabilitation - Outpatient (Routine) - AuthorizedSpecialtyDiagnoses / ProceduresReferred By ContactReferred To ContactPhysical Therapy Diagnoses Pain in left knee Procedures [place] PHYSICAL THERAPY EVALUATION LOW COMPLEX 20 MINS CA OFFICE/OUTPATIENT NEW HIGH Cecilia Sanchez MD [address] [place] [address] Phone: tel: fax: Yenny Rowe PT Referral IDStatusReasonStart DateExpiration DateVisits RequestedVisits [id number] [facility] HealthcareReason for visit Narrative* Rehabilitation - Outpatient (Routine) - AuthorizedSpecialtyDiagnoses / ProceduresReferred By ContactReferred To ContactPhysical Therapy Diagnoses Pain in left knee Procedures [place] PHYSICAL THERAPY EVALUATION LOW COMPLEX 20 MINS [place] OFFICE/OUTPATIENT NEW HIGH [facility] Cecilia Anderson MD [address] [place] [address] Phone: tel: fax: Yenny Rowe, PT Referral IDStatusReasonStleslie DateExpiration DateVisits RequestedVisits [id number] [facility] Chief Complaint and Reason for Visit Chief Complaint Forehead Wound Chief Complaint Forehead Wound Forehead Wound Chief Complaint Admit Date Wound posterior left knee September 17, 2025 2:36pm Reason for Visit Admit Date Encounter for wound care September 17 2:36pm Family History No Family History Records Found Relationship Condition Age at Onset Recorded Date/T carmelo sister Malignant neoplasm of skin Unknown Not SpecifiedHeart diseaseUnknownMalignant neoplasm of breastUnknownfather Malignant neoplasm of kidneyUnknown Relationship Condition Age at Onset Recorded Date/T carmelo sister Malignant neoplasm of skin Unknown motherHeart diseaseUnknownMalignant neoplasm of breastUnknownfatherMalignant neoplasm of kidneyUnknown Advance Directives No Advanced Directives Records Found Advance Directive Response Recorded Date/ Time Advance Directives No May 31 8:07am Summary Purpose Additional Source Comments Care Team (unrecognized sect ion and content) Team Status: Inactive Member Role Status Dates Miguel Astorga DO Attending Provider Active Rachel Lorenzana Care ProviderActive Team Status: Active Member Role Status Dates North Chapin MD Primary Care Provider Active Team Status: Inactive Member Role Status Dates Sakina Carpenter MD Attending Provider Active Team MemberRelationshipSpecialtyStart DateEnd Date North Chapin MD [address] [place] [address] PCP - GeneralFamily Medicine02/04/24 North Chapin MD [address] [place] [address] PCP - [employer]02/24/24Team MemberRelationshipSpecialtyStart DateEnd Date North Chapin MD [address] [place] [address] PCP - GeneralFamily Medicine02/04/24 North Chapin MD [address] [place] [address] PCP - [employer]02/24/24Team MemberRelationshipSpecialtyStart DateEnd Date North Chapin MD [address] [place] [address] PCP - GeneralFamily Medicine02/04/24 North Chapin MD [address] [place] [address] PCP - [employer]02/24/24Team MemberRelationshipSpecialtyStart DateEnd Date North Chapin MD [address] [place] [address] PCP - GeneralFamily Medicine02/04/24 North Chapin MD [address] [place] [address] PCP - [employer]02/24/24Team MemberRelationshipSpecialtyStart DateEnd Date North Chapin MD [address] [place] [address] PCP - GeneralFamily Medicine02/04/24 North Chapin MD [address] [place] [address] PCP - [employer]02/24/24Team MemberRelationshipSpecialtyStart DateEnd Date North Chapin MD [address] [place] [address] PCP - [facility] Medicine02/04/24 North Chapin MD [address] [place] [address] PCP - [employer]02/24/24Team MemberRelationshipSpecialtyStart DateEnd Date North Chapin MD [address] [place] [address] PCP - Generalmily Medicine02/04/24 North Chapin MD [address] [place] [address] PCP - [employer]02/24/24Team MemberRelationshipSpecialtyStart DateEnd Date North Chapin MD [address] [place] [address] PCP - Generalmily Medicine02/04/24 North Chapin MD [address] [place] [address] PCP - [employer]4Team MemberRelationshipSpecialtyStart DateEnd Date North Chapin MD [address] [place] [address] PCP - GeneralFamily Medicine02/04/24 North Chapin MD [address] [place] [address] PCP - [employer]02/24/24Team MemberRelationshipSpecialtyStart DateEnd Date North Chapin MD [address] [place] [address] [facility] North Chapin MD [address] [place] [address] PCP - [employer]02/24/24Team MemberRelationshipSpecialtyStart DateEnd Date North Chapin MD [address] [place] [address] PCP - Generalmily Medicine02/04/24 North Chapin MD [address] [place] [address] PCP - [employer]4Team MemberRelationshipSpecialtyStart DateEnd Date North Chapin MD [address] [place] [address] PCP - GeneralFamily Medicine02/04/24 North Chapin MD [address] [place] [address] PCP - [employer]02/24/24Team MemberRelationshipSpecialtyStart DateEnd Date North Chapin MD [address] [place] [address] PCP - GeneralFamily Medicine02/04/24 North Chapin MD [address] [place] [address] PCP - [employer]02/24/24Team MemberRelationshipSpecialtyStart DateEnd Date North Chapin MD [address] [place] [address] PCP - GeneralFamily Medicine02/04/24 North Chapin MD [address] [place] [address] PCP - [employer]02/24/24Team MemberRelationshipSpecialtyStart DateEnd Date North Chapin MD [address] [place] [address] PCP - GeneralFamily Medicine02/04/24 North Chapin MD [address] [place] [address] PCP - [employer]02/24/24Team MemberRelationshipSpecialtyStart DateEnd Date North Chapin MD [address] [place] [address] PCP - GeneralFamily Medicine02/04/24 North Chapin MD [address] [place] [address] PCP - [employer]02/24/24Team MemberRelationshipSpecialtyStart DateEnd Date North Chapin MD [address] [place] [address] PCP - Generalmily Medicine02/04/24 North Chapin MD [address] [place] [address] PCP - [employer]02/24/24Team MemberRelationshipSpecialtyStart DateEnd Date North Chapin MD [address] [place] [address] PCP - GeneralFamily Wtiojkrg05/13/24Team MemberRelationshipSpecialtyStart Date End Date North Chapin MD [address] [place] [address] PCP - GeneralFamily Medicine02/04/24 North Chapin MD [address] [place] [address] PCP - [employer]4Team MemberRelationshipSpecialtyStart DateEnd Date North Chapin MD [address] [place] [address] PCP - GeneralFamily Medicine02/04/24 North Chapin MD [address] [place] [address] PCP - [employer]02/24/24Team MemberRelationshipSpecialtyStart DateEnd Date North Chapin MD [address] [place] [address] PCP - GeneralFamily Medicine02/04/24 North Chapin MD [address] [place] [address] PCP - [employer]02/24/24Team MemberRelationshipSpecialtyStart DateEnd Date North Chapin MD [address] [place] [address] PCP - GeneralFamily Medicine02/04/24 North Chapin MD [address] [place] [address] PCP - [employer]02/24/24Team MemberRelationshipSpecialtyStart DateEnd Date North Chapin MD PCP - GeneralFamily Tagjgxkm65/13/24Team MemberRelationshipSpecialtyStart Date End Date North Chapin MD PCP - [facility]10/07/24Team MemberRelationshipSpecialtyStart Date End Date North Chapin MD PCP - [facility]10/07/24 Team Status: Active Member Role/Relationship Status Dates North Chapin MD Primary Care Provider Active Team Status: Inactive Member Role/Relationship Status Dates North Chapin MD Primary Care Provider Active S tart: September 17, 2025 End: September 17, 2025Maria Luz Dos Santos ProviderActiveStart: September 17, 2025 End: September 17, 2025 Team Status: Inactive Member Role/Relationship Status Dates North Chapin MD Primary Care Provider Active S tart: September 17, 2025 End: September 17, 2025Maria Luz Dos Santos ProviderActiveStart: September 17, 2025 End: September 17, 2025 Team Status: Inactive Member Role/Relationship Status Dates Isamar Dominguez APRN Attending Provider Active Start: September 17, 2025 End: September 17, 2025 Goals (unrecognized section and content) Goals may be documented in a n alternate section (unrecognized sect ion and content) No Status Records FoundNo Status Records FoundNo Status Records FoundNo Status Records FoundNo Status Records FoundNo Status Records FoundNo Status Records FoundNo Status Records FoundNo Status Records Found INFORMATION SOURCE (unrecogn ized section and content) DATE CREATED AUTHOR 04/10/2023 [facility] DATE CREATED AUTHOR AUTHOR'S ORGANIZ ATION 10/09/2024 [facility] DATE CREATED AUTHOR AUTHOR'S ORGANIZ ATION 04/02/2025 [facility] DATE CREATED AUTHOR AUTHOR'S ORGANIZ ATION 07/02/2025 [facility] DATE CREATED AUTHOR AUTHOR'S ORGANIZ ATION 07/16/2025 [facility] DATE CREATED AUTHOR AUTHOR'S ORGANIZ ATION 08/17/2025 [facility] DATE CREATED AUTHOR AUTHOR'S ORGANIZ ATION 09/03/2025 [facility] DATE CREATED AUTHOR AUTHOR'S ORGANIZ ATION 09/09/2025 [facility] DATE CREATED AUTHOR AUTHOR'S ORGANIZ ATION 09/19/2025 [facility] Reason for Visit (unrecogniz ed section and content) ReasonCommentsPainReasonCommentsFollow-upReasonCommentsMed RefillReasonOnset WgthPmurxqdcVVO76/16/2025ReasonOnset IihrBexejatvSZ07/17/2025ReasonComments Follow-upReasonCommentsKnee PainReasonCommentsPre-op ExamReasonCommentsPain ReasonCommentsMedicare Annual Wellness Visit SubsequentWellnessSleeping medicationReasonCommentsSaucerization excisionReasonCommentsFollow-upPossible herniaReasonCommentsHerniaRECURRENT RIGHT SIDE INGUINAL HERNIA, REFERRED BY DR DOWpecialtyDiagnoses / ProceduresReferred By ContactReferred To Contact General Surgery Diagnoses Inguinal pain, right History of inguinal hernia Procedures CA OFFICE OUTPATIENT VISIT 60-74 MINS [facility] [id number] (SNOMED CT) - AMB REFERRAL TO GENERAL SURGERY North Chapin MD [address] [place] [address] Phone: tel: fax: Kavya Germain, [address] [phone] Phone: tel: fax: Referral IDStatusReasonStart DateExpiration DateVisits RequestedVisits [id number]/re-est LT hip pain, no injections or therapy, LIBRADO 06/21/22 FOR [...] BE BASED ON THE PRIMARY CLINICAL RECORDS. [facility]. provides no warranty or guarantee of the accuracy or completeness of information in this document.
--- NOTE | 2025-09-20 13:38 | PM.PRESUREVA ---
History of Present Illness History of Present Illness Chief complaint: Epididymitis Narrative: Patient presents for presurgical testing. The patient reports recurrent right sided epididymitis with chronic right testicular pain. The patient denies any urinary complaints at this time. He reports he sustained an injury with a laceration to posterior left knee on September 06 which was sutured and then became infected and dehisced. The patient is currently taking clindamycin and is scheduled to see wound care tomorrow. Review of Systems ROS Narrative REVIEW OF SYSTEMS: Negative except as stated in HPI, ten or more systems reviewed. Constitutional: No fever, chills, weakness ENT: No sore throat or epistaxis Cardiovascular: No edema, chest pain, palpitations, or activity intolerance Respiratory: No shortness of breath, cough, or wheezing Musculoskeletal: No joint pain or swelling Gastrointestinal: No abdominal pain, constipation, diarrhea, or vomiting Genitourinary: No dysuria or hematuria Neurological: No numbness, tingling, weakness, or headache Psychiatric: No mood changes [facility] Medical History (Updated 09/20/25 @ 13:42 by Dee Cisse NP) Chronic epididymitis ?N45.1 - Epididymitis (ICD-10) Transient global amnesia ?G45.4 - Transient global amnesia (ICD-10) CHERI on CPAP ?G47.33 - Obstructive sleep apnea (adult) (pediatric) (ICD-10) RLS (restless legs syndrome) ?G25.81 - Restless legs syndrome (ICD-10) Epididymitis ?N45.1 - Epididymitis (ICD-10) Right testicular pain ?N50.811 - Right testicular pain (ICD-10) Degenerative disc disease Back pain ?M54.9 - Dorsalgia, unspecified (ICD-10) Obstructive sleep apnea ?G47.33 - Obstructive sleep apnea (adult) (pediatric) (ICD-10) Benign prostatic hyperplasia ?N40.0 - Benign prostatic hyperplasia without lower urinary tract symptoms (ICD-10) Abdominal hernia ?K46.9 - Unspecified abdominal hernia without obstruction or gangrene (ICD-10) Colon polyp ?K63.5 - Polyp of colon (ICD-10) Hammertoe ?M20.40 - Other hammer toe(s) (acquired), unspecified foot (ICD-10) Atrial fibrillation (10/01/16) ?I48.91 - Unspecified atrial fibrillation (ICD-10) COVID-19 ?U07.1 - COVID-19 (ICD-10) Hallux valgus ?M20.10 - Hallux valgus (acquired), unspecified foot (ICD-10) Pain due to internal orthopedic prosthetic device ?T84.84XA - Pain due to internal orthopedic prosthetic devices, implants and grafts, initial encounter (ICD-10) Pseudoarthrosis Hallux rigidus ?M20.20 - Hallux rigidus, unspecified foot (ICD-10) Status post placement of implantable loop recorder (~2022) ?Z95.818 - Presence of other cardiac implants and grafts (ICD-10) GERD (gastroesophageal reflux disease) ?K21.9 - Gastro-esophageal reflux disease without esophagitis (ICD-10) Surgical History (Updated 09/20/25 @ 13:28 by Dee Cisse NP) H/O cardiac ablation ?Z98.890 - Other specified postprocedural states (ICD-10) H/O foot surgery (11/11/23) ?Z98.890 - Other specified postprocedural states (ICD-10) H/O removal of cyst ?Z98.890 - Other specified postprocedural states (ICD-10) H/O colonoscopy (~2005) ?Z98.890 - Other specified postprocedural states (ICD-10) S/P tonsillectomy and adenoidectomy ?Z90.89 - Acquired absence of other organs (ICD-10) H/O hand surgery (~2011) ?Z98.890 - Other specified postprocedural states (ICD-10) H/O wrist surgery (08/07/13) ?Z98.890 - Other specified postprocedural states (ICD-10) H/O radiofrequency ablation (RFA) of nerve of lumbar spine (~06/2016) ?Z98.890 - Other specified postprocedural states (ICD-10) H/O colonoscopy (~09/12/16) ?Z98.890 - Other specified postprocedural states (ICD-10) History of total hip replacement (~2016) ?Z96.649 - Presence of unspecified artificial hip joint (ICD-10) H/O umbilical hernia repair (~2017) ?Z98.890 - Other specified postprocedural states (ICD-10) ?Z87.19 - Personal history of other diseases of the digestive system (ICD-10) History of repair of inguinal hernia (~2017) ?Z98.890 - Other specified postprocedural states (ICD-10) ?Z87.19 - Personal history of other diseases of the digestive system (ICD-10) H/O foot surgery (10/30/21) ?Z98.890 - Other specified postprocedural states (ICD-10) H/O foot surgery (09/27/22) ?Z98.890 - Other specified postprocedural states (ICD-10) H/O colonoscopy (04/09/23) ?Z98.890 - Other specified postprocedural states (ICD-10) Family History (Updated 10/31/23 @ 13:51 by Dee Cisse NP) Other Family history of breast cancer Family history of diabetes mellitus Family history of kidney cancer Social History (Updated 10/31/23 @ 14:18 by Dee Cisse NP) Within the past year, how often did you have a drink containing alcohol: 2-4 times a month Smoking status: Never smoker Non-prescribed substance use: denies use 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 Highest level of school completed/degree received: Master's degree Little interest or pleasure in doing things: not at all Feeling down, depressed, or hopeless: not at all Meds Home Medications and Allergies Home Medications ?Medication ?Instructions ?Recorded ?Confirmed ?Type doxepin 50 mg capsule 50 mg PO QPM 10/31/23 09/20/25 History finasteride 5 mg tablet 5 mg PO DAILY 10/31/23 09/20/25 History tamsulosin 0.4 mg capsule 0.4 mg PO Q24H 10/31/23 09/20/25 History lisinopril 10 mg tablet 10 mg PO QDAY 09/06/25 09/20/25 History rivaroxaban 20 mg tablet (Xarelto) 20 mg PO DAILY 09/06/25 09/20/25 History ropinirole 5 mg tablet 5 mg PO DAILY 09/06/25 09/20/25 History clindamycin HCl 300 mg capsule 300 mg PO Q8H 09/20/25 09/20/25 History diltiazem HCl 240 mg 240 mg PO DAILY 09/20/25 09/20/25 History capsule,extended release 24 hr (Cardizem CD) flecainide 100 mg tablet 100 mg PO Q12H 09/20/25 09/20/25 History Allergies Allergy/AdvReac Type Severity Reaction Status Date / Time No Known Drug Allergies Allergy Verified 09/20/25 13:06 Exam Narrative Exam Narrative: Constitutional: Awake, alert, comfortable, well-appearing, nontoxic, interactive, vital signs as charted Head: Normocephalic, atraumatic Neck: Supple, normal appearance, normal range of motion, no meningeal signs, no lymphadenopathy Respiratory: No respiratory distress, breath sounds clear Cardiovascular: Regular rate and rhythm, strong and regular heart tones Abdomen: Nontender, normal bowel sounds, soft, no CVA tenderness Musculoskeletal: Normal gait, no swelling or edema Neuro: No neurological deficits, normal sensation Psychiatric: Oriented ?3, normal affect Assessment and Plan Assessment and Plan (1) Right testicular pain: (2) Chronic epididymitis: Plan Right simple orchiectomy scheduled with Dr. Solares September 30, 2025.
[2025-09-20 13:39] LABS: Anion Gap 11.2; Blood Urea Nitrogen 22.0 mg/dL (7.0-18.0); Calcium 9.0 mg/dL (8.5-10.1); Carbon Dioxide 29.9 mmol/L (21.0-32.0); Chloride 105 mmol/L (98-107); Estimated GFR (African America >60 (>=60 mL/min/1.73m^2); Estimated GFR (Non-African Ame 55 (>=60 mL/min/1.73m^2); Glucose 94 mg/dL (74-106); Potassium 4.1 mmol/L (3.5-5.1); Sodium 142 mmol/L (136-145)
[2025-09-20 13:50] LABS: Hematocrit 40.0 % (42.0-54.0); Hemoglobin 13.4 g/dL (14.0-18.0); Immature Granulocytes Abs Auto 0.01 10^3/uL (0.00-0.03); Immature Granulocytes Pct Auto 0.2 % (0.0-0.5); Lymphocytes Absolute Auto 1.6 10^3/uL (1.2-3.8); Mean Corpuscular HGB Conc 33.5 g/dL (29.9-35.2); Mean Corpuscular Hemoglobin 30.5 pg (25.9-34.0); Mean Corpuscular Volume 90.9 fL (80.0-94.0); Platelet Count 272 10^3/uL (150-450); Red Blood Count 4.40 10^6/uL (4.70-6.10); White Blood Count 6.6 10^3/uL (4.0-11.0)
[2025-09-20 13:58] LABS: INR 1.14; Partial Thromboplastin Time 36.8 sec (22.3-36.2); Prothrombin Time 11.9 sec (9.0-11.6)
== END 2025-09-20 12:47 | disposition home or self-care (01) ==
LOC: PST 12:47
PROVIDERS: PCP Family Medicine; Visit Provider Urology
DX: Z01.812 Encounter for preprocedural laboratory examination (principal); Z01.818 Encounter for other preprocedural examination; N40.1 Benign prostatic hyperplasia with lower urinary tract symptoms
CPT/HCPCS: 80048; 85025; 85610; 85730; G0463

== ENCOUNTER 2025-09-30 11:07 | Day surgery (SDC) | payer MEDICARE, SELFPAY ==
[2025-09-20 13:22] VITALS: BP 125/74; PULSE 56; TEMP 36.3; O2SAT 98; BMI 32.8
--- OUTSIDE RECORDS SUMMARY | 2025-09-21 07:40 | XMS_ITS | Encounter Summary ---
Author Organization [facility] [place] [facility] tem Address [id number] [address] [place] [address] Care Team Providers Care Surfacing Machine Operator Name Role Phone North Chapin MD Primary Care Provider [phone] Reason for Referral * Misc (Routine) - Pending ReviewSpecialtyDiagnoses / ProceduresReferred By ContactReferred To Contact Diagnoses Traumatic open wound of left lower leg with delayed healing Procedures Xeroform 4x4 Adri Núñez, DONATIONS ATTENDANT-PLANETARIUM TECHNICIAN [address] [place] [address] Phone: tel: fax: Referral IDStatusReasonStart DateExpiration DateVisits RequestedVisits [id number] Reason for Visit * ReasonCommentsWound Check Encounter Details DateTypeDepartmentCare Team (Latest Contact Info)Xuqxudfogvm73/28/2025 8:40 AM EDTOffice Visit [facility] [address] [place] [phone] Adri Núñez, DONATIONS ATTENDANT-PLANETARIUM TECHNICIAN [address] [place] [address] Traumatic open wound of left lower leg with delayed healing (Primary Dx) Social History Tobacco UseTypesPacks/DayYears UsedDateSmoking Tobacco: NeverSmokeless Tobacco: NeverAlcohol UseStandard Drinks/WeekCommentsYes0 (1 standard drink = 0.6 oz pure alcohol)One drink per weekChildcareAnswerDate QbsimiknFpjmhrwhjKkwjjbj23/12/2019 EmploymentAnswerDate VpedfzyvNzhmtanwvmYftyoku22/12/2019Hunger ScreeningAnswer Date RecordedWithin the past 12 months we worried whether our food would run out before we got money to buy more.Never True09/21/2025Within the past 12 months the food we bought just didn't last and we didn't have money to get more.Never True09/21/2025Purpose - LifeAnswerDate RecordedPurpose and direction in life Pljzvqh3601/05/2021ex and Gender InformationValueDate RecordedSex Assigned at ZexqoHtoh49/17/2020 1:17 PM ESTLegal EneVhvh9306/30/2015 11:47 AM EDTGender JdcjnhhdQfkq41/17/2020 1:17 PM ESTSexual MqbibzydpabZxumdhrd13/17/2020 1:17 PM ESTdocumented as of this encounter Last Filed Vital Signs Vital SignReadingTime TakenCommentsBlood Tokkwymp895/6110 8:42 AM EDT Tkzzr116409/21/2025 8:42 AM VAHLzojowzfawe09.7 ??C (98 ??F)09/21/2025 8:42 AM EDT Respiratory Mliy2959 8:42 AM EDTOxygen Saturation--Inhaled Oxygen Concentration--Weight--Height--Body Mass Index--documented in this encounter Patient Instructions * Patient Instructions* Lola Carpio RN - 09/21/2025 8:40 AM EDT Wound Management Treatment Plan Wound Location(s): left posterior knee HOW TO CARE FOR YOUR WOUND The following should be performed Daily and as needed. STEP 1: Cleanse wound with Soap and water, rinse well, and pat dry. Irrigate or rinse wound with NO IRRIGATION REQUIRED. STEP 2: Soak wound with NO SOAK REQUIRED. STEP 3: Pack with NO PACKING REQUIRED STEP 4: Apply NO TOPICAL AGENT REQUIRED to wound bed. STEP 5: Cover wound with Xeroform gauze, then Gauze, tape STEP 6: Secure dressings with cut piece of tubi furniture restorer ACTIVITY: Avoid direct pressure to wound(s) at all times and Reposition at least every 2 hours NUTRITION: High protein diet SKIN CARE: keep wounds covered at all times SWELLING CONTROL: Avoid standing for prolonged periods of time. Elevate legs whenever sitting to level of heart/hips or higher. SUPPLIES: xeroform, gauze, tubi furniture restorer netting, tape Current Date - 09/21/25 ITEMS TO FOLLOW UP ON: None Length Width Depth Wound 09/21/25 1 Traumatic Knee Left;Posterior-Wound Length (cm): 1.3 cm Wound 09/21/25 1 TraumaticKnee Left;Posterior-Wound Width (cm): 2.8 cm Wound 09/21/25 1 Traumatic Knee Left;Posterior-Wound Depth (cm): 0.5 cm Wound drainage Type Description small Serosanginous Serosanguinous, yellow documented in this encounter Progress Notes * Adri Mariano Núñez, DONATIONS ATTENDANT-PLANETARIUM TECHNICIAN - 09/21/2025 8:40 AM EDTAssociated Order(s): Debridement Post-Procedure Diagnose(s): Traumatic open wound of left lower leg with delayed healing Images from the original note were not included. Wound Care Progress Note Patient: Oscar Manuel Date of : 1950 Chief Complaint:: New patient evaluation Chief Complaint Patient presents with Wound Check PCP: NORTH CHAPIN MD Last PCP visit: Unknown SUBJECTIVE/HPI: Oscar is a 75 y.o. male who presents to [facility] for evaluation of 1 ulcer(s) on theposterior left knee. The wound was first assessed in wound clinic on 09/21/2025. Current daily wound care includes dry dressing. Patient was walking his dog on 09/06/2025. The dog started to run away causing the dog leash cut into the patient's posterior left knee. Patient was scheduled to go on vacation and was evaluated by an out of town urgent care. Sutures were initially placed but have since been removed. Patient continues to be on antibiotics Patient accompanied by: Spouse, patient is ambulatory No medical wireless construction manager needed for assessment/examination. No sensitive areas were evaluated. Nutritional screen shows patient does take increased amounts of protein in the diet. Patient denies fever, chills, sweats, or other signs of infection. Taking clindamycin as prescribed. Diabetic Blood Sugar: Non applicable. No results found for: HGBA1C Significant Findings or Change in Condition: Slight left leg edema Contributing comorbid conditions: Coronary Artery Disease Patient Active Problem List Diagnosis Degenerative joint disease of pelvic region Afib ([facility]) BPH (benign prostatic hyperplasia) Restless leg syndrome Sleep apnea Lumbosacral spondylosis without myelopathy Primary osteoarthritis of left hip Ischial bursitis of left side Status post total hip replacement, right Arrhythmia History of colonic polyps Hypertension Inguinal pain, right Pain in left foot Pseudarthrosis after fusion or arthrodesis Traumatic open wound of left lower leg with delayed healing Past Medical History: Diagnosis Date Afib ([facility]) Back pain lumbar BPH (benign prostatic hyperplasia) Cancer ([facility]) multiple basal cell Chronic pain disorder Hip pain, chronic, left Inguinal hernia right Joint pain Low back pain Osteoarthritis Restless leg syndrome Sleep apnea instructed to bring CPAP to hospital Umbilical hernia Varicella 8 years old Visual impairment glasses Past Surgical History: Procedure Laterality Date ADENOIDECTOMY COLONOSCOPY DENTAL SURGERY FOOT SURGERY 10/2021 right foot, 09/2022 left foot FRACTURE SURGERY 2012 broken lft wrist GANGLION CYST EXCISION from neck INGUINAL HERNIA REPAIR INJECTION BURSA LARGE JOINT: left hip Left 02/08/2023 Performed by Umair Decker MD at [facility] INJECTION BURSA LARGE JOINT: left ischial bursa Left 08/16/2023 Performed by Umair Decker MD at [facility] INJECTION LARGE JOINT BURSA Right 04/12/2017 Performed by Umair Decker MD at [facility] INJECTION MEDIAL BRANCH NERVE BLOCK: right [id number] Right 08/12/2020 Performed by Umair Decker MD at [facility] INSERTION LOOP RECORDER 01/24/2023 Dr Wilburn at [facility] JOINT REPLACEMENT right hip ORTHOPEDIC SURGERY Left 2012 wrist fixation RADIO FREQUENCY ABLATION: right [id number] Right 09/23/2020 Performed by Umair Decker MD at [facility] REPAIR HERNIA INGUINAL WITH MESH Right 09/23/2018 Performed by Ventura Watson DO at [facility] REPAIR HERNIA UMBILICAL WITH MESH N/A 09/23/2018 Performed by Ventura Watson DO at [facility] REPLACEMENT TOTAL JOINT ANTERIOR SUPINE INTERMUSCULAR HIP Right 07/10/2017 Performed by Schuyler Ambrocio MD at [facility] SKIN BIOPSY several, see fitness sales consultant yearly TONSILLECTOMY UMBILICAL HERNIA REPAIR 2017 brought it to the attention of PCP VASECTOMY 30 years ago WRIST SURGERY Current Outpatient Medications Medication Sig Dispense Refill acetaminophen (TYLENOL ARTHRITIS) 650 mg 8 hr tablet Take 1 tablet (650 mg total) by mouth every 8 (eight) hours as needed for pain. clindamycin (CLEOCIN) 300 mg capsule TAKE 1 CAPSULE BY MOUTH THREE TIMES DAILY FOR 10 DAYS DAILY MULTI-VITAMIN ORAL Take 1 tablet by mouth in the morning. dilTIAZem CD (CARDIZEM CD) 240 mg 24 hr capsule TAKE 1 CAPSULE ONCE DAILY DIRECTED (THIS IS AN INCREASE) doxepin (SINEquan) 50 mg capsule Take 1 capsule (50 mg total) by mouth nightly. famotidine (PEPCID) 20 mg tablet Take 1 tablet (20 mg total) by mouth in the morning and 1 tablet (20 mg total) before bedtime. (Patient taking differently: Take 1 tablet (20 mg total) by mouth in the morning.) ferrous sulfate 325 (65 FE) MG tablet Take 1 tablet (325 mg total) by mouth in the morning. finasteride (PROSCAR) 5 mg tablet flecainide (TAMBOCOR) 100 mg tablet Take 1 tablet (100 mg total) by mouth in the morning and 1 tablet (100 mg total) before bedtime. glucosamine-chondroitin 500-400 mg tablet Take 1 tablet by mouth in the morning and 1 tablet beforebedtime. lisinopriL (PRINIVIL,ZESTRIL) 10 mg tablet Take 1 tablet (10 mg total) by mouth in the morning. rivaroxaban (XARELTO) 20 mg tablet tablet Take 1 tablet (20 mg total) by mouth in the morning. rOPINIRole (REQUIP) 2 mg tablet Take 1 tablet (2 mg total) by mouth nightly. (Patient taking differently: Take 2.5 tablets (5 mg total) by mouth nightly.) tamsulosin (FLOMAX) 0.4 mg capsule,extended release 24hr Take 1 capsule (0.4 mg total) by mouth nightly. lisinopriL (PRINIVIL,ZESTRIL) 10 mg tablet Take 1 tablet (10 mg total) by mouth in the morning. No current facility-administered medications for this visit. No Known Allergies Social History Tobacco Use Smoking status: Never Smokeless tobacco: Never Substance Use Topics Alcohol use: Yes Comment: One drink per week Recent imaging: X-ray hip left 2-3 views with or without pelvis Result Date: 09/01/2025 Narrative: XR HIP LT 2-3 VIEWS W OR WO PELVIS Left hip pain Findings: There is grossly no fracture or destructive lesion. Impression: * No acute findings. Severe arthritis left hip bone on bone whichappear slightly worse than June 21, 2022 * Right hip prosthesis shows no acute findings within limitations of frontal view only. * Consider MRI if you suspect occult process. Finalized by Eddie Meeks MD on 09/01/2025 1:27 PM Laboratory Results Lab Results Component Value Date WBC 5.2 09/15/2018 HGB 14.9 09/15/2018 HCT 43.2 09/15/2018 MCV 91 09/15/2018 PLT 213 09/15/2018 Lab Results Component Value Date ALBUMIN 4.4 09/15/2018 The following portions of the patient's history were reviewed and updated as appropriate: allergies, current medications, past family history, past medical history, past social history, past surgicalhistory, problem list, and medication reconciliation was completed including current medication andpost discharge medication. Review of Systems Constitutional: Negative. Negative for activity change, appetite change and fever. HENT: Negative. Negative for trouble swallowing. Respiratory: Positive for apnea (CHERI). Negative for cough, shortness of breath and wheezing. Cardiovascular: Negative. Negative for chest pain, palpitations and leg swelling. Gastrointestinal: Negative. Negative for abdominal distention, nausea and vomiting. Genitourinary: Negative. Negative for dysuria, frequency and urgency. Musculoskeletal: Positive for arthralgias. Negative for neck stiffness. Skin: Positive for color change and wound. Neurological: Negative. Negative for numbness and headaches. OBJECTIVE: Vitals: 09/21/25 0842 BP: 137/61 Pulse: 74 Resp: 18 Temp: 36.7 ??C (98 ??F) BMI: Estimated body mass index is 32.12 kg/m?? as calculated from the following: Height as of 09/01/25: 188 cm (6' 2 ). Weight as of 09/01/25: 113.5 kg (250 lb 3.2 oz). Obesity Class I (30 - 34.9) Pain: Pain Scale 0/10: 2 Pain Description: Tender Relieved by: Rest Wound Focused Physical Assessment: Physical Exam Vitals and nursing note reviewed. Constitutional: Appearance: He is well-developed. HENT: Head: Normocephalic and atraumatic. Cardiovascular: Rate and Rhythm: Normal rate and regular rhythm. Pulses: Dorsalis pedis pulses are 2+ on the left side. Posterior tibial pulses are 2+ on the left side. Heart sounds: Normal heart sounds. No murmur heard. No gallop. Pulmonary: Effort: Pulmonary effort is normal. Breath sounds: Normal breath sounds. No wheezing. Abdominal: General: Bowel sounds are normal. Palpations: Abdomen is soft. Musculoskeletal: General: Normal range of motion. Cervical back: Normal range of motion. Feet: Comments: Left pedal pulses palpable, strong Left lower extremity 1+ soft pitting edema Left leg pale, diminished hair growth Skin: General: Skin is warm and dry. Neurological: Mental Status: He is alert and oriented to person, place, and time. Vascular: Left Lower Extremity Left lower extremity pulses DP: 2+ PT: 2+ Vascular Assessment: LLE Color: Pigmented LLE Temperature/Moisture: Cool L Posterior Tibial Pulse: Doppler L Dorsalis Pedis/Pedal Pulse: Doppler Sensation: Present Calf Measurement: 40.4 cm Wound Assessment: Wound 09/21/25 1 Traumatic Knee Left;Posterior (Active) Wound Image 09/21/25908 Site Assessment Red;[place];Yellow 09/21/25 08 Heather-wound Assessment Red;Blanchable erythema;Dry;Induration 09/21/25853 Wound Length (cm) 1.3 cm 09/21/25908 Wound Width (cm) 2.8 cm 09/21/25908 Wound Surface Area (cm^2) 2.86 cm^2 09/21/25908 Wound Depth (cm) 0.5 cm 09/21/25908 Wound Volume (cm^3) 0.953 cm^3 09/21/25908 Change in Wound Size % 0 09/21/25908 Drainage Description Yellow;Serosanguineous 09/21/25853 Drainage Amount Small 09/21/25853 Treatments Cleansed with;Soak with;Vashe/Hypochlorous Acid 09/21/25853 Debridement Performed? Y 09/21/25908 Type of Debridement Sharp to Subcutaneous 09/21/25908 Dressing Type Xeroform;Gauze;Gauze Rolled/Kerlix;Other (Comment) 09/21/25908 Dressing Changed New 09/21/25908 Dressing Status Clean;Dry;Intact 09/21/25908 Wound Bed Granulation (%) < 25% 09/21/25853 Wound Bed Slough (%) 75% to 100% 09/21/25853 Pre debridement Post debridement Healing Status: Wound stable Debridement Performed by: ОЛЕГ Pinzon Authorized by: ОЛЕГ Pinzon Associated wounds: Wound 09/21/25 1 Traumatic Knee Left;Posterior Consent: Consent obtained: Verbal and written Consent given by: Patient Risks discussed: Yes Debridement Details: Performed by: SAND CAR WORKER Type: Sharp Level: Subcutaneous Tissue, Devitalized tissue and other material debrided: Subcutaneous tissue, slough and fibrin Anesthesia administration: topical Anesthesia: EMLA and benzocaine Total Surface Area Debrided cm^2: 2.86 Specimen Taken: None Instrument: Curette Amount of bleeding: Medium Bleeding Control: Pressure Response to treatment: Procedure was tolerated well Tissue Applied?: No Dressing: The wound was cleansed with Soap and water, rinse well, and pat dry and a Xeroform gauze dressing was placed in wound clinic. Offloading: Continue offloading with: Avoid direct pressure ASSESSMENT/PLAN/EDUCATION: 1. Traumatic open wound of left lower leg with delayed healing (Primary) Wash mild soap and water Cover with Xeroform Cover with dry dressing of comfort Hold in place with either single layer Tubigrip or stockinet Change daily Continue antibiotic as prescribed Patient instructed in wound care to current wounds present as above. Follow up: Provider: Return to the wound clinic in 2 weeks for your provider to evaluate the need for further skilled services and consider additional treatment(s). -We will continue to monitor closely for wound healing and to avoid any complications or infection. Nurse Visit: Not needed Communication sent to Home Health Agency/Skilled Care Facility: NA Treatment Goals Short Term: Engagement in therapy and care. Mcfp: Wound closure Education: -The patient/family/caregiver was taught to watch for S/S of infection (redness, pus, pain, increased swelling, chills or fever) and to call the wound care clinic or PCP if such occurs. -The patient/family/caregiver was educated on offloading the area by avoiding direct pressure to the wound bed. -The patient/family/caregiver was advised to eat a high protein diet. -Education, as well as the pathophysiology of the disease process, was provided on infection, edema, necrotic tissue and its relationship to nonhealing wounds. -Education was provided on treatment plan. -Patient/family/caregiver verbalized understanding. Instructed to RETURN SOONER OR PROCEED TO EMERGENCY ROOM if there are any concerns or symptoms worsen. Total time spent was 25 minutes: Preparing to see the patient (e.g., review of tests) Obtaining and/or reviewing separately obtained history Performing a medically appropriate examination and/or evaluation Counseling and educating the patient/family/caregiver Ordering medications, tests, or procedures Documenting clinical information in the electronic or other health record ОЛЕГ PINZON 09/21/25 9:51 AM [facility] ОЛЕГ Pinzon 09/21/25 1000 documented in this encounter Miscellaneous Notes * Addendum Note - Lola Carpio RN - 09/21/2025 8:40 AM EDTAddended by: LOLA CARPIO on: 09/24/2025 02:49 PM Modules accepted: Orders documented in this encounter Plan of Treatment DateTypeDepartmentCare Team (Latest Contact Info)Hlaozsmkaof19/11/2025 11:00 AM ESTOffice Visit [facility] [address] [phone] Adri Núñez APRN-CNP [address] [place] [address] 12/06/2025 9:00 AM ESTOffice Visit [facility] [address] [place] [phone] Schuyler Ambrocio MD [address] [place] [address] documented as of this encounter Goals GoalPatient Goal TypeAssociated ProblemsRecent ProgressPatient-Stated?Author Improve mobility Poly Gray RN Note: Evaluation of progress towards goal: Maximize work with PT at discharge to strengthen R hip documented as of this encounter Procedures Procedure NamePriorityDate/TimeAssociated DiagnosisCommentsNURSING COMMUNICATION Cgdhcsp1809/24/2025 2:49 PM EDT Traumatic open wound of left lower leg with delayed healing ZFRYNMPRYUFGgzfwuq25/28/2025 8:40 AM EDT Traumatic open wound of left lower leg with delayed healing documented in this encounter Results * Xeroform 4x4 (09/24/2025 2:49 PM EDT) Narrative MANUALLY TRANSCRIBED RESULTS - 09/24/2025 2:49 PM EDT Applied in clinic Authorizing ProviderResult TypeResult StatusAdri DENNEYNURSING COMMUNICATIONFinal ResultPerforming OrganizationAddressCity/State/ZIP CodePhone Number MANUALLY TRANSCRIBED RESULTS * Debridement (09/21/2025 8:40 AM EDT) Narrative MANUALLY TRANSCRIBED RESULTS - 09/21/2025 8:40 AM EDT ОЛЕГ Pinzon 09/21/2025 10:00 AM Debridement Performed by: ОЛЕГ Pinzon Authorized by: ОЛЕГ Pinzon ??Associated wounds: Wound 09/21/25 1 Traumatic Knee Left;Posterior Consent: ??Consent obtained: ??Verbal and written ??Consent given by: ??Patient ??Risks discussed: Yes ?? Debridement Details: ??Performed by: ??SAND CAR WORKER ??Type: ??Sharp ??Level: ??Subcutaneous ??Tissue, Devitalized tissue and other material debrided: ??Subcutaneous tissue, slough and fibrin ??Anesthesia administration: topical ?Anesthesia: ??EMLA and benzocaine ??Total Surface Area Debrided cm^2: ??2.86 ??Specimen Taken: ??None ??Instrument: ??Curette ??Amount of bleeding: ??Medium ??Bleeding Control: ??Pressure ??Response to treatment: ??Procedure was tolerated well ??Tissue Applied?: ??No Authorizing ProviderResult TypeResult StatusAdri Núñez DONATIONS ATTENDANT-PLANETARIUM TECHNICIAN PROCEDURE/MINOR SURGICAL ORDERABLESFinal ResultPerforming OrganizationAddress City/State/ZIP CodePhone Number MANUALLY TRANSCRIBED RESULTS documented in this encounter Visit Diagnoses Diagnosis Traumatic open wound of left lower leg with delayed healing- Primary documented in this encounter Care Teams Team MemberRelationshipSpecialtyStart DateEnd Date North Chapin MD PCP - GeneralFamily Mscfaskw99/13/24documented as of this encounter
--- OUTSIDE RECORDS SUMMARY | 2025-09-23 13:15 | XMS_ITS | Encounter Summary ---
Author Organization [facility] Address [id number] [address] [place] [address] Care Team Providers Care Scheduling Clerk Name Role Phone North Gomes MD Primary Care Provider [phone] Reason for Visit * ReasonCommentsPainLT hip injection, saw Dr. Ambrocio 09/01/25 Encounter Details DateTypeDepartmentCare Team (Latest Contact Info)Mxugenwbuth14/30/2025 2:15 PM EDTProcedure visit [facility] [address] [place] [phone] Tavares Eng PA [address] [facility] [place] [address] Primary osteoarthritis of left hip (Primary Dx) Social History Tobacco UseTypesPacks/DayYears UsedDateSmoking Tobacco: NeverPassive Smoke Exposure: NeverSmokeless Tobacco: NeverAlcohol UseStandard Drinks/WeekComments Yes0 (1 standard drink = 0.6 oz pure alcohol)One drink per weekChildcareAnswer Date SvmswmrkZmfewaxjcStiltfo43/12/2019EmploymentAnswerDate RecordedEmployment Kxogekj3905/06/2019Hunger ScreeningAnswerDate RecordedWithin the past 12 months we worried whether our food would run out before we got money to buy more.Never True09/21/2025Within the past 12 months the food we bought just didn't last and we didn't have money to get more.Never True09/21/2025Purpose - LifeAnswerDate RecordedPurpose and direction in mdueYflnjjr56/11/2021ex and Gender Information ValueDate RecordedSex Assigned at RfmnaAcce24/17/2020 1:17 PM ESTLegal SexMale 06/30/2015 11:47 AM EDTGender ItwhqycbTekw98/17/2020 1:17 PM ESTSexual TzenahtxrstNyiixvba03/17/2020 1:17 PM ESTdocumented as of this encounter Last Filed Vital Signs Vital SignReadingTime TakenCommentsBlood Pressure--Pulse--Temperature-- Respiratory Rate--Oxygen Saturation--Inhaled Oxygen Concentration--Xtgcal391.4 kg (250 lb)09/23/2025 2:13 PM OWYMyemfq002 cm (6' 2 )09/23/2025 2:13 PM EDTBody Mass Index32. 2:13 PM EDTdocumented in this encounter Patient Instructions * Attachments The following attachments cannot be sent through Care Everywhere. * Hip pain ??? ED discharge instructions (East Timorese) documented in this encounter Progress Notes * MORIS Powers - 09/23/2025 2:15 PM EDTAssociated Order(s): $ Large Joint Injection: hip, L hip joint Post-Procedure Diagnose(s): Primary osteoarthritis of left hip Patient is here for left hip joint injection. $ Large Joint Injection: hip, L hip joint on 09/23/2025 2:21 PM Indications: pain Details: (25 G then 22 G ) needle, anterior (Ultrasound guided) approach Medications: 10 mg BUPivacaine HCl 0.5 % (5 mg/mL); 1 mEq sodium bicarbonate 8.4 % (1 mEq/mL); 60 mg lidocaine 10 mg/mL (1 %); 80 mg methylPREDNISolone acetate 40 mg/mL Outcome: tolerated well, no immediate complications Procedure, treatment alternatives, risks and benefits explained, specific risks discussed. Consent was given by the patient. Patient was prepped and draped in the usual sterile fashion. F/u 3-6 months or prn MORIS Powers 09/23/25 1426 MORIS Powers 09/28/25 1114 documented in this encounter Miscellaneous Notes * Code Documentation - MORIS Powers - 09/23/2025 2:15 PM EDT All of my waste notes should be zero. This has never been an issue on our templates so I was unaware of a change in the system. I have multiple charts this is an issue for so they should all be zero. Please advise on this inconvenience MORIS Powesr 09/28/25 1116 documented in this encounter Plan of Treatment DateTypeDepartmentCare Team (Latest Contact Info)Ncakzarbmvr14/11/2025 11:00 AM ESTOffice Visit [facility] [address] [place] [phone] Adri Núñez, COOK [employer] EGGS-PRINTING MACHINE OPERATOR [employer] [address] [place] [address] 12/06/2025 9:00 AM ESTOffice Visit [facility] [address] [place] [address] [address] [place] [phone] Schuyler Ambrocio MD [address] [place] [address], [address] [place] [address] documented as of this encounter Goals GoalPatient Goal TypeAssociated ProblemsRecent ProgressPatient-Stated?Author Improve mobility Poly Gray, DERIC Note: Evaluation of progress towards goal: Maximize work with PT at discharge to strengthen R hip documented as of this encounter Procedures Procedure NamePriorityDate/TimeAssociated DiagnosisCommentsPR ARTHROCENTESIS ASPIR&/INJ MAJOR JT/BURSA W/O GJBkcyvgr47/30/2025 2:21 PM EDT Primary osteoarthritis of left hip documented in this encounter Results * TX ARTHROCENTESIS ASPIR&/INJ MAJOR JT/BURSA W/O US (09/23/2025 2:21 PM EDT) Narrative MANUALLY TRANSCRIBED RESULTS - 09/23/2025 2:21 PM EDT MORIS Powers 09/28/2025 11:14 AM $ Large Joint Injection: hip, L hip joint on 09/23/2025 2:21 PM Indications: pain Details: (25 G then 22 G ) needle, anterior (Ultrasound guided) approach Medications: 10 mg BUPivacaine HCl 0.5 % (5 mg/mL); 1 mEq sodium bicarbonate 8.4 % (1 mEq/mL); 60 mg lidocaine 10 mg/mL (1 %); 80 mg methylPREDNISolone acetate 40 mg/mL Outcome: tolerated well, no immediate complications Procedure, treatment alternatives, risks and benefits explained, specific risks discussed. Consent was given by the patient. Patient was prepped and draped in the usual sterile fashion. Authorizing ProviderResult TypeResult StatusSisally SUBRAMANIAN PROCEDURE/MINOR SURGICAL ORDERABLESEdited Result - FinalPerforming Organization AddressCity/State/ZIP CodePhone Number MANUALLY TRANSCRIBED RESULTS documented in this encounter Visit Diagnoses Diagnosis Primary osteoarthritis of left hip- Primary documented in this encounter Administered Medications Medication OrderMAR ActionAction DateDoseRateSite BUPivacaine HCl (MARCAINE) 0.5 % (5 mg/mL) injection 10 mg 10 mg, intra-articular, One-Time Injection, Starting on Alesia 09/23/25 at 1421, For 1 dose Indications:Primary osteoarthritis of left slxPmgzx33/30/2025 2:21 PM EDT10 mg lidocaine (XYLOCAINE) 10 mg/mL (1 %) injection 60 mg 60 mg, intra-articular, One-Time Injection, Starting on Alesia 09/23/25 at 1421, For 1 dose Indications:Primary osteoarthritis of left hvoAkfei09/30/2025 2:21 PM EDT60 mg methylPREDNISolone acetate (DEPO-MEDROL) injection 80 mg 80 mg, One-Time Injection, Starting on Alesia 09/23/25 at 1421, For 1 dose Indications:Primary osteoarthritis of left ldnSjcyg11/30/2025 2:21 PM EDT80 mg sodium bicarbonate 8.4 % (1 mEq/mL) injection 1 mEq 1 mEq, intra-articular, One-Time Injection, Starting on Alesia 09/23/25 at 1421, For 1 dose Indications:Primary osteoarthritis of left pqrRvgqu74/30/2025 2:21 PM EDT1 mEq documented in this encounter Care Teams Team MemberRelationshipSpecialtyStart DateEnd Date North Gomes MD PCP - GeneralFamily Yjlatngx62/13/24documented as of this encounter
--- OUTSIDE RECORDS SUMMARY | 2025-09-28 15:05 | XMS_ITS | Encounter Summary ---
Author Organization [facility] Address [address] [place] [address] Care Team Providers Care Historic Sites Registrar Name Role Phone North Gomes MD Primary Care Provider [phone] North Gomes MD Unavailable Reason for Visit * ReasonCommentsSkin Check Encounter Details DateTypeDepartmentCare Team (Latest Contact Info)Stkvuqiikol53/04/2025 3:05 PM ESTOffice Visit [facility] [address] [facility] [address] [place] [phone] Miriam Carpenter MD [address] [facility] [address] [place] [address] Seborrheic keratosis (Primary Dx); Capillary angioma; Lentigines; Melanocytic nevus of trunk; History of basal cell carcinoma; Actinic keratosis; Neoplasm of unspecified behavior of bone, soft tissue, and skin Social History Tobacco UseTypesPacks/DayYears UsedDateSmoking Tobacco: NeverSmokeless Tobacco: NeverAlcohol UseStandard Drinks/WeekCommentsNot Currently0 (1 standard drink = 0.6 oz pure alcohol)caffeine 1-2 cups per daySocial Connection and Isolation PanelAnswerDate RecordedIn a typical week, how many times do you talk on the phone with family, friends, or neighbors?Once a week02/03/2024How often do you get together with friends or relatives?Once a week02/03/2024How often do you attend scientologist or taoist services?More than 4 times per year02/03/2024o you belong to any clubs or organizations such as scientologist groups, unions, fraternal or athletic groups, or school groups?Yes02/03/2024How often do you attend meetings of the clubs or organizations you belong to?More than 4 times per year02/03/2024 Are you , , , , never , or living with a partner?Zjtjeyb1102/03/2024UDIT-CAnswerDate RecordedQ1: How often do you have a [...] heating?Not hard at all02/03/2024HQ-2AnswerDate RecordedPatient Health Questionnaire-2 [place] [place] [facility] Occupational Health - Occupational Stress QuestionnaireAnswerDate [...] steady place to sleep or slept in ashelter (including now)?No 02/03/2024Sex and Gender InformationValueDate RecordedSex Assigned at BirthNot on fileLegal PdqMuca4602/06/2023 7:14 PM EDTGender IdentityNot on fileSexual OrientationNot on filedocumented as of this encounter Progress Notes * Miriam Carpenter MD - 09/28/2025 3:05 PM EST Images from the original note were not included. Skin Check Location: Patient requests a full body skin examination Dermatologic history: history of Actinic Keratosis, history of Basal Cell Carcinoma Last visit: 6 months ago Established patient Lesions: Location: left leg, behind the right ear Duration: months Quality: denies pain, denies itch, denies bleeding Modifying factors: aggravated by picking Associated symptoms: non-healing Treatments: none All pertinent medical history, medications, and allergies were reviewed. General Exam: alert, oriented to person, place, and time, normal affect, well appearing Unaccompanied Areas not examined despite medical recommendation: patient kept shorts and socks on Scalp, Examined Right leg Examined , lower only Head, Face Examined Left leg Examined , lower only Neck Examined Right foot Examined Chest Examined Left foot Examined Back Examined Buttocks not examined Abdomen Examined Digits,nails: Examined Right arm Examined Left arm Examined Lymphatics: Not examined Hands Examined Skin Exam 1. CAPILLARY ANGIOMA Generalized Scattered lopez-red papule(s). The patient was informed that angiomas are benign growths on the the skin. No treatment is necessary. 2. LENTIGINES Generalized Scattered owusu macules in sun-exposed areas. The patient was informed that lentigines are benign pigmented lesions that occur on sun-exposed andsun-damaged skin. No treatment is necessary. Recommended regular use of broad spectrum sunscreen SPF 30 or higher 3. MELANOCYTIC NEVUS OF TRUNK Generalized Scattered benign appearing, regular brown to light brown melanocytic papules and macules with similar morphology Counseled regarding these benign growths. Rarely, a nevus can develop into malignant melanoma, so any changing nevi should be promptly re-evaluated. 4. SEBORRHEIC KERATOSIS Generalized Stuck on verrucous, owusu-brown papules and plaques. Patient was counseled regarding these benign growths. Removal is normally not necessary, but they may be removed if they are symptomatic or for cosmetic reasons. 5. HISTORY OF BASAL CELL CARCINOMA Generalized No evidence of recurrence at BCC scar. The patient was counseled that scars from excisional sites of nonmelanoma skin cancers should be monitored closely for recurrence. The patient was instructed to contact the office for any new, changing, or symptomatic moles. The patient was also instructed to contact the office for any new lesions that develop within or around the previous surgery scar. 6. ACTINIC KERATOSIS (11) Left Buccal Cheek, Left Zygomatic Area, Right Buccal Cheek, Right Dorsal Hand, Right Forearm - Anterior (3), Right Posterior Neck (2), Right Faith, Scalp Erythematous scaly papules Patient was counseled regarding these sun-induced growths that can develop into squamous cell carcinoma if left untreated. Discussed treatment options, including cryotherapy and topical preparations.It was emphasized that any treated lesions that fail to resolve should be re-evaluated. Patient elected for treatment with Efudex as this has become a chronic issue. Educated on Efudex treatment. Apply to Scalp twice a day for two weeks. Discussed that treated areas will become red, crusty, and inflamed. If areas become too uncomfortable, patient may use OTC hydrocortisone cream to help decrease irritation and can discontinue treatment early. Sun exposure should be avoided during treatment. Patient instructed to contact office for any questions or issues during treatment. Lesions that fail toresolve once treated area is healed should be re- evaluated in the office. Handout given to patient Diagnosis: Actinic keratosis Indication: Precancerous Location: see skin exam Consent: Verbal consent was obtained and risks were discussed, including, but not limited to risks of scarring, darker or outside machinist supervisor pigmentary changes, recurrence, incomplete removal and infection. Method: Liquid nitrogen was used to treat the lesion(s) with two 5-10 second freeze-thaw cycles Number of lesions treated: 10 Post-procedure instructions: Instructions were given orally and in writing. The office will be contacted if the lesion fails to resolve despite treatment, or if a side effect develops such as abnormal crusting, scabbing, redness or tenderness - Cryotherapy, skin lesion - Left Buccal Cheek, Left Zygomatic Area, Right Buccal Cheek, Right Dorsal Hand, Right Forearm - Anterior (3), Right Posterior Neck (2), Right Faith - fluorouracil (Efudex) 5 % cream - Scalp - Apply to directed areas on the scalp twice a day x 14 days. Dispense 30 day supply but only use for 14 days. 7. NEOPLASM OF UNSPECIFIED BEHAVIOR OF BONE, SOFT TISSUE, AND SKIN (2) Mid Back Tenafly papule - Lesion biopsy Type of biopsy: tangential Informed [...] lesion was anesthetized in a standard fashion Instrument used: DermaBlade Hemostasis achieved with: electrodesiccation [...] details: Photo taken Amount of lidocaine used: 0.5 cc Specimen A - Dermatopathology exam Differential Diagnosis: BCC Check Margins: Yes Size of lesion: 0.6 x 0.7 cm Left Lower Leg - Anterior Hyperkeratotic papule - Lesion biopsy Type of biopsy: tangential Informed [...] lesion was anesthetized in a standard fashion Instrument used: DermaBlade Hemostasis achieved with: electrodesiccation [...] details: Photo taken Amount of lidocaine used: 1cc Specimen B - Dermatopathology exam Differential Diagnosis: SCC Check Margins: No Size of lesion: 1.6 x 1.5 cm Next Visit: 6 months documented in this encounter Plan of Treatment DateTypeDepartmentCare Team (Latest Contact Info)Kfeswzaparc56/05/2026 1:45 PM EDTOffice Visit [facility] [address] [place] [address] Miriam Carpenter MD [address] [place] [address] NameTypePriorityAssociated DiagnosesOrder ScheduleDermatopathology examPathology and CytologyTimed Neoplasm of unspecified behavior of bone, soft tissue, and skin Release Upon Ordering for 1 Occurrences starting 09/28/2025documented as of this encounter Procedures Procedure NamePriorityDate/TimeAssociated DiagnosisCommentsSKIN / NAIL BIOPSY Kpvyqlg3609/28/2025 3:08 PM EST Neoplasm of unspecified behavior of bone, soft tissue, and skin SKIN / NAIL EBQTSEDqmfpuj74/04/2025 3:06 PM EST Neoplasm of unspecified behavior of bone, soft tissue, and skin CRYOTHERAPY SKIN NRQCBZWgqezkf03/04/2025 3:05 PM EST Actinic keratosis documented in this encounter Results * Lesion biopsy (09/28/2025 3:08 PM EST) Narrative Darling Rosas MA - 09/28/2025 3:08 PM EST Type of biopsy: tangential Informed consent: discussed and consent obtained ?? Informed consent comment: ??The risks and benefits of the biopsy were discussed. Risks include but are not limited to bleeding, infection, scarring, pain, and nerve damage. An opportunity to ask questions prior to the procedure was permitted and all questions were answered. Patient was prepped and draped in usual sterile fashion: area cleansed with alcohol. Anesthesia: the lesion was anesthetized in a standard fashion ?? Instrument used: DermaBlade ?? Hemostasis achieved with: electrodesiccation ?? Outcome: patient tolerated procedure well ?? Outcome comment: ??The specimen was placed in a prelabeled formalin container to be sent for pathology Post-procedure details: sterile dressing applied and wound care instructions given ?? Post-procedure details comment: ??Emphasized need to contact clinic for any signs of infection, uncontrollable bleeding, or complications. Dressing type: bandage ?? Additional details: ??Photo taken Amount of lidocaine used: 1cc Authorizing ProviderResult TypeResult StatusEmily A Petitti MDDERM PROCEDURE ORDERABLESFinal Result * Lesion biopsy (09/28/2025 3:06 PM EST) Narrative Darling Rosas MA - 09/28/2025 3:06 PM EST Type of biopsy: tangential Informed consent: discussed and consent obtained ?? Informed consent comment: ??The risks and benefits of the biopsy were discussed. Risks include but are not limited to bleeding, infection, scarring, pain, and nerve damage. An opportunity to ask questions prior to the procedure was permitted and all questions were answered. Patient was prepped and draped in usual sterile fashion: area cleansed with alcohol. Anesthesia: the lesion was anesthetized in a standard fashion ?? Instrument used: DermaBlade ?? Hemostasis achieved with: electrodesiccation ?? Outcome: patient tolerated procedure well ?? Outcome comment: ??The specimen was placed in a prelabeled formalin container to be sent for pathology Post-procedure details: sterile dressing applied and wound care instructions given ?? Post-procedure details comment: ??Emphasized need to contact clinic for any signs of infection, uncontrollable bleeding, or complications. Dressing type: bandage ?? Additional details: ??Photo taken Amount of lidocaine used: 0.5 cc Authorizing ProviderResult TypeResult StatusEmily A Petitti MDDERM PROCEDURE ORDERABLESFinal Result * Cryotherapy, skin lesion (09/28/2025 3:05 PM EST) Narrative Authorizing ProviderResult TypeResult StatusEmily A Petitti MDDERM PROCEDURE ORDERABLESFinal Result documented in this encounter Visit Diagnoses Diagnosis Seborrheic keratosis- Primary Capillary angioma Nevus, non-neoplastic Lentigines Melanocytic nevus of trunk Benign neoplasm of skin of trunk, except scrotum History of basal cell carcinoma Personal history of other malignant neoplasm of skin Actinic keratosis Neoplasm of unspecified behavior of bone, soft tissue, and skin documented in this encounter Additional Health Concerns AssessmentNoted TimePHQ-9 Depression Total Score: 2:00 PM EDT documented as of this encounter Care Teams Team MemberRelationshipSpecialtyStart DateEnd Date North Gomes MD PCP - GeneralFamily Medicine02/04/24 North Gomes MD [address] [place] [address] PCP - [employer]02/24/24documented as of this encounter
--- OUTSIDE RECORDS SUMMARY | 2025-09-29 09:26 | XMS_ITS | Continuity of Care Document ---
Author Organization [facility] Address [address] [place] [address] Phone Care Team Providers Care Ultrasonic Tester Name Role Phone North Gomes MD Primary Care Provider [phone] Isamar Dominguez APRN Attending Provider Ranjit Solares MD Attending Provider North Gomes MD Attending Provider Care Teams Patient Care Team Team Status: Active Member Role/Relationship Status Dates North Gomes MD Primary Care Provider Active Visit Care Team Team Status: Inactive Member Role/Relationship Status Dates North Gomes MD Primary Care Provider Active S tart: September 17, 2025 End: September 17, 2025Maria Luz Dos Santos ProviderActiveStart: September 17, 2025 End: September 17, 2025 Visit Care Team Team Status: Inactive Member Role/Relationship Status Dates Isamar Dominguez APRN Attending Provider Active Start: September 17, 2025 End: September 17, 2025 Visit Care Team Team Status: Active Member Role/Relationship Status Dates Ranjit Solares MD Attending Provider Active St art: September 20, 2025 Patient Care Team Team Status: Inactive Member Role/Relationship Status Dates North Gomes MD Primary Care Provider Active S tart: September 29, 2025 End: September 29, 2025[facility] Tona Gomes ProviderActiveStart: September 29, 2025 End: September 29, 2025 Chief Complaint and Reason for Visit Chief Complaint Admit Date Wound posterior left knee September 17, 2025 2:36pm L08.9 T14.8XXA September 17, 2025 7 :10pm Established Patient September 29, 2025 1 :35pm Reason for Visit Admit Date Encounter for wound care September 17, 2 025 2:36pm Paroxysmal atrial fibrillation September 29, 2025 1:35pm Primary osteoarthritis of left hip Novem 2024 1:35pm Restless leg syndrome September 29, 2025 1:35pm Spondylosis of lumbar region without myelopathy or radiculopathy September 29, 2025 1:35pm Reason for Referral Type Reason(s) Provider Provider Contact Information P rovider Address Start Date Cellulitis of left knee Delayed wound yopztxwG31.116 - Cellulitis of left lower limb,T14.8XXD - Other injury of unspecified body region, subsequent encounterDetermined by PatientOctober 2024 Allergies, Adverse Reactions, Alerts Allergen Type Severity Reaction Last Updated Verified Status No Known Allergies Allergy Unknown September 29, 2025 1:48pmYesActive Social History Smoking Status Status Start Date End Date Date of Observa tion Never smoked tobacco (finding) September 29, 2025 1:52pm Observation Status Observation Response Date of Response Legal Sex Male (finding) Sex Assigned At BirthMaleApril 1949 Family History Relationship Condition Age at Onset Recorded Date/T carmelo sister Malignant neoplasm of skin Unknown motherHeart diseaseUnknownMalignant neoplasm of breastUnknownfatherMalignant neoplasm of kidneyUnknown Problems Active Problems Problem Diagnosis/Recorded Date Onset Date Stat Mohs defect of forehead April 19, 2022 2:32pm Unknown Active BPH (benign prostatic hyperplasia) April 19, 2022 2:31 pm Unknown Active BCC (basal cell carcinoma) April 19, 2022 2:31pm Unkno wn Active Medicare annual wellness vis it, subsequent September 29, 2025 1:12pm Unknown Active Insomnia, unspecified September 27, 2025 2:58pm Unknow n Active Obstructive sleep apnea September 27, 2025 2:59pm Unkn own Active Spondylosis of lumbar region without myelopathy or radiculopathy September 27, 2025 3:01pm Unknown Active Primary osteoarthritis of left hip September 29, 2025 2:22pm Unknown Active Primary osteoarthritis of right hip September 27, 2025 2:59pm Unknown Active H/O epididymitis September 27, 2025 2:58pm Unknown Active Dyslipidemia September 27, 2025 2:58pm Unknown Ac tive Restless leg syndrome April 19, 2022 2:32pm Unknown Active Encounter for long-term (cur rent) use of medications September 29, 2025 1:12pm Unknown Active Gastroesophageal reflux dise ase without esophagitis September 27, 2025 2:58pm Unknown Active Prediabetes September 27, 2025 2:59pm Unknown Ac tive Paroxysmal atrial fibrillation September 29, 2025 1:14 pm Unknown Active SCC (squamous cell carcinoma) April 19, 2022 2:30pm Un known Active Obesity September 27, 2025 2:58pm Unknown Ac tive Inactive/Resolved Problems Problem Diagnosis/Recorded Date Onset Date Stat us Delayed wound healing September 17, 2025 2:13pm Unknow n Resolved Claustrophobia September 27, 2025 2:57pm Unknown Resolved History of atrial fibrillation April 19, 2022 2:31pm U nknown Resolved Cellulitis of knee, left September 17, 2025 2:13pm Unk nown Resolved Medications Medication Status Dose Units Route Directions Qty Days Refills S tart Date Stop Date End Date Reason(s) Instructions Adherence Doxepin 50 mg capsule Active 50 MG PO Daily at b edtime April 18, 2022 11:00pmComplies with drug therapyTamsulosin 0.4 mg capsuleActive 0.4MGPODailyApril 18, 2022 11:00pmBPHComplies with drug therapyRopinirole 2 mg pkcteqRdheexplzgsq3FMZGVwxju at bedtimeApril 18, 2022 11:00pmSeptember 29, 2025 2:24pmRLSDiltiazem Hcl 180 mg capsule,ext.rel 24h xjmetkroejVvbassbcapvb866NYRM DailyApril 18, 2022 11:00pmSeptember 27, 2025 3:22pmA-fibFinasteride 5 mg tablet Pqnbrp8CXOUPkorjChg 25th, 2022 11:00pmBPHComplies with drug therapyPotassium Citrate 99 mg GzswcnlPhbibowsnrbt44RFTSZhqimxhXql 25th, 2022 11:00pmSeptember 29, 2025 1:50pmEye [facility] 1 yhdYwsnphwfvueb4GFCYRIsjuoHac 25th, 2022 11:00pm September 29, 2025 1:50pmeye healthRopinirole 3 mg vnqjbaZwsjna2SLETWxolk at bobafak156Qqlgiwhl 5th, 2025 2:23pmRLSComplies with drug therapyDiltiazem Hcl 240 mg capsule,extended release 24hrActiveMGPOOctmarcum and wallace memorial hospital 2024 11:00pmComplies with drug therapyLisinopril 10 mg tabletActiveMGPOOctmarcum and wallace memorial hospital 2024 11:00pm Complies with drug therapyFlecainide 100 mg tabletActiveMGPOOct2024 11:00pmComplies with drug therapyRivaroxaban (Xarelto) 20 mg tabletActiveMGPO September 16, 2025 11:00pmComplies with drug therapyClindamycin Hcl 300 mg capsuleDiscontinuedMGPOOct2024 11:00pmSeptember 29, 2025 1:48pm Procedures Procedure Date Performed Status Aerobic Culture September 17, 2025 completed Anaerobic Culture September 17, 2025 completed Gram Stain September 17, 2025 completed Relevant Diagnostic Tests and/or Laboratory Data Laboratory Results Test Collection Date/Time Result Date/Time Result Interpretation Reference Range Result Comment Performing Site Activated Partial Thromboplast Time September 20, 2025 12:20pm September 20, 2025 12:20pm 36.8 sec Above high normal 22.3-36.2 Prothromb Time International RatioOct2024 12:20pmOctmarcum and wallace memorial hospital 2024 12:20pm1.14DESIRED INR:2.0-3.0 CONDITIONS NOT LISTED BELOW2.5-3.5 FOR PROSTHETIC HEART VALVE REPLACEMENT2.5-3.5 RECURRENT THROMBOSISBasophils # (Auto)September 20, 2025 12:20pmOctmarcum and wallace memorial hospital 2024 12:20pm0.0 10 3/uL0.0-0.1Anion GapAugmarcum and wallace memorial hospital 2024 12:20pmOctmarcum and wallace memorial hospital 2024 12:20pm11.2Prothrombin TimeRehabilitation Institute Of [facility] 2024 12:20pmOctmarcum and wallace memorial hospital 2024 12:20pm11.9 secAbove high normal9.0-11.6Basophils (%) (Auto)September 20, 2025 12:20pmOctober 2024 12:20pm0.6 %0.2-2.0 BUN/Creatinine RatioOct2024 12:20pmOctober 2024 12:20pm17.1 Eosinophils # (Auto)September 20, 2025 12:20pmOctober 2024 12:20pm0.3 10 3/uL0.0-0.7Blood Urea NitrogenOct2024 12:20pmOctober 2024 12:20pm22.0 mg/dLAbove high normal7.0-18.0Eosinophils (%) (Auto)September 20, 2025 12:20pmOctober 2024 12:20pm5.0 %0.9-7.0Calcium LevelOctober 2024 12:20pmOctober 2024 12:20pm9.0 mg/dL8.5-10.1HematocritOct2024 12:20pmOctober 2024 12:20pm40.0 %Below low kfemgz37.0-54.0Chloride LevelOct2024 12:20pmOctober 2024 12:44bk237 mmol/L98-107 HemoglobinOct2024 12:20pmOctober 2024 12:20pm13.4 g/dLBelow low .0-18.0Carbon Dioxide LevelOct2024 12:20pmOctober 2024 12:20pm29.9 mmol/L21.0-32.0Immature Granulocyte # (Auto)September 20, 2025 12:20pmOctober 2024 12:20pm0.01 10 3/uL0.00-0.03CreatinineOct2024 12:20pmOctober 2024 12:20pm1.29 mg/dL0.70-1.30Immature Granulocyte % (Auto)September 20, 2025 12:20pmOctober 2024 12:20pm0.2 %0.0-0.5Estimated GFR ()September 20, 2025 12:20pmOctober 2024 12:20pm>60 >=60 mL/min/1.73m 2Lymphocytes # (Auto)September 20, 2025 12:20pmOctober 2024 12:20pm1.6 10 3/uL1.2-3.8Estimated GFR (Non- AmericanOct2024 12:20pmOct2024 12:41ab74Vrmge low normal>=60 mL/min/1.73m 2 Lymphocytes (%) (Auto)September 20, 2025 12:20pmOctober 2024 12:20pm24.9 % 20.5-60.0Glucose LevelOct2024 12:20pmOctober 2024 12:20pm94 mg/gA68-094Owdh Corpuscular HemoglobinOct2024 12:20pmOctober 2024 12:20pm30.5 pg25.9-34.0Potassium LevelOct2024 12:20pmOctober 2024 12:20pm4.1 mmol/L3.5-5.1Mean Corpuscular Hemoglobin ConcentOct2024 12:20pmOctober 2024 12:20pm33.5 g/dL29.9-35.2Sodium Level September 20, 2025 12:20pmOct2024 12:07gq337 mmol/O727-340Pgpo Corpuscular VolumeOct2024 12:20pmOctober 2024 12:20pm90.9 fL 80.0-94.0Monocytes # (Auto)September 20, 2025 12:20pmOctober 2024 12:20pm 0.5 10 3/uL0.3-0.8Monocytes (%) (Auto)September 20, 2025 12:20pmOctober 2024 12:20pm7.2 %1.7-12.0Mean Platelet VolumeOct2024 12:20pmOctober 2024 12:20pm10.7 fL9.5-13.5Neutrophils # (Auto)September 20, 2025 12:20pm September 20, 2025 12:20pm4.1 10 3/uL1.4-6.5Neutrophils (%) (Auto)September 20, 2025 12:20pmOctober 2024 12:20pm62.1 %43.0-75.0Platelet CountOctmarcum and wallace memorial hospital 2024 12:20pmOctober 2024 12:95tt478 10 3/bQ126-128Adk Blood CountOctober 2024 12:20pmOctober 2024 12:20pm4.40 10 6/uLBelow low normal 4.70-6.10Red Cell Distribution WidthOctmarcum and wallace memorial hospital 2024 12:20pmOctmarcum and wallace memorial hospital 2024 12:20pm12.9 %11.0-15.0Corrected White Blood CountOctmarcum and wallace memorial hospital 2024 12:20pm September 20, 2025 12:20pm6.6 10 3/uL4.0-11.0 Microbiology Results Procedure Source Result Collection Date/Time Result Date/Time Result Comment Performing Site Aerobic Culture Other (See Comment) Pasteurella species September 17, 2025 7:10pm September 29, 2025 6:43am [facility] [id number] [address] [facility] [address]Lbrtkfela CultureOther (See Comment)No Anaerobes Isolated 3 DaysOctmarcum and wallace memorial hospital 2024 7:10pmOctmarcum and wallace memorial hospital 2024 9:10amOhio[facility] [id number] [address] [facility] [address]Okzn StainOther (See Comment)September 17, 2025 7:10pmOctmarcum and wallace memorial hospital 2024 12:54pmOhiohealth [facility] [id number] [address] [facility] [address] Vital Signs Vital Reading Result Reference Range Collection Date/Time Height 74 [in_i] September 17, 2025 1:74tkGhyfsi843.74 kgOctober 2024 1:52pmBody Opeaqpfuvff43.5 [degF]97.6-99.0Oct2024 1:52pmHeart Rate56 /iqo20-676 September 17, 2025 1:52pmRespiratory rate18 /tzr60-18Hqaxkqp 24th, 2025 1:52pm Oxygen saturation by Pulse nhmijpal60 %95-100Oct2024 1:52pmBP Vqejqomn990 mm[Hg]100-140September 17, 2025 1:52pmBP Zrprwiict77 mm[Hg]60-100 September 17, 2025 1:52pmBMI (Body Mass Index)33.0 kg/j0Nmynagh2024 1:58czHgilcw40 [in_i]September 29, 2025 1:23rdTfhmiq274.39 kgNov2024 1:47pmBody Qjbkturtilt49.1 [degF]97.6-99.0September 29, 2025 1:47pmHeart Rate70 /swn03-889RetjisakSeptember 29, 2025 1:47pmRespiratory rate20 /lnv23-06YseunjqhSeptember 29, 2025 1:47pmOxygen saturation by Pulse ybziwcfs42 %95-100September 29, 2025 1:47pmBP Eiwxqnfz625 mm[Hg]100-140Nov2024 1:47pmBP Ujyocbbud34 mm[Hg] 60-100Nov2024 1:47pmBMI (Body Mass Index)32.1 kg/n0Xmxjhtbf2024 1:47pm Advance Directives Advance Directive Response Recorded Date/ Time Advance Directives No May 31 7:07am Insurance Providers Guarantor Oscar Hines Mcmaster Address [address] [place] [id number] Info.Home Phone: Coverage Status Update:2025 Payer Group Member ID Coverage Type Subscriber Relationship to Subscriber Effective Date Expiration Date MMO MMO Id: [id number] [facility] PFF[facility] Retired Id: [id number] A [facility] Id: [id number] [address] [place] [address] Home Phone: Email: [email or web address] [facility] PFFS Non Pt [id number] A [facility] Id: [id number] [facility] [address] [address] Home Phone: Email: [email or web address] Encounters Encounter Location(s) Arrival/Admit Date Discharge/Departure Date Discharge/Departure Disposition Provider(s) Departed Physician/ Provider Office Visit -[facility] [place] September 17, 2025 2:36pm September 17, 2025 3:33pm Discharged to home care or self care (routine discharge) Isamar avery APRN Departed Referred -[facility] September 17, 2025 7:10pm September 17, 2025 7:11pm Discharged to home care or self care (routine discharge) Isamar avery APRN Non-patient / Non-visit -[facility] O ctober 2024 1:20pm JOSE Wassermaneparted Physician/Provider Office Visit-[facility] Family Medicine [facility]2024 1:35pmNov2024 2:24pmDischarged to home care or self care (routine discharge)North Gomes MD Recent Diagnosis Onset Date Admit Date Encounter for wound care Unknown September 17, 2025 2:36pm Paroxysmal atrial fibrillation Unknown N ov2024 1:35pm Primary osteoarthritis of left hip Unknown September 29, 2025 1:35pm Restless leg syndrome Unknown September 292024 1:35pm Spondylosis of lumbar region without myelopathy or radiculopathy Unknown September 29, 2025 1:35pm Assessments Diagnosis Onset Date Resolution Status Admit Date Encounter for wound care noneactiveOctober 2024 2:36pmParoxysmal atrial fibrillationacuteSeptember 29, 2025 1:35pmPrimary osteoarthritis of left hipacuteSeptember 29, 2025 1:35pm Restless leg syndromeacuteNov2024 1:35pmSpondylosis of lumbar region without myelopathy or radiculopathyacuteNovember 2024 1:35pm Plan of Treatment Author Isamar Dominguez [facility] NorthAuthoredOctober 2024 4:01pm75 year old male here for referral consult to wound care. Pt injured posterior left knee on dog's spiked collar 09/06 and was seen in ER for 9 stitches and Keflex. states he developed some seeping and smelly odor from the wound while on vacation in [place] and went to ER for assessment and [...] scheduled test information is unavailable Pending Tests Pending diagnostic test information is unavailable Future Visits Future appointment information is unavailable Future Procedures Future procedure information is unavailable Future Medications Future medication information is unavailable Patient Instructions Patient instructions are unavailable
[2025-09-30] VITALS (13 sets, daily range): BP systolic 99–136; BP diastolic 49–74; PULSE 49–69; TEMP 35.9–36.6; O2SAT 92–98; BMI 31.5
--- OUTSIDE RECORDS SUMMARY | 2025-09-30 11:11 | XMS_ITS | Clinical Summary ---
Author Organization [facility] Address [address] [place] [address] Care Team Providers Care Flying Ii Instructor Name Role Phone Unavailable Primary Care Provider Unavailabl e Encounters DateTypeDepartmentCare PimwUzhaxrchqdy88/28/2025Lab Requisition [facility] [address] [place] [address] Provider, Wendi, RAMON from Last 3 Months Social History Tobacco UseTypesPacks/DayYears UsedDateSmoking Tobacco: Never AssessedSex and Gender InformationValueDate RecordedSex Assigned at BirthNot on fileLegal Sex Male10/26/2012 9:48 AM ESTGender IdentityNot on fileSexual OrientationNot on file Plan of Treatment Not on file Procedures Procedure NamePriorityDate/TimeAssociated DiagnosisCommentsORGANISM ID AEROBE Tlqeeny4209/17/2025 7:10 PM EDT VARIABLE LIBCTFXQehzdln71/24/2025 7:10 PM EDTANTIMICROBIAL SUSCEPT-FASTIDIOUS WOGJCKHYRxiotpv07/24/2025 7:10 PM EDT ORGANISM UJAChhxpbx82/24/2025 7:10 PM EDTfrom Last 3 Months Results * VARIABLE BILLING (09/17/2025 7:10 PM EDT)Specimen (Source)Anatomical Location / LateralityCollection Method / VolumeCollection TimeReceived TimeOrganism IsolateSPECIMEN FROM WOUND / Njewjwh8709/17/2025 7:10 PM EDT1 3:00 AM EDT Narrative Authorizing ProviderResult TypeResult StatusExternal Provider PA-CLABORATORY Final ResultPerforming OrganizationAddressCity/State/ZIP CodePhone Number [employer] [address] [place] [address] * (ABNORMAL) ANTIMICROBIAL SUSCEPT-FASTIDIOUS ORGANISM (09/17/2025 7:10 PM EDT) ComponentValueRef RangeTest MethodAnalysis TimePerformed AtPathologist SignatureFinal ReportSEE NOTE(A)09/27/2025 4:51 PM [facility] Comment: Pasteurella species Organism identified by client INTERPRETIVE INFORMATION: Fastidious Organism Susceptibility Units = ug/mL Susceptibility testing is performed by CLSI-approved broth microdilution method using custom-made DEXTER panels. JULIANNA M Beta-Lactamase ? Neg DEXTER Azithromycin ?0.25 Suscept Levofloxacin <=0.06 Suscept Penicillin ?0.12 Suscept Trimethoprim/Sulfamethoxazole <=.12/2.4 Suscept Ampicillin <=0.12 Suscept Tetracycline <=1 Suscept Performed By: [employer] [address] [place] [id number] Vegetable Trimmer: Lazaro Rosenbaum MD, PhD CLIA Number: [id number] Specimen (Source)Anatomical Location / LateralityCollection Method / Volume Collection TimeReceived TimeOrganism IsolateSPECIMEN FROM WOUND / Unknown 09/17/2025 7:10 PM EDT1 3:00 AM EDT Narrative Authorizing ProviderResult TypeResult StatusExternal Provider PA-CLABORATORY Final ResultPerforming OrganizationAddressCity/State/ZIP CodePhone Number [employer] [address] [place] [address] * (ABNORMAL) ORGANISM ID AEROBE (09/17/2025 7:10 PM EDT)ComponentValueRef Range Test MethodAnalysis TimePerformed AtPathologist SignatureCulture, Organism ID AerobePasteurella species(A)09/22/2025 10:03 AM [facility]TC[facility] Comment:Pasteurella stomatisBeta LswygfftuItynfiev85/ 10:03 AM EDT [facility] LABSpecimen (Source)Anatomical Location / Laterality Collection Method / VolumeCollection TimeReceived TimeOrganism IsolateSPECIMEN FROM WOUND / Jtawjwj5409/17/2025 7:10 PM EDT1 3:00 AM EDT Narrative [facility] - 09/22/2025 10:03 AM EDT This test was developed and its performance characteristics determined by the [facility]'s [facility] [place] ([facility]). It has not been cleared or approved by the FDA. [facility] is regulated under CLIA as qualified to perform high-complexity testing. This test is used for clinical purposes. It should not be regarded as investigational or for research. Authorizing ProviderResult TypeResult StatusExternal Provider PA-CMICROBIOLOGY Final ResultPerforming OrganizationAddressCity/State/ZIP CodePhone Number [facility] [address] [place] [address], from Last 3 Months Insurance
--- OUTSIDE RECORDS SUMMARY | 2025-09-30 11:11 | XMS_ITS | Encounter Summary ---
Author Organization [facility] tem Address [facility] [id number] [address] [place] [address] Care Team Providers Care Forming Machine Tender Name Role Phone North Gomes MD Primary Care Provider [phone] Encounter Details DateTypeDepartmentCare Team (Latest Contact Info)Gxfwfgyfxej35/28/2025Travel Social History Tobacco UseTypesPacks/DayYears UsedDateSmoking Tobacco: NeverSmokeless Tobacco: NeverAlcohol UseStandard Drinks/WeekCommentsYes0 (1 standard drink = 0.6 oz pure alcohol)One drink per weekChildcareAnswerDate AijtcinvEhscyhcucZevpqtu74/12/2019 EmploymentAnswerDate FsoqqwylXtoipqanjrTmoyvsv85/12/2019Hunger ScreeningAnswer Date RecordedWithin the past 12 months we worried whether our food would run out before we got money to buy more.Never True09/21/2025Within the past 12 months the food we bought just didn't last and we didn't have money to get more.Never True09/21/2025Purpose - LifeAnswerDate RecordedPurpose and direction in life Sysftsx3501/05/2021ex and Gender InformationValueDate RecordedSex Assigned at VwzbzUown21/17/2020 1:17 PM ESTLegal YjgWbrt8106/30/2015 11:47 AM EDTGender DfwguvvnOhse69/17/2020 1:17 PM ESTSexual OupsdpsgswqOhkgvmhf79/17/2020 1:17 PM ESTdocumented as of this encounter Plan of Treatment DateTypeDepartmentCare Team (Latest Contact Info)Bcpthfpvbog24/11/2025 11:00 AM ESTOffice Visit [facility] [address] [id number] Adri Núñez, ADMINISTRATIVE OFFICER-FAITH DOCTOR [address] [place] [address] 12/06/2025 9:00 AM ESTOffice Visit [facility] [address] [place] [phone] Schuyler Ambrocio MD [address] [facility] [place] [address] documented as of this encounter Goals GoalPatient Goal TypeAssociated ProblemsRecent ProgressPatient-Stated?Author Improve mobility Poly Gray, RN Note: Evaluation of progress towards goal: Maximize work with PT at discharge to strengthen R hip documented as of this encounter Visit Diagnoses Not on filedocumented in this encounter Care Teams Team MemberRelationshipSpecialtyStart DateEnd Date North Gomes MD PCP - GeneralFamily Tdxdvmpj78/13/24documented as of this encounter
--- OUTSIDE RECORDS SUMMARY | 2025-09-30 11:11 | XMS_ITS | Encounter Summary ---
Author Organization [facility] Address [address] [facility], [place] [address] Care Team Providers Care Skill Training Program Coordinator Name Role Phone North Gomes MD Primary Care Provider [phone] North Gomes MD Unavailable Encounter Details DateTypeDepartmentCare Team (Latest Contact Info)Ngybnjcafgn04/24/2025Clinisync Result Encounter [facility] External Department Unsolicited Provider, Generic External Data Social History Tobacco UseTypesPacks/DayYears UsedDateSmoking Tobacco: NeverSmokeless Tobacco: NeverAlcohol UseStandard Drinks/WeekCommentsNot Currently0 (1 standard drink = 0.6 oz pure alcohol)caffeine 1-2 cups per daySocial Connection and Isolation PanelAnswerDate RecordedIn a typical week, how many times do you talk on the phone with family, friends, or neighbors?Once a week02/03/2024How often do you get together with friends or relatives?Once a week02/03/2024How often do you attend taoist or voodoo services?More than 4 times per year4Do you belong to any clubs or organizations such as taoist groups, unions, fraternal or athletic groups, or school groups?Yes02/03/2024How often do you attend meetings of the clubs or organizations you belong to?More than 4 times per year02/03/2024 Are you , , , , never , or living with a partner?Sysmhwi55/11/2024AUDIT-CAnswerDate RecordedQ1: How often do you have a [...] heating?Not hard at all02/03/2024HQ-2AnswerDate RecordedPatient Health Questionnaire-2 Wpoug653FinSt. [facility] of Occupational Health - Occupational Stress QuestionnaireAnswerDate [...] steady place to sleep or slept in [place] (including now)?No 02/03/2024Sex and Gender InformationValueDate RecordedSex Assigned at BirthNot on fileLegal PopYfhf1902/06/2023 7:14 PM EDTGender IdentityNot on fileSexual OrientationNot on filedocumented as of this encounter Functional Status * Over the past 2 weeks, how often have you been bothered by any of the following problems?QuestionAnswerDate of AssessmentAuthorLittle interest or pleasure in doing thingsNot at all03/29/2025 2:00 PM Abiola Addison MA Feeling down, depressed, or hopelessNot at all03/29/2025 2:00 PM Abiola Addison MAPatient Health Questionnaire-2 Ocrfq515 2:00 PM Abiola Addison MA * QuestionAnswerDate of AssessmentAuthorTrouble falling or staying asleep, or sleeping too muchSeveral days03/29/2025 2:00 PM Abiola Addison MAFeeling tired or having little energySeveral days03/29/2025 2:00 PM Abiola Addison MAPoor appetite or overeatingSeveral days03/29/2025 2:00 PM Abiola Addison MAFeeling bad about yourself - or that you are a failure or have let yourself or your family downNot at all03/29/2025 2:00 PM Abiola Addison MATrouble concentrating on things, such as reading the newspaper or watching television Not at all03/29/2025 2:00 PM Abiola Addison MAMoving or speaking so slowly that other people could have noticed? Or the opposite - being so fidgety or restless that you have been moving around a lot more than usual.Not at all 03/29/2025 2:00 PM Abiola Addison MAThoughts that you would be better off or hurting yourself in some wayNot at all03/29/2025 2:00 PM Abiola Addison MAPatient Health Questionnaire-9 Mzjoh884 2:00 PM Abiola Addison MA documented as of this encounter Plan of Treatment DateTypeDepartmentCare Team (Latest Contact Info)Vpidivllyby89/05/2026 1:45 PM EDTOffice Visit [facility] [place] [facility] [address] [place] [address] Miriam Carpenter MD [address] [place] [address] documented as of this encounter Procedures Procedure NamePriorityDate/TimeAssociated DiagnosisCommentsMR KNEE LT WO CON 12/18/2024 5:01 PM EST documented in this encounter Results * MR KNEE LT WO CON (12/18/2024 5:01 PM EST)Anatomical RegionLateralityModality OtherSpecimen (Source)Anatomical Location / LateralityCollection Method / VolumeCollection TimeReceived Time12/18/2024 5:01 PM EST Narrative 12/18/2024 5:03 PM EST [facility] ?[address] ? [place] [address] ? Magnetic Resonance Report ? Signed ? Patient: KAVITA AUSTIN ?MR#: [id number] ?? : 1950 ?Acct:[id number] ?? Age/Sex: 74 / M ?ADM Date: 12/18/24 ?? Loc: MRI ? Attending Dr: ANDREW VERONICA SUGAR HOUSE SUPERVISOR ? Ordering Physician: ANDREW VERONICA NP ?? Date of Service: 12/18/24 ?? Procedure(s): MR knee LT wo con ?? Accession Number(s): [id number] ? cc: ANDREW VERONICA NP; North Gomes M.D. ? [facility] ? [address] ? [place] [address] ? Patient Name: ?? KAVITA AUSTIN ? MRN: TBH:[id number] ? date: 1950 ?Sex: M ?? Assigned Patient Location: MRI ?? Current Patient Location: MRI ?? Accession/Order Number: [id number] ?? Exam Date: 12/18/2024 ??13:05 ?Report Date: 12/18/2024 ??17:01 ? At the request of: ?? ANDREW VERONICA ? Procedure: ??MR knee LT wo con ? EXAM: MR knee LT wo con ? HISTORY: Internal Derangement Left Knee ? COMPARISON: None. ? TECHNIQUE: MRI images obtained with multiple sequences. MRI of the left knee ?? without contrast. Sequences obtained by standard department protocol. ? FINDINGS: ? Anterior cruciate and posterior cruciate ligaments are intact. ? Medial collateral ligament and lateral supporting structures are intact. ? Medial meniscus is intact. Full-thickness chondral loss of the medial femoral ?? condyle measuring 1.4 x 1.7 cm (8001/16). ? Complex tearing of the lateral meniscal body (8001/18). Lateral compartment ?? articular cartilage is preserved. ? High-grade chondral loss of the patellar articular cartilage. Trochlear ?? articular cartilage is preserved. ? Extensor mechanism is intact. ? Moderate popliteal cyst. ? Prepatellar subcutaneous soft tissue edema. ? No acute fractures. ? MR/MR knee LT wo con ?? IMPRESSION: ? 1. Complex tearing of the lateral meniscal body (8001/18). ? 2. Full-thickness chondral loss of the medial femoral condyle measuring 1.4 x ?? 1.7 cm (8001/16). ? 3. High-grade chondral loss of the patellar articular cartilage ? 4. Prepatellar subcutaneous soft tissue edema. ? 5. No acute fractures. ? Electronically authenticated by: BRADLEY ??MANUEL ?? Date: 12/18/2024 ??17:01 ? Dictated By: ?Bradley Hassan M.D. ? Signed By: ?12/18/24 1703 ? DD/ 1701 ? TD/TT: ? Yard Truck Driver: Procedure Note Radiology, Radiologist, MD - 12/18/2024 [place] [address] Magnetic Resonance Report Signed Patient: KAVITA AUSTIN AMR#: [id number] : 2Acct:[id number] Age/Sex: 74 / MADM Date: 12/18/24 Loc: MRI Attending Dr: ANDREW VERONICA SUGAR HOUSE SUPERVISOR Ordering Physician: ANDREW VERONICA NP Date of Service: 12/18/24 Procedure(s): MR knee LT wo con Accession Number(s): [id number] cc: ANDREW VERONICA SUGAR HOUSE SUPERVISOR; North Gomes M.D. [place] [address] Patient Name: KAVITA AUSTIN MRN: [facility]:[id number] date: 1950 Sex: M Assigned Patient Location: MRI Current Patient Location: MRI Accession/Order Number: [id number] Exam Date: 12/18/2024 13:05 Report Date: 12/18/2024 17:01 At the request of: ANDREW VERONICA Procedure: MR knee LT wo con EXAM: [...] Hassan M.D. Signed By:12/18/241702 DD/ 00 TD/TT: Yard Truck Driver: Authorizing ProviderResult TypeResult StatusGeneric External Data Provider CLINISYNC IMAGINGFinal Result documented in this encounter Visit Diagnoses Not on filedocumented in this encounter Care Teams Team MemberRelationshipSpecialtyStart DateEnd Date North Gomes MD [facility] - [facility] North Gomes MD [address] [place] [address] PCP - [facility]02/24/24documented as of this encounter
--- OUTSIDE RECORDS SUMMARY | 2025-09-30 11:11 | XMS_ITS | Encounter Summary ---
Author Organization [facility] Address [address] [place] [address] Care Team Providers Care Cigarette Machine Filler Name Role Phone North Gomes MD Primary Care Provider [phone] North Gomes MD Unavailable Encounter Details DateTypeDepartmentCare Team (Latest Contact Info)Obbiauvqkpv91/12/2024Clinisync Result Encounter [facility] External Department Unsolicited Provider, [...] relatives?Once a week02/03/2024How often do you attend pentecostalism or jain services?More than 4 times per year4Do you belong to any clubs or organizations such as pentecostalism groups, unions, fraternal or athletic groups, or school groups?Yes02/03/2024How often do you attend meetings of the clubs or organizations you belong to?More than 4 times per year02/03/2024 Are you , , , , never , or living with a partner?Pjnfxxp78/11/2024AUDIT-CAnswerDate RecordedQ1: How often do you have a [...] heating?Not hard at all02/03/2024HQ-2AnswerDate RecordedPatient Health Questionnaire-2 Sojon976FinSt. [facility] of Occupational Health - Occupational Stress QuestionnaireAnswerDate [...] steady place to sleep or slept in [place] (including now)?No 02/03/2024Sex and Gender InformationValueDate RecordedSex Assigned at BirthNot on fileLegal IseSood7702/06/2023 7:14 PM EDTGender IdentityNot on fileSexual OrientationNot on filedocumented as of this encounter Functional Status * Over the past 2 weeks, how often have you been bothered by any of the following problems?QuestionAnswerDate of AssessmentAuthorLittle interest or pleasure in doing thingsNot at all03/29/2025 2:00 PM Abiola Addison MA Feeling down, depressed, or hopelessNot at all03/29/2025 2:00 PM Abiola Addison MAPatient Health Questionnaire-2 Hzuay403 2:00 PM Abiola Addison MA * QuestionAnswerDate [...] 2:00 PM Abiola Addison MAPatient Health Questionnaire-9 Pojoh979 2:00 PM Abiola Addison MA documented as of this encounter Plan of Treatment DateTypeDepartmentCare Team (Latest Contact Info)Jhcqkdmafaz02/05/2026 1:45 PM EDTOffice Visit [facility] [address] [place] [address] Miriam Carpenter MD [address] [place] [address] documented as of this encounter Procedures Procedure NamePriorityDate/TimeAssociated DiagnosisCommentsXR FOOT LT MIN 3V 05/06/2024 3:49 PM EDT documented in this encounter Results * XR FOOT LT MIN 3V (05/06/2024 3:49 PM EDT)Anatomical RegionLateralityModality OtherSpecimen (Source)Anatomical Location / LateralityCollection Method / VolumeCollection TimeReceived Time05/06/2024 3:49 PM EDT Narrative 05/06/2024 3:52 PM EDT [facility] ?[address] ? [place] [address] ?XRay Report ? Signed ? Patient: KAVITA AUSTIN ?MR#: [id number] ?? : 1950 ?Acct:[id number] ?? Age/Sex: 74 / M ?ADM Date: 05/06/24 ?? Loc: EC ? Attending Dr: Barbie Alcala D.P.M. ? Ordering Physician: Barbie Alcala D.P.M. ?? Date of Service: 05/06/24 ?? Procedure(s): XR foot LT min 3V ?? Accession Number(s): [id number] ? cc: Barbie Alcala D.P.M.; North Gomes M.D. ? [facility] ? [address] ? [place] [address] ? Patient Name: ?? KAVITA AUSTIN ? MRN: [id number]:[id number] ? date: 1950 ?Sex: M ?? Assigned Patient Location: EC ?? Current Patient Location: EC ?? Accession/Order Number: [id number] ?? Exam Date: 05/06/2024 ??13:53 ?Report Date: 05/06/2024 ??15:49 ? At the request of: ?? BARBIE ??AJITH ? Procedure: ??XR foot LT min 3V ? PROCEDURE: XR foot LT min 3V ? COMPARISON: 02/06/2024 ? HISTORY: LEFT FOOT PAIN ? FINDINGS: ?? BONES:Stable first metatarsal-phalangeal joint fusion with a dorsal plate and ?? multiple screws. Remote osteotomy and screw placement at of the second ?? metatarsal. Remote resection head of the second proximal phalanx. No acute ?? fracture, dislocation or mechanical failure. Mild degenerative changes with ?? marginal osteophyte from admission most significant in the midfoot ?? SOFT TISSUES:Negative. No visible soft tissue swelling. ?? EFFUSION:None visible. ?? OTHER: Negative. ? XR/XR foot LT min 3V ?? IMPRESSION: ? Stable postsurgical and degenerative changes ? Electronically authenticated by: MARÍA ??BRAYDON ?? Date: 05/06/2024 ??15:49 ? Dictated By: ?María Bryson M.D. ? Signed By: ?05/06/24 1552 ? DD/ 1549 ? TD/TT: ? Vocational Services Specialist: Procedure Note Radiology, Radiologist, - 05/06/2024 [place] [address] XRay Report Signed Patient: KAVITA AUSTIN AMR#: [id number] : 1950cct:[id number] Age/Sex: 74 / MADM Date: 05/06/24 Loc: EC Attending Dr: Barbie Alcala D.P.M. Ordering Physician: Barbie Alcala D.P.M. Date of Service: 05/06/24 Procedure(s): XR foot LT min 3V Accession Number(s): [id number] cc: Barbie Alcala D.P.M.; North Gomes M.D. The [address] [address] Patient Name: KAVITA AUSTIN MRN: [id number] date: 1950 Sex: M Assigned Patient Location: EC Current Patient Location: EC Accession/Order Number: [id number] Exam Date: 05/06/2024 13:53 Report Date: 05/06/2024 [...] M.D. Signed By:05/06/24 1552 DD/ 1549 TD/TT: Vocational Services Specialist: Authorizing ProviderResult TypeResult StatusGeneric External Data Provider CLINISYNC IMAGINGFinal Result documented in this encounter Visit Diagnoses Not on filedocumented in this encounter Care Teams Team MemberRelationshipSpecialtyStart DateEnd Date North Gomes MD PCP - GeneralFavtly Medicine02/04/24 North Gomes MD [address] [place] [address] PCP - Aet02/24/24documented as of this encounter
--- OUTSIDE RECORDS SUMMARY | 2025-09-30 11:11 | XMS_ITS | Encounter Summary ---
Author Organization [facility] Address [address] [facility] [place] [address] Care Team Providers Care Bead Filler Name Role Phone North Chapin MD Primary Care Provider [phone] North Chapin MD Unavailable Encounter Details DateTypeDepartmentCare Team (Latest Contact Info)Lfjnljbaqxa32/09/2024Clinisync Result Encounter [facility] External Department Unsolicited North Chapin MD [address] [place] [address] Social History Tobacco UseTypesPacks/DayYears UsedDateSmoking Tobacco: NeverSmokeless Tobacco: NeverAlcohol UseStandard Drinks/WeekCommentsNot Currently0 (1 standard drink = 0.6 oz pure alcohol)caffeine 1-2 cups per daySocial Connection and Isolation PanelAnswerDate RecordedIn a typical week, how many times do you talk on the phone with family, friends, or neighbors?Once a week02/03/2024How often do you get together with friends or relatives?Once a week02/03/2024How often do you attend anabaptist or scientology services?More than 4 times per year4Do you belong to any clubs or organizations such as anabaptist groups, unions, fraternal or athletic groups, or school groups?Yes02/03/2024How often do you attend meetings of the clubs or organizations you belong to?More than 4 times per year02/03/2024 Are you , , , , never , or living with a partner?Sjphxbn7702/03/2024UDIT-CAnswerDate RecordedQ1: How often do you have a [...] heating?Not hard at all02/03/2024HQ-2AnswerDate RecordedPatient Health Questionnaire-2 Ikdaw213Finencompass [facility] of Occupational Health - Occupational Stress QuestionnaireAnswerDate [...] steady place to sleep or slept in [facility] (including now)?No 02/03/2024Sex and Gender InformationValueDate RecordedSex Assigned at BirthNot on fileLegal OnmQgxw1502/06/2023 7:14 PM EDTGender IdentityNot on fileSexual OrientationNot on filedocumented as of this encounter Functional Status * Over the past 2 weeks, how often have you been bothered by any of the following problems?QuestionAnswerDate of AssessmentAuthorLittle interest or pleasure in doing thingsNot at all03/29/2025 2:00 PM Abiola Addison MA Feeling down, depressed, or hopelessNot at all03/29/2025 2:00 PM Abiola Addison MAPatient Health Questionnaire-2 Ldjng789 2:00 PM Abiola Addison MA * QuestionAnswerDate [...] television Not at all03/29/2025 2:00 PM Abiola Addison, MAMoving or speaking so slowly that other people could have noticed? Or the opposite - being so fidgety or restless that you have been moving around a lot more than usual.Not at all 03/29/2025 2:00 PM Abiola Addison MAThoughts that you would be better off or hurting yourself in some wayNot at all03/29/2025 2:00 PM Abiola Addison MAPatieast liverpool [facility] Health Questionnaire-9 Baflt049 2:00 PM Abiola Addison MA documented as of this encounter Plan of Treatment DateTypeDepartmentCare Team (Latest Contact Info)Thlyqqvpqwc64/05/2026 1:45 PM EDTOffice Visit [facility] [address] [place] [address] Miriam Carpenter MD [address] [place] [address] documented as of this encounter Procedures Procedure NamePriorityDate/TimeAssociated DiagnosisCommentsMR HEAD/BRAIN WO CON 03/03/2024 1:02 PM EDT documented in this encounter Results * MR HEAD/BRAIN WO CON (03/03/2024 1:02 PM EDT)Anatomical RegionLaterality ModalityOtherSpecimen (Source)Anatomical Location / LateralityCollection Method / VolumeCollection TimeReceived Time03/03/2024 1:02 PM EDT Narrative 03/03/2024 1:05 PM EDT [facility] ?[address] ? [place] [address] ? Magnetic Resonance Report ? Signed ? Patient: KAVITA AUSTIN ?MR#: [id number] ?? : 1950 ?Acct:[id number] ?? Age/Sex: 73 / M ?ADM Date: 03/03/24 ?? Loc: MRI ? Attending Dr: North Chapin M.D. ? Ordering Physician: North Chapin M.D. ?? Date of Service: 03/03/24 ?? Procedure(s): MR head/brain wo con ?? Accession Number(s): [id number] ? cc: North Chapin M.D. ? [facility] ? [address] ? [place] [address] ? Patient Name: ?? KAVITA AUSTIN ? MRN: [id number] ? date: 1950 ?Sex: M ?? Assigned Patient Location: MRI ?? Current Patient Location: MRI ?? Accession/Order Number: [id number] ?? Exam Date: 03/03/2024 ??08:45 ?Report Date: 03/03/2024 ??13:02 ? At the request of: ?? NORTH ??NADERER ? Procedure: ??MR head/brain wo con ? EXAM: MR head/brain wo con ? 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 COMPARISON: None. ? TECHNIQUE: Multi-planar, multi-sequence brain MRI was performed without IV ?? contrast. ? FINDINGS: ? Brain volume: Normal. ? Sagittal midline structures: Normal. ? Ventricles: Normal. ? Acute ischemic changes: None. ? Hemorrhage: None. ? Masses/edema: None. ? Griffin-white: Negative. ? White matter: Normal. ? Vessels: Normal. ? Extra-axial: None. ? Calvarium/scalp: Negative. ? Skull base: Negative. ? Visualized sinuses/orbits: Negative. ? Visualized upper neck: Negative. ? MR/MR head/brain wo con ?? IMPRESSION: ?? 1. No evidence of acute ischemia or neurodegenerative disease ? Electronically authenticated by: TARIQ ??ENRRIQUE ?? Date: 03/03/2024 ??13:02 ? Dictated By: ?Tariq Noyola M.D. ? Signed By: ?03/03/24 1305 ? DD/ 1302 ? TD/TT: ? Pillowcase Cleaner: Procedure Note Radiology, Radiologist, - 03/03/2024 [place] [address] Magnetic Resonance Report Signed Patient: KAVITA AUSTIN AMR#: [id number] : 1950cct:[id number] Age/Sex: 73 / MADM Date: 03/03/24 Loc: MRI Attending Dr: North Chapin M.D. Ordering Physician: North Chapin M.D. Date of Service: 03/03/24 Procedure(s): MR head/brain wo con Accession Number(s): [id number] cc: North Chapin M.D. The [address] [address] Patient Name: KAVITA AUSTIN MRN: [id number] date: 1950 Sex: M Assigned Patient Location: MRI Current Patient Location: MRI Accession/Order Number: [id number] Exam Date: 03/03/2024 08:45 Report Date: 03/03/2024 13:02 At the request of: NORTH CHAPIN Procedure: MR head/brain wo con EXAM: [...] 13:02 Dictated By: Tariq Noyola M.D. Signed By:03/03/24 1305 DD/ 1302 TD/TT: Pillowcase Cleaner: Authorizing ProviderResult TypeResult StatusMarc Mireya MDCLINISYNC IMAGING Final Result documented in this encounter Visit Diagnoses Not on filedocumented in this encounter Care Teams Team MemberRelationshipSpecialtyStart DateEnd Date North Chapin MD PCP - GeneralFamily Medicine02/04/24 North Chapin MD [address] [place] [address] PCP - [employer]02/24/24documented as of this encounter
--- OUTSIDE RECORDS SUMMARY | 2025-09-30 11:11 | XMS_ITS | Encounter Summary ---
Author Organization [facility] Address [address] [place] [address] Care Team Providers Care Briquette Operator Name Role Phone North Gomes MD Primary Care Provider [phone] North Gomes MD Unavailable Encounter Details DateTypeDepartmentCare Team (Latest Contact Info)Oaqosztrxfc53/04/2025amboo flowsheet [facility] [address] [facility] [address] [place] [address] Miriam Carpenter MD [address] [facility] [address] [place] [address] Social History Tobacco UseTypesPacks/DayYears UsedDateSmoking Tobacco: NeverSmokeless Tobacco: NeverAlcohol UseStandard Drinks/WeekCommentsNot Currently0 (1 standard drink = 0.6 oz pure alcohol)caffeine 1-2 cups per daySocial Connection and Isolation PanelAnswerDate RecordedIn a typical week, how many times do you talk on the phone with family, friends, or neighbors?Once a week02/03/2024How often do you get together with friends or relatives?Once a week02/03/2024How often do you attend religious or episcopalian services?More than 4 times per year4Do you belong to any clubs or organizations such as religious groups, unions, fraternal or athletic groups, or school groups?Yes02/03/2024How often do you attend meetings of the clubs or organizations you belong to?More than 4 times per year02/03/2024 Are you , , , , never , or living with a partner?Wmarepp1802/03/2024UDIT-CAnswerDate RecordedQ1: How often do you have a [...] heating?Not hard at all02/03/2024HQ-2AnswerDate RecordedPatient Health Questionnaire-2 Guxfr043[facility] [place] of [facility]ational Health - Occupational Stress QuestionnaireAnswerDate [...] InformationValueDate RecordedSex Assigned at BirthNot on fileLegal TvxRbyo0802/06/2023 7:14 PM EDTGender IdentityNot on fileSexual OrientationNot on filedocumented as of this encounter Plan of Treatment DateTypeDepartmentCare Team (Latest Contact Info)Hqhvvpmogch06/05/2026 1:45 PM EDTOffice Visit [facility] [address] [place] [address] Miriam Carpenter MD [address] [place] [address] documented as of this encounter Visit Diagnoses Not on filedocumented in this encounter Additional Health Concerns AssessmentNoted TimePHQ-9 Depression Total Score: 2:00 PM EDT documented as of this encounter Care Teams Team MemberRelationshipSpecialtyStart DateEnd Date North Gomes MD PCP - GeneralFamily Medicine02/04/24 North Gomes MD [address] [place] [address] PCP - [employer]02/24/24documented as of this encounter
--- OUTSIDE RECORDS SUMMARY | 2025-09-30 11:11 | XMS_ITS | Encounter Summary ---
Author Organization [facility] Address [address] [place] [address] Care Team Providers Care Patient Care Technician Instructor Name Role Phone North Gomes MD Primary Care Provider [phone] North Gomes MD Unavailable Encounter Details DateTypeDepartmentCare Team (Latest Contact Info)Zaumnresgjt50/04/2025Travel Social History Tobacco UseTypesPacks/DayYears UsedDateSmoking Tobacco: NeverSmokeless Tobacco: NeverAlcohol UseStandard Drinks/WeekCommentsNot Currently0 (1 standard drink = 0.6 oz pure alcohol)caffeine 1-2 cups per daySocial Connection and Isolation PanelAnswerDate RecordedIn a typical week, how many times do you talk on the phone with family, friends, or neighbors?Once a week02/03/2024How often do you get together with friends or relatives?Once a week02/03/2024How often do you attend adventism or mu-ism services?More than 4 times per year4Do you belong to any clubs or organizations such as adventism groups, unions, fraternal or athletic groups, or school groups?Yes02/03/2024How often do you attend meetings of the clubs or organizations you belong to?More than 4 times per year02/03/2024 Are you , , , , never , or living with a partner?Xgdkaza4202/03/2024UDIT-CAnswerDate RecordedQ1: How often do you have a [...] heating?Not hard at all02/03/2024HQ-2AnswerDate RecordedPatient Health Questionnaire-2 Xfico930FinSelect [facility] of Occupational Health - Occupational Stress QuestionnaireAnswerDate [...] steady place to sleep or slept in [place] (including now)?No 02/03/2024Sex and Gender InformationValueDate RecordedSex Assigned at BirthNot on fileLegal CptKwif8602/06/2023 7:14 PM EDTGender IdentityNot on fileSexual OrientationNot on filedocumented as of this encounter Plan of Treatment DateTypeDepartmentCare Team (Latest Contact Info)Jxvfilchbws25/05/2026 1:45 PM EDTOffice Visit [facility] [place] [facility] [address] [place] [phone] Miriam Carpenter MD [address] [place] [address] documented as of this encounter Visit Diagnoses Not on filedocumented in this encounter Additional Health Concerns AssessmentNoted TimePHQ-9 Depression Total Score: 2:00 PM EDT documented as of this encounter Care Teams Team MemberRelationshipSpecialtyStart DateEnd Date North Gomes MD PCP - GeneralFamily Medicine02/04/24 North Gomes MD [address] [place] [address] PCP - [employer]02/24/24documented as of this encounter
--- OUTSIDE RECORDS SUMMARY | 2025-09-30 11:11 | XMS_ITS | Clinical Summary ---
Author Organization [facility] Address [address] [facility] [place] [address] Care Team Providers Care Chocolate Temperer Name Role Phone Jennifer Chapin MD Primary Care Provider [phone] Jennifer Chapin MD Unavailable Allergies No known [...] Take 10 mg by mouth Daily as kivvbtyw05/28/2025Active clindamycin (Cleocin) 300 MG capsule TAKE 1 CAPSULE BY MOUTH THREE TIMES DAILY FOR 10 DAYS5Active flecainide (Tambocor) 100 MG tablet Take 100 mg by mouth in the morning and 100 mg in the evening.5Active fluorouracil (Efudex) 5 % cream Indications:Actinic keratosisApply to directed areas on the scalp twice a day x 14 days. Dispense 30 day supply but only use for14 days. 40 g 5Active Active Problems ProblemNoted DateDiagnosed DateInguinal pain, right06/30/2025 Assessment & Plan (06/30/2025 8:37 AM EDT): Pain for months and recurrent epididymitis. Concerned of hernia and check US. If normal but still discomfort recommend exam by general surgeon to assess for hernia. H/O xcuxswhpydmu23/06/2025Medicare annual wellness visit, xgdxkkowji24/23/2024 Assessment & Plan (03/29/2025 2:43 PM EDT): [...] therapy. Encounter for long-term (current) use of ljevhqhkkov85/23/2024Screening PSA (prostate specific antigen)03/17/2024Obesity (BMI 30-39.9)03/17/2024PH without urinary jirizxuzxft82/12/5918Qqqwtbbpqvne59/12/2024Gastroesophageal reflux disease without mitgqloliyi82/12/2024Insomnia, nrouihdjhbp12/12/2024Obstructive sleep apnea02/04/20240358Fmznojbwfvd77/12/2024rimary osteoarthritis of right hip 4Restless legs02/04/2024Spondylosis of lumbar region without myelopathy or wvjjeaurdzkjr85/12/5852Owtospqhiwzwns10/12/2024 Resolved Problems ProblemNoted DateDiagnosed DateResolved DatePostural dizziness with near syncope SVT (supraventricular tachycardia) Transient global fpantbp30 Assessment & Plan (02/04/2024 4:10 PM EDT): Recent episode and resolved. 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 Check MRI to assess for CVA. If CVA will need to start statin and refer to neurology. Continue aspirin. Encounters DateTypeDepartmentCare VwmyEhuqixlnwti73/04/2025 3:05 PM ESTOffice Visit [facility] [address] [place] [address] Miriam Carpenter MD Seborrheic keratosis (Primary Dx); Capillary angioma; Lentigines; Melanocytic nevus of trunk; History of basal cell carcinoma; Actinic keratosis; Neoplasm of unspecified behavior of bone, soft tissue, and skin09/28/2025amboo flowsheet [facility] [address] [place] [address] Miriam Carpenter MD 09/28/20253026Lbovzi87/12/2025Orders Only [facility] [address] [place] [address] Jennifer Chapin MD 07/05/2025Results Follow-Up [facility] [address] [place] [phone] Jennifer Chapin MD ynkasbi7907/02/2025linisync Result Encounter [facility] External Department Unsolicited Jennifer Chapin MD 06/30/2025 7:45 AM EDTOffice Visit [facility] [address] [place] [address] Jennifer Chapin MD Inguinal pain, right (Primary Dx); H/O ozgegyfaauer29/06/2025amboo flowsheet [facility] [address] [place] [address] Jennifer Chapin MD from Last 3 Months [...] relatives?Once a week02/03/2024How often do you attend gnosticist or orthodoxy services?More than 4 times per year02/03/2024o you belong to any clubs or organizations such as gnosticist groups, unions, fraternal or athletic groups, or school groups?Yes02/03/2024How often do you attend meetings of the clubs or organizations you belong to?More than 4 times per year02/03/2024 Are you , , , , never , or living with a partner?Sagxdoz9802/03/2024UDIT-CAnswerDate RecordedQ1: How often do you have a [...] heating?Not hard at all02/03/2024HQ-2AnswerDate RecordedPatient Health Questionnaire-2 Dtloz920FinFranciscan Health Indianapolis of Occupational Health - Occupational Stress QuestionnaireAnswerDate [...] steady place to sleep or slept in [place] (including now)?No 02/03/2024Sex and Gender InformationValueDate RecordedSex Assigned at BirthNot on fileLegal EfqCvrl5402/06/2023 7:14 PM EDTGender IdentityNot on fileSexual OrientationNot on file Last Filed Vital Signs Vital SignReadingTime TakenCommentsBlood Hphzrtri426/6208 7:57 AM EDT Cpyfm431206/30/2025 7:57 AM SCVJstmgnrobvg76.4 ??C (97.5 ??F)06/30/2025 7:57 AM EDTRespiratory Eyez5010 7:57 AM EDTOxygen Bobxjbqdlj46%06/30/2025 7:57 AM EDTInhaled Oxygen Concentration--Djdzxa838 kg (249 lb)06/30/2025 7:57 AM EDT Rmuhsj686 cm (6' 2 )06/30/2025 7:57 AM EDTBody Mass Index31.9706/30/2025 7:57 AM EDT Plan of Treatment DateTypeDepartmentCare Team (Latest Contact Info)Kptnyukywxq10/05/2026 1:45 PM EDTOffice Visit [facility] [address] [place] [phone] Miriam Carpenter MD [address] [facility] [address] [place] [address] Health MaintenanceDue DateLast DoneCommentsCT Uszgzczggynn1952FIT-DNA 1950FIT1950FOBT03/15/19521061Tfuoceokqmavm1952OVID-19 Vaccine ( season)511/09/2021, 03/22/2021, 03/22/2021, Additional history existsMedicare Annual Wellness (AWV)605, 03/17/2024 Ihvuqlgdyee15/16/203305/, 04/09/2023olorectal Cancer Cnzqlxhxl28/16/2033 Pneumococcal Vaccine: 65+ XcfuhPhykiemko98/20/2021, 08/05/2020Influenza Vaccine Xtijvtflh73/03/2025, 08/09/2024, 08/22/2023, Additional history exists Procedures Procedure NamePriorityDate/TimeAssociated DiagnosisCommentsSKIN / NAIL BIOPSY Rxbvuer2909/28/2025 3:08 PM EST Neoplasm of unspecified behavior of bone, soft tissue, and skin SKIN / NAIL GWAMNZIcnavgm38/04/2025 3:06 PM EST Neoplasm of unspecified behavior of bone, soft tissue, and skin CRYOTHERAPY SKIN BWTBPHEaxcrvx10/04/2025 3:05 PM EST Actinic keratosis US LARHVGZ2107/02/2025 2:53 PM EDT from Last 3 Months Results * Lesion biopsy (09/28/2025 3:08 PM [...] A Petitti MDDERM PROCEDURE ORDERABLESFinal Result * US scrotum (07/02/2025 2:53 PM EDT)Anatomical RegionLateralityModalityBody UltrasoundSpecimen (Source)Anatomical Location / LateralityCollection Method / VolumeCollection TimeReceived Time07/02/2025 2:53 PM EDT Narrative 07/02/2025 2:55 PM EDT [facility] ?[address] ? [place] [address] ? Ultrasound Report ? Signed ? Patient: KAVITA AUSTIN ?MR#: [id number] ?? : 1950 ?Acct:[id number] ?? Age/Sex: 75 / M ?ADM Date: 07/02/25 ?? Loc: US ? Attending Dr: Jennifer Chapin M.D. ? Ordering Physician: Jennifer Chapin M.D. ?? Date of Service: 07/02/25 ?? Procedure(s): US scrotum ?? Accession Number(s): [id number] ? cc: Jennifer Chapin M.D. ? [facility] ? [address] ? [place] [address] ? Patient Name: ?? KAVITA AUSTIN ? MRN: [id number] ? date: 1950 ?Sex: M ?? Assigned Patient Location: US ?? Current Patient Location: US ?? Accession/Order Number: [id number] ?? Exam Date: 07/02/2025 ??14:51 ?Report Date: [...] D.O. ??07/02/2025 2:53 PM ? Dictation Location: [place] [address] ? Electronically authenticated by: [id number] ??Y ?? Date: 07/02/2025 ??14:53 ? Dictated By: ?Tariq Lozada M.D. ? Signed By: ?07/02/25 1455 ? DD/ 1453 ? TD/TT: ? Survey Supervisor: Procedure Note Radiology, Radiologist, - 07/02/2025 [place] [address] Ultrasound Report Signed Patient: KAVITA AUSTIN AMR#: [id number] : 1950cct:[id number] Age/Sex: 75 / MADM Date: 07/02/25 Loc: US Attending Dr: Jennifer Chapin M.D. Ordering Physician: Jennifer Chapin M.D. Date of Service: 07/02/25 [facility] Accession Number(s): [id number] cc: Jennifer Chapin M.D. [address] [address] Patient Name: KAVITA AUSTIN MRN: [id number] date: 1950 Sex: M Assigned Patient Location: [place] Current Patient Location: [place] Accession/Order Number: [id number] Exam Date: 07/02/2025 14:51 Report Date: 07/02/2025 [...] Jr., D.O. 07/02/2025 2:53 PM Dictation Location: [place] [address] Electronically authenticated by: [id number] Y Date: 4:53 Dictated By: Tariq Lozada M.D. Signed By:07/02/25 1455 DD/ 1453 TD/TT: Survey Supervisor: Authorizing ProviderResult TypeResult StatusJennifer Chapin MDMARY [facility] PROCEDURES Final Result from Last 3 Months Insurance Care Teams Team MemberRelationshipSpecialtyStart DateEnd Date Jennifer Chapin MD [facility] - [facility]/04/24 Jennifer Chapin MD [address] [place] [address] PCP - Aet02/24/24
--- OUTSIDE RECORDS SUMMARY | 2025-09-30 11:11 | XMS_ITS | Encounter Summary ---
Author Organization [facility] Address [address] [place] [address] Care Team Providers Care Claim Manager Name Role Phone North Gomes MD Primary Care Provider [phone] North Gomes MD Primary Care Provider [phone] North Gomes MD Unavailable Encounter Details DateTypeDepartmentCare Team (Latest Contact Info)Mcyrrkxujei98/19/2023Clinisync Result Encounter [facility] External Department Unsolicited Provider, [...] relatives?Once a week02/03/2024How often do you attend voodoo or samaritan services?More than 4 times per year4Do you belong to any clubs or organizations such as voodoo groups, unions, fraternal or athletic groups, or school groups?Yes02/03/2024How often do you attend meetings of the clubs or organizations you belong to?More than 4 times per year02/03/2024 Are you , , , , never , or living with a partner?Xqfwbvi36/11/2024AUDIT-CAnswerDate RecordedQ1: How often do you have a [...] heating?Not hard at all02/03/2024HQ-2AnswerDate RecordedPatient Health Questionnaire-2 Slgox918FinWhite [facility] of Occupational Health - Occupational Stress [...] steady place to sleep or slept in [place] (including now)?No 02/03/2024Sex and Gender InformationValueDate RecordedSex Assigned at BirthNot on fileLegal PzjQvty8502/06/2023 7:14 PM EDTGender IdentityNot on fileSexual OrientationNot on filedocumented as of this encounter Functional Status * AUDIT-C ScoreAnswerDate of TrtjblpzzdEhkzmt544/11/2024 5:49 PM Margarita Generic * Q1: How often do you have a drink containing alcohol?AnswerDate of Assessment Author2-4 times a month02/03/2024 5:49 PM Margarita Generic * Q2: How many drinks containing alcohol do you have on a typical day when you are drinking?AnswerDate of AssessmentAuthor1 or 5:49 PM EDT Alva Generic * Q3: How often do you have six or more drinks on one occasion?AnswerDate of HjfzfngnrpBsbiotMbcxf76/11/2024 5:49 PM Margarita Generic * Over the past 2 weeks, how often have you been bothered by any of the following problems?QuestionAnswerDate of AssessmentAuthorLittle interest or pleasure in doing thingsNot at all03/29/2025 2:00 PM Abiola Addison MA Feeling down, depressed, or hopelessNot at all03/29/2025 2:00 PM Abiola Addison MAPatient Health Questionnaire-2 Yxbel325 2:00 PM Abiola Addison MA * QuestionAnswerDate [...] 2:00 PM Abiola Addison MAPatient Health Questionnaire-9 Ogqec717 2:00 PM Abiola Addison MA documented as of this encounter Plan of Treatment DateTypeDepartmentCare Team (Latest Contact Info)Kuycmwujerm67/05/2026 1:45 PM EDTOffice Visit [facility] [address] [place] [address] Miriam Carpenter MD [address] [place] [address] documented as of this encounter Procedures Procedure NamePriorityDate/TimeAssociated DiagnosisCommentsFLUOROSCOPY UP TO 1 HOUR11/12/2023 8:21 AM EST documented in this encounter Results * FLUOROSCOPY UP TO 1 HOUR (11/12/2023 8:21 AM EST)Anatomical RegionLaterality ModalityRadiographic ImagingSpecimen (Source)Anatomical Location / Laterality Collection Method / VolumeCollection TimeReceived Time11/12/2023 8:21 AM EST Narrative 11/12/2023 8:24 AM EST [facility] ?[address] ? [place] [address] ? Fluoroscopy Report ? Signed ? Patient: BLAIRE AUSTINYOUNG Hines ?MR#: [id number] ?? : 1950 ?Acct:[id number] ?? Age/Sex: 73 / M ?ADM Date: 11/11/23 ?? Loc: SURGOUT ? Attending Dr: Barbie Alcala D.P.M. ? Ordering Physician: Barbie Alcala D.P.M. ?? Date of Service: 11/11/23 ?? Procedure(s): FL fluoroscopy <1hr NON-READ Accession Number(s): [id number] ? cc: Barbie Alacla D.P.M.; North Gomes M.D. ? [facility] ? [address] ? [place] [address] ? Patient Name: ?? KAVITA AUSTIN ? MRN: [facility]:[id number] ? date: 1950 ?Sex: M ?? Assigned Patient Location: SURGOUT ?? Current Patient Location: ? Accession/Order Number: [id number] ?? Exam Date: 11/11/2023 ??14:36 ?Report Date: 11/12/2023 ??08:21 ? At the request of: ?? BARBIE ??AJITH ? Procedure: FL fluoroscopy <1hr NON-READ ?? EXAM: FL fluoroscopy <1hr NON-READ ?? HISTORY: LEFT FOOT PAIN ? TECHNIQUE: ? FINDINGS: Please see Operative Report. ? Electronically authenticated by: RADIOLOGIST ??NO ?? Date: 11/12/2023 ??08:21 ? Dictated By: ?No,Radiologist ? Signed By: ?11/12/23823 ? DD/ 0821 ? TD/TT: ? Artist Manager: Procedure Note Radiology, Radiologist, - 11/12/2023 [place] [address] Fluoroscopy Report Signed Patient: KAVITA AUSTIN AMR#: [id number] : 1950cct:[id number] Age/Sex: 73 / MADM Date: 11/11/23 Loc: [facility] Attending Dr: Barbie Alcala D.P.M. Ordering Physician: Barbie Alcala D.P.M. Date of Service: 11/11/23 Procedure(s): FL fluoroscopy <1hr NON-READ Accession Number(s): [id number] cc: Barbie Alcala D.P.M.; North Gomes M.D. The [address] [address] Patient Name: KAVITA AUSTIN MRN: [id number] date: 1950 Sex: M Assigned Patient Location: [facility] Current Patient Location: Accession/Order Number: [id number] Exam Date: 11/11/2023 14:36 Report Date: 11/12/2023 08:21 At the request of: BARBIE ALCALA Procedure: FL fluoroscopy <1hr NON-READ EXAM: FL fluoroscopy <1hr NON-READ HISTORY: LEFT FOOT PAIN TECHNIQUE: FINDINGS: Please see Operative Report. Electronically authenticated by: RADIOLOGIST MEET Date: 11/12/2023 08:21 Dictated By: Luis Perez Signed By:11/12/23823 DD/ 0 TD/TT: Artist Manager: Authorizing ProviderResult TypeResult StatusGeneric External Data ProviderIMG XR PROCEDURESFinal Result documented in this encounter Visit Diagnoses Not on filedocumented in this encounter Care Teams Team MemberRelationshipSpecialtyStart DateEnd Date North Gomes MD PCP - GeneralFamily Rkgkroly70/1/233 North Gomes MD PCP - GeneralFamily Medicine02/04/24 North Gomes MD [address] [place] [address] PCP - [employer]02/24/24documented as of this encounter
--- OUTSIDE RECORDS SUMMARY | 2025-09-30 11:11 | XMS_ITS | Encounter Summary ---
Author Organization Address [address] [place], [place] [address] Care Team Providers Care Boat Hop Name Role Phone Unavailable Primary Care Provider Unavailabl e Source Comments In the event this information is protected by the Federal Confidentiality of Alcohol and Drug AbusePatient Records regulations: The Federal rules restrict any use of the information to criminally investigate or prosecute any alcohol or drug abuse patient. Encounter Details DateTypeDepartmentCare Team (Latest Contact Info)Xhohosblhuy02/28/2025Lab Requisition [facility] [address] [place] [id number] Provider, External, RAMON Do not enter address information under generic External Provider. Social History Tobacco UseTypesPacks/DayYears UsedDateSmoking Tobacco: Never AssessedSex and Gender InformationValueDate RecordedSex Assigned at BirthNot on fileLegal Sex Male10/26/2012 9:48 AM ESTGender IdentityNot on fileSexual OrientationNot on filedocumented as of this encounter Plan of Treatment NameTypePriorityAssociated DiagnosesDate/TimeORGANISM LNBMqcBqqwzvp04/24/2025 7:10 PM EDTdocumented as of this encounter Procedures Procedure NamePriorityDate/TimeAssociated DiagnosisCommentsVARIABLE BILLING Iwrrwng7809/17/2025 7:10 PM EDTANTIMICROBIAL SUSCEPT-FASTIDIOUS ORGANISMRoutine 09/17/2025 7:10 PM EDT ORGANISM FESJulhzbs16/24/2025 7:10 PM EDTORGANISM ID NNQVNYDfyvgsu41/24/2025 7:10 PM EDT documented in this encounter Results * VARIABLE BILLING (09/17/2025 7:10 PM EDT)Specimen (Source)Anatomical Location / LateralityCollection Method / VolumeCollection TimeReceived TimeOrganism IsolateSPECIMEN FROM WOUND / Vaxzyti1709/17/2025 7:10 PM EDT1 3:00 AM EDT Narrative Authorizing ProviderResult TypeResult StatusExternal Provider PA-CLABORATORY Final ResultPerforming OrganizationAddressCity/State/[facility] CodePhone Number [employer] [address] [place] [phone] * (ABNORMAL) ANTIMICROBIAL SUSCEPT-FASTIDIOUS ORGANISM (09/17/2025 7:10 PM EDT) ComponentValueRef RangeTest MethodAnalysis TimePerformed AtPathologist SignatureFinal ReportSEE NOTE(A)09/27/2025 4:51 PM ESTNOR-LEA GENERAL [facility] Comment: Pasteurella species Organism identified by client INTERPRETIVE INFORMATION: Fastidious Organism Susceptibility Units = ug/mL Susceptibility testing is performed by CLSI-approved broth microdilution method using custom-made DEXTER panels. JULIANNA M Beta-Lactamase ? Neg DEXTER Azithromycin ?0.25 Suscept Levofloxacin <=0.06 Suscept Penicillin ?0.12 Suscept Trimethoprim/Sulfamethoxazole <=.12/2.4 Suscept Ampicillin <=0.12 Suscept Tetracycline <=1 Suscept Performed By: [facility] [address] [place] [address] Temperature Regulator: Lazaro Rosenbaum MD, PhD CLIA Number: [id number] Specimen (Source)Anatomical Location / LateralityCollection Method / Volume Collection TimeReceived TimeOrganism IsolateSPECIMEN FROM WOUND / Unknown 09/17/2025 7:10 PM EDT1 3:00 AM EDT Narrative Authorizing ProviderResult TypeResult StatusExternal Provider PA-CLABORATORY Final ResultPerforming OrganizationAddressCity/State/ZIP CodePhone Number [address] [address] * (ABNORMAL) ORGANISM ID AEROBE (09/17/2025 7:10 PM EDT)ComponentValueRef Range Test MethodAnalysis TimePerformed AtPathologist SignatureCulture, Organism ID AerobePasteurella species(A)09/22/2025 10:03 AM EDTCGEORGETOWN BEHAVIORAL H[facility]PITAL [facility] Comment:Pasteurella stomatisBeta SsezzmawzUlqvwhys44/29/2025 10:03 AM EDT [facility] LABSpecimen (Source)Anatomical Location / Laterality Collection Method / VolumeCollection TimeReceived TimeOrganism IsolateSPECIMEN FROM WOUND / Xyecuqu1509/17/2025 7:10 PM EDT1 3:00 AM EDT Narrative [facility] - 09/22/2025 10:03 AM EDT This test was developed and its performance characteristics determined by the '[facility] [place] ([facility]EXICOPLMI). It has not been cleared or approved by the FDA. -[facility] is regulated under CLIA as qualified to perform high-complexity testing. This test is used for clinical purposes. It should not be regarded as investigational or for research. Authorizing ProviderResult TypeResult StatusExternal Provider PA-CMICROBIOLOGY Final ResultPerforming OrganizationAddressCity/State/ZIP CodePhone Number [facility] [address] documented in this encounter Visit Diagnoses Not on filedocumented in this encounter
--- OUTSIDE RECORDS SUMMARY | 2025-09-30 11:11 | XMS_ITS | Clinical Summary ---
Author Organization [facility] Address [address] [place] [address] Care Team Providers Care Director Marketing Communications Name Role Phone North Gomes MD Primary Care Provider [phone] Allergies No known active allergies Medications MedicationSigDispense QuantityRefillsLast FilledStart DateEnd DateStatus doxepin (SINEquan) 50 mg capsule doxepin 50 mg capsuleActive finasteride (Proscar) 5 mg tablet finasteride 5 mg sgzlrt8806/17/2018Active rOPINIRole (Requip) 2 mg tablet ropinirole 2 mg tabletActive tamsulosin (Flomax) 0.4 mg 24 hr capsule tamsulosin 0.4 mg hudaita4304/06/2022ctive cholecalciferol (Vitamin D-3) 125 MCG (5000 UT) [...] 60 tablet 5Active Active Problems ProblemNoted DateDiagnosed JblqOpecthhjrv77/28/2025History of colonic polyps 04/21/20256048Vwvfrzhyxkye78/28/2025Pain due to internal orthopedic prosthetic devices, implants and grafts, initial lgrhwagwn71/28/2025Pain in left foot 04/21/2025Pseudarthrosis after fusion or rlvxzwcozkf47/28/2025Medicare annual wellness visit, naauuvopgr97/23/2024 Overview (06/09/2024): Last Assessment & Plan: Due for labs. Discussed proper diet and regular aerobic exercise. Need aerobic exercise 5-6 days a week for 30 minutes at a time. Smaller portions and limit total calories. Colonoscopy every 10 years. Tetanus every 10 years. Advised not to smoke. Discussed daily Aspirin therapy. Obesity (BMI 30-39.9)03/17/2024Encounter for long-term (current) use of qviteyemilm28/23/2214Zjwcscliyxbghg79/12/6851Qiszqnmhoiil90/12/2024 Gastroesophageal reflux disease without edjxpylyoik05/12/2024Insomnia, stqjzsapqyv39/12/2024ostural dizziness with near uajsstm0502/04/2024rediabetes 02/04/2024Spondylosis of lumbar region without myelopathy or radiculopathy 02/04/2024Transient global avsldin7202/04/2024 Overview (06/09/2024): Last Assessment & Plan: Recent episode and resolved. 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 Check MRI to assess for CVA. If CVA will need to start statin and refer to neurology. Continue aspirin. SVT (supraventricular tachycardia)12/03/20231076Lhilysatdsmf83 Ischial bursitis of left side/rimary osteoarthritis of left hip/03/2023 Overview (07/30/2023): Added automatically from request for surgery [id number] Chronic hipcxurgsqw09/11/2023Family history of malignant neoplasm of kidney 12/05/2022History of anticoagulant tjytvju1812/05/2022ain in egjdowpy12/11/2023 Okelaiuaul82/11/2023Lumbosacral spondylosis without pexdgtpyux83/03/2020 Overview (12/05/2022): Added automatically from request for surgery [id number] Paroxysmal atrial awhuvqtlkulg99/16/2017 Assessment & Plan (12/19/2022 3:57 PM EST): - JSU3EO3-JZGd: 1 (age), possibly 2 for masked HTN, he has not trialed off cardizem -continue aspirin 325 -he called after visit and decided he would like to proceed with loop monitor implant for AF surveillance -continue cardizem 180 BPH (benign prostatic hyperplasia)07/10/2017Restless leg bntetssj48/16/2017 Degenerative joint disease of pelvic daqhai4604/04/2017Sleep apnea10/09/2016 Overview (12/05/2022): instructed to bring CPAP to hospital Assessment & Plan (12/19/2022 3:56 PM EST): -continue with compliance for cpap Encounters DateTypeDepartmentCare RftlHftngjewmie14/09/2025 9:35 AM EDTAncillary Procedure [facility] [address] [place] [phone] Awareness of qpuebqkbrh98/09/2025Orders Only [facility] Cardiology Clinic [address] [place] [phone] Carmencita Tse MD 08/06/2025Refill [facility] [address] [facility] [place] [address] Gaye Pizano MA Paroxysmal atrial fibrillation (CMS/HCC)08/05/2025Telephone [facility] [address] [facility] [place] [address] Sveta Paris MA 08/03/2025Orders Only [facility] [address] [place] [address] ProviderIsh MD 08/02/2025 12:40 PM EDTAncillary Procedure [facility] [address] [place] [address] Awareness of qbvioznjri72/02/2025 2:15 PM EDTOffice Visit [facility] [address] [place] [address] Tiago Wilburn MD Abnormal EKG (Primary Dx); Pre-op /02/2025Orders Only [facility] [address] [place] [address] Tiago Wilburn MD 07/27/2025Orders Only [facility] [address] [place] [address] Provider, MD Ish 07/12/2025Orders Only [facility] [address] [place] [address] Carmencita Tse MD 07/02/2025 3:55 PM EDTAncillary Procedure [facility] [address] [place] [address] Awareness of heartbeatsfrom Last 3 Months Immunizations ImmunizationAdministration DatesNext DueInfluenza, Seasonal, Quadrivalent, Hrevajlitz48/09/2022,08/14/2021Influenza, injectable, quadrivalent, preservative free08/05/2020,07/08/2018,08/08/2017,07/19/2016,09/03/2015Influenza, seasonal, mdgrawinmr69/01/2017Influenza, trivalent, byamcmayoe93/07/2019Moderna SARS-CoV-2 Mydqiyysmet31/28/2021Pneumococcal Conjugate PCV 13008/05/2020Pneumococcal Polysaccharide RGJ839308/14/2021Zoster, Szbbrbctlhz26/14/2018,03/25/2018 Family History Medical HistoryRelationNameCommentsmalignant neoplastic diseaseFatherCoronary artery diseaseMothermaligant neoplastic diseaseMotherRelationNameStatusComments FatherDeceasedMotherDeceased Social History Tobacco UseTypesPacks/DayYears UsedDateSmoking Tobacco: NeverSmokeless Tobacco: Never Tobacco Cessation:Counseling Given: Not Answered Alcohol UseStandard Drinks/WeekCommentsYes0 (1 standard drink = 0.6 oz pure alcohol)occasionalUT Safety & EnvironmentAnswerDate RecordedFear of Current or Ex-PartnerNot on file01/16/2024Emotionally AbusedNot on file01/16/2024hysically AbusedNot on file01/16/2024Sexually AbusedNot on file01/16/2024hysically or Sexually AbusedNot on file01/16/2024Sex and Gender InformationValueDate Recorded Sex Assigned at BirthNot on fileLegal WqqYvfy1005/23/2022 11:50 PM EDTGender IdentityChoose not to oephzrsx43/30/2025 10:59 PM EDTSexual OrientationChoose not to smendkev91/30/2025 10:59 PM EDT Last Filed Vital Signs Vital SignReadingTime TakenCommentsBlood Dhhmrfcy861/6609 2:24 PM EDT Kwpze171707/27/2025 2:24 PM EDTTemperature--Respiratory Qmuw957102/12/2024 6:10 PM EDTOxygen Qdffjfppht02%07/27/2025 2:24 PM EDTInhaled Oxygen Concentration-- Ophflu195 kg (251 lb)07/27/2025 2:24 PM ZOQGfggip890 cm (6' 2 )07/27/2025 2:24 PM EDTBody Mass Index32.23007/27/2025 2:24 PM EDT Plan of Treatment DateTypeDepartmentCare Team (Latest Contact Info)Fdhtbmbjbue28/02/2025 2:00 PM ESTOffice Visit [facility] [address] [place] [address] Tiago Wilburn MD [address] [place] [address] Health MaintenanceDue DateLast DoneCommentsCT Qricbqlcqizy1952Colonoscopy 2Colorectal Cancer Qnlnebawo1952FIT-DNA1952FIT1950 FOBT1952Medicare Annual Wellness (AWV)03/15/19522142Ogleaozpqqgwe1952 Depression Mcchupxaj01/21/1964Adult Swjzlfg0703/15/1974Fall Risk Screening 2017COVID-19 Vaccine ( season)5112/05/2020, 03/22/2021, 03/22/2021, Additional history existsDiabetes: Hemoglobin A1C04/03/2026 04/03/2025Zoster SebakxojEkwzmtezn55/14/2018, 03/25/2018Pneumococcal Vaccine: 50+ WidhzLqvqbhjsx80/20/2021, 08/05/2020Influenza IjksnhtJnvhhoqch32/03/2025, 08/09/2024, 08/22/2023, Additional history existsHIB VaccinesAged OutNo longer eligible based on patient's age to complete this topicHPV VaccinesAged OutNo longer eligible based on patient's [...] Expiration DateModel / Serial / LotMonitor,Cardiac,Mobile,Luxdx - [id number] - [id number] Implanted:Qty: 1 on 01/24/2023 by Tiago Wilburn MD at [facility]Implant[facility] Loop RecorderJackson Medical Centerton [id number] / [id number] / Procedures Procedure NamePriorityDate/TimeAssociated DiagnosisCommentsCARDIAC DEVICE CHECK CHECK - HXEWZNEnnoqem82/14/2025 1:39 PM EDT Awareness of heartbeats CARDIAC DEVICE CHECK - REMOTE - LOOP RECORDER (ILR)Bgsnykx7209/02/2025 12:00 AM EDTTREADMILL STRESS MYOCARDIAL PERFUSION XYUIUNALvmxeqe19/09/2025 3:16 PM EDT CARDIAC DEVICE CHECK CHECK - FKJEYSJkifzrg21/08/2025 9:20 AM EDT Awareness of heartbeats BASIC METABOLIC RBVLAIcwnyvf88/02/2025 8:30 AM EDTCARDIAC DEVICE CHECK - REMOTE - LOOP RECORDER (ILR)Ddikyic8207/27/2025 12:00 AM EDTCARDIAC DEVICE CHECK CHECK - EKUGEMNcxzdte49/21/2025 9:08 AM EDT Awareness of heartbeats CARDIAC DEVICE CHECK - REMOTE - LOOP RECORDER (ILR)Ensnzlh3707/12/2025 12:00 AM EDTHEMOGLOBIN A8WIfokkif41/10/2025 4:56 PM EDTfrom Last 3 Months or Most Recently Relevant to Health Maintenance Results * CARDIAC DEVICE CHECK - REMOTE - LOOP RECORDER (ILR) (09/07/2025 1:39 PM EDT) Only the most recent of3 resultswithin the time period is included. Specimen (Source)Anatomical Location / LateralityCollection Method / Volume Collection TimeReceived Time Narrative Authorizing ProviderResult TypeResult StatusBlair Michael MDCV IMPLANTABLE CARDIAC DEVICE PROCEDURESFinal ResultPerforming OrganizationAddressCity/State/ZIP Code Phone Number CPACS * Cardiac device check - Remote loop recorder (ILR) (09/02/2025 12:00 AM EDT) Only the most recent of3 resultswithin the time period is included. Anatomical RegionLateralityModalityOtherSpecimen (Source)Anatomical Location / LateralityCollection Method / VolumeCollection TimeReceived Time09/02/2025 Narrative Authorizing ProviderResult TypeResult StatusCarmencita Kamran Tse [facility] [place] IMPLANTABLE CARDIAC DEVICE PROCEDURESFinal Result * Treadmill Stress Myocardial Perfusion Imaging (08/03/2025 3:16 PM EDT) Anatomical RegionLateralityModalityOther Narrative Authorizing ProviderResult TypeResult StatusHistorical Provider [facility] STRESS PROCEDURESFinal Result * Basic metabolic panel (07/27/2025 8:30 AM EDT)Specimen (Source)Anatomical Location / LateralityCollection Method / VolumeCollection TimeReceived Time BloodVenous blood specimen / Unknown Narrative Authorizing ProviderResult TypeResult StatusHistorical Provider MDLAB BLOOD ORDERABLESFinal Result * Hemoglobin A1c (04/03/2025 4:56 PM EDT)Specimen (Source)Anatomical Location / LateralityCollection Method / VolumeCollection TimeReceived TimeBloodVenous blood specimen / Unknown Narrative Authorizing ProviderResult TypeResult StatusHistorical Provider MDLAB BLOOD ORDERABLESFinal Result from Last 3 Months or Most Recently Relevant to Health Maintenance Insurance Care Teams Team MemberRelationshipSpecialtyStart DateEnd Date North Gomes MD [address] [place] [address] PCP - General12/05/22
--- OUTSIDE RECORDS SUMMARY | 2025-09-30 11:11 | XMS_ITS | Clinical Summary ---
Author Organization [facility] Address [address] [place] [address] Phone Care Team Providers Care Chief Chemist Name Role Phone Unavailable Primary Care Provider Unavailabl e Social History Tobacco UseTypesPacks/DayYears UsedDateSmoking Tobacco: Never AssessedSex and Gender InformationValueDate RecordedSex Assigned at BirthNot on fileLegal Sex Male10/19/2022 1:10 PM ESTGender IdentityNot on fileSexual OrientationNot on file Plan of Treatment Not on file
--- OUTSIDE RECORDS SUMMARY | 2025-09-30 11:11 | XMS_ITS | Clinical Summary ---
Author Organization [employer] Address [id number] [address] [place] [address] Care Team Providers Care Occupational Therapist Assistant Name Role Phone North Gomes MD Primary Care Provider [phone] Allergies No known active allergies Medications MedicationSigDispense [...] mg total) by mouth in the morning.Active flecainide (TAMBOCOR) 100 mg tablet Take 1 tablet (100 mg total) by mouth in the morning and 1 tablet (100 mg total) before bedtime.Active lisinopriL (PRINIVIL,ZESTRIL) 10 mg tablet Take 1 tablet (10 mg total) by mouth in the morning.Active clindamycin (CLEOCIN) 300 mg capsule TAKE 1 CAPSULE BY MOUTH THREE TIMES DAILY FOR 10 DAYS09/13/2025tive dilTIAZem CD (CARDIZEM CD) 240 mg 24 hr capsule TAKE 1 CAPSULE ONCE DAILY DIRECTED (THIS IS AN INCREASE)Active DILT-XR 180 mg 24 hr capsule Take 1 capsule (180 mg total) by mouth in the morning. Discontinued lisinopriL (PRINIVIL,ZESTRIL) 10 mg tablet Take 1 tablet (10 mg total) by mouth in the morning.09/21/2025Discontinued (Duplicate Listing) dilTIAZem HCL in NaCl,iso-osm 100 mg/100 mL (1 mg/mL) solution dilTIAZem HCl09/21/2025Discontinued(Therapy completed) Active Problems ProblemNoted DateDiagnosed DateTraumatic open wound of left lower leg with delayed rrowpqp3509/21/2025Status post total hip replacement, right09/01/2025 Inguinal pain, right06/30/20257458Xwuvckwcpd69/28/2025History of colonic polyps 04/21/20254590Xubimnpdftib70/28/2025Pain in left foot04/21/2025Pseudarthrosis after fusion or noreehxleha24/28/2025Ischial bursitis of left side07/30/2023rimary osteoarthritis of left hip01/29/2023 Overview (01/29/2023): Added automatically from request for surgery [id number] Lumbosacral spondylosis without qjcovlwgfx60/03/2020 Overview (07/28/2020): Added automatically from request for surgery [id number] Afib07/10/2017BPH (benign prostatic hyperplasia)07/10/2017Restless leg syndrome 07/10/2017Sleep apnea07/10/2017 Overview (07/10/2017): instructed to bring CPAP to hospital Degenerative joint disease of pelvic lqkksl0404/04/2017 Resolved Problems ProblemNoted DateDiagnosed DateResolved DatePrimary osteoarthritis of right hip Encounters DateTypeDepartmentCare PbkhBydvykzhdqk21/30/2025 2:15 PM EDTProcedure visit [facility] [address] [place] [address] Tavares Eng PA Primary osteoarthritis of left hip (Primary Dx)09/21/2025 8:40 AM EDTOffice Visit [facility] [address] [place] [address] Adri Núñez, [employer] DESIGNER-NURSING HOME AIDE Traumatic open wound of left lower leg with delayed healing (Primary Dx) 09/21/20252534Kubcnd89/08/2025 10:00 AM EDTOffice Visit [facility] [address] [place] [address] Schuyler Ambrocio MD Primary osteoarthritis of left hip (Primary Dx); Status post total hip replacement, right09/01/2025 9:41 AM EDT - 09/01/2025 11:59 PM EDTHospital Encounter [facility] [address] [place] [address] Left hip pain Discharge Disposition: Home08/30/20250638Mispiy54/22/2025Orders Only [facility] [address] [place] [address] Jennifer Gasca CMA Left hip pain (Primary Dx)07/14/2025 10:15 AM EDTOffice Visit [facility] [address] [place] [address] Ventura Watson DO Chronic epididymitis (Primary Dx)07/14/20254925Zcnnyh98/08/2025 1:50 PM EDTAncillary Procedure [facility] [employer] [address] [place] [address] Painfrom Last 3 Months Family History Medical HistoryRelationNameCommentsCancerFatherArthritisMotherRuthAsthmaMother RuthBreast cancerMotherRuthCancerMotherRuthHeart diseaseMotherRuthAnesthesia problemsNeg HxRelationNameStatusCommentsFatherDeceasedMotherRuthAlive Social History Tobacco UseTypesPacks/DayYears UsedDateSmoking Tobacco: NeverPassive Smoke Exposure: NeverSmokeless Tobacco: NeverAlcohol UseStandard Drinks/WeekComments Yes0 (1 standard drink = 0.6 oz pure alcohol)One drink per weekChildcareAnswer Date FyrabxabMfzbkcnzjZdfmcjj23/12/2019EmploymentAnswerDate RecordedEmployment Efizvfs6105/06/2019Hunger ScreeningAnswerDate RecordedWithin the past 12 months we worried whether our food would run out before we got money to buy more.Never True09/21/2025Within the past 12 months the food we bought just didn't last and we didn't have money to get more.Never True09/21/2025Purpose - LifeAnswerDate RecordedPurpose and direction in eqinZduhlue11/11/2021ex and Gender Information ValueDate RecordedSex Assigned at NhgfeQspe68/17/2020 1:17 PM ESTLegal SexMale 06/30/2015 11:47 AM EDTGender JsbfoyieTpcx03/17/2020 1:17 PM ESTSexual CclpystyjuaUobatsfz96/17/2020 1:17 PM EST Last Filed Vital Signs Vital SignReadingTime TakenCommentsBlood Oovdcxjl126/6110 8:42 AM EDT Qezhz063909/21/2025 8:42 AM BPDZnnuyxjfcsg89.7 ??C (98 ??F)09/21/2025 8:42 AM EDT Respiratory Hbva2592 8:42 AM EDTOxygen Juukyqoxtc88%10/07/2024 1:39 PM ESTInhaled Oxygen Concentration--Vvpamo060.4 kg (250 lb)09/23/2025 2:13 PM EDT Uadyrn753 cm (6' 2 )09/23/2025 2:13 PM EDTBody Mass Index32. 2:13 PM EDT Plan of Treatment DateTypeDepartmentCare Team (Latest Contact Info)Bqvgczvwkij68/11/2025 11:00 AM ESTOffice Visit [facility] [address] [facility] [address] Adri Núñez, [employer] DESIGNER-NURSING HOME AIDE [address] [place] [address] 12/06/2025 9:00 AM ESTOffice Visit [facility] [address] [place] [address] Schuyler Ambrocio MD [address] [facility] [place] [address] Health MaintenanceDue DateLast XyvoKmroyfeaTerujawyhcg1952Depression Yesrdhgdj85/21/1964Adult BMI Follow Up Plan1970Fall Risk Screening 2017COVID-19 Vaccine ( season), 03/22/2021, 03/01/2021dult BMI Gczzjhbgv72Tobacco Cdnlllzuh88/30/2026 09/23/2025RSV ( or age 60+ yrs) (1 - 1-dose 75+ series)2027 DTaP,Tdap and Td Vaccines (2 - Tdap)Zoster (Shingles) AumhcgbVubkskome57/14/2018, 03/25/2018Influenza JlqgxoxTfrhhovpk84/03/2025, 08/09/2024, 08/22/2023, Additional history exists Goals GoalPatient Goal TypeAssociated ProblemsRecent ProgressPatient-Stated?Author Improve mobility Poly Gray, RN Note: Evaluation of progress towards goal: Maximize work with PT at discharge to strengthen R hip Medical Devices ImplantedTypeAreaManufacturerDevice IdentifierShelf Expiration DateModel / Serial / LotMes Brd Perfix Plug Med Rpl [id number] Rpl [id number] - [id number] - [id number] Implanted:Qty: 1 on 09/23/2018 by Ventura Watson, DO at [facility]/A: UnxkvADAWM49/30/[id number] / [id number] / [id number] Brd Preshape Hawkins 3x5 Rpl [id number] - [id number] - [id number] Implanted:Qty: 1 on 09/23/2018 by Ventura Watson DO at [facility]/A: NraejnknbEUKGS75/30/[id number] / [id number] / [id number]:13.7 cm x 5.9 cm cut to fit defectLinr Actb 36mm F Ntrl E1 Clr - [id number] Implanted:Qty: 1 on 07/10/2017 by Schuyler Ambrocio MD at [facility] ImplantRight: HipBiomet [id number] / / [id number] Fem 36mm Opt G7 Blx D Hip Rpl 650-9717 - [id number] Implanted:Qty: 1 on 07/10/2017 by Schuyler Ambrocio MD at [facility] ImplantRight: HipBiomet [id number] / / [id number] Fem Opt +3mm Tpr Hip Blx D Rpl 650-1067 - [id number] Implanted:Qty: 1 on 07/10/2017 by Schuyler Ambrocio MD at [facility] ImplantRight: HipBiomet [id number] / / [id number] Fem 125mm 133d 20 Hi Os - [id number] Implanted:Qty: 1 on 07/10/2017 by [facility]yler [facility] ImplantRight: HipBiomet [id number] / / [id number] RecorderShell Implanted:Qty: 1 on 07/10/2017 by Sch[facility]yler [facility]io MD [facility]: [id number] / / [id number]cn IdentifierShelf Expiration DateModel / Serial / LotStm Fem 119mm 133d 17 Hi Os - [id number] Implanted:Qty: 1 Explanted:Qty: 1 on 07/10/2017 at [facility] ImplantRight: [id number] / / [id number] Procedures Procedure NamePriorityDate/TimeAssociated DiagnosisCommentsNURSING COMMUNICATION Kkxpdrz7709/24/2025 2:49 PM EDT Traumatic open wound of left lower leg with delayed healing SD ARTHROCENTESIS ASPIR&/INJ MAJOR JT/BURSA W/O EEFsqaiec55/30/2025 2:21 PM EDT Primary osteoarthritis of left hip CCJZOMHYFLTJhspihx54/28/2025 8:40 AM EDT Traumatic open wound of left lower leg with delayed healing XR HIP LT 2-3 VIEWS W OR WO CWLOTAHeytmyb69/08/2025 9:50 AM EDT Left hip pain US NVPYDYQNstardp69/08/2025 1:50 PM EDT Pain from Last 3 Months Results * Xeroform 4x4 (09/24/2025 2:49 PM EDT) Narrative MANUALLY TRANSCRIBED RESULTS - 09/24/2025 2:49 PM EDT Applied in clinic Authorizing ProviderResult TypeResult StatusAdri Núñez APRN-CNPNURSING COMMUNICATIONFinal ResultPerforming OrganizationAddressCity/State/ZIP CodePhone Number MANUALLY TRANSCRIBED RESULTS * [place] ARTHROCENTESIS ASPIR&/INJ MAJOR JT/BURSA W/O US (09/23/2025 [...] the usual sterile fashion. Authorizing ProviderResult TypeResult StatusTavares SUBRAMANIAN PROCEDURE/MINOR SURGICAL ORDERABLESEdited Result - FinalPerforming Organization AddressCity/State/ZIP CodePhone Number MANUALLY TRANSCRIBED RESULTS * Debridement (09/21/2025 8:40 AM EDT) Narrative MANUALLY TRANSCRIBED RESULTS - 09/21/2025 8:40 AM EDT ОЛЕГ Davis 09/21/2025 10:00 AM Debridement Performed by: ОЛЕГ Davis Authorized by: ОЛЕГ Davis ??Associated wounds: Wound 09/21/25 1 Traumatic Knee Left;Posterior Consent: ??Consent obtained: ??Verbal and written ??Consent given by: ??Patient ??Risks discussed: Yes ?? Debridement Details: ??Performed by: ??SUIT ATTENDANT ??Type: ??Sharp ??Level: ??Subcutaneous ??Tissue, Devitalized tissue and other material debrided: ??Subcutaneous tissue, slough and fibrin ??Anesthesia administration: topical ?Anesthesia: ??EMLA and benzocaine ??Total Surface Area Debrided cm^2: ??2.86 ??Specimen Taken: ??None ??Instrument: ??Curette ??Amount of bleeding: ??Medium ??Bleeding Control: ??Pressure ??Response to treatment: ??Procedure was tolerated well ??Tissue Applied?: ??No Authorizing ProviderResult TypeResult StatusMary Mariano Núñez [employer] DESIGNER-NURSING HOME AIDE PROCEDURE/MINOR SURGICAL ORDERABLESFinal ResultPerforming OrganizationAddress City/State/ZIP CodePhone Number MANUALLY TRANSCRIBED RESULTS * X-ray hip left 2-3 views with [...] 1:27 PM Authorizing ProviderResult TypeResult StatusSchuyler Ambrocio MDIMParisa DIAGNOSTIC IMAGING ORDERABLESFinal Result * Ultrasound scrotum (07/02/2025 1:50 PM EDT)Specimen (Source)Anatomical Location / LateralityCollection Method / VolumeCollection TimeReceived Time Narrative Authorizing ProviderResult TypeResult StatusScanning Provider ExternalIMG US ORDERABLESFinal Result from Last 3 Months Insurance * Guarantor: Oscar ManuelAccount TypeRelation to PatientDate of PhoneBilling TihfkcyJhspiwCjgq[address] [place], [place] [id number] Care Teams Team MemberRelationshipSpecialtyStart DateEnd Date North Gomes MD PCP - GeneralFamily Mlvrfyaa41/13/24
--- OUTSIDE RECORDS SUMMARY | 2025-09-30 11:11 | XMS_ITS | Encounter Summary ---
Author Organization [facility] Address [address] [place] [address] Care Team Providers Care Repatcher Name Role Phone North Gomes MD Primary Care Provider [phone] North Gomes MD Primary Care Provider [phone] North Gomes MD Unavailable Encounter Details DateTypeDepartmentCare Team (Latest Contact Info)Gebqbwowexv15/09/2024Clinisync Result Encounter [facility] External Department Unsolicited Provider, [...] relatives?Once a week02/03/2024How often do you attend orthodox or orthodoxy services?More than 4 times per year4Do you belong to any clubs or organizations such as orthodox groups, unions, fraternal or athletic groups, or school groups?Yes02/03/2024How often do you attend meetings of the clubs or organizations you belong to?More than 4 times per year02/03/2024 Are you , , , , never , or living with a partner?Qtosjcp58/11/2024AUDIT-CAnswerDate RecordedQ1: How often do you have a [...] heating?Not hard at all02/03/2024HQ-2AnswerDate RecordedPatient Health Questionnaire-2 Fusux875FinMarg[facility] - Occupational Stress [...] steady place to sleep or slept in [place] (including now)?No 02/03/2024Sex and Gender InformationValueDate RecordedSex Assigned at BirthNot on fileLegal MtdMmed5702/06/2023 7:14 PM EDTGender IdentityNot on fileSexual OrientationNot on filedocumented as of this encounter Functional Status * AUDIT-C ScoreAnswerDate of YhzcxigqtyEvdogx017/11/2024 5:49 PM Margarita Generic * Q1: How [...] or more drinks on one occasion?AnswerDate of IppgyxwhksWjjjzlJenqw63/11/2024 5:49 PM Margarita Generic * Over the past 2 weeks, how often have you been bothered by any of the following problems?QuestionAnswerDate of AssessmentAuthorLittle interest or pleasure in doing thingsNot at all03/29/2025 2:00 PM Abiola Addison MA Feeling down, depressed, or hopelessNot at all03/29/2025 2:00 PM Abiola Addison MAPatient Health Questionnaire-2 Mpaqt955 2:00 PM Abiola Addison MA * QuestionAnswerDate [...] 2:00 PM Abiola Addison MAPatient Health Questionnaire-9 Opgeu548 2:00 PM Abiola Addison MA documented as of this encounter Plan of Treatment DateTypeDepartmentCare Team (Latest Contact Info)Ywtdjohklwg21/05/2026 1:45 PM EDTOffice Visit [facility] [address] [place] [address] Miriam Carpenter MD [address] [place] [address] documented as of this encounter Procedures Procedure NamePriorityDate/TimeAssociated DiagnosisCommentsXR FOOT LT MIN 3V 12/03/2023 3:48 PM EST documented in this encounter Results * XR FOOT LT MIN 3V (12/03/2023 3:48 PM EST)Anatomical RegionLateralityModality OtherSpecimen (Source)Anatomical Location / LateralityCollection Method / VolumeCollection TimeReceived Time12/03/2023 3:48 PM EST Narrative 12/03/2023 3:[address] [facility] ?[address] ? [place] [address] ?XRay Report ? Signed ? Patient: GEOVANNAKAVITA Hines ?MR#: [id number] ?? : 1950 ?Acct:[id number] ?? Age/Sex: 73 / M ?ADM Date: 12/03/23 ?? Loc: RAD ? Attending Dr: Barbie Alcala D.P.M. ? Ordering Physician: Barbie Alcala D.P.M. ?? Date of Service: 12/03/23 ?? Procedure(s): XR foot LT min 3V ?? Accession Number(s): [id number] ? cc: Barbie Alcala D.P.M.; North Gomes M.D. ? [facility] ? [address] ? [place] [address] ? Patient Name: ?? KAVITA AUSTIN ? MRN: [facility]:[id number] ? date: 1950 ?Sex: M ?? Assigned Patient Location: RAD ?? Current Patient Location: RAD ?? Accession/Order Number: [id number] ?? Exam Date: 12/03/2023 ??13:00 ?Report Date: 12/03/2023 ??15:48 ? At the request of: ?? BARBIE ??AJITH ? Procedure: ??XR foot LT min 3V ? EXAM: XR foot LT min 3V ? HISTORY: LEFT FOOT PAIN ? COMPARISON: 11/11/2023 ? TECHNIQUE: 3 views of the left foot were obtained. ? FINDINGS: The circular cast has been removed. Again seen is evidence of prior ?? surgery with fusion at the first metatarsophalangeal joint accompanied by ?? hardware. There is some irregular narrowing of the joint space, without ?? complete osseous fusion. A screw is again seen at the head of the second ?? metatarsal bone. An osteotomy is seen involving the distal aspect of the ?? proximal phalanx of the second digit. ? XR/XR foot LT min 3V ?? IMPRESSION: ? No acute fracture or dislocation. There is been mild progression of the fusion ? at the first metatarsophalangeal joint. Postsurgical changes are otherwise ?? stable, as described. ? Electronically authenticated by: BARBIE ??ETHAN ?? Date: 12/03/2023 ??15:48 ? Dictated By: ?Barbie Hickey M.D. ? Signed By: ?12/03/23 1551 ? DD/ 1548 ? TD/TT: ? Counselor Aid: Procedure Note Radiology, Radiologist, MD - 01/29/[address] [address] XRay Report Signed Patient: KAVITA AUSTIN AMR#: [id number] : 2Acct:[id number] Age/Sex: 73 / MADM Date: 12/03/23 Loc: RAD Attending Dr: Barbie Alcala D.P.M. Ordering Physician: Barbie Alcala D.P.M. Date of Service: 12/03/23 Procedure(s): XR foot LT min 3V Accession Number(s): [id number] cc: Barbie Alcala D.P.M.; North Gomes M.D. [place] [address] Patient Name: KAVITA AUSTIN MRN: [facility]:[id number] date: 1950 Sex: M Assigned Patient [facility]: [facility] Current Patient Location: RAD Accession/Order Number: [id number] Exam Date: 12/03/2023 13:00 Report Date: 12/03/2023 [...] M.D. Signed By:12/03/23 1551 DD/ 1548 TD/TT: Counselor Aid: Authorizing ProviderResult TypeResult StatusGeneric External Data Provider CLINISYNC IMAGINGFinal Result documented in this encounter Visit Diagnoses Not on filedocumented in this encounter Care Teams Team MemberRelationshipSpecialtyStart DateEnd Date North Gomes MD PCP - GeneralFamily Byyjfsnt46/1/233/10/18 North Gomes MD PCP - GeneralFamily Medicine02/04/24 North Gomes MD [address] [place] [address] PCP - [employer]02/24/24documented as of this encounter
--- OUTSIDE RECORDS SUMMARY | 2025-09-30 11:11 | XMS_ITS | Encounter Summary ---
Author Organization [facility] Address [address] [place] [address] Care Team Providers Care Lime Supervisor Name Role Phone North Gomes MD Primary Care Provider [phone] North Gomes MD Primary Care Provider [phone] North Gomes MD Unavailable Encounter Details DateTypeDepartmentCare Team (Latest Contact Info)Fayiskrqixc02/19/2023Clinisync Result Encounter [facility] External Department Unsolicited Provider, [...] relatives?Once a week02/03/2024How often do you attend pentecostal or rastafari services?More than 4 times per year4Do you belong to any clubs or organizations such as pentecostal groups, unions, fraternal or athletic groups, or school groups?Yes02/03/2024How often do you attend meetings of the clubs or organizations you belong to?More than 4 times per year02/03/2024 Are you , , , , never , or living with a partner?Jscyjkt16/11/2024AUDIT-CAnswerDate RecordedQ1: How often do you have a [...] heating?Not hard at all02/03/2024HQ-2AnswerDate RecordedPatient Health Questionnaire-2 Wpnvg396FinT[facility] of Occupational Health - Occupational Stress [...] steady place to sleep or slept in [place] (including now)?No 02/03/2024Sex and Gender InformationValueDate RecordedSex Assigned at BirthNot on fileLegal PwcTzxu6802/06/2023 7:14 PM EDTGender IdentityNot on fileSexual OrientationNot on filedocumented as of this encounter Functional Status * AUDIT-C ScoreAnswerDate of DjyltvlkhkSoiimx212/11/2024 5:49 PM Margarita Generic * Q1: How [...] or more drinks on one occasion?AnswerDate of ZmdctksvjfTcakihZacbs45/11/2024 5:49 PM Margarita Generic * Over the past 2 weeks, how often have you been bothered by any of the following problems?QuestionAnswerDate of AssessmentAuthorLittle interest or pleasure in doing thingsNot at all03/29/2025 2:00 PM Abiola Addison MA Feeling down, depressed, or hopelessNot at all03/29/2025 2:00 PM Abiola Addison MAPatient Health Questionnaire-2 Lpgij989 2:00 PM Abiola Addison MA * QuestionAnswerDate [...] 2:00 PM Abiola Addison MAPatient Health Questionnaire-9 Zfpgr666 2:00 PM Abiola Addison MA documented as of this encounter Plan of Treatment DateTypeDepartmentCare Team (Latest Contact Info)Kfmdidtbgmo91/05/2026 1:45 PM EDTOffice Visit [facility] [address] [place] [address] Miriam Carpenter MD [address] [place] [address] documented as of this encounter Procedures Procedure NamePriorityDate/TimeAssociated DiagnosisCommentsXR FOOT LT MIN 3V 11/12/2023 11:05 AM EST documented in this encounter Results * XR FOOT LT MIN 3V (11/12/2023 11:05 AM EST)Anatomical RegionLateralityModality OtherSpecimen (Source)Anatomical Location / LateralityCollection Method / VolumeCollection TimeReceived Time11/12/2023 11:05 AM EST Narrative 11/12/2023 11:08 AM EST The [facility] ?[address] ? [place] [address] ?XRay Report ? Signed ? Patient: KAVITA AUSTIN ?MR#: [id number] ?? : 1950 ?Acct:[id number] ?? Age/Sex: 73 / M ?ADM Date: 12/18/23 ?? Loc: SURGOUT ? Attending Dr: Alexis NewtonP.MYonatan ? Ordering Physician: Nathan,Lacey D.P.M. ?? Date of Service: 12/18/23 ?? Procedure(s): XR foot LT min 3V ?? Accession Number(s): [id number] ? cc: Lacey Evans D.P.M.; North Gomes M.D. ? [facility] ? [address] ? [place] [address] ? Patient Name: ?? KAVITA AUSTIN ? MRN: [facility]:[id number] ? date: 1950 ?Sex: M ?? Assigned Patient Location: SURGOUT ?? Current Patient Location: SURGOUT ?? Accession/Order Number: [id number] ?? Exam Date: 11/11/2023 ??15:05 ?Report Date: 11/12/2023 ??11:05 ? At the request of: ?? LACEY ??NATHAN ? Procedure: ??XR foot LT min 3V ? EXAM: XR foot LT min 3V ? HISTORY: postop xr pacu ? COMPARISON: 10/08/2023 10/11/2023. ? TECHNIQUE: Routine views of the XR foot LT min 3V ? FINDINGS/ ? XR/XR foot LT min 3V ?? IMPRESSION: ? 1. No acute fractures. Irregular transverse lucency across the base of the ?? first metatarsal most likely artifact. ? 2. Unremarkable soft tissues. ? 3. Revision first MTP arthrodesis. Maintained alignment. No evidence for ?? hardware complication. ? Electronically authenticated by: SALOME ??OLIMPIA ?? Date: 11/12/2023 ??11:05 ? Dictated By: ?Salome Espinosa ? Signed By: ?11/12/23 1108 ? DD/ 1105 ? TD/TT: ? Automotive Teacher: Procedure Note Radiology, Radiologist, - 11/12/2023 [place] [address] XRay Report Signed Patient: KAVITA AUSTIN AMR#: [id number] : 2Acct:[id number] Age/Sex: 73 / MADM Date: 11/11/23 Loc: SURGOUT Attending Dr: Alexis Alcala D.P.M. Ordering Physician: Lacey Evans D.P.M. Date of Service: 11/11/23 Procedure(s): XR foot LT min 3V Accession Number(s): [id number] cc: Lacey Evans D.P.M.; North Gomes M.D. The [place] [id number] Patient Name: KAVITA AUSTIN MRN: [facility]:[id number] date: 1950 Sex: M Assigned Patient Location: SURGOUT Current Patient Location: SURGOUT Accession/Order Number: [id number] Exam Date: 11/11/2023 15:05 Report Date: 11/12/2023 11:05 At the request of: LACEY EVANS Procedure: XR foot LT min 3V [...] 11/12/2023 11:05 Dictated By: Salome Espinosa Signed By:11/12/23 1108 DD/ 1105 TD/TT: Automotive Teacher: Authorizing ProviderResult TypeResult StatusGeneric External Data Provider CLINISYNC IMAGINGFinal Result documented in this encounter Visit Diagnoses Not on filedocumented in this encounter Care Teams Team MemberRelationshipSpecialtyStart DateEnd Date North Gomes MD PCP - GeneralFamily Cwfpvmzt39/1/233 North Gomes MD PCP - GeneralFamily Medicine02/04/24 North Gomes MD [address] [place] [address] [facility] - [employer]4documented as of this encounter
--- OUTSIDE RECORDS SUMMARY | 2025-09-30 11:11 | XMS_ITS | Encounter Summary ---
Author Organization [facility] Address [address] [facility] [place] [address] Care Team Providers Care Audit Lead Name Role Phone North Gomes MD Primary Care Provider [phone] North Gomes MD Unavailable Encounter Details DateTypeDepartmentCare Team (Latest Contact Info)Ueadjztuybm00/16/2024Clinisync Result Encounter [facility] External Department Unsolicited Provider, [...] relatives?Once a week02/03/2024How often do you attend jehovah's witness or rastafarian services?More than 4 times per year4Do you belong to any clubs or organizations such as jehovah's witness groups, unions, fraternal or athletic groups, or school groups?Yes02/03/2024How often do you attend meetings of the clubs or organizations you belong to?More than 4 times per year02/03/2024 Are you , , , , never , or living with a partner?Vprphkg08/11/2024AUDIT-CAnswerDate RecordedQ1: How often do you have a [...] heating?Not hard at all02/03/2024HQ-2AnswerDate RecordedPatient Health Questionnaire-2 Oijzf639FinSt. [facility] of Occupational Health - Occupational Stress [...] steady place to sleep or slept in [place] (including now)?No 02/03/2024Sex and Gender InformationValueDate RecordedSex Assigned at BirthNot on fileLegal LriDxlw5402/06/2023 7:14 PM EDTGender IdentityNot on fileSexual OrientationNot on filedocumented as of this encounter Functional Status * Over the past 2 weeks, how often have you been bothered by any of the following problems?QuestionAnswerDate of AssessmentAuthorLittle interest or pleasure in doing thingsNot at all03/29/2025 2:00 PM Abiola Addison MA Feeling down, depressed, or hopelessNot at all03/29/2025 2:00 PM Abiola Addison MAPatient Health Questionnaire-2 Ymxgr543 2:00 PM Abiola Addison MA * QuestionAnswerDate [...] some wayNot at all03/29/2025 2:00 PM Abiola Adidson MAPatient Health Questionnaire-9 Ziowx609 2:00 PM Abiola Addison MA documented as of this encounter Plan of Treatment DateTypeDepartmentCare Team (Latest Contact Info)Mbpidhdqtls43/05/2026 1:45 PM EDTOffice Visit [facility] [place] [facility] [address] [place] [address] Miriam Carpenter MD [address] [place] [address] documented as of this encounter Procedures Procedure NamePriorityDate/TimeAssociated DiagnosisCommentsXR FOOT LT MIN 3V 02/08/2024 8:46 AM EDT documented in this encounter Results * XR FOOT LT MIN 3V (02/08/2024 8:46 AM EDT)Anatomical RegionLateralityModality OtherSpecimen (Source)Anatomical Location / LateralityCollection Method / VolumeCollection TimeReceived Time02/08/2024 8:46 AM EDT Narrative 02/08/2024 8:49 AM EDT The [facility] ?[address] ? [place] [address] ?XRay Report ? Signed ? Patient: KAVITA AUSTIN ?MR#: [id number] ?? : 1950 ?Acct:[id number] ?? Age/Sex: 73 / M ?ADM Date: 02/06/24 ?? Loc: EC ? Attending Dr: Modesto Roche ? Ordering Physician: Modesto Roche ?? Date of Service: 02/06/24 ?? Procedure(s): XR foot LT min 3V ?? Accession Number(s): [id number] ? cc: Modetso Roche; North Gomes M.D. ? [facility] ? [address] ? [place] [address] ? Patient Name: ?? KAVITA AUSTIN ? MRN: [facility]:[id number] ? date: 1950 ?Sex: M ?? Assigned Patient Location: EC ?? Current Patient Location: LAB ?? Accession/Order Number: [id number] ?? Exam Date: 02/06/2024 ??09:55 ?Report Date: 02/08/2024 ??08:46 ? At the request of: ?? MODESTO ??KALEY ? Procedure: ??XR foot LT min 3V ? PROCEDURE: XR foot LT min 3V ? HISTORY: LEFT FOOT PAIN ? COMPARISON: XR foot left 12/24/2023 ? FINDINGS: ?? BONES:Mechanical fusion of the first metatarsophalangeal joint via dorsal ?? plate ?? and screws. Osteotomy and repair of second metatarsal head. Resection of head ?? of second digit proximal phalanx. ?? SOFT TISSUES:No visible soft tissue swelling. ?? EFFUSION:None visible. ?? OTHER: Negative. ? XR/XR foot LT min 3V ?? IMPRESSION: ? 1. Stable surgical changes without evidence of hardware failure or change in ?? alignment. ?? 2. No acute bone abnormality. ? Electronically authenticated by: LEONARD ??SHAWNA ?? Date: 02/08/2024 ??08:46 ? Dictated By: ?Leonard Toledo M.D. ? Signed By: ?02/08/24 0849 ? DD/ 0846 ? TD/TT: ? Geochemist: Procedure Note Radiology, Radiologist, MD - 02/08/2024 [place] [address] XRay Report Signed Patient: KAVITA AUSTIN AMR#: [id number] : 1950cct:[id number] Age/Sex: 73 / MADM Date: 02/06/24 Loc: EC Attending Dr: Modesto Roche Ordering Physician: Modesto Roche Date of Service: 02/06/24 Procedure(s): XR foot LT min 3V Accession Number(s): [id number] cc: Modesto Roche; North Gomes M.D. The [address] [address] Patient Name: KAVITA AUSTIN MRN: [facility]:[id number] date: 1950 Sex: M Assigned Patient Location: EC Current Patient Location: LAB Accession/Order Number: [id number] Exam Date: 02/06/2024 09:55 Report Date: 02/08/2024 [...] Leonard Toledo M.D. Signed By:02/08/2449 DD/ TD/TT: Geochemist: Authorizing ProviderResult TypeResult StatusGeneric External Data Provider CLINISYNC IMAGINGFinal Result documented in this encounter Visit Diagnoses Not on filedocumented in this encounter Care Teams Team MemberRelationshipSpecialtyStart DateEnd Date North Gomes MD PCP - GeneralFamily Medicine02/04/24 North Gomes MD [address] [place] [address] PCP - [employer]02/24/24documented as of this encounter
--- OUTSIDE RECORDS SUMMARY | 2025-09-30 11:11 | XMS_ITS | Encounter Summary ---
Author Organization [facility] Address [address] [place] [address] Care Team Providers Care Civil Engineering Project Manager Name Role Phone North Gomes MD Primary Care Provider [phone] North Gomes MD Primary Care Provider [phone] North Gomes MD Unavailable Encounter Details DateTypeDepartmentCare Team (Latest Contact Info)Phcdvudtwoi26/30/2024Clinisync Result Encounter [facility] External Department Unsolicited Provider, [...] relatives?Once a week02/03/2024How often do you attend denominational or judaism services?More than 4 times per year4Do you belong to any clubs or organizations such as denominational groups, unions, fraternal or athletic groups, or school groups?Yes02/03/2024How often do you attend meetings of the clubs or organizations you belong to?More than 4 times per year02/03/2024 Are you , , , , never , or living with a partner?Iybxogo92/11/2024AUDIT-CAnswerDate RecordedQ1: How often do you have a [...] heating?Not hard at all02/03/2024HQ-2AnswerDate RecordedPatient Health Questionnaire-2 Cbwjo519FinInd[facility] of Occupational Health - Occupational Stress [...] steady place to sleep or slept in [place] (including now)?No 02/03/2024Sex and Gender InformationValueDate RecordedSex Assigned at BirthNot on fileLegal ImvZjuj8402/06/2023 7:14 PM EDTGender IdentityNot on fileSexual OrientationNot on filedocumented as of this encounter Functional Status * AUDIT-C ScoreAnswerDate of ZignbekpbuEqsdpk534/11/2024 5:49 PM Margarita Generic * Q1: How [...] or more drinks on one occasion?AnswerDate of RzuarkmydhFmwqtiVpkeg45/11/2024 5:49 PM Margarita Generic * Over the past 2 weeks, how often have you been bothered by any of the following problems?QuestionAnswerDate of AssessmentAuthorLittle interest or pleasure in doing thingsNot at all03/29/2025 2:00 PM Abiola Addison MA Feeling down, depressed, or hopelessNot at all03/29/2025 2:00 PM Abiola Addison MAPatient Health Questionnaire-2 Urifn035 2:00 PM Abiola Addison MA * QuestionAnswerDate [...] 2:00 PM Abiola Addison MAPatient Health Questionnaire-9 Rtijb162 2:00 PM Abiola Addison MA documented as of this encounter Plan of Treatment DateTypeDepartmentCare Team (Latest Contact Info)Eqbaowidyzr07/05/2026 1:45 PM EDTOffice Visit [facility] [address] [place] [address] Miriam Carpenter MD [address] [place] [address] documented as of this encounter Procedures Procedure NamePriorityDate/TimeAssociated DiagnosisCommentsXR FOOT LT MIN 3V 12/24/2023 11:19 AM EST documented in this encounter Results * XR FOOT LT MIN 3V (12/24/2023 11:19 AM EST)Anatomical RegionLateralityModality OtherSpecimen (Source)Anatomical Location / LateralityCollection Method / VolumeCollection TimeReceived Time12/24/2023 11:19 AM EST Narrative 12/24/2023 11:22 AM EST [facility] ?[address] ? [place] [address] ?XRay Report ? Signed ? Patient: GEOVANNAKAVITA Hines ?MR#: [id number] ?? : 1950 ?Acct:[id number] ?? Age/Sex: 73 / M ?ADM Date: 12/24/23 ?? Loc: RAD ? Attending Dr: Barbie Alcala D.P.M. ? Ordering Physician: Barbie Alcala D.P.M. ?? Date of Service: 12/24/23 ?? Procedure(s): XR foot LT min 3V ?? Accession Number(s): [id number] ? cc: Barbie Alcala D.P.M.; North Gomes M.D. ? [facility] ? [address] ? [place] [address] ? Patient Name: ?? KAVITA AUSTIN ? MRN: [facility]:[id number] ? date: 1950 ?Sex: M ?? Assigned Patient Location: RAD ?? Current Patient Location: RAD ?? Accession/Order Number: [id number] ?? Exam Date: 12/24/2023 ??09:26 ?Report Date: 12/24/2023 ??11:19 ? At the request of: ?? BARBIE ??AJITH ? Procedure: ??XR foot LT min 3V ? PROCEDURE: XR foot LT min 3V ? COMPARISON: 12/03/2023 ? HISTORY: LEFT FOOT PAIN ? FINDINGS: ?? BONES:Stable dorsal fusion first metatarsal-phalangeal joint with a plate and ?? screws. Remote osteotomy and screw placement at of the second metatarsal. ?? Remote resection head of the second proximal phalanx. Stable degenerative ?? change with joint space narrowing marginal osteophyte formation ?? SOFT TISSUES:Negative. No visible soft tissue swelling. ?? EFFUSION:None visible. ?? OTHER: Negative. ? XR/XR foot LT min 3V ?? IMPRESSION: ? Stable postsurgical changes ? Electronically authenticated by: MARÍA ??BRAYDON ?? Date: 12/24/2023 ??11:19 ? Dictated By: ?María Bryson M.D. ? Signed By: ?12/24/23 1122 ? DD/ 1119 ? TD/TT: ? Tray Service Worker: Procedure Note Radiology, Radiologist, MD - 01/29/2024 [place] [address] XRay Report Signed Patient: KAVITA AUSTIN AMR#: [id number] : 2Acct:[id number] Age/Sex: 73 / MADM Date: 12/24/23 Loc: RAD Attending Dr: Barbie Alcala D.P.M. Ordering Physician: Barbie Alcala D.P.M. Date of Service: 12/24/23 Procedure(s): XR foot LT min 3V Accession Number(s): [id number] cc: Barbie Alcala D.P.M.; North Gomes M.D. The [place] [address] Patient Name: KAVITA AUSTIN MRN: [facility]:[id number] date: 1950 Sex: M Assigned Patient Location: RAD Current Patient Location: RAD Accession/Order Number: [id number] Exam Date: 12/24/2023 09:26 Report Date: 12/24/2023 [...] María Bryson M.D. Signed By:12/24/23 1122 DD/ 1119 TD/TT: Tray Service Worker: Authorizing ProviderResult TypeResult StatusGeneric External Data Provider CLINISYNC IMAGINGFinal Result documented in this encounter Visit Diagnoses Not on filedocumented in this encounter Care Teams Team MemberRelationshipSpecialtyStart DateEnd Date North Gomes MD PCP - GeneralFamily Wvavwwus09/1/233 North Gomes MD PCP - GeneralFamily Medicine02/04/24 North Gomes MD [address] [place] [address] [facility] - [employer]4documented as of this encounter
--- OUTSIDE RECORDS SUMMARY | 2025-09-30 11:13 | XMS_ITS | CCD ---
Author Organization [facility] Care Team Providers Care Welfare Director Name Role Phone [place] Primary Care Physician DO Miguel Astorga Attending Provider MD [place] Primary Care Provider MD Sakina Carpenter Attending Provider [phone] BREANA MULLER Attending Unavailable BREANA MULLER Admitting Unavailable BRAYDON, DR MARÍA Danielle Consulting Unavailable NADERELisa, DR NORTH Hines Primary Care Unavailable BREANA MULLER Consulting Unavailable IRAHETA ., DR HURST Attending [...] NADERER, DR NORTH Hines Primary Care Unavailable TWO RIVERS, DR MARÍA Danielle Consulting Unavailable BARBIE CANSECO [...] ZIEBER, DR RAZ Gonzalez Consulting Unavailable KALEY, BREANA Attending Unavailable KALEY, BREANA Admitting Unavailable NADERER, DR NORTH Hines Primary Care Unavailable KALEY, BREANA Consulting Unavailable KALEY, BREANA Admitting Unavailable NADERER, DR NORTH Hines Primary Care Unavailable KALEY, BREANA Attending Unavailable WEST, DR MARÍA Danielle Consulting Unavailable KALEY, BREANA Consulting Unavailable HIGHLANDER, BARBIE Chávez Attending Unavailable NADERER, DR NORTH Hines Primary Care Unavailable HIGHLANDER, BARBIE Chávez Admitting Unavailable WEST, DR MARÍA Danielle Consulting Unavailable HIGHLANDER, BARBIE Chávez Consulting Unavailable NADERER, DR NORTH Hines Primary Care Unavailable NADERER, DR NORTH Hines Consulting Unavailable NADERER, DR NORTH Hines Attending Unavailable NADERER, DR NORTH Hines Admitting Unavailable KALEY, BREANA Admitting Unavailable NADERER, DR NORTH Hines Primary Care Unavailable KALEY, BREANA Attending Unavailable ZIEBER, DR RAZ Gonzalez Consulting Unavailable KALEY, BREANA Consulting Unavailable KALEY, BREANA Admitting Unavailable NADERER, DR NORTH Hines Primary Care Unavailable KALEY, BREANA Attending Unavailable ZIEBER, DR RAZ Gonzalez Consulting Unavailable KALEY, BREANA Consulting Unavailable [place]in MD Primary Care Provider [place]in MD Unavailable [place]in MD Primary Care Provider NORTH CHAPIN Primary Care Unavailable STEPANIC ENRRIQUE C Attending Unavailable STEPANIC, ENRRIQEU C Admitting Unavailable STEPANICENRRIQUE Attending Unavailable STEPANIC, ENRRIQUE C Admitting Unavailable NADERER, NORTH Hines Primary Care Unavailable [place] MD Primary Care Provider [phone] KAVYA GERMAIN Attending Unavailable NADERER, NORTH Referring Unavailable NADERER, NORTH Primary Care Unavailable NADERELisa, NORTH Referring Unavailable NADERER, NORTH Primary Care Unavailable Natali IRAHETA Attending Unavailable ESEQUIEL, Natali Gonzalez Attending Unavailable Natali IRAHETA Attending Unavailable Natali IRAHETA Attending Unavailable CYN, LOYD Referring Unavailable BRENNAN, ROXANNE Referring Unavailable BRENNAN, ROXANNE Referring Unavailable BRENNAN, ROXANNE Referring Unavailable SHERWIN, MIKE Attending Unavailable BRENNAN, ROXANNE Attending Unavailable BRENNAN, ROXANNE Attending Unavailable BRENNAN, ROXANNE Referring Unavailable BRENNAN, ROXANNE Referring Unavailable BRENNAN, ROXANNE Referring Unavailable BRENNAN, ROXANNE Referring Unavailable BRENNAN, ROXANNE Referring Unavailable CYN, LOYD Referring Unavailable BRENNAN, ROXANNE Referring Unavailable BRENNAN, ROXANNE Referring Unavailable Tavares RUSSELL, North Primary Care Provider Isamar Dominguez APRN Attending Provider CECILIA ANDERSON Attending Unavailable NADERER, NORTH Referring Unavailable NADERER, NORTH Primary Care Unavailable VERHOCECILIA WILSON Attending Unavailable VERHOCECILIA WILSON Referring Unavailable NADERER, NORTH Primary Care Unavailable ADRI ROGER Attending Unavailable TICOERER, NORTH Referring Unavailable NADERER, NORTH Primary Care Unavailable [place]in MD Primary Care Provider [phone] North Chapin MD Primary Care Provider [place] MD Unavailable NORTH CHAPIN Primary Care Unavailable AMERICA AMBROCIO Referring Unavailable NADERER, NORTH Referring Unavailable NADERER, NORTH Primary Care Unavailable AMERICA AMBROCIO Attending Unavailable NADERER, NORTH Referring Unavailable NADERER, NORTH Primary Care Unavailable TAVARES JIMENEZ Attending Unavailable Isamar Dominguez Attending Unavailte e Isamar Dominguez Admitting UnavailNorth Flores MD Primary Care Provider Isamar Dominguez APRN Attending Provider Natali Iraheta MD Attending Provider [place] Chapin MD Attending Provider [phone] JR[address] [employer] GEORGE C Attending UnavailBUD Gonzalez Attending Unavailable NNEKA HERNANDEZ Attending Unavailable SAKINA CARPENTER Attending Unavailable TAVARES, NORTH Attending Unavailable NNEKA HERNANDEZ Attending Unavailable YENNY ROWE Attending Unavailable CECILIA ANDERSON Referring Unavailable FRANCO HARTMAN Attending Unavailable CECILIA ANDERSON Referring Unavailable YENNY ROWE Attending Unavailable CECILIA ANDERSON Referring Unavailable FRANCO HARTMAN Attending Unavailable CECILIA ANDERSON Referring Unavailable SAKINA CARPENTER Attending Unavailable PETITTElda, SAKINA A Attending Unavailable NORTH CHAPIN Attending Unavailable PETLEON, SAKINA A Attending Unavailable NAOMI BELTRE Attending Unavailable CECILIA ANDERSON Referring Unavailable MARY LOU DIANE Attending Unavailable APLINGMARY LOU Referring Unavailable APLINGMARY LOU Attending Unavailable Allergies Allergy ClassificationReported Allergen(s)Allergy TypeDate of OnsetReaction(s) Facility (2 sources)No Known Medication Allergies; Translations: [No Known Medication Allergies]Propensity to adverse reactions to drug (disorder)[facility] Medications Current Medications MedicationDrug Class(es)DatesSig (Normalized)Sig (Original)8 hr acetaminophen 650 mg extended release oral tablet (20 sources)take 1 tablet by mouth every eight hours as neededacetaminophen (Tylenol 8 Hour) 650 MG ER tablet Take 650 mg by mouth every 8 (eight) hours if needed Activeacetaminophen 325 mg / HYDROcodone bitartrate 5 mg oral tablet (1 source)Opioid AgonistStart: 02-28-2025 End: 73-69-8450shcr 1 tablet by mouth every six hours for painHYDROcodone- acetaminophen (Romance) 5-325 MG tablet Indications: Internal derangement of left knee Take 1 tablet by mouth every 6 (six) hours if needed for severe pain for up to 3 days 12 tablet 02/28/2025 03/03/2025 ActiveAspirin (5 sources)Platelet Aggregation Inhibitor, Nonsteroidal Anti-inflammatory Drug Start: 81-76-6371qhvswhf 325 mg, Refills(s) 0 Start Date: 10/28/19 Status: Ordered End: 93-12-2171lham 1 tablet by mouth in the morningaspirin 325 mg tablet Take 1 tablet (325 mg total) by mouth in the morning. 07/10/2025 Discontinued cholecalciferol 0.05 mg oral capsule (20 sources)Vitamin DStart: 11-03-2022 End: 74-31-7668rdrx 1 capsule by mouth in the morningRA Vitamin D-3 50 MCG (1999 UT) capsule Take 2,000 Units by mouth in the morning. 11/03/2022 03/24/2025 Discontinuedchondroitin sulfates 400 mg / glucosamine sulfate 500 mg oral tablet (20 sources)take 1 tablet by mouth in the morningglucosamine-chondroitin 500-400 MG tablet Take 1 tablet by mouth in the morning and 1 tablet in theevening. Activetake 1 tablet by mouth in the morningglucosamine-chondroitin 500-400 mg tablet Take 1 tablet by mouth in the morning and 1 tablet beforebedtime. Active ciprofloxacin 500 mg oral tablet (11 sources)Quinolone AntimicrobialStart: 10-12-2024 End: 31-89-5173gdsf 1 tablet by mouth every twelve hoursCipro 500 mg Tab 500 mg = 1 tab(s), Oral, q12hr, X 30 day(s), # 60 tab(s), Refills(s) 0, Pharmacy: [id number], 189, cm, 10/12/24 15:38:00 EST, Height/Length Dosing, 107, kg, 10/12/24 15:38:00 EST, Weight Dosing Start Date: 10/12/24 Stop Date: 11/11/24 Status: Ordered End: 33-40-7956ohvw 1 tablet by mouth every twelve hoursciprofloxacin (Cipro) 500 MG tablet Take 500 mg by mouth every 12 (twelve) hours 12/24/2024 Disconti nuedDAILY MULTI-VITAMIN ORAL (6 sources)take 1 tablet by mouth once daily in the morningDAILY MULTI-VITAMIN ORAL Take 1 tablet by mouth in the morning. Activetake 1 tablet by mouth once dailyDAILY MULTI-VITAMIN ORAL Take 1 tablet by mouth daily. Ywmhza16 hr dilTIAZem hydrochloride 240 mg extended release oral capsule (20 sources)Calcium Channel BlockerStart: 57-69-7002vjmc 1 capsule by mouth every twenty-four hoursDiltiazem Hcl 240 mg capsule,extended release 24hr Active MG PO September 16, 2025 11:00pm Complieswith drug therapyStart: 59-47-7008nhgw 180 mg by mouth once dailyDiltiazem Hcl Active 180 MG PO Daily April 19, 2022 3:23pmStart: 04-19-2022 End: 31-82-3462qqpt 1 capsule by mouth once dailyDiltiazem Hcl 180 mg capsule,ext.rel 24h degradable Discontinued 180 MG PO Daily April 18, 2022 11:0 0pm September 27, 2025 3:22pm A-fibStart: 42-51-9852Kqsdeioos Diltiazem Start Date: 10/28/19 Status: OrderedStart: 06-10-2018 End: 99-08-0957qrxb 1 capsule by mouth every twenty-four hours in the morning DILT-XR 180 mg 24 hr capsule Take 1 capsule (180 mg total) by mouth in the morning. 06/10/2018 09/01/2025 DiscontinueddilTIAZem CD (CARDIZEM CD) 240 mg 24 hr capsule TAKE 1 CAPSULE ONCE DAILY DIRECTED (THIS IS AN INCREASE) Active DilTIAZem (Eqv-Dilacor XR) 180 mg/24 hours oral capsule, extended release (2 sources)Start: 44-43-2825CjbYAXJhn (Eqv-Dilacor XR) 180 mg/24 hours oral capsule, extended release Refills(s) 0 Start Date: 06/24/23 Status: Ordered doxepin hydrochloride 50 mg oral capsule (20 sources)Tricyclic AntidepressantStart: 10-83-6095gccgqth 25 mg Cap Refills(s) 0 Start Date: 08/21/21 Status: OrderedStart: 08-23-2020 End: 05-84-0444bvyj 1 capsule by mouth once daily at bedtimeDoxepin 50 mg capsule Active 50 MG PO Daily at bedtime April 18, 2022 11:00pm Complies with drug therapyGilberto Diaz (3 sources)Start: 08-94-9169nrdl 1 capsule by mouth once dailyGilberto Diaz Active 1 CAP PO Daily April 19, 2022 3:23pmStart: 21-61-4574jmzl 1 capsule by mouth once dailyTonge Promise Active 1 CAP PO Daily April 19, 2022 12:00amfamotidine 20 mg oral tablet (20 sources)Histamine-2 Receptor Antagonisttake 1 tablet by mouth in the morning famotidine (Pepcid) 20 MG tablet Take 20 mg by mouth in the morning and 20 mg before bedtime. Activeferrous sulfate 325 mg oral tablet (20 sources)take 1 tablet by mouth at mealtimeferrous sulfate 325 (65 Fe) MG tablet Take 325 mg by mouth in the morning. Take with meals. Activefinasteride 5 mg oral tablet (20 sources)5-alpha Reductase InhibitorStart: 06-17-2018 End: 28-88-4701aljk 1 tablet by mouth once dailyfinasteride (Proscar) 5 MG tablet Take 5 mg by mouth Daily 09/05/2022 Activeflecainide acetate 100 mg oral tablet (7 sources)AntiarrhythmicStart: 62-97-8994Xpquwkrcmn 100 mg tablet Active MG PO September 16, 2025 11:00pm Complies with drug therapyfluorouracil 50 mg/ml topical cream (1 source)Nucleoside Metabolic InhibitorStart: 40-63-6383vhrdpyxadsyz (Efudex) 5 % cream Indications: Actinic keratosis Apply to directed areas on the scalptwice a day x 14 days. Dispense 30 day supply but only use for 14 days. 40 g 09/28/2025 ActivelevoFLOXacin 750 mg oral tablet (1 source)Quinolone AntimicrobialStart: 02-22-2025 End: 40-79-1833nfmc 1 tablet by mouth once dailylevoFLOXacin (Levaquin) 750 MG tablet Indications: Upper respiratory tract infection, unspecified type Take 1 tablet (750 mg) by mouth Daily for 7 days 7 tablet 02/22/2025 03/01/2025 Active lisinopril 10 mg oral tablet (20 sources)Angiotensin Converting Enzyme InhibitorStart: 04-21-2025 End: 41-69-9709Vgdhgdmqwd 10 mg tablet Active MG PO September 16, 2025 11:00pm Complies with drug therapyStart: 12-15-2024 End: 91-69-7657hwrfhmoufa 5 MG tablet Take 5 mg by mouth 12/15/2024 06/30/2025 Discontinuedrivaroxaban 20 mg oral tablet (20 sources)Factor Xa InhibitorStart: 04-21-2025 End: 88-00-1112Bkoodrfmyqs (Xarelto) 20 mg tablet Active MG PO September 16, 2025 11:00pm Complies with drug therapyStart: 10-12-2024 End: 98-86-9325Ozpwjsv 20 mg oral tablet 20 mg = 1 tab(s), Refills(s) 0 Start Date: 10/12/24 Status: OrderedrOPINIRole 3 mg oral tablet (20 sources)Nonergot Dopamine AgonistStart: 42-77-1599fvbt 1 tablet by mouth once daily at bedtimeRopinirole 3 mg tablet Active 3 MG PO Daily at bedtime 90 3 September 29, 2025 2:23pm RLS Complies with drug therapyStart: 04-19-2022 End: 91-95-3193xdjp 1 tablet by mouth once daily at bedtimeRopinirole 2 mg tablet Discontinued 2 MG PO Daily at bedtime April 18, 2022 11:00pm September 29, 2025 2:24pm RLSStart: 87-14-6721fgayhtvqmy 1 mg, Oral, Refills(s) 0 Start Date: 10/28/19 Status: Orderedsildenafil 100 mg oral tablet (1 source)Phosphodiesterase 5 InhibitorStart: 00-14-8082iyex 1 tablet by mouth once dailyViagra 100 mg Tab 100 mg = 1 tab(s), Oral, Daily, Take 1 hour prior to sexual relations, # 30 tab(s), Refills(s) 2, Pharmacy: [facility] [facility], 189, cm, 05/07/22 14:58:00 EDT, Height/Length Dosing, 129, kg, 05/07/22 14:58:00 EDT, Weight Dosing Start Date: 05/07/22 Status: Orderedtadalafil 20 mg oral tablet (2 sources)Phosphodiesterase 5 InhibitorStart: 73-72-8191hbce 1 tablet by mouth once dailyCialis 20 mg Tab 20 mg = 1 tab(s), Oral, Daily, # 39 tab(s), Refills(s) 2, Pharmacy: [facility] #[id number], 189, cm, 05/07/22 14:58:00 EDT, Height/Length Dosing, 107, kg, 06/24/23 15:49:00 EDT, Weight Dosing Start Date: 06/24/23 Status: Orderedtamsulosin hydrochloride 0.4 mg oral capsule (20 sources)alpha-Adrenergic BlockerStart: 04-29-5798ignl 1 capsule by mouth once dailyTamsulosin 0.4 mg capsule Active 0.4 MG PO Daily April 18, 2022 11:00pm BPH Complies with drug therapytake 1 capsule by mouth every twenty-four hours in the morningtamsulosin (Flomax) 0.4 MG 24 hr capsule Take 0.4 mg by mouth in the morning. Active Completed/Discontinued Medications MedicationDrug Class(es)DatesSig (Normalized)Sig (Original)Bupivacaine (1 source)Amide Local AnestheticStart: 09-23-2025 End: 49-54-420064 mg, intra-articular, One-Time Injection, Starting on Alesia 09/23/25 at 1421, For 1 doseclindamycin 300 mg oral capsule (6 sources)Lincosamide AntibacterialStart: 09-13-2025 End: 95-06-2075Nwqtmkcyaoy Hcl 300 mg capsule Discontinued MG PO September 16, 2025 11:00pm September 29, 2025 1:48pmdilTIAZem HCL in NaCl,iso-osm 100 mg/100 mL (1 mg/mL) solution (2 sources) End: 50-81-4477oanRUZEud HCL in NaCl,iso-osm 100 mg/100 mL (1 mg/mL) solution dilTIAZem HCl 09/21/2025 Discontinued (Therapy completed)dilTIAZem HCL in NaCl,iso-osm 100 mg/100 mL (1 mg/mL) solution dilTIAZem HCl ActiveEye Promise 1 cap (3 sources)Start: 04-19-2022 End: 00-24-9861vcky 1 capsule by mouth once dailyEye Promise 1 cap Discontinued 1 CAP PO Daily April 18, 2022 11:00pm September 29, 2025 1:50pm eye healthStart: 67-02-8687ecgi 1 capsule by mouth once dailyStart: 70-27-7631jsfl 1 capsule by mouth once dailyEye Promise 1 cap Active 1 CAP PO Daily April 19, 2022 12:00am eye health Complies with drug therapyLidocaine (1 source)Antiarrhythmic, Amide Local AnestheticStart: 09-23-2025 End: 31-63-821498 mg, intra-articular, One-Time Injection, Starting on Alesia 09/23/25 at 1421, For 1 doseLORazepam 0.5 mg oral tablet (9 sources)BenzodiazepineStart: 11-30-2024 End: 04-53-8691rvsd 1 tablet by mouth every hourLORazepam (Ativan) 0.5 MG tablet Indications: Internal derangement of left knee Take 1 tablet (0.5 mg) by mouth See administration instructions for 1 dose take by mouth 1 hour prior to MRI 1 tablet 12/14/2024 12/24/2024 Discontinued1 ml methylPREDNISolone acetate 40 mg/ml injection (5 sources)CorticosteroidStart: 09-23-2025 End: 07-21-701228 mg, One-Time Injection, Starting on Alesia 09/23/25 at 1421, For 1 doseStart: 11-09-2024 End: 05-94-5387mczhlhXPFKJLDojyst acetate (DEPO-Medrol) injection 40 mgStart: 11-09-2024 End: 57-16-466456 mg, Intra-articular, Once PRN Procedure, Starting on 11/09/24 at 1153, For 1 doseomeprazole 40 mg delayed release oral capsule (2 sources)Proton Pump InhibitorStart: 09-21-2020 End: 86-38-4969lfrw 1 capsule by mouth once daily in the morningomeprazole (PriLOSEC) 40 mg capsule take 1 capsule by mouth every morning PRIOR TO BREAKFAST 09/21/2020 07/14/2025 Discontinued (Therapy completed)potassium citrate 99 mg oral tablet (6 sources)Start: 04-19-2022 End: 67-33-4352etyz 1 capsule by mouth at bedtimePotassium Citrate 99 mg Capsule Discontinued 99 MG PO Bedtime April 18, 2022 11:00pm September 29, 2025 1:50pm50 ml sodium bicarbonate 84 mg/ml prefilled syringe (1 source)Start: 09-23-2025 End: mEq, intra-articular, One-Time Injection, Starting on Alesia 09/23/25 at 1421, For 1 dose Problems Active Problems Problem ClassificationProblemDateDocumented DateEpisodic/ChronicAbdominal hernia (1 source)Hernia of abdominal cavityOnset: 28-38-5065GileyzuiIewwapgtf pain (17 sources)Right inguinal pain; Translations: [Right lower quadrant pain]Onset: 747814-85-2522XzxynprbJqckujwn foot deformities (7 sources)Hallux rigidus, left foot; Translations: [Other hammer toe(s) (acquired), left foot]Onset: 06-31-8335WlyjmzgGoonvla disorders (20 sources)Claustrophobia; Translations: [Claustrophobia]Onset: 02-04-2024 29-60-2013ExqtiuiUoeuxad dysrhythmias (20 sources)Atrial fibrillation; Translations: [Paroxysmal atrial fibrillation] Onset: 07-10-2017 Resolved: 678041-23-9102OohvxggCknycxz dysrhythmias (2 sources)Palpitations; Translations: [Palpitations]Onset: 43-52-8345Dndeahhp Diabetes mellitus without complication (20 sources)Prediabetes; Translations: [Prediabetes]Onset: 52-22-4587Auwqsbbe Disorders of lipid metabolism (20 sources)Hyperlipidemia, unspecified; Translations: [Dyslipidemia]Onset: 613961-16-4213CsukfmlFkhazuvfzf disorders (20 sources)Gastro-esophageal reflux disease without esophagitis; Translations: [Gastroesophageal reflux disease without esophagitis]Onset: ChronicEssential hypertension (4 sources)Essential (primary) hypertension; Translations: [Hypertensive disorder]Onset: 44-37-5068NgzkiuiUwtnh valve disorders (1 source)Rheumatic disorders of both mitral and tricuspid valves; Translations: [RHEUMATIC D/O MITRAL TRICUSPID VALV]Onset: 78-82-9251SkuztwhXbvdnhgfvxw of prostate (20 sources)Benign prostatic hypertrophy with outflow obstruction; Translations: [Benign prostatic hyperplasia with lower urinary tract symptoms]Onset: 30-32-2086XwczvzjNxblndlrxowr conditions of male genital organs (8 sources)Chronic prostatitis; Translations: [Chronic prostatitis]Onset: 68-47-3820QjcsohwMklijtxlwocp conditions of male genital organs (7 sources)Epididymitis; Translations: [Epididymitis]Onset: EpisodicJoint disorders and dislocations; trauma-related (7 sources)Derangement of left knee; Translations: [Unspecified internal derangement of left knee]92-55-8233VjcjbvpHqjqj disorders and dislocations; trauma-related (1 source)Other tear of lateral meniscus, current injury, left knee, initial encounter; Translations: [Other tear of lateral meniscus, current injury, left knee, initial encounter]Onset: 40-16-0588WcxqkxljVlwwldaza of unspecified nature or uncertain behavior (5 sources)Neoplastic disease; Translations: [Neoplasm of unspecified behavior of bone, soft tissue, and skin]29-10-7666YhhifmmzJpjh wounds of extremities (7 sources)Laceration without foreign body of left thumb without damage to nail, initial encounter; Translations: [Open wound of left lower leg]Onset: 12-06-2022 EpisodicOsteoarthritis (20 sources)Unspecified osteoarthritis, unspecified site; Translations: [Osteoarthritis of right hip joint]Onset: 04-04-2017 Resolved: 029625-13-9795XvsbqgjNgeuq acquired deformities (1 source)Surgical wound finding; Translations: [Other acquired deformity of head]45-44-1176OwuhzqakEhyar aftercare (1 source)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; Translations: [OTH CUSTODIAL CURRENT DRUG THERAPY]Onset: 61-34-0487BuydtqqaCrzxi aftercare (20 sources)Long-term current use of drug therapy; Translations: [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]Onset: 542568-75-3902HntkumtjJikme and unspecified benign neoplasm (3 sources)Melanocytic nevus of trunk; Translations: [Melanocytic nevi of trunk] 83-49-8659IcfcyvpjGshjr circulatory disease (2 sources)Presence of other cardiac implants and grafts; Translations: [Presence of other cardiac implants and grafts]Onset: 41-43-8068CzsyznyXssun circulatory disease (1 source)Spider nevus; Translations: [Nevus, non-neoplastic]34-31-6612Jbpatden Other circulatory disease (1 source)H/O: atrial fibrillation; Translations: [Personal history of other diseases of the circulatory system]27-05-6527ZrqxbvsiTglra connective tissue disease (2 sources)Presence of right artificial hip joint; Translations: [PRESENCE RIGHT ARTIFICIAL HIP JOINT]Onset: 60-92-6751GvenqhhEuvjp connective tissue disease (4 sources)History of total hip arthroplasty; Translations: [Presence of right artificial hip joint]Onset: 810456-86-0519FibrhraUcuos diseases of kidney and ureters (1 source)Urinary tract obstruction; Translations: [Other obstructive and reflux uropathy]Onset: 76-93-3776CfkhvsjzRriir diseases of veins and lymphatics (4 sources)Svktonkcjs64-98-2949YyzhrapnTiiyh hereditary and degenerative nervous system conditions (1 source)Restless legs syndrome; Translations: [RESTLESS LEGS SYNDROME]Onset: 02-23-8162FxbbwsdFooox hereditary and degenerative nervous system conditions (20 sources)Restless legs; Translations: [Restless legs syndrome]Onset: 023548-10-9767JqgfnoqWfmgi injuries and conditions due to external causes (3 sources)Delayed healing of wound; Translations: [Other injury of unspecified body region, subsequent encounter]49-34-6986CynekkcaUbdll injuries and conditions due to external causes (1 source)Other injury of unspecified body region, initial encounter; Translations: [Other injury of unspecified body region, initial encounter]Onset: 84-44-4127NntlxgysRqydt male genital disorders (8 sources)Male erectile dysfunction, unspecified; Translations: [Erectile dysfunction]Onset: 09-99-3494YnptlaxZweny male genital disorders (4 sources)Ejarnestr06-68-3110OkghkdoLqkvy male genital disorders (4 sources)Impotence of organic zpnheb84-09-1664PkumhxkFhwhl male genital disorders (4 sources)Pain in xdrshaca78-89-8540ErowbrwsCpmus male genital disorders (16 sources)H/O: male genital disorder; Translations: [Personal history of other diseases of male genital organs]Onset: 712495-47-0810DvlaoluvSxnqu non- epithelial cancer of skin (11 sources)History of malignant basal cell neoplasm of skin; Translations: [Personal history of other malignant neoplasm of skin]33-91-4251UwjetyhaWfrih non-traumatic joint disorders (1 source)Hip pain; Translations: [Pain in left hip]53-91-5169VvqmfptnLrcrj non- traumatic joint disorders (1 source)Pain in left hip; Translations: [Pain in left hip]Onset: 09-01-2025 EpisodicOther nutritional; endocrine; and metabolic disorders (1 source)Obesity, unspecified; Translations: [OBESITY UNSPECIFIED]Onset: 03-61-0675WkoqilxCproo nutritional; endocrine; and metabolic disorders (20 sources)Body mass index 30+ - obesity; Translations: [Obesity, unspecified] Onset: 714236-16-0494KgedaeoXpkrb nutritional; endocrine; and metabolic disorders (1 source)Obesity; Translations: [Obesity, unspecified]79-15-1382UdkscmpWxdch screening for suspected conditions (not mental disorders or infectious disease) (20 sources)Patient encounter status; Translations: [Encounter for screening for malignant neoplasm of prostate]Onset: 346235-92-6946FqxrqunqTdsbz skin disorders (5 sources)Seborrheic keratosis; Translations: [Other seborrheic keratosis] 08-13-5000LjpztodpQnkpr skin disorders (5 sources)Lentiginosis; Translations: [Other melanin hyperpigmentation] 88-38-8081MrilfgspAwpwg skin disorders (5 sources)Actinic keratosis; Translations: [Actinic keratosis]08-13-2024 EpisodicResidual codes; unclassified (1 source)Obstructive sleep apnea (adult) (pediatric); Translations: [OBSTRUCTIVE SLEEP APNEA]Onset: 50-22-2492MyijsorTwpyxgho codes; unclassified (20 sources)Obstructive sleep apnea syndrome; Translations: [Obstructive sleep apnea (adult) (pediatric)]Onset: 576328-88-8367VwzjyaiKusiazuv codes; unclassified (6 sources)Sleep apnea; Translations: [Sleep apnea, unspecified]Onset: 486017-53-3319NeelijlSimxgvmb codes; unclassified (8 sources)Family history of malignant neoplasm of kidney; Translations: [Family history of malignant neoplasmof kidney]Onset: 51-79-5132GjioypppZccsphpm codes; unclassified (4 sources)H/O: anticoagulant uffbdxa51-69-6560XwpdcjfjHwxvctrt codes; unclassified (20 sources)Insomnia; Translations: [Insomnia, unspecified]Onset: 02-04-2024 86-64-7450HjcnliwiAyisgnuv codes; unclassified (4 sources)History of arthroscopy of knee joint; Translations: [Other specified postprocedural states]99-07-4782IpwdcpcxWkvafmla codes; unclassified (1 source)Pain, unspecified; Translations: [Pain, unspecified]Onset: 07-15-2025 EpisodicResidual codes; unclassified (1 source)PainOnset: 76-37-2173TuoxxrqtPupo and subcutaneous tissue infections (7 sources)Cellulitis of left knee; Translations: [Cellulitis of left lower limb]Onset: 97-96-3335VxydmyptCflrmzluatz; intervertebral disc disorders; other back problems (20 sources)Lumbar spondylosis; Translations: [Spondylosis without myelopathy or radiculopathy, lumbar region]Onset: 450631-80-2059XuywqnaWdubmrt (1 source)Syncope and collapse; Translations: [SYNCOPE AND COLLAPSE]Onset: 44-22-3108RymxpmrfSrbjtrrpuqqs (1 source)PERSONAL HISTORY OF COVID-19; Translations: [PERSONAL HISTORY OF COVID-19]Onset: 64-05-0565Jsoxdrlpblcf (4 sources)CONTACT W/AND (SUSP) EXPOS COVID-19; Translations: [CONTACT W/AND (SUSP) EXPOS COVID-19]Onset: 42-36-9886Jmgjmiojmohw (1 source)Left knee pain, unspecified -77-1058Shnpfkxmmmar (1 source)Supraventricular tachycardia, unspecified; Translations: [Supraventricular tachycardia, unspecified]Onset: 26-88-9360Qiasbpnsdfkg (3 sources)Delayed healing of woundUnclassified (3 sources)L03.116 - Cellulitis of left lower limb,T14.8XXD - Other injury of unspecified body region, subsequent encounterUnclassified (1 source)Wound CheckOnset: 09-21-2025 Past or Other Problems Problem ClassificationProblemDateDocumented DateEpisodic/ChronicComplications of surgical procedures or medical care (6 sources)Pseudarthrosis after fusion or arthrodesis; Translations: [Pseudarthrosis after fusion or arthrodesis]Onset: 69-99-6209XrolakzdAbswbezlsr associated with dizziness or vertigo (20 sources)Dizziness and giddiness; Translations: [Postural dizziness]Onset: 03-12-2023 Resolved: 70-88-9948UurbomhoF Codes: Cut/pierceb (1 source)Contact with workbench tool, initial encounter; Translations: [CONTACT W/WORKBENCH TOOL INIT ENC]Onset: 74-90-7734EvbytgpiTefuwqvgksuuq and screening for infectious disease (1 source)Encounter for immunization; Translations: [ENCOUNTER FOR IMMUNIZATION] Onset: 15-72-6048CgecrtgnGuwl disorders (16 sources)Mood disordersOnset: 611575-08-4890Hcprm aftercare (1 source)[facility] (current) use of aspirin; Translations: [CUSTODIAL CURRENT USE OF ASPIRIN]Onset: 15-05-2150SkkuxwesTzfsb and unspecified benign neoplasm (1 source)Personal history of colonic polyps; Translations: [PERSONAL HISTORY OF COLONIC POLYPS]Onset: 80-22-2413HmwgbpofTzjdc and unspecified benign neoplasm (2 sources)Skin lesion; Translations: [Hemangioma of skin and subcutaneous tissue]71-87-9211UfsjfxcyAwroe and unspecified benign neoplasm (2 sources)History of polyp of colon; Translations: [History of colonic polyps] Onset: 409435-30-5704ZxaazrduGicqi circulatory disease (2 sources)Personal history of other diseases of the circulatory system; Translations: [Personal history of other diseases of the circulatory system] Onset: 40-51-1648XszcnvdaPhjho connective tissue disease (5 sources)Pain in left foot; Translations: [PAIN IN LEFT FOOT]Onset: 10-08-2022 EpisodicOther connective tissue disease (4 sources)Pain in right foot; Translations: [PAIN IN RIGHT FOOT]Onset: 67-35-6855KfgnyqeeZqtzt connective tissue disease (1 source)Arthrodesis status; Translations: [ARTHRODESIS STATUS]Onset: 19-90-6313SdmtltzmNfflt connective tissue disease (6 sources)Ischial bursitis ; Translations: [Other bursitis of hip, left hip] Onset: 300680-38-8965LvkovxlgBvyre connective tissue disease (2 sources)Pain in left foot; Translations: [Pain in left foot]Onset: 04-21-2025 47-60-6635GbftgxhwJatrj non-traumatic joint disorders (13 sources)Pain in left knee; Translations: [Pain in joint, lower leg]Onset: 067421-40-6163IaihiatuQgfdh non-traumatic joint disorders (1 source)Knee painOnset: 53-17-3509StevjfmwBtxfdzif codes; unclassified (2 sources)Other specified postprocedural states; Translations: [Other specified postprocedural states]Onset: 84-48-9617YmhwerkvQtzrupmmn cerebral ischemia (20 sources)Transient global amnesia; Translations: [Transient global amnesia] Onset: 02-04-2024 Resolved: 829376-07-5212YkpreyzJwtziaagdmem (1 source)CONTACT W/AND (SUSP) EXPOS COVID-19; Translations: [CONTACT W/AND (SUSP) EXPOS COVID-19]Onset: 45-88-0484Kcjpyigrkcur (1 source)Supraventricular tachycardia, unspecified; Translations: [Supraventricular tachycardia, unspecified]Onset: 04-21-2025 Results Test NameValueInterpretationReference RangeFacilityCryotherapy, skin lesionon 07-96-7885QJMT HealthcareLesion biopsyon 32-62-2856Hjte of biopsy: tangential Informed consent: discussed and [...] details: Photo taken Amount of lidocaine used: 1cM[facility] HealthcareType of biopsy: tangential Informed consent: discussed and [...] Photo taken Amount of lidocaine used: 0.5 [facility]$ Large Joint Injection: hip, L hip jointon 63-20-3496DjjskpMORIS Powers 09/23/2025 2:26 PM $ Large Joint Injection: hip, L hip [...] and draped in the usual sterile fashion. MANUALLY TRANSCRIBED KitchonMount St. Mary HospitalAkimbo [facility] HospitalDewellspan chambersburg hospitalement 12-97-3315AjwdОЛЕГ Davis 09/21/2025 10:00 AM Debridement Performed by: ОЛЕГ Davis Authorized by: ОЛЕГ Davis Associated wounds: Wound 09/21/25 1 Traumatic Knee Left;Posterior Consent: Consent obtained: Verbal and written Consent given by: Patient Risks discussed: Yes Debridement Details: Performed by: DIGITAL DESIGNER Type: Sharp Level: Subcutaneous Tissue, Devitalized tissue and other material debrided: Subcutaneous tissue, slough and fibrin Anesthesia administration: topical Anesthesia: EMLA and benzocaine Total Surface Area Debrided cm^2: 2.86 Specimen Taken: None Instrument: Curette Amount of bleeding: Medium Bleeding Control: Pressure Response to treatment: Procedure was tolerated well Tissue Applied?: NoMANUALLY TRANSCRIBED KitchonBarre City HospitalCotopaxi [facility] HospitalActivated partial thromboplastin time (aPTT) in platelet poor plasma by coagulation a Ordered By: Natali Iraheta on 59-43-2685gGRJ Coag (PPP) [Time]36.8 sHigh 22.3-36.2Fire[facility] Regional Medical CenterBasophils Auto (Bld) [#/Vol]Ordered By: Natali Iraheta on 36-70-7531Zioslceop (Bld) [#/Vol]0.0 10 3/uL0.0-0.1 [facility] DaytonBasophils/100 WBC Auto (Bld)Ordered By: Natali Iraheta on 80-15-5928Vfpmcqxca/100 WBC (Bld)0.6 %0.2-2.0[facility] DaytonEosinophils/100 WBC Auto (Bld)Ordered By: Natali Iraheta on 55-04-8768Dlvainkmbca/100 WBC (Bld)5.0 %0.9-7.0[facility] Erythrocyte distribution width Auto (RBC) [Ratio]Ordered By: Natali Iraheta on 15-69-9608Bnhazndgyll distribution width (RBC) [Ratio]12.9 %11.0-15.0[facility] DaytonGlomerular filtration rate (GFR) estimation in non- AmericanOrdered By: Natali Iraheta on 56-22-7665OVA/1.73 sq M.predicted among non-blacks MDRD (S/P/Bld) [Vol rate/Area]55 mL/min/{1.73_m2}Low>=60 mL/min/1.73m 2FDoctors HospitalHematocrit Auto (Bld) [Volume fraction]Ordered By: Natali Iraheta on 39-46-8098Hufhuqolgx (Bld) [Volume fraction]40.0 %Low42.0-54.0[facility] DaytonHemoglobin [Mass/volume] in BloodOrdered By: Natali Iraheta on 84-00-2993Mffwpvfcun (Bld) [Mass/Vol]13.4 g/dLLow14.0-18.0[facility] DaytonINR in Platelet poor plasma by Coagulation assayOrdered By: Natali Iraheta on 34-06-6851PIV Coag (PPP) [Relative time]1.14 {INR}[facility] DaytonComment on above:DESIRED INR:2.0-3.0 CONDITIONS NOT LISTED BELOW2.5-3.5 FOR PROSTHETIC HEART VALVE REPLACEMENT2.5-3.5 RECURRENT THROMBOSISLaboratory - Chemistry and Chemistry - challengeOrdered By: Natali Iraheta on 25-96-3601Ewwhlcj [Mass/Vol] 9.0 mg/dL8.5-10.1FDoctors HospitalChloride [Moles/Vol]105 mmol/L 98-107[facility] DaytonCO2 [Moles/Vol]29.9 mmol/L21.0-32.0 [facility] DaytonCreatinine [Mass/Vol]1.29 mg/dL0.70-1.30 [facility] DaytonGFR/1.73 sq M.predicted MDRD (S/P/Bld) [Vol rate/Area]mL/min/{1.73_m2}>=60 mL/min/1.73m 2FDoctors Hospital Glucose [Mass/Vol]94 mg/bU78-886WzkpskfoiKettering Health DaytonPotassium [Moles/Vol]4.1 mmol/L3.5-5.1FMercy Health Allen Hospitalodium [Moles/Vol] 142 mmol/Y984-293IuawhrgooKettering Health DaytonUrea nitrogen [Mass/Vol]22.0 mg/dLHigh7.0-18.0[facility] DaytonUrea nitrogen/Creatinine [Mass ratio]17.1 mg/mgKettering Health DaytonLaboratory - Hematology and Cell countsOrdered By: Natali Iraheta on 10-76-3986Bsgwyjuj granulocytes/100 WBC (Bld)0.2 %0.0-0.5FDoctors HospitalLeukocytes [#/volume] corrected for nucleated erythrocytes in Blood by Automated counOrdered By: Natali Iraheta on 36-67-5700RUJ corrected for nucl RBC Auto (Bld) [#/Vol]6.6 10 3/uL4.0-11.0[facility] DaytonLymphocytes Auto (Bld) [#/Vol] Ordered By: Natali Iraheta on 71-32-2203Nsqcpdkcpco (Bld) [#/Vol]1.6 10 3/uL 1.2-3.8[facility] DaytonLymphocytes/100 WBC Auto (Bld)Ordered By: Natali Iraheta on 37-19-7276Qeurlvuruyb/100 WBC (Bld)24.9 %20.5-60.0 [facility] DaytonMCH Auto (RBC) [Entitic mass]Ordered By: Natali Iraheta on 53-09-8591QGH (RBC) [Entitic mass]30.5 pg25.9-34.0[facility] DaytonMCHC Auto (RBC) [Mass/Vol]Ordered By: Natali Iraheta on 96-78-2476VGNL (RBC) [Mass/Vol]33.5 g/dL29.9-35.2FDoctors HospitalMCV Auto (RBC) [Entitic vol]Ordered By: Natali Iraheta on 58-46-7470XSH (RBC) [Entitic vol]90.9 fL80.0-94.0[facility] DaytonMonocytes Auto (Bld) [#/Vol]Ordered By: Natali Iraheta on 32-17-2451Tdwbattiw (Bld) [#/Vol]0.5 10 3/uL0.3-0.8[facility] DaytonMonocytes/100 WBC Auto (Bld)Ordered By: Natali Iraheta on 75-72-7865Ewecscmgq/100 WBC (Bld)7.2 % 1.7-12.0[facility] DaytonNeutrophils Auto (Bld) [#/Vol]Ordered By: Natali Iraheta on 39-59-2512Xrryazcxvmv (Bld) [#/Vol]4.1 10 3/uL1.4-6.5 [facility] DaytonNeutrophils/100 WBC Auto (Bld)Ordered By: Natali Iraheta on 91-05-8614Hipjydakqxx/100 WBC (Bld)62.1 %43.0-75.0[facility] DaytonNo Panel InformationOrdered By: Natali Iraheta on 09-88-2214Ljfowdzbzdl # (Auto)0.3 10 3/uL0.0-0.7FDoctors HospitalImmature Granulocyte # (Auto)0.01 10 3/uL0.00-0.03[facility] DaytonPlatelet mean volume Auto (Bld) [Entitic vol]Ordered By: Natali Iraheta on 56-23-8249Nuvjlylr mean volume (Bld) [Entitic vol]10.7 fL9.5-13.5 [facility] DaytonPlatelets Auto (Bld) [#/Vol]Ordered By: Natali Esequiel on 52-42-0874Bhpxqmcdp (Bld) [#/Vol]272 10 3/qY202-777ZlbjamvnwKettering Health DaytonProthrombin time (PT)Ordered By: Natali Esequiel on 71-34-8365DW Coag (PPP) [Time]11.9 sHigh9.0-11.6FDoctors HospitalRBC Auto (Bld) [#/Vol]Ordered By: Natalitasha Iraheta on 98-14-6513QCX (Bld) [#/Vol]4.40 10 6/uLLow4.70-6.10Elyria Memorial Hospitalerum or plasma anion gap determinationOrdered By: Natali Iraheta on 56-65-9814Msoeh gap [Moles/Vol]11.2 mmol/LFDoctors HospitalAerobic Cultureon 61-84-8513Gmntzmr CultureORGANISM: Pasteurella species (O:PASSP) Comments Sent to [facility] for Testing Quantity of Growth Light Growth Organism identified by [facility] Main Lab as Pasteurella stomatis Please see scanned report located in the EMR under the Diagnostics tab -> Scanned Lab Reports -> Laboratory. No Anaerobes Isolated 3 Days Gram Stain Result Rare Epithelial Cells No Bacteria Seen No White Blood Cells Seen PERFORMED BY: [place] [address] PATHOLOGIST DATABASE MODELER ANASTASIA MIRELES M.D.NormalThe Duke Raleigh Hospital Physician GroupComment on above: Performed By: #### AERC #### [facility] [address] [place] [address] USAAerobic cultureOrdered By: Isamar Dominguez on 62-20-9239Eldjjvth identified Aer cx Nom (Unsp spec)Pasteurella speciesAbnormal [facility] DaytonAnaerobic cultureOrdered By: Isamar Farley on 61-21-0426Scoijqmp identified Anaer cx Nom (Unsp spec)No Anaerobes Isolated 3 DaysKettering Health DaytonGram stain microscopyOrdered By: Isamar Dominguez on 80-75-2019Vojtklzgorj observation Gram stain Nom (Unsp spec)[facility] DaytonOrders Onlyon 69-85-3617Rdntgp Only [id number] Oscar Escoto 1950 M Date Provider Department Center 09/02/2025 325-PERRI HEARN [facility] CARD [place] HeartVAS Family History Problem Relation Age of Onset Other Mother Coronary artery disease Mother Other Father Family Status - Relation Status Age at Mother Father DeceasedNormalUniversMemorial HospitalXR HIP LT 2-3 VIEWS W OR WO PELVISon 80-92-1574TH HIP LT 2-3 VIEWS W OR WO [...] Eddie Meeks MD on 09/01/2025 1:27 PMNormalProMedica Salem City Hospital 36on 52-59-021637W/p stress test result from 08/03/2025. Dr. Amin is starting patient on flecainide 100mg bid. Patient informed of normal stress test and will start flecainide. RX sent.NormalUniversity J.W. Ruby Memorial HospitalOrders Onlyon 06-28-2226Ghknhr [id number] Oscar Escoto 1950 M Date Provider Department Center 08/03/2025 [id number], HISTORICAL KATHARINA [facility] Family History Problem Relation Age of Onset Other Mother Coronary artery disease Mother Other Father Family Status - Relation Status Age at Mother Father DeceasedNormalUniMount Carmel Health SystemOffice Visiton 38-44-6632Vahcoy-up [id number] Oscar Escoto 1950 M Date Provider Department Center 07/27/2025 241-ROXANNE AMIN KATHARINA [facility] Family History Problem Relation Age of Onset Other Mother Coronary artery disease Mother Other Father Family Status - Relation Status Age at Mother Father Level of Service:[address] [place] OFFICE/OUTPATIENT ESTABLISHED LOW MDM 20 MINNormal [facility] Medical CenterOrders Onlyon 24-76-7665Efueql [id number] Oscar Escoto 1950 M Date Provider Department Center 07/27/2025 [id number], HISTORICAL CARD [facility] Family History Problem Relation Age of Onset Other Mother Coronary artery disease Mother Other Father Family Status - Relation Status Age at Mother Father DeceasedNoHaywood Regional Medical CenterniMount Carmel Health SystemOrders [id number] Oscar Escoto 1950 M Date Provider Department Center 07/27/2025 ROXANNE MARTINEZ [facility] CARD [place] HeartVAS Family History Problem Relation Age of Onset Other Mother Coronary artery disease Mother Other Father Family Status - Relation Status Age at Mother Father DeceasedSelect Medical Specialty Hospital - Cleveland-FairhillOrders Onlyon 07-12-2025 Orders [id number] Oscar Escoto 1950 M Date Provider Department Center 07/12/2025 325-PERRI HEARN [facility] CARD RI HeartVAS Family History Problem Relation Age of Onset Other Mother Coronary artery disease Mother Other Father Family Status - Relation Status Age at Mother Father DeceasedSelect Medical Specialty Hospital - Cleveland-FairhillUS Scrotum and testicle on 47-83-59[address] [address] Ultrasound Report Signed Patient: OSCAR ESCOTO MR#: [id number] : 1950 Acct:[id number] Age/Sex: 75 / M ADM Date: 07/02/25 Loc: US Attending Dr: North Chapin M.D. Ordering Physician: North Chapin M.D. Date of Service: 07/02/25 Procedure(s): US scrotum Accession Number(s): [id number] cc: North Chapin M.D. [address] [address] Patient Name: OSCAR ESCOTO MRN: [id number] date: 1950 Sex: M Assigned Patient Location: US Current Patient Location: US Accession/Order Number: [id number] Exam Date: 07/02/2025 14:51 Report Date: 07/02/2025 [...] Jr., D.O. 07/02/2025 2:53 PM Dictation Location: [place] [address] Electronically authenticated by: [id number] Y Date: 07/02/2025 14:53 Dictated By: Tariq Lozada M.D. Signed By: 07/02/25 1455 DD/ 145 TD/TT: Liaison Engineer:TBHRadiology, Radiologist, - 07/02/2025 [place] [address] Ultrasound Report Signed Patient: OSCAR ESCOTO MR#: [id number] : 1950 Acct:[id number] Age/Sex: 75 / M ADM Date: 07/02/25 Loc: US Attending Dr: North Chapin M.D. Ordering Physician: North Chapin M.D. Date of Service: 07/02/25 Procedure(s): US scrotum Accession Number(s): [id number] cc: North Chapin M.D. The [address] [address] Patient Name: OSCAR ESCOTO MRN: [id number] date: 1950 Sex: M Assigned Patient Location: US Current Patient Location: US Accession/Order Number: [id number] Exam Date: 07/02/2025 14:51 Report Date: 07/02/2025 [...] Jr., D.O. 07/02/2025 2:53 PM Dictation Location: [place] [address] Electronically authenticated by: [id number] Y Date: 07/02/2025 14:53 Dictated By: Tariq Lozada M.D. Signed By: 07/02/25 1455 DD/ 145 TD/TT: Liaison Engineer: TATE HealthcareRadiology Study observation (narrative)TATE PazUS Scrotum and testicleOrdered By: Radiologist Radiology on 11-32-4776RWVL Healthcare Work Phone: Destr of lesionon 60-80-9279Ksvwvmzgay: simple Destruction method: electrodesiccation and curettage Informed consent: discussed and consent obtained Informed consent comment: The risks of the procedure were discussed, including, but not limited to risks of scarring, darker or sewing machine assembler pigmentary changes, recurrence, infection, and incomplete removal [...] lidocaine used: 2.0 cc Previous accession number: [id number] Hospital and Health ServicesComplexity: simple Destruction method: electrodesiccation and curettage Informed consent: discussed and consent obtained Informed consent comment: The risks of the procedure were discussed, including, but not limited to risks of scarring, darker or sewing machine assembler pigmentary changes, recurrence, infection, and incomplete removal [...] lidocaine used: 2.0 cc Previous accession number: [id number] Hospital and Health ServicesNo Panel Informationon 00-28-4422Drfiir length (cm): 2 Lesion width (cm): 1.7 [...] Additional details: Amount of lidocaine used: 4.0 mlNDallas Regional Medical Center InformationOrdered By: Naomi Hernandez on 97-42-6346CXOO HealthcareOffice Visiton 81-06-5128Qoprjq-up [id number] Oscar Escoto 1950 M Date Provider Department Center 04/21/2025 [id number] COURTNEY Family History Problem Relation Age of Onset Other Mother Coronary artery disease Mother Other Father Family Status - Relation Status Age at Mother Father Level of Service:54437 [place] OFFICE/OUTPATIENT ESTABLISHED MOD MDM 30 [facility] HospitalOrders Onlyon 35-60-2562Pugxjb [id number] Oscar Escoto 1950 M Date Provider Department Center 04/15/2025 [id number], LIS Wu Family History Problem Relation Age of Onset Other Mother Coronary artery disease Mother Other Father Family Status - Relation Status Age at Mother FatherNormalUniMount Carmel Health SystemAmbulatory Visit Summaryon 10-34-5432Gjlrayshqz Visit SummaryAmbulatory Visit Summary OSCAR ESCOTO :1950 [...] Follow Up with ESEQUIEL RUSSELL, Natali Gonzalez, URL When: Comments: sched orchiectomy in September Where: [facility] [address] [place] [phone] Medications What How Much When Why Instructions New doxycycline (doxycycline hyclate 100 mg Tab) 1 Tablets By Mouth 2 times a day Epididymitis Chronic prostatitis Duration: [address] [facility] 9246 Unchanged diltiazem (DilTIAZem (Eqv-Cardizem CD) 240 mg/ [...] physician if questions or concerns Pharmacy Information [facility] 1429: [address] [place], [place] [id number] [phone] Allergies No Known Medication Allergies Problems Ongoing - Any problem that you are currently receiving treatment for. 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 Epididymitis Family history of kidney cancer Hx of mcc use of blood thinners Impotence Organic impotence [...] including vitamins, herbs, eye drops, creams, and pusp-cnj-zgborrf medicines. ??? Any problems you or family [...] 6 hours before yo (more content not included)...[facility], AvonUrology Office/Clinic Noteon 71-47-7641Ruyarga Office/Clinic NoteUrology Office/Clinic Note Chief Complaint 6 [...] 100mg bid x2 wks. Rx sent to [facility]. Avoid sun exposure. Take with probiotics/yogurt daily. [...] IRAHETA MD, URL [facility] [address] [place] [phone] Additional Instructions: sched orchiectomy in September Patient Education Orchiectomy I, Katheryn Fernandez, personally scribed for Dr. Iraheta on 04/05/2025 13:20:08. . Documentation recorded by the scribe, Kahteryn Fernandez, accurately reflects the services(s) I performed and decisions made by me. Authenticated by Dr. Iraheta on 04/05/2025 13:21:22. Problem List/Past Medical History Ongoing 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 Epididymitis Family history of kidney cancer Hx of mcc use of blood thinners Impotence Organic impotence [...] Use:. Never Smokeless Tobacco (more content not included)...[facility], AvonComment on above:Result Comment: Electronically Signed By: Natali IRAHETA MD\.br\Date and Time Signed: 04/05/25 13:21 EDT\.br\Electronically Co-Signed By: Katheryn Fernandez\.br\Date and Time Co-Signed: 04/05/25 13:20 EDTMLR HEMOGLOBIN A1Con 04-03-2025 Glucose [Mass/Vol]114 mg/dLNOMS HeejxijopiKdC3j (Bld) [Mass fraction]5.6 %4.5 - 6.2 %NOMS HealthcareComment on above:ADA RECOMMENDED LIMIT 4.0 - 6.0 ADA THERAPEUTIC TARGET < 7.0 ACTION SUGGESTED > 7.0 CLINISYNCNOMS HealthcareCoding Summaryon 34-03-0343Cqmzyk SummaryHTMLBase 64 AjzcgzbyFWg7fIh+PGhlYWQ+JP7MDSQcS02esJTvjY6bF0TNUNdAPlajTLJGIZyWGaZzbrSoVQ6szIAn ZXJu [file] ZXI (more content not included)...[facility] Rehabilitation Hospitalon 95-29-6738Kwfq of biopsy: tangential Informed consent: discussed and [...] Photo taken Amount of lidocaine used: 1.5 [facility] HealthType of biopsy: tangential Informed consent: discussed and [...] Photo taken Amount of lidocaine used: 1 [facility] HealthType of biopsy: tangential Informed consent: discussed and [...] Photo taken Amount of lidocaine used: [address] [facility] Coding Summaryon 78-72-5004Wkllyi SummaryDELTA COMMUNITY MEDICAL CENTERBase 64 UnpjqotyOOr1wCd+PGhlYWQ+YX8DGOJmC29rpLRiiY5gI6CLGChVYsfqTWGLPHjZFdAasxYuFU9icUAm ZXJu [file] ZXI (more content not included)...NormalWvumedicine Barnesville Hospital HospitalConsent Formson 65-95-9048Cyzhvgo [id number]#1.00OTGTIFFNoSouthwest General Health CenterOutside Recordson 01-87-7354Lidxcol Records [id number]#1.00[facility] Telemetry Stripson 62-06-0366Wljfaqzpl Strips [id number]#1.00[facility] Anesthesia Noteon 02-14-6678Jthlpyanqe NotePatient: OSCAR ESCOTO Age: 74 years Sex: [...] [Verified on: 03/01/2025 12:38 EDT] [facility] HospitalAnesthesia NotePatient: OSCAR ESCOTO Age: 74 years Sex: [...] = 50 mL, 100 mL/hr, IV Piggyback, Bow Maker Gift Wrapping Documented Medications Documented Cartia XT 240 mg/24 [...] list: All Problems Arrhythmia / SNOMED CT 5237718906 / Confirmed Hypertension / SNOMED CT 0977064652 / Confirmed Restless leg syndrome / SNOMED CT 42331238 / Confirmed Sleep apnea / SNOMED CT 030943056 / Confirmed, Active Problems (4) Arrhythmia Hypertension Restless leg syndrome Sleep apnea Histories Family History: Breast cancer Mother Bladder cancer Father Procedure history: Total hip replacement (662750912). Tonsillectomy and adenoidectomy (260038957). Hernia (2489053502). Comments: 02/02/2025 13:25 EDT - NavidrCass RN inguinal and umbilical Toe ([id number]). Comments: 02/02/2025 13:26 EDT - NavidrCass RN [...] % Auto Lymph % 22 % Auto Sussex % 7 % Auto Eos % 2.9 % Auto Baso % 0.7 % Neut Abs# 4.6 x103/mcL Lymph Abs# 1.5 x103/mcL Sussex Abs# 0.5 x103/mcL Eos Abs# 0.2 x103/mcL [...] NA . Radiology results: ECHO, 2020 wnl. Configuration Specialist: stress ekg 2016 wnl. ECG interpretation: Normal sinus rhythm. Plan [place] [employer] Anesthesiologists (ASA) physical status classification: Class III. Anesthetic Preoperative Plan Anesthesia: General. . Anesthetic plan, risks, benefits, and alternatives discussed with the patient and/or family. Risks discussed. Patient verbalized understanding. Informed consent was given. Consent was signed by thepatient. Anesthetic technique: General anesthesia. [Electronically Signed on: 03/01/2025 11:00 EDT] Leroy Zuñiga DO [Verified on: 03/01/2025 11:0 (more content not included)...[facility] HospitalIn[facility] Patient Summaryon 03-01-2025 [place] [address] Patient Discharge Instructions Name: OSCAR ESCOTO : 1950 Patient Address: [address] [place] [address] Primary Care Provider: Name: NORTH CHAPIN After you are discharged if you find you have any questions, please, call [phone] ext [phone] to speak to a nurse. Discharge Diagnosis: Acute lateral meniscus tear of left knee Prescription Information: If you have been given a prescription for narcotics, seek immediate medical attention if you have any difficulty breathing or any sudden status changes such as confusion andsleepiness. If you or anyone you know is experiencing suicidal thoughts, mental health, alcohol and/or drug addiction problems; contact the [facility] 17/06 Crisis Hotline -Text 4HOPE to 594425. If you received any narcotics, sedation, or [...] business decisions or sign any legal documents [facility] would like to thank you for allowing us to assist you with your healthcare needs.The following includes patient education materials and information regarding your injury/illness. OSCAR ESCOTO has been given the following list of follow-up instructions, prescriptions, and patient education materials: Follow-up Instructions With: Address: When: Nneka Hernandez [address] [place] [phone] Business (1) 2025 10:00 AM Medications [...] the level of you (more content not included)...NormalMagruder HospitalMAGR Intraoperative Recordon [id number] Intraoperative RecordMAGR Intra-Op Record Summary Primary Physician: ENRRIQUE WALDROP DO Finalized Date/Time: 03/01/25 12:04:17 Pt. Name: OSCAR ESCOTO AGAPITO De La Cruz/Sex: 1950 MALE Med Rec #: [id number] Physician: ENRRIQUE WALDROP DO Financial #: [id number] Pt. Type: D Room/Bed: / Admit/Disch: 03/01/25 08:45:44 - Institution: Case Times MAGR Entry 1 Patient In Room Time 03/01/25 11:05:00 Out Room Time 03/01/25 11:57:00 Anesthesia Start Time 03/01/25 11:05:00 Stop Time 03/01/25 12:00:00 Surgery Start Time 03/01/25 11:31:00 Stop Time 03/01/25 11:49:00 Last Modified By: Alissa LEOS, Rupinder 03/01/25 12:03:54 Case Attendance MAGR Entry 1 Entry 2 Entry 3 Case Attendee ENRRIQUE WALDROP Christopher J DO Gump RN, Rupinder Role Performed Surgeon - Primary Anesthesiologist of Well Servicing Rig Operator Record Time In 03/01/25 11:05:00 03/01/25 11:05:00 03/01/25 11:05:00 Time Out 03/01/25 11:57:00 03/01/25 11:57:00 03/01/25 11:57:00 Procedure Arthroscopy Knee(Left) Arthroscopy Knee(Left) Arthroscopy Knee(Left) Last Modified By: Alissa RN, Rupinder Maxwell RN, Rupinder Maxwell RN, Rupinder 03/01/25 12:03:50 03/01/25 12:03:50 03/01/25 12:03:50 Entry 4 Entry 5 Case Attendee Felicitas Ramos LATHE MECHANIC Berny LATHE MECHANIC, Sarah GALLAGHER CSFA Role Performed Engine Cleaner Engine Cleaner Time In 03/01/25 11:05:00 03/01/25 11:05:00 Time Out 03/01/25 11:57:00 03/01/25 11:57:00 Procedure Arthroscopy Knee(Left) Arthroscopy Knee(Left) Last Modified By: uRpinder Maxwell RN, RN, Leandra 03/01/25 12:03:50 03/01/25 [...] Labeled Other Concerns n/a Addressed Time Out Jeanyrn Felicianotysonaileen Andrew Time Out Time 03/01/25 11:30:00 Participants DO, Alissa LEOS, Richard Bucio Regina CSFA LATHE MECHANIC, ENRRIQUE WALDROP DO, Berny LATHE MECHANIC, Sarah GALLAGHER CSFA Last Modified By: Rupinder [...] injury related to positi (more content not included)...[facility] PACU Recordon 70-72-3502ESGO PACU RecordMAGR PACU Record Summary Primary Physician: ENRRIQUE WALDROP DO Finalized Date/Time: 03/01/25 12:31:44 Pt. Name: KALEBOSCAR/Sex: 1950 MALE Med Rec #: [id number] Physician: ENRRIQUE WALDROP DO Financial #: [id number] Pt. Type: D Room/Bed: / Admit/Disch: 03/01/25 08:45:44 - Institution: PACU Case Times MAGR Entry 1 In PACU I 03/01/25 12:00:00 Discharge from PACU 03/01/25 12:28:00 I Last Modified By: Hannah Abraham RN 03/01/25 12:31:42 Finalized By: Hannah Abraham RN Document Signatures Signed By: Hannah Abraham RN 03/01/25 12:31No[facility] Postoperative Recordon [id number] Postoperative RecordMAGR Phase II Record Summary Primary Physician: ENRRIQUE WALDROP DO Finalized Date/Time: 03/01/25 13:26:19 Pt. Name: OSCAR ESCOTO/Sex: 1950 MALE Med Rec #: [id number] Physician: ENRRIQUE WALDROP DO Financial #: [id number] Pt. Type: D Room/Bed: / Admit/Disch: 03/01/25 [...] Signatures Signed By: Camden Jones RN 03/01/25 13:26[facility] Preoperative Recordon [id number] Preoperative RecordMA Pre-Op Record Summary Primary Physician: ENRRIQUE WALDROP DO Finalized Date/Time: 03/01/25 13:12:56 Pt. Name: OSCAR ESCOTO/Sex: 1950 MALE Med Rec #: [id number] Physician: ENRRIQUE WALDROP DO Financial #: [id number] Pt. Type: D Room/Bed: / Admit/Disch: 03/01/25 [...] Signatures Signed By: Camden Jones RN 03/01/25 13:12[facility] HospitalPatient Handouton 92-96-0340Ezwktxh HandoutArthroscopic Surgery Discharge Instructions 1.) Keep ice on your knee after surgery. You may use the ice bag provided to you by the [facility] from home. The ice should be [...] someone with you for the rest of today.[facility] HospitalProgress Note - Nurseon 10-20-9473Uzziotsi Note - NurseSpoke with pt and informed him to be at hospital at 0845 and NPO after MN, he verbalizes understanding. [Electronically Signed on: 02/26/2025 09:54 EDT] Miranda Head RN [Verified on: 02/26/2025 09:54 EDT] Miranda Head RNNoBrecksville VA / Crille HospitalCoding Summaryon 14-96-5644Lwguyj SummaryHTMLBase 64 TuhoidleJYx8yLm+PGhlYWQ+TG6XFBHoL45abTWogS8aR3VQYCwAYrrwJMHWUEjFBkVfpeGhUT1hzQTz ZXJu [file] c2U (more content not included)...NormalMagruder HospitalProgress Note - Nurseon 08-79-3264Vjvjkizz Note - NurseDr Fullam reviews pt chart and no new orders were received. [Electronically Signed on: 02/04/2025 12:38 EDT] Miranda Head RN [Verified on: 02/04/2025 12:38 EDT] Miranda Head RNNoBrecksville VA / Crille Hospital36on 76-11-821631Rnvbcyg's says his BP is higher AFTER he takes lisinopril. They are leaving tomorrow to go to [place] for 2 weeks. I think they question [...] track of his BP without, that was ok.[facility]36PER BRENNAN STAY ON 5 MGNormalUniMount Carmel Health System.Auto Diff 1on 74-05-1282Hnpy [place] %7 %Normal-St. [facility]'S HospitalComment on above: Performed By: #### [id number], [id number], [id number] ####[facility] (DEFAULT)[address] [place], [place] [address]Xrjb Abs#0.[address]nu9.0-[address]2 [address] [facility]S HospitalComment on above:Performed By: #### [id number], [id number], [id number] ####[facility] (DEFAULT)[address] [place], [place] [address]Wxevmujad/100 WBC (Bld)0.7 %Normal0.2-2.0[facility] HospitalComment on above: Performed By: #### [id number], [id number], [id number] ####[facility] (DEFAULT)[address] [place] [address] 987[address]Rlb Abs#0.2 p57Tvvytt1.0-0.4 [facility] HospitalComment on above:Performed By: #### [id number], [id number], [id number] ####[facility] (DEFAULT)[address] [place] [address] 475[address]Waovicrpcwt/100 WBC (Bld)2.9 %Normal0.9-4.0[facility] HospitalComment on above:Performed By: #### [id number], [id number], [id number] ####[facility] (DEFAULT)[address] [place] [address] 49324Zcaju Abs#1.5 l63Jsphsu7.3-2.9 [facility] HospitalComment on above:Performed By: #### [id number], 99487568, [id number] ####[facility] (DEFAULT)[address] [place] [address] 794[address]Eselzxqnnff/100 WBC (Bld)22 %Mvbnee61-64Vppjcfro HospitalComment on above: Performed By: #### [id number], [id number], [id number] ####[facility] (DEFAULT)[address] [place] [address] 80443Kcut Abs#0.5 u33Edwuwe6.0-0.8 [facility] HospitalComment on above:Performed By: #### [id number], [id number], [id number] ####[facility] (DEFAULT)[address] [place] [address] 29659Btjo Abs#4.6 c63Amnpvu4.5-9.2Magruder HospitalComment on above:Performed By: #### [id number], [id number], [id number] ####[facility] (DEFAULT)[address] [place] [address] 01211Cfjmlqsktlw/100 WBC (Bld)67 %Bqcgme04-07Kptnbsdr HospitalComment on above:Performed By: #### [id number], [id number], [id number] ####[facility] (DEFAULT)[address] [place] [address] 81871VIL Standardon 47-64-4726rQOU Non AA58 mL/min/1.75v2Hamuemo Interpretation Code [facility]S HospitalComment on above:Performed By: #### [id number], [id number], [id number] ####[facility] (DEFAULT)[address] [place] [address] 44884pSQY AA>60Invalid Interpretation CodeSt. Anthony'S HospitalComment on above: Performed By: #### [id number], 80810921, [id number] ####[facility] (DEFAULT)[address] [place] [address] 24630Vsuns gap [Moles/Vol]12.6 mmol/L Normal5.0-19.0[facility] HospitalComment on above:Performed By: #### 1476613, [id number], [id number] ####[facility] (DEFAULT)[address] [place] [address] 67199Ccnypts [Mass/Vol]9.3 mg/dLNormal8.9-10.3MHenry County Hospital Comment on above:Performed By: #### 4665213, 53197300, [id number] ####[facility] (DEFAULT)[address] [place] [address] 46914Fwluopdr [Moles/Vol]105 mmol/SIhprcy268-338Zjfzutnd HospitalComment on above:Performed By: #### 0498783, 45182662, [id number] ####[facility] (DEFAULT)[address] [place] [address] 05321SL5 [Moles/Vol]24 mmol/ZUrbjmr49-47Fhukbylz Hospital Comment on above:Performed By: #### 6041494, 32777106, [id number] ####[facility] (DEFAULT)[address] [place] [address] 00288Upqxsyqaqv [Mass/Vol] 1.23 mg/dLNormal0.90-1.30[facility] HospitalComment on above:Performed By: #### 5070587, 48909551, [id number] ####[facility] (DEFAULT)[address] [place] [address] 92884Aglaztd [Mass/Vol]103.0 mg/mMUdwumq42.0-118.0 [facility] HospitalComment on above:Performed By: #### 8850503, 94345933, [id number] ####[facility] (DEFAULT)[address] [place] [address] 43912Nsqiuxdown884 mOsm/LInvalid Interpretation CodeWvumedicine [facility]ville Hospital HospitalComment on above:Performed By: #### [id number], 78982585, [id number] ####[facility] (DEFAULT)[address] [place] [address] 19234Qbwgttbqv [Moles/Vol]3.6 mmol/L Normal3.6-5.1Mthe [facility] HospitalComment on above:Performed By: #### 2286030, 84379274, [id number] ####[facility] (DEFAULT)[address] [place] [address] 77146Fyiejr [Moles/Vol]138.0 mmol/KApavgj853.0-144.0[facility] HospitalComment on above:Performed By: #### 2887734, 44608404, [id number] ####[facility] (DEFAULT)[address] [place] [address] 56919Qugo nitrogen [Mass/Vol]23 mg/dLNormal8-26[facility] HospitalComment on above:Performed By: #### 1666694, 69228433, [id number] ####[facility] (DEFAULT)[address] [place] [address] 72138Llpn nitrogen/Creatinine [Mass ratio]18.6 mg/mgHigh4.6-16.2Mthe [facility] HospitalComment on above:Performed By: #### [id number], 30302146, [id number] ####[facility] (DEFAULT)[address] [place] [address] 01868HFE w/ Auto Diffon 81-76-8517Bzitviivqgl distribution width (RBC) [Ratio]14.5 %Iqgkgk40.5-15.0[facility] HospitalComment on above:Performed By: #### 8567919, 66185518, [id number] ####[facility] (DEFAULT)[address] [place] [address] 30326Qofkzhxrcd (Bld) [Volume fraction]42.0 %Normal 34.8-51.9[facility] HospitalComment on above:Performed By: #### 4587449, 31937822, [id number] ####[facility] (DEFAULT)[address] [place] [address] 82894Qruoskvlpc (Bld) [Mass/Vol]14.4 g/yFBumgxg49.8-17.7St[facility]'S HospitalComment on above:Performed By: #### 4650715, 13809878, [id number] ####[facility] (DEFAULT)[address] [place] [address] 85333Zoj Diff?AutoInvalid Interpretation CodeWvumedicine Barnesville Hospital HospitalComment on above:Performed By: #### 9412811, 80477518, [id number] ####[facility] (DEFAULT)[address] [place] [address] 78328QIM (RBC) [Entitic mass]31 gmIdgcyc51-99Gfunkubs Hospital Comment on above:Performed By: #### 6388613, 69937426, [id number] ####[facility] (DEFAULT)[address] [place] [address] 31094OGHO (RBC) [Mass/Vol]34 g/hGEwnplv02-26Vnhxyxyj HospitalComment on above:Performed By: #### 6246611, 55814179, [id number] ####[facility] (DEFAULT)[address] [place] [address] 25633QHB (RBC) [Entitic vol]89 tLDhavuq44-642Dpatiurj Hospital Comment on above:Performed By: #### 3291313, 13424539, [id number] ####[facility] (DEFAULT)[address] [place] [address] 92956Bkqhwzxu970 b13Olonrp 138-427Magruder HospitalComment on above:Performed By: #### 0307973, 09159254, [id number] ####[facility] (DEFAULT)[address] [place] [address] 93257Aldevfae mean volume (Bld) [Entitic vol]9.5 fLNormal6.3-10.2Magruder HospitalComment on above:Performed By: #### 3064244, 26689714, [id number] ####[facility] (DEFAULT)[address] [place] [address] 57874PRX5.71 j08Uykobt0.70-5.30Magruder HospitalComment on above:Performed By: #### 4667773, 86820301, [id number] ####[facility] (DEFAULT)[address] [place] [address] 70636GFE5.9 l97Idgnyu8.5-10.5Magruder HospitalComment on above: Performed By: #### 2182824, 35326755, [id number] ####[facility] (DEFAULT)[address] [place] [address] 31110Ouqpdzvqwtb 01-81-8555Svnupabgh [id number] Oscar Escoto 1950 M Date Provider Department Center 02/02/2025 [facility] Family History Problem Relation Age of Onset Other Mother Coronary artery disease Mother Other Father Family Status - Relation Status Age at Mother FatherNormalUniversity of [address] 44-12-647973Hdxnkju called back to say his BP's are still running a little high. Sometimes around 144-148 systolic, but not often. I advised him to take another 5mg of lisinopril in the afternoon's if BP is elevated. Dr. Amin's note per [facility] says add lisinopril 5-10 . He verbalized understanding and will continue to keep an eye on his BP.[facility]MR KNEE LT WO CONon 20-31[place]7467[place] [address] Magnetic Resonance Report Signed Patient: OSCAR ESCOTO MR#: [id number] : 1950 Acct:[id number] Age/Sex: 74 / M ADM Date: 12/18/24 Loc: MRI Attending Dr: MARY LOU DIANE NP Ordering Physician: MARY LOU DIANE NP Date of Service: 12/18/24 Procedure(s): MR knee LT wo con Accession Number(s): [id number] cc: MARY LOU DIANE DIGITAL DESIGNER; [place] M.D. [place] [id number] Patient Name: OSCAR ESCOTO MRN: [id number] date: 1950 Sex: M Assigned Patient Location: MRI Current Patient Location: MRI Accession/Order Number: [id number] Exam Date: 12/18/2024 13:05 Report Date: 12/18/2024 17:01 At the request of: MARY LOU DIANE Procedure: MR knee LT wo con EXAM: [...] No acute fractures. Electronically authenticated by: BRADLEY JACKSON Date: 12/18/2024 17:01 Dictated By: Bradley Jackson M.D. Signed By: 12/18/241702 DD/ 00 TD/TT: Liaison Engineer:TBHRadiology, Radiologist, - 12/18/2024 [place] [address] Magnetic Resonance Report Signed Patient: OSCAR ESCOTO MR#: [id number] : 1950 Acct:[id number] Age/Sex: 74 / M ADM Date: 12/18/24 Loc: MRI Attending Dr: MARY LOU DIANE DIGITAL DESIGNER Ordering Physician: MARY LOU DIANE NP Date of Service: 12/18/24 Procedure(s): MR knee LT wo con Accession Number(s): [id number] cc: MARY LOU DIANE NP; [place] M.D. [place] [address] Patient Name: OSCAR ESCOTO MRN: [facility]:[id number] date: 1950 Sex: M Assigned Patient Location: MRI Current Patient Location: MRI Accession/Order Number: [id number] Exam Date: 12/18/2024 13:05 Report Date: 12/18/2024 17:01 At the request of: MARY LOU DIANE Procedure: MR knee LT wo con EXAM: [...] Complex tearing of the lateral meniscal body (). 2. Full-thickness chondral loss of the medial femoral condyle measuring 1.4 x 1.7 cm (). 3. High-grade chondral loss of the patellar articular cartilage 4. Prepatellar subcutaneous soft tissue edema. 5. No acute fractures. Electronically authenticated by: BRADLEY JACKSON Date: 12/18/2024 17:01 Dictated By: Bradley Jackson M.D. Signed By: 12/18/241702 DD/ 00 TD/TT: Liaison Engineer: TATE HealthcareRadiology Study observation (narrative)[facility] KNEE LT WO CONOrdered By: Radiologist Radiology on 50-24-7073[facility] Work Phone: Telephoneon [id number] Oscar Escoto 1950 M Date Provider Department Center 12/11/2024 [facility]INA Wu Family History Problem Relation Age of Onset Other Mother Coronary artery disease Mother Other Father Family Status - Relation Status Age at Mother FatherNormalUniMount Carmel Health SystemXR Knee - bilateral AP W standing on 86-59-6777Nkbxerp Result: Standing AP shows no gross evidence of major arthritic process, overall anatomic alignment appeared to be well preserved. There was no acute bony process including but not limited to fracture and/or dislocation. Impression: no gross evidence of major arthritic process or structural damage bilateral knees [facility] Knee - bilateral AP W standingOrdered By: Jr. Waldrop on 93-78-5923M[facility] Work Phone: Office Visiton 27-92-6406Jzggne-up [id number] Oscar Escoto 1950 M Date Provider Department Center 11/10/2024 [facility] KATHARINA Wu Family History Problem Relation Age of Onset Other Mother Coronary artery disease Mother Other Father Family Status - Relation Status Age at Mother Father Level of Service:17640 [place] OFFICE/OUTPATIENT ESTABLISHED LOW MDM 20 [facility] HospitalNo Panel Informationon 71-59-6778RhngnMary Lou Diane NP 11/12/2024 9:12 AM L [...] given by the patient. [facility] K[facility] - bilateral AP W standingon 11-09-2024 Radiology Study observation (narrative)[facility] CenterAmbulatory Visit Summaryon 34-09-4914Eluvqpiwwo Visit SummaryAmbulatory Visit Summary OSCAR ESCOTO Flora [...] to do next Scheduled Follow-Up Appointments Saturday 1:15 PM EDT With: Natali IRAHETA MD Where: [facility] [address] [place] [address]- You Need to Schedule the Following Appointments Follow Up with Natali IRAHETA MD, URL When: Comments: 6 mos Where: [facility] [address], [place] [address]- [phone] Medications What How Much When Instructions New ciprofloxacin (Cipro 500 mg Tab) 1 Tablets By Mouth Every 12 hours Duration: [address] [facility] Unchanged finasteride (finasteride 5 mg [...] physician if questions or concerns Pharmacy Information [facility] 1429: [address] [place], [place] [id number] [phone] Allergies No Known Medication Allergies Problems Ongoing - Any problem that you are currently receiving treatment for. 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 Impotence [...] Allergies Social History Alco (more content not included)...[facility], AvonComment on above:Result Comment: Electronically Signed By: Natali [...] Kavya De Oliveira MD on 10/08/2024 1:54 [facility] Informationon 45-39-1420Rbwq of biopsy: tangential Informed consent: discussed and [...] Photo taken Amount of lidocaine used: 1.0 [facility] HealthNOAL HealthcareXR FOOT LT MIN 3Von 95-79-2958[address] [address] XRay Report Signed Patient: OSCAR ESCOTO MR#: [id number] : 1950 Acct:[id number] Age/Sex: 74 / M ADM Date: 05/06/24 Loc: EC Attending Dr: Barbie Canseco D.P.M. Ordering Physician: Barbie Canseco D.P.M. Date of Service: 05/06/24 Procedure(s): XR foot LT min 3V Accession Number(s): [id number] cc: Barbie Canseco D.P.M.; [place] M.D. [place] [address] Patient Name: OSCAR ESCOTO MRN: [facility]:[id number] date: 1950 Sex: M Assigned Patient Location: Current Patient Location: Accession/Order Number: [id number] Exam Date: 05/06/2024 13:53 Report Date: 05/06/2024 15:49 At the request of: BARBIE CANSECO Procedure: XR foot LT min 3V PROCEDURE: [...] and degenerative changes Electronically authenticated by: MARÍA PITTMAN Date: 05/06/2024 15:49 Dictated By: María Pittman M.D. Signed By: 05/06/24 1552 DD/ 1549 TD/TT: Liaison Engineer:PATIENCEadiology, Radiologist, - 05/06/2024 [place] [address] XRay Report Signed Patient: OSCAR ESCOTO MR#: [id number] : 1950 Acct:[id number] Age/Sex: 74 / M ADM Date: 05/06/24 Loc: EC Attending Dr: Barbie Canseco D.P.M. Ordering Physician: Barbie Canseco D.P.M. Date of Service: 05/06/24 Procedure(s): XR foot LT min 3V Accession Number(s): [id number] cc: Barbie Canseco D.P.M.; [place] M.D. [place] [address] Patient Name: OSCAR ESCOTO MRN: [id number] date: 1950 Sex: M Assigned Patient Location: Current Patient Location: Accession/Order Number: [id number] Exam Date: 05/06/2024 13:53 Report Date: 05/06/2024 15:49 At the request of: BARBIE CANSECO Procedure: XR foot LT min 3V PROCEDURE: [...] and degenerative changes Electronically authenticated by: MARÍA PITTMAN Date: 05/06/2024 15:49 Dictated By: María Pittman M.D. Signed By: 05/06/24 1559 DD/ 1544 TD/TT: Liaison Engineer: T[facility] HealthcareRadiology Study observation (narrative)[facility]OM[facility] HealthcareXR FOOT LT MIN 3VOrdered By: Radiologist Radiology on 24-25-5862IZQR Healthcare Work Phone: mr HEAD/BRAIN WO CONon 27-16-3990[address] [address] Magnetic Resonance Report Signed Patient: OSCAR ESCOTO MR#: [id number] : 1950 Acct:[id number] Age/Sex: 73 / M ADM Date: 03/03/24 Loc: MRI Attending Dr: North Chapin M.D. Ordering Physician: North Chapin M.D. Date of Service: 03/03/24 Procedure(s): MR head/brain wo con Accession Number(s): [id number] cc: North Chapin M.D. The [place] [address] Patient Name: OSCAR ESCOTO MRN: [id number] date: 1950 Sex: M Assigned Patient Location: MRI Current Patient Location: MRI Accession/Order Number: [id number] Exam Date: 03/03/2024 08:45 Report Date: 03/03/2024 [...] or neurodegenerative disease Electronically authenticated by: TARIQ OSUNA Date: 03/03/2024 13:02 Dictated By: Tariq Osuna M.D. Signed By: 03/03/24 1305 DD/ 1302 TD/TT: Liaison Engineer:ANABELHRadiology, Radiologist, MD - 03/03/2024 [place] [address] Magnetic Resonance Report Signed Patient: OSCAR ESCOTO MR#: [id number] : 1950 Acct:[id number] Age/Sex: 73 / M ADM Date: 03/03/24 Loc: MRI Attending Dr: North Chapin M.D. Ordering Physician: North Chapin M.D. Date of Service: 03/03/24 Procedure(s): MR head/brain wo con Accession Number(s): [id number] cc: North Chapin M.D. [place] [id number] Patient Name: OSCAR ESCOTO MRN: [id number] date: 1950 Sex: M Assigned Patient Location: MRI Current Patient Location: MRI Accession/Order Number: [id number] Exam Date: 03/03/2024 08:45 Report Date: 03/03/2024 [...] or neurodegenerative disease Electronically authenticated by: TARIQ OSUNA Date: 03/03/2024 13:02 Dictated By: Tariq Osuna M.D. Signed By: 03/03/24 1305 DD/ 1302 TD/TT: Liaison Engineer: TATE HealthcareRadiology Study observation (narrative)[facility] HEAD/BRAIN WO CONOrdered By: Radiologist Radiology on 12-71-3967[facility] Work Phone: XR FOOT LT MIN 3Von 02-37-3513[place] [address] XRay Report Signed Patient: OSCAR ESCOTO MR#: [id number] : 1950 Acct:[id number] Age/Sex: 73 / M ADM Date: 02/06/24 Loc: EC Attending Dr: Breana Muller Ordering Physician: Breana Muller Date of Service: 02/06/24 Procedure(s): XR foot LT min 3V Accession Number(s): [id number] cc: Breana Muller; North Chapin M.D. The [place] [address] Patient Name: OSCAR ESCOTO MRN: [id number] date: 1950 Sex: M Assigned Patient Location: EC Current Patient Location: LAB Accession/Order Number: [id number] Exam Date: 02/06/2024 09:55 Report Date: 02/08/2024 08:46 At the request of: BREANA MULLER Procedure: XR foot LT min 3V PROCEDURE: [...] No acute bone abnormality. Electronically authenticated by: RAZ MATOS Date: 02/08/2024 08:46 Dictated By: Raz Matos M.D. Signed By: 02/08/24 0849 DD/ TD/TT: Liaison Engineer:TBHRadiology, Radiologist, MD - 02/08/2024 [place] [address] XRay Report Signed Patient: OSCAR ESCOTO MR#: [id number] : 1950 Acct:[id number] Age/Sex: 73 / M ADM Date: 02/06/24 Loc: EC Attending Dr: Breana Muller Ordering Physician: Breana Muller Date of Service: 02/06/24 Procedure(s): XR foot LT min 3V Accession Number(s): [id number] cc: Breana Muller; North Chapin M.D. The [address] [address] Patient Name: OSCAR ESCOTO MRN: [id number] date: 1950 Sex: M Assigned Patient Location: EC Current Patient Location: LAB Accession/Order Number: [id number] Exam Date: 02/06/2024 09:55 Report Date: 02/08/2024 08:46 At the request of: BREANA MULLER Procedure: XR foot LT min 3V PROCEDURE: [...] No acute bone abnormality. Electronically authenticated by: RAZ MATOS Date: 02/08/2024 08:46 Dictated By: Raz Matos M.D. Signed By: 02/08/2449 DD/ 5 TD/TT: Liaison Engineer: TATE HealthcareRadiology Study observation (narrative)[facility] HealthcareXR FOOT LT MIN 3VOrdered By: Radiologist Radiology on 81-31-7189[facility] Work Phone: XR FOOT LT MIN 3Von 14-07-6742[address] [address] XRay Report Signed Patient: OSCAR ESCOTO MR#: [id number] : 1950 Acct:[id number] Age/Sex: 73 / M ADM Date: 12/24/23 Loc: RAD Attending Dr: Barbie Canseco D.P.M. Ordering Physician: Barbie Canseco D.P.M. Date of Service: 12/24/23 Procedure(s): XR foot LT min 3V Accession Number(s): [id number] cc: Barbie Canseco D.P.M.; North Chapin M.D. The [address] [id number] Patient Name: OSCAR ESCOTO MRN: [facility]:[id number] date: 1950 Sex: M Assigned Patient Location: RAD Current Patient Location: RAD Accession/Order Number: [id number] Exam Date: 12/24/2023 09:26 Report Date: 12/24/2023 11:19 At the request of: BARBIE CANSECO Procedure: XR foot LT min 3V PROCEDURE: [...] Stable postsurgical changes Electronically authenticated by: MARÍA PITTMAN Date: 12/24/2023 11:19 Dictated By: María Pittman M.D. Signed By: 12/24/23 1122 DD/ 1119 TD/TT: Liaison Engineer:TBHRadiology, Radiologist, MD - 01/29/[address] [address] XRay Report Signed Patient: OSCAR ESCOTO MR#: [id number] : 1950 Acct:[id number] Age/Sex: 73 / M ADM Date: 12/24/23 Loc: RAD Attending Dr: Barbie Canseco D.P.M. Ordering Physician: Barbie Canseco D.P.M. Date of Service: 12/24/23 Procedure(s): XR foot LT min 3V Accession Number(s): [id number] cc: Barbie Canseco D.P.M.; North Chapin M.D. The [place] [id number] Patient Name: OSCAR ESCOTO MRN: [id number] date: 1950 Sex: M Assigned Patient Location: RAD Current Patient Location: RAD Accession/Order Number: [id number] Exam Date: 12/24/2023 09:26 Report Date: 12/24/2023 11:19 At the request of: BARBIE CANSECO Procedure: XR foot LT min 3V PROCEDURE: [...] Stable postsurgical changes Electronically authenticated by: MARÍA PITTMAN Date: 12/24/2023 11:19 Dictated By: María Pittman M.D. Signed By: 12/24/23 1122 DD/ 1119 TD/TT: Liaison Engineer: T[facility] HealthcareRadiology Study observation (narrative)[facility] HealthcareXR FOOT LT MIN 3VOrdered By: Radiologist Radiology on 49-24-0969[facility] Work Phone: XR FOOT LT MIN 3Von 70-96-6078[address] [address] XRay Report Signed Patient: OSCAR ESCOTO MR#: [id number] : 1950 Acct:[id number] Age/Sex: 73 / M ADM Date: 12/03/23 Loc: RAD Attending Dr: Barbie Canseco D.P.M. Ordering Physician: Barbie Canseco D.P.M. Date of Service: 12/03/23 Procedure(s): XR foot LT min 3V Accession Number(s): [id number] cc: Barbie Canseco D.P.M.; North Chapin M.D. The [place] [address] Patient Name: OSCAR ESCOTO MRN: [id number] date: 1950 Sex: M Assigned Patient Location: RAD Current Patient Location: RAD Accession/Order Number: [id number] Exam Date: 12/03/2023 13:00 Report Date: 12/03/2023 15:48 At the request of: BARBIE CANSECO Procedure: XR foot LT min 3V EXAM: [...] Signed By: 12/03/23 1551 DD/ 1548 TD/TT: Liaison Engineer:TBHRadiology, Radiologist, MD - 01/29/2024 [place] [address] XRay Report Signed Patient: OSCAR ESCOTO MR#: [id number] : 1950 Acct:[id number] Age/Sex: 73 / M ADM Date: 12/03/23 Loc: RAD Attending Dr: Barbie Canseco D.P.M. Ordering Physician: Barbie Canseco D.P.M. Date of Service: 12/03/23 Procedure(s): XR foot LT min 3V Accession Number(s): [id number] cc: Barbie Canseco D.P.M.; North Chapin M.D. The [place] [id number] Patient Name: OSCAR ESCOTO MRN: [id number] date: 1950 Sex: M Assigned Patient Location: [facility] Current Patient Location: RAD Accession/Order Number: [id number] Exam Date: 12/03/2023 13:00 Report Date: 12/03/2023 15:48 At the request of: BARBIE CANSECO Procedure: XR foot LT min 3V EXAM: [...] Signed By: 12/03/23 1551 DD/ 1548 TD/TT: Liaison Engineer: T[facility] HealthcareRadiology Study observation (narrative)[facility] HealthcareXR FOOT LT MIN 3VOrdered By: Radiologist Radiology on 42-88-7049[facility] Work Phone: Fluoroscopy durationon 54-31-0319[address] [address] Fluoroscopy Report Signed Patient: OSCAR ESCOTO MR#: [id number] : 1950 Acct:[id number] Age/Sex: 73 / M ADM Date: 11/11/23 Loc: SURGOUT Attending Dr: Barbie Canseco D.P.M. Ordering Physician: Barbie Canseco D.P.M. Date of Service: 11/11/23 Procedure(s): FL fluoroscopy <1hr NON-READ Accession Number(s): [id number] cc: Barbie Canseco D.P.M.; North Chapin M.D. [place] [id number] Patient Name: OSCAR ESCOTO MRN: [id number] date: 1950 Sex: M Assigned Patient Location: [facility] Current Patient Location: Accession/Order Number: [id number] Exam Date: 11/11/2023 14:36 Report Date: 11/12/2023 08:21 At the request of: BARBIE CANSECO Procedure: FL fluoroscopy <1hr NON-READ EXAM: FL fluoroscopy <1hr NON-READ HISTORY: LEFT FOOT PAIN TECHNIQUE: FINDINGS: Please see Operative Report. Electronically authenticated by: RADIOLOGIST NO Date: 11/12/2023 08:21 Dictated By: AnaRadiologist Signed By: 11/12/23823 DD/ 0 TD/TT: Liaison Engineer:Luis Dillard, - 11/12/2023 [place] [address] Fluoroscopy Report Signed Patient: OSCAR ESCOTO MR#: [id number] : 1950 Acct:[id number] Age/Sex: 73 / M ADM Date: 11/11/23 Loc: SURGOUT Attending Dr: Barbie Canseco D.P.M. Ordering Physician: Barbie Canseco D.P.M. Date of Service: 11/11/23 Procedure(s): FL fluoroscopy <1hr NON-READ Accession Number(s): [id number] cc: Barbie Canseco D.P.M.; North Chapin M.D. [address] [address] Patient Name: OSCAR ESCOTO MRN: [id number] date: 1950 Sex: M Assigned Patient Location: [facility] Current Patient Location: Accession/Order Number: [id number] Exam Date: 11/11/2023 14:36 Report Date: 11/12/2023 08:21 At the request of: BARBIE CANSECO Procedure: FL fluoroscopy <1hr NON-READ EXAM: FL fluoroscopy <1hr NON-READ HISTORY: LEFT FOOT PAIN TECHNIQUE: FINDINGS: Please see Operative Report. Electronically authenticated by: RADIOLOGIST ANA Date: 11/12/2023 08:21 Dictated By: Ana,Radiologist Signed By: 11/12/23823 DD/ 0 TD/TT: Liaison Engineer: [facility] HealthcareRadiology Study observation (narrative)[facility] HealthcareFluoroscopy durationOrdered By: Radiologist Radiology on 17-48-8336[facility] Work Phone: XR FOOT LT MIN 3Von 91-24-1280[place] [address] XRay Report Signed Patient: OSCAR ESCOTO MR#: [id number] : 1950 Acct:[id number] Age/Sex: 73 / M ADM Date: 11/11/23 Loc: SURGOUT Attending Dr: Barbie Canseco D.P.M. Ordering Physician: Lacey Cerrato D.P.M. Date of Service: 11/11/23 Procedure(s): XR foot LT min 3V Accession Number(s): [id number] cc: Lacey Cerrato D.P.M.; North Chapin M.D. [place] [id number] Patient Name: OSCAR ESCOTO MRN: [id number] date: 1950 Sex: M Assigned Patient Location: [facility] Current Patient Location: [facility] Accession/Order Number: [id number] Exam Date: 11/11/2023 15:05 Report Date: 11/12/2023 11:05 At the request of: LACEY CERRATO Procedure: XR foot LT min 3V EXAM: [...] for hardware complication. Electronically authenticated by: SALOME DOAN Date: 11/12/2023 11:05 Dictated By: Salome Doan Signed By: 11/12/23 1108 DD/ 1105 TD/TT: Liaison Engineer:TBHRadiology, Radiologist, MD - 11/12/2023 [place] [address] XRay Report Signed Patient: OSCAR ESCOTO MR#: [id number] : 1950 Acct:[id number] Age/Sex: 73 / M ADM Date: 11/11/23 Loc: SURGOUT Attending Dr: Barbie Canseco D.P.M. Ordering Physician: Lacey Cerrato D.P.M. Date of Service: 11/11/23 Procedure(s): XR foot LT min 3V Accession Number(s): [id number] cc: Lacey Cerrato D.P.M.; North Chapin M.D. The [place] [address] Patient Name: OSCAR ESCOTO MRN: [facility]:[id number] date: 1950 Sex: M Assigned Patient Location: [facility] Current Patient Location: [facility] Accession/Order Number: [id number] Exam Date: 11/11/2023 15:05 Report Date: 11/12/2023 11:05 At the request of: LACEY CERRATO Procedure: XR foot LT min 3V EXAM: [...] for hardware complication. Electronically authenticated by: SALOME DOAN Date: 11/12/2023 11:05 Dictated By: Salome Doan Signed By: 11/12/23 110 DD/ 1105 TD/TT: Liaison Engineer: [facility] HealthcareRadiology Study observation (narrative)[facility] HealthcareXR FOOT LT MIN 3VOrdered By: Radiologist Radiology on 44-20-8169[facility] Work Phone: ECHOCARDIO M/2D COMPLETEon 80-36-6320TOFJMENPNI M/2D COMPLETEPatient: OSCAR ESCOTO Exam Date: 03/12/2023 : 1950 Gender:M Ordering : DR NORTH CHAPIN . Admission #: [id number] Family : ROXANNE AMIN MD Order #: [id number] CLICK HERE TO VIEW EXAM ECHOCARDIOGRAM REPORT [...] by: Enrrique Solorio M.D. on 03/12/2023 at 18:41[facility] CAROTID ART BILon 21-89-7996LF CAROTID ART BILEXAMINATION: US CAROTID ART MOISES [...] >70 >225 >4.0 Electronically authenticated by: MARÍA PITTMAN Date: 2023-03-12 15:01NormalThCleveland Clinic [facility] AUTO DIFFon 73-51-7377DKZQ #0.1 103/ulNormal0.0-0.1The [facility] HospitalComment on above:Performed By: #### CBC #### [facility] [address] [place] [address] [address] Sanjuana KasperBasophils/100 WBC (Bld)0.9 %Normal0.2-2.0The [facility] Comment on above:Performed By: #### CBC #### [facility] [address] [place] [address] [address] Sanjuana Hughes #0.3 103/ulNormal0.0-0.7The [facility] HospitalComment on above: Performed By: #### CBC #### [facility] [address] [place] [address] [address] Sanjuana Chambersosinophils/100 WBC (Bld)5.0 %Normal0.9-7.0The [facility] Comment on above:Performed By: #### CBC #### [facility] [address] [place] [address] Dr. Sanjuana Chambersrythrocyte distribution width (RBC) [Ratio]13.5 %Iekiua91.0-[address]Comment on above:Performed By: #### CBC #### [facility] [address] [place] [address] Dr. Sanjuana KasperHematocrit (Bld) [Volume fraction]41.9 %Critically low42.0-54.0 The [facility] HospitalComment on above:Performed By: #### CBC #### [facility] [address] [place] [address] Dr. Sanjuana KasperHemoglobin (Bld) [Mass/Vol]13.9 g/dLCritically low14.0-18.0The [facility] HospitalComment on above:Performed By: #### CBC #### [facility] [address] [place] [address] Dr. Sanjuana Zavaleta #0.02 10e3/ulNormal0.00-0.03The [facility] HospitalComment on above:Performed By: #### CBC #### [facility] [address] [place] [address] Dr. Sanjuana Zavaleta %0.3 %Normal0.0-0.5The [facility] HospitalComment on above: Performed By: #### CBC #### [facility] [address] [place] [address] Dr. Sanjuana Reeder #1.4 103/ulNormal1.2-3.8The [facility] HospitalComment on above:Performed By: #### CBC #### [facility] [address] [place] [address] Dr. Sanjuana Raineyhocytes/100 WBC (Bld)23.8 %Lrlqia74.5-60.0The [facility] HospitalComment on above:Performed By: #### CBC #### [facility] [address] [place] [address] Dr. Sanjuana WhitakerUAL DIFF REQNONormalThe [facility] HospitalComment on above: Performed By: #### CBC #### [facility] [address] [place] [address] Dr. Sanjuana Osei (RBC) [Entitic mass]29.5 zqJpqzcz11.9-34.0The [facility] HospitalComment on above:Performed By: #### CBC #### [facility] [address] [place] [address] Dr. Sanjuana Osei (RBC) [Mass/Vol]33.2 g/vFWeeusp07.9-35.2The [facility] HospitalComment on above:Performed By: #### CBC #### [facility] [address] [place] [address] Dr. Sanjuana Campos (RBC) [Entitic vol]89.0 gBPuutaw20.0-94.0The [facility] HospitalComment on above:Performed By: #### CBC #### [facility] [address] [place] [address] Dr. Sanjuana Ballesteros #0.4 103/ulNormal0.3-0.8The [facility] HospitalComment on above:Performed By: #### CBC #### [facility] [address] [place] [address] Dr. Sanjuana Avilaocytes/100 WBC (Bld)7.1 %Normal1.7-12.0The [facility] Comment on above:Performed By: #### CBC #### [facility] [address] [place] [address] Dr. Sanjuana Hudson #3.7 103/ulNormal1.4-6.5The [facility] HospitalComment on above:Performed By: #### CBC #### [facility] [address] [place] [address] Dr. Sanjuana Garciautrophils/100 WBC (Bld)62.9 %Tpvgqh89.0-75.0The [facility] HospitalComment on above:Performed By: #### CBC #### [facility] [address] [place] [address] Dr. Yilan ChangPlatelet mean volume (Bld) [Entitic vol]10.6 fLNormal9.5-13.5The [facility] HospitalComment on above:Performed By: #### CBC #### [facility] [address] [place] [address] Dr. Sanjuana KasperPLT259 103/veCudtpg502-187Txn [facility] HospitalComascension borg[facility]pi[facility] hospital on above: Performed By: #### CBC #### [facility] [address] [place] [address] Dr. Sanjuana KasperRBC4.71 106/ulNormal4.70-6.10The [facility] HospitalComment on above:Performed By: #### CBC #### [facility] [address] [place] [address] Dr. Sanjuana KasperWBC5.8 103/ulNormal4.0-11.0The [facility] HospitalComment on above: Performed By: #### CBC #### [facility] [address] [place] [address] Dr. Sanjuana KasperGLYCOHEMOGLOBIN A1Con 81-05-1425ZJV RECOMMENDATIONSEE BELOWWvumedicine Barnesville HospitalComascension borgess-pipp hospital on above:Result Comment: ADA RECOMMENDED LIMIT 4.0 - 6.0 ADA THERAPEUTIC TARGET < 7.0 ACTION SUGGESTED > 7.0Performed By: #### A1C #### [facility] [address] [place] [address] Dr. Sanjuana KasperGlucose [Mass/Vol]108 mg/dLNoTwin City HospitalComascension borgess-pipp hospital on above:Performed By: #### A1C #### [facility] [address] [place] [address] Dr. Sanjuana KasperHbA1c (Bld) [Mass fraction]5.4 %Normal4.5-6.2[facility] HospitalComascension borgess-pi[facility] hospital on above:Performed By: #### A1C #### [facility] [address] [place] [address] Dr. Sanjuana KasperLIPID PROFILEon 83-54-1954QZVX-HDL RATIO NORMSEE BELOWRegency Hospital ToledoComascension borgess-pipp hospital on above:Result Comment: 3.3 - 4.4 LOW RISK 4.4 - 7.1 AVERAGE RISK 7.1 - 11.0 MODERATE RISK >11.0 HIGH RISKPerformed By: #### TSH, LIPID, BMP, LIVER #### [facility] [address] [place] [address] [address] Sanjuana Joséesterol [Mass/Vol]192 mg/dLNormal<=200[facility] Comment on above:Performed By: #### TSH, LIPID, BMP, LIVER #### [facility] [address] [place] [address] [address] Sanjuana Joséesterol in HDL [Mass/Vol]61 mg/dLCritically oglq63-68YxjWilson Street HospitalComment on above:Performed By: #### TSH, LIPID, BMP, LIVER #### [facility] [address] [place] [address] Dr. Sanjuana Joséesterol in LDL [Mass/Vol]122.2 mg/dLNoTwin City HospitalComment on above:Performed By: #### TSH, LIPID, BMP, LIVER #### [facility] [address] [place] [address] Dr. Sanjuana Díaz.total/Cholesterol in HDL [Mass ratio]3.1 {ratio} NormalWilson Street HospitalComment on above:Performed By: #### TSH, LIPID, BMP, LIVER #### [facility] [address] [place] [address] Dr. Sanjuana Guzman NORMAL> or = 60 mg/dl - LOW CARDIOVASCULAR RISK <40 mg/dl - HIGH CARDIOVASCULAR RISKRegency Hospital ToledoComment on above:Performed By: #### TSH, LIPID, BMP, LIVER #### [facility] [address] [place] [address] Dr. Sanjuana KasperLDL CALC NORMALSEE BELOWRegency Hospital ToledoComment on above:Result Comment: <100 mg/dl OPTIMAL 100 - 129 mg/dl NEAR OR ABOVE OPTIMAL 130 - 159 mg/dl BORDERLINE HIGH 160 - 189 mg/dl HIGH >190 mg/dl VERY HIGH Performed By: #### TSH, LIPID, BMP, LIVER #### [facility] [address] [place], [place] [address] Dr. Sanjuana KasperTriglyceride [Mass/Vol]44 mg/dLNormal<=150The [facility] Comment on above:Performed By: #### TSH, LIPID, BMP, LIVER #### [facility] [address] [place] [address] [address] Sanjuana KasperVLDL CALC8.8 mg/dLNormalThe [facility] HospitalComment on above: Performed By: #### TSH, LIPID, BMP, LIVER #### [facility] [address] [place] [address] [address] Sanjuana Nevarez PROFILEon 20-75-6599Obhinfg [Mass/Vol]3.6 g/dLNormal3.4-5.[address] [facility] Hospitalment on above:Performed By: #### TSH, LIPID, BMP, LIVER ####[facility] [address] [place] [address]DrYonatan KasperAlbumin/Globulin [Mass ratio]1.0 {ratio}NormalThe [facility] Comment on above:Performed By: #### TSH, LIPID, BMP, LIVER ####[facility] [address] [place] [address]DrYonatan KasperALP [Catalytic activity/Vol]91 U/STuvlav78-034Dya [facility] Boardman Hospitalment on above:Performed By: #### TSH, LIPID, BMP, LIVER ####[facility] [address] [place] [address]DrYonatan KasperALT [Catalytic activity/Vol]28 U/L Jmmcto39-78Ysz [facility] HospitalComment on above:Performed By: #### TSH, LIPID, BMP, LIVER ####[facility] [address] [place] [address]DrYonatan KasperAST [Catalytic activity/Vol]16 U/TMovhnh30-93Ein [facility] HospitalComment on above:Performed By: #### TSH, LIPID, BMP, LIVER ####[facility] [address] [place] [address]DrYonatan KasperBILI, CONJUGATED0.1 mg/dLNormal0.0-0.2The [facility] HospitalComment on above:Performed By: #### TSH, LIPID, BMP, LIVER ####[facility] [address] [place] [address]Dr. Yilan ChangBilirubin [Mass/Vol]0.4 mg/dLNormal 0.2-1.0The [facility] HospitalComment on above:Performed By: #### TSH, LIPID, BMP, LIVER ####[facility] [address] [place], [place] [address]Dr. Yilan ChangGlobulin (S) [Mass/Vol]3.6 g/dLNormalThe [facility] Comment on above:Performed By: #### TSH, LIPID, BMP, LIVER ####[facility] [address] [place], [place] [address]Dr. Yilan ChangProtein [Mass/Vol]7.2 g/dLNormal6.4-8.2The [facility] HospitalComment on above:Performed By: #### TSH, LIPID, BMP, LIVER ####[facility] [address] [place], [place] [address]Dr. Yilan ChangPROF CHEM 8 (BAS METB)on 03-06-2023 Anion gap [Moles/Vol]12.2 mmol/LNormalThe [facility] HospitalComment on above: Performed By: #### TSH, LIPID, BMP, LIVER ####[facility] [address] [place] [address]Dr. Yilan ChangCalcium [Mass/Vol]9.1 mg/dL Normal8.5-10.1The [facility] HospitalComment on above:Performed By: #### TSH, LIPID, BMP, LIVER ####[facility] [address] [place] [address]Dr. Yilan ChangChloride [Moles/Vol]106 mmol/AFtzbpx18-796Lkj [facility] HospitalComment on above:Performed By: #### TSH, LIPID, BMP, LIVER ####[facility] [address] [place] [address]Dr. Yilan ChangCO2 [Moles/Vol]26.9 mmol/JThfiax43.0-32.0The [facility] on above: Performed By: #### TSH, LIPID, BMP, LIVER ####[facility] [address] [place], [place] [address]Dr. Yilan ChangCreatinine [Mass/Vol]0.98 mg/dLNormal0.70-1.30The [facility] on above:Performed By: #### TSH, LIPID, BMP, LIVER ####[facility] [address] [place], [place] [address]Dr. Yilan ChangEGFR-AF CAMEROONIAN>60Normal>=60The [facility] on above:Performed By: #### TSH, LIPID, BMP, LIVER ####[facility] [address] [place], [place] [address]Dr. Yilan ChangEGFR-NON AF CAMEROONIAN>60Normal>=60The [facility] on above:Performed By: #### TSH, LIPID, BMP, LIVER ####[facility] X[address] [place], [place] [address]Dr. Yilan ChangGlucose [Mass/Vol]94 mg/dNBwthji00-603Ylt [facility] on above:Performed By: #### TSH, LIPID, BMP, LIVER ####[facility] [address] [place], [place] [address]Dr. Yilan ChangPotassium [Moles/Vol]4.1 mmol/LNormal 3.5-5.1The [facility] on above:Performed By: #### TSH, LIPID, BMP, LIVER ####[facility] X[address] [place], [place] [address]Dr. Yilan ChangSodium [Moles/Vol]141 mmol/UPtyqxq720-865Vbq [facility] on above:Performed By: #### TSH, LIPID, BMP, LIVER ####[facility] Fcoykslw[address] [place], [place] [address]Dr. Yilan ChangUrea nitrogen [Mass/Vol]17.0 mg/dLNormal7.0-18.0The [facility] on above:Performed By: #### TSH, LIPID, BMP, LIVER ####[facility] [address] [place], [place] [address]HvYonatan KasperUrea nitrogen/Creatinine [Mass ratio]17.3 mg/mgNoTwin City HospitalComment on above:Performed By: #### TSH, LIPID, BMP, LIVER ####[facility] [address] [place], [place] [address]LwYonatan KasperTSHon 46-53-0764UQL8.951 uIU/mLNormal0.358-3.740The [facility] HospitalComment on above: Performed By: #### TSH, LIPID, BMP, LIVER #### [facility] [address] [address] [address] Sanjuana KasperCT FOOT LT WO CONon 32-15-7945BT FOOT LT WO CONEXAMINATION: CT FOOT LT [...] Electronically authenticated by: RAZ MATOS Date: 2022-12-20 14:53[facility] ToledoPOINT OF CARE GLUCOSEon 58-76-8090Uvawnuw [Mass/Vol]94 mg/dL Oikfdr26-606Wph [facility] HospitalComment on above:Performed By: #### POCGLUC #### [facility] [address] [address] [address] Sanjuana KasperXR FOOT LT 2Von 41-87-4580LS FOOT LT 2VEXAM: XR FOOT LT 2V HISTORY: Pain COMPARISON: 08/01/2022 TECHNIQUE: 31 seconds of fluoroscopy. 9 images FINDINGS: Fluoroscopic images demonstrate fusion of the first metatarsal-phalangeal joint with a dorsal plate and screws. Likely osteotomy and placement of a single screw across the head of the second metatarsal IMPRESSION: First metatarsal-phalangeal joint fusion Electronically authenticated by: MARÍA PITTMAN Date: 2022-09-27 18:28NoTwin City HospitalCovid-19 PCR (CVDTBH)on 59-66-8698MGXW-CoV-2 (COVID-19) RNA DAISY+probe Ql (Unsp spec)Not detectedNormalNOT DETECTEDThe [facility] Comment on above:Result Comment: This test is not yet approved or cleared by the [place] FDA. When there are no FDA-approved or cleared tests available, and other criteria are met, FDA can make tests available under an emergency access mechanism called an Emergency Use Authorization (EUA). The EUA for this test is supported by the [place] of Health and Human Service's (HHS's) declaration [...] symptoms consistent with SARS-CoV-2.Performed By: #### CVDTBH ####[facility] [address] [place], [place] [address]Vu. Carlalan ChangPROF CHEM 8 (BAS METB)on 26-20-4751Hzfza gap [Moles/Vol]11.6 mmol/LNormalThe [facility] HospitalComment on above:Performed By: #### BMP ####[facility] [address] [place], [place] [address]Dg.Sanjuana ChangCalcium [Mass/Vol]8.6 mg/dLNormal8.5-10.1The [facility] HospitalComment on above:Performed By: #### BMP ####[facility] [address] [address]Dr.Yilan ChangChloride [Moles/Vol]107 mmol/OXywzzd14-668Pca [facility] HospitalComment on above:Performed By: #### BMP ####[facility] [address] [place], [place] [address]Dr.Yilan ChangCO2 [Moles/Vol] 26.2 mmol/NOpmiua83.0-32.0The [facility] HospitalComment on above:Performed By: #### BMP ####[facility] [address] [place], [place] [address]Dr.Yilan ChangCreatinine [Mass/Vol]1.28 mg/dLNormal0.70-1.30The [facility] HospitalComment on above:Performed By: #### BMP ####[facility] [address] [place], [place] [address]Dr.Yilan ChangEGFR-AF CAMEROONIAN>60Normal>=60The [facility] HospitalComascension [facility]org[facility] on above:Performed By: #### BMP ####[facility] [address] [place], [place] [address]Dr. Yilan ChangEGFR-NON AF RYUAYVBV51 mL/min/1.98v8Bxhdtihqst low>=60The [facility] HospitalComascension [facility]org[facility] on above:Performed By: #### BMP ####[facility] [address] [place], [place] [address]Dr.Yilan ChangGlucose [Mass/Vol]121 mg/dLCritically hvra99-216Ajb [facility] HospitalComasc[facility] on above: Performed By: #### BMP ####[facility] L[address] [place], [place] [address]Dr.Yilan ChangPotassium [Moles/Vol]3.8 mmol/LNormal 3.5-5.1The [facility] HospitalComment on above:Performed By: #### BMP ####[facility] [address] [place], [place] [address]Dr.Yilan Kasper Sodium [Moles/Vol]141 mmol/FZjzidw914-315Aue [facility] HospitalComment on above: Performed By: #### BMP ####[facility] [address] [place], [place] [address]Dr.Sanjuana ChangUrea nitrogen [Mass/Vol]24.0 mg/dL Critically high7.0-18.0The [facility] HospitalComment on above:Performed By: #### BMP ####[facility] Dorsyfxkjp[address] [place], [place] [address]Dr. Sanjuana ChangUrea nitrogen/Creatinine [Mass ratio]18.8 mg/mgNormalThOhioHealth O'Bleness HospitalComment on above:Performed By: #### BMP ####[facility] [address] [place], [place] [address]Dr.Sanjuana KasperPROTIMEon 09-76-7126EAG Coag (PPP) [Relative time]1.05 {INR}NormalWilson Street Hospital Comment on above:Performed By: #### PTT, PT ####[facility] [address] [place], [place] [address]Dr. Sanjuana KasperINR GUIDELINESSEE BELOWNormal The [facility] HospitalComment on above:Result Comment: DESIRED INR: 2.0 - 3.0 CONDITIONS NOT LISTED BELOW 2.5 - 3.5 FOR PROSTHETIC HEART VALVE REPLACEMENT 2.5 - 3.5 RECURRENT THROMBOSISPerformed By: #### PTT, PT ####[facility] [address] [place], [place] [address]Dr. Sanjuana KasperPT Coag (PPP) [Time]11.3 sNormal9.0-11.6The [facility] HospitalComment on above:Performed By: #### PTT, PT ####[facility] Nrpikxffgl[address] [place], [place] [address]Dr. Carlayazmin RanjithPTTon 32-93-2197xQNT Coag (Bld) [Time]30.[address]w88[address]Comment on above:Performed By: #### PTT, PT ####[facility] Bthcr[address] [place], [place] [address]Dr. Sanjuana RanjithXR FOOT MOISES MIN 3 VIEWSon 39-43-5706OR FOOT MOISES MIN 3 VIEWSEXAMINATION: XR FOOT [...] midfoot degenerative change Electronically authenticated by: MARÍA PITTMAN Date: 2022-08-01 17:51NoTwin City HospitalCovid-19 PCR (CVDTBH)on 76-93-3882ISSX-CoV-2 (COVID-19) RNA DAISY+probe Ql (Unsp spec)Not detectedNormalNOT DETECTEDThe [facility] Comment on above:Result Comment: This test is not yet approved or cleared by the [place] FDA. When there are no FDA-approved or cleared tests available, and other criteria are met, FDA can make tests available under an emergency access mechanism called an Emergency Use Authorization (EUA). The EUA for this test is supported by the [place] of Health and Human Service's (HHS's) declaration [...] symptoms consistent with SARS-CoV-2.Performed By: #### CVDTBH #### [facility] [address] [place] [address] Dr. Sanjuana KasperBasophils Auto (Bld) [#/Vol]Ordered By: Miguel Astorga on 68-45-0319Tqjasvxmq (Bld) [#/Vol]0.1 10*3/uL0.0-0.2FDoctors HospitalBasophils/100 WBC Auto (Bld)Ordered By: Miguel Astorga on 04-19-2022 Basophils/100 WBC (Bld)0.9 %[facility] DaytonBlood hemoglobin measurement (mass/volume)Ordered By: Miguel Astorga on 19-93-7855Yvcfbfiakj (Bld) [Mass/Vol]14.3 g/dL13.0-17.0[facility] DaytonBlood leukocytes automated count (number/volume)Ordered By: Miguel Astorga on 79-20-2078AFB (Bld) [#/Vol]5.5 10*3/uL4.5-11.0[facility] COVID-19 Positive/NegativeOrdered By: Miguel Astorga on 90-59-2819LHMU-CoV-2 (COVID-19) N gene DAISY+probe Ql (Resp)NegativeNegativeKettering Health DaytonComment on above:Testing for SARS-CoV-2 by RT-PCR This test was developed and its performance characteristics determined by [employer] and validated at the [facility]. [...] By: Miguel Astorga on 04-19-2022 Creatinine [Mass/Vol]1.13 mg/dL0.64-1.27[facility] Eosinophils Auto (Bld) [#/Vol]Ordered By: Miguel Astorga on 04-19-2022 Eosinophils (Bld) [#/Vol]0.2 10*3/uL0.0-0.45[facility] Eosinophils/100 WBC Auto (Bld)Ordered By: Miguel Astorga on 04-19-2022 Eosinophils/100 WBC (Bld)3.9 %[facility] DaytonErythrocyte distribution width Auto (RBC) [Ratio]Ordered By: Miguel Astorga on 04-19-2022 Erythrocyte distribution width (RBC) [Ratio]14.1 %12.0-14.8[facility] DaytonEstimated glomerular filtration rate (GFR) non- Ordered By: Miguel Astorga on 03-58-1087EQU/1.73 sq M.predicted among non- blacks MDRD (S/P/Bld) [Vol rate/Area]> 60 mL/MinKettering Health DaytonHematocrit Auto (Bld) [Volume fraction]Ordered By: Miguel Astorga on 25-38-0184Pjvflzfyfo (Bld) [Volume fraction]43.0 %38.8-50.0[facility] DaytonLaboratory - Hematology and Cell countsOrdered By: Miguel Astorga on 52-90-0482Pcmhvbaky RBC/100 WBC (Bld) [Ratio]0.1 %0-0.5FDoctors HospitalLymphocytes Auto (Bld) [#/Vol]Ordered By: Miguel Astorga on 18-20-5899Vfshkijehev (Bld) [#/Vol]1.4 10*3/uL1.00-4.8[facility] DaytonLymphocytes/100 WBC Auto (Bld)Ordered By: Miguel Astorga on 04-19-2022 Lymphocytes/100 WBC (Bld)25.7 %[facility] DaytonMCH Auto (RBC) [Entitic mass]Ordered By: Miguel Astorga on 43-06-8271EOT (RBC) [Entitic mass] 29.9 pg27.5-35.2FDoctors HospitalMCHC Auto (RBC) [Mass/Vol] Ordered By: Miguel Astorga on 21-33-7985EBGS (RBC) [Mass/Vol]33.3 g/dL32.5-35.6 [facility] DaytonMCV Auto (RBC) [Entitic vol]Ordered By: Miguel Astorga on 49-70-0531WJM (RBC) [Entitic vol]89.8 fL83.5-101[facility] DaytonMonocytes Auto (Bld) [#/Vol]Ordered By: Miguel Astorga on 39-39-4388Whfzzwrni (Bld) [#/Vol]0.4 10*3/uL0.0-0.8[facility] DaytonMonocytes/100 WBC Auto (Bld)Ordered By: Miguel Astorga on 04-19-2022 Monocytes/100 WBC (Bld)6.9 %[facility] DaytonNeutrophils Auto (Bld) [#/Vol]Ordered By: Miguel Astorga on 54-05-3204Xyvfoorqczu (Bld) [#/Vol] 3.5 10*3/uL1.8-7.7FDoctors HospitalNeutrophils/100 WBC Auto (Bld)Ordered By: Miguel Astorga on 54-33-3397Mnufkvfntnn/100 WBC (Bld)62.6 % [facility] DaytonNo Panel InformationOrdered By: Miguel Astorga on 74-59-8980Xuuoozypu GFR ()> 60 mL/MinKettering Health DaytonComment on above:GFR estimated reference range: According to KDOQI guidelines, <60 ml/min/1.73m2 is sufficient todiagnose a patient with chronic kidney disease.Pharmacy Creatinine Clearance (ChemN/[facility] HospitalPlatelet mean volume Auto (Bld) [Entitic vol]Ordered By: Miguel Astorga on 94-37-2906Jzrxeidu mean volume (Bld) [Entitic vol]8.9 fL6.6-10.1FDoctors HospitalPlatelets Auto (Bld) [#/Vol]Ordered By: Miguel Astorga on 86-40-3820Uhexkbzmy (Bld) [#/Vol]260 10*3/sG168-867AexjjalvaKettering Health DaytonRBC Auto (Bld) [#/Vol]Ordered By: Miguel Astorga on 45-38-2080AJQ (Bld) [#/Vol]4.79 10*6/uL3.90-5.60[facility] Hospitalerum or plasma calcium measurement (mass/volume)Ordered By: Miguel Astorga on 04-19-2022 Calcium [Mass/Vol]9.1 mg/dL8.2-10.2FMercy Health Allen Hospitalerum or plasma chloride measurement (moles/volume)Ordered By: Miguel Astorga on 91-56-8099Toswxekd [Moles/Vol]103 mmol/J30-452RifevgwdlKettering Health Dayton Serum or plasma glucose measurement (mass/volume)Ordered By: Miguel Astorga on 57-68-4298Rmwirbo [Mass/Vol]102 mg/pJ19-383ApvgaqhlqKettering Health Dayton Comment on above:ADA recommended reference range Random Glucose Reference Range is dependent on time and content of last meal. Glucose of more than 200 mg/dL in a nonstressed, ambulatory subject supports the diagnosis of Diabetes Mellitus.Serum or plasma potassium measurement (moles/volume)Ordered By: Miguel Astorga on 24-79-2691Vjwzttsmu [Moles/Vol]4.2 mmol/L3.5-5.1FMercy Health Allen Hospitalerum or plasma sodium measurement (moles/volume)Ordered By: Miguel Astorga on 60-75-5562Puynfe [Moles/Vol]137 mmol/W732-545DsdilfbipElyria Memorial Hospitalerum or plasma total carbon dioxide measurement (moles/volume)Ordered By: Miguel Astorga on 83-40-0530NO9 [Moles/Vol]25.0 mmol/L22.0-30.0[facility] Hospitalerum or plasma urea nitrogen measurement (mass/volume)Ordered By: Miguel Astorga on 04-19-2022 Urea nitrogen [Mass/Vol]18 mg/dL9-23[facility] Vital Signs Date TimeVital SignValuePerforming TykjwbaawXzzjkolo02-28-5097 13:47-0500Body huenya906.96 cmNorth Chapin MD Work Phone: [facility]11-05-2025 13:47-0500 Body mass index (BMI) [Ratio]32.1 kg/m2North Chapin MD Work Phone: [facility]11-05-2025 13:47-0500 Body vprldchoyjv34.1 [degF]North Chapin MD Work Phone: [phone]11-05-2025 13:47-0500 Body twnuzb309.39 kgNorth Chapin MD Work Phone: [phone])608-[facility]11-05-2025 13:47-0500 Diastolic blood wngupdsc96 mm[Hg]North Chapin MD Work Phone: [phone]11-05-2025 13:47-0500 Heart rate70 /minNorth Chapin MD Work Phone: [phone])[address]11-05-2025 13:47-0500 Respiratory rate20 /minNorth Chapin MD Work Phone: [phone])[address]11-05-2025 13:47-0500 SaO2% (BldA) [Mass fraction]94 %North Chapin MD Work Phone: 1([phone])234-[address] [place], [place] [address]11-05-2025 13:47-0500 Systolic blood edpcaoyv541 mm[Hg]North Chapin MD Work Phone: [facility]10-30-2025 14:13-0400 Body deulwz073 cmSimone O'Drobinak PA Work Phone: [facility]10-30-2025 14:13-0400Body mass index (BMI) [Ratio]32.1 kg/o6Drtkga O'Drobinak PA Work Phone: [facility]10-30-2025 14:13-0400Body eellcc022.4 kgSimone O'Drobinak PA Work Phone: [facility]10-28-2025 08:42-0400Body skteagyfxwo10.01 [degF]Adri DENNEY Work Phone: [facility]10-28-2025 08:42-0400Diastolic blood hxmgtuhi78 mm[Hg]Adri Artesia STOCK TRACER-SLOT OPERATIONS MANAGER Work Phone: [facility]10-28-2025 08:42-0400Heart rate 74 /minAdri Roger APRN-SLOT OPERATIONS MANAGER Work Phone: [facility]10-28-2025 08:42-0400 Respiratory rate18 /minAdri Roger APRN-SLOT OPERATIONS MANAGER Work Phone: [facility]10-28-2025 08:42-0400Systolic blood izpzjplw863 mm[Hg]Adri Roger APRN-SLOT OPERATIONS MANAGER Work Phone: [facility]10-24-2025 14:52-0400Body qzlspu369.96 cmNorth Chapin MD Work Phone: [phone]10-24-2025 14:52-0400 Body mass index (BMI) [Ratio]33 kg/m2North Chapin MD Work Phone: [phone]10-24-2025 14:52-0400 Body olgqjauggei57.5 [degF]North Chapin MD Work Phone: [phone]10-24-2025 14:52-0400 Body ibckqj344.74 kgNorth Chapin MD Work Phone: [phone])[address]10-24-2025 14:52-0400 Diastolic blood xkcpjaay91 mm[Hg]North Chapin MD Work Phone: 1([phone] [place], [place] [address]10-24-2025 14:52-0400 Heart rate56 /minNorth Chapin MD Work Phone: [phone])[address]10-24-2025 14:52-0400 Respiratory rate18 /minNorth Chapin MD Work Phone: [phone] [place], [place] [address]10-24-2025 14:52-0400 SaO2% (BldA) [Mass fraction]96 %North Chapin MD Work Phone: [phone]10-24-2025 14:52-0400 Systolic blood rnkfqeoe708 mm[Hg]North Chapin MD Work Phone: [facility]10-08-2025 09:43-0400 Body drhjzi440 cmAmerica Ambrocio MD Work Phone: [facility]10-08-2025 09:43-0400Body mass index (BMI) [Ratio]32.12 kg/m2America Ambrocio MD Work Phone: [facility]10-08-2025 09:43-0400Body ljpicq897.49 kgAmerica Ambrocio MD Work Phone: [facility]08-20-2025 10:16-0400Body lmapwd100 cmMicbrenda Germain DO Work Phone: [facility]08-20-2025 10:16-0400Body mass index (BMI) [Ratio]31.33 kg/b2Vyffmnq Grillis DO Work Phone: [facility]08-20-2025 10:16-0400Body auqauf111.68 kgMichaewisam Calvins DO Work Phone: [facility]08-06-2025 07:57-0400Body umzpju048 cmNorth Chapin MD Work Phone: [facility] CenterOknjarcudv75-28-8608 07:57-0400Body mass index (BMI) [Ratio]31.97 kg/m2North Chapin MD Work Phone: [facility] CenterGvfcgddqel78-26-2200 07:57-0400Body temperature 97.5 [degF]North Chapin MD Work Phone: [facility] CenterRdvlwgpopo31-11-9825 07:57-0400Body zhrloe669.95 kgNorth Chapin MD Work Phone: [facility] CenterLqjmtkybds65-79-2233 07:57-0400Diastolic blood qharzuwq24 mm[Hg]North Chapin MD Work Phone: [facility] CenterYnifaymuyu48-89-3502 07:57-0400Heart rate68 /min North Chapin MD Work Phone: [phone] CenterUkqxbjekym55-45-3070 07:57-0400Respiratory rate20 /minNorth Chapin MD Work Phone: [facility] CenterQyhrwtjaxe78-00-9094 07:57-6102YfO7% (BldA) [Mass fraction]95 %North Chapin MD Work Phone: [phone] [place], [place] [address]Tdstdqiuyf44-66-5486 07:57-0400Systolic blood mm[Hg]North Chapin MD Work Phone: [phone] [place], [place] 17[address]105-12-2025 12:41-0400Blood Pressure LocationPatrick IRAHETA [facility]05-12-2025 12:41-0400Body iyocmrqvkdd60.6 [degF]Natali IRAHETA [facility]05-12-2025 12:41-0400Diastolic blood ocbligfg35 mm[Hg]Natali IRAHETA [facility]05-12-2025 12:41-0400Heart rate66 /minPatrick IRAHETA [facility]05-12-2025 12:41-0400Respiratory rate19 /minPatrick IRAHETA [facility] [place] [address]-12-2025 12:41-0400Systolic blood ireuyogm926 mm[Hg]Natali IRAHETA [facility] [place] [address]-05-2025 14:09-0400Body cmNorth Chapin MD Work Phone: [phone] [place], [place] [address]Eodcpvouyz71-65-0329 14:09-0400Body mass index (BMI) [Ratio]33.38 kg/m2North Chapin MD Work Phone: [facility] CenterMgtitjauya11-99-1892 14:09-0400Body temperature 97.81 [degF]North Chapin MD Work Phone: [facility] CenterRwvbaphsjx90-44-7936 14:09-0400Body iibqvh211.94 kgNorth Chapin MD Work Phone: [facility] CenterOxadsyjhuu33-46-3017 14:09-0400Diastolic blood mm[Hg]North Chapin MD Work Phone: [facility] CenterYvqvutmivc45-85-7021 14:09-0400Heart rate64 /min North Chapin MD Work Phone: [facility] CenterTzcsbqmwfc75-97-4882 14:09-0400Respiratory rate18 /minNorth Chapin MD Work Phone: [facility] CenterKcjmmasdfb90-94-6447 14:09-5519JoD2% (BldA) [Mass fraction]97 %North Chapin MD Work Phone: [facility] CenterVguialjoej32-33-7087 14:09-0400Systolic blood niimfueh994 mm[Hg]North Chapin MD Work Phone: [facility] CenterUllvhlblaz03-13-3236 15:24-0400Body rbytor263 cm Bud SUBRAMANIAN Work Phone: [facility] CenterFtccglphwt03-56-0344 15:24-0400Body mass index (BMI) [Ratio]31.97 kg/w4Wffxoeobreanna SUBRAMANIAN Work Phone: NONort[facility] CenterDptqcmdtlo18-57-1086 15:24-0400Body uxucko467.95 kgMattbreanna SUBRAMANIAN Work Phone: [facility] CenterLnpmlgsccx37-72-3474 15:33-0500Blood Pressure LocationPaFuller Hospital [facility]11-18-2024 15:33-0500Body irqyvubwsix11.6 [degF]Natali IRAHETA [facility]11-18-2024 15:33-0500Diastolic blood nhqqazqr70 mm[Hg]Natali IRAHETA [facility]11-18-2024 15:33-0500Heart rate60 /minPatrick ESEQUIEL [facility]11-18-2024 15:33-0500Respiratory rate16 /minPatrick IRAHETA [facility]11-18-2024 15:33-0500Systolic blood onhhkgfz243 mm[Hg]Natali IRAHETA [facility]11-13-2024 13:39-0500Body cmMegan Verhoff PA-C Work Phone: [facility] HospitalCotopaxi Ssveon89-25-5904 13:39-0500Body mass index (BMI) [Ratio]31.33 kg/b1Zxsuz Verhoff PA-C Work Phone: [facility]App[facility] Fhacdu30-10-0473 13:39-0500Body wlundb184.68 kgMegan Verhoff PA-C Work Phone: [facility]App[facility] Ouwxie70-86-5155 13:39-0500Diastolic blood evfxeqvl62 mm[Hg]Cecilia Verhoff PA-C Work Phone: [facility] HospitalCloudcam11-13-2024 13:39-0500Heart rate 66 /minMegan Verhoff PA-C Work Phone: [facility]App[facility] Srlbxk98-73-6893 13:39-9899LuA3% (BldA) [Mass fraction]94 %Cecilia Verhoff PA-C Work Phone: [facility]11-13-2024 13:39-0500Systolic blood mm[Hg]Cecilia Anderson PA-C Work Phone: [facility]07-31-2023 15:47-0400Blood Pressure LocationPaCAVI [employer] [facility]07-31-2023 15:47-0400Diastolic blood mocatatp07 mm[Hg]Natali Convore [facility]07-31-2023 15:47-0400Heart rate68 /minPatrick Convore [facility]07-31-2023 15:47-0400Respiratory rate16 /minPatrick Convore [facility]07-31-2023 15:47-0400Systolic blood stgflnug249 mm[Hg]Natali Convore [facility]06-13-2022 14:57-0400Blood Pressure LocationPatrick Convore [facility] 06-13-2022 14:57-0400Diastolic blood swfdkaui50 mm[Hg] Natali Convore [facility] 06-13-2022 14:57-0400Heart rate72 /minPaVetCentrick Convore [facility] 06-13-2022 14:57-0400Respiratory rate16 /minPaVetCentrick Convore [facility] 06-13-2022 14:57-0400Systolic blood siyabbsa663 mm[Hg] Natali IRAHETA [facility] 05-27-2022 15:00-0400Diastolic blood tcruomoi16 mm[Hg] DO Miguel Atsorga Work Phone: [phone])[address]05-27-2022 15:00-0400 Heart rate72 /Deborah Astorga Work Phone: [phone] [place], [place] [address]805-27-2022 15:00-0400 Respiratory rate16 /Deborah Astorga Work Phone: [phone])[address] [place], [place] 9800205-27-2022 15:00-0400 SaO2% (BldA) [Mass fraction]95 %DO Miguel Astorga Work Phone: [phone])[address] [place], [place] 9800205-27-2022 15:00-0400 Systolic blood uybdrlah223 mm[Hg]DO Miguel Astorga Work Phone: 1([phone])[address]05-27-2022 13:09-0400 Body opdwpjwsviw15.5 [degF]DO Miguel Astorga Work Phone: [phone])[address] [place], [place] 9800205-27-2022 13:09-0400 Inhaled oxygen flow rate6 L/Deborah Astorga Work Phone: 1([phone])[address]05-27-2022 12:40-0400 Body ipwghg195.96 cmDO Miguel Toribiocespencer Work Phone: 1([phone])[address]05-27-2022 12:40-0400 Body mass index (BMI) [Ratio]30.9 kg/m2DO Miguel Astorga Work Phone: 1(389)[address]05-27-2022 12:40-0400 Body vibqwp600.4 kgDO Miguel Toribiocespencer Work Phone: [facility] Encounters Encounter DateEncounter TypeCare ProviderFacilityStart: 84-85-6757yudbdhwlvqjohn Mattacility:ALEXANDRA BellevueStart: 09-29-2025 End: 23-51-9180cchbdygfqnXzmuthi R WATERSFacility:CD:[id number]: 09-29-2025 End: 07-60-5637Xiqrvfm encounter procedureNorth Chapin MD-[facility] [place] Work Phone: Start: 09-28-2025 End: 15-67-7411Foyujd outpatient visit 15 minutesEmrichard Carpenter MD Work Phone: noAL [facility] DermatologyComment on above:Seborrheic keratosis (Primary Dx); Capillary angioma; Lentigines; Melanocytic nevus of trunk; History of basal cell carcinoma; Actinic keratosis; Neoplasm of unspecified behavior of bone, soft tissue, and skinStart: 09-28-2025 End: 05-68-1679ynzpkquoqvQFHUV A PETITTINot AvailableStart: 09-28-2025 End: 18-16-0742Sbbcehnamrata Carpenter MD Work Phone: noms [facility] DermatologyStart: 09-28-2025 End: 47-40-5719Srmnrznamrata Carpenter MD Work Phone: noAL [facility] DermatologyStart: 09-23-2025 End: 29-81-7826Oimxlu outpatient visit 15 minutesTavares SUBRAMANIAN Work Phone: [facility]awn [facility] OrthopaedicsComment on above:Primary osteoarthritis of left hip (Primary Dx)Start: 09-23-2025 End: 34-05-6668fwlervssgrKMEIMike Polanco [facility] Centertart: 09-21-2025 End: 67-00-7169Vtzwyw outpatient new 20 minutesAdri Roger APRN-SLOT OPERATIONS MANAGER Work Phone: [facility] - Wound Care ClinicComment on above:Traumatic open wound of left lower leg with delayed healing (Primary Dx)Start: 09-21-2025 End: 85-56-3950jhmznbycxzHDPU P CHENEYCleveland Clinic [facility]ucl[facility] HospitalStart: 41-42-3930Uwk-patient / Non-visitPatricspencer Iraheta MD-[facility] Work Phone: Start: 09-17-2025 End: 51-19-5103otzxgryvglZqso Naderer MD Work Phone: -[facility] CampusStart: 09-17-2025 End: 37-91-4175Vbwgwhja ReferredIsamar Dominguez STOCK TRACER-[facility] Work Phone: Start: 09-17-2025 End: 69-96-8575dhbnyrfhacTgaa Naderer MD Work Phone: -[facility] ClydeStart: 09-17-2025 End: 36-14-6553Jrxmcwy encounter procedureIsamar Dominguez STOCK TRACER-[facility] Work Phone: Start: 14-62-5721htwecnioonFXHMY GRUBBUniThe Surgical Hospital at Southwoodstart: 09-01-2025 End: 54-75-5009Swnvvi outpatient new 30 minutesAmerica Ambrocio MD Work Phone: [facility] Ambrocio OrthopaedicsComment on above:Primary osteoarthritis of left hip (Primary Dx); Status post total hip replacement, rightStart: 09-01-2025 End: 00-26-0866fkkegsnhseIOUH NADERECoshocton Regional Medical Centertart: 08-16-2025 End: 53-03-1307Fvmwcn Nae Gasca CMAProMedimohit Ambrocio OrthopaedicsComment on above:Left hip pain (Primary Dx)Start: 08-02-2025 ambulatoryNewark Hospitaltart: 07-27-2025 End: 23-96-3827txwreylahkTDCINewark Hospitaltart: 07-27-2025 End: 79-03-6119Aejemyrvw for other preprocedural examinationPAUL [facility] Centertart: 99-13-0252cnywmysnrcKKKQ NADCHEYENNE [facility] Ambulatory PPGStart: 36-44-6973hefrxnsppeXGFSFlower Hospitaltart: 07-14-2025 End: 75-77-5781Xyduvh outpatient new 20 minutesDecatur E illis DO Work Phone: [facility] SurgeryComment on above: Chronic epididymitis (Primary Dx)Start: 07-14-2025 End: 30-11-9016lewslokkjqTNUHEFISkagit Regional Health Ambulatory PPG Start: 07-02-2025 End: 09-46-8623Wdyulwmop Result EncounterNorth Chapin MD Work Phone: noms External Department UnsolicitedStart: 07-02-2025 End: 32-48-5320Gauuomnbw Result EncounterNorth Chapin MD Work Phone: noms External Department UnsolicitedStart: 06-30-2025 End: 65-92-1611Jldufq flowsTania Chapin MD Work Phone: noms CWM FMStart: 06-30-2025 End: 33-30-6191Byuonzmisty Chapin MD Work Phone: noms CWM FMStart: 06-30-2025 End: 98-97-0410qksxmfrvlfBMVZ NADERERNot AvailableStart: 06-30-2025 End: 31-32-4489Dpkpek outpatient visit 15 minutesNorth Chapin MD Work Phone: noms CWM FMComment on above:Inguinal pain, right (Primary Dx); H/O epididymitisStart: 87-37-2910cgwywmnwqlDAWCR GRUBBUniThe Surgical Hospital at Southwoodstart: 87-54-5535unxnwtqqhlIOXVTrumbull Regional Medical Centertart: 05-12-2025 End: 67-30-0911Duhylru encounter procedureEmily A Alexi MD Work Phone: noms SWS DERMComment on above:Basal cell carcinoma (BCC) of right forearm (Primary Dx); Basal cell carcinoma of skin of left lower limb, including hipStart: 05-12-2025 End: 32-93-4841blmejsfxccYQWZI A PETITTINot AvailableStart: 04-30-2025 End: 94-90-6395Qsjjxx flowsheetEmrichard Carpenter MD Work Phone: noms SWS DERMStart: 04-30-2025 End: 38-85-3674Qpgpce flowsheetEmrichard Carpenter MD Work Phone: noms SWS DERMStart: 04-30-2025 End: 09-80-6978Jxmeszf encounter procedureEmily Flora Carpenter MD Work Phone: noms SWS DERMComment on above:Basal cell carcinoma of skin of left lower limb, including hip (Primary Dx)Start: 04-30-2025 End: 53-42-3046uhmdarseicEYUVW A PETITTINot AvailableStart: 04-21-2025 End: 46-10-4929yillvdeighLCLMCleveland Clinic Medina Hospitaltart: 04-12-2025 End: 72-09-9413Jkcbev follow up visit related to original Donna Hernandez NP Work Phone: noms FB ORTHOPAEDICSComment on above:Status post arthroscopy of left knee (Primary Dx)Start: 04-12-2025 End: 30-78-5379kosmkomwpgFEZUS T OLSENNot AvailableStart: 04-12-2025 End: 93-16-7895Kqxdyi Jacob Hernandez NP Work Phone: NOUF FB ORTHOPAEDICSStart: 04-12-2025 End: 14-21-7443Ayuznq Jacob Hernandez DIGITAL DESIGNER Work Phone: noms FB ORTHOPAEDICSStart: 91-57-8891rujdbmasxgPOMXCommunity Regional Medical Centertart: 04-05-2025 End: 74-97-4905endcmsalqpXrkpalm R WATERSFacility:EU BellevueStart: 04-05-2025 End: 55-83-1148Gxrzczk encounter procedureNatali IRAHETA [facility] Maik start: 04-03-2025 End: 70-14-2399Mvownfxxw Result EncounterNorth Chapin MD Work Phone: noms External Department UnsolicitedStart: 04-03-2025 End: 90-55-3639Wrozgssop Result EncounterNorth Chapin MD Work Phone: noms External Department UnsolicitedStart: 03-29-2025 End: 95-11-3094Pjkagf flowsTania Chapin MD Work Phone: noms CWM FMStart: 03-29-2025 End: 87-47-6768Xgetqz flowsTania Chapin MD Work Phone: noms CWM FMStart: 03-29-2025 End: 10-72-6903Hpqzocp encounter procedureNorth Chapin MD Work Phone: [facility] Work Phone: Start: 03-29-2025 End: 16-25-5877Qyffst follow up visit related to original Mehul Chapin MD Work Phone: noms CWM FMComment on above:Medicare annual wellness visit, subsequent (Primary Dx); Prediabetes; Dyslipidemia (CMS/HCC); Encounter for long-term (current) use of medications; Screening PSA (prostate specific antigen); Paroxysmal atrial fibrillation (CMS/HCC)Start: 03-29-2025 End: 72-15-1068stfnoowczxUWQO NADERERNot AvailableStart: 03-24-2025 End: 35-07-7528Nkwvyj flowsMichele Carpenter MD Work Phone: noms SWS DERMStart: 03-24-2025 End: 00-34-8183Qjvfux flowsheetSakina Carpenter MD Work Phone: noms SWS DERMStart: 03-24-2025 End: 98-19-3793Xlrtne outpatient visit 15 minutesEmrichard Carpenter MD Work Phone: noms SWS DERMComment on above:Seborrheic keratosis (Primary Dx); Actinic keratosis; Neoplasm of unspecified behavior of bone, soft tissue, and skin; Lentigines; History of malignant neoplasm of skinStart: 03-24-2025 End: 40-79-3604iogtonocxwGPCEI A PETITTINot AvailableStart: 2025 End: 06-16-4086Ctoxkv Jacob Hernandez DIGITAL DESIGNER Work Phone: noms FB ORTHOPAEDICSStart: 2025 End: 94-78-1664Tadnnv Jacob Hernandez DIGITAL DESIGNER Work Phone: noms FB ORTHOPAEDICSStart: 2025 End: 92-38-1091Nohapr follow up visit related to original Donna Hernandez NP Work Phone: noms FB ORTHOPAEDICSComment on above:Status post arthroscopy of left knee (Primary Dx)Start: 2025 End: 29-60-0398doffirhlpuXNKZB T OLSENNot AvailableStart: 53-67-0694dopmqhgkxt ROXANNE [facility] Centertart: 03-01-2025 End: 61-79-0202siromwlrdhRGMIEY C STEPANICFacility:Annika HospitalStart: 02-26-2025 End: 64-98-4883LlnxwlRcaan T Olsen DIGITAL DESIGNER Work Phone: noms FB ORTHOPAEDICSComment on above:Internal derangement of left knee (Primary Dx)Start: 99-60-1889vyjctjquqjUSSJ [facility] Centertart: 02-02-2025 End: 64-07-2798ynyygluzacVHIHRZG J MEYERNot AvailableStart: 02-02-2025 End: 77-90-5630Zpuvkbn encounter procedureMaoj SUBRAMANIAN Work Phone: noms FB ORTHOPAEDICSComment on above:Pre-op examination (Primary Dx)Start: 02-02-2025 End: 69-99-2529Xglzvnlhzdqpf examination doneMaoj SUBRAMANIAN Work Phone: [facility] Work Phone: Start: 02-02-2025 End: 61-65-0315Eilzsx flowsheetBud SUBRAMANIAN Work Phone: noms FB ORTHOPAEDICSStart: 02-02-2025 End: 49-42-5107Mybmsx flowsheetBud SUBRAMANIAN Work Phone: noms FB ORTHOPAEDICSStart: 02-02-2025 End: 73-39-0844lsaitwjefqOVNV A NADERERFacility:[facility] HospitalStart: 22-48-3176Suiebutgw for other preprocedural examinationGEORSARAH Dan HospitalStart: 12-25-2024 End: 24-75-6843Egjzjm flowsheetJr. Enrrique Waldrop DO Work Phone: noms ORTHOStart: 12-25-2024 End: 40-77-4157Ponppg flowsheetJr. Enrrique Waldrop DO Work Phone: noms ORTHOStart: 12-25-2024 End: 05-30-5816Uuwdvy outpatient visit 25 minutesJr. Enrrique Waldrop DO Work Phone: noms PCF ORTHOComment on above:Left knee pain, unspecified chronicity (Primary Dx); Internal derangement of left kneeStart: 12-25-2024 End: 46-24-7717woysniofidQD., ENRRIQUE WALDROPNot AvailableStart: 12-18-2024 End: 53-20-6535Isxjofywa Result EncounterGeneric External Data ProviderNOMS External Department UnsolicitedStart: 12-18-2024 End: 97-85-0022Mclxdduym Result EncounterGeneric External Data ProviderNOMS External Department UnsolicitedStart: 57-03-7093obzrrqxmraYSVF [facility]ertart: 12-11-2024 End: 91-39-4308Giuojojgx encounterMaria B Apling DIGITAL DESIGNER Work Phone: noms FB ORTHOPAEDICSComment on above:RXStart: 12-10-2024 End: 45-71-5486Hmzbppkwy encounterMaria B Apling DIGITAL DESIGNER Work Phone: noms SWS ORTHOComment on above:MRIStart: 12-05-2024 End: 15-60-3473LzrmnrDgcm Tavares RUSSELL Work Phone: noms CWM FMComment on above:Anxiety disorder, unspecified type; Restless leg syndromeStart: 11-30-2024 End: 99-09-3566Ifdvxo flowsheetMaria B Apling DIGITAL DESIGNER Work Phone: noms CI ORTHOPAEDICSStart: 11-30-2024 End: 29-36-2458Kuymvd flowsheetMaria B Apling DIGITAL DESIGNER Work Phone: noms CI ORTHOPAEDICSStart: 11-30-2024 End: 80-07-7280Ljuprd outpatient visit 15 minutesMaria B Apling DIGITAL DESIGNER Work Phone: noms CI ORTHOPAEDICSComment on above:Left knee pain, unspecified chronicity (Primary Dx); Arthritis of left knee; Internal derangement of left kneeStart: 11-30-2024 End: 65-34-7699mqucoxwwtkHTYFW B APLINGNot AvailableStart: 57-37-9300lzmbsmfefb PAUL [facility]ertart: 11-10-2024 End: 19-83-6021shrbdkpevxOMET [facility]ertart: 11-09-2024 End: 16-05-0047Kxieeq flowsheetMaria B Apling DIGITAL DESIGNER Work Phone: noms CI ORTHOPAEDICSStart: 11-09-2024 End: 97-58-0115Puqqju flowsheetMaria B Apling DIGITAL DESIGNER Work Phone: noms CI ORTHOPAEDICSStart: 11-09-2024 End: 53-24-1611Zwkmly outpatient visit 25 minutesMary Lou Diane NP Work Phone: noms CI ORTHOPAEDICSComment on above:Left knee pain, unspecified chronicity (Primary Dx); Arthritis of left kneeStart: 11-09-2024 End: 06-00-8928leolhrtoarZBDRU B APLINGNot AvailableStart: 11-05-2024 End: 78-70-6583Kdrbqz flowsheetNaomi Beltre PTANOMS CI PTStart: 11-05-2024 End: 32-61-6610Eooigd flowsheetNaomi Beltre PTANOMS CI PTStart: 11-05-2024 End: 17-79-4778elsvnukvsbQuojnqm Kelbley PTANOMS CI PTComment on above:Left knee pain, unspecified chronicity (Primary Dx)Start: 11-03-2024 End: 76-48-6449bsvgsohubhYehihid Lawrence PTANOMS CI PTComment on above:Left knee pain, unspecified chronicity (Primary Dx)Start: 11-03-2024 End: 65-55-0072Qznjsn flowsheetFranco Hartman PTANOMS CI PTStart: 11-03-2024 End: 60-89-1721Hxtgcq flowsheetFranco Hartman PTANOMS CI PTStart: 10-29-2024 End: 80-36-2747Hxuvpq flowsheetSammantha Rowe PTNOMS CI PTStart: 10-29-2024 End: 34-35-3099Uvmxcb flowsheetSammantha Rowe PTNOMS CI PTStart: 10-29-2024 End: 65-81-7805lpamwtvlwyHlzmwdbye Rowe PTNOMS CI PTComment on above:Left knee pain, unspecified chronicity (Primary Dx)Start: 11-55-8614cuxymkpvinOMHU [facility]ertart: 10-27-2024 End: 96-40-5277jisbklnvpgSokcpzc Lawrence PTANOMS CI PTComment on above:Left knee pain, unspecified chronicity (Primary Dx)Start: 10-27-2024 End: 97-11-0583Iwpqhn flowsheetFranco Hartman PTANOMS CI PTStart: 10-27-2024 End: 19-47-9926Vvwivt flowsheetFranco Hartman PTANOMS CI PTStart: 10-20-2024 End: 78-26-9913emqzrdtphdBfliyhdns Schneider PTNOMS CI PTComment on above:Left knee pain, unspecified chronicity (Primary Dx)Start: 10-20-2024 End: 81-75-5369Vfnmwn flowsheetSammantha Rowe PTNOMS CI PTStart: 10-20-2024 End: 56-48-4254Uwjhdj flowsheetSammantha Rowe PTNOMS CI PTStart: 10-14-2024 ambulatoryNewark Hospitaltart: 10-12-2024 End: 09-06-1855grpkzoqdqjOwhzaom R WATERSFacility:EU BellevueStart: 10-12-2024 End: 76-94-9321Mykjabf encounter procedureNatali IRAHETA [facility] start: 10-07-2024 End: 46-80-8374jbvsssqxxuYXPMGWyandot Memorial Hospitaltart: 10-07-2024 End: 72-41-5011Nzgwfw outpatient visit 25 minutesCecilia Anderson PA-C Work Phone: [facility] - Pain Management ClinicComment on above:Left knee pain, unspecified chronicity (Primary Dx)Start: 10-07-2024 End: 57-31-2061kyphtxvtnjDKKFV [facility] Hospitaltart: 08-13-2024 End: 56-18-8438Rzqrbb Chelsea Carpenter MD Work Phone: noms SWS DERMStart: 08-13-2024 End: 30-66-4702Mcxoicnamrata Carpenter MD Work Phone: noms SWS DERMStart: 08-13-2024 End: 66-99-1860Fsihbm outpatient visit 15 minutesEmrichard Carpenter MD Work Phone: noms SWS DERMComment on above:Seborrheic keratosis (Primary Dx); Lentigines; Melanocytic nevus of trunk; Angioma of skin; Actinic keratosis; History of basal cell carcinoma; Neoplasm of unspecified behavior of bone, soft tissue, and skinStart: 05-06-2024 End: 20-84-2647Pkhzokamk Result EncounterGeneric External Data ProviderNOMS External Department UnsolicitedStart: 05-06-2024 End: 50-58-9528Bpdsqlibg Result EncounterGeneric External Data ProviderNOMS External Department UnsolicitedStart: 10-35-5718Crlgema encounter procedureEmrichard Carpenter MD Work Phone: noms HealthcareStart: 03-03-2024 End: 50-26-4252Vtbqxsurp Result EncounterNorth Chapin MD Work Phone: noms External Department UnsolicitedStart: 03-03-2024 End: 22-71-1689Uknjshlga Result EncounterNorth Chapin MD Work Phone: noms External Department UnsolicitedStart: 02-08-2024 End: 16-37-6509Vouysurce Result EncounterGeneric External Data ProviderNOMS External Department UnsolicitedStart: 02-08-2024 End: 70-95-7418Tlezwtvoh Result EncounterGeneric External Data ProviderNOMS External Department UnsolicitedStart: 12-24-2023 End: 84-99-0485Cxuggkxmv Result EncounterGeneric External Data ProviderNOMS External Department UnsolicitedStart: 12-24-2023 End: 28-17-5072Kpgswbjju Result EncounterGeneric External Data ProviderNOMS External Department UnsolicitedStart: 12-03-2023 End: 11-28-1967Gfukqlfgu Result EncounterGeneric External Data ProviderNOMS External Department UnsolicitedStart: 12-03-2023 End: 99-12-5297Onpywpfhd Result EncounterGeneric External Data ProviderNOMS External Department UnsolicitedStart: 11-12-2023 End: 67-30-3666Vzataxstb Result EncounterGeneric External Data ProviderNOMS External Department UnsolicitedStart: 11-12-2023 End: 59-28-2277Kbpbqzqpg Result EncounterGeneric External Data ProviderNOMS External Department UnsolicitedStart: 06-24-2023 End: 98-64-8871Zazdhrk encounter procedurePagunjanspencer IRAHETA [facility] start: 04-09-2023 End: 81-22-0785cghnmkcahjVSOZ MARIA A .Facility:K8Pooio: 03-18-2023 End: 50-90-0125xqmburwpstYR Sakina Carpenter Work Phone: [facility] Work Phone: Start: 03-18-2023 End: 17-60-9242Eooquwdu ReferredMD Sakina Carpenter Work Phone: [facility] [place] Work Phone: Start: 03-12-2023 End: 40-50-7761khwwdyvrslUH NORTH A NADERERFacility:K9Plhqe: 03-06-2023 End: 90-85-3391cwqhnfhmdfGY NORTH A NADERERFacility:P7Ydgfc: 12-20-2022 End: 98-02-2464lxkhjsrxblPX RAZ MATOSFacility:H5Ofplg: 12-18-2022 End: 81-47-6039ctigmuyabhBMGPUWTH CULLENFacility:S2Kjnvw: 12-06-2022 End: 38-95-6374gkaxbiofteXV NORTH A NADERERFacility:M5Mtxzj: 11-06-2022 End: 82-76-2844tezwgbupcqTLGOSGIU CULLENFacility:B4Fjpkm: 10-16-2022 End: 82-37-2699rqsuwajafrQFQZMLFT CULLENFacility:A7Irizh: 09-27-2022 End: 81-81-8911qwqkhnpvrbNSRXX D HIGHLANDERFacility:Y7Crwyr: 59-39-6790Eaaxosgjj for preprocedural cardiovascular examinationPETER [facility] HospitalStart: 12-67-0427Agwitkdlk for preprocedural laboratory examinationPETER D [facility] HospitalStart: 64-57-1500jnymfovtejYJCYQ [facility] Facility:G6Rjrpu: 09-21-2022 End: 98-56-8241zjcxyunqypUSCRD [facility]ENTERFacility:N4Qfqjs: 09-21-2022 End: 33-92-9336Wihmnzcux for preprocedural cardiovascular examinationPETER D [facility]ITALFacility:X2Oxhgn: 08-01-2022 End: 60-05-7416tydqbvingiYWMTZ D [facility]OSPITALFacility:Y9Tqrsb: 06-04-2022 End: 88-34-5580belkwescnsCW NORTH Hines NADERERFacility:G1Rxksx: 05-15-2022 End: 54-98-9762vwvsfoukpjCNKCCTZC CULLENFacility:N3Ullwc: 05-07-2022 End: 54-56-0081Wyzglgb encounter procedureNatali IRAHETA [facility] start: 04-27-2022 End: 00-58-1144wllspizkpiOI NATALI IRAHETA .Facility:S7Hxxeg: 04-20-2022 End: 80-33-5702Jmfxgwdyh to same day surgery centerDO Miguel Astorga Work Phone: [facility] CenterStart: 04-19-2022 End: 46-94-2894Ssyzrnv encounter procedureDO Miguel Astorga Work Phone: [facility]-Pre-Surgical Testing Procedures DateProcedureProcedure DetailPerforming ClinicianStart: 09-28-2025 End: 86-34-7317ZRNJ / NAIL BIOPSYEmrichard Carpenter MD Work Phone: Start: 25-17-0049ETIOEHOMXHU SKIN LESIONEmrichard Carpenter MD Work Phone: Start: 79-68-2542Zhwiouuolopure aspir&/inj major jt/bursa w/o usSimone Spencer SUBRAMANIAN Work Phone: Start: 42-00-6037Litau immobilization, pressure, and attention to woundNancyy Mariano Roger STOCK TRACER-SLOT OPERATIONS MANAGER Work Phone: Start: 21-62-4786Woxpsqk microbial cultureNorth Chapin MD Work Phone: Start: 23-42-3116Ubtqeokrk microbial cultureNorth Chapin MD Work Phone: Start: 20-76-3407Oqov stain microscopyNorth Chapin MD Work Phone: Start: 81-18-8925In scrotum & contentsNorth Chapin MD Work Phone: Start: 05-12-2025 End: 37-88-4928FKIJDHQYTTM OF LESIONEmily Flora Carpenter MD Work Phone: Start: 68-02-2125USAV EXCISIONEmily Flora Carpenter MD Work Phone: Start: 95-38-2065YFM HEMOGLOBIN T8DNddiNorth Chapin MD Work Phone: Start: 03-24-2025 End: 71-09-3483GWRL / NAIL BIOPSYEmrichard Carpenter MD Work Phone: Start: 70-44-5955DTIOFNLOLGG SKIN LESIONEmily Flora Carpenter MD Work Phone: Start: 33-79-0933Mwohcmpdkry of kneePatrick IRAHETA Start: 38-27-1610LH KNEE LT WO CONGeneric External Data ProviderStart: 31-26-1548Vixbzgpjhaekqz aspir&/inj major jt/bursa w/o usMaria B Apling DIGITAL DESIGNER Work Phone: Start: 75-37-4789Vubwfyuuxt exam both knees standing anteropostMaria B Apling DIGITAL DESIGNER Work Phone: Start: 55-39-3365NABN / NAIL BIOPSYEmrichard Carpenter MD Work Phone: Start: 44-05-2957RSLYEVICDGR SKIN LESIONEmrichard Carpenter MD Work Phone: Start: 43-81-2044YD FOOT LT MIN 3VGeneric External Data ProviderStart: 68-33-1288JQ HEAD/BRAIN WO RASHEEDNancypatel Chapin MD Work Phone: Start: 42-89-9899GW FOOT LT MIN 3VGeneric External Data ProviderStart: 37-36-8650HN FOOT LT MIN 3VGeneric External Data Provider Start: 92-82-3995AO FOOT LT MIN 3VGeneric External Data ProviderStart: 23-77-1375VA FOOT LT MIN 3VGeneric External Data ProviderStart: 11-12-2023 Fluoroscopy durationGeneric External Data ProviderStart: 95-87-7125Hyqyzvbyrkt Sakina Carpenter MD Work Phone: Start: 03-21-0956UTD screeningKIMBERLY CULLENComment on above:Performed By: #### PSAD ####[facility] [address] [place], [place] [address]Lg. Yilan ChangStart: 85-09-4018MM Cheek Lesion Exc W/Flap Recon (Not Applicable)DO Miguel Astorga Work Phone: colonoscopyPatrick IRAHETA ft (qualifier value)Natali IRAHETA Prosthetic arthroplasty of the hipPatrick IRAHETA Removal of Basal Cell on NosePatrick IRAHETA Repair of inguinal herniaPatrick IRAHETA Titanium Plate Left ArmPatrick IRAHETA Tonsillectomy and adenoidectomyPatrick IRAHETA Plan of Treatment DateCare ActivityDetailAuthorStart: 83-25-2799Dhjqyncqr for malignant neoplasm of colonNOMS HealthcareStart: 30-08-1478ZDxO,Tdap and Td Vaccines (2 - Tdap) DTaP,Tdap and Td Vaccines (2 - Tdap)[facility] SystemStart: 09-23-2026 Adult BMI ScreeningAdult BMI ScreeningProMount Carmel Health Systemca Health SystemStart: 09-23-2026 Tobacco ScreeningTobacco ScreeningProMount Carmel Health Systemca Health SystemStart: 09-21-2026 Tobacco ScreeningTobacco ScreeningProMount Carmel Health Systemca Health SystemStart: 10-12-1931Kfpuq BMI ScreeningAdult BMI ScreeningProMount Carmel Health Systemca [facility] SystemStart: 72-59-5676Cbmvp BMI ScreeningAdult BMI ScreeningProMount Carmel Health Systemca [facility] SystemStart: 98-94-0584Cgyruei ScreeningTobacco ScreeningDayton [facility] Center SystemStart: 05-05-2026Medicare Annual Wellness (AWV)Medicare Annual Wellness (AWV)NOM HealthcareStart: 03-29-2026 End: 51-31-9347Dtexfsp encounter nqulspdzu90/05/2026 1:45 PM EDT Office Visit [facility] [address] [place] [address] Sakina Carpenter MD [address] [place] [address] [facility]Chris Nicole DermatologyStart: 12-06-2025 End: 14-87-3006Sceoaob encounter dmvxcladi97/12/2026 9:00 AM EST Office Visit [facility] [address] [facility] [id number] [place] [phone] America Ambrocio MD [address] [facility] [place], [place] [phone] (Work) [facility] OrthopaedicsStart: 99-38-2714Adlwc BMI ScreeningAdult BMI ScreeningProMiddletown Hospital SystemStart: 17-85-3208Delzfgj ScreeningTobacco ScreeningDayton [facility] SystemStart: 10-05-2025 End: 58-00-2010Eaqporc encounter iwdtsdjet90/11/2025 11:00 AM EST Office Visit [facility] [address] [place] [phone] Wilton Adri Mariano, STOCK TRACER-SLOT OPERATIONS MANAGER [address] [place] [address] [facility] Centertart: 09-29-2025 End: 88-69-2325Loabbzb encounter geawgenoq00/05/2025 1:45 PM EST Office Visit [facility] [address] [place] [phone] North Chapin MD [address] [place] [address] [facility] CWM FMStart: 09-28-2025 End: 87-93-8480Skuzjhe encounter procedureNOMS SWS DERMComment on above:Arrived Start: 09-23-2025 End: 35-57-5490Phpimyu encounter procedureProMedica Dashawn [facility] Start: 71-88-1820HpcxmvuzcElyria Memorial Hospitaltart: 29-25-1460Ouhsjgt CultureAerobic CultureElyria Memorial Hospitaltart: 09-17-2025 Anaerobic CultureAnaerobic CultureElyria Memorial Hospitaltart: 68-17-5375Bcoexuslqif observation [Identifier] in Unspecified specimen by Gram stainElyria Memorial Hospitaltart: 09-01-2025 End: 36-50-3601Qspxgoq encounter dqzyxiblq31/08/2025 10:00 AM EDT [facility] Visit [facility] [address] [facility] [address] [place] [address] America Ambrocio MD [address] [facility] [place] [address] [facility] OrthopaedicsStart: 08-16-2025 End: 79-98-4704GT Pelvis and Hip - left 2 ViewsX-ray hip left 2-3 views with or without pelvis Imaging Routine Left hip pain Expected: 08/16/2025,Expires: 08/16/2026[facility] Work Phone: Comment on above:Expected: 08/16/2025, Expires: 08/16/2026Start: 93-83-9757OSZBU-19 Vaccine ()COVID-19 Vaccine ()[facility] SystemStart: 63-83-9117Plavjrmjv vaccinationWestern Missouri Mental Health CenterStart: 06-30-2025 End: 07-03-2417UE Scrotum and testicleUS scrotum Imaging Routine Inguinal pain, right H/O epididymitis Expected: 06/30/2025, Expires: 06/30/2026[facility] Work Phone: Comment on above:Expected: 06/30/2025, Expires: 06/30/2026Start: 05-12-2025 End: 10-73-1904Zpwbpcn encounter hyfqecfit30/18/2025 1:20 PM EDT Procedure Visit [facility] [address] [place] [address] Sakina Carpenter MD [address] [place] [address] NOMChris [facility] DERMStart: 04-30-2025 End: 01-51-6776Rtejcts encounter wadfagxug78/06/2025 10:20 AM EDT Office Visit [facility] [address] [place] [id number] Sakina Carpenter MD [address] [place], [place] [id number] ArrivedTATE [facility] DERMComment on above:ArrivedStart: 04-28-2025 End: 15-19-5395Mvujslj encounter lzwpyynlh75/04/2025 4:00 PM EDT Office Visit [facility] [address] [place] [address] Sakina Carpenter MD [address] [place] [address] [facility] DERMStart: 04-12-2025 End: 21-66-8230Qlateta encounter procedureNOMS FB ORTHOPAEDICSComment on above: ArrivedStart: 03-29-2025 End: 51-53-3162Messs metabolic 1998 panel - Serum or PlasmaBasic metabolic panel Lab Routine Encounter for long-term (current) use of medications Expected: 03/2025 (Approximate), Expires: 03/29/2026NOMS HealthcareComment on above: Expected: 03/29/2025 (Approximate), Expires: 03/29/2026Start: 03-29-2025 End: 92-41-5768Yzpzuokmeg A1c/Hemoglobin.total in BloodHemoglobin A1c Lab Routine Prediabetes Expected: 03/29/2025 (Approximate), Expires: 03/29/2026[facility] Work Phone: Comment on above:Expected: 03/29/2025 (Approximate), Expires: 03/29/2026Start: 03-29-2025 End: 39-81-8074Eayxh 1996 panel - Serum or PlasmaLipid panel Lab Routine Dyslipidemia ([facility]) Expected: 03/29/2025 (Approximate), Expires: 03/29/2026 N[facility]S HealthcareComment on above:Expected: 03/29/2025 (Approximate), Expires: 03/29/2026Start: 03-29-2025 End: 02-36-6616Mytboga encounter procedureNOMS CWM FMComment on above:Arrived Start: 03-24-2025 End: 54-55-5716Uprdugv encounter aapehmdwh10/30/2025 1:00 PM EDT Office Visit [facility] [address] [place] [address] Sakina Carpenter MD [address] [place] [address] ArrivedNOMS SWS DERMComment on above:ArrivedStart: 03-23-2025 End: 94-74-4827Ryycjck encounter procedureNOMS SWS DERMStart: 03-22-2025 End: 11-30-9878Jvbgufe encounter ufrkrsxyq86/28/2025 11:30 AM EDT Office Visit [facility] [address] [place] [address] North Chapin MD [address] [place] [address] [facility] CWM FMStart: 04-23-2025Medicare Annual Wellness (AWV)Medicare Annual Wellness (AWV)NOMS HealthcareStart: 2025 End: 84-95-3879Hxoxrih encounter procedureNOMS FB ORTHOPAEDICSComment on above: ArrivedStart: 02-22-2025 End: 35-03-9017Vogvhej encounter kstjbuudy64/31/2025 1:35 PM EDT Office Visit [facility] [address] [place] [address] Sakina Carpenter MD [address] [place] [address] NOM[facility] SWS DERMStart: 02-11-2025 End: 43-38-1880Bfbfsvm encounter ilqgivhbm92/20/2025 1:05 PM EDT Office Visit [facility] [address] [place] [address] Sakina Carpenter MD [address] [place] [address] N[facility] SWS DERMStart: 02-02-2025 End: 49-23-8177Mgqmcqf encounter fuovtzfes77/11/2025 3:00 PM EDT Office Visit [facility] [address] [address] Bud Cummins, PA [address] [place] [address] [facility] FB ORTHOPAEDICSStart: 12-25-2024 End: 81-24-9007Zrcgveg encounter procedureNOMS PCF ORTHOComment on above:Arrived Start: 12-09-2024 End: 95-26-1486Dirquyu encounter anvygpaki70/15/2025 1:30 PM EST Office Visit [facility] [address] [place] [address] Cecilia Anderson PAGeovannaC [address] [place], [place] [address] [facility] - Pain Management ClinicStart: 11-30-2024 End: 31-49-4718LV Knee - left WO contrastMR knee left wo IV contrast Imaging Routine Internal derangement of left knee Expected: 11/30/2024 (Approximate), Expires: 11/30/2025[facility] Work Phone: Comment on above:Expected: 11/30/2024 (Approximate), Expires: 11/30/2025Start: 11-30-2024 End: 55-92-4344Duwuref encounter procedureNOMS CI ORTHOPAEDICSComment on above: Left knee pain, unspecified chronicity (Primary Dx); Arthritis of left kneeStart: 11-16-2024 End: 84-80-1276cqebpwxhzg90/23/2024 2:00 PM EST Treatment [facility] [address] [place] [address] Yenny Rowe, UZMA CI PTStart: 11-12-2024 End: 52-51-6789aydcuoaxwg14/19/2024 5:00 PM EST Treatment [facility] [address] [place] [address] Naomi Beltre, SARAH [facility] CI PTStart: 11-09-2024 End: 34-55-8118nhcomkwsds18/16/2024 4:00 PM EST Treatment [facility] [address] [place] [address] Yenny Rowe PTNOMS CI PTStart: 11-09-2024 End: 77-10-3075Ztsoeeo encounter procedureNOMS CI ORTHOPAEDICSComment on above: Left knee pain, unspecified chronicity (Primary Dx); Arthritis of left kneeStart: 11-05-2024 End: 48-88-6833hpyayetupqCXHC CI PTComment on above:ArrivedStart: 11-03-2024 End: 53-12-0482gxkgxmvhplNDSP CI PTComment on above:ArrivedStart: 10-29-2024 End: 59-31-9123kyfxthkscqWPXN CI PTComment on above:ArrivedStart: 10-27-2024 End: 53-88-9958kcjbssaggbRSUH CI PTComment on above:ArrivedStart: 08-13-2024 End: 38-16-8701Mewntnf encounter gcsyehryf66/19/2024 9:45 AM EDT Office Visit [facility] [address] [place] [address] Sakina Carpenter MD [address] [place] [address] ArrivedNOMS SWS DERMComment on above:ArrivedStart: 98-92-4243SBQOP-19 Vaccine ()COVID-19 Vaccine ( season)[facility] SystemStart: 64-85-4842JTLQA-19 Vaccine ( season)COVID-19 Vaccine ( season)[facility] SystemStart: 50-77-9628Wzovheewf vaccinationInfluenza Vaccine (#1)[facility] HealthcareStart: 92-10-1838Cijrajjvvgb Wound CultureSuperficial Wound CultureElyria Memorial Hospitaltart: 03-82-6402Yuzd Risk ScreeningFall Risk ScreeningProMiddletown Hospital SystemStart: 07-48-7343Ugwyi BMI Follow Up PlanAdult BMI Follow Up Plan [facility] [employer] SystemStart: 18-32-5039Ejdglxufes ScreeningDepression Screening [facility] SystemStart: 1952Medicare Annual Wellness (AWV)Medicare Annual Wellness (AWV)[facility] HealthcareStart: 56-51-4433Mtimotqdi for malignant neoplasm of colonNOMS HealthcareBacteria identified in Unspecified specimen by Aerobe cultureKettering Health DaytonBacteria identified in Unspecified specimen by Anaerobe cultureKettering Health Dayton Dermatopathology examDermatopathology exam Pathology and Cytology Timed Neoplasm of unspecified behavior of bone, soft tissue, and skin Release Upon Ordering for 1 Occurrences starting 08/13/2024[facility] Work Phone: comment on above:Release Upon Ordering for 1 Occurrences starting 08/13/2024ermatopathology examDermatopathology exam Pathology and Cytology Timed Neoplasm of unspecified behavior of bone, soft ti ssue, and skin Release Upon Ordering for 1 Occurrences starting 03/24/2025[facility] Healthcare Work Phone: comzczx on above:Release Upon Ordering for 1 Occurrences starting 03/24/2025Dermatopathology examDermatopathology exam Pathology and Cytology Timed Basal cell carcinoma of skin of left lower limb, including hip Release Upon Ordering for 1 Occurrences starting 04/30/2025[facility] Healthcare Work Phone: comment on above:Release Upon Ordering for 1 Occurrences starting 04/30/2025Dermatopathology examDermatopathology exam Pathology and Cytology Timed Neoplasm of unspecified behavior of bone, soft ti ssue, and skin Release Upon Ordering for 1 Occurrences starting 09/28/2025[facility] Healthcare Work Phone: comment on above:Release Upon Ordering for 1 Occurrences starting 09/28/20254369DUIK-SrS-9 (COVID-19) N gene [Presence] in Respiratory specimen by DAISY with probe detectionOhiohealth Van Wert Hospital Work Phone: End: 96-05-2575OZ Knee - left 3 ViewsX-ray knee left 3 views Imaging Routine Left knee pain, unspecified chronicity 1 Occurrences starting 10/07/2024 until 10/07/2025[facility] Work Phone: Comment on above:1 Occurrences starting 10/07/2024 until 10/07/2025XR Knee - left 3 ViewsX-ray knee left 3 views Imaging Routine Left knee pain, unspecified chronicity 10/07/2024 2:40 PM [facility] Immunizations Immunization DateImmunizationNotesCare EyninsbtSiaodfuz23-55-3359thhrgmxcg virus vaccine, unspecified formulationTradono [facility]09-28-2023influenza virus vaccine, unspecified formulationSakina Carpenter MD Work Phone: [facility]10-09-2022influenza virus vaccine, unspecified formulationTradono [facility]11-11-2021SARS-CoV-2 (COVID-19) mRNA BNT-162b2 vaxTradono [facility]09-20-2021influenza virus vaccine, unspecified formulationTradono [facility]09-20-2021pneumococcal polysaccharide vaccine, 23 valentPaCAVI Video Shopping [facility]04-28-2021SARS-CoV-2 (COVID-19) mRNA BNT-162b2 vaxTradono [facility] comment on above:Result Comment: qylvb32-63-2212 SARS-CoV-2 (COVID-19) mRNA-1273 vaccineTradono [facility] [id number]-CyI-7 (COVID-19) mRNA BNT-162b2 vax Natali IRAHETA [facility]04-01-2021SARS-CoV-2 (COVID-19) mRNA BNT-162b2 vaxNatali IRAHETA [facility] comment on above:Result Comment: xjdta01-78-3003 influenza virus vaccine, unspecified formulationPaVetCentrick Convore [facility]09-11-2020pneumococcal conjugate vaccine, 13 valentPaCAVI [employer] [facility]-07-2019influenza virus vaccine, unspecified formulationPaVetCentrick Convore [facility]08-14-2018influenza virus vaccine, unspecified formulationPaVetCentrick Convore [facility]08-14-2018zoster vaccine recombinantPaVetCentrick Convore [facility]05-01-2018zoster vaccine recombinantPatrick Convore [facility]09-14-2017influenza virus vaccine, unspecified formulationPaVetCentrick Convore [facility]09-01-2017influenza virus vaccine, unspecified formulationPatrick Convore [facility]08-25-2016influenza virus vaccine, unspecified formulationPaVetCentrick Convore [facility]10-10-2015influenza virus vaccine, unspecified formulationPacielo IRAHETA [facility] Payers DatePayer CategoryPayerPolicy [id number] 2023MedicaidAETNA MEDICARE ADVANTAGE [id number] 2023MedicareAETNA MEDICARE ADVANTAGE AETNA MEDICARE REPLACEMENT [id number] 2022-Present [address] [place] [id number] Medicare HMOAETNA MEDICARE Member Subscriber Plan / Payer (Effective 2021- Present) Name: Norma Escoto Relation to Subscriber: Self Name: Oscar Escoto Payer ID: 1 (NAIC) Type: Not on file Address: [address] [place] [id number] 03-14-2346Zfuzvkx Health [id number] Private Health [id number] [id number] [id number] Health [id number] 2.16.840.1.158225.3.579.2.56631-17-5497Icyuoxr5506157 2.16.840.1.024029.3.579.2.72990-96-0434Pqtyuwa1678281 2.16.840.1.552390.3.579.2.07250-39-6878Mqehzqt7245649 2.16.840.1.061146.3.579.2.81932-73-9000Eltcglm2326172 2.16.840.1.183724.3.579.2.31357-61-9789Etkkiyw6337116 2.16.840.1.179367.3.579.2.60852-06-1422Gebwikg1728597 2.16.840.1.608234.3.579.2.66483-20-2224Tmkmhoo0415402 2.16.840.1.008233.3.579.2.95902-35-8966Spkzurf6723919 2.16.840.1.887004.3.579.2.03072-62-0866Xxiwzry8314299 2.16.840.1.020539.3.579.2.11184-33-1575Svoegsx4487864 2.16.840.1.889323.3.579.2.65631-52-2255Ckqqcla8869677 2.16.840.1.237988.3.579.2.11122-10-1873Wdpyrwg4018867 2.840.1.442796.3.579.2.99782-54-1570Tumfubz0652889 2.840.1.764432.3.579.2.30334-88-7646Qtjsown0889743 2.840.1.518339.3.579.2.19387-62-5305Nfvvxzd42579054 2.840.1.381919.3.579.2.41851-38-1875Eszqhti01397298 2.0.1.822332.3.579.2.58233-11-8191Lfcgxhi807028340 2.840.1.868902.3.579.2.291913-45-8447Ixfwsfk460023802 2.0.1.329878.3.579.2.286343-87-2400Kvhpzvz08643643 2.0.1.938537.3.579.2.87051-30-7558Tmympvr66077464 2.0.1.838239.3.579.2.75489-37-5801Cmlbxqo53806267 2..1.106123.3.579.2.95738-77-6852Klmxlqe153714180 2.840.1.553832.3.579.2.609680-48-8861Ucxkjet75290853 2.0.1.062278.3.579.2.056438-04-5010Mltvawv99475255 2.840.1.559538.3.579.2.201844-71-8891Iswzmmi737444517 2.840.1.344329.3.579.2.688704-65-9153Hcusflg559719367 2.16.840.1.958379.3.579.2.277194-99-6183Snyilus083363692 2..840.1.969006.3.579.2.387920-65-6841Lsflxpz81880131 2.16.840.1.018991.3.579.2.451574-40-6541Tppvnvu04217686 2.840.1.651678.3.579.2.208979-84-4957Bafcxtv39402490 2.840.1.771585.3.579.2.990713-85-3878Psqcxpo35693142 2.840.1.402124.3.579.2.122040-76-8604Vpnggrh0169650 2.840.1.222517.3.579.2.340555-91-9597Bxpkxco2531235 2.840.1.420541.3.579.2.546815-82-8568Xihgwdk8128730 2.840.1.124596.3.579.2.909506-31-4922Xjklhpa6913344 2.840.1.522119.3.579.2.011914-01-7688Unnmobz3213688 2.840.1.691184.3.579.2.838084-87-7961Mgfhbac2226831 2.840.1.154127.3.579.2.218488-95-6271Tuvmroq3711917 2.840.1.384950.3.579.2.617163-61-1882Opiqgkl8985776 2.840.1.666892.3.579.2.804785-78-9824Uqmhjje9865833 2.16.840.1.436470.3.579.2.285856-19-5973Cqejcas1887199 2..0.1.611433.3.579.2.741404-00-9232Loflrym4567581 2.16.840.1.937033.3.579.2.176725-27-9080Dqbzymy1721179 2..0.1.318596.3.579.2.801853-66-5528Pzqvcjx2890573 2..0.1.544791.3.579.2.343439-72-3589Zsumnkx7265597 2..840.1.713818.3.579.2.5494Ekniphg901749104616 79876i19-5uq4-189g-9870-l8lgh1f58390Ftgmqaj49655116 2.0.1.610541.3.579.2.531 Social History DateTypeDetailFacilityStart: 05-07-2022 End: 71-08-0450Xhcrklj smoking statusNever smoked tobacco (finding)[facility] Work Phone: Start: 02-03-2024 End: 86-93-3288Pld Assigned At [facility] start: 63-33-2012Oft Assigned At [facility] Daytontart: 61-29-5911Drklagv smoking statusNeverExecutive Urology of [facility] Hospitaltart: 08-12-2023 End: 37-21-4985Nsvyxvs use and exposureSmokeless tobacco non-userNOMS Healthcare Start: 08-13-2024 End: 96-02-0531Dotetkbqy beverage intakeEx-drinker (finding)[facility] Start: 02-03-2024 End: 19-63-3513Vruigfp of Social functionNOMS HealthcareDo you belong to any clubs or organizations such as denominational groups, unions, fraternal or athletic fabien ups, [...] the mortgage or rent on time?NoNOMS HealthcareStart: 39-30-6180Rvoysrz Commentcaffeine 1-2 cups per day [facility] HealthcareStart: 43-92-2424Ohs assigned at birthNot on fileNOMS Healthcare Start: 10-07-2024 End: 31-04-9598Qzcvwdimj beverage intakeCurrent drinker of alcohol (finding) [facility] SystemStart: 06-30-2015 End: 56-48-3667VziNoam (finding)[facility] [employer] SystemStart: 16-72-9336Ervdew identityIdentifies as male gender (finding)[facility] [employer] SystemStart: 96-24-5080Vkazoy orientationHeterosexual (finding)[facility] SystemSexual OrientationExecutive [facility] NEGATED: Highlighted rowStart: NINFHistory of tobacco usePassive smokerProMediCincinnati Shriners Hospital System Medical Equipment Procedure CodeEquipment CodeEquipment Original TextEquipment IdentifierDatesMes Brd Perfix Plug Med Rpl 51275 Rpl 342431 - [id number] - [id number]: 49-45-4486Oekg Brd Preshape Hawkins 3x5 Rpl 776175 - [id number] - [id number] Start: 96-72-7770Vfpkgtv on above:Description: 13.7 cm x 5.9 cm cut to fit defectLinr Actb 36mm F Ntrl E1 Clr - [id number]: 94-29-6064Bu Fem 36mm Opt G7 Blx D Hip Rpl 650-1057 - [id number]: 02-26-6419Ogl Fem Opt +3mm Tpr Hip Blx D Rpl 650-1067 - [id number]_deyEqbwn: 90-21-4740Kvb Fem 125mm 133d 20 Hi Os - [id number]: 64-30-0878Kcsrg71530_treFzkoy: 07-10-2017 Goals DatePatient GoalDesired Activity/StatePersonal health goalComment on above: Evaluation of progress towards goal: Maximize work with PT at discharge to strengthen R hip Functional Status RnniGalcxjzdkpUhjqkdBokoaozf01-52-8385Dmlzedupaq StatusN/AExecutive [facility]rology of [facility]05-05-2025Patient Health Questionnaire 2 item (PHQ-2) [Reported][facility] CenterIifksbrtqu54-43-8427Ammffvpgvv StatusN/AExecutive [facility]04-16-2024Patient Health Questionnaire 2 item (PHQ-2) [Reported][facility] CenterCltizndpup80-46-1856Ndemd score [AUDIT-C]2 02/03/2024 5:49 PM EDT Mychart, GenericNOMS Bksdcpmzoo30-36-0106Fib often do you have a drink containing alcohol?2-4 times a month 02/03/2024 5:49 PM EDT Mychart, Generic 2-4 times a monthWestern Missouri Mental Health CenterPksqodpjfu12-32-3857Ghh many standard drinks containing alcohol do you have on a typical day?1 or 2 02/03/2024 5:49 PM EDT Mychart, Generic 1 or 2NOMS Nwjgethcnj04-57-4518Nww often do you have 6 or more drinks on 1 occasion?Never 02/03/2024 5:49 PM EDT Mychart, Generic NeverNONortheast Regional Medical CenterElqsfencfu67-38-4470Qomnbmvkaw StatusN/AExecutive [facility]06-13-2022Functional StatusN/A [facility] Clinical Notes 05-07-2022 to 09-28-2025 Note Date & FqwyLbamLvfagcze37-81-2490 History of Present illness Narrative* Sakina Carpenter MD - 09/28/2025 3:05 PM EST [...] Anterior (3), Right Posterior Neck (2), Right Zoroastrianism, Scalp Erythematous scaly papules Patient was counseled [...] limited to risks of scarring, darker or sewing machine assembler pigmentary changes, recurrence, incomplete removal and infection. [...] Anterior (3), Right Posterior Neck (2), Right Zoroastrianism - fluorouracil (Efudex) 5 % cream - Scalp - Apply to directed areas on the scalp twice a day x 14 days. Dispense 30 day supply but only use for 14 days. 7. NEOPLASM OF UNSPECIFIED BEHAVIOR OF BONE, SOFT TISSUE, AND SKIN (2) Mid Back [place] papule - Lesion biopsy Type of biopsy: [...] Next Visit: 6 months documented in this encounterWestern Missouri Mental Health CenterNsmyfejraj44-44-0767 History of Present illness Narrative* MORIS Powers - 09/23/2025 2:15 PM EDTAssociated [...] months or prn MORIS Powers 09/23/25 1426 documented in this encounterMercy [facility]10-28-2025 History of Present illness Narrative* Adir Roger, PEDRO-SLOT OPERATIONS MANAGER - 09/21/2025 8:40 AM EDTAssociated Order(s): Debridement Post-Procedure Diagnose(s): Traumatic open wound of left lower leg with delayed healing Images from the original note were not included. Wound Care Progress Note Patient: Oscar Escoto Date of : 1950 Chief Complaint:: New patient evaluation Chief Complaint Patient presents with Wound Check PCP: NORTH CHAPIN MD Last PCP visit: Unknown SUBJECTIVE/HPI: Oscar is a 75 y.o. male who presents to [facility] for evaluation of 1 ulcer(s) [...] by: Spouse, patient is ambulatory No medical sewer head needed for assessment/examination. No sensitive areas were [...] Degenerative joint disease of pelvic region Afib ([facility]) BPH (benign prostatic hyperplasia) Restless leg [...] healing Past Medical History: Diagnosis Date Afib ([facility]) Back pain lumbar BPH (benign prostatic hyperplasia) Cancer ([facility]) multiple basal cell Chronic pain disorder [...] JOINT: left hip Left 02/08/2023 Performed by Umari Decker MD at [facility] INJECTION BURSA LARGE JOINT: left ischial bursa Left 08/16/2023 Performed by Umair Decker MD at [facility] INJECTION LARGE JOINT BURSA Right 04/12/2017 Performed by Umair Decker MD at [facility] MEDIAL BRANCH NERVE BLOCK: right [id number] 51mbb Right 08/12/2020 Performed by Umair Decker MD at [facility] INSERTION LOOP RECORDER 01/24/2023 Dr Amin at [facility] JOINT REPLACEMENT right hip ORTHOPEDIC SURGERY Left 2013 wrist fixation RADIO FREQUENCY ABLATION: right [id number] Right 09/23/2020 Performed by Umair Decker MD at [facility] REPA[facility] HERNIA INGUINAL WITH MESH Right 09/23/2018 Performed by Kavya Germain DO at [facility] REPAIR HERNIA UMBILICAL WITH MESH N/A 09/23/2018 Performed by Kavya Germain DO at [facility] REPLACEMENT TOTAL JOINT ANTERIOR SUPINE INTERMUSCULAR HIP Right 07/10/2017 Performed by America Ambrocio MD at [facility] SKIN BIOPSY several, see octave board racker yearly TONSILLECTOMY UMBILICAL HERNIA REPAIR 2017 brought [...] 137/61 Pulse: 74 Resp: 18 Temp: 36.7 C (98 F) BMI: Estimated body mass index is 32.12 kg/m as calculated from the following: Height as [...] 1 Traumatic Knee Left;Posterior (Active) Wound Image 09/21/25 09 Site Assessment Red;[place];Yellow 09/21/25 08 Heather-wound Assessment Red;Blanchable erythema;Dry;Induration [...] Status: Wound stable Debridement Performed by: ОЛЕГ Davis Authorized by: ОЛЕГ Davis Associated wounds: Wound 09/21/25 1 Traumatic Knee Left;Posterior Consent: Consent obtained: Verbal and written Consent given by: Patient Risks discussed: Yes Debridement Details: Performed by: DIGITAL DESIGNER Type: Sharp Level: Subcutaneous Tissue, Devitalized tissue [...] Short Term: Engagement in therapy and care. [facility]: Wound closure Education: -The patient/family/caregiver was taught [...] the electronic or other health record ОЛЕГ DAVIS 09/21/25 9:51 AM [facility] [place] [facility] ОЛЕГ Davis 09/21/25 1000 documented in this encounterBarre City HospitalCloudcam10-28-2025 Instructions* Patient Instructions* Lola Wu RN - 09/21/2025 8:40 AM EDT Wound [...] Secure dressings with cut piece of tubi tele tech ACTIVITY: Avoid direct pressure to wound(s) at all times and Reposition at least every 2 hours NUTRITION: High protein diet SKIN CARE: keep wounds covered at all times SWELLING CONTROL: Avoid standing for prolonged periods of time. Elevate legs whenever sitting to level of heart/hips or higher. SUPPLIES: xeroform, gauze, tubi tele tech netting, tape Current Date - 09/21/25 ITEMS TO FOLLOW UP ON: None Length Width Depth Wound 09/21/25 1 Traumatic Knee Left;Posterior-Wound Length (cm): 1.3 cm Wound 09/21/25 1 TraumaticKnee Left;Posterior-Wound Width (cm): 2.8 cm Wound 09/21/25 1 Traumatic Knee Left;Posterior-Wound Depth (cm): 0.5 cm Wound drainage Type Description small Serosanginous Serosanguinous, yellow documented in this encounterMercy Health Perrysburg Hospital10-24-2025 Evaluation note* Diagnosis Onset Date Resolution Status Admit Date [facility] 2:36pm [facility] Work Phone: 1(702) 710-607410-24-2025 Evaluation note* Diagnosis Onset Date Resolution Status Admit Date Encounter for wound care noneactiveOctro[facility] 2024 2:36pmParoxysmal atrial fibrillationacuteNov2024 1:35pmPrimary osteoarthritis of left hipacuteNov2024 1:35pm Restless leg syndromeacuteNov2024 1:35pmSpondylosis of lumbar region without myelopathy or radiculopathyacuteNovember 2024 1:35pm [facility] Work Phone: 1(242) 764-989210-24-2025 Hospital Discharge instructionsAmbulatory Orders* Referral to Wound Care Time Frame: 09/17/25, Location: [facility] Work Phone: 1(673) 802-435510-08-2025 History of Present illness Narrative* America Ambrocio [...] Defer Past Medical History: Diagnosis Date [place] [place] Back pain lumbar BPH (benign prostatic hyperplasia) Cancer [place] [place]) multiple basal cell Chronic pain disorder Hip [...] Ambrocio MD by Milagros Rondon. Provider Statement: America Schroeder MD personally performed the services described in the documentation, as scribed by Milagros Rondon in my presence, and it is both accurate and complete. nehemias Triplett 09/01/25 10:10 AM America Ambrocio MD 09/01/25 1014 documented in this encounterProMedica Health [id number] NoteUT Electrophysiology Consult Note Reason for visit: [...] years ago here he was admitted to [facility] with A. fib with rapid [...] 48 hours from 12/24/2021 to 12/10/2021 at [facility] was reviewed by me and shows PVC burden of less than 1% and PVC count of 6%. Occasional nonsustained atrial tachycardia few beats seen but no atrial fibrillation noted. No ventricular tachycardia noted EKG 10/17/2021 shows sinus rhythm with normal intervals Echocardiogram done at [facility] on 09/06/2021 shows ejection fraction of 60% [...] stress test - Arrhyth (more content not included)...[facility] 07-14-2025 History of Present illness Narrative* Kavya Germain, DO - 07/14/2025 10:15 AM EDT Images from the original note were not included. [facility] [id number] CONSULT NOTE CHIEF COMPLAINT Chief Complaint Patient presents with Hernia RECURRENT RIGHT SIDE INGUINAL HERNIA, REFERRED BY DR TAVARES Moore Agapito Kaleb is a 75 y.o. male who [...] not have not an ultrasound performed at [facility] on 07/02/2025 which demonstrated no evidence of testicular mass torsion orchitis or epididymitis. There were bilateral varicoceles andsmall bilateral hydroceles. 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 [employer] moving furnitureand boxes and bags of [...] 02/08/2023 Performed by Umair Decker MD at [facility] INJECTION BURSA LARGE JOINT: left ischial bursa Left 08/16/2023 Performed by Umair Decker MD at [facility] INJECTION LARGE JOINT BURSA Right 04/12/2017 Performed by Umair Decker MD at [facility] INJECTION MEDIAL BRANCH NERVE BLOCK: right L34 45 51mbb Right 08/12/2020 Performed by Umair Decker MD at [facility] INSERTION LOOP RECORDER 01/24/2023 Dr Amin at [facility] JOINT REPLACEMENT right hip ORTHOPEDIC SURGERY Left 2012 wrist fixation RADIO FREQUENCY ABLATION: right [id number] Right 09/23/2020 Performed by Umair Decker MD at [facility] REPAIR HERNIA INGUINAL WITH MESH Right 09/23/2018 Performed by Kavya Germain DO at [facility] REPAIR HERNIA UMBILICAL WITH MESH N/A 09/23/2018 Performed by Kavya Germain DO at [facility] REPLACEMENT TOTAL JOINT ANTERIOR SUPINE INTERMUSCULAR HIP Right 07/10/2017 Performed by America Ambrocio MD at [facility] SKIN BIOPSY several, see octave board racker yearly TONSILLECTOMY UMBILICAL HERNIA REPAIR 2017 brought [...] Resource Strain: Low Risk (02/03/2024) Received from [facility] Overall Financial Resource Strain (CARDIA) Difficulty of Paying Living Expenses: Not hard at all Food Insecurity: No Food Insecurity (10/07/2024) Hunger Screening Food Insecurity - Worry: Never True Food Insecurity - Inability: Never True Transportation Needs: No Transportation Needs (02/03/2024) Received from [facility] PRAPARE - Transportation Lack of Transportation (Medical): No Lack of Transportation (Non-Medical): No Physical Activity: Sufficiently Active (02/03/2024) Received from [facility] Exercise Vital Sign Days of Exercise per Week: 3 days Minutes of Exercise per Session: 60 min Stress: No Stress Concern Present (02/03/2024) Received from [facility] [place] of Occupational Health - Occupational Stress Questionnaire Feeling of Stress : Not at all Social Connections: Moderately Integrated (02/03/2024) Received from [facility] Social Connection and Isolation Panel [NHANES] Frequency of Communication with Friends and Family: Once a week Frequency of Social Gatherings with Friends and Family: Once a week Attends Judaism Services: More than 4 times per year Active Member of Clubs or Organizations: Yes Attends Club or Organization Meetings: More than 4 times per year Marital Status: Interpersonal Safety: Unknown (01/16/2024) Received from [facility] [place] Safety & Environment Fear of Current or Ex-Partner: Not on file Emotionally Abused: Not on file Physically Abused: Not on file Sexually Abused: Not on file Physically or Sexually Abused: Not on file Housing Instability: Low Risk (02/03/2024) Received from [facility] Housing Stability Vital Sign Unable to [...] patient/family/caregiver Referring and communicating with other health acute care certified nursing assistant - Kavya Germain DO 07/14/25 10:35 AM This note was created with the assistance of a speech recognition program. While intending to generate a timely document that accurately reflects the content of the visit, no guarantee can be provided that every grammatical or spelling mistake has been or will be identified or corrected. Thank you for your understanding. documented in this encounterMer[facility] History of Present illness Narrative* [place] [...] Relevant Orders US scrotum documented in this encounterWestern Missouri Mental Health CenterMftmawiakk90-15-6849 History of Present illness Narrative* Sakina Carpenter [...] limited to risks of scarring, darker or sewing machine assembler pigmentary changes, recurrence, infection, and incomplete removal [...] lidocaine used: 2.0 cc Previous accession number: [id number] Patient instructed to notify office of any [...] limited to risks of scarring, darker or sewing machine assembler pigmentary changes, recurrence, infection, and incomplete removal [...] lidocaine used: 2.0 cc Previous accession number: [id number] Patient instructed to notify office of any signs of recurrence prior to next scheduled visit. Next Visit: as scheduled documented in this encounterWestern Missouri Mental Health CenterZjylkbhlgs88-84-1072 History of Present illness Narrative* Sakina Carpenter [...] BCC Check Margins: Yes Previous accession number: [id number] Next Visit: Has follow up scheduled documented in this encounterWestern Missouri Mental Health CenterWfrpgjaoae77-39-3468 NoteSUBJECTIVE Reason for Visit: Oscar Escoto is a 75 y.o. year old male patient being seen for 6-month follow-up visit. HPI: Oscar Escoto is a 75 y.o. year old male with significant medical history of atrial fibrillation that was diagnosed few years ago here he was admitted to [facility] with A. fib with rapid [...] Musculoskeletal: Inspection: no join (more content not included)...[facility]05-19-2025 History of Present illness Narrative* Nneka Hernandez [...] for requiring urgent evaluation. documented in this encounterWestern Missouri Mental Health CenterPqzinqaceg37-46-8838 Hospital Discharge instructions Patient Education 04/05/2025 13:16:02 [...] including vitamins, herbs, eye drops, creams, and fcli-emr-mzpzhan medicines. Any problems you or family members [...] provider tells you to take them. Taking qpkp-njm-wilttpi medicines, vitamins, herbs, and supplements. General instructions [...] provider. Document Revised: 05/11/2022 Document Reviewed: 05/11/2022 registracija vozila Patient Education 2023 [employer]. Follow Up Care 10/12/2024 16:19:37 With:ESEQUIEL RUSSELL, Natali Gonzalez, URL Address: [facility] [address] [place] [address]- [phone] When: Unknown Comments:sched orchiectomy in September [facility] 05-12-2025 NotePatient Education Oncology Orchiectomy An orchiectomy [...] including vitamins, herbs, eye drops, creams, and bzzy-uiu-wayzzac medicines. ??? Any problems you or family [...] tells you to take them. ??? Taking lkui-ecd-bbofqbw medicines, vitamins, herbs, and supplements. General instructions [...] ??? You may have (more content not included)...[facility] 03-29-2025 History of Present illness Narrative* [...] wasn't as active. Plans on returning to [facility] several days a week. Resumed walking [...] Anxiety disorder, unspecified type documented in this encounterWestern Missouri Mental Health CenterIijggtqsad45-43-1356 History of Present illness Narrative* Sakina Carpenter [...] ACTINIC KERATOSIS (9) Left Buccal Cheek, Left Zoroastrianism, Right Buccal Cheek, Right Dorsal Hand (2), [...] limited to risks of scarring, darker or sewing machine assembler pigmentary changes, recurrence, incomplete removal and infection. [...] skin lesion - Left Buccal Cheek, Left Zoroastrianism, Right Buccal Cheek, Right Dorsal Hand (2), [...] lesion: 2.0 x 1.7 cm Right Forearm [place] scaly plaque Lesion biopsy Type of biopsy: [...] lesion: 2.3 x 2.0 cm Left sanders [place] papule Lesion biopsy Type of biopsy: tangential [...] results, 6 months-skin check documented in this encounterWestern Missouri Mental Health CenterRbzxikonus29-90-7181 History of Present illness Narrative* Nneka Hernandez [...] develop for requiring urgent evaluation. Nneka Hernandez STOCK TRACER-SLOT OPERATIONS MANAGER documented in this encounterWestern Missouri Mental Health CenterKwvjuedvfh64-39-5111 Note [id number] [facility]04-07-2025 [facility] SURGERY Clinical Discharge Summary PERSON INFORMATION Name OSCAR ESCOTO Age 74 Years 1950 Sex MALE Language Romansh PCP [place] Marital Status Phone Med Service Ambulatory Surgery N [id number] Acct# Arrival 03/01/2025 08:45:44 Visit Reason SURGERY - LEFT KNEE ARTHROSOCPY - LATERAL MENISCUS TEAR Acuity LOS 066 02:01 Address: [address] [place] [address] Comment: PROVIDER INFORMATION VITALS INFORMATION Vital Sign [...] mouth) every day. Comme (more content not included)...[facility]Fxznrzgn86-77-7088 Telephone encounter Note* Telephone Encounter - Nneka Hernandez NP - 02/26/2025 1:00 PM EDT Post op pain rx. PDMP reviewed [facility] CenterVogvybwvdi40-59-2073 Miscellaneous Notes* Telephone Encounter - Nneka Hernandez NP - 02/26/2025 1:00 PM EDT Post op pain rx. PDMP reviewed documented in this encounterWestern Missouri Mental Health CenterQyddcekyet19-34-5432 History of Present illness Narrative* MORIS Muniz [...] SCOPE 03/01/25 @ [facility] PAT 02/02/25 @ [address] [place] [address] PAT 02/02/25 @ [facility] Follow up for Post-Op 03/15/25 @ [address] [place] [address] NNEKA. documented in this encounterWestern Missouri Mental Health CenterSebpuzzcah03-50-4414 History of Present illness Narrative* Jr. Enrrique Waldrop, - 12/25/2024 9:30 AM EST Images from the original note were not included. HISTORY OF PRESENT ILLNESS: EST PT Oscar Escoto is an 74 y.o. @ male. (EST PT-PREVIOUSLY SAW MARY LOU JEREMÍAS ON 11/30/24) RECHECK (L) KNEE PAIN; HERE FOR MRI RESULTS DONE ON 12/18/24 AT [facility]. XRAY B/L AP WB KNEES 11/09/24 IN [facility] XRAY (L) KNEE 10/07/24 [facility] MRI (L) KNEE 12/18/24 [facility] DEPO MEDROL INJ 11/09/24 - [...] for requiring urgent evaluation. documented in this encounterWestern Missouri Mental Health CenterJboxrwpdoj07-98-6939 Telephone encounter Note* Telephone Encounter - Elaina Damon - 12/11/2024 11:22 AM EST Patient called stating that [facility] in [place] did not receive the rx needed prior to MRI being done. Please advise. [facility] CenterTithqtogon10-01-8977 Miscellaneous Notes* Telephone Encounter - Elaina Damon - 12/11/2024 11:22 AM EST Patient called stating that [facility] in [place] did not receive the rx needed prior to MRI being done. Please advise. documented in this encounterWestern Missouri Mental Health CenterZbrciljjwy37-40-2802 Telephone encounter Note* Telephone Encounter - HARSHIL Goldberg - 12/10/2024 1:21 PM EST Faxed referral, MRI order, office notes and XR report to [facility]. [facility] CenterHihovmnolw89-08-2327 Miscellaneous Notes* Telephone Encounter - HARSHIL Goldberg - 12/10/2024 1:21 PM EST Faxed referral, MRI order, office notes and XR report to [facility]. * Telephone Encounter - Elaina [place]on - 12/10/2024 11:33 AM EST Patient called and left that he spoke with [facility]. They received authorization for his MRI. They have not received requested notes so they cannot schedule him until they receive the notes. Please advise. documented in this encounterWestern Missouri Mental Health CenterQnvejdktou97-42-7965 Telephone encounter Note* Telephone Encounter - Elaina Damon - 12/10/2024 11:33 AM EST Patient called and left that he spoke with [facility]. They received authorization for his MRI. They have not received requested notes so they cannot schedule him until they receive the notes. Please advise. [facility] CenterDhtrxwkxre11-14-3686 History of Present illness Narrative* Mary Lou [...] f/u s/p MRI to be done at [facility]. documented in this encounterWestern Missouri Mental Health CenterSabbzevnfk33-28-1937 NoteUT Electrophysiology Consult Note Reason for visit: [...] years ago here he was admitted to [facility] with A. fib with rapid [...] 48 hours from 12/24/2021 to 12/10/2021 at [facility] was reviewed by me and shows PVC burden of less than 1% and PVC count of 6%. Occasional nonsustained atrial tachycardia few beats seen but no atrial fibrillation noted. No ventricular tachycardia noted EKG 10/17/2021 shows sinus rhythm with normal intervals Echocardiogram done at [facility] on 09/06/2021 shows ejection fraction of 60% [...] Lumbosacral spondylosis without myel (more content not included)...[facility]12-16-2024 History of Present illness Narrative* Mary Lou Diane, DIGITAL DESIGNER - 11/09/2024 11:30 AM ESTAssociated Order(s): L [...] He has been [facility] with improvement in strength but continues to [...] the left knee done on 10/08/24 at [facility] reveals tricompartmental arthritis, no fractures noted. I [...] and he understands this documented in this encounterWestern Missouri Mental Health CenterHgvrbqfcqk73-49-7678 History of Present illness Narrative* Yenny Rowe, [...] to be instructed in home exercise program. [facility] Goals: To be met in 10 weeks [...] Please sign below. Date: documented in this encounterWestern Missouri Mental Health CenterCxdzwrosit74-47-1800 History of Present illness Narrative* Yenny Rowe, [...] Subjective: left knee, worse with activity Pain: 1-7/10 Objective: PT Evaluation (10/20/2024) Left [...] to be instructed in home exercise program. [facility] Goals: To be met in 10 weeks [...] Please sign below. Date: documented in this encounterWestern Missouri Mental Health CenterAfotvsuwoh98-57-2618 Hospital Discharge instructions Patient Education 10/12/2024 16:12:18 [...] Follow these instructions at home: Medicines Take naak-qbo-dpwzdhs and prescription medicines only as told by [...] provider. Document Revised: 06/20/2022 Document Reviewed: 06/20/2022 registracija vozila Patient Education 2023 [employer]. Follow Up Care 06/24/2023 16:43:14 With:ESEQUIEL RUSSELL, Natali Gonzalez, URL Address: [facility] [address], [place] [address] [phone] When: Unknown Comments:6 mos [facility] NotePatient Education Urology Epididymitis Epididymitis is [...] these instructions at home: Medicines ??? Take gzci-bih-alswhio and prescription medicines only as told by [...] wear a scrotal support, such as a ederckstrap. Wear it as told by your health care provider. ??? Try taking a sitz bath to help with discomfort. This is a warm water bath that is taken while you are sitting down. The water should come up to your hips and should cover your buttocks. Do this 3?4 times per day or as told by your heal (more content not included)...[facility]11-13-2024 History of Present illness Narrative* Cecilia Anderson PA-C - 10/07/2024 1:30 PM EST [facility] [address] [place] [address] Patient: Oscar Escoto Sex: male : 1950 [...] Impairment. Past Medical History: Diagnosis Date Afib ([facility]) Back pain lumbar BPH (benign prostatic hyperplasia) Cancer ([facility]) multiple basal cell Chronic pain disorder [...] 02/08/2023 Performed by Umair Decker MD at [facility] INJECTION BURSA LARGE JOINT: left ischial bursa Left 08/16/2023 Performed by Umair Decker MD at [facility] INJECTION LARGE JOINT BURSA Right 04/12/2017 Performed by Umair Decker MD at [facility] INJECTION MEDIAL BRANCH NERVE BLOCK: right L34 45 51mbb Right 08/12/2020 Performed by Umair Decker MD at [facility] INSERTION LOOP RECORDER 01/24/2023 Dr Amin at [facility] JOINT REPLACEMENT right hip ORTHOPEDIC SURGERY Left 2013 wrist fixation RADIO FREQUENCY ABLATION: right [id number] Right 09/23/2020 Performed by Umair Decker MD at [facility] REPAIR HERNIA INGUINAL WITH MESH Right 09/23/2018 Performed by Kavya Germain DO at [facility] REPAIR HERNIA UMBILICAL WITH MESH N/A 09/23/2018 Performed by Kavya Germain DO at [facility] REPLACEMENT TOTAL JOINT ANTERIOR SUPINE INTERMUSCULAR HIP Right 07/10/2017 Performed by America Ambrocio MD at [facility] TONSILLECTOMY WRIST SURGERY No Known Allergies [...] Low Risk (02/03/2024) Received from [facility] Overall Financial Resource Strain (CARDIA) Difficulty of Paying Living Expenses: Not hard at all Food Insecurity: No Food Insecurity (10/07/2024) Hunger Screening Food Insecurity - Worry: Never True Food Insecurity - Inability: Never True Transportation Needs: No Transportation Needs (02/03/2024) Received from [facility] PRAPARE - Transportation Lack of Transportation (Medical): No Lack of Transportation (Non-Medical): No Physical Activity: Sufficiently Active (02/03/2024) Received from [facility] Exercise Vital Sign Days of Exercise per Week: 3 days Minutes of Exercise per Session: 60 min Stress: No Stress Concern Present (02/03/2024) Received from [facility] [place] of Occupational Health - Occupational Stress Questionnaire Feeling of Stress : Not at all Social Connections: Moderately Integrated (02/03/2024) Received from [facility], [facility] Social Connection and Isolation Panel [NHANES] Frequency of Communication with Friends and Family: Once a week Frequency of Social Gatherings with Friends and Family: Once a week Attends Judaism Services: More than 4 times per year Active Member of Clubs or Organizations: Yes Attends Club or Organization Meetings: More than 4 times per year Marital Status: Interpersonal Safety: Unknown (01/16/2024) [facility] [place] Safety & Environment Fear of Current or Ex-Partner: Not on file Emotionally Abused: Not on file Physically Abused: Not on file Sexually Abused: Not on file Physically or Sexually Abused: Not on file Housing Instability: Low Risk (02/03/2024) Received from [facility], [facility] Housing Stability Vital Sign Unable to [...] Anderson PA-C 10/07/24 1437 documented in this encounterMercy [facility]09-19-20[facility] History of Present illness Narrative* Sakina Carpenter [...] Scalp (5), Right Anterior Neck, Right [place],Right Parotid Area, Right Posterior Neck, Right Preauricular Area, Right [place], Right Zoroastrianism, Right Temporal Scalp Erythematous scaly papules Patient [...] limited to risks of scarring, darker or sewing machine assembler pigmentary changes, recurrence, incomplete removal and infection. [...] Scalp (5), Right Anterior Neck, Right [place], Right Parotid Area, Right Posterior Neck, Right Preauricular Area, RightSuperior [place], Right Zoroastrianism, Right Temporal Scalp 6. History of basal [...] 6 months skin check documented in this encounterWestern Missouri Mental Health CenterRyndfzvfey06-33-6915 Hospital Discharge instructions Patient Education 06/24/2023 16:36:03 [...] urethra. Follow these instructions at home: Take yntr-lok-innbuzm and prescription medicines only as told by [...] provider. Document Revised: 05/30/2022 Document Reviewed: 05/30/2022 registracija vozila Patient Education 2022 [employer]. Follow Up Care 05/07/2022 15:53:47 With:ESEQUIEL RUSSELL, Natali Gonzalez, URL Address: [facility] [address] , [place] [address] [phone] When: Unknown Comments:1 yr w/ PSA [facility] [place] 01-24-2023 NotePROCEDURE: XR FOOT LT MIN 3 [...] the first metatarsal Electronically authenticated by: MARÍA PITTMAN Date: 2022-12-18 09:32[facility]12-13-2022 NotePROCEDURE: XR FOOT LT MIN 3 [...] Electronically authenticated by: RAZ MATOS Date: 2022-11-06 15:27[facility]11-23-2022 NotePROCEDURE: XR FOOT LT MIN 3 [...] Electronically authenticated by: RAZ MATOS Date: 2022-10-17 10:46[facility]11-03-2022 NotePROCEDURE: XR FOOT LT MIN 3 VIEWS [...] with postsurgical changes Electronically authenticated by: MARÍA PITTMAN Date: 2022-09-27 18:29[facility]kglkrli16-52-1838 NotePROCEDURE: XR FOOT RT MIN 3 VIEWS [...] metatarsal-phalangeal joint fusion Electronically authenticated by: MARÍA PITTMAN Date: 2022-05-15 21:39[facility] HospitalIoctejxw88-34-2455 Hospital Discharge instructions Patient Education 05/07/2022 15:46:13 [...] 11/11/2006 Document Revised: 07/31/2019 Document Reviewed: 10/11/2017 registracija vozila Patient Education 2020 [employer]. 05/07/2022 15:46:01 Benign Prostatic Hyperplasia Benign Prostatic [...] urethra. Follow these instructions at home: Take yvjf-sdr-jgeaaku and prescription medicines only as told by [...] 11/11/2006 Document Revised: 10/06/2019 Document Reviewed: 12/16/2017 registracija vozila Patient Education 2020 [employer]. Follow Up Care 09/04/2021 16:41:31 With:Natali IRAHETA MD, URL Address: [facility] [address], [place] [address] [phone] When:Within 1 Year(s) Comments:f/u in 1 year with PSA and NAIMA [facility] evaluation + Plan note Future Appointments Appointment Date:05/13/2023 03:00:00 PM Scheduled Provider:Natali IRAHETA MD Location:[facility] Appointment Type:URO Office Visit Diagnostic Tests Pending * PSA Total 05/07/22 [facility] evaluation + Plan note Future Appointments Appointment Date:06/29/2024 03:00:00 PM Scheduled Provider[facility] Office Visit Diagnostic Tests Pending * PSA Total 06/24/23 [facility] evalvlqgmd + Plan note Future Appointments Appointment Date:04/12/2025 01:15:00 PM Scheduled Provider:[facility]atali IRAHETA MD [facility] Office Visit Diagnostic Tests Pending * PSA Total 10/12/24 [facility] evaluation + Plan note Future Appointments Appointment Date:10/25/2025 10:15:00 AM Scheduled Provider:Natali IRAHETA MD Location:[facility] Appointment Type:URO Office Visit [facility] evaluation noteNo assessment information available [facility] Work Phone: Evaluation note* Diagnosis Transient [...] unspecified chronicity- Primary documented [facility] encounter [facility]* Diagnosis Medicare annual wellness visit, [...] (CMS/HCC) Atrial fibrillation documented in this encounter [facility] HealthcareEvaluation note* Diagnosis Medicare annual wellness [...] Other postprocedural status documented in this encounter [facility] HealthcareEvaluation note* Diagnosis Medicare annual wellness [...] including hip documented in this encounter [facility] HealthcareEvaluation note* Diagnosis Medicare annual wellness [...] H/O epididymitis documented in this encounter [facility] HealthcareEvaluation note* Diagnosis Chronic epididymitis- Primary documented in this encounter [facility] SystemEvaluation note* Diagnosis Left hip pain- Primary Pain in joint, pelvic region and thigh documented in this encounter [facility] SystemEvaluation note* Diagnosis Primary osteoarthritis of left hip- Primary Status post total hip replacement, right documented in this encounter [facility] SystemEvaluation note* Diagnosis Traumatic open wound of left lower leg with delayed healing- Primary documented in this encounter [facility] SystemEvaluation note* Diagnosis Primary osteoarthritis of left hip- Primary documented in this encounter [facility] SystemEvaluation note* Diagnosis Medicare annual wellness visit, [...] fibrillation Inguinal pain, right- Primary H/O epididymitis Seborrheic keratosis- Primary Capillary angioma Nevus, non-neoplastic Lentigines Melanocytic nevus of trunk Benign neoplasm of skin of trunk, except scrotum History of basal cell carcinoma Personal history of other malignant neoplasm of skin Actinic keratosis Neoplasm of unspecified behavior of bone, soft tissue, and skin [facility] N[facility]ative No data available for this section [facility] InstructionsNot on filedocumented in this encounter [facility] filedocumented in this encounter [facility]ructionsNot on filedocumented in this encounter [facility] SystemInstructionsNot on filedocumented in this encounter [facility]* Attachments The following attachments cannot be sent through Care Everywhere. * Hip pain ED discharge instructions (Romansh) [facility] No data available for this section [facility] reason for referral (narrative)* Clinic-Administered Medication (Routine) - ClosedSpecialtyDiagnoses / ProceduresReferred By ContactReferred To ContactOrthopaedic Surgery Procedures L Inj/Asp: L knee Mary Lou Diane NP [address] [address] Phone: tel: fax: Referral IDStatusReasonStart DateExpiration DateVisits RequestedVisits [id number]/16/20246/ [facility] for visit Narrative* Rehabilitation - Outpatient (Routine) - AuthorizedSpecialtyDiagnoses / ProceduresReferred By ContactReferred To ContactPhysical Therapy Diagnoses Pain in left knee Procedures [place] PHYSICAL THERAP[facility] EVALUATION LOW COMPLEX 20 MINS [place] OFFICE/OUTPATIENT [place] Cecilia Sanchez MD [address] [place] [address] Phone: tel: fax: Yenny Rowe, PT Referral IDSHeidi DateExpiration DateVisits RequestedVisits [id number] [facility] HealthcareReason for visit Narrative* Rehabilitation - Outpatient (Routine) - AuthorizedSpecialtyDiagnoses / ProceduresReferred By ContactReferred To ContactPhysical Therapy Diagnoses Pain in left knee Procedures [place] PHYS[facility] TH[facility]AP[facility] EVALUATION LOW COMPLEX 20 MINS [facility] [facility]PATIENT [facility] Cecilia Anderson MD [address] [place] [address] Phone: tel: fax: Yenny Rowe, PT Referral IDStaEdwige DateExpiration DateVisits RequestedVisits [id number] [facility] Healthcare Chief Complaint and Reason for Visit Chief Complaint Forehead Wound Chief Complaint Forehead Wound Forehead Wound Chief Complaint Admit Date Wound posterior left knee September 17, 2025 2:36pm Reason for Visit Admit Date Encounter for wound care September 17 025 2:36pm Chief Complaint Admit Date Wound posterior left knee September 17, 2025 2:36pm L08.9 T14.8XXA September 17, 2025 7 :10pm Established Patient September 29, 2025 1 :35pm Reason for Visit Admit Date Encounter for wound care September 17 025 2:36pm Paroxysmal atrial fibrillation September 29, 2025 1:35pm Primary osteoarthritis of left hip Novem 2024 1:35pm Restless leg syndrome September 29, 2025 1:35pm Spondylosis of lumbar region without myelopathy or radiculopathy September 29, 2025 1:35pm Family History No Family History Records Found [...] Time Advance Directives No May 31 8:07am Advance Directive Response Recorded Date/ Time Advance Directives No May 31 7:07am Summary Purpose Additional Source Comments Care Team [...] DateEnd Date North Chapin MD [address] [place] [address] [facility] - [facility] North Chapin MD [address] [place] [address] PCP - Aet02/24/24Team MemberRelationshipSpecialtyStart DateEnd Date North Chapin MD [address] [place] [address] [facility] North Chapin MD [address] [place] [address] PCP - Aet02/24/24Team MemberRelationshipSpecialtyStart DateEnd Date North Chapin MD [address] [place] [address] PCP - [facility] Medicine02/04/24 North Chapin MD [address] [place] [address] PCP - [employer]02/24/24Team MemberRelationshipSpecialtyStart DateEnd Date North Chapin MD [address] [place] [address] [facility]/24 North Chapin MD [address] [place] [address] PCP - [employer]02/24/24Team MemberRelationshipSpecialtyStart DateEnd Date North Chapin MD [address] [place] [address] PCP - [facility] Medicine02/04/24 North Chapin MD [address] [place] [address] PCP - [employer]02/24/24Team MemberRelationshipSpecialtyStart DateEnd Date North Chapin MD [address] [place] [address] [facility] North Chapin MD [address] [place] [address] PCP - [employer]02/24/24Team MemberRelationshipSpecialtyStart DateEnd Date North Chapin MD [address] [place] [address] PCP - [facility] Medicine02/04/24 North Chapin MD [address] [place] [address] PCP - [employer]02/24/24Team MemberRelationshipSpecialtyStart DateEnd Date North Chapin MD [address] [place] [address] PCP - [facility] Medicine02/04/24 North Chapin MD [address] [place] [address] PCP - Aet02/24/24Team MemberRelationshipSpecialtyStart DateEnd Date North Chapin MD [address] [place] [address] PCP - [facility] Medicine02/04/24 North Chapin MD [address] [place] [address] PCP - Aet02/24/24Team MemberRelationshipSpecialtyStart DateEnd Date North Chapin MD [address] [place] [address] PCP - [facility] Medicine02/04/24 North Chapin MD [address] [place] [address] PCP - [employer]4Team MemberRelationshipSpecialtyStart DateEnd Date North Chapin MD [address] [place] [address] [facility] - [facility]/04/24 North Chapin MD [address] [place] [address] PCP - [employer]4Team MemberRelationshipSpecialtyStart DateEnd Date North Chapin MD [address] [place] [address] PCP - [facility] Medicine02/04/24 North Chapin MD [address] [place] [address] PCP - [employer]02/24/24Team MemberRelationshipSpecialtyStart DateEnd Date North Chapin MD [address] [place] [address] [facility] North Chapin MD [address] [place] [address] PCP - [employer]4Team MemberRelationshipSpecialtyStart DateEnd Date North Chapin MD [address] [place] [address] PCP - [facility] Medicine02/04/24 North Chapin MD [address] [place] [address] PCP - [employer]02/24/24Team MemberRelationshipSpecialtyStart DateEnd Date North Chapin MD [address] [place] [address] [facility] - [facility]02/04/24 North hCapin MD [address] [place] [address] PCP - [employer]02/24/24Team MemberRelationshipSpecialtyStart DateEnd Date North Chapin MD [address] [place] [address] PCP - [facility] Medicine02/04/24 North Chapin MD [address] [place] [address] PCP - [employer]02/24/24Team MemberRelationshipSpecialtyStart DateEnd Date North Chapin MD [address] [place] [address] PCP - [facility] Medicine02/04/24 North Chapin MD [address] [place] [address] PCP - [employer]02/24/24Team MemberRelationshipSpecialtyStart DateEnd Date North Chapin MD [address] [place] [address] PCP - GeneralFamily Wqlputbe76/13/24Team MemberRelationshipSpecialtyStart Date End Date North Chapin MD [address] [place] [address] PCP - [facility] Medicine02/04/24 North Chapin MD [address] [place] [address] PCP - [employer]02/24/24Team MemberRelationshipSpecialtyStart DateEnd Date North Chapin MD [address] [place] [address] PCP - [facility] Medicine02/04/24 North Chapin MD [address] [place] [address] PCP - [employer]02/24/24Team MemberRelationshipSpecialtyStart DateEnd Date North Chapin MD [address] [place] [address] [facility]/24 North Chapin MD [address] [place] [address] PCP - [employer]02/24/24Team MemberRelationshipSpecialtyStart DateEnd Date North Chapin MD [address] [place] [address] PCP - [facility]02/04/24 North Chapin MD [address] [place] [address] PCP - [employer]02/24/24Team MemberRelationshipSpecialtyStart DateEnd Date North Chapin MD PCP - [facility]10/07/24Team MemberRelationshipSpecialtyStart Date End Date North Chapin MD PCP - [facility]10/07/24Team MemberRelationshipSpecialtyStart Date End Date North Chapin MD PCP - [facility]10/07/24 Team Status: Active Member Role/Relationship Status [...] Start: September 17, 2025 End: September 17, 2025Team MemberRelationshipSpecialtyStart DateEnd Date North Chapin MD PCP - GeneralFamily Drcuxqwl90/13/24Team MemberRelationshipSpecialtyStart Date End Date North Chapin MD PCP - GeneralFamily Ujbkxrvg33/1/233 North Chapin MD PCP - GeneralFamily Medicine02/04/24 North Chapin MD [address] [place] [address] PCP - [employer]02/24/24Team MemberRelationshipSpecialtyStart DateEnd Date North Chapin MD [facility]/04/24 North Chapin MD [address] [place] [address] PCP - [employer]02/24/24Team MemberRelationshipSpecialtyStart DateEnd Date North Chapin MD PCP - [facility]mi Medicine02/04/24 North Chapin MD [address] [place] [address] PCP - [employer]02/24/24Team MemberRelationshipSpecialtyStart DateEnd Date North Chapin MD PCP - [facility]10/07/24Team MemberRelationshipSpecialtyStart Date End Date North Chapin MD PCP [facility]02/04/24 North Chapin MD [address] [place] [address] Critical access hospital02/24/24Team MemberRelationshipSpecialtyStart DateEnd Date North Chapin MD [facility]02/04/24 North Chapin MD [address] [place] [address] Critical access hospital02/24/24 Team Status: Inactive Member Role/Relationship Status Dates Isamar Dominguez APRN Attending Provider Active Start: September 17, 2025 End: September 17, 2025 Team Status: Active Member Role/Relationship Status Dates Natali Iraheta MD Attending Provider Active St art: September 20, 2025 Team Status: Inactive Member Role/Relationship Status Dates North Chapin MD Primary Care Provider Active S tart: September 29, 2025 End: September 29, 2025[facility] Chapin MDAttending ProviderActiveStart: September 29, 2025 End: September 29, 2025 Goals (unrecognized section and content) Goals may be documented in a n alternate section (unrecognized sect ion and content) No Status Records FoundNo Status Records FoundNo Status Records FoundNo Status Records FoundNo Status Records FoundNo Status Records FoundNo Status Records FoundNo Status Records FoundNo Status Records Found INFORMATION SOURCE (unrecogn ized section and content) DATE CREATED AUTHOR 04/10/[address] [facility] DATE CREATED AUTHOR AUTHOR'S ORGANIZ ATION 04/02/2025 [facility] DATE CREATED AUTHOR AUTHOR'S ORGANIZ ATION 07/16/2025 [facility] DATE CREATED AUTHOR AUTHOR'S ORGANIZ ATION 08/17/2025 [facility] DATE CREATED AUTHOR AUTHOR'S ORGANIZ ATION 09/09/2025 [facility] DATE CREATED AUTHOR AUTHOR'S ORGANIZ ATION 09/22/2025 [facility] DATE CREATED AUTHOR AUTHOR'S ORGANIZ ATION 09/25/2025 [facility] DATE CREATED AUTHOR AUTHOR'S ORGANIZ ATION 09/25/2025 [facility] DATE CREATED AUTHOR AUTHOR'S ORGANIZ ATION 09/30/2025 [facility] EPIC Reason for Visit (unrecogniz ed section and content) ReasonCommentsPainReasonCommentsFollow-upReasonCommentsMed RefillReasonOnset ZvqqYevvnhlpHDL82/16/2025ReasonOnset LrkwCpovwxjlST07/17/2025ReasonComments Follow-upReasonCommentsKnee PainReasonCommentsPre-op ExamReasonCommentsPain ReasonCommentsMedicare Annual Wellness Visit SubsequentWellnessSleeping medicationReasonCommentsSaucerization excisionReasonCommentsFollow-upPossible herniaReasonCommentsHerniaRECURRENT RIGHT SIDE INGUINAL HERNIA, REFERRED BY DR DOWpecialtyDiagnoses / ProceduresReferred By ContactReferred To Contact General Surgery Diagnoses Inguinal pain, right History of inguinal hernia Procedures [place] OFF[place] OUTPATIENT VISIT 60-[address] [facility] [id number] (SNOMED CT) - AMB REFERRAL TO GENERAL SURGERY North Chapin MD [address] [place] [address] Phone: tel: fax: Kavya Germain, [address] [place] [address] Phone: tel: fax: Referral IDStatusReasonStart DateExpiration DateVisits RequestedVisits [id number]/re-est LT hip pain, no injections or therapy, LIBRADO 06/21/22ReasonCommentsWound CheckReason CommentsPainLT hip injection, saw Dr. Ambrocio 09/01/25ReasonCommentsSkin Check FOR RECORDS PERTAINING TO PATIENTS WHO ARE [...] BE BASED ON THE PRIMARY CLINICAL RECORDS. [employer] [facility]. provides no warranty or guarantee of the accuracy or completeness of information in this document.
[2025-09-30 11:34] LABS: INR 1.09; Partial Thromboplastin Time 30.8 sec (22.3-36.2); Prothrombin Time 11.5 sec (9.0-11.6)
[2025-09-30] MEDS: CEFAZOLIN SODIUM 2 GM/50 ML D5W PREMIX IV (14:42)
[2025-09-30] MEDS: MINERAL OIL LIGHT STERILE 10 ML VIAL TOPICAL (15:21)
[2025-09-30] MEDS: BACITRACIN OINTMENT 28.4 GM TUBE 1 APPLIC TOPICAL (15:30)
--- NOTE | 2025-09-30 15:43 | P.URON_ITS ---
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 Simple right orchiectomy Anesthesia: General-LMA Primary Surgeon: Ranjit Solares Complications: None Estimated blood loss (mL): 5 Findings: Enlarged and indurated epididymis Specimens: Right testicle epididymis and spermatic cord Drains: None Indications for Procedures: This gentleman has had chronic right testicular pain for several years. He has had intermittent right epididymal orchitis. This has been very bothersome for him and he is strongly desirous for right orchiectomy. He has signed an informed consent after risks were explained. Detailed description of Procedure: The patient was brought to the operating room and kept on the operating room table in the supine position. SCDs were placed on his lower extremities and turned on and functioning during the entire case. Timeout was done by all parties in the room. We all agreed upon the patient's identification and the planned procedures for this patient. General anesthesia was then administered via LMA. Genitalia were sterilely prepped and draped in the usual fashion. I started by making a right transverse hemiscrotal incision with a 15 blade scalpel. Sharp dissection was carried down through the scrotal layers with the needle tip Bovie cautery and sharp dissecting scissors. Tunica vaginalis was opened along the incision line. The right hemiscrotal contents were then delivered. I bluntly dissected out the spermatic cord. I then used 2 Antonella clamps to clamp the spermatic cord proximally. We then used an Endo JASE stapler with a triple line vascular load. We fired the stapler and cut the spermatic cord. The testicle epididymis and right spermatic cord were sent for permanent sections. The staple line looked excellent. We used the Bovie cautery to coagulate the edges. We then released the Antonella clamp and there was no evidence of bleeding whatsoever. The cautery was used to stop any tiny bleeders in the dartos layer of the scrotum. We irrigated the area. We then reinspected the stump of the spermatic cord and it looked excellent. We then closed the dartos layer with 3-0 Vicryl in a running fashion. The skin was closed with 4-0 Vicryl in a running fashion. Fluffs were applied as well as a scrotal support. The patient was then [facility] and wheeled to PACU in stable condition.
== END 2025-09-30 17:55 | disposition home or self-care (01) ==
LOC: SURGOUT 11:07
PROVIDERS: PCP Family Medicine; Visit Provider Urology
PROC: (CPT 54520; principal; 2025-09-30 12:25)
DX: N50.811 Right testicular pain (principal); N45.3 Epididymo-orchitis; N40.0 Benign prostatic hyperplasia without lower urinary tract symptoms; N52.9 Male erectile dysfunction, unspecified; Z79.01 Long term (current) use of anticoagulants; I48.91 Unspecified atrial fibrillation; N41.1 Chronic prostatitis; Z96.649 Presence of unspecified artificial hip joint; G47.33 Obstructive sleep apnea (adult) (pediatric); K21.9 Gastro-esophageal reflux disease without esophagitis
CPT/HCPCS: 54520; 36415; 85610; 85730; 88307; J0131; J0690; J1100; J1885; J2250; J2371; J2405; J2704; J3010